=== PATIENT | female | born 1960 | race Caucasian/White ===

== ENCOUNTER 2023-02-05 08:59 | Outpatient (RCR) | payer OTHER, SELFPAY | END 2023-03-07 10:08 | disposition home or self-care (01) | LOC: PT 08:59 | PROVIDERS: PCP Family Medicine; Visit Provider Student in an Organized Health Care Education/Training Program | DX: M54.50 Low back pain, unspecified (principal) | CPT/HCPCS: 97012; 97110; 97112; 97140; 97162 ==

== ENCOUNTER 2023-03-25 12:40 | Emergency (ER) | payer OTHER, SELFPAY ==
[2023-03-25 12:45] VITALS: BP 148/78; PULSE 115; RESP 20; O2SAT 96; BMI 29.8
--- NOTE | 2023-03-25 12:50 | PC.NURSE ---
pt has had this pain for the last 5 months and states this is a new pain she has had for the last 3 weeks. States it is in hip area and worse when she sits down. pt able to walk but states the pain is worse with movement. pt was able to stand at bedside to put gown on unassisted. no new injury noted that caused this pain.
--- NOTE | 2023-03-25 12:59 | XR_ITS ---
The [place] [id number] Patient Name: REMINGTON SWEENEY MRN: [id number] date: 1960 Sex: F Assigned Patient Location: ER Current Patient Location: ER Accession/Order Number: [id number] Exam Date: 03/25/2023 13:08 Report Date: 03/25/2023 13:35 At the request of: JUSTYN ADKINS Procedure: XR hip RT 2V w/ pelvis EXAM: XR hip RT 2V w/ pelvis HISTORY: pain COMPARISON: None TECHNIQUE: Single view the pelvis, 2 views of the right hip. FINDINGS: Bones are of normal configuration, visualized joints are normally aligned, without fracture or dislocation. Soft tissues are grossly unremarkable. XR/XR hip RT 2V w/ pelvis IMPRESSION: No acute osseous abnormality. Electronically authenticated by: TANO REBOLLEDO Date: 03/25/2023 13:35
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
== END 2023-03-25 14:06 | disposition home or self-care (01) ==
PROVIDERS: Emergency Provider Student in an Organized Health Care Education/Training Program; PCP Family Medicine
DX: M25.551 Pain in right hip (principal); G89.29 Other chronic pain; Z79.899 Other long term (current) drug therapy
CPT/HCPCS: 73502; 99283

== ENCOUNTER 2023-05-03 10:58 | Emergency (ER) | payer OTHER, SELFPAY ==
[2023-05-03 11:03] VITALS: BP 154/109; PULSE 100; RESP 18; TEMP 36.7; O2SAT 97; BMI 28.0
--- NOTE | 2023-05-03 11:26 | XR_ITS ---
The [address] [address] Patient Name: REMINGTON SWEENEY MRN: [id number] date: 1960 Sex: F Assigned Patient Location: ER Current Patient Location: ED.MAIN Accession/Order Number: [id number] Exam Date: 05/03/2023 11:40 Report Date: 05/03/2023 13:07 At the request of: YOU BASS Procedure: XR lumbar spine 2-3V EXAM: XR lumbar spine 2-3V - HISTORY: pain, atraumatic COMPARISON STUDY: Lumbar spine 12/06/2022. FINDINGS: AP, lateral and coned-down views for 3 views obtained. XR/XR lumbar spine 2-3V IMPRESSION: 1. Moderate lumbar dextrocurvature centered at the L2 level again noted unchanged. The Braswell angle is estimated at 20 degrees. 2. Similar multilevel lumbar spondylitic/facet arthritic changes again identified. This is noted from L2-L3 through L5-S1 levels unchanged. 3. There is no acute fracture or subluxation noted. Vacuum disc phenomena formation is noted at L5-S1. Electronically authenticated by: MARIE CUETO Date: 05/03/2023 13:07
[2023-05-03] MEDS: KETOROLAC TROMETHAMINE 30 MG/ML VIAL IVP (11:35)
[2023-05-03] MEDS: ONDANSETRON PF 4 MG/2 ML VIAL IV (11:35)
--- NOTE | 2023-05-03 12:59 | ED.BACK1 ---
HPI - Back Pain/Injury General Chief Complaint: Back Pain/Injury Stated Complaint: BACK PAIN Time Seen by Provider: 05/03/23 11:10 Source: patient Mode of arrival: ambulance History of Present Illness HPI Narrative: 62-year-old female presents for lower back pain. She has a history of ongoing back issues and over the past day or two it seemed to get worse. No trauma. No dysuria or hematuria. The pain is moderate and worse in certain positions. Related Data Home Medications Medication Instructions Recorded Confirmed lithium carbonate 300 mg 300 mg PO TID 03/25/23 03/25/23 tablet,extended release oxcarbazepine 300 mg tablet 300 mg PO DAILY 03/25/23 03/25/23 oxcarbazepine 600 mg tablet 600 mg PO BEDTIME 03/25/23 03/25/23 venlafaxine 225 mg tablet,extended 225 mg PO DAILY 03/25/23 03/25/23 release 24 hr Previous Rx's Medication Instructions Recorded methylprednisolone 4 mg tablets in 4 mg PO DAILY #21 ea 03/25/23 a dose pack (Medrol (Michael)) acetaminophen 300 mg-codeine 30 mg 1 tab PO Q6H PRN pain #20 tabs 05/03/23 tablet cyclobenzaprine 10 mg tablet 10 mg PO TID PRN muscle spasm #20 05/03/23 tabs Allergies Allergy/AdvReac Type Severity Reaction Status Date / Time Penicillins Allergy Severe Verified 03/25/23 12:44 Review of Systems ROS Narrative review of systems Musculoskeletal Reports: back pain PFSH PFSH Social History Smoking status: Never smoker Exam Constitutional Vital Signs, click to edit/add: Last Vital Signs Temp 98.1 F 05/03/23 11:03 Pulse 100 H 05/03/23 11:03 Resp 18 05/03/23 11:03 BP 154/109 H 05/03/23 11:03 Pulse Ox 97 05/03/23 11:03 O2 Del Method Room Air 05/03/23 11:21 Course Vital Signs Vital signs: Vital Signs Temperature 98.1 F 05/03/23 11:03 Pulse Rate 100 H 05/03/23 11:03 Respiratory Rate 18 05/03/23 11:03 Blood Pressure 154/109 H 05/03/23 11:03 Pulse Oximetry 97 05/03/23 11:03 Oxygen Delivery Method Room Air 05/03/23 11:03 Temperature 98.1 F 05/03/23 11:03 Pulse Rate 100 H 05/03/23 11:03 Respiratory Rate 18 05/03/23 11:03 Blood Pressure 154/109 H 05/03/23 11:03 Pulse Oximetry 97 05/03/23 11:03 Oxygen Delivery Method Room Air 05/03/23 11:21 MDM - Back Pain/Injury MDM Narrative Medical decision making narrative: x-ray showed no acute findings. She'll be treated symptomatically and follow-up with her doctor. Treatment diagnosis and follow-up were discussed with the patient. Differential Diagnosis Differential diagnosis: Likely lumbar radiculopathy, sciatica and strain of lumbar region Imaging Data lumbosacral x-rays: Radiologist's impression: degenerative changes, no acute findings Discharge Plan Discharge Chief Complaint: Back Pain/Injury Clinical Impression: Low back pain Patient Disposition: Home, Self-Care Time of Disposition Decision: 12:55 Condition: Good Prescriptions / Home Meds: New cyclobenzaprine 10 mg tablet 10 mg PO TID PRN (Reason: muscle spasm) Qty: 20 0RF acetaminophen-codeine 300-30 mg tablet 1 tab PO Q6H PRN (Reason: pain) Qty: 20 0RF No Action lithium carbonate 300 mg tablet extended release 300 mg PO TID oxcarbazepine 300 mg tablet 300 mg PO DAILY oxcarbazepine 600 mg tablet 600 mg PO BEDTIME venlafaxine 225 mg tablet extended release 24hr 225 mg PO DAILY methylprednisolone [Medrol (Michael)] 4 mg tablets,dose pack 4 mg PO DAILY Qty: 21 0RF Rx Instructions: TAKE PER DOSEPAK INSTRUCTIONS Instructions: Back Pain (ED) Stand Alone Forms: Portal Instructions Referrals: Trista Alvarado MD [Primary Care Provider] - 1 week
[2023-05-03 13:15] VITALS: BP 145/81; PULSE 92; RESP 18; O2SAT 98
== END 2023-05-03 13:38 | disposition home or self-care (01) ==
PROVIDERS: Emergency Provider Emergency Medicine; PCP Family Medicine
DX: M54.50 Low back pain, unspecified (principal); Z79.899 Other long term (current) drug therapy
CPT/HCPCS: 72100; 96374; 96375; 99284

== ENCOUNTER 2023-05-15 09:14 | Outpatient (OUT) | payer OTHER, SELFPAY ==
--- NOTE | 2023-05-15 09:29 | MR_ITS ---
The [place] [id number] Patient Name: REMINGTON SWEENEY MRN: [id number] date: 1960 Sex: F Assigned Patient Location: MRI Current Patient Location: MRI Accession/Order Number: [id number] Exam Date: 05/15/2023 09:45 Report Date: 05/15/2023 15:15 At the request of: SEB BARRY Procedure: MR lumbar spine wo con MR lumbar spine wo con, 05/15/2023 9:45 AM EDT INDICATION: Right Lumbar Radiculopathy M54.16 COMPARISON: This study was compared to the prior x-ray dated 05/03/2023 TECHNIQUE: Multiplanar, multisequential MRI images of lumbar spine were obtained without contrast. FINDINGS: For dictation purposes, the lowest complete disc space in the lumbar spine considered as L5-S1. There is signal abnormality on T1 and T2-weighted images in the vertebral bodies of visualized spine that may suggest bone marrow reconversion in appropriate clinical setting. There is normal physiologic lumbar lordosis with dextroscoliosis centered on L2-L3. The vertebral height is preserved. The conus medullaris is at the level of L1. No signal abnormality within the visualized spinal cord is noted. Level of T12-L1 is unremarkable. No neural foraminal narrowing or canal stenoses at the level of L1-L2 and L2-L3 is noted. At the level of L3-4, there are disc bulge with superimposed right neuroforaminal disc protrusion with mild right neuroforaminal narrowing and no canal stenosis. At the level of L4-5, there are disc bulge with moderate right and mild left neuroforaminal narrowing and mild canal stenosis. There is facet joint arthrosis and ligamentum flavum flavum arthropathy at this level. At the level of L5-S1, there are disc bulge with superimposed right lateral neuroforaminal disc protrusion with mild right neuroforaminal narrowing and no canal stenosis. The paraspinal muscles are unremarkable. MR/MR lumbar spine wo con IMPRESSION: Mild degenerative changes of lumbar spine in particular at L4-L5. Electronically authenticated by: LEANDRO JANSEN Date: 05/15/2023 15:15
== END 2023-05-15 09:15 | disposition home or self-care (01) ==
LOC: MRI 09:15
PROVIDERS: PCP Family Medicine; Visit Provider Family Medicine
DX: M47.26 Other spondylosis with radiculopathy, lumbar region (principal)
CPT/HCPCS: 72148

== ENCOUNTER 2023-06-25 09:50 | Outpatient (OUT) | payer OTHER, SELFPAY ==
[2023-06-25 10:57] LABS: Chol HDL Ratio 3.2; Cholesterol 235 mg/dL (<=200); Estimated GFR (African America >60 (>=60); Estimated GFR (Non-African Ame 52 (>=60); Glucose 103 mg/dL (74-106); HDL Cholesterol 73 mg/dL (40-60); Thyroid Stimulating Hormone 1.955 uIU/mL (0.358-3.740); Triglycerides 163 mg/dL (<=150); VLDL CHOLESTEROL 32.6 mg/dL
[2023-06-26 08:12] LABS: Lithium (Eskalith(R)), Serum 1.2 mmol/L (0.5-1.2)
== END 2023-06-25 09:51 | disposition home or self-care (01) ==
LOC: LAB 09:53
PROVIDERS: PCP Family Medicine; Visit Provider Psychiatry & Neurology Psychiatry
DX: Z79.899 Other long term (current) drug therapy (principal); F31.9 Bipolar disorder, unspecified
CPT/HCPCS: 36415; 80061; 80178; 82565; 82947; 84443

== ENCOUNTER 2023-11-05 10:36 | Outpatient (OUT) | payer OTHER, SELFPAY ==
--- NOTE | 2023-11-05 10:42 | MM_ITS ---
Patient Name: REMINGTON SWEENEY MR#: [id number] : 1960 Exam Date: 11/05/2023 Ordering Doctor: DR Trista Alvarado M.D. CORRECTION Corrected on: 11/07/2023; RADIOLOGY REPORT PROCEDURE: MM TOMOSYNTHESIS DIAGNOSTIC BI COMPARISON: MG MAMM SCREEN 3D TOMY CAD, 11/14/2022. MG MAMM SCREEN 3D TOMY CAD, 11/07/2021. MG MAMM SCREEN 3D TOMY CAD, 11/06/2020. MG MAMM SCREEN 3D TOMY CAD, 09/02/2019. INDICATIONS: Lump on right nipple Calculator Name NCI Breast Cancer Risk Assessment Tool 5 Year Breast Cancer Risk 1.60% Lifetime Breast Cancer Risk 7.90% Personal Breast Cancer No Personal Ovarian Cancer No Treatments None Family Cancers Aunt-maternal with breast cancer at age ~52; Uncle-paternal with colon cancer at age 60. LOCATION: [facility] [place] BREAST COMPOSITION: Heterogeneously dense,which may obscure small masses. FINDINGS: DIAGNOSTIC CATEGORY 4--SUSPICIOUS FOR MALIGNANCY. FINDING DOES NOT EXHIBIT CLASSIC FINDINGS OF BREAST CANCER: RIGHT BREAST: Skin surface marker along medial side of nipple overlying a small 5 mm mass or contour irregularity. Small benign appearing lymph node within the lower-inner quadrant. Ultrasound evaluation demonstrates an 8 mm mass arising from the medial margin of the nipple. Surgical tissue sampling is recommended. LEFT BREAST: No significant suspicious finding. Scattered benign-appearing lymph nodes are present. RECOMMENDATIONS: SURGICAL BIOPSY: RIGHT BREAST PLEASE NOTE: A NORMAL MAMMOGRAM DOES NOT EXCLUDE THE POSSIBILITY OF BREAST CANCER. A CLINICALLY SUSPICIOUS PALPABLE LUMP SHOULD BE BIOPSIED. Dictated by: Marlon Moreira M.D. on 11/07/2023 at 09:17 Approved by: Marlon Moreira M.D. on 11/07/2023 at 09:46
--- NOTE | 2023-11-05 10:43 | US_ITS ---
Patient Name: REMINGTON SWEENEY MR#: [id number] : 1960 Exam Date: 11/05/2023 Ordering Doctor: DR Trista Alvarado M.D. RADIOLOGY REPORT PROCEDURE: US BREAST RT LIMITED COMPARISON: None. INDICATIONS: malignant neoplasm of mass of right breast Z12.31, N63.10 TECHNIQUE: Breast ultrasound was performed, with evaluation focusing only on specific areas of concern. FINDINGS: DIAGNOSTIC CATEGORY 4--SUSPICIOUS FOR MALIGNANCY. FINDING DOES NOT EXHIBIT CLASSIC FINDINGS OF BREAST CANCER: RIGHT BREAST: Within or arising from the medial aspect of the right nipple is an 8 x 7 x 4 mm soft tissue mass versus complex cyst; no posterior shadowing. Color Doppler suggest blood flow into the lesion. Mildly dilated duct 2 mm diameter immediately deep to this area. Small adjacent anechoic benign-appearing cyst, 5 millimeters diameter. Surgical tissue sampling is recommended. RECOMMENDATIONS: SURGICAL BIOPSY: RIGHT BREAST PLEASE NOTE: A NORMAL ULTRASOUND EXAMINATION DOES NOT EXCLUDE THE POSSIBILITY OF BREAST CANCER. A CLINICALLY SUSPICIOUS PALPABLE LUMP SHOULD BE BIOPSIED. Dictated by: Marlon Moreira M.D. on 11/07/2023 at 09:00 Approved by: Marlon Moreira M.D. on 11/07/2023 at 09:10
--- OUTSIDE RECORDS SUMMARY | 2023-11-05 10:57 | XMS_ITS | CCD ---
Author Organization [facility] Care Team Providers Care Control Operator Flow Coat Name Role Phone Gurpreet Calixto Unavailable Trista Barry Unavailable Goldy Glover Unavailable ASHA, DR TRISTA Reyes Attending Unavailable BARRY, DR TRISTA Reyes Consulting Unavailable BARRY, DR TRISTA Reyes Admitting Unavailable BARRY, DR TRISTA Reyes Admitting Unavailable WEST, DR MAKEDA Schneider Consulting Unavailable BARRY, DR TRISTA Reyes Attending Unavailable BARRY, DR TRISTA Reyes Consulting Unavailable LEXIE, REGULO Admitting Unavailable LEXIE, REGULO Attending Unavailable REGULO OWEN Consulting Unavailable ASHA, DR TRISTA Reyes Admitting Unavailable WEST, DR MAKEDA Schneider Consulting Unavailable BARRY, DR TRISTA Reyes Attending Unavailable BARRY, DR TRISTA Reyes Primary Care Unavailable BARRY, DR TRISTA Reyes Consulting Unavailable GOLDY GLOVER Admitting Unavailable GOLDY GLOVER Attending Unavailable ASHA, DR TRISTA Reyes Primary Care Unavailable GURPREET CALIXTO Attending Unavailable GURPREET CALIXTO Admitting Unavailable MD Helio Barry Attending Provider MD Trista Barry Primary Care Provider Helio Barry Unavailable Trista Barry Primary Care Unavailable Helio Barry Admitting Unavailable Helio Barry Attending Unavailable Pan Sanders Admitting Unavailab Pan Mendieta Attending Unavailab claudia NO FAMILY, PHYSICIAN Primary Care Unavailable Allergies Allergy Classification Reported Allergen(s) Allergy Type Date of Onset Reaction(s) Facility (5 sources) Penicillins Drug allergy [employer] Other (8 sources) [facility] Drug Allergy Unknown [facility] Other (8 sources) Substance with penicillin structure and antibacterial mechanism of action (substance) Drug allergy [employer] Other (1 source) metFORMIN Drug Allergy 4 [facility] (1 source) Penicillins Drug allergy (disorder) 4 [facility] Medications Current Medications Medication Drug Class(es) Dates Sig (Normalized) Sig (Original) aspirin 81 mg chewable tablet (7 sources) Platelet Aggregation Inhibitor, Nonsteroidal Anti-inflammatory Drug take 1 tablet by mouth every twenty-four hours Aspirin 81 MG 1 tablet Orally Once a day PRN Active calcium carbonate 1250 mg oral tablet (2 sources) take 1 tablet by mouth every twelve hours Calcium 500 MG 1 tablet with meals Orally Twice a day Active cyclobenzaprine hydrochloride 10 mg oral tablet (4 sources) Muscle Relaxant Cyclobenzaprine HCl 10 MG 1 tablet 3 times a day prn Active Folate (2 sources) Folate Active lithium carbonate 300 mg extended release oral tablet (18 sources) take 3 tablets by mouth at bedtime [place] Carbonate ER 300 MG 3 tablets Orally at HS for 90 days 900-1200 mg as needed Active take 4 tablets by mo uth every twenty-four hours [place] Carbonate ER 300 MG 4 tablets Orally Once a day for 90 days 900-1200 mg as needed Active LORazepam 0.5 mg oral tablet (7 sources) Benzodiazepine Start: 12-13-2021 take 1 tablet by mouth every twenty-four hours Ativan 0.5 MG 1 tablet at bedtime as needed Orally Once a day for 10 days f41.1 December, Active take 1 tablet by feliberto th every twenty-four hours Ativan 0.5 MG 1 tablet at bedtime as needed Orally Once a day for 4 days f41.1 Active Omeprazole (13 sources) Proton Pump Inhibitor Omeprazole OTC Active OXcarbazepine 600 mg oral tablet (19 sources) Anti-epileptic Agent take 1 tablet by mouth once daily, then take 1 tablet by mouth in the morning OXcarbazepine 600 MG take 1 tablet by mouth once daily 1 150mg tablet in the am for 90 days Active propranolol hydrochloride 10 mg oral tablet (7 sources) beta-Adrenergic Vic take 1 tablet by mouth every twelve hours Propranolol HCl 10 MG 1 tablet Orally Twice a day for 90 days Active RA Vitamin D-3 50 MCG (1999) (13 sources) take 1 capsule by mouth once daily RA Vitamin D-3 50 MCG (1999) take 1 capsule by mouth once daily for 90 Active sulfamethoxazole 800 mg / trimethoprim 160 mg oral tablet (2 sources) Dihydrofolate Reductase Inhibitor Antibacterial, Sulfonamide Antimicrobial Start: 023 take 1 tablet by mouth every twelve hours Bactrim DS 800-160 MG 1 tablet Orally Twice a day for 10 day(s) Nov, Active traMADol hydrochloride 50 mg oral tablet (6 sources) Opioid Agonist Start: 023 take 1 tablet by mouth once daily at bedtime as needed traMADol HCl 50 MG 1 tablet as needed Orally Once a day (QHS) for 7 days Mar, Active 24 hr venlafaxine 225 mg extended release oral tablet (13 sources) Serotonin and Norepinephrine Reuptake Inhibitor take 1 tablet by mouth every twenty-four hours Venlafaxine HCl ER 225 MG 1 tablet with food Orally Once a day for 90 days Active Vitamin B12 1000 MCG (2 sources) take 1 tablet by mouth once daily Vitamin B12 1000 MCG 1 tablet Orally Once a day Active Completed/Discontinued Medications Medication Drug Class(es) Dates Sig (Normalized) Sig (Original) cholecalciferol 0.05 mg oral capsule (18 sources) Vitamin D take 1 capsule by mouth once daily Vitamin D3 50 MCG (1999 UT) take 1 capsule by mouth once daily for 90 Not-Taking ciprofloxacin 3 mg/ml / dexamethasone 1 mg/ml otic suspension (13 sources) Corticosteroid, Quinolone Antimicrobial Start: 01-03-2021 Ciprodex 0.3-0.1 % 4 drops into affected ear Otic Twice a day for 7 day(s) December, Not-Taking melatonin 5 mg oral tablet (20 sources) Start: 09-19-2021 take 1 tablet by mouth once daily in the evening Melatonin 5 MG 1 tablet in the evening Orally Once a day for 30 day(s) Sep, Not-Taking Problems Active Problems Problem Classification Problem Date Documented Da te Episodic/Chronic Essential hypertension (3 sources) Essential (primary) hypertension; Translations: [Essential hypertension] Onset: 05-17-2022 Chronic Malaise and fatigue (11 sources) Fatigue; Translations: [Other fatigue] Onset: 05-17-2022 Episodic Menopausal disorders (2 sources) Menopausal and postmenopausal disorders; Translations: [Unspecified menopausal and perimenopausal disorder] Chronic Mood disorders (18 sources) Bipolar disorder; Translations: [Bipolar disorder, unspecified] Onset: 12-13-2021 Resolved: 02-27-2022 Chronic Other aftercare (8 sources) H/O: high risk medication; Translations: [Other longterm (current) drug therapy] Episodic Other aftercare (5 sources) Other intermediate manager (current) drug therapy; Translations: [OTH INTERMEDIATE CURRENT DRUG THERAPY] Onset: 05-17-2022 Episodic Other aftercare (2 sources) Long-term current use of drug therapy; Translations: [Other intermediate manager (current) drug therapy] Episodic Other bone disease and musculoskeletal deformities (2 sources) Adolescent idiopathic scoliosis; Translations: [Adolescent idiopathic scoliosis, lumbosacral region] Chronic Other bone disease and musculoskeletal deformities (1 source) Adolescent idiopathic scoliosis, lumbosacral region Chronic Other circulatory disease (2 sources) Elevated blood-pressure reading without diagnosis of hypertension; Translations: [Elevated blood-pressure reading, without diagnosis of hypertension] Episodic Other nervous system disorders (7 sources) Chronic pain; Translations: [Other chronic pain] Chronic Other nervous system disorders (1 source) Other chronic pain Chronic Other non-traumatic joint disorders (1 source) Pain in right hip Episodic Other nutritional; endocrine; and metabolic disorders (2 sources) Body mass index 25-29 - overweight; Translations: [Body mass index (BMI) 29.0-29.9, adult] Episodic Other screening for suspected conditions (not mental disorders or infectious disease) (4 sources) Encounter for screening mammogram for malignant neoplasm of breast; Translations: [ENC SCR MAMMO MALIG NEOPLASM BREAST] Onset: 11-14-2022 Episodic Otitis media and related conditions (2 sources) Non-suppurative otitis media; Translations: [Unspecified nonsuppurative otitis media, left ear] Episodic Residual codes; unclassified (1 source) Family history of malignant neoplasm of breast; Translations: [FAMILY HX MALIG NEOPLASM OF BREAST] Onset: 11-23-2022 Episodic Residual codes; unclassified (1 source) Family history of malignant neoplasm of digestive organs; Translations: [FAM HX MALIG NEOPLASM DIGESTIV ORGN] Onset: 11-23-2022 Episodic Residual codes; unclassified (2 sources) Tobacco user; Translations: [Tobacco use] Episodic Spondylosis; intervertebral disc disorders; other back problems (8 sources) Solitary sacroiliitis; Translations: [Sacroiliitis, not elsewhere classified] Chronic Spondylosis; intervertebral disc disorders; other back problems (1 source) Radiculopathy, lumbar region Episodic Unclassified (3 sources) LOW BACK PAIN, UNSPECIFIED; Translations: [LOW BACK PAIN, UNSPECIFIED] Onset: 12-12-2022 Unclassified (1 source) Low back pain, unspecified; Translations: [Low back pain, unspecified] Onset: 05-29-2023 Past or Other Problems Problem Classification Problem Date Documented Da te Episodic/Chronic Unclassified (1 source) Lumbar pain M54.50 Unclassified (1 source) Other low back pain M54.59 Unclassified (1 source) LOW BACK PAIN, UNSPECIFIED; Translations: [LOW BACK PAIN, UNSPECIFIED] Onset: 12-06-2022 Results Test Name Value Interpretation Reference Range Facility XR lumbar spine 6V w bending on 05-29-2023 XR lumbar spine 6V w bending [facility] [address] XRay Report Signed Patient: Rain Sweeney MR#: [id number] : 1960 Acct:[id number] Age/Sex: 62 / F ADM Date: 05/29/23 Loc: XD Room: Type: [facility] Attending Dr: Helio Barry MD Copies to: Helio Barry MD Ordering Provider: Helio Barry MD Date of Service: 05/29/23 XR/XR lumbar spine 6V w bending: M54.50 6 views of the Lumbar Spinewith bending HISTORY: Low back injury. Right leg numbness and tingling COMPARISON: 05/03/2023 POSTSURGICAL CHANGES: None BONY ALIGNMENT: Adequate FRACTURE: None DEGENERATIVE CHANGES: Similar moderate multilevel spondylosis and facet degeneration. SOFT TISSUES: Unremarkable BONY MINERALIZATION:[place] te XR/XR lumbar spine 6V w bending IMPRESSION: No hypermobility. Moderate scoliosis. Degenerative change. Impression dictated by: Andrea Nina M.D.05/29/2023 7:00 PM Dictation Location: [place] [address] Transcribed By: [facility] 05/29/231899 Dictated By: Andrea Nina DO 05/29/23 2330 Signed By: 05/29/231899 [facility] XR LSPINE 2_3 VIEWSon 2022 XR LSPINE 2_3 VIEWS EXAMINATION: XR LSPINE 2_3 VIEWS HISTORY: Low back pain COMPARISON: No relevant comparison available. FINDINGS: BONES: Rotatory dextrocurvature of the lumbosacral spine centered at L3-L4. Mild degenerative spondylosis and facet osteoarthropathy DISC SPACES: Mild widespread disc height narrowing. PARASPINOUS: Negative. No paraspinous abnormality is seen. OTHER: Negative. IMPRESSION: Rotatory dextrocurvature with degenerative changes Electronically authenticated by: MAKEDA MÁRQUEZ Date: 2022-12-06 11:24 Normal [facility] LITHIUMon 11-27-2022 [place] (Eskalith(R)), Serum 0.8 mmol/L Normal 0.5-1.2 [facility] Comment on above: Result Comment: A co ncentration of 0.5-0.8 mmol/L is advised for long-term use; concentrations of up to 1.2 mmol/L may be necessary during acute treatment. Detection Limit = 0.1 <0.1 indicates None Detected Performed By: #### L ITHIUM ####[facility] [id number] [place] [address]Dr. Laurel Buckner CREATININEon 11-26-2022 Creatinine [Mass/Vol] 0.97 mg/dL Normal 0.55-1.02 [facility] Comment on above: Performed By: #### T NELLIE NOVAK #### [facility] [address] [place] [address] [address] Laurel Buckner EGFR-AF BENINESE >60 Normal >=60 [facility] Comment on above: Performed By: #### T KISHORE CREA #### [facility] [address] [place] [address] [address] Laurel Buckner EGFR-NON AF BENINESE 59 mL/min/1.73m2 Critically low >=60 [facility] Comment on above: Performed By: #### T KISHORE CREA #### [facility] [address] [place] [address] [address] Laurel Buckner TSHon 11-26-2022 TSH 1.616 uIU/mL Normal 0.358-3.740 [facility] Comment on above: Performed By: #### T SH, CREA #### [facility] [address] [address] [address] Laurel Buckner MG MAMM SCREEN 3D TOMY CADon 11-14-2022 MG MAMM SCREEN 3D TOMY CAD Patient: RAIN SWEENEY Exam Date: 11/14/2022 : 1960 Gender:F Ordering : DR TRISTA BARRY M.D. Admission #: [id number] Family : Order #: [id number] CLICK HERE TO VIEW EXAM RADIOLOGY REPORT PROCEDURE: MAMMOGRAM SCREENING 3D BILATERAL CAD COMPARISON: MG MAMM SCREEN 3D TOMY CAD, 11/06/2020. MG MAMM SCREEN 3D TOMY CAD, 11/07/2021. INDICATIONS: Screening mammography Calculator Name NCI Breast Cancer Risk Assessment Tool 5 Year Breast Cancer Risk 1.60% Lifetime Breast Cancer Risk 8.10% Personal Breast Cancer No Personal Ovarian Cancer No Treatments None Family Cancers Aunt-maternal with breast cancer at age 52; Uncle-paternal with colon cancer at age 60. LOCATION: [facility] BREAST COMPOSITION: Heterogeneously dense,which may obscure small masses. FINDINGS: DIAGNOSTIC CATEGORY 2--BENIGN FINDING. NO CHANGE FROM COMPARISON. This exam includes additional mammographic views for implant evaluation and shows no visible implant abnormality. Scattered benign-appearing calcifications are present. RIGHT BREAST: No significant suspicious finding. LEFT BREAST: No significant suspicious finding. RECOMMENDATIONS: ROUTINE MAMMOGRAM AND CLINICAL EVALUATION IN 12 MONTHS. PLEASE NOTE: A NORMAL MAMMOGRAM DOES NOT EXCLUDE THE POSSIBILITY OF BREAST CANCER. A CLINICALLY SUSPICIOUS PALPABLE LUMP SHOULD BE BIOPSIED. Dictated by: Makeda Márquez MD on 11/14/2022 at 12:01 Approved by: aMkeda Márquez MD on 11/14/2022 at 12:03 Normal [facility] LITHIUMon 05-16-2022 [place] (Eskalith(R)), Serum 0.8 mmol/L Normal 0.5-1.2 [facility] Comment on above: Result Comment: Plas ma concentration of 0.5 - 0.8 mmol/L are advised for long-term use; concentrations of up to 1.2 mmol/L may be necessary during acute treatment. Detection Limit = 0.1 <0.1 indicates None Detected Performed By: #### L ITHIUM #### [facility] [address] [place] [address] [address] Laurel Buckner CBC AUTO DIFFon 05-15-2022 BASO # 0.1 103/ul Normal 0.0-0.1 [facility] Comment on above: Performed By: #### C BC #### [facility] [address] [address] [address] Laurel Buckner Basophils/100 WBC (Bld) 1.0 % Normal 0.2-2.0 [facility] Comment on above: Performed By: #### C BC #### [facility] [address] [place] [address] [address] Laurel Buckner EO # 0.4 103/ul Normal 0.0-0.7 [facility] Comment on above: Performed By: #### C BC #### [facility] [address] [place] [address] Dr. Laurel Buckner Eosinophils/100 WBC (Bld) 5.3 % Normal 0.9-7.0 [facility] Comment on above: Performed By: #### C BC #### [facility] [address] [place] [address] Dr. Laurel Buckner Erythrocyte distribution width (RBC) [Ratio] 13.8 % Normal 11.0-15.0 [facility] Comment on above: Performed By: #### C BC #### [facility] [address] [place] [address] Dr. Laurel Buckner Hematocrit (Bld) [Volume fraction] 46.8 % Normal 36.0-48.0 [facility] Comment on above: Performed By: #### C BC #### [facility] [address] [place] [address] Dr. Laurel Buckner Hemoglobin (Bld) [Mass/Vol] 14.8 g/dL Normal 12.0-16.0 [facility] Comment on above: Performed By: #### C BC #### [facility] [address] [place] [address] Dr. Laurel Buckner IG # 0.07 10e3/ul Critically high 0.00-0.03 [facility] Comment on above: Performed By: #### C BC #### [facility] [address] [place] [address] Dr. Laurel Buckner IG % 1.0 % Critically high 0.0-0.5 [facility] Comment on above: Performed By: #### C BC #### [facility] [address] [place] [address] Dr. Laurel Buckner LYMPH # 1.7 103/ul Normal 1.2-3.8 [facility] Comment on above: Performed By: #### C BC #### [facility] [address] [place] [address] Dr. Laurel Buckner Lymphocytes/100 WBC (Bld) 25.4 % Normal 20.5-60.0 [facility] Comment on above: Performed By: #### C BC #### [facility] [address] [place] [address] Dr. Laurel Buckner MANUAL DIFF REQ NO Normal [facility] Comment on above: Performed By: #### C BC #### [facility] [address] [place] [address] Dr. Laurel Buckner MCH (RBC) [Entitic mass] 29.5 pg Normal 26.7-34.0 [facility] Comment on above: Performed By: #### C BC #### [facility] [address] [place] [address] Dr. Laurel Buckner MCHC (RBC) [Mass/Vol] 31.6 g/dL Normal 29.9-35.2 [facility] Comment on above: Performed By: #### C BC #### [facility] [address] [place] [address] Dr. Laurel Buckner MCV (RBC) [Entitic vol] 93.4 fL Normal 81.0-99.0 [facility] Comment on above: Performed By: #### C BC #### [facility] [address] [place] [address] Dr. Laurel Buckner MONO # 0.6 103/ul Normal 0.3-0.8 [facility] Comment on above: Performed By: #### C BC #### [facility] [address] [place] [address] Dr. Laurel Buckner Monocytes/100 WBC (Bld) 8.4 % Normal 1.7-12.0 [facility] Comment on above: Performed By: #### C BC #### [facility] [address] [place] [address] Dr. Laurel Buckner NEUT # 4.0 103/ul Normal 1.4-6.5 [facility] Comment on above: Performed By: #### C BC #### [facility] [address] [place] [address] Dr. Laurel Buckner Neutrophils/100 WBC (Bld) 58.9 % Normal 43.0-75.0 [facility] Comment on above: Performed By: #### C BC #### [facility] [address] [place] [address] Dr. Laurel Buckner Platelet mean volume (Bld) [Entitic vol] 10.1 fL Normal 9.5-13.5 [facility] Comment on above: Performed By: #### C BC #### [facility] [address] [place] [address] Dr. Laurel Buckner PLT 279 103/ul Normal 150-450 [facility] Comment on above: Result Comment: smea r reviewed Performed By: #### C BC #### [facility] [address] [place] [address] Dr. Laurel Buckner RBC 5.01 106/ul Normal 4.20-5.40 [facility] Comment on above: Performed By: #### C BC #### [facility] [address] [place] [address] Dr. Laurel Buckner WBC 6.8 103/ul Normal 4.0-11.0 [facility] Comment on above: Performed By: #### C BC #### [facility] [address] [place] [address] Dr. Laurel Buckner GLYCOHEMOGLOBIN A1Con 2021 ADA RECOMMENDATION SEE BELOW Normal [facility] Comment on above: Result Comment: ADA RECOMMENDED LIMIT 4.0 - 6.0 ADA THERAPEUTIC TARGET < 7.0 ACTION SUGGESTED > 7.0 Performed By: #### A 1C #### [facility] [address] [address] [address] Laurel Buckner Glucose [Mass/Vol] 97 mg/dL Normal [facility] Comment on above: Performed By: #### A 1C #### [facility] [address] [address] [address] Laurel Buckner HbA1c (Bld) [Mass fraction] 5.0 % Normal 4.5-6.2 [facility] Comment on above: Performed By: #### A 1C #### [facility] [address] [address] [address] Laurel Bucnker LIPID PROFILEon 05-15-2022 CHOL-HDL RATIO NORM SEE BELOW Normal [facility] Comment on above: Result Comment: 3.3 - 4.4 LOW RISK 4.4 - 7.1 AVERAGE RISK 7.1 - 11.0 MODERATE RISK >11.0 HIGH RISK Performed By: #### L IPID, TSH, CMP #### [facility] [address] [address] [address] Laurel Buckner Cholesterol [Mass/Vol] 279 mg/dL Critically high <=200 [facility] Comment on above: Performed By: #### L IPID, TSH, CMP #### [facility] [address] [place] [address] Dr. Laurel Buckner Cholesterol in HDL [Mass/Vol] 76 mg/dL Critically high 40-60 [facility] Comment on above: Performed By: #### L IPID, TSH, CMP #### [facility] [address] [address] [address] Laurel Buckner Cholesterol in LDL [Mass/Vol] 162.8 mg/dL Normal [facility] Comment on above: Performed By: #### L IPID, TSH, CMP #### [facility] [address] [place] [address] Dr. Laurel Buckner Cholesterol.total/Ch olesterol in HDL [Mass ratio] 3.7 {ratio} Normal [facility] Comment on above: Performed By: #### L IPID, TSH, CMP #### [facility] [address] [address] [address] Laurel Buckner HDL NORMAL > or = 60 mg/dl - LO W CARDIOVASCULAR RISK <40 mg/dl - HIGH CARDIOVASCULAR RISK Normal [facility] Comment on above: Performed By: #### L IPID, TSH, CMP #### [facility] [address] [address] [address] Laurel Buckner LDL CALC NORMAL SEE BELOW Normal [facility] Comment on above: Result Comment: <100 mg/dl OPTIMAL 100 - 129 mg/dl NEAR OR ABOVE OPTIMAL 130 - 159 mg/dl BORDERLINE HIGH 160 - 189 mg/dl HIGH >190 mg/dl VERY HIGH Performed By: #### L IPID, TSH, CMP #### [facility] [address] [address] [address] Laurel Buckner Triglyceride [Mass/Vol] 201 mg/dL Critically high <=150 [facility] Comment on above: Performed By: #### L IPID, TSH, CMP #### [facility] [address] [place] [address] Dr. Laurel Buckner VLDL CALC 40.2 mg/dL Normal [facility] Comment on above: Performed By: #### L IPID, TSH, CMP #### [facility] [address] [place] [address] Dr. Laurel Buckner PROF 14(COMP METB)on 022 Albumin [Mass/Vol] 3.6 g/dL Normal 3.4-5.0 [facility] Comment on above: Performed By: #### L IPID, TSH, CMP #### [facility] [address] [address] [address] Laurel Buckner Albumin/Globulin [Mass ratio] 0.9 {ratio} Normal [facility] Comment on above: Performed By: #### L IPID, TSH, CMP #### [facility] [address] [place] [address] Dr. Laurel Buckner ALP [Catalytic activity/Vol] 110 U/L Normal 46-116 [facility] Comment on above: Performed By: #### L IPID, TSH, CMP #### [facility] [address] [place] [address] Dr. Laurel Buckner ALT [Catalytic activity/Vol] 22 U/L Normal 14-59 [facility] Comment on above: Performed By: #### L IPID, TSH, CMP #### [facility] [address] [address] [address] Laurel Buckner Anion gap [Moles/Vol] 10.8 mmol/L Normal [facility] Comment on above: Performed By: #### L IPID, TSH, CMP #### [facility] [address] [address] [address] Laurel Buckner AST [Catalytic activity/Vol] 11 U/L Critically low 15-37 [facility] Comment on above: Performed By: #### L IPID, TSH, CMP #### [facility] [address] [place] [address] Dr. Laurel Buckner Bilirubin [Mass/Vol] 0.3 mg/dL Normal 0.2-1.0 [facility] Comment on above: Performed By: #### L IPID, TSH, CMP #### [facility] [address] [place] [address] Dr. Laurel Buckner Calcium [Mass/Vol] 9.1 mg/dL Normal 8.5-10.1 [facility] Comment on above: Performed By: #### L IPID, TSH, CMP #### [facility] [address] [place] [address] Dr. Laurel Buckner Chloride [Moles/Vol] 103 mmol/L Normal 98-107 [facility] Comment on above: Performed By: #### L IPID, TSH, CMP #### [facility] [address] [place] [address] Dr. Laurel Buckner CO2 [Moles/Vol] 27.9 mmol/L Normal 21.0-32.0 [facility] Comment on above: Performed By: #### L IPID, TSH, CMP #### [facility] [address] [place] [address] Dr. Laurel Buckner Creatinine [Mass/Vol] 0.96 mg/dL Normal 0.55-1.02 [facility] Comment on above: Performed By: #### L IPID, TSH, CMP #### [facility] [address] [address] [address] Laurel Buckner EGFR-AF BENINESE >60 Normal >=60 [facility] Comment on above: Performed By: #### L IPID, TSH, CMP #### [facility] [address] [address] [address] Laurel Buckner EGFR-NON AF BENINESE 59 mL/min/1.73m2 Critically low >=60 [facility] Comment on above: Performed By: #### L IPID, TSH, CMP #### [facility] [address] [address] [address] Laurel Buckner Globulin (S) [Mass/Vol] 3.9 g/dL Normal [facility] Comment on above: Performed By: #### L IPID, TSH, CMP #### [facility] [address] [address] [address] Laurel Buckner Glucose [Mass/Vol] 90 mg/dL Normal 74-106 [facility] Comment on above: Performed By: #### L IPID, TSH, CMP #### [facility] [address] [address] [address] Laurel Buckner Potassium [Moles/Vol] 3.7 mmol/L Normal 3.5-5.1 [facility] Comment on above: Performed By: #### L IPID, TSH, CMP #### [facility] [address] [address] [address] Laurel Buckner Protein [Mass/Vol] 7.5 g/dL Normal 6.4-8.2 [facility] Comment on above: Performed By: #### L IPID, TSH, CMP #### [facility] [address] [address] [address] Laurel Buckner Sodium [Moles/Vol] 138 mmol/L Normal 136-145 [facility] Comment on above: Performed By: #### L IPID, TSH, CMP #### [facility] [address] [address] [address] Laurel Buckner Urea nitrogen [Mass/Vol] 16.0 mg/dL Normal 7.0-18.0 [facility] Comment on above: Performed By: #### L IPID, TSH, CMP #### [facility] [address] [place] [address] Dr. Laurel Buckner Urea nitrogen/Creatinine [Mass ratio] 16.7 mg/mg Normal [facility] Comment on above: Performed By: #### L IPID, TSH, CMP #### [facility] [address] [address] [address] Laurel Buckner TSHon 05-15-2022 TSH 3.094 uIU/mL Normal 0.358-3.740 [facility] Comment on above: Performed By: #### L IPID, TSH, CMP #### [facility] [address] [place] [address] Dr. Laurel Buckner Vital Signs Date Time Vital Sign Value Performing Clinician Facility 05-29-2023 14:00-0400 Body height 170.18 cm Helio Barry Other [facility] Other 05-29-2023 14:00-0400 Body mass index (BMI) [Ratio] 29.44 kg/m2 Helio Barry Other [facility] Other 05-29-2023 14:00-0400 Body weight 85.28 kg Helio Barry Other [facility] Other 05-05-2023 08:30-0400 Body height 170.18 cm Trista Barry Other [facility] Other 05-05-2023 08:30-0400 Body mass index (BMI) [Ratio] 29.44 kg/m2 Trista Barry Other [facility] Other 05-05-2023 08:30-0400 Body weight 85.28 kg Trista Barry Other [facility] Other 05-05-2023 08:30-0400 Diastolic blood pressure 82 mm[Hg] Trista Barry Other [facility] Other 05-05-2023 08:30-0400 Systolic blood pressure 128 mm[Hg] Trista Barry Other [facility] Other 04-01-2023 10:00-0400 Body height 170.18 cm Trista Barry Other [facility] Other 04-01-2023 10:00-0400 Body mass index (BMI) [Ratio] 29.13 kg/m2 Trista Barry Other [facility] Other 04-01-2023 10:00-0400 Body weight 84.37 kg Trista Barry Other [facility] Other 04-01-2023 10:00-0400 Diastolic blood pressure 86 mm[Hg] Trista Barry Other [facility] Other 04-01-2023 10:00-0400 Systolic blood pressure 148 mm[Hg] Trista Barry Other [facility] Other Encounters Encounter Date Encounter Type Care Provider Facility Start: 09-09-2023 ambulatory Pan Macias acility:[facility] Start: 05-30-2023 End: 05-30-2023 ambulatory Helio Barry Other [facility] Other Start: 05-30-2023 Telephone encounter Helio MORIN [employer] Start: 05-29-2023 End: 05-29-2023 ambulatory Trista Barry Facility:[facility] Start: 05-29-2023 Office outpatient ne w 30 minutes Helio MORIN [facility] Start: 05-29-2023 End: 05-29-2023 ambulatory MD Trista Barry Work Phone: [facility] Work Phone: Start: 05-29-2023 End: 05-29-2023 Patient encounter procedure MD Trista Barry Work Phone: [facility] Work Phone: Start: 05-16-2023 End: 05-16-2023 ambulatory Trista Barry Other [facility] Other Start: 05-16-2023 Telephone encounter Trista Barry [facility] Start: 05-05-2023 End: 05-05-2023 ambulatory Trista Barry Other [facility] Other Start: 05-05-2023 Office outpatient visit 15 minutes Trista Barry [facility] Start: 04-07-2023 End: 04-07-2023 ambulatory Trista Barry Other [facility] Other Start: 04-07-2023 Telephone encounter Trista Barry [facility] Start: 04-01-2023 End: 04-01-2023 ambulatory Trista Barry Other [facility] Other Start: 04-01-2023 Office outpatient visit 15 minutes Trista Barry [facility] Start: 12-27-2022 ambulatory GOLDY GLOVER Facility: [facility] Start: 12-23-2022 End: 12-23-2022 ambulatory Goldy Glover Other [facility] Other Start: 12-23-2022 Office outpatient ne w 45 minutes Goldy Glover [facility] Start: 12-06-2022 Telephone encounter Trista Barry [facility] Start: 12-06-2022 End: 12-07-[address] TRISTA BARRY [facility] Other Start: 11-26-2022 End: 11-27-2022 ambulatory REGULO OWEN Facility:[facility] Start: 11-14-2022 End: 11-15-[address] TRISTA BARRY Facility:[facility] Start: 05-17-2022 Encounter for genera l adult medical examination without abnormal findings DR TRISTA BARRY [facility] Start: 05-15-2022 End: 05-16-[address] TRISTA BARRY Facility:[facility] Start: 05-15-2022 End: 05-16-2022 Encounter for general adult medical examination without abnormal findings DR TRISTA BARRY Facility:[facility] Start: 05-14-2022 Adult health examination Trista Barry Other [facility] Other Start: 04-18-2022 End: 04-18-2022 ambulatory Gurpreet Marily Other [facility] Other Start: 04-18-2022 Telephone encounter Gurpreet Marily [facility] Start: 02-27-2022 End: 02-27-2022 ambulatory Gurpreet Marily Other [facility] Other Start: 02-27-2022 Telephone encounter Gurpreet Marily [facility] [employer] Start: 02-05-2022 ambulatory GURPREET MARILY Facility:[facility] Start: 12-13-2021 End: 12-13-2021 ambulatory Gurpreet Marily Other [facility] Other Start: 12-13-2021 Telephone encounter Gurpreet Marily [facility] Start: 09-19-2021 End: 09-19-2021 ambulatory Gurpreet Marily Other [facility] Other Start: 09-19-2021 Telephone encounter Gurpreet Marily [facility] Start: 09-05-2021 End: 09-05-2021 ambulatory Gurpreet Marily Other [facility] Other Start: 09-05-2021 Telephone encounter Gurpreet Marily [facility] Procedures Date Procedure Procedure Detail Performing Clinician Start: 05-29-2023 X-ray of lumbar spin e, six views including bending views MD Trista Barry Work Phone: Screening for malign ant neoplasm of breast Trista Barry Other Screening for malign ant neoplasm of colon Trista Barry Other Immunizations Immunization Date Immunization Notes Care Provider Fa ciliafia 10-12-2022 influenza, injectabl e, quadrivalent, preservative free Trista Barry Other [facility] Other 02-19-2022 diphtheria, tetanus toxoids and acellular pertussis vaccine, unspecified formulation Trista Barry Other [facility] Other 02-19-2022 tetanus toxoid, redu val diphtheria toxoid, and acellular pertussis vaccine, adsorbed Trista Barry Other [facility] Other 08-07-2021 COVID-19 Vaccine Moderna - Documentation Purposes Only Trista Barry Other [facility] Other 05-28-2021 influenza virus vaccine, split virus (incl. purified surface antigen) Trista Barry Other [facility] Other 12-09-2020 COVID-19 Vaccine Moderna - Documentation Purposes Only Trista Barry Other [facility] Other 11-11-2020 COVID-19 Vaccine Moderna - Documentation Purposes Only Trista Barry Other [facility] Other Payers Date Payer Category Payer Unknown [id number] 2.16.84 [id number] 1960 Unknown [id number] 2.16.84 [id number] 1960 Unknown [id number] 2.16.84 [id number] 1960 Unknown [id number] 2.16.84 [id number] 1960 Unknown [id number] 2.16.84 [id number] 1960 Unknown [id number] 2.16.84 [id number] 1957 Private Health Insurance [id number] 1959 Private Health Insurance [id number] Self-pay [facility] [id number] Unknown [id number] 2.16.8 [id number] Social History Date Type Detail Facility Sex Assigned At [facility] Other Start: 1960 Sex Assigned At Female F [facility] Clinical Notes 12-13-2021 to 05-29-2023 Note Date & Type Note Facility 05-29-2023 Evaluation note Encounter Date Diagnosis Assessment Notes May, Adolescent idiopathic scoliosis of lumbosacral spine (ICD-10 - M41.127) Independently reviewed the MRI of the lumbar spine and the plain x-ray of the lumbar spine. This patient complains of basically a L1 radiculopathy down the posterior leg buttock to posterior thigh rarely going past the knee.The patient has exquisite palpable tenderness around the posterior hip joint and negative Brandon's findings. I think this is more of a piriformis gluteus medius tendinous type pain that which reflects in a radiculopathy and a lot of localized pain. I think pain management can help with injections in this area and I sent her to pain management doctor who I personally communicated with and discussed with him the problem. In addition I will send her to orthopedics who may be sympathetic to this problem who may be able to offer some advice. [facility] Other 09-25-2023 Evaluation note* Encounter Date Diagnosis Assessment Notes Treatment Notes Treatment Clinical Notes Apr, Right lumbar radiculopathy (ICD-10 - M54.16) Presently in PT - discharged on 05/02. Requests MRI and referral. [facility] Other 08-22-2023 Evaluation note* Encounter Date Diagnosis Assessment Notes Treatment Notes Treatment Clinical Notes Mar, Right hip pain (ICD-10 - M25.551) PT paper given to pt. Handout for home stretches given as well. Tramadol to help her sleep. She understands it is a controlled substance and could be sedating. [facility] Other 05-15-2023 Evaluation note* Encounter Date Diagnosis Assessment Notes Treatment Notes Treatment Clinical Notes December, Sacroiliitis (ICD-10 - M46.1) Patients primary complaint today is right low lumbar and gluteal pain, which appears consistent with the sacroiliac region upon exam. We will start treatment conservatively. I will refer the patient to physical therapy for further treatment. Should her symptoms persist folllowing therapy, we can consider proceeding with sacroiliac joint injections. We will follow up with the patient in six weeks, sooner if needed. Anatomy of spine discussed in detail with patient in regards to patients condition. December, Other low back pain (ICD-10 - M54.59) December, Other chronic pain (ICD-10 - G89.29) December, Other Above note written by Morris Flor MA, Sand Worker. Edited and approved by Dr. Goldy Glover MD. Medical decision making shows a new problem to me with further workup planned or suggested with the potential for extensive treatment options that were considered with the most applicable given this patient's situation as noted above. Treatment options considered include a combination of physical therapy approaches, pharmacologic management, and interventional procedures. Those most applicable to the patient were discussed at this time. Risk of complications and/or morbidity and mortality is high given that acute and chronic pain poses a threat to life and bodily function if undertreated, poorly treated or with failure to maintain adequate treatment and timely followup. Given the serious and fluctuating nature of pain with extensive consideration for whenever pain changes, there always remains the possibility of prolonged functional impairment requiring constant patient reassessment and high-level medical decision making. The amount and complexity of data reviewed is high given that patient labs, radiology reports, and other test were obtained, reviewed and summarized as applicable from the physician portal and/or outside medical records. Pertinent positive and negative findings were considered in medical decision-making. [facility] Other 04-28-2023 Evaluation note* Encounter Date Diagnosis Assessment Notes Treatment Notes Treatment Clinical Notes Nov, Lumbar pain (ICD-10 - M54.50) [facility] Other 07-20-2022 Evaluation note* Encounter Date Diagnosis Assessment Notes Treatment Notes Treatment Clinical Notes Feb, Bipolar 1 disorder, depressed (ICD-10 - F31.9) [facility] Other 05-05-2022 Evaluation note* Encounter Date Diagnosis Assessment Notes Treatment Notes Treatment Clinical Notes December, Bipolar 1 disorder, depressed (ICD-10 - F31.9) [facility] Other Evaluation noteNo InformationNort Whim Other Evaluation noteNo assessment information available [facility] Work Phone: Hismlyy general Narrative - Reported* Type Description Date Medical History bipolar disorder Medical History anxiety disorder Medical History high blood pressure Surgical History 2 boul ligation 2000 Surgical History stepidectomy 2008 Surgical History sinus surgery 2014 Hospitalization History See surgical hx Hospitalization History [facility] Other Hisvegl general Narrative - Reported* Type Description Date Medical History bipolar disorder Medical History anxiety disorder Medical History high blood pressure Medical History Fatigue Medical History High risk medication use Surgical History 2 boul ligation 2000 Surgical History stepidectomy 2009 Surgical History sinus surgery 2015 Surgical History LUBAL LIGATION Hospitalization History See surgical hx Hospitalization History [facility] Other Hiskgrt general Narrative - Reported* Type Description Date Medical History bipolar disorder Medical History anxiety disorder Medical History high blood pressure Medical History Fatigue Medical History High risk medication use Medical History heart disease Medical History high cholesterol Medical History chronic depression Medical History obesity Surgical History 2 boul ligation 2000 Surgical History stapedectomy 2009 Surgical History sinus surgery 2015 Surgical History LUBAL LIGATION Hospitalization History See surgical hx Hospitalization History [facility] Other Reason for Referral Reason piriformis pain Diagnosis 1 Adolescent idiopathi c scoliosis of lumbosacral spine (M41.127) Referral Organization [facility] Referring Provider First Name Helio Referring Provider Last Name Asha Referring Provider Specialty Neurologica l Surgery Referred Organization [facility] Referred Provider Danny Solares Referred Address [address] [place],[address] Referred Provider Specialty Orthopaedic Surgery Referral Priority Routine Reason Requests Dr. Cadet Br aun - MRI pending. Went to [facility] and had xrays on 05/05. Diagnosis 1 Right lumbar radicul opathy (M54.16) Referral Organization [facility] Beauty Noted lauren Referring Provider First Name Trista Referring Provider Last Name Asha Referring Provider Specialty Family Medi cine Referred Organization [facility] Neurosurgery [facility] Referred Address [address], [place],[address] Referred Provider Specialty Neurological Surgery Referral Priority Routine Reason No preference on off ice - Lumbar pain - recent OV and xray - thanks Diagnosis 1 Lumbar pain (M54.50) Referral Organization [facility] [employer] Not[employer] lauren Referring Provider First Name Trista Referring Provider Last Name Asha Referring Provider Specialty Family Medi cine Referred Organization Unknown Facility Referred Provider Specialty Pain Medicin e Referral Priority Routine Summary Purpose Family History No Family History Records FoundNo Family History Records Found Advance Directives No Advanced Directives Records Found Advance Directive Response Recorded Date/ Time Advance Directives No May 29, 2023 12:42pm Chief Complaint and Reason for Visit Chief Complaint m54.50 Additional Source Comments REASON FOR VISIT (unrecogniz ed section and content) cancelled apptupdateupdate/r efillRefillsreferrallumbar xrayREF BY DR TRISTA BARRY FOR LUMBAR PAINReferral?TBHReferralMRIreferred by Dr. Sarath Barry right lumbar radicNeurosurgery Office Notes INFORMATION SOURCE (unrecogn ized section and content) DATE CREATED AUTHOR 12/25/2022 [facility] DATE CREATED AUTHOR AUTHOR'S ORGANIZ ATION 10/29/2023 [facility] Care Teams (unrecognized sec tion and content) Team Status: Active Member Role Status Dates Trista Barry MD Primary Care Provider Active Team Status: Inactive Member Role Status Dates Helio Barry MD Attending Provider Active Trista Barry MD Primary Care Provider Active Goals (unrecognized section and content) Goals may be documented in a n alternate section FOR RECORDS PERTAINING TO PATIENTS WHO ARE OR HAVE BEEN ENROLLED IN A CHEMICAL DEPENDENCY/SUBSTANCEABUSE PROGRAM, SOME INFORMATION MAY BE OMITTED. This clinical summary was aggregated from multiple sources. Caution should be exercised in using it in the provision of clinical care. This summary normalizes information from multiple sources, and as a consequence, information in this document may materially change the coding, format and clinical context of patient data. In addition, data may be omitted in some cases. CLINICAL DECISIONS SHOULD BE BASED ON THE PRIMARY CLINICAL RECORDS. [facility]. provides no warranty or guarantee of the accuracy or completeness of information in this document.
== END 2023-11-05 10:37 | disposition home or self-care (01) ==
LOC: MAMMO 10:36
PROVIDERS: PCP Family Medicine; Visit Provider Family Medicine
DX: Z12.31 Encounter for screening mammogram for malignant neoplasm of breast (principal); N63.10 Unspecified lump in the right breast, unspecified quadrant; Z80.3 Family history of malignant neoplasm of breast; Z80.0 Family history of malignant neoplasm of digestive organs
CPT/HCPCS: 76642; 77066; G0279

== ENCOUNTER 2023-11-18 12:35 | Outpatient (OUT) | payer OTHER, SELFPAY ==
--- OUTSIDE RECORDS SUMMARY | 2023-11-18 12:43 | XMS_ITS | CCD ---
Author Organization [facility] Care Team Providers Care Home Specialist Name Role Phone Gurpreet Calixto Unavailable Trista Barry Unavailable Goldy Glover Unavailable DR TRISTA BARRY Attending Unavailable ASHA, DR TRISTA Reyes Consulting Unavailable BARRY, DR TRISTA Reyes Admitting Unavailable BARRY, DR TRISTA Reyes Admitting Unavailable WEST, DR MAKEDA Schneider Consulting Unavailable BARRY, DR TRISTA Reyes Attending Unavailable BARRY, DR TRISTA Reyes Consulting Unavailable REGULO OWEN Admitting Unavailable LEXIE, REGULO Attending Unavailable REGULO [...] Admitting Unavailab Pan Mendieta Attending Unavailab claudia ALEXANDRE FAMILY, PHYSICIAN Primary Care Unavailable NO FAMILY, PHYSICIAN Primary Care Provider Unava ilable MD Pan Sanders Attending Provider [phone] Dieter LOCO Attending Unavailable Allergies Allergy Classification Reported Allergen(s) Allergy Type Date of Onset Reaction(s) Facility (6 sources) Penicillins Drug allergy 4 [facility] (10 sources) metFORMIN; Translations: [metFORMIN] Drug Allergy 4 Unknown, Hives [facility] (8 sources) Substance with penicillin structure and antibacterial mechanism of action (substance) Drug allergy [facility] Other (1 source) metFORMIN Drug Allergy 4 [facility] (1 source) Penicillins Drug allergy (disorder) 4 [facility] (1 source) Penicillin; Translations: [penicillin] Drug Allergy [facility] Repository Medications Current Medications Medication Drug Class(es) Dates Sig (Normalized) Sig (Original) aspirin 81 mg chewable tablet (7 sources) Platelet Aggregation Inhibitor, Nonsteroidal Anti-inflammatory Drug take 1 tablet by mouth every twenty-four hours Aspirin 81 MG 1 tablet Orally Once a day PRN Active calcium carbonate 1250 mg oral tablet (3 sources) Start: 10-22-2023 take 1 tablet by mouth twice daily at mealtime Calcium Carbonate Active 1 TAB PO Twice daily October 22, 2023 12:00am FreeTextSi tablet with meals Orally Twice a day; Note: Source Status: Taking; Provider: Asha Cadet ( ) take 1 tablet by mouth every twe lve hours Calcium 500 MG 1 tablet with meals Orally Twice a day Active Folate (2 sources) Folate Active lithium carbonate 300 mg extended release oral tablet (20 sources) Start: 10-22-2023 take 3 tablets by mouth three times daily at bedtime [place] Carbonate Active MG PO Three times daily October 22, 2023 9:33am FreeTextSi tablets Orally at HS; Note: Source Status: [id number] mg as needed; Refills: 0; Provider: Asha Cadet ( ) Start: 10-22-2023 End: 10-22-2023 take 3 tablets by mouth at bedtime [place] Carbonate Discontinued MG PO October 22, 2023 12:00am October 22, 2023 9:34am FreeTextSi tablets Orally at HS; Note: Source Status: [id number] mg as needed; Refills: 0; Provider: Asha Cadet ( ) take 3 tablets by mo uth at bedtime [place] Carbonate ER 300 MG 3 tablets Orally at HS for 90 days 900-1200 mg as needed Active take 4 tablets by mo uth every twenty-four hours [place] Carbonate ER 300 MG 4 tablets Orally [...] a day for 4 days f41.1 Active omeprazole 20 mg delayed release oral capsule (14 sources) Proton Pump Inhibitor Start: 10-22-2023 take 20 mg by mouth once daily Omeprazole Active 20 MG PO Daily October 22, 2023 12:00am Medication Name: Omeprazole; Note: Source Status: TakingOTC; Provider: Asha Cadet ( ) Omeprazole OTC A ctive OXcarbazepine 600 mg oral tablet (20 sources) Anti-epileptic Agent Start: 10-22-2023 take 1 tablet by mouth once daily, then take 1 tablet by mouth in the morning Oxcarbazepine Active 300 MG PO Once October 22, 2023 9:33am FreeTextSig: take 1 tablet by mouth once daily 1 150mg tablet in the am; Note: Source Status: Taking; Refills: 1; Provider: Marily Yoder ( ) Start: 10-22-2023 End: 10-22-2023 take 1 tablet by mouth once daily, then take 1 tablet by mouth in the morning Oxcarbazepine Discontinued 600 MG PO Once October 22, 2023 12:00am October 22, 2023 9:34am FreeTextSig: take 1 tablet by mouth once daily 1 150mg tablet in the am; Note: Source Status: Taking; Refills: 1; Provider: Marily Yoder ( ) take 1 tablet by feliberto th once daily, then take 1 tablet by [...] Dihydrofolate Reductase Inhibitor Antibacterial, Sulfonamide Antimicrobial Start: take 1 tablet by mouth every twelve hours Bactrim DS 800-160 MG 1 tablet Orally Twice a day for 10 day(s) Nov, Active tretinoin 1 mg/ml topical cream (1 source) Retinoid Start: Tretinoin Active 1 APPLIC TOPICAL 6 TIMES PER WEEK 45 October 22, 2023 12:00am 24 hr venlafaxine 225 mg extended release oral tablet (14 sources) Serotonin and Norepinephrine Reuptake Inhibitor Start: take 1 tablet by mouth once daily at mealtime Venlafaxine Active 1 TAB PO Daily October 22, 2023 12:00am FreeTextSi tablet with food Orally Once a day; Note: Source Status: Taking; Provider: Marily Yoder take 1 tablet by feliberto th every twenty-four hours Venlafaxine HCl ER 225 MG 1 tablet with food Orally Once a day for 90 days Active Vitamin B12 1000 MCG (2 sources) take 1 tablet by feliberto th once daily Vitamin B12 1000 MCG 1 tablet Orally Once a day Active Completed/Discontinued Medications Medication Drug Class(es) Dates Sig (Normalized) Sig (Original) cholecalciferol 0.05 mg oral capsule (18 sources) Vitamin D take 1 capsule by mouth once daily Vitamin D3 50 MCG (1999) take 1 capsule by mouth once daily for 90 Not-Taking ciprofloxacin 3 mg/ml / dexamethasone 1 mg/ml otic suspension (13 sources) Corticosteroid, Quinolone Antimicrobial Start: 01-03-2021 Ciprodex 0.3-0.1 % 4 drops into affected ear Otic Twice a day for 7 day(s) December, Not-Taking cyclobenzaprine hydrochloride 10 mg oral tablet (5 sources) Muscle Relaxant Start: 10-22-2023 End: 10-22-2023 take 1 tablet by mouth three times daily as needed Cyclobenzaprine Discontinued 10 MG PO Three times daily October 22, 2023 12:00am October 22, 2023 9:32am FreeTextSi tablet 3 times a day prn; Note: Source Status: Taking; Provider: Asha Cadet ( ) Cyclobenzaprine HCl 10 MG 1 tablet 3 times a day prn Active Iron Fum,Cs-Mwqpu-Wenks,C No.9 (Iron Folate Plus) 125 mg iron- 1 mg capsule (1 source) Start: 10-22-2023 End: 10-22-2023 take 1 capsule by mouth once daily at mealtime Iron Fum,Tj-Khtnx-Nsbau,C No.9 (Iron Folate Plus) 125 mg iron- 1 mg capsule Discontinued 1 CAP PO Daily October 22, 2023 12:00am October 22, 2023 9:33am administer between meals melatonin 5 mg oral tablet (20 sources) Start: 09-19-2021 take 1 tablet by mouth once daily in the evening Melatonin 5 MG 1 tablet in the evening Orally Once a day for 30 day(s) Sep, Not-Taking traMADol hydrochloride 50 mg oral tablet (7 sources) Opioid Agonist Start: 10-22-2023 End: 10-22-2023 take 1 tablet by mouth once daily at bedtime as needed Tramadol Discontinued 50 MG PO Daily October 22, 2023 12:00am October 22, 2023 9:33am FreeTextSi tablet as needed Orally Once a day (QHS); Note: Source Status: Taking; Refills: 0; Provider: Asha Reyes Start: 04-01-2023 take 1 tablet by feliberto th once daily at bedtime as needed traMADol HCl 50 MG 1 tablet as needed Orally Once a day (QHS) for 7 days Mar, Active Problems Active Problems Problem Classification Problem Date [...] disorder, unspecified] Onset: 12-13-2021 Resolved: 02-27-2022 Chronic Nonmalignant breast conditions (2 sources) Breast lump; Translations: [Unspecified lump in the right breast, unspecified quadrant] 10-22-2023 Episodic Other aftercare (8 sources) H/O: high risk medication; Translations: [Other ocean transportation intermediary (current) drug therapy] Episodic Other aftercare (5 sources) Other fpc (current) drug therapy; Translations: [OTH SKILLED NURSING CURRENT DRUG THERAPY] Onset: 05-17-2022 Episodic Other aftercare (2 sources) Long-term current use of drug therapy; Translations: [Other fpc (current) drug therapy] Episodic Other bone disease [...] conditions (not mental disorders or infectious disease) (6 sources) Encounter for screening mammogram for malignant neoplasm of breast; Translations: [Ultrasonography of breast abnormal] Onset: 11-14-2022 Episodic Other skin disorders (1 source) Acne; Translations: [Acne, unspecified] 10-22-2023 Episodic Other skin disorders (1 source) Acne, unspecified; Translations: [Other acne] 10-22-2023 Episodic Otitis media and related conditions (2 [...] Test Name Value Interpretation Reference Range Facility Physician Referralon 024 Physician Referral [id number] Normal [facility] XR lumbar spine 6V w bending on 05-29-2023 XR lumbar spine 6V w bending [facility] [place] [address] XRay Report Signed Patient: Rain Sweeney MR#: [id number] : 1960 Acct:[id number] Age/Sex: 62 / F ADM Date: 05/29/23 Loc: XD Room: Type: [facility] Attending Dr: Helio Barry MD [...] Andrea Nina M.D.05/29/2023 7:00 PM Dictation Location: [place] [address] Transcribed By: [facility] 05/29/231899 Dictated By: Andrea Nina DO 05/29/231853 Signed By: 05/29/231899 Normal [facility] XR LSPINE 2_3 VIEWSon 2022 [...] MAKEDA MÁRQUEZ Date: 2022-12-06 11:24 Normal The LITHIUMon 11-27-2022 [place] (Eskalith(R)), Serum 0.8 mmol/L Normal 0.5-1.2 [facility] Comment on above: Result Comment: A co ncentration of 0.5-0.8 mmol/L is advised for long-term use; concentrations of up to 1.2 mmol/L may be necessary during acute treatment. Detection Limit = 0.1 <0.1 indicates None Detected Performed By: #### L ITHIUM #### [id number] [place], [place] [address]PeDr. Laurel Buckner CREATININEon 11-26-2022 Creatinine [Mass/Vol] 0.97 mg/dL Normal 0.55-1.02 [facility] Comment on above: Performed By: #### T SH, CREA #### [address] [place], [place] [address] Dr. Laurel Buckner EGFR-AF GREEK >60 Normal >=60 [facility] Comment on above: Performed By: #### T SH, CREA #### [address] [place], [place] [address] Dr. Laurel Buckner EGFR-NON AF GREEK 59 mL/min/1.73m2 Critically low >=60 [facility] Comment on above: Performed By: #### T SH, CREA #### [address] [place] [address] [address] Laurel Buckner TSHon 11-26-2022 TSH 1.616 uIU/mL Normal 0.358-3.740 [facility] Comment on above: Performed By: #### T SH, CREA #### [address] [place] [address] [address] Laurel Buckner MG MAMM SCREEN 3D TOMY CADon 11-14-2022 MG MAMM SCREEN 3D TOMY CAD Patient: RAIN SWEENEY Exam Date: 11/14/2022 : 1960 Gender:F Ordering : DR TRISTA BARRY M.D. Admission #: [id number] Family : Order #: [id number] CLICK HERE TO VIEW EXAM RADIOLOGY REPORT [...] colon cancer at age 62. LOCATION: The BREAST COMPOSITION: Heterogeneously dense,which may obscure small [...] MD on 11/14/2022 at 12:01 Approved by: Makeda Márquez MD on 11/14/2022 at 12:03 Normal [facility] LITHIUMon 05-16-2022 [place] (Eskalith(R)), Serum 0.8 mmol/L Normal 0.5-1.2 [facility] Comment on above: Result Comment: Plas ma concentration of 0.5 - 0.8 mmol/L are advised for long-term use; concentrations of up to 1.2 mmol/L may be necessary during acute treatment. Detection Limit = 0.1 <0.1 indicates None Detected Performed By: #### L ITHIUM #### Laboratory [address] [place] [address] Dr. Laurel Buckner CBC AUTO DIFFon 05-15-2022 BASO # 0.1 103/ul Normal 0.0-0.1 [facility] Comment on above: Performed By: #### C BC #### Laboratory [address] [place] [address] Dr. Laurel Buckner Basophils/100 WBC (Bld) 1.0 % Normal 0.2-2.0 [facility] Comment on above: Performed By: #### C BC #### Laboratory [address] [place] [address] Dr. Laurel Buckner EO # 0.4 103/ul Normal 0.0-0.7 [facility] Comment on above: Performed By: #### C BC #### Laboratory [address] [place] [address] Dr. Laurel Buckner Eosinophils/100 WBC (Bld) 5.3 % Normal 0.9-7.0 [facility] Comment on above: Performed By: #### C BC #### Laboratory [address] [place] [address] Dr. Laurel Buckner Erythrocyte distribution width (RBC) [Ratio] 13.8 % Normal 11.0-15.0 [facility] Comment on above: Performed By: #### C BC #### Laboratory [address] [place] [address] Dr. Laurel Buckner Hematocrit (Bld) [Volume fraction] 46.8 % Normal 36.0-48.0 [facility] Comment on above: Performed By: #### C BC #### [address] [place] [address] [address] Laurel Buckner Hemoglobin (Bld) [Mass/Vol] 14.8 g/dL Normal 12.0-16.0 [facility] Comment on above: Performed By: #### C BC #### [address] [place] [address] [address] Laurel Buckner IG # 0.07 10e3/ul Critically high 0.00-0.03 [facility] Comment on above: Performed By: #### C BC #### Laboratory [address] [place] [address] Dr. Laurel Buckner IG % 1.0 % Critically high 0.0-0.5 [facility] Comment on above: Performed By: #### C BC #### Laboratory [address] [place] [address] Dr. Laurel Buckner LYMPH # 1.7 103/ul Normal 1.2-3.8 [facility] Comment on above: Performed By: #### C BC #### Laboratory [address] [place] [address] Dr. Laurel Buckner Lymphocytes/100 WBC (Bld) 25.4 % Normal 20.5-60.0 [facility] Comment on above: Performed By: #### C BC #### Laboratory [address] [place] [address] Dr. Laurel Buckner MANUAL DIFF REQ NO Normal [facility] Comment on above: Performed By: #### C BC #### Laboratory [address] [place] [address] Dr. Laurel Buckner MCH (RBC) [Entitic mass] 29.5 pg Normal 26.7-34.0 [facility] Comment on above: Performed By: #### C BC #### Laboratory [address] [place] [address] Dr. Laurel Buckner MCHC (RBC) [Mass/Vol] 31.6 g/dL Normal 29.9-35.2 [facility] Comment on above: Performed By: #### C BC #### Laboratory [address] [place] [address] [address] Laurel Buckner MCV (RBC) [Entitic vol] 93.4 fL Normal 81.0-99.0 [facility] Comment on above: Performed By: #### C BC #### Laboratory [address] [place] [address] [address] Laurel Buckner MONO # 0.6 103/ul Normal 0.3-0.8 [facility] Comment on above: Performed By: #### C BC #### Laboratory [address] [place] [address] [address] Laurel Buckner Monocytes/100 WBC (Bld) 8.4 % Normal 1.7-12.0 [facility] Comment on above: Performed By: #### C BC #### Laboratory [address] [place] [address] Dr. Laurel Buckner NEUT # 4.0 103/ul Normal 1.4-6.5 [facility] Comment on above: Performed By: #### C BC #### Laboratory [address] [place] [address] Dr. Laurel Buckner Neutrophils/100 WBC (Bld) 58.9 % Normal 43.0-75.0 [facility] Comment on above: Performed By: #### C BC #### Laboratory [address] [place] [address] Dr. Laurel Buckenr Platelet mean volume (Bld) [Entitic vol] 10.1 fL Normal 9.5-13.5 The Comment on above: Performed By: #### C BC #### Laboratory [address] [place] [address] Dr. Laurel Buckner PLT 279 103/ul Normal 150-450 The Comment on above: Result Comment: smea r reviewed Performed By: #### C BC #### Laboratory [address] [place] [address] [address] Laurel Buckner RBC 5.01 106/ul Normal 4.20-5.40 The Comment on above: Performed By: #### C BC #### Laboratory [address] [place] [address] [address] Laurel Buckner WBC 6.8 103/ul Normal 4.0-11.0 [facility] Comment on above: Performed By: #### C BC #### Laboratory [address] [place] [address] [address] Laurel Buckner GLYCOHEMOGLOBIN A1Con 2021 ADA RECOMMENDATION SEE BELOW Normal [facility] Comment on above: Result Comment: ADA RECOMMENDED LIMIT 4.0 - 6.0 ADA THERAPEUTIC TARGET < 7.0 ACTION SUGGESTED > 7.0 Performed By: #### A 1C #### Laboratory [address] [place] [address] Dr. Laurel Buckner Glucose [Mass/Vol] 97 mg/dL Normal [facility] Comment on above: Performed By: #### A 1C #### Laboratory [address] [place] [address] Dr. Laurel Buckner HbA1c (Bld) [Mass fraction] 5.0 % Normal 4.5-6.2 [facility] Comment on above: Performed By: #### A 1C #### Laboratory [address] [place] [address] Dr. Laurel Buckner LIPID PROFILEon 05-15-2022 CHOL-HDL RATIO NORM SEE BELOW Normal [facility] Comment on above: Result Comment: 3.3 - 4.4 LOW RISK 4.4 - 7.1 AVERAGE RISK 7.1 - 11.0 MODERATE RISK >11.0 HIGH RISK Performed By: #### L IPID, TSH, CMP #### Laboratory [address] [place] [address] Dr. Laurel Buckner Cholesterol [Mass/Vol] 279 mg/dL Critically high <=200 [facility] Comment on above: Performed By: #### L IPID, TSH, CMP #### Laboratory [address] [place] [address] Dr. Laurel Buckner Cholesterol in HDL [Mass/Vol] 76 mg/dL Critically high 40-60 [facility] Comment on above: Performed By: #### L IPID, TSH, CMP #### Laboratory [address] [place] [address] [address] Laurel Buckner Cholesterol in LDL [Mass/Vol] 162.8 mg/dL Normal [facility] Comment on above: Performed By: #### L IPID, TSH, CMP #### Laboratory [address] [place] [address] [address] Laurel Buckner Cholesterol.total/Ch olesterol in HDL [Mass ratio] 3.7 {ratio} Normal [facility] Comment on above: Performed By: #### L IPID, TSH, CMP #### Laboratory [address] [place] [address] [address] Laurel Buckner HDL NORMAL > or = 60 mg/dl - LO W CARDIOVASCULAR RISK <40 mg/dl - HIGH CARDIOVASCULAR RISK Normal [facility] Comment on above: Performed By: #### L IPID, TSH, CMP #### Laboratory [address] [place] [address] [address] Laurel Buckner LDL CALC NORMAL SEE BELOW Normal [facility] Comment on above: Result Comment: <100 mg/dl OPTIMAL 100 - 129 mg/dl NEAR OR ABOVE OPTIMAL 130 - 159 mg/dl BORDERLINE HIGH 160 - 189 mg/dl HIGH >190 mg/dl VERY HIGH Performed By: #### L IPID, TSH, CMP #### Laboratory [address] [place] [address] [address] Laurel Buckner Triglyceride [Mass/Vol] 201 mg/dL Critically high <=150 [facility] Comment on above: Performed By: #### L IPID, TSH, CMP #### [address] [place] [address] [address] Laurel Buckner VLDL CALC 40.2 mg/dL Normal [facility] Comment on above: Performed By: #### L IPID, TSH, CMP #### Laboratory [address] [place] [address] [address] Laurel Buckner PROF 14(COMP METB)on 022 Albumin [Mass/Vol] 3.6 g/dL Normal 3.4-5.0 [facility] Comment on above: Performed By: #### L IPID, TSH, CMP #### Laboratory [address] [place] [address] [address] Laurel Buckner Albumin/Globulin [Mass ratio] 0.9 {ratio} Normal [facility] Comment on above: Performed By: #### L IPID, TSH, CMP #### Laboratory [address] [place] [address] [address] Laurel Buckner ALP [Catalytic activity/Vol] 110 U/L Normal 46-116 [facility] Comment on above: Performed By: #### L IPID, TSH, CMP #### Laboratory [address] [place] [address] [address] Laurel Buckner ALT [Catalytic activity/Vol] 22 U/L Normal 14-59 [facility] Comment on above: Performed By: #### L IPID, TSH, CMP #### Laboratory [address] [place] [address] Dr. Laurel Buckner Anion gap [Moles/Vol] 10.8 mmol/L Normal [facility] Comment on above: Performed By: #### L IPID, TSH, CMP #### Laboratory [address] [place] [address] [address] Laurel Buckner AST [Catalytic activity/Vol] 11 U/L Critically low 15-37 [facility] Comment on above: Performed By: #### L IPID, TSH, CMP #### Laboratory [address] [place] [address] Dr. Laurel Buckner Bilirubin [Mass/Vol] 0.3 mg/dL Normal 0.2-1.0 [facility] Comment on above: Performed By: #### L IPID, TSH, CMP #### Laboratory [address] [place] [address] [address] Laurel Buckner Calcium [Mass/Vol] 9.1 mg/dL Normal 8.5-10.1 [facility] Comment on above: Performed By: #### L IPID, TSH, CMP #### Laboratory [address] [place] [address] [address] Laurel Buckner Chloride [Moles/Vol] 103 mmol/L Normal 98-107 [facility] Comment on above: Performed By: #### L IPID, TSH, CMP #### Laboratory [address] [place] [address] [address] Laurel Buckner CO2 [Moles/Vol] 27.9 mmol/L Normal 21.0-32.0 [facility] Comment on above: Performed By: #### L IPID, TSH, CMP #### Laboratory [address] [place] [address] Dr. Laurel Buckner Creatinine [Mass/Vol] 0.96 mg/dL Normal 0.55-1.02 [facility] Comment on above: Performed By: #### L IPID, TSH, CMP #### Laboratory [address] [place] [address] Dr. Laurel Buckner EGFR-AF GREEK >60 Normal >=60 [facility] Comment on above: Performed By: #### L IPID, TSH, CMP #### Laboratory [address] [place] [address] Dr. Laurel Buckner EGFR-NON AF GREEK 59 mL/min/1.73m2 Critically low >=60 [facility] Comment on above: Performed By: #### L IPID, TSH, CMP #### Laboratory [address] [place] [address] Dr. Laurel Buckner Globulin (S) [Mass/Vol] 3.9 g/dL Normal [facility] Comment on above: Performed By: #### L IPID, TSH, CMP #### Laboratory [address] [place] [address] Dr. Laurel Buckner Glucose [Mass/Vol] 90 mg/dL Normal 74-106 [facility] Comment on above: Performed By: #### L IPID, TSH, CMP #### Laboratory [address] [place] [address] Dr. Laurel Buckner Potassium [Moles/Vol] 3.7 mmol/L Normal 3.5-5.1 [facility] Comment on above: Performed By: #### L IPID, TSH, CMP #### Laboratory [address] [place] [address] Dr. Laurel Buckner Protein [Mass/Vol] 7.5 g/dL Normal 6.4-8.2 [facility] Comment on above: Performed By: #### L IPID, TSH, CMP #### Laboratory [address] [place] [address] [address] Laurel Buckner Sodium [Moles/Vol] 138 mmol/L Normal 136-145 [facility] Comment on above: Performed By: #### L IPID, TSH, CMP #### Laboratory [address] [place] [address] [address] Laurel Buckner Urea nitrogen [Mass/Vol] 16.0 mg/dL Normal 7.0-18.0 [facility] Comment on above: Performed By: #### L IPID, TSH, CMP #### Laboratory [address] [place] [address] [address] Laurel Buckner Urea nitrogen/Creatinine [Mass ratio] 16.7 mg/mg Normal [facility] Comment on above: Performed By: #### L IPID, TSH, CMP #### Laboratory [address] [place] [address] [address] Laurel Buckner TSHon 05-15-2022 TSH 3.094 uIU/mL Normal 0.358-3.740 [facility] Comment on above: Performed By: #### L IPID, TSH, CMP #### Laboratory [address] [place] [address] [address] Laurel Buckner Vital Signs Date Time Vital Sign Value Performing Clinician Facility 11-12-2023 10:20-0400 Body height 170.18 cm PHYSICIAN NO [facility] 11-12-2023 10:20-0400 Body mass index (BMI) [Ratio] 28 kg/m2 PHYSICIAN NO [facility] 11-12-2023 10:20-0400 Body weight 81.36 kg PHYSICIAN NO [facility] 11-12-2023 10:20-0400 Diastolic blood pressure 77 mm[Hg] PHYSICIAN NO [facility] 11-12-2023 10:20-0400 Heart rate 124 /min PHYSICIAN NO [facility] 11-12-2023 10:20-0400 Systolic blood pressure 124 mm[Hg] PHYSICIAN NO [facility] 10-22-2023 09:23-0400 Body height 170.18 cm PHYSICIAN NO [facility] 10-22-2023 09:23-0400 Body mass index (BMI) [Ratio] 29.1 kg/m2 PHYSICIAN NO [facility] 10-22-2023 09:23-0400 Body weight 84.36 kg PHYSICIAN NO [facility] 10-22-2023 09:23-0400 Diastolic blood pressure 85 mm[Hg] PHYSICIAN NO [facility] 10-22-2023 09:23-0400 Heart rate 106 /min PHYSICIAN NO [facility] 10-22-2023 09:23-0400 Systolic blood pressure 140 mm[Hg] PHYSICIAN NO [facility] 05-29-2023 14:00-0400 Body height 170.18 cm Helio Barry Other [employer] [facility] [employer] Other 05-29-2023 14:00-0400 Body mass index (BMI) [Ratio] 29.44 kg/m2 Helio Barry Other [employer] Other 05-29-2023 14:00-0400 Body weight 85.28 kg Helio Barry Other [employer] Other 05-05-2023 08:30-0400 Body height 170.18 cm Trista Barry Other [employer] Other 05-05-2023 08:30-0400 Body mass index (BMI) [Ratio] 29.44 kg/m2 Trista Barry Other [employer] Other 05-05-2023 08:30-0400 Body weight 85.28 kg Trista Barry Other [employer] Other 05-05-2023 08:30-0400 Diastolic blood pressure 82 mm[Hg] Trista Barry Other [employer] Other 05-05-2023 08:30-0400 Systolic blood pressure 128 mm[Hg] Trista Barry Other [employer] Other 04-01-2023 10:00-0400 Body height 170.18 cm Trista Barry Other [employer] Other 04-01-2023 10:00-0400 Body mass index (BMI) [Ratio] 29.13 kg/m2 Trista Barry Other [employer] Other 04-01-2023 10:00-0400 Body weight 84.37 kg Trista Barry Other [employer] Other 04-01-2023 10:00-0400 Diastolic blood pressure 86 mm[Hg] Trista Barry Other [employer] Other 04-01-2023 10:00-0400 Systolic blood pressure 148 mm[Hg] Trista Barry Other [employer] Other Encounters Encounter Date Encounter Type Care Provider Facility Start: 11-19-2023 ambulatory Dieter R NILL Facility :[facility] Start: 11-17-2023 ambulatory Dieter NILL Facility:[facility] Start: 11-14-2023 ambulatory Dieter NILL Facility:[facility] Start: 11-12-2023 End: 11-12-2023 ambulatory PHYSICIAN NO [facility] Work Phone: Start: 11-12-2023 End: 11-12-2023 Patient encounter procedure PHYSICIAN NO [facility] Work Phone: Start: 10-22-2023 Patient encounter status PHYSICIAN NO [facility] Start: 10-22-2023 End: 10-22-2023 Encounter for general adult medical examination without abnormal findings PHYSICIAN NO [facility] Start: 10-22-2023 End: 10-22-2023 Patient encounter procedure PHYSICIAN BALDOMERO [facility] Work Phone: Start: 09-09-2023 ambulatory Pan Macias acility:[facility] Start: 09-09-2023 Registered Recurring PHYSICIAN BALDOMERO SPENCE [facility] Start: 05-30-2023 End: 05-30-2023 ambulatory Helio Barry Other [employer] Other Start: 05-30-2023 Telephone encounter Helio Barry [employer] Start: 05-29-2023 End: 05-29-2023 ambulatory Trista Barry Facility:[facility] Start: 05-29-2023 Office outpatient ne w 30 minutes Helio Barry [facility] Start: 05-29-2023 End: 05-29-2023 ambulatory MD Trista Barry Work Phone: [facility] Work Phone: Start: 05-29-2023 End: 05-29-2023 Patient encounter procedure MD Trista Barry Work Phone: [facility] Work Phone: Start: 05-16-2023 End: 05-16-2023 ambulatory Trista Barry Other [employer] Other Start: 05-16-2023 Telephone encounter Trista Barry [facility] Start: 05-05-2023 End: 05-05-2023 ambulatory Trista Barry Other [employer] Other Start: 05-05-2023 Office outpatient visit 15 minutes Trista Barry [facility] Start: 04-07-2023 End: 04-07-2023 ambulatory Trista Barry Other [employer] Other Start: 04-07-2023 Telephone encounter Trista Barry [facility] Start: 04-01-2023 End: 04-01-2023 ambulatory Trista Barry Other [employer] Other Start: 04-01-2023 Office outpatient visit 15 minutes Trista Barry [facility] Start: 12-27-2022 ambulatory GOLDY LINDSEYEARL Facility: [facility] Start: 12-23-2022 End: 12-23-2022 ambulatory Goldy Glover Other [employer] Other Start: 12-23-2022 Office outpatient ne w 45 minutes Goldy Glover [facility] [place] Start: 12-06-2022 Telephone encounter Trista Barry [facility] Start: 12-06-2022 End: 12-07-[address] TRISTA BARRY [employer] Other Start: 11-26-2022 End: 11-27-2022 ambulatory REGULO OWEN Facility:[facility] Start: 11-14-2022 End: 11-15-[address] TRISTA BARRY Facility:[facility] Start: 05-17-2022 Encounter for genera l adult medical examination without abnormal findings DR TRISTA BARRY The Start: 05-15-2022 End: 05-16-[address] TRISTA BARRY Facility:[facility] Start: 05-15-2022 End: 05-16-2022 Encounter for general adult medical examination without abnormal findings DR TRISTA BARRY Facility:[facility] Start: 05-14-2022 Adult health examination Trista Barry Other [employer] Other Start: 04-18-2022 End: 04-18-2022 ambulatory Gurpreet Marily Other [employer] Other Start: 04-18-2022 Telephone encounter Gurpreet Marily [facility] Start: 02-27-2022 End: 02-27-2022 ambulatory Gurpreet Marily Other [employer] Other Start: 02-27-2022 Telephone encounter Gurpreet Marily [facility] [employer] Start: 02-05-2022 ambulatory GURPREET MARILY Facility:[facility] Start: 12-13-2021 End: 12-13-2021 ambulatory Gurpreet [facility] Other [employer] Other Start: 12-13-2021 Telephone encounter Gurpreet [facility] Start: 09-19-2021 End: 09-19-2021 ambulatory Gurpreet [facility] Other [employer] Other Start: 09-19-2021 Telephone encounter Gurpreet [facility] Start: 09-05-2021 End: 09-05-2021 ambulatory Gurpreet [facility] Other [employer] Other Start: 09-05-[facility] Date Procedure Procedure Detail Performing Clinician Start: 05-29-2023 X-ray of lumbar spin e, six views including bending views MD Trista Barry Work Phone: Screening for malign ant neoplasm of breast Trista Barry Other Screening for malign ant neoplasm of colon Trista Barry Other Plan of Treatment Date Care Activity Detail Author Start: 11-12-2023 Patient referral [facility] Work Phone: MG Breast - bilatera l Diagnostic [facility] Patient Education Yearly Physica l for Adults [facility] Work Phone: Patient referral [facility] Work Phone: Immunizations Immunization Date Immunization Notes Care Provider Fa ciliafia 10-12-2022 influenza, injectabl e, quadrivalent, preservative free Trista Barry Other [facility] 02-19-2022 diphtheria, tetanus toxoids and acellular pertussis vaccine, unspecified formulation Trista Barry Other [facility] 02-19-2022 tetanus toxoid, reduced diphtheria toxoid, and acellular pertussis vaccine, adsorbed Trista Asha Other [facility] 08-07-2021 COVID-19 Vaccine Moderna - Documentation Purposes Only Trista Asha Other [facility] 05-28-2021 influenza virus vaccine, split virus (incl. purified surface antigen) Trista Asha Other [employer] Other 05-28-2021 influenza virus vaccine, unspecified formulation PHYSICIAN NO [facility] 12-09-2020 COVID-19 Vaccine Moderna - Documentation Purposes Only Trista Barry Other [facility] 11-11-2020 COVID-19 Vaccine Moderna - Documentation Purposes Only Trista Asha Other [facility] Payers Date Payer Category Payer Unknown [id number] 2.16.84 [id number] 1960 Unknown [id number] 2.16.84 [id number] 1960 Unknown [id number] 2.16.84 [id number] 1960 Unknown [id number] 2.16.84 [id number] 1960 Unknown [id number] 2.16.84 [id number] 1960 Unknown [id number] 2.16.84 [id number] 1960 Unknown [id number] 2.16.8 [id number] 1960 Unknown [id number] 2.16.8 [id number] 1957 Private Health Insurance [id number] 1959 Private Health Insurance [id number] Self-pay [facility] [id number] Private Health Insurance [id number] Unknown [id number] 2.16.8 [id number] Social History Date Type Detail Facility Sex Assigned At [employer] Other Start: 1960 Sex Assigned At Female F [facility] Start: 05-29-2023 [facility] Clinical Notes 12-13-2021 to 05-29-2023 Note Date [...] may be able to offer some advice. [employer] Other 09-25-2023 Evaluation note* Encounter Date Diagnosis Assessment Notes Treatment Notes Treatment Clinical Notes Apr, Right lumbar radiculopathy (ICD-10 - M54.16) Presently in PT - discharged on 05/02. Requests MRI and referral. [employer] Other 08-22-2023 Evaluation note* Encounter Date Diagnosis Assessment Notes Treatment Notes Treatment Clinical Notes Mar, Right hip pain (ICD-10 - M25.551) PT paper given to pt. Handout for home stretches given as well. Tramadol to help her sleep. She understands it is a controlled substance and could be sedating. [employer] Other 05-15-2023 Evaluation note* Encounter Date Diagnosis [...] Above note written by Morris Flor MA, [employer]. Edited and approved by Dr. Goldy Glover [...] negative findings were considered in medical decision-making. [employer] Other 04-28-2023 Evaluation note* Encounter Date Diagnosis Assessment Notes Treatment Notes Treatment Clinical Notes Nov, Lumbar pain (ICD-10 - M54.50) [employer] Other 07-20-2022 Evaluation note* Encounter Date Diagnosis Assessment Notes Treatment Notes Treatment Clinical Notes Feb, Bipolar 1 disorder, depressed (ICD-10 - F31.9) [facility] [employer] Other 05-05-2022 Evaluation note* Encounter Date Diagnosis Assessment Notes Treatment Notes Treatment Clinical Notes December, Bipolar 1 disorder, depressed (ICD-10 - F31.9) [employer] [facility] [employer] Other Evaluation noteNo [employer] Other Evaluation noteNo assessment information available [facility] Work Phone: Evaluation note* Diagnosis Onset Date Resolution Status Acne acute Breast mass, right acute Wellness examination acute Abnormal ultrasound of breast acute [facility] Work Phone: History general Narrative - Reported* Type Description Date Medical History bipolar disorder Medical History anxiety disorder Medical History high blood pressure Surgical History 2 boul ligation 2000 Surgical History stepidectomy 2009 Surgical History sinus surgery 2015 Hospitalization History See surgical hx Hospitalization History [facility] [employer] [facility] Narrative - Reported* Type Description Date Medical History bipolar disorder Medical History anxiety disorder Medical History high blood pressure Medical History Fatigue Medical History High risk medication use Surgical History 2 boul ligation 2000 Surgical History stepidectomy 2009 Surgical History sinus surgery 2015 Surgical History LUBAL LIGATION Hospitalization History See surgical hx Hospitalization History [facility] [employer] Other [employer] general Narrative - Reported* Type Description Date [...] Hospitalization History See surgical hx Hospitalization History [facility] [employer] Other Hospital Discharge instructionsAmbulatory Orders* Referral to General Surgery Time Frame: 11/12/23, Location: None Selected [facility] Work Phone: Reason for Referral Reason piriformis pain Diagnosis 1 Adolescent idiopathi c scoliosis of lumbosacral spine (M41.127) Referral Organization [facility] Referring Provider First Name Helio Referring Provider Last Name Asha Referring Provider Specialty Neurologica l Surgery Referred Organization [facility] [place] [facility] Referred Provider Danny Solares Referred Address [address] [place],[address] Referred Provider Specialty Orthopaedic Surgery Referral Priority Routine Reason Requests Dr. Helio Bass aun - MRI pending. Went to [facility] and had xrays on 05/05. Diagnosis 1 Right lumbar radicul opathy (M54.16) Referral Organization [facility] [employer] Referring Provider First Name Trista Referring Provider Last Name Asha Referring Provider Specialty Family Medi cine Referred Organization [facility] Neurosurgery [facility] Referred Address [address], [place],[address] Referred Provider Specialty Neurological Surgery Referral Priority Routine Reason No preference on off ice - Lumbar pain - recent OV and xray - thanks Diagnosis 1 Lumbar pain (M54.50) Referral Organization [facility] [employer] Referring Provider First Name Trista Referring Provider Last Name Asha Referring Provider Specialty Family Medi cine Referred Organization Unknown Facility Referred Provider Specialty Pain Medicin e Referral Priority Routine Summary Purpose Family History No Family History Records Found Relationship Condition Age at Onset Recorded Date/T patricia daughter Bipolar disorder Unknown Malignant neoplasm Unknown father Bipolar disorder Unknown Unknown Not Specified Unknown Advance Directives No Advanced Directives Records Found Advance Directive Response Recorded Date/ Time Advance Directives No May 29, 2023 12:42pm Chief Complaint and Reason for Visit Chief Complaint m54.50 Chief Complaint [facility] Wellness review ultrasound Reason for Visit Acne Breast mass, right Wellness examination Abnormal ultrasound of breast Additional Source Comments REASON FOR VISIT (unrecogniz ed section and content) cancelled apptupdateupdate/r efillRefillsreferrallumbar xrayREF BY DR TRISTA BARRY FOR LUMBAR PAINReferral?TBHReferralMRIreferred by Dr. Sarath Barry right lumbar radicNeurosurgery Office Notes INFORMATION SOURCE (unrecogn ized section and content) DATE CREATED AUTHOR 12/25/2022 [facility] DATE CREATED AUTHOR AUTHOR'S ORGANIZ ATION 10/29/2023 [facility] DATE CREATED AUTHOR AUTHOR'S ORGANIZ ATION 11/17/2023 [facility] Care Teams (unrecognized sec tion and content) Team Status: Active Member Role Status Dates Trista Barry MD Primary Care Provider Active Team Status: Active Member Role Status Dates PHYSICIAN NO FAMILY Primary Care Provider Active Start: September 09, 2023 Pan Sanders MD Attending Provider Active Start: September 09, 2023 Team Status: Inactive Member Role Status Dates Trista Barry MD Primary Care Provide r, Attending Provider Active Start: October 22, 2023 End: October 22, 2023 Team Status: Inactive Member Role Status Dates Trista Barry MD Primary Care Provide r, Attending Provider Active Start: November 12, 2023 End: November 12, 2023 Team Status: Inactive Member Role Status Dates [...] BE BASED ON THE PRIMARY CLINICAL RECORDS. [facility] [employer] provides no warranty or guarantee of the accuracy or completeness of information in this document.
[2023-11-18 13:00] LABS: Basophils Absolute Auto 0.1 10^3/uL (0.0-0.1); Basophils Percent Auto 0.9 % (0.2-2.0); Eosinophils Absolute Auto 0.3 10^3/uL (0.0-0.7); Eosinophils Percent Auto 4.5 % (0.9-7.0); Hematocrit 46.8 % (36.0-48.0); Immature Granulocytes Abs Auto 0.04 10^3/uL (0.00-0.03); Immature Granulocytes Pct Auto 0.6 % (0.0-0.5); Lymphocytes Absolute Auto 1.7 10^3/uL (1.2-3.8); Lymphocytes Percent Auto 25.3 % (20.5-60.0); Mean Corpuscular HGB Conc 32.1 g/dL (29.9-35.2); Mean Corpuscular Hemoglobin 29.6 pg (26.7-34.0); Mean Corpuscular Volume 92.3 fL (81.0-99.0); Mean Platelet Volume 10.1 fL (9.5-13.5); Monocytes Absolute Auto 0.5 10^3/uL (0.3-0.8); Monocytes Percent Auto 7.4 % (1.7-12.0); Neutrophils Percent Auto 61.3 % (43.0-75.0); Platelet Count 281 10^3/uL (150-450); Red Blood Count 5.07 10^6/uL (4.20-5.40); Red Cell Distribution Width 13.6 % (11.0-15.0); White Blood Count 6.5 10^3/uL (4.0-11.0)
[2023-11-18 13:48] LABS: Estimated Average Glucose 100 mg/dL; Glycohemoglobin A1C 5.1 % (4.5-6.2)
[2023-11-18 14:27] LABS: Alanine Aminotransferase 40 U/L (14-59); Albumin Level 3.7 g/dL (3.4-5.0); Alkaline Phosphatase 83 U/L (46-116); Anion Gap 14.1; Aspartate Amino Transferase 22 U/L (15-37); BUN Creatinine Ratio 8.8; Bilirubin Total 0.4 mg/dL (0.2-1.0); Calcium 9.1 mg/dL (8.5-10.1); Carbon Dioxide 26.6 mmol/L (21.0-32.0); Chloride 104 mmol/L (98-107); Chol HDL Ratio 2.9; Cholesterol 226 mg/dL (<=200); Estimated GFR (African America >60 (>=60); Estimated GFR (Non-African Ame 55 (>=60); Globulin 3.6 g/dL; Glucose 107 mg/dL (74-106); HDL Cholesterol 77 mg/dL (40-60); Potassium 3.7 mmol/L (3.5-5.1); Sodium 141 mmol/L (136-145); Thyroid Stimulating Hormone 1.352 uIU/mL (0.358-3.740); Total Protein 7.3 g/dL (6.4-8.2); Triglycerides 99 mg/dL (<=150); VLDL CHOLESTEROL 19.8 mg/dL
[2023-11-19 04:07] LABS: Lithium (Eskalith(R)), Serum 0.9 mmol/L (0.5-1.2)
== END 2023-11-18 12:36 | disposition home or self-care (01) ==
LOC: LAB 12:36
PROVIDERS: PCP Family Medicine; Visit Provider Psychiatry & Neurology Psychiatry
DX: Z79.899 Other long term (current) drug therapy (principal); F31.9 Bipolar disorder, unspecified
CPT/HCPCS: 36415; 80053; 80061; 80178; 83036; 84443; 85025

== ENCOUNTER 2023-12-15 08:57 | Outpatient (OUT) | payer OTHER, SELFPAY ==
--- NOTE | 2023-12-15 09:04 | ECG_ITS ---
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
--- OUTSIDE RECORDS SUMMARY | 2023-12-15 09:19 | XMS_ITS | CCD ---
Author Organization [facility] Care Team Providers [employer] Name Role Phone Gurpreet Calixto Unavailable Trista Barry Unavailable Goldy Glover Unavailable DR TRISTA BARRY Attending Unavailable ASHA, DR TRISTA Reyes Consulting Unavailable ASHA, DR TRISTA Reyes Admitting Unavailable BARRY, DR TRISTA Reyes Admitting Unavailable WEST, DR MAKEDA Schneider Consulting Unavailable BARRY, DR TRISTA Reyes Attending Unavailable BARRY, DR TRISTA Reyes Consulting Unavailable LEXIE, REGULO Admitting Unavailable LEXIE, REGULO Attending Unavailable REGULO OWEN Consulting Unavailable ASHA, DR TRISTA Reyes Admitting Unavailable WEST, DR MAKEDA Schneider Consulting Unavailable BARRY, DR TRISTA Reyes Attending Unavailable ASHA, DR TRISTA Reyes Primary Care Unavailable ASHA, DR TRISTA Reyes Consulting Unavailable GOLDY GLOVER Admitting Unavailable GOLDY GLOVER Attending Unavailable ASHA, DR TRISTA Reyes Primary Care Unavailable GURPREET CALIXTO Attending Unavailable GURPREET CALIXTO Admitting Unavailable MD Helio Barry Attending Provider MD Trista Barry Primary Care Provider Helio Barry Unavailable NO FAMILY, PHYSICIAN Primary Care Provider Unava MD Pan Gutierrez Attending Provider TRISTA BARRY Primary Care Physician [phone] Dieter LOCO Attending Unavailable Trista Barry Primary Care Unavailable Heloi Barry Attending Unavailable Helio Barry Admitting Unavailable NO FAMILY, PHYSICIAN Primary Care Unavailable Pan Sanders Attending Unavailab le Pan Sanders Admitting Unavailab le Allergies Allergy Classification Reported Allergen(s) Allergy Type Date of Onset Reaction(s) Facility (6 sources) Penicillins Drug allergy 4 [facility] (11 sources) metFORMIN; Translations: [metformin] Drug Allergy 4 [facility] (disorder) [facility] (8 sources) Substance with penicillin structure and antibacterial mechanism of action (substance) Drug [facility] [employer] Other (2 sources) Penicillin; Translations: [penicillin] Drug Allergy Weal (disorder) [facility] [place] (1 source) metFORMIN Drug Allergy 4 [facility] (1 source) Penicillins Drug allergy (disorder) 4 [facility] Medications Current Medications Medication Drug Class(es) Dates Sig (Normalized) Sig (Original) aspirin 81 mg chewable tablet (7 sources) Platelet Aggregation Inhibitor, Nonsteroidal Anti-inflammatory Drug take 1 tablet by mouth every twenty-four hours Aspirin 81 MG 1 tablet Orally Once a day PRN Active Calcium Carbonate (4 sources) Start: 11-17-2023 take 1 tablet by mouth twice daily calcium carbonate = 1 tab(s), Oral, BID, Refills(s) 0 Start Date: 11/17/23 Status: Ordered Start: 10-22-2023 take 1 tablet by feliberto th twice daily at mealtime Calcium Carbonate Active 1 TAB PO Twice daily October 22, 2023 12:00am FreeTextSi tablet with meals Orally Twice a day; Note: Source Status: Taking; Provider: Asha Cadet ( ) take 1 tablet by feliberto th every twelve hours Calcium 500 MG 1 tablet with meals Orally Twice a day Active Folate (2 sources) Folate Active lithium carbonate 300 mg oral tablet (20 sources) Start: 11-17-2023 take 3 tablets by mouth at bedtime lithium 300 mg oral tablet 900 mg = 3 tab(s), Oral, Bedtime, Refills(s) 0 Start Date: 11/17/23 Status: Ordered Start: 10-22-2023 take 3 tablets by mo uth three times daily at bedtime Sumrall Carbonate Active MG PO Three times daily October 22, 2023 9:33am FreeText[employer] tablets Orally at HS; Note: Source Status: [id number] mg as needed; Refills: 0; Provider: Asha Cadet ( ) Start: 10-22-2023 End: 10-22-2023 take 3 tablets by mouth at bedtime Sumrall Carbonate Discontinued MG PO October 22, 2023 12:00am October 22, 2023 9:34am [employer] tablets Orally at HS; Note: Source Status: [id number] mg as needed; Refills: 0; Provider: Asha Cadet ( ) take 3 tablets by mo [facility] at bedtime Sumrall Carbonate ER 300 MG 3 tablets Orally at HS for 90 days 900-1200 mg as needed Active take 4 tablets by mo uth every twenty-four hours Sumrall Carbonate ER 300 MG 4 tablets Orally Once a day for 90 days 900-1200 mg as needed Active LORazepam 0.5 mg oral tablet (7 sources) Benzodiazepine Start: 12-13-2021 take 1 tablet by mouth every twenty-four hours Ativan 0.5 MG 1 tablet at bedtime as needed Orally Once a day for 10 days f41.1 December, Active take 1 tablet by feliberto every twenty-four hours Ativan 0.5 MG 1 tablet at bedtime as needed Orally Once a day for 4 days f41.1 Active omeprazole 20 mg delayed release oral capsule (15 sources) Proton Pump Inhibitor Start: 11-17-2023 take 1 capsule by mouth once daily omeprazole 20 mg Cap-DR 20 mg = 1 cap(s), Oral, Daily, Refills(s) 0 Start Date: 11/17/23 Status: Ordered Start: 10-22-2023 take 20 mg by mouth once daily Omeprazole Active 20 MG PO Daily October 22, 2023 12:00am Medication Name: Omeprazole; Note: Source Status: TakingOTC; Provider: Asha Cadet ( ) Omeprazole OTC A ctive OXcarbazepine 300 mg oral tablet (20 sources) Anti-epileptic Agent Start: 11-17-2023 take 1 tablet by mouth once daily oxcarbazepine 300 mg Tab 300 mg = 1 tab(s), Oral, Daily, Refills(s) 0 Start Date: 11/17/23 Status: Ordered Start: 10-22-2023 take 1 tablet by feliberto once daily, then take 1 tablet by [...] days Active RA Vitamin D-3 50 MCG (1999 [place]) (13 sources) take 1 capsule by mouth [...] Nov, Active tretinoin 1 mg/ml topical cream (2 sources) Retinoid Start: 024 tretinoin Top 0.1% Crm 1 susan, Topical, Once a day (at bedtime), Refill(s) 0 Start Date: 11/17/23 Status: Ordered Start: 10-22-2023 Tretinoin Acti ve 1 APPLIC TOPICAL 6 TIMES PER WEEK 45 October 22, 2023 12:00am venlafaxine (15 sources) Serotonin and Norepinephrine Reuptake Inhibitor Start: 11-17-2023 venlafaxine as directed, Refills(s) 0 Start Date: 11/17/23 Status: Ordered Start: 10-22-2023 take 1 tablet by feliberto th once daily at mealtime Venlafaxine Active 1 [...] 3 times a day prn Active Iron Fum,Or-Nopft-Mwadx,C No.9 (Iron Folate Plus) 125 mg iron- 1 mg capsule (1 source) Start: 10-22-2023 End: 10-22-2023 take 1 capsule by mouth once daily at mealtime Iron Fum,Ad-Exqfp-Oyqzk,C No.9 (Iron Folate Plus) 125 mg iron- [...] Start: 04-01-2023 take 1 tablet by feliberto once daily at bedtime as needed traMADol HCl 50 MG 1 tablet as needed Orally Once a day (QHS) for 7 days Mar, Active Problems Active Problems Problem Classification Problem Date Documented Date Episodic/Chronic Anxiety disorders (1 source) Anxiety 11-17-2023 Chronic Disorders of lipid metabolism (1 source) Hypercholesterolemia 11-17-2023 Chronic Essential hypertension (4 sources) Essential (primary) hypertension; Translations: [Essential hypertension] Onset: 2 11-17-2023 Chronic Malaise and fatigue (11 sources) Fatigue; Translations: [Other fatigue] Onset: 2 Episodic Menopausal disorders (2 sources) Menopausal and postmenopausal disorders; Translations: [Unspecified menopausal and perimenopausal disorder] Chronic Mood disorders (20 sources) Bipolar disorder; Translations: [Bipolar disorder, unspecified] Onset: 2 Resolved: 4 Chronic Nonmalignant breast conditions (4 sources) Breast lump; Translations: [Unspecified lump in the right breast, unspecified quadrant] Onset: 4 10-22-2023 Episodic Other acquired deformities (1 source) Scoliosis deformity of spine 11-17-2023 Chronic Other aftercare (8 sources) H/O: high risk medication; Translations: [Other snf (current) drug therapy] Episodic Other aftercare (5 sources) Other emt intermediate (current) drug therapy; Translations: [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] Onset: 2 Episodic Other aftercare (2 sources) Long-term current use of drug therapy; Translations: [Other snf (current) drug therapy] Episodic Other and ill-defined heart disease (1 source) Heart disease 11-17-2023 Chronic Other bone disease and musculoskeletal deformities (2 [...] mass index (BMI) 29.0-29.9, adult] Episodic Other nutritional; endocrine; and metabolic disorders (1 source) Overweight 11-17-2023 Episodic Other nutritional; endocrine; and metabolic disorders (1 source) Overweight in adulthood with body mass index of 25 or more but less than 30 11-19-2023 Episodic Other screening for suspected conditions (not mental disorders or infectious disease) (6 sources) Encounter for screening mammogram for malignant neoplasm of breast; Translations: [Ultrasonography of breast abnormal] Onset: 3 Episodic Other skin disorders (2 sources) Acne; Translations: [Acne, unspecified] 10-22-2023 Episodic Other skin disorders (1 source) Acne, unspecified; Translations: [Other acne] 10-22-2023 Episodic Otitis media and related conditions (2 sources) Non-suppurative otitis media; Translations: [Unspecified nonsuppurative otitis media, left ear] Episodic Residual codes; unclassified (1 source) Family history of malignant neoplasm of breast; Translations: [FAMILY HX MALIG NEOPLASM OF BREAST] Onset: 3 Episodic Residual codes; unclassified (1 source) Family history of malignant neoplasm of digestive organs; Translations: [FAM HX MALIG NEOPLASM DIGESTIV ORGN] Onset: 3 Episodic Residual codes; unclassified (2 sources) Tobacco user; Translations: [Tobacco use] Episodic Residual codes; unclassified (1 source) Chronic pain 11-17-2023 Episodic Spondylosis; intervertebral disc disorders; other back problems (8 sources) Solitary sacroiliitis; Translations: [Sacroiliitis, not elsewhere classified] Chronic Spondylosis; intervertebral disc disorders; other back problems (1 source) Radiculopathy, lumbar region Episodic Unclassified (3 sources) LOW BACK PAIN, UNSPECIFIED; Translations: [LOW BACK PAIN, UNSPECIFIED] Onset: 3 Unclassified (1 source) Low back pain, unspecified; Translations: [Low back pain, unspecified] Onset: 3 Past or Other Problems Problem Classification Problem Date Documented Da te Episodic/Chronic Unclassified (1 source) Lumbar pain M54.50 Unclassified (1 source) Other low back pain M54.59 Unclassified (1 source) LOW BACK PAIN, UNSPECIFIED; Translations: [LOW BACK PAIN, UNSPECIFIED] Onset: 12-06-2022 Results Test Name Value Interpretation Reference Range Facility Consent for Procedure/Surger yon 11-21-2023 Consent for Procedure/Surgery [id number] .00TIFF [facility] Facesheeton 11-20-2023 Facesheet [id number]#1 .00TIFF [facility] RAD - Ultrasound Reporton RAD - Ultrasound Report [id number] .00TIFF [facility] Ambulatory Visit Summaryon 0 11-19-2023 Ambulatory Visit Summary TESFAYERAIN OTERO :1960 Visit Date:11/19/2023 Ambulatory Visit Instructions Your Diagnosis Lesion of right nipple Your Care Team Attending Physician - BERONICA RAMIREZ, Dieter Masters Primary Care Physician - ASHA RAMIREZ, TRISTA This Is Your Medications List Contact prescribing physician if questions or concerns calcium carbonate lithium (lithium 300 mg oral tablet) omeprazole (omeprazole 20 mg Cap-DR) oxcarbazepine (oxcarbazepine 300 mg Tab) tretinoin topical (tretinoin Top 0.1% Crm) venlafaxine Procedures Performed History of bilateral breast implants, History of nasal sinus surgery, Stapedectomy, Tubal ligation. Discharge Vitals Heart Rate (Peripheral) 72 Respiratory Rate 16 Blood Pressure 132/92 Height 170 cm Height 67 in Weight 81.8 kg Weight 179.96 lb BMI 28.3 Medications What How Much When Instructions Unchanged calcium carbonate 1 Tablets By Mouth 2 times a day Contact prescribing physician if questions or concerns Unchanged lithium (lithium 300 mg oral tablet) 3 Tablets By Mouth At bedtime Contact prescribing physician if questions or concerns Unchanged omeprazole (omeprazole 20 mg Cap-DR) 1 Capsules By Mouth Every day Contact prescribing physician if questions or concerns Unchanged oxcarbazepine (oxcarbazepine 300 mg Tab) 1 Tablets By Mouth Every day Contact prescribing physician if questions or concerns Unchanged tretinoin topical (tretinoin Top 0.1% Crm) 1 Application Topical Once a day (at bedtime) Contact prescribing physician if questions or concerns Unchanged venlafaxine as directed Contact prescribing physician if questions or concerns Allergies metFORMIN (Hives) penicillin (Hives) Problems Ongoing - Any problem that you are currently receiving treatment for. Acne Anxiety BMI 28.0-28.9,adult Chronic depression Chronic pain Essential hypertension Heart disease Hypercholesterolemia Lesion of right nipple Overweight Scoliosis of lumbosacral spine Historical - Any problem that you are no longer receiving treatment for. Bipolar disorder Patient Survey You may receive a survey via text or e-mail asking about your office visit. Please share your experience with us by completing your survey. We appreciate your feedback and thank you for choosing us for your care. Normal [facility] Outside Mammographyon 2023 Outside Mammography [id number] .00TIFF Normal [facility] Physician Referralon 024 Physician Referral [id number] .00TIFF [facility] XR lumbar spine 6V w bending on 05-29-2023 XR lumbar spine 6V w bending [facility] [address] XRay Report Signed Patient: Rain Sweeney MR#: [id number] : 1960 Acct:[id number] Age/Sex: 62 / F ADM Date: 05/29/23 Loc: XD Room: Type: [facility] Attending Dr: Helio Barry MD Copies to: [...] Andrea Nina M.D.05/29/2023 7:00 PM Dictation Location: [place] [address] Transcribed By: [facility] 05/29/231899 Dictated By: Andrea Nina DO 05/29/231853 Signed By: 05/29/231899 Normal [facility] XR LSPINE 2_3 VIEWSon 2022 XR LSPINE [...] MAKEDA MÁRQUEZ Date: 2022-12-06 11:24 Normal [facility] LITHIUMon 11-27-2022 Sumrall (Eskalith(R)), Serum 0.8 mmol/L Normal 0.5-1.2 [facility] Comment on above: Result Comment: A co ncentration of 0.5-0.8 mmol/L is advised for long-term use; concentrations of up to 1.2 mmol/L may be necessary during acute treatment. Detection Limit = 0.1 <0.1 indicates None Detected Performed By: #### L ITHIUM ####[facility] [address] [place], [place] [address]QfDr. Laurel Buckner CREATININEon 11-26-2022 Creatinine [Mass/Vol] 0.97 mg/dL Normal 0.55-1.02 [facility] Comment on above: Performed By: #### T SH, CREA #### [facility] [address] [place] [address] [address] Laurel Buckner EGFR-AF SIERRA LEONEAN >60 Normal >=60 [facility] Comment on above: Performed By: #### T SH, CREA #### [facility] [address] [place] [address] [address] Laurel Buckner EGFR-NON AF SIERRA LEONEAN 59 mL/min/1.73m2 Critically low >=60 [facility] Comment on above: Performed By: #### T SH, CREA #### [facility] [address] [place] [address] [address] Laurel Buckner TSHon 11-26-2022 TSH 1.616 uIU/mL Normal 0.358-3.740 [facility] Comment on above: Performed By: #### T SH, CREA #### [facility] [address] [place] [address] [address] Laurel Buckner MG MAMM SCREEN 3D TOMY CADon 11-14-2022 MG MAMM SCREEN 3D TOMY CAD Patient: RAIN SWEENEY Exam Date: 11/14/2022 : 1960 Gender:F Ordering : DR TRISTA BARRY M.D. Admission #: [id number] Family : Order #: [id number] CLICK HERE TO VIEW EXAM RADIOLOGY REPORT [...] colon cancer at age 62. LOCATION: [facility] BREAST COMPOSITION: Heterogeneously dense,which may obscure small [...] MD on 11/14/2022 at 12:03 Normal [facility] LITHIUMon 05-16-2022 Sumrall (Eskalith(R)), Serum 0.8 mmol/L Normal 0.5-1.2 [facility] Comment on above: Result Comment: Plas ma concentration of 0.5 - 0.8 mmol/L are advised for long-term use; concentrations of up to 1.2 mmol/L may be necessary during acute treatment. Detection Limit = 0.1 <0.1 indicates None Detected Performed By: #### L ITHIUM #### [facility] [address] [place] [address] Dr. Laurel Buckner CBC AUTO DIFFon 05-15-2022 BASO # 0.1 103/ul Normal 0.0-0.1 [facility] Comment on above: Performed By: #### C BC #### [facility] [address] [place] [address] Dr. Laurel Buckner Basophils/100 WBC (Bld) 1.0 % Normal 0.2-2.0 [facility] Comment on above: Performed By: #### C BC #### [facility] [address] [place] [address] Dr. Laurel Buckner EO # 0.4 103/ul Normal 0.0-0.7 [facility] Comment on above: Performed By: #### C BC #### [facility] [address] [place] [address] Dr. Laurel Buckner Eosinophils/100 WBC (Bld) 5.3 % Normal 0.9-7.0 [facility] Comment on above: Performed By: #### C BC #### [facility] [address] [place] [address] Dr. Laurel Buckner Erythrocyte distribution width (RBC) [Ratio] 13.8 % Normal 11.0-15.0 [facility] Comment on above: Performed By: #### C BC #### [facility] [address] [place] [address] Dr. Laurel Buckner Hematocrit (Bld) [Volume fraction] 46.8 % Normal 36.0-48.0 [facility] Comment on above: Performed By: #### C BC #### [facility] [address] [place] [address] Dr. Laurel Buckner Hemoglobin (Bld) [Mass/Vol] 14.8 g/dL Normal 12.0-16.0 [facility] Comment on above: Performed By: #### C BC #### [facility] [address] [place] [address] Dr. Laurel Buckner IG # 0.07 10e3/ul Critically high 0.00-0.03 [facility] Comment on above: Performed By: #### C BC #### [facility] [address] [place] [address] Dr. Laurel Buckner IG % 1.0 % Critically high 0.0-0.[address] [facility] Comment on above: Performed By: #### C BC #### [facility] [address] [place] [address] Dr. Laurel Buckner LYMPH # 1.7 103/ul Normal 1.2-3.8 [facility] Comment on above: Performed By: #### C BC #### [facility] [address] [place] [address] Dr. Laurel Buckner Lymphocytes/100 WBC (Bld) 25.4 % Normal 20.5-60.0 [facility] Comment on above: Performed By: #### C BC #### [facility] [address] [place] [address] Dr. Laurel Buckner MANUAL DIFF REQ NO Normal [facility] Comment on above: Performed By: #### C BC #### [facility] [address] [place] [address] Dr. Laurel Buckner MCH (RBC) [Entitic mass] 29.5 pg Normal 26.7-34.0 [facility] Comment on above: Performed By: #### C BC #### [facility] [address] [place] [address] Dr. Laurel Buckner MCHC (RBC) [Mass/Vol] 31.6 g/dL Normal 29.9-35.2 [facility] Comment on above: Performed By: #### C BC #### [facility] [address] [place] [address] Dr. Laurel Buckner MCV (RBC) [Entitic vol] 93.4 fL Normal 81.0-99.0 [facility] Comment on above: Performed By: #### C BC #### [facility] [address] [place] [address] Dr. Laurel Buckner MONO # 0.6 103/ul Normal 0.3-0.8 [facility] Comment on above: Performed By: #### C BC #### [facility] [address] [place] [address] Dr. Laurel Buckner Monocytes/100 WBC (Bld) 8.4 % Normal 1.7-12.0 [facility] Comment on above: Performed By: #### C BC #### [facility] [address] [place] [address] Dr. Laurel Buckner NEUT # 4.0 103/ul Normal 1.4-6.5 [facility] Comment on above: Performed By: #### C BC #### [facility] [address] [place] [address] Dr. Laurel Buckner Neutrophils/100 WBC (Bld) 58.9 % Normal 43.0-75.0 [facility] Comment on above: Performed By: #### C BC #### [facility] [address] [place] [address] Dr. Laurel Buckner Platelet mean volume (Bld) [Entitic vol] 10.1 fL Normal 9.5-13.5 [facility] Comment on above: Performed By: #### C BC #### [facility] [address] [address] [address] Laurel Buckner PLT 279 103/ul Normal 150-450 [facility] Comment on above: Result Comment: smea r reviewed Performed By: #### C BC #### [facility] [address] [place] [address] [address] Laurel Buckner RBC 5.01 106/ul Normal 4.20-5.40 [facility] Comment on above: Performed By: #### C BC #### [facility] [address] [place] [address] Dr. Laurel Buckner WBC 6.8 103/ul Normal 4.0-11.0 [facility] Comment on above: Performed By: #### C BC #### [facility] [address] [place] [address] Dr. Laurel Buckner GLYCOHEMOGLOBIN A1Con 2021 ADA RECOMMENDATION SEE BELOW Normal [facility] Comment on above: Result Comment: ADA RECOMMENDED LIMIT 4.0 - 6.0 ADA THERAPEUTIC TARGET < 7.0 ACTION SUGGESTED > 7.0 Performed By: #### A 1C #### [facility] [address] [place] [address] Dr. Laurel Buckner Glucose [Mass/Vol] 97 mg/dL Normal [facility] Comment on above: Performed By: #### A 1C #### [facility] [address] [place] [address] Dr. Laurel Buckner HbA1c (Bld) [Mass fraction] 5.0 % Normal 4.5-6.2 [facility] Comment on above: Performed By: #### A 1C #### [facility] [address] [place] [address] Dr. Laurel Buckner LIPID PROFILEon 05-15-2022 CHOL-HDL RATIO NORM SEE BELOW Normal [facility] Comment on above: Result Comment: 3.3 - 4.4 LOW RISK 4.4 - 7.1 AVERAGE RISK 7.1 - 11.0 MODERATE RISK >11.0 HIGH RISK Performed By: #### L IPID, TSH, CMP #### [facility] [address] [place] [address] [address] Laurel Buckner Cholesterol [Mass/Vol] 279 mg/dL Critically high <=200 [facility] Comment on above: Performed By: #### L IPID, TSH, CMP #### [facility] [address] [place] [address] [address] Laurel Buckner Cholesterol in HDL [Mass/Vol] 76 mg/dL Critically high 40-60 [facility] Comment on above: Performed By: #### L IPID, TSH, CMP #### [facility] [address] [place] [address] [address] Laurel Buckner Cholesterol in LDL [Mass/Vol] 162.8 mg/dL Normal [facility] Comment on above: Performed By: #### L IPID, TSH, CMP #### [facility] [address] [address] [address] Laurel Buckner Cholesterol.total/Ch olesterol in HDL [Mass ratio] 3.7 {ratio} Normal [facility] Comment on above: Performed By: #### L IPID, TSH, CMP #### [facility] [address] [place] [address] [address] Laurel Buckner HDL NORMAL > or = 60 mg/dl - LO W CARDIOVASCULAR RISK <40 mg/dl - HIGH CARDIOVASCULAR RISK Normal [facility] Comment on above: Performed By: #### L IPID, TSH, CMP #### [facility] [address] [place] [address] [address] Laurel Buckner LDL CALC NORMAL SEE BELOW Normal [facility] Comment on above: Result Comment: <100 mg/dl OPTIMAL 100 - 129 mg/dl NEAR OR ABOVE OPTIMAL 130 - 159 mg/dl BORDERLINE HIGH 160 - 189 mg/dl HIGH >190 mg/dl VERY HIGH Performed By: #### L IPID, TSH, CMP #### [facility] [address] [address] [address] Laurel Buckner Triglyceride [Mass/Vol] 201 mg/dL Critically high <=150 [facility] Comment on above: Performed By: #### L IPID, TSH, CMP #### [facility] [address] [place] [address] [address] Laurel Buckner VLDL CALC 40.2 mg/dL Normal [facility] Comment on above: Performed By: #### L IPID, TSH, CMP #### [facility] [address] [address] [address] Laurel Buckner PROF 14(COMP METB)on 022 Albumin [Mass/Vol] 3.6 g/dL Normal 3.4-5.0 [facility] Comment on above: Performed By: #### L IPID, TSH, CMP #### [facility] [address] [address] [address] Laurel Buckner Albumin/Globulin [Mass ratio] 0.9 {ratio} Normal [facility] Comment on above: Performed By: #### L IPID, TSH, CMP #### [facility] [address] [place] [address] Dr. Laurel Buckner ALP [Catalytic activity/Vol] 110 U/L Normal 46-116 [facility] Comment on above: Performed By: #### L IPID, TSH, CMP #### [facility] [address] [address] [address] Laurel Buckner ALT [Catalytic activity/Vol] 22 U/L Normal 14-59 [facility] Comment on above: Performed By: #### L IPID, TSH, CMP #### [facility] [address] [address] [address] Laurel Buckner Anion gap [Moles/Vol] 10.8 mmol/L Normal [facility] Comment on above: Performed By: #### L IPID, TSH, CMP #### [facility] [address] [address] [address] Laurel Buckner AST [Catalytic activity/Vol] 11 U/L Critically low 15-37 [facility] Comment on above: Performed By: #### L IPID, TSH, CMP #### [facility] [address] [address] [address] Laurel Buckner Bilirubin [Mass/Vol] 0.3 mg/dL Normal 0.2-1.0 [facility] Comment on above: Performed By: #### L IPID, TSH, CMP #### [facility] [address] [address] [address] Laurel Buckner Calcium [Mass/Vol] 9.1 mg/dL Normal 8.5-10.1 [facility] Comment on above: Performed By: #### L IPID, TSH, CMP #### [facility] [address] [place] [address] Dr. Laurel Buckner Chloride [Moles/Vol] 103 mmol/L Normal 98-107 [facility] Comment on above: Performed By: #### L IPID, TSH, CMP #### [facility] [address] [place] [address] Dr. Laurel Buckner CO2 [Moles/Vol] 27.9 mmol/L Normal 21.0-32.0 [facility] Comment on above: Performed By: #### L IPID, TSH, CMP #### [facility] [address] [place] [address] Dr. Laurel Buckner Creatinine [Mass/Vol] 0.96 mg/dL Normal 0.55-1.02 [facility] Comment on above: Performed By: #### L IPID, TSH, CMP #### [facility] [address] [place] [address] Dr. Laurel Buckner EGFR-AF SIERRA LEONEAN >60 Normal >=60 [facility] Comment on above: Performed By: #### L IPID, TSH, CMP #### [facility] [address] [place] [address] Dr. Laurel Buckner EGFR-NON AF SIERRA LEONEAN 59 mL/min/1.73m2 Critically low >=60 [facility] Comment on above: Performed By: #### L IPID, TSH, CMP #### [facility] [address] [place] [address] Dr. Laurel Buckner Globulin (S) [Mass/Vol] 3.9 g/dL Normal [facility] Comment on above: Performed By: #### L IPID, TSH, CMP #### [facility] [address] [place] [address] Dr. Laurel Buckner Glucose [Mass/Vol] 90 mg/dL Normal 74-106 [facility] Comment on above: Performed By: #### L IPID, TSH, CMP #### [facility] [address] [place] [address] Dr. Laurel Buckner Potassium [Moles/Vol] 3.7 mmol/L Normal 3.5-5.1 [facility] Comment on above: Performed By: #### L IPID, TSH, CMP #### [facility] [address] [place] [address] Dr. Laurel Buckner Protein [Mass/Vol] 7.5 g/dL Normal 6.4-8.2 [facility] Comment on above: Performed By: #### L IPID, TSH, CMP #### [facility] [address] [place] [address] Dr. Laurel Buckner Sodium [Moles/Vol] 138 mmol/L Normal 136-145 [facility] Comment on above: Performed By: #### L IPID, TSH, CMP #### [facility] [address] [place] [address] Dr. Laurel Buckner Urea nitrogen [Mass/Vol] 16.0 mg/dL Normal 7.0-18.0 [facility] Comment on above: Performed By: #### L IPID, TSH, CMP #### [facility] [address] [place] [address] Dr. Laurel Buckner Urea nitrogen/Creatinine [Mass ratio] 16.7 mg/mg Normal [facility] Comment on above: Performed By: #### L IPID, TSH, CMP #### [facility] [address] [place] [address] Dr. Laurel Buckner TSHon 05-15-2022 TSH 3.094 uIU/mL Normal 0.358-3.740 [facility] Comment on above: Performed By: #### L IPID, TSH, CMP #### [facility] [address] [place] [address] Dr. Laurel Buckner Vital Signs Date Time Vital Sign Value Performing Clinician Facility 11-19-2023 13:56-0400 Blood Pressure Location Dieter BERONICA [facility] 11-19-2023 13:56-0400 Diastolic blood pressure 92 mm[Hg] Dieter BUSTOSL [facility] [place] 11-19-2023 13:56-0400 Heart rate 72 /min Dieter NILL [facility] [place] 11-19-2023 13:56-0400 Respiratory rate 16 /min Dieter NILL [facility] [place] 11-19-2023 13:56-0400 Systolic blood pressure 132 mm[Hg] Dieter NILL [facility] [place] 11-12-2023 10:20-0400 Body height 170.18 cm PHYSICIAN NO [facility] 11-12-2023 10:20-0400 Body mass index (BMI) [Ratio] 28 kg/m2 PHYSICIAN NO [facility] 11-12-2023 10:20-0400 Body weight 81.36 kg PHYSICIAN NO [facility] 11-12-2023 10:20-0400 Diastolic blood pressure 77 mm[Hg] PHYSICIAN NO [facility] 11-12-2023 10:20-0400 Heart rate 124 /min PHYSICIAN NO [facility] 11-12-2023 10:20-0400 Systolic blood pressure 124 mm[Hg] PHYSICIAN NO [facility] 10-22-2023 09:23-0400 Body height 170.18 cm PHYSICIAN NO [facility] 10-22-2023 09:23-0400 Body mass index (BMI) [Ratio] 29.1 kg/m2 PHYSICIAN NO [facility] 10-22-2023 09:23-0400 Body weight 84.36 kg PHYSICIAN NO [facility] 10-22-2023 09:23-0400 Diastolic blood pressure 85 mm[Hg] PHYSICIAN NO [facility] 10-22-2023 09:23-0400 Heart rate 106 /min PHYSICIAN NO [facility] 10-22-2023 09:23-0400 Systolic blood pressure 140 mm[Hg] PHYSICIAN NO [facility] 05-29-2023 14:00-0400 Body height 170.18 cm Helio Barry Other [employer] Other 05-29-2023 14:00-0400 Body mass index (BMI) [Ratio] 29.44 kg/m2 Helio Barry Other [employer] Other 05-29-2023 14:00-0400 Body weight 85.28 kg Helio Barry Other [employer] Other 05-05-2023 08:30-0400 Body height 170.18 cm Trista Barry Other [employer] Other 05-05-2023 08:30-0400 Body mass index (BMI) [Ratio] 29.44 kg/m2 Trista Barry Other [employer] Other 05-05-2023 08:30-0400 Body weight 85.28 kg Trista Barry Other [employer] Other 05-05-2023 08:30-0400 Diastolic blood pressure 82 mm[Hg] Trista Barry Other [employer] Other 05-05-2023 08:30-0400 Systolic blood pressure 128 mm[Hg] Trista Barry Other [employer] Other 04-01-2023 10:00-0400 Body height 170.18 cm Trista Barry Other [employer] Other 04-01-2023 10:00-0400 Body mass index (BMI) [Ratio] 29.13 kg/m2 Trista Barry Other [employer] Other 04-01-2023 10:00-0400 Body weight 84.37 kg Trista Barry Other [employer] Other 04-01-2023 10:00-0400 Diastolic blood pressure 86 mm[Hg] Trista Barry Other [employer] Other 04-01-2023 10:00-0400 Systolic blood pressure 148 mm[Hg] Trista Barry Other [employer] Other Encounters Encounter Date Encounter Type Care Provider Facility Start: 11-19-2023 End: 11-20-2023 ambulatory Dieter R NILL Facility:[facility] Start: 11-19-2023 End: 11-19-2023 Patient encounter procedure Dieter R NILL [facility] Start: 11-17-2023 ambulatory Dieter NILL Facility:[facility] Start: 11-14-2023 ambulatory Dieter NILL Facility:[facility] Start: 11-12-2023 End: 11-12-2023 ambulatory PHYSICIAN NO [facility] Work Phone: Start: 11-12-2023 End: 11-12-2023 Patient encounter procedure PHYSICIAN NO [facility] Work Phone: Start: 11-04-2023 ambulatory PHYSICIAN NO [facility] ility:[facility] Start: 10-22-2023 Patient encounter status PHYSICIAN NO [facility] Start: 10-22-2023 End: 10-22-2023 Encounter for general adult medical examination without abnormal findings PHYSICIAN NO [facility] Start: 10-22-2023 End: 10-22-2023 Patient encounter procedure PHYSICIAN NO [facility] Work Phone: Start: 09-09-2023 Registered Recurring PHYSICIAN NO RONNIE JORDY [facility] Start: 05-30-2023 End: 05-30-2023 ambulatory Helio Barry Other [employer] Other Start: 05-30-2023 Telephone encounter Helio Barry [facility] [employer] Start: 05-29-2023 End: 05-29-2023 ambulatory Trista Barry Facility:[facility] Start: 05-29-2023 Office outpatient ne w 30 minutes Helio Barry [facility] Start: 05-29-2023 End: 05-29-2023 ambulatory MD Trista Barry Work Phone: [facility] Work Phone: Start: 05-29-2023 End: 05-29-2023 Patient encounter procedure MD Trista Barry Work Phone: [facility] Work Phone: Start: 05-16-2023 End: 05-16-2023 ambulatory Trista Barry Other [employer] Other Start: 05-16-2023 Telephone encounter Trista Barry [facility] Start: 05-05-2023 End: 05-05-2023 ambulatory Trista Barry Other [employer] Other Start: 05-05-2023 Office outpatient vi sit 15 minutes Trista Barry [facility] Start: 04-07-2023 End: 04-07-2023 ambulatory Trista Barry Other [employer] Other Start: 04-07-2023 Telephone encounter Trista Barry [facility] Start: 04-01-2023 End: 04-01-2023 ambulatory Trista Barry Other [employer] Other Start: 04-01-2023 Office outpatient vi sit 15 minutes Trista Barry [facility] Start: 12-27-2022 ambulatory GOLDY GLOVER Facility: Start: 12-23-2022 End: 12-23-2022 ambulatory Goldy Glover Other [employer] Other Start: 12-23-2022 Office outpatient ne w 45 minutes Goldy Glover [facility] [place] Start: 12-06-2022 Telephone encounter Trista MORIN [facility] Start: 12-06-2022 End: 12-07-[address] TRISTA BARRY [employer] Other Start: 11-26-2022 End: 11-27-2022 ambulatory REGULO OWEN Facility:[facility] Start: 11-14-2022 End: 11-15-[address] TRISTA BARRY Facility:[facility] Start: 05-17-2022 Encounter for genera l adult medical examination without abnormal findings DR TRISTA BARRY [facility] Start: 05-15-2022 End: 05-16-[address] TRISTA BARRY Facility:[facility] Start: 05-15-2022 End: 05-16-2022 Encounter for general adult medical examination without abnormal findings DR TRISTA BARRY Facility:[facility] Start: 05-14-2022 Adult health examination Trista Barry Other [employer] Other Start: 04-18-2022 End: 04-18-2022 ambulatory Gurpreet Marily Other [employer] Other Start: 04-18-2022 Telephone encounter Gurpreet Marily [facility] Start: 02-27-2022 End: 02-27-2022 ambulatory Gurpreet Marily Other [employer] Other Start: 02-27-2022 Telephone encounter Gurpreet Marily [facility] [employer] Start: 02-05-2022 ambulatory GURPREET MARILY Facility:[facility] Start: 12-13-2021 End: 12-13-2021 ambulatory Gurpreet Marily Other [employer] Other Start: 12-13-2021 Telephone encounter Gurpreet Marily [facility] Start: 09-19-2021 End: 09-19-2021 ambulatory Gurpreet Marily Other [employer] Other Start: 09-19-2021 Telephone encounter Gurpreet [facility] Start: 09-05-2021 End: 09-05-2021 ambulatory [facility] Other [facility] [employer] Other Start: 09-05-20[facility] Date Procedure Procedure Detail Performing Clinician Start: 05-29-2023 X-ray of lumbar spin e, six views including bending views MD Trista Barry Work Phone: History of bilateral breast implants Dieter LOCO History of nasal sin us surgery Dieter LOCO Ligation of fallopian tube Sarath barksdale BERONICA Screening for malign ant neoplasm of breast Trista Barry Other Screening for malign ant neoplasm of colon Trista Barry Other Stapedectomy Dieter LOCO Plan of Treatment Date Care Activity Detail Author Start: 11-12-2023 Patient referral [facility] Work Phone: MG Breast - bilatera l Diagnostic [facility] Patient Education Yearly Physica l for Adults [facility] Work Phone: Patient referral [facility] Work Phone: Immunizations Immunization Date Immunization Notes Care Provider Ronnie bran 10-12-2022 influenza virus vaccine, unspecified formulation Dieter LOCO [facility] [place] 10-12-2022 influenza, injectabl e, quadrivalent, preservative free Trista Barry Other [facility] 02-19-2022 diphtheria, tetanus toxoids and acellular pertussis vaccine, unspecified formulation Trista Barry Other [facility] 02-19-2022 tetanus toxoid, reduced diphtheria toxoid, and acellular pertussis vaccine, adsorbed Trista Barry Other [facility] 08-07-2021 COVID-19 Vaccine Moderna - Documentation Purposes Only Trista Barry Other [facility] 05-28-2021 influenza virus vaccine, split virus (incl. purified surface antigen) Trista Asha Other [employer] Other 05-28-2021 influenza virus vaccine, unspecified formulation PHYSICIAN NO FAMILY [facility] 12-09-2020 COVID-19 Vaccine Moderna - Documentation Purposes Only Trista Barry Other [facility] 11-11-2020 COVID-19 Vaccine Moderna - Documentation Purposes Only Trista Barry Other [facility] Payers Date Payer Category Payer Unknown [id number] 2.16.84 [id number] 1960 Unknown [id number] 2.16.84 [id number] 1960 Unknown [id number] 2.16.84 [id number] 1962 Unknown [id number] 2.16.84 [id number] 1962 Unknown [id number] 2.16.84 [id number] 1962 Unknown [id number] 2.16.84 [id number] 1962 Unknown [id number] 2.16.8 [id number] 1962 Unknown [id number] 2.16.8 [id number] 1959 Private Health Insurance [id number] 1959 Private Health Insurance [id number] Self-pay [facility] [id number] Private Health Insurance [id number] Unknown [id number] 2.16.8 [id number] Social History Date Type Detail Facility Sex Assigned At [facility] Start: 1960 Sex Assigned At Female F [facility] Start: 05-29-2023 End: 11-19-2023 Tobacco smoking status OHIS Never smoked tobacco (finding) [facility] Tobacco smoking status Never Gener al Surgery [facility] Functional Status Date Assessment Result Facility 11-19-2023 Functional Status N/A General Guy rgery [facility] Clinical Notes 12-13-2021 to 11-19-2023 Note Date & Type Note Facility 11-19-2023 Note Chief Complaint consultation for abnormal breast US HPI Staff 63 year old female presents on consultation from Dr. Barry for cat 4 breast US. Reports right nipple mass/lesion x 6 months. Reports gradually increasing in size. Denies pain, nipple inversion or discharge. No known family history of breast cancer. History of Present Illness 63 yo female with h/o htn, hyperlipidemia, CAD, anxiety/depression, referred for right nipple skin lesion; normal mammograms, right breast US with 8 x 7 x 4 mm mass/complex cyst of medial right nipple; patient reports nipple lesion increasing in size since she first noticed it 6 months ago; no asa or NSAID use; no tobacco use. Review of Systems PHQ Score Initial Depression Screen Score: 0 SCORE ROS - Provider Constitutional: no fever, no sweats, no weight loss. Eyes: no glasses, no blurred vision, no visual loss. ENMT: no dentures, no hoarseness, no swallowing difficulties, no hearing loss, no ear infection(s), no nose bleeds. Cardiovascular: normal blood pressure, no chest pain, regular heartbeat, no heart murmur. Respiratory: no shortness of breath, no cough, no asthma, no wheezing. Gastrointestinal: no nausea, no vomiting, no diarrhea, no constipation, no blood in stool, no change in bowel habits, no abdominal pain, no hepatitis. Genitourinary: no kidney stones, no urine infection, no dysuria. Musculoskeletal: no pain, no weakness. Skin: no changing moles, no rash, yes skin lumps. Neurologic: no seizures, no epilepsy, no headache. Psychiatric: no emotional or psychiatric problem. Heme/Lymph: no bleeding problems, no anemia, no blood clots, no transfusions. Allergy/Immunologic: no swollen lymph nodes/glands, no IV drug abuse. Other: Additional ROS info: Except as noted in the above Review of Systems and in the History of Present Illness, all other systems have been reviewed and are negative or noncontributory. Physical Exam Vitals & Measurements HR: 72(Peripheral) RR: 16 BP: 132/92 HT: 67 in HT: 170 cm WT: 81.8 kg WT: 179.96 lb BMI: 28.3 HEENT: normal conjunctiva, sclera clear, no scleral icterus, EOM intact, PERRLA. oral mucosa moist without lesions Neck: trachea midline , no mass, symmetric, no thyromegaly or nodules. no adenopathy Respiratory: lungs CTA, respirations non labored. Cardiovascular: regular rate and rhythm, no murmur, , no pedal edema or varicosities. Chest (Breasts): symmetric, no discharge, no palpable breast or axillary lumps, masses or tenderness. medial right nipple with 7 mm dilated area, no skin ulceration or mass, no drainage or tenderness. Gastrointestinal: soft, non distended, no tenderness, no masses, no palpable hernias, diastasis recti no, no hepatosplenomegaly. normal bs Lymphatic: no cervical adenopathy, no axillary adenopathy, nosupraclavicular adenopathy. Musculoskeletal: normal gait, digits and nails without infection, nodes, cyanosis, clubbing. Skin: no rashes, no lesions, no ulcers, no subcutaneous nodules, induration. Psychiatric/Neuro: oriented to time, place, person, judgement normal, affect appropriate for age, insight intact, no focal deficits. Tests: , x-rays reviewed, review of old records completed , Discussed surgical options, risks, and possible complications with patient. Assessment/Plan 1. Lesion of right nipple (N64.9: Disorder of breast, unspecified) plan excisional biopsy under anesthesia for definitive diagnosis/treatment, informed consent obtained. Levaquin 750 mg IV prior to OR SCDs Follow-up No qualifying data available Problem List/Past Medical History Ongoing Acne Anxiety BMI 28.0-28.9,adult Chronic depression Chronic pain Essential hypertension Heart disease Hypercholesterolemia Lesion of right nipple Overweight Scoliosis of lumbosacral spine Historical Bipolar disorder Procedure/Surgical History History of bilateral breast implants, History of nasal sinus surgery, Stapedectomy, Tubal ligation. Medications calcium carbonate, 1 tab(s), Oral, BID lithium 300 mg oral tablet, 900 mg= 3 tab(s), Oral, Bedtime omeprazole 20 mg Cap-DR, 20 mg= 1 cap(s), Oral, Daily oxcarbazepine 300 mg Tab, 300 mg= 1 tab(s), Oral, Daily tretinoin Top 0.1% Crm, 1 susan, Topical, Once a day (at bedtime) venlafaxine Allergies metFORMIN (Hives) penicillin (Hives) Social History Alcohol - Denies Alcohol Use, 11/19/2023 Substance Abuse - Denies Substance Abuse, 11/19/2023 Tobacco Never (less than 100 in lifetime) Tobacco Use:. Never Smokeless Tobacco Use:., 11/19/2023 Family History Alcoholism: Father and Sister. Bipolar: Father. Primary malignant neoplasm of female breast: Aunt. Immunizations Vaccine Date Status influenza virus vaccine, inactivated 10/12/2022 Recorded SARS-CoV-2 (COVID-19) mRNA-1273 vaccine 08/07/2021 Recorded SARS-CoV-2 (COVID-19) mRNA-1273 vaccine 12/09/2020 Recorded SARS-CoV-2 (COVID-19) mRNA-1273 vaccine 11/11/2020 Recorded [facility] Comment on above: Result Comment: Elec tronically Signed By: BERONICA RAMIREZ, Dieter Bryson\Date and Time Signed: 11/19/23 14:27 EDT 05-29-2023 Evaluation note Encounter Date Diagnosis Assessment [...] may be able to offer some advice. [employer] Other 09-25-2023 Evaluation note* Encounter Date Diagnosis Assessment Notes Treatment Notes Treatment Clinical Notes Apr, Right lumbar radiculopathy (ICD-10 - M54.16) Presently in PT - discharged on 05/02. Requests MRI and referral. [employer] Other 08-22-2023 Evaluation note* Encounter Date Diagnosis Assessment Notes Treatment Notes Treatment Clinical Notes Mar, Right hip pain (ICD-10 - M25.551) PT paper given to pt. Handout for home stretches given as well. Tramadol to help her sleep. She understands it is a controlled substance and could be sedating. [employer] Other 05-15-2023 Evaluation note* Encounter Date Diagnosis [...] Above note written by Morris Flor MA, Name Plate St[employer]per. Edited and approved by Dr. Goldy Glover [...] negative findings were considered in medical decision-making. [employer] Other 04-28-2023 Evaluation note* Encounter Date Diagnosis Assessment Notes Treatment Notes Treatment Clinical Notes Nov, Lumbar pain (ICD-10 - M54.50) [employer] Other 07-20-2022 Evaluation note* Encounter Date Diagnosis Assessment Notes Treatment Notes Treatment Clinical Notes Feb, Bipolar 1 disorder, depressed (ICD-10 - F31.9) [employer] Other 05-05-2022 Evaluation note* Encounter Date Diagnosis Assessment Notes Treatment Notes Treatment Clinical Notes December, Bipolar 1 disorder, depressed (ICD-10 - F31.9) [employer] Other Evaluation + Plan note No data available for this section [facility] [place] Evaluation noteNo InformationNort [employer] Other Evaluation noteNo assessment information available [facility] Work Phone: Evaluation note* Diagnosis Onset Date Resolution Status Acne acute Breast mass, right acute Wellness examination acute Abnormal ultrasound of breast acute [facility] Work Phone: History general Narrative - Reported* Type Description Date Medical History bipolar disorder Medical History anxiety disorder Medical History high blood pressure Surgical History 2 boul ligation 1999 Surgical History stepidectomy 2008 Surgical History sinus surgery 2015 Hospitalization History See surgical hx Hospitalization History child [employer] Other History general Narrative - Reported* Type Description Date Medical History bipolar disorder Medical History anxiety disorder Medical History high blood pressure Medical History Fatigue Medical History High risk medication use Surgical History 2 boul ligation 2000 Surgical History stepidectomy 2009 Surgical History sinus surgery 2014 Surgical History LUBAL LIGATION Hospitalization History See surgical hx Hospitalization History [facility] [employer] Other Hissurm general Narrative - Reported* Type Description Date Medical History bipolar disorder Medical History anxiety disorder Medical History high blood pressure Medical History Fatigue Medical History High risk medication use Medical History heart disease Medical History high cholesterol Medical History chronic depression Medical History obesity Surgical History 2 boul ligation 1999 Surgical History stapedectomy 2008 Surgical History sinus surgery 2014 Surgical History LUBAL LIGATION Hospitalization History See surgical hx Hospitalization History [facility] [employer] Other Hospital Discharge instructionsAmbulatory Orders* Referral to General Surgery Time Frame: 11/12/23, Location: [facility] Work Phone: Hospital Discharge instructions No data available for this section [facility] [place] Progress note No data available for this section [facility] [place] Reason for Referral Reason piriformis pain Diagnosis 1 Adolescent idiopathi c scoliosis of lumbosacral spine (M41.127) Referral Organization [facility] Ne urosurgery Referring Provider First Name Helio Referring Provider Last Name Asha Referring Provider Specialty Neurologica l Surgery Referred Organization [facility] Referred Provider Danny Solares Referred Address [address] [place], [place],[address] Referred Provider Specialty Orthopaedic Surgery Referral Priority Routine Reason Requests Dr. Helio qureshi - MRI pending. Went to [facility] and had xrays on 05/05. Diagnosis 1 Right lumbar radicul opathy (M54.16) Referral Organization [facility] C linic Referring Provider First Name Trista Referring Provider Last Name Asha Referring Provider Specialty Family Medi cine Referred Organization [facility] Neurosurgery [facility] Referred Address [address] [place], [place],[address] Referred Provider Specialty Neurological Surgery Referral Priority Routine Reason No preference on off ice - Lumbar pain - recent OV and xray - thanks Diagnosis 1 Lumbar pain (M54.50) Referral Organization [facility] linic Referring Provider First Name Trista Referring Provider [...] for Visit Chief Complaint m54.50 Chief Complaint Wellness review ultrasound Reason for Visit Acne Breast mass, right Wellness examination Abnormal ultrasound of breast Additional Source Comments REASON FOR VISIT (unrecogniz ed section and content) cancelled apptupdateupdate/r efillRefillsreferrallumbar xrayREF BY DR TRISTA BARRY FOR LUMBAR PAINReferral?TBHReferralMRIreferred by Dr. Sarath Barry right lumbar radicNeurosurgery Office Notes INFORMATION SOURCE (unrecogn ized section and content) DATE CREATED AUTHOR 12/25/2022 [facility] DATE CREATED AUTHOR AUTHOR'S ORGANIZ ATION 11/22/2023 [facility] DATE CREATED AUTHOR AUTHOR'S ORGANIZ ATION 12/10/2023 [facility] Care Teams (unrecognized sec tion and content) [...] BE BASED ON THE PRIMARY CLINICAL RECORDS. [facility] [employer] [facility]. provides no warranty or guarantee of the accuracy or completeness of information in this document.
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
== END 2023-12-15 08:58 | disposition home or self-care (01) ==
LOC: PST 08:57
PROVIDERS: PCP Family Medicine; Visit Provider Surgery
DX: Z01.810 Encounter for preprocedural cardiovascular examination (principal); Z01.818 Encounter for other preprocedural examination; N64.9 Disorder of breast, unspecified
CPT/HCPCS: 93005; G0463

== ENCOUNTER 2023-12-31 09:07 | Day surgery (SDC) | payer OTHER, SELFPAY ==
--- OUTSIDE RECORDS SUMMARY | 2023-12-15 09:21 | XMS_ITS | CCD ---
Author Organization [facility] Care Team Providers Care Slot Host Name Role Phone Gurpreet Calixto Unavailable Trista [...] Provider MD Trista Barry Primary Care Provider [phone] Helio Barry Unavailable NO FAMILY, PHYSICIAN Primary Care Provider Unava MD Pan Gutierrez Attending Provider TRISTA BARRY Primary Care Physician Dieter LOCO Attending Unavailable Trista Barry Primary Care Unavailable Helio Barry Attending Unavailable Helio Barry Admitting Unavailable NO FAMILY, PHYSICIAN Primary Care Unavailable Pan Sanders Attending Unavailab le Pan Sanders Admitting Unavailab le Allergies Allergy Classification Reported Allergen(s) Allergy Type Date of Onset Reaction(s) Facility (6 sources) Penicillins Drug allergy 4 [facility] (11 sources) metFORMIN; Translations: [metformin] Drug Allergy 4 Weal (disorder) [facility] (8 sources) Substance with penicillin structure and antibacterial mechanism of action (substance) [facility] Other (2 sources) Penicillin; Translations: [penicillin] Drug Allergy Weal (disorder) [facility] [place] (1 source) metFORMIN Drug Allergy [address] [facility] Repository (1 source) Penicillins Drug allergy (disorder) [address] [facility] Rep[facility] Medications Current Medications Medication Drug Class(es) [...] mo uth three times daily at bedtime [place] Carbonate Active MG PO Three times daily October 22, 2023 9:33am [employer] tablets Orally at HS; Note: Source Status: [id number] mg as needed; Refills: 0; Provider: Asha Cadet ( ) Start: 10-22-2023 End: 10-22-2023 take 3 tablets by mouth at bedtime [place] Carbonate Discontinued MG PO October 22, 2023 12:00am October 22, 2023 9:34am [employer] tablets Orally at HS; Note: Source Status: [id number] mg as needed; Refills: 0; Provider: Asha Cadet ( ) take 3 tablets by mo [facility] at bedtime [place] Carbonate ER 300 MG 3 tablets Orally at HS for 90 days 900-1200 mg as needed Active take 4 tablets by mo uth every twenty-four hours [place] Carbonate ER 300 MG 4 tablets Orally [...] Omeprazole; Note: Source Status: TakingOTC; Provider: Asha Cadte ( ) Omeprazole OTC A ctive OXcarbazepine [...] 3 times a day prn Active Iron Fum,Fq-Mbagl-Hkrbf,C No.9 (Iron Folate Plus) 125 mg iron- 1 mg capsule (1 source) Start: 10-22-2023 End: 10-22-2023 take 1 capsule by mouth once daily at mealtime Iron Fum,Hb-Xltri-Xzawg,C No.9 (Iron Folate Plus) 125 mg iron- [...] sources) H/O: high risk medication; Translations: [Other jail (current) drug therapy] Episodic Other aftercare (5 sources) 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; Translations: [OTH APPLIANCE COUNSELOR CURRENT DRUG THERAPY] Onset: 2 Episodic Other aftercare (2 sources) Long-term current use of drug therapy; Translations: [Other jail (current) drug therapy] Episodic Other and ill-defined [...] for Procedure/Surger yon 11-21-2023 Consent for Procedure/Surgery [id number] .00TIFF [facility] Facesheeton 11-20-2023 Facesheet [id number]#1 .00TIFF [facility] RAD - Ultrasound Reporton RAD - Ultrasound Report [id number]#1 .00TIFF [facility] Ambulatory Visit Summaryon 0 11-19-2023 Ambulatory Visit [...] for choosing us for your care. Normal [facility] Outside Mammographyon 2023 Outside Mammography [id number]#1 .00TIFF Normal [facility] Physician Referralon 024 Physician Referral [id number] .00TIFF [facility] XR lumbar spine 6V w bending on 05-29-2023 XR lumbar spine 6V w bending [place] [address] XRay Report Signed Patient: Rain Sweeney MR#: [id number] : 1960 Acct:[id number] Age/Sex: 62 / F ADM Date: 05/29/23 Loc: XD Room: Type: [facility] Attending Dr: Helio Barry MD Copies to: [...] Andrea Nina M.D.05/29/2023 7:00 PM Dictation Location: [place] [address] Transcribed By: [facility] 05/29/231899 Dictated By: Andrea Nina DO 05/29/231853 Signed By: 05/29/231899 Normal [facility] XR LSPINE 2_3 VIEWSon [...] MAKEDA MÁRQUEZ Date: 2022-12-06 11:24 Normal [facility] LITHIUMon 11-27-2022 [place] (Eskalith(R)), Serum 0.8 mmol/L Normal 0.5-1.2 [facility] Comment on above: Result Comment: A co ncentration of 0.5-0.8 mmol/L is advised for long-term use; concentrations of up to 1.2 mmol/L may be necessary during acute treatment. Detection Limit = 0.1 <0.1 indicates None Detected Performed By: #### L ITHIUM ####[facility] [id number] [place], [place] [address]TtDr. Laurel Buckner CREATININEon 11-26-2022 Creatinine [Mass/Vol] 0.97 mg/dL Normal 0.55-1.02 [facility] Comment on above: Performed By: #### T SH, CREA #### [facility] [address] [address] [address] Laurel Buckner EGFR-AF SAUDI ARABIAN >60 Normal >=60 [facility] Comment on above: Performed By: #### T SH, CREA #### [facility] [address] [address] [address] Laurel Buckner EGFR-NON AF SAUDI ARABIAN 59 mL/min/1.73m2 Critically low >=60 [facility] Comment on above: Performed By: #### T SH, CREA #### [facility] [address] [address] [address] Laurel Buckner TSHon 11-26-2022 TSH 1.616 uIU/mL Normal 0.358-3.740 [facility] Comment on above: Performed By: #### T SH, CREA #### [facility] [address] [address] [address] Laurel Buckner MG MAMM SCREEN 3D TOMY CADon 11-14-2022 MG MAMM SCREEN 3D TOMY CAD Patient: RAIN SWEENEY Exam Date: 11/14/2022 : 1960 Gender:F Ordering : DR TRISTA BARRY M.D. Admission #: [id number] Family : Order #: [id number] CLICK HERE TO VIEW EXAM RADIOLOGY REPORT [...] colon cancer at age 62. LOCATION: [facility] BREAST COMPOSITION: Heterogeneously dense,which may obscure [...] MD on 11/14/2022 at 12:03 Normal [facility] LITHIUMon 05-16-2022 [place] (Eskalith(R)), Serum 0.8 mmol/L Normal 0.5-1.2 [facility] Comment on above: Result Comment: Plas ma concentration of 0.5 - 0.8 mmol/L are advised for long-term use; concentrations of up to 1.2 mmol/L may be necessary during acute treatment. Detection Limit = 0.1 <0.1 indicates None Detected Performed By: #### L ITHIUM #### [facility] [address] [place] [address] Dr. Laurel Buckner CBC AUTO DIFFon 05-15-2022 BASO # 0.1 103/ul Normal 0.0-0.1 [facility] Comment on above: Performed By: #### C BC #### [facility] [address] [place] [address] Dr. Laurel Buckner Basophils/100 WBC (Bld) 1.0 % Normal 0.2-2.0 [facility] Comment on above: Performed By: #### C BC #### [facility] [address] [place] [address] Dr. Laurel Buckner EO # 0.4 103/ul Normal 0.0-0.7 [facility] Comment on above: Performed By: #### C BC #### [facility] [address] [place] [address] Dr. Laurel Buckner Eosinophils/100 WBC (Bld) 5.3 % Normal 0.9-7.0 [facility] Comment on above: Performed By: #### C BC #### [facility] [address] [place] [address] Dr. Laurel Buckner Erythrocyte distribution width (RBC) [Ratio] 13.8 % Normal 11.0-15.0 [facility] Comment on above: Performed By: #### C BC #### [facility] [address] [place] [address] Dr. Laurel Buckner Hematocrit (Bld) [Volume fraction] 46.8 % Normal 36.0-48.0 [facility] Comment on above: Performed By: #### C BC #### [facility] [address] [place] [address] Dr. Laurel Buckner Hemoglobin (Bld) [Mass/Vol] 14.8 g/dL Normal 12.0-16.0 [facility] Comment on above: Performed By: #### C BC #### [facility] [address] [place] [address] Dr. Luarel Buckner IG # 0.07 10e3/ul Critically high 0.00-0.03 [facility] Comment on above: Performed By: #### C BC #### [facility] [address] [place] [address] Dr. Laurel Buckner IG % 1.0 % Critically high 0.0-0.5 [facility] Comment on above: Performed By: #### C BC #### [facility] [address] [place] [address] Dr. Laurel Buckner LYMPH # 1.7 103/ul Normal 1.2-3.8 [facility] Comment on above: Performed By: #### C BC #### [facility] [address] [place] [address] Dr. Laurel Buckner Lymphocytes/100 WBC (Bld) 25.4 % Normal 20.5-60.0 [facility] Comment on above: Performed By: #### C BC #### [facility] [address] [place] [address] Dr. Laurel Buckner MANUAL DIFF REQ NO Normal [facility] Comment on above: Performed By: #### C BC #### [facility] [address] [place] [address] Dr. Laurel Buckner MCH (RBC) [Entitic mass] 29.5 pg Normal 26.7-34.0 [facility] Comment on above: Performed By: #### C BC #### [facility] [address] [place] [address] Dr. Laurel Buckner MCHC (RBC) [Mass/Vol] 31.6 g/dL Normal 29.9-35.2 [facility] Comment on above: Performed By: #### C BC #### [facility] [address] [place] [address] Dr. Laurel Buckner MCV (RBC) [Entitic vol] 93.4 fL Normal 81.0-99.0 [facility] Comment on above: Performed By: #### C BC #### [facility] [address] [place] [address] Dr. Laurel Buckner MONO # 0.6 103/ul Normal 0.3-0.8 [facility] Comment on above: Performed By: #### C BC #### [facility] [address] [place] [address] Dr. Laurel Buckner Monocytes/100 WBC (Bld) 8.4 % Normal 1.7-12.0 [facility] Comment on above: Performed By: #### C BC #### [facility] [address] [place] [address] Dr. Laurel Buckner NEUT # 4.0 103/ul Normal 1.4-6.5 [facility] Comment on above: Performed By: #### C BC #### [facility] [address] [place] [address] Dr. Laurel Buckner Neutrophils/100 WBC (Bld) 58.9 % Normal 43.0-75.0 [facility] Comment on above: Performed By: #### C BC #### [facility] [address] [place] [address] Dr. Laurel Buckner Platelet mean volume (Bld) [Entitic vol] 10.1 fL Normal 9.5-13.5 [facility] Comment on above: Performed By: #### C BC #### [facility] [address] [address] [address] Laurel Buckner PLT 279 103/ul Normal 150-450 [facility] Comment on above: Result Comment: smea r reviewed Performed By: #### C BC #### [facility] [address] [address] [address] Laurel Buckner RBC 5.01 106/ul Normal 4.20-5.40 [facility] Comment on above: Performed By: #### C BC #### [facility] [address] [place] [address] Dr. Laurel Buckner WBC 6.8 103/ul Normal 4.0-11.0 [facility] Comment on above: Performed By: #### C BC #### [facility] [address] [place] [address] Dr. Laurel Buckner GLYCOHEMOGLOBIN A1Con 2021 ADA RECOMMENDATION SEE BELOW Normal [facility] Comment on above: Result Comment: ADA RECOMMENDED LIMIT 4.0 - 6.0 ADA THERAPEUTIC TARGET < 7.0 ACTION SUGGESTED > 7.0 Performed By: #### A 1C #### [facility] [address] [place] [address] Dr. Laurel Buckner Glucose [Mass/Vol] 97 mg/dL Normal [facility] Comment on above: Performed By: #### A 1C #### [facility] [address] [place] [address] Dr. Laurel Buckner HbA1c (Bld) [Mass fraction] 5.0 % Normal 4.5-6.2 [facility] Comment on above: Performed By: #### A 1C #### [facility] [address] [place] [address] Dr. Laurel Buckner LIPID PROFILEon 05-15-2022 CHOL-HDL RATIO NORM SEE BELOW Normal [facility] Comment on above: Result Comment: 3.3 - 4.4 LOW RISK 4.4 - 7.1 AVERAGE RISK 7.1 - 11.0 MODERATE RISK >11.0 HIGH RISK Performed By: #### L IPID, TSH, CMP #### [facility] [address] [address] [address] Laurel Buckner Cholesterol [Mass/Vol] 279 mg/dL Critically high <=200 [facility] Comment on above: Performed By: #### L IPID, TSH, CMP #### [facility] [address] [address] [address] Laurel Buckner Cholesterol in HDL [Mass/Vol] 76 mg/dL Critically high 40-60 [facility] Comment on above: Performed By: #### L IPID, TSH, CMP #### [facility] [address] [address] [address] Laurel Buckner Cholesterol in LDL [Mass/Vol] 162.8 mg/dL Normal [facility] Comment on above: Performed By: #### L IPID, TSH, CMP #### [facility] [address] [address] [address] Laurel Buckner Cholesterol.total/Ch olesterol in HDL [Mass ratio] 3.7 {ratio} Normal [facility] Comment on above: Performed By: #### L IPID, TSH, CMP #### [facility] [address] [address] [address] Laurel Buckner HDL NORMAL > or = 60 mg/dl - LO W CARDIOVASCULAR RISK <40 mg/dl - HIGH CARDIOVASCULAR RISK Normal [facility] Comment on above: Performed By: #### L IPID, TSH, CMP #### [facility] [address] [address] [address] Laurel Buckner LDL CALC NORMAL SEE BELOW Normal [facility] Comment on above: Result Comment: <100 mg/dl OPTIMAL 100 - 129 mg/dl NEAR OR ABOVE OPTIMAL 130 - 159 mg/dl BORDERLINE HIGH 160 - 189 mg/dl HIGH >190 mg/dl VERY HIGH Performed By: #### L IPID, TSH, CMP #### [facility] [address] [address] [address] Laurel Buckner Triglyceride [Mass/Vol] 201 mg/dL Critically high <=150 [facility] Comment on above: Performed By: #### L IPID, TSH, CMP #### [facility] [address] [address] [address] Laurel Buckner VLDL CALC 40.2 mg/dL Normal [facility] Comment on above: Performed By: #### L IPID, TSH, CMP #### [facility] [address] [address] [address] Laurel Buckner PROF 14(COMP METB)on 022 Albumin [Mass/Vol] 3.6 g/dL Normal 3.4-5.0 [facility] Comment on above: Performed By: #### L IPID, TSH, CMP #### [facility] [address] [address] [address] Laurel Buckner Albumin/Globulin [Mass ratio] 0.9 {ratio} Normal [facility] Comment on above: Performed By: #### L IPID, TSH, CMP #### [facility] [address] [place] [address] Dr. Laurel Buckner ALP [Catalytic activity/Vol] 110 U/L Normal 46-116 [facility] Comment on above: Performed By: #### L IPID, TSH, CMP #### [facility] [address] [address] [address] Laurel Buckner ALT [Catalytic activity/Vol] 22 U/L Normal 14-59 [facility] Comment on above: Performed By: #### L IPID, TSH, CMP #### [facility] [address] [address] [address] Laurel Buckner Anion gap [Moles/Vol] 10.8 mmol/L Normal [facility] Comment on above: Performed By: #### L IPID, TSH, CMP #### [facility] [address] [address] [address] Laurel Buckner AST [Catalytic activity/Vol] 11 U/L Critically low 15-37 [facility] Comment on above: Performed By: #### L IPID, TSH, CMP #### [facility] [address] [address] [address] Laurel Buckner Bilirubin [Mass/Vol] 0.3 mg/dL Normal 0.2-1.0 [facility] Comment on above: Performed By: #### L IPID, TSH, CMP #### [facility] [address] [address] [address] Laurel Buckner Calcium [Mass/Vol] 9.1 mg/dL Normal 8.5-10.1 [facility] Comment on above: Performed By: #### L IPID, TSH, CMP #### [facility] [address] [place] [address] Dr. Laurel Buckner Chloride [Moles/Vol] 103 mmol/L Normal 98-107 [facility] Comment on above: Performed By: #### L IPID, TSH, CMP #### [facility] [address] [place] [address] Dr. Laurel Buckner CO2 [Moles/Vol] 27.9 mmol/L Normal 21.0-32.0 [facility] Comment on above: Performed By: #### L IPID, TSH, CMP #### [facility] [address] [place] [address] Dr. Laurel Buckner Creatinine [Mass/Vol] 0.96 mg/dL Normal 0.55-1.02 [facility] Comment on above: Performed By: #### L IPID, TSH, CMP #### [facility] [address] [place] [address] Dr. Lauerl Buckner EGFR-AF SAUDI ARABIAN >60 Normal >=60 [facility] Comment on above: Performed By: #### L IPID, TSH, CMP #### [facility] [address] [place] [address] Dr. Laurel Buckner EGFR-NON AF SAUDI ARABIAN 59 mL/min/1.73m2 Critically low >=60 [facility] Comment on above: Performed By: #### L IPID, TSH, CMP #### [facility] [address] [place] [address] Dr. Laurel Buckner Globulin (S) [Mass/Vol] 3.9 g/dL Normal [facility] Comment on above: Performed By: #### L IPID, TSH, CMP #### [facility] [address] [place] [address] Dr. Laurel Buckner Glucose [Mass/Vol] 90 mg/dL Normal 74-106 [facility] Comment on above: Performed By: #### L IPID, TSH, CMP #### [facility] [address] [place] [address] Dr. Laurel Buckner Potassium [Moles/Vol] 3.7 mmol/L Normal 3.5-5.1 [facility] Comment on above: Performed By: #### L IPID, TSH, CMP #### [facility] [address] [place] [address] Dr. Laurel Buckner Protein [Mass/Vol] 7.5 g/dL Normal 6.4-8.2 [facility] Comment on above: Performed By: #### L IPID, TSH, CMP #### [facility] [address] [place] [address] Dr. Laurel Buckner Sodium [Moles/Vol] 138 mmol/L Normal 136-145 [facility] Comment on above: Performed By: #### L IPID, TSH, CMP #### [facility] [address] [place] [address] Dr. Laurel Buckner Urea nitrogen [Mass/Vol] 16.0 mg/dL Normal 7.0-18.0 [facility] Comment on above: Performed By: #### L IPID, TSH, CMP #### [facility] [address] [place] [address] Dr. Laurel Buckner Urea nitrogen/Creatinine [Mass ratio] 16.7 mg/mg Normal [facility] Comment on above: Performed By: #### L IPID, TSH, CMP #### [facility] [address] [place] [address] Dr. Laurel Buckner TSHon 05-15-2022 TSH 3.094 uIU/mL Normal 0.358-3.740 [facility] Comment on above: Performed By: #### L IPID, TSH, CMP #### [facility] [address] [place] [address] Dr. Laurel Buckner Vital Signs Date Time Vital Sign Value Performing Clinician Facility 11-19-2023 13:56-0400 Blood Pressure Location Dieter BERONICA [facility] [place] 11-19-2023 13:56-0400 Diastolic blood pressure 92 mm[Hg] Dieter BUSTOSL [facility] [place] 11-19-2023 13:56-0400 Heart rate 72 /min Dieter NILL [facility] [place] 11-19-2023 13:56-0400 Respiratory rate 16 /min Dieter NILL [facility] [place] 11-19-2023 13:56-0400 Systolic blood pressure 132 mm[Hg] Dieter NILL [facility] [place] 11-12-2023 10:20-0400 Body height 170.18 cm PHYSICIAN NO [facility] 11-12-2023 10:20-0400 Body mass index (BMI) [Ratio] 28 kg/m2 PHYSICIAN NO [facility] 11-12-2023 10:20-0400 Body weight 81.36 kg PHYSICIAN NO [facility] 11-12-2023 10:20-0400 Diastolic blood pressure 77 mm[Hg] PHYSICIAN NO [facility] 11-12-2023 10:20-0400 Heart rate 124 /min PHYSICIAN NO [facility] 11-12-2023 10:20-0400 Systolic blood pressure 124 mm[Hg] PHYSICIAN NO [facility] 10-22-2023 09:23-0400 Body height 170.18 cm PHYSICIAN NO [facility] 10-22-2023 09:23-0400 Body mass index (BMI) [Ratio] 29.1 kg/m2 PHYSICIAN NO [facility] 10-22-2023 09:23-0400 Body weight 84.36 kg PHYSICIAN NO [facility] 10-22-2023 09:23-0400 Diastolic blood pressure 85 mm[Hg] PHYSICIAN NO [facility] 10-22-2023 09:23-0400 Heart rate 106 /min PHYSICIAN NO [facility] 10-22-2023 09:23-0400 Systolic blood pressure 140 mm[Hg] PHYSICIAN NO [facility] 05-29-2023 14:00-0400 Body height 170.18 cm Helio Barry Other [employer] Other 05-29-2023 14:00-0400 Body mass index (BMI) [Ratio] 29.44 kg/m2 Helio Barry Other [employer] Other 05-29-2023 14:00-0400 Body weight 85.28 kg Helio Barry Other [employer] Other 05-05-2023 08:30-0400 Body height 170.18 cm Trista Barry Other [employer] Other 05-05-2023 08:30-0400 Body mass index (BMI) [Ratio] 29.44 kg/m2 Trista Barry Other [employer] Other 05-05-2023 08:30-0400 Body weight 85.28 kg Trista Barry Other [employer] Other 05-05-2023 08:30-0400 Diastolic blood pressure 82 mm[Hg] Trista Barry Other [employer] Other 05-05-2023 08:30-0400 Systolic blood pressure 128 mm[Hg] Trista Barry Other [employer] Other 04-01-2023 10:00-0400 Body height 170.18 cm Trista Barry Other [employer] Other 04-01-2023 10:00-0400 Body mass index (BMI) [Ratio] 29.13 kg/m2 Trista Barry Other [employer] Other 04-01-2023 10:00-0400 Body weight 84.37 kg Trista Barry Other [employer] Other 04-01-2023 10:00-0400 Diastolic blood pressure 86 mm[Hg] Trista Barry Other [employer] Other 04-01-2023 10:00-0400 Systolic blood pressure 148 mm[Hg] Trista Barry Other [employer] Other Encounters Encounter Date Encounter Type Care Provider Facility Start: 11-19-2023 End: 11-20-2023 ambulatory Dieter R NILL Facility:[facility] Start: 11-19-2023 End: 11-19-2023 Patient encounter procedure Dieter R NILL [facility] Start: 11-17-2023 ambulatory Dieter NILL Facility:[facility] Start: 11-14-2023 ambulatory Dieter NILL Facility:[facility] Start: 11-12-2023 End: 11-12-2023 ambulatory PHYSICIAN NO [facility] Work Phone: Start: 11-12-2023 End: 11-12-2023 Patient encounter procedure PHYSICIAN NO [facility] Work Phone: Start: 11-04-2023 ambulatory PHYSICIAN NO [facility] ility:[facility] [facility] Start[facility] 10-22-2023 Patient encounter status PHYSICIAN NO [facility] Start: 10-22-2023 End: 10-22-2023 Encounter for general adult medical examination without abnormal findings PHYSICIAN NO [facility] Start: 10-22-2023 End: 10-22-2023 Patient encounter procedure PHYSICIAN NO [facility] Work Phone: Start: 09-09-2023 Registered Recurring PHYSICIAN NO RONNIE JORDY [facility] Start: 05-30-2023 End: 05-30-2023 ambulatory Helio Barry Other [employer] Other Start: 05-30-2023 Telephone encounter Helio Barry [facility] [employer] Start: 05-29-2023 End: 05-29-2023 ambulatory Trista Barry Facility:[facility] Start: 05-29-2023 Office outpatient ne w 30 minutes Helio Barry [facility] Start: 05-29-2023 End: 05-29-2023 ambulatory MD Trista Barry Work Phone: [facility] Work Phone: Start: 05-29-2023 End: 05-29-2023 Patient encounter procedure MD Trista Barry Work Phone: [facility] Work Phone: Start: 05-16-2023 End: 05-16-2023 ambulatory Trista Barry Other [employer] Other Start: 05-16-2023 Telephone encounter Trista Barry [facility] Start: 05-05-2023 End: 05-05-2023 ambulatory Trista Barry Other [employer] Other Start: 05-05-2023 Office outpatient vi sit 15 minutes Trista Barry [facility] Start: 04-07-2023 End: 04-07-2023 ambulatory Trista Barry Other [employer] Other Start: 04-07-2023 Telephone encounter Trista Barry [facility] Start: 04-01-2023 End: 04-01-2023 ambulatory Trista Barry Other [employer] Other Start: 04-01-2023 Office outpatient vi sit 15 minutes Trista Barry [facility] Start: 12-27-2022 ambulatory GOLDY GLOVER Facility: Start: 12-23-2022 End: 12-23-2022 ambulatory Goldy Glover Other [employer] Other Start: 12-23-2022 Office outpatient ne w 45 minutes Goldy Glover [facility] [place] Start: 12-06-2022 Telephone encounter Trista MORIN [facility] Start: 12-06-2022 End: 12-07-[address] TRISTA BARRY [employer] Other Start: 11-26-2022 End: 11-27-2022 ambulatory REGULO OWEN Facility:[facility] Start: 11-14-2022 End: 11-15-[address] TRISTA BARRY Facility:[facility] Start: 05-17-2022 Encounter for genera l adult medical examination without abnormal findings DR TRISTA BARRY [facility] Start: 05-15-2022 End: 05-16-[address] TRISTA BARRY Facility:[facility] Start: 05-15-2022 End: 05-16-2022 Encounter for general adult medical examination without abnormal findings DR TRISTA BARRY Facility:[facility] Start: 05-14-2022 Adult health examination Trista Barry Other [employer] Other Start: 04-18-2022 End: 04-18-2022 ambulatory Gurpreet Marily Other [employer] Other Start: 04-18-2022 Telephone encounter Gurpreet Marily [facility] Start: 02-27-2022 End: 02-27-2022 ambulatory Gurpreet Marily Other [employer] Other Start: 02-27-2022 Telephone encounter Gurpreet Marily [facility] [employer] [facility] [employer] [facility] Start: 02-05-2022 ambulatory GURPREET MARILY Facility:[facility] Start: 12-13-2021 End: 12-13-2021 ambulatory Gurpreet Marily Other [employer] Other Start: 12-13-2021 Telephone encounter Gurpreet Marily [facility] Start: 09-19-2021 End: 09-19-2021 ambulatory Gurpreet Marily Other [employer] Other Start: 09-19-2021 Telephone encounter Gurpreet [facility] Start: 09-05-2021 End: 09-05-2021 ambulatory [facility] Other [facility] Other Start: 09-05-[facility] Date Procedure Procedure Detail Performing [...] Activity Detail Author Start: 11-12-2023 Patient referral [facility] Work Phone: MG Breast - bilatera l Diagnostic [facility] Patient Education Yearly Physica l for Adults [facility] Work Phone: Patient referral [facility] Work Phone: Immunizations Immunization Date Immunization Notes Care Provider Ronnie bran 10-12-2022 influenza virus vaccine, unspecified formulation Dieter LOCO [facility] [place] 10-12-2022 influenza, injectabl e, quadrivalent, preservative free Trista Barry Other [facility] 02-19-2022 diphtheria, tetanus toxoids and acellular pertussis vaccine, unspecified formulation Trista Barry Other [facility] 02-19-2022 tetanus toxoid, reduced diphtheria toxoid, and acellular pertussis vaccine, adsorbed Trista Barry Other [facility] 08-07-2021 COVID-19 Vaccine Moderna - Documentation Purposes Only Trista Barry Other [facility] 05-28-2021 influenza virus vaccine, split virus (incl. purified surface antigen) Trista Asha Other [employer] Other 05-28-2021 influenza virus vaccine, unspecified formulation PHYSICIAN NO FAMILY [facility] 12-09-2020 COVID-19 Vaccine Moderna - Documentation Purposes Only Trista Barry Other [facility] 11-11-2020 COVID-19 Vaccine Moderna - Documentation Purposes Only Trista Barry Other [facility] Payers Date Payer Category Payer Unknown [id number] 2.16.84 [id number] 1960 Unknown [id number] 2.16.84 [id number] 1960 Unknown [id number] 2.16.84 [id number] 1962 Unknown [id number] 2.16.84 [id number] 1962 Unknown [id number] 2.16.84 [id number] 1962 Unknown [id number] 2.16.84 [id number] 1962 Unknown [id number] 2.16.8 [id number] 1962 Unknown [id number] 2.16.8 [id number] 1959 Private Health Insurance [id number] 1959 Private Health Insurance [id number] Self-pay [facility] [id number] Private Health Insurance [id number] Unknown [id number] 2.16.8 [id number] Social History Date Type Detail Facility Sex Assigned At [facility] Start: 1960 Sex Assigned At Female F [facility] Start: 05-29-2023 End: 11-19-2023 Tobacco smoking status TXIS Never smoked tobacco (finding) [facility] Tobacco smoking status Never Gener al Surgery [...] Recorded SARS-CoV-2 (COVID-19) mRNA-1273 vaccine 11/11/2020 Recorded [facility] Comment on above: Result Comment: Elec tronically [...] may be able to offer some advice. [employer] Other 09-25-2023 Evaluation note* Encounter Date Diagnosis Assessment Notes Treatment Notes Treatment Clinical Notes Apr, Right lumbar radiculopathy (ICD-10 - M54.16) Presently in PT - discharged on 05/02. Requests MRI and referral. [employer] Other 08-22-2023 Evaluation note* Encounter Date Diagnosis Assessment Notes Treatment Notes Treatment Clinical Notes Mar, Right hip pain (ICD-10 - M25.551) PT paper given to pt. Handout for home stretches given as well. Tramadol to help her sleep. She understands it is a controlled substance and could be sedating. [employer] Other 05-15-2023 Evaluation note* Encounter Date Diagnosis [...] Above note written by Morris Flor MA, Recreation Supervisor. Edited and approved by Dr. Goldy Glover [...] negative findings were considered in medical decision-making. [employer] Other 04-28-2023 Evaluation note* Encounter Date Diagnosis Assessment Notes Treatment Notes Treatment Clinical Notes Nov, Lumbar pain (ICD-10 - M54.50) [employer] Other 07-20-2022 Evaluation note* Encounter Date Diagnosis Assessment Notes Treatment Notes Treatment Clinical Notes Feb, Bipolar 1 disorder, depressed (ICD-10 - F31.9) [employer] Other 05-05-2022 Evaluation note* Encounter Date Diagnosis Assessment Notes Treatment Notes Treatment Clinical Notes December, Bipolar 1 disorder, depressed (ICD-10 - F31.9) [employer] Other Evaluation + Plan note No data available for this section General Surgery [place] Evaluation noteNo InformationNort [employer] Other Evaluation noteNo assessment information available [facility] Work Phone: Evaluation note* Diagnosis Onset Date Resolution Status Acne acute Breast mass, right acute Wellness examination acute Abnormal ultrasound of breast acute [facility] Work Phone: History general Narrative - Reported* Type Description Date Medical History bipolar disorder Medical History anxiety disorder Medical History high blood pressure Surgical History 2 boul ligation 1999 Surgical History stepidectomy 2008 Surgical History sinus surgery 2015 Hospitalization History See surgical hx Hospitalization History child [employer] Other History general Narrative - Reported* Type Description Date Medical History bipolar disorder Medical History anxiety disorder Medical History high blood pressure Medical History Fatigue Medical History High risk medication use Surgical History 2 boul ligation 2000 Surgical History stepidectomy 2009 Surgical History sinus surgery 2014 Surgical History LUBAL LIGATION Hospitalization History See surgical hx Hospitalization History [facility] Other Hisknvz general Narrative - Reported* Type Description Date [...] History See surgical hx Hospitalization History [facility] Other Hospital Discharge instructionsAmbulatory Orders* Referral to General Surgery Time Frame: 11/12/23, Location: [facility] Work Phone: Hospital Discharge instructions No data available for this section General Surgery [place] Progress note No data available for this section General Surgery [place] Reason for Referral Reason piriformis pain Diagnosis 1 Adolescent idiopathi c scoliosis of lumbosacral spine (M41.127) Referral Organization [facility] Referring Provider First Name Helio Referring Provider Last Name Asha Referring Provider Specialty Neurologica l Surgery Referred Organization [facility] Referred Provider Danny Solares Referred Address [address] [place], [place],[address] Referred Provider Specialty Orthopaedic Surgery Referral Priority Routine Reason Requests Dr. Helio qureshi - MRI pending. Went to [place] ER and had xrays on 05/05. Diagnosis 1 Right lumbar radicul opathy (M54.16) Referral Organization [facility] C linic Referring Provider First Name Trista Referring Provider Last Name Asha Referring Provider Specialty Family Medi cine Referred Organization [facility] Neurosurgery B [facility] Referred Address [address], [place],[address] Referred Provider Specialty Neurological Surgery Referral Priority Routine Reason No preference on off ice - Lumbar pain - recent OV and xray - thanks Diagnosis 1 Lumbar pain (M54.50) Referral Organization [facility] linic Referring Provider First Name Trista Referring [...] DATE CREATED AUTHOR AUTHOR'S ORGANIZ ATION 11/22/2023 Calvin [facility] DATE CREATED AUTHOR AUTHOR'S ORGANIZ ATION 12/10/2023 [facility] Care Teams (unrecognized sec tion [...] BE BASED ON THE PRIMARY CLINICAL RECORDS. [facility]. provides no warranty or guarantee of the accuracy or completeness of information in this document.
[2023-12-15 09:39] VITALS: BP 132/90; PULSE 110; TEMP 36.4; O2SAT 97; BMI 27.7
[2023-12-31] VITALS (7 sets, daily range): BP systolic 105–142; BP diastolic 52–78; PULSE 83–110; TEMP 36.5; O2SAT 92–96; BMI 27.2
--- NOTE | 2023-12-31 | OP_ITS ---
OPERATION DATE: 12/31/2023 PREOPERATIVE DIAGNOSIS: Right nipple lesion. POSTOPERATIVE DIAGNOSIS: Right nipple lesion. PROCEDURE: Excisional biopsy right nipple lesions. SURGEON: Dieter Wasserman M.D. ANESTHESIA: Monitored anesthesia care, as well as local with 0.5% Marcaine plain. ESTIMATED BLOOD LOSS: Less than 3 mL. INDICATIONS AND CONSENT: Patient is a 63-year-old female with history of enlarging solid lesion of the medial nipple. Indications, risks, benefits, alternatives of proceeding with excisional biopsy under local and monitored anesthesia care were explained extensively to the patient, including the risks of bleeding, infection, scarring, pain, need for further surgery or anesthetic complications. All of her questions were answered. Informed consent was obtained. PROCEDURE: Patient brought to the operating room, placed in the supine position. Monitored anesthesia care was provided. She was prepped and draped in the usual sterile fashion. The area was anesthetized with 0.5% Marcaine plain. The lesion was excised in elliptical fashion, in a curvilinear fashion, parallel to the areola. It was dissected out, noted to be a solid lesion. It was sent off to Pathology. Hemostasis was achieved with needle tip electrocautery as well as subcutaneous sutures with 4-0 Monocryl suture. The skin was then closed with interrupted 4-0 Monocryl subcuticular sutures and Dermabond glue. Sterile pressure dressing was applied. Sponge and needle counts were correct x3 per nursing personnel. Patient tolerated procedure well, was sent to recovery room in good condition. CC: Trista Alvarado M.D. MTDOsiris
--- OUTSIDE RECORDS SUMMARY | 2023-12-31 09:28 | XMS_ITS | CCD ---
Author Organization [facility] Care Team Providers Care Appliance Repairer Name Role Phone Gurpreet Calixto Unavailable Trista [...] Unavailable NO FAMILY, PHYSICIAN Primary Care Provider MD Pan Carmona Attending Provider TRISTA BARRY Primary Care Physician [phone] Dieter LOCO Attending Unavailable Trista Barry Primary Care Unavailable Helio Barry Attending Unavailable Helio Barry Admitting Unavailable NO FAMILY, PHYSICIAN Primary Care Unavailable Pan Sanders Attending Unavailab le Pan Sanders Admitting Unavailab le Allergies Allergy Classification Reported Allergen(s) Allergy Type Date of Onset Reaction(s) Facility (6 sources) Penicillins Drug allergy 4 [facility] (11 sources) metFORMIN; Translations: [metformin] Drug Allergy 4 [facility] (disorder) [facility] (8 sources) Substance with penicillin structure and antibacterial mechanism of action (substance) Drug allergy [facility] [employer] Other (2 sources) Penicillin; Translations: [penicillin] Drug Allergy [facility] (disorder) [facility] [place] (1 source) metFORMIN Drug Allergy [address] [facility] (1 source) Penicillins Drug allergy (disorder) 4 [facility] Medications Current Medications Medication [...] mo uth three times daily at bedtime [place] Carbonate Active MG PO Three times daily October 22, 2023 9:33am FreeTextSi tablets Orally at HS; Note: Source Status: [id number] mg as needed; Refills: 0; Provider: Asha Cadet ( ) Start: 10-22-2023 End: 10-22-2023 take 3 tablets by mouth at bedtime [place] Carbonate Discontinued MG PO October 22, 2023 12:00am October 22, 2023 9:34am [employer] tablets Orally at HS; Note: Source Status: [id number] mg as needed; Refills: 0; Provider: Asha Cadet ( ) take 3 tablets by mo [facility] at bedtime [place] Carbonate ER 300 MG 3 tablets Orally at HS for 90 days 900-1200 mg as needed Active take 4 tablets by mo ut every twenty-four hours [place] Carbonate ER 300 MG 4 tablets Orally [...] once daily RA Vitamin D-3 50 MCG (1999 UT) take 1 capsule [...] 3 times a day prn Active Iron Fum,Mo-Uitbc-Wgapn,C No.9 (Iron Folate Plus) 125 mg iron- 1 mg capsule (1 source) Start: 10-22-2023 End: 10-22-2023 take 1 capsule by mouth once daily at mealtime Iron Fum,Fq-Wbuob-Inrfj,C No.9 (Iron Folate Plus) 125 mg iron- [...] sources) H/O: high risk medication; Translations: [Other long term care administrator (current) drug therapy] Episodic Other aftercare (5 sources) Other snf (current) drug therapy; Translations: [OTH [facility] CURRENT DRUG THERAPY] Onset: 2 Episodic Other [...] for Procedure/Surger yon 11-21-2023 Consent for Procedure/Surgery [id number] .00TIFF [facility] Facesheeton 11-20-2023 Facesheet [id number]#1 .00TIFF [facility] RAD - Ultrasound Reporton RAD - Ultrasound Report [id number] .00TIFF [facility] Ambulatory Visit Summaryon 0 11-19-2023 Ambulatory Visit Summary RAIN SWEENEY :1960 Visit Date:11/19/2023 Ambulatory Visit Instructions Your [...] for choosing us for your care. Normal [facility] Outside Mammographyon 2023 Outside Mammography [id number] .00TIFF [facility] Physician Referralon 024 Physician Referral [id number] .00TIFF [facility] XR lumbar spine 6V w bending on 05-29-2023 XR lumbar spine 6V w bending [facility] [place] [address] XRay Report Signed Patient: Rain Sweeney MR#: [id number] : 1960 Acct:[id number] Age/Sex: 62 / F ADM Date: 05/29/23 Loc: XD Room: Type: [facility] Attending Dr: Helio Barry MD Copies to: [...] Andrea Nina M.D.05/29/2023 7:00 PM Dictation Location: [place] [address] Transcribed By: [facility] 05/29/231899 Dictated By: Andrea Nina DO 05/29/231853 Signed By: 05/29/231899 Normal [facility] XR LSPINE 2_3 VIEWSon 2022 [...] MAKEDA MÁRQUEZ Date: 2022-12-06 11:24 Normal [facility] LITHIUMon 11-27-2022 [place] (Eskalith(R)), Serum 0.8 mmol/L Normal 0.5-1.2 [facility] Comment on above: Result Comment: A co ncentration of 0.5-0.8 mmol/L is advised for long-term use; concentrations of up to 1.2 mmol/L may be necessary during acute treatment. Detection Limit = 0.1 <0.1 indicates None Detected Performed By: #### L ITHIUM ####[facility] [id number] [place] [address]Dr. Laurel Buckner CREATININEon 11-26-2022 Creatinine [Mass/Vol] 0.97 mg/dL Normal 0.55-1.02 [facility] Comment on above: Performed By: #### T SH, CREA #### [facility] [address] [place] [address] [address] Laurel Buckner EGFR-AF BRAZILIAN >60 Normal >=60 [facility] Comment on above: Performed By: #### T SH, CREA #### [facility] [address] [place] [address] [address] Laurel Buckner EGFR-NON AF BRAZILIAN 59 mL/min/1.73m2 Critically low >=60 [facility] Comment on above: Performed By: #### T SH, CREA #### [facility] [address] [place] [address] [address] Laurel Buckner TSHon 11-26-2022 TSH 1.616 uIU/mL Normal 0.358-3.740 [facility] Comment on above: Performed By: #### T SH, CREA #### [facility] [address] [place] [address] [address] Laurel Buckner MG MAMM SCREEN 3D TOMY CADon 11-14-2022 MG MAMM SCREEN 3D TOMY CAD Patient: RAIN SWEENEY Exam Date: 11/14/2022 : 1960 Gender:F Ordering : DR TRISTA BARRY M.D. Admission #: [id number] Family : Order #: [id number] CLICK HERE TO VIEW EXAM RADIOLOGY REPORT [...] colon cancer at age 62. LOCATION: [facility] BREAST COMPOSITION: Heterogeneously dense,which may obscure [...] MD on 11/14/2022 at 12:03 Normal [facility] LITHIUMon 05-16-2022 [place] (Eskalith(R)), Serum 0.8 mmol/L Normal 0.5-1.2 [facility] Comment on above: Result Comment: Plas ma concentration of 0.5 - 0.8 mmol/L are advised for long-term use; concentrations of up to 1.2 mmol/L may be necessary during acute treatment. Detection Limit = 0.1 <0.1 indicates None Detected Performed By: #### L ITHIUM #### [facility] [address] [place] [address] Dr. Laurel Buckner CBC AUTO DIFFon 05-15-2022 BASO # 0.1 103/ul Normal 0.0-0.1 [facility] Comment on above: Performed By: #### C BC #### [facility] [address] [place] [address] Dr. Laurel Buckner Basophils/100 WBC (Bld) 1.0 % Normal 0.2-2.0 [facility] Comment on above: Performed By: #### C BC #### [facility] [address] [place] [address] Dr. Laurel Buckner EO # 0.4 103/ul Normal 0.0-0.7 [facility] Comment on above: Performed By: #### C BC #### [facility] [address] [place] [address] Dr. Laurel Buckner Eosinophils/100 WBC (Bld) 5.3 % Normal 0.9-7.0 [facility] Comment on above: Performed By: #### C BC #### [facility] [address] [place] [address] Dr. Laurel Buckner Erythrocyte distribution width (RBC) [Ratio] 13.8 % Normal 11.0-15.0 [facility] Comment on above: Performed By: #### C BC #### [facility] [address] [place] [address] Dr. Laurel Buckner Hematocrit (Bld) [Volume fraction] 46.8 % Normal 36.0-48.0 [facility] Comment on above: Performed By: #### C BC #### [facility] [address] [place] [address] Dr. Laurel Buckner Hemoglobin (Bld) [Mass/Vol] 14.8 g/dL Normal 12.0-16.0 [facility] Comment on above: Performed By: #### C BC #### [facility] [address] [place] [address] Dr. Laurel Buckner IG # 0.07 10e3/ul Critically high 0.00-0.03 [facility] Comment on above: Performed By: #### C BC #### [facility] [address] [place] [address] Dr. Laurel Buckner IG % 1.0 % Critically high 0.0-0.5 [facility] Comment on above: Performed By: #### C BC #### [facility] [address] [place] [address] Dr. Laurel Buckner LYMPH # 1.7 103/ul Normal 1.2-3.8 [facility] Comment on above: Performed By: #### C BC #### [facility] [address] [place] [address] Dr. Laurel Buckner Lymphocytes/100 WBC (Bld) 25.4 % Normal 20.5-60.0 [facility] Comment on above: Performed By: #### C BC #### [facility] [address] [place] [address] Dr. Laurel Buckner MANUAL DIFF REQ NO Normal [facility] Comment on above: Performed By: #### C BC #### [facility] [address] [place] [address] [address] Laurel Buckner MCH (RBC) [Entitic mass] 29.5 pg Normal 26.7-34.0 [facility] Comment on above: Performed By: #### C BC #### [facility] [address] [place] [address] Dr. Laurel Buckner MCHC (RBC) [Mass/Vol] 31.6 g/dL Normal 29.9-35.2 [facility] Comment on above: Performed By: #### C BC #### [facility] [address] [place] [address] Dr. Laurel Buckner MCV (RBC) [Entitic vol] 93.4 fL Normal 81.0-99.0 [facility] Comment on above: Performed By: #### C BC #### [facility] [address] [place] [address] Dr. Laurel Buckner MONO # 0.6 103/ul Normal 0.3-0.8 [facility] Comment on above: Performed By: #### C BC #### [facility] [address] [place] [address] Dr. Laurel Buckner Monocytes/100 WBC (Bld) 8.4 % Normal 1.7-12.0 [facility] Comment on above: Performed By: #### C BC #### [facility] [address] [place] [address] Dr. Laurel Buckner NEUT # 4.0 103/ul Normal 1.4-6.5 [facility] Comment on above: Performed By: #### C BC #### [facility] [address] [place] [address] Dr. Laurel Buckner Neutrophils/100 WBC (Bld) 58.9 % Normal 43.0-75.0 [facility] Comment on above: Performed By: #### C BC #### [facility] [address] [place] [address] Dr. Laurel Buckner Platelet mean volume (Bld) [Entitic vol] 10.1 fL Normal 9.5-13.5 [facility] Comment on above: Performed By: #### C BC #### [facility] [address] [place] [address] Dr. Laurel Buckner PLT 279 103/ul Normal 150-450 [facility] Comment on above: Result Comment: smea r reviewed Performed By: #### C BC #### [facility] [address] [place] [address] Dr. Laurel Buckner RBC 5.01 106/ul Normal 4.20-5.40 [facility] Comment on above: Performed By: #### C BC #### [facility] [address] [place] [address] Dr. Laurel Buckner WBC 6.8 103/ul Normal 4.0-11.0 [facility] Comment on above: Performed By: #### C BC #### [facility] [address] [place] [address] Dr. Laurel Buckner GLYCOHEMOGLOBIN A1Con 2021 ADA RECOMMENDATION SEE BELOW Normal [facility] Comment on above: Result Comment: ADA RECOMMENDED LIMIT 4.0 - 6.0 ADA THERAPEUTIC TARGET < 7.0 ACTION SUGGESTED > 7.0 Performed By: #### A 1C #### [facility] [address] [place] [address] Dr. Laurel Buckner Glucose [Mass/Vol] 97 mg/dL Normal [facility] Comment on above: Performed By: #### A 1C #### [facility] [address] [place] [address] Dr. Laurel Buckner HbA1c (Bld) [Mass fraction] 5.0 % Normal 4.5-6.2 [facility] Comment on above: Performed By: #### A 1C #### [facility] [address] [place] [address] Dr. Laurel Buckner LIPID PROFILEon 05-15-2022 CHOL-HDL RATIO NORM SEE BELOW Normal [facility] Comment on above: Result Comment: 3.3 - 4.4 LOW RISK 4.4 - 7.1 AVERAGE RISK 7.1 - 11.0 MODERATE RISK >11.0 HIGH RISK Performed By: #### L IPID, TSH, CMP #### [facility] [address] [place] [address] [address] Laurel Buckner Cholesterol [Mass/Vol] 279 mg/dL Critically high <=200 [facility] Comment on above: Performed By: #### L IPID, TSH, CMP #### [facility] [address] [place] [address] [address] Laurel Buckner Cholesterol in HDL [Mass/Vol] 76 mg/dL Critically high 40-60 [facility] Comment on above: Performed By: #### L IPID, TSH, CMP #### [facility] [address] [place] [address] [address] Laurel Buckner Cholesterol in LDL [Mass/Vol] 162.8 mg/dL Normal [facility] Comment on above: Performed By: #### L IPID, TSH, CMP #### [facility] [address] [place] [address] [address] Laurel Buckner Cholesterol.total/Ch olesterol in HDL [Mass ratio] 3.7 {ratio} Normal [facility] Comment on above: Performed By: #### L IPID, TSH, CMP #### [facility] [address] [place] [address] [address] Laurel Buckner HDL NORMAL > or = 60 mg/dl - LO W CARDIOVASCULAR RISK <40 mg/dl - HIGH CARDIOVASCULAR RISK Normal [facility] Comment on above: Performed By: #### L IPID, TSH, CMP #### [facility] [address] [address] [address] Laurel Buckner LDL CALC NORMAL SEE BELOW Normal [facility] Comment on above: Result Comment: <100 mg/dl OPTIMAL 100 - 129 mg/dl NEAR OR ABOVE OPTIMAL 130 - 159 mg/dl BORDERLINE HIGH 160 - 189 mg/dl HIGH >190 mg/dl VERY HIGH Performed By: #### L IPID, TSH, CMP #### [facility] [address] [address] [address] Laurel Buckner Triglyceride [Mass/Vol] 201 mg/dL Critically high <=150 [facility] Comment on above: Performed By: #### L IPID, TSH, CMP #### [facility] [address] [address] [address] Laurel Buckner VLDL CALC 40.2 mg/dL Normal [facility] Comment on above: Performed By: #### L IPID, TSH, CMP #### [facility] [address] [address] [address] Laurel Buckner PROF 14(COMP METB)on 022 Albumin [Mass/Vol] 3.6 g/dL Normal 3.4-5.0 [facility] Comment on above: Performed By: #### L IPID, TSH, CMP #### [facility] [address] [address] [address] Laurel Buckner Albumin/Globulin [Mass ratio] 0.9 {ratio} Normal [facility] Comment on above: Performed By: #### L IPID, TSH, CMP #### [facility] [address] [place] [address] Dr. Laurel Buckner ALP [Catalytic activity/Vol] 110 U/L Normal 46-116 [facility] Comment on above: Performed By: #### L IPID, TSH, CMP #### [facility] [address] [place] [address] Dr. Laurel Buckner ALT [Catalytic activity/Vol] 22 U/L Normal 14-59 [facility] Comment on above: Performed By: #### L IPID, TSH, CMP #### [facility] [address] [place] [address] Dr. Laurel Buckner Anion gap [Moles/Vol] 10.8 mmol/L Normal [facility] Comment on above: Performed By: #### L IPID, TSH, CMP #### [facility] [address] [place] [address] Dr. Laurel Buckner AST [Catalytic activity/Vol] 11 U/L Critically low 15-37 [facility] Comment on above: Performed By: #### L IPID, TSH, CMP #### [facility] [address] [place] [address] Dr. Laurel Buckner Bilirubin [Mass/Vol] 0.3 mg/dL Normal 0.2-1.0 [facility] Comment on above: Performed By: #### L IPID, TSH, CMP #### [facility] [address] [address] [address] Laurel Buckner Calcium [Mass/Vol] 9.1 mg/dL Normal 8.5-10.1 [facility] Comment on above: Performed By: #### L IPID, TSH, CMP #### [facility] [address] [place] [address] Dr. Laurel Buckner Chloride [Moles/Vol] 103 mmol/L Normal 98-107 [facility] Comment on above: Performed By: #### L IPID, TSH, CMP #### [facility] [address] [place] [address] Dr. Laurel Buckner CO2 [Moles/Vol] 27.9 mmol/L Normal 21.0-32.0 [facility] Comment on above: Performed By: #### L IPID, TSH, CMP #### [facility] [address] [place] [address] Dr. Laurel Buckner Creatinine [Mass/Vol] 0.96 mg/dL Normal 0.55-1.02 [facility] Comment on above: Performed By: #### L IPID, TSH, CMP #### [facility] [address] [place] [address] Dr. Laurel Buckner EGFR-AF BRAZILIAN >60 Normal >=60 [facility] Comment on above: Performed By: #### L IPID, TSH, CMP #### [facility] [address] [place] [address] Dr. Laurel Buckner EGFR-NON AF BRAZILIAN 59 mL/min/1.73m2 Critically low >=60 [facility] Comment on above: Performed By: #### L IPID, TSH, CMP #### [facility] [address] [place] [address] Dr. Laurel Buckner Globulin (S) [Mass/Vol] 3.9 g/dL Normal [facility] Comment on above: Performed By: #### L IPID, TSH, CMP #### [facility] [address] [place] [address] Dr. Laurel Buckner Glucose [Mass/Vol] 90 mg/dL Normal 74-106 [facility] Comment on above: Performed By: #### L IPID, TSH, CMP #### [facility] [address] [place] [address] Dr. Laurel Buckner Potassium [Moles/Vol] 3.7 mmol/L Normal 3.5-5.1 [facility] Comment on above: Performed By: #### L IPID, TSH, CMP #### [facility] [address] [place] [address] Dr. Laurel Buckner Protein [Mass/Vol] 7.5 g/dL Normal 6.4-8.2 [facility] Comment on above: Performed By: #### L IPID, TSH, CMP #### [facility] [address] [place] [address] Dr. Laurel Buckner Sodium [Moles/Vol] 138 mmol/L Normal 136-145 [facility] Comment on above: Performed By: #### L IPID, TSH, CMP #### [facility] [address] [place] [address] Dr. Laurel Buckner Urea nitrogen [Mass/Vol] 16.0 mg/dL Normal 7.0-18.0 [facility] Comment on above: Performed By: #### L IPID, TSH, CMP #### [facility] [address] [place] [address] Dr. Laurel Buckner Urea nitrogen/Creatinine [Mass ratio] 16.7 mg/mg Normal [facility] Comment on above: Performed By: #### L IPID, TSH, CMP #### [facility] [address] [place] [address] Dr. Laurel Buckner TSHon 05-15-2022 TSH 3.094 uIU/mL Normal 0.358-3.740 [facility] Comment on above: Performed By: #### L IPID, TSH, CMP #### [facility] [address] [place] [address] Dr. Laurel Buckner Vital Signs Date Time Vital Sign Value Performing Clinician Facility 11-19-2023 13:56-0400 Blood Pressure Location Dieter NILL [facility] [place] 11-19-2023 13:56-0400 Diastolic blood pressure 92 mm[Hg] Dieter NILL [facility] [place] 11-19-2023 13:56-0400 Heart rate 72 /min Dieter NILL [facility] [place] 11-19-2023 13:56-0400 Respiratory rate 16 /min Dieter NILL [facility] [place] 11-19-2023 13:56-0400 Systolic blood pressure 132 mm[Hg] Dieter NILL [facility] [place] 11-12-2023 10:20-0400 Body height 170.18 cm PHYSICIAN NO [facility] 11-12-2023 10:20-0400 Body mass index (BMI) [Ratio] 28 kg/m2 PHYSICIAN NO [facility] 11-12-2023 10:20-0400 Body weight 81.36 kg PHYSICIAN NO [facility] 11-12-2023 10:20-0400 Diastolic blood pressure 77 mm[Hg] PHYSICIAN NO [facility] 11-12-2023 10:20-0400 Heart rate 124 /min PHYSICIAN NO [facility] 11-12-2023 10:20-0400 Systolic blood pressure 124 mm[Hg] PHYSICIAN NO [facility] 10-22-2023 09:23-0400 Body height 170.18 cm PHYSICIAN NO [facility] 10-22-2023 09:23-0400 Body mass index (BMI) [Ratio] 29.1 kg/m2 PHYSICIAN NO [facility] 10-22-2023 09:23-0400 Body weight 84.36 kg PHYSICIAN NO [facility] 10-22-2023 09:23-0400 Diastolic blood pressure 85 mm[Hg] PHYSICIAN NO [facility] 10-22-2023 09:23-0400 Heart rate 106 /min PHYSICIAN NO [facility] 10-22-2023 09:23-0400 Systolic blood pressure 140 mm[Hg] PHYSICIAN NO [facility] 05-29-2023 14:00-0400 Body height 170.18 cm Helio Barry Other [employer] Other 05-29-2023 14:00-0400 Body mass index (BMI) [Ratio] 29.44 kg/m2 Helio Barry Other [employer] Other 05-29-2023 14:00-0400 Body weight 85.28 kg Helio Barry Other [employer] Other 05-05-2023 08:30-0400 Body height 170.18 cm Trista Barry Other [employer] Other 05-05-2023 08:30-0400 Body mass index (BMI) [Ratio] 29.44 kg/m2 Trista Barry Other [employer] Other 05-05-2023 08:30-0400 Body weight 85.28 kg Trista Barry Other [employer] Other 05-05-2023 08:30-0400 Diastolic blood pressure 82 mm[Hg] Trista Barry Other [employer] Other 05-05-2023 08:30-0400 Systolic blood pressure 128 mm[Hg] Trista Barry Other [employer] Other 04-01-2023 10:00-0400 Body height 170.18 cm Trista Barry Other [employer] Other 04-01-2023 10:00-0400 Body mass index (BMI) [Ratio] 29.13 kg/m2 Trista Barry Other [employer] Other 08-22-2023 10:00-0400 Body weight 84.37 kg Trista Barry Other [employer] Other 04-01-2023 10:00-0400 Diastolic blood pressure 86 mm[Hg] Trista Barry Other [employer] Other 04-01-2023 10:00-0400 Systolic blood pressure 148 mm[Hg] Trista Barry Other [employer] Other Encounters Encounter Date Encounter Type Care Provider Facility Start: 11-19-2023 End: 11-20-2023 ambulatory Dieter R NILL Facility:[facility] Start: 11-19-2023 End: 11-19-2023 Patient encounter procedure Dieter R NILL [facility] Start: 11-17-2023 ambulatory Dieter NILL Facility:[facility] Start: 11-14-2023 ambulatory Dieter NILL Facility:[facility] Start: 11-12-2023 End: 11-12-2023 ambulatory PHYSICIAN NO [facility] Work Phone: Start: 11-12-2023 End: 11-12-2023 Patient encounter procedure PHYSICIAN NO [facility] Work Phone: Start: 11-04-2023 ambulatory PHYSICIAN NO [facility] Start: 10-22-2023 Patient encounter status PHYSICIAN NO [facility] Start: 10-22-2023 End: 10-22-2023 Encounter for general adult medical examination without abnormal findings PHYSICIAN NO [facility] Start: 10-22-2023 End: 10-22-2023 Patient encounter procedure PHYSICIAN NO [facility] Work Phone: Start: 09-09-2023 Registered Recurring PHYSICIAN BALDOMERO TRUJILLO JORDY [facility] Start: 05-30-2023 End: 05-30-2023 ambulatory Helio Barry Other [employer] Other Start: 05-30-2023 Telephone encounter Helio Barry [facility] Start: 05-29-2023 End: 05-29-2023 ambulatory Trista Barry Facility:[facility] Start: 05-29-2023 Office outpatient ne w 30 minutes Helio Barry [facility] Neurosurgery Start: 05-29-2023 End: 05-29-2023 ambulatory MD Trista Barry Work Phone: [facility] Work Phone: Start: 05-29-2023 End: 05-29-2023 Patient encounter procedure MD Trista Barry Work Phone: [facility]-XRay [place] Work Phone: Start: 05-16-2023 End: 05-16-2023 ambulatory Trista Barry Other [employer] Other Start: 05-16-2023 Telephone encounter Trista Barry [facility] Start: 05-05-2023 End: 05-05-2023 ambulatory Trista Barry Other [employer] Other Start: 05-05-2023 Office outpatient vi sit 15 minutes Trista Barry [facility] Start: 04-07-2023 End: 04-07-2023 ambulatory Trista Barry Other [employer] Other Start: 04-07-2023 Telephone encounter Trista Barry [facility] Start: 04-01-2023 End: 04-01-2023 ambulatory Trista Barry Other [employer] Other Start: 04-01-2023 Office outpatient vi sit 15 minutes Trista Barry [facility] Start: 12-27-2022 ambulatory GOLDY GLOVER Facility: Start: 12-23-2022 End: 12-23-2022 ambulatory Goldy Glover Other [employer] Other Start: 12-23-2022 Office outpatient ne w 45 minutes Goldy Glover [facility] [place] Start: 12-06-2022 Telephone encounter Trista MORIN [facility] Start: 12-06-2022 End: 12-07-[address] TRISTA BARRY [employer] Other Start: 11-26-2022 End: 11-27-2022 ambulatory REGULO APRILBlaze Facility:[facility] Start: 11-14-2022 End: 11-15-[address] TRISTA BARRY Facility:[facility] Start: 05-17-2022 Encounter for genera l adult medical examination without abnormal findings DR TRISTA BARRY [facility] Start: 05-15-2022 End: 05-16-[address] TRISTA BARRY Facility:[facility] Start: 05-15-2022 End: 05-16-2022 Encounter for general adult medical examination without abnormal findings DR TRISTA BARRY Facility:[facility] Start: 05-14-2022 Adult health examination Trista Barry Other [employer] Other Start: 04-18-2022 End: 04-18-2022 ambulatory Gurpreet Marily Other [employer] Other Start: 04-18-2022 Telephone encounter Gurpreet Marily [facility] Start: 02-27-2022 End: 02-27-2022 ambulatory Gurpreet Marily Other [employer] Other Start: 02-27-2022 Telephone encounter Gurpreet Marily [facility] Start: 02-05-2022 ambulatory GURPREET MARILY Facility:H 1 Start: 12-13-2021 End: 12-13-2021 ambulatory Gurpreet Marily Other [employer] Other Start: 12-13-2021 Telephone encounter Gurpreet Marily [facility] Start: 09-19-2021 End: 09-19-2021 ambulatory Gurpreet Marily Other [employer] Other Start: 09-19-2021 Telephone encounter [facility] Start: 09-05-2021 End: 09-05-2021 ambulatory [facility] Other [employer] Other Start: 09-05-2021 Telephone encounter [facility] Psychiatry Procedures Date Procedure Procedure Detail Performing Clinician Start: 05-29-2023 X-ray of lumbar spin e, six views including bending views MD Trista Barry Work Phone: History of bilateral breast implants Dieter BUSTOSJo History of nasal sin us surgery Dieter LOCO Ligation of fallopian tube Sarath barksdale BERONICA Screening for malign ant neoplasm of breast Trista Barry Other Screening for malign ant neoplasm of colon Trista Barry Other Stapedectomy Dieter LOCO Plan of Treatment Date Care Activity Detail Author Start: 11-12-2023 Patient referral [facility] Work Phone: MG Breast - bilatera l Diagnostic [facility] Patient Education Yearly Physica l for Adults [facility] Work Phone: Patient referral [facility] Work Phone: Immunizations Immunization Date Immunization Notes Care Provider Fa ciliafia 10-12-2022 influenza virus vaccine, unspecified formulation Dieter LOCO [facility] [place] 10-12-2022 influenza, injectabl e, quadrivalent, preservative free Trista Barry Other [facility] 02-19-2022 diphtheria, tetanus toxoids and acellular pertussis vaccine, unspecified formulation Trista Barry Other [facility] 02-19-2022 tetanus toxoid, reduced diphtheria toxoid, and acellular pertussis vaccine, adsorbed Trista Barry Other [facility] 08-07-2021 COVID-19 Vaccine Moderna - Documentation Purposes Only Trista Asha Other [facility] 05-28-2021 influenza virus vaccine, split virus (incl. purified surface antigen) Trista Asha Other [employer] Other 05-28-2021 influenza virus vaccine, unspecified formulation PHYSICIAN NO [facility] 12-09-2020 COVID-19 Vaccine Moderna - Documentation Purposes Only Trista Asha Other [facility] 11-11-2020 COVID-19 Vaccine Moderna - Documentation Purposes Only Trista Asha Other [facility] Payers Date Payer Category Payer Unknown [id number] 2.16.84 [id number] 1960 Unknown [id number] 2.16.84 [id number] 1960 Unknown [id number] 2.16.84 [id number] 1962 Unknown [id number] 2.16.84 [id number] 1962 Unknown [id number] 2.16.84 [id number] 1962 Unknown [id number] 2.16.84 [id number] 1962 Unknown [id number] 2.16.8 [id number] 1962 Unknown [id number] 2.16.8 [id number] 1959 Private Health Insurance [id number] 1959 Private Health Insurance [id number] Self-pay [facility] [id number] Private Health Insurance [id number] Unknown [id number] 2.16.8 [id number] Social History Date Type Detail Facility [facility] Start: 1960 Sex Assigned At Female F [facility] Start: 05-29-2023 End: 11-19-2023 Tobacco smoking status NHIS Never smoked tobacco (finding) [facility] Tobacco smoking status Never Gener al Surgery [facility]ail Functional Status Date Assessment Result Facility 11-19-2023 Functional Status N/A General Guy rgdae Jang Clinical Notes 12-13-2021 to 11-19-2023 Note Date [...] Recorded SARS-CoV-2 (COVID-19) mRNA-1273 vaccine 11/11/2020 Recorded [facility] Comment on above: Result Comment: Elec [...] may be able to offer some advice. [employer] Other 09-25-2023 Evaluation note* Encounter Date Diagnosis Assessment Notes Treatment Notes Treatment Clinical Notes Apr, Right lumbar radiculopathy (ICD-10 - M54.16) Presently in PT - discharged on 05/02. Requests MRI and referral. [employer] Other 08-22-2023 Evaluation note* Encounter Date Diagnosis Assessment Notes Treatment Notes Treatment Clinical Notes Mar, Right hip pain (ICD-10 - M25.551) PT paper given to pt. Handout for home stretches given as well. Tramadol to help her sleep. She understands it is a controlled substance and could be sedating. [employer] Other 05-15-2023 Evaluation note* Encounter Date Diagnosis [...] Above note written by Morris Flor MA, Sort Operations Supervisor. Edited and approved by Dr. Goldy [...] negative findings were considered in medical decision-making. [employer] Other 04-28-2023 Evaluation note* Encounter Date Diagnosis Assessment Notes Treatment Notes Treatment Clinical Notes Nov, Lumbar pain (ICD-10 - M54.50) [employer] Other 07-20-2022 Evaluation note* Encounter Date Diagnosis Assessment Notes Treatment Notes Treatment Clinical Notes Feb, Bipolar 1 disorder, depressed (ICD-10 - F31.9) [employer] Other 05-05-2022 Evaluation note* Encounter Date Diagnosis Assessment Notes Treatment Notes Treatment Clinical Notes December, Bipolar 1 disorder, depressed (ICD-10 - F31.9) [employer] Other Evaluation + Plan note No data available for this section General Surgery [place] Evaluation noteNo [employer] Other Evaluation noteNo assessment information available [facility] Work Phone: Evaluation note* Diagnosis Onset Date Resolution Status Acne acute Breast mass, right acute Wellness examination acute Abnormal ultrasound of breast acute [facility] Work Phone: History general Narrative - Reported* Type Description Date Medical History bipolar disorder Medical History anxiety disorder Medical History high blood pressure Surgical History 2 boul ligation 1999 Surgical History stepidectomy 2008 Surgical History sinus surgery 2015 Hospitalization History See surgical hx Hospitalization History child [employer] Other Hisakaj general Narrative - Reported* Type Description Date Medical History bipolar disorder Medical History anxiety disorder Medical History high blood pressure Medical History Fatigue Medical History High risk medication use Surgical History 2 boul ligation 2000 Surgical History stepidectomy 2009 Surgical History sinus surgery 2015 Surgical History LUBAL LIGATION Hospitalization History See surgical hx Hospitalization History [facility] Other Hispazk general Narrative - Reported* Type Description Date Medical History bipolar disorder Medical History anxiety disorder Medical History high blood pressure Medical History Fatigue Medical History High risk medication use Medical History heart disease Medical History high cholesterol Medical History chronic depression Medical History obesity Surgical History 2 boul ligation 2000 Surgical History stapedectomy 2008 Surgical History sinus surgery 2015 Surgical History LUBAL LIGATION Hospitalization History See surgical hx Hospitalization History [facility] Other Hospital Discharge instructionsAmbulatory Orders* Referral to General Surgery Time Frame: 11/12/23, Location: [facility] Work Phone: Hospital Discharge instructions No data available for this section General Surgery [place] Progress note No data available for this section General Surgery [place] Reason for Referral Reason piriformis pain Diagnosis 1 Adolescent idiopathi c scoliosis of lumbosacral spine (M41.127) Referral Organization [facility] Ne urosurgery Referring Provider First Name Helio Referring Provider Last Name Asha Referring Provider Specialty Neurologica l Surgery Referred Organization [facility] Referred Provider Danny Solares Referred Address [address] [place], [place],[address] Referred Provider Specialty Orthopaedic Surgery Referral Priority Routine Reason Requests Dr. Helio qureshi - MRI pending. Went to [place] ER and had xrays on 05/05. Diagnosis 1 Right lumbar radicul opathy (M54.16) Referral Organization [facility] Referring Provider First Name Trista Referring Provider Last Name Asha Referring Provider Specialty Family Medi cine Referred Organization [facility] Neurosurgery B lianne Referred Address [address] [place], [place],[address] Referred Provider Specialty Neurological Surgery Referral Priority Routine Reason No preference on off ice - Lumbar pain - recent OV and xray - thanks Diagnosis 1 Lumbar pain (M54.50) Referral Organization [facility] Referring Provider First Name Trista [...] DATE CREATED AUTHOR AUTHOR'S ORGANIZ ATION 11/22/2023 [place] [facility] DATE CREATED AUTHOR AUTHOR'S ORGANIZ ATION 12/10/2023 [facility] Care Teams (unrecognized sec tion [...] BE BASED ON THE PRIMARY CLINICAL RECORDS. [facility]. provides no warranty or guarantee of the accuracy or completeness of information in this document.
[2023-12-31] MEDS: LEVOFLOXACIN IN DEXTROSE 5 % 750 MG/150 ML IV.SOLN 100 MG IV (09:39)
[2023-12-31] MEDS: LACTATED RINGER'S SOLUTION 1,000 ML 50 ML IV (09:39)
[2023-12-31] MEDS: BUPIVACAINE HCL 0.5% PF 50 MG/10 ML VIAL 7 ML INJ (11:26)
--- NOTE | 2023-12-31 12:47 | PC.NURSE ---
C/o nausea; retching, no emesis; call out to anesthesia
[2023-12-31] MEDS: ONDANSETRON 4 MG RAPDIS TABLET SL (13:04)
--- NOTE | 2023-12-31 13:10 | PC.NURSE ---
Medicated with Zofran SL as ordered by anesthesia; retching at intervals; no emesis
--- NOTE | 2023-12-31 13:20 | PC.NURSE ---
Retching at intervalos; no emesis; anesthesia aware; pt states she wants to go home
== END 2023-12-31 13:21 | disposition home or self-care (01) ==
PROVIDERS: PCP Family Medicine; Visit Provider Surgery
PROC: (CPT 400; principal; 2023-12-31 10:10)
DX: D24.1 Benign neoplasm of right breast (principal)
CPT/HCPCS: 19120; 88305; J1094; J2704

== ENCOUNTER 2024-04-09 10:09 | Outpatient (OUT) | payer OTHER, SELFPAY ==
--- OUTSIDE RECORDS SUMMARY | 2024-04-09 10:29 | XMS_ITS | CCD ---
Author Organization [facility] CliniSytn Care Team Providers Care Automatic Outsole Cutter Name Role Phone Gurpreet Calixto Unavailable Trista Barry Unavailable Goldy Glover Unavailable ASHA, DR TRISTA Reyes Attending Unavailable ASHA, DR TRISTA Reyes Consulting Unavailable BARRY, DR TRISTA Reyes Admitting Unavailable BARRY, DR TRISTA Reyes Admitting Unavailable WEST, DR MAKEDA Schneider Consulting Unavailable BARRY, DR TRISTA Reyes Attending Unavailable BARRY, DR TRISTA Reyes Consulting Unavailable LEXIE, REGULO Admitting Unavailable LEXIE, REGULO Attending Unavailable REGULO OWEN Consulting Unavailable BARRY, DR TRISTA Reyes Admitting [...] Provider Unava MD Pan Gutierrez Attending Provider [phone] TRISTA BARRY Primary Care Physician NO FAMILY, PHYSICIAN Primary Care Provider Unava MD Pan Gutierrez Attending Provider [phone] MD Trista Barry Primary Care Provider [phone] MD Dieter Wasserman Attending Provider Dieter Wasserman Attending Unavailable Dieter Wasserman Admitting Unavailable Trista Barry Primary Care Unavailable Helio Barry Admitting Unavailable Trista Barry Primary Care Unavailable Helio Barry Attending Unavailable NO FAMILY, PHYSICIAN Primary Care Unavailable Pan Sanders Attending Unavailab Pan Mendieta Admitting Unavailab claudia NO FAMILY, PHYSICIAN Primary Care Provider MD Pan Carmona Attending Provider [phone] Beryl Henderson Attending Unavailable NILDieter Osorio Attending Unavailable NILLDieter Attending Unavailable NILLDieter Attending Unavailable NILL, Dieter Masters Attending Unavailable BIANKA FLORES Attending Unavailab le Allergies Allergy Classification Reported Allergen(s) Allergy Type Date of Onset Reaction(s) Facility metFORMIN (1 source) metFORMIN Drug Allergy 4 [facility] Repository Penicillins (antibiotic) (1 source) Penicillins Drug Allergy [address] [place] [address] Repository (8 sources) Penicillins Drug allergy 4 [facility] (15 sources) metFORMIN; Translations: [metformin] Drug Allergy 4 Weal (disorder) [facility] (8 sources) Substance with penicillin structure and antibacterial mechanism of action (substance) [facility] [employer] Other (4 sources) Penicillin; Translations: [penicillin] Drug Allergy Weal (disorder) [facility] Pimento Medications Current Medications Medication Drug Class(es) Dates Sig (Normalized) Sig (Original) aspirin 81 mg chewable tablet (7 sources) Platelet Aggregation Inhibitor, Nonsteroidal Anti-inflammatory Drug take 1 tablet by mouth every twenty-four hours Aspirin 81 MG 1 tablet Orally Once a day PRN Active Calcium Carbonate (8 sources) Start: 11-17-2023 take 1 tablet by [...] mo uth three times daily at bedtime [place] Carbonate Active MG PO Three times daily October 22, 2023 9:33am [employer] tablets Orally at HS; Note: Source Status: [id number] mg as needed; Refills: 0; Provider: Asha Cadet ( ) Start: 10-22-2023 End: 10-22-2023 take 3 tablets by mouth at bedtime [place] Carbonate Discontinued MG PO October 22, 2023 12:00am October 22, 2023 9:34am [employer] tablets Orally at HS; Note: Source Status: [id number] mg as needed; Refills: 0; Provider: Asha Cadet ( ) take 3 tablets by mo [facility] at bedtime [place] Carbonate ER 300 MG 3 tablets Orally at HS for 90 days 900-1200 mg as needed Active take 4 tablets by mo uth every twenty-four hours [place] Carbonate ER 300 MG 4 tablets Orally [...] omeprazole 20 mg delayed release oral capsule (19 sources) Proton Pump Inhibitor Start: 10-22-2023 take 1 capsule by mouth once daily omeprazole 20 mg Cap-DR 20 mg = 1 cap(s), Oral, Daily, Refills(s) 0 Start Date: 11/17/23 Status: Ordered Omeprazole OTC A ctive OXcarbazepine 300 mg [...] Nov, Active tretinoin 1 mg/ml topical cream (6 sources) Retinoid Start: 024 tretinoin Top 0.1% Crm 1 susan, Topical, Once a day (at bedtime), Refill(s) 0 Start Date: 11/17/23 Status: Ordered Start: 10-22-2023 Tretinoin Acti ve 1 APPLIC TOPICAL 6 TIMES PER WEEK 45 October 22, 2023 12:00am venlafaxine (19 sources) Serotonin and Norepinephrine Reuptake Inhibitor Start: [...] Not-Taking cyclobenzaprine hydrochloride 10 mg oral tablet (7 sources) Muscle Relaxant Start: 10-22-2023 End: 10-22-2023 take 1 tablet by mouth three times daily as needed Cyclobenzaprine Discontinued 10 MG PO Three times daily October 22, 2023 12:00am October 22, 2023 9:32am [employer] tablet 3 times a day prn; Note: Source Status: Taking; Provider: Asha Cadet ( ) Cyclobenzaprine HCl 10 MG 1 tablet 3 times a day prn Active Iron Fum,Rj-Oxwol-Jtinc,C No.9 (Iron Folate Plus) 125 mg iron- 1 mg capsule (3 sources) Start: 10-22-2023 End: 10-22-2023 take 1 capsule by mouth once daily at mealtime Iron Fum,Mm-Zqkmt-Htaef,C No.9 (Iron Folate Plus) 125 mg iron- [...] Not-Taking traMADol hydrochloride 50 mg oral tablet (9 sources) Opioid Agonist Start: 10-22-2023 End: 10-22-2023 [...] Problem Date Documented Date Episodic/Chronic Anxiety disorders (3 sources) Anxiety 11-17-2023 Chronic Disorders of lipid metabolism (3 sources) Hypercholesterolemia 11-17-2023 Chronic Essential hypertension (6 sources) Essential (primary) hypertension; Translations: [Essential hypertension] Onset: 2 11-17-2023 Chronic Malaise and fatigue (11 sources) Fatigue; Translations: [Other fatigue] Onset: 2 Episodic Menopausal disorders (2 sources) Menopausal and postmenopausal disorders; Translations: [Unspecified menopausal and perimenopausal disorder] Chronic Mood disorders (20 sources) Bipolar disorder; Translations: [Bipolar disorder, unspecified] Onset: 2 Resolved: 4 Chronic Nonmalignant breast conditions (9 sources) Breast lump; Translations: [Unspecified lump in the right breast, unspecified quadrant] Onset: 4 10-22-2023 Episodic Other acquired deformities (3 sources) Scoliosis deformity of spine 11-17-2023 Chronic Other aftercare (8 sources) H/O: high risk medication; Translations: [Other longterm (current) drug therapy] Episodic Other aftercare (5 sources) Other longterm (current) drug therapy; Translations: [OTH TAX ADJUSTER CURRENT DRUG THERAPY] Onset: 2 Episodic Other aftercare (2 sources) Long-term current use of drug therapy; Translations: [Other longterm (current) drug therapy] Episodic Other and ill-defined heart disease (3 sources) Heart disease 11-17-2023 Chronic Other bone disease [...] Episodic Other nutritional; endocrine; and metabolic disorders (3 sources) Overweight 11-17-2023 Episodic Other nutritional; endocrine; and metabolic disorders (3 sources) Overweight in adulthood with body mass index of 25 or more but less than 30 11-19-2023 Episodic Other screening for suspected conditions (not mental disorders or infectious disease) (10 sources) Encounter for screening mammogram for malignant neoplasm of breast; Translations: [Ultrasonography of breast abnormal] Onset: 3 Episodic Other skin disorders (6 sources) Acne; Translations: [Acne, unspecified] 10-22-2023 Episodic Other skin disorders (2 sources) Acne, unspecified; Translations: [Other acne] 10-22-2023 Episodic [...] Translations: [Tobacco use] Episodic Residual codes; unclassified (3 sources) Chronic pain 11-17-2023 Episodic Spondylosis; intervertebral disc [...] Test Name Value Interpretation Reference Range Facility General Surgery Office/Clini c Noteon 01-14-2024 General Surgery Office/Clinic Note History of Present Illness nurse visit only Assessment/Plan Post-operative state (Z98.890: Other specified postprocedural states) Ordered: Office Visit No Charge Follow-up No qualifying data available Problem List/Past [...] Recorded SARS-CoV-2 (COVID-19) mRNA-1273 vaccine 11/11/2020 Recorded Normal [facility] Comment on above: Result Comment: Elec tronically Signed By: BERONICA RAMIREZ, Dieter Masters\.marian\Date and Time Signed: 01/14/24 17:14 EDT Nurse Consultation Noteon Nurse Consultation Note Assessment/Plan Patient is 14 days post excision right nipple lesion. Pathology consistent with typical ductal hyperplasia. Discussed pathology with patient. Physical exam unremarkable. Small scabbed area at incision site. No wound separation noted. No bleeding or drainage. No erythema, ecchymosis, warmth or seroma noted. Denies questions or concerns. Medications calcium carbonate, 1 tab(s), Oral, BID lithium 300 mg oral tablet, 900 mg= 3 tab(s), Oral, Bedtime omeprazole 20 mg Cap-DR, 20 mg= 1 cap(s), Oral, Daily oxcarbazepine 300 mg Tab, 300 mg= 1 tab(s), Oral, Daily tretinoin Top 0.1% Crm, 1 susan, Topical, Once a day (at bedtime) venlafaxine Allergies metFORMIN (Hives) penicillin (Hives) Immunizations Vaccine Date Status influenza virus vaccine, inactivated 10/12/2022 Recorded SARS-CoV-2 (COVID-19) mRNA-1273 vaccine 08/07/2021 Recorded SARS-CoV-2 (COVID-19) mRNA-1273 vaccine 12/09/2020 Recorded SARS-CoV-2 (COVID-19) mRNA-1273 vaccine 11/11/2020 Recorded Normal [facility] Operative Reporton Operative Report [id number]#1.0 0TIFF Normal [facility] Pathology Noteon 01-08-2024 Pathology Note [id number]#1.0 0TIFF Normal [facility] [place] 12-31-2023 L Specimen: [id number] Received: 01/01/24 Status: VALERIE Mancini Num: [id number] Spec Type: Surgical Subm Dr: Dieter Wasserman MD FACS Tissues: A Skin-Other than Cyst, tag, debridement or plastic repair (RT NIPPLE LESION) Procedures: HE, Gross/Micro L4 Age/ Patient Sex Location Account Attending Physician Rain Sweeney 63/F [facility] [id number] Dieter Wasserman MD FACS SPEC NUM: [id number] RECD: 01/01/24 STATUS: VALERIE MANCINI NUM: [id number] JOSEMANUEL: 12/31/[address]: Dieter Wasserman MD FACS ENTERED: 01/01/[address]: Renee Jang SPEC TYPE: Surgical DEPT: HODAN CHAN ORDERED: HE, Gross/Micro L4 ORDERED: HE, Gross/Micro L4 Pathological Diagnosis Skin, right nipple, excision: -Nipple adenoma of the epithelial hyperplastic, or papillomatous and/or epitheliosis, types, including patchy moderate to severe ductal epithelial hyperplasia of the usual type (UDH), including micropapillary hyperplasia -Patchy mild columnar cell hyperplasia are also noted with only occasional mild cytological atypia, otherwise also without necrosis or any obvious or significant mitotic activity -The lesion is slightly transected at the base of excision suggesting the need for additional complete conservative reexcision, otherwise without malignancy or any distinctive atypical epithelial hyperplasia observed Clinical Information Right nipple lesion excision Gross Description Received in formalin, labeled with the patient's name, date of and right nipple lesion is a 0.8 x 0.6 x 0.4 cm rubbery tissue nodule. The specimen is inked blue and bisected revealing a homogenous pale-good cut surface and entirely submitted in A1. ---- Specimen: [id number] Received: 01/01/24 Status: VALERIE Resendizsmooth Num: [id number] Spec Type: Surgical Subm Dr: Dieter Wasserman MD FACS Tissues: A Skin-Other than Cyst, tag, debridement or plastic repair (RT NIPPLE LESION) Procedures: EVERETT, Gross/Carlo L4 ---- Patient: Rain Sweeney [id number] (Continued) ---- Specimen: [id number] Received: 01/01/24 (Continued) Signed (signature on file) Bobbi Buckner MD 01/05/24 1812 ---- Specimen: [id number] Received: 01/01/24 Status: VALERIE Mancini Num: [id number] Spec Type: Surgical Subm Dr: Dieter Wasserman MD FACS Tissues: A Skin-Other than Cyst, tag, debridement or plastic repair (RT NIPPLE LESION) Procedures: EVERETT Gross/Carlo L4 ---- Patient: Rain Sweeney [id number] (Continued) ---- Specimen: [id number] Received: 01/01/24 (Continued) CPT Codes 47058 ---- ---- Specimen: [id number] Received: 01/01/24 Status: VALERIE Mancini Num: [id number] Spec Type: Surgical Subm Dr: Dieter Wasserman MD FACS Tissues: A Skin-Other than Cyst, tag, debridement or plastic repair (RT NIPPLE LESION) Procedures: EVERETT, Gross/Carlo L4 ---- Patient: Rain Sweeney [id number] (Continued) ---- Signed (signature on file) Bobbi Buckner MD 01/05/241811 Normal [facility] Consent for Procedure/Surger yon 11-21-2023 Consent for Procedure/Surgery [id number]#1.[address] [facility] Facesheeton 11-20-2023 Facesheet [id number]#[address] [facility] RAD - Ultrasound Reporton RAD - Ultrasound Report [id number]#1.[address] [facility] Ambulatory Visit Summaryon 0 11-19-2023 Ambulatory Visit [...] you for choosing us for your care. [facility] Basophils Auto (Bld) [#/Vol] on 11-18-2023 Basophils (Bld) [#/Vol] 0.1 10 3/uL 0.0-0.1 [facility] Basophils/100 WBC Auto (Bld) on 11-18-2023 Basophils/100 WBC (Bld) 0.9 % 0.2-2.0 [facility] Cholesterol in LDL Calc [Mas s/Vol]on 11-18-2023 Cholesterol in LDL [Mass/Vol] 130.0 mg/dL [facility] Comment on above: <100 mg/dl [id number] 0-129 mg/dl NEAR OR ABOVE [id number] mg/dl BORDERLINE [id number] mg/dl HIGH>190 mg/dl VERY HIGH Cholesterol in VLDL Calc [Ma ss/Vol]on 11-18-2023 Cholesterol in VLDL [Mass/Vol] 19.8 mg/dL [facility] Eosinophils/100 WBC Auto (Bl d)on 11-18-2023 Eosinophils/100 WBC (Bld) 4.5 % 0.9-7.0 [facility] Erythrocyte distribution wid th Auto (RBC) [Ratio]on 11-18-2023 Erythrocyte distribution width (RBC) [Ratio] 13.6 % 11.0-15.0 [facility] Estimated glomerular filtrat ion rate (GFR) non- Americanon 11-18-2023 GFR/1.73 sq M.predicted among non-blacks MDRD (S/P/Bld) [Vol rate/Area] 55 mL/min/{1.73_m2} >=60 [facility] Globulin Calc (S) [Mass/Vol] on 11-18-2023 Globulin (S) [Mass/Vol] 3.6 g/dL [facility] Glucose mean value [Mass/vol ume] in Blood Estimated from glycated hemoglobinon 11-18-2023 Average glucose Estimated from glycated hemoglobin (Bld) [Mass/Vol] 100 mg/dL [facility] Hematocrit Auto (Bld) [Volum e fraction]on 11-18-2023 Hematocrit (Bld) [Volume fraction] 46.8 % 36.0-48.0 [facility] Hemoglobin [Mass/volume] in Bloodon 11-18-2023 Hemoglobin (Bld) [Mass/Vol] 15.0 g/dL 12.0-16.0 [facility] Laboratory - Chemistry and C hemistry - challengeon 11-18-2023 Albumin [Mass/Vol] 3.7 g/dL 3.4-5.0 [facility] ALP [Catalytic activity/Vol] 83 U/L 46-116 [facility] ALT [Catalytic activity/Vol] 40 U/L 14-59 [facility] AST [Catalytic activity/Vol] 22 U/L 15-37 [facility] Bilirubin [Mass/Vol] 0.4 mg/dL 0.2-1.0 [facility] Calcium [Mass/Vol] 9.1 mg/dL 8.5-10.1 [facility] Chloride [Moles/Vol] 104 mmol/L 98-107 [facility] Cholesterol [Mass/Vol] 226 mg/dL <=200 [facility] Cholesterol in HDL [Mass/Vol] 77 mg/dL 40-60 [facility] Comment on above: > or =60 mg/dl - LOW CARDIOVASCULAR RISK<40 mg/dl - HIGH CARDIOVASCULAR RISK CO2 [Moles/Vol] 26.6 mmol/L 21.0-32.0 [facility] Creatinine [Mass/Vol] 1.02 mg/dL 0.55-1.02 [facility] GFR/1.73 sq M.predicted MDRD (S/P/Bld) [Vol rate/Area] mL/min/{1.73_m2} >=60 [facility] Glucose [Mass/Vol] 107 mg/dL 74-106 [facility] Potassium [Moles/Vol] 3.7 mmol/L 3.5-5.1 [facility] Protein [Mass/Vol] 7.3 g/dL 6.4-8.2 [facility] Sodium [Moles/Vol] 141 mmol/L 136-145 [facility] Triglyceride [Mass/Vol] 99 mg/dL <=150 [facility] TSH Qn 1.352 m[IU]/L 0.358-3.740 [facility] Urea nitrogen [Mass/Vol] 9.0 mg/dL 7.0-18.0 [facility] Urea nitrogen/Creatinine [Mass ratio] 8.8 mg/mg [facility] Laboratory - Hematology and Cell countson 11-18-2023 HbA1c (Bld) [Mass fraction] 5.1 % 4.5-6.2 [facility] Comment on above: ADA RECOMMENDED LIMI T 4.0 - 6.0ADA THERAPEUTIC TARGET < 7.0ACTION SUGGESTED> 7.0 Immature granulocytes/100 WBC (Bld) 0.6 % 0.0-0.5 [facility] Leukocytes [#/volume] correc sheeba for nucleated erythrocytes in Blood by Automated counon 11-18-2023 WBC corrected for nucl RBC Auto (Bld) [#/Vol] 6.5 10 3/uL 4.0-11.0 [facility] Lymphocytes Auto (Bld) [#/Vo l]on 11-18-2023 Lymphocytes (Bld) [#/Vol] 1.7 10 3/uL 1.2-3.8 [facility] Lymphocytes/100 WBC Auto (Bl d)on 11-18-2023 Lymphocytes/100 WBC (Bld) 25.3 % 20.5-60.0 [facility] MCH Auto (RBC) [Entitic mass ]on 11-18-2023 MCH (RBC) [Entitic mass] 29.6 pg 26.7-34.0 [facility] MCHC Auto (RBC) [Mass/Vol]on 11-18-2023 MCHC (RBC) [Mass/Vol] 32.1 g/dL 29.9-35.2 [facility] MCV Auto (RBC) [Entitic vol] on 11-18-2023 MCV (RBC) [Entitic vol] 92.3 fL 81.0-99.0 [facility] Monocytes Auto (Bld) [#/Vol] on 11-18-2023 Monocytes (Bld) [#/Vol] 0.5 10 3/uL 0.3-0.8 [facility] Monocytes/100 WBC Auto (Bld) on 11-18-2023 Monocytes/100 WBC (Bld) 7.4 % 1.7-12.0 [facility] Neutrophils Auto (Bld) [#/Vo l]on 11-18-2023 Neutrophils (Bld) [#/Vol] 4.0 10 3/uL 1.4-6.5 [facility] Neutrophils/100 WBC Auto (Bl d)on 11-18-2023 Neutrophils/100 WBC (Bld) 61.3 % 43.0-75.0 [facility] No Panel Informationon 11-17 Eosinophils # (Auto) 0.3 10 3/uL 0.0-0.7 [facility] Immature Granulocyte # (Auto) 0.04 10 3/uL 0.00-0.03 [facility] [place] Level 0.9 mmol/L 0.5-1.2 [facility] Comment on above: A concentration of 0 .5-0.8 mmol/L is advised for long-termuse; concentrations of up to 1.2 mmol/L may be necessaryduring acute treatment. Detection Limit = 0.1 <0.1 indicates None DetectedPerformed at: [place] [id number] Director: Reji Williamson PhD, Phone: [phone] Outside Mammographyon 2023 Outside Mammography [id number]#1.0 0TIFF Normal [facility] Platelet mean volume Auto (B ld) [Entitic vol]on 11-18-2023 Platelet mean volume (Bld) [Entitic vol] 10.1 fL 9.5-13.5 [facility] Platelets Auto (Bld) [#/Vol] on 11-18-2023 Platelets (Bld) [#/Vol] 281 10 3/uL 150-450 [facility] RBC Auto (Bld) [#/Vol]on RBC (Bld) [#/Vol] 5.07 10 6/uL 4.20-5.[address] [facility] Serum or plasma albumin/glob ulin mass ratioon 11-18-2023 Albumin/Globulin [Mass ratio] 1.0 {ratio} [facility] Serum or plasma anion gap de terminationon 11-18-2023 Anion gap [Moles/Vol] 14.1 mmol/L [facility] Serum or plasma total choles terol/high density lipoprotein (HDL) cholesterol mass yoselyn 11-18-2023 Cholesterol.total/Ch olesterol in HDL [Mass ratio] 2.9 {ratio} [facility] Comment on above: 3.3 - 4.4 LOW RISK4. 4 - 7.1 AVERAGE RISK7.1 - 11.0 MODERATE RISK>11.0 HIGH RISK Physician Referralon 024 Physician Referral [id number]#1.0 0TIFF Normal [facility] XR lumbar spine 6V w bending on 05-29-2023 XR lumbar spine 6V w bending [facility] [place] [address] [place] [address] XRay Report Signed Patient: Rain Sweeney MR#: [id number] : 1960 Acct:[id number] Age/Sex: 62 / F ADM Date: 05/29/23 Loc: XD Room: Type: [facility] Attending Dr: Helio Barry MD [...] and facet degeneration. SOFT TISSUES: Unremarkable BONY MINERALIZATION:Adequat e XR/XR lumbar spine 6V w bending IMPRESSION: No hypermobility. Moderate scoliosis. Degenerative change. Impression dictated by: Andrea Nina M.D.05/29/2023 7:00 PM Dictation Location: [place] [address] Transcribed By: [facility] 05/29/231899 Dictated By: Andrea Nina DO 05/29/239 Signed By: 05/29/231899 Normal [facility] XR LSPINE 2_3 VIEWSon 2022 XR LSPINE 2_3 VIEWS EXAMINATION: XR LSPI NE 2_3 VIEWS HISTORY: Low back pain COMPARISON: No relevant comparison available. FINDINGS: BONES: Rotatory dextrocurvature of the lumbosacral spine centered at L3-L4. Mild degenerative spondylosis and facet osteoarthropathy DISC SPACES: Mild widespread disc height narrowing. PARASPINOUS: Negative. No paraspinous abnormality is seen. OTHER: Negative. IMPRESSION: Rotatory dextrocurvature with degenerative changes Electronically authenticated by: MAKEDA MÁRQUEZ Date: 2022-12-06 11:24 Normal [facility] LITHIUMon 11-27-2022 [place] (Eskalith(R)), Serum 0.8 mmol/L Normal 0.5-1.2 [facility] Comment on above: Result Comment: A co ncentration of 0.5-0.8 mmol/L is advised for long-term use; concentrations of up to 1.2 mmol/L may be necessary during acute treatment. Detection Limit = 0.1 <0.1 indicates None Detected Performed By: #### L ITHIUM ####[facility] [id number] [place] [address]Dr. Laurel Buckner CREATININEon 11-26-2022 Creatinine [Mass/Vol] 0.97 mg/dL Normal 0.55-1.02 [facility] Comment on above: Performed By: #### T KISHORE CREA #### [facility] [address] [place] [address] Dr. Laurel Buckner EGFR-AF NAMIBIAN >60 Normal >=60 [facility] Comment on above: Performed By: #### T KISHORE CREA #### [facility] [address] [place] [address] [address] Laurel Buckner EGFR-NON AF NAMIBIAN 59 mL/min/1.73m2 Critically low >=60 [facility] Comment on above: Performed By: #### T KISHORE CREA #### [facility] [address] [place] [address] [address] Laurel Buckner TSHon 11-26-2022 TSH 1.616 uIU/mL Normal 0.358-3.740 [facility] Comment on above: Performed By: #### T SH CREA #### [facility] [address] [place] [address] Dr. Laurel Buckner MG MAMM SCREEN 3D TOMY CADon 11-14-2022 MG MAMM SCREEN 3D TOMY CAD Patient: RAIN SWEENEY Exam Date: 11/14/2022 : 1960 Gender:F Ordering : DR TRISTA BARRY M.D. Admission #: [id number] Family : Order #: [id number] CLICK HERE TO VIEW EXAM RADIOLOGY REPORT [...] colon cancer at age 62. LOCATION: [facility] BREAST COMPOSITION: Heterogeneously dense,which may obscure [...] MD on 11/14/2022 at 12:03 Normal [facility] LITHIUMon 05-16-2022 [place] (Eskalith(R)), Serum 0.8 mmol/L Normal 0.5-1.2 [facility] Comment on above: Result Comment: Plas ma concentration of 0.5 - 0.8 mmol/L are advised for long-term use; concentrations of up to 1.2 mmol/L may be necessary during acute treatment. Detection Limit = 0.1 <0.1 indicates None Detected Performed By: #### L ITHIUM #### [facility] [address] [place], [place] [address] Dr. Laurel Buckner CBC AUTO DIFFon 05-15-2022 BASO # 0.1 103/ul Normal 0.0-0.1 [facility] Comment on above: Performed By: #### C BC #### [facility] [address] [place] [address] Dr. Laurel Buckner Basophils/100 WBC (Bld) 1.0 % Normal 0.2-2.0 [facility] Comment on above: Performed By: #### C BC #### [facility] [address] [place] [address] Dr. Laurel Buckner EO # 0.4 103/ul Normal 0.0-0.7 [facility] Comment on above: Performed By: #### C BC #### [facility] [address] [place] [address] Dr. Laurel Buckner Eosinophils/100 WBC (Bld) 5.3 % Normal 0.9-7.0 [facility] Comment on above: Performed By: #### C BC #### [facility] [address] [place] [address] Dr. Laurel Buckner Erythrocyte distribution width (RBC) [Ratio] 13.8 % Normal 11.0-15.0 [facility] Comment on above: Performed By: #### C BC #### [facility] [address] [place] [address] Dr. Laurel Buckner Hematocrit (Bld) [Volume fraction] 46.8 % Normal 36.0-48.0 [facility] Comment on above: Performed By: #### C BC #### [facility] [address] [place] [address] Dr. Laurel Buckner Hemoglobin (Bld) [Mass/Vol] 14.8 g/dL Normal 12.0-16.0 [facility] Comment on above: Performed By: #### C BC #### [facility] [address] [place] [address] Dr. Laurel Buckner IG # 0.07 10e3/ul Critically high 0.00-0.03 [facility] Comment on above: Performed By: #### C BC #### [facility] [address] [place] [address] Dr. Laurel Buckner IG % 1.0 % Critically high 0.0-0.5 [facility] Comment on above: Performed By: #### C BC #### [facility] [address] [place] [address] Dr. Laurel Buckner LYMPH # 1.7 103/ul Normal 1.2-3.8 [facility] Comment on above: Performed By: #### C BC #### [facility] [address] [place] [address] Dr. Laurel Buckner Lymphocytes/100 WBC (Bld) 25.4 % Normal 20.5-60.0 [facility] Comment on above: Performed By: #### C BC #### [facility] [address] [place] [address] Dr. Laurel Buckner MANUAL DIFF REQ NO Normal [facility] Comment on above: Performed By: #### C BC #### [facility] [address] [place] [address] Dr. Laurel Buckner MCH (RBC) [Entitic mass] 29.5 pg Normal 26.7-34.0 [facility] Comment on above: Performed By: #### C BC #### [facility] [address] [place] [address] Dr. Laurel Buckner MCHC (RBC) [Mass/Vol] 31.6 g/dL Normal 29.9-35.2 [facility] Comment on above: Performed By: #### C BC #### [facility] [address] [place] [address] Dr. Laurel Buckner MCV (RBC) [Entitic vol] 93.4 fL Normal 81.0-99.0 [facility] Comment on above: Performed By: #### C BC #### [facility] [address] [place] [address] Dr. Laurel Buckner MONO # 0.6 103/ul Normal 0.3-0.8 [facility] Comment on above: Performed By: #### C BC #### [facility] [address] [place] [address] Dr. Laurel Buckner Monocytes/100 WBC (Bld) 8.4 % Normal 1.7-12.0 [facility] Comment on above: Performed By: #### C BC #### [facility] [address] [address] [address] Laurel Buckner NEUT # 4.0 103/ul Normal 1.4-6.5 [facility] Comment on above: Performed By: #### C BC #### [facility] [address] [address] [address] Laurel Buckner Neutrophils/100 WBC (Bld) 58.9 % Normal 43.0-75.0 [facility] Comment on above: Performed By: #### C BC #### [facility] [address] [place] [address] Dr. Laurel Buckner Platelet mean volume (Bld) [Entitic vol] 10.1 fL Normal 9.5-13.5 [facility] Comment on above: Performed By: #### C BC #### [facility] [address] [place] [address] Dr. Laurel Buckner PLT 279 103/ul Normal 150-450 [facility] Comment on above: Result Comment: smea r reviewed Performed By: #### C BC #### [facility] [address] [place] [address] Dr. Laurel Buckner RBC 5.01 106/ul Normal 4.20-5.40 [facility] Comment on above: Performed By: #### C BC #### [facility] [address] [place] [address] Dr. Laurel Buckner WBC 6.8 103/ul Normal 4.0-11.0 [facility] Comment on above: Performed By: #### C BC #### [facility] [address] [place] [address] Dr. Laurel Buckner GLYCOHEMOGLOBIN A1Con 2021 ADA RECOMMENDATION SEE BELOW Normal [facility] Comment on above: Result Comment: ADA RECOMMENDED LIMIT 4.0 - 6.0 ADA THERAPEUTIC TARGET < 7.0 ACTION SUGGESTED > 7.0 Performed By: #### A 1C #### [facility] [address] [place] [address] Dr. Laurel Buckner Glucose [Mass/Vol] 97 mg/dL Normal [facility] Comment on above: Performed By: #### A 1C #### [facility] [address] [address] [address] Laurel Buckner HbA1c (Bld) [Mass fraction] 5.0 % Normal 4.5-6.2 [facility] Comment on above: Performed By: #### A 1C #### [facility] [address] [address] [address] Laurel Buckner LIPID PROFILEon 05-15-2022 CHOL-HDL RATIO NORM SEE BELOW Normal [facility] Comment on above: Result Comment: 3.3 - 4.4 LOW RISK 4.4 - 7.1 AVERAGE RISK 7.1 - 11.0 MODERATE RISK >11.0 HIGH RISK Performed By: #### L IPID, TSH, CMP #### [facility] [address] [address] [address] Laurel Buckner Cholesterol [Mass/Vol] 279 mg/dL Critically high <=200 [facility] Comment on above: Performed By: #### L IPID, TSH, CMP #### [facility] [address] [address] [address] Laurel Buckner Cholesterol in HDL [Mass/Vol] 76 mg/dL Critically high 40-60 [facility] Comment on above: Performed By: #### L IPID, TSH, CMP #### [facility] [address] [address] [address] Laurel Buckner Cholesterol in LDL [Mass/Vol] 162.8 mg/dL Normal [facility] Comment on above: Performed By: #### L IPID, TSH, CMP #### [facility] [address] [address] [address] Laurel Buckner Cholesterol.total/Ch olesterol in HDL [Mass ratio] 3.7 {ratio} Normal [facility] Comment on above: Performed By: #### L IPID, TSH, CMP #### [facility] [address] [address] [address] Laurel Buckner HDL NORMAL > or = 60 mg/dl - LO W CARDIOVASCULAR RISK <40 mg/dl - HIGH CARDIOVASCULAR RISK Normal [facility] Comment on above: Performed By: #### L IPID, TSH, CMP #### [facility] [address] [address] [address] Laurel Buckner LDL CALC NORMAL SEE BELOW Normal [facility] Comment on above: Result Comment: <100 mg/dl OPTIMAL 100 - 129 mg/dl NEAR OR ABOVE OPTIMAL 130 - 159 mg/dl BORDERLINE HIGH 160 - 189 mg/dl HIGH >190 mg/dl VERY HIGH Performed By: #### L IPID, TSH, CMP #### [facility] [address] [address] [address] Laurel Buckner Triglyceride [Mass/Vol] 201 mg/dL Critically high <=150 [facility] Comment on above: Performed By: #### L IPID, TSH, CMP #### [facility] [address] [address] [address] Laurel Buckner VLDL CALC 40.2 mg/dL Normal [facility] Comment on above: Performed By: #### L IPID, TSH, CMP #### [facility] [address] [place] [address] Dr. Laurel Buckner PROF 14(COMP METB)on 022 Albumin [Mass/Vol] 3.6 g/dL Normal 3.4-5.0 [facility] Comment on above: Performed By: #### L IPID, TSH, CMP #### [facility] [address] [address] [address] Laurel Buckner Albumin/Globulin [Mass ratio] 0.9 {ratio} Normal [facility] Comment on above: Performed By: #### L IPID, TSH, CMP #### [facility] [address] [address] [address] Laurel Buckner ALP [Catalytic activity/Vol] 110 U/L Normal 46-116 [facility] Comment on above: Performed By: #### L IPID, TSH, CMP #### [facility] [address] [address] [address] Laurel Buckner ALT [Catalytic activity/Vol] 22 U/L Normal 14-59 [facility] Comment on above: Performed By: #### L IPID, TSH, CMP #### [facility] [address] [address] [address] Laurel Buckner Anion gap [Moles/Vol] 10.8 mmol/L Normal [facility] Comment on above: Performed By: #### L IPID, TSH, CMP #### [facility] [address] [address] [address] Laurel Buckner AST [Catalytic activity/Vol] 11 U/L Critically low 15-37 [facility] Comment on above: Performed By: #### L IPID, TSH, CMP #### [facility] [address] [address] [address] Laurel Buckner Bilirubin [Mass/Vol] 0.3 mg/dL Normal 0.2-1.0 [facility] Comment on above: Performed By: #### L IPID, TSH, CMP #### [facility] [address] [place] [address] Dr. Laurel Buckner Calcium [Mass/Vol] 9.1 mg/dL Normal 8.5-10.1 [facility] Comment on above: Performed By: #### L IPID, TSH, CMP #### [facility] [address] [place] [address] Dr. Laurel Buckner Chloride [Moles/Vol] 103 mmol/L Normal 98-107 [facility] Comment on above: Performed By: #### L IPID, TSH, CMP #### [facility] [address] [address] [address] Laurel Buckner CO2 [Moles/Vol] 27.9 mmol/L Normal 21.0-32.0 [facility] [place] [facility] Comment on above: Performed By: #### L IPID, TSH, CMP #### [facility] [address] [place] [address] Dr. Laurel Buckner Creatinine [Mass/Vol] 0.96 mg/dL Normal 0.55-1.02 [facility] Comment on above: Performed By: #### L IPID, TSH, CMP #### [facility] [address] [place] [address] Dr. Laurel Buckner EGFR-AF NAMIBIAN >60 Normal >=60 [facility] Comment on above: Performed By: #### L IPID, TSH, CMP #### [facility] [address] [place] [address] Dr. Laurel Buckner EGFR-NON AF NAMIBIAN 59 mL/min/1.73m2 Critically low >=60 [facility] Comment on above: Performed By: #### L IPID, TSH, CMP #### [facility] [address] [place] [address] Dr. Laurel Buckner Globulin (S) [Mass/Vol] 3.9 g/dL Normal [facility] Comment on above: Performed By: #### L IPID, TSH, CMP #### [facility] [address] [place] [address] Dr. Laurel Buckner Glucose [Mass/Vol] 90 mg/dL Normal 74-106 [facility] Comment on above: Performed By: #### L IPID, TSH, CMP #### [facility] [address] [place] [address] Dr. Laurel Buckner Potassium [Moles/Vol] 3.7 mmol/L Normal 3.5-5.1 [facility] Comment on above: Performed By: #### L IPID, TSH, CMP #### [facility] [address] [place] [address] Dr. Laurel Buckner Protein [Mass/Vol] 7.5 g/dL Normal 6.4-8.2 [facility] Comment on above: Performed By: #### L IPID, TSH, CMP #### [facility] [address] [place] [address] Dr. Laurel Buckner Sodium [Moles/Vol] 138 mmol/L Normal 136-145 [facility] Comment on above: Performed By: #### L IPID, TSH, CMP #### [facility] [address] [place] [address] Dr. Laurel Buckner Urea nitrogen [Mass/Vol] 16.0 mg/dL Normal 7.0-18.0 [facility] Comment on above: Performed By: #### L IPID, TSH, CMP #### [facility] [address] [place], [place] [address] Dr. Laurel Buckner Urea nitrogen/Creatinine [Mass ratio] 16.7 mg/mg Normal [facility] Comment on above: Performed By: #### L IPID, TSH, CMP #### [facility] [address] [place], [place] [address] Dr. Laurel Buckner TSHon 05-15-2022 TSH 3.094 uIU/mL Normal 0.358-3.740 [facility] Comment on above: Performed By: #### L IPID, TSH, CMP #### [facility] [address] [place], [place] [address] Dr. Laurel Buckner Vital Signs Date Time Vital Sign Value Performing Clinician Facility 01-30-2024 09:36-0400 Body height 170.18 cm PHYSICIAN NO [facility] 01-30-2024 09:36-0400 Body mass index (BMI) [Ratio] 26.7 kg/m2 PHYSICIAN NO [facility] 01-30-2024 09:36-0400 Body weight 77.56 kg PHYSICIAN NO [facility] 01-30-2024 09:36-0400 Diastolic blood pressure 80 mm[Hg] PHYSICIAN NO [facility] 01-30-2024 09:36-0400 Heart rate 108 /min PHYSICIAN NO [facility] 01-30-2024 09:36-0400 Systolic blood pressure 114 mm[Hg] PHYSICIAN NO [facility] 11-19-2023 13:56-0400 Blood Pressure Location Dieter BUSTOSL [facility] 11-19-2023 13:56-0400 Diastolic blood pressure 92 mm[Hg] Dieter BUSTOSL [facility] [place] 11-19-2023 13:56-0400 Heart rate 72 /min Dieter BUSTOSL [facility] 11-19-2023 13:56-0400 Respiratory rate 16 /min Dieter BUSTOSL [facility] 11-19-2023 13:56-0400 Systolic blood pressure 132 mm[Hg] Dieter BUSTOSJo [facility] [place] 11-12-2023 10:20-0400 Body height 170.18 cm PHYSICIAN NO [facility] 11-12-2023 10:20-0400 Body mass index (BMI) [Ratio] 28 kg/m2 PHYSICIAN NO [facility] 11-12-2023 10:20-0400 Body weight 81.36 kg PHYSICIAN NO [facility] 11-12-2023 10:20-0400 Diastolic blood pressure 77 mm[Hg] PHYSICIAN NO [facility] 11-12-2023 10:20-0400 Heart rate 124 /min PHYSICIAN NO [facility] 11-12-2023 10:20-0400 Systolic blood pressure 124 mm[Hg] PHYSICIAN NO [facility] 10-22-2023 09:23-0400 Body height 170.18 cm PHYSICIAN NO [facility] 10-22-2023 09:23-0400 Body mass index (BMI) [Ratio] 29.1 kg/m2 PHYSICIAN NO [facility] 10-22-2023 09:23-0400 Body weight 84.36 kg PHYSICIAN NO [facility] 10-22-2023 09:23-0400 Diastolic blood pressure 85 mm[Hg] PHYSICIAN NO [facility] 10-22-2023 09:23-0400 Heart rate 106 /min PHYSICIAN NO [facility] 10-22-2023 09:23-0400 Systolic blood pressure 140 mm[Hg] PHYSICIAN NO [facility] 05-29-2023 14:00-0400 Body height 170.18 cm Helio Barry Other [email or web address] Other 05-29-2023 14:00-0400 Body mass index (BMI) [Ratio] 29.44 kg/m2 Helio Barry Other [email or web address] Other 05-29-2023 14:00-0400 Body weight 85.28 kg Helio Barry Other [email or web address] Other 05-05-2023 08:30-0400 Body height 170.18 cm Trista Barry Other [email or web address] Other 05-05-2023 08:30-0400 Body mass index (BMI) [Ratio] 29.44 kg/m2 Trista Barry Other [email or web address] Other 05-05-2023 08:30-0400 Body weight 85.28 kg Trista Barry Other [email or web address] Other 05-05-2023 08:30-0400 Diastolic blood pressure 82 mm[Hg] Trista Barry Other [email or web address] Other 05-05-2023 08:30-0400 Systolic blood pressure 128 mm[Hg] Trista Barry Other [email or web address] Other 04-01-2023 10:00-0400 Body height 170.18 cm Trista Barry Other [email or web address] Other 04-01-2023 10:00-0400 Body mass index (BMI) [Ratio] 29.13 kg/m2 Trista Barry Other [email or web address] Other 04-01-2023 10:00-0400 Body weight 84.37 kg Trista Barry Other [email or web address] Other 04-01-2023 10:00-0400 Diastolic blood pressure 86 mm[Hg] Trista Barry Other [email or web address] Other 04-01-2023 10:00-0400 Systolic blood pressure 148 mm[Hg] Trista Barry Other [email or web address] Other Encounters Encounter Date Encounter Type Care Provider Facility Start: 05-06-2024 ambulatory BIANKA Macias acility:SERENA Jang Start: 02-26-2024 End: 02-26-2024 ambulatory Beryl Henderson Facility:[facility] Start: 02-26-2024 End: 02-26-2024 Patient encounter procedure Beryl Henderson [facility] Start: 01-30-2024 End: 01-30-2024 ambulatory PHYSICIAN NO [facility] Work Phone: Start: 01-30-2024 End: 01-30-2024 Patient encounter procedure PHYSICIAN NO [facility] Physician [facility] Work Phone: Start: 01-14-2024 End: 01-14-2024 ambulatory Dieter R NILL Facility: [facility] Start: 01-14-2024 End: 01-14-2024 Patient [facility] Start: 01-13-2024 ambulatory Dieter R NILL Facility : [facility] Start: 12-31-2023 End: 12-31-2023 ambulatory PHYSICIAN NO [facility] Work Phone: Start: 12-31-2023 End: 12-31-2023 Departed Referred PHYSICIAN NO [facility] Start: 12-31-2023 End: 12-31-2023 ambulatory Dieter R NILL Facility:[id number] Start: 12-09-2023 ambulatory PHYSICIAN NO [facility] ility:[facility] Start: 12-09-2023 Registered Recurring PHYSICIAN NO [facility]- [facility] Start: 11-19-2023 End: 11-19-2023 ambulatory Dieter R NILL Facility: [facility] Start: 11-19-2023 End: 11-19-2023 Patient encounter procedure Dieter R NILL General Surgery [facility] Start: 11-18-2023 Non-patient / Non-visit PHYSICIAN NO [facility] Physician [facility] Work Phone: Start: 11-17-2023 ambulatory Beryl Galea Facility:Jie [facility] Start: 11-14-2023 ambulatory Beryl Galea Facility:[facility] Botello Start: 11-12-2023 End: 11-12-2023 ambulatory PHYSICIAN NO [facility] Work Phone: Start: 11-12-2023 End: 11-12-2023 Patient encounter procedure PHYSICIAN NO [facility] Work Phone: Start: 11-04-2023 Registered Recurring PHYSICIAN NO [facility] Start: 10-22-2023 Patient encounter status PHYSICIAN NO [facility] Start: 10-22-2023 End: 10-22-2023 Encounter for general adult medical examination without abnormal findings PHYSICIAN NO [facility] Start: 10-22-2023 End: 10-22-2023 Patient encounter procedure PHYSICIAN NO [facility] Physician [facility] Work Phone: Start: 09-09-2023 Registered Recurring PHYSICIAN NO [facility] Start: 05-30-2023 End: 05-30-2023 ambulatory Helio Barry Other [facility] [employer] Other Start: 05-30-2023 Telephone encounter Helio Barry [facility] [employer] Start: 05-29-2023 Office outpatient ne w 30 minutes Helio Barry [facility] Neurosurgery Start: 05-29-2023 End: 05-29-2023 Patient encounter procedure MD Trista Barry Work Phone: [facility] Work Phone: Start: 05-29-2023 End: 05-29-2023 ambulatory MD Trista Barry Work Phone: [facility] Work Phone: Start: 05-16-2023 End: 05-16-2023 ambulatory Trista Barry Other [email or web address] Other Start: 05-16-2023 Telephone encounter Trista Barry [facility] Start: 05-05-2023 End: 05-05-2023 ambulatory Trista Barry Other [email or web address] Other Start: 05-05-2023 Office outpatient vi sit 15 minutes Trista Barry [facility] Start: 04-07-2023 End: 04-07-2023 ambulatory Trista Barry Other [email or web address] Other Start: 04-07-2023 Telephone encounter Trista Barry [facility] Start: 04-01-2023 End: 04-01-2023 ambulatory Trista Barry Other [email or web address] Other Start: 04-01-2023 Office outpatient vi sit 15 minutes Trista Barry [facility] Start: 12-27-2022 ambulatory GOLDY GLOVER Facility: [facility] Start: 12-23-2022 End: 12-23-2022 ambulatory Goldy Glover Other [email or web address] Other Start: 12-23-2022 Office outpatient ne w 45 minutes Goldy Glover [facility] Pain [facility] [place] Start: 12-06-2022 Telephone encounter Trista Barry [facility] Start: 12-06-2022 End: 12-07-[address] TRISTA BARRY [email or web address] Other Start: 11-26-2022 End: 11-27-2022 ambulatory REGULO OWEN Facility:[facility] Start: 11-14-2022 End: 11-15-[address] TRISTA BARRY Facility:[facility] Start: 05-17-2022 Encounter for genera l adult medical examination without abnormal findings DR TRISTA BARRY [facility] Start: 05-15-2022 End: 05-16-[address] TRISTA BARRY Facility:[facility] Start: 05-15-2022 End: 05-16-2022 Encounter for general adult medical examination without abnormal findings DR TRISTA BARRY Facility: Start: 05-14-2022 Adult health examination Trista Barry Other [email or web address] Other Start: 04-18-2022 End: 04-18-2022 ambulatory Gurpreet Marily Other [email or web address] Other Start: 04-18-2022 Telephone encounter Gurpreet Marily [facility] Start: 02-27-2022 End: 02-27-2022 ambulatory Gurpreet Marily Other [email or web address] Other Start: 02-27-2022 Telephone encounter Gurpreet Marily [facility] [employer] Start: 02-05-2022 ambulatory GURPREET MARILY Facility: 1 Start: 12-13-2021 End: 12-13-2021 ambulatory Gurpreet Marily Other [email or web address] Other Start: 12-13-2021 Telephone encounter Gurpreet Marily [facility] Start: 09-19-2021 End: 09-19-2021 ambulatory Gurpreet Marily Other [email or web address] Other Start: 09-19-2021 Telephone encounter Gurpreet Marily [facility] Start: 09-05-2021 End: 09-05-2021 ambulatory Gurpreet Marily Other [email or web address] Other Start: 09-05-2021 Telephone encounter Gurpreet Marily [facility] Procedures Date Procedure Procedure Detail Performing Clinician Start: 05-29-2023 X-ray of lumbar spin e, six views including bending views MD Trista Barry Work Phone: History of bilateral breast implants Dieter WASSERMAN History of nasal sin us surgery Dieter WASSERMAN Ligation of fallopian tube Sarath WASSERMAN Screening for malign ant neoplasm of breast Trista Barry Other Screening for malign ant neoplasm of colon Trista Barry Other Stapedectomy Dieter WASSERMAN Plan of Treatment Date Care Activity Detail Author Start: 11-12-2023 Patient referral [facility] Work Phone: MG Breast - bilatera l Diagnostic [facility] Patient Education Yearly Physica l for Adults [facility] Work Phone: Patient referral [facility] Work Phone: Immunizations Immunization Date Immunization Notes Care Provider Ed bran 10-12-2022 influenza virus vaccine, unspecified formulation Dieter BUSTOSJo [facility] [place] 10-12-2022 influenza, injectabl e, quadrivalent, preservative free Trista Barry Other [facility] 02-19-2022 diphtheria, tetanus toxoids and acellular pertussis vaccine, unspecified formulation Trista Barry Other [facility] 02-19-2022 tetanus toxoid, reduced diphtheria toxoid, and acellular pertussis vaccine, adsorbed Trista Barry Other [facility] 08-07-2021 COVID-19 Vaccine Moderna - Documentation Purposes Only Trista Barry Other [facility] 05-28-2021 influenza virus vaccine, split virus (incl. purified surface antigen) Trista Barry Other [email or web address] Other 05-28-2021 influenza virus vaccine, unspecified formulation PHYSICIAN NO FAMILY [facility] 12-09-2020 COVID-19 Vaccine Moderna - Documentation Purposes Only Trista Barry Other [facility] 11-11-2020 COVID-19 Vaccine Moderna - Documentation Purposes Only Trista Barry Other [facility] Payers Date Payer Category Payer Unknown [id number] 2.16.84 [id number] 1960 Unknown [id number] 2.16.84 [id number] 1962 Unknown [id number] 2.16.84 [id number] 1962 Unknown [id number] 2.16.84 [id number] 1962 Unknown [id number] 2.16.84 [id number] 1962 Unknown [id number] 2.16.84 [id number] 1962 Unknown [id number] 2.16.8 [id number] 1962 Unknown [id number] 2.16.8 [id number] 1962 Unknown [id number] 2.16.8 [id number] 1962 Unknown [id number] 2.16.8 [id number] 1962 Unknown [id number] 2.16.8 [id number] 1962 Unknown [id number] 2.16.8 [id number] 1962 Unknown [id number] 2.16.8 [id number] 1959 Private Health Insurance [id number] 1959 Private Health Insurance [id number] Self-pay [facility] [id number] Private Health Insurance [id number] Unknown [id number] 2.16.8 [id number] Unknown [id number] 2.16.8 [id number] Social History Date Type Detail Facility Sex Assigned At [facility] Start: 1960 Sex Assigned At Female F [facility] Start: 05-29-2023 End: 11-19-2023 Tobacco smoking status NHIS Never smoked tobacco (finding) [facility] Tobacco smoking status Never Gener [facility] Functional Status Date Assessment Result Facility 11-19-2023 Functional Status N/A General [facility] [place] Clinical Notes 12-13-2021 to 11-19-2023 Note Date [...] (COVID-19) mRNA-1273 vaccine 11/11/[address] [facility] Comment on above: Result Comment: Elec [...] may be able to offer some advice. [email or web address] Other 09-25-2023 Evaluation note* Encounter Date Diagnosis Assessment Notes Treatment Notes Treatment Clinical Notes Apr, Right lumbar radiculopathy (ICD-10 - M54.16) Presently in PT - discharged on 05/02. Requests MRI and referral. [email or web address] Other 08-22-2023 Evaluation note* Encounter Date Diagnosis Assessment Notes Treatment Notes Treatment Clinical Notes Mar, Right hip pain (ICD-10 - M25.551) PT paper given to pt. Handout for home stretches given as well. Tramadol to help her sleep. She understands it is a controlled substance and could be sedating. [email or web address] Other 05-15-2023 Evaluation note* Encounter Date Diagnosis [...] Above note written by Morris Flor MA, [employer]. Edited and approved by Dr. Goldy Glover [...] negative findings were considered in medical decision-making. [email or web address] Other 04-28-2023 Evaluation note* Encounter Date Diagnosis Assessment Notes Treatment Notes Treatment Clinical Notes Nov, Lumbar pain (ICD-10 - M54.50) [email or web address] Other 07-20-2022 Evaluation note* Encounter Date Diagnosis Assessment Notes Treatment Notes Treatment Clinical Notes Feb, Bipolar 1 disorder, depressed (ICD-10 - F31.9) [email or web address] Other 05-05-2022 Evaluation note* Encounter Date Diagnosis Assessment Notes Treatment Notes Treatment Clinical Notes December, Bipolar 1 disorder, depressed (ICD-10 - F31.9) [email or web address] Other Evaluation + Plan note No data available for this section General [facility] [place] Evaluation noteNo InformationNort [employer] Other Evaluation noteNo assessment information available [facility] Work Phone: Evaluation note* Diagnosis Onset Date Resolution Status Acne acute Breast mass, right acute Wellness examination acute Abnormal ultrasound of breast acute [facility] Work Phone: Evaluation note* Diagnosis Onset Date Resolution Status Abnormal ultrasound of breast acute [facility] Work Phone: History general Narrative - Reported* Type Description Date Medical History bipolar disorder Medical History anxiety disorder Medical History high blood pressure Surgical History 2 boul ligation 2000 Surgical History stepidectomy 2009 Surgical History sinus surgery 2015 Hospitalization History See surgical hx Hospitalization History [facility] [employer] Other Hismhcx general Narrative - Reported* Type Description Date Medical History bipolar disorder Medical History anxiety disorder Medical History high blood pressure Medical History Fatigue Medical History High risk medication use Surgical History 2 boul ligation 2000 Surgical History stepidectomy 2009 Surgical History sinus surgery 2015 Surgical History LUBAL LIGATION Hospitalization History See surgical hx Hospitalization History [facility] [employer] Other Hishiyj general Narrative - Reported* Type Description Date [...] Hospitalization History See surgical hx Hospitalization History [facility] [employer] Other Hospital Discharge instructionsAmbulatory Orders* Referral to General Surgery Time Frame: 11/12/23, Location: None [facility] Work Phone: Hospital Discharge instructions No data available for this section General [facility] [place] Progress note No data available for this section General [facility] [place] Reason for Referral Reason piriformis pain Diagnosis 1 Adolescent idiopathi c scoliosis of lumbosacral spine (M41.127) Referral Organization [facility] Ne urosurgery Referring Provider First Name Helio Referring Provider Last Name Asha Referring Provider Specialty Neurologica l Surgery Referred Organization [facility] Referred Provider Danny Solares Referred Address [address] [place],[address] Referred Provider Specialty Orthopaedic Surgery Referral Priority Routine Reason Requests Dr. Helio qureshi - MRI pending. Went to [facility] and had xrays on 05/05. Diagnosis 1 Right lumbar radicul opathy (M54.16) Referral Organization [facility] Referring Provider First Name Trista Referring Provider Last Name Asha Referring Provider Specialty Family Medi cine Referred Organization [facility] Neurosurgery [place] Referred Address [address] [place], [place],[address] Referred Provider Specialty Neurological Surgery Referral Priority Routine Reason No preference on off ice - Lumbar pain - recent OV and xray - thanks Diagnosis 1 Lumbar pain (M54.50) Referral Organization [facility] Referring Provider First Name Trista Referring [...] right Wellness examination Abnormal ultrasound of breast Chief Complaint Wellness review ultrasound Unknown Reason for Visit Acne Breast mass, right Wellness examination Abnormal ultrasound of breast Chief Complaint review ultrasound Unknown blood work, leaking urine, med refill Reason for Visit Abnormal ultrasound of breast Additional Source Comments REASON FOR VISIT (unrecogniz ed section and content) cancelled apptupdateupdate/r efillRefillsreferrallumbar xrayREF BY DR TRISTA BARRY FOR LUMBAR PAINReferral?TBHReferralMRIreferred by Dr. Sarath Barry right lumbar radicNeurosurgery Office Notes INFORMATION SOURCE (unrecogn ized section and content) DATE CREATED AUTHOR 12/25/2022 [facility] DATE CREATED AUTHOR AUTHOR'S ORGANIZ ATION 01/13/2024 [facility] DATE CREATED AUTHOR AUTHOR'S ORGANIZ ATION 04/03/2024 [facility] (unrecognized sec tion and content) Team Status: Active Member Role Status Dates Trista Barry MD Primary Care Provider Active Team Status: Inactive Member Role Status Dates Trista Barry MD Primary Care Provide r, Attending Provider Active Start: October 22, 2023 End: October 22, 2023 Team Status: Active Member Role Status Dates PHYSICIAN NO FAMILY Primary Care Provider Active Start: November 04, 2023 Pan Sanders MD Attending Provider Active Start: November 04, 2023 Team Status: Inactive Member Role Status Dates Trista Barry MD Primary Care Provide r, Attending Provider Active Start: November 12, 2023 End: November 12, 2023 Team Status: Active Member Role Status Dates Trista Barry MD Primary Care Provide r, Attending Provider Active Start: November 18, 2023 Team Status: Inactive Member Role Status Dates Trista Barry MD Primary Care Provider Active Start: December 31, 2023 End: December 31, 2023 Dieter Wasserman MD [facility] Attending Provider Active Start: December 31, 2023 End: December 31, 2023 Team Status: Active Member Role Status Dates PHYSICIAN NO FAMILY Primary Care Provider Active Start: September 09, 2023 Pan Sanders MD Attending Provider Active Start: September 09, 2023 Team Status: Inactive Member Role Status Dates Helio Barry MD Attending Provider Active Trista Barry MD Primary Care Provider Active Team Status: Active Member Role Status Dates PHYSICIAN NO FAMILY Primary Care Provider Active Start: December 09, 2023 Pan Sanders MD Attending Provider Active Start: December 09, 2023 Team Status: Inactive Member Role Status Dates Trista Barry MD Primary Care Provide r, Attending Provider Active Start: January 30, 2024 End: January 30, 2024 Goals (unrecognized section and content) Goals may [...] BE BASED ON THE PRIMARY CLINICAL RECORDS. [facility] [employer] provides no warranty or guarantee of the accuracy or completeness of information in this document.
[2024-04-09 10:31] LABS: Basophils Absolute Auto 0.1 10^3/uL (0.0-0.1); Basophils Percent Auto 0.8 % (0.2-2.0); Eosinophils Absolute Auto 0.2 10^3/uL (0.0-0.7); Eosinophils Percent Auto 2.3 % (0.9-7.0); Hematocrit 48.4 % (36.0-48.0); Hemoglobin 15.8 g/dL (12.0-16.0); Immature Granulocytes Abs Auto 0.05 10^3/uL (0.00-0.03); Immature Granulocytes Pct Auto 0.7 % (0.0-0.5); Lymphocytes Absolute Auto 1.9 10^3/uL (1.2-3.8); Lymphocytes Percent Auto 25.8 % (20.5-60.0); Mean Corpuscular HGB Conc 32.6 g/dL (29.9-35.2); Mean Corpuscular Hemoglobin 29.5 pg (26.7-34.0); Mean Corpuscular Volume 90.3 fL (81.0-99.0); Monocytes Absolute Auto 0.6 10^3/uL (0.3-0.8); Monocytes Percent Auto 7.9 % (1.7-12.0); Neutrophils Absolute Auto 4.6 10^3/uL (1.4-6.5); Neutrophils Percent Auto 62.5 % (43.0-75.0); Platelet Count 278 10^3/uL (150-450); Red Blood Count 5.36 10^6/uL (4.20-5.40); Red Cell Distribution Width 14.2 % (11.0-15.0); White Blood Count 7.4 10^3/uL (4.0-11.0)
[2024-04-09 12:07] LABS: Alanine Aminotransferase 30 U/L (14-59); Albumin Globulin Ratio 0.9; Albumin Level 3.5 g/dL (3.4-5.0); Alkaline Phosphatase 92 U/L (46-116); Aspartate Amino Transferase 17 U/L (15-37); Bilirubin Direct 0.1 mg/dL (0.0-0.2); Bilirubin Total 0.6 mg/dL (0.2-1.0); Chol HDL Ratio 3.8; Cholesterol 263 mg/dL (<=200); Globulin 3.7 g/dL; HDL Cholesterol 70 mg/dL (40-60); Total Protein 7.2 g/dL (6.4-8.2); Triglycerides 188 mg/dL (<=150); VLDL CHOLESTEROL 37.6 mg/dL
[2024-04-10 08:12] LABS: FSH 71.8 mIU/mL (25.8-134.8)
[2024-04-10 10:09] LABS: Lithium (Eskalith(R)), Serum 0.1 mmol/L (0.5-1.2)
== END 2024-04-09 10:10 | disposition home or self-care (01) ==
LOC: LAB 10:10
PROVIDERS: PCP Family Medicine; Visit Provider Dermatology
DX: L70.0 Acne vulgaris (principal); L82.0 Inflamed seborrheic keratosis; Z79.899 Other long term (current) drug therapy
CPT/HCPCS: 36415; 80061; 80076; 80178; 83001; 85025

== ENCOUNTER 2024-04-21 20:08 | Outpatient (REF) | payer OTHER, SELFPAY ==
--- OUTSIDE RECORDS SUMMARY | 2024-04-21 20:12 | XMS_ITS | CCD ---
Author Organization [facility] CliniSyil Care Team Providers Care Separator Tender Name Role Phone Gurpreet Calixto Unavailable Trista [...] Provider MD Trista Barry Primary Care Provider [phone] Helio Barry Unavailable NO FAMILY, PHYSICIAN Primary Care Provider Unava MD Pan Gutierrez Attending Provider [phone] TRISTA BARRY Primary Care Physician NO FAMILY, PHYSICIAN Primary Care Provider Unava MD Pan Gutierrez Attending Provider MD Trista Barry Primary Care Provider MD Dieter Wasserman Attending Provider [phone] Dieter Wasserman Attending Unavailable Dieter Wasserman Admitting Unavailable Trista Barry Primary Care Unavailable Helio Barry Admitting Unavailable Trista Barry Primary Care Unavailable Helio Barry Attending Unavailable NO FAMILY, PHYSICIAN Primary Care Unavailable Pan Sanders Attending Unavailab Pan [place] Admitting Unavailab clauida NO FAMILY, PHYSICIAN Primary Care Provider MD Pan Carmona Attending Provider Beryl Henderson Attending Unavailable NILDieter Osorio Attending Unavailable NILLDieter Attending Unavailable NILLDieter Attending Unavailable NILL, Dieter Masters Attending Unavailable BIANKA FLORES Attending Unavailab le Allergies Allergy Classification Reported Allergen(s) Allergy Type Date of Onset Reaction(s) Facility metFORMIN (1 source) metFORMIN Drug Allergy 4 [facility] Repository Penicillins (antibiotic) (1 source) Penicillins Drug Allergy [address] [place] [address] Repository (8 sources) Penicillins Drug allergy 4 [facility] (15 sources) metFORMIN; Translations: [metformin] Drug Allergy 4 Weal (disorder) [facility] (8 sources) Substance with penicillin structure and antibacterial mechanism of action (substance) [facility] (4 sources) Penicillin; Translations: [penicillin] Drug Allergy Weal (disorder) [facility] General Surgery [place] Medications Current Medications Medication Drug Class(es) Dates [...] mo uth three times daily at bedtime Como Carbonate Active MG PO Three times daily October 22, 2023 9:33am FreeTextSi tablets Orally at HS; Note: Source Status: [id number] mg as needed; Refills: 0; Provider: Asha Cadet ( ) Start: 10-22-2023 End: 10-22-2023 take 3 tablets by mouth at bedtime Como Carbonate Discontinued MG PO October 22, 2023 12:00am October 22, 2023 9:34am FreeTextSi tablets Orally at HS; Note: Source Status: [id number] mg as needed; Refills: 0; Provider: Asha Cadet ( ) take 3 tablets by mo [facility] at bedtime Como Carbonate ER 300 MG 3 tablets Orally at HS for 90 days 900-1200 mg as needed Active take 4 tablets by mo uth every twenty-four hours Como Carbonate ER 300 MG 4 tablets Orally [...] 3 times a day prn Active Iron Fum,Hx-Tzkqo-Qghmr,C No.9 (Iron Folate Plus) 125 mg iron- 1 mg capsule (3 sources) Start: 10-22-2023 End: 10-22-2023 take 1 capsule by mouth once daily at mealtime Iron Fum,Lu-Vdejo-Maboo,C No.9 (Iron Folate Plus) 125 mg iron- [...] sources) H/O: high risk medication; Translations: [Other academic affairs vice president (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) drug therapy] Episodic Other aftercare (5 sources) Other care home (current) drug therapy; Translations: [OTH HALFWAY CURRENT DRUG THERAPY] Onset: 2 Episodic Other aftercare (2 sources) Long-term current use of drug therapy; Translations: [Other academic affairs vice president (current) drug therapy] Episodic Other and ill-defined [...] (COVID-19) mRNA-1273 vaccine 11/11/2020 Recorded Normal [facility] Comment on above: Result Comment: [...] SARS-CoV-2 (COVID-19) mRNA-1273 vaccine 11/11/2020 Recorded Normal [facility] Operative Reporton Operative Report [id number]#1.0 0TIFF Normal [facility] Pathology Noteon 01-08-2024 Pathology Note [id number]#1.0 0TIFF Normal [facility] [place] 12-31-2023 L Specimen: [id number] Received: 01/01/24 Status: VALERIE Mancini Num: [id number] Spec Type: Surgical Subm Dr: Dieter Wasserman MD FACS Tissues: A Skin-Other than Cyst, tag, debridement or plastic repair (RT NIPPLE LESION) Procedures: HE, Gross/Micro L4 Age/ Patient Sex Location Account Attending Physician Rain Sweeney 63/F [facility] [id number] Dieter Wasserman MD FACS SPEC NUM: [id number] RECD: 01/01/24 STATUS: VALERIE MANCINI NUM: [id number] JOSEMANUEL: 12/31/[address]: Dieter Wasserman MD [...] and entirely submitted in A1. ---- Specimen: [id number] Received: 01/01/24 Status: VALERIE Resendizsmooth Num: [id number] Spec Type: Surgical Subm Dr: Dieter Wasserman MD FACS Tissues: A Skin-Other than Cyst, tag, debridement or plastic repair (RT NIPPLE LESION) Procedures: EVERETT, Gross/Carlo L4 ---- Patient: Rain Sweeney [id number] (Continued) ---- Specimen: [id number] Received: 01/01/24 (Continued) Signed (signature on file) Bobbi Buckner MD 01/05/24 1812 ---- Specimen: [id number] Received: 01/01/24 Status: VALERIE Mancini Num: [id number] Spec Type: Surgical Subm Dr: Dieter Wasserman MD FACS Tissues: A Skin-Other than Cyst, tag, debridement or plastic repair (RT NIPPLE LESION) Procedures: EVERETT Gross/Carlo L4 ---- Patient: Rain Sweeney [id number] (Continued) ---- Specimen: [id number] Received: 01/01/24 (Continued) CPT Codes 14175 ---- ---- Specimen: [id number] Received: 01/01/24 Status: VALERIE Mancini Num: [id number] Spec Type: Surgical Subm Dr: Dieter Wasserman MD FACS Tissues: A Skin-Other than Cyst, tag, debridement or plastic repair (RT NIPPLE LESION) Procedures: EVERETT, Gross/Carlo L4 ---- Patient: Rain Sweeney [id number] (Continued) ---- Signed (signature on file) Bobbi Buckner MD 01/05/241811 Normal [facility] Consent for Procedure/Surger yon 11-21-2023 Consent for Procedure/Surgery [id number]#1.0 0TIFF [facility] Facesheeton 11-20-2023 Facesheet [id number]#1.0 0TIFF [facility] RAD - Ultrasound Reporton RAD - Ultrasound Report [id number]#1.0 0TIFF [facility] Ambulatory Visit Summaryon 0 11-19-2023 Ambulatory [...] you for choosing us for your care. [facility] Basophils Auto (Bld) [#/Vol] on 11-18-2023 Basophils (Bld) [#/Vol] 0.1 10 3/uL 0.0-0.1 [facility] Basophils/100 WBC Auto (Bld) on 11-18-2023 Basophils/100 WBC (Bld) 0.9 % 0.2-2.0 [facility] Cholesterol in LDL Calc [Mas s/Vol]on 11-18-2023 Cholesterol in LDL [Mass/Vol] 130.0 mg/dL [facility] Comment on above: <100 mg/dl [id number] 0-129 mg/dl NEAR OR ABOVE FMDVUIH877-144 mg/dl BORDERLINE RPTB805-649 mg/dl HIGH>190 mg/dl VERY HIGH Cholesterol in VLDL Calc [Ma ss/Vol]on 11-18-2023 Cholesterol in VLDL [Mass/Vol] 19.8 mg/dL [facility] Eosinophils/100 WBC Auto (Bl d)on 11-18-2023 Eosinophils/100 WBC (Bld) 4.5 % 0.9-7.0 [facility] Erythrocyte distribution wid th Auto (RBC) [Ratio]on 11-18-2023 Erythrocyte distribution width (RBC) [Ratio] 13.6 % 11.0-15.0 [facility] Estimated glomerular filtrat ion rate (GFR) non- Americanon 11-18-2023 GFR/1.73 sq M.predicted among non-blacks MDRD (S/P/Bld) [Vol rate/Area] 55 mL/min/{1.73_m2} >=60 [facility] Globulin Calc (S) [Mass/Vol] on 11-18-2023 Globulin (S) [Mass/Vol] 3.6 g/dL [facility] Glucose mean value [Mass/vol ume] in Blood Estimated from glycated hemoglobinon 11-18-2023 Average glucose Estimated from glycated hemoglobin (Bld) [Mass/Vol] 100 mg/dL [facility] Hematocrit Auto (Bld) [Volum e fraction]on 11-18-2023 Hematocrit (Bld) [Volume fraction] 46.8 % 36.0-48.0 [facility] Hemoglobin [Mass/volume] in Bloodon 11-18-2023 Hemoglobin (Bld) [Mass/Vol] 15.0 g/dL 12.0-16.0 [facility] Laboratory - Chemistry and C hemistry - challengeon 11-18-2023 Albumin [Mass/Vol] 3.7 g/dL 3.4-5.0 [facility] ALP [Catalytic activity/Vol] 83 U/L 46-116 [facility] ALT [Catalytic activity/Vol] 40 U/L 14-59 [facility] AST [Catalytic activity/Vol] 22 U/L 15-37 [facility] Bilirubin [Mass/Vol] 0.4 mg/dL 0.2-1.0 [facility] Calcium [Mass/Vol] 9.1 mg/dL 8.5-10.1 [facility] Chloride [Moles/Vol] 104 mmol/L 98-107 [facility] Cholesterol [Mass/Vol] 226 mg/dL <=200 [facility] Cholesterol in HDL [Mass/Vol] 77 mg/dL 40-60 [facility] Comment on above: > or =60 mg/dl - LOW CARDIOVASCULAR RISK<40 mg/dl - HIGH CARDIOVASCULAR RISK CO2 [Moles/Vol] 26.6 mmol/L 21.0-32.0 [facility] Creatinine [Mass/Vol] 1.02 mg/dL 0.55-1.02 [facility] GFR/1.73 sq M.predicted MDRD (S/P/Bld) [Vol rate/Area] mL/min/{1.73_m2} >=60 [facility] Glucose [Mass/Vol] 107 mg/dL 74-106 [facility] Potassium [Moles/Vol] 3.7 mmol/L 3.5-5.1 [facility] Protein [Mass/Vol] 7.3 g/dL 6.4-8.2 [facility] Sodium [Moles/Vol] 141 mmol/L 136-145 [facility] Triglyceride [Mass/Vol] 99 mg/dL <=150 [facility] TSH Qn 1.352 m[IU]/L 0.358-3.740 [facility] Urea nitrogen [Mass/Vol] 9.0 mg/dL 7.0-18.0 [facility] Urea nitrogen/Creatinine [Mass ratio] 8.8 mg/mg [facility] Laboratory - Hematology and Cell countson 11-18-2023 HbA1c (Bld) [Mass fraction] 5.1 % 4.5-6.2 [facility] Comment on above: ADA RECOMMENDED LIMI T 4.0 - 6.0ADA THERAPEUTIC TARGET < 7.0ACTION SUGGESTED> 7.0 Immature granulocytes/100 WBC (Bld) 0.6 % 0.0-0.5 [facility] Leukocytes [#/volume] correc sheeba for nucleated erythrocytes in Blood by Automated counon 11-18-2023 WBC corrected for nucl RBC Auto (Bld) [#/Vol] 6.5 10 3/uL 4.0-11.0 [facility] Lymphocytes Auto (Bld) [#/Vo l]on 11-18-2023 Lymphocytes (Bld) [#/Vol] 1.7 10 3/uL 1.2-3.8 [facility] Lymphocytes/100 WBC Auto (Bl d)on 11-18-2023 Lymphocytes/100 WBC (Bld) 25.3 % 20.5-60.0 [facility] MCH Auto (RBC) [Entitic mass ]on 11-18-2023 MCH (RBC) [Entitic mass] 29.6 pg 26.7-34.0 [facility] MCHC Auto (RBC) [Mass/Vol]on 11-18-2023 MCHC (RBC) [Mass/Vol] 32.1 g/dL 29.9-35.2 [facility] MCV Auto (RBC) [Entitic vol] on 11-18-2023 MCV (RBC) [Entitic vol] 92.3 fL 81.0-99.0 [facility] Monocytes Auto (Bld) [#/Vol] on 11-18-2023 Monocytes (Bld) [#/Vol] 0.5 10 3/uL 0.3-0.8 [facility] Monocytes/100 WBC Auto (Bld) on 11-18-2023 Monocytes/100 WBC (Bld) 7.4 % 1.7-12.0 [facility] Neutrophils Auto (Bld) [#/Vo l]on 11-18-2023 Neutrophils (Bld) [#/Vol] 4.0 10 3/uL 1.4-6.5 [facility] Neutrophils/100 WBC Auto (Bl d)on 11-18-2023 Neutrophils/100 WBC (Bld) 61.3 % 43.0-75.0 [facility] No Panel Informationon 11-17 Eosinophils # (Auto) 0.3 10 3/uL 0.0-0.7 [facility] [place] Immature Granulocyte # (Auto) 0.04 10 3/uL 0.00-0.03 [facility] Como Level 0.9 mmol/L 0.5-1.2 [facility] Comment on above: A concentration of 0 .5-0.8 mmol/L is advised for long-termuse; concentrations of up to 1.2 mmol/L may be necessaryduring acute treatment. Detection Limit = 0.1 <0.1 indicates None DetectedPerformed at: [facility] [id number] Director: Reji Williamson PhD, Phone: [phone] Outside Mammographyon 2023 Outside Mammography [id number]#1.0 0TIFF Normal [facility] Platelet mean volume Auto (B ld) [Entitic vol]on 11-18-2023 Platelet mean volume (Bld) [Entitic vol] 10.1 fL 9.5-13.5 [facility] Platelets Auto (Bld) [#/Vol] on 11-18-2023 Platelets (Bld) [#/Vol] 281 10 3/uL 150-450 [facility] RBC Auto (Bld) [#/Vol]on RBC (Bld) [#/Vol] 5.07 10 6/uL 4.20-5.40 [facility] Serum or plasma albumin/glob ulin mass ratioon 11-18-2023 Albumin/Globulin [Mass ratio] 1.0 {ratio} [facility] Serum or plasma anion gap de terminationon 11-18-2023 Anion gap [Moles/Vol] 14.1 mmol/L [facility] Serum or plasma total choles terol/high density lipoprotein (HDL) cholesterol mass yoselyn 11-18-2023 Cholesterol.total/Ch olesterol in HDL [Mass ratio] 2.9 {ratio} [facility] Comment on above: 3.3 - 4.4 LOW RISK4. 4 - 7.1 AVERAGE RISK7.1 - 11.0 MODERATE RISK>11.0 HIGH RISK Physician Referralon 024 Physician Referral [id number]#1.0 0TIFF Normal [facility] XR lumbar spine 6V w bending on 05-29-2023 XR lumbar spine 6V w bending [facility] Main [facility] [address] [place] [address] XRay Report Signed Patient: Rain Sweeney MR#: [id number] : 1960 Acct:[id number] Age/Sex: 62 / F ADM Date: 05/29/23 Loc: XD Room: Type: [facility] Attending Dr: Helio Barry MD Copies to: [...] Andrea Nina M.D.05/29/2023 7:00 PM Dictation Location: [place] [address] Transcribed By: [facility] 05/29/231899 Dictated By: Andrea Nina DO 05/29/233 Signed By: 05/29/231899 Normal [facility] XR LSPINE 2_3 VIEWSon 2022 [...] MAKEDA MÁRQUEZ Date: 2022-12-06 11:24 Normal [facility] LITHIUMon 11-27-2022 Como (Eskalith(R)), Serum 0.8 mmol/L Normal 0.5-1.2 [facility] Comment on above: Result Comment: A co ncentration of 0.5-0.8 mmol/L is advised for long-term use; concentrations of up to 1.2 mmol/L may be necessary during acute treatment. Detection Limit = 0.1 <0.1 indicates None Detected Performed By: #### L ITHIUM ####[facility] [id number] [place] [address]Dr. Laurel Buckner CREATININEon 11-26-2022 Creatinine [Mass/Vol] 0.97 mg/dL Normal 0.55-1.02 [facility] Comment on above: Performed By: #### T KISHORE CREA #### [facility] [address] [place] [address] Dr. Laurel Buckner EGFR-AF [place] >60 Normal >=60 [facility] Comment on above: Performed By: #### T KISHORE CREA #### [facility] [address] [place] [address] [address] Laurel Buckner EGFR-NON AF [place] 59 mL/min/1.73m2 Critically low >=60 [facility] Comment on above: Performed By: #### T KISHORE CREA #### [facility] [address] [place] [address] [address] Laurel Buckner TSHon 11-26-2022 TSH 1.616 uIU/mL Normal 0.358-3.740 [facility] Comment on above: Performed By: #### T SH CREA #### [facility] [address] [place] [address] Dr. Laurel Buckner MG MAMM SCREEN 3D TOMY CADon 11-14-2022 MG MAMM SCREEN 3D TOMY CAD Patient: RAIN SWEENEY Exam Date: 11/14/2022 : 1960 Gender:F Ordering : DR TRISTA BARRY M.D. Admission #: [id number] Family : Order #: [id number] CLICK HERE TO VIEW EXAM RADIOLOGY REPORT [...] colon cancer at age 62. LOCATION: [facility] BREAST COMPOSITION: Heterogeneously dense,which may obscure [...] MD on 11/14/2022 at 12:03 Normal [facility] LITHIUMon 05-16-2022 [place] (Eskalith(R)), Serum 0.8 mmol/L Normal 0.5-1.2 [facility] Comment on above: Result Comment: Plas ma concentration of 0.5 - 0.8 mmol/L are advised for long-term use; concentrations of up to 1.2 mmol/L may be necessary during acute treatment. Detection Limit = 0.1 <0.1 indicates None Detected Performed By: #### L ITHIUM #### [facility] [address] [place], [place] [address] Dr. Laurel Buckner CBC AUTO DIFFon 05-15-2022 BASO # 0.1 103/ul Normal 0.0-0.1 [facility] Comment on above: Performed By: #### C BC #### [facility] [address] [place] [address] Dr. Laurel Buckner Basophils/100 WBC (Bld) 1.0 % Normal 0.2-2.0 [facility] Comment on above: Performed By: #### C BC #### [facility] [address] [place] [address] Dr. Laurel Buckner EO # 0.4 103/ul Normal 0.0-0.7 [facility] Comment on above: Performed By: #### C BC #### [facility] [address] [place] [address] Dr. Laurel Buckner Eosinophils/100 WBC (Bld) 5.3 % Normal 0.9-7.0 [facility] Comment on above: Performed By: #### C BC #### [facility] [address] [place] [address] Dr. Laurel Buckner Erythrocyte distribution width (RBC) [Ratio] 13.8 % Normal 11.0-15.0 [facility] Comment on above: Performed By: #### C BC #### [facility] [address] [place] [address] Dr. Laurel Buckner Hematocrit (Bld) [Volume fraction] 46.8 % Normal 36.0-48.0 [facility] Comment on above: Performed By: #### C BC #### [facility] [address] [place] [address] Dr. Laurel Buckner Hemoglobin (Bld) [Mass/Vol] 14.8 g/dL Normal 12.0-16.0 [facility] Comment on above: Performed By: #### C BC #### [facility] [address] [place] [address] Dr. Laurel Buckner IG # 0.07 10e3/ul Critically high 0.00-0.03 [facility] Comment on above: Performed By: #### C BC #### [facility] [address] [place] [address] Dr. Laurel Buckner IG % 1.0 % Critically high 0.0-0.5 [facility] Comment on above: Performed By: #### C BC #### [facility] [address] [place] [address] Dr. Laurel Buckner LYMPH # 1.7 103/ul Normal 1.2-3.8 [facility] Comment on above: Performed By: #### C BC #### [facility] [address] [place] [address] Dr. Laurel Buckner Lymphocytes/100 WBC (Bld) 25.4 % Normal 20.5-60.0 [facility] Comment on above: Performed By: #### C BC #### [facility] [address] [place] [address] Dr. Laurel Buckner MANUAL DIFF REQ NO Normal [facility] Comment on above: Performed By: #### C BC #### [facility] [address] [place] [address] Dr. Laurel Buckner MCH (RBC) [Entitic mass] 29.5 pg Normal 26.7-34.0 [facility] Comment on above: Performed By: #### C BC #### [facility] [address] [place] [address] Dr. Laurel Buckner MCHC (RBC) [Mass/Vol] 31.6 g/dL Normal 29.9-35.2 [facility] Comment on above: Performed By: #### C BC #### [facility] [address] [place] [address] Dr. Laurel Buckner MCV (RBC) [Entitic vol] 93.4 fL Normal 81.0-99.0 [facility] Comment on above: Performed By: #### C BC #### [facility] [address] [place] [address] Dr. Laurel Buckner MONO # 0.6 103/ul Normal 0.3-0.8 [facility] Comment on above: Performed By: #### C BC #### [facility] [address] [place] [address] Dr. Laurel Buckner Monocytes/100 WBC (Bld) 8.4 % Normal 1.7-12.0 [facility] Comment on above: Performed By: #### C BC #### [facility] [address] [place] [address] [address] Laurel Buckner NEUT # 4.0 103/ul Normal 1.4-6.5 [facility] Comment on above: Performed By: #### C BC #### [facility] [address] [place] [address] [address] Laurel Buckner Neutrophils/100 WBC (Bld) 58.9 % Normal 43.0-75.0 [facility] Comment on above: Performed By: #### C BC #### [facility] [address] [place] [address] Dr. Laurel Buckner Platelet mean volume (Bld) [Entitic vol] 10.1 fL Normal 9.5-13.5 [facility] Comment on above: Performed By: #### C BC #### [facility] [address] [place] [address] Dr. Laurel Buckner PLT 279 103/ul Normal 150-450 [facility] Comment on above: Result Comment: smea r reviewed Performed By: #### C BC #### [facility] [address] [place] [address] Dr. Laurel Buckner RBC 5.01 106/ul Normal 4.20-5.40 [facility] Comment on above: Performed By: #### C BC #### [facility] [address] [place] [address] Dr. Laurel Buckner WBC 6.8 103/ul Normal 4.0-11.0 [facility] Comment on above: Performed By: #### C BC #### [facility] [address] [place] [address] Dr. Laurel Buckner GLYCOHEMOGLOBIN A1Con 2021 ADA RECOMMENDATION SEE BELOW Normal [facility] Comment on above: Result Comment: ADA RECOMMENDED LIMIT 4.0 - 6.0 ADA THERAPEUTIC TARGET < 7.0 ACTION SUGGESTED > 7.0 Performed By: #### A 1C #### [facility] [address] [place] [address] Dr. Laurel Buckner Glucose [Mass/Vol] 97 mg/dL Normal [facility] Comment on above: Performed By: #### A 1C #### [facility] [address] [place] [address] [address] Laurel Buckner HbA1c (Bld) [Mass fraction] 5.0 % Normal 4.5-6.2 [facility] Comment on above: Performed By: #### A 1C #### [facility] [address] [place] [address] [address] Laurel Buckner LIPID PROFILEon 05-15-2022 CHOL-HDL RATIO NORM SEE BELOW Normal [facility] Comment on above: Result Comment: 3.3 - 4.4 LOW RISK 4.4 - 7.1 AVERAGE RISK 7.1 - 11.0 MODERATE RISK >11.0 HIGH RISK Performed By: #### L IPID, TSH, CMP #### [facility] [address] [place] [address] [address] Laurel Buckner Cholesterol [Mass/Vol] 279 mg/dL Critically high <=200 [facility] Comment on above: Performed By: #### L IPID, TSH, CMP #### [facility] [address] [place] [address] [address] Laurel Buckner Cholesterol in HDL [Mass/Vol] 76 mg/dL Critically high 40-60 [facility] Comment on above: Performed By: #### L IPID, TSH, CMP #### [facility] [address] [place] [address] [address] Laurel Buckner Cholesterol in LDL [Mass/Vol] 162.8 mg/dL Normal [facility] Comment on above: Performed By: #### L IPID, TSH, CMP #### [facility] [address] [place] [address] [address] Laurel Buckner Cholesterol.total/Ch olesterol in HDL [Mass ratio] 3.7 {ratio} Normal [facility] Comment on above: Performed By: #### L IPID, TSH, CMP #### [facility] [address] [place] [address] [address] Laurel Buckner HDL NORMAL > or = 60 mg/dl - LO W CARDIOVASCULAR RISK <40 mg/dl - HIGH CARDIOVASCULAR RISK Normal [facility] Comment on above: Performed By: #### L IPID, TSH, CMP #### [facility] [address] [place] [address] [address] Laurel Buckner LDL CALC NORMAL SEE BELOW Normal [facility] Comment on above: Result Comment: <100 mg/dl OPTIMAL 100 - 129 mg/dl NEAR OR ABOVE OPTIMAL 130 - 159 mg/dl BORDERLINE HIGH 160 - 189 mg/dl HIGH >190 mg/dl VERY HIGH Performed By: #### L IPID, TSH, CMP #### [facility] [address] [place] [address] [address] Laurel Buckner Triglyceride [Mass/Vol] 201 mg/dL Critically high <=150 [facility] Comment on above: Performed By: #### L IPID, TSH, CMP #### [facility] [address] [place] [address] [address] Laurel Buckner VLDL CALC 40.2 mg/dL Normal [facility] Comment on above: Performed By: #### L IPID, TSH, CMP #### [facility] [address] [place] [address] Dr. Laurel Buckner PROF 14(COMP METB)on 022 Albumin [Mass/Vol] 3.6 g/dL Normal 3.4-5.0 [facility] Comment on above: Performed By: #### L IPID, TSH, CMP #### [facility] [address] [place] [address] [address] Laurel Buckner Albumin/Globulin [Mass ratio] 0.9 {ratio} Normal [facility] Comment on above: Performed By: #### L IPID, TSH, CMP #### [facility] [address] [place] [address] [address] Laurel Buckner ALP [Catalytic activity/Vol] 110 U/L Normal 46-116 [facility] Comment on above: Performed By: #### L IPID, TSH, CMP #### [facility] [address] [place] [address] [address] Laurel Buckner ALT [Catalytic activity/Vol] 22 U/L Normal 14-59 [facility] Comment on above: Performed By: #### L IPID, TSH, CMP #### [facility] [address] [place] [address] [address] Laurel Buckner Anion gap [Moles/Vol] 10.8 mmol/L Normal [facility] Comment on above: Performed By: #### L IPID, TSH, CMP #### [facility] [address] [place] [address] [address] Laurel Buckner AST [Catalytic activity/Vol] 11 U/L Critically low 15-37 [facility] Comment on above: Performed By: #### L IPID, TSH, CMP #### [facility] [address] [place] [address] [address] Laurel Buckner Bilirubin [Mass/Vol] 0.3 mg/dL Normal 0.2-1.0 [facility] Comment on above: Performed By: #### L IPID, TSH, CMP #### [facility] [address] [place] [address] Dr. Laurel Buckner Calcium [Mass/Vol] 9.1 mg/dL Normal 8.5-10.1 [facility] Comment on above: Performed By: #### L IPID, TSH, CMP #### [facility] [address] [place] [address] Dr. Laurel Buckner Chloride [Moles/Vol] 103 mmol/L Normal 98-107 [facility] Comment on above: Performed By: #### L IPID, TSH, CMP #### [facility] [address] [address] [address] Laurel Bucknre CO2 [Moles/Vol] 27.9 mmol/L Normal 21.0-32.0 [facility] Comment on above: Performed By: #### L IPID, TSH, CMP #### [facility] [address] [place] [address] Dr. Laurel Buckner Creatinine [Mass/Vol] 0.96 mg/dL Normal 0.55-1.02 [facility] Comment on above: Performed By: #### L IPID, TSH, CMP #### [facility] [address] [place] [address] Dr. Laurel Buckner EGFR-AF NORTHER[place] IRISH >60 Normal >=60 [facility] Comment on above: Performed By: #### L IPID, TSH, CMP #### [facility] [address] [place] [address] Dr. Laurel Buckner EGFR-NON AF [place]THER[place] 59 mL/min/1.73m2 Critically low >=60 [facility] Comment on above: Performed By: #### L IPID, TSH, CMP #### [facility] [address] [place] [address] Dr. Laurel Buckner Globulin (S) [Mass/Vol] 3.9 g/dL Normal [facility] Comment on above: Performed By: #### L IPID, TSH, CMP #### [facility] [address] [place] [address] Dr. Laurel Buckner Glucose [Mass/Vol] 90 mg/dL Normal 74-106 [facility] [place] Comment on above: Performed By: #### L IPID, TSH, CMP #### [facility] [address] [place] [address] Dr. Laurel Buckner Potassium [Moles/Vol] 3.7 mmol/L Normal 3.5-5.1 [facility] Comment on above: Performed By: #### L IPID, TSH, CMP #### [facility] [address] [place] [address] Dr. Laurel Buckner Protein [Mass/Vol] 7.5 g/dL Normal 6.4-8.2 [facility] [place] Comment on above: Performed By: #### L IPID, TSH, CMP #### [facility] [address] [place] [address] Dr. Laurel Buckner Sodium [Moles/Vol] 138 mmol/L Normal 136-145 [facility] [place] Comment on above: Performed By: #### L IPID, TSH, CMP #### [facility] [address] [place] [address] Dr. Laurel Buckner Urea nitrogen [Mass/Vol] 16.0 mg/dL Normal 7.0-18.0 [facility] Comment on above: Performed By: #### L IPID, TSH, CMP #### [facility] [address] [place], [place] [address] Dr. Laurel Buckner Urea nitrogen/Creatinine [Mass ratio] 16.7 mg/mg Normal [facility] Comment on above: Performed By: #### L IPID, TSH, CMP #### [facility] [address] [place], [place] [address] Dr. Laurel Buckner TSHon 05-15-2022 TSH 3.094 uIU/mL Normal 0.358-3.740 [facility] Comment on above: Performed By: #### L IPID, TSH, CMP #### [facility] [address] [place], [place] [address] Dr. Laurel Buckner Vital Signs Date Time Vital Sign Value Performing Clinician Facility 01-30-2024 09:36-0400 Body height 170.18 cm PHYSICIAN NO [facility] 01-30-2024 09:36-0400 Body mass index (BMI) [Ratio] 26.7 kg/m2 PHYSICIAN NO [facility] 01-30-2024 09:36-0400 Body weight 77.56 kg PHYSICIAN NO [facility] 01-30-2024 09:36-0400 Diastolic blood pressure 80 mm[Hg] PHYSICIAN NO [facility] 01-30-2024 09:36-0400 Heart rate 108 /min PHYSICIAN NO [facility] 01-30-2024 09:36-0400 Systolic blood pressure 114 mm[Hg] PHYSICIAN NO [facility] 11-19-2023 13:56-0400 Blood Pressure Location Dieter BUSTOSL [facility] 11-19-2023 13:56-0400 Diastolic blood pressure 92 mm[Hg] Dieter BUSTOSL [facility] [place] 11-19-2023 13:56-0400 Heart rate 72 /min Dieter BUSTOSL [facility] 11-19-2023 13:56-0400 Respiratory rate 16 /min Dieter BUSTOSL [facility] 11-19-2023 13:56-0400 Systolic blood pressure 132 mm[Hg] Dieter BUSTOSJo [facility] [place] 11-12-2023 10:20-0400 Body height 170.18 cm PHYSICIAN NO [facility] 11-12-2023 10:20-0400 Body mass index (BMI) [Ratio] 28 kg/m2 PHYSICIAN NO [facility] 11-12-2023 10:20-0400 Body weight 81.36 kg PHYSICIAN NO [facility] 11-12-2023 10:20-0400 Diastolic blood pressure 77 mm[Hg] PHYSICIAN NO [facility] 11-12-2023 10:20-0400 Heart rate 124 /min PHYSICIAN NO [facility] 11-12-2023 10:20-0400 Systolic blood pressure 124 mm[Hg] PHYSICIAN NO [facility] 10-22-2023 09:23-0400 Body height 170.18 cm PHYSICIAN NO [facility] 10-22-2023 09:23-0400 Body mass index (BMI) [Ratio] 29.1 kg/m2 PHYSICIAN NO [facility] 10-22-2023 09:23-0400 Body weight 84.36 kg PHYSICIAN NO [facility] 10-22-2023 09:23-0400 Diastolic blood pressure 85 mm[Hg] PHYSICIAN NO [facility] 10-22-2023 09:23-0400 Heart rate 106 /min PHYSICIAN NO [facility] 10-22-2023 09:23-0400 Systolic blood pressure 140 mm[Hg] PHYSICIAN NO [facility] 05-29-2023 14:00-0400 Body height 170.18 cm Helio Barry Other [facility] Other 05-29-2023 14:00-0400 Body mass index (BMI) [Ratio] 29.44 kg/m2 Helio Barry Other [facility] Other 05-29-2023 14:00-0400 Body weight 85.28 kg Helio Barry Other [facility] Other 05-05-2023 08:30-0400 Body height 170.18 cm Trista Barry Other [facility] Other 05-05-2023 08:30-0400 Body mass index (BMI) [Ratio] 29.44 kg/m2 Trista Barry Other [facility] Other 05-05-2023 08:30-0400 Body weight 85.28 kg Trista Barry Other [facility] Other 05-05-2023 08:30-0400 Diastolic blood pressure 82 mm[Hg] Trista Barry Other [facility] Other 05-05-2023 08:30-0400 Systolic blood pressure 128 mm[Hg] Trista Barry Other [facility] Other 04-01-2023 10:00-0400 Body height 170.18 cm Trista Barry Other [facility] Other 04-01-2023 10:00-0400 Body mass index (BMI) [Ratio] 29.13 kg/m2 Trista Barry Other [facility] Other 04-01-2023 10:00-0400 Body weight 84.37 kg Trista Barry Other [facility] Other 04-01-2023 10:00-0400 Diastolic blood pressure 86 mm[Hg] Trista Barry Other [facility] Other 04-01-2023 10:00-0400 Systolic blood pressure 148 mm[Hg] Trista Barry Other [facility] Other Encounters Encounter Date Encounter Type Care Provider Facility Start: 05-06-2024 ambulatory BIANKA Macias acility:SERENA Jang Start: 02-26-2024 End: 02-26-2024 ambulatory Beryl Henderson Facility:[facility] Start: 02-26-2024 End: 02-26-2024 Patient encounter procedure Beryl Henderson [facility] Start: 01-30-2024 End: 01-30-2024 ambulatory PHYSICIAN NO [facility] Work Phone: Start: 01-30-2024 End: 01-30-2024 Patient encounter procedure [facility] Work Phone: Start: 01-14-2024 End: 01-14-2024 ambulatory Dieter R NILL Facility: [facility] Start: 01-14-2024 End: 01-14-2024 Patient [facility] Start: 01-13-2024 ambulatory Dieter R NILL Facility : [facility] Start: 12-31-2023 End: 12-31-2023 ambulatory PHYSICIAN NO [facility] Work Phone: Start: 12-31-2023 End: 12-31-2023 Departed Referred PHYSICIAN NO [facility] Start: 12-31-2023 End: 12-31-2023 ambulatory Dieter R NILL Facility:[id number] Start: 12-09-2023 ambulatory PHYSICIAN NO [facility] ility:[facility] Start: 12-09-2023 Registered Recurring PHYSICIAN NO [facility]- [facility] Start: 11-19-2023 End: 11-19-2023 ambulatory Dieter R NILL Facility: [facility] Start: 11-19-2023 End: 11-19-2023 Patient encounter procedure Dieter R NILL General Surgery [facility] Start: 11-18-2023 Non-patient / Non-visit PHYSICIAN [facility] Work Phone: Start: 11-17-2023 ambulatory Beryl Galea Facility:Jie [facility] Start: 11-14-2023 ambulatory Beryl Galea Facility:J[facility] Botello Start: 11-12-2023 End: 11-12-2023 ambulatory PHYSICIAN NO [facility] Work Phone: Start: 11-12-2023 End: 11-12-2023 Patient encounter procedure [facility] Work Phone: Start: 11-04-2023 Registered Recurring PHYSICIAN NO [facility] Start: 10-22-2023 Patient encounter status PHYSICIAN NO [facility] Start: 10-22-2023 End: 10-22-2023 Encounter for general adult medical examination without abnormal findings PHYSICIAN NO [facility] Start: 10-22-2023 End: 10-22-2023 Patient encounter procedure PHYSICIAN [facility] Work Phone: Start: 09-09-2023 Registered Recurring PHYSICIAN NO [facility] Start: 05-30-2023 End: 05-30-2023 ambulatory Helio Barry Other [facility] [employer] Other Start: 05-30-2023 Telephone encounter Helio Barry [facility] Rn Bone Marrow Transplant Start: 05-29-2023 Office outpatient ne w 30 minutes Helio Barry [facility] Start: 05-29-2023 End: 05-29-2023 Patient encounter procedure MD Trista Barry Work Phone: [facility] Work Phone: Start: 05-29-2023 End: 05-29-2023 ambulatory MD Trista Barry Work Phone: [facility] Work Phone: Start: 05-16-2023 End: 05-16-2023 ambulatory Trista Barry Other [facility] Other Start: 05-16-2023 Telephone encounter Trista Barry [facility] Start: 05-05-2023 End: 05-05-2023 ambulatory Trista Barry Other [facility] [place] Other Start: 05-05-2023 Office outpatient vi sit 15 minutes Trista Barry [facility] Start: 04-07-2023 End: 04-07-2023 ambulatory Trista Barry Other [facility] [place] Other Start: 04-07-2023 Telephone encounter Trista Barry [facility] Start: 04-01-2023 End: 04-01-2023 ambulatory Trista Barry Other [facility] [place] Other Start: 04-01-2023 Office outpatient vi sit 15 minutes Trista Barry [facility] Start: 12-27-2022 ambulatory GOLDY GLOVER Facility: [facility]1 Start: 12-23-2022 End: 12-23-2022 ambulatory Goldy Glover Other [facility] [place] Other Start: 12-23-2022 Office outpatient ne w 45 minutes Goldy Glover [facility] Pain Management [facility] [place] Start: 12-06-2022 Telephone encounter Trista Barry [facility] Start: 12-06-2022 End: 12-07-[address] TRISTA BARRY [facility] Other Start: 11-26-2022 End: 11-27-2022 ambulatory REGULO OWEN Facility:[facility] Start: 11-14-2022 End: 11-15-[address] TRISTA BARRY Facility:[facility] Start: 05-17-2022 Encounter for genera l adult medical examination without abnormal findings DR TRISTA BARRY [facility] Start: 05-15-2022 End: 05-16-[address] TRISTA BARRY Facility:[facility] Start: 05-15-2022 End: 05-16-2022 Encounter for general adult medical examination without abnormal findings DR TRISTA BARRY Facility: Start: 05-14-2022 Adult health examination Trista Barry Other [facility] [place] Other Start: 04-18-2022 End: 04-18-2022 ambulatory Gurpreet Marily Other [facility] [place] Other Start: 04-18-2022 Telephone encounter Gurpreet Marily [facility] Start: 02-27-2022 End: 02-27-2022 ambulatory Gurpreet Marily Other [facility] [place] Other Start: 02-27-2022 Telephone encounter Gurpreet Marily [facility] Marrow Trans[facility] Start: 02-05-2022 ambulatory GURPREET MARILY Facility: 1 Start: 12-13-2021 End: 12-13-2021 ambulatory Gurpreet Marily Other [facility] [place] Other Start: 12-13-2021 Telephone encounter Gurpreet Marily [facility] Start: 09-19-2021 End: 09-19-2021 ambulatory Gurpreet Marily Other [facility] [place] Other Start: 09-19-2021 Telephone encounter Gurpreet Marily [facility] Start: 09-05-2021 End: 09-05-2021 ambulatory Gurpreet Marily Other [facility] [place] Other Start: 09-05-2021 Telephone encounter Gurpreet Marily [...] Activity Detail Author Start: 11-12-2023 Patient referral [facility] Work Phone: MG Breast - bilatera l Diagnostic [facility] Patient Education Yearly Physica l for Adults [facility] Work Phone: Patient referral [facility] Work Phone: Immunizations Immunization Date Immunization Notes Care Provider Ed bran 10-12-2022 influenza virus vaccine, unspecified formulation Dieter BUSTOSJo [facility] General Surgery [place] 10-12-2022 influenza, injectabl e, quadrivalent, preservative free Trista Barry Other [facility] 02-19-2022 diphtheria, tetanus toxoids and acellular pertussis vaccine, unspecified formulation Trista Barry Other [facility] 02-19-2022 tetanus toxoid, reduced diphtheria toxoid, and acellular pertussis vaccine, adsorbed Trista Barry Other [facility] 08-07-2021 COVID-19 Vaccine Moderna - Documentation Purposes Only Trista Barry Other [facility] 05-28-2021 influenza virus vaccine, split virus (incl. purified surface antigen) Trista Barry Other [facility] [place] Other 05-28-2021 influenza virus vaccine, unspecified formulation PHYSICIAN NO FAMILY [facility] 12-09-2020 COVID-19 Vaccine Moderna - Documentation Purposes Only Trista Barry Other [facility] 11-11-2020 COVID-19 Vaccine Moderna - Documentation Purposes Only Trista Barry Other [facility] Payers Date Payer Category Payer Unknown [id number] 2.16.84 [id number] 1960 Unknown [id number] 2.16.84 [id number] 1960 Unknown [id number] 2.16.84 [id number] 1962 Unknown [id number] 2.16.84 [id number] 1962 Unknown [id number] 2.16.84 [id number] 1962 Unknown [id number] 2.16.84 [id number] 1962 Unknown [id number] 2.16.8 [id number] 1962 Unknown [id number] 2.16.8 [id number] 1962 Unknown [id number] 2.16.8 [id number] 1962 Unknown [id number] 2.16.8 [id number] 1962 Unknown [id number] 2.16.8 [id number] 1962 Unknown [id number] 2.16.8 [id number] 1962 Unknown [id number] 2.16.8 [id number] 1959 Private Health Insurance [id number] 1959 Private Health Insurance [id number] Self-pay [facility] [id number] Private Health Insurance [id number] Unknown [id number] 2.16.8 [id number] Unknown [id number] 2.16.8 [id number] Social History Date Type Detail Facility Sex Assigned At [facility] Start: 1960 Sex Assigned At Female F [facility] Start: 05-29-2023 End: 11-19-2023 Tobacco smoking status NHIS Never smoked tobacco (finding) [facility] Tobacco smoking status Never Gener al Surgery [facility] Functional Status Date Assessment Result Facility 11-19-2023 Functional Status N/A General Guy [facility]gery [place] Clinical Notes 12-13-2021 to 11-19-2023 Note Date [...] Recorded SARS-CoV-2 (COVID-19) mRNA-1273 vaccine 11/11/2020 Recorded [facility] Comment on above: Result Comment: Elec [...] may be able to offer some advice. [facility] Other 09-25-2023 Evaluation note* Encounter Date Diagnosis Assessment Notes Treatment Notes Treatment Clinical Notes Apr, Right lumbar radiculopathy (ICD-10 - M54.16) Presently in PT - discharged on 05/02. Requests MRI and referral. [facility] Other 08-22-2023 Evaluation note* Encounter Date Diagnosis Assessment Notes Treatment Notes Treatment Clinical Notes Mar, Right hip pain (ICD-10 - M25.551) PT paper given to pt. Handout for home stretches given as well. Tramadol to help her sleep. She understands it is a controlled substance and could be sedating. [facility] [place] Other 05-15-2023 Evaluation note* Encounter Date Diagnosis [...] Above note written by Morris Flor MA, Varnishing Machine Operator. Edited and approved by Dr. Goldy Glover [...] negative findings were considered in medical decision-making. [facility] Other 04-28-2023 Evaluation note* Encounter Date Diagnosis Assessment Notes Treatment Notes Treatment Clinical Notes Nov, Lumbar pain (ICD-10 - M54.50) [facility] Other 07-20-2022 Evaluation note* Encounter Date Diagnosis Assessment Notes Treatment Notes Treatment Clinical Notes Feb, Bipolar 1 disorder, depressed (ICD-10 - F31.9) [facility] Other 05-05-2022 Evaluation note* Encounter Date Diagnosis Assessment Notes Treatment Notes Treatment Clinical Notes December, Bipolar 1 disorder, depressed (ICD-10 - F31.9) [facility] Other Evaluation + Plan note No data available for this section General Surgery [place] Evaluation noteNo InformationNort Zawatt Other Evaluation noteNo assessment information available [facility] Work Phone: Evaluation note* Diagnosis Onset Date Resolution Status Acne acute Breast mass, right acute Wellness examination acute Abnormal ultrasound of breast acute [facility] Work Phone: Evaluation note* Diagnosis Onset Date Resolution Status Abnormal ultrasound of breast acute [facility] Work Phone: History general Narrative - Reported* Type Description Date Medical History bipolar disorder Medical History anxiety disorder Medical History high blood pressure Surgical History 2 boul ligation 2000 Surgical History stepidectomy 2009 Surgical History sinus surgery 2015 Hospitalization History See surgical hx Hospitalization History [facility] Other Hiscddf general Narrative - Reported* Type Description Date Medical History bipolar disorder Medical History anxiety disorder Medical History high blood pressure Medical History Fatigue Medical History High risk medication use Surgical History 2 boul ligation 2000 Surgical History stepidectomy 2009 Surgical History sinus surgery 2015 Surgical History LUBAL LIGATION Hospitalization History See surgical hx Hospitalization History [facility] Other Hisuyqr general Narrative - Reported* Type Description Date [...] Hospitalization History See surgical hx Hospitalization History [facility] Other Hospital Discharge instructionsAmbulatory Orders* Referral to General Surgery Time Frame: 11/12/23, Location: None [facility] Work Phone: Hospital Discharge instructions No data available for this section General Surgery [place] Progress note No data available for this section General Surgery [place] Reason for Referral Reason piriformis pain Diagnosis 1 Adolescent idiopathi c scoliosis of lumbosacral spine (M41.127) Referral Organization [facility] Referring Provider First Name Helio Referring Provider Last Name Asha Referring Provider Specialty Neurologica l Surgery Referred Organization [facility] Ortho pedics Referred Provider Danny Solares Referred Address [address] [facility] [place],[address] Referred Provider Specialty Orthopaedic Surgery Referral Priority Routine Reason Requests Dr. Helio qureshi - MRI pending. Went to [facility] and had xrays on 05/05. Diagnosis 1 Right lumbar radicul opathy (M54.16) Referral Organization [facility] Referring Provider First Name Trista Referring Provider Last Name Asha Referring Provider Specialty Family Medi cine Referred Organization [facility] Neurosurgery [place] Referred Address [address] [place], [place],[address] Referred Provider Specialty Neurological Surgery Referral Priority Routine Reason No preference on off ice - Lumbar pain - recent OV and xray - thanks Diagnosis 1 Lumbar pain (M54.50) Referral Organization [facility] lauren Referring Provider First Name Trista Referring [...] and content) DATE CREATED AUTHOR 12/25/2022 [facility] DATE CREATED AUTHOR AUTHOR'S ORGANIZ ATION 01/13/2024 [facility] DATE CREATED AUTHOR AUTHOR'S ORGANIZ [...] End: December 31, 2023 Dieter Wasserman MD [facility] Attending Provider Active Start: December 31, 2023 [...] BE BASED ON THE PRIMARY CLINICAL RECORDS. [facility] [employer] provides no warranty or guarantee of the accuracy or completeness of information in this document.
== END 2024-04-21 20:09 | disposition home or self-care (01) ==
LOC: LAB 20:08
PROVIDERS: PCP Family Medicine; Visit Provider Physician Assistant
DX: Z01.419 Encounter for gynecological examination (general) (routine) without abnormal findings (principal)
CPT/HCPCS: 87624; 88175

== ENCOUNTER 2024-05-04 10:53 | Outpatient (OUT) | payer OTHER, SELFPAY ==
[2024-05-05 05:08] LABS: HIV Ab/p24 Ag Screen Non Reactive (Non Reactive)
[2024-05-05 06:10] LABS: HBsAg Screen Negative (Negative)
[2024-05-05 13:10] LABS: Rapid Plasma Reagin, Quant Non Reactive titer (NonRea<1:1)
== END 2024-05-04 10:54 | disposition home or self-care (01) ==
LOC: LAB 10:54
PROVIDERS: PCP Family Medicine; Visit Provider Physician Assistant
DX: Z20.2 Contact with and (suspected) exposure to infections with a predominantly sexual mode of transmission (principal)
CPT/HCPCS: 36415; 86592; 87340; 87389

== ENCOUNTER 2024-05-26 08:23 | Outpatient (OUT) | payer OTHER, SELFPAY ==
--- OUTSIDE RECORDS SUMMARY | 2024-05-26 08:27 | XMS_ITS | CCD ---
Author Organization [facility] CliniSyde Care Team Providers Care Hotel Clerk Name Role Phone Paresh Calixto Unavailable Seb Barry Unavailable Goldy Glover Unavailable ASHA, DR SEB Reyes Attending Unavailable ASHA, DR SEB Reyes Consulting Unavailable BARRY, DR SEB Reyes Admitting Unavailable BARRY, DR SEB Reyes Admitting Unavailable WEST, DR MAKEDA Schneider Consulting Unavailable BARRY, DR SEB Reyes Attending Unavailable BARRY, DR SEB Reyes Consulting Unavailable LEXIE, REGULO Admitting Unavailable LEXIE, REGULO Attending Unavailable REGULO OWEN Consulting Unavailable BARRY, DR SEB Reyes Admitting Unavailable WEST, DR MAKEDA Schneider Consulting Unavailable BARRY, DR SEB Reyes Attending Unavailable BARRY, DR SEB Reyes Primary Care Unavailable BARRY, DR SEB Reyes Consulting Unavailable GOLDY GLOVER Admitting Unavailable GOLDY GLOVER Attending Unavailable ASHA, DR SEB Reyes Primary Care Unavailable PARESH CALIXTO Attending Unavailable PARESH CALIXTO Admitting Unavailable MD Helio Barry Attending Provider MD Seb Barry Primary Care Provider [phone] Helio Barry Unavailable NO FAMILY, PHYSICIAN Primary Care Provider Unava MD Pan Gutierrez Attending Provider [phone] SEB BARRY Primary Care Physician NO FAMILY, PHYSICIAN Primary Care Provider Unava MD Pan Gutierrez Attending Provider [phone] MD Seb Barry Primary Care Provider MD Dieter Wasserman Attending Provider [phone] NO FAMILY, PHYSICIAN Primary Care Provider Unava MD Pan Gutierrez Attending Provider FAIZA WELLER Attending Unavailable Adamaris Hill Attending Unavailable NON STAFF Primary Care Unavailable Adamaris Hill Admitting Unavailable Helio Barry Admitting Unavailable Helio Barry Attending Unavailable Seb Barry Primary Care Unavailable NO FAMILY, PHYSICIAN Primary Care Unavailable Pan Sanders Admitting Unavailab le Pan Sanders Attending Unavailab le Seb Barry Primary Care Unavailable NillDieter Admitting Unavailable Nildavi, Dieter Masters Attending Unavailable NO FAMILY, PHYSICIAN Primary Care Provider MD Pan Carmona Attending Provider [phone] KAUSHAL Hill Attending Provider Beryl Henderson Attending Unavailable NILL, Dieter Masters Attending Unavailable NILL, Dieter R Attending Unavailable NILL, Dieter R Attending Unavailable NILL, Dieter R Attending Unavailable BIANKA FLORES Attending Unavailab le Allergies Allergy Classification Reported Allergen(s) Allergy Type Date of Onset Reaction(s) Facility (10 sources) Penicillins Drug allergy 4 [facility] (17 sources) metFORMIN; Translations: [metformin] Drug Allergy 4 Weal (disorder) [facility] (8 sources) Substance with penicillin structure and antibacterial mechanism of action (substance) Drug allergy [facility] Other (4 sources) Penicillin; Translations: [penicillin] Drug Allergy Weal (disorder) [facility] (1 source) metFORMIN Drug Allergy 4 [facility] Repository (1 source) Penicillins Drug allergy (disorder) 4 [facility] Repository Medications Current Medications Medication Drug Class(es) Dates Sig (Normalized) Sig (Original) aspirin 81 mg chewable tablet (7 sources) Platelet Aggregation Inhibitor, Nonsteroidal Anti-inflammatory Drug take 1 tablet by mouth every twenty-four hours Aspirin 81 MG 1 tablet Orally Once a day PRN Active Calcium Carbonate (10 sources) Start: 11-17-2023 take 1 tablet by [...] with meals Orally Twice a day Active estradiol 0.1 mg/ml vaginal cream (2 sources) Estrogen Start: 02-11-2024 Estradiol (Est race) 0.01 % (0.1 mg/gram) cream Active 1 GM VAGINAL Twice a Week 42.5 February 11, 2024 12:00am Folate (2 sources) Folate Active lithium carbonate 300 mg oral tablet (20 sources) Start: 11-17-2023 take 3 tablets by mouth at bedtime lithium 300 mg oral tablet 900 mg = 3 tab(s), Oral, Bedtime, Refills(s) 0 Start Date: 11/17/23 Status: Ordered Start: 10-22-2023 take 3 tablets by mo uth three times daily at bedtime [place] Carbonate Active MG PO Three times daily October 22, 2023 9:33am FreeTextSi tablets Orally at HS; Note: Source Status: [id number] mg as needed; Refills: 0; Provider: Asha Cadet ( ) Start: 10-22-2023 End: 10-22-2023 take 3 tablets by mouth at bedtime [place] Carbonate Discontinued MG PO October 22, 2023 12:00am October 22, 2023 9:34am FreeTextSi tablets Orally at HS; Note: Source Status: [id number] mg as needed; Refills: 0; Provider: Asha Cadet ( ) take 3 tablets by mo uth at bedtime [place] Carbonate ER 300 MG 3 tablets Orally at HS for 90 days 900-1200 mg as needed Active take 4 tablets by mo uth every twenty-four hours [place] Carbonate ER 300 MG 4 tablets Orally [...] omeprazole 20 mg delayed release oral capsule (20 sources) Proton Pump Inhibitor Start: 10-22-2023 take [...] mg / trimethoprim 160 mg oral tablet (4 sources) Dihydrofolate Reductase Inhibitor Antibacterial, Sulfonamide Antimicrobial Start: take 1 tablet by mouth twice daily Sulfamethoxazole-T rimethoprim (Bactrim Ds) 800-160 mg tablet Active 1 TAB PO Twice daily 14 May 19, 2024 12:00am Start: 11-26-2022 take 1 tablet by feliberto th every twelve hours Bactrim DS 800-160 MG 1 tablet Orally Twice a day for 10 day(s) Nov, Active tretinoin 1 mg/ml topical cream (8 sources) Retinoid Start: 11-17-2023 tretinoin Top 0.1% Crm 1 susan, Topical, Once a day (at bedtime), Refill(s) 0 Start Date: 11/17/23 Status: Ordered Start: 10-22-2023 Tretinoin Acti ve 1 APPLIC TOPICAL 6 TIMES PER WEEK October 22, 2023 12:00am venlafaxine (20 sources) Serotonin and Norepinephrine Reuptake Inhibitor Start: [...] Not-Taking cyclobenzaprine hydrochloride 10 mg oral tablet (9 sources) Muscle Relaxant Start: 10-22-2023 End: 10-22-2023 take 1 tablet by mouth three times daily as needed Cyclobenzaprine Discontinued 10 MG PO Three times daily October 22, 2023 12:00am October 22, 2023 9:32am FreeTextSi tablet 3 times a day prn; Note: Source Status: Taking; Provider: Asha Cadet ( ) Cyclobenzaprine HCl 10 MG 1 tablet 3 times a day prn Active Iron Fum,Up-Zordo-Mnszf,C No.9 (Iron Folate Plus) 125 mg iron- 1 mg capsule (5 sources) Start: 10-22-2023 End: 10-22-2023 take 1 capsule by mouth once daily at mealtime Iron Fum,Md-Hzfco-Hwwda,C No.9 (Iron Folate Plus) 125 mg iron- [...] Not-Taking traMADol hydrochloride 50 mg oral tablet (11 sources) Opioid Agonist Start: 10-22-2023 End: 10-22-2023 take 1 tablet by mouth once daily at bedtime as needed Tramadol Discontinued 50 MG PO Daily October 22, 2023 12:00am October 22, 2023 9:33am FreeTextSi tablet as needed Orally Once a day (QHS); Note: Source Status: Taking; Refills: 0; Provider: Asha Reyes Start: 04-01-2023 take 1 tablet by felibetro once daily at bedtime as needed traMADol [...] Translations: [Essential hypertension] Onset: 2 11-17-2023 Chronic Genitourinary symptoms and ill-defined conditions (2 sources) Urinary incontinence; Translations: [Unspecified urinary incontinence] 02-11-2024 Chronic Genitourinary symptoms and ill-defined conditions (3 sources) Dysuria; Translations: [Dysuria] Onset: 4 05-19-2024 Episodic Malaise and fatigue (11 sources) Fatigue; Translations: [Other fatigue] Onset: 2 Episodic Menopausal disorders (2 sources) Menopausal and postmenopausal disorders; Translations: [Unspecified menopausal and perimenopausal disorder] Chronic Mood disorders (20 sources) Bipolar disorder; Translations: [Bipolar disorder, unspecified] Onset: 2 Resolved: 4 Chronic Nonmalignant breast conditions (11 sources) Breast lump; Translations: [Unspecified lump in the right breast, unspecified quadrant] Onset: 4 10-22-2023 Episodic Other acquired deformities (3 sources) Scoliosis deformity of spine 11-17-2023 Chronic Other aftercare (8 sources) H/O: high risk medication; Translations: [Other termite treater (current) drug therapy] Episodic Other aftercare (5 sources) Other penitentiary (current) drug therapy; Translations: [OTH SURGICAL SERVICES TECH CURRENT DRUG THERAPY] Onset: 2 Episodic Other aftercare (2 sources) Long-term current use of drug therapy; Translations: [Other penitentiary (current) drug therapy] Episodic Other and ill-defined [...] reading, without diagnosis of hypertension] Episodic Other female genital disorders (2 sources) Vaginal dryness; Translations: [Other specified noninflammatory disorders of vagina] 02-11-2024 Episodic Other nervous system disorders (7 sources) [...] conditions (not mental disorders or infectious disease) (12 sources) Encounter for screening mammogram for malignant neoplasm of breast; Translations: [Ultrasonography of breast abnormal] Onset: 3 Episodic Other skin disorders (8 sources) Acne; Translations: [Acne, unspecified] 10-22-2023 Episodic [...] Translations: [Low back pain, unspecified] Onset: 3 Urinary tract infections (4 sources) Urinary tract infectious disease; Translations: [Urinary tract infection, site not specified] 05-19-2024 Episodic Past or Other Problems Problem Classification Problem Date Documented Da te Episodic/Chronic Unclassified (1 source) Lumbar pain M54.50 Unclassified (1 source) Other low back pain M54.59 Unclassified (1 source) LOW BACK PAIN, UNSPECIFIED; Translations: [LOW BACK PAIN, UNSPECIFIED] Onset: 12-06-2022 Results Test Name Value Interpretation Reference Range Facility Urine Cultureon 05-19-2024 Bacteria identified Cx Nom (U) ORGANISM: Klebsiella pneumoniae (O:KLEPNE) [place] Count 75,000 Aerobic ILANA Charge (NMIC56) --- SUSCEPTIBILITY -- ORGANISM: O:KLEPNE ANTIBIOTIC INTERPRETATION ILANA Amikacin S <16 Amoxacillin/K Clavulanate S <8 Ampicillin/Sulbactam S <4 Aztreonam S <4 Cefazolin S <2 Cefepime S <2 Ceftazidime S <1 Ceftazidime/Avibactam S <4 Ceftolozane/Tazobactam S <2 Ceftriaxone S <1 Cefuroxime S <4 Ciprofloxacin S <0.25 Ertapenem S <0.5 Gentamicin S <2 Levofloxacin S <0.5 Meropenem S <1 Meropenem/Vaborbactam S <2 Nitrofurantoin S <32 Piperacillin/Tazobacta m S <8 Tetracycline S <4 Tigecycline S <2 Tobramycin S <2 Trimethoprim/Sulfameth oxazole S <0.5 S = SUSCEPTIBLE I = INTERMEDIATE R = RESISTANT BLANK = DATA NOT AVAILABLE, OR DRUG NOT ADVISABLE OR TESTED R* = RESISTANCE DUE TO EXTENDED SPECTRUM BETA-LACTAMASES ESBL = EXTENDED SPECTRUM BETA-LACTAMASE TFG = THYMIDINE-DEPENDENT STRAIN MYRNA = BETA-LACTAMASE POSITIVE IB = INDUCIBLE BETA-LACTAMASE. APPEARS IN PLACE OF 'S' WITH SPECIES KNOWN TO POSSESS INDUCIBLE BETA-LACTAMASES. POTENTIALLY THEY MAY BECOME RESISTANT TO ALL B-LACTAM DRUGS. PERFORMED BY: [place] [address] PATHOLOGIST PROFESSOR OF SPANISH ALEXEI Haji [facility] Comment on above: Performed By: #### C UU #### [address] HBV surface Ag IA Qlon 05-04 Hepatitis B Surface Antigen Negative Negative [facility] Comment on above: Performed at: [facility] [place], [place] [id number] Director: Reji Williamson PhD, Phone: [phone] Performed at: [employer] [place], [place] [id number] Director: Reji Williamson PhD, Phone: [phone] HIV 1 and HIV-2 antibody ass ay with HIV-1 p24 antigen detectionon 05-04-2024 HIV 1+2 Ab+HIV1 p24 Ag IA Ql Non-Reactive Non Reactive [facility] Comment on above: HIV-1/HIV-2 antibodi es and HIV-1 p24 antigen were NOTdetected. There is no laboratory evidence of HIV infection.HIV NegativePerformed at: [employer] [employer] [place], [place] [id number] Director: Reji Williamson PhD, Phone: [phone] No Panel Informationon 05-04 RPR Quantitative Confirmation Non Reactive titer NonRea<1:1 [facility] Comment on above: Please Note: This te st does not meet current guidelines forscreening and diagnosis of syphilis. This test isintended for following treatment response in patients beingtreated for syphilis infection. To screen for syphilisinfection, a reflex cascade that includes both RPR and atreponema-specific assay should be utilized, such asTreponema pallidum (Syphilis) Screening [place] (340621) orRapid Plasma Reagin (RPR) Test With Reflex to QuantitativeRPR and Confirmatory Treponema pallidum Antibodies(973979).Performed at: [employer] [place], [place] [id number] Director: Reji Williamson PhD, Phone: [phone] Human papilloma virus 16+18+ 31+33+35+39+45+51+52+56+58+59+66+68 DNA [Presence] in [place] 04-21-2024 HPV 16+18+31+33+35+39+45 +51+52+56+58+59+66+6 8 DNA Probe+sig amp Ql (Cvx) Negative Negative [facility] Comment on above: This nucleic acid am plification test detects fourteen high- risk HPV types (16,18,31,33,35,39,45,51,52,56,58,59,66,68)without differentiation.Performed at: = - [facility] [id number] Director: Karena Shane MD, Phone: [phone] at: [facility] [id number] Director: Karena Shane MD, Phone: [phone] No Panel Informationon 04-21 HPV High Risk Other Comment Note . [facility] Comment on above: TESTS RESULT FLAG UN ITS REF RANGE LAB DI AGNOSIS: 02 NEGATIVE FOR INTRAEPITHELIAL LESION OR MALIGNANCY.Specimen adequacy: 02 Satisfactory for evaluation. No endocervical component is identified.Performed by: 02 Ernestine Pozo, Rooming House Keeper (ASCP). 02Note: Note 02 The Pap smear is a screening test designed to aid in the detection of premalignant and malignant conditions of the uterine cervix. It is not a diagnostic procedure and should not be used as the sole means of detecting cervical cancer. Both false-positive and false-negative reports do occur.Test Methodology: Note 02 This liquid based ThinPrep(R) pap test was screened with the use of an image guided system.HPV Genotype Reflex Note 02 Criteria not met, HPV Genotype not performed. ----- FLAG LEGEND: L-Low Normal,H-High Normal,LL-Alert Low,HH-Alert High <-Panic Low,>-Panic High,A-Abnormal,AA-Critical Abnormal ---Performed at:[address] [facility] [address] Karena Shane MD, Reference Lab Test Patient Age Note . [facility] Comment on above: TESTS RESULT FLAG UN ITS REF RANGE LAB Clinician Provided Cytology Information Source.............Cervix;Endocervix No. of containers..01 ThinPrep VialAge Bernardo DRIVER Hailee... 30-65 FLAG LEGEND: L-Low Normal,H-High Normal,LL-Alert Low,HH-Alert High <-Panic Low,>-Panic High,A-Abnormal,AA-Critical Abnormal ---Performed at:01 =G [facility] [address] [address] Karena Shane MD, Basophils Auto (Bld) [#/Vol] on 04-09-2024 Basophils (Bld) [#/Vol] 0.1 10 3/uL 0.0-0.1 [facility] Basophils/100 WBC Auto (Bld) on 04-09-2024 Basophils/100 WBC (Bld) 0.8 % 0.2-2.0 [facility] Cholesterol in LDL Calc [Mas s/Vol]on 04-09-2024 Cholesterol in LDL [Mass/Vol] 156.0 mg/dL [facility] Comment on above: <100 mg/dl [id number] 0-129 mg/dl NEAR OR ABOVE [id number] mg/dl BORDERLINE [id number] mg/dl HIGH>190 mg/dl VERY HIGH Cholesterol in VLDL Calc [Ma ss/Vol]on 04-09-2024 Cholesterol in VLDL [Mass/Vol] 37.6 mg/dL [facility] Eosinophils/100 WBC Auto (Bl d)on 04-09-2024 Eosinophils/100 WBC (Bld) 2.3 % 0.9-7.0 [facility] Erythrocyte distribution wid th Auto (RBC) [Ratio]on 04-09-2024 Erythrocyte distribution width (RBC) [Ratio] 14.2 % 11.0-15.0 [facility] Globulin Calc (S) [Mass/Vol] on 04-09-2024 Globulin (S) [Mass/Vol] 3.7 g/dL [facility] Hematocrit Auto (Bld) [Volum e fraction]on 04-09-2024 Hematocrit (Bld) [Volume fraction] 48.4 % High 36.0-48.0 [facility] Hemoglobin [Mass/volume] in Bloodon 04-09-2024 Hemoglobin (Bld) [Mass/Vol] 15.8 g/dL 12.0-16.0 [facility] Laboratory - Chemistry and C hemistry - challengeon 04-09-2024 Albumin [Mass/Vol] 3.5 g/dL 3.4-5.0 [facility] ALP [Catalytic activity/Vol] 92 U/L 46-116 [facility] ALT [Catalytic activity/Vol] 30 U/L 14-59 [facility] AST [Catalytic activity/Vol] 17 U/L 15-37 [facility] Bilirubin [Mass/Vol] 0.6 mg/dL 0.2-1.0 [facility] Bilirubin.direct [Mass/Vol] 0.1 mg/dL 0.0-0.2 [facility] Cholesterol [Mass/Vol] 263 mg/dL High <=200 [facility] Cholesterol in HDL [Mass/Vol] 70 mg/dL High 40-60 [facility] Comment on above: > or =60 mg/dl - LOW CARDIOVASCULAR RISK<40 mg/dl - HIGH CARDIOVASCULAR RISK Protein [Mass/Vol] 7.2 g/dL 6.4-8.2 [facility] Triglyceride [Mass/Vol] 188 mg/dL High <=150 [facility] Laboratory - Hematology and Cell countson 04-09-2024 Immature granulocytes/100 WBC (Bld) 0.7 % High 0.0-0.5 [facility] Leukocytes [#/volume] correc sheeba for nucleated erythrocytes in Blood by Automated counon 04-09-2024 WBC corrected for nucl RBC Auto (Bld) [#/Vol] 7.4 10 3/uL 4.0-11.0 [facility] Lymphocytes Auto (Bld) [#/Vo l]on 04-09-2024 Lymphocytes (Bld) [#/Vol] 1.9 10 3/uL 1.2-3.8 [facility] Lymphocytes/100 WBC Auto (Bl d)on 04-09-2024 Lymphocytes/100 WBC (Bld) 25.8 % 20.5-60.0 [facility] MCH Auto (RBC) [Entitic mass ]on 04-09-2024 MCH (RBC) [Entitic mass] 29.5 pg 26.7-34.0 [facility] MCHC Auto (RBC) [Mass/Vol]on 04-09-2024 MCHC (RBC) [Mass/Vol] 32.6 g/dL 29.9-35.2 [facility] MCV Auto (RBC) [Entitic vol] on 04-09-2024 MCV (RBC) [Entitic vol] 90.3 fL 81.0-99.0 [facility] Monocytes Auto (Bld) [#/Vol] on 04-09-2024 Monocytes (Bld) [#/Vol] 0.6 10 3/uL 0.3-0.8 [facility] Monocytes/100 WBC Auto (Bld) on 04-09-2024 Monocytes/100 WBC (Bld) 7.9 % 1.7-12.0 [facility] Neutrophils Auto (Bld) [#/Vo l]on 04-09-2024 Neutrophils (Bld) [#/Vol] 4.6 10 3/uL 1.4-6.5 [facility] Neutrophils/100 WBC Auto (Bl d)on 04-09-2024 Neutrophils/100 WBC (Bld) 62.5 % 43.0-75.0 [facility] No Panel Informationon 04-09 Eosinophils # (Auto) 0.2 10 3/uL 0.0-0.7 [facility] Follicle Stimulating Hormone 71.8 mIU/mL 25.8-134.8 [facility] Comment on above: Adult Female Range F ollicular phase 3.5 - 12.5 Ovulation phase 4.7 - 21.5 Luteal phase 1.7 - 7.7 Postmenopausal 25.8 - 134.8Performed at: [facility] [address] [id number] Director: Reji Williamson PhD, Phone: [phone] Immature Granulocyte # (Auto) 0.05 10 3/uL High 0.00-0.03 [facility] [place] Level 0.1 mmol/L Abnormal 0.5-1.2 [facility] Comment on above: A concentration of 0 .5-0.8 mmol/L is advised for long-termuse; concentrations of up to 1.2 mmol/L may be necessaryduring acute treatment. Detection Limit = 0.1 <0.1 indicates None DetectedPerformed at: [facility] [place], [place] [id number] Director: Reji Williamson PhD, Phone: [phone] Platelet mean volume Auto (B ld) [Entitic vol]on 04-09-2024 Platelet mean volume (Bld) [Entitic vol] 10.0 fL 9.5-13.5 [facility] Platelets Auto (Bld) [#/Vol] on 04-09-2024 Platelets (Bld) [#/Vol] 278 10 3/uL 150-450 [facility] RBC Auto (Bld) [#/Vol]on RBC (Bld) [#/Vol] 5.36 10 6/uL 4.20-5.40 [facility] Serum or plasma albumin/glob ulin mass ratioon 04-09-2024 Albumin/Globulin [Mass ratio] 0.9 {ratio} [facility] Serum or plasma total choles terol/high density lipoprotein (HDL) cholesterol mass yoselyn 04-09-2024 Cholesterol.total/Ch olesterol in HDL [Mass ratio] 3.8 {ratio} [facility] Comment on above: 3.3 - 4.4 LOW RISK4. 4 - 7.1 AVERAGE RISK7.1 - 11.0 MODERATE RISK>11.0 HIGH RISK General Surgery Office/Clini c Noteon 01-14-2024 General [...] SARS-CoV-2 (COVID-19) mRNA-1273 vaccine 11/11/2020 Recorded Normal [facility] Comment on above: Result Comment: Elec tronically Signed By: BERONICA RAMIREZ, Dieter Bryson\Date and Time Signed: 01/14/24 17:14 EDT Nurse [...] SARS-CoV-2 (COVID-19) mRNA-1273 vaccine 11/11/2020 Recorded Normal [facility] Operative Reporton Operative Report [id number]#1.0 0TIFF Normal [facility] Pathology Noteon 01-08-2024 Pathology Note [id number]#1.0 0TIFF Normal [facility] [place] 12-31-2023 L Specimen: [id number] Received: 01/01/24 Status: VALERIE Mancini Num: [id number] Spec Type: Surgical Subm Dr: Dieter Wasserman MD FACS Tissues: A Skin-Other than Cyst, tag, debridement or plastic repair (RT NIPPLE LESION) Procedures: HE, Gross/Micro L4 Age/ Patient Sex Location Account Attending Physician Rain Sweeney/F JENISE [id number] Dieter Wasserman MD FACS SPEC NUM: [id number] RECD: 01/01/24 STATUS: VALERIE MANCINI NUM: [id number] JOSEMANUEL: 12/31/[address]: Dieter Wasserman MD FACS ENTERED: 01/01/[address] [facility] [address]: Renee Jang SPEC TYPE: Surgical DEPT: [...] and entirely submitted in A1. ---- Specimen: [id number] Received: 01/01/24 Status: VALERIE Mancini Num: [id number] Spec Type: Surgical Subm Dr: Dieter Wasserman MD FACS Tissues: A Skin-Other than Cyst, tag, debridement or plastic repair (RT NIPPLE LESION) Procedures: [place], Gross/Micro L4 ---- Patient: Rain Sweeney [id number] (Continued) ---- Specimen: [id number] Received: 01/01/24 (Continued) Signed (signature on file) Bobbi Buckner MD 01/05/24 1812 ---- Specimen: [id number] Received: 01/01/24 Status: VALERIE Weaver: [id number] Spec Type: Surgical Subm Dr: Dieter Wasserman MD FACS Tissues: A Skin-Other than Cyst, tag, debridement or plastic repair (RT NIPPLE LESION) Procedures: Ita FLOYD/Carlo L4 ---- Patient: Rain Sweeney Chantale [id number] (Continued) ---- Specimen: [id number] Received: 01/01/24 (Continued) CPT Codes 58403 ---- ---- Specimen: [id number] Received: 01/01/24 Status: VALERIE Mancini Num: [id number] Spec Type: Surgical Subm Dr: Dieter R Nill, MD FACS Tissues: A Skin-Other than Cyst, tag, debridement or plastic repair (RT NIPPLE LESION) Procedures: HE, Gross/Micro L4 ---- Patient: Rain Sweeney [id number] (Continued) ---- Signed (signature on file) Jeffrey-Tonny Buckner MD 01/05/241811 Normal [facility] Consent for Procedure/Surger yon 11-21-2023 Consent for Procedure/Surgery [id number]#1.0 0TIFF [facility] Facesheeton 11-20-2023 Facesheet [id number]#1.0 0TIFF Normal [facility] RAD - Ultrasound Reporton RAD - Ultrasound Report [id number]#1.0 0TIFF [facility] Ambulatory Visit Summaryon 0 11-19-2023 Ambulatory Visit Summary RAIN SWEENEY :1960 Visit Date:11/19/2023 Ambulatory Visit Instructions Your Diagnosis Lesion of right nipple Your Care Team Attending Physician - BERONICA RAMIREZ, Dieter Masters Primary Care Physician - SEB BARRY MD This Is Your Medications List Contact prescribing [...] for choosing us for your care. Normal [facility] Basophils Auto (Bld) [#/Vol] on 11-18-2023 Basophils (Bld) [#/Vol] 0.1 10 3/uL 0.0-0.1 [facility] Basophils/100 WBC Auto (Bld) on 11-18-2023 Basophils/100 WBC (Bld) 0.9 % 0.2-2.0 [facility] Cholesterol in LDL Calc [Mas s/Vol]on 11-18-2023 Cholesterol in LDL [Mass/Vol] 130.0 mg/dL [facility] Comment on above: <100 mg/dl [id number] 0-129 mg/dl NEAR OR ABOVE [id number] mg/dl BORDERLINE [id number] mg/dl HIGH>190 mg/dl VERY HIGH Cholesterol in VLDL Calc [Ma ss/Vol]on 11-18-2023 Cholesterol in VLDL [Mass/Vol] 19.8 mg/dL [facility] Eosinophils/100 WBC Auto (Bl d)on 11-18-2023 Eosinophils/100 WBC (Bld) 4.5 % 0.9-7.0 [facility] [facility] Erythrocyte distribution wid th Auto (RBC) [Ratio]on 11-18-2023 Erythrocyte distribution width (RBC) [Ratio] 13.6 % 11.0-15.0 [facility] Estimated glomerular filtrat ion rate (GFR) non- Americanon 11-18-2023 GFR/1.73 sq M.predicted among non-blacks MDRD (S/P/Bld) [Vol rate/Area] 55 mL/min/{1.73_m2} >=60 [facility] Globulin Calc (S) [Mass/Vol] on 11-18-2023 Globulin (S) [Mass/Vol] 3.6 g/dL [facility] Glucose mean value [Mass/vol ume] in Blood Estimated from glycated hemoglobinon 11-18-2023 Average glucose Estimated from glycated hemoglobin (Bld) [Mass/Vol] 100 mg/dL [facility] Hematocrit Auto (Bld) [Volum e fraction]on 11-18-2023 Hematocrit (Bld) [Volume fraction] 46.8 % 36.0-48.0 [facility] Hemoglobin [Mass/volume] in Bloodon 11-18-2023 Hemoglobin (Bld) [Mass/Vol] 15.0 g/dL 12.0-16.0 [facility] Laboratory - Chemistry and C hemistry - challengeon 11-18-2023 Albumin [Mass/Vol] 3.7 g/dL 3.4-5.0 [facility] ALP [Catalytic activity/Vol] 83 U/L 46-116 [facility] ALT [Catalytic activity/Vol] 40 U/L 14-59 [facility] AST [Catalytic activity/Vol] 22 U/L 15-37 [facility] Bilirubin [Mass/Vol] 0.4 mg/dL 0.2-1.0 [facility] Calcium [Mass/Vol] 9.1 mg/dL 8.5-10.1 [facility] Chloride [Moles/Vol] 104 mmol/L 98-107 [facility] Cholesterol [Mass/Vol] 226 mg/dL <=200 [facility] Cholesterol in HDL [Mass/Vol] 77 mg/dL 40-60 [facility] Comment on above: > or =60 mg/dl - LOW CARDIOVASCULAR RISK<40 mg/dl - HIGH CARDIOVASCULAR RISK CO2 [Moles/Vol] 26.6 mmol/L 21.0-32.0 [facility] Creatinine [Mass/Vol] 1.02 mg/dL 0.55-1.02 [facility] GFR/1.73 sq M.predicted MDRD (S/P/Bld) [Vol rate/Area] mL/min/{1.73_m2} >=60 [facility] Glucose [Mass/Vol] 107 mg/dL 74-106 [facility] Potassium [Moles/Vol] 3.7 mmol/L 3.5-5.1 [facility] Protein [Mass/Vol] 7.3 g/dL 6.4-8.2 [facility] Sodium [Moles/Vol] 141 mmol/L 136-145 [facility] Triglyceride [Mass/Vol] 99 mg/dL <=150 [facility] TSH Qn 1.352 m[IU]/L 0.358-3.740 [facility] Urea nitrogen [Mass/Vol] 9.0 mg/dL 7.0-18.0 [facility] Urea nitrogen/Creatinine [Mass ratio] 8.8 mg/mg [facility] Laboratory - Hematology and Cell countson 11-18-2023 HbA1c (Bld) [Mass fraction] 5.1 % 4.5-6.2 [facility] Comment on above: ADA RECOMMENDED LIMI T 4.0 - 6.0ADA THERAPEUTIC TARGET < 7.0ACTION SUGGESTED> 7.0 Immature granulocytes/100 WBC (Bld) 0.6 % 0.0-0.5 [facility] Leukocytes [#/volume] correc sheeba for nucleated erythrocytes in Blood by Automated counon 11-18-2023 WBC corrected for nucl RBC Auto (Bld) [#/Vol] 6.5 10 3/uL 4.0-11.0 [facility] Lymphocytes Auto (Bld) [#/Vo l]on 11-18-2023 Lymphocytes (Bld) [#/Vol] 1.7 10 3/uL 1.2-3.8 [facility] Lymphocytes/100 WBC Auto (Bl d)on 11-18-2023 Lymphocytes/100 WBC (Bld) 25.3 % 20.5-60.0 [facility] MCH Auto (RBC) [Entitic mass ]on 11-18-2023 MCH (RBC) [Entitic mass] 29.6 pg 26.7-34.0 [facility] MCHC Auto (RBC) [Mass/Vol]on 11-18-2023 MCHC (RBC) [Mass/Vol] 32.1 g/dL 29.9-35.2 [facility] MCV Auto (RBC) [Entitic vol] on 11-18-2023 MCV (RBC) [Entitic vol] 92.3 fL 81.0-99.0 [facility] Monocytes Auto (Bld) [#/Vol] on 11-18-2023 Monocytes (Bld) [#/Vol] 0.5 10 3/uL 0.3-0.8 [facility] Monocytes/100 WBC Auto (Bld) on 11-18-2023 Monocytes/100 WBC (Bld) 7.4 % 1.7-12.0 [facility] Neutrophils Auto (Bld) [#/Vo l]on 11-18-2023 Neutrophils (Bld) [#/Vol] 4.0 10 3/uL 1.4-6.5 [facility] Neutrophils/100 WBC Auto (Bl d)on 11-18-2023 Neutrophils/100 WBC (Bld) 61.3 % 43.0-75.0 [facility] No Panel Informationon 11-17 Eosinophils # (Auto) 0.3 10 3/uL 0.0-0.7 [facility] Immature Granulocyte # (Auto) 0.04 10 3/uL 0.00-0.03 [facility] [place] Level 0.9 mmol/L 0.5-1.2 [facility] Comment on above: A concentration of 0 .5-0.8 mmol/L is advised for long-termuse; concentrations of up to 1.2 mmol/L may be necessaryduring acute treatment. Detection Limit = 0.1 <0.1 indicates None DetectedPerformed at: [facility] [address] [id number] Director: Reji Williamson PhD, Phone: [phone] Outside Mammographyon 2023 Outside Mammography [id number]#1.0 0TIFF Normal [facility] Platelet mean volume Auto (B ld) [Entitic vol]on 11-18-2023 Platelet mean volume (Bld) [Entitic vol] 10.1 fL 9.5-13.5 [facility] Platelets Auto (Bld) [#/Vol] on 11-18-2023 Platelets (Bld) [#/Vol] 281 10 3/uL 150-450 [facility] RBC Auto (Bld) [#/Vol]on RBC (Bld) [#/Vol] 5.07 10 6/uL 4.20-5.40 [facility] Serum or plasma albumin/glob ulin mass ratioon 11-18-2023 Albumin/Globulin [Mass ratio] 1.0 {ratio} [facility] Serum or plasma anion gap de terminationon 11-18-2023 Anion gap [Moles/Vol] 14.1 mmol/L [facility] Serum or plasma total choles terol/high density lipoprotein (HDL) cholesterol mass yoselyn 11-18-2023 Cholesterol.total/Ch olesterol in HDL [Mass ratio] 2.9 {ratio} [facility] Comment on above: 3.3 - 4.4 LOW RISK4. 4 - 7.1 AVERAGE RISK7.1 - 11.0 MODERATE RISK>11.0 HIGH RISK Physician Referralon 024 Physician Referral [id number] 40 [id number] 0TIFF Normal [facility] XR lumbar spine 6V w bending on 05-29-2023 XR lumbar spine 6V w bending [facility] [place] [address] [place], [place] [id number] XRay Report Signed Patient: Rain Sweeney MR#: [id number] : 1960 Acct:[id number] Age/Sex: 62 / F ADM Date: 05/29/23 [...] Andrea Nina M.D.05/29/2023 7:00 PM Dictation Location: [place] [address] Transcribed By: [facility] 05/29/231899 Dictated By: Andrea Nina DO 05/29/23 1854 Signed By: 05/29/231899 Normal [facility] XR LSPINE 2_3 VIEWSon [...] MAKEDA MÁRQUEZ Date: 2022-12-06 11:24 Normal [facility] LITHIUMon 11-27-2022 [place] (Eskalith(R)), Serum 0.8 mmol/L Normal 0.5-1.2 [facility] Comment on above: Result Comment: A co ncentration of 0.5-0.8 mmol/L is advised for long-term use; concentrations of up to 1.2 mmol/L may be necessary during acute treatment. Detection Limit = 0.1 <0.1 indicates None Detected Performed By: #### L ITHIUM ####[facility] [id number] [place], [place] [address]ElDr. Laurel Buckner CREATININEon 11-26-2022 Creatinine [Mass/Vol] 0.97 mg/dL Normal 0.55-1.02 [facility] Comment on above: Performed By: #### T SH, CREA #### [facility] [address] [address] [address] Laurel Buckner EGFR-AF LIBYAN >60 Normal >=60 [facility] Comment on above: Performed By: #### T SH, CREA #### [facility] [address] [place] [address] [address] Laurel Buckner EGFR-NON AF LIBYAN 59 mL/min/1.73m2 Critically low >=60 [facility] Comment on above: Performed By: #### T SH, CREA #### [facility] [address] [address] [address] Laurel Buckner TSHon 11-26-2022 TSH 1.616 uIU/mL Normal 0.358-3.[address] [facility] Comment on above: Performed By: #### T SH, CREA #### [facility] [address] [address] [address] Laurel Buckner MG MAMM SCREEN 3D TOMY CADon 11-14-2022 MG MAMM SCREEN 3D TOMY CAD Patient: RAIN SWEENEY Exam Date: 11/14/2022 : 1960 Gender:F Ordering : DR SEB BARRY M.D. Admission #: [id number] Family : Order #: [id number] CLICK HERE TO VIEW EXAM RADIOLOGY REPORT [...] colon cancer at age 62. LOCATION: [facility] BREAST COMPOSITION: Heterogeneously dense,which may [...] MD on 11/14/2022 at 12:03 Normal [facility] LITHIUMon 05-16-2022 [place] (Eskalith(R)), Serum 0.8 mmol/L Normal 0.5-1.2 [facility] Comment on above: Result Comment: Plas ma concentration of 0.5 - 0.8 mmol/L are advised for long-term use; concentrations of up to 1.2 mmol/L may be necessary during acute treatment. Detection Limit = 0.1 <0.1 indicates None Detected Performed By: #### L ITHIUM #### [facility] [address] [address] [address] Laurel Buckner CBC AUTO DIFFon 05-15-2022 BASO # 0.1 103/ul Normal 0.0-0.1 [facility] Comment on above: Performed By: #### C BC #### [facility] [address] [address] [address] Laurel Buckner Basophils/100 WBC (Bld) 1.0 % Normal 0.2-2.0 [facility] Comment on above: Performed By: #### C BC #### [facility] [address] [address] [address] Laurel Buckner EO # 0.4 103/ul Normal 0.0-0.7 [facility] Comment on above: Performed By: #### C BC #### [facility] [address] [place] [address] Dr. Laurel Buckner Eosinophils/100 WBC (Bld) 5.3 % Normal 0.9-7.0 [facility] Comment on above: Performed By: #### C BC #### [facility] [address] [place] [address] Dr. Laurel Buckner Erythrocyte distribution width (RBC) [Ratio] 13.8 % Normal 11.0-15.0 [facility] Comment on above: Performed By: #### C BC #### [facility] [address] [place] [address] Dr. Laurel Buckner Hematocrit (Bld) [Volume fraction] 46.8 % Normal 36.0-48.0 [facility] Comment on above: Performed By: #### C BC #### [facility] [address] [place] [address] Dr. Laurel Buckner Hemoglobin (Bld) [Mass/Vol] 14.8 g/dL Normal 12.0-16.0 [facility] Comment on above: Performed By: #### C BC #### [facility] [address] [place] [address] Dr. Laurel Buckner IG # 0.07 10e3/ul Critically high 0.00-0.03 [facility] Comment on above: Performed By: #### C BC #### [facility] [address] [place] [address] Dr. Laurel Buckner IG % 1.0 % Critically high 0.0-0.5 [facility] Comment on above: Performed By: #### C BC #### [facility] [address] [place] [address] Dr. Laurel Buckner LYMPH # 1.7 103/ul Normal 1.2-3.8 [facility] Comment on above: Performed By: #### C BC #### [facility] [address] [place] [address] Dr. Laurel Buckner Lymphocytes/100 WBC (Bld) 25.4 % Normal 20.5-60.0 [facility] Comment on above: Performed By: #### C BC #### [facility] [address] [place] [address] Dr. Laurel Buckner MANUAL DIFF REQ NO Normal [facility] Comment on above: Performed By: #### C BC #### [facility] [address] [place] [address] Dr. Laurel Buckner MCH (RBC) [Entitic mass] 29.5 pg Normal 26.7-34.0 [facility] Comment on above: Performed By: #### C BC #### [facility] [address] [place] [address] Dr. Laurel Buckner MCHC (RBC) [Mass/Vol] 31.6 g/dL Normal 29.9-35.2 [facility] Comment on above: Performed By: #### C BC #### [facility] [address] [place] [address] Dr. Laurel Buckner MCV (RBC) [Entitic vol] 93.4 fL Normal 81.0-99.0 [facility] Comment on above: Performed By: #### C BC #### [facility] [address] [place] [address] Dr. Laurel Buckner MONO # 0.6 103/ul Normal 0.3-0.8 [facility] Comment on above: Performed By: #### C BC #### [facility] [address] [place] [address] Dr. Laurel Buckner Monocytes/100 WBC (Bld) 8.4 % Normal 1.7-12.0 [facility] Comment on above: Performed By: #### C BC #### [facility] [address] [place] [address] Dr. Laurel Buckner NEUT # 4.0 103/ul Normal 1.4-6.5 [facility] Comment on above: Performed By: #### C BC #### [facility] [address] [address] [address] Laurel Buckner Neutrophils/100 WBC (Bld) 58.9 % Normal 43.0-75.0 [facility] Comment on above: Performed By: #### C BC #### [facility] [address] [place] [address] Dr. Laurel Buckner Platelet mean volume (Bld) [Entitic vol] 10.1 fL Normal 9.5-13.5 [facility] Comment on above: Performed By: #### C BC #### [facility] [address] [address] [address] Laurel Buckner PLT 279 103/ul Normal 150-450 [facility] Comment on above: Result Comment: smea r reviewed Performed By: #### C BC #### [facility] [address] [place] [address] Dr. Laurel Buckner RBC 5.01 106/ul Normal 4.20-5.40 [facility] Comment on above: Performed By: #### C BC #### [facility] [address] [place] [address] Dr. Laurel Buckner WBC 6.8 103/ul Normal 4.0-11.0 [facility] Comment on above: Performed By: #### C BC #### [facility] [address] [place] [address] Dr. Laurel Buckner GLYCOHEMOGLOBIN A1Con 2021 ADA RECOMMENDATION SEE BELOW Normal [facility] Comment on above: Result Comment: ADA RECOMMENDED LIMIT 4.0 - 6.0 ADA THERAPEUTIC TARGET < 7.0 ACTION SUGGESTED > 7.0 Performed By: #### A 1C #### [facility] [address] [place] [address] Dr. Laurel Buckner Glucose [Mass/Vol] 97 mg/dL Normal [facility] Comment on above: Performed By: #### A 1C #### [facility] [address] [place] [address] Dr. Laurel Buckner HbA1c (Bld) [Mass fraction] 5.0 % Normal 4.5-6.2 [facility] Comment on above: Performed By: #### A 1C #### [facility] [address] [address] [address] Laurel Buckner LIPID PROFILEon 05-15-2022 CHOL-HDL RATIO NORM SEE BELOW Normal [facility] Comment on above: Result Comment: 3.3 - 4.4 LOW RISK 4.4 - 7.1 AVERAGE RISK 7.1 - 11.0 MODERATE RISK >11.0 HIGH RISK Performed By: #### L IPID, TSH, CMP #### [facility] [address] [address] [address] Laurel Buckner Cholesterol [Mass/Vol] 279 mg/dL Critically high <=200 [facility] Comment on above: Performed By: #### L IPID, TSH, CMP #### [facility] [address] [address] [address] Laurel Buckner Cholesterol in HDL [Mass/Vol] 76 mg/dL Critically high 40-60 [facility] Comment on above: Performed By: #### L IPID, TSH, CMP #### [facility] [address] [address] [address] Laurel Buckner Cholesterol in LDL [Mass/Vol] 162.8 mg/dL Normal [facility] Comment on above: Performed By: #### L IPID, TSH, CMP #### [facility] [address] [address] [address] Laurel Buckner Cholesterol.total/Ch olesterol in HDL [Mass ratio] 3.7 {ratio} Normal [facility] Comment on above: Performed By: #### L IPID, TSH, CMP #### [facility] [address] [address] [address] Laurel Buckner HDL NORMAL > or = 60 mg/dl - LO W CARDIOVASCULAR RISK <40 mg/dl - HIGH CARDIOVASCULAR RISK Normal [facility] Comment on above: Performed By: #### L IPID, TSH, CMP #### [facility] [address] [place] [address] Dr. Laurel Buckner LDL CALC NORMAL SEE BELOW Normal [facility] Comment on above: Result Comment: <100 mg/dl OPTIMAL 100 - 129 mg/dl NEAR OR ABOVE OPTIMAL 130 - 159 mg/dl BORDERLINE HIGH 160 - 189 mg/dl HIGH >190 mg/dl VERY HIGH Performed By: #### L IPID, TSH, CMP #### [facility] [address] [place] [address] Dr. Laurel Buckner Triglyceride [Mass/Vol] 201 mg/dL Critically high <=150 [facility] Comment on above: Performed By: #### L IPID, TSH, CMP #### [facility] [address] [address] [address] Laurel Buckner VLDL CALC 40.2 mg/dL Normal [facility] Comment on above: Performed By: #### L IPID, TSH, CMP #### [facility] [address] [place] [address] Dr. Laurel Buckner PROF 14(COMP METB)on 022 Albumin [Mass/Vol] 3.6 g/dL Normal 3.4-5.0 [facility] Comment on above: Performed By: #### L IPID, TSH, CMP #### [facility] [address] [place] [address] Dr. Laurel Buckner Albumin/Globulin [Mass ratio] 0.9 {ratio} Normal [facility] Comment on above: Performed By: #### L IPID, TSH, CMP #### [facility] [address] [place] [address] Dr. Laurel Buckner ALP [Catalytic activity/Vol] 110 U/L Normal 46-116 [facility] Comment on above: Performed By: #### L IPID, TSH, CMP #### [facility] [address] [place] [address] Dr. Laurel Buckner ALT [Catalytic activity/Vol] 22 U/L Normal 14-59 [facility] Comment on above: Performed By: #### L IPID, TSH, CMP #### [facility] [address] [place] [address] Dr. Laurel Buckner Anion gap [Moles/Vol] 10.8 mmol/L Normal [facility] Comment on above: Performed By: #### L IPID, TSH, CMP #### [facility] [address] [place] [address] Dr. Laurel Buckner AST [Catalytic activity/Vol] 11 U/L Critically low 15-37 [facility] Comment on above: Performed By: #### L IPID, TSH, CMP #### [facility] [address] [address] [address] Laurel Buckner Bilirubin [Mass/Vol] 0.3 mg/dL Normal 0.2-1.0 [facility] Comment on above: Performed By: #### L IPID, TSH, CMP #### [facility] [address] [place] [address] Dr. Laurel Buckner Calcium [Mass/Vol] 9.1 mg/dL Normal 8.5-10.1 [facility] Comment on above: Performed By: #### L IPID, TSH, CMP #### [facility] [address] [place] [address] Dr. Laurel Buckner Chloride [Moles/Vol] 103 mmol/L Normal 98-107 [facility] Comment on above: Performed By: #### L IPID, TSH, CMP #### [facility] [address] [place] [address] Dr. Laurel Buckner CO2 [Moles/Vol] 27.9 mmol/L Normal 21.0-32.0 [facility] Comment on above: Performed By: #### L IPID, TSH, CMP #### [facility] [address] [place] [address] Dr. Laurel Buckner Creatinine [Mass/Vol] 0.96 mg/dL Normal 0.55-1.02 [facility] Comment on above: Performed By: #### L IPID, TSH, CMP #### [facility] [address] [place] [address] Dr. Laurel Buckner EGFR-AF LIBYAN >60 Normal >=60 [facility] Comment on above: Performed By: #### L IPID, TSH, CMP #### [facility] [address] [place] [address] Dr. Laurel Buckner EGFR-NON AF LIBYAN 59 mL/min/1.73m2 Critically low >=60 [facility] Comment on above: Performed By: #### L IPID, TSH, CMP #### [facility] [address] [place] [address] Dr. Laurel Buckner Globulin (S) [Mass/Vol] 3.9 g/dL Normal [facility] Comment on above: Performed By: #### L IPID, TSH, CMP #### [facility] [address] [place] [address] Dr. Laurel Buckner Glucose [Mass/Vol] 90 mg/dL Normal 74-106 [facility] Comment on above: Performed By: #### L IPID, TSH, CMP #### [facility] [address] [place] [address] Dr. Laurel Buckner Potassium [Moles/Vol] 3.7 mmol/L Normal 3.5-5.1 [facility] Comment on above: Performed By: #### L IPID, TSH, CMP #### [facility] [address] [place] [address] Dr. Laurel Buckner Protein [Mass/Vol] 7.5 g/dL Normal 6.4-8.2 [facility] Comment on above: Performed By: #### L IPID, TSH, CMP #### [facility] [address] [place] [address] Dr. Laurel Buckner Sodium [Moles/Vol] 138 mmol/L Normal 136-145 [facility] Comment on above: Performed By: #### L IPID, TSH, CMP #### [facility] [address] [place] [address] Dr. Laurel Buckner Urea nitrogen [Mass/Vol] 16.0 mg/dL Normal 7.0-18.0 [facility] Comment on above: Performed By: #### L IPID, TSH, CMP #### [facility] [address] [place] [address] Dr. Laurel Buckner Urea nitrogen/Creatinine [Mass ratio] 16.7 mg/mg Normal [facility] Comment on above: Performed By: #### L IPID, TSH, CMP #### [facility] [address] [place] [address] Dr. Laurel Buckner TSHon 05-15-2022 TSH 3.094 uIU/mL Normal 0.358-3.[address] [facility] Comment on above: Performed By: #### L IPID, TSH, CMP #### [facility] [address] [address] [address] Laurel Buckner Vital Signs Date Time Vital Sign Value Performing Clinician Facility 05-19-2024 10:20-0400 Body height 170.18 cm PHYSICIAN NO [facility] 05-19-2024 10:20-0400 Body mass index (BMI) [Ratio] 27.3 kg/m2 PHYSICIAN NO [facility] 05-19-2024 10:20-0400 Body temperature 97.8 [degF] PHYSICIAN NO [facility] 05-19-2024 10:20-0400 Body weight 79.37 kg PHYSICIAN NO [facility] 05-19-2024 10:20-0400 Diastolic blood pressure 95 mm[Hg] PHYSICIAN NO [facility] 05-19-2024 10:20-0400 Heart rate 111 /min PHYSICIAN NO [facility] 05-19-2024 10:20-0400 Respiratory rate 18 /min PHYSICIAN NO [facility] 05-19-2024 10:20-0400 SaO2% (BldA) [Mass fraction] 97 % PHYSICIAN NO [facility] 05-19-2024 10:20-0400 Systolic blood pressure 147 mm[Hg] PHYSICIAN NO [facility] 01-30-2024 09:36-0400 Body height 170.18 cm PHYSICIAN NO [facility] 01-30-2024 09:36-0400 Body mass index (BMI) [Ratio] 26.7 kg/m2 [facility] [facility] 01-30-2024 09:36-0400 Body weight 77.56 kg PHYSICIAN NO [facility] 01-30-2024 09:36-0400 Diastolic blood pressure 80 mm[Hg] PHYSICIAN NO [facility] 01-30-2024 09:36-0400 Heart rate 108 /min PHYSICIAN NO [facility] 01-30-2024 09:36-0400 Systolic blood pressure 114 mm[Hg] PHYSICIAN NO [facility] 11-19-2023 13:56-0400 Blood Pressure Location Dieter BUSTOSL [facility] [place] 11-19-2023 13:56-0400 Diastolic blood pressure 92 mm[Hg] Dieter BUSTOSL [facility] [place] 11-19-2023 13:56-0400 Heart rate 72 /min Dieter NILL [facility] [place] 11-19-2023 13:56-0400 Respiratory rate 16 /min Dieter NILL [facility] [place] 11-19-2023 13:56-0400 Systolic blood pressure 132 mm[Hg] Dieter NILL [facility] [place] 11-12-2023 10:20-0400 Body height 170.18 cm PHYSICIAN NO [facility] 11-12-2023 10:20-0400 Body mass index (BMI) [Ratio] 28 kg/m2 PHYSICIAN NO [facility] 11-12-2023 10:20-0400 Body weight 81.36 kg PHYSICIAN NO [facility] 11-12-2023 10:20-0400 Diastolic blood pressure 77 mm[Hg] PHYSICIAN NO [facility] 11-12-2023 10:20-0400 Heart rate 124 /min PHYSICIAN NO [facility] 11-12-2023 10:20-0400 Systolic blood pressure 124 mm[Hg] PHYSICIAN NO [facility] 10-22-2023 09:23-0400 Body height 170.18 cm PHYSICIAN NO [facility] 10-22-2023 09:23-0400 Body mass index (BMI) [Ratio] 29.1 kg/m2 PHYSICIAN NO [facility] 10-22-2023 09:23-0400 Body weight 84.36 kg PHYSICIAN NO [facility] 10-22-2023 09:23-0400 Diastolic blood pressure 85 mm[Hg] PHYSICIAN NO [facility] 10-22-2023 09:23-0400 Heart rate 106 /min PHYSICIAN NO [facility] 10-22-2023 09:23-0400 Systolic blood pressure 140 mm[Hg] PHYSICIAN NO [facility] 05-29-2023 14:00-0400 Body height 170.18 cm Helio Barry Other [facility] Other 05-29-2023 14:00-0400 Body mass index (BMI) [Ratio] 29.44 kg/m2 Helio Barry Other [facility] Other 05-29-2023 14:00-0400 Body weight 85.28 kg Helio Barry Other [facility] Other 05-05-2023 08:30-0400 Body height 170.18 cm Seb Barry Other [facility] Other 05-05-2023 08:30-0400 Body mass index (BMI) [Ratio] 29.44 kg/m2 Seb Barry Other [facility] Other 05-05-2023 08:30-0400 Body weight 85.28 kg Seb Barry Other [facility] Other 05-05-2023 08:30-0400 Diastolic blood pressure 82 mm[Hg] Seb Barry Other [facility] Other 05-05-2023 08:30-0400 Systolic blood pressure 128 mm[Hg] Seb Barry Other [facility] Other 04-01-2023 10:00-0400 Body height 170.18 cm Seb Barry Other [facility] Other 04-01-2023 10:00-0400 Body mass index (BMI) [Ratio] 29.13 kg/m2 Seb Barry Other [facility] Other 04-01-2023 10:00-0400 Body weight 84.37 kg Seb sAha Other [facility] Other 04-01-2023 10:00-0400 Diastolic blood pressure 86 mm[Hg] Seb Asha Other [facility] Other 04-01-2023 10:00-0400 Systolic blood pressure 148 mm[Hg] Seb Asha Other [facility] Other Encounters Encounter Date Encounter Type Care Provider Facility Start: 05-25-2024 ambulatory BIANKA Macias acility:[facility] Start: 05-19-2024 End: 05-19-2024 Departed Referred PHYSICIAN NO [facility] [place] Work Phone: Start: 05-19-2024 End: 05-19-2024 ambulatory Adamaris Hill Facility:[facility] Start: 05-19-2024 End: 05-19-2024 Patient encounter procedure PHYSICIAN NO [facility] [place] Work Phone: Start: 05-04-2024 Non-patient / Non-visit PHYSICIAN NO [facility] Work Phone: Start: 05-04-2024 Registered Recurring PHYSICIAN NO RONN[facility] Start: 05-04-2024 ambulatory PHYSICIAN NO [facility] ility:[facility] Start: 04-21-2024 Non-patient / Non-visit PHYSICIAN NO [facility] Work Phone: Start: 04-21-2024 End: 04-21-2024 ambulatory FAIZA WELLER Not Available Start: 04-09-2024 Non-patient / Non-visit PHYSICIAN NO [facility] Work Phone: Start: 02-26-2024 End: 02-26-2024 ambulatory Beryl Henderson Facility:[facility] Start: 02-26-2024 End: 02-26-2024 Patient encounter procedure Beryl Henderson [facility] [place] Start: 01-30-2024 End: 01-30-2024 ambulatory PHYSICIAN NO [facility] Work Phone: Start: 01-30-2024 End: 01-30-2024 Patient encounter procedure PHYSICIAN NO [facility] Work Phone: Start: 01-14-2024 End: 01-14-2024 ambulatory Dieter R NILL Facility:[facility] Start: 01-14-2024 End: 01-14-2024 Patient encounter procedure Dieter R NILL [facility] [place] Start: 01-13-2024 ambulatory Dieter R NILL Facility :[facility] Start: 12-31-2023 End: 12-31-2023 ambulatory PHYSICIAN NO [facility] Work Phone: Start: 12-31-2023 End: 12-31-2023 Departed Referred PHYSICIAN NO [facility] Start: 12-31-2023 End: 12-31-2023 ambulatory Dieter R NILL Facility:[id number] Start: 12-09-2023 Registered Recurring PHYSICIAN NO [facility] Start: 11-19-2023 End: 11-19-2023 ambulatory Dieter R NILL Facility: [facility] Start: 11-19-2023 End: 11-19-2023 Patient encounter procedure Dieter R NILL General Surgery [facility] Start: 11-18-2023 Non-patient / Non-visit PHYSICIAN NO [facility] Work Phone: Start: 11-17-2023 ambulatory Beryl Galea Facility:[facility] Start: 11-14-2023 ambulatory Beryl Galea Facility:[facility] Start: 11-12-2023 End: 11-12-2023 ambulatory PHYSICIAN NO [facility] Work Phone: Start: 11-12-2023 End: 11-12-2023 Patient encounter procedure PHYSICIAN NO [facility] Work Phone: Start: 11-04-2023 Registered Recurring PHYSICIAN NO RONN[facility] Start: 10-22-2023 Patient encounter status PHYSICIAN NO [facility] Start: 10-22-2023 End: 10-22-2023 Encounter for general adult medical examination without abnormal findings PHYSICIAN NO [facility] Start: 10-22-2023 End: 10-22-2023 Patient encounter procedure PHYSICIAN NO [facility] Work Phone: Start: 09-09-2023 Registered Recurring PHYSICIAN NO RONNIE [facility] Start: 05-30-2023 End: 05-30-2023 ambulatory Helio Barry Other [facility] Other Start: 05-30-2023 Telephone encounter Helio Barry [facility] Bat Person Start: 05-29-2023 Office outpatient ne w 30 minutes Helio Barry [facility] Neurosurgery Start: 05-29-2023 End: 05-29-2023 Patient encounter procedure MD Seb Barry Work Phone: [facility] [place] Work Phone: Start: 05-29-2023 End: 05-29-2023 ambulatory MD Seb Barry Work Phone: [facility] Work Phone: Start: 05-16-2023 End: 05-16-2023 ambulatory Seb Barry Other [facility] Other Start: 05-16-2023 Telephone encounter Seb Barry [facility] Start: 05-05-2023 End: 05-05-2023 ambulatory Seb Barry Other [facility] Other Start: 05-05-2023 Office outpatient vi sit 15 minutes Seb Barry [facility] Start: 04-07-2023 End: 04-07-2023 ambulatory Seb Barry Other [facility] Other Start: 04-07-2023 Telephone encounter Seb Barry [facility] Start: 04-01-2023 End: 04-01-2023 ambulatory Seb Barry Other [facility] Other Start: 04-01-2023 Office outpatient vi sit 15 minutes Seb Barry [facility] Start: 12-27-2022 ambulatory GOLDY GLOVER Facility: [facility] Start: 12-23-2022 End: 12-23-2022 ambulatory Goldy Glover Other [facility] Other Start: 12-23-2022 Office outpatient ne w 45 minutes Goldy Glover [facility] Pain [facility] [place] Start: 12-06-2022 Telephone encounter Seb Barry [facility] Start: 12-06-2022 End: 12-07-[address] SEB BARRY [facility] Other Start: 11-26-2022 End: 11-27-2022 ambulatory REGULO OWEN Facility:[facility] Start: 11-14-2022 End: 11-15-[address] SEB BARRY Facility:[facility] Start: 05-17-2022 Encounter for genera l adult medical examination without abnormal findings DR SEB BARRY [facility] Start: 05-15-2022 End: 05-16-[address] SEB BARRY Facility:[facility] Start: 05-15-2022 End: 05-16-2022 Encounter for general adult medical examination without abnormal findings DR SEB BARRY Facility:[facility] Start: 05-14-2022 Adult health examination Seb Barry Other [facility] Other Start: 04-18-2022 End: 04-18-2022 ambulatory Paresh Marily Other [facility] Other Start: 04-18-2022 Telephone encounter Paresh Marily [facility] Start: 02-27-2022 End: 02-27-2022 ambulatory Paresh Marily Other [facility] Other Start: 02-27-2022 Telephone encounter Paresh Marily [facility] Start: 02-05-2022 ambulatory PARESH MARILY Facility:[facility] Start: 12-13-2021 End: 12-13-2021 ambulatory Paresh Marily Other [facility] Other Start: 12-13-2021 Telephone encounter Paresh Marily [facility] Start: 09-19-2021 End: 09-19-2021 ambulatory Paresh Marily Other [facility] Other Start: 09-19-2021 Telephone encounter Paresh Marily [facility] Start: 09-05-2021 End: 09-05-2021 ambulatory Paresh Marily Other [facility] Other Start: 09-05-2021 Telephone encounter Paresh Marily [facility] Procedures Date Procedure Procedure Detail Performing Clinician Start: 05-29-2023 X-ray of lumbar spin e, six views including bending views MD Seb Barry Work Phone: History of bilateral breast implants [facility] [employer] History of nasal sin us surgery Dieter NILL Ligation of fallopian tube M adelitatejas [employer] Screening for malign ant neoplasm of breast Seb Barry Other Screening for malign ant neoplasm of colon Seb Barry Other Stapedectomy Dieter WASSERMAN Plan of Treatment Date Care Activity Detail Author Start: 05-19-2024 Bacteria identified in Urine by Culture Urine Culture [facility] Start: 05-19-2024 Urine culture [facility] Start: 11-12-2023 Patient referral [facility] Work Phone: MG Breast - bilatera l Diagnostic [facility] Patient Education Yearly Physica l for Adults [facility] Work Phone: Patient referral [facility] Work Phone: Immunizations Immunization Date Immunization Notes Care Provider Fa ciliafia 10-12-2022 influenza virus vaccine, unspecified formulation Dieter BUSTOSDavi [facility] 10-12-2022 influenza, injectabl e, quadrivalent, preservative free Seb Barry Other [facility] 02-19-2022 diphtheria, tetanus toxoids and acellular pertussis vaccine, unspecified formulation Seb Barry Other [facility] 02-19-2022 tetanus toxoid, reduced diphtheria toxoid, and acellular pertussis vaccine, adsorbed Seb Barry Other [facility] 08-07-2021 COVID-19 Vaccine Moderna - Documentation Purposes Only Seb Barry Other [facility] 05-28-2021 influenza virus vaccine, split virus (incl. purified surface antigen) Seb Barry Other [facility] Other 05-28-2021 influenza virus vaccine, unspecified formulation PHYSICIAN BALDOMERO [facility] 12-09-2020 COVID-19 Vaccine Moderna - Documentation Purposes Only Seb Barry Other [facility] 11-11-2020 COVID-19 Vaccine Moderna - Documentation Purposes Only Seb Barry Other [facility] Payers Date Payer Category Payer Unknown [id number] 2.16.84 [id number] 1960 Unknown [id number] 2.16.84 [id number] 1960 Unknown [id number] 2.16.84 [id number] 1962 Unknown [id number] 2.16.84 [id number] 1962 Unknown [id number] 2.16.84 [id number] 1962 Unknown [id number] 2.16.84 [id number] 1962 Unknown [id number] 2.16.84 [id number] 1962 Unknown [id number] 2.16.8 [id number] 1962 Unknown [id number] 2.16.8 [id number] 1962 Unknown [id number] 2.16.8 [id number] 1962 Unknown [id number] 2.16.8 40.1.987336.3.579.2.727 1962 Unknown [id number] 2.16.8 [id number] 1962 Unknown [id number] 2.16.8 [id number] 1962 Unknown [id number] 2.16.8 [id number] 1959 Private Health Insurance [id number] 1959 Private Health Insurance [id number] Self-pay [facility] [id number] Private Health Insurance [id number] Unknown [id number] 2.16.8 [id number] Unknown [id number] 2.16.8 [id number] Unknown [id number] 2.16.8 [id number] Social History Date Type Detail Facility Sex Assigned At [facility] Start: 1960 Sex Assigned At Female F [facility] Start: 05-29-2023 End: 11-19-2023 Tobacco smoking status NHIS Never smoked tobacco (finding) [facility] Tobacco smoking status Never [facility] [place] Functional Status Date Assessment Result Facility 11-19-2023 [...] Recorded SARS-CoV-2 (COVID-19) mRNA-1273 vaccine 11/11/2020 Recorded [facility] Comment on above: Result Comment: Elec [...] may be able to offer some advice. [facility] Other 09-25-2023 Evaluation note* Encounter Date Diagnosis Assessment Notes Treatment Notes Treatment Clinical Notes Apr, Right lumbar radiculopathy (ICD-10 - M54.16) Presently in PT - discharged on 05/02. Requests MRI and referral. [facility] Other 08-22-2023 Evaluation note* Encounter Date Diagnosis Assessment Notes Treatment Notes Treatment Clinical Notes Mar, Right hip pain (ICD-10 - M25.551) PT paper given to pt. Handout for home stretches given as well. Tramadol to help her sleep. She understands it is a controlled substance and could be sedating. [facility] Other 05-15-2023 Evaluation note* Encounter Date Diagnosis [...] Above note written by Morris Flor MA, Coordinate Measuring Machine Technician. Edited and approved by Dr. Goldy Glover [...] negative findings were considered in medical decision-making. [facility] Other 04-28-2023 Evaluation note* Encounter Date Diagnosis Assessment Notes Treatment Notes Treatment Clinical Notes Nov, Lumbar pain (ICD-10 - M54.50) [facility] Other 07-20-2022 Evaluation note* Encounter Date Diagnosis Assessment Notes Treatment Notes Treatment Clinical Notes Feb, Bipolar 1 disorder, depressed (ICD-10 - F31.9) [facility] Other 05-05-2022 Evaluation note* Encounter Date Diagnosis Assessment Notes Treatment Notes Treatment Clinical Notes December, Bipolar 1 disorder, depressed (ICD-10 - F31.9) [facility] Other Evaluation + Plan note No data available for this section General Surgery [facility]ail Evaluation noteNo InformationNort [employer] Other Evaluation noteNo assessment information available [facility] Work Phone: Evaluation note* Diagnosis Onset Date Resolution Status Acne acute Breast mass, right acute Wellness examination acute Abnormal ultrasound of breast acute [facility] Work Phone: Evaluation note* Diagnosis Onset Date Resolution Status Abnormal ultrasound of breast acute [facility] Work Phone: Evaluation note* Diagnosis Onset Date Resolution Status UTI (urinary tract infection) acute Dysuria noneactive [facility] Work Phone: Hisgmjg general Narrative - Reported* Type Description Date Medical History bipolar disorder Medical History anxiety disorder Medical History high blood pressure Surgical History 2 boul ligation 2000 Surgical History stepidectomy 2009 Surgical History sinus surgery 2015 Hospitalization History See surgical hx [facility] Other Hisrsda general Narrative - Reported* Type Description Date Medical History bipolar disorder Medical History anxiety disorder Medical History high blood pressure Medical History Fatigue Medical History High risk medication use Surgical History 2 boul ligation 2000 Surgical History stepidectomy 2009 Surgical History sinus surgery 2015 Surgical History LUBAL LIGATION Hospitalization History See surgical hx Hospitalization [facility] Other Hisgdto general Narrative - Reported* Type Description Date [...] Hospitalization History See surgical hx Hospitalization History [employer] [facility] Other Hospital Discharge instructionsAmbulatory Orders* Referral to General Surgery Time Frame: 11/12/23, Location: None Selected [facility] Work Phone: Hospital Discharge instructions No data available for this section General Surgery [facility] Progress note No data available for this section General Surgery [facility] Reason for Referral Reason piriformis pain Diagnosis 1 Adolescent idiopathi c scoliosis of lumbosacral spine (M41.127) Referral Organization [facility] urosurgery Referring Provider First Name Helio Referring Provider Last Name Asha Referring Provider Specialty Neurologica l Surgery Referred Organization [facility] Referred Provider Danny Solares [place] [address] [place] Referred Provider Specialty Orthopaedic Surgery Referral Priority Routine Reason Requests Dr. Helio qureshi - MRI pending. Went to [facility] and had xrays on 05/05. Diagnosis 1 Right lumbar radicul opathy (M54.16) Referral Organization [facility] lauren Referring Provider First Name Seb Referring Provider Last Name Asha Referring Provider Specialty Family Medi cine Referred Organization [facility] Neurosurgery [facility] Referred Address [address], [place],[address] Referred Provider Specialty Neurological Surgery Referral Priority Routine Reason No preference on off ice - Lumbar pain - recent OV and xray - thanks Diagnosis 1 Lumbar pain (M54.50) Referral Organization [facility] lauren Referring Provider First Name Seb Referring Provider Last Name Asha Referring Provider Specialty Family Medi cine Referred Organization Unknown Facility Referred Provider Specialty Pain Medicin e Referral Priority Routine Summary Purpose Family History No Family History Records Found Relationship Condition Age at Onset Recorded Date/T patricia daughter Bipolar disorder Unknown Malignant neoplasm Unknown father Bipolar disorder Unknown Unknown Not Specified Unknown Relationship Condition Age at Onset Recorded Date/T patricia daughter Bipolar disorder Unknown Malignant neoplasm Unknown father Bipolar disorder Unknown Unknown mother Unknown Advance Directives No Advanced Directives Records [...] Reason for Visit Abnormal ultrasound of breast Chief Complaint Possible UTI Reason for Visit UTI (urinary tract i nfection) Dysuria Chief Complaint Possible UTI Dysuria Reason for Visit UTI (urinary tract i nfection) Dysuria Additional Source Comments REASON FOR VISIT (unrecogniz ed section and content) cancelled apptupdateupdate/r efillRefillsreferrallumbar xrayREF BY DR SEB BARRY FOR LUMBAR PAINReferral?TBHReferralMRIreferred by Dr. Sarath Barry right lumbar radicNeurosurgery Office Notes INFORMATION SOURCE (unrecogn ized section and content) DATE CREATED AUTHOR 12/25/2022 [facility] DATE CREATED AUTHOR AUTHOR'S ORGANIZ ATION 04/23/2024 [facility] dical Specialists EPIC DATE CREATED AUTHOR AUTHOR'S ORGANIZ ATION 05/22/2024 [facility] DATE CREATED AUTHOR AUTHOR'S ORGANIZ ATION 05/24/2024 Gagandeep Hernandez [facility] Care Teams (unrecognized sec tion and content) Team Status: Active Member Role Status Dates Seb Barry MD Primary Care Provider Active Team Status: Active Member Role Status Dates Seb Barry MD Primary Care Provider Active Start: April 09, 2024 Karon Brito MD Attending Provider Active Start: April 09, 2024 Team Status: Active Member Role Status Dates Seb Barry MD Primary Care Provider Active Start: April 21, 2024 Faiza Weller PA-C Attending Provider Active Start : April 21, 2024 Team Status: Active Member Role Status Dates PHYSICIAN NO FAMILY Primary Care Provider Active Start: May 04, 2024 Pan Sanders MD Attending Provider Active Start: May 04, 2024 Team Status: Active Member Role Status Dates Seb Barry MD Primary Care Provider Active Start: May 04, 2024 Faiza Weller PA-C Attending Provider Active Start : May 04, 2024 Team Status: Inactive Member Role Status Dates Seb Barry MD Primary Care Provider Active Start: May 19, 2024 End: May 19, 2024 Adamaris Hill APRN Attending Provider Active S tart: May 19, 2024 End: May 19, 2024 Team Status: Inactive Member Role Status Dates Seb Barry MD Primary Care Provide r, Attending Provider Active Start: October 22, 2023 End: October 22, 2023 Team Status: Active Member Role Status Dates PHYSICIAN NO FAMILY Primary Care Provider Active Start: November 04, 2023 Pan Sanders MD Attending Provider Active Start: November 04, 2023 Team Status: Inactive Member Role Status Dates Seb Barry MD Primary Care Provide r, Attending Provider Active Start: November 12, 2023 End: November 12, 2023 Team Status: Active Member Role Status Dates Seb Barry MD Primary Care Provide r, Attending Provider Active Start: November 18, 2023 Team Status: Inactive Member Role Status Dates Seb Barry MD Primary Care Provider Active Start: December 31, 2023 End: December 31, 2023 Dieter Wasserman MD [facility] Attending Provider Active Start: December 31, 2023 End: December 31, 2023 Team Status: Active Member Role Status Dates PHYSICIAN NO FAMILY Primary Care Provider Active Start: September 09, 2023 Pan Sanders MD Attending Provider Active Start: September 09, 2023 Team Status: Inactive Member Role Status Dates Helio Barry MD Attending Provider Active Seb Barry MD Primary Care Provider Active Team Status: Active Member Role Status Dates PHYSICIAN NO FAMILY Primary Care Provider Active Start: December 09, 2023 Pan Sanders MD Attending Provider Active Start: December 09, 2023 Team Status: Inactive Member Role Status Dates Seb Barry MD Primary Care Provide r, Attending Provider Active Start: January 30, 2024 End: January 30, 2024 Team Status: Inactive Member Role Status Dates Adamaris Hill APRN Attending Provider Active S tart: May 19, 2024 End: May 19, 2024 Goals (unrecognized section and content) Goals [...] BE BASED ON THE PRIMARY CLINICAL RECORDS. [employer] provides no warranty or guarantee of the accuracy or completeness of information in this document.
[2024-05-26 09:29] LABS: Alanine Aminotransferase 21 U/L (14-59); Albumin Globulin Ratio 0.8; Albumin Level 3.5 g/dL (3.4-5.0); Alkaline Phosphatase 110 U/L (46-116); Aspartate Amino Transferase 14 U/L (15-37); Bilirubin Direct 0.1 mg/dL (0.0-0.2); Bilirubin Total 0.2 mg/dL (0.2-1.0); Chol HDL Ratio 3.5; Cholesterol 281 mg/dL (<=200); Estimated GFR (African America 53 (>=60 mL/min/1.73m^2); Estimated GFR (Non-African Ame 44 (>=60 mL/min/1.73m^2); Globulin 4.3 g/dL; Glucose 110 mg/dL (74-106); HDL Cholesterol 80 mg/dL (40-60); Thyroid Stimulating Hormone 1.756 uIU/mL (0.358-3.740); Total Protein 7.8 g/dL (6.4-8.2); Triglycerides 205 mg/dL (<=150)
[2024-05-27 05:08] LABS: Lithium (Eskalith(R)), Serum 0.6 mmol/L (0.5-1.2)
== END 2024-05-26 08:24 | disposition home or self-care (01) ==
LOC: LAB 08:25
PROVIDERS: PCP Family Medicine; Visit Provider Psychiatry & Neurology Psychiatry
DX: F31.9 Bipolar disorder, unspecified (principal); Z79.899 Other long term (current) drug therapy
CPT/HCPCS: 36415; 80061; 80076; 80178; 82565; 82947; 84443; 84520

== ENCOUNTER 2024-07-23 17:47 | Emergency (ER) | payer OTHER, SELFPAY ==
[2024-07-23 17:50] VITALS: BP 156/104; PULSE 84; TEMP 37; O2SAT 100; BMI 27.4
--- OUTSIDE RECORDS SUMMARY | 2024-07-23 17:53 | XMS_ITS | CCD ---
Author Organization [facility] Care Team Providers Care Wet Sander Name Role Phone Paresh Calixto Unavailable Seb Barry Unavailable Goldy Glover Unavailable ASHA, DR SEB Reyes Attending Unavailable ASHA, DR SEB Reyes Consulting Unavailable ASHA, DR SEB Reyes Admitting Unavailable BARRY, DR SEB Reyes Admitting Unavailable WEST, DR MAKEDA Schneider Consulting Unavailable BARRY, DR SEB Reyes Attending Unavailable BARRY, DR SEB Reyes Consulting Unavailable LEXIE, REGULO Admitting Unavailable LEXIE, REGULO Attending Unavailable REGULO HINDS Consulting Unavailable BARRY, DR SEB Reyes Admitting [...] Provider MD Seb Barry Primary Care Provider [phone] Helio Barry Unavailable NO FAMILY, PHYSICIAN Primary Care Provider Unava MD Pan Gutierrez Attending Provider [phone] SEB BARRY Primary Care Physician [phone] NO FAMILY, PHYSICIAN Primary Care Provider Unava MD Pan Gutierrez Attending Provider [phone] MD Seb Barry Primary Care Provider [phone] MD Dieter Loco Attending Provider NO FAMILY, PHYSICIAN Primary Care Provider Unava MD Pan Gutierrez Attending Provider [phone] FAIZA ALMENDAREZ Attending Unavailable NO FAMILY, PHYSICIAN Primary Care Provider Unava ilable MD Pan Sanders Attending Provider KAUSHAL Hill Attending Provider NON STAFF Primary Care Provider UnavailDieter Olivarez Attending Unavailable NKANSAH-AMANKRA, HAMILTON Attending Unavail able Beryl Henderson Attending Unavailable KARON FLORES Attending Unavailable NKANSAH-AMANKRA, HAMILTON Admitting Unavail able NKANSAH-AMANKRA, HAMILTON Attending Unavail able NKANSAH-AMANKRA, HAMILTON Referring Unavail able Dieter LOCO Attending Unavailable Dieter LOCO Attending Unavailable Dieter LOCO Attending Unavailable Liz Adamaris EASLEY Attending Provider NON STAFF Primary Care Provider UnavailSeb Martínez MD Attending Provider NO FAMILY, PHYSICIAN Primary Care Provider Unava ilable Pan Sanders MD Attending Provider [phone] NKANSAH-AMANKRA, HAMILTON Admitting Unavail able NKANSAH-AMANKRA, HAMILTON Attending Unavail able NKANSAH-AMANKRA, HAMILTON Referring Unavail able NKANSAH-AMANKRA, HAMILTON Referring Unavail able NKANSAH-AMANKRA, HAMILTON Admitting Unavail able NKANSAH-AMANKRA, HAMILTON Attending Unavail able NKANSAH-AMANKRA, HAMILTON Attending Unavail able Seb Barry Admitting Unavailable Seb Barry Attending Unavailable Adamaris Hill Attending Unavailable NON STAFF Primary Care Unavailable Adamaris Hill Admitting Unavailable NO FAMILY, PHYSICIAN Primary Care Unavailable Pan Sanders Admitting Unavailab le Pan Sanders Attending Unavailab Dieter Beth Attending Unavailable Seb Barry Primary Care Unavailable Dieter Loco Admitting Unavailable Seb Barry MD Primary Care Provider Allergies Allergy Classification Reported Allergen(s) Allergy Type Date of Onset Reaction(s) Facility (12 sources) Penicillins Drug allergy 4 [facility] (20 sources) metFORMIN; Translations: [metformin] Drug Allergy 4 [facility] (disorder) [facility] (8 sources) Substance with penicillin structure and antibacterial mechanism of action (substance) Drug allergy [employer] Other (11 sources) Penicillin; Translations: [penicillin] Drug Allergy Weal (disorder) [facility] (1 source) metFORMIN Drug Allergy [address] [facility] (1 source) Penicillins Drug allergy (disorder) [address] [facility] (2 sources) Penicillins Drug Allergy 4 [facility] Medications Current Medications Medication Drug Class(es) Dates Sig (Normalized) Sig (Original) aspirin 81 mg chewable tablet (7 sources) Platelet Aggregation Inhibitor, Nonsteroidal Anti-inflammatory Drug take 1 tablet by mouth every twenty-four hours Aspirin 81 MG 1 tablet Orally Once a day PRN Active Calcium Carbonate (12 sources) Start: 11-17-2023 take 1 tablet by mouth twice daily calcium carbonate = 1 tab(s), Oral, BID, Refills(s) 0 Start Date: 11/17/23 Status: Ordered Start: 10-22-2023 take 1 tablet by feliberto th twice daily at mealtime Calcium Carbonate 500 mg calcium (1,250 mg) tablet Active 1 TAB PO Twice daily October 21, 2023 11:00pm FreeTextSi tablet with meals Orally Twice a day; Note: Source Status: Taking; Provider: Asha Cadet ( ) take 1 tablet by feliberto th every twelve hours Calcium 500 MG 1 tablet with meals Orally Twice a day Active ciprofloxacin 500 mg oral tablet (1 source) Quinolone Antimicrobial Start: 05-28-2024 take 1 tablet by mouth once daily Cipro 500 mg Tab See Instructions, 1 tab po day prior to cysto, 1 tab po following cysto, # 2 tab(s), Refills(s) 0, Pharmacy: [facility]/pharmacy #[id number], 170, cm, 05/25/24 10:38:00 EDT, Height/Length Dosing, 84, kg, 05/25/24 10:38:00 EDT, Weight Dosing Start Date: 05/28/24 Status: Ordered estradiol 0.1 mg/ml vaginal cream (6 sources) Estrogen Start: 04-21-2024 End: 05-21-2024 estradiol (Estrace) 0.1 MG/GM vaginal cream Indications: Hormone imbalance Insert 2 g into the vagina Daily Apply 1/2 APPLICATOR daily for 2 weeks 45 g 3 04/21/2024 05/21/2024 Active Start: 02-11-2024 Estradiol (Est race) 0.01 % (0.1 mg/gram) cream Active 1 GM VAGINAL Twice a Week 42.5 February 10, 2024 11:00pm Folate (2 sources) Folate Active lithium carbonate 300 mg oral tablet (20 sources) Start: 11-17-2023 take 3 tablets by mouth at bedtime lithium 300 mg oral tablet 900 mg = 3 tab(s), Oral, Bedtime, Refills(s) 0 Start Date: 11/17/23 Status: Ordered Start: 10-22-2023 lithium ER (Li thobid) 300 MG 12 hr tablet Take 900 mg by mouth Daily 10/22/2023 Active Start: 10-22-2023 End: 10-22-2023 take 3 tablets by mouth three times daily at bedtime Mallard Carbonate 300 mg tablet extended release Active MG PO Three times daily October 22, 2023 8:33am FreeTextSi tablets Orally at HS; Note: Source Status: [id number] mg as needed; Refills: 0; Provider: Asha Cadet ( ) take 3 tablets by mo [facility] at bedtime Mallard Carbonate ER 300 MG 3 tablets Orally at HS for 90 days 900-1200 mg as needed Active take 4 tablets by mo ut every twenty-four hours Mallard Carbonate ER 300 MG 4 tablets Orally Once a day for 90 days 900-1200 mg as needed Active LORazepam 0.5 mg oral tablet (7 sources) Benzodiazepine Start: 12-13-2021 take 1 tablet by mouth every twenty-four hours Ativan 0.5 MG 1 tablet at bedtime as needed Orally Once a day for 10 days f41.1 December, [facility] Ativan 0.5 MG 1 tablet at bedtime as needed Orally Once a day for 4 days f41.1 Active metFORMIN hydrochloride 500 mg oral tablet (2 sources) Biguanide Start: 04-21-2024 End: 04-21-2025 take 1 tablet by mouth at mealtime metFORMIN (Glucophage) 500 MG tablet Indications: Hormone imbalance Take 1 tablet (500 mg) by mouth in the morning. Take with meals. 30 tablet 11 04/21/2024 04/21/2025 Active omeprazole 20 mg delayed release oral capsule (20 sources) Proton Pump Inhibitor Start: 10-22-2023 take 1 capsule by mouth once daily omeprazole 20 mg Cap-DR 20 mg = 1 cap(s), Oral, Daily, Refills(s) 0 Start Date: 11/17/23 Status: Ordered take 1 capsule by mouth before m ealtime omeprazole (PriLOSEC) [address] capsule Take 10 mg by mouth in the morning. Take before meals. Do not crush or chew.. Active Omeprazole OTC A ctive OXcarbazepine 300 mg [...] Yoder ( ) Start: 10-22-2023 End: 10-22-2023 OXcarbazepine (Trileptal) 60 0 MG tablet Once 10/22/2023 Active take 1 tablet by feliberto th once daily, then take 1 tablet by mouth in the morning OXcarbazepine 600 MG take 1 tablet by mouth once daily 1 150mg tablet in the am for 90 days Active phenazopyridine hydrochloride 100 mg oral tablet (1 source) Start: 06-24-2024 End: 06-27-2024 take 1 tablet by mouth three times daily Pyridium 100 mg Tab 100 mg = 1 tab(s), Oral, TID, X 3 day(s), # 9 tab(s), Refills(s) 0, Pharmacy: [facility]/pharmacy #[id number], 174, cm, 06/18/24 15:46:00 EST, Height/Length Dosing, 81.8, kg, 06/18/24 15:46:00 EST, Weight Dosing Start Date: 06/24/24 Stop Date: 06/27/24 Status: Ordered propranolol hydrochloride 10 mg oral tablet (7 [...] by mouth once daily for 90 Active tretinoin 1 mg/ml topical cream (16 sources) Retinoid Start: 11-17-2023 tretinoin Top 0.1% Crm 1 susan, Topical, Once a day (at bedtime), Refill(s) 0 Start Date: 11/17/23 Status: Ordered Start: 10-22-2023 Tretinoin 0.1 % cream Active 1 APPLIC TOPICAL 6 TIMES PER WEEK October 21, 2023 11:00pm venlafaxine (20 sources) Serotonin and Norepinephrine Reuptake Inhibitor Start: 11-17-2023 venlafaxine as directed, Refills(s) 0 Start Date: 11/17/23 Status: Ordered Start: 10-22-2023 venlafaxine XR (Effexor XR) 225 MG 24 hr tablet 1 tablet 10/22/2023 Active Start: 10-22-2023 take 1 tablet by feliberto th once daily at mealtime Venlafaxine 225 mg tablet extended release 24hr Active 1 TAB PO Daily October 21, 2023 11:00pm FreeTextSi tablet with food Orally Once a [...] Not-Taking cyclobenzaprine hydrochloride 10 mg oral tablet (11 sources) Muscle Relaxant Start: 10-22-2023 End: 10-22-2023 take 1 tablet by mouth three times daily as needed Cyclobenzaprine 10 mg tablet Discontinued 10 MG PO Three times daily October 21, 2023 11:00pm October 22, 2023 8:32am FreeTextSi tablet 3 times a day prn; Note: Source Status: Taking; Provider: Asha Cadet ( ) Cyclobenzaprine HCl 10 MG 1 tablet 3 times a day prn Active Iron Fum,Uz-Idevi-Taruu,C No.9 (Iron Folate Plus) 125 mg iron- 1 mg capsule (7 sources) Start: 10-22-2023 End: 10-22-2023 take 1 capsule by mouth once daily at mealtime Iron Fum,Ms-Cdzak-Dzuyb,C No.9 (Iron Folate Plus) 125 mg iron- 1 mg capsule Discontinued 1 CAP PO Daily October 21, 2023 11:00pm October 22, 2023 8:33am administer between meals Start: 10-22-2023 End: 10-22-2023 take 1 capsule by mouth once daily at mealtime Iron Fum,Ce-Qgxxa-Cpwbx,C No.9 (Iron Folate Plus) 125 mg iron- 1 mg capsule Discontinued 1 CAP PO Daily October 22, 2023 12:00am October 22, 2023 9:33am administer between meals melatonin 5 mg oral tablet (20 sources) Start: 09-19-2021 take 1 tablet by mouth once daily in the evening Melatonin 5 MG 1 tablet in the evening Orally Once a day for 30 day(s) Sep, Not-Taking nitrofurantoin, macrocrystals 100 mg oral capsule (2 sources) Nitrofuran Antibacterial Start: 06-04-2024 End: 06-21-2024 take 1 capsule by mouth twice daily at mealtime Nitrofurantoin Macrocrystal 100 mg capsule Discontinued 100 MG PO Twice daily June 03, 2024 11:00pm June 21, 2024 10:50am must administer with a meal/food sulfamethoxazole 800 mg / trimethoprim 160 mg oral tablet (6 sources) Dihydrofolate Reductase Inhibitor Antibacterial, Sulfonamide Antimicrobial Start: 05-19-2024 End: 06-04-2024 take 1 tablet by mouth twice daily Sulfamethoxazole-T rimethoprim (Bactrim Ds) 800-160 mg tablet Discontinued 1 TAB PO Twice daily 21 02May 18, 2024 11:00pm June 04, 2024 11:24am Start: 11-26-2022 take 1 tablet by feliberto th every twelve hours Bactrim DS 800-160 MG 1 tablet Orally Twice a day for 10 day(s) Nov, Active traMADol hydrochloride 50 mg oral tablet (13 sources) Opioid Agonist Start: 10-22-2023 End: 10-22-2023 take 1 tablet by mouth once daily at bedtime as needed Tramadol 50 mg tablet Discontinued 50 MG PO Daily October 21, 2023 11:00pm October 22, 2023 8:33am FreeTextSi tablet as needed Orally Once a day (QHS); Note: Source Status: Taking; Refills: 0; Provider: Asha Reyes Start: 04-01-2023 take 1 tablet by feliberto th once daily at bedtime as needed traMADol HCl 50 MG 1 tablet as needed Orally Once a day (QHS) for 7 days Mar, Active Problems Active Problems Problem Classification Problem Date Documented Date Episodic/Chronic Acute myocardial infarction (6 sources) Myocardial infarction 05-24-2024 Chronic Comment on above: Outside Source Comme nt: Comment on above: 2003 Anxiety disorders (9 sources) Anxiety 11-17-2023 Chronic Disorders of lipid metabolism (9 sources) Hypercholesterolemia 11-17-2023 Chronic Esophageal disorders (6 sources) Gastroesophageal reflux disease 05-24-2024 Chronic Essential hypertension (12 sources) Essential (primary) hypertension; Translations: [Essential hypertension] Onset: 2 11-17-2023 Chronic Genitourinary symptoms and ill-defined conditions (12 sources) Urinary incontinence; Translations: [Unspecified urinary incontinence] Onset: 4 02-11-2024 Chronic Genitourinary symptoms and ill-defined conditions (5 sources) Dysuria; Translations: [Dysuria] Onset: 4 05-19-2024 Episodic Headache; including migraine (6 sources) Migraine 05-24-2024 Chronic Malaise and fatigue (11 sources) Fatigue; Translations: [Other fatigue] Onset: 2 Episodic Menopausal disorders (9 sources) Menopausal and postmenopausal disorders; Translations: [Unspecified menopausal and perimenopausal disorder] Onset: 4 Chronic Mood disorders (20 sources) Bipolar disorder; Translations: [Bipolar disorder, unspecified] Onset: 2 Resolved: 4 Chronic Neoplasms of unspecified nature or uncertain behavior (7 sources) Neoplasm of uncertain behavior of bladder; 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] Onset: 4 Episodic Nonmalignant breast conditions (19 sources) Breast lump; Translations: [Unspecified lump in the right breast, unspecified quadrant] Onset: 4 10-22-2023 Episodic Other acquired deformities (9 sources) Scoliosis deformity of spine 11-17-2023 Chronic Other aftercare (8 sources) H/O: high risk medication; Translations: [Other cooperer (current) drug therapy] Episodic Other aftercare (5 sources) Other cooperer (current) drug therapy; Translations: [OTH BLASTER HELPER CURRENT DRUG THERAPY] Onset: 2 Episodic Other aftercare (2 sources) Long-term current use of drug therapy; Translations: [Other cooperer (current) drug therapy] Episodic Other and ill-defined heart disease (9 sources) Heart disease 11-17-2023 Chronic Other bone disease and musculoskeletal deformities (2 sources) Adolescent idiopathic scoliosis; Translations: [Adolescent idiopathic scoliosis, lumbosacral region] Chronic Other bone disease and musculoskeletal deformities (1 source) Adolescent idiopathic scoliosis, lumbosacral region Chronic Other circulatory disease (2 sources) Elevated blood-pressure reading without diagnosis of hypertension; Translations: [Elevated blood-pressure reading, without diagnosis of hypertension] Episodic Other diseases of bladder and urethra (7 sources) Urethral caruncle; Translations: [Urethral caruncle] Onset: 4 Episodic Other female genital disorders (4 sources) Vaginal dryness; Translations: [Other specified noninflammatory [...] Episodic Other nutritional; endocrine; and metabolic disorders (9 sources) Overweight 11-17-2023 Episodic Other nutritional; endocrine; and metabolic disorders (9 sources) Overweight in adulthood with body mass index of 25 or more but less than 30 11-19-2023 Episodic Other screening for suspected conditions (not mental disorders or infectious disease) (14 sources) Encounter for screening mammogram for malignant neoplasm of breast; Translations: [Ultrasonography of breast abnormal] Onset: 3 Episodic Other skin disorders (16 sources) Acne; Translations: [Acne, unspecified] 10-22-2023 Episodic Other skin disorders (2 sources) Acne, unspecified; Translations: [Other acne] 10-22-2023 Episodic Otitis media and related conditions (2 sources) Non-suppurative otitis media; Translations: [Unspecified nonsuppurative otitis media, left ear] Episodic Prolapse of female genital organs (7 sources) Cystocele; Translations: [Cystocele, unspecified] Onset: 4 Chronic Residual codes; unclassified (6 sources) Sleep apnea 05-24-2024 Chronic Residual codes; unclassified (1 source) Family history of malignant neoplasm of breast; Translations: [FAMILY HX MALIG NEOPLASM OF BREAST] Onset: 3 Episodic Residual codes; unclassified (1 source) Family history of malignant neoplasm of digestive organs; Translations: [FAM HX MALIG NEOPLASM DIGESTIV ORGN] Onset: 3 Episodic Residual codes; unclassified (2 sources) Tobacco user; Translations: [Tobacco use] Episodic Residual codes; unclassified (9 sources) Chronic pain 11-17-2023 Episodic Spondylosis; intervertebral disc disorders; other back problems (8 sources) Solitary sacroiliitis; Translations: [Sacroiliitis, not elsewhere classified] Chronic Unclassified (3 sources) LOW BACK PAIN, UNSPECIFIED; Translations: [LOW BACK PAIN, UNSPECIFIED] Onset: 3 Urinary tract infections (11 sources) Urinary tract infectious disease; Translations: [Urinary tract infection, site not specified] Onset: 4 05-19-2024 Episodic Past or Other Problems Problem Classification Problem Date Documented Da te Episodic/Chronic Other non-traumatic joint disorders (2 sources) Pain in right hip joint; Translations: [Pain in right hip] Onset: 04-22-2023 04-22-2023 Episodic Spondylosis; intervertebral disc disorders; other back problems (9 sources) Radiculopathy, lumbar region; Translations: [Lumbar radiculopathy] Onset: 04-22-2023 Episodic Unclassified (1 source) Lumbar pain M54.50 Unclassified (1 source) Other low back pain M54.59 Unclassified (1 source) LOW BACK PAIN, UNSPECIFIED; Translations: [LOW BACK PAIN, UNSPECIFIED] Onset: 12-06-2022 Results Test Name Value Interpretation Reference Range Facility Ambulatory Visit Summaryon 1 09-04-2023 Ambulatory Visit Summary Ambulatory Visi t Summary RAIN SWEENEY :1960 Visit Date:07/05/2024 Ambulatory Visit Instructions Your Diagnosis Bladder neoplasm of uncertain malignant potential Stress incontinence Urethral caruncle Atrophic vaginitis Cystocele with rectocele Your Care Team Attending Physician - HAMILTON MALONE MD Primary Care Physician - SEB BARRY MD This Is Your Medications List Contact prescribing physician if questions or concerns lithium (lithium 300 mg oral tablet) omeprazole (omeprazole 20 mg Cap-DR) oxcarbazepine (oxcarbazepine 300 mg Tab) tretinoin topical (tretinoin Top 0.1% Crm) venlafaxine Procedures Performed Cystoscopy (06/24/2024), History of augmentation of breast, History of bilateral breast implants, History of nasal sinus surgery, Stapedectomy, Tubal ligation. Discharge Vitals Heart Rate (Peripheral) 109 Blood Pressure 155/90 Height 170 cm Height 67 in Weight 84 kg Weight 185.188 lb BMI 29.07 What to do next Scheduled Follow-Up Appointments Friday 10:00 AM EST Where: [facility] 2023 8:00 AM EST Where: [facility] You Need to Schedule the Following Appointments Follow Up with GABBY RAMIREZ, JAYY VILLASENOR When: Where: Medications What How Much When Instructions Unchanged lithium (lithium 300 mg oral tablet) [...] prescribing physician if questions or concerns Allergies penicillin (Hives) Problems Ongoing - Any problem that you are currently receiving treatment for. Acne Anxiety Atrophic vaginitis Bladder neoplasm of uncertain malignant potential BMI 28.0-28.9,adult Chronic depression Chronic pain Cystocele with rectocele Essential hypertension Gastroesophageal reflux disease Heart disease Hypercholesterolemia Lesion of right nipple Lumbar radiculopathy Migraine Myocardial infarction Overweight Scoliosis of lumbosacral spine Sleep apnea Stress incontinence Urethral caruncle Historical - Any problem that you are no longer receiving treatment for. Bipolar disorder Patient Survey You may receive a survey via text or e-mail asking about your office visit. Please share your experience with us by completing your survey. We appreciate your feedback and thank you for choosing us for your care. Education Materials Urethral Vaginal Sling A urethral vaginal sling procedure is surgery to correct urinary incontinence. Urinary incontinence is passing urine without one's control. It is common in older women and in women who have had children. In this surgery, a strong piece of material is placed under the tube that drains the bladder (urethra). This sling is made of tension-free vaginal tape or nylon mesh. It fits under the urethra like a hammock. The sling is put in position to straighten, support, and hold the urethra in its normal position. Tell a health care provider about: ??? Any allergies you have. ??? All medicines you are taking, including vitamins, herbs, eye drops, creams, and wdmk-nvl-pbttgmv medicines. ??? Any problems you or family members have had with anesthetic medicines. ??? Any blood disorders you have. ??? Any surgeries you have had. ??? Any medical conditions you have. ??? Whether you are or may be . What are the risks? Generally, this is a safe procedure. However, problems may occur, including: ??? Infection. ??? Excessive bleeding. ??? Allergic reactions to medicines. ??? Damage to nearby structures or organs. ??? Problems urinating for several days or weeks. ??? Return of the urinary incontinence. ??? Mesh failure. Be sure to talk with your health care provider about the options you have for sling material and the risks associated with each material. What happens before the procedure? Staying hydrated Follow instructions from your health care provider about hydration, which may include: ??? Up to 2 hours before the procedure ??? you may continue to drink clear liquids, such as water, clear fruit juice, black coffee, and plain tea. Eating and drinking restrictions Follow instructions from your health care provider about eating and drinking, which may include: ??? 8 hours before the procedure ??? stop eating heavy meals or foods, such (more content not included)... [facility] Reminderson 07-05-2024 Reminders Reminders - From: Dorothy Castro To: SERENA - Shanta Maharaj; Sent: 07/05/2024 10:04:30 EST Show up: 08/04/2024 10:04:00 EST Subject: Cysto Due Date/Time: 08/04/2024 10:04:00 EST Reminder Message Cysto in 3 mos. [facility] Urology Office/Clinic Noteon 07-05-2024 Urology Office/Clinic Note Urology Office/Clinic Note Chief Complaint follow up [facility] Staff 63 year old female here for F/U to cystoscopy, pelvic exam, bladder biopsy and fulguration done 06/24/24 Previous DX:stress incontinence, bladder neoplasm of uncertain malignant, atrophic vaginitis, urethral caruncle and cystocele with rectocele Start estrogen cream, apply pea-sized amount 2-3 times per week. Patient denies any urinary issues since surgery. States she has intermittent back pain but is chronic. History of Present Illness Tests reviewed: reviewed UA and path. I have reviewed the previous health record information and history for this patient from Dr. Maharaj I have reviewed and verified the staff HPI to be accurate for this encounter. There have been no associated fever, chills, flank pain, or blood in the urine. Denies any urinary infections since last encounter. Review of Systems PHQ Score Initial Depression Screen Score: 3 SCORE ROS - Provider Constitutional: denies weight loss, denies hot flashes. Eyes: denies eye problems. Gastrointestinal: denies nausea, denies vomiting. Cardiovascular: denies chest pain or angina. Integumentary: no dryness Musculoskeletal: denies musculoskeletal symptoms. ENMT: denies otolaryngeal symptoms. Respiratory: no shortness of breath. Heme/Lymph: denies easy bleeding tendency, denies easy bruising tendency. Psychiatric: no confusion, no anxiety. Genitourinary: See HPI. Physical Exam Vitals & Measurements HR: 109(Peripheral) BP: 155/90 HT: 67 in HT: 170 cm WT: 84 kg WT: 185.188 lb BMI: 29.07 General Appearance: alert , no acute distress, well nourished, well developed female. Assessment/Plan Portions of this record may have been created with voice recognition artificial intelligence software, specifically [email or web address], Mi[employer]io and or Mob[email or web address]. Substitutions may have occurred due to the inherent limitations of voice recognition and artificial intelligence software. 1. Bladder neoplasm of uncertain malignant potential (D41.4: Neoplasm of uncertain behavior of bladder) S/p cysto 06/11/24 - on the posterior bladder wall, there is a small pedunculated tumor that we will do a cysto/bx. S/p cysto, pelvic exam, bladder biopsy and fulguration 06/24/24. Findings ~Small frenular posterior bladder wall wall tumor biopsied with cold cup and fulgurated with excellent hemostasis at conclusion of procedure, total vaginal length 8.5cm, stage 3 anterior wall prolapse Path ~urothelial epithelial proliferation with atypia of indeterminate significance (see comment) Comment: Flat and thickened urothelial epithelium demonstrates patchy increase of p53 and CK20 expression, associated with moderate active chronic inflammation, compatible with rendered diagnosis. Differential diagnosis includes early noninvasive low grade papillary neoplasm or papillary cystitis. No invasive or high grade disease is identified. No muscularis propria is present. Discussed results with pt. Recommended cystoscopy in 3 months. Pt agrees with plan. -Cysto in 3 mos, reminder placed 2. Stress incontinence (N39.3: Stress incontinence (female) (male)) Baseline BBSQ 5 Exam at cysto 06/11/24 - Bladder and rectal prolapse with severe STACIA with coughing Leaks urine with daily activities. For example, when she is picking up granddaughter, getting out of car, sliding down slide, laughing, ect. Had urethral bulking about 8 yrs ago at another facility. This worked great until the past 6-12 mos. [1] UA today shows trace-intact blood and trace leuks. Pt states I want it fixed . Discussed proceeding with sling. The procedural risks, benefits, details, and treatment alternatives have been discussed with the patient. These include bleeding, infection, failure of the procedure with continued urinary leakage ??? both immediately or in the future, inability to void with need for indwelling catheter or in/out catheter, and injury to blood vessels, nerves, and other internal organs. Also discussed was the possibility of mesh erosion with need for additional procedures, as well as the rare risk of chronic pelvic pain after the procedure. -Will schedule TVT sling. Full informed consent has been obtained. Will order Mac anes 3. 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 Started on Estrace cream at that time. See #4. 4. Atrophic vaginitis (N95.2: Postmenopausal atrophic vaginitis) Started on Estrace cream at the time of cysto. Does not appear script was sent. 5. Cystocele with rectocele (N81.10: Cystocele, unspecified) Exam at cysto 06/11/24 - Bladder and rectal prolapse with severe STACIA with coughing Discussed rectocele repair. Counseled pt on possible risks which include anesthesia, wound infection, bleeding, blood clots, chest infection, UTI, allergic reactions, recurrence of prolapse, among others. Discussed the recovery. -Will schedule rectocele repair Cystoscopy with bladder b (more content not included)... [facility] Comment on above: Result Comment: Elec tronically Signed By: GABBY RAMIREZ, HAMILTON\.br\Date and Time Signed: 07/05/24 10:33 EST\.br\Electronically Co-Signed By: Dorothy Castro\ayden\Date and Time Co-Signed: 07/05/24 10:14 EST Surgical Pathology Reporton 07-01-2024 Surgical Pathology Report [facility] [address] [place] [address]- Surgical Pathology Report Collected Date/Time: 06/24/2024 08:47 EST Pathologist: Dudley RAMIREZ PhD, Laurel Osorio Received Date/Time: 06/24/2024 09:27 EST GABBY RAMIREZ, GABBY RAMIREZ, HAMILTON VILLASENOR 07 Surgical Pathology Report - 07/01/2024 12:33 EST - Auth (Verified) Final Diagnosis BLADDER TUMOR, BIOPSY: - UROTHELIAL EPITHELIAL PROLIFERATION WITH ATYPIA OF INDETERMINATE SIGNIFICANCE (SEE COMMENT). Comment: Flat and thickened urothelial epithelium demonstrates patchy increase of p53 and CK20 expression, associated with moderate active chronic inflammation, compatible with rendered diagnosis. Differential diagnosis includes early noninvasive low grade papillary neoplasm or papillary cystitis. No invasive or high grade disease is identified. No muscularis propria is present. 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 Specimen is entirely submitted in one cassette. (DC) DC:[facility] Microscopic Description Microscopic examination performed unless gross only specified. The use of one or more reagents in the above tests is regulated as an analyte specific reagent (ASR). The test or tests are ordered following initial H&E microscopic examination. The performance characteristics were determined by the Laboratory of [facility] Surgical Pathology. They have not been cleared or approved by the US Food and Drug Administration. The FDA has determined that such clearance or approval is not necessary. These tests are used for clinical purposes. They should not be regarded as investigational or for research. Appropriate positive and negative controls are performed and are acceptable. This report was transcribed using voice recognition technology and might contain unintended computerized brazer furnace errors. [facility] Comment on above: Performed By: #### [id number] #### [facility] [address] [place] [address] Main OR Intraoperative Recor don 06-25-2024 Main OR Intraoperative Record Main OR Intraoperative Record IntraOp Document Type FT Summary Primary Physician: HAMILTON MALONE MD Finalized Date/Time: 06/25/24 10:12:31 Pt. Name: RAIN SWEENEY LEYDA HaqO.B./Sex: 1960 Female Med Rec #: [id number] Physician: HAMILTON MALONE MD Financial #: [id number] Pt. Type: A Room/Bed: [place] [address] Admit/Disch: 06/24/24 06:38:13 - 06/24/24 10:15:00 Institution: Case Times FT Entry 1 Patient Times In Room 06/24/24 08:25:00 Out Room 06/24/24 08:46:00 Procedure Times Start 06/24/24 08:33:00 Stop 06/24/24 08:38:00 Anesthesia Times Start 06/24/24 08:25:00 Stop 06/24/24 08:46:00 Last Modified By: Amina Vidales RN 06/24/24 08:49:24 General Comments: 06/25/24 Chart opened to review and send charges LRoth CSFA Case Attendance FT Entry 1 Entry 2 Entry 3 Case Attendee Shannen SEARS, Azam MALONE MD, Mey SUNG, Dolores Cooney Role Performed Anesthesiologist Surgeon - Primary Traveling Phlebotomist - Primary Aquarium Tank Attendant Time In 06/24/24 08:25:00 06/24/24 08:32:00 06/24/24 08:25:00 Time Out 06/24/24 08:46:00 06/24/24 08:39:00 06/24/24 08:46:00 Procedure CYSTOSCOPY TURB(.) CYSTOSCOPY TURB(.) CYSTOSCOPY TURB(.) Comments DR. AGUILAR SUPERVISING Last Modified By: Amina Vidales RN, RN, Leann E Flash RN, Amina Reyes 06/24/24 08:57:51 06/24/24 08:57:51 06/24/24 08:57:51 Entry 4 Entry 5 Entry 6 Case Attendee Flash SUNG, Gertrude Stallworth Terry T Role Performed Traveling Phlebotomist - Primary Scrub - Primary Staff - Other Time In 06/24/24 08:25:00 06/24/24 08:25:00 06/24/24 08:40:00 Time Out 06/24/24 08:46:00 06/24/24 08:46:00 06/24/24 08:46:00 Procedure CYSTOSCOPY TURB(.) CYSTOSCOPY TURB(.) CYSTOSCOPY TURB(.) Comments ROOM TURNOVER HELP Last Modified By: Flash RNAmina RN, Amina Vidales RN, Amina Reyes 06/24/24 08:57:51 06/24/24 08:57:51 06/24/24 08:57:51 Perioperative Protocols FT Pre-Care Text: Implements protective measures prior to operative or invasive procedure, confirms identity before the operative or invasive procedure, verifies operative procedure, surgical site, and laterality Entry 1 Procedure(s) CYSTOSCOPY TURB(.) Patient Identity Birthday, ID Band Verified (select at Check, Other/See least 2): Comments Consents / H and P Anesthesia Consent, Operative Site N/A Verified H&P, Surgery/Procedure Marking Verified Consent, Transfusion Consent Surgical Site Yes Laterality Verified n/a Verified Procedure Verified Yes Correct Patient Yes Position Verified Availability Equipment, Medication Prep Dry n/a Verified (If Applicable) PreOp Antibiotic Yes Time Out Azam Kohli NKANSAH-AMANKRA MD, Mey VILLASENOR RN, Flash Estrada RN, Elaina Mercado Sydney A Time Out Complete 06/24/24 08:32:00 Outcomes Met? Yes Last Modified By: Amina Vidales RN 06/24/24 08:50:36 Post-Care Text: The patient is free from signs and symptoms of injury caused by extraneous objects Allergy Information FT Pre-Care Text: Verifies allergies Entry 1 Allergies Reviewed? Yes Allergies Reviewed Self/Patient With Outcomes Met? Yes Last Modified By: Amina Vidales RN 06/24/24 08:50:42 Post-Care Text: The patient received appropriate medication(s) safely administered during the perioperative period Surgical Procedures FT Entry 1 Procedure Description Procedure CYSTOSCOPY TURB Modifiers . Surgeon Description CYSTOSCOPY WITH BLADDER BIOPSY WITH FLUGURATION Primary Procedure Yes Primary Surgeon HAMILTON MALONE MD Start 06/24/24 08:33:00 Stop 06/24/24 08:38:00 Anesthesia Type General Surgical Service Anesthesia Wound Class 2 - Clean-Contaminated Last Modified By: Amina Vidales RN 06/24/24 08:52:07 General Case Data FT Pre-Care Text: Classifies surgical wound, implements aseptic technique, initiates traffic control Entry 1 Case Information OR OR 1 FT Case Level Level 3 Wound Class 2 - Clean-Contaminated Specialty Anesthesia ASA Class 3 Preop Diagnosis STRESS INCONTINENCE, Postop Same As Preop Yes BLADDER NEOPLASM, CYSTOCELE WITH RECTOCELE Postop Diagnosis STRESS INCONTINENCE, Outcomes Met? Yes BLADDER NEOPLASM, CYSTOCELE WITH RECTOCELE Last Modified By: Amina Vidales RN 06/24/24 08:52:19 Post-Care Text: The patient is free from signs and symptoms of infection Skin Assessment (Pre Procedure) FT Pre-Care Text: Implements protective measures to prevent skin/ tissue injury due to thermal or mechanical sources Evaluates for signs and symptoms of physical injury to skin and tissue Entry 1 Skin Integrity Intact, Sloan, Warm, & Skin Abnormality No Dry Outcomes Met? Yes Last Modified By: Amina Vidales RN 06/24/24 08:52:26 Post-Care Text: The patient is free from signs and symptoms of injury caused by extraneous objects Patient Positioning FT Pre-Care Text: Identifies physical alterations that require additional preca (more content not included)... [facility] Discharge Instructionson Discharge Instructions Discharge Instructions RAIN SWEENEY :1960 Visit Date:06/24/2024 Inpatient Discharge Instructions Your Care Team Admitting Physician - HAMILTON MALONE MD Referring Physician - HAMILTON MALONE MD Reason for Your Visit STRESS INCONTINENCE, BLADDER NEOPLASM, CYSTOCELE WITH RECTOCELE Your Diagnosis Bladder tumor Tests Performed Pathology Tissue Exam -- Results Pending -- Please visit your patient portal for your results or contact your primary care physician. This Is Your Medications List lithium (lithium 300 mg oral tablet) omeprazole (omeprazole 20 mg Cap-DR) oxcarbazepine (oxcarbazepine 300 mg Tab) phenazopyridine (Pyridium 100 mg Tab) tretinoin topical (tretinoin Top 0.1% Crm) venlafaxine Procedure History History of augmentation of breast, History of bilateral breast implants, History of nasal sinus surgery, Stapedectomy, Tubal ligation. What to do next Instructions From Your Doctor Event Name Event Result Discharge Instructions Freetext bleeding is Suspected for the next couple days. This should start to clear up. Hydrating with a least 2 L/day, pain control with Tylenol and Motrin. Take Pyridium for pain when voiding. Follow-up in the office in 2 weeks to discuss next steps. Discharge Activity Ambulate as tolerated Discharge Restrictions No driving for 24 hrs Discharge Diet(s) Regular Call Your Doctor For Persistent or heavy bleeding, Temperature above 101.5 degrees Discharge Instructions Discharge Instructions New Follow Up Appointments after Discharge Follow Up with HAMILTON MALONE When: Comments: in 2 weeks Where: [address] [place] [address]- [phone] Business (1) Medications What How Much When Instructions Next Dose New phenazopyridine (Pyridium 100 mg Tab) 1 Tablets By Mouth 3 times a day Duration: 3 Days Pickup at [facility]/pharmacy #[id number] Unchanged lithium (lithium 300 mg oral tablet) 3 Tablets By Mouth At bedtime Unchanged omeprazole (omeprazole 20 mg Cap-DR) 1 Capsules By Mouth Every day Unchanged oxcarbazepine (oxcarbazepine 300 mg Tab) 1 Tablets By Mouth Every day Unchanged tretinoin topical (tretinoin Top 0.1% Crm) 1 Application Topical Once a day (at bedtime) Unchanged venlafaxine as directed Pharmacy Information [facility]/pharmacy #[id number]: [address], [place] [phone] [phone] Education [employer] Cystoscopy ??? Voiding after the procedure: there may be some pain, burning, urgency, frequency and blood tinged urine following the procedure. These symptoms usually resolve within 2-5 days. Drink the amount of fluid it takes to keep the urine pink to yellow or clear in color. Drinking enough water and fluids will help to ease any discomfort after your procedure. ??? If you are having problems that seem out of the ordinary, please call. ??? If unable to contact your physician and you feel it is an emergency, go to the nearest emergency room or call 911 ??? Diet ??? you may resume your normal diet. ??? Activity ??? you may resume your normal activities ??? Call if you have a fever over 100 degrees. Common Emergency Awareness Tips IS IT A STROKE? Act FAST and Check for these signs: FACE Does the face look uneven? ARM Does one arm drift down? SPEECH Does their speech sound strange? TIME Call at any sign of stroke Heart Attack Signs Chest discomfort: Most heart attacks involve discomfort in the center of the chest and lasts more than a few minutes, or goes away and comes back. It can feel like uncomfortable pressure, squeezing, fullness or pain. Discomfort in upper body: Symptoms can include pain or discomfort in one or both arms, back, neck, jaw or stomach. Shortness of breath: With or without discomfort. Other signs: Breaking out in a cold sweat, nausea, or lightheaded. Remember, MINUTES DO MATTER. If you experience any of these heart attack warning signs, call to get immediate medical attention! Patient Survey You may receive a survey in the mail asking you about your stay with us. We want to hear from you, please share your experience with us by completing your survey. Thank you for choosing [facility]. Veto Award Nomination The VETO (Diseases Attacking the Immune SYstem) Award is an international recognition program that honors and celebrates the skillful, compassionate care nurses provide every day. Anyone who experiences or observes amazing care being provided by a nurse is encouraged to submit a nomination. To nominate your nurse, use your smart phone to scan the QR code below. Patient Portal You may access all of your results and other medical record information on our secure patient portal. If you are not signed up for this yet, please contact [employer] at [phone] to get signed up today. Patient (more content not included)... [facility] Comment on above: Result Comment: Elec tronically Signed By: Chayo SUNG, Reed Brandon\.marian\Date and Time Signed: 06/24/24 08:53 EST Inpatient Patient Summaryon 06-24-2024 Inpatient Patient Summary Inpatient Patient Summary [place] [id number] [facility] Clinical Discharge Instructions PERSON INFORMATION Name: RAIN SWEENEY PHYSICIANS Admitting Physician: HAMILTON MALONE MD Attending Physician: HAMILTON MALONE MD PCP: ASHA RAMIREZ, SEB Discharge Diagnosis: Comment: PATIENT EDUCATION INFORMATION Instructions: Medication Leaflets: Follow up: MEDICATION LIST Medications to Continue with No Changes Other Medications lithium (lithium 300 mg oral tablet) 3 Tablets By Mouth at bedtime. omeprazole (omeprazole 20 mg Cap-DR) 1 Capsules By Mouth every day. oxcarbazepine (oxcarbazepine 300 mg Tab) 1 Tablets By Mouth every day. tretinoin topical (tretinoin Top 0.1% Crm) 1 Application Topical once a day (at bedtime). venlafaxine as directed. Comment: [facility] Main OR PACU I Recordon 06-11 Main OR PACU I Record Main OR PACU I Record PACU Phase I Document Type FT Summary Primary Physician: HAMILTON MALONE MD Finalized Date/Time: 06/24/24 09:24:28 Pt. Name: TESFAYERAIN OTERO LEYDA Anderson./Sex: 1960 Female Med Rec #: [id number] Physician: HAMILTON MALONE MD Financial #: [id number] Pt. Type: A Room/Bed: [place] [address] Admit/Disch: 06/24/24 06:38:13 - Institution: Case Times PACU I FT Pre-Care Text: Identifies barriers to communication and implements measures to provide psychological support Develops individualized plan of care, and ensures continuity of care Maintains patient's dignity and privacy, and maintains patient confidentiality Identifies and reports philosophical, cultural, and spiritual beliefs and values Identifies individual values and wishes concerning care Implements aseptic technique, and administers prescribed antibiotic therapy and immunizing agents as ordered Evaluates postoperative tissue perfusion Implements thermoregulation measures, and monitors body temperature Evaluates postoperative respiratory status Evaluates postoperative cardiac status Evaluates postoperative neurological status Assesses pain control, collaborated in initiating patient-controlled analgesia and implements alternative methods of pain control Verifies allergies, administers prescribed medications and solutions, evaluates response to medications Entry 1 In PACU I 06/24/24 08:48:00 Discharge from PACU 06/24/24 09:18:00 I Outcomes Met? Yes Last Modified By: Carli Good RN 06/24/24 09:24:16 Post-Care Text: The patient demonstrates knowledge of the expected response to the operative or invasive procedure The patient's care is consistent with the individualized perioperative plan of care The patient's right to privacy is maintained The patient's value system, lifestyle, ethnicity, and culture are considered, respected, and incorporated into the perioperative plan of care The patient participates in decisions affecting his or her perioperative plan of care The patient is free from signs and symptoms of infection The patient has wound/tissue perfusion consistent with or improved from baseline levels established preoperatively The patient is at or returning to normothermia at the conclusion of the immediate postoperative period The patient's respiratory function is consistent with or improved from baseline levels established preoperatively The patient's cardiovascular status is consistent with or improved from baseline levels established preoperatively The patient's cardiovascular status is consistent with or improved from baseline levels established preoperatively The patient demonstrates and/or reports adequate pain control throughout the perioperative period The patient received appropriate medication(s), safely administered during the perioperative period Acuity Level PACU I FT Entry 1 Start Time 06/24/24 08:48:00 Stop Time 06/24/24 09:18:00 Acuity Level Acuity Level I Last Modified By: Carli Good RN 06/24/24 09:24:23 Finalized By: Carli Good RN Document Signatures Signed By: Carli Good RN 06/24/24 09:24 [facility] Main OR PACU II Recordon Main OR PACU II Record Main OR PACU II Record PACU Phase II Document Type FT Summary Primary Physician: HAMILTON MALONE MD Finalized Date/Time: 06/24/24 10:19:29 Pt. Name: RAIN SWEENEY Hiwot/Sex: 1960 Female Med Rec #: [id number] Physician: HAMILTON MALONE MD Financial #: [id number] Pt. Type: A Room/Bed: [place] [address] Admit/Disch: 06/24/24 06:38:13 - Institution: Case Times PACU II FT Pre-Care Text: Identifies barriers to communication and implements measures to provide psychological support and determines knowledge level Develops individualized plan of care, and ensures continuity of care Maintains patient's dignity and privacy, and maintains patient confidentiality Identifies and reports philosophical, cultural, and spiritual beliefs and values Identifies individual values and wishes concerning care administers prescribed antibiotic therapy and immunizing agents as ordered, Evaluates postoperative tissue perfusion Implements thermoregulation measures, and monitors body temperature Evaluates postoperative respiratory status Evaluates postoperative cardiac status Evaluates postoperative neurological status Assesses pain control, collaborated in initiating patient-controlled analgesia and implements alternative methods of pain control Verifies allergies, administers prescribed medications and solutions, evaluates response to medications Entry 1 In PACU II 06/24/24 09:15:00 Discharge from PACU 06/24/24 10:15:00 II Last Modified By: Chayo SUNG, Reed Brandon 06/24/24 10:19:27 Post-Care Text: The patient demonstrates knowledge of the expected response to the operative or invasive procedure The patient's care is consistent with the individualized perioperative plan of care The patient's right to privacy is maintained The patient's value system, lifestyle, ethnicity, and culture are considered, respected, and incorporated into the perioperative plan of care The patient participates in decisions affecting his or her perioperative plan of care. The patient is free from signs and symptoms of infection The patient has wound/tissue perfusion consistent with or improved from baseline levels established preoperatively The patient is at or returning to normothermia at the conclusion of the immediate postoperative period The patient's respiratory function is consistent with or improved from baseline levels established preoperatively The patient's cardiovascular status is consistent with or improved from baseline levels established preoperatively The patient's neurological status is consistent with or improved from baseline levels established preoperatively The patient demonstrates and/or reports adequate pain control throughout the perioperative period The patient received appropriate medication(s), safely administered during the perioperative period Finalized By: Reed Domingo RN Document Signatures Signed By: Reed Domingo RN 06/24/24 10:19 [facility] Main OR Preoperative Recordo n 06-24-2024 Main OR Preoperative Record Main OR Preoperative Record PreOp Document Type FT Summary Primary Physician: HAMILTON MALONE MD Finalized Date/Time: 06/24/24 08:58:11 Pt. Name: RAIN SWEENEY /Sex: 1960 Female Med Rec #: [id number] Physician: HAMILTON MALONE MD Financial #: [id number] Pt. Type: A Room/Bed: [place] [address] Admit/Disch: 06/24/24 06:38:13 - Institution: Case Times PreOp FT Pre-Care Text: Verifies consent for planned procedure, identifies individual values and wishes concerning care, includes family members in perioperative teaching Entry 1 Patient Times. In Pre Surgery 06/24/24 07:00:00 Out Pre Surgery 06/24/24 08:23:00 Outcomes Met? 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 Upon cystoscopy in the office she was noted to have a small bladder tumor on the posterior bladder wall concerning for malignancy and thus she was booked for the aforementioned procedure. H&P was reviewed, informed consent was obtained, patient understood risk, benefits, alternatives of the procedure and wished to proceed. OPERATIVE DETAIL: Patient was brought to the operative suite and placed on continuous pulse oximetry and cardiac monitoring by anesthesia. IV antibiotics including 2 g of Ancef was administered. She was then placed in the dorsolithotomy position and prepped and draped in normal sterile fashion. Timeout was performed confirming patient, procedure, side, all in the room agreed. A well-lubricated 22 Singaporean cystoscopic sheath with a 30 degree lens was inserted into the urethral meatus and advanced into the bladder. Upon entering the bladder we did a cystoscopy and findings as noted above. We then obtained the cold cup biopsy forcep and grasped the posterior frondular tumor in totality. This was then sampled adequately and sent in formalin. We then obtained the Bugbee electrode and fulgurated the spot. Hemostasis was excellent. The patient bladder was then emptied. We then did a pelvic exam that showed a stage III anterior wall prolapse with total vaginal length of 8-1/2 cm. This concluded the procedure. Patient was then awakened by anesthesia and transferred to PACU in stable condition. PLAN: Follow-up with me in 2 weeks discuss pathology, next steps Normal [facility] Comment on above: Result Comment: Elec tronically Signed By: GABBY RAMIREZ, HAMILTON\.marian\Date and Time Signed: 06/24/24 08:47 EST Outpatient Surgery Discharge Instructionon 06-24-2024 Outpatient Surgery Discharge Instruction Outpatient Surgery Discharge Instruction [address] [address] Patient Discharge Instructions PERSON INFORMATION Name: RAIN SWEENEY Date of : 1960 Current Date: 06/24/2024 08:04:49 PHYSICIANS Admitting Physician: GABBY RAMIREZ, HAMILTON Discharge Diagnosis: RAIN SWEENEY has been given the following list of follow-up instructions, prescriptions, and patient education materials: IF UNABLE TO CONTACT YOUR PHYSICIAN AND YOU FEEL IT IS AN EMERGENCY, GO TO THE NEAREST EMERGENCY ROOM OR CALL 911 TESFAYE ColinBRANDENRAIN, have received the attached patient education materials/instructio ns and have verbalized understanding: May we do a follow up call? Yes No I was present when discharge instructions were given Patient Signature Date Clinican/Nurse Signature Date Follow up: Pharmacy Information: You may receive a survey from Angelina Betancourt asking you to rate your care experience. Your feedback is important and will help us understand what we do well and how we can improve the quality of care we provide to you, your loved ones and our community. It???s an honor to serve you. Thank you for choosing [facility] HERE ARE THE MEDICATION CHANGES THAT OCCURRED DURING YOUR HOSPITAL STAY Medications to Continue with No Changes Other Medications lithium (lithium 300 mg oral tablet) 3 Tablets By Mouth at bedtime. omeprazole (omeprazole 20 mg Cap-DR) 1 Capsules By Mouth every day. oxcarbazepine (oxcarbazepine 300 mg Tab) 1 Tablets By Mouth every day. tretinoin topical (tretinoin Top 0.1% Crm) 1 Application Topical once a day (at bedtime). venlafaxine as directed. PATIENT EDUCATION INFORMATION Instructions: Medication Leaflets: Normal [facility] XR Chest 2 Viewson XR Chest 2 Views Exam Date/Time: 06/18/2024 16:08 EST Reason for Exam: P.A.T. Report IMPRESSION: NO RADIOGRAPHIC EVIDENCE OF ACUTE INTRATHORACIC PROCESS. EXAMINATION: XR Chest 2 Views HISTORY: Preoperative evaluation TECHNIQUE: Frontal and lateral views of the chest. COMPARISON: None available FINDINGS: Cardiomediastinal silhouette is within normal limits. No pneumothorax, pleural effusion, or consolidation. No acute osseous abnormality. Ordering Provider: Valdo Aguilar FINAL REPORT Dictated: 06/19/2024 2:39 pm Azam Hartman DO Signed (Electronic Signature): 06/19/2024 2:39 pm Signed by: Azam Hartman DO Transcribed by: TOBIN Technologist: ZARINA Technical Comments Radiation Dose: Ka,r in mGy = . DAP = . Normal [facility] BMPon 06-18-2024 Anion gap [Moles/Vol] 11 mmol/L Normal 6-16 [facility] Comment on above: Performed By: #### 2 [id number] #### [facility] [address] [place] [address] Calcium [Mass/Vol] 8.7 mg/dL Low 8.9-11.1 [facility] Comment on above: Performed By: #### 2 [id number] #### [facility] [address] [place] [address] Chloride [Moles/Vol] 105 mmol/L Normal 101-111 [facility] Comment on above: Performed By: #### 2 [id number] #### [facility] [address] [place] [address] CO2 [Moles/Vol] 26 mmol/L Normal 21-31 [facility] Comment on above: Performed By: #### 2 [id number] #### [facility] [address] [place] [address] Creatinine [Mass/Vol] 1.0 mg/dL Normal 0.5-1.3 [facility] Comment on above: Performed By: #### 2 [id number] #### [facility] [address] [place] [address] Glucose [Mass/Vol] 89 mg/dL Normal 55-199 [facility] Comment on above: Performed By: #### 2 [id number] #### [facility] [address] [place] [address] Potassium [Moles/Vol] 4.0 mmol/L Normal 3.5-5.3 [facility] Comment on above: Performed By: #### 2 [id number] #### [facility] [address] [place] [address] Sodium [Moles/Vol] 138 mmol/L Normal 135-145 [facility] Comment on above: Performed By: #### 2 [id number] #### [facility] [address] [place] [address] Urea nitrogen [Mass/Vol] 18 mg/dL Normal 5-21 [facility] Comment on above: Performed By: #### 2 [id number] #### [facility] [address] [place] [address] Urea nitrogen/Creatinine [Mass ratio] 18 No Units Normal 10-20 [facility] Comment on above: Performed By: #### 2 [id number] #### [facility] [address] [place] [address] CBC w/ Auto Diffon 4 Basophils/100 WBC (Bld) 0.9 % Normal 0.0-2.0 [facility] Comment on above: Performed By: #### 2 [id number] #### [facility] [address] [place] [address] Basophils/Leukocytes Auto (Bld) [Pure # fraction] 0.1 E9/L Normal 0.0-0.2 [facility] Comment on above: Performed By: #### 2 [id number] #### [facility] [address] [place] [address] Eosinophils (Bld) [#/Vol] 0.3 E9/L Normal 0.0-0.5 [facility] Comment on above: Performed By: #### 2 [id number] #### [facility] [address] [place] [address] Eosinophils/100 WBC (Bld) 4.5 % Normal 0.0-8.0 [facility] Comment on above: Performed By: #### 2 [id number] #### [facility] [address] [place] [address] Erythrocyte distribution width (RBC) [Ratio] 15.1 % High 10.9-14.2 [facility] Comment on above: Performed By: #### 2 [id number] #### [facility] [address] [place] [address] Hematocrit (Bld) [Volume fraction] 46.2 % High 34.0-46.0 [facility] Comment on above: Performed By: #### 2 [id number] #### [facility] [address] [place] [address] Hemoglobin (Bld) [Mass/Vol] 15.4 g/dL Normal 12.0-16.0 [facility] Comment on above: Performed By: #### 2 [id number] #### [facility] [address] [place] [address] Lymphocytes (Bld) [#/Vol] 2.2 E9/L Normal 1.0-4.0 [facility] Comment on above: Performed By: #### 2 [id number] #### [facility] [address] [place] [address] Lymphocytes/100 WBC (Bld) 28.8 % Normal 14.0-50.0 [facility] Comment on above: Performed By: #### 2 [id number] #### [facility] [address] [place] [address] MCH (RBC) [Entitic mass] 29.8 pg Normal 27.0-34.0 [facility] Comment on above: Performed By: #### 2 [id number] #### [facility] [address] [place] [address] MCHC (RBC) [Mass/Vol] 33.2 g/dL Normal 31.4-36.0 [facility] Comment on above: Performed By: #### 2 [id number] #### [facility] [address] [place] [address] MCV (RBC) [Entitic vol] 89.5 fL Normal 80.0-100.0 [facility] Comment on above: Performed By: #### 2 [id number] #### [facility] [address] [place] [address] Monocytes (Bld) [#/Vol] 0.7 E9/L Normal 0.2-1.0 [facility] Comment on above: Performed By: #### 2 [id number] #### [facility] [address] [place] [address] Neutrophils (Bld) [#/Vol] 4.3 E9/L Normal 2.0-7.5 [facility] Comment on above: Performed By: #### 2 [id number] #### [facility] [address] [place] [address] Neutrophils/100 WBC (Bld) 56.9 % Normal 36.0-75.0 [facility] Comment on above: Performed By: #### 2 [id number] #### [facility] [address] [place] [address] Platelet mean volume (Bld) [Entitic vol] 8.4 fL Normal 6.4-10.8 [facility] Comment on above: Performed By: #### 2 [id number] #### [facility] [address] [place] [address] Platelets (Bld) [#/Vol] 265.0 E9/L Normal 150.0-500.0 [facility] Comment on above: Performed By: #### 2 [id number] #### [facility] [address] [place] [address] RBC (Bld) [#/Vol] 5.2 E12/L Normal 4.3-5.9 [facility] Comment on above: Performed By: #### 2 [id number] #### [facility] [address] [place] [address] WBC corrected for nucl RBC Auto (Bld) [#/Vol] 7.5 E9/L Normal 4.0-11.0 [facility] Comment on above: Performed By: #### 2 [id number] #### [facility] [address] [place] [address] CHEMISTRYOrdered By: SYSTEM SYSTEM on 06-18-2024 Anion gap [Moles/Vol] 11 mmol/L Normal 6 - 16 mEq/L R emisol Chem Calcium [Mass/Vol] 8.7 mg/dL Low 8.9 - 11. 1 mg/dL [facility] Chloride [Moles/Vol] 105 mmol/L Normal 101 - 1 11 mmol/L [facility] CO2 [Moles/Vol] 26 mmol/L Normal 21 - 31 mmol/L [facility] Creatinine [Mass/Vol] 1.0 mg/dL Normal 0.5 - 1.3 mg/dL [facility] eGFR 64 mL/min/1.73 m2 Normal >=59mL/min /1 .73 m2 [facility] Glucose [Mass/Vol] 89 mg/dL Normal 55 - 199 mg/dL [facility] Potassium [Moles/Vol] 4.0 mmol/L Normal 3.5 - 5.3 mmol/L [facility] Sodium [Moles/Vol] 138 mmol/L Normal 135 - 145 mmol/L [facility] Urea nitrogen [Mass/Vol] 18 mg/dL Normal 5 - 21 mg/d L [facility] Urea nitrogen/Creatinine [Mass ratio] 18 mg/mg Normal 10 - 20 [facility] COAGULATIONOrdered By: Adia Ace on 06-18-2024 aPTT Coag (PPP) [Time] 30.9 s Normal 25.1 - 36.5 second(s) [facility] Comment on above: Interpretive Data: P arameter 15 days - 4 weeks 1 - 5 months 6 - 11 months 1 - 5 years 6 - 10 years 11 - 17 years PTT Mean: 35.4 (27.6-45.6) Mean: 33.5 (24.8-40.7) Mean: 32.4 (25.1-40.7) Mean: 31.6 (24.0-39.2) Mean: 31.6 (26.9-38.7) Mean: 31.0 (24.6-38.4) Pediatric Reference ranges were obtained from a study by Ethan Mccullough et al. prepared from 1437 samples obtained at 7 different centers using the same coagulation reagent and instrumentation as [facility]. Currently there are no coagulation studies available worldwide for children to 14 days, and no normal ranges. Heparin therapeutic range (represented by Anti-Factor Xa activity of 0.2 - 0.4 U/mL) corresponds to PTT of 56.6 - 109.0 sec. INR Coag (PPP) [Relative time] 1.02 {INR} Invalid Interpretation Code [facility] Comment on above: Interpretive Data: I NR results are specifically intended to assess patients stabilized on long-term Anticoagulation therapy suggested INR s Less Intensive Anticoagulation 2.0 3.0 Conventional Range 3.0 4.5 PT Coag (PPP) [Time] 11.4 s Normal 9.4 - 1 2.5 second(s) [facility] Comment on above: Interpretive Data: 1 5 days - 4 weeks 1 - 5 months 6 -11 months 1 5 years 6 10 years 11 -17 years Mean: 11.2 (9.5 12.6) Mean: 11.0 (9.7 12.8) Mean: 11.0 (9.8 13.0) Mean: 11.3 (9.9 13.4) Mean: 11.7 (10.0 14.6) Mean: 11.8 (10.0 - 14.1) Pediatric Reference ranges were obtained from a study by Ethan Mccullough et alSamantha prepared from 1437 samples obtained at 7 different centers using the same coagulation reagent and instrumentation as [facility]. Currently there are no coagulation studies available worldwide for children to 14 days, and no normal ranges. HEMATOLOGYOrdered By: SYSTEM SYSTEM on 06-18-2024 Basophils/100 WBC (Bld) 0.9 % Normal 0.0 - 2.0 % Remisol Heme Basophils/Leukocytes Auto (Bld) [Pure # fraction] 0.1 E9/L Normal 0.0 - 0.2 E9/L [facility]e Eosinophils (Bld) [#/Vol] 0.3 E9/L Normal 0.0 - 0.5 E9/L [facility] Eosinophils/100 WBC (Bld) 4.5 % Normal 0.0 - 8.0 % [facility] Erythrocyte distribution width (RBC) [Ratio] 15.1 % High 10.9 - 14.2 % [facility] Hematocrit (Bld) [Volume fraction] 46.2 % High 34.0 - 46.0 % [facility]e Hemoglobin (Bld) [Mass/Vol] 15.4 g/dL Normal 12.0 - 16.0 gm/dL [facility] Lymphocytes (Bld) [#/Vol] 2.2 E9/L Normal 1.0 - 4.0 E9/L [facility] Lymphocytes/100 WBC (Bld) 28.8 % Normal 14.0 - 50.0 % [facility] MCH (RBC) [Entitic mass] 29.8 pg Normal 27. 0 - 34.0 pg [facility]e MCHC (RBC) [Mass/Vol] 33.2 g/dL Normal 31.4 - 36.0 gm/dL [facility] MCV (RBC) [Entitic vol] 89.5 fL Normal 80.0 - 100.0 fL [facility] Monocytes (Bld) [#/Vol] 0.7 E9/L Normal 0.2 - 1.0 E9/L [facility] Monocytes/100 WBC (Bld) 8.9 % Normal 4.0 - 14.0 % [facility] Neutrophils (Bld) [#/Vol] 4.3 E9/L Normal 2.0 - 7.5 E9/L [facility] Neutrophils/100 WBC (Bld) 56.9 % Normal 36.0 - 75.0 % [facility] Platelet mean volume (Bld) [Entitic vol] 8.4 fL Normal 6.4 - 10.8 fL [facility] Platelets (Bld) [#/Vol] 265.0 E9/L Normal 150. 0 - 500.0 E9/L [facility] RBC (Bld) [#/Vol] 5.2 E12/L Normal 4.3 - 5.9 E12/L [facility] WBC corrected for nucl RBC Auto (Bld) [#/Vol] 7.5 E9/L Normal 4.0 - 11.0 E9/L Rem[facility] Heme PT & PTTon 06-18-2024 aPTT Coag (PPP) [Time] 30.9 second(s) Normal 25.1-36.5 [facility] Comment on above: Result Comment: Para meter 15 days - 4 weeks 1 - 5 months 6 - 11 months 1 - 5 years 6 - 10 years 11 - 17 years PTT Mean: 35.4 (27.6-45.6) Mean: 33.5 (24.8-40.7) Mean: 32.4 (25.1-40.7) Mean: 31.6 (24.0-39.2) Mean: 31.6 (26.9-38.7) Mean: 31.0 (24.6-38.4) Pediatric Reference ranges were obtained from a study by Ethan Mccullough et al. prepared from 1437 samples obtained at 7 different centers using the same coagulation reagent and instrumentation as [facility]. Currently there are no coagulation studies available worldwide for children to 14 days, and no normal ranges. Heparin therapeutic range (represented by Anti-Factor Xa activity of 0.2 - 0.4 U/mL) corresponds to PTT of 56.6 - 109.0 sec. Performed By: #### 1 [id number] ####[facility] [address] [place] [address] INR Coag (PPP) [Relative time] 1.02 {INR} Invalid Interpretation Code [facility] Comment on above: Result Comment: INR results are specifically intended to assess patients stabilized on long-term Anticoagulation therapy suggested INR???s ???Less Intensive Anticoagulation??? 2.0 ??? 3.0 Conventional Range 3.0 ??? 4.5 Performed By: #### 1 [id number] ####[facility] [address] [place] [address] PT Coag (PPP) [Time] 11.4 second(s) Normal 9.4-12.5 [facility] Comment on above: Result Comment: 15 d ays - 4 weeks 1 - 5 months 6 -11 months 1 ??? 5 years 6 ??? 10 years 11 -17 years Mean: 11.2 (9.5 ??? 12.6) Mean: 11.0 (9.7 ??? 12.8) Mean: 11.0 (9.8 ??? 13.0) Mean: 11.3 (9.9 ??? 13.4) Mean: 11.7 (10.0 ??? 14.6) Mean: 11.8 (10.0 - 14.1) Pediatric Reference ranges were obtained from a study by Ethan Mccullough et al. prepared from 1437 samples obtained at 7 different centers using the same coagulation reagent and instrumentation as [facility]. Currently there are no coagulation studies available worldwide for children to 14 days, and no normal ranges. Performed By: #### 1 [id number] ####[facility] [address] [place] [address] UA with Cult Rflxon 06-18-20 24 Bilirubin Ql (U) Negative Normal Negative [facility] Comment on above: Performed By: #### 4 [id number] #### [facility] [address] [place] [address] Clarity (U) Clear Normal Clear [facility] Comment on above: Performed By: #### 4 [id number] #### [facility] [address] [place] [address] Color (U) Colorless Abnormal Yellow [facility] Comment on above: Result Comment: Micr oscopic readings are only performed on those samples that meet specific criteria set forth by [facility]. Performed By: #### 4 [id number] #### [facility] [address] [place] [address] Glucose Ql (U) Negative Normal Negative [facility] Comment on above: Performed By: #### 4 [id number] #### [facility] [address] [place] [address] Hemoglobin Auto test strip (U) [Mass/Vol] Trace Abnormal Negative [facility] Comment on above: Performed By: #### 4 [id number] #### [facility] [address] [place] [address] Ketones Auto test strip Ql (U) Negative Normal Negative [facility] Comment on above: Performed By: #### 4 [id number] #### [facility] [address] [place] [address] Leukocyte esterase Auto test strip Ql (U) Negative Normal Negative [facility] Comment on above: Performed By: #### 4 [id number] #### [facility] [address] [place] [address] Nitrite Auto test strip Ql (U) Negative Normal Negative [facility] Comment on above: Performed By: #### 4 [id number] #### [facility] [address] [place] [address] pH (U) 6.0 [pH] Invalid Interpretation Code 5.0-9.0 [facility] Comment on above: Performed By: #### 4 [id number] #### [facility] [address] [place] [address] Protein Ql (U) Negative Normal Negative [facility] Comment on above: Performed By: #### 4 [id number] #### [facility] [address] [place] [address] Specific gravity (U) [Rel density] 1.005 Invalid Interpretation Code 1.005-1.030 [facility] Comment on above: Performed By: #### 4 [id number] #### [facility] [address] [place] [address] Urobilinogen (U) [Mass/Vol] Negative Normal Negative [facility] Comment on above: Performed By: #### 4 [id number] #### [facility] [address] [place] [address] Type of Urine collection method Clean Catch Normal [facility] Comment on above: Performed By: #### 4 [id number] #### [facility] [address] [place] [address] URINALYSISOrdered By: SYSTEM SYSTEM on 06-18-2024 Bilirubin Ql (U) Negative Normal Negativemg/ d L [facility] UA Auto SS Clarity (U) Clear (06/18/24 3:58 PM) Normal Clear [facility] UA Auto SS Color (U) Colorless 1 *ABN* (06/18/24 3:58 PM) Invalid Interpretation Code Yellow [facility] Auto SS Comment on above: Interpretive Data: M icroscopic readings are only performed on those samples that meet specific criteria set forth by [facility]. Glucose Ql (U) Negative Normal Negativemg/d L [facility] UA Auto SS Hemoglobin Auto test strip (U) [Mass/Vol] Trace mg/dL Invalid Interpretation Code Negativemg/d L [facility] UA Auto SS Ketones Auto test strip Ql (U) Negative Normal Negativemg/d L [facility] UA Auto SS Leukocyte esterase Auto test strip Ql (U) Negative Normal NegativeLeu/ uL [facility]A Auto SS Nitrite Auto test strip Ql (U) Negative Normal Negativemg/d L [facility] UA Auto SS pH (U) 6.0 *NA* (06/18/24 3:58 PM) Invalid Interpretation Code 5.0 - 9.0 [facility] UA Auto SS Protein Ql (U) Negative Normal Negativemg/d L [facility] UA Auto SS Specific gravity (U) [Rel density] 1.005 *NA* (06/18/24 3:58 PM) Invalid Interpretation Code 1.005 - 1.030 [facility] UA Auto SS Urobilinogen (U) [Mass/Vol] Negative Normal Negativemg/d L [facility] UA Auto SS URINALYSISOrdered By: Reed Domingo on 06-18-2024 UA Spec Desc Clean Catch (06/18/24 3:58 PM) Normal [facility] UA Auto SS eGFRon 06-18-2024 eGFR 64 mL/min/1.73 m2 Normal >=59 [facility] Comment on above: Performed By: #### 1 [id number] #### [facility] [address] [place] [address] Ambulatory Visit Summaryon 1 08-11-2023 Ambulatory Visit Summary Ambulatory Visi t Summary PATEL RAIN CRABTREE :1960 Visit Date:06/11/2024 Ambulatory Visit Instructions Your Diagnosis Stress incontinence Bladder neoplasm of uncertain malignant potential Atrophic vaginitis Urethral caruncle Cystocele with rectocele Your Care Team Attending Physician - HAMILTON MALONE MD Primary Care Physician - SEB BARRY MD This Is Your Medications List ciprofloxacin (Cipro 500 mg Tab) Contact prescribing physician if questions or concerns lithium (lithium 300 mg oral tablet) omeprazole (omeprazole 20 mg Cap-DR) oxcarbazepine (oxcarbazepine 300 mg Tab) tretinoin topical (tretinoin Top 0.1% Crm) venlafaxine Procedures Performed History of augmentation of breast, History of bilateral breast implants, History of nasal sinus surgery, Stapedectomy, Tubal ligation. Discharge Vitals Heart Rate (Peripheral) 103 Respiratory Rate 20 Blood Pressure 149/88 Height 170 cm Height 67 in Weight 84 kg Weight 184.8 lb BMI 29.07 What to do next Scheduled Follow-Up Appointments Friday 3:30 PM EST Where: [facility] 2023 9:00 AM EST Where: [facility] You Need to Schedule the Following Appointments Follow Up with GABBY RAMIREZ, JAYY VILLASENOR When: Where: Medications What How Much When Instructions Unchanged ciprofloxacin (Cipro 500 mg Tab) See instructions 1 tab po day prior to cysto, 1 tab po following cysto Unchanged lithium (lithium 300 mg oral tablet) [...] Contact prescribing physician if questions or concerns Medications and Immunizations Administered Given lidocaine Top 2% Gel w/Appl 6 mL, 6 mL, Topical. For: Stress incontinence Allergies metFORMIN (Hives) penicillin (Hives) Problems Ongoing - Any problem that you are currently receiving treatment for. Acne Anxiety Atrophic vaginitis Bladder neoplasm of uncertain malignant potential BMI 28.0-28.9,adult Chronic depression Chronic pain Cystocele with rectocele Essential hypertension Gastroesophageal reflux disease Heart disease Hypercholesterolemia Lesion of right nipple Lumbar radiculopathy Migraine Myocardial infarction Overweight Scoliosis of lumbosacral spine Sleep apnea Stress incontinence Urethral caruncle Historical - Any problem that you are no longer receiving treatment for. Bipolar disorder Patient Survey You may receive a survey via text or e-mail asking about your office visit. Please share your experience with us by completing your survey. We appreciate your feedback and thank you for choosing us for your care. Education Materials Injection Treatments for Urinary Incontinence Urinary incontinence is a condition in which a person cannot control when he or she passes urine. The cause of this condition is usually a weak urinary sphincter. The urinary sphincter is the muscle that normally keeps urine from leaking. To treat this condition, a material called a bulking agent can be injected either into the urethra or into the bladder neck. The urethra is the part of the body that drains urine from the bladder. The bladder neck is the area where the bladder and urethra connect. The bulking agent is also called an implant. The implant narrows and strengthens the urethra to help control the passing of urine. Urinary incontinence is a common problem for women who have had pregnancies or certain surgeries, such as a hysterectomy, and for men who have had prostate surgery. Tell a health care provider about: ??? Any allergies you have. ??? All medicines you are taking, including vitamins, herbs, eye drops, creams, and ulas-kzb-esyuhor medicines. ??? Any problems you or family members have had with anesthetic medicines. ??? Any blood disorders you have. ??? Any surgeries you have had. ??? Any medical conditions you have. ??? Whether you are or may be . What are the risks? Generally, this is a safe procedure. However, problems may occur, including: ??? Infection. ??? Bleeding. ??? Allergic reaction to medicines or to the bulking agent. ??? Damage to the urethra or bladder. ??? Difficulty passing urine. ??? A strong and uncomfortable urge to pass urine (urgency). ??? Pain when passing urine or having sex. ??? Failure of the procedure to nguyen (more content not included)... Normal [facility] Urology Office/Clinic Noteon 06-11-2024 Urology Office/Clinic Note Urology Office/Clinic Note Chief Complaint Cysto HPI Staff 63 year old female here for cysto and pelvic exam. Abx taken History of Present Illness Tests reviewed: I have reviewed the previous health record information and history for this patient from MICHEAL Molina. I have reviewed and verified the staff HPI to be accurate for this encounter. Review of Systems PHQ Score Initial Depression Screen Score: 0 SCORE ROS - Provider Constitutional: denies weight loss, denies hot flashes. Eyes: denies eye problems. Gastrointestinal: denies nausea, denies vomiting. Cardiovascular: denies chest pain or angina. Integumentary: no dryness Musculoskeletal: denies musculoskeletal symptoms. ENMT: denies otolaryngeal symptoms. Respiratory: no shortness of breath. Heme/Lymph: denies easy bleeding tendency, denies easy bruising tendency. Psychiatric: no confusion, no anxiety. Genitourinary: See HPI. Physical Exam Vitals & Measurements HR: 103(Peripheral) RR: 20 BP: 149/88 HT: 67 in HT: 170 cm WT: 84 kg WT: 184.8 lb BMI: 29.07 General Appearance: alert , no acute distress, well nourished, well developed female. Genitourinary: bladder nonpalpable, no flank pain. Procedure Operative Information Anesthesia Type: Local Procedure: Local Cystoscopy Complications: None Surgical risks, benefits, details of the procedure have been explained to the patient. Full informed consent has been obtained. Intraoperative Information Prepped: Patient is brought back to the endoscopy suite. Patient is placed in modified dorso/lithotomy position. Patient prepped in the usual fashion with Betadine solution. 2% Xylocaine Jelly is placed per Urethra. After waiting several minutes, the Cystoscope is introduced. The Urethra is: _Urethral caruncle. The Bladder: _On the R posterior bladder wall, there is a small pedunculated tumor that we will do a cysto/bx, Trabeculated: None (0) The Ureteral orifices: Show efflux of clear urine Specimens Removed: None Removal: Cystoscope is removed. The patient tolerated it well. Vaginal examination: Bladder and rectal prolapse with severe STACIA with coughing Postoperative Information Patient is discharged home with antibiotic coverage. Follow up arranged. Assessment/Plan TED pt. 1. Stress incontinence (N39.3: Stress incontinence (female) (male)) leaks urine with daily activities - ie Picking up granddaughter, getting out of car, sliding down slide, laughing, ect. Had urethral bulking about 8 yrs ago at another facility. This worked great until the past 6-12 mos. [1] Pt had IO cysto and pelvic exam today wo complications. 2. Bladder neoplasm of uncertain malignant potential (D41.4: Neoplasm of uncertain behavior of bladder) See procedure section. -Will schedule cysto with bladder tumor bx. The risks and benefits for cystoscopy have been discussed. The risks include bleeding, infection, and irritation of the bladder and urinary channel, among others. The patient, after being informed of procedural details and after questions have been answered, wishes to proceed. Full informed consent has been obtained. Will order Local anesthesia. 3. Atrophic vaginitis (N95.2: Postmenopausal atrophic vaginitis) See procedure section. -Start estrogen cream, apply pea-sized amount 2-3 times per week. SE discussed. Sent to [facility]. 4. 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 -Estrogen cream above. 5. Cystocele with rectocele (N81.10: Cystocele, unspecified) See procedure section. Patient was referred to me from our office for stress urinary incontinence. On cystoscopy, patient has a urethral caruncle with a bladder and rectal prolapse noted. She also has significant stress urinary incontinence on coughing. Upon cystoscopy, she has got a small bladder lesion in the posterior bladder wall concerning for malignancy. Thus, we will proceed with a cystoscopy, bladder biopsy to thoroughly evaluate and based on results of that proceed to possible prolapse repair. She is amenable to this. Follow-up With When Contact Information GABBY RAMIREZ, HAMILTON, URL Additional Instructions: schedule cysto with bladder tumor bx Patient Education Injection Treatments for Urinary Incontinence Shahla Espinoza, personally scribed for Dr. Hamilton Malone on 06/11/2024 10:15:05. . Portions of this record may have been created with voice recognition artificial intelligence software, specifically Smeam[employer]com, MiTio and or Mob[employer]ly. Substitutions may have occurred due to the inherent limitations of voice recognition and artificial intelligence software. Documentation recorded by the scribe, Shahla Evans, accurately reflects the services(s) I performed and decisions made by me. Authenticated by Dr. Malone on 06/11/2024 10:32:41. Problem List/Past Medic (more content not included)... Normal [facility] Comment on above: Result Comment: Elec tronically Signed By: GABBY RAMIREZ, HAMILTON\.br\Date and Time Signed: 06/11/24 10:33 EDT\.br\Electronically Co-Signed By: Shahla Evans\.br\Date and Time Co-Signed: 06/11/24 10:15 EDT Laboratory - Chemistry and C hemistry - challengeon 06-04-2024 Bilirubin Ql (U) Negative [facility] Glucose (U) [Mass/Vol] Negative [facility] Ketones Ql (U) Negative [facility] pH (U) 5 [pH] [facility] Specific gravity (U) [Rel density] 1.[address] [facility] Urobilinogen (U) [Mass/Vol] 0.2 mg/dL [facility] Laboratory - Specimen inform ationon 06-04-2024 Appearance (U) cloudy [facility] Color (U) alvin [facility] Laboratory - Urinalysison Leukocyte esterase Test strip Ql (U) ++ [facility] Nitrite Ql (U) Negative [facility] Protein Ql (U) Negative [facility] No Panel Informationon 06-04 Urine Occult Blood +++ [facility] Urine Cultureon 06-04-2024 Bacteria identified Cx Nom (U) ORGANISM: Klebsiella pneumoniae (O:KLEPNE) Holder Count >100,000 Aerobic ILANA Charge (NMIC56) ----- SUSCEPTIBILITY ---- ORGANISM: O:KLEPNE ANTIBIOTIC INTERPRETATION ILANA Amikacin S <16 Amoxacillin/K Clavulanate S <8 Ampicillin/Sulbactam S <4 Aztreonam S <4 Cefazolin S <2 Cefepime S <2 Ceftazidime S <1 Ceftazidime/Avibacta m S <4 Ceftolozane/Tazobact am S <2 Ceftriaxone S <1 Cefuroxime S <4 Ciprofloxacin S <0.25 Ertapenem S <0.5 Gentamicin S <2 Levofloxacin S <0.5 Meropenem S <1 Meropenem/Vaborbacta m S <2 Nitrofurantoin S <32 Piperacillin/Tazobac kaplan S <8 Tetracycline S <4 Tigecycline S <2 Tobramycin S <2 Trimethoprim/Sulfame thoxazole S <0.5 S = SUSCEPTIBLE I = [...] RESISTANT TO ALL B-LACTAM DRUGS. PERFORMED BY: [place] [address] PATHOLOGIST UND[employer]WR[employer] ALEXEI COLE M.D. Normal [facility] Comment on above: Performed By: #### C UU #### [address] Urine cultureOrdered By: Gabriela Barry on 06-04-2024 Bacteria identified Cx Nom (U) Abnormal [facility] Urology Office/Clinic Noteon 05-28-2024 Urology Office/Clinic Note Urology Office/Clinic Note HPI Staff 63 year old female new patient referred by Dr. Barry for urinary incontinence, stress incontinence pt states she leaks urine in active and daily activities. Picking up granddaughter, getting out of car, sliding down slide, laughing, ect. Dysuria: no Incomplete bladder emptying: no Hematuria: no Frequency: q3-4hrs Urgency: no Nocturia: 1x Stream: normal Leaking: yes Post void dripping: no Wearing pads/ Depends: pads at times Urge incontinence: no Stress incontinence: yes Incontinence without Sensory Awareness: no Abdominal pain: no Flank pain: no Sexual complaints: Review of Systems PHQ Score Initial Depression Screen Score: 0 SCORE no fever, chills, malaise, myalgia. no rash/lesions. no chest pain, palpitations, or SOB. no abdominal pain, nausea, vomiting. no unilateral calf swelling, redness, pain Physical Exam Vitals & Measurements HR: 104(Peripheral) BP: 138/74 HT: 67 in HT: 170 cm WT: 84 kg WT: 184.8 lb BMI: 29.07 General: nontoxic, NAD Mouth: moist mucosa Lungs: normal respiratory effort Cardio: regular rate, good distal perfusion Abdomen: nondistended, no suprapubic distention or tenderness, no CVA tenderness Neurologic: Grossly normal Skin: No rashes or suspicious lesions Assessment/Plan UA shows trace leuks only. Pt denies UTI sx. No indication to send for cx. PVR 68ml. 1. Stress incontinence (N39.3: Stress incontinence (female) (male)) BBSQ 5 very good control Biggest concern is STACIA. Pt states she leaks urine with daily activities - ie Picking up granddaughter, getting out of car, sliding down slide, laughing, ect. Had urethral bulking about 8 yrs ago at another facility. This worked great until the past 6-12 mos. I went over the options for treatment with the patient. We discussed conservative treatment with pelvic floor exercises with or without a physical therapist. We also discussed vaginal inserts such as anti-incontinence pessaries and the Impressa tampon. Definitive treatment including urethral bulking agents and mid-urethral sling were discussed as these are options offered by my colleagues. Details of each procedure, success rates, recovery/downtime expectations, and risks were discussed at length. We also spoke briefly about traditional slings with autologous fascia. This is also a very successful procedure without the use of synthetic mesh. It does however require a significantly longer recovery period and has a slightly higher risk of voiding dysfunction. And pt understands that it is not offered by our physicians so she would need referred elsewhere. Based on the above discussion the patient is most interested in Bulkamid. Provided pamphlet to review at home. Encouraged to write down any questions and bring w her to next appt. Understands that MD will make final decision if she is a good candidate for bulking agent or not. I also provided written info on sling in case she isn't a candidate for bulkamid. Will schedule cysto/pelvic exam w NKA and can discuss surgical planning at that time. The risks and benefits for cystoscopy have been discussed. The risks include bleeding, infection, and irritation of the bladder and urinary channel, among others. The patient, after being informed of procedural details and after questions have been answered, wishes to proceed. Full informed consent has been obtained. Will order Local anesthesia. Abx sent. Ordered: E&M of New Patient Moderate 45-59 Min 36523 Orders: ciprofloxacin, See Instructions, 1 tab po day prior to cysto, 1 tab po following cysto, # 2 tab(s), Refills(s) 0, Pharmacy: [facility]/pharmacy #[id number], 170, cm, 05/25/24 10:38:00 EDT, Height/Length Dosing, 84, kg, 05/25/24 10:38:00 EDT, Weight Dosing Follow-up With When Contact Information [facility] [id number] [place] [address] Business (1) Additional Instructions: our crew scheduler will be contacting you for follow-up Patient Education Kegel Exercises Urethral Vaginal Sling Problem List/Past Medical History Ongoing Acne Anxiety BMI 28.0-28.9,adult Chronic depression Chronic pain Essential hypertension Gastroesophageal reflux disease Heart disease Hypercholesterolemia Lesion of right nipple Lumbar radiculopathy Migraine Myocardial infarction Overweight Scoliosis of lumbosacral spine Sleep apnea Stress incontinence Historical Bipolar disorder Procedure/Surgical History History of augmentation of breast, History of bilateral breast implants, History of nasal sinus surgery, Stapedectomy, Tubal ligation. Medications Cipro 500 mg Tab, See Instructions lithium 300 mg oral tablet, 900 mg= 3 tab(s), Oral, Bedtime omeprazole 20 mg Cap-DR, 20 mg= 1 cap(s), Oral, Daily oxcarbazepine 300 mg Tab, 300 mg= 1 tab(s), Oral, Daily tretinoin Top 0.1% Crm, 1 susan, Topical, Once a day (at bedtime) venlafaxine Allergies (more content not included)... Normal [facility] Comment on above: Result Comment: Elec tronically Signed By: MARK CARLTON, KARON Reyes\.br\Date and Time Signed: 05/28/24 14:13 EDT Cholesterol in LDL Calc [Mas s/Vol]on 05-26-2024 Cholesterol in LDL [Mass/Vol] 160.0 mg/dL [facility] Comment on above: <100 mg/dl [id number] 0-129 mg/dl NEAR OR ABOVE [id number] mg/dl BORDERLINE [id number] mg/dl HIGH>190 mg/dl VERY HIGH Cholesterol in LDL [Mass/Vol] Cholesterol in LDL [Mass/volume] in Serum or Plasma by calculation [facility] Comment on above: <100 mg/dl [id number] 0-129 mg/dl NEAR OR ABOVE [id number] mg/dl BORDERLINE [id number] mg/dl HIGH>190 mg/dl VERY HIGH Cholesterol in VLDL Calc [Ma ss/Vol]on 05-26-2024 Cholesterol in VLDL [Mass/Vol] 41.0 mg/dL [facility] Cholesterol in VLDL [Mass/Vol] Cholesterol in VLDL [Mass/volume] in Serum or Plasma by calculation [facility] Estimated glomerular filtrat ion rate (GFR) non- Americanon 05-26-2024 GFR/1.73 sq M.predicted among non-blacks MDRD (S/P/Bld) [Vol rate/Area] 44 mL/min/{1.73_m2} Low >=60 mL/min/1.73m [address] [facility] GFR/1.73 sq M.predicted among non-blacks MDRD (S/P/Bld) [Vol rate/Area] Estimated glomerular filtration rate (GFR) non- Low >=60 mL/min/1.73m [address] [facility] Globulin Calc (S) [Mass/Vol] on 05-26-2024 Globulin (S) [Mass/Vol] 4.3 g/dL [facility] Globulin (S) [Mass/Vol] Serum globulin measurement by calculation (mass/volume) [facility] Laboratory - Chemistry and C hemistry - challengeon 05-26-2024 Albumin [Mass/Vol] 3.5 g/dL 3.4-5.0 [facility] ALP [Catalytic activity/Vol] 110 U/L 46-[address] [facility] ALT [Catalytic activity/Vol] 21 U/L 14-[address] [facility] AST [Catalytic activity/Vol] 14 U/L Low 15-[address] [facility] Bilirubin [Mass/Vol] 0.2 mg/dL 0.2-1.0 [facility] Bilirubin.direct [Mass/Vol] 0.1 mg/dL 0.0-0.[address] [facility] Cholesterol [Mass/Vol] 281 mg/dL High <=200 Fi [facility] Cholesterol in HDL [Mass/Vol] 80 mg/dL High 40-[address] [facility] Comment on above: > or =60 mg/dl - LOW CARDIOVASCULAR RISK<40 mg/dl - HIGH CARDIOVASCULAR RISK Creatinine [Mass/Vol] 1.24 mg/dL High 0.55-1.02 [facility] GFR/1.73 sq M.predicted MDRD (S/P/Bld) [Vol rate/Area] 53 mL/min/{1.73_m2} Low >=60 mL/min/1.73m [address] [facility] Glucose [Mass/Vol] 110 mg/dL High 74-106 [facility] Protein [Mass/Vol] 7.8 g/dL 6.4-8.2 [facility] Triglyceride [Mass/Vol] 205 mg/dL High <=150 F [facility] TSH Qn 1.756 m[IU]/L 0.358-3.[address] [facility] Urea nitrogen [Mass/Vol] 16.0 mg/dL 7.0-18.[address] [facility] No Panel Informationon 05-26 Mallard Level 0.6 mmol/L 0.5-1.[address] [facility] Comment on above: A concentration of 0 .5-0.8 mmol/L is advised for long-termuse; concentrations of up to 1.2 mmol/L may be necessaryduring acute treatment. Detection Limit = 0.1 <0.1 indicates None DetectedPerformed at: - [facility] [address] [id number] Director: Reji Williamson PhD, Phone: [phone] Serum or plasma albumin/glob ulin mass ratioon 05-26-2024 Albumin/Globulin [Mass ratio] 0.8 {ratio} [facility] Albumin/Globulin [Mass ratio] Serum or plasma albumin/globulin mass ratio [facility] Serum or plasma total choles terol/high density lipoprotein (HDL) cholesterol mass yoselyn 05-26-2024 Cholesterol.total/Choles terol in HDL [Mass ratio] 3.5 {ratio} [facility] Comment on above: 3.3 - 4.4 LOW RISK4. 4 - 7.1 AVERAGE RISK7.1 - 11.0 MODERATE RISK>11.0 HIGH RISK Cholesterol.total/Choles terol in HDL [Mass ratio] Serum or plasma total cholesterol/high density lipoprotein (HDL) cholesterol mass rat [facility] Comment on above: 3.3 - 4.4 LOW RISK4. 4 - 7.1 AVERAGE RISK7.1 - 11.0 MODERATE RISK>11.0 HIGH RISK Ambulatory Visit Summaryon 1 Ambulatory Visit Summary Ambulatory Visi t Summary RAIN SWEENEY :1960 Visit Date:05/25/2024 Ambulatory Visit Instructions Your Diagnosis Incontinent of urine Your Care Team Attending Physician - KARON FLORES PA-C Primary Care Physician - SEB BARRY MD This Is Your Medications List lithium (lithium 300 mg oral tablet) omeprazole (omeprazole 20 mg Cap-DR) oxcarbazepine (oxcarbazepine 300 mg Tab) tretinoin topical (tretinoin Top 0.1% Crm) venlafaxine Procedures Performed History of augmentation of breast, History of bilateral breast implants, History of nasal sinus surgery, Stapedectomy, Tubal ligation. Discharge Vitals Heart Rate (Peripheral) 104 Blood Pressure 138/74 Height 170 cm Height 67 in Weight 84 kg Weight 184.8 lb BMI 29.07 Medications What How Much When Instructions Unchanged lithium (lithium 300 mg oral tablet) 3 Tablets By Mouth At bedtime Unchanged omeprazole (omeprazole 20 mg Cap-DR) 1 Capsules By Mouth Every day Unchanged oxcarbazepine (oxcarbazepine 300 mg Tab) 1 Tablets By Mouth Every day Unchanged tretinoin topical (tretinoin Top 0.1% Crm) 1 Application Topical Once a day (at bedtime) Unchanged venlafaxine as directed Allergies metFORMIN (Hives) penicillin (Hives) Problems Ongoing - Any problem that you are currently receiving treatment for. Acne Anxiety BMI 28.0-28.9,adult Chronic depression Chronic pain Essential hypertension Gastroesophageal reflux disease Heart disease Hypercholesterolemia Lesion of right nipple Lumbar radiculopathy Migraine Myocardial infarction Overweight Scoliosis of lumbosacral spine Sleep apnea Historical - Any problem that you are no longer receiving treatment for. Bipolar disorder Patient Survey You may receive a survey via text or e-mail asking about your office visit. Please share your experience with us by completing your survey. We appreciate your feedback and thank you for choosing us for your care. Education Materials Urethral Vaginal Sling A urethral vaginal sling procedure is surgery to correct urinary incontinence. Urinary incontinence is passing urine without one's control. It is common in older women and in women who have had children. In this surgery, a strong piece of material is placed under the tube that drains the bladder (urethra). This sling is made of tension-free vaginal tape or nylon mesh. It fits under the urethra like a hammock. The sling is put in position to straighten, support, and hold the urethra in its normal position. Tell a health care provider about: ? Any allergies you have. ? All medicines you are taking, including vitamins, herbs, eye drops, creams, and zibf-cav-rbtxmhj medicines. ? Any problems you or family members have had with anesthetic medicines. ? Any blood disorders you have. ? Any surgeries you have had. ? Any medical conditions you have. ? Whether you are or may be . What are the risks? Generally, this is a safe procedure. However, problems may occur, including: ? Infection. ? Excessive bleeding. ? Allergic reactions to medicines. ? Damage to nearby structures or organs. ? Problems urinating for several days or weeks. ? Return of the urinary incontinence. ? Mesh failure. Be sure to talk with your health care provider about the options you have for sling material and the risks associated with each material. What happens before the procedure? Staying hydrated Follow instructions from your health care provider about hydration, which may include: ? Up to 2 hours before the procedure ? you may continue to drink clear liquids, such as water, clear fruit juice, black coffee, and plain tea. Eating and drinking restrictions Follow instructions from your health care provider about eating and drinking, which may include: ? 8 hours before the procedure ? stop eating heavy meals or foods, such as meat, fried foods, or fatty foods. ? 6 hours before the procedure ? stop eating light meals or foods, such as toast or cereal. ? 6 hours before the procedure ? stop drinking milk or drinks that contain milk. ? 2 hours before the procedure ? stop drinking clear liquids. Medicines Ask your health care provider about: ? Changing or stopping your regular medicines. This is especially important if you are taking diabetes medicines or blood thinners. ? Taking medicines such as aspirin and ibuprofen. These medicines can thin your blood. Do not take these medicines unless your health care provider tells you to take them. ? Taking kuzf-tsv-ychepca medicines, vitamins, herbs, and supplements. Surgery safety Ask your health care provider: ? How your surgery site will be marked. ? What steps will be taken to help prevent infection. These steps may include: ? Removing hair at the surgery site. ? Washing skin wi (more content not included)... Normal [facility] Laboratory - Chemistry and C hemistry - challengeon 05-19-2024 Bilirubin Ql (U) Negative [facility] Glucose (U) [Mass/Vol] Negative [facility] Ketones Ql (U) Negative [facility] pH (U) 7.0 [pH] [facility] Specific gravity (U) [Rel density] 1.[address] [facility] Urobilinogen (U) [Mass/Vol] 0.2 mg/dL [facility] Laboratory - Microbiology an d Antimicrobial susceptibilityOrdered By: Adamaris Hill on 05-19-2024 Bacteria identified Cx Nom (U) Klebsiella pneumoniae Abnormal [facility] Laboratory - Specimen inform ationon 05-19-2024 Appearance (U) clear [facility] Color (U) darkyellow [facility] Laboratory - Urinalysison Leukocyte esterase Test strip Ql (U) moderate [facility] Nitrite Ql (U) Positive [facility] Protein Ql (U) Negative [facility] No Panel Informationon 05-19 Urine Occult Blood moderate [facility] Urine Cultureon 05-19-2024 Bacteria identified Cx Nom (U) ORGANISM: Klebsiella pneumoniae (O:KLEPNE) Holder Count 75,000 Aerobic ILANA Charge (NMIC56) ----- SUSCEPTIBILITY ---- ORGANISM: O:KLEPNE ANTIBIOTIC INTERPRETATION ILANA Amikacin S <16 Amoxacillin/K Clavulanate S <8 Ampicillin/Sulbactam S <4 Aztreonam S <4 Cefazolin S <2 Cefepime S <2 Ceftazidime S <1 Ceftazidime/Avibacta m S <4 Ceftolozane/Tazobact am S <2 Ceftriaxone S <1 Cefuroxime S <4 Ciprofloxacin S <0.25 Ertapenem S <0.5 Gentamicin S <2 Levofloxacin S <0.5 Meropenem S <1 Meropenem/Vaborbacta m S <2 Nitrofurantoin S <32 Piperacillin/Tazobac kaplan S <8 Tetracycline S <4 Tigecycline S <2 Tobramycin S <2 Trimethoprim/Sulfame thoxazole S <0.5 S = SUSCEPTIBLE I = [...] RESISTANT TO ALL B-LACTAM DRUGS. PERFORMED BY: [place] [address] PATHOLOGIST [employer] ALEXEI COLE M.D. Normal [facility] Comment on above: Performed By: #### C UU #### [address] Urine cultureOrdered By: Pascale Hill on 05-19-2024 Bacteria identified Cx Nom (U) Abnormal [facility] HBV surface Ag IA Qlon 05-04 Hepatitis B Surface Antigen Negative Negative [facility] Comment on above: Performed at: [facility] [address] [id number] Director: Reji Williamson PhD, Phone: [phone] Performed at: [facility] [address] [id number] Director: Reji Williamson PhD, Phone: [phone] HIV 1 and HIV-2 antibody ass ay with HIV-1 p24 antigen detectionon 05-04-2024 HIV 1+2 Ab+HIV1 p24 Ag IA Ql Non-Reactive Non Reactive [facility] Comment on above: HIV-1/HIV-2 antibodi es and HIV-1 p24 antigen were NOTdetected. There is no laboratory evidence of HIV infection.HIV NegativePerformed at: [employer] [id number] Director: Reji Williamson PhD, Phone: [phone] HIV 1+2 Ab+HIV1 p24 Ag IA Ql HIV 1 and HIV-2 antibody assay with HIV-1 p24 antigen detection Non Reactive [facility] Comment on above: HIV-1/HIV-2 antibodi es and HIV-1 p24 antigen were NOTdetected. There is no laboratory evidence of HIV infection.HIV NegativePerformed at: [facility] EquipmentAc[facility] SystemAchkcq[address] [place] [id number] Director: Reji Williamson PhD, Phone: [phone] No Panel Informationon 05-04 RPR Quantitative Confirmation Non Reactive titer NonRea<1:[address] [facility] Comment on above: Please Note: This te st does not meet current guidelines forscreening and diagnosis of syphilis. This test isintended for following treatment response in patients beingtreated for syphilis infection. To screen for syphilisinfection, a reflex cascade that includes both RPR and atreponema-specific assay should be utilized, such asTreponema pallidum (Syphilis) Screening Lenore (338744) orRapid Plasma Reagin (RPR) Test With Reflex to QuantitativeRPR and Confirmatory Treponema pallidum Antibodies(389045).Performed at: [employer] [address] [place], [place] [id number] Director: Reji Williamson PhD, Phone: [phone] IGP,APTIMA HPV,AGE GDLNon AGE GDLN ACOG TESTING Note . [facility] Comment on above: TESTS RESULT FLAG UN ITS REF RANGE LAB Clinician Provided Cytology Information Source.............Cervix;Endocervix No. of containers..01 ThinPrep Vial Age Algo ACOG Hailee... FLAG LEGEND: L-Low Normal,H-High Normal,LL-Alert Low,HH-Alert High <-Panic Low,>-Panic High,A-Abnormal,AA-Critical Abnormal Performed at: 01 =G [address] [address] Karena Shane MD, HPV APTIMA Negative Negative [facility] Comment on above: This nucleic acid am plification test detects fourteen high- risk HPV types (16,18,31,33,35,39,45,51,52,56,58,59,66,68) without differentiation. Performed at: = - [address] [id number] Asbestos Abatement Technician: Karena Shane MD, Phone: [phone] Performed at: - [address] [id number] Asbestos Abatement Technician: Karena Shane MD, Phone: [phone] IGP, APTIMA HPV, RFX 16/18,45 Note . [facility] Comment on above: TESTS RESULT FLAG [facility] [[email or web address]] REF RANGE LAB DIAGNOSIS: 02 NEGATIVE FOR INTRAEPITHELIAL LESION OR MALIGNANCY. Specimen adequacy: 02 Satisfactory for evaluation. No endocervical component is identified. Performed by: 02 Ernestine Pozo, Safety Council Director (ASCP) . 02 Note: Note 02 The Pap smear is a screening test designed to aid in the detection of premalignant and malignant conditions of the uterine cervix. It is not a diagnostic procedure and should not be used as the sole means of detecting cervical cancer. Both false-positive and false-negative reports do occur. Test Methodology: Note 02 This liquid based ThinPrep(R) pap test was screened with the use of an image guided system. HPV Genotype Reflex Note 02 Criteria not met, HPV Genotype not performed. FLAG LEGEND: L-Low Normal,H-High Normal,LL-Alert Low,HH-Alert High <-Panic Low,>-Panic High,A-Abnormal,AA-Critical Abnormal Performed at: [address] [address] Karena Shane MD, BRUSH-SPATULA CERVIX ENDOCERVIX [facility] URETHRITIS/DISCHARGE PLUS VA GINITIS (HTRX)on 04-23-2024 ATOPOBIUM VAGINAE 0.000 [facility] ATOPOBIUM VAGINAE Not detected [facility] BVAB 2,3 (BACTERIAL VAGINOSIS ASSOCIATED BACTERIA 2, 3); MOBILUNCUS SPP 0.000 [facility] BVAB 2,3 (BACTERIAL VAGINOSIS ASSOCIATED BACTERIA 2, 3); MOBILUNCUS SPP Not detected [facility] GIANA ALBICANS, PARAPSILOSIS, TROPICALIS 0.000 [facility] GIANA ALBICANS, PARAPSILOSIS, TROPICALIS Not detected [facility] GIANA GLABRATA 0.000 [facility] GIANA GLABRATA Not detected [facility] GIANA KRUSEI 0.000 [facility] GIANA KRUSEI Not detected [facility] CHLAMYDIA TRACHOMATIS 0.000 [facility] CHLAMYDIA TRACHOMATIS Not detected [facility] GARDNERELLA VAGINALIS 0.000 [facility] GARDNERELLA VAGINALIS Not detected [facility] MEGASPHAERA (TYPES 1, 2) 0.000 [facility] MEGASPHAERA (TYPES 1, 2) Not detected [facility] MYCOPLASMA GENITALIUM 0.000 [facility] MYCOPLASMA GENITALIUM Not detected [facility] NEISSERIA GONORRHOEAE 0.000 [facility] NEISSERIA GONORRHOEAE Not detected [facility] TRICHOMONAS VAGINALIS 0.000 [facility] TRICHOMONAS VAGINALIS Not detected [facility] Human papilloma virus 16+18+ 31+33+35+39+45+51+52+56+58+59+66+68 DNA [Presence] in [place] 04-21-2024 HPV 16+18+31+33+35+39+45+51+ 52+56+58+59+66+68 DNA Probe+sig amp Ql (Cvx) Negative Negative [facility] Comment on above: This nucleic acid am plification test detects fourteen high-risk HPV types (16,18,31,33,35,39,45,51,52,56,58,59,66,68)without differentiation.Performed at: = - [address] [id number] Director: Karena Shane MD, Phone: [phone] at: [address] [id number] Director: Karena Shane MD, Phone: [phone] HPV 16+18+31+33+35+39+45+51+ 52+56+58+59+66+68 DNA Probe+sig amp Ql (Cvx) Human papilloma virus 16+18+31+33+35+39+45 +51+52+56+58+59+66+6 8 DNA [Presence] in Cer Negative [facility] Comment on above: This nucleic acid am plification test detects fourteen high-risk HPV types (16,18,31,33,35,39,45,51,52,56,58,59,66,68)without differentiation.Performed at: =G - [facility] [id number] Director: Karena Shane MD, Phone: [phone] at: - [facility] [id number] Director: Karena Shane MD, Phone: [phone] No Panel Informationon 04-21 HPV High Risk Other Comment Note . [facility] Comment on above: TESTS RESULT FLAG UN ITS REF RANGE LAB --DIAGNOSIS: 02 NEGATIVE FOR INTRAEPITHELIAL LESION OR MALIGNANCY.Specimen adequacy: 02 Satisfactory for evaluation. No endocervical component is identified.Performed by: 02 Ernestine Pozo, Safety Council Director (ASCP). 02Note: Note 02 The Pap smear [...] Criteria not met, HPV Genotype not performed. --------- FLAG LEGEND: L-Low Normal,H-High Normal,LL-Alert Low,HH-Alert High <-Panic Low,>-Panic High,A-Abnormal,AA-Critical Abnormal -------Performed at:02 WB [facility] [address] [place] [address] Karena Shane MD, Reference Lab Test Patient Age Note . [facility] Comment on above: TESTS RESULT FLAG UN ITS REF RANGE LAB -- Clinician Provided Cytology Information Source.............Cervix;Endocervix No. of containers..01 ThinPrep VialAge Alyciao VILLA Hailee... - FLAG LEGEND: L-Low Normal,H-High Normal,LL-Alert Low,HH-Alert High <-Panic Low,>-Panic High,A-Abnormal,AA-Critical Abnormal -------Performed at:01 =G [facility] [place] [address] [facility] [address] Karena Shane MD, Basophils Auto (Bld) [#/Vol] on 04-09-2024 Basophils (Bld) [#/Vol] 0.1 10 3/uL 0.0-0.[address] [facility] Basophils (Bld) [#/Vol] Automated basoph il count 0.0-0.[address] [facility] Basophils/100 WBC Auto (Bld) on 04-09-2024 Basophils/100 WBC (Bld) 0.8 % 0.2-2.0 [facility] Basophils/100 WBC (Bld) Automated basophil % 0. 2-2.[address] [facility] Cholesterol in LDL Calc [Mas s/Vol]on 04-09-2024 Cholesterol in LDL [Mass/Vol] 156.0 mg/dL [facility] Comment on above: <100 mg/dl [id number] 0-129 mg/dl NEAR OR ABOVE [id number] mg/dl BORDERLINE [id number] mg/dl HIGH>190 mg/dl VERY HIGH Cholesterol in LDL [Mass/Vol] Cholesterol in LDL [Mass/volume] in Serum or Plasma by calculation [facility] Comment on above: <100 mg/dl [id number] 0-129 mg/dl NEAR OR ABOVE [id number] mg/dl BORDERLINE [id number] mg/dl HIGH>190 mg/dl VERY HIGH Cholesterol in VLDL Calc [Ma ss/Vol]on 04-09-2024 Cholesterol in VLDL [Mass/Vol] 37.6 mg/dL [facility] Cholesterol in VLDL [Mass/Vol] Cholesterol in VLDL [Mass/volume] in Serum or Plasma by calculation [facility] Eosinophils/100 WBC Auto (Bl d)on 04-09-2024 Eosinophils/100 WBC (Bld) 2.3 % 0.9-7.[address] [facility] Eosinophils/100 WBC (Bld) Automated eosinophil % 0.9-7.[address] [facility] Erythrocyte distribution wid th Auto (RBC) [Ratio]on 04-09-2024 Erythrocyte distribution width (RBC) [Ratio] 14.2 % 11.0-15.[address] [facility] Erythrocyte distribution width (RBC) [Ratio] Erythrocyte distribution width [Ratio] by Automated count 11.0-15.[address] [facility] Globulin Calc (S) [Mass/Vol] on 04-09-2024 Globulin (S) [Mass/Vol] 3.7 g/dL F [facility] Globulin (S) [Mass/Vol] Serum globulin measurement by calculation (mass/volume) [facility] Hematocrit Auto (Bld) [Volum e fraction]on 04-09-2024 Hematocrit (Bld) [Volume fraction] 48.4 % High 36.0-48.[address] [facility] Hematocrit (Bld) [Volume fraction] Hematocrit [Volume Fraction] of Blood by Automated count High 36.0-48.[address] [facility] Hemoglobin [Mass/volume] in Bloodon 04-09-2024 Hemoglobin (Bld) [Mass/Vol] 15.8 g/dL 12.0-16.[address] [facility] Hemoglobin (Bld) [Mass/Vol] Hemoglobin [Mass/volume] in Blood 12.0-16.[address] [facility] Laboratory - Chemistry and C hemistry - challengeon 04-09-2024 Albumin [Mass/Vol] 3.5 g/dL 3.4-5.0 [facility] ALP [Catalytic activity/Vol] 92 U/L 46-[address] [facility] ALT [Catalytic activity/Vol] 30 U/L 14-[address] [facility] AST [Catalytic activity/Vol] 17 U/L 15-[address] [facility] Bilirubin [Mass/Vol] 0.6 mg/dL 0.2-1.0 [facility] Bilirubin.direct [Mass/Vol] 0.1 mg/dL 0.0-0.[address] [facility] Cholesterol [Mass/Vol] 263 mg/dL High <=200 [facility] Cholesterol in HDL [Mass/Vol] 70 mg/dL High 40-[address] [facility] Comment on above: > or =60 mg/dl - LOW CARDIOVASCULAR RISK<40 mg/dl - HIGH CARDIOVASCULAR RISK Protein [Mass/Vol] 7.2 g/dL 6.4-8.2 [facility] Triglyceride [Mass/Vol] 188 mg/dL High <=150 [facility] Laboratory - Hematology and Cell countson 04-09-2024 Immature granulocytes/100 WBC (Bld) 0.7 % High 0.0-0.[address] [facility] Leukocytes [#/volume] correc sheeba for nucleated erythrocytes in Blood by Automated counon 04-09-2024 WBC corrected for nucl RBC Auto (Bld) [#/Vol] 7.4 10 3/uL 4.0-11.[address] [facility] WBC corrected for nucl RBC Auto (Bld) [#/Vol] Leukocytes [#/volume] corrected for nucleated erythrocytes in Blood by Automated coun 4.0-11.[address] [facility] Lymphocytes Auto (Bld) [#/Vo l]on 04-09-2024 Lymphocytes (Bld) [#/Vol] 1.9 10 3/uL 1.2-3.[address] [facility] Lymphocytes (Bld) [#/Vol] Lymphocytes [#/volume] in Blood by Automated count 1.2-3.[address] [facility] Lymphocytes/100 WBC Auto (Bl d)on 04-09-2024 Lymphocytes/100 WBC (Bld) 25.8 % 20.5-60.[address] [facility] Lymphocytes/100 WBC (Bld) Lymphocytes/100 leukocytes in Blood by Automated count 20.5-60.[address] [facility] MCH Auto (RBC) [Entitic mass ]on 04-09-2024 MCH (RBC) [Entitic mass] 29.5 pg 26.7-34.[address] [facility] MCH (RBC) [Entitic mass] MCH [Entitic ma ss] by Automated count 26.7-34.[address] [facility] MCHC Auto (RBC) [Mass/Vol]on 04-09-2024 MCHC (RBC) [Mass/Vol] 32.6 g/dL 29.9-35.2 [facility] MCHC (RBC) [Mass/Vol] MCHC [Mass/volume] by Automated count 29.9-35.[address] [facility] MCV Auto (RBC) [Entitic vol] on 04-09-2024 MCV (RBC) [Entitic vol] 90.3 fL 81.0-99.0 [facility] MCV (RBC) [Entitic vol] MCV [Entitic vol ume] by Automated count 81.0-99.[address] [facility] Monocytes Auto (Bld) [#/Vol] on 04-09-2024 Monocytes (Bld) [#/Vol] 0.6 10 3/uL 0.3-0.[address] [facility] Monocytes (Bld) [#/Vol] Automated blood monocyte count 0.3-0.[address] [facility] Monocytes/100 WBC Auto (Bld) on 04-09-2024 Monocytes/100 WBC (Bld) 7.9 % 1.7-12.0 [facility] Monocytes/100 WBC (Bld) Automated monocyte % 1. 7-12.[address] [facility] Neutrophils Auto (Bld) [#/Vo l]on 04-09-2024 Neutrophils (Bld) [#/Vol] 4.6 10 3/uL 1.4-6.[address] [facility] Neutrophils (Bld) [#/Vol] Neutrophils [#/volume] in Blood by Automated count 1.4-6.[address] [facility] Neutrophils/100 WBC Auto (Bl d)on 04-09-2024 Neutrophils/100 WBC (Bld) 62.5 % 43.0-75.[address] [facility] Neutrophils/100 WBC (Bld) Automated neutrophil % 43.0-75.[address] [facility] No Panel Informationon 04-09 Eosinophils # (Auto) 0.2 10 3/uL 0.0-0.7 [facility] Follicle Stimulating Hormone 71.8 mIU/mL 25.8-134.[address] [facility] Comment on above: Adult Female Range F ollicular phase 3.5 - 12.5 Ovulation phase 4.7 - 21.5 Luteal phase 1.7 - 7.7 Postmenopausal 25.8 - 134.8Performed at: [facility] [place], [place] [id number] Director: Reji Williamson PhD, Phone: [phone] Immature Granulocyte # (Auto) 0.05 10 3/uL High 0.00-0.[address] [facility] Mallard Level 0.1 mmol/L Abnormal 0.5-1.[address] [facility] Comment on above: A concentration of 0 .5-0.8 mmol/L is advised for long-termuse; concentrations of up to 1.2 mmol/L may be necessaryduring acute treatment. Detection Limit = 0.1 <0.1 indicates None DetectedPerformed at: [facility] [place], [place] [id number] Director: Reji Williamson PhD, Phone: [phone] Platelet mean volume Auto (B ld) [Entitic vol]on 04-09-2024 Platelet mean volume (Bld) [Entitic vol] 10.0 fL 9.5-13.[address] [facility] Platelet mean volume (Bld) [Entitic vol] Platelet mean volume [Entitic volume] in Blood by Automated count 9.5-13.[address] [facility] Platelets Auto (Bld) [#/Vol] on 04-09-2024 Platelets (Bld) [#/Vol] 278 10 3/uL 150-[address] [facility] Platelets (Bld) [#/Vol] Platelets [#/vol ume] in Blood by Automated count 150-[address] [facility] RBC Auto (Bld) [#/Vol]on RBC (Bld) [#/Vol] 5.36 10 6/uL 4.20-5.40 [facility] RBC (Bld) [#/Vol] Erythrocytes [#/volume] in Blood by Automated count 4.20-5.[address] [facility] Serum or plasma albumin/glob ulin mass ratioon 04-09-2024 Albumin/Globulin [Mass ratio] 0.9 {ratio} [facility] Albumin/Globulin [Mass ratio] Serum or plasma albumin/globulin mass ratio [facility] Serum or plasma total choles terol/high density lipoprotein (HDL) cholesterol mass yoselyn 04-09-2024 Cholesterol.total/Choles terol in HDL [Mass ratio] 3.8 {ratio} [facility] Comment on above: 3.3 - 4.4 LOW RISK4. 4 - 7.1 AVERAGE RISK7.1 - 11.0 MODERATE RISK>11.0 HIGH RISK Cholesterol.total/Choles terol in HDL [Mass ratio] Serum or plasma total cholesterol/high density lipoprotein (HDL) cholesterol mass rat [facility] Comment on above: 3.3 - 4.4 [...] (COVID-19) mRNA-1273 vaccine 11/11/2020 Recorded Normal Donis [facility] Comment on above: Result Comment: [...] SARS-CoV-2 (COVID-19) mRNA-1273 vaccine 11/11/2020 Recorded Normal [facility] Operative Reporton Operative Report [id number] #1.00TIFF Normal [facility] Pathology Noteon 01-08-2024 Pathology Note [id number] #1.00TIFF Normal [facility] [place] 12-31-2023 L Specimen: [id number] Received: 01/01/24 Status: VALERIE Mancini Num: [id number] Spec Type: Surgical Subm Dr: Dieter Loco MD FACS Tissues: A Skin-Other than Cyst, tag, debridement or plastic repair (RT NIPPLE LESION) Procedures: HE, Gross/Micro L4 Age/ Patient Sex Location Account Attending Physician Rain Sweeney 63/F [facility] [id number] Dieter Loco MD FACS SPEC NUM: [id number] RECD: 01/01/24 STATUS: VALERIE JERONIMO NUM: [id number] JOSEMANUEL: 12/31/[address]: Dieter Loco MD FACS ENTERED: 01/01/[address]: Renee Jang SPEC TYPE: Surgical DEPT: [...] cut surface and entirely submitted in A1. Specimen: [id number] Received: 01/01/24 Status: VALERIE Mancini Num: [id number] Spec Type: Surgical Subm Dr: Dieter Loco MD FACS Tissues: A Skin-Other than Cyst, tag, debridement or plastic repair (RT NIPPLE LESION) Procedures: Ita FLOYD/Carlo Baker Patient: Rain Sweeney [id number] (Continued) Specimen: [id number] Received: 01/01/24 (Continued) Signed (signature on file) Bobbi Buckner MD 01/05/24 181 Specimen: [id number] Received: 01/01/24 Status: VALERIE Mancini Num: [id number] Spec Type: Surgical Subm Dr: Dieter Loco MD FACS Tissues: A Skin-Other than Cyst, tag, debridement or plastic repair (RT NIPPLE LESION) Procedures: Ita FLOYD/Carlo Baker Patient: Rain Sweeney [id number] (Continued) Specimen: [id number] Received: 01/01/24 (Continued) CPT Codes 18006 Specimen: [id number] Received: 01/01/24 Status: VALERIE Mancini Num: [id number] Spec Type: Surgical Subm Dr: Dieter Loco MD FACS Tissues: A Skin-Other than Cyst, tag, debridement or plastic repair (RT NIPPLE LESION) Procedures: Ita FLOYD/Carlo L4 Patient: Rain Sweeney [id number] (Continued) Signed (signature on file) Bobbi Buckner MD 01/05/241811 Normal [facility] Consent for Procedure/Surger yon 11-21-2023 Consent for Procedure/Surgery [id number] #1.00TIFF Normal [facility] Facesheeton 11-20-2023 Facesheet [id number] #1.00TIFF Normal [facility] RAD - Ultrasound Reporton RAD - Ultrasound Report [id number] #1.00TIFF Normal [facility] Ambulatory Visit Summaryon 0 11-19-2023 Ambulatory Visit Summary RAIN SWEENEY :1960 Visit Date:11/19/2023 Ambulatory Visit Instructions Your Diagnosis Lesion of right nipple Your Care Team Attending Physician - BERONICA RAMIREZ, Dieter Masters Primary Care Physician - ASHA RAMIREZ, SEB This Is Your Medications List Contact prescribing [...] choosing us for your care. Normal Donis [facility] Basophils Auto (Bld) [#/Vol] on 11-18-2023 Basophils (Bld) [#/Vol] 0.1 10 3/uL 0.0-0.[address] [facility] Basophils/100 WBC Auto (Bld) on 11-18-2023 Basophils/100 WBC (Bld) 0.9 % 0.2-2.0 [facility] Cholesterol in LDL Calc [Mas s/Vol]on 11-18-2023 Cholesterol in LDL [Mass/Vol] 130.0 mg/dL [facility] Comment on above: <100 mg/dl [id number] 0-129 mg/dl NEAR OR ABOVE TYSONSS463-766 mg/dl BORDERLINE OTNM394-236 mg/dl HIGH>190 mg/dl VERY HIGH Cholesterol in VLDL Calc [Ma ss/Vol]on 11-18-2023 Cholesterol in VLDL [Mass/Vol] 19.8 mg/dL [facility] Eosinophils/100 WBC Auto (Bl d)on 11-18-2023 Eosinophils/100 WBC (Bld) 4.5 % 0.9-7.[address] [facility] Erythrocyte distribution wid th Auto (RBC) [Ratio]on 11-18-2023 Erythrocyte distribution width (RBC) [Ratio] 13.6 % 11.0-15.[address] [facility] Estimated glomerular filtrat ion rate (GFR) non- Americanon 11-18-2023 GFR/1.73 sq M.predicted among non-blacks MDRD (S/P/Bld) [Vol rate/Area] 55 mL/min/{1.73_m2} >=[address] [facility] Globulin Calc (S) [Mass/Vol] on 11-18-2023 Globulin (S) [Mass/Vol] 3.6 g/dL [facility] Glucose mean value [Mass/vol ume] in Blood Estimated from glycated hemoglobinon 11-18-2023 Average glucose Estimated from glycated hemoglobin (Bld) [Mass/Vol] 100 mg/dL [facility] Hematocrit Auto (Bld) [Volum e fraction]on 11-18-2023 Hematocrit (Bld) [Volume fraction] 46.8 % 36.0-48.[address] [facility] Hemoglobin [Mass/volume] in Bloodon 11-18-2023 Hemoglobin (Bld) [Mass/Vol] 15.0 g/dL 12.0-16.[address] [facility] Laboratory - Chemistry and C hemistry - challengeon 11-18-2023 Albumin [Mass/Vol] 3.7 g/dL 3.4-5.0 [facility] ALP [Catalytic activity/Vol] 83 U/L 46-[address] [facility] ALT [Catalytic activity/Vol] 40 U/L 14-[address] [facility] AST [Catalytic activity/Vol] 22 U/L 15-[address] [facility] Bilirubin [Mass/Vol] 0.4 mg/dL 0.2-1.0 [facility] Calcium [Mass/Vol] 9.1 mg/dL 8.5-10.1 [facility] Chloride [Moles/Vol] 104 mmol/L 98-107 [facility] Cholesterol [Mass/Vol] 226 mg/dL <=[address] [facility] Cholesterol in HDL [Mass/Vol] 77 mg/dL 40-[address] [facility] Comment on above: > or =60 mg/dl - LOW CARDIOVASCULAR RISK<40 mg/dl - HIGH CARDIOVASCULAR RISK CO2 [Moles/Vol] 26.6 mmol/L 21.0-32.0 [facility] Creatinine [Mass/Vol] 1.02 mg/dL 0.55-1.02 [facility] GFR/1.73 sq M.predicted MDRD (S/P/Bld) [Vol rate/Area] mL/min/{1.73_m2} >=[address] [facility] Glucose [Mass/Vol] 107 mg/dL 74-106 [facility] Potassium [Moles/Vol] 3.7 mmol/L 3.5-5.1 [facility] Protein [Mass/Vol] 7.3 g/dL 6.4-8.2 [facility] Sodium [Moles/Vol] 141 mmol/L 136-145 [facility] Triglyceride [Mass/Vol] 99 mg/dL <=150 [facility] TSH Qn 1.352 m[IU]/L 0.358-3.[address] [facility] Urea nitrogen [Mass/Vol] 9.0 mg/dL 7.0-18.[address] [facility] Urea nitrogen/Creatinine [Mass ratio] 8.8 mg/mg [facility] Laboratory - Hematology and Cell countson 11-18-2023 HbA1c (Bld) [Mass fraction] 5.1 % 4.5-6.[address] [facility] Comment on above: ADA RECOMMENDED LIMI T 4.0 - 6.0ADA THERAPEUTIC TARGET < 7.0ACTION SUGGESTED> 7.0 Immature granulocytes/100 WBC (Bld) 0.6 % 0.0-0.[address] [facility] Leukocytes [#/volume] correc sheeba for nucleated erythrocytes in Blood by Automated counon 11-18-2023 WBC corrected for nucl RBC Auto (Bld) [#/Vol] 6.5 10 3/uL 4.0-11.[address] [facility] Lymphocytes Auto (Bld) [#/Vo l]on 11-18-2023 Lymphocytes (Bld) [#/Vol] 1.7 10 3/uL 1.2-3.[address] [facility] Lymphocytes/100 WBC Auto (Bl d)on 11-18-2023 Lymphocytes/100 WBC (Bld) 25.3 % 20.5-60.[address] [facility] MCH Auto (RBC) [Entitic mass ]on 11-18-2023 MCH (RBC) [Entitic mass] 29.6 pg 26.7-34.[address] [facility] MCHC Auto (RBC) [Mass/Vol]on 11-18-2023 MCHC (RBC) [Mass/Vol] 32.1 g/dL 29.9-35.2 [facility] MCV Auto (RBC) [Entitic vol] on 11-18-2023 MCV (RBC) [Entitic vol] 92.3 fL 81.0-99.0 [facility] Monocytes Auto (Bld) [#/Vol] on 11-18-2023 Monocytes (Bld) [#/Vol] 0.5 10 3/uL 0.3-0.[address] [facility] Monocytes/100 WBC Auto (Bld) on 11-18-2023 Monocytes/100 WBC (Bld) 7.4 % 1.7-12.0 [facility] Neutrophils Auto (Bld) [#/Vo l]on 11-18-2023 Neutrophils (Bld) [#/Vol] 4.0 10 3/uL 1.4-6.5 [facility] [facility] Neutrophils/100 WBC Auto (Bl d)on 11-18-2023 Neutrophils/100 WBC (Bld) 61.3 % 43.0-75.[address] [facility] No Panel Informationon 11-17 Eosinophils # (Auto) 0.3 10 3/uL 0.0-0.7 [facility] Immature Granulocyte # (Auto) 0.04 10 3/uL 0.00-0.[address] [facility] Mallard Level 0.9 mmol/L 0.5-1.[address] [facility] Comment on above: A concentration of 0 .5-0.8 mmol/L is advised for long-termuse; concentrations of up to 1.2 mmol/L may be necessaryduring acute treatment. Detection Limit = 0.1 <0.1 indicates None DetectedPerformed at: [employer] [id number] Director: Reji Williamson PhD, Phone: [phone] Outside Mammographyon 2023 Outside Mammography [id number] #1.00TIFF Normal [facility] Platelet mean volume Auto (B ld) [Entitic vol]on 11-18-2023 Platelet mean volume (Bld) [Entitic vol] 10.1 fL 9.5-13.[address] [facility] Platelets Auto (Bld) [#/Vol] on 11-18-2023 Platelets (Bld) [#/Vol] 281 10 3/uL 150-[address] [facility] RBC Auto (Bld) [#/Vol]on RBC (Bld) [#/Vol] 5.07 10 6/uL 4.20-5.40 [facility] Serum or plasma albumin/glob ulin mass ratioon 11-18-2023 Albumin/Globulin [Mass ratio] 1.0 {ratio} [facility] Serum or plasma anion gap de terminationon 11-18-2023 Anion gap [Moles/Vol] 14.1 mmol/L [facility] Serum or plasma total choles terol/high density lipoprotein (HDL) cholesterol mass yoselyn 11-18-2023 Cholesterol.total/Choles terol in HDL [Mass ratio] 2.9 {ratio} [facility] Comment on above: 3.3 - 4.4 LOW RISK4. 4 - 7.1 AVERAGE RISK7.1 - 11.0 MODERATE RISK>11.0 HIGH RISK Physician Referralon 024 Physician Referral [id number] #1.00TIFF Normal [facility] XR LSPINE 2_3 VIEWSon 2022 XR LSPINE [...] with degenerative changes Electronically authenticated by: MAKEDA QUIROZ Date: 2022-12-06 11:24 Normal [facility] LITHIUMon 11-27-2022 Mallard (Eskalith(R)), Serum 0.8 mmol/L Normal 0.5-1.2 [facility] Comment on above: Result Comment: A co ncentration of 0.5-0.8 mmol/L is advised for long-term use; concentrations of up to 1.2 mmol/L may be necessary during acute treatment. Detection Limit = 0.1 <0.1 indicates None Detected Performed By: #### L ITHIUM ####[facility] [id number] [address]. Laurel Buckner CREATININEon 11-26-2022 Creatinine [Mass/Vol] 0.97 mg/dL Normal 0.55-1.02 [facility] Comment on above: Performed By: #### T SH, CREA #### [facility] [address] [address] [address] Laurel Buckner EGFR-AF ERITREAN >60 Normal >=60 [facility] Comment on above: Performed By: #### T SH, CREA #### [facility] [address] [address] [address] Laurel Buckner EGFR-NON AF ERITREAN 59 mL/min/1.73m2 Critically low >=60 [facility] Comment on above: Performed By: #### T SH, CREA #### [facility] [address] [address] [address] Laurel Buckner TSHon 11-26-2022 TSH 1.616 uIU/mL Normal 0.358-3.740 [facility] Comment on above: Performed By: #### T SH, CREA #### [facility] [address] [place] [address] Dr. Laurel uBckner MG MAMM SCREEN 3D TOMY CADon 11-14-2022 MG MAMM SCREEN 3D TOMY CAD Patient: RAIN SWEENEY Exam Date: 11/14/2022 : 1960 Gender:F Ordering : DR SEB BARRY M.D. Admission #: [id number] Family : Order #: [id number] CLICK HERE TO VIEW EXAM RADIOLOGY REPORT [...] colon cancer at age 62. LOCATION: [facility] BREAST COMPOSITION: Heterogeneously dense,which may obscure [...] LUMP SHOULD BE BIOPSIED. Dictated by: Makeda Quiroz MD on 11/14/2022 at 12:01 Approved by: Makeda Quiroz MD on 11/14/2022 at 12:03 Normal [facility] LITHIUMon 05-16-2022 Mallard (Eskalith(R)), Serum 0.8 mmol/L Normal 0.5-1.2 [facility] Comment on above: Result Comment: Plas ma concentration of 0.5 - 0.8 mmol/L are advised for long-term use; concentrations of up to 1.2 mmol/L may be necessary during acute treatment. Detection Limit = 0.1 <0.1 indicates None Detected Performed By: #### L ITHIUM #### [facility] [address] [place] [address] Dr. Laurel Buckner CBC AUTO DIFFon 05-15-2022 BASO # 0.1 103/ul Normal 0.0-0.1 [facility] Comment on above: Performed By: #### C BC #### [facility] [address] [place] [address] Dr. Laurel Buckner Basophils/100 WBC (Bld) 1.0 % Normal 0.2-2.0 [facility] Comment on above: Performed By: #### C BC #### [facility] [address] [place] [address] Dr. Laurel Buckner EO # 0.4 103/ul Normal 0.0-0.7 [facility] Comment on above: Performed By: #### C BC #### [facility] [address] [place] [address] Dr. Laurel Buckner Eosinophils/100 WBC (Bld) 5.3 % Normal 0.9-7.0 [facility] Comment on above: Performed By: #### C BC #### [facility] [address] [place] [address] Dr. Laurel Buckner Erythrocyte distribution width (RBC) [Ratio] 13.8 % Normal 11.0-15.0 [facility] Comment on above: Performed By: #### C BC #### [facility] [address] [place] [address] Dr. Laurel Buckner Hematocrit (Bld) [Volume fraction] 46.8 % Normal 36.0-48.0 [facility] Comment on above: Performed By: #### C BC #### [facility] [address] [place] [address] Dr. Laurel Buckner Hemoglobin (Bld) [Mass/Vol] 14.8 g/dL Normal 12.0-16.0 [facility] Comment on above: Performed By: #### C BC #### [facility] [address] [place] [address] Dr. Laurel Buckner IG # 0.07 10e3/ul Critically high 0.00-0.03 [facility] Comment on above: Performed By: #### C BC #### [facility] [address] [place] [address] Dr. Laurel Buckner IG % 1.0 % Critically high 0.0-0.5 [facility] Comment on above: Performed By: #### C BC #### [facility] [address] [place] [address] Dr. Laurel Buckner LYMPH # 1.7 103/ul Normal 1.2-3.8 [facility] Comment on above: Performed By: #### C BC #### [facility] [address] [place] [address] Dr. Laurel Buckner Lymphocytes/100 WBC (Bld) 25.4 % Normal 20.5-60.0 [facility] Comment on above: Performed By: #### C BC #### [facility] [address] [place] [address] Dr. Laurel Buckner MANUAL DIFF REQ NO Normal [facility] Comment on above: Performed By: #### C BC #### [facility] [address] [place] [address] Dr. Laurel Buckner MCH (RBC) [Entitic mass] 29.5 pg Normal 26.7-34.0 [facility] Comment on above: Performed By: #### C BC #### [facility] [address] [address] [address] Laurel Buckner MCHC (RBC) [Mass/Vol] 31.6 g/dL Normal 29.9-35.2 [facility] Comment on above: Performed By: #### C BC #### [facility] [address] [address] [address] Laurel Buckner MCV (RBC) [Entitic vol] 93.4 fL Normal 81.0-99.0 [facility] Comment on above: Performed By: #### C BC #### [facility] [address] [address] [address] Laurel Buckner MONO # 0.6 103/ul Normal 0.3-0.8 [facility] Comment on above: Performed By: #### C BC #### [facility] [address] [place] [address] Dr. Laurel Buckner Monocytes/100 WBC (Bld) 8.4 % Normal 1.7-12.0 [facility] Comment on above: Performed By: #### C BC #### [facility] [address] [place] [address] Dr. Laurel Buckner NEUT # 4.0 103/ul Normal 1.4-6.5 [facility] Comment on above: Performed By: #### C BC #### [facility] [address] [place] [address] Dr. Laurel Buckner Neutrophils/100 WBC (Bld) 58.9 % Normal 43.0-75.0 [facility] Comment on above: Performed By: #### C BC #### [facility] [address] [address] [address] Laurel Buckner Platelet mean volume (Bld) [Entitic vol] 10.1 fL Normal 9.5-13.5 [facility] Comment on above: Performed By: #### C BC #### [facility] [address] [place] [address] Dr. Laurel Buckner PLT 279 103/ul Normal 150-450 [facility] Comment on above: Result Comment: smea r reviewed Performed By: #### C BC #### [facility] [address] [place] [address] Dr. Laurel Buckner RBC 5.01 106/ul Normal 4.20-5.40 [facility] Comment on above: Performed By: #### C BC #### [facility] [address] [place] [address] Dr. Laurel Buckner WBC 6.8 103/ul Normal 4.0-11.0 [facility] Comment on above: Performed By: #### C BC #### [facility] [address] [place] [address] Dr. Laurel Buckner GLYCOHEMOGLOBIN A1Con 2021 ADA RECOMMENDATION SEE BELOW Normal [facility] Comment on above: Result Comment: ADA RECOMMENDED LIMIT 4.0 - 6.0 ADA THERAPEUTIC TARGET < 7.0 ACTION SUGGESTED > 7.0 Performed By: #### A 1C #### [facility] [address] [place] [address] Dr. Laurel Buckner Glucose [Mass/Vol] 97 mg/dL Normal [facility] Comment on above: Performed By: #### A 1C #### [facility] [address] [place] [address] Dr. Laurel Buckner HbA1c (Bld) [Mass fraction] 5.0 % Normal 4.5-6.2 [facility] Comment on above: Performed By: #### A 1C #### [facility] [address] [place] [address] Dr. Laurel Buckner LIPID PROFILEon 05-15-2022 CHOL-HDL RATIO NORM SEE BELOW Normal [facility] Comment on above: Result Comment: 3.3 - 4.4 LOW RISK 4.4 - 7.1 AVERAGE RISK 7.1 - 11.0 MODERATE RISK >11.0 HIGH RISK Performed By: #### L IPID, TSH, CMP #### [facility] [address] [place] [address] Dr. Laurel Buckner Cholesterol [Mass/Vol] 279 mg/dL Critically high <=200 [facility] Comment on above: Performed By: #### L IPID, TSH, CMP #### [facility] [address] [address] [address] Laurel Buckner Cholesterol in HDL [Mass/Vol] 76 mg/dL Critically high 40-60 [facility] Comment on above: Performed By: #### L IPID, TSH, CMP #### [facility] [address] [address] [address] Laurel Buckner Cholesterol in LDL [Mass/Vol] 162.8 mg/dL Normal [facility] Comment on above: Performed By: #### L IPID, TSH, CMP #### [facility] [address] [address] [address] Laurel Buckner Cholesterol.total/Choles terol in HDL [Mass ratio] 3.7 {ratio} Normal [facility] Comment on above: Performed By: #### L IPID, TSH, CMP #### [facility] [address] [address] [address] Laurel Buckner HDL NORMAL > or = 60 mg/dl - LOW CARDIOVASCULAR RISK <40 mg/dl - HIGH CARDIOVASCULAR RISK Normal [facility] Comment on above: Performed By: #### L IPID, TSH, CMP #### [facility] [address] [address] [address] Laurel Buckner LDL CALC NORMAL SEE BELOW Normal [facility] Comment on above: Result Comment: <100 mg/dl OPTIMAL 100 - 129 mg/dl NEAR OR ABOVE OPTIMAL 130 - 159 mg/dl BORDERLINE HIGH 160 - 189 mg/dl HIGH >190 mg/dl VERY HIGH Performed By: #### L IPID, TSH, CMP #### [facility] [address] [address] [address] Laurel Buckner Triglyceride [Mass/Vol] 201 mg/dL Critically high <=150 [facility] Comment on above: Performed By: #### L IPID, TSH, CMP #### [facility] [address] [address] [address] Laurel Buckner VLDL CALC 40.2 mg/dL Normal [facility] Comment on above: Performed By: #### L IPID, TSH, CMP #### [facility] [address] [address] [address] Laurel Buckner PROF 14(COMP METB)on 022 Albumin [Mass/Vol] 3.6 g/dL Normal 3.4-5.0 [facility] Comment on above: Performed By: #### L IPID, TSH, CMP #### [facility] [address] [address] [address] Laurel Buckner Albumin/Globulin [Mass ratio] 0.9 {ratio} Normal [facility] Comment on above: Performed By: #### L IPID, TSH, CMP #### [facility] [address] [address] [address] Laurel Buckner ALP [Catalytic activity/Vol] 110 U/L Normal 46-116 [facility] Comment on above: Performed By: #### L IPID, TSH, CMP #### [facility] [address] [place] [address] Dr. Laurel Buckner ALT [Catalytic activity/Vol] 22 U/L Normal 14-59 [facility] Comment on above: Performed By: #### L IPID, TSH, CMP #### [facility] [address] [address] [address] Laurel Buckner Anion gap [Moles/Vol] 10.8 mmol/L Normal [facility] Comment on above: Performed By: #### L IPID, TSH, CMP #### [facility] [address] [place] [address] Dr. Laurel Buckner AST [Catalytic activity/Vol] 11 U/L Critically low 15-37 [facility] Comment on above: Performed By: #### L IPID, TSH, CMP #### [facility] [address] [address] [address] Laurel Buckner Bilirubin [Mass/Vol] 0.3 mg/dL Normal 0.2-1.0 [facility] Comment on above: Performed By: #### L IPID, TSH, CMP #### [facility] [address] [address] [address] Laurel Buckner Calcium [Mass/Vol] 9.1 mg/dL Normal 8.5-10.1 [facility] Comment on above: Performed By: #### L IPID, TSH, CMP #### [facility] [address] [address] [address] Laurel Buckner Chloride [Moles/Vol] 103 mmol/L Normal 98-107 [facility] Comment on above: Performed By: #### L IPID, TSH, CMP #### [facility] [address] [place] [address] Dr. Laurel Buckner CO2 [Moles/Vol] 27.9 mmol/L Normal 21.0-32.0 [facility] Comment on above: Performed By: #### L IPID, TSH, CMP #### [facility] [address] [place] [address] Dr. Laurel Buckner Creatinine [Mass/Vol] 0.96 mg/dL Normal 0.55-1.02 [facility] Comment on above: Performed By: #### L IPID, TSH, CMP #### [facility] [address] [place] [address] Dr. Laurel Buckner EGFR-AF ERITREAN >60 Normal >=60 [facility] Comment on above: Performed By: #### L IPID, TSH, CMP #### [facility] [address] [place] [address] Dr. Laurel Buckner EGFR-NON AF ERITREAN 59 mL/min/1.73m2 Critically low >=60 [facility] Comment on above: Performed By: #### L IPID, TSH, CMP #### [facility] [address] [place] [address] Dr. Laurel Buckner Globulin (S) [Mass/Vol] 3.9 g/dL Normal [facility] Comment on above: Performed By: #### L IPID, TSH, CMP #### [facility] [address] [place] [address] Dr. Laurel Buckner Glucose [Mass/Vol] 90 mg/dL Normal 74-106 [facility] Comment on above: Performed By: #### L IPID, TSH, CMP #### [facility] [address] [place] [address] Dr. Laurel Buckner Potassium [Moles/Vol] 3.7 mmol/L Normal 3.5-5.1 [facility] Comment on above: Performed By: #### L IPID, TSH, CMP #### [facility] [address] [address] [address] Laurel Buckner Protein [Mass/Vol] 7.5 g/dL Normal 6.4-8.2 [facility] Comment on above: Performed By: #### L IPID, TSH, CMP #### [facility] [address] [address] [address] Laurel Buckner Sodium [Moles/Vol] 138 mmol/L Normal 136-145 [facility] Comment on above: Performed By: #### L IPID, TSH, CMP #### [facility] [address] [place] [address] Dr. Laurel Buckner Urea nitrogen [Mass/Vol] 16.0 mg/dL Normal 7.0-18.0 [facility] Comment on above: Performed By: #### L IPID, TSH, CMP #### [facility] [address] [place] [address] Dr. Laurel Buckner Urea nitrogen/Creatinine [Mass ratio] 16.7 mg/mg Normal [facility] Comment on above: Performed By: #### L IPID, TSH, CMP #### [facility] [address] [place] [address] Dr. Laurel Buckner TSHon 05-15-2022 TSH 3.094 uIU/mL Normal 0.358-3.740 [facility] Comment on above: Performed By: #### L IPID, TSH, CMP #### [facility] [address] [place] [address] Dr. Laurel Buckner Vital Signs Date Time Vital Sign Value Performing Clinician Facility 07-05-2024 10:04-0500 Blood Pressure Location HAMILTON MALONE [facility] 07-05-2024 10:04-0500 Diastolic blood pressure 90 mm[Hg] HAMILTON MALONE [facility] 07-05-2024 10:04-0500 Heart rate 109 /min HAMILTON NKANSAH-AMANKRA [facility] 07-05-2024 10:04-0500 Systolic blood pressure 155 mm[Hg] HAMILTON NKANSAH-AMANKRA [facility] 06-24-2024 10:02-0500 Heart rate 89 /min HAMILTON NKANSAH-AMANKRA [facility] 06-24-2024 10:02-0500 SaO2% (BldA) [Mass fraction] 97 % HAMILTON NKANSAH-AMANKRA [facility] 06-24-2024 10:01-0500 Blood Pressure Location HAMILTON NKANSAH-AMANKRA [facility] 06-24-2024 10:01-0500 Diastolic blood pressure 88 mm[Hg] HAMILTON NKANSAH-AMANKRA [facility] 06-24-2024 10:01-0500 Mean blood pressure 104 mm[Hg] HAMILTON NKANSAH-AMANKRA [facility] 06-24-2024 10:01-0500 Systolic blood pressure 137 mm[Hg] HAMILTON NKANSAH-AMANKRA [facility] 06-24-2024 10:01-0500 Respiratory rate 16 /min HAMILTON NKANSAH-AMANKRA [facility] 06-24-2024 09:21-0500 Heart rate 95 /min HAMILTON NKANSAH-AMANKRA [facility] 06-24-2024 09:21-0500 SaO2% (BldA) [Mass fraction] 95 % HAMILTON NKANSAH-AMANKRA [facility] 06-24-2024 09:20-0500 Blood Pressure Location HAMILTON NKANSAH-AMANKRA [facility] 06-24-2024 09:20-0500 Diastolic blood pressure 88 mm[Hg] HAMILTON NKANSAH-AMANKRA [facility] 06-24-2024 09:20-0500 Mean blood pressure 103 mm[Hg] HAMILTON NKANSAH-AMANKRA [facility] 06-24-2024 09:20-0500 Systolic blood pressure 134 mm[Hg] HAMILTON NKANSAH-AMANKRA [facility] 06-24-2024 09:20-0500 Respiratory rate 18 /min HAMILTON NKANSAH-AMANKRA [facility] 06-24-2024 09:13-0500 Body temperature 98.06 [degF] HAMILTON NKANSAH-AMANKRA [facility] 06-24-2024 09:13-0500 Mean blood pressure 92 mm[Hg] HAMILTON NKANSAH-AMANKRA [facility] 06-24-2024 09:13-0500 Respiratory rate 16 /min HAMILTON NKANSAH-AMANKRA [facility] 06-24-2024 08:48-0500 Body temperature 97.7 [degF] HAMILTON NKANSAH-AMANKRA [facility] 06-24-2024 08:48-0500 Mean blood pressure 86 mm[Hg] HAMILTON NKANSAH-AMANKRA [facility] 06-24-2024 07:00-0500 Heart rate 100 /min HAMILTON NKANSAH-AMANKRA [facility] 06-24-2024 06:56-0500 Body temperature 98.24 [degF] HAMILTON NKANSAH-AMANKRA [facility] 06-21-2024 10:32-0500 Body height 170.18 cm Adamaris Liz PHYSICAL THERAPIST Work Phone: [facility] 06-21-2024 10:32-0500 Body mass index (BMI) [Ratio] 28.8 kg/m2 Adamaris Liz PHYSICAL THERAPIST Work Phone: [facility] 06-21-2024 10:32-0500 Body weight 83.46 kg Adamaris Liz PHYSICAL THERAPIST Work Phone: [facility] 06-21-2024 10:32-0500 Diastolic blood pressure 85 mm[Hg] Adamaris Liz PHYSICAL THERAPIST Work Phone: [facility] 06-21-2024 10:32-0500 Heart rate 102 /min Adamaris Liz PHYSICAL THERAPIST Work Phone: [facility] 06-21-2024 10:32-0500 Systolic blood pressure 133 mm[Hg] Adamaris Liz PHYSICAL THERAPIST Work Phone: [facility] 06-18-2024 15:48-0500 Diastolic blood pressure 89 mm[Hg] HAMILTON NKANSAH-AMANKRA [facility] 06-18-2024 15:48-0500 Heart rate 87 /min HAMILTON NKANSAH-AMANKRA [facility] 06-18-2024 15:48-0500 Mean blood pressure 106 mm[Hg] HAMILTON NKANSAH-AMANKRA [facility] 06-18-2024 15:48-0500 Systolic blood pressure 139 mm[Hg] HAMILTON NKANSAH-AMANKRA [facility] 06-18-2024 15:48-0500 Heart rate 59 /min HAMILTON NKANSAH-AMANKRA [facility] 06-18-2024 15:48-0500 SaO2% (BldA) [Mass fraction] 99 % HAMILTON NKANSAH-AMANKRA [facility] 06-18-2024 15:47-0500 Diastolic blood pressure 72 mm[Hg] HAMILTON NKANSAH-AMANKRA [facility] 06-18-2024 15:47-0500 Mean blood pressure 90 mm[Hg] HAMILTON NKANSAH-AMANKRA [facility] 06-18-2024 15:47-0500 Systolic blood pressure 126 mm[Hg] HAMILTON NKANSAH-AMANKRA [facility] 06-11-2024 09:42-0400 Blood Pressure Location HAMILTON NKANSAH-AMANKRA [facility] 06-11-2024 09:42-0400 Diastolic blood pressure 88 mm[Hg] HAMILTON NKANSAH-AMANKRA [facility] 06-11-2024 09:42-0400 Heart rate 103 /min HAMILTON NKANSAH-AMANKRA [facility] 06-11-2024 09:42-0400 Respiratory rate 20 /min HAMILTON NKANSAH-AMANKRA [facility] 06-11-2024 09:42-0400 Systolic blood pressure 149 mm[Hg] HAMILTON NKANSAH-AMANKRA [facility] 05-25-2024 10:30-0400 Blood Pressure Location KARON FLORES [facility] 05-25-2024 10:30-0400 Diastolic blood pressure 74 mm[Hg] KARON FLORES [facility] 05-25-2024 10:30-0400 Heart rate 104 /min KARON FLORES [facility] 05-25-2024 10:30-0400 Systolic blood pressure 138 mm[Hg] KARON FLORES [facility] 05-19-2024 10:20-0400 Body height 170.18 cm PHYSICIAN NO [facility] 05-19-2024 10:20-0400 Body mass index (BMI) [Ratio] 27.3 kg/m2 PHYSICIAN NO [facility] 05-19-2024 10:20-0400 Body temperature 97.8 [degF] PHYSICIAN NO [facility] 05-19-2024 10:20-0400 Body weight 79.37 kg PHYSICIAN NO [facility] 05-19-2024 10:20-0400 Diastolic blood pressure 95 mm[Hg] PHYSICIAN NO [facility] 05-19-2024 10:20-0400 Heart rate 111 /min PHYSICIAN NO [facility] 05-19-2024 10:20-0400 Respiratory rate 18 /min PHYSICIAN NO [facility] 05-19-2024 10:20-0400 SaO2% (BldA) [Mass fraction] 97 % PHYSICIAN NO [facility] 05-19-2024 10:20-0400 Systolic blood pressure 147 mm[Hg] PHYSICIAN NO [facility] 01-30-2024 09:36-0400 Body height 170.18 cm PHYSICIAN NO [facility] 01-30-2024 09:36-0400 Body mass index (BMI) [Ratio] 26.7 kg/m2 PHYSICIAN NO [facility] 01-30-2024 09:36-0400 Body weight 77.56 kg PHYSICIAN NO [facility] 01-30-2024 09:36-0400 Diastolic blood pressure 80 mm[Hg] PHYSICIAN NO [facility] 01-30-2024 09:36-0400 Heart rate 108 /min PHYSICIAN NO [facility] 01-30-2024 09:36-0400 Systolic blood pressure 114 mm[Hg] PHYSICIAN NO [facility] 11-19-2023 13:56-0400 Blood Pressure Location Dieter [employer] [facility] [place] 11-19-2023 13:56-0400 Diastolic blood pressure 92 mm[Hg] Dieter BUSTOSL [facility] [place] 11-19-2023 13:56-0400 Heart rate 72 /min Dieter NILL [facility] [place] 11-19-2023 13:56-0400 Respiratory rate 16 /min Dieter NILL [facility] [place] 11-19-2023 13:56-0400 Systolic blood pressure 132 mm[Hg] Dieter NILL [facility] [place] 11-12-2023 10:20-0400 Body height 170.18 cm PHYSICIAN NO [facility] 11-12-2023 10:20-0400 Body mass index (BMI) [Ratio] 28 kg/m2 PHYSICIAN NO [facility] 11-12-2023 10:20-0400 Body weight 81.36 kg PHYSICIAN NO [facility] 11-12-2023 10:20-0400 Diastolic blood pressure 77 mm[Hg] PHYSICIAN NO [facility] 11-12-2023 10:20-0400 Heart rate 124 /min PHYSICIAN NO [facility] 11-12-2023 10:20-0400 Systolic blood pressure 124 mm[Hg] PHYSICIAN NO [facility] 10-22-2023 09:23-0400 Body height 170.18 cm PHYSICIAN NO [facility] 10-22-2023 09:23-0400 Body mass index (BMI) [Ratio] 29.1 kg/m2 PHYSICIAN NO [facility] 10-22-2023 09:23-0400 Body weight 84.36 kg PHYSICIAN NO [facility] 10-22-2023 09:23-0400 Diastolic blood pressure 85 mm[Hg] PHYSICIAN NO [facility] 10-22-2023 09:23-0400 Heart rate 106 /min PHYSICIAN NO [facility] 10-22-2023 09:23-0400 Systolic blood pressure 140 mm[Hg] PHYSICIAN NO [facility] 05-29-2023 14:00-0400 Body height 170.18 cm Helio Barry Other [employer] [facility] [employer] Other 05-29-2023 14:00-0400 Body mass index (BMI) [Ratio] 29.44 kg/m2 Helio Barry Other [employer] [facility] [employer] Other 05-29-2023 14:00-0400 Body weight 85.28 kg Helio Barry Other [employer] Other 05-05-2023 08:30-0400 Body height 170.18 cm Seb Barry Other [employer] Other 05-05-2023 08:30-0400 Body mass index (BMI) [Ratio] 29.44 kg/m2 Seb Barry Other [employer] Other 05-05-2023 08:30-0400 Body weight 85.28 kg Seb Barry Other [employer] Other 05-05-2023 08:30-0400 Diastolic blood pressure 82 mm[Hg] Seb Barry Other [employer] Other 05-05-2023 08:30-0400 Systolic blood pressure 128 mm[Hg] Seb Barry Other [employer] Other 04-01-2023 10:00-0400 Body height 170.18 cm Seb Barry Other [employer] Other 04-01-2023 10:00-0400 Body mass index (BMI) [Ratio] 29.13 kg/m2 Seb Barry Other [employer] Other 04-01-2023 10:00-0400 Body weight 84.37 kg Seb Barry Other [employer] Other 04-01-2023 10:00-0400 Diastolic blood pressure 86 mm[Hg] Seb Barry Other [employer] Other 04-01-2023 10:00-0400 Systolic blood pressure 148 mm[Hg] Seb Barry Other [employer] Other Encounters Encounter Date Encounter Type Care Provider Facility Start: 07-12-2024 ambulatory PHYSICIAN NO FAMILY Fac ility:[facility] Start: 07-05-2024 End: 07-07-2024 Pre-admission assessment HAMILTON SIMISANDEEP-LAMARRA [facility] Start: 07-05-2024 End: 07-05-2024 ambulatory HAMILTON MAHARAJ-NICOLAANKRA Facility:[facility] Start: 07-05-2024 End: 07-05-2024 Patient encounter procedure HAMILTON SIMISANDEEP-AMANKRA [facility] Start: 06-24-2024 End: 06-24-2024 Admission to same day surgery center HAMILTON MALONE [facility] Start: 06-24-2024 End: 06-24-2024 ambulatory HAMILTON MALONE Facility[place] Start: 06-21-2024 End: 06-21-2024 ambulatory NON STAFF [facility] Work Phone: Start: 06-21-2024 End: 06-21-2024 Patient encounter procedure Adamaris Hill PHYSICAL THERAPIST Work Phone: [facility] Work Phone: Start: 06-18-2024 End: 06-18-2024 ambulatory HAMILTON MALONE Facility:[facility] Start: 06-18-2024 End: 06-18-2024 Patient encounter procedure HAMILTON MALONE [facility] Start: 06-14-2024 Registered Recurring Adamaris gomez PHYSICAL THERAPIST Work Phone: [facility] Start: 06-11-2024 End: 06-11-2024 ambulatory HAMILTON MALONE Facility: [place] Start: 06-11-2024 End: 06-11-2024 Patient encounter procedure HAMILTON MALONE [facility] Start: 06-04-2024 End: 06-04-2024 Departed Referred Adamaris Hill PHYSICAL THERAPIST Work Phone: [facility] Work Phone: Start: 06-04-2024 End: 06-04-2024 ambulatory PHYSICIAN NO [facility] Work Phone: Start: 06-04-2024 End: 06-04-2024 Patient encounter procedure PHYSICIAN NO [facility] Work Phone: Start: 05-26-2024 Non-patient / Non-visit PHYSICIAN NO [facility] Work Phone: Start: 05-25-2024 End: 05-25-2024 ambulatory KARONMARIAELENA FLORES Facility:[facility] Start: 05-25-2024 End: 05-25-2024 Patient encounter procedure KARON FLORES [facility] Start: 05-19-2024 End: 05-19-2024 Departed Referred PHYSICIAN NO [facility] Work Phone: Start: 05-19-2024 End: 05-19-2024 ambulatory PHYSICIAN NO [facility] Work Phone: Start: 05-19-2024 End: 05-19-2024 Patient encounter procedure PHYSICIAN NO [facility] [place] Work Phone: Start: 05-04-2024 Non-patient / Non-visit PHYSICIAN NO [facility] Work Phone: Start: 05-04-2024 Registered Recurring PHYSICIAN NO [facility] Start: 04-21-2024 End: 04-27-2024 Clinisync Result Encounter Faiza BURTON Work Phone: [facility] External Department Unsolicited Start: 04-21-2024 End: 04-23-2024 External Result Encounter Faiza BURTON Work Phone: [facility] External Department Unsolicited Start: 04-21-2024 End: 04-27-2024 External Result Encounter Faiza BURTON Work Phone: [facility] External Department Unsolicited Start: 04-21-2024 Non-patient / Non-visit PHYSICIAN NO [facility] Work Phone: Start: 04-21-2024 End: 04-21-2024 ambulatory FAIZA ALMENDAREZ Not Available Start: 04-09-2024 Non-patient / Non-visit PHYSICIAN NO [facility] Work Phone: Start: 02-26-2024 End: 02-26-2024 ambulatory Beryl Henderson Facility:[facility] Start: 02-26-2024 End: 02-26-2024 Patient encounter procedure Beryl Henderson [facility] Start: 01-30-2024 End: 01-30-2024 ambulatory PHYSICIAN NO [facility] Work Phone: Start: 01-30-2024 End: 01-30-2024 Patient encounter procedure PHYSICIAN NO [facility] Work Phone: Start: 01-14-2024 End: 01-14-2024 ambulatory Dieter R NILL Facility:[facility] Start: 01-14-2024 End: 01-14-2024 Patient encounter procedure Dieter R NILL [facility] [place] Start: 01-13-2024 ambulatory Dieter R NILL Facility :[facility] Start: 12-31-2023 End: 12-31-2023 ambulatory PHYSICIAN NO [facility] Work Phone: Start: 12-31-2023 End: 12-31-2023 Departed Referred PHYSICIAN NO [facility] Start: 12-31-2023 End: 12-31-2023 ambulatory Dieter R NILL Facility:[id number] Start: 12-09-2023 Registered Recurring PHYSICIAN NO [facility] Start: 11-19-2023 End: 11-19-2023 ambulatory Dieter R NILL Facility:[facility] Start: 11-19-2023 End: 11-19-2023 Patient encounter procedure Dieter LOCO [facility] Nill/Said Suhail Start: 11-18-2023 Non-patient / Non-visit PHYSICIAN NO [facility] [employer] Work Phone: Start: 11-17-2023 ambulatory Dieter LOCO Facility:[facility] Start: 11-14-2023 ambulatory Dieter BUSTOSL Facility:[facility] Start: 11-12-2023 End: 11-12-2023 ambulatory PHYSICIAN NO [facility] Work Phone: Start: 11-12-2023 End: 11-12-2023 Patient encounter procedure PHYSICIAN NO [facility] Work Phone: Start: 11-04-2023 Registered Recurring PHYSICIAN NO [facility] Start: 10-22-2023 Patient encounter status PHYSICIAN NO [facility] Start: 10-22-2023 End: 10-22-2023 Encounter for general adult medical examination without abnormal findings PHYSICIAN NO [facility] Start: 10-22-2023 End: 10-22-2023 Patient encounter procedure PHYSICIAN NO [facility] Work Phone: Start: 09-09-2023 Registered Recurring PHYSICIAN NO [facility] Start: 05-30-2023 End: 05-30-2023 ambulatory Helio Barry Other [facility] [employer] Other Start: 05-30-2023 Telephone encounter Helio Barry [facility] [employer] Start: 05-29-2023 Office outpatient ne w [address] [facility] Start: 05-29-2023 End: 05-29-2023 ambulatory MD Seb Barry Work Phone: [facility] Work Phone: Start: 05-29-2023 End: 05-29-2023 Patient encounter procedure MD Seb Barry Work Phone: [facility] Work Phone: Start: 05-16-2023 End: 05-16-2023 ambulatory Seb Barry Other [employer] Other Start: 05-16-2023 [address]phone [address] Seb Barry [facility] Start: 05-05-2023 End: 05-05-2023 ambulatory Seb Barry Other [employer] Other Start: 05-05-2023 Office outpatient vi sit [address] [facility] Start: 04-07-2023 End: 04-07-2023 ambulatory Seb Barry Other [employer] Other Start: 04-07-2023 [address] Seb Barry [facility] Start: 04-01-2023 End: 04-01-2023 ambulatory Seb Barry Other [employer] Other Start: 04-01-2023 Office outpatient vi sit [address] [facility] Start: 12-27-2022 ambulatory GOLDY GLOVER Facility: [facility] Start: 12-23-2022 End: 12-23-2022 ambulatory Goldy Glover Other [employer] Other Start: 12-23-2022 Office outpatient ne w 45 minutes Goldy Glover [facility] [place] Start: 12-06-2022 Telephone encounter Seb Barry [facility] Start: 12-06-2022 End: 12-07-[address] SEB BARRY [employer] Other Start: 11-26-2022 End: 11-27-2022 ambulatory REGULO HINDS Facility:[facility] Start: 11-14-2022 End: 11-15-[address] SEB BARRY Facility:[facility] Start: 05-17-2022 Encounter for genera l adult medical examination without abnormal findings DR SEB BARRY [facility] Start: 05-15-2022 End: 05-16-[address] SEB BARRY Facility:[facility] Start: 05-15-2022 End: 05-16-2022 Encounter for general adult medical examination without abnormal findings DR SEB BARRY Facility:[facility] Start: 05-14-2022 Adult health examination Seb Barry Other [employer] Other Start: 04-18-2022 End: 04-18-2022 ambulatory Paresh Marily Other [employer] Other Start: 04-18-2022 Telephone encounter Paresh Marily [facility] Start: 02-27-2022 End: 02-27-2022 ambulatory Paresh Marily Other [employer] Other Start: 02-27-2022 Telephone encounter Paresh Marily [facility] [employer] Start: 02-05-2022 ambulatory PARESH MARILY Facility:[facility] Start: 12-13-2021 End: 12-13-2021 ambulatory Paresh Marily Other [employer] Other Start: 12-13-2021 Telephone encounter Paresh Marily [facility] Start: 09-19-2021 End: 09-19-2021 ambulatory Paresh Marily Other [employer] Other Start: 09-19-2021 Telephone encounter Paresh Marily [facility] Start: 09-05-2021 End: 09-05-2021 ambulatory Paresh Marily Other [employer] Other Start: 09-05-2021 Telephone encounter Paresh Marily [facility] Procedures Date Procedure Procedure Detail Performing Clinician Start: 06-24-2024 Cystoscopy HAMILTON HOPKINS-MARK Start: 06-04-2024 Urine culture Adamaris Gr ob PHYSICAL THERAPIST Work Phone: Start: 05-19-2024 Bacteria identified in Urine by Culture PHYSICIAN NO FAMILY Start: 05-19-2024 Urine culture Adamaris Gr ob PHYSICAL THERAPIST Work Phone: Start: 04-21-2024 IGP,APTIMA HPV,AGE GDLN Faiza BURTON Work Phone: Start: 04-21-2024 URETHRITIS/DISCHARGE PLUS VAGINITIS (HTRX) Faiza BURTON Work Phone: Start: 05-29-2023 X-ray of lumbar spin e, six views including bending views MD Seb Barry Work Phone: Start: 09-02-2019 Mammography Faiza BURTON Work Phone: History of augmentat ion of breast KARON FLORES History of bilateral breast implants Dieter NILL History of nasal sin us surgery Dieter NILL Ligation of fallopian tube Sarath BUSTOSL Screening for malign ant neoplasm of breast Seb Barry Other Screening for malign ant neoplasm of colon Seb Barry Other Stapedectomy Dieter BUSTOSL Plan of Treatment Date Care Activity Detail Author Start: 04-25-2025 End: 04-25-2025 Patient encounter procedure 04/25/2025 9:00 AM EDT Office Visit [facility] OB [address] [place] [address] Faiza Almendarez PA [address] [place] [address] [facility] Start: 06-04-2024 Urine culture [facility] Start: 05-19-2024 Bacteria identified in Urine by Culture Urine Culture [facility] Start: 05-19-2024 Urine culture [facility] Start: 04-11-2024 Influenza vaccination Influenza Vacc ine (#1) [facility] Start: 11-12-2023 Patient referral [facility] Work Phone: Start: 09-02-2020 Screening for malign ant neoplasm of breast Mammogram [facility] Start: 1992 Screening for malign ant neoplasm of cervix [facility] Start: 1983 Screening for malign ant neoplasm of cervix Pap Smear [facility] Start: 1962 Screening for malign ant neoplasm of colon [facility] MG Breast - bilatera l Diagnostic [facility] Patient Education Yearly Physica l for Adults [facility] Work Phone: Patient referral [facility] Work Phone: Immunizations Immunization Date Immunization Notes Care Provider Ed bran 10-12-2022 influenza virus vaccine, unspecified formulation Dieter LOCO [facility] [place] 10-12-2022 influenza, injectabl e, quadrivalent, preservative free Seb Barry Other [facility] 02-19-2022 diphtheria, tetanus toxoids and acellular pertussis vaccine, unspecified formulation Seb Barry Other [facility] 02-19-2022 tetanus toxoid, reduced diphtheria toxoid, and acellular pertussis vaccine, adsorbed Seb Barry Other [facility] 08-07-2021 COVID-19 Vaccine Moderna - Documentation Purposes Only Seb Barry Other [facility] 05-28-2021 influenza virus vaccine, split virus (incl. purified surface antigen) Seb Barry Other [employer] Other 05-28-2021 influenza virus vaccine, unspecified formulation PHYSICIAN NO FAMILY [facility] 12-09-2020 COVID-19 Vaccine Moderna - Documentation Purposes Only Seb Barry Other [facility] 11-11-2020 COVID-19 Vaccine Moderna - Documentation Purposes Only Seb Barry Other [facility] Payers Date Payer Category Payer Managed Care HMO (unspecified) RAFA CRAIG [id number] 2021-Present [address] [place] [id number] HMO [id number] 1960 Unknown [id number] [id number] .593 1962 Unknown [id number] 2.16.840.1.171475.3.579.2 .593 1962 Unknown [id number] 2.16.840.1.729884.3.579.2 .593 1962 Unknown [id number] 2.16.840.1.218866.3.579.2 .593 1962 Unknown [id number] 2.16.840.1.265337.3.579.2 .593 1962 Unknown [id number] 2.16.840.1.089664.3.579.2 .593 1962 Unknown [id number] 2.16.840.1.867268.3.579.2 .1259 1962 Unknown [id number] 2.16.840.1.607978.3.579.2 .727 1962 Unknown [id number] 2.16.840.1.703854.3.579.2 .727 1962 Unknown [id number] 2.16.840.1.506404.3.579.2 .727 1962 Unknown [id number] 2.16.840.1.321622.3.579.2 .727 1962 Unknown [id number] 2.16.840.1.006462.3.579.2 .727 1962 Unknown [id number] 2.16.840.1.956252.3.579.2 .727 1962 Unknown [id number] 2.16.840.1.522769.3.579.2 .727 1962 Unknown [id number] 2.16.840.1.067905.3.579.2 .727 1962 Unknown [id number] 2.16.840.1.183038.3.579.2 .727 1962 Unknown [id number] 2.16.840.1.208202.3.579.2 .727 1962 Unknown [id number] 2.16.840.1.447998.3.579.2 .727 1959 Private Health Insurance [id number] 2.16.840.1.375341.19 1959 Private Health Insurance [id number] Self-pay [facility] [id number] 2.16.840.1.218522.19 Private Health Insurance [id number] Unknown [id number] 2.16.840.1.174411.3.579.2 .531 Unknown [id number] 2.16.840.1.505118.3.579.2 .531 Unknown [id number] 2.16.840.1.285916.3.579.2 .531 Social History Date Type Detail Facility Sex Assigned At [facility] Start: 1960 Sex Assigned At Female F [facility] Start: 05-29-2023 End: 07-05-2024 Tobacco smoking status NHIS Never smoked tobacco (finding) [facility] Tobacco smoking status Never [facility] [place] Start: 06-21-2024 Sex Female (finding) [facility] Tobacco smoking status NHIS Tobacco smoking consumption unknown [facility] Start: 1960 Sex assigned at Not on file N [facility] Functional Status Date Assessment Result Facility 07-05-2024 Functional Status N/A [facility] 06-18-2024 Functional Status No [facility] 06-11-2024 Functional Status N/A [facility] [place] 05-25-2024 Functional Status N/A [facility] Suhail 11-19-2023 Functional Status N/A General Guy [facility] Clinical Notes 12-13-2021 to 07-05-2024 Note Date & Type Note Facility 07-05-2024 Hospital Discharg e instructions Patient Education 07/05/2024 10:12:42 Urethral Vaginal Sling Urethral Vaginal Sling A urethral vaginal sling procedure is surgery to correct urinary incontinence. Urinary incontinence is passing urine without one's control. It is common in older women and in women who have had children. In this surgery, a strong piece of material is placed under the tube that drains the bladder (urethra). This sling is made of tension-free vaginal tape or nylon mesh. It fits under the urethra like a hammock. The sling is put in position to straighten, support, and hold the urethra in its normal position. Tell a health care provider about: Any allergies you have. All medicines you are taking, including vitamins, herbs, eye drops, creams, and xbad-cat-uueefcy medicines. Any problems you or family members have had with anesthetic medicines. Any blood disorders you have. Any surgeries you have had. Any medical conditions you have. Whether you are or may be . What are the risks? Generally, this is a safe procedure. However, problems may occur, including: Infection. Excessive bleeding. Allergic reactions to medicines. Damage to nearby structures or organs. Problems urinating for several days or weeks. Return of the urinary incontinence. Mesh failure. Be sure to talk with your health care provider about the options you have for sling material and the risks associated with each material. What happens before the procedure? Staying hydrated Follow instructions from your health care provider about hydration, which may include: Up to 2 hours before the procedure you may continue to drink clear liquids, such as water, clear fruit juice, black coffee, and plain tea. Eating and drinking restrictions Follow instructions from your health care provider about eating and drinking, which may include: 8 hours before the procedure stop eating heavy meals or foods, such as meat, fried foods, or fatty foods. 6 hours before the procedure stop eating light meals or foods, such as toast or cereal. 6 hours before the procedure stop drinking milk or drinks that contain milk. 2 hours before the procedure stop drinking clear liquids. Medicines Ask your health care provider about: Changing or stopping your regular medicines. This is especially important if you are taking diabetes medicines or blood thinners. Taking medicines such as aspirin and ibuprofen. These medicines can thin your blood. Do not take these medicines unless your health care provider tells you to take them. Taking ovhh-gfi-ssgmkvu medicines, vitamins, herbs, and supplements. Surgery safety Ask your health care provider: How your surgery site will be marked. What steps will be taken to help prevent infection. These steps may include: ?Removing hair at the surgery site. ?Washing skin with a germ-killing soap. ?Taking antibiotic medicine. General instructions Do not use any products that contain nicotine or tobacco for at least 4 weeks before the procedure. These products include cigarettes, chewing tobacco, and vaping devices, such as e-cigarettes. If you need help quitting, ask your health care provider. Plan to have a responsible adult take you home from the hospital or clinic. What happens during the procedure? An IV will be inserted into one of your veins. You will be given one or both of the following: ?A medicine to make you fall asleep (general anesthetic). ?A medicine that is injected into your spine to numb the area below the injection site (spinal anesthetic). A catheter will be placed in your bladder to drain urine during the procedure. An incision will be made in your vagina and on the lower part of your abdomen. The sling material will be passed around your bladder neck and stitched (sutured) to the muscles to hold the urethra in its normal position. The incisions will then be closed with sutures. The procedure may vary among health care providers and hospitals. What happens after the procedure? Your blood pressure, heart rate, breathing rate, and blood oxygen level will be monitored until you leave the hospital or clinic. You will have a catheter in place to drain your bladder. This will stay in place until your bladder is working properly on its own. You may have a gauze packing in the vagina to prevent bleeding. This will be removed in 1 2 days. Summary A urethral vaginal sling procedure is surgery to treat urinary incontinence. In this surgery, a strong piece of material is placed under the urethra to hold it in its normal position. Follow instructions from your health care provider about eating and drinking before the procedure. After surgery, you will have a urinary catheter in place until your bladder works properly on its own again. This information is not intended to replace advice given to you by your health care provider. Make sure you discuss any questions you have with your health care provider. Document Revised: 03/02/2021 Document Reviewed: 03/02/2021 [employer] Patient Education 2023 [employer]. Follow Up Care 06/24/2024 14:41:56 With:HAMILTON MALONE MD, URL Address: When: Unknown [facility] 07-05-2024 Note Patient Education Obstetrics and Gynecology Urethral Vaginal Sling A urethral vaginal sling procedure is surgery to correct urinary incontinence. Urinary incontinence is passing urine without one's control. It is common in older women and in women who have had children. In this surgery, a strong piece of material is placed under the tube that drains the bladder (urethra). This sling is made of tension-free vaginal tape or nylon mesh. It fits under the urethra like a hammock. The sling is put in position to straighten, support, and hold the urethra in its normal position. Tell a health care provider about: ??? Any allergies you have. ??? All medicines you are taking, including vitamins, herbs, eye drops, creams, and itse-fpa-ufzdjny medicines. ??? Any problems you or family members have had with anesthetic medicines. ??? Any blood disorders you have. ??? Any surgeries you have had. ??? Any medical conditions you have. ??? Whether you are or may be . What are the risks? Generally, this is a safe procedure. However, problems may occur, including: ??? Infection. ??? Excessive bleeding. ??? Allergic reactions to medicines. ??? Damage to nearby structures or organs. ??? Problems urinating for several days or weeks. ??? Return of the urinary incontinence. ??? Mesh failure. Be sure to talk with your health care provider about the options you have for sling material and the risks associated with each material. What happens before the procedure? Staying hydrated Follow instructions from your health care provider about hydration, which may include: ??? Up to 2 hours before the procedure ? you may continue to drink clear liquids, such as water, clear fruit juice, black coffee, and plain tea. Eating and drinking restrictions Follow instructions from your health care provider about eating and drinking, which may include: ??? 8 hours before the procedure ? stop eating heavy meals or foods, such as meat, fried foods, or fatty foods. ??? 6 hours before the procedure ? stop eating light meals or foods, such as toast or cereal. ??? 6 hours before the procedure ? stop drinking milk or drinks that contain milk. ??? 2 hours before the procedure ? stop drinking clear liquids. Medicines Ask your health care provider about: ??? Changing or stopping your regular medicines. This is especially important if you are taking diabetes medicines or blood thinners. ??? Taking medicines such as aspirin and ibuprofen. These medicines can thin your blood. Do not take these medicines unless your health care provider tells you to take them. ??? Taking slqv-wtl-yfetavu medicines, vitamins, herbs, and supplements. Surgery safety Ask your health care provider: ??? How your surgery site will be marked. ??? What steps will be taken to help prevent infection. These steps may include: ? Removing hair at the surgery site. ? Washing skin with a germ-killing soap. ? Taking antibiotic medicine. General instructions ??? Do not use any products that contain nicotine or tobacco for at least 4 weeks before the procedure. These products include cigarettes, chewing tobacco, and vaping devices, such as e-cigarettes. If you need help quitting, ask your health care provider. ??? Plan to have a responsible adult take you home from the hospital or clinic. What happens during the procedure? An IV will be inserted into one of your veins. ??? You will be given one or both of the following: ? A medicine to make you fall asleep (general anesthetic). ? A medicine that is injected into your spine to numb the area below the injection site (spinal anesthetic). ??? A catheter will be placed in your bladder to drain urine during the procedure. ??? An incision will be made in your vagina and on the lower part of your abdomen. ??? The sling material will be passed around your bladder neck and stitched (sutured) to the muscles to hold the urethra in its normal position. ??? The incisions will then be closed with sutures. The procedure may vary among health care providers and hospitals. What happens after the procedure? Your blood pressure, heart rate, breathing rate, and blood oxygen level will be monitored until you leave the hospital or clinic. ??? You will have a catheter in place to drain your bladder. This will stay in place until your bladder is working properly on its own. ??? You may have a gauze packing in the vagina to prevent bleeding. This will be removed in 1?2 days. Summary ??? A urethral vaginal sling procedure is surgery to treat urinary incontinence. ??? In this surgery, a strong piece of material is placed under the urethra to hold it in its normal position. ??? Follow instructions from your health care provider about eating and drinking before the procedure. ??? After surgery, you will have a urinary catheter in place until your bladder w (more content not included)... [facility] 06-24-2024 Note Progress Note-Physic beni Patient: RAIN SWEENEY Age: 63 years Sex: Female : 1960 Associated Diagnoses: None Author: Valdo Aguilar MD Postoperative Information Postoperative disposition: Postoperative disposition: To PACU. Optimetrix number: Optimetrix number [id number]. Anesthetic utilized: General. Health Status Allergies: Allergic Reactions (Selected) Severity Not Documented Penicillin- Hives. Physical Examination Vital Signs 06/24/2024 9:21 EST Heart Rate Monitored 95 bpm SpO2 95 % 06/24/2024 9:20 EST Systolic Blood Pressure 134 mmHg Diastolic Blood Pressure 88 mmHg Blood Pressure Location Left arm Mean Arterial Pressure, Monitered 103 mmHg 06/24/2024 9:20 EST Respiratory Rate 18 br/min 06/24/2024 9:13 EST Temperature Temporal Artery 36.7 DegC Heart Rate Monitored 107 bpm HI Respiratory Rate Monitored 16 br/min Systolic Blood Pressure 128 mmHg Diastolic Blood Pressure 74 mmHg Mean Arterial Pressure, Cuff 92 mmHg SpO2 95 % Pain Assessment: Controlled. General: Awake, Appropriate. Respiratory: Adequate air exchange. Cardiovascular: Stable. Neurological Assessment Anesthetic outcome No anesthetic complications noted. Adequate pain relief. Review / Management Condition: Stable. Plan Transfer/Discharge: Transfer/Discharge Discharge when meets criteria ( To home ). [facility] Comment on above: Result Comment: Elec delilahally Signed By: Valdo Aguilar MD\.br\Date and Time Signed: 06/24/24 16:53 EST 06-24-2024 Evaluation + Plan note Extrac sheeba from: Title:ANES Post-operative Note---General Author: Valdo Aguilar MD Date:06/24/24 Plan Transfer/Discharge: Transfer/Discharge Discharge when meets criteria ( To home ). Extracted from: Title:ANES Pre-operative Note 2022 Author:Valdo Asencio Date:06/24/24 Plan [place] [employer] (ASA) physical status classification: Class III. Anesthetic Preoperative Plan: Anesthesia General, and TIVA. Future Appointments Appointment Date:07/05/2024 10:00:00 AM Scheduled Provider:HAMILTON MALONE MD Location:[facility] Appointment Type:URO Office Visit [facility] 11-14-2024 Hospital Discharge instructions Patient Education 06/24/2024 08:51:49 EU - Cystoscopy Discharge Instructions(CUSTOM) Cystoscopy Voiding after the procedure: there may be some pain, burning, urgency, frequency and blood tinged urine following the procedure. These symptoms usually resolve within 2-5 days. Drink the amount of fluid it takes to keep the urine pink to yellow or clear in color. Drinking enough water and fluids will help to ease any discomfort after your procedure. If you are having problems that seem out of the ordinary, please call. If unable to contact your physician and you feel it is an emergency, go to the nearest emergency room or call 911 Diet you may resume your normal diet. Activity you may resume your normal activities Call if you have a fever over 100 degrees. 06/24/2024 08:50:12 Post Op Patient Instructions - FT (CUSTOM) Follow Up Care 06/11/2024 10:28:58 With:HAMILTON MALONE Address: [address] [facility] [place] [phone] Business (1) When: Unknown Comments:in 2 weeks [facility] [id number] NotePatient Education - Text Cystoscopy ??? Voiding after the procedure: there may be some pain, burning, urgency, frequency and blood tinged urine following the procedure. These symptoms usually resolve within 2-5 days. Drink the amount of fluid it takes to keep the urine pink to yellow or clear in color. Drinking enough water and fluids will help to ease any discomfort after your procedure. ??? If you are having problems that seem out of the ordinary, please call. ??? If unable to contact your physician and you feel it is an emergency, go to the nearest emergency room or call 911 ??? Diet ??? you may resume your normal diet. ??? Activity ??? you may resume your normal activities ??? Call if you have a fever over 100 degrees. [facility] Note Progress Note-Physician Patient: RAIN SWEENEY Age: 63 years Sex: Female : 1960 Associated Diagnoses: None Author: Jeff RAMIREZ, Valdo Haq Preoperative Information Anesthesia Preop Info: Time patient last ate or drank 06/24/2024 00:00:00. Anesthesia history: Patient history: N/V with anesthesia. Family history+: None. Informed consent: Signed by patient. Re-evaluation prior to induction: Initial evaluation reviewed: No significant change. Review of Systems Eye Ear/Nose/Mouth/Throat Respiratory: No shortness of breath, No cough. Cardiovascular: active without cardiac symptoms, No chest pain, No palpitations. Gastrointestinal: No heartburn. Musculoskeletal Neurologic Health Status Allergies: Allergic Reactions (Selected) Severity Not Documented Penicillin- Hives., Allergies (1) Active Severity Reaction penicillin Hives Current medications: (Selected) Inpatient Medications Ordered HYDROmorphone 1 mg/mL injectable solution: 0.4 mg = 0.4 mL, Injection, IV Push, q4min PRN Pain for 5 dose(s), Stop date Limited # of times, Routine, Start date 06/24/24 8:29:00 EST, 06/24/24 8:29:00 EST Lactated Ringers IV Suzy 1000 mL 1,000 mL: 1,000 mL, IV, 100 mL/hr, Routine, Start date 06/24/24 8:29:00 EST, 10 hour(s), Total volume (mL): 1,000, 81.8 kg, 1.99, m2 Sodium Chloride 0.9% IV Suzy 1000 mL 1,000 mL: 1,000 mL, IV, 150 mL/hr, Routine, Start date 247:00:00 EST, 6.7 hour(s), Total volume (mL): 1,000, 81.8 kg, 1.99, m2 cefazolin additive + Sodium Chloride 0.9% intravenous solution 50 mL: 2 gram = 1 EA, Powder-Inj, IVPiggyback, Once, Stop date 06/24/24 7:00:00 EST, Routine, Start date 06/24/24 7:00:00 EST, 100 mL/hr, Infuse over 30 minute(s), HOLD if patient has history of anaphylactic allergic reaction to Penicillin promethazine additive 12.5 mg + Sodium Chloride 0.9% IV Suzy 50 mL (INT) 50 mL: IV Piggyback, Once PRN Nausea/Vomiting, Routine, Start date 06/24/24 8:29:00 EST, 151.5 mL/hr, Infuse over 20 minute(s),06/24/24 8:29:00 EST Prescriptions Prescribed Pyridium 100 mg Tab: 100 mg = 1 tab(s), Oral, TID, X 3 day(s), # 9 tab(s), Refills(s) 0, Pharmacy: [facility]/pharmacy #[id number], 174, cm, 06/18/24 15:46:00 EST, Height/Length Dosing, 81.8, kg, 06/18/24 15:46:00 EST, Weight Dosing Documented Medications Documented lithium 300 mg oral tablet: 900 mg = 3 tab(s), Oral, Bedtime, Refills(s) 0 omeprazole 20 mg Cap-DR: 20 mg = 1 cap(s), Oral, Daily, Refills(s) 0 oxcarbazepine 300 mg Tab: 300 mg = 1 tab(s), Oral, Daily, Refills(s) 0 tretinoin Top 0.1% Crm: 1 susan, Topical, Once a day (at bedtime), Refill(s) 0 venlafaxine: as directed, Refills(s) 0, Home Medications (6) Active lithium 300 mg oral tablet 900 mg = 3 tab(s), Oral, Bedtime omeprazole 20 mg Cap-DR 20 mg = 1 cap(s), Oral, Daily oxcarbazepine 300 mg Tab 300 mg = 1 tab(s), Oral, Daily Pyridium 100 mg Tab 100 mg = 1 tab(s), Oral, TID tretinoin Top 0.1% Crm 1 susan, Topical, Once a day (at bedtime) venlafaxine , Medications (5) Active Scheduled: (1) ceFAZolin + Sodium Chloride 0.9% Minibag 50 mL 2 gram 1 EA, IV Piggyback, Once Continuous: (2) Lactated Ringers 1,000 mL 1,000 mL, IV, 100 mL/hr Sodium Chloride 0.9% 1,000 mL 1,000 mL, IV, 150 mL/hr PRN: (2) HYDROmorphone 1 mg/mL SOLN [F] 0.4 mg 0.4 mL, IV Push, q4min promethazine 12.5 mg + Sodium Chloride 0.9% 50 mL 12.5 mg 0.5 mL, IV Piggyback, Once Problem list: All Problems Acne / SNOMED CT 27976391 / Confirmed Anxiety / SNOMED CT 48959264 / Confirmed Atrophic vaginitis / SNOMED CT 82114989 / Confirmed Bladder neoplasm of uncertain malignant potential / SNOMED CT 5911041957 / Confirmed BMI 28.0-28.9,adult / SNOMED CT 1600327364 / Confirmed Chronic depression / SNOMED CT 799832139 / Confirmed Chronic pain / SNOMED CT 864192784 / Confirmed Cystocele with rectocele / SNOMED CT 480806101 / Confirmed Essential hypertension / SNOMED CT 07991283 / Confirmed Gastroesophageal reflux disease / SNOMED CT 167192179 / Confirmed Heart disease / SNOMED CT 71963611 / Confirmed Hypercholesterolemia / SNOMED CT 58473884 / Confirmed Lesion of right nipple / SNOMED CT 5349187738 / Confirmed Lumbar radiculopathy / SNOMED CT 900273092 / Confirmed Migraine / SNOMED CT 35891669 / Confirmed Myocardial infarction / SNOMED CT 49068905 / Confirmed Outside Source Comment: Comment on above: 2003 Overweight / SNOMED CT 725660174 / Confirmed Scoliosis of lumbosacral spine / SNOMED CT 903829982 / Confirmed Sleep apnea / SNOMED CT 916197189 / Confirmed Stress incontinence / SNOMED CT 936735302 / Confirmed Urethral caruncle / SNOMED CT 19324824 / Confirmed Resolved: Bipolar disorder / SNOMED CT 24527792 Canceled: Tobacco user / SNOMED CT 934401517, Active Problems (21) Acne Anxiety Atrophic vaginitis Bladder neoplasm of uncertain malignant potential BMI 28.0-28.9,adult Chronic depression Chronic pain Cystocele with rectocele Esse (more content not included)...[facility] Comment: Electronically Signed By: Jeff RAMIREZ, Valdo Haq\.br\Date and Time Signed: 06/24/24 08:32 [id number] Hospital Discharge instructions Patient Education 06/11/2024 10:04:23 Injection Treatments for Urinary Incontinence Injection Treatments for Urinary Incontinence Urinary incontinence is a condition in which a person cannot control when he or she passes urine. The cause of this condition is usually a weak urinary sphincter. The urinary sphincter is the muscle that normally keeps urine from leaking. To treat this condition, a material called a bulking agent can be injected either into the urethra or into the bladder neck. The urethra is the part of the body that drains urine from the bladder. The bladder neck is the area where the bladder and urethra connect. The bulking agent is also called an implant. The implant narrows and strengthens the urethra to help control the passing of urine. Urinary incontinence is a common problem for women who have had pregnancies or certain surgeries, such as a hysterectomy, and for men who have had prostate surgery. Tell a health care provider about: Any allergies you have. All medicines you are taking, including vitamins, herbs, eye drops, creams, and peds-hdv-cqgqcto medicines. Any problems you or family members have had with anesthetic medicines. Any blood disorders you have. Any surgeries you have had. Any medical conditions you have. Whether you are or may be . What are the risks? Generally, this is a safe procedure. However, problems may occur, including: Infection. Bleeding. Allergic reaction to medicines or to the bulking agent. Damage to the urethra or bladder. Difficulty passing urine. A strong and uncomfortable urge to pass urine (urgency). Pain when passing urine or having sex. Failure of the procedure to treat incontinence. A need to repeat the procedure at a later time. What happens before the procedure? Staying hydrated Follow instructions from your health care provider about hydration, which may include: Up to 2 hours before the procedure you may continue to drink clear liquids, such as water, clear fruit juice, black coffee, and plain tea. Eating and drinking restrictions Follow instructions from your health care provider about eating and drinking, which may include: 8 hours before the procedure stop eating heavy meals or foods, such as meat, fried foods, or fatty foods. 6 hours before the procedure stop eating light meals or foods, such as toast or cereal. 6 hours before the procedure stop drinking milk or drinks that contain milk. 2 hours before the procedure stop drinking clear liquids. Medicines Ask your health care provider about: Changing or stopping your regular medicines. This is especially important if you are taking diabetes medicines or blood thinners. Taking medicines such as aspirin and ibuprofen. These medicines can thin your blood. Do not take these medicines unless your health care provider tells you to take them. Taking qpzl-zqm-eetjqva medicines, vitamins, herbs, and supplements. General instructions Ask your health care provider what steps will be taken to help prevent infection. These steps may include: ?Removing hair at the surgery site. ?Washing skin with a germ-killing soap. ?Taking antibiotic medicine. You may need to have a series of tests done to learn more about your bladder control (urodynamic testing). Plan to have a responsible adult take you home from the hospital or clinic. Plan to have a responsible adult care for you for the time you are told after you leave the hospital or clinic. This is important. What happens during the procedure? An IV may be inserted into one of your veins. You may be given one or more of the following: ?A medicine to help you relax (sedative). ?A medicine to numb your urethra and bladder area (local anesthetic). ?A medicine to make you fall asleep (general anesthetic). A small, thin tube (catheter) may be inserted through your urethra into your bladder. A long, thin tube with a light and camera (cystoscope) will be placed into your urethra and moved up toward your bladder. The camera sends images to a screen in the room. These images will be used tohelp guide the procedure. A long needle will be threaded through the cystoscope. Bulking material will be injected into the tissues around your urethra, near your urinary sphincter. The cystoscope and needle will be removed. The procedure may vary among health care providers and hospitals. What happens after the procedure? Your blood pressure, heart rate, breathing rate, and blood oxygen level will be monitored until youleave the hospital or clinic. If you have a catheter in your urethra, it will be removed to see if you can pass urine. If you have trouble passing urine, a new catheter may be inserted and left in place for a few days. Your bladder may be filled with fluid through your catheter to check for any problems in the bladder. You may be given antibiotic medicine to take at home. If you were given a sedative during the procedure, it can affect you for several hours. Do not drive or operate machinery until your health care provider says that it is safe. Summary Urinary incontinence is when you cannot control when you pass urine. The muscle that normally keepsurine from leaking may be weak. Urinary incontinence is a common problem for women who have had pregnancies or certain surgeries, such as a hysterectomy, and for men who have had prostate surgery. To treat this condition, a bulking agent can be injected either into the urethra or into the bladder neck. This information is not intended to replace advice given to you by your health care provider. Make sure you discuss any questions you have with your health care provider. Document Revised: 03/02/2021 Document Reviewed: 03/02/2021 [employer] Patient Education 2023 [email or web address]. 06/11/2024 09:47:28 Kegel Exercises Kegel Exercises Kegel exercises can help strengthen your pelvic floor muscles. The pelvic floor is a group of muscles that support your rectum, small intestine, and bladder. In females, pelvic floor muscles also help support the uterus. These muscles help you control the flow of urine and stool (feces). Kegel exercises are painless and simple. They do not require any equipment. Your provider may suggest Kegel exercises to: Improve bladder and bowel control. Improve sexual response. Improve weak pelvic floor muscles after surgery to remove the uterus (hysterectomy) or after , in females. Improve weak pelvic floor muscles after prostate gland removal or surgery, in males. Kegel exercises involve squeezing your pelvic floor muscles. These are the same muscles you squeezewhen you try to stop the flow of urine or keep from passing gas. The exercises can be done while sitting, standing, or lying down, but it is best to vary your position. Ask your health care provider which exercises are safe for you. Do exercises exactly as told by your health care provider and adjust them as directed. Do not begin these exercises until told by your health care provider. Exercises How to do Kegel exercises: 1.Squeeze your pelvic floor muscles tight. You should feel a tight lift in your rectal area. If youare a female, you should also feel a tightness in your vaginal area. Keep your stomach, buttocks, and legs relaxed. 2.Hold the muscles tight for up to 10 seconds. 3.Breathe normally. 4.Relax your muscles for up to 10 seconds. 5.Repeat as told by your health care provider. Repeat this exercise daily as told by your health care provider. Continue to do this exercise for at least 4 6 weeks, or for as long as told by your health care provider. You may be referred to a physical therapist who can help you learn more about how to do Kegel exercises. Depending on your condition, your health care provider may recommend: Varying how long you squeeze your muscles. Doing several sets of exercises every day. Doing exercises for several weeks. Making Kegel exercises a part of your regular exercise routine. This information is not intended to replace advice given to you by your health care provider. Make sure you discuss any questions you have with your health care provider. Document Revised: 12/06/2021 Document Reviewed: 12/06/2021 [employer] Patient Education 2023 [email or web address]. Follow Up Care 05/31/2024 11:14:44 With:GABBY RAMIREZ, HAMILTON, JATINDERL Address: When: Unknown [facility] 11-01-2024 NotePatient Education Obstetrics and Gynecology Kegel Exercises Kegel exercises can help strengthen your pelvic floor muscles. The pelvic floor is a group of muscles that support your rectum, small intestine, and bladder. In females, pelvic floor muscles also help support the uterus. These muscles help you control the flow of urine and stool (feces). Kegel exercises are painless and simple. They do not require any equipment. Your provider may suggest Kegel exercises to: ??? Improve bladder and bowel control. ??? Improve sexual response. ??? Improve weak pelvic floor muscles after surgery to remove the uterus (hysterectomy) or after , in females. ??? Improve weak pelvic floor muscles after prostate gland removal or surgery, in males. Kegel exercises involve squeezing your pelvic floor muscles. These are the same muscles you squeezewhen you try to stop the flow of urine or keep from passing gas. The exercises can be done while sitting, standing, or lying down, but it is best to vary your position. Ask your health care provider which exercises are safe for you. Do exercises exactly as told by your health care provider and adjust them as directed. Do not begin these exercises until told by your health care provider. Exercises How to do Kegel exercises: 1. Squeeze your pelvic floor muscles tight. You should feel a tight lift in your rectal area. If you are a female, you should also feel a tightness in your vaginal area. Keep your stomach, buttocks, and legs relaxed. 2. Hold the muscles tight for up to 10 seconds. 3. Breathe normally. 4. Relax your muscles for up to 10 seconds. 5. Repeat as told by your health care provider. Repeat this exercise daily as told by your health care provider. Continue to do this exercise for at least 4?6 weeks, or for as long as told by your health care provider. You may be referred to a physical therapist who can help you learn more about how to do Kegel exercises. Depending on your condition, your health care provider may recommend: ??? Varying how long you squeeze your muscles. ??? Doing several sets of exercises every day. ??? Doing exercises for several weeks. ??? Making Kegel exercises a part of your regular exercise routine. This information is not intended to replace advice given to you by your health care provider. Make sure you discuss any questions you have with your health care provider. Document Revised: 12/06/2021 Document Reviewed: 12/06/2021 [email or web address] Patient Education ? 2023 [employer] Urology Injection Treatments for Urinary Incontinence Urinary incontinence is a condition in which a person cannot control when he or she passes urine. The cause of this condition is usually a weak urinary sphincter. The urinary sphincter is the muscle that normally keeps urine from leaking. To treat this condition, a material called a bulking agent can be injected either into the urethra or into the bladder neck. The urethra is the part of the body that drains urine from the bladder. The bladder neck is the area where the bladder and urethra connect. The bulking agent is also called an implant. The implant narrows and strengthens the urethra to help control the passing of urine. Urinary incontinence is a common problem for women who have had pregnancies or certain surgeries, such as a hysterectomy, and for men who have had prostate surgery. Tell a health care provider about: ??? Any allergies you have. ??? All medicines you are taking, including vitamins, herbs, eye drops, creams, and gzlu-owl-nvbxeib medicines. ??? Any problems you or family members have had with anesthetic medicines. ??? Any blood disorders you have. ??? Any surgeries you have had. ??? Any medical conditions you have. ??? Whether you are or may be . What are the risks? Generally, this is a safe procedure. However, problems may occur, including: ??? Infection. ??? Bleeding. ??? Allergic reaction to medicines or to the bulking agent. ??? Damage to the urethra or bladder. ??? Difficulty passing urine. ??? A strong and uncomfortable urge to pass urine (urgency). ??? Pain when passing urine or having sex. ??? Failure of the procedure to treat incontinence. ??? A need to repeat the procedure at a later time. What happens before the procedure? Staying hydrated Follow instructions from your health care provider about hydration, which may include: ??? Up to 2 hours before the procedure ? you may continue to drink clear liquids, such as water, clear fruit juice, black coffee, and plain tea. Eating and drinking restrictions Follow instructions from your health care provider about eating and drinking, which may include: ??? 8 hours before the procedure ? stop eating heavy meals or foods, such as meat, fried foods, or fatty foods. ??? 6 hours before the procedure ? stop eating light meals or foods, such as toast or (more contentnot included)...[facility] Note Patient Education Obstetrics and Gynecology Kegel Exercises Kegel exercises can help strengthen your pelvic floor muscles. The pelvic floor is a group of muscles that support your rectum, small intestine, and bladder. In females, pelvic floor muscles also help support the uterus. These muscles help you control the flow of urine and stool (feces). Kegel exercises are painless and simple. They do not require any equipment. Your provider may suggest Kegel exercises to: ? Improve bladder and bowel control. ? Improve sexual response. ? Improve weak pelvic floor muscles after surgery to remove the uterus (hysterectomy) or after , in females. ? Improve weak pelvic floor muscles after prostate gland removal or surgery, in males. Kegel exercises involve squeezing your pelvic floor muscles. These are the same muscles you squeezewhen you try to stop the flow of urine or keep from passing gas. The exercises can be done while sitting, standing, or lying down, but it is best to vary your position. Ask your health care provider which exercises are safe for you. Do exercises exactly as told by your health care provider and adjust them as directed. Do not begin these exercises until told by your health care provider. Exercises How to do Kegel exercises: 1. Squeeze your pelvic floor muscles tight. You should feel a tight lift in your rectal area. If you are a female, you should also feel a tightness in your vaginal area. Keep your stomach, buttocks, and legs relaxed. 2. Hold the muscles tight for up to 10 seconds. 3. Breathe normally. 4. Relax your muscles for up to 10 seconds. 5. Repeat as told by your health care provider. Repeat this exercise daily as told by your health care provider. Continue to do this exercise for at least 4?6 weeks, or for as long as told by your health care provider. You may be referred to a physical therapist who can help you learn more about how to do Kegel exercises. Depending on your condition, your health care provider may recommend: ? Varying how long you squeeze your muscles. ? Doing several sets of exercises every day. ? Doing exercises for several weeks. ? Making Kegel exercises a part of your regular exercise routine. This information is not intended to replace advice given to you by your health care provider. Make sure you discuss any questions you have with your health care provider. Document Revised: 12/06/2021 Document Reviewed: 12/06/2021 [email or web address] Patient Education ? 2023 [employer] Urethral Vaginal Sling A urethral vaginal sling procedure is surgery to correct urinary incontinence. Urinary incontinenceis passing urine without one's control. It is common in older women and in women who have had children. In this surgery, a strong piece of material is placed under the tube that drains the bladder (urethra). This sling is made of tension-free vaginal tape or nylon mesh. It fits under the urethra like a hammock. The sling is put in position to straighten, support, and hold the urethra in its normal position. Tell a health care provider about: ? Any allergies you have. ? All medicines you are taking, including vitamins, herbs, eye drops, creams, and oqos-kek-awoixtx medicines. ? Any problems you or family members have had with anesthetic medicines. ? Any blood disorders you have. ? Any surgeries you have had. ? Any medical conditions you have. ? Whether you are or may be . What are the risks? Generally, this is a safe procedure. However, problems may occur, including: ? Infection. ? Excessive bleeding. ? Allergic reactions to medicines. ? Damage to nearby structures or organs. ? Problems urinating for several days or weeks. ? Return of the urinary incontinence. ? Mesh failure. Be sure to talk with your health care provider about the options you have for slingmaterial and the risks associated with each material. What happens before the procedure? Staying hydrated Follow instructions from your health care provider about hydration, which may include: ? Up to 2 hours before the procedure ? you may continue to drink clear liquids, such as water, clear fruit juice, black coffee, and plain tea. Eating and drinking restrictions Follow instructions from your health care provider about eating and drinking, which may include: ? 8 hours before the procedure ? stop eating heavy meals or foods, such as meat, fried foods, or fatty foods. ? 6 hours before the procedure ? stop eating light meals or foods, such as toast or cereal. ? 6 hours before the procedure ? stop drinking milk or drinks that contain milk. ? 2 hours before the procedure ? stop drinking clear liquids. Medicines Ask your health care provider about: ? Changing or stopping your regular medicines. This is especially important if you are taking diabetes medicines or blood thinners. (more content not included)...[facility] Hospital Discharge instructions Patient Education 05/25/2024 10:57:53 Urethral Vaginal Sling Urethral Vaginal Sling A urethral vaginal sling procedure is surgery to correct urinary incontinence. Urinary incontinenceis passing urine without one's control. It is common in older women and in women who have had children. In this surgery, a strong piece of material is placed under the tube that drains the bladder (urethra). This sling is made of tension-free vaginal tape or nylon mesh. It fits under the urethra like a hammock. The sling is put in position to straighten, support, and hold the urethra in its normal position. Tell a health care provider about: Any allergies you have. All medicines you are taking, including vitamins, herbs, eye drops, creams, and qhkj-bou-bwnrasz medicines. Any problems you or family members have had with anesthetic medicines. Any blood disorders you have. Any surgeries you have had. Any medical conditions you have. Whether you are or may be . What are the risks? Generally, this is a safe procedure. However, problems may occur, including: Infection. Excessive bleeding. Allergic reactions to medicines. Damage to nearby structures or organs. Problems urinating for several days or weeks. Return of the urinary incontinence. Mesh failure. Be sure to talk with your health care provider about the options you have for sling material and the risks associated with each material. What happens before the procedure? Staying hydrated Follow instructions from your health care provider about hydration, which may include: Up to 2 hours before the procedure you may continue to drink clear liquids, such as water, clear fruit juice, black coffee, and plain tea. Eating and drinking restrictions Follow instructions from your health care provider about eating and drinking, which may include: 8 hours before the procedure stop eating heavy meals or foods, such as meat, fried foods, or fatty foods. 6 hours before the procedure stop eating light meals or foods, such as toast or cereal. 6 hours before the procedure stop drinking milk or drinks that contain milk. 2 hours before the procedure stop drinking clear liquids. Medicines Ask your health care provider about: Changing or stopping your regular medicines. This is especially important if you are taking diabetes medicines or blood thinners. Taking medicines such as aspirin and ibuprofen. These medicines can thin your blood. Do not take these medicines unless your health care provider tells you to take them. Taking dexe-dzu-wxejypo medicines, vitamins, herbs, and supplements. Surgery safety Ask your health care provider: How your surgery site will be marked. What steps will be taken to help prevent infection. These steps may include: ?Removing hair at the surgery site. ?Washing skin with a germ-killing soap. ?Taking antibiotic medicine. General instructions Do not use any products that contain nicotine or tobacco for at least 4 weeks before the procedure.These products include cigarettes, chewing tobacco, and vaping devices, such as e-cigarettes. If you need help quitting, ask your health care provider. Plan to have a responsible adult take you home from the hospital or clinic. What happens during the procedure? An IV will be inserted into one of your veins. You will be given one or both of the following: ?A medicine to make you fall asleep (general anesthetic). ?A medicine that is injected into your spine to numb the area below the injection site (spinal anesthetic). A catheter will be placed in your bladder to drain urine during the procedure. An incision will be made in your vagina and on the lower part of your abdomen. The sling material will be passed around your bladder neck and stitched (sutured) to the muscles tohold the urethra in its normal position. The incisions will then be closed with sutures. The procedure may vary among health care providers and hospitals. What happens after the procedure? Your blood pressure, heart rate, breathing rate, and blood oxygen level will be monitored until youleave the hospital or clinic. You will have a catheter in place to drain your bladder. This will stay in place until your bladderis working properly on its own. You may have a gauze packing in the vagina to prevent bleeding. This will be removed in 1 2 days. Summary A urethral vaginal sling procedure is surgery to treat urinary incontinence. In this surgery, a strong piece of material is placed under the urethra to hold it in its normal position. Follow instructions from your health care provider about eating and drinking before the procedure. After surgery, you will have a urinary catheter in place until your bladder works properly on its own again. This information is not intended to replace advice given to you by your health care provider. Make sure you discuss any questions you have with your health care provider. Document Revised: 03/02/2021 Document Reviewed: 03/02/2021 [employer] Patient Education 2023 [employer]. [facility] 10-09-2024 Evaluation note* Diagnosis Onset Date Resolution Status Admit Date UTI (urinary tract infection) acute May 19 10:09am Dysuria noneactive May 19 024 10:09am UTI (urinary tract infection) acute June 04 11:12am [facility] Work Phone: [phone]) 121-618004-10-2024 NoteChief Complaint consultation for abnormal breast US HPI [...] swallowing difficulties, no hearing loss, no ear infection(s),no nose bleeds. Cardiovascular: normal blood pressure, no [...] 12/09/2020 Recorded SARS-CoV-2 (COVID-19) mRNA-1273 vaccine 11/11/2020 [facility]ed[facility] SystemComment on above:Result Comment: Electronically Signed By: BERONICA RAMIREZ, Dieter Mcdaniels.marian\Date and Time Signed: 11/19/23 14:27 [id number] Evaluation note * Encounter Date Diagnosis Assessment Notes Treatment Notes Treatment Clinical Notes May, Adolescent idiopathic scoliosis of lumbosacral [...] may be able to offer some advice. [facility] Other 09-25-2023 Evaluation note* Encounter Date Diagnosis Assessment Notes Treatment Notes Treatment Clinical Notes Apr, Right lumbar radiculopathy (ICD-10 - M54.16) Presently in PT - discharged on 05/02. Requests MRI and referral. [facility] Other 08-22-2023 Evaluation note* Encounter Date Diagnosis Assessment Notes Treatment Notes Treatment Clinical Notes Mar, Right hip pain (ICD-10 - M25.551) PT paper given to pt. Handout for home stretches given as well. Tramadol to help her sleep. She understands it is a controlled substance and could be sedating. [facility] Other 05-15-2023 Evaluation note* Encounter Date Diagnosis [...] Above note written by Morris Flor MA, Beam Worker. Edited and approved by Dr. Goldy [...] negative findings were considered in medical decision-making. [facility] Other 04-28-2023 Evaluation note* Encounter Date Diagnosis Assessment Notes Treatment Notes Treatment Clinical Notes Nov, Lumbar pain (ICD-10 - M54.50) [facility] Other 07-20-2022 Evaluation note* Encounter Date Diagnosis Assessment Notes Treatment Notes Treatment Clinical Notes Feb, Bipolar 1 disorder, depressed (ICD-10 - F31.9) [facility] Other 05-05-2022 Evaluation note* Encounter Date Diagnosis Assessment Notes Treatment Notes Treatment Clinical Notes December, Bipolar 1 disorder, depressed (ICD-10 - F31.9) [facility] Other Evaluation + Plan note No data available for this section General Surgery [facility] Evaluation + Plan note Future Appointments Appointment Date:06/18/2024 03:30:00 PM Scheduled Provider: Location:[facility] Appointment Type:Surgical PAT FT Appointment Date:06/24/2024 09:00:00 AM Scheduled Provider: Location:[facility] Appointment Type:Surgery FT [facility] Evaluation + Plan note Future Appointments Appointment Date:06/24/2024 09:00:00 AM Scheduled Provider: Location:[facility] Appointment Type:Surgery FT [facility] Evaluation + Plan note Future Appointments Appointment Date:07/06/2024 10:00:00 AM Scheduled Provider: Location:[facility] Appointment Type:Surgical PAT FT Appointment Date:07/22/2024 08:00:00 AM Scheduled Provider: Location:[facility] Appointment Type:Surgery FT [facility] Evaluation + Plan note Future Appointments Appointment Date:07/22/2024 08:00:00 AM Scheduled Provider: Location:[facility] Appointment Type:Surgery FT [facility] evaluation noteNo InformationNort [facility] Other evaluation noteNo assessment information available [facility] Work Phone: evaluation note* Diagnosis Onset Date Resolution Status Acne acute Breast mass, right acute Wellness examination acute Abnormal ultrasound of breast acute [facility] Work Phone: Evaluation note* Diagnosis Onset Date Resolution Status Abnormal ultrasound of breast acute [facility] Work Phone: evalujzqvk note* Diagnosis Onset Date Resolution Status UTI (urinary tract infection) acute Dysuria noneactive [facility] Work Phone: evaluation note* Diagnosis Onset Date Resolution Status UTI (urinary tract infection) acute Dysuria noneactive UTI (urinary tract infection) acute [facility] Work Phone: Histruc general Narrative - Reported* Type Description Date Medical History bipolar disorder Medical History anxiety disorder Medical History high blood pressure Surgical History 2 boul ligation 2000 Surgical History stepidectomy 2009 Surgical History sinus surgery 2015 Hospitalization History See surgical hx Hospitalization History [facility] Other [facility]ucji general Narrative - Reported* Type Description Date Medical History bipolar disorder Medical History anxiety disorder Medical History high blood pressure Medical History Fatigue Medical History High risk medication use Surgical History 2 boul ligation 2000 Surgical History stepidectomy 2009 Surgical History sinus surgery 2015 Surgical History LUBAL LIGATION Hospitalization History See surgical hx Hospitalization History [facility] Other [facility]xc[facility] general Narrative - Reported* Type Description Date [...] Hospitalization History See surgical hx Hospitalization History [facility] Other Hospital Discharge instructionsAmbulatory Orders* Referral to General Surgery Time Frame: 11/12/23, Location: None Selected [facility] Work Phone: Hospital Discharge instructions No data available for this section General Surgery [place] Progress note No data available for this section General Surgery [place] Reason for Referral Reason piriformis pain Diagnosis 1 Adolescent idiopathi c scoliosis of lumbosacral spine (M41.127) Referral Organization [facility] urosurgery Referring Provider First Name Helio Referring Provider Last Name Asha Referring Provider Specialty Neurologica l Surgery Referred Organization [facility] Referred Provider Danny Solares Referred Address [address] [place] [facility],[address] Referred Provider Specialty Orthopaedic Surgery Referral Priority Routine Reason Requests Dr. Helio qureshi - MRI pending. Went to [place] [facility] and had xrays on 05/05. Diagnosis 1 Right lumbar radicul opathy (M54.16) Referral Organization [facility] [employer] C lauren Referring Provider First Name Seb Referring Provider Last Name Asha Referring Provider Specialty Family Medi cine Referred Organization [facility] Referred Address [address], [place],[address] Referred Provider Specialty Neurological Surgery Referral Priority Routine Reason No preference on off ice - Lumbar pain - recent OV and xray - thanks Diagnosis 1 Lumbar pain (M54.50) Referral Organization [facility] [employer] lauren Referring Provider First Name Seb Referring Provider Last Name Asha Referring Provider Specialty Family Medi cine Referred Organization Unknown Facility Referred Provider Specialty Pain Medicin e Referral Priority Routine Summary Purpose Family History Relationship Condition Age at Onset Recorded Date/T patricia daughter Bipolar disorder Unknown Malignant neoplasm Unknown father Bipolar disorder Unknown Unknown Not Specified Unknown Relationship Condition Age at Onset Recorded Date/T patricia daughter Bipolar disorder Unknown Malignant neoplasm Unknown father Bipolar disorder Unknown Unknown mother Unknown Advance Directives Advance Directive Response Recorded Date/ Time Advance Directives No May 29, 2023 12:42pm Advance Directive Response Recorded Date/ Time Advance Directives No May 29, 2023 11:42am Chief Complaint and Reason for Visit Chief [...] nfection) Dysuria Chief Complaint Possible UTI Dysuria UA, blood urine, fullness Reason for Visit UTI (urinary tract i nfection) Dysuria UTI (urinary tract infection) Chief Complaint Admit Date Possible UTI May 19, 2024 10 :09am Dysuria May 19, 2024 10 :20am UA, blood urine, fullness June 04, 2024 11:12am N39.0 June 04, 2024 1 1:30am BH June 14, 2024 1 1:53am Pre-Surgical Clearance June 21 9:50am Reason for Visit Admit Date UTI (urinary tract infection) May 10:09am Dysuria May 19, 2024 10 :09am UTI (urinary tract infection) June 042023 11:12am Additional Source Comments REASON FOR VISIT (unrecogniz ed section and content) cancelled apptupdateupdate/r efillRefillsreferrallumbar xrayREF BY DR SEB BARRY FOR LUMBAR PAINReferral?TBHReferralMRIreferred by Dr. Sarath Barry right lumbar radicNeurosurgery Office Notes INFORMATION SOURCE (unrecogn ized section and content) DATE CREATED AUTHOR 12/25/2022 [facility] DATE CREATED AUTHOR AUTHOR'S ORGANIZ ATION 04/23/2024 [facility] DATE CREATED AUTHOR AUTHOR'S ORGANIZ ATION 06/20/2024 Donis David [facility] DATE CREATED AUTHOR AUTHOR'S ORGANIZ ATION 07/04/2024 Donis David [facility] Center DATE CREATED AUTHOR AUTHOR'S ORGANIZ ATION 07/06/2024 Donis David [facility] Center DATE CREATED AUTHOR AUTHOR'S ORGANIZ ATION 07/13/2024 [facility] Care Teams (unrecognized sec tion [...] Provider Active Start: April 21, 2024 Faiza Almendarez PA-C Attending Provider Active Start : April 21, 2024 Team Status: Active Member Role Status Dates PHYSICIAN NO FAMILY Primary Care Provider Active Start: May 04, 2024 Pan Sanders MD Attending Provider Active Start: May 04, 2024 Team Status: Active Member Role Status Dates Seb Barry MD Primary Care Provider Active Start: May 04, 2024 Faiza Almendarez PA-C Attending Provider Active Start : May [...] 31, 2023 End: December 31, 2023 Dieter Loco MD [facility] Attending Provider Active Start: December 31, 2023 [...] May 19, 2024 End: May 19, 2024 NON STAFF Primary Care Provider Active Start: May 19, 2024 End: May 19, 2024 Team Status: Active Member Role Status Dates NON STAFF Primary Care Provider Active Start: May 26, 2024 Regulo Hinds MD Attending Provider Active St art: May 26, 2024 Team Status: Inactive Member Role Status Dates Seb Barry MD Primary Care Provide r, Attending Provider Active Start: June 04, 2024 End: June 04, 2024 Team Status: Inactive Member Role Status Dates Seb Barry MD Attending Provider Active St art: June 04, 2024 End: June 04, 2024 Team Status: Active Member Role Status Dates PHYSICIAN NO FAMILY Primary Care Provider Active Start: June 14, 2024 Pan Sanders MD Attending Provider Active Start: June 14, 2024 Team Status: Inactive Member Role Status Dates Seb Barry MD Primary Care Provide r, Attending Provider Active Start: June 21, 2024 End: June 21, 2024 Wet Sander Relationship Specialty Start Date End Date Seb Barry MD [address] [place] [id number] PCP - General Family Medicine 04/21/23 Goals (unrecognized section and content) Goals may [...] BE BASED ON THE PRIMARY CLINICAL RECORDS. [facility]. provides no warranty or guarantee of the accuracy or completeness of information in this document.
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
== END 2024-07-23 18:25 | disposition home or self-care (01) ==
PROVIDERS: Emergency Provider Emergency Medicine; PCP Family Medicine
DX: R33.9 Retention of urine, unspecified (principal); Z98.890 Other specified postprocedural states; Z98.51 Tubal ligation status
CPT/HCPCS: 99284

== ENCOUNTER 2024-07-24 18:08 | Emergency (ER) | payer OTHER, SELFPAY ==
[2024-07-24 18:09] VITALS: BP 156/91; PULSE 124; TEMP 37.2; O2SAT 97; BMI 28.2
[2024-07-24 18:14] VITALS: O2SAT 96
--- OUTSIDE RECORDS SUMMARY | 2024-07-24 18:15 | XMS_ITS | CCD ---
Author Organization [facility] Care Team Providers Care Cigar Packer [employer] Shader Name Role Phone Paresh Calixto Unavailable Seb [...] Provider MD Seb Barry Primary Care Provider [phone] Helio Barry Unavailable NO FAMILY, PHYSICIAN Primary Care Provider Unava MD Pan Gutierrez Attending Provider [phone] SEB BARRY Primary Care Physician NO FAMILY, PHYSICIAN Primary Care Provider Unava MD Pan Gutierrez Attending Provider [phone] MD Seb Barry Primary Care Provider [phone] MD Dieter Loco Attending Provider NO FAMILY, PHYSICIAN Primary Care Provider Unava MD Pan Gutierrez Attending Provider [phone] FAIZA ALMENDAREZ Attending Unavailable NO FAMILY, PHYSICIAN Primary Care Provider Unava ilable MD Pan Sanders Attending Provider KAUSHAL Hill Attending Provider [phone] NON STAFF Primary Care Provider UnavailDieter Olivarez [...] Care Provider UnavailSeb Martínez MD Attending Provider [phone] NO FAMILY, PHYSICIAN Primary Care Provider Unava ilable Pan Sanders MD Attending Provider NKANSAH-AMANKRA, HAMILTON Admitting Unavail able NKANSAH-AMANKRA, HAMILTON [...] Unavailable Seb Barry MD Primary Care Provider [phone] Allergies Allergy Classification Reported Allergen(s) Allergy Type Date of Onset Reaction(s) Facility (12 sources) Penicillins Drug allergy 4 [facility] (20 sources) metFORMIN; Translations: [metformin] Drug Allergy 4 Weal (disorder) [facility] (8 sources) Substance with penicillin structure and antibacterial mechanism of action (substance) Drug allergy [facility] Other (11 sources) Penicillin; Translations: [penicillin] Drug Allergy Weal (disorder) [facility] [place] (1 source) metFORMIN Drug Allergy 4 [facility] (1 source) Penicillins Drug allergy (disorder) 4 [facility] (2 sources) Penicillins Drug Allergy [...] cysto, # 2 tab(s), Refills(s) 0, Pharmacy: [facility]/pharmacy #[id number], 170, cm, 05/25/24 10:38:00 EDT, Height/Length Dosing, [...] by mouth three times daily at bedtime Anawalt Carbonate 300 mg tablet extended release Active MG PO Three times daily October 22, 2023 8:33am FreeTextSi tablets Orally at HS; Note: Source Status: [id number] mg as needed; Refills: 0; Provider: Asha Cadet ( ) take 3 tablets by mo [facility] at bedtime Anawalt Carbonate ER 300 MG 3 tablets Orally at HS for 90 days 900-1200 mg as needed Active take 4 tablets by mo ut every twenty-four hours Anawalt Carbonate ER 300 MG 4 tablets Orally Once a day for 90 days 900-1200 mg as needed Active LORazepam 0.5 mg oral tablet (7 sources) Benzodiazepine Start: 12-13-2021 take 1 tablet by mouth every twenty-four hours Ativan 0.5 MG 1 tablet at bedtime as needed Orally Once a day for 10 days f41.1 December, Active [facility] Ativan 0.5 MG [...] day(s), # 9 tab(s), Refills(s) 0, Pharmacy: [facility]/pharmacy #[id number], 174, cm, 06/18/24 15:46:00 EST, Height/Length [...] 3 times a day prn Active Iron Fum,Vq-Tfscl-Nxgqe,C No.9 (Iron Folate Plus) 125 mg iron- 1 mg capsule (7 sources) Start: 10-22-2023 End: 10-22-2023 take 1 capsule by mouth once daily at mealtime Iron Fum,Qn-Welki-Rkrrx,C No.9 (Iron Folate Plus) 125 mg iron- 1 mg capsule Discontinued 1 CAP PO Daily October 21, 2023 11:00pm October 22, 2023 8:33am administer between meals Start: 10-22-2023 End: 10-22-2023 take 1 capsule by mouth once daily at mealtime Iron Fum,Xr-Bsehb-Vhetm,C No.9 (Iron Folate Plus) 125 mg iron- [...] sources) H/O: high risk medication; Translations: [Other terminal system operator (current) drug therapy] Episodic Other aftercare (5 sources) Other terminal system operator (current) drug therapy; Translations: [OTH MANAGEMENT ASSISTANT CURRENT DRUG THERAPY] Onset: 2 Episodic Other aftercare (2 sources) Long-term current use of drug therapy; Translations: [Other terminal system operator (current) drug therapy] Episodic Other and ill-defined [...] including vitamins, herbs, eye drops, creams, and wbdv-nty-oyiehqf medicines. ??? Any problems you or family [...] foods, such (more content not included)... Normal [facility] Reminderson 07-05-2024 Reminders Reminders - From: Dorothy Castro To: SERENA - Shanta Maharaj; Sent: 07/05/2024 10:04:30 EST Show up: 08/04/2024 10:04:00 EST Subject: Cysto Due Date/Time: 08/04/2024 10:04:00 EST Reminder Message Cysto in 3 mos. Normal [facility] Urology Office/Clinic Noteon 07-05-2024 Urology Office/Clinic Note Urology Office/Clinic Note Chief Complaint follow up [facility] Staff 63 year old female here for [...] with voice recognition artificial intelligence software, specifically [employer] and or [employer]. Substitutions may have occurred due to the [...] bladder b (more content not included)... Normal [facility] Comment on above: Result Comment: Elec tronically Signed By: GABBY RAMIREZ, HAMILTON\.br\Date and Time Signed: 07/05/24 10:33 EST\.br\Electronically Co-Signed By: Dorothy Castro\ayden\Date and Time Co-Signed: 07/05/24 10:14 EST Surgical Pathology Reporton 07-01-2024 Surgical Pathology Report [facility] [address] [place] [address]- Surgical Pathology Report Collected Date/Time: 06/24/2024 08:47 [...] bladder tumor is a single fragment of ogod/pink tissue measuring 0.2 x 0.1 x 0.1 cm. Specimen is entirely submitted in one cassette. (DC) DC:[facility] Microscopic Description Microscopic examination performed unless gross only specified. The use of one or more reagents in the above tests is regulated as an analyte specific reagent (ASR). The test or tests are ordered following initial H&E microscopic examination. The performance characteristics were determined by the [facility] of [facility] Surgical Pathology. They have not been cleared [...] recognition technology and might contain unintended computerized charging board operator errors. Normal [facility] Comment on above: Performed By: #### 4 [id number] #### [facility] Laboratory [address] [place] [address] Main OR Intraoperative Recor don 06-25-2024 Main OR Intraoperative Record Main OR Intraoperative Record IntraOp Document Type FT Summary Primary Physician: HAMILTON MALONE MD Finalized Date/Time: 06/25/24 10:12:31 Pt. Name: RAIN SWEENEY LEYDA HaqO.B./Sex: 1960 Female Med Rec #: [id number] Physician: HAMILTON MALONE MD Financial #: [id number] Pt. Type: A Room/Bed: [place] [address] Admit/Disch: 06/24/24 06:38:13 - 06/24/24 10:15:00 Institution: [...] Cooney Role Performed Anesthesiologist Surgeon - Primary Transcripter - Primary Overhauler Time In 06/24/24 08:25:00 06/24/24 08:32:00 06/24/24 08:25:00 Time Out 06/24/24 08:46:00 06/24/24 08:39:00 06/24/24 08:46:00 Procedure CYSTOSCOPY TURB(.) CYSTOSCOPY TURB(.) CYSTOSCOPY TURB(.) Comments DR. AGUILAR SUPERVISING Last Modified By: Amina Vidales RN, RN, Leann E Flash RN, Amina Reyes 06/24/24 08:57:51 06/24/24 08:57:51 06/24/24 08:57:51 Entry 4 Entry 5 Entry 6 Case Attendee Flash SUNG, Gertrude Stallworth Terry T Role Performed Transcripter - Primary Scrub - Primary Staff - [...] and tissue Entry 1 Skin Integrity Intact, [place], Warm, & Skin Abnormality No Dry Outcomes Met? Yes Last Modified By: Amina Vidales RN 06/24/24 08:52:26 Post-Care Text: The patient is free from signs and symptoms of injury caused by extraneous objects Patient Positioning FT Pre-Care Text: Identifies physical alterations that require additional preca (more content not included)... Normal [facility] Discharge Instructionson Discharge Instructions Discharge Instructions RAIN [...] in 2 weeks Where: [address] [place] [address]- [phone] Business (1) Medications What How Much When Instructions Next Dose New phenazopyridine (Pyridium 100 mg Tab) 1 Tablets By Mouth 3 times a day Duration: 3 Days Pickup at [facility]/pharmacy #[id number] Unchanged lithium (lithium 300 mg oral tablet) 3 Tablets By Mouth At bedtime Unchanged omeprazole (omeprazole 20 mg Cap-DR) 1 Capsules By Mouth Every day Unchanged oxcarbazepine (oxcarbazepine 300 mg Tab) 1 Tablets By Mouth Every day Unchanged tretinoin topical (tretinoin Top 0.1% Crm) 1 Application Topical Once a day (at bedtime) Unchanged venlafaxine as directed Pharmacy Information [facility]/pharmacy #[id number]: [address], [place] [phone] Education Materials Cystoscopy ??? Voiding after the [...] completing your survey. Thank you for choosing [facility]. Veto Award Nomination The VETO (Diseases Attacking [...] signed up for this yet, please contact [employer] at [phone] to get signed up today. Patient (more content not included)... Normal [facility] Comment on above: Result Comment: Elec tronically Signed By: Chayo SUNG, Reed Brandon\.marian\Date and Time Signed: 06/24/24 08:53 EST Inpatient Patient Summaryon 06-24-2024 Inpatient Patient Summary Inpatient Patient Summary [place] [id number] [facility] Clinical Discharge Instructions PERSON INFORMATION [...] (at bedtime). venlafaxine as directed. Comment: Normal [facility] Main OR PACU I Recordon 06-11 Main OR PACU I Record Main OR PACU I Record PACU Phase I Document Type FT Summary Primary Physician: HAMILTON MALONE MD Finalized Date/Time: 06/24/24 09:24:28 Pt. Name: TESFAYERAIN OTERO LEYDA Anderson./Sex: 1960 Female Med Rec #: [id number] Physician: HAMILTON MALONE MD Financial #: [id number] Pt. Type: A Room/Bed: [place] [address] Admit/Disch: 06/24/24 06:38:13 - Institution: Case Times [...] Signed By: Carli Good RN 06/24/24 09:24 [facility] Main OR PACU II Recordon Main OR PACU II Record Main OR PACU II Record PACU Phase II Document Type FT Summary Primary Physician: HAMILTON MALONE MD Finalized Date/Time: 06/24/24 10:19:29 Pt. Name: RAIN SWEENEY Hiwot/Sex: 1960 Female Med Rec #: [id number] Physician: HAMILTON MALONE MD Financial #: [id number] Pt. Type: A Room/Bed: [place] [address] Admit/Disch: 06/24/24 06:38:13 - Institution: Case Times [...] By: Reed Domingo RN 06/24/24 10:19 Normal [facility] Main OR Preoperative Recordo n 06-24-2024 Main OR Preoperative Record Main OR Preoperative Record PreOp Document Type FT Summary Primary Physician: HAMILTON MALONE MD Finalized Date/Time: 06/24/24 08:58:11 Pt. Name: RAIN SWEENEY /Sex: 1960 Female Med Rec #: [id number] Physician: HAMILTON MALONE MD Financial #: [id number] Pt. Type: A Room/Bed: [place] [address] Admit/Disch: 06/24/24 06:38:13 - Institution: Case Times [...] By: Amina Vidales RN 06/24/24 08:58 Normal [facility] Operative Reporton Operative Report Operative Report Patient: [...] in the room agreed. A well-lubricated 22 Togolese cystoscopic sheath with a 30 degree lens [...] 2 weeks discuss pathology, next steps Normal [facility] Comment on above: Result Comment: Elec tronically Signed By: GABBY RAMIREZ, HAMILTON\.marian\Date and Time Signed: 06/24/24 08:47 EST Outpatient Surgery Discharge Instructionon 06-24-2024 Outpatient Surgery Discharge Instruction Outpatient Surgery Discharge Instruction [address] [address] Patient Discharge Instructions PERSON INFORMATION [...] to serve you. Thank you for choosing [facility] HERE ARE THE MEDICATION CHANGES THAT [...] PATIENT EDUCATION INFORMATION Instructions: Medication Leaflets: Normal [facility] XR Chest 2 Viewson XR Chest 2 [...] mGy = . DAP = . Normal [facility] BMPon 06-18-2024 Anion gap [Moles/Vol] 11 mmol/L Normal 6-16 [facility] Comment on above: Performed By: #### 2 [id number] #### [facility] Laboratory [address] [place] [address] Calcium [Mass/Vol] 8.7 mg/dL Low 8.9-11.1 [facility] Comment on above: Performed By: #### 2 [id number] #### [facility] [address] [place] [address] Chloride [Moles/Vol] 105 mmol/L Normal 101-111 [facility] Comment on above: Performed By: #### 2 [id number] #### [facility] [address] [place] [address] CO2 [Moles/Vol] 26 mmol/L Normal 21-31 [facility] Comment on above: Performed By: #### 2 [id number] #### [facility] [address] [place] [address] Creatinine [Mass/Vol] 1.0 mg/dL Normal 0.5-1.3 [facility] Comment on above: Performed By: #### 2 [id number] #### [facility] [address] [place] [address] Glucose [Mass/Vol] 89 mg/dL Normal 55-199 [facility] Comment on above: Performed By: #### 2 [id number] #### [facility] [address] [place] [address] Potassium [Moles/Vol] 4.0 mmol/L Normal 3.5-5.3 [facility] Comment on above: Performed By: #### 2 [id number] #### [facility] [address] [place] [address] Sodium [Moles/Vol] 138 mmol/L Normal 135-145 [facility] Comment on above: Performed By: #### 2 [id number] #### [facility] [address] [place] [address] Urea nitrogen [Mass/Vol] 18 mg/dL Normal 5-21 [facility] Comment on above: Performed By: #### 2 [id number] #### [facility] [address] [place] [address] Urea nitrogen/Creatinine [Mass ratio] 18 No Units Normal 10-20 [facility] Comment on above: Performed By: #### 2 [id number] #### [facility] [address] [place] [address] CBC w/ Auto Diffon 4 Basophils/100 WBC (Bld) 0.9 % Normal 0.0-2.0 [facility] Comment on above: Performed By: #### 2 [id number] #### [facility] [address] [place] [address] Basophils/Leukocytes Auto (Bld) [Pure # fraction] 0.1 E9/L Normal 0.0-0.2 [facility] Comment on above: Performed By: #### 2 [id number] #### [facility] [address] [place] [address] Eosinophils (Bld) [#/Vol] 0.3 E9/L Normal 0.0-0.5 [facility] Comment on above: Performed By: #### 2 [id number] #### [facility] [address] [place] [address] Eosinophils/100 WBC (Bld) 4.5 % Normal 0.0-8.0 [facility] Comment on above: Performed By: #### 2 [id number] #### [facility] [address] [place] [address] Erythrocyte distribution width (RBC) [Ratio] 15.1 % High 10.9-14.2 [facility] Comment on above: Performed By: #### 2 [id number] #### [facility] [address] [place] [address] Hematocrit (Bld) [Volume fraction] 46.2 % High 34.0-46.0 [facility] Comment on above: Performed By: #### 2 [id number] #### [facility] [address] [place] [address] Hemoglobin (Bld) [Mass/Vol] 15.4 g/dL Normal 12.0-16.0 [facility] Comment on above: Performed By: #### 2 [id number] #### [facility] [address] [place] [address] Lymphocytes (Bld) [#/Vol] 2.2 E9/L Normal 1.0-4.0 [facility] Comment on above: Performed By: #### 2 [id number] #### [facility] [address] [place] [address] Lymphocytes/100 WBC (Bld) 28.8 % Normal 14.0-50.0 [facility] Comment on above: Performed By: #### 2 [id number] #### [facility] [address] [place] [address] MCH (RBC) [Entitic mass] 29.8 pg Normal 27.0-34.0 [facility] Comment on above: Performed By: #### 2 [id number] #### [facility] [address] [place] [address] MCHC (RBC) [Mass/Vol] 33.2 g/dL Normal 31.4-36.0 [facility] Comment on above: Performed By: #### 2 [id number] #### [facility] [address] [place] [address] MCV (RBC) [Entitic vol] 89.5 fL Normal 80.0-100.0 [facility] Comment on above: Performed By: #### 2 [id number] #### [facility] [address] [place] [address] Monocytes (Bld) [#/Vol] 0.7 E9/L Normal 0.2-1.0 [facility] Comment on above: Performed By: #### 2 [id number] #### [facility] [address] [place] [address] Neutrophils (Bld) [#/Vol] 4.3 E9/L Normal 2.0-7.5 [facility] Comment on above: Performed By: #### 2 [id number] #### [facility] [address] [place] [address] Neutrophils/100 WBC (Bld) 56.9 % Normal 36.0-75.0 [facility] Comment on above: Performed By: #### 2 [id number] #### [facility] [address] [place] [address] Platelet mean volume (Bld) [Entitic vol] 8.4 fL Normal 6.4-10.8 [facility] Comment on above: Performed By: #### 2 [id number] #### [facility] [address] [place] [address] Platelets (Bld) [#/Vol] 265.0 E9/L Normal 150.0-500.0 [facility] Comment on above: Performed By: #### 2 [id number] #### [facility] [address] [place] [address] RBC (Bld) [#/Vol] 5.2 E12/L Normal 4.3-5.9 [facility] Comment on above: Performed By: #### 2 [id number] #### [facility] [address] [place] [address] WBC corrected for nucl RBC Auto (Bld) [#/Vol] 7.5 E9/L Normal 4.0-11.0 [facility] Comment on above: Performed By: #### 2 [id number] #### [facility] [address] [place] [address] CHEMISTRYOrdered By: SYSTEM SYSTEM on 06-18-2024 Anion [...] 30.9 s Normal 25.1 - 36.5 second(s) [facility] Comment on above: Interpretive Data: [...] the same coagulation reagent and instrumentation as [facility]. Currently there are no coagulation studies available worldwide for children to 14 days, and no normal ranges. Heparin therapeutic range (represented by Anti-Factor Xa activity of 0.2 - 0.4 U/mL) corresponds to PTT of 56.6 - 109.0 sec. INR Coag (PPP) [Relative time] 1.02 {INR} Invalid Interpretation Code [facility] Comment on above: Interpretive Data: I NR results are specifically intended to assess patients stabilized on long-term Anticoagulation therapy suggested INR s Less Intensive Anticoagulation 2.0 3.0 Conventional Range 3.0 4.5 PT Coag (PPP) [Time] 11.4 s Normal 9.4 - 1 2.5 second(s) [facility] Comment on above: Interpretive Data: [...] the same coagulation reagent and instrumentation as [facility]. Currently there are no coagulation studies available [...] Coag (PPP) [Time] 30.9 second(s) Normal 25.1-36.5 [facility] Comment on above: Result Comment: Para meter [...] the same coagulation reagent and instrumentation as [facility]. Currently there are no coagulation studies available worldwide for children to 14 days, and no normal ranges. Heparin therapeutic range (represented by Anti-Factor Xa activity of 0.2 - 0.4 U/mL) corresponds to PTT of 56.6 - 109.0 sec. Performed By: #### 1 [id number] ####[facility] [id number] [place] [address] INR Coag (PPP) [Relative time] 1.02 {INR} Invalid Interpretation Code [facility] Comment on above: Result Comment: INR results are specifically intended to assess patients stabilized on long-term Anticoagulation therapy suggested INR???s ???Less Intensive Anticoagulation??? 2.0 ??? 3.0 Conventional Range 3.0 ??? 4.5 Performed By: #### 1 [id number] ####[facility] [address] [place] [address] PT Coag (PPP) [Time] 11.4 second(s) Normal 9.4-12.5 [facility] Comment on above: Result Comment: 15 d [...] the same coagulation reagent and instrumentation as [facility]. Currently there are no coagulation studies available worldwide for children to 14 days, and no normal ranges. Performed By: #### 1 [id number] ####[facility] [address] [place] [address] UA with Cult Rflxon 06-18-20 24 Bilirubin Ql (U) Negative Normal Negative [facility] Comment on above: Performed By: #### 4 [id number] #### [facility] [address] [place] [address] Clarity (U) Clear Normal Clear [facility] Comment on above: Performed By: #### 4 [id number] #### [facility] [address] [place] [address] Color (U) Colorless Abnormal Yellow [facility] Comment on above: Result Comment: Micr oscopic readings are only performed on those samples that meet specific criteria set forth by [facility]. Performed By: #### 4 [id number] #### [facility] [address] [place] [address] Glucose Ql (U) Negative Normal Negative [facility] Comment on above: Performed By: #### 4 [id number] #### [facility] [address] [place] [address] Hemoglobin Auto test strip (U) [Mass/Vol] Trace Abnormal Negative [facility] Comment on above: Performed By: #### 4 [id number] #### [facility] [address] [place] [address] Ketones Auto test strip Ql (U) Negative Normal Negative [facility] Comment on above: Performed By: #### 4 [id number] #### [facility] [address] [place] [address] Leukocyte esterase Auto test strip Ql (U) Negative Normal Negative [facility] Comment on above: Performed By: #### 4 [id number] #### [facility] [address] [place] [address] Nitrite Auto test strip Ql (U) Negative Normal Negative [facility] Comment on above: Performed By: #### 4 [id number] #### [facility] [address] [place] [address] pH (U) 6.0 [pH] Invalid Interpretation Code 5.0-9.0 [facility] Comment on above: Performed By: #### 4 [id number] #### [facility] [address] [place] [address] Protein Ql (U) Negative Normal Negative [facility] Comment on above: Performed By: #### 4 [id number] #### [facility] [address] [place] [address] Specific gravity (U) [Rel density] 1.005 Invalid Interpretation Code 1.005-1.030 [facility] Comment on above: Performed By: #### 4 [id number] #### [facility] [address] [place] [address] Urobilinogen (U) [Mass/Vol] Negative Normal Negative [facility] Comment on above: Performed By: #### 4 [id number] #### [facility] [address] [place] [address] Type of Urine collection method Clean Catch Normal [facility] Comment on above: Performed By: #### 4 [id number] #### [facility] [facility] [address] [place] [address] URINALYSISOrdered By: SYSTEM SYSTEM on 06-18-2024 Bilirubin [...] that meet specific criteria set forth by [facility]. Glucose Ql (U) Negative Normal Negativemg/d [...] 06-18-2024 eGFR 64 mL/min/1.73 m2 Normal >=59 [facility] Comment on above: Performed By: #### 1 [id number] #### [facility] [address] [place] [address] Ambulatory Visit Summaryon 1 08-11-2023 Ambulatory Visit [...] Follow-Up Appointments Friday 3:30 PM EST Where: [facility] 2023 9:00 AM EST Where: [facility] You Need to [...] including vitamins, herbs, eye drops, creams, and acol-wcu-zylcwqz medicines. ??? Any problems you or family [...] nguyen (more content not included)... Normal [facility] Urology Office/Clinic Noteon 06-11-2024 Urology Office/Clinic Note [...] times per week. SE discussed. Sent to [employer]. 4. Urethral caruncle (N36.2: Urethral caruncle) See [...] with voice recognition artificial intelligence software, specifically [employer] and or [employer]. Substitutions may have occurred due to the inherent limitations of voice recognition and artificial intelligence software. Documentation recorded by the scribe, Shahla Evans, accurately reflects the services(s) I performed and decisions made by me. Authenticated by Dr. Malone on 06/11/2024 10:32:41. Problem List/Past Medic (more content not included)... Normal [facility] Comment on above: Result Comment: Elec tronically Signed By: GABBY RAMIREZ, HAMILTON\.br\Date and Time Signed: 06/11/24 10:33 EDT\.br\Electronically Co-Signed By: Shahla Evans\.br\Date and Time Co-Signed: 06/11/24 10:15 EDT Laboratory - Chemistry and C hemistry - challengeon 06-04-2024 Bilirubin Ql (U) Negative [facility] Glucose (U) [Mass/Vol] Negative [facility] Ketones Ql (U) Negative [facility] pH (U) 5 [pH] [facility] Specific gravity (U) [Rel density] 1.000 [facility] Urobilinogen (U) [Mass/Vol] 0.2 mg/dL [facility] Laboratory - Specimen inform ationon 06-04-2024 Appearance (U) cloudy [facility] Color (U) alvin [facility] Laboratory - Urinalysison Leukocyte esterase Test strip Ql (U) ++ [facility] Nitrite Ql (U) Negative [facility] Protein Ql (U) Negative [facility] No Panel Informationon 06-04 Urine Occult Blood +++ [facility] Urine Cultureon 06-04-2024 Bacteria identified Cx Nom (U) ORGANISM: Klebsiella pneumoniae (O:KLEPNE) [place] Count >100,000 Aerobic ILANA Charge (NMIC56) ----- [...] RESISTANT TO ALL B-LACTAM DRUGS. PERFORMED BY: [place] [address] PATHOLOGIST ADJUNCT PROFESSOR OF VOICE ALEXEI COLE M.D. Normal [facility] Comment on above: Performed By: #### C UU #### [address] Urine cultureOrdered By: Gabriela Barry on 06-04-2024 Bacteria identified Cx Nom (U) Abnormal [facility] Urology Office/Clinic Noteon 05-28-2024 Urology Office/Clinic [...] E&M of New Patient Moderate 45-59 Min 18037 Orders: ciprofloxacin, See Instructions, 1 tab po day prior to cysto, 1 tab po following cysto, # 2 tab(s), Refills(s) 0, Pharmacy: [facility]/pharmacy #[id number], 170, cm, 05/25/24 10:38:00 EDT, Height/Length Dosing, 84, kg, 05/25/24 10:38:00 EDT, Weight Dosing Follow-up With When Contact Information [facility] [address] [place] [address] Business (1) Additional Instructions: our hand iii cutter will be contacting you for follow-up Patient [...] venlafaxine Allergies (more content not included)... Normal [facility] Comment on above: Result Comment: Elec tronically Signed By: MARK CARLTON, KARON Reyes\.br\Date and Time Signed: 05/28/24 14:13 EDT Cholesterol in LDL Calc [Mas s/Vol]on 05-26-2024 Cholesterol in LDL [Mass/Vol] 160.0 mg/dL [facility] Comment on above: <100 mg/dl [id number] 0-129 mg/dl NEAR OR ABOVE CETYMQV949-007 mg/dl BORDERLINE [id number] mg/dl HIGH>190 mg/dl VERY HIGH Cholesterol in LDL [Mass/Vol] Cholesterol in LDL [Mass/volume] in Serum or Plasma by calculation [facility] Comment on above: <100 mg/dl [id number] 0-129 mg/dl NEAR OR ABOVE LRGROUJ390-447 mg/dl BORDERLINE [id number] mg/dl HIGH>190 mg/dl VERY HIGH Cholesterol in VLDL Calc [Ma ss/Vol]on 05-26-2024 Cholesterol in VLDL [Mass/Vol] 41.0 mg/dL [facility] Cholesterol in VLDL [Mass/Vol] Cholesterol in VLDL [Mass/volume] in Serum or Plasma by calculation [facility] Estimated glomerular filtrat ion rate (GFR) non- Americanon 05-26-2024 GFR/1.73 sq M.predicted among non-blacks MDRD (S/P/Bld) [Vol rate/Area] 44 mL/min/{1.73_m2} Low >=60 mL/min/1.73m 2 [facility] GFR/1.73 sq M.predicted among non-blacks MDRD (S/P/Bld) [Vol rate/Area] Estimated glomerular filtration rate (GFR) non- Low >=60 mL/min/1.73m 2 [facility] Globulin Calc (S) [Mass/Vol] on 05-26-2024 Globulin (S) [Mass/Vol] 4.3 g/dL [facility] Globulin (S) [Mass/Vol] Serum globulin measurement by calculation (mass/volume) [facility] - Chemistry and C hemistry - challengeon 05-26-2024 Albumin [Mass/Vol] 3.5 g/dL 3.4-5.0 [facility] ALP [Catalytic activity/Vol] 110 U/L 46-116 [facility] ALT [Catalytic activity/Vol] 21 U/L 14-59 [facility] AST [Catalytic activity/Vol] 14 U/L Low 15-37 [facility] Bilirubin [Mass/Vol] 0.2 mg/dL 0.2-1.0 [facility] Bilirubin.direct [Mass/Vol] 0.1 mg/dL 0.0-0.2 [facility] Cholesterol [Mass/Vol] 281 mg/dL High <=200 Fi [facility] Cholesterol in HDL [Mass/Vol] 80 mg/dL High 40-60 [facility] Comment on above: > or =60 mg/dl - LOW CARDIOVASCULAR RISK<40 mg/dl - HIGH CARDIOVASCULAR RISK Creatinine [Mass/Vol] 1.24 mg/dL High 0.55-1.02 [facility] GFR/1.73 sq M.predicted MDRD (S/P/Bld) [Vol rate/Area] 53 mL/min/{1.73_m2} Low >=60 mL/min/1.73m 2 [facility] Glucose [Mass/Vol] 110 mg/dL High 74-106 [facility] Protein [Mass/Vol] 7.8 g/dL 6.4-8.2 [facility] Triglyceride [Mass/Vol] 205 mg/dL High <=150 F [facility] TSH Qn 1.756 m[IU]/L 0.358-3.740 [facility] Urea nitrogen [Mass/Vol] 16.0 mg/dL 7.0-18.0 [facility] No Panel Informationon 05-26 [place] Level 0.6 mmol/L 0.5-1.2 [facility] Comment on above: A concentration of 0 .5-0.8 mmol/L is advised for long-termuse; concentrations of up to 1.2 mmol/L may be necessaryduring acute treatment. Detection Limit = 0.1 <0.1 indicates None DetectedPerformed at: - [facility] [address] [id number] Director: Reji Williamson PhD, Phone: [phone] Serum or plasma albumin/glob ulin mass ratioon 05-26-2024 Albumin/Globulin [Mass ratio] 0.8 {ratio} [facility] Albumin/Globulin [Mass ratio] Serum or plasma albumin/globulin mass ratio [facility] Serum or plasma total choles terol/high density lipoprotein (HDL) cholesterol mass yoselyn 05-26-2024 Cholesterol.total/Choles terol in HDL [Mass ratio] 3.5 {ratio} [facility] Comment on above: 3.3 - 4.4 LOW RISK4. 4 - 7.1 AVERAGE RISK7.1 - 11.0 MODERATE RISK>11.0 HIGH RISK Cholesterol.total/Choles terol in HDL [Mass ratio] Serum or plasma total cholesterol/high density lipoprotein (HDL) cholesterol mass rat [facility] Comment on above: 3.3 - 4.4 [...] including vitamins, herbs, eye drops, creams, and zhkj-sdk-rrmwfmt medicines. ? Any problems you or family [...] tells you to take them. ? Taking innf-pzc-bxizynn medicines, vitamins, herbs, and supplements. Surgery safety Ask your health care provider: ? How your surgery site will be marked. ? What steps will be taken to help prevent infection. These steps may include: ? Removing hair at the surgery site. ? Washing skin wi (more content not included)... Normal [facility] - Chemistry and C hemistry - challengeon 05-19-2024 Bilirubin Ql (U) Negative [facility] Glucose (U) [Mass/Vol] Negative [facility] Ketones Ql (U) Negative [facility] pH (U) 7.0 [pH] [facility] Specific gravity (U) [Rel density] 1.010 [facility] Urobilinogen (U) [Mass/Vol] 0.2 mg/dL [facility] - Microbiology an d Antimicrobial susceptibilityOrdered By: Adamaris Hill on 05-19-2024 Bacteria identified Cx Nom (U) Klebsiella pneumoniae Abnormal [facility] - Specimen inform ationon 05-19-2024 Appearance (U) clear [facility] Color (U) darkyellow [facility] - Urinalysison Leukocyte esterase Test strip Ql (U) moderate [facility] Nitrite Ql (U) Positive [facility] Protein Ql (U) Negative [facility] No Panel Informationon 05-19 Urine Occult Blood moderate [facility] Urine Cultureon 05-19-2024 Bacteria identified Cx Nom (U) ORGANISM: Klebsiella pneumoniae (O:KLEPNE) [place] Count 75,000 Aerobic ILANA Charge (NMIC56) ----- [...] RESISTANT TO ALL B-LACTAM DRUGS. PERFORMED BY: [place] [address] PATHOLOGIST ADJUNCT PROFESSOR OF VOICE ALEXEI COLE M.D. Normal [facility] Comment on above: Performed By: #### C UU #### [address] Urine cultureOrdered By: Pascale Hill on 05-19-2024 Bacteria identified Cx Nom (U) Abnormal [facility] HBV surface Ag IA Qlon 05-04 Hepatitis B Surface Antigen Negative Negative [facility] Comment on above: Performed at: [facility] [address] [id number] Director: Reji Williamson PhD, Phone: [phone] Performed at: [facility] [address] [id number] Director: Reji Williamson PhD, Phone: [phone] HIV 1 and HIV-2 antibody ass ay with HIV-1 p24 antigen detectionon 05-04-2024 HIV 1+2 Ab+HIV1 p24 Ag IA Ql Non-Reactive Non Reactive [facility] Comment on above: HIV-1/HIV-2 antibodi es and HIV-1 p24 antigen were NOTdetected. There is no laboratory evidence of HIV infection.HIV NegativePerformed at: [facility] [id number] Director: Reji Williamson PhD, Phone: [phone] HIV 1+2 Ab+HIV1 p24 Ag IA Ql HIV 1 and HIV-2 antibody assay with HIV-1 p24 antigen detection Non Reactive [facility] Comment on above: HIV-1/HIV-2 antibodi es and HIV-1 p24 antigen were NOTdetected. There is no laboratory evidence of HIV infection.HIV NegativePerformed at: [facility] [place] [id number] Director: Reji Williamson PhD, Phone: [phone] No Panel Informationon 05-04 RPR Quantitative Confirmation Non Reactive titer NonRea<1:1 [facility] Comment on above: Please Note: This te st does not meet current guidelines forscreening and diagnosis of syphilis. This test isintended for following treatment response in patients beingtreated for syphilis infection. To screen for syphilisinfection, a reflex cascade that includes both RPR and atreponema-specific assay should be utilized, such asTreponema pallidum (Syphilis) Screening [place] (394901) orRapid Plasma Reagin (RPR) Test With Reflex to QuantitativeRPR and Confirmatory Treponema pallidum Antibodies(950009).Performed at: [facility] [place], [place] [id number] Director: Reji Williamson PhD, Phone: [phone] IGP,APTIMA HPV,AGE GDLNon AGE GDLN ACOG TESTING Note . [facility] Comment on above: TESTS RESULT FLAG UN ITS REF RANGE LAB Clinician Provided Cytology Information Source.............Cervix;Endocervix No. of containers..01 ThinPrep Vial Age Algo ACOG Hailee... FLAG LEGEND: L-Low Normal,H-High Normal,LL-Alert Low,HH-Alert High <-Panic Low,>-Panic High,A-Abnormal,AA-Critical Abnormal Performed at: 01 =G [address] [address] Karena Shane MD, HPV APTIMA Negative Negative [facility] Comment on above: This nucleic acid am plification test detects fourteen high- risk HPV types (16,18,31,33,35,39,45,51,52,56,58,59,66,68) without differentiation. Performed at: = - [address] [id number] [employer] Developer: Karena Shane MD, Phone: [phone] Performed at: - [address] [id number] [employer] Developer: Karena Shane MD, Phone: [phone] IGP, APTIMA HPV, RFX 16/18,45 Note . [facility] Comment on above: TESTS RESULT FLAG [facility] REF RANGE LAB DIAGNOSIS: 02 NEGATIVE FOR INTRAEPITHELIAL LESION OR MALIGNANCY. Specimen adequacy: 02 Satisfactory for evaluation. No endocervical component is identified. Performed by: 02 Ernestine Pozo, Steam Gigger (ASCP) . 02 Note: Note 02 The [...] <-Panic Low,>-Panic High,A-Abnormal,AA-Critical Abnormal Performed at: [address] [address] Karena Shane MD, BRUSH-SPATULA CERVIX ENDOCERVIX CLINISYNC [facility] URETHRITIS/DISCHARGE PLUS VA GINITIS (HTRX)on 04-23-2024 ATOPOBIUM VAGINAE 0.000 [facility] ATOPOBIUM VAGINAE Not detected [facility] BVAB 2,3 (BACTERIAL VAGINOSIS ASSOCIATED BACTERIA 2, 3); MOBILUNCUS SPP 0.000 [facility] BVAB 2,3 (BACTERIAL VAGINOSIS ASSOCIATED [...] DNA Probe+sig amp Ql (Cvx) Negative Negative [facility] Comment on above: This nucleic acid am plification test detects fourteen high-risk HPV types (16,18,31,33,35,39,45,51,52,56,58,59,66,68)without differentiation.Performed at: = - [address] [id number] Director: Karena Shane MD, Phone: [phone] at: [address] [id number] Director: Karena Shane MD, Phone: [phone] HPV 16+18+31+33+35+39+45+51+ 52+56+58+59+66+68 DNA Probe+sig amp Ql (Cvx) Human papilloma virus 16+18+31+33+35+39+45 +51+52+56+58+59+66+6 8 DNA [Presence] in Cer Negative [facility] Comment on above: This nucleic acid am plification test detects fourteen high-risk HPV types (16,18,31,33,35,39,45,51,52,56,58,59,66,68)without differentiation.Performed at: =G - [facility] [id number] Director: Karena Shane MD, Phone: [phone] at: - [facility] [id number] Director: Karena Shane MD, Phone: [phone] No Panel Informationon 04-21 HPV High Risk Other Comment Note . [facility] Comment on above: TESTS RESULT FLAG UN ITS REF RANGE LAB --DIAGNOSIS: 02 NEGATIVE FOR INTRAEPITHELIAL LESION OR MALIGNANCY.Specimen adequacy: 02 Satisfactory for evaluation. No endocervical component is identified.Performed by: 02 Ernestine Pozo, Steam Gigger (ASCP). 02Note: Note 02 The Pap smear [...] Low,>-Panic High,A-Abnormal,AA-Critical Abnormal -------Performed at:02 WB [facility] [address] [place] [address] Karena Shane MD, Reference Lab Test Patient Age Note . [facility] Comment on above: TESTS RESULT FLAG UN ITS REF RANGE LAB -- Clinician Provided Cytology Information Source.............Cervix;Endocervix No. of containers..01 ThinPrep VialAge Alyciao VILLA Hailee... - FLAG LEGEND: L-Low Normal,H-High Normal,LL-Alert Low,HH-Alert High <-Panic Low,>-Panic High,A-Abnormal,AA-Critical Abnormal -------Performed at:01 =G [facility] [place] [address] [facility] [place] [address] Karena Shane MD, Basophils Auto (Bld) [#/Vol] on 04-09-2024 Basophils (Bld) [#/Vol] 0.1 10 3/uL 0.0-0.1 [facility] Basophils (Bld) [#/Vol] Automated basoph il count 0.0-0.1 [facility] Basophils/100 WBC Auto (Bld) on 04-09-2024 Basophils/100 WBC (Bld) 0.8 % 0.2-2.0 [facility] Basophils/100 WBC (Bld) Automated basophil % 0. 2-2.0 [facility] Cholesterol in LDL Calc [Mas s/Vol]on 04-09-2024 Cholesterol in LDL [Mass/Vol] 156.0 mg/dL [facility] Comment on above: <100 mg/dl JOSAVGN54 0-129 mg/dl NEAR OR ABOVE MMWNMJK386-494 mg/dl BORDERLINE KGTT444-429 mg/dl HIGH>190 mg/dl VERY HIGH Cholesterol in LDL [Mass/Vol] Cholesterol in LDL [Mass/volume] in Serum or Plasma by calculation [facility] Comment on above: <100 mg/dl FFFMOXJ70 0-129 mg/dl NEAR OR ABOVE FXFSSKZ227-890 mg/dl BORDERLINE RBZR128-058 mg/dl HIGH>190 mg/dl VERY HIGH Cholesterol in VLDL Calc [Ma ss/Vol]on 04-09-2024 Cholesterol in VLDL [Mass/Vol] 37.6 mg/dL [facility] Cholesterol in VLDL [Mass/Vol] Cholesterol in VLDL [Mass/volume] in Serum or Plasma by calculation [facility] Eosinophils/100 WBC Auto (Bl d)on 04-09-2024 Eosinophils/100 WBC (Bld) 2.3 % 0.9-7.0 [facility] Eosinophils/100 WBC (Bld) Automated eosinophil % 0.9-7.0 [facility] Erythrocyte distribution wid th Auto (RBC) [Ratio]on 04-09-2024 Erythrocyte distribution width (RBC) [Ratio] 14.2 % 11.0-15.0 [facility] Erythrocyte distribution width (RBC) [Ratio] Erythrocyte distribution width [Ratio] by Automated count 11.0-15.0 [facility] Globulin Calc (S) [Mass/Vol] on 04-09-2024 Globulin (S) [Mass/Vol] 3.7 g/dL [facility] Globulin (S) [Mass/Vol] Serum globulin measurement by calculation (mass/volume) [facility] Hematocrit Auto (Bld) [Volum e fraction]on 04-09-2024 Hematocrit (Bld) [Volume fraction] 48.4 % High 36.0-48.0 [facility] Hematocrit (Bld) [Volume fraction] Hematocrit [Volume Fraction] of Blood by Automated count High 36.0-48.0 [facility] Hemoglobin [Mass/volume] in Bloodon 04-09-2024 Hemoglobin (Bld) [Mass/Vol] 15.8 g/dL 12.0-16.0 [facility] Hemoglobin (Bld) [Mass/Vol] Hemoglobin [Mass/volume] in Blood 12.0-16.0 [facility] - Chemistry and C hemistry - challengeon 04-09-2024 Albumin [Mass/Vol] 3.5 g/dL 3.4-5.0 [facility] ALP [Catalytic activity/Vol] 92 U/L 46-116 [facility] ALT [Catalytic activity/Vol] 30 U/L 14-59 [facility] AST [Catalytic activity/Vol] 17 U/L 15-37 [facility] Bilirubin [Mass/Vol] 0.6 mg/dL 0.2-1.0 [facility] Bilirubin.direct [Mass/Vol] 0.1 mg/dL 0.0-0.2 [facility] Cholesterol [Mass/Vol] 263 mg/dL High <=200 [facility] Cholesterol in HDL [Mass/Vol] 70 mg/dL High 40-60 [facility] Comment on above: > or =60 mg/dl - LOW CARDIOVASCULAR RISK<40 mg/dl - HIGH CARDIOVASCULAR RISK Protein [Mass/Vol] 7.2 g/dL 6.4-8.2 [facility] Triglyceride [Mass/Vol] 188 mg/dL High <=150 [facility] - Hematology and Cell countson 04-09-2024 Immature granulocytes/100 WBC (Bld) 0.7 % High 0.0-0.5 [facility] Leukocytes [#/volume] correc sheeba for nucleated erythrocytes in Blood by Automated counon 04-09-2024 WBC corrected for nucl RBC Auto (Bld) [#/Vol] 7.4 10 3/uL 4.0-11.0 [facility] WBC corrected for nucl RBC Auto (Bld) [#/Vol] Leukocytes [#/volume] corrected for nucleated erythrocytes in Blood by Automated coun 4.0-11.0 [facility] Lymphocytes Auto (Bld) [#/Vo l]on 04-09-2024 Lymphocytes (Bld) [#/Vol] 1.9 10 3/uL 1.2-3.8 [facility] Lymphocytes (Bld) [#/Vol] Lymphocytes [#/volume] in Blood by Automated count 1.2-3.8 [facility] Lymphocytes/100 WBC Auto (Bl d)on 04-09-2024 Lymphocytes/100 WBC (Bld) 25.8 % 20.5-60.0 [facility] Lymphocytes/100 WBC (Bld) Lymphocytes/100 leukocytes in Blood by Automated count 20.5-60.0 [facility] MCH Auto (RBC) [Entitic mass ]on 04-09-2024 MCH (RBC) [Entitic mass] 29.5 pg 26.7-34.0 [facility] MCH (RBC) [Entitic mass] MCH [Entitic ma ss] by Automated count 26.7-34.0 [facility] MCHC Auto (RBC) [Mass/Vol]on 04-09-2024 MCHC (RBC) [Mass/Vol] 32.6 g/dL 29.9-35.2 [facility] MCHC (RBC) [Mass/Vol] MCHC [Mass/volume] by Automated count 29.9-35.2 [facility] MCV Auto (RBC) [Entitic vol] on 04-09-2024 MCV (RBC) [Entitic vol] 90.3 fL 81.0-99.0 [facility] MCV (RBC) [Entitic vol] MCV [Entitic vol ume] by Automated count 81.0-99.0 [facility] Monocytes Auto (Bld) [#/Vol] on 04-09-2024 Monocytes (Bld) [#/Vol] 0.6 10 3/uL 0.3-0.8 [facility] Monocytes (Bld) [#/Vol] Automated blood monocyte count 0.3-0.8 [facility] Monocytes/100 WBC Auto (Bld) on 04-09-2024 Monocytes/100 WBC (Bld) 7.9 % 1.7-12.0 [facility] Monocytes/100 WBC (Bld) Automated monocyte % 1. 7-12.0 [facility] Neutrophils Auto (Bld) [#/Vo l]on 04-09-2024 Neutrophils (Bld) [#/Vol] 4.6 10 3/uL 1.4-6.5 [facility] Neutrophils (Bld) [#/Vol] Neutrophils [#/volume] in Blood by Automated count 1.4-6.5 [facility] Neutrophils/100 WBC Auto (Bl d)on 04-09-2024 Neutrophils/100 WBC (Bld) 62.5 % 43.0-75.0 [facility] Neutrophils/100 WBC (Bld) Automated neutrophil % 43.0-75.0 [facility] No Panel Informationon 04-09 Eosinophils # (Auto) 0.2 10 3/uL 0.0-0.7 [facility] Follicle Stimulating Hormone 71.8 mIU/mL 25.8-134.8 [facility] Comment on above: Adult Female Range F ollicular phase 3.5 - 12.5 Ovulation phase 4.7 - 21.5 Luteal phase 1.7 - 7.7 Postmenopausal 25.8 - 134.8Performed at: [facility] [place], [place] [id number] Director: Reji Williamson PhD, Phone: [phone] Immature Granulocyte # (Auto) 0.05 10 3/uL High 0.00-0.03 [facility] [place] Level 0.1 mmol/L Abnormal 0.5-1.2 [facility] Comment on above: A concentration of 0 .5-0.8 mmol/L is advised for long-termuse; concentrations of up to 1.2 mmol/L may be necessaryduring acute treatment. Detection Limit = 0.1 <0.1 indicates None DetectedPerformed at: [facility] [place], [place] [id number] Director: Reji Williamson PhD, Phone: [phone] Platelet mean volume Auto (B ld) [Entitic vol]on 04-09-2024 Platelet mean volume (Bld) [Entitic vol] 10.0 fL 9.5-13.5 [facility] Platelet mean volume (Bld) [Entitic vol] Platelet mean volume [Entitic volume] in Blood by Automated count 9.5-13.5 [facility] Platelets Auto (Bld) [#/Vol] on 04-09-2024 Platelets (Bld) [#/Vol] 278 10 3/uL 150-450 [facility] Platelets (Bld) [#/Vol] Platelets [#/vol ume] in Blood by Automated count 150-450 [facility] RBC Auto (Bld) [#/Vol]on RBC (Bld) [#/Vol] 5.36 10 6/uL 4.20-5.40 [facility] RBC (Bld) [#/Vol] Erythrocytes [#/volume] in Blood by Automated count 4.20-5.40 [facility] Serum or plasma albumin/glob ulin mass ratioon 04-09-2024 Albumin/Globulin [Mass ratio] 0.9 {ratio} [facility] Albumin/Globulin [Mass ratio] Serum or plasma albumin/globulin mass ratio [facility] Serum or plasma total choles terol/high density lipoprotein (HDL) cholesterol mass yoselyn 04-09-2024 Cholesterol.total/Choles terol in HDL [Mass ratio] 3.8 {ratio} [facility] Comment on above: 3.3 - 4.4 LOW RISK4. 4 - 7.1 AVERAGE RISK7.1 - 11.0 MODERATE RISK>11.0 HIGH RISK Cholesterol.total/Choles terol in HDL [Mass ratio] Serum or plasma total cholesterol/high density lipoprotein (HDL) cholesterol mass rat [facility] Comment on above: 3.3 - 4.4 [...] SARS-CoV-2 (COVID-19) mRNA-1273 vaccine 11/11/2020 Recorded Normal [facility] Operative Reporton Operative Report [id number] #1.00TIFF Normal [facility] Pathology Noteon 01-08-2024 Pathology Note [id number] #1.00TIFF Normal [facility] [place] 12-31-2023 L Specimen: [id number] Received: 01/01/24 Status: VALERIE Mancini Num: [id number] Spec Type: Surgical Subm Dr: Dieter Loco MD FACS Tissues: A Skin-Other than Cyst, tag, debridement or plastic repair (RT NIPPLE LESION) Procedures: HE, Gross/Micro L4 Age/ Patient Sex Location Account Attending Physician Rain Sweeney 63/F [facility] [id number] Dieter Loco MD FACS SPEC NUM: [id number] RECD: 01/01/24 STATUS: VALERIE JERONIMO NUM: [id number] JOSEMANUEL: 12/31/[address]: Dieter Loco MD [...] surface and entirely submitted in A1. Specimen: [id number] Received: 01/01/24 Status: VALERIE Mancini Num: [id number] Spec Type: Surgical Subm Dr: Dieter Loco MD FACS Tissues: A Skin-Other than Cyst, tag, debridement or plastic repair (RT NIPPLE LESION) Procedures: Ita FLOYD/Carlo Baker Patient: Rain Sweeney [id number] (Continued) Specimen: [id number] Received: 01/01/24 (Continued) Signed (signature on file) Bobbi Buckner MD 01/05/24 181 Specimen: [id number] Received: 01/01/24 Status: VALERIE Mancini Num: [id number] Spec Type: Surgical Subm Dr: Dieter Loco MD FACS Tissues: A Skin-Other than Cyst, tag, debridement or plastic repair (RT NIPPLE LESION) Procedures: Ita FLOYD/Carlo Baker Patient: Rain Sweeney [id number] (Continued) Specimen: [id number] Received: 01/01/24 (Continued) CPT Codes 16815 Specimen: [id number] Received: 01/01/24 Status: VALERIE Mancini Num: [id number] Spec Type: Surgical Subm Dr: Dieter Loco MD FACS Tissues: A Skin-Other than Cyst, tag, debridement or plastic repair (RT NIPPLE LESION) Procedures: Ita FLOYD/Carlo L4 Patient: Rain Sweeney [id number] (Continued) Signed (signature on file) Bobbi Buckner MD 01/05/241811 Normal [facility] Consent for Procedure/Surger yon 11-21-2023 Consent for Procedure/Surgery [id number] #1.00TIFF Normal [facility] Facesheeton 11-20-2023 Facesheet [id number] #1.00TIFF Normal [facility] RAD - Ultrasound Reporton RAD - Ultrasound Report [id number] #1.00TIFF Normal [facility] Ambulatory Visit Summaryon 0 11-19-2023 Ambulatory [...] choosing us for your care. Normal [facility] Basophils Auto (Bld) [#/Vol] on 11-18-2023 Basophils (Bld) [#/Vol] 0.1 10 3/uL 0.0-0.1 [facility] Basophils/100 WBC Auto (Bld) on 11-18-2023 Basophils/100 WBC (Bld) 0.9 % 0.2-2.0 [facility] Cholesterol in LDL Calc [Mas s/Vol]on 11-18-2023 Cholesterol in LDL [Mass/Vol] 130.0 mg/dL [facility] Comment on above: <100 mg/dl [id number] 0-129 mg/dl NEAR OR ABOVE [id number] mg/dl BORDERLINE [id number] mg/dl HIGH>190 mg/dl VERY HIGH Cholesterol in VLDL Calc [Ma ss/Vol]on 11-18-2023 Cholesterol in VLDL [Mass/Vol] 19.8 mg/dL [facility] Eosinophils/100 WBC Auto (Bl d)on 11-18-2023 Eosinophils/100 WBC (Bld) 4.5 % 0.9-7.0 [facility] Erythrocyte distribution wid th Auto (RBC) [Ratio]on 11-18-2023 Erythrocyte distribution width (RBC) [Ratio] 13.6 % 11.0-15.0 [facility] Estimated glomerular filtrat ion rate (GFR) non- Americanon 11-18-2023 GFR/1.73 sq M.predicted among non-blacks MDRD (S/P/Bld) [Vol rate/Area] 55 mL/min/{1.73_m2} >=60 [facility] Globulin Calc (S) [Mass/Vol] on 11-18-2023 Globulin (S) [Mass/Vol] 3.6 g/dL [facility] Glucose mean value [Mass/vol ume] in Blood Estimated from glycated hemoglobinon 11-18-2023 Average glucose Estimated from glycated hemoglobin (Bld) [Mass/Vol] 100 mg/dL [facility] Hematocrit Auto (Bld) [Volum e fraction]on 11-18-2023 Hematocrit (Bld) [Volume fraction] 46.8 % 36.0-48.0 [facility] Hemoglobin [Mass/volume] in Bloodon 11-18-2023 Hemoglobin (Bld) [Mass/Vol] 15.0 g/dL 12.0-16.0 [facility] Laboratory - Chemistry and C hemistry - challengeon 11-18-2023 Albumin [Mass/Vol] 3.7 g/dL 3.4-5.0 [facility] ALP [Catalytic activity/Vol] 83 U/L 46-116 [facility] ALT [Catalytic activity/Vol] 40 U/L 14-59 [facility] AST [Catalytic activity/Vol] 22 U/L 15-37 [facility] Bilirubin [Mass/Vol] 0.4 mg/dL 0.2-1.0 [facility] Calcium [Mass/Vol] 9.1 mg/dL 8.5-10.1 [facility] Chloride [Moles/Vol] 104 mmol/L 98-107 [facility] Cholesterol [Mass/Vol] 226 mg/dL <=200 [facility] Cholesterol in HDL [Mass/Vol] 77 mg/dL 40-60 [facility] Comment on above: > or =60 mg/dl - LOW CARDIOVASCULAR RISK<40 mg/dl - HIGH CARDIOVASCULAR RISK CO2 [Moles/Vol] 26.6 mmol/L 21.0-32.0 [facility] Creatinine [Mass/Vol] 1.02 mg/dL 0.55-1.02 [facility] GFR/1.73 sq M.predicted MDRD (S/P/Bld) [Vol rate/Area] mL/min/{1.73_m2} >=60 [facility] Glucose [Mass/Vol] 107 mg/dL 74-106 [facility] Potassium [Moles/Vol] 3.7 mmol/L 3.5-5.1 [facility] Protein [Mass/Vol] 7.3 g/dL 6.4-8.2 [facility] Sodium [Moles/Vol] 141 mmol/L 136-145 [facility] Triglyceride [Mass/Vol] 99 mg/dL <=150 [facility] TSH Qn 1.352 m[IU]/L 0.358-3.740 [facility] Urea nitrogen [Mass/Vol] 9.0 mg/dL 7.0-18.0 [facility] Urea nitrogen/Creatinine [Mass ratio] 8.8 mg/mg [facility] Laboratory - Hematology and Cell countson 11-18-2023 HbA1c (Bld) [Mass fraction] 5.1 % 4.5-6.2 [facility] Comment on above: ADA RECOMMENDED LIMI T 4.0 - 6.0ADA THERAPEUTIC TARGET < 7.0ACTION SUGGESTED> 7.0 Immature granulocytes/100 WBC (Bld) 0.6 % 0.0-0.5 [facility] Leukocytes [#/volume] correc sheeba for nucleated erythrocytes in Blood by Automated counon 11-18-2023 WBC corrected for nucl RBC Auto (Bld) [#/Vol] 6.5 10 3/uL 4.0-11.0 [facility] Lymphocytes Auto (Bld) [#/Vo l]on 11-18-2023 Lymphocytes (Bld) [#/Vol] 1.7 10 3/uL 1.2-3.8 [facility] Lymphocytes/100 WBC Auto (Bl d)on 11-18-2023 Lymphocytes/100 WBC (Bld) 25.3 % 20.5-60.0 [facility] MCH Auto (RBC) [Entitic mass ]on 11-18-2023 MCH (RBC) [Entitic mass] 29.6 pg 26.7-34.0 [facility] MCHC Auto (RBC) [Mass/Vol]on 11-18-2023 MCHC (RBC) [Mass/Vol] 32.1 g/dL 29.9-35.2 [facility] MCV Auto (RBC) [Entitic vol] on 11-18-2023 MCV (RBC) [Entitic vol] 92.3 fL 81.0-99.0 [facility] Monocytes Auto (Bld) [#/Vol] on 11-18-2023 Monocytes (Bld) [#/Vol] 0.5 10 3/uL 0.3-0.8 [facility] Monocytes/100 WBC Auto (Bld) on 11-18-2023 Monocytes/100 WBC (Bld) 7.4 % 1.7-12.0 [facility] Neutrophils Auto (Bld) [#/Vo l]on 11-18-2023 Neutrophils (Bld) [#/Vol] 4.0 10 3/uL 1.4-6.5 [facility] Neutrophils/100 WBC Auto (Bl d)on 11-18-2023 Neutrophils/100 WBC (Bld) 61.3 % 43.0-75.0 [facility] No Panel Informationon 11-17 Eosinophils # (Auto) 0.3 10 3/uL 0.0-0.7 [facility] Immature Granulocyte # (Auto) 0.04 10 3/uL 0.00-0.03 [facility] [place] Level 0.9 mmol/L 0.5-1.2 [facility] Comment on above: A concentration of 0 .5-0.8 mmol/L is advised for long-termuse; concentrations of up to 1.2 mmol/L may be necessaryduring acute treatment. Detection Limit = 0.1 <0.1 indicates None DetectedPerformed at: [facility] [id number] Director: Reji Williamson PhD, Phone: [phone] Outside Mammographyon 2023 Outside Mammography [id number] #1.00TIFF Normal [facility] Platelet mean volume Auto (B ld) [Entitic vol]on 11-18-2023 Platelet mean volume (Bld) [Entitic vol] 10.1 fL 9.5-13.5 [facility] Platelets Auto (Bld) [#/Vol] on 11-18-2023 Platelets (Bld) [#/Vol] 281 10 3/uL 150-450 [facility] RBC Auto (Bld) [#/Vol]on RBC (Bld) [#/Vol] 5.07 10 6/uL 4.20-5.40 [facility] Serum or plasma albumin/glob ulin mass ratioon 11-18-2023 Albumin/Globulin [Mass ratio] 1.0 {ratio} [facility] Serum or plasma anion gap de terminationon 11-18-2023 Anion gap [Moles/Vol] 14.1 mmol/L [facility] Serum or plasma total choles terol/high density lipoprotein (HDL) cholesterol mass yoselyn 11-18-2023 Cholesterol.total/Choles terol in HDL [Mass ratio] 2.9 {ratio} [facility] Comment on above: 3.3 - 4.4 LOW RISK4. 4 - 7.1 AVERAGE RISK7.1 - 11.0 MODERATE RISK>11.0 HIGH RISK Physician Referralon 024 Physician Referral [id number] #1.00TIFF Normal [facility] XR LSPINE 2_3 VIEWSon 2022 XR LSPINE [...] MAKEDA QUIROZ Date: 2022-12-06 11:24 Normal [facility] LITHIUMon 11-27-2022 [place] (Eskalith(R)), Serum 0.8 mmol/L Normal 0.5-1.2 [facility] Comment on above: Result Comment: A co ncentration of 0.5-0.8 mmol/L is advised for long-term use; concentrations of up to 1.2 mmol/L may be necessary during acute treatment. Detection Limit = 0.1 <0.1 indicates None Detected Performed By: #### L ITHIUM ####[facility] [id number] [address]Dr. Laurel Buckner CREATININEon 11-26-2022 Creatinine [Mass/Vol] 0.97 mg/dL Normal 0.55-1.02 [facility] Comment on above: Performed By: #### T SH, CREA #### [facility] [address] [address] [address] Laurel Buckner EGFR-AF PAPUA [place] GU[place] >60 Normal >=60 [facility] Comment on above: Performed By: #### T SH, CREA #### [facility] [address] [address] [address] Laurel Buckner EGFR-NON AF [place] 59 mL/min/1.73m2 Critically low >=60 [facility] Comment on above: Performed By: #### T SH, CREA #### [facility] [address] [address] [address] Laurel Buckner TSHon 11-26-2022 TSH 1.616 uIU/mL Normal 0.358-3.740 [facility] Comment on above: Performed By: #### T SH, CREA #### [facility] [address] [place] [address] Dr. Laurel Buckner MG MAMM SCREEN 3D TOMY CADon 11-14-2022 MG MAMM SCREEN 3D TOMY CAD Patient: RAIN SWEENEY Exam Date: 11/14/2022 : 1960 Gender:F Ordering : DR SEB BARRY M.D. Admission #: [id number] Family : Order #: [id number] CLICK HERE TO VIEW EXAM RADIOLOGY REPORT [...] colon cancer at age 62. LOCATION: [facility] BREAST COMPOSITION: Heterogeneously dense,which may obscure [...] Quiroz MD on 11/14/2022 at 12:03 Normal [facility] LITHIUMon 05-16-2022 [place] (Eskalith(R)), Serum 0.8 mmol/L Normal 0.5-1.2 [facility] Comment on above: Result Comment: Plas ma concentration of 0.5 - 0.8 mmol/L are advised for long-term use; concentrations of up to 1.2 mmol/L may be necessary during acute treatment. Detection Limit = 0.1 <0.1 indicates None Detected Performed By: #### L ITHIUM #### [facility] [address] [place] [address] Dr. Laurel Buckner CBC AUTO DIFFon 05-15-2022 BASO # 0.1 103/ul Normal 0.0-0.1 [facility] Comment on above: Performed By: #### C BC #### [facility] [address] [place] [address] Dr. Laurel Buckner Basophils/100 WBC (Bld) 1.0 % Normal 0.2-2.0 [facility] Comment on above: Performed By: #### C BC #### [facility] [address] [place] [address] Dr. Laurel Buckner EO # 0.4 103/ul Normal 0.0-0.7 [facility] Comment on above: Performed By: #### C BC #### [facility] [address] [place] [address] Dr. Laurel Buckner Eosinophils/100 WBC (Bld) 5.3 % Normal 0.9-7.0 [facility] Comment on above: Performed By: #### C BC #### [facility] [address] [place] [address] Dr. Laurel Buckner Erythrocyte distribution width (RBC) [Ratio] 13.8 % Normal 11.0-15.0 [facility] Comment on above: Performed By: #### C BC #### [facility] [address] [place] [address] Dr. Laurel Buckner Hematocrit (Bld) [Volume fraction] 46.8 % Normal 36.0-48.0 [facility] Comment on above: Performed By: #### C BC #### [facility] [address] [place] [address] Dr. Laurel Buckner Hemoglobin (Bld) [Mass/Vol] 14.8 g/dL Normal 12.0-16.0 [facility] Comment on above: Performed By: #### C BC #### [facility] [address] [place] [address] Dr. Laurel Buckner IG # 0.07 10e3/ul Critically high 0.00-0.03 [facility] Comment on above: Performed By: #### C BC #### [facility] [address] [place] [address] Dr. Laurel Buckner IG % 1.0 % Critically high 0.0-0.5 [facility] Comment on above: Performed By: #### C BC #### [facility] [address] [place] [address] Dr. Laurel Buckner LYMPH # 1.7 103/ul Normal 1.2-3.8 [facility] Comment on above: Performed By: #### C BC #### [facility] [address] [place] [address] Dr. Laurel Buckner Lymphocytes/100 WBC (Bld) 25.4 % Normal 20.5-60.0 [facility] Comment on above: Performed By: #### C BC #### [facility] [address] [place] [address] Dr. Laurel Buckner MANUAL DIFF REQ NO Normal [facility] Comment on above: Performed By: #### C BC #### [facility] [address] [place] [address] Dr. Laurel Buckner MCH (RBC) [Entitic mass] 29.5 pg Normal 26.7-34.0 [facility] Comment on above: Performed By: #### C BC #### [facility] [address] [address] [address] Laurel Buckner MCHC (RBC) [Mass/Vol] 31.6 g/dL Normal 29.9-35.2 [facility] Comment on above: Performed By: #### C BC #### [facility] [address] [address] [address] Laurel Buckner MCV (RBC) [Entitic vol] 93.4 fL Normal 81.0-99.0 [facility] Comment on above: Performed By: #### C BC #### [facility] [address] [address] [address] Laurel Buckner MONO # 0.6 103/ul Normal 0.3-0.8 [facility] Comment on above: Performed By: #### C BC #### [facility] [address] [place] [address] Dr. Laurel Buckner Monocytes/100 WBC (Bld) 8.4 % Normal 1.7-12.0 [facility] Comment on above: Performed By: #### C BC #### [facility] [address] [place] [address] Dr. Laurel Buckner NEUT # 4.0 103/ul Normal 1.4-6.5 [facility] Comment on above: Performed By: #### C BC #### [facility] [address] [place] [address] Dr. Laurel Buckner Neutrophils/100 WBC (Bld) 58.9 % Normal 43.0-75.0 [facility] Comment on above: Performed By: #### C BC #### [facility] [address] [address] [address] Laurel Buckner Platelet mean volume (Bld) [Entitic vol] 10.1 fL Normal 9.5-13.5 [facility] Comment on above: Performed By: #### C BC #### [facility] [address] [place] [address] Dr. Laurel Buckner PLT 279 103/ul Normal 150-450 [facility] Comment on above: Result Comment: smea r reviewed Performed By: #### C BC #### [facility] [address] [place] [address] Dr. Laurel Buckner RBC 5.01 106/ul Normal 4.20-5.40 [facility] Comment on above: Performed By: #### C BC #### [facility] [address] [place] [address] Dr. Laurel Buckner WBC 6.8 103/ul Normal 4.0-11.0 [facility] Comment on above: Performed By: #### C BC #### [facility] [address] [place] [address] Dr. Laurel Buckner GLYCOHEMOGLOBIN A1Con 2021 ADA RECOMMENDATION SEE BELOW Normal [facility] Comment on above: Result Comment: ADA RECOMMENDED LIMIT 4.0 - 6.0 ADA THERAPEUTIC TARGET < 7.0 ACTION SUGGESTED > 7.0 Performed By: #### A 1C #### [facility] [address] [place] [address] Dr. Laurel Buckner Glucose [Mass/Vol] 97 mg/dL Normal [facility] Comment on above: Performed By: #### A 1C #### [facility] [address] [place] [address] Dr. Laurel Buckner HbA1c (Bld) [Mass fraction] 5.0 % Normal 4.5-6.2 [facility] Comment on above: Performed By: #### A 1C #### [facility] [address] [place] [address] Dr. Laurel Buckner LIPID PROFILEon 05-15-2022 CHOL-HDL RATIO NORM SEE BELOW Normal [facility] Comment on above: Result Comment: 3.3 - 4.4 LOW RISK 4.4 - 7.1 AVERAGE RISK 7.1 - 11.0 MODERATE RISK >11.0 HIGH RISK Performed By: #### L IPID, TSH, CMP #### [facility] [address] [place] [address] Dr. Laurel Buckner Cholesterol [Mass/Vol] 279 mg/dL Critically high <=200 [facility] Comment on above: Performed By: #### L IPID, TSH, CMP #### [facility] [address] [address] [address] Laurel Buckner Cholesterol in HDL [Mass/Vol] 76 mg/dL Critically high 40-60 [facility] Comment on above: Performed By: #### L IPID, TSH, CMP #### [facility] [address] [address] [address] Laurel Buckner Cholesterol in LDL [Mass/Vol] 162.8 mg/dL Normal [facility] Comment on above: Performed By: #### L IPID, TSH, CMP #### [facility] [address] [address] [address] Laurel Buckner Cholesterol.total/Choles terol in HDL [Mass ratio] 3.7 {ratio} Normal [facility] Comment on above: Performed By: #### L IPID, TSH, CMP #### [facility] [address] [address] [address] Laurel Buckner HDL NORMAL > or = 60 mg/dl - LOW CARDIOVASCULAR RISK <40 mg/dl - HIGH CARDIOVASCULAR RISK Normal [facility] Comment on above: Performed By: #### L IPID, TSH, CMP #### [facility] [address] [address] [address] Laurel Buckner LDL CALC NORMAL SEE BELOW Normal [facility] Comment on above: Result Comment: <100 mg/dl OPTIMAL 100 - 129 mg/dl NEAR OR ABOVE OPTIMAL 130 - 159 mg/dl BORDERLINE HIGH 160 - 189 mg/dl HIGH >190 mg/dl VERY HIGH Performed By: #### L IPID, TSH, CMP #### [facility] [address] [address] [address] Laurel Buckner Triglyceride [Mass/Vol] 201 mg/dL Critically high <=150 [facility] Comment on above: Performed By: #### L IPID, TSH, CMP #### [facility] [address] [address] [address] Laurel Buckner VLDL CALC 40.2 mg/dL Normal [facility] Comment on above: Performed By: #### L IPID, TSH, CMP #### [facility] [address] [address] [address] Laurel Buckner PROF 14(COMP METB)on 022 Albumin [Mass/Vol] 3.6 g/dL Normal 3.4-5.0 [facility] Comment on above: Performed By: #### L IPID, TSH, CMP #### [facility] [address] [address] [address] Laurel Buckner Albumin/Globulin [Mass ratio] 0.9 {ratio} Normal [facility] Comment on above: Performed By: #### L IPID, TSH, CMP #### [facility] [address] [address] [address] Laurel Buckner ALP [Catalytic activity/Vol] 110 U/L Normal 46-116 [facility] Comment on above: Performed By: #### L IPID, TSH, CMP #### [facility] [address] [place] [address] Dr. Laurel Buckner ALT [Catalytic activity/Vol] 22 U/L Normal 14-59 [facility] Comment on above: Performed By: #### L IPID, TSH, CMP #### [facility] [address] [address] [address] Laurel Buckner Anion gap [Moles/Vol] 10.8 mmol/L Normal [facility] Comment on above: Performed By: #### L IPID, TSH, CMP #### [facility] [address] [place] [address] Dr. Laurel Buckner AST [Catalytic activity/Vol] 11 U/L Critically low 15-37 [facility] Comment on above: Performed By: #### L IPID, TSH, CMP #### [facility] [address] [address] [address] Laurel Buckner Bilirubin [Mass/Vol] 0.3 mg/dL Normal 0.2-1.0 [facility] Comment on above: Performed By: #### L IPID, TSH, CMP #### [facility] [address] [address] [address] Laurel Buckner Calcium [Mass/Vol] 9.1 mg/dL Normal 8.5-10.1 [facility] Comment on above: Performed By: #### L IPID, TSH, CMP #### [facility] [address] [address] [address] Laurel Buckner Chloride [Moles/Vol] 103 mmol/L Normal 98-107 [facility] Comment on above: Performed By: #### L IPID, TSH, CMP #### [facility] [address] [place] [address] Dr. Laurel Buckner CO2 [Moles/Vol] 27.9 mmol/L Normal 21.0-32.0 [facility] Comment on above: Performed By: #### L IPID, TSH, CMP #### [facility] [address] [place] [address] Dr. Laurel Buckner Creatinine [Mass/Vol] 0.96 mg/dL Normal 0.55-1.02 [facility] Comment on above: Performed By: #### L IPID, TSH, CMP #### [facility] [address] [place] [address] Dr. Laurel Buckner EGFR-AF P[place]UA [place] >60 Normal >=60 [facility] Comment on above: Performed By: #### L IPID, TSH, CMP #### [facility] [address] [place] [address] Dr. Laurel Buckner EGFR-NON AF PAPUA [place] 59 mL/min/1.73m2 Critically low >=60 [facility] Comment on above: Performed By: #### L IPID, TSH, CMP #### [facility] [address] [place] [address] Dr. Laurel Buckner Globulin (S) [Mass/Vol] 3.9 g/dL Normal [facility] Comment on above: Performed By: #### L IPID, TSH, CMP #### [facility] [address] [place] [address] Dr. Laurel Buckner Glucose [Mass/Vol] 90 mg/dL Normal 74-106 [facility] Comment on above: Performed By: #### L IPID, TSH, CMP #### [facility] [address] [place] [address] Dr. Laurel Buckner Potassium [Moles/Vol] 3.7 mmol/L Normal 3.5-5.1 [facility] Comment on above: Performed By: #### L IPID, TSH, CMP #### [facility] [address] [address] [address] Laurel Buckner Protein [Mass/Vol] 7.5 g/dL Normal 6.4-8.2 [facility] Comment on above: Performed By: #### L IPID, TSH, CMP #### [facility] [address] [address] [address] Laurel Buckner Sodium [Moles/Vol] 138 mmol/L Normal 136-145 [facility] Comment on above: Performed By: #### L IPID, TSH, CMP #### [facility] [address] [place] [address] Dr. Laurel Buckner Urea nitrogen [Mass/Vol] 16.0 mg/dL Normal 7.0-18.0 [facility] Comment on above: Performed By: #### L IPID, TSH, CMP #### [facility] [address] [place] [address] Dr. Laurel Buckner Urea nitrogen/Creatinine [Mass ratio] 16.7 mg/mg Normal [facility] Comment on above: Performed By: #### L IPID, TSH, CMP #### [facility] [address] [place] [address] Dr. Laurel Buckner TSHon 05-15-2022 TSH 3.094 uIU/mL Normal 0.358-3.740 [facility] Comment on above: Performed By: #### L IPID, TSH, CMP #### [facility] [address] [place] [address] Dr. Laurel Buckner Vital Signs Date Time Vital Sign Value Performing Clinician Facility 07-05-2024 10:04-0500 Blood Pressure Location [facility] 07-05-2024 10:04-0500 Diastolic blood pressure 90 mm[Hg] HAMILTON MALONE [facility] 07-05-2024 10:04-0500 Heart rate 109 /min HAMILTON NKANSAH-AMANKRA [facility] 07-05-2024 10:04-0500 Systolic blood pressure 155 mm[Hg] HAMILTON NKANSAH-AMANKRA [facility] 06-24-2024 10:02-0500 Heart rate 89 /min HAMILTON NKANSAH-AMANKRA [facility] 06-24-2024 10:02-0500 SaO2% (BldA) [Mass fraction] 97 % HAMILTON NKANSAH-AMANKRA [facility] 06-24-2024 10:01-0500 Blood Pressure Location HAMILTON NKANSAH-AMANKRA [facility] 06-24-2024 10:01-0500 Diastolic blood pressure 88 mm[Hg] HAMILTON NKANSAH-AMANKRA [facility] 06-24-2024 10:01-0500 Mean blood pressure 104 mm[Hg] HAMILTON NKANSAH-AMANKRA [facility] 06-24-2024 10:01-0500 Systolic blood pressure 137 mm[Hg] HAMILTON NKANSAH-AMANKRA [facility] 06-24-2024 10:01-0500 Respiratory rate 16 /min HAMILTON NKANSAH-AMANKRA [facility] 06-24-2024 09:21-0500 Heart rate 95 /min HAMILTON NKANSAH-AMANKRA [facility] 06-24-2024 09:21-0500 SaO2% (BldA) [Mass fraction] 95 % HAMILTON NKANSAH-AMANKRA [facility] 06-24-2024 09:20-0500 Blood Pressure Location HAMILTON NKANSAH-AMANKRA [facility] 06-24-2024 09:20-0500 Diastolic blood pressure 88 mm[Hg] HAMILTON NKANSAH-AMANKRA [facility] 06-24-2024 09:20-0500 Mean blood pressure 103 mm[Hg] HAMILTON NKANSAH-AMANKRA [facility] 06-24-2024 09:20-0500 Systolic blood pressure 134 mm[Hg] HAMILTON NKANSAH-AMANKRA [facility] 06-24-2024 09:20-0500 Respiratory rate 18 /min HAMILTON NKANSAH-AMANKRA [facility] 06-24-2024 09:13-0500 Body temperature 98.06 [degF] HAMILTON NKANSAH-AMANKRA [facility] 06-24-2024 09:13-0500 Mean blood pressure 92 mm[Hg] HAMILTON NKANSAH-AMANKRA [facility] 06-24-2024 09:13-0500 Respiratory rate 16 /min HAMILTON NKANSAH-AMANKRA [facility] 06-24-2024 08:48-0500 Body temperature 97.7 [degF] HAMILTON NKANSAH-AMANKRA [facility] 06-24-2024 08:48-0500 Mean blood pressure 86 mm[Hg] HAMILTON NKANSAH-AMANKRA [facility] 06-24-2024 07:00-0500 Heart rate 100 /min HAMILTON NKANSAH-AMANKRA [facility] 06-24-2024 06:56-0500 Body temperature 98.24 [degF] HAMILTON NKANSAH-AMANKRA [facility] 06-21-2024 10:32-0500 Body height 170.18 cm Adamaris Liz ALARM ADJUSTER Work Phone: [facility] 06-21-2024 10:32-0500 Body mass index (BMI) [Ratio] 28.8 kg/m2 Adamaris Liz ALARM ADJUSTER Work Phone: [facility] 06-21-2024 10:32-0500 Body weight 83.46 kg Adamaris Liz ALARM ADJUSTER Work Phone: [facility] 06-21-2024 10:32-0500 Diastolic blood pressure 85 mm[Hg] Adamaris Liz ALARM ADJUSTER Work Phone: [facility] 06-21-2024 10:32-0500 Heart rate 102 /min Adamaris Liz ALARM ADJUSTER Work Phone: [facility] 06-21-2024 10:32-0500 Systolic blood pressure 133 mm[Hg] Adamaris Liz ALARM ADJUSTER Work Phone: [facility] 06-18-2024 15:48-0500 Diastolic blood pressure 89 mm[Hg] HAMILTON NKANSAH-AMANKRA [facility] 06-18-2024 15:48-0500 Heart rate 87 /min HAMILTON NKANSAH-AMANKRA [facility] 06-18-2024 15:48-0500 Mean blood pressure 106 mm[Hg] HAMILTON NKANSAH-AMANKRA [facility] 06-18-2024 15:48-0500 Systolic blood pressure 139 mm[Hg] HAMILTON NKANSAH-AMANKRA [facility] 06-18-2024 15:48-0500 Heart rate 59 /min HAMILTON NKANSAH-AMANKRA [facility] 06-18-2024 15:48-0500 SaO2% (BldA) [Mass fraction] 99 % HAMILTON NKANSAH-AMANKRA [facility] 06-18-2024 15:47-0500 Diastolic blood pressure 72 mm[Hg] HAMILTON NKANSAH-AMANKRA [facility] 06-18-2024 15:47-0500 Mean blood pressure 90 mm[Hg] HAMILTON NKANSAH-AMANKRA [facility] 06-18-2024 15:47-0500 Systolic blood pressure 126 mm[Hg] HAMILTON NKANSAH-AMANKRA [facility] 06-11-2024 09:42-0400 Blood Pressure Location HAMILTON NKANSAH-AMANKRA [facility] 06-11-2024 09:42-0400 Diastolic blood pressure 88 mm[Hg] HAMILTON NKANSAH-AMANKRA [facility] 06-11-2024 09:42-0400 Heart rate 103 /min HAMILTON NKANSAH-AMANKRA [facility] 06-11-2024 09:42-0400 Respiratory rate 20 /min HAMILTON NKANSAH-AMANKRA [facility] 06-11-2024 09:42-0400 Systolic blood pressure 149 mm[Hg] HAMILTON NKANSAH-AMANKRA [facility] 05-25-2024 10:30-0400 Blood Pressure Location KARON FLORES [facility] 05-25-2024 10:30-0400 Diastolic blood pressure 74 mm[Hg] KARON FLORES [facility] 05-25-2024 10:30-0400 Heart rate 104 /min KARON FLORES [facility] 05-25-2024 10:30-0400 Systolic blood pressure 138 mm[Hg] KARON FLORES [facility] 05-19-2024 10:20-0400 Body height 170.18 cm PHYSICIAN NO [facility] 05-19-2024 10:20-0400 Body mass index (BMI) [Ratio] 27.3 kg/m2 PHYSICIAN NO [facility] 05-19-2024 10:20-0400 Body temperature 97.8 [degF] PHYSICIAN NO [facility] 05-19-2024 10:20-0400 Body weight 79.37 kg PHYSICIAN NO [facility] 05-19-2024 10:20-0400 Diastolic blood pressure 95 mm[Hg] PHYSICIAN NO [facility] 05-19-2024 10:20-0400 Heart rate 111 /min PHYSICIAN NO [facility] 05-19-2024 10:20-0400 Respiratory rate 18 /min PHYSICIAN NO [facility] 05-19-2024 10:20-0400 SaO2% (BldA) [Mass fraction] 97 % PHYSICIAN NO [facility] 05-19-2024 10:20-0400 Systolic blood pressure 147 mm[Hg] PHYSICIAN NO [facility] 01-30-2024 09:36-0400 Body height 170.18 cm PHYSICIAN NO [facility] 01-30-2024 09:36-0400 Body mass index (BMI) [Ratio] 26.7 kg/m2 PHYSICIAN NO [facility] 01-30-2024 09:36-0400 Body weight 77.56 kg PHYSICIAN NO [facility] 01-30-2024 09:36-0400 Diastolic blood pressure 80 mm[Hg] PHYSICIAN NO [facility] 01-30-2024 09:36-0400 Heart rate 108 /min PHYSICIAN NO [facility] 01-30-2024 09:36-0400 Systolic blood pressure 114 mm[Hg] PHYSICIAN NO [facility] 11-19-2023 13:56-0400 Blood Pressure Location Dieter DialMyAppL [facility] [place] 11-19-2023 13:56-0400 Diastolic blood pressure 92 mm[Hg] Dieter BUSTOSL [facility] [place] 11-19-2023 13:56-0400 Heart rate 72 /min Dieter NILL [facility] [place] 11-19-2023 13:56-0400 Respiratory rate 16 /min Dieter NILL [facility] [place] 11-19-2023 13:56-0400 Systolic blood pressure 132 mm[Hg] Dieter NILL [facility] [place] 11-12-2023 10:20-0400 Body height 170.18 cm PHYSICIAN NO [facility] 11-12-2023 10:20-0400 Body mass index (BMI) [Ratio] 28 kg/m2 PHYSICIAN NO [facility] 11-12-2023 10:20-0400 Body weight 81.36 kg PHYSICIAN NO [facility] 11-12-2023 10:20-0400 Diastolic blood pressure 77 mm[Hg] PHYSICIAN NO [facility] 11-12-2023 10:20-0400 Heart rate 124 /min PHYSICIAN NO [facility] 11-12-2023 10:20-0400 Systolic blood pressure 124 mm[Hg] PHYSICIAN NO [facility] 10-22-2023 09:23-0400 Body height 170.18 cm PHYSICIAN NO [facility] 10-22-2023 09:23-0400 Body mass index (BMI) [Ratio] 29.1 kg/m2 PHYSICIAN NO [facility] 10-22-2023 09:23-0400 Body weight 84.36 kg PHYSICIAN NO [facility] 10-22-2023 09:23-0400 Diastolic blood pressure 85 mm[Hg] PHYSICIAN NO [facility] 10-22-2023 09:23-0400 Heart rate 106 /min PHYSICIAN NO [facility] 10-22-2023 09:23-0400 Systolic blood pressure 140 mm[Hg] PHYSICIAN NO [facility] 05-29-2023 14:00-0400 Body height 170.18 cm Helio Barry Other [facility] Other 05-29-2023 14:00-0400 Body mass index (BMI) [Ratio] 29.44 kg/m2 Helio Barry Other [facility] Other 05-29-2023 14:00-0400 Body weight 85.28 kg Helio Barry Other [facility] Other 05-05-2023 08:30-0400 Body height 170.18 cm Seb Barry Other [facility] Other 05-05-2023 08:30-0400 Body mass index (BMI) [Ratio] 29.44 kg/m2 Seb Barry Other [facility] Other 05-05-2023 08:30-0400 Body weight 85.28 kg Seb Barry Other [facility] Other 05-05-2023 08:30-0400 Diastolic blood pressure 82 mm[Hg] Seb Barry Other [facility] Other 05-05-2023 08:30-0400 Systolic blood pressure 128 mm[Hg] Seb Barry Other [facility] Other 04-01-2023 10:00-0400 Body height 170.18 cm Seb Barry Other [facility] Other 04-01-2023 10:00-0400 Body mass index (BMI) [Ratio] 29.13 kg/m2 Seb Barry Other [facility] Other 04-01-2023 10:00-0400 Body weight 84.37 kg Seb Barry Other [facility] Other 04-01-2023 10:00-0400 Diastolic blood pressure 86 mm[Hg] Seb Barry Other [facility] Other 04-01-2023 10:00-0400 Systolic blood pressure 148 mm[Hg] Seb Barry Other [facility] Other Encounters Encounter Date Encounter Type Care Provider Facility Start: 07-12-2024 ambulatory PHYSICIAN NO FAMILY Fac ility:[facility] Start: 07-05-2024 End: 07-07-2024 Pre-admission assessment HAMILTON SIMISANDEEP-LAMARRA [facility] Start: 07-05-2024 End: 07-05-2024 ambulatory HAMILTON MAHARAJ-NICOLAANKRA Facility:[facility] Start: 07-05-2024 End: 07-05-2024 Patient encounter procedure HAMILTON SIMISANDEEP-AMANKRA [facility] Start: 06-24-2024 End: 06-24-2024 Admission to same day surgery center HAMILTON MALONE [facility] Start: 06-24-2024 End: 06-24-2024 ambulatory HAMILTON MALONE Facility[facility] Start: 06-21-2024 End: 06-21-2024 ambulatory NON STAFF [facility] Work Phone: Start: 06-21-2024 End: 06-21-2024 Patient encounter procedure Adamaris Hill ALARM ADJUSTER [facility] Work Phone: Start: 06-18-2024 End: 06-18-2024 ambulatory HAMILTON MALONE Facility[facility] Start: 06-18-2024 End: 06-18-2024 Patient encounter procedure HAMILTON MALONE [facility] Start: 06-14-2024 Registered Recurring Adamaris gomez ALARM ADJUSTER Work Phone: [facility] Start: 06-11-2024 End: 06-11-2024 ambulatory HAMILTON MALONE Facility: [place] Start: 06-11-2024 End: 06-11-2024 Patient encounter procedure HAMILTON MALONE [facility] Start: 06-04-2024 End: 06-04-2024 Departed Referred Adamaris Hill ALARM ADJUSTER Work Phone: [facility] [place] Work Phone: Start: 06-04-2024 End: 06-04-2024 ambulatory PHYSICIAN NO [facility] Work Phone: Start: 06-04-2024 End: 06-04-2024 Patient encounter procedure PHYSICIAN NO [facility] Work Phone: Start: 05-26-2024 Non-patient / Non-visit PHYSICIAN NO [facility] Work Phone: Start: 05-25-2024 End: 05-25-2024 ambulatory KARONMARIAELENA FLORES Facility:[facility] Start: 05-25-2024 End: 05-25-2024 Patient encounter procedure KARON FLORES [facility] Start: 05-19-2024 End: 05-19-2024 Departed Referred PHYSICIAN NO [facility] [place] Work Phone: Start: 05-19-2024 End: 05-19-2024 ambulatory PHYSICIAN NO [facility] Work Phone: Start: 05-19-2024 End: 05-19-2024 Patient encounter procedure PHYSICIAN NO [facility] Work Phone: Start: 05-04-2024 Non-patient / Non-visit PHYSICIAN NO [facility] Work Phone: Start: 05-04-2024 Registered Recurring PHYSICIAN NO [facility] Start: 04-21-2024 End: 04-27-2024 Clinisync Result Encounter Faiza BURTON Work Phone: [facility] External Department Unsolicited Start: 04-21-2024 End: 04-23-2024 External Result Encounter Faiza BURTON Work Phone: [facility] External Department Unsolicited Start: 04-21-2024 End: 04-27-2024 External Result Encounter Faiza BURTON Work Phone: [facility] External Department Unsolicited Start: 04-21-2024 Non-patient / Non-visit PHYSICIAN NO [facility] Work Phone: Start: 04-21-2024 End: 04-21-2024 ambulatory FAIZA ALMENDAREZ Not Available Start: 04-09-2024 Non-patient / Non-visit PHYSICIAN NO [facility] Work Phone: Start: 02-26-2024 End: 02-26-2024 ambulatory Beryl Henderson Facility:[facility] Start: 02-26-2024 End: 02-26-2024 Patient encounter procedure Beryl Henderson [facility] Start: 01-30-2024 End: 01-30-2024 ambulatory PHYSICIAN NO [facility] Work Phone: Start: 01-30-2024 End: 01-30-2024 Patient encounter procedure PHYSICIAN NO [facility] Work Phone: Start: 01-14-2024 End: 01-14-2024 ambulatory Dieter R NILL Facility:[facility] Start: 01-14-2024 End: 01-14-2024 Patient encounter procedure Dieter R NILL [facility] [place] Start: 01-13-2024 ambulatory Dieter R NILL Facility :[facility] Start: 12-31-2023 End: 12-31-2023 ambulatory PHYSICIAN NO [facility] Work Phone: Start: 12-31-2023 End: 12-31-2023 Departed Referred PHYSICIAN NO [facility] Start: 12-31-2023 End: 12-31-2023 ambulatory Dieter R NILL Facility:[id number] Start: 12-09-2023 Registered Recurring PHYSICIAN NO [facility] Start: 11-19-2023 End: 11-19-2023 ambulatory Dieter R NILL Facility:[facility] Start: 11-19-2023 End: 11-19-2023 Patient encounter procedure Dieter LOCO [facility] N[facility] Start: 11-18-2023 Non-patient / Non-visit PHYSICIAN NO [facility] [employer] Work Phone: Start: 11-17-2023 ambulatory Dieter LOCO Facility:[facility] Start: 11-14-2023 ambulatory Dieter BUSTOSL Facility:[facility] Start: 11-12-2023 End: 11-12-2023 ambulatory PHYSICIAN NO [facility] Work Phone: Start: 11-12-2023 End: 11-12-2023 Patient encounter procedure PHYSICIAN NO [facility] Work Phone: Start: 11-04-2023 Registered Recurring PHYSICIAN NO [facility] Start: 10-22-2023 Patient encounter status PHYSICIAN NO [facility] Start: 10-22-2023 End: 10-22-2023 Encounter for general adult medical examination without abnormal findings PHYSICIAN NO [facility] Start: 10-22-2023 End: 10-22-2023 Patient encounter procedure PHYSICIAN NO [facility] Work Phone: Start: 09-09-2023 Registered Recurring PHYSICIAN NO [facility] Start: 05-30-2023 End: 05-30-2023 ambulatory Helio Barry Other [facility] [place] Other Start: 05-30-2023 Telephone encounter Helio Barry [facility] Game [employer] Start: 05-29-2023 Office outpatient ne w 30 minutes Helio Barry [facility] Start: 05-29-2023 End: 05-29-2023 ambulatory MD Seb Barry Work Phone: [facility] Work Phone: Start: 05-29-2023 End: 05-29-2023 Patient encounter procedure MD Seb Barry Work Phone: [facility] [place] Work Phone: Start: 05-16-2023 End: 05-16-2023 ambulatory Seb Barry Other [facility] Other Start: 05-16-2023 Telephone encounter Seb Barry [facility] Start: 05-05-2023 End: 05-05-2023 ambulatory Seb Barry Other [facility] Other Start: 05-05-2023 Office outpatient vi sit 15 minutes Seb Barry [facility] Start: 04-07-2023 End: 04-07-2023 ambulatory Seb Barry Other [facility] Other Start: 04-07-2023 Telephone encounter Seb Barry [facility] Start: 04-01-2023 End: 04-01-2023 ambulatory Seb Barry Other [facility] Other Start: 04-01-2023 Office outpatient vi sit 15 minutes Seb Barry [facility] Start: 12-27-2022 ambulatory GOLDY GLOVER Facility: [facility] Start: 12-23-2022 End: 12-23-2022 ambulatory Goldy Glover Other [facility] Other Start: 12-23-2022 Office outpatient ne w 45 minutes Goldy Glover [facility] Start: 12-06-2022 Telephone encounter Seb Barry [facility] Start: 12-06-2022 End: 12-07-[address] SEB BARRY [facility] Other Start: 11-26-2022 End: 11-27-2022 ambulatory REGULO HINDS Facility:[facility] Start: 11-14-2022 End: 11-15-[address] SEB BARRY Facility:[facility] Start: 05-17-2022 Encounter for genera l adult medical examination without abnormal findings DR SEB BARRY [facility] Start: 05-15-2022 End: 05-16-[address] SEB BARRY Facility:[facility] Start: 05-15-2022 End: 05-16-2022 Encounter for general adult medical examination without abnormal findings DR SEB BARRY Facility:[facility] Start: 05-14-2022 Adult health examination Seb Barry Other [facility] Other Start: 04-18-2022 End: 04-18-2022 ambulatory Paresh Marily Other [facility] Other Start: 04-18-2022 Telephone encounter Paresh Marily [facility] Start: 02-27-2022 End: 02-27-2022 ambulatory Paresh Marily Other [facility] Other Start: 02-27-2022 Telephone encounter Paresh Marily [facility] [employer] Start: 02-05-2022 ambulatory PARESH MARILY Facility:[facility] Start: 12-13-2021 End: 12-13-2021 ambulatory Paresh Marily Other [facility] Other Start: 12-13-2021 Telephone encounter Paresh Marily [facility] Start: 09-19-2021 End: 09-19-2021 ambulatory Paresh Marily Other [facility] Other Start: 09-19-2021 Telephone encounter Paresh Marily [facility] Start: 09-05-2021 End: 09-05-2021 ambulatory Paresh Marily Other [facility] Other Start: 09-05-2021 Telephone encounter Paresh Marily [facility] Procedures Date Procedure Procedure Detail Performing Clinician Start: 06-24-2024 Cystoscopy HAMILTON HOPKINS-MARK Start: 06-04-2024 Urine culture Adamaris Gr ob ALARM ADJUSTER Work Phone: Start: 05-19-2024 Bacteria identified in Urine by Culture PHYSICIAN NO FAMILY Start: 05-19-2024 Urine culture Adamaris Gr ob ALARM ADJUSTER Work Phone: Start: 04-21-2024 IGP,APTIMA HPV,AGE GDLN [...] procedure 04/25/2025 9:00 AM EDT Office Visit [facility] [address] [place] [address] Faiza Almendarez PA [address] [place] [address] [facility] Start: 06-04-2024 Urine culture [facility] Start: 05-19-2024 Bacteria identified in Urine by Culture Urine Culture [facility] Start: 05-19-2024 Urine culture [facility] Start: 04-11-2024 Influenza vaccination Influenza Vacc ine (#1) [facility] Start: 11-12-2023 Patient referral [facility] Work Phone: Start: 09-02-2020 Screening for malign ant neoplasm of breast Mammogram [facility] Start: 1992 Screening for malign ant neoplasm of cervix [facility] Start: 1983 Screening for malign ant neoplasm of cervix Pap Smear [facility] Start: 1962 Screening for malign ant neoplasm of colon [facility] MG Breast - bilatera l Diagnostic [facility] Patient Education Yearly Physica l for Adults [facility] Work Phone: Patient referral [facility] Work Phone: Immunizations Immunization Date Immunization Notes Care Provider Ed bran 10-12-2022 influenza virus vaccine, unspecified formulation Dieter LOCO [facility] [place] 10-12-2022 influenza, injectabl e, quadrivalent, preservative free Seb Barry Other [facility] 02-19-2022 diphtheria, tetanus toxoids and acellular pertussis vaccine, unspecified formulation Seb Barry Other [facility] 02-19-2022 tetanus toxoid, reduced diphtheria toxoid, and acellular pertussis vaccine, adsorbed Seb Barry Other [facility] 08-07-2021 COVID-19 Vaccine Moderna - Documentation Purposes Only Seb Barry Other [facility] 05-28-2021 influenza virus vaccine, split virus (incl. purified surface antigen) Seb Barry Other [facility] Other 05-28-2021 influenza virus vaccine, unspecified formulation PHYSICIAN NO FAMILY [facility] 12-09-2020 COVID-19 Vaccine Moderna - Documentation Purposes Only Seb Barry Other [facility] 11-11-2020 COVID-19 Vaccine Moderna - Documentation Purposes Only Seb Barry Other [facility] Payers Date Payer Category Payer Managed Care HMO (unspecified) RAFA CRAIG [id number] 2021-Present [address] [place] [id number] HMO [id number] 1960 Unknown [id number] [id number] .593 1962 Unknown [id number] 2.16.840.1.577312.3.579.2 .593 1962 Unknown [id number] 2.16.840.1.089480.3.579.2 .593 1962 Unknown [id number] 2.16.840.1.713625.3.579.2 .593 1962 Unknown [id number] 2.16.840.1.895881.3.579.2 .593 1962 Unknown [id number] 2.16.840.1.619086.3.579.2 .593 1962 Unknown [id number] 2.16.840.1.759402.3.579.2 .1259 1962 Unknown [id number] 2.16.840.1.744025.3.579.2 .727 1962 Unknown [id number] 2.16.840.1.621178.3.579.2 .727 1962 Unknown [id number] 2.16.840.1.934026.3.579.2 .727 1962 Unknown [id number] 2.16.840.1.886044.3.579.2 .727 1962 Unknown [id number] 2.16.840.1.503895.3.579.2 .727 1962 Unknown [id number] 2.16.840.1.895735.3.579.2 .727 1962 Unknown [id number] 2.16.840.1.062835.3.579.2 .727 1962 Unknown [id number] 2.16.840.1.571099.3.579.2 .727 1962 Unknown [id number] 2.16.840.1.364677.3.579.2 .727 1962 Unknown [id number] 2.16.840.1.078635.3.579.2 .727 1962 Unknown [id number] 2.16.840.1.723845.3.579.2 .727 1959 Private Health Insurance [id number] 2.16.840.1.465746.19 1959 Private Health Insurance [id number] Self-pay [facility] [id number] 2.16.840.1.285661.19 Private Health Insurance [id number] Unknown [id number] 2.16.840.1.967969.3.579.2 .531 Unknown [id number] 2.16.840.1.025431.3.579.2 .531 Unknown [id number] 2.16.840.1.995381.3.579.2 .531 Social History Date Type Detail Facility Sex Assigned At [facility] Start: 1960 Sex Assigned At Female F [facility] Start: 05-29-2023 End: 07-05-2024 Tobacco smoking status NHIS Never smoked tobacco (finding) [facility] Tobacco smoking status Never [facility] [place] Start: 06-21-2024 Sex Female (finding) [facility] Tobacco smoking status NHIS Tobacco smoking consumption unknown [facility] Start: 1960 Sex assigned at Not on file N [facility] Functional Status Date Assessment Result Facility 07-05-2024 Functional Status N/A [facility] 06-18-2024 Functional Status No [facility] 06-11-2024 Functional Status N/A [facility] 05-25-2024 Functional Status N/A [facility] 11-19-2023 Functional Status N/A General [...] including vitamins, herbs, eye drops, creams, and zpnx-alw-supbuyb medicines. Any problems you or family members [...] provider tells you to take them. Taking tbzx-bai-tacrtgt medicines, vitamins, herbs, and supplements. Surgery safety [...] provider. Document Revised: 03/02/2021 Document Reviewed: 03/02/2021 [employer] Patient Education 2023 [employer]. Follow Up Care 06/24/2024 14:41:56 With:HAMILTON MALONE MD, URL Address: When: Unknown [facility] 07-05-2024 Note Patient Education Obstetrics and Gynecology [...] including vitamins, herbs, eye drops, creams, and tnui-lck-owxtjpa medicines. ??? Any problems you or family [...] tells you to take them. ??? Taking isdk-ran-sriqinx medicines, vitamins, herbs, and supplements. Surgery safety [...] your bladder w (more content not included)... [facility] 06-24-2024 Note Progress Note-Physic beni Patient: RAIN SWEENEY Age: 63 years Sex: Female : 1960 Associated Diagnoses: None Author: Valdo Aguilar MD Postoperative Information Postoperative disposition: Postoperative disposition: To PACU. Optimetrix number: Optimetrix number [id number]. Anesthetic utilized: General. Health Status Allergies: Allergic [...] when meets criteria ( To home ). [facility] Comment on above: Result Comment: Elec delilahally Signed By: Valdo Aguilar MD\.br\Date and Time Signed: 06/24/24 16:53 EST 06-24-2024 Evaluation + Plan note Extrac sheeba from: Title:ANES Post-operative Note---General Author: Valdo Aguilar MD Date:06/24/24 Plan Transfer/Discharge: Transfer/Discharge Discharge when meets criteria ( To home ). Extracted from: Title:ANES Pre-operative Note 2022 Author:Valdo Asencio Date:06/24/24 Plan [place] [employer] Anesthesiologists (ASA) physical status classification: Class III. Anesthetic Preoperative Plan: Anesthesia General, and TIVA. Future Appointments Appointment Date:07/05/2024 10:00:00 AM Scheduled Provider:HAMILTON MALONE MD Location:[facility] Appointment Type:URO Office Visit [facility] 11-14-2024 Hospital Discharge instructions Patient [...] Up Care 06/11/2024 10:28:58 With:HAMILTON MALONE Address: [address] [facility] [place] [address] [phone] Business (1) When: Unknown Comments:in 2 weeks [facility] [id number] NotePatient Education - Text Cystoscopy ??? Voiding [...] you have a fever over 100 degrees. [facility]11-14-2024 Note Progress Note-Physician Patient: RAIN SWEENEY Age: [...] day(s), # 9 tab(s), Refills(s) 0, Pharmacy: [facility]/pharmacy #[id number], 174, cm, 06/18/24 15:46:00 EST, Height/Length Dosing, [...] list: All Problems Acne / SNOMED CT 47807658 / Confirmed Anxiety / SNOMED CT 79715437 / Confirmed Atrophic vaginitis / SNOMED CT 05376863 / Confirmed Bladder neoplasm of uncertain malignant potential / SNOMED CT 1089980325 / Confirmed BMI 28.0-28.9,adult / SNOMED CT 2119384173 / Confirmed Chronic depression / SNOMED CT 048041167 / Confirmed Chronic pain / SNOMED CT 138344367 / Confirmed Cystocele with rectocele / SNOMED CT 089703444 / Confirmed Essential hypertension / SNOMED CT 20244016 / Confirmed Gastroesophageal reflux disease / SNOMED CT 630808349 / Confirmed Heart disease / SNOMED CT 37533808 / Confirmed Hypercholesterolemia / SNOMED CT 64465387 / Confirmed Lesion of right nipple / SNOMED CT 2217538484 / Confirmed Lumbar radiculopathy / SNOMED CT 600042841 / Confirmed Migraine / SNOMED CT 03855817 / Confirmed Myocardial infarction / SNOMED CT 85667282 / Confirmed Outside Source Comment: Comment on above: 2003 Overweight / SNOMED CT 166747136 / Confirmed Scoliosis of lumbosacral spine / SNOMED CT 387520118 / Confirmed Sleep apnea / SNOMED CT 191082119 / Confirmed Stress incontinence / SNOMED CT 872950058 / Confirmed Urethral caruncle / SNOMED CT 48772124 / Confirmed Resolved: Bipolar disorder / SNOMED CT 66370636 Canceled: Tobacco user / SNOMED CT 541085898, Active Problems (21) Acne Anxiety Atrophic vaginitis Bladder neoplasm of uncertain malignant potential BMI 28.0-28.9,adult Chronic depression Chronic pain Cystocele with rectocele Esse (more content not included)...[facility] Result Comment: Electronically Signed By: Jeff RAMIREZ, Valdo Haq\.br\Date and Time Signed: 06/24/24 08:32 [id number] Hospital Discharge instructions Patient Education 06/11/2024 10:04:23 [...] including vitamins, herbs, eye drops, creams, and hebl-nqm-fcyxlpx medicines. Any problems you or family members [...] provider tells you to take them. Taking jzfl-lxu-vaowlxp medicines, vitamins, herbs, and supplements. General instructions [...] provider. Document Revised: 03/02/2021 Document Reviewed: 03/02/2021 [employer] Patient Education 2023 [employer]. 06/11/2024 09:47:28 Kegel Exercises Kegel Exercises Kegel [...] provider. Document Revised: 12/06/2021 Document Reviewed: 12/06/2021 [employer] Patient Education 2023 [employer]. Follow Up Care 05/31/2024 11:14:44 With:GABBY RAMIREZ, HAMILTON, JATINDERL Address: When: Unknown [facility] 11-01-2024 NotePatient Education Obstetrics and Gynecology Kegel [...] provider. Document Revised: 12/06/2021 Document Reviewed: 12/06/2021 [employer] Patient Education ? 2023 [employer] Urology Injection Treatments for Urinary Incontinence [...] including vitamins, herbs, eye drops, creams, and zedo-ybx-mfaivkn medicines. ??? Any problems you or family [...] foods, such as toast or (more contentnot included)...[facility]10-18-2024 Note Patient Education Obstetrics and Gynecology Kegel [...] provider. Document Revised: 12/06/2021 Document Reviewed: 12/06/2021 [employer] Patient Education ? 2023 [employer] Urethral Vaginal Sling A urethral vaginal [...] including vitamins, herbs, eye drops, creams, and wtdn-jev-kiuwfws medicines. ? Any problems you or family [...] medicines or blood thinners. (more content not included)...[facility]10-15-2024 Hospital Discharge instructions Patient Education 05/25/2024 10:57:53 [...] including vitamins, herbs, eye drops, creams, and gebs-sui-unnrtgm medicines. Any problems you or family members [...] provider tells you to take them. Taking gptn-whf-uslelaa medicines, vitamins, herbs, and supplements. Surgery safety [...] provider. Document Revised: 03/02/2021 Document Reviewed: 03/02/2021 [employer] Patient Education 2023 [employer]. [facility] 10-09-2024 Evaluation note* Diagnosis Onset Date Resolution Status Admit Date UTI (urinary tract infection) acute May 19 10:09am Dysuria noneactive May 19 024 10:09am UTI (urinary tract infection) acute June 04 11:12am [facility] Work Phone: 1(569) 517-976604-10-2024 NoteChief Complaint consultation for abnormal breast US [...] 12/09/2020 Recorded SARS-CoV-2 (COVID-19) mRNA-1273 vaccine 11/11/2020 RecordedTri[facility] HospitalComment on above:Result Comment: Electronically Signed By: BERONICA RAMIREZ, Dieter Mcdaniels.marian\Date and Time Signed: 11/19/23 14:27 [id number] Evaluation note * Encounter Date Diagnosis Assessment [...] may be able to offer some advice. [facility] Other 09-25-2023 Evaluation note* Encounter Date Diagnosis Assessment Notes Treatment Notes Treatment Clinical Notes Apr, Right lumbar radiculopathy (ICD-10 - M54.16) Presently in PT - discharged on 05/02. Requests MRI and referral. [facility] Other 08-22-2023 Evaluation note* Encounter Date Diagnosis Assessment Notes Treatment Notes Treatment Clinical Notes Mar, Right hip pain (ICD-10 - M25.551) PT paper given to pt. Handout for home stretches given as well. Tramadol to help her sleep. She understands it is a controlled substance and could be sedating. [facility] Other 05-15-2023 Evaluation note* Encounter Date Diagnosis [...] Above note written by Morris Flor MA, General [employer]. Edited and approved by Dr. Goldy Glover [...] negative findings were considered in medical decision-making. [facility] Other 04-28-2023 Evaluation note* Encounter Date Diagnosis Assessment Notes Treatment Notes Treatment Clinical Notes Nov, Lumbar pain (ICD-10 - M54.50) [facility] Other 07-20-2022 Evaluation note* Encounter Date Diagnosis Assessment Notes Treatment Notes Treatment Clinical Notes Feb, Bipolar 1 disorder, depressed (ICD-10 - F31.9) [facility] Other 05-05-2022 Evaluation note* Encounter Date Diagnosis Assessment Notes Treatment Notes Treatment Clinical Notes December, Bipolar 1 disorder, depressed (ICD-10 - F31.9) [facility] Other Evaluation + Plan note No data available for this section General Surgery [facility] Evaluation + Plan note Future Appointments Appointment Date:06/18/2024 03:30:00 PM Scheduled Provider: Location:[facility] Appointment Type:Surgical PAT FT Appointment Date:06/24/2024 09:00:00 AM Scheduled Provider: Location:[facility] Appointment Type:Surgery FT [facility] Evaluation + Plan note Future Appointments Appointment Date:06/24/2024 09:00:00 AM Scheduled Provider: Location:[facility] Appointment Type:Surgery FT [facility] Evaluation + Plan note Future Appointments Appointment Date:07/06/2024 10:00:00 AM Scheduled Provider: Location:[facility] Appointment Type:Surgical PAT FT Appointment Date:07/22/2024 08:00:00 AM Scheduled Provider: Location:[facility] Appointment Type:Surgery FT [facility] Evaluation + Plan note Future Appointments Appointment Date:07/22/2024 08:00:00 AM Scheduled Provider: Location:[facility] Appointment Type:Surgery FT [facility] evaluation noteNo InformationNort [employer] Other evaluation noteNo assessment information available [facility] Work Phone: evaluation note* Diagnosis Onset Date Resolution Status Acne acute Breast mass, right acute Wellness examination acute Abnormal ultrasound of breast acute [facility] Work Phone: Evaluation note* Diagnosis Onset Date Resolution Status Abnormal ultrasound of breast acute [facility] Work Phone: evaluncmyh note* Diagnosis Onset Date Resolution Status UTI (urinary tract infection) acute Dysuria noneactive [facility] Work Phone: evaluation note* Diagnosis Onset Date Resolution Status UTI (urinary tract infection) acute Dysuria noneactive UTI (urinary tract infection) acute [facility] Work Phone: Hiszrph general Narrative - Reported* Type Description Date Medical History bipolar disorder Medical History anxiety disorder Medical History high blood pressure Surgical History 2 boul ligation 2000 Surgical History stepidectomy 2009 Surgical History sinus surgery 2015 Hospitalization History See surgical hx Hospitalization History [facility] [employer] Other Hisnmyd general Narrative - Reported* Type Description Date Medical History bipolar disorder Medical History anxiety disorder Medical History high blood pressure Medical History Fatigue Medical History High risk medication use Surgical History 2 boul ligation 2000 Surgical History stepidectomy 2009 Surgical History sinus surgery 2015 Surgical History LUBAL LIGATION Hospitalization History See surgical hx Hospitalization History [employer] Other Hissldw general Narrative - Reported* Type Description Date [...] Hospitalization History See surgical hx Hospitalization History [facility] [email or web address] Other Hospital Discharge instructionsAmbulatory Orders* Referral to General Surgery Time Frame: 11/12/23, Location: None Selected [facility] Work Phone: Hospital Discharge instructions No data available for this section General Surgery [place] Progress note No data available for this section General Surgery [place] Reason for Referral Reason piriformis pain Diagnosis 1 Adolescent idiopathi c scoliosis of lumbosacral spine (M41.127) Referral Organization [facility] urosurgery Referring Provider First Name Helio Referring Provider Last Name Asha Referring Provider Specialty Neurologica l Surgery Referred Organization [facility] Referred Provider Danny Solares Referred Address [address] [facility] [place] [facility],[address] Referred Provider Specialty Orthopaedic Surgery Referral Priority Routine Reason Requests Dr. Helio qureshi - MRI pending. Went to [place] ER and had xrays on 05/05. Diagnosis 1 Right lumbar radicul opathy (M54.16) Referral Organization [facility] [employer] lauren Referring Provider First Name Seb Referring Provider Last Name Asha Referring Provider Specialty Family Medi cine Referred Organization [facility] Referred Address [address], [place],[address] Referred Provider Specialty Neurological Surgery Referral Priority Routine Reason No preference on off ice - Lumbar pain - recent OV and xray - thanks Diagnosis 1 Lumbar pain (M54.50) Referral Organization [facility] [employer] lauren Referring Provider First Name Seb Referring [...] content) DATE CREATED AUTHOR 12/25/2022 [facility] DATE CREATED AUTHOR AUTHOR'S ORGANIZ ATION 04/23/2024 [facility] DATE CREATED AUTHOR AUTHOR'S ORGANIZ ATION 06/20/2024 Donis David [facility] DATE CREATED AUTHOR AUTHOR'S ORGANIZ ATION 07/04/2024 Donis David [facility] DATE CREATED AUTHOR AUTHOR'S ORGANIZ ATION 07/06/2024 Donis David [facility] DATE CREATED AUTHOR AUTHOR'S ORGANIZ ATION 07/13/2024 [facility] Care Teams (unrecognized sec tion [...] End: December 31, 2023 Dieter Loco MD [facility] Attending Provider Active Start: December 31, [...] June 21, 2024 End: June 21, 2024 [employer] Relationship Specialty Start Date End Date Seb Barry MD [address] [place] [id number] PCP - General Family Medicine 04/21/23 Goals [...] BE BASED ON THE PRIMARY CLINICAL RECORDS. [facility]. provides no warranty or guarantee of the accuracy or completeness of information in this document.
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
--- NOTE | 2024-07-24 18:43 | CT_ITS ---
The [address] [address] Patient Name: REMINGTON SWEENEY MRN: [id number] date: 1960 Sex: F Assigned Patient Location: ER Current Patient Location: Accession/Order Number: [id number] Exam Date: 07/24/2024 21:03 Report Date: 07/24/2024 23:50 At the request of: SAMIR LOUISE Procedure: CT abdomen pelvis wo con EXAM: CT abdomen pelvis wo con HISTORY: Marked abdominal swelling post urological procedure . Urethral sling placed yesterday. Abdominal pain with abdominal and vaginal distention today. COMPARISON: None. TECHNIQUE: Nonenhanced CT imaging of the abdomen and pelvis was performed with sagittal and coronal reconstructions. Dose reduction techniques were achieved by using automated exposure control and/or adjustment of mA and/or kV according to patient size and/or use of iterative reconstruction technique. FINDINGS: CT ABDOMEN: Capsular calcifications are seen in intact bilateral breast implants. Cardiac size is normal. There is no peripheral effusion. No acute lung base abnormality is seen. The exam is limited by the lack of IV contrast. Solid organ lesions or acute abnormalities could be missed. There is mild hepatic steatosis. The liver is otherwise unremarkable. The gallbladder, pancreas, spleen, adrenal glands and right kidney have a grossly unremarkable nonenhanced appearance. There is a 4.2 x 3.4 cm exophytic cyst off the anterior lower pole of the left kidney measuring 17 Hounsfield units on image 63. The left kidney is otherwise unremarkable. Moderate size hiatal hernia is noted. The stomach and small bowel are otherwise unremarkable. There are minimal aortic calcifications without aneurysm. The IVC appears normal. CT PELVIS: There is prominent edematous change and soft tissue swelling throughout the subcutaneous fat of the lower anterior abdominal wall centered around the suprapubic region where numerous bubbles of subcutaneous gas are present. This extends caudally into the mons and bilateral proximal anterior thighs, and tracks cranially into the bilateral lateral upper abdominal wall to the level of the diaphragm on the right. No loculated fluid collection is seen. There are several tiny bubbles of free air in the anterior lower pelvis anterior to the urinary bladder on images 110 through 114 with minimal gas in the anterior urinary bladder lumen related to the patient's recent urological procedure. Mild pelvic free fluid is present. No loculated fluid is seen. The appendix, colon, uterus and pelvic small bowel loops are unremarkable. The partially imaged vagina appears unremarkable. There is a moderate broad lumbar dextroscoliosis with multilevel spinal degenerative change. No acute osseous abnormality or suspicious bony lesion is seen. CT/CT abdomen pelvis wo con IMPRESSION: 1. Prominent edematous change and soft tissue swelling throughout the subcutaneous fat of the lower anterior abdominal wall, with multiple bubbles of subcutaneous gas in the suprapubic region and minimal underlying free air in the lower anterior pelvis related to yesterday's recent urologic procedure. No loculated fluid collection is seen. 2. Mild free fluid in the pelvic cul-de-sac is presumably postsurgical. 3. Moderate size hiatal hernia. 4. Mild hepatic steatosis. 5. Simple appearing 4.2 cm left renal cyst. Electronically authenticated by: MORTEZA VASQUEZ Date: 07/24/2024 23:50
[2024-07-24 18:51] LABS: Basophils Absolute Auto 0.1 10^3/uL (0.0-0.1); Basophils Percent Auto 0.7 % (0.2-2.0); Eosinophils Absolute Auto 0.1 10^3/uL (0.0-0.7); Eosinophils Percent Auto 0.8 % (0.9-7.0); Hematocrit 43.4 % (36.0-48.0); Hemoglobin 14.2 g/dL (12.0-16.0); Immature Granulocytes Abs Auto 0.26 10^3/uL (0.00-0.03); Immature Granulocytes Pct Auto 1.8 % (0.0-0.5); Lymphocytes Absolute Auto 1.6 10^3/uL (1.2-3.8); Lymphocytes Percent Auto 10.6 % (20.5-60.0); Mean Corpuscular HGB Conc 32.7 g/dL (29.9-35.2); Mean Corpuscular Hemoglobin 29.3 pg (26.7-34.0); Mean Corpuscular Volume 89.7 fL (81.0-99.0); Mean Platelet Volume 10.2 fL (9.5-13.5); Monocytes Absolute Auto 1.2 10^3/uL (0.3-0.8); Monocytes Percent Auto 8.2 % (1.7-12.0); Neutrophils Absolute Auto 11.3 10^3/uL (1.4-6.5); Neutrophils Percent Auto 77.9 % (43.0-75.0); Platelet Count 307 10^3/uL (150-450); Red Blood Count 4.84 10^6/uL (4.20-5.40); White Blood Count 14.6 10^3/uL (4.0-11.0)
[2024-07-24 19:00] LABS: Anion Gap 17.7; Calcium 8.8 mg/dL (8.5-10.1); Carbon Dioxide 21.6 mmol/L (21.0-32.0); Chloride 96 mmol/L (98-107); Estimated GFR (African America 14 (>=60 mL/min/1.73m^2); Estimated GFR (Non-African Ame 11 (>=60 mL/min/1.73m^2); Glucose 158 mg/dL (74-106); Potassium 4.3 mmol/L (3.5-5.1); Sodium 131 mmol/L (136-145)
[2024-07-24] MEDS: 0.9 % SODIUM CHLORIDE 1,000 ML 999 ML IV (19:00)
[2024-07-24] MEDS: HYDROMORPHONE HCL 1 MG/ML CARTRIDGE IVP (19:01)
[2024-07-24] MEDS: ONDANSETRON PF 4 MG/2 ML VIAL IV ×2 (19:01→20:42)
[2024-07-24 19:10] LABS: Lactate/Lactic Acid 2.2 mmol/L (0.4-2.0)
[2024-07-24] MEDS: SODIUM CHLORIDE 616 ML IV (20:40)
[2024-07-24] MEDS: FAMOTIDINE/PF 20 MG/2 ML VIAL IV (20:42)
[2024-07-24] MEDS: CIPROFLOXACIN IN 5 % DEXTROSE 400 MG/200 ML PREMIX 200 MG IV (20:42)
[2024-07-24] MEDS: HYDROMORPHONE HCL 1 MG/ML CARTRIDGE IV (21:23)
[2024-07-24 21:58] LABS: Bilirubin Urine NEGATIVE (NEGATIVE); Blood Urine LARGE (NEGATIVE); Clarity Urine CLEAR (CLEAR); Color Urine LT. YELLOW (YELLOW); Glucose Urine UA NEGATIVE (NEGATIVE); Ketones Urine NEGATIVE (NEGATIVE); Leukocyte Esterase Urine TRACE (NEGATIVE); Nitrite Urine NEGATIVE (NEGATIVE); Protein Urine NEGATIVE (NEG/TRACE); Urobilinogen Urine 0.2 EU/dL (0.2-1.0)
[2024-07-24 21:59] LABS: Urine Microscopic Indicated YES
[2024-07-24 22:08] LABS: RBC Urine 20-50 #/HPF (0-2)
[2024-07-24 22:09] LABS: Cast Seen? NONE SEEN #/LPF (NONE SEEN); Crystals Seen? None Seen #/HPF (None Seen); Mucus Urine NONE SEEN (NONE SEEN); Squamous Epithelial Cell Urine RARE #/LPF (NONE/RARE); Urine Culture Indicated NO
[2024-07-24 22:12] LABS: Bacteria Urine TRACE #/HPF (NONE SEEN); WBC Urine 0-2 #/HPF (NONE SEEN)
[2024-07-25 00:13] VITALS: BP 143/80; PULSE 112; O2SAT 97
[2024-07-25] MEDS: CLINDAMYCIN PHOSPHATE/D5W 600 MG/50 ML PREMIX 100 MG IV (00:41)
[2024-07-25 01:23] LABS: Lactate/Lactic Acid 1.1 mmol/L (0.4-2.0)
== END 2024-07-25 02:24 | disposition short-term general hospital (02) ==
PROVIDERS: Emergency Medicine; Emergency Provider Emergency Medicine Emergency Medical Services; PCP Family Medicine
DX: N17.9 Acute kidney failure, unspecified (principal); R10.9 Unspecified abdominal pain; Z98.51 Tubal ligation status; G89.18 Other acute postprocedural pain; Z98.890 Other specified postprocedural states; R33.9 Retention of urine, unspecified
CPT/HCPCS: 36415; 74176; 80048; 80053; 81001; 83605; 85025; 87040; 96365; 96366; 96367; 96375; 96376; 99284; J0744; J1171; J2405

== ENCOUNTER 2024-07-31 00:18 | Emergency (ER) | payer OTHER, SELFPAY ==
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
[2024-07-31 00:22] VITALS: BP 163/98; PULSE 98; TEMP 36.6; O2SAT 99; BMI 28.2
--- OUTSIDE RECORDS SUMMARY | 2024-07-31 00:25 | XMS_ITS | CCD ---
Author Organization [facility] Care Team Providers [facility] Clerk Name Role Phone Paresh Calixto Unavailable Seb Barry Unavailable Goldy Glover Unavailable ASHA, DR SEB Reyes Attending Unavailable BARRY, DR SEB Reyes Consulting Unavailable BARRY, DR SEB Reyes Admitting Unavailable BARRY, DR SEB Reyes Admitting Unavailable WEST, DR MAKEDA Schneider Consulting Unavailable BARRY, DR SEB Reyes Attending Unavailable BARRY, DR SEB Reyes Consulting Unavailable LEXIE, REGULO Admitting Unavailable LEXIE, REGULO Attending Unavailable REGULO HINDS Consulting Unavailable BRARY, DR SEB Reyes Admitting Unavailable WEST, DR MAKEDA Schneider Consulting Unavailable BARRY, DR SEB Reyes Attending Unavailable BARRY, DR SEB Reyes Primary Care Unavailable BARRY, DR SEB Reyes Consulting Unavailable GOLDY GLOVER Admitting Unavailable GOLDY GLOVER Attending Unavailable ASHA, DR SEB Reyes Primary Care Unavailable PARESH CALIXTO Attending Unavailable PARESH CALIXTO Admitting Unavailable MD Helio Barry Attending Provider [phone] MD Seb Barry Primary Care Provider Helio Barry Unavailable NO FAMILY, PHYSICIAN Primary Care Provider Unava MD Pan Gutierrez Attending Provider SEB BARRY Primary Care Physician NO FAMILY, PHYSICIAN Primary Care Provider Unava MD Pan Gutierrez Attending Provider [phone] MD Seb Barry Primary Care Provider [phone] MD Dieter Loco Attending Provider [phone] NO FAMILY, PHYSICIAN Primary Care Provider Unava MD Pan Gutierrez Attending Provider [phone] FAIZA ALMENDAREZ Attending Unavailable NO FAMILY, PHYSICIAN Primary Care Provider Unava ilable MD Pan Sanders Attending Provider LizKAUSHAL quintero Attending Provider [phone] NON STAFF Primary Care Provider UnavailDieter Olivarez [...] Care Provider UnavailSeb Martínez MD Attending Provider [phone] NO FAMILY, PHYSICIAN Primary Care Provider Unava [...] NON STAFF Primary Care Unavailable Adamaris Hill M Admitting Unavailable NO FAMILY, PHYSICIAN Primary Care Unavailable Pan Sanders Admitting Unavailab le Pan Sanders Attending Unavailab le Dieter Loco Attending Unavailable Seb Barry Primary Care Unavailable Dieter Loco Admitting Unavailable Seb Barry MD Care Provider NKANSAH-AMANKRA, HAMILTON Attending Unavail able NKANSAH-AMANKRA, HAMILTON Attending Unavail able NKANSAH-AMANKRAHAMILTON Referring Unavail able NKANSAH-AMANKRA HAMILTON Admitting Unavail able CROW, DO Ronobir R Admitting Unavailabl e CROW, DO Ronobir R Attending Unavailabl e CROW, DO Ronobir R Attending Unavailabl e Brandon Kulkarni Consulting Unavailable CROW, DO Ronobir R Admitting Unavailabl Brandon Walls Consulting Unavailable Brandon Kulkarni Consulting Unavailable NKSANDEEP-HAMILTON FLORES Attending Unavail able CROW, Ronobir R Admitting Unavailable CROW, Ronobir R Attending Unavailable Brandon Kulkarni Consulting Unavailable Brandon Kulkarni Consulting Unavailable Brandon Kulkarni Consulting Unavailable Allergies Allergy Classification Reported Allergen(s) Allergy Type Date of Onset Reaction(s) Facility (12 sources) Penicillins Drug allergy 4 [facility] (20 sources) metFORMIN; Translations: [metformin] Drug Allergy 4 [facility] (disorder) [facility] (8 sources) Substance with penicillin structure and antibacterial mechanism of action (substance) Drug allergy [facility] [employer] Other (17 sources) Penicillin; Translations: [penicillin] Drug Allergy We[facility] (disorder) [facility] [place] (1 source) metFORMIN Drug Allergy 4 [facility] (1 source) Penicillins Drug allergy (disorder) 4 [facility] (6 sources) Penicillins Drug Allergy 4 [facility] Healthcare Medications Current Medications Medication Drug Class(es) [...] Start: 10-22-2023 take 1 tablet by feliberto twice daily at mealtime Calcium Carbonate 500 mg calcium (1,250 mg) tablet Active 1 TAB PO Twice daily October 21, 2023 11:00pm [employer] tablet with meals Orally Twice a day; Note: Source Status: Taking; Provider: Asha Cadet ( ) take 1 tablet by feliberto every twelve hours Calcium 500 MG 1 tablet with meals Orally Twice a day Active ciprofloxacin 500 mg oral tablet (1 source) Quinolone Antimicrobial Start: 05-28-2024 take 1 tablet by mouth once daily Cipro 500 mg Tab See Instructions, 1 tab po day prior to cysto, 1 tab po following cysto, # 2 tab(s), Refills(s) 0, Pharmacy: [facility]/pharmacy #[id number], 170, cm, 05/25/24 10:38:00 EDT, Height/Length Dosing, 84, kg, 05/25/24 10:38:00 EDT, Weight Dosing Start Date: 05/28/24 Status: Ordered docusate sodium 100 mg oral capsule (3 sources) Start: 07-26-2024 take 1 capsule by mouth twice daily Colace 100 mg Cap 100 mg = 1 cap(s), Oral, BID, Refills(s) 0 Start Date: 07/26/24 Status: Ordered Start: 07-22-2024 take 1 capsule by mo [facility] twice daily as needed for constipation Colace 50 mg oral capsule 50 mg = 1 cap(s), Oral, BID, PRN for constipation, # 60 cap(s), Refills(s) 0, Pharmacy: [facility]/pharmacy #[id number], 174, cm, 07/06/24 9:03:00 EST, Height/Length Dosing, 81.8, kg, 07/06/24 9:03:00 EST, Weight Dosing Start Date: 07/22/24 Status: Ordered estradiol 0.1 mg/ml vaginal cream (9 sources) Estrogen Start: 04-21-2024 End: 05-21-2024 estradiol (Estrace) 0.1 MG/G M vaginal cream Indications: Hormone imbalance Insert 2 g into the vagina Daily Apply 1/2 APPLICATOR daily for 2 weeks 45 g 3 04/21/2024 05/21/2024 Active Start: 02-11-2024 Estradiol (Est race) 0.01 % (0.1 mg/gram) cream Active 1 GM VAGINAL Twice a Week 42.5 February 10, 2024 11:00pm Folate (2 sources) Folate Active lithium carbonate 300 mg oral tablet (20 sources) Start: 11-17-2023 take 1 tablet by mouth at bedtime lithium 300 mg oral tablet 300 mg = 1 tab(s), Oral, Bedtime, Refills(s) 0 Start Date: 11/17/23 Status: Ordered Start: 11-17-2023 take 3 tablets by [facility] at bedtime lithium 300 mg oral tablet 900 mg = 3 tab(s), Oral, Bedtime, Refills(s) 0 Start Date: 11/17/23 Status: Ordered Start: 10-22-2023 lithium ER (Li thobid) 300 MG 12 hr tablet Take 900 mg by mouth Daily 10/22/2023 Active Start: 10-22-2023 End: 10-22-2023 lithium ER (Lithobid) 300 MG 12 hr tablet Three times daily 10/22/2023 Active take 3 tablets by [facility] at bedtime [place] Carbonate ER 300 MG 3 tablets Orally at HS for 90 days 900-1200 mg as needed Active take 4 tablets by [facility] every twenty-four hours [place] Carbonate ER 300 MG 4 tablets Orally Once a day for 90 days 900-1200 mg as needed Active LORazepam 0.5 mg oral tablet (7 sources) Benzodiazepine Start: 12-13-2021 take 1 tablet by mouth every twenty-four hours Ativan 0.5 MG 1 tablet at bedtime as needed Orally Once a day for 10 days f41.1 December, Active take 1 tablet by [facility] every twenty-four hours Ativan 0.5 MG 1 tablet at bedtime as needed Orally Once a day for 4 days f41.1 Active metFORMIN hydrochloride 500 mg oral tablet (5 sources) Biguanide Start: 04-21-2024 End: 04-21-2025 take 1 tablet by mouth at mealtime metFORMIN (Glucophage) 500 MG tablet Indications: Hormone imbalance Take 1 tablet (500 mg) by mouth in the morning. Take with meals. 30 tablet 04/21/2024 04/21/2025 Active omeprazole 20 mg delayed [...] or chew.. Active Omeprazole OTC A ctive oxyCODONE hydrochloride 5 mg oral tablet (2 sources) Opioid Agonist Start: 07-22-2024 take 1 tablet by mouth every six hours as needed for pain Roxicodone 5 mg Tab 5 mg = 1 tab(s), Oral, q6hr, PRN for pain, # 5 tab(s), Refills(s) 0, Pharmacy: [facility]/pharmacy #[id number], 174, cm, 07/06/24 9:03:00 EST, Height/Length Dosing, 81.8, kg, 07/06/24 9:03:00 EST, Weight Dosing Start Date: 07/22/24 Status: Ordered phenazopyridine hydrochloride 100 mg oral tablet (1 source) Start: 06-24-2024 End: 06-27-2024 take 1 tablet by mouth three times daily Pyridium 100 mg Tab 100 mg = 1 tab(s), Oral, TID, X 3 day(s), # 9 tab(s), Refills(s) 0, Pharmacy: [facility]/pharmacy #[id number], 174, cm, 06/18/24 15:46:00 EST, Height/Length Dosing, 81.8, kg, 06/18/24 15:46:00 EST, Weight Dosing Start Date: 06/24/24 Stop Date: 06/27/24 Status: Ordered propranolol hydrochloride 10 mg oral tablet (7 sources) beta-Adrenergic Marissa take 1 tablet by mouth every twelve hours Propranolol HCl 10 MG 1 tablet Orally Twice a day for 90 days Active RA Vitamin D-3 50 MCG (1999) (13 sources) take 1 capsule by mouth once daily RA Vitamin D-3 50 MCG (1999) take 1 capsule by mouth once daily for 90 Active sulfamethoxazole 800 mg / trimethoprim 160 mg oral tablet (8 sources) Dihydrofolate Reductase Inhibitor Antibacterial, Sulfonamide Antimicrobial Start: 07-22-2024 End: 07-27-2024 Bactrim D.S. 800 mg-160 mg Tab 1 tab(s), Oral, BID for 5 day(s), 10 tab(s), Refill(s) 0, [facility]/pharmacy #[id number], 174, cm, 07/06/24 9:03:00 EST, Height/Length Dosing, 81.8, kg, 07/06/24 9:03:00 EST, Weight Dosing Start Date: 07/22/24 Stop Date: 07/27/24 Status: Ordered Start: 05-19-2024 End: 06-04-2024 take 1 tablet by mouth twice daily Sulfamethoxazole-Trimethoprim (Bactrim D s) 800-160 mg tablet Discontinued 1 TAB PO Twice daily 14 May 18, 2024 11:00pm June 04, 2024 11:24am Start: 11-26-2022 take 1 tablet by feliberto th every twelve hours Bactrim DS 800-160 MG 1 tablet Orally Tw ice a day for 10 day(s) Nov, Active tretinoin 1 mg/ml topical cream (20 sources) Retinoid Start: 11-17-2023 tretinoin Top 0.1% Crm 1 susan, Topical, Once a day (at bedtime), Refill(s) 0 Start Date: 11/17/23 Status: Ordered Start: 10-22-2023 End: 04-21-2024 tretinoin (Retin-A) 0.1 % cr eam 6 TIMES PER WEEK 10/22/2023 04/21/2024 Discontinued 24 hr venlafaxine 225 mg extended release oral tablet (20 sources) Serotonin and Norepinephrine Reuptake Inhibitor Start: 11-17-2023 venlafaxine as directed, Refills(s) 0 Start Date: 11/17/23 Status: Ordered Start: 10-22-2023 venlafaxine XR (Effexor XR) 225 MG 24 hr tablet 1 tablet 10/22/2023 Active Start: 10-22-2023 take 225 mg by mouth once maria isabel y venlafaxine 225 mg, Oral, Daily, as directed, Refills(s) 0, Anxiety Start Date: 11/17/23 Status: Ordered take 1 tablet by feliberto th every [...] 3 times a day prn Active Iron Fum,Dz-Sahry-Blwrb,C No.9 (Iron Folate Plus) 125 mg iron- 1 mg capsule (7 sources) Start: 10-22-2023 End: 10-22-2023 take 1 capsule by mouth once daily at mealtime Iron Fum,Pt-Prpld-Tyrxr,C No.9 (Iron Folate Plus) 125 mg iron- 1 mg capsule Discontinued 1 CAP PO Daily October 21, 2023 11:00pm October 22, 2023 8:33am administer between meals Start: 10-22-2023 End: 10-22-2023 take 1 capsule by mouth once daily at mealtime Iron Fum,Sc-Rnzks-Iahgy,C No.9 (Iron Folate Plus) 125 mg iron- [...] 2024 10:50am must administer with a meal/food OXcarbazepine 300 mg oral tablet (20 sources) Anti-epileptic Agent Start: 11-17-2023 take 2 tablets by mouth twice daily oxcarbazepine 300 mg Tab 300 mg = 1 tab(s), Oral, BID, Take one tablet in morning and Two tablets at night, Refills(s) 0 Start Date: 11/17/23 Status: Ordered Start: 11-17-2023 take 1 tablet by feliberto th once daily oxcarbazepine 300 mg Tab 300 [...] in the am for 90 days Active traMADol hydrochloride 50 mg oral tablet [...] Problem Classification Problem Date Documented Date Episodic/Chronic Abdominal pain (1 source) Abdominal pain; Translations: [Unspecified abdominal pain] Onset: 07-25-20 Episodic Acute and unspecified renal failure (1 source) Acute renal failure syndrome; Translations: [Acute kidney failure, unspecified] Onset: 07-25-20 Episodic Acute myocardial infarction (9 sources) Myocardial infarction 05-24-2024 Chronic Comment on above: Outside Source Comme nt: Comment on above: 2003 Anxiety disorders (12 sources) Anxiety 11-17-2023 Chronic Disorders of lipid metabolism (12 sources) Hypercholesterolemia 11-17-2023 Chronic Esophageal disorders (10 sources) Gastroesophageal reflux disease; Translations: [Gastroesophageal reflux disease without esophagitis] Onset: 07-25-2005-24-2024 Chronic Essential hypertension (15 sources) Essential (primary) hypertension; Translations: [Essential hypertension] Onset: 05-17-2011-17-2023 Chronic Genitourinary symptoms and ill-defined conditions (15 sources) Urinary incontinence; Translations: [Unspecified urinary incontinence] Onset: 05-25-2002-11-2024 Chronic Genitourinary symptoms and ill-defined conditions (6 sources) Dysuria; Translations: [Dysuria] Onset: 05-19-2005-19-2024 Episodic Headache; including migraine (9 sources) Migraine 05-24-2024 Chronic Malaise and fatigue (11 sources) Fatigue; Translations: [Other fatigue] Onset: 05-17-20 Episodic Menopausal disorders (12 sources) Menopausal and postmenopausal disorders; Translations: [Unspecified menopausal and perimenopausal disorder] Onset: 06-11-20 Chronic Mood disorders (20 sources) Bipolar disorder; Translations: [Bipolar disorder, unspecified] Onset: 12-14-19 Resolved : 11-17-19 Chronic Neoplasms of unspecified nature or uncertain behavior (10 sources) Neoplasm of uncertain behavior of bladder; 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] Onset: 06-11-20 Episodic Nonmalignant breast conditions (20 sources) Breast lump; Translations: [Unspecified lump in the right breast, unspecified quadrant] Onset: 11-19-19 24 10-22-2023 Episodic Other acquired deformities (12 sources) Scoliosis deformity of spine 11-17-2023 Chronic Other aftercare (8 sources) H/O: high risk medication; Translations: [Other marketing research intern (current) drug therapy] Episodic Other aftercare (5 sources) Other half-way (current) drug therapy; Translations: [OTH LONG-TERM CURRENT DRUG THERAPY] Onset: 05-17-20 Episodic Other aftercare (3 sources) Long-term current use of drug therapy; Translations: [Other marketing research intern (current) drug therapy] Onset: 07-25-20 Episodic Other and ill-defined heart disease (12 sources) Heart disease 11-17-2023 Chronic Other bone [...] Episodic Other diseases of bladder and urethra (10 sources) Urethral caruncle; Translations: [Urethral caruncle] Onset: 06-11-20 Episodic Other female genital disorders (4 sources) Vaginal dryness; Translations: [Other specified noninflammatory disorders of vagina] 02-11-2024 Episodic Other gastrointestinal disorders (1 source) Constipation, unspecified; Translations: [Constipation, unspecified] Onset: 07-26-20 Episodic Other nervous system disorders (7 sources) Chronic pain; Translations: [Other chronic pain] Chronic Other nervous system disorders (1 source) Other chronic pain Chronic Other non-traumatic joint disorders (1 source) Pain in right hip Episodic Other nutritional; endocrine; and metabolic disorders (1 source) Obesity; Translations: [Obesity, unspecified] Onset: 07-26-20 Chronic Other nutritional; endocrine; and metabolic disorders (2 sources) Body mass index 25-29 - overweight; Translations: [Body mass index (BMI) 29.0-29.9, adult] Episodic Other nutritional; endocrine; and metabolic disorders (12 sources) Overweight 11-17-2023 Episodic Other nutritional; endocrine; and metabolic disorders (12 sources) Overweight in adulthood with body mass index of 25 or more but less than 30 11-19-2023 Episodic Other screening for suspected conditions (not mental disorders or infectious disease) (16 sources) Encounter for screening mammogram for malignant neoplasm of breast; Translations: [Ultrasonography of breast abnormal] Onset: 11-15-19 Episodic Other skin disorders (19 sources) Acne; Translations: [Acne, unspecified] 10-22-2023 Episodic Other skin disorders (2 sources) Acne, unspecified; Translations: [Other acne] 10-22-2023 Episodic Otitis media and related conditions (2 sources) Non-suppurative otitis media; Translations: [Unspecified nonsuppurative otitis media, left ear] Episodic Prolapse of female genital organs (12 sources) Cystocele; Translations: [Cystocele, unspecified] Onset: 06-11-20 Chronic Residual codes; unclassified (9 sources) Sleep apnea 05-24-2024 Chronic Residual codes; unclassified (1 source) Family history of malignant neoplasm of breast; Translations: [FAMILY HX MALIG NEOPLASM OF BREAST] Onset: 11-24-19 Episodic Residual codes; unclassified (1 source) Family history of malignant neoplasm of digestive organs; Translations: [FAM HX MALIG NEOPLASM DIGESTIV ORGN] Onset: 11-24-19 Episodic Residual codes; unclassified (2 sources) Tobacco user; Translations: [Tobacco use] Episodic Residual codes; unclassified (12 sources) Chronic pain 11-17-2023 Episodic Septicemia (except in labor) (3 sources) Sepsis, unspecified organism; Translations: [A41.9] Onset: 07-25-20 Episodic Spondylosis; intervertebral disc disorders; other back problems (8 sources) Solitary sacroiliitis; Translations: [Sacroiliitis, not elsewhere classified] Chronic Unclassified (3 sources) LOW BACK PAIN, UNSPECIFIED; Translations: [LOW BACK PAIN, UNSPECIFIED] Onset: 12-13-19 Urinary tract infections (11 sources) Urinary tract infectious disease; Translations: [Urinary tract infection, site not specified] Onset: 06-04-2005-19-2024 Episodic Past or Other Problems Problem Classification Problem Date Documented Date Episodic/Chronic Immunizations and screening for infectious disease (4 sources) Exposure to sexually transmissible disorder; Translations: [Contact with and (suspected) exposure to infections with a predominantly sexual mode of transmission] 04-21-2024 Episodic Other endocrine disorders (2 sources) Disorder of endocrine system; Translations: [Endocrine disorder, unspecified] 04-21-2024 Episodic Other female genital disorders (2 sources) Vaginal discharge; Translations: [Other specified noninflammatory disorders of vagina] 04-21-2024 Episodic Other non-traumatic joint disorders (5 sources) Pain in right hip joint; Translations: [Pain in right hip] Onset: 04-22-2023 04-22-2023 Episodic Other non-traumatic joint disorders (1 source) Hip pain; Translations: [Pain in right hip] Onset: 04-22-2023 04-22-2023 Episodic Residual codes; unclassified (2 sources) Postmenopausal state; Translations: [Asymptomatic menopausal state] 04-21-2024 Episodic Spondylosis; intervertebral disc disorders; other back problems (16 sources) Radiculopathy, lumbar region; Translations: [Lumbar radiculopathy] Onset: 04-22-2023 Episodic Unclassified (1 source) Lumbar pain M54.50 Unclassified (1 source) Other low back pain M54.59 Unclassified (1 source) LOW BACK PAIN, UNSPECIFIED; Translations: [LOW BACK PAIN, UNSPECIFIED] Onset: 12-06-2022 Results Test Name Value Interpretation Reference Range Facility Inpatient Patient Summaryon 07-27-2024 Inpatient Patient Summary Inpatient Patient Summary RAIN SWEENEY :1960 Visit Date:07/25/2024 Inpatient Discharge Instructions Your Care Team Admitting Physician - Aditya MARIA DO Consulting Physician - Brandon Kulkarni MD Reason for Your Visit SEPSIS, CELLULITIS Your Diagnosis Abdominal pain Acute kidney injury Acute urinary retention Constipation Sepsis Obese Cystocele with rectocele Gastroesophageal reflux disease Bipolar illness On deep vein thrombosis (DVT) prophylaxis Rectocele This Is Your Medications List docusate (Colace 100 mg Cap) lithium (lithium 300 mg oral tablet) omeprazole (omeprazole 20 mg Cap-DR) oxcarbazepine (oxcarbazepine 300 mg Tab) tretinoin topical (tretinoin Top 0.1% Crm) venlafaxine [Image Removed: STOP]Stop taking these medications oxycodone (Roxicodone 5 mg Tab) sulfamethoxazole-tri methoprim (Bactrim D.S. 800 mg-160 mg Tab) Procedure History Cystoscopy (07/22/2024), Cystoscopy (06/24/2024), History of augmentation of breast, History of bilateral breast implants, History of nasal sinus surgery, Stapedectomy, Tubal ligation. Discharge Vitals Temperature (Oral) 36.5 ???C Heart Rate (Monitored) 83 Respiratory Rate 16 Blood Pressure 153/83 Height 170.18 cm Weight 89.2 kg What to do next Instructions From Your Doctor Event Name Event Result Discharge Activity Ambulate as tolerated, Activity as tolerated Discharge Diet(s) Regular Pending Diagnostic Test Results None New Follow Up Appointments after Discharge Follow Up with HAMILTON MALONE When: Within 5 to 7 days Comments: Call for followup appointment Where: [address] [place] [phone] Business (1) Follow Up with SEB BARRY When: Within 5 to 7 days Comments: Call for followup appointment Where: [address] [place] [phone] Business (1) Medications What How Much When Instructions Next Dose Changed docusate (Colace 100 mg Cap) 1 Capsules By Mouth 2 times a day 12/ am, pm Unchanged lithium (lithium 300 mg oral tablet) 1 Tablets By Mouth At bedtime 07/27 pm Unchanged omeprazole (omeprazole 20 mg Cap-DR) 1 Capsules By Mouth Every day 07/27 Unchanged oxcarbazepine (oxcarbazepine 300 mg Tab) 1 Tablets By Mouth 2 times a day Take one tablet in morning and Two tablets at night 12 am, pm Unchanged tretinoin topical (tretinoin Top 0.1% Crm) 1 Application Topical Once a day (at bedtime) 07/27 pm Unchanged venlafaxine 225 Milligram By Mouth Every day as directed 07/27 What How Much When Comments Stop Taking oxycodone (Roxicodone 5 mg Tab) 1 Tablets By Mouth Every 6 hours as needed for for pain Stop Taking sulfamethoxazole-tri methoprim (Bactrim D.S. 800 mg-160 mg Tab) 1 Tablets By Mouth 2 times a day Duration: 5 Days Test Results CBC BMP WBC: 7.9 E9/L (07/26/24 06:03:00) Glucose Lvl: 96 mg/dL (07/26/24 06:03:00) RBC: 3.6 E12/L Low (07/26/24 06:03:00) BUN: 12 mg/dL (07/26/24 06:03:00) HGB: 10.8 gm/dL Low (07/26/24 06:03:00) Creatinine: 0.9 mg/dL (07/26/24 06:03:00) Hct: 32.4 % Low (07/26/24 06:03:00) BUN/Creat Ratio: 13 (07/26/24 06:03:00) MCV: 90.4 fL (07/26/24 06:03:00) Sodium Lvl: 141 mmol/L (07/26/24 06:03:00) MCH: 30.2 pg (07/26/24 06:03:00) Potassium Lvl: 4.5 mmol/L (07/26/24 06:03:00) MCHC: 33.4 gm/dL (07/26/24 06:03:00) Chloride: 113 mmol/L High (07/26/24 06:03:00) RDW: 15.7 % High (07/26/24 06:03:00) CO2: 25 mmol/L (07/26/24 06:03:00) Platelet: 224 E9/L (07/26/24 06:03:00) AGAP: 8 mEq/L (07/26/24 06:03:00) MPV: 8.1 fL (07/26/24 06:03:00) Calcium Lvl: 8.4 mg/dL Low (07/26/24 06:03:00) Allergies penicillin (Hives) Problems Ongoing - Any problem that you are currently receiving treatment for. Acne Anxiety Atrophic vaginitis Bipolar illness Bladder neoplasm of uncertain malignant potential BMI 28.0-28.9,adult Chronic depression Chronic pain Cystocele with rectocele Essential hypertension Gastroesophageal reflux disease Heart disease Hypercholesterolemia Lesion of right nipple Lumbar radiculopathy Migraine Myocardial infarction Overweight Scoliosis of lumbosacral spine Sleep apnea Stress incontinence Urethral caruncle Historical - Any problem that you are no longer receiving treatment for. Bipolar disorder Education Materials Sepsis, Diagnosis, Adult Sepsis is a serious bodily reaction to an infection. The infection that triggers sepsis may be from a bacteria, virus, or fungus. Sepsis can result from an infection in any part of your body. Infections that commonly lead to sepsis include skin, lung, and urinary tract infections. Sepsis is a medical emergency that must be treated right away in a hospital. In severe cases, it can lead to septic shock. Septic shock can weaken your heart and cause your blood pressure to drop. This can cause your central nervous system and you (more content not included)... Normal [facility] BMPon 07-26-2024 Anion gap [Moles/Vol] 8 mmol/L Normal 6-16 [facility] Comment on above: Performed By: #### [id number] #### [facility] [address] [place] [address] Calcium [Mass/Vol] 8.4 mg/dL Low 8.9-11.1 [facility] Comment on above: Performed By: #### [id number] #### [facility] [address] [place] [address] Chloride [Moles/Vol] 113 mmol/L High 101-111 [facility] Comment on above: Performed By: #### [id number] #### [facility] [facility] [address] [place] [address] CO2 [Moles/Vol] 25 mmol/L Normal 21-[address] [facility] Comment on above: Performed By: #### 2 [id number] #### [facility] [address] [place] [address] Creatinine [Mass/Vol] 0.9 mg/dL Normal 0.5-1.3 [facility] Comment on above: Performed By: #### 2 [id number] #### [facility] [address] [place] [address] Glucose [Mass/Vol] 96 mg/dL Normal 55-199 [facility] Comment on above: Performed By: #### 2 [id number] #### [facility] [address] [place] [address] Potassium [Moles/Vol] 4.5 mmol/L Normal 3.5-5.3 [facility] Comment on above: Performed By: #### 2 [id number] #### [facility] [address] [place] [address] Sodium [Moles/Vol] 141 mmol/L Normal 135-145 [facility] Comment on above: Performed By: #### 2 [id number] #### [facility] [address] [place] [address] Urea nitrogen [Mass/Vol] 12 mg/dL Normal 5-21 [facility] Comment on above: Performed By: #### 2 [id number] #### [facility] [address] [place] [address] Urea nitrogen/Creatinine [Mass ratio] 13 No Units Normal 10-20 [facility] Comment on above: Performed By: #### 2 [id number] #### [facility] [address] [place] [address] CBC w/ Auto Diffon 4 Basophils/100 WBC (Bld) 0.8 % Normal 0.0-2.0 [facility] Comment on above: Performed By: #### 2 [id number] #### [facility] [address] [place] [address] Basophils/Leukocytes Auto (Bld) [Pure # fraction] 0.1 E9/L Normal 0.0-0.2 [facility] Comment on above: Performed By: #### 2 [id number] #### [facility] [address] [place] [address] Eosinophils (Bld) [#/Vol] 0.3 E9/L Normal 0.0-0.5 [facility] Comment on above: Performed By: #### 2 [id number] #### [facility] [address] [place] [address] Eosinophils/100 WBC (Bld) 4.4 % Normal 0.0-8.0 [facility] Comment on above: Performed By: #### 2 [id number] #### [facility] [address] [place] [address] Erythrocyte distribution width (RBC) [Ratio] 15.7 % High 10.9-14.2 [facility] Comment on above: Performed By: #### 2 [id number] #### [facility] [address] [place] [address] Hematocrit (Bld) [Volume fraction] 32.4 % Low 34.0-46.0 [facility] Comment on above: Performed By: #### 2 [id number] #### [facility] [address] [place] [address] Hemoglobin (Bld) [Mass/Vol] 10.8 g/dL Low 12.0-16.0 [facility] Comment on above: Performed By: #### 2 [id number] #### [facility] [address] [place] [address] Lymphocytes (Bld) [#/Vol] 2.6 E9/L Normal 1.0-4.0 [facility] Comment on above: Performed By: #### 2 [id number] #### [facility] [address] [place] [address] Lymphocytes/100 WBC (Bld) 32.8 % Normal 14.0-50.0 [facility] Comment on above: Performed By: #### 2 [id number] #### [facility] [address] [place] [address] MCH (RBC) [Entitic mass] 30.2 pg Normal 27.0-34.0 [facility] Comment on above: Performed By: #### 2 [id number] #### [facility] [address] [place] [address] MCHC (RBC) [Mass/Vol] 33.4 g/dL Normal 31.4-36.0 [facility] Comment on above: Performed By: #### 2 [id number] #### [facility] [address] [place] [address] MCV (RBC) [Entitic vol] 90.4 fL Normal 80.0-100.0 F [facility] Comment on above: Performed By: #### 2 [id number] #### [facility] [address] [place] [address] Monocytes (Bld) [#/Vol] 0.8 E9/L Normal 0.2-1.0 [facility] Comment on above: Performed By: #### 2 [id number] #### [facility] [address] [place] [address] Neutrophils (Bld) [#/Vol] 4.1 E9/L Normal 2.0-7.5 [facility] Comment on above: Performed By: #### 2 [id number] #### [facility] [address] [place] [address] Neutrophils/100 WBC (Bld) 52.1 % Normal 36.0-75.0 [facility] Comment on above: Performed By: #### 2 [id number] #### [facility] [address] [place] [address] Platelet 224.0 E9/L Normal 150.0-500.0 [facility] Comment on above: Performed By: #### 2 [id number] #### [facility] [address] [place] [address] Platelet mean volume (Bld) [Entitic vol] 8.1 fL Normal 6.4-10.8 [facility] Comment on above: Performed By: #### 2 [id number] #### [facility] [address] [place] [address] RBC (Bld) [#/Vol] 3.6 E12/L Low 4.3-5.9 [facility] Comment on above: Performed By: #### 2 [id number] #### [facility] [address] [place] [address] WBC corrected for nucl RBC Auto (Bld) [#/Vol] 7.9 E9/L Normal 4.0-11.[address] [facility] Comment on above: Performed By: #### 2 [id number] #### [facility] [address] [place] [address] CHEMISTRYOrdered By: SYSTEM SYSTEM on 07-26-2024 Anion gap [Moles/Vol] 8 mmol/L Normal 6 - 16 mEq/L R emisol Chem Calcium [Mass/Vol] 8.4 mg/dL Low 8.9 - 11. 1 mg/dL Remisol Chem Chloride [Moles/Vol] 113 mmol/L High 101 - 1 11 mmol/L Rem[facility] Chem CO2 [Moles/Vol] 25 mmol/L Normal 21 - 31 mmol/L Rem[facility] Chem Creatinine [Mass/Vol] 0.9 mg/dL Normal 0.5 - 1.3 mg/dL Remisol Chem eGFR 72 mL/min/1.73 m2 Normal >=59mL/min /1 .73 m2 Rem[facility] Chem Glucose [Mass/Vol] 96 mg/dL Normal 55 - 199 mg/dL Rem[facility] Chem Potassium [Moles/Vol] 4.5 mmol/L Normal 3.5 - 5.3 mmol/L [facility] Sodium [Moles/Vol] 141 mmol/L Normal 135 - 145 mmol/L Rem[facility] Chem Urea nitrogen [Mass/Vol] 12 mg/dL Normal 5 - 21 mg/d L Rem[facility] Chem Urea nitrogen/Creatinine [Mass ratio] 13 mg/mg Normal 10 - 20 Rem[facility] Chem HEMATOLOGYOrdered By: SYSTEM SYSTEM on 07-26-2024 Basophils/100 WBC (Bld) 0.8 % Normal 0.0 - 2.0 % Remisol Heme Basophils/Leukocytes Auto (Bld) [Pure # fraction] 0.1 E9/L Normal 0.0 - 0.2 E9/L [facility]e Eosinophils (Bld) [#/Vol] 0.3 E9/L Normal 0.0 - 0.5 E9/L [facility]e Eosinophils/100 WBC (Bld) 4.4 % Normal 0.0 - 8.0 % [facility]e Erythrocyte distribution width (RBC) [Ratio] 15.7 % High 10.9 - 14.2 % [facility] Hematocrit (Bld) [Volume fraction] 32.4 % Low 34.0 - 46.0 % [facility] Hemoglobin (Bld) [Mass/Vol] 10.8 g/dL Low 12.0 - 16.0 gm/dL [facility] Lymphocytes (Bld) [#/Vol] 2.6 E9/L Normal 1.0 - 4.0 E9/L [facility] Lymphocytes/100 WBC (Bld) 32.8 % Normal 14.0 - 50.0 % [facility] MCH (RBC) [Entitic mass] 30.2 pg Normal 27. 0 - 34.0 pg [facility]e MCHC (RBC) [Mass/Vol] 33.4 g/dL Normal 31.4 - 36.0 gm/dL [facility] MCV (RBC) [Entitic vol] 90.4 fL Normal 80.0 - 100.0 fL [facility] Monocytes (Bld) [#/Vol] 0.8 E9/L Normal 0.2 - 1.0 E9/L [facility] Monocytes/100 WBC (Bld) 9.9 % Normal 4.0 - 14.0 % [facility] Neutrophils (Bld) [#/Vol] 4.1 E9/L Normal 2.0 - 7.5 E9/L [facility] Neutrophils/100 WBC (Bld) 52.1 % Normal 36.0 - 75.0 % [facility] Platelet 224.0 E9/L Normal 150.0 - 500.0 E9/L [facility] Platelet mean volume (Bld) [Entitic vol] 8.1 fL Normal 6.4 - 10.8 fL [facility] RBC (Bld) [#/Vol] 3.6 E12/L Low 4.3 - 5.9 E12/L [facility] WBC corrected for nucl RBC Auto (Bld) [#/Vol] 7.9 E9/L Normal 4.0 - 11.0 E9/L [facility] Inpatient Clinical Summaryon 07-26-2024 Inpatient Clinical Summary Inpatient Clinical Summary [place] [address] Clinical Summary Person Information: Name: RAIN SWEENEY Age: 64 Years : 1960 Sex: Female PCP: SEB BARRY MD Marital Status: Single Race: White Ethnicity: Non- or Language: Greenlandic Visit Id: Visit Reason: SEPSIS, CELLULITIS Speciality: Acuity: Enc Type: Inpatient Med Service: Medical Arrival: 07/25/2024 00:41:33 Discharge: Dispo Type: Address: [address] [place] [id number] Provider Notes: Diagnosis: 1:Abdominal pain; 2:Acute kidney injury; 3:Acute urinary retention; 4:Constipation; 6:Obese; 7:Cystocele with rectocele; 8:Gastroesophageal reflux disease; 9:Bipolar illness; 10:On deep vein thrombosis (DVT) prophylaxis; Rectocele Problems Active Bipolar illness Cystocele with rectocele Urethral caruncle Atrophic vaginitis Bladder neoplasm of uncertain malignant potential Stress incontinence Gastroesophageal reflux disease Lumbar radiculopathy (04/22/2023) Migraine Myocardial infarction Sleep apnea BMI 28.0-28.9,adult Lesion of right nipple Overweight Acne Heart disease Hypercholesterolemia Scoliosis of lumbosacral spine Anxiety Chronic depression Essential hypertension (05/17/2022) Chronic pain Smoking Status: Never Smoker Functional Status: Sensory Deficits: Hearing deficit, right ear History of Falls: Mobility Assistance Prior to Admission: Independent ADLs: Independent Current Level of Assistance for Self-Care/Mobility: Cognitive Status: Oriented x 3 Allergies penicillin (Hives) Measurements: Height: 170.18 cm Weight: 90.3 kg Blood Pressure: 139 mmHg / 82 mmHg BMI: 30.32 kg/m2 Procedures No Procedures Documented Immunizations No Immunizations Documented This Visit Final Med List: docusate (Colace 100 mg Cap) 1 Capsules By Mouth 2 times a day. lithium (lithium 300 mg oral tablet) 1 Tablets By Mouth at bedtime. omeprazole (omeprazole 20 mg Cap-DR) 1 Capsules By Mouth every day. oxcarbazepine (oxcarbazepine 300 mg Tab) 1 Tablets By Mouth 2 times a day. Take one tablet in morning and Two tablets at night. tretinoin topical (tretinoin Top 0.1% Crm) 1 Application Topical once a day (at bedtime). venlafaxine 225 Milligram By Mouth every day. as directed. Care Team Members: Attending Physician: Aditya MARIA DO Consulting Physician: Brandon Kulkarni MD Referring Physician: Follow up: With: Address: When: H[address] [phone] Business (1) Within 5 to 7 days Comments: Call for followup appointment With: Address: When: SEB ASHA [address] [place], [place] [id number] Business (1) Within 5 to 7 days Comments: Call for followup appointment Patient Education Information: Normal [facility] Inpatient Patient Summaryon 07-26-2024 Inpatient Patient Summary Inpatient Patient Summary [address] [address] Patient Discharge Instructions PERSON INFORMATION Name: RAIN SWEENEY Date of : 1960 Current Date: 07/26/2024 09:39:40 PHYSICIANS Admitting Physician: Aditya MARIA DO Primary Care Physician: SEB BARRY MD PCP Comment: Discharge Diagnosis: 1:Abdominal pain; 2:Acute kidney injury; 3:Acute urinary retention; 4:Constipation; 6:Obese; 7:Cystocele with rectocele; 8:Gastroesophageal reflux disease; 9:Bipolar illness; 10:On deep vein thrombosis (DVT) prophylaxis; Rectocele Condition at Discharge: Improved RAIN SWEENEY has been given the following list of follow-up instructions, prescriptions, and patient education materials: PATIENT FOLLOW-UP INFORMATION Diet: Regular Discharge Activity: Ambulate as tolerated, Activity as tolerated Discharge Restrictions: Wound Care Instructions: Remove Your Dressing In Days Call Your Doctor For: IF UNABLE TO CONTACT YOUR PHYSICIAN AND YOU FEEL IT IS AN EMERGENCY, GO TO THE NEAREST EMERGENCY ROOM OR CALL 911 Home Treatment: CPAP Devices/Equipment: None Special Services: Additional Instructions: Primary Care Physician to provide the following pending test results: None Follow up: With: Address: When: HAMILTON NKPUJALUZMAELLIOT [address] [place] [phone] Business (1) Within 5 to 7 days Comments: Call for followup appointment With: Address: When: SEB ASHA [address] [place] [id number] [facility] (1) Within 5 to 7 days Comments: Call for followup appointment In the event that this physician does not participate in your insurance network, please consult with your insurance company to find a nearby participating provider. Comment: PATEL Colin LINDA JOY, have received the attached patient education materials/instructio ns and have verbalized understanding: Patient Signature Date Clinican/Nurse Signature Date HERE ARE THE MEDICATION CHANGES THAT OCCURRED DURING YOUR HOSPITAL STAY Medications to Continue Taking That Have Changed Other Medications START: docusate (Colace 100 mg Cap) 1 Capsules By Mouth 2 times a day. Last Dose: Next Dose: STOP: docusate (Colace 50 mg oral capsule) 1 Capsules By Mouth 2 times a day as needed for constipation. Refills: 0. Medications to Continue with No Changes Other Medications lithium (lithium 300 mg oral tablet) 1 Tablets By Mouth at bedtime. Last Dose: Next Dose: omeprazole (omeprazole 20 mg Cap-DR) 1 Capsules By Mouth every day. Last Dose: Next Dose: oxcarbazepine (oxcarbazepine 300 mg Tab) 1 Tablets By Mouth 2 times a day. Take one tablet in morning and Two tablets at night. Last Dose: Next Dose: tretinoin topical (tretinoin Top 0.1% Crm) 1 Application Topical once a day (at bedtime). Last Dose: Next Dose: venlafaxine 225 Milligram By Mouth every day. as directed. Last Dose: Next Dose: No Longer Take the Following Medications oxycodone (Roxicodone 5 mg Tab) 1 Tablets By Mouth every 6 hours as needed for pain. Refills: 0. sulfamethoxazole-tri methoprim (Bactrim D.S. 800 mg-160 mg Tab) 1 Tablets By Mouth 2 times a day for 5 Days. Refills: 0. Comment: MEDICATION LIST PROVIDED FOR YOU IS A LIST OF YOUR CURRENT MEDICATIONS. PLEASE CARRY THIS WITH YOU AT ALL TIMES. docusate (Colace 100 mg Cap) 1 Capsules By Mouth 2 times a day. lithium (lithium 300 mg oral tablet) 1 Tablets By Mouth at bedtime. omeprazole (omeprazole 20 mg Cap-DR) 1 Capsules By Mouth every day. oxcarbazepine (oxcarbazepine 300 mg Tab) 1 Tablets By Mouth 2 times a day. Take one tablet in morning and Two tablets at night. tretinoin topical (tretinoin Top 0.1% Crm) 1 Application Topical once a day (at bedtime). venlafaxine 225 Milligram By Mouth every day. as directed. Pharmacy Information: Comment: PATIENT EDUCATION INFORMATION Instructions: Medication Leaflets: You may receive a survey from Angelina Betancourt asking you to rate your care experience. Your feedback is important and will help us understand what we do well and how we can improve the quality of care we provide to you, your loved ones and our community. It???s an honor to serve you. Thank you for choosing [facility] Normal [facility] Interdisciplinary Note - Javi e Manageron 07-26-2024 Interdisciplinary Note - Vp Research Interdisciplinary Note - Vp Research SW spoke with patient in room. No family in room. Patient is alert and oriented and participates in discharge planning. Patient is , lives alone. There was a consult for domestic concerns. She states she feels safe and has no domestic concerns. She reports that her neighbor Damaso is very helpful. She has a good support system and christianity family. Her son and daughter live in [place]. Dr. Waldrop is following, see notes, saw patient earlier today. Patient was admitted on 07/25/24. Has a consult with Urology. Patient verified PCP, insurance and DME. Patient denied any needs at d/c and is anxious to return home. This patient will have neighbor transport home. Patient white board updated, and contact information provided. Normal [facility] Comment on above: Result Comment: Elec tronically Signed By: Jaison DE LA FUENTEW, Paulette\.br\Date and Time Signed: 07/26/24 09:41 EST eGFRon 07-26-2024 eGFR 72 mL/min/1.73 m2 Normal >=59 [facility] Comment on above: Performed By: #### 1 [id number] #### [facility] [address] [place] [address] CBC w/ Auto Diffon 4 Basophils/100 WBC (Bld) 0.5 % Normal 0.0-2.0 F [facility] Comment on above: Performed By: #### 2 [id number] #### [facility] [address] [place] [address] Basophils/Leukocytes Auto (Bld) [Pure # fraction] 0.0 E9/L Normal 0.0-0.2 [facility] Comment on above: Performed By: #### 2 [id number] #### [facility] [address] [place] [address] Eosinophils (Bld) [#/Vol] 0.1 E9/L Normal 0.0-0.5 [facility] Comment on above: Performed By: #### 2 [id number] #### [facility] [address] [place] [address] Eosinophils/100 WBC (Bld) 0.5 % Normal 0.0-8.0 [facility] Comment on above: Performed By: #### 2 [id number] #### [facility] [address] [place] [address] Erythrocyte distribution width (RBC) [Ratio] 15.3 % High 10.9-14.2 [facility] Comment on above: Performed By: #### 2 [id number] #### [facility] [address] [place] [address] Hematocrit (Bld) [Volume fraction] 35.8 % Normal 34.0-46.0 [facility] Comment on above: Performed By: #### 2 [id number] #### [facility] [address] [place] [address] Hemoglobin (Bld) [Mass/Vol] 11.9 g/dL Low 12.0-16.0 [facility] Comment on above: Performed By: #### 2 [id number] #### [facility] [address] [place] [address] Lymphocytes (Bld) [#/Vol] 1.1 E9/L Normal 1.0-4.0 [facility] Comment on above: Performed By: #### 2 [id number] #### [facility] [address] [place] [address] Lymphocytes/100 WBC (Bld) 11.3 % Low 14.0-50.0 [facility] Comment on above: Performed By: #### 2 [id number] #### [facility] [address] [place] [address] MCH (RBC) [Entitic mass] 29.9 pg Normal 27.0-34.0 [facility] Comment on above: Performed By: #### 2 [id number] #### [facility] [address] [place] [address] MCHC (RBC) [Mass/Vol] 33.4 g/dL Normal 31.4-36.0 [facility] Comment on above: Performed By: #### 2 [id number] #### [facility] [address] [place] [address] MCV (RBC) [Entitic vol] 89.4 fL Normal 80.0-100.0 F [facility] Comment on above: Performed By: #### 2 [id number] #### [facility] [address] [place] [address] Monocytes (Bld) [#/Vol] 0.9 E9/L Normal 0.2-1.0 F [facility] Comment on above: Performed By: #### 2 [id number] #### [facility] [address] [place] [address] Neutrophils (Bld) [#/Vol] 7.9 E9/L High 2.0-7.5 [facility] Comment on above: Performed By: #### 2 [id number] #### [facility] [address] [place] [address] Neutrophils/100 WBC (Bld) 78.3 % High 36.0-75.0 [facility] Comment on above: Performed By: #### 2 [id number] #### [facility] [address] [place] [address] Platelet 252.0 E9/L Normal 150.0-500.0 [facility] Comment on above: Performed By: #### 2 [id number] #### [facility] [address] [place] [address] Platelet mean volume (Bld) [Entitic vol] 8.1 fL Normal 6.4-10.8 [facility] Comment on above: Performed By: #### 2 [id number] #### [facility] [address] [place] [address] RBC (Bld) [#/Vol] 4.0 E12/L Low 4.3-5.9 [facility] Comment on above: Performed By: #### 2 [id number] #### [facility] [address] [place] [address] WBC corrected for nucl RBC Auto (Bld) [#/Vol] 10.1 E9/L Normal 4.0-11.[address] [facility] Comment on above: Performed By: #### 2 [id number] #### [facility] [address] [place] [address] CHEMISTRYOrdered By: Elisabeth Hoffman on 07-25-2024 Albumin [Mass/Vol] 3.5 g/dL Normal 3.3 - 5.0 gm/dL Remisol Chem Albumin/Globulin [Mass ratio] 1.3 {ratio} Normal 1.1 - 2.2 Remisol Chem ALP [Catalytic activity/Vol] 78 [iU]/d Normal 21 - 98 Int._Unit/L Remisol Chem ALT No additional P-5'-P [Catalytic activity/Vol] 9 [iU]/d Normal 6 - 46 Int._Unit/L Remisol Chem Anion gap [Moles/Vol] 8 mmol/L Normal 6 - 16 mEq/L R emisol Chem AST [Catalytic activity/Vol] 14 [iU]/d Normal 5 - 43 Int._Unit/L Remisol Chem Bilirubin [Mass/Vol] 0.6 mg/dL Normal 0.0 - 1 .1 mg/dL Rem[facility] Chem Calcium [Mass/Vol] 8.4 mg/dL Low 8.9 - 11. 1 mg/dL Rem[facility] Chem Chloride [Moles/Vol] 110 mmol/L Normal 101 - 1 11 mmol/L Rem[facility] Chem CO2 [Moles/Vol] 24 mmol/L Normal 21 - 31 mmol/L Remisol Chem Creatinine [Mass/Vol] 1.8 mg/dL High 0.5 - 1.3 mg/dL Remisol Chem eGFR 31 mL/min/1.73 m2 Low >=59mL/min /1 .73 m2 Remisol Chem Globulin (S) [Mass/Vol] 2.8 g/dL Normal 1.4 - 4.0 gm/dL Remisol Chem Glucose [Mass/Vol] 120 mg/dL Normal 55 - 199 mg/dL [facility] Chem Lactic Acid Lvl 0.8 mmol/L Normal 0.5 - 2.2 mmol/L [facility] Chem Potassium [Moles/Vol] 5.0 mmol/L Normal 3.5 - 5.3 mmol/L [facility] Chem Protein [Mass/Vol] 6.3 g/dL Normal 6.0 - 7.8 gm/dL [facility] Sodium [Moles/Vol] 137 mmol/L Normal 135 - 145 mmol/L [facility] Chem Urea nitrogen [Mass/Vol] 23 mg/dL High 5 - 21 mg/d L [facility] Chem Urea nitrogen/Creatinine [Mass ratio] 13 mg/mg Normal 10 - 20 [facility] Chem CMPon 07-25-2024 Albumin [Mass/Vol] 3.5 g/dL Normal 3.3-5.0 [facility] [place] Comment on above: Performed By: #### 2 [id number] #### [facility] [place] Laboratory [address] [place] [address] Albumin/Globulin (S) [Mass conc ratio] 1.3 Normal 1.1-2.2 [facility] [place] Comment on above: Performed By: #### 2 [id number] #### [facility] [place] Laboratory [address] [place] [address] ALP [Catalytic activity/Vol] 78 Int._Unit/L Normal 21-98 [facility] [place] Comment on above: Performed By: #### 2 [id number] #### [facility] [place] Laboratory [address] [place] [address] ALT No additional P-5'-P [Catalytic activity/Vol] 9 Int._Unit/L Normal 6-46 [facility] [place] Comment on above: Performed By: #### 2 [id number] #### [facility] [place] Laboratory [address] [place] [address] Anion gap [Moles/Vol] 8 mmol/L Normal 6-16 [facility] Comment on above: Performed By: #### 2 [id number] #### [facility] [place] Laboratory [address] [place] [address] AST [Catalytic activity/Vol] 14 Int._Unit/L Normal 5-43 [facility] [place] Comment on above: Performed By: #### 2 [id number] #### [facility] [place] Laboratory [address] [place] [address] Bilirubin [Mass/Vol] 0.6 mg/dL Normal 0.0-1.1 [facility] Comment on above: Performed By: #### 2 [id number] #### [facility] [place] Laboratory [address] [place] [address] Calcium [Mass/Vol] 8.4 mg/dL Low 8.9-11.1 [facility] [place] Comment on above: Performed By: #### 2 [id number] #### [facility] [place] Laboratory [address] [place] [address] Chloride [Moles/Vol] 110 mmol/L Normal 101-111 [facility] Comment on above: Performed By: #### 2 [id number] #### [facility] [place] Laboratory [address] [place] [address] CO2 [Moles/Vol] 24 mmol/L Normal 21-[address] [facility] Comment on above: Performed By: #### 2 [id number] #### [facility] [place] Laboratory [address] [place] [address] Creatinine [Mass/Vol] 1.8 mg/dL High 0.5-1.3 [facility] Comment on above: Performed By: #### 2 [id number] #### [facility] [place] Laboratory [address] [place] [address] Globulin (S) [Mass/Vol] 2.8 g/dL Normal 1.4-4.0 F [facility] [place] Comment on above: Performed By: #### 2 [id number] #### [facility] [place] Laboratory [address] [place] [address] Glucose [Mass/Vol] 120 mg/dL Normal 55-199 [facility] [place] Comment on above: Performed By: #### 2 [id number] #### [facility] [place] Laboratory [address] [place] [address] Potassium [Moles/Vol] 5.0 mmol/L Normal 3.5-5.3 [facility] Comment on above: Performed By: #### 2 [id number] #### [facility] [place] Laboratory [address] [place] [address] Protein [Mass/Vol] 6.3 g/dL Normal 6.0-7.8 [facility] [place] Comment on above: Performed By: #### 2 [id number] #### [facility] [place] Laboratory [address] [place] [address] Sodium [Moles/Vol] 137 mmol/L Normal 135-145 [facility] [place] Comment on above: Performed By: #### 2 [id number] #### [facility] [place] Laboratory [address] [place] [address] Urea nitrogen [Mass/Vol] 23 mg/dL High 5-21 [facility] [place] Comment on above: Performed By: #### 2 [id number] #### [facility] [place] Laboratory [address] [place] [address] Urea nitrogen/Creatinine [Mass ratio] 13 No Units Normal 10-20 [facility] [place] Comment on above: Performed By: #### 2 [id number] #### [facility] [place] Laboratory [address] [place] [address] HEMATOLOGYOrdered By: SYSTEM SYSTEM on 07-25-2024 Basophils/100 WBC (Bld) 0.5 % Normal 0.0 - 2.0 % Remisol Heme Basophils/Leukocytes Auto (Bld) [Pure # fraction] 0.0 E9/L Normal 0.0 - 0.2 E9/L [facility] Heme Eosinophils (Bld) [#/Vol] 0.1 E9/L Normal 0.0 - 0.5 E9/L [facility] Heme Eosinophils/100 WBC (Bld) 0.5 % Normal 0.0 - 8.0 % [facility] Heme Erythrocyte distribution width (RBC) [Ratio] 15.3 % High 10.9 - 14.2 % [facility] Heme Hematocrit (Bld) [Volume fraction] 35.8 % Normal 34.0 - 46.0 % [facility] Heme Hemoglobin (Bld) [Mass/Vol] 11.9 g/dL Low 12.0 - 16.0 gm/dL [facility]e Lymphocytes (Bld) [#/Vol] 1.1 E9/L Normal 1.0 - 4.0 E9/L [facility]e Lymphocytes/100 WBC (Bld) 11.3 % Low 14.0 - 50.0 % [facility] Heme MCH (RBC) [Entitic mass] 29.9 pg Normal 27. 0 - 34.0 pg Remisol Heme MCHC (RBC) [Mass/Vol] 33.4 g/dL Normal 31.4 - 36.0 gm/dL [facility] Heme MCV (RBC) [Entitic vol] 89.4 fL Normal 80.0 - 100.0 fL [facility]e Monocytes (Bld) [#/Vol] 0.9 E9/L Normal 0.2 - 1.0 E9/L [facility]e Monocytes/100 WBC (Bld) 9.4 % Normal 4.0 - 14.0 % [facility] Heme Neutrophils (Bld) [#/Vol] 7.9 E9/L High 2.0 - 7.5 E9/L [facility]e Neutrophils/100 WBC (Bld) 78.3 % High 36.0 - 75.0 % [facility] Platelet 252.0 E9/L Normal 150.0 - 500.0 E9/L [facility] Heme Platelet mean volume (Bld) [Entitic vol] 8.1 fL Normal 6.4 - 10.8 fL [facility]e RBC (Bld) [#/Vol] 4.0 E12/L Low 4.3 - 5.9 E12/L [facility]e WBC corrected for nucl RBC Auto (Bld) [#/Vol] 10.1 E9/L Normal 4.0 - 11.0 E9/L [facility] Heme Lactic Acidon 07-25-2024 Lactic Acid Lvl 0.8 mmol/L Normal 0.5-2.[address] [facility] Comment on above: Performed By: #### 2 [id number] #### [facility] [place] Laboratory [address] [place] [address] Loring Riccardo 07-25-2024 Loring Lvl .3 mmol/L Low 1.0-1.2 [facility] [place] Comment on above: Result Comment: 12 h our post dose concentration: 1.0-1.2 mmol/L Minimum effective concentration: 0.6 mmol/L Values >1.5 mmol/L 12 hours after dose indicates a significant risk of intoxication. Performed By: #### 4 [id number] #### [facility] [place] Laboratory [address] [place] [address] Reference Laboratory Testing Ordered By: SYSTEM SYSTEM on 07-25-2024 Loring Lvl 0.3 mmol/L Low 1.0 - 1.2 mmol/L [facility] Comment on above: Interpretive Data: 1 2 hour post dose concentration: 1.0-1.2 mmol/L Minimum effective concentration: 0.6 mmol/L Values >1.5 mmol/L 12 hours after dose indicates a significant risk of intoxication. UA with Cult Rflxon 07-25-20 Bacteria Auto Ql (U) Trace Normal Trace [facility] Comment on above: Performed By: #### 4 [id number] #### [facility] [place] Laboratory [address] [place] [address] Bilirubin Ql (U) Negative Normal Negative [facility] Comment on above: Performed By: #### 4 [id number] #### [facility] [place] Laboratory [address] [place] [address] Clarity (U) Clear Normal Clear [facility] [place] Comment on above: Performed By: #### 4 [id number] #### [facility] [place] Laboratory [address] [place] [address] Color (U) Colorless Abnormal Yellow [facility] [place] Comment on above: Result Comment: Micr oscopic readings are only performed on those samples that meet specific criteria set forth by [facility] [place] Laboratory. Performed By: #### 4 [id number] #### [facility] [place] Laboratory [address] [place] [address] Epithelial cells.squamous Auto (Urine sed) [#/Area] 0-2 Invalid Interpretation Code [facility] [place] Comment on above: Performed By: #### 4 [id number] #### [facility] [place] Laboratory [address] [place] [address] Glucose Ql (U) Negative Normal Negative [facility] Comment on above: Performed By: #### 4 [id number] #### [facility] [place] Laboratory [address] [place] [address] Hemoglobin Auto test strip (U) [Mass/Vol] 2+ mg/dL Abnormal Negative [facility] Comment on above: Performed By: #### 4 [id number] #### [facility] [place] Laboratory [address] [place] [address] Ketones Auto test strip Ql (U) Trace Abnormal Negative [facility] [place] Comment on above: Performed By: #### 4 [id number] #### [facility] [place] Laboratory [address] [place] [address] Leukocyte esterase Auto test strip Ql (U) Negative Normal Negative [facility] [place] Comment on above: Performed By: #### 4 [id number] #### [facility] [place] Laboratory [address] [place] [address] Mucus Auto Ql (U) Negative Normal Negative [facility] [place] Comment on above: Performed By: #### 4 [id number] #### [facility] [place] Laboratory [address] [place] [address] Nitrite Auto test strip Ql (U) Negative Normal Negative [facility] [place] Comment on above: Performed By: #### 4 [id number] #### [facility] [place] Laboratory [address] [place] [address] pH (U) 6.0 [pH] Invalid Interpretation Code 5.0-9.0 [facility] [place] Comment on above: Performed By: #### 4 [id number] #### [facility] Laboratory [address] [place] [address] Protein Ql (U) Negative Normal Negative [facility] Comment on above: Performed By: #### 4 [id number] #### [facility] [place] Laboratory [address] [place] [address] RBC Ql (U) 4-20 Abnormal 0-3 [facility] [place] Comment on above: Performed By: #### 4 [id number] #### [facility] [place] Laboratory [address] [place] [address] Specific gravity (U) [Rel density] 1.006 Invalid Interpretation Code 1.005-1.030 [facility] [place] Comment on above: Performed By: #### 4 [id number] #### [facility] Laboratory [address] [place] [address] Urobilinogen (U) [Mass/Vol] Negative Normal Negative [facility] [place] Comment on above: Performed By: #### 4 [id number] #### [facility] Laboratory [address] [place] [address] WBC Auto (Urine sed) [#/Area] 0-5 Normal 0-5 [facility] [place] Comment on above: Performed By: #### 4 [id number] #### [facility] Laboratory [address] [place] [address] Type of Urine collection method Clean Catch Normal [facility] [place] Comment on above: Performed By: #### 4 [id number] #### [facility] [place] Laboratory [address] [place] [id number] URINALYSISOrdered By: SYSTEM SYSTEM on 07-25-2024 Bacteria Auto Ql (U) Trace /HPF Normal Trace/HPF [facility] UA Auto SS Bilirubin Ql (U) Negative Normal Negativemg/ d L [facility] UA Auto SS Clarity (U) Clear (07/25/24 10:15 AM) Normal Clear [facility] UA Auto SS Color (U) Colorless 1 *ABN* (07/25/24 10:15 AM) Invalid Interpretation Code Yellow [facility] UA Auto SS Comment on above: Interpretive Data: M icroscopic readings are only performed on those samples that meet specific criteria set forth by [facility] [place] [facility]. Epithelial cells.squamous Auto (Urine sed) [#/Area] 0-2 graded/HPF Invalid Interpretation Code [facility] UA Auto SS Glucose Ql (U) Negative Normal Negativemg/d L [facility] UA Auto SS Hemoglobin Auto test strip (U) [Mass/Vol] 2+ mg/dL Invalid Interpretation Code Negativemg/d L [facility] UA Auto SS Ketones Auto test strip Ql (U) Trace mg/dL Invalid Interpretation Code Negativemg/d L [facility] UA Auto SS Leukocyte esterase Auto test strip Ql (U) Negative Normal NegativeLeu/ uL [facility] UA Auto SS Mucus Auto Ql (U) Negative Normal Negativegr ad ed/LPF [facility] UA Auto SS Nitrite Auto test strip Ql (U) Negative Normal Negativemg/d L [facility] UA Auto SS pH (U) 6.0 *NA* (07/25/24 10:15 AM) Invalid Interpretation Code 5.0 - 9.0 [facility] UA Auto SS Protein Ql (U) Negative Normal Negativemg/d L [facility] UA Auto SS RBC Ql (U) 4-20 graded/HPF Invalid Interpretation Code 0-3graded/HP F [facility] UA Auto SS Specific gravity (U) [Rel density] 1.006 *NA* (07/25/24 10:15 AM) Invalid Interpretation Code 1.005 - 1.030 [facility] UA Auto SS Urobilinogen (U) [Mass/Vol] Negative Normal Negativemg/d L [facility] UA Auto SS WBC Auto (Urine sed) [#/Area] 0-5 graded/HPF Normal 0-5graded/HP F [facility] UA Auto SS URINALYSISOrdered By: Emmanuel MARIA on 07-25-2024 UA Spec Desc Clean Catch (07/25/24 10:15 AM) Normal [facility] U[facility] Auto SS Work Phone: eGFRon 07-25-2024 eGFR 31 mL/min/1.73 m2 Low >=59 [facility] [place] Comment on above: Performed By: #### 1 [id number] #### [facility] Laboratory [address] [place] [address] Main OR Intraoperative Recor don 07-23-2024 Main OR Intraoperative Record Main OR Intraoperative Record IntraOp Document Type FT Summary Primary Physician: HAMILTON MALONE MD Finalized Date/Time: 07/23/24 09:40:12 Pt. Name: RAIN SWEENEY/Sex: 1960 Female Med Rec #: [id number] Physician: HAMILTON MALONE MD Financial #: [id number] Pt. Type: A Room/Bed: [place] [address] Admit/Disch: 07/22/24 05:26:39 - 07/22/24 12:30:16 Institution: Case Times FT Entry 1 Patient Times In Room 07/22/24 07:38:00 Out Room 07/22/24 09:07:00 Procedure Times Start 07/22/24 08:00:00 Stop 07/22/24 09:02:00 Anesthesia Times Start 07/22/24 07:38:00 Stop 07/22/24 09:07:00 Last Modified By: Terri Glynn Ii 07/22/24 09:12:16 General Comments: 07/23/24 Chart opened to review and send charges [facility]oth CSFA Case Attendance FT Entry 1 Entry 2 Entry 3 Case Attendee Tru GUERRA, Regine MALONE MD, Scooby Bolden CST Role Performed PAPER SEALER Surgeon - Primary TOP PRECIPITATOR OPERATOR/SA Time In 07/22/24 07:38:00 07/22/24 07:38:00 07/22/24 07:38:00 Time Out 07/22/24 09:07:00 07/22/24 09:01:00 07/22/24 09:07:00 Procedure TVT SLING(.) TVT SLING(.) TVT SLING(.) Comments DR. BALLESTEROS LINEN CLERK ASSIST Last Modified By: Terri Glynn Ii, Alfons Ii F Letrondo, Alfons Ii F 07/22/24 09:12:19 07/22/24 09:12:19 07/22/24 09:12:19 Entry 4 Entry 5 Entry 6 Case Attendee Jared DE LA ROSA, Becky Deng, Terri Danielle Ii Role Performed Scrub - Primary Staff - Other Industrial Machine System Technician - Primary Time In 07/22/24 07:38:00 07/22/24 07:38:00 07/22/24 07:38:00 Time Out 07/22/24 08:47:00 07/22/24 09:07:00 07/22/24 09:07:00 Procedure TVT SLING(.) TVT SLING(.) TVT SLING(.) Comments 2ND SCRUB Last Modified By: Terri Glynn Ii F Terri Glynn Ii, Alfons Ii Gilberto 07/22/24 09:13:05 07/22/24 09:12:19 07/22/24 09:12:19 Entry 7 Case Attendee Lakisha Bolden CST Role Performed Scrub - Relief Time In 07/22/24 08:46:00 Time Out 07/22/24 09:07:00 Procedure TVT SLING(.) Comments BREAK RELIEF Last Modified By: Terri Glynn Ii 07/22/24 09:12:19 General Comments: ANIKA JOHNSON, MED STUDENT IS IN ATTENDANCE. 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 Protocols FT Pre-Care Text: Implements protective measures prior to operative or invasive procedure, confirms identity before the operative or invasive procedure, verifies operative procedure, surgical site, and laterality Entry 1 Procedure(s) TVT SLING(.) Patient Identity Birthday, Blood Band, Verified (select at ID Band Check, Patient least 2): Participation Consents / H and P Anesthesia Consent, Operative Site N/A Verified H&P, Surgery/Procedure Marking Verified Consent, Transfusion Consent Surgical Site Yes Laterality Verified n/a Verified Procedure Verified Yes Correct Patient Yes Position Verified Availability Equipment, Implant, Prep Dry No Verified (If Medication Applicable) PreOp Antibiotic Yes Time Out Regine Ott CRNA, Given Participants GABBY RAMIREZ, Yuan VILLASENOR CST, Jared Almodovar LPN, Becky Newell, Alvin Deng, Terri Glynn Ii Time Out Complete 07/22/24 08:00:00 Outcomes Met? Yes Last Modified By: Terri Glynn Ii 07/22/24 08:19:08 Post-Care Text: The patient is free from signs and symptoms of injury caused by extraneous objects Allergy Information FT Pre-Care Text: Verifies allergies Entry 1 Allergies Reviewed? Yes Allergies Reviewed Self/Patient With Outcomes Met? Yes Last Modified By: Terri Glynn Ii 07/22/24 08:19:14 Post-Care Text: The patient received appropriate medication(s) safely administered during the perioperative period Surgical Procedures FT Entry 1 Procedure Description Procedure TVT SLING Modifiers . Surgeon Description CYSTOSCOPY, MIDURETHERAL SLING AND PROLAPSE REPAIR Primary Procedure Yes Primary Surgeon GABBY RAMIREZ, HMAILTON Start 07/22/24 08:00:00 Stop 07/22/24 09:02:00 Anesthesia Type General Surgical Service Anesthesia Wound Class 2 - Clean-Contaminated Last Modified By: Terri Glynn Ii 07/22/24 09:12:35 General Case Data FT Pre-Care Text: Classifies surgical wound, implements aseptic technique, initiates traffic control Entry 1 Case Information OR OR 2 FT Case Level Level 4 Wound Class 2 - Clean-Contaminated Specialty Anesthesia ASA Class 3 Preop Diagnosis BLADDER NEOPLASM, Postop Same As Preop Yes STRESS INCONTINENCE, URETHERAL CARUNCLE, CYSTOCELE WITH RECTOCELE Postop Diagnosis BLADDER NEOPLASM, Outcomes Met? Yes STRESS INCONTINENCE, URETHERAL CARUNCLE, CYSTOCELE WITH RECTOCELE Last Modified By: Alesha Gil CST 07/23/24 09:36:53 Post-Care Text: The patient is free from signs and symptoms of infection Skin Assessment (Pre Procedure) FT Pre-Care Text: Implements protective measures to prevent skin/ tissue injury due to thermal or mechanical sources Evaluates for signs and symptoms of physical (more content not included)... Normal [facility] Discharge Instructionson Discharge Instructions Discharge Instructions PATEL RAIN LEYDA :1960 Visit Date:07/22/2024 Inpatient Discharge Instructions Your Care Team Admitting Physician - HAMILTON MALONE MD Referring Physician - HAMILTON MALONE MD Reason for Your Visit BLADDER NEOPLASM, STRESS INCONTINENCE, URETHERAL CARUNCLE, CYSTOCELE WITH RECTOCELE This Is Your Medications List docusate (Colace 50 mg oral capsule) lithium (lithium 300 mg oral tablet) omeprazole (omeprazole 20 mg Cap-DR) oxcarbazepine (oxcarbazepine 300 mg Tab) oxycodone (Roxicodone 5 mg Tab) tretinoin topical (tretinoin Top 0.1% Crm) venlafaxine Procedure History Cystoscopy (06/24/2024), History of augmentation of breast, History of bilateral breast implants, History of nasal sinus surgery, Stapedectomy, Tubal ligation. What to do next Instructions From Your Doctor Event Name Event Result Discharge Instructions Freetext Normal sexual intercourse for 4 to 6 weeks, no vigorous exercise for 4 to 6 weeks. Hydrate vigorously with 2 L of water per day. Pain control with Tylenol and Motrin. Take Roxicodone for breakthrough. Ambulate. Follow-up in 2 weeks in the office. Discharge Activity Ambulate as tolerated, Expect minimal amount of drainage and/or bleeding Discharge Restrictions No driving for 24 hrs Discharge Diet(s) Regular Call Your Doctor For Persistent or heavy bleeding, Temperature above 101.5 degrees Wound Care Remove dressing as instructed Discharge Instructions Discharge Instructions New Follow Up Appointments after Discharge Follow Up with HAMILTON MALONE When: Comments: 2 weeks Where: [address] [place] [address]- [phone] Business (1) Medications What How Much When Instructions Next Dose New docusate (Colace 50 mg oral capsule) 1 Capsules By Mouth 2 times a day as needed for for constipation Pickup at [facility]/pharmacy #[id number] New oxycodone (Roxicodone 5 mg Tab) 1 Tablets By Mouth Every 6 hours as needed for for pain Pickup at [facility]/pharmacy #[id number] Changed venlafaxine 225 Milligram By Mouth Every day as directed Unchanged lithium (lithium 300 mg oral tablet) 3 Tablets By Mouth At bedtime Unchanged omeprazole (omeprazole 20 mg Cap-DR) 1 Capsules By Mouth Every day Unchanged oxcarbazepine (oxcarbazepine 300 mg Tab) 1 Tablets By Mouth Every day Unchanged tretinoin topical (tretinoin Top 0.1% Crm) 1 Application Topical Once a day (at bedtime) Pharmacy Information [facility]/pharmacy #[id number]: [address], [place] [id number] [phone] Test Results No qualifying data available. Allergies penicillin (Hives) Problems Ongoing - Any [...] no longer receiving treatment for. Bipolar disorder Devices Implanted/Removed This Visit Notice: You have devices implanted this visit that may not be MRI compatible. Implanted TVT SLING Other SUPRAPUBIC MID-URETHRAL SLING 07/22/2024 [employer] [place], [place] Ambrose Dorantes M.D. TVT DISCHARGE INSTRUCTIONS The following instructions must be followed very closely: 1. If you need pain pills, start before pain becomes intense. Antibiotics and pain pills are frequently less upsetting to your stomach if you take them with food such as crackers or bread. 2. If you are having excessive or persistent pain, swelling, bleeding, nausea, vomiting, or any other problems you should FIRST call your surgeon for advice. If you are unable to contact your surgeon, seek help from a hospital emergency room. If you were given drugs to make you drowsy and/or pain medication, follow these instructions: 1. You should spend the remainder of the day and evening resting. 2. You should not attempt to walk, including going to the bathroom, without assistance. You may be lightheaded from the medications you received. 3. Eat light today to avoid nausea. You should be able to return to your normal diet 24-36 hours after surgery. 4. For the next 24 hours you should not consume alcohol, attempt to drive, use any power tools, sign important documents or make personal or business decisions. After that do so only if you feel perfectly normal and alert. 5. Follow carefully any verbal or written instructions your surgeon may have given you. Surgeon???s Phone number: [phone] Surgeon???s Written Instructions: 1. During the daytime hours empty (more content not included)... Normal [facility] [facility] [place] Comment on above: Result Comment: Elec tronically Signed By: Wendie SUNG, Stephanie Johnson\.br\Date and Time Signed: 07/22/24 09:47 EST Inpatient Patient Summaryon 07-22-2024 Inpatient Patient Summary Inpatient Patient Summary [place] [id number] [facility] Clinical Discharge Instructions PERSON INFORMATION Name: RAIN SWEENEY PHYSICIANS Admitting Physician: HAMILTON MALONE MD Attending Physician: HAMILTON MALONE MD PCP: SEB BARRY MD Discharge Diagnosis: Comment: PATIENT EDUCATION INFORMATION Instructions: Cook - TVT Discharge Instructions(CUSTOM) ; Post Op Patient Instructions - FT (CUSTOM) Medication Leaflets: Follow up: With: Address: When: HAMILTON MALONE [address] [place] [address] [phone] Business (1) Comments: 2 weeks MEDICATION LIST New Medications [id number], [address], [place] [id number], [phone] docusate (Colace 50 mg oral capsule) 1 Capsules By Mouth 2 times a day as needed for constipation. Refills: 0. oxycodone (Roxicodone 5 mg Tab) 1 Tablets By Mouth every 6 hours as needed for pain. Refills: 0. sulfamethoxazole-tri methoprim (Bactrim D.S. 800 mg-160 mg Tab) 1 Tablets By Mouth 2 times a day for 5 Days. Refills: 0. Medications to Continue Taking That Have Changed Other Medications START: venlafaxine 225 Milligram By Mouth every day. as directed. Medications to Continue with No Changes Other Medications lithium (lithium 300 mg oral tablet) 3 Tablets By Mouth at bedtime. omeprazole (omeprazole 20 mg Cap-DR) 1 Capsules By Mouth every day. oxcarbazepine (oxcarbazepine 300 mg Tab) 1 Tablets By Mouth every day. tretinoin topical (tretinoin Top 0.1% Crm) 1 Application Topical once a day (at bedtime). Comment: Normal [facility] Main OR PACU I Recordon 07-11 Main OR PACU I Record Main OR PACU I Record PACU Phase I Document Type FT Summary Primary Physician: HAMILTON MALONE MD Finalized Date/Time: 07/22/24 11:31:23 Pt. Name: RAIN SWEENEY/Sex: 1960 Female Med Rec #: [id number] Physician: HAMILTON MALONE MD Financial #: [id number] Pt. Type: A Room/Bed: [facility]/ Admit/Disch: 07/22/24 05:26:39 - Institution: Case Times PACU I FT [...] to medications Entry 1 In PACU I 07/22/24 09:08:00 Discharge from PACU 07/22/24 10:08:00 I Outcomes Met? Yes Last Modified By: Teresita Chapman RN 07/22/24 11:31:12 Post-Care Text: The patient demonstrates knowledge of [...] PACU I FT Entry 1 Start Time 07/22/24 09:08:00 Stop Time 07/22/24 10:08:00 Acuity Level Acuity Level I Last Modified By: Teresita Chapman RN 07/22/24 11:31:21 Finalized By: Teresita Chapman RN Document Signatures Signed By: Teresita Chapman RN 07/22/24 11:[address] [facility] Main OR PACU II Recordon Main OR PACU II Record Main OR PACU II Record PACU Phase II Document Type FT Summary Primary Physician: HAMILTON MALONE MD Finalized Date/Time: 07/22/24 12:32:48 Pt. Name: RAIN SWEENEY/Sex: 1960 Female Med Rec #: [id number] Physician: HAMILTON MALONE MD Financial #: [id number] Pt. Type: A Room/Bed: [place] [address] Admit/Disch: 07/22/24 05:26:39 - Institution: Case Times PACU II FT [...] to medications Entry 1 In PACU II 07/22/24 10:10:00 Discharge from PACU 07/22/24 12:30:00 II Outcomes Met? Yes Last Modified By: Val Scales 07/22/24 12:32:47 Post-Care Text: The patient demonstrates knowledge of [...] administered during the perioperative period Finalized By: Val Scales Document Signatures Signed By: Val Scales 07/22/24 12:32 Normal [facility] Main OR Preoperative Recordo n 07-22-2024 Main OR Preoperative Record Main OR Preoperative Record PreOp Document Type FT Summary Primary Physician: HAMILTON MALONE MD Finalized Date/Time: 07/22/24 08:03:39 Pt. Name: RAIN SWEENEY /Sex: 1960 Female Med Rec #: [id number] Physician: HAMILTON MALONE MD Financial #: [id number] Pt. Type: A Room/Bed: [place] [address] Admit/Disch: 07/22/24 05:26:39 - Institution: Case Times PreOp FT Pre-Care Text: Verifies consent for planned procedure, identifies individual values and wishes concerning care, includes family members in perioperative teaching Entry 1 Patient Times. In Pre Surgery 07/22/24 05:45:00 Out Pre Surgery 07/22/24 07:36:00 Outcomes Met? Yes Last Modified By: Terri Glynn Ii 07/22/24 08:03:38 Post-Care Text: The patient participates in decisions affecting his or her perioperative plan of care Finalized By: Terri Glynn Ii Document Signatures Signed By: Terri Glynn Ii 07/22/24 08:03 Normal [facility] Operative Reporton Operative Report Operative Report Patient: RAIN SWEENEY Age: 64 years Sex: Female : 1960 Associated Diagnoses: None Author: HAMILTON MALONE MD Procedure Surgeon: Hamilton Malone MD Assistants: None Pre-op Diagnosis: Stress urinary incontinence Post-op Diagnosis: Same Procedure: Placement of retropubic (Supris) mid urethral sling, cystourethroscopy Anesthesia: General Complications: None EBL: 50 mL Specimen: None Findings: Hypermobile urethra Indications for procedure: 64-year-old female presenting with severe stress urinary incontinence for the aforementioned procedure. H&P was reviewed, informed consent was obtained, patient understood risk, benefits, alternatives of procedure and wished to proceed. Procedure: The patient was placed in the dorsal lithotomy position. Her perineum was prepped and draped in usual sterile manner. A weighted vaginal speculum was placed as was a Lyn catheter. The pubic symphysis was marked as was the skin 3 cm lateral to midline bilaterally approximately 1 cm cephalad to the pubic tubercles. The skin at this location was infiltrated with 1% lidocaine with epinephrine bilaterally. 3 mm skin incisions were made at each site. The anterior vaginal submucosa was also infiltrated with local anesthetic overlying the mid urethra. A 2 cm vertical incision was made in the anterior vaginal mucosa overlying the mid urethra. The submucosal tissue was dissected in posterolateral directions bilaterally such that an index finger could be placed posterior to the inferior pubic ramus bilaterally. The left-sided trocar was passed through the left retropubic skin incision and was guided along the posterior aspect of the pubic tubercle as could be palpated through the trocar. It was guided into the vaginal incision using an index finger as a guide. The right-sided trocar was passed in an identical manner through the right retropubic skin incision and was guided along the posterior aspect of the right pubic tubercle. It was guided into the vaginal incision with an index finger. The anterior sulci were examined very carefully to ensure that they had not been damaged by passage of the trocar, and they were found to be intact. The Lyn catheter was removed in preparation for cystoscopy. The 17 Khmer cystoscope with the [address] was passed per urethra into the bladder and panendoscopy demonstrated an absence of mucosal defects within the bladder, the bladder neck, and the urethra. The ureteral orifices are in normal position. Clear urine is seen effluxing through both orifices. The external indentation from both retropubic trocars is identified. The bladder was not disrupted by passage of the trocars. The bladder was drained of all fluid and the cystoscope was removed. The Lyn catheter was replaced. The sling was threaded through the eyelet of the left-sided trocar which was subsequently removed, thereby positioning the left side of the sling. The right side of the sling was threaded through the eyelet of the right-sided trocar which was also removed, thereby positioning the right side of the sling. The sling was tightened over the level of the mid urethra using a hemostat as a spacer. The excess sling material was excised from each retropubic skin incision and these incisions were closed using Exofin. Of note, the incisions and the sling were irrigated copiously throughout the procedure with antibiotic solution containing both bacitracin and gentamicin. The vaginal incision was closed in 2 layers. The submucosa was closed with a horizontal mattress 4 0 Vicryl stitch and the mucosa was closed with running 2 0 Vicryl. The Lyn catheter was removed. The patient tolerated the procedure extremely well. She was extubated and taken to the recovery room in excellent condition. Plan: The patient will undergo a void trial in the recovery room and postvoid residual will be checked with the bladder scanner. She is given a prescription for Cipro and for Manito. The patient will follow up in the office in [address] [facility] Comment on above: Result Comment: Elec tronically Signed By: GABBY RAMIREZ, HAMILTON\.br\Date and Time Signed: 07/22/24 10:26 EST Outpatient Surgery Discharge Instructionon 07-22-2024 Outpatient Surgery Discharge Instruction Outpatient Surgery Discharge Instruction [place] [id number] Patient Discharge Instructions PERSON INFORMATION Name: RAIN SWEENEY Date of : 1960 Current Date: 07/22/2024 10:28:02 PHYSICIANS Admitting Physician: HAMILTON MALONE MD Discharge Diagnosis: RAIN SWEENEY has been given the following list of follow-up instructions, prescriptions, and patient education materials: PATIENT FOLLOW-UP INFORMATION Diet: Regular Discharge Activity: Ambulate as tolerated, Expect minimal amount of drainage and/or bleeding Discharge Restrictions: No driving for 24 hrs Call Your Doctor For: Persistent or heavy bleeding, Temperature above 101.5 degrees Wound Care Instructions: Remove dressing as instructed Additional Instructions: Normal sexual intercourse for 4 to 6 weeks, no vigorous exercise for 4 to 6 weeks. Hydrate vigorously with 2 L of water per day. Pain control with Tylenol and Motrin. Take Roxicodone for breakthrough. Ambulate. Follow-up in 2 weeks in the office. IF UNABLE TO CONTACT YOUR PHYSICIAN AND YOU FEEL IT IS AN EMERGENCY, GO TO THE NEAREST EMERGENCY ROOM OR CALL [phone] PATEL Colin LINDA JOY, have received the attached patient education materials/instructio ns and have verbalized understanding: May we do a follow up call? Yes No I was present when discharge instructions were given Patient Signature Date Clinican/Nurse Signature Date Follow up: With: Address: When: HAMILTON MALONE [address] [place] [address] [phone] Business (1) Comments: 2 weeks Pharmacy Information: You may receive a survey from [employer] asking you to rate your care experience. Your feedback is important and will help us understand what we do well and how we can improve the quality of care we provide to you, your loved ones and our community. It???s an honor to serve you. Thank you for choosing [facility] HERE ARE THE MEDICATION CHANGES THAT OCCURRED DURING YOUR HOSPITAL STAY New Medications [id number], [address] [facility] [place], [place] [id number], [phone] docusate (Colace 50 mg oral capsule) 1 Capsules By Mouth 2 times a day as needed for constipation. Refills: 0. oxycodone (Roxicodone 5 mg Tab) 1 Tablets By Mouth every 6 hours as needed for pain. Refills: 0. sulfamethoxazole-tri methoprim (Bactrim D.S. 800 mg-160 mg Tab) 1 Tablets By Mouth 2 times a day for 5 Days. Refills: 0. Medications to Continue Taking That Have Changed Other Medications START: venlafaxine 225 Milligram By Mouth every day. as directed. Medications to Continue with No Changes Other Medications lithium (lithium 300 mg oral tablet) 3 Tablets By Mouth at bedtime. omeprazole (omeprazole 20 mg Cap-DR) 1 Capsules By Mouth every day. oxcarbazepine (oxcarbazepine 300 mg Tab) 1 Tablets By Mouth every day. tretinoin topical (tretinoin Top 0.1% Crm) 1 Application Topical once a day (at bedtime). PATIENT EDUCATION INFORMATION Instructions: [place], [place] Ambrose Dorantes M.D. TVT DISCHARGE INSTRUCTIONS The following instructions must be followed very closely: 1. If you need pain pills, start before pain becomes intense. Antibiotics and pain pills are frequently less upsetting to your stomach if you take them with food such as crackers or bread. 2. If you are having excessive or persistent pain, swelling, bleeding, nausea, vomiting, or any other problems you should FIRST call your surgeon for advice. If you are unable to contact your surgeon, seek help from a hospital emergency room. If you were given drugs to make you drowsy and/or pain medication, follow these instructions: 1. You should spend the remainder of the day and evening resting. 2. You should not attempt to walk, including going to the bathroom, without assistance. You may be lightheaded from the medications you received. 3. Eat light today to avoid nausea. You should be able to return to your normal diet 24-36 hours after surgery. 4. For the next 24 hours you should not consume alcohol, attempt to drive, use any power tools, sign important documents or make personal or business decisions. After that do so only if you feel perfectly normal and alert. 5. Follow carefully any verbal or written instructions your surgeon may have given you. Surgeon???s Phone number: [phone] Surgeon???s Written Instructions: 1. During the daytime hours empty your leg bag every 3-4 hours. 2. No lifting over 10 pounds for 6 weeks. 3. There is no restriction regarding use of stairs. 4. You may drive (more content not included)... Normal [facility] Ambulatory Visit Summaryon 1 09-04-2023 Ambulatory Visit Summary Ambulatory Visi t Summary RAIN SWEENEY :1960 Visit Date:07/05/2024 Ambulatory Visit Instructions Your Diagnosis Bladder neoplasm of uncertain malignant potential Stress incontinence Urethral caruncle Atrophic vaginitis Cystocele with rectocele Your Care Team Attending Physician - GABBY RAMIREZ, HAMILTON Primary Care Physician - SEB BARRY MD [...] Follow-Up Appointments Friday 10:00 AM EST Where: [facility] 2023 8:00 AM EST Where: [facility] You Need to Schedule the [...] including vitamins, herbs, eye drops, creams, and cpyz-lne-jekdvao medicines. ??? Any problems you or family [...] foods, such (more content not included)... Normal [facility] Reminderson 07-05-2024 Reminders Reminders - From: Dorothy Castro To: SERENA Maharaj; Sent: 07/05/2024 10:04:30 EST Show up: 08/04/2024 10:04:00 EST Subject: Cysto Due Date/Time: 08/04/2024 10:04:00 EST Reminder Message Cysto in 3 mos. Normal [facility] Urology Office/Clinic Noteon 07-05-2024 Urology Office/Clinic Note Urology Office/Clinic Note Chief Complaint follow up HPI Staff 63 year old female here [...] with voice recognition artificial intelligence software, specifically [employer], [employer] and or [employer]. Substitutions may have occurred due to the [...] bladder b (more content not included)... Normal [facility] Comment on above: Result Comment: Elec tronically Signed By: HAMILTON MALONE MD\.br\Date and Time Signed: 07/05/24 10:33 EST\.br\Electronically Co-Signed By: Dorothy Castro\.br\Date and Time Co-Signed: 07/05/24 10:14 EST Surgical Pathology Reporton 07-01-2024 Surgical Pathology Report [facility] [address] [place] [address]- Surgical Pathology Report Collected Date/Time: 06/24/2024 08:47 EST Pathologist: Dudley RAMIREZ PhD, Laurel Osorio Received Date/Time: 06/24/2024 09:27 EST GABBY RAMIREZ, NKANSAH-AMHAMILTON GIRALDO MD 07 Surgical Pathology Report - 07/01/2024 12:33 [...] is entirely submitted in one cassette. (DC) DC:MCA Microscopic Description Microscopic examination performed unless gross only specified. The use of one or more reagents in the above tests is regulated as an analyte specific reagent (ASR). The test or tests are ordered following initial H&E microscopic examination. The performance characteristics were determined by the Laboratory of [facility] Surgical Pathology. They have not been [...] recognition technology and might contain unintended computerized field care coordinator errors. Normal [facility] Comment on above: Performed By: #### [id number] #### [facility] Laboratory [address] [place] [address] Performed By: #### [id number] ####[facility] [address] [place] [address] Main OR Intraoperative Recor don 06-25-2024 Main OR Intraoperative Record Main OR Intraoperative Record IntraOp Document Type FT Summary Primary Physician: HAMILTON MALONE MD Finalized Date/Time: 06/25/24 10:12:31 Pt. Name: RAIN SWEENEY /Sex: 1960 Female Med Rec #: [id number] Physician: HAMILTON MALONE MD Financial #: [id number] Pt. Type: A Room/Bed: [place] [address] Admit/Disch: 06/24/24 06:38:13 - 06/24/24 10:15:00 Institution: Case Times FT Entry 1 Patient Times In Room 06/24/24 08:25:00 Out Room 06/24/24 08:46:00 Procedure Times Start 06/24/24 08:33:00 Stop 06/24/24 08:38:00 Anesthesia Times Start 06/24/24 08:25:00 Stop 06/24/24 08:46:00 Last Modified By: Flash SUNG, Amina Reyes 06/24/24 08:49:24 General Comments: 06/25/24 Chart opened to review and send charges [employer] Case Attendance FT Entry 1 Entry 2 Entry 3 Case Attendee Shannen SEARS, Azam MALONE MD, Mey SUNG, Dolores Cooney Role Performed Anesthesiologist Surgeon - Primary Industrial Machine System Technician - Primary Independent Freight Agent Time In 06/24/24 08:25:00 06/24/24 08:32:00 06/24/24 08:25:00 Time Out 06/24/24 08:46:00 06/24/24 08:39:00 06/24/24 08:46:00 Procedure CYSTOSCOPY TURB(.) CYSTOSCOPY TURB(.) CYSTOSCOPY TURB(.) Comments DR. AGUILAR SUPERVISING Last Modified By: Flash RN, Amina Vidales RN, Amina Vidales RN, Amina Reyes 06/24/24 08:57:51 06/24/24 08:57:51 06/24/24 08:57:51 Entry 4 Entry 5 Entry 6 Case Attendee Flash SUNG, Amina Delaney, Checo Perales Role Performed Industrial Machine System Technician - Primary Scrub - Primary Staff - Other Time In 06/24/24 08:25:00 06/24/24 08:25:00 06/24/24 08:40:00 Time Out 06/24/24 08:46:00 06/24/24 08:46:00 06/24/24 08:46:00 Procedure CYSTOSCOPY TURB(.) CYSTOSCOPY TURB(.) CYSTOSCOPY TURB(.) Comments ROOM TURNOVER HELP Last Modified By: Amina Vidales RN, RN, Leann E Ott RN, Leann E 06/24/24 08:57:51 06/24/24 08:57:51 06/24/24 08:57:51 Perioperative [...] WITH FLUGURATION Primary Procedure Yes Primary Surgeon GABBY RAMIREZ, HAMILTON Start 06/24/24 08:33:00 Stop 06/24/24 08:38:00 Anesthesia [...] and tissue Entry 1 Skin Integrity Intact, [place], Warm, & Skin Abnormality No Dry Outcomes Met? Yes Last Modified By: Amina Vidales RN 06/24/24 08:52:26 Post-Care Text: The patient is free from signs and symptoms of injury caused by extraneous objects Patient Positioning FT Pre-Care Text: Identifies physical alterations that require additional preca (more content not included)... Normal [facility] Discharge Instructionson Discharge Instructions Discharge Instructions RAIN [...] in 2 weeks Where: [address] [place] [address] [phone] Business (1) Medications What How Much When Instructions Next Dose New phenazopyridine (Pyridium 100 mg Tab) 1 Tablets By Mouth 3 times a day Duration: 3 Days Pickup at [facility]/pharmacy #[id number] Unchanged lithium (lithium 300 mg oral tablet) 3 Tablets By Mouth At bedtime Unchanged omeprazole (omeprazole 20 mg Cap-DR) 1 Capsules By Mouth Every day Unchanged oxcarbazepine (oxcarbazepine 300 mg Tab) 1 Tablets By Mouth Every day Unchanged tretinoin topical (tretinoin Top 0.1% Crm) 1 Application Topical Once a day (at bedtime) Unchanged venlafaxine as directed Pharmacy Information [facility]/pharmacy #[id number]: [address], [place] [id number] [phone] Education Materials Cystoscopy ??? Voiding after the [...] completing your survey. Thank you for choosing [facility]. Veto Award Nomination The VETO [...] signed up for this yet, please contact [employer] at [phone] to get signed up today. Patient (more content not included)... Normal [facility] Comment on above: Result Comment: Elec tronically Signed By: Chayo SUNG, Reed Brandon\.br\Date and Time Signed: 06/24/24 08:53 EST Inpatient Patient Summaryon 06-24-2024 Inpatient Patient Summary Inpatient Patient Summary [place] [id number] [facility] Clinical Discharge Instructions PERSON INFORMATION Name: RAIN SWEENEY [facility]#:[id number] PHYSICIANS Admitting Physician: GABBY RAMIREZ, HAMILTON Attending Physician: HAMILTON MALONE MD PCP: SEB BARRY MD Diagnosis: Comment: PATIENT EDUCATION INFORMATION Instructions: Medication [...] day (at bedtime). venlafaxine as directed. Comment: [facility] Main OR PACU I Recordon 06-11 Main OR PACU I Record Main OR PACU I Record PACU Phase I Document Type FT Summary Primary Physician: HAMILTON MALONE MD Finalized Date/Time: 06/24/24 09:24:28 Pt. Name: RAIN SWEENEY/Sex: 1960 Female Med Rec #: [id number] Physician: HAMILTON MALONE MD Financial #: [id number] Pt. Type: A Room/Bed: [place] [address] Admit/Disch: 06/24/24 06:38:13 - Institution: Case Times [...] Signed By: Carli Good RN 06/24/24 09:[address] [facility] Main OR PACU II Recordon Main OR PACU II Record Main OR PACU II Record PACU Phase II Document Type FT Summary Primary Physician: HAMILTON MALONE MD Finalized Date/Time: 06/24/24 10:19:29 Pt. Name: RAIN SWEENEY/Sex: 1960 Female Med Rec #: [id number] Physician: HAMILTON MALONE MD Financial #: [id number] Pt. Type: A Room/Bed: [facility] Admit/Disch: 06/24/24 06:38:13 - Institution: Case Times [...] PACU 06/24/24 10:15:00 II Last Modified By: Reed Domingo RN 06/24/24 10:19:27 Post-Care Text: The patient demonstrates [...] Signed By: Reed Domingo RN 06/24/24 10:[address] [facility] Main OR Preoperative Recordo n 06-24-2024 Main OR Preoperative Record Main OR Preoperative Record PreOp Document Type FT Summary Primary Physician: HAMILTON MALONE MD Finalized Date/Time: 06/24/24 08:58:11 Pt. Name: RAIN SWEENEY/Sex: 1960 Female Med Rec #: [id number] Physician: HAMILTON MALONE MD Financial #: [id number] Pt. Type: A Room/Bed: [facility]10/09 Admit/Disch: 06/24/24 06:38:13 - Institution: Case Times [...] By: Amina Vidales RN 06/24/24 08:58 Normal [facility] Operative Reporton Operative Report Operative Report Patient: [...] in the room agreed. A well-lubricated 22 Khmer cystoscopic sheath with a 30 degree lens [...] 2 weeks discuss pathology, next steps Normal [facility] Comment on above: Result Comment: Elec tronically Signed By: GABBY RAMIREZ, HAMILTON\.br\Date and Time Signed: 06/24/24 08:47 EST Outpatient Surgery Discharge Instructionon 06-24-2024 Outpatient Surgery Discharge Instruction Outpatient Surgery Discharge Instruction [place] [id number] Patient Discharge Instructions PERSON INFORMATION Name: PATEL RAIN CRABTREE Date of : 1960 Current Date: 06/24/2024 08:04:49 PHYSICIANS Admitting Physician: HAMILTON MALONE MD Discharge Diagnosis: RAIN SWEENEY has been given the following list of follow-up instructions, prescriptions, and patient education materials: IF UNABLE TO CONTACT YOUR PHYSICIAN AND YOU FEEL IT IS AN EMERGENCY, GO TO THE NEAREST EMERGENCY ROOM OR CALL 911 PATEL Colin LINDA JOY, have received the attached patient education materials/instructio ns and have verbalized understanding: May we do a follow up call? Yes No I was present when discharge instructions were given Patient Signature Date Clinican/Nurse Signature Date Follow up: Pharmacy Information: You may receive a survey from [employer] asking you to rate your care experience. Your feedback is important and will help us understand what we do well and how we can improve the quality of care we provide to you, your loved ones and our community. It???s an honor to serve you. Thank you for choosing [facility] HERE ARE THE MEDICATION CHANGES THAT [...] PATIENT EDUCATION INFORMATION Instructions: Medication Leaflets: Normal [facility] XR Chest 2 Viewson XR Chest 2 [...] mGy = . DAP = . Normal [facility] BMPon 06-18-2024 Anion gap [Moles/Vol] 11 mmol/L Normal 6-16 [facility] Comment on above: Performed By: #### 2 [id number] #### [facility] Laboratory [address] [place] [address] Calcium [Mass/Vol] 8.7 mg/dL Low 8.9-11.1 [facility] Comment on above: Performed By: #### 2 [id number] #### [facility] Laboratory [address] [place] [address] Chloride [Moles/Vol] 105 mmol/L Normal 101-111 [facility] Comment on above: Performed By: #### 2 [id number] #### [facility] Laboratory [address] [place] [address] CO2 [Moles/Vol] 26 mmol/L Normal 21-[address] [facility] Comment on above: Performed By: #### 2 [id number] #### [facility] Laboratory [address] [place] [address] Creatinine [Mass/Vol] 1.0 mg/dL Normal 0.5-1.3 [facility] Comment on above: Performed By: #### 2 [id number] #### [facility] Laboratory [address] [place] [address] Glucose [Mass/Vol] 89 mg/dL Normal 55-199 [facility] Comment on above: Performed By: #### 2 [id number] #### [facility] Laboratory [address] [place] [address] Potassium [Moles/Vol] 4.0 mmol/L Normal 3.5-5.3 [facility] Comment on above: Performed By: #### 2 [id number] #### [facility] Laboratory [address] [place] [address] Sodium [Moles/Vol] 138 mmol/L Normal 135-145 [facility] Comment on above: Performed By: #### 2 [id number] #### [facility] Laboratory [address] [place] [address] Urea nitrogen [Mass/Vol] 18 mg/dL Normal 5-21 [facility] Comment on above: Performed By: #### 2 [id number] #### [facility] Laboratory [address] [place] [address] Urea nitrogen/Creatinine [Mass ratio] 18 No Units Normal 10-20 [facility] Comment on above: Performed By: #### 2 [id number] #### [facility] Laboratory [address] [place] [address] CBC w/ Auto Diffon 4 Basophils/100 WBC (Bld) 0.9 % Normal 0.0-2.0 F [facility] Comment on above: Performed By: #### 2 [id number] #### [facility] Laboratory [address] [place] [address] Basophils/Leukocytes Auto (Bld) [Pure # fraction] 0.1 E9/L Normal 0.0-0.2 [facility] Comment on above: Performed By: #### 2 [id number] #### [facility] Laboratory [address] [place] [address] Eosinophils (Bld) [#/Vol] 0.3 E9/L Normal 0.0-0.5 [facility] Comment on above: Performed By: #### 2 [id number] #### [facility] Laboratory [address] [place] [address] Eosinophils/100 WBC (Bld) 4.5 % Normal 0.0-8.0 [facility] Comment on above: Performed By: #### 2 [id number] #### [facility] Laboratory [address] [place] [address] Erythrocyte distribution width (RBC) [Ratio] 15.1 % High 10.9-14.2 [facility] Comment on above: Performed By: #### 2 [id number] #### [facility] Laboratory [address] [place] [address] Hematocrit (Bld) [Volume fraction] 46.2 % High 34.0-46.0 [facility] Comment on above: Performed By: #### 2 [id number] #### [facility] Laboratory [address] [place] [address] Hemoglobin (Bld) [Mass/Vol] 15.4 g/dL Normal 12.0-16.0 [facility] Comment on above: Performed By: #### 2 [id number] #### [facility] Laboratory [address] [place] [address] Lymphocytes (Bld) [#/Vol] 2.2 E9/L Normal 1.0-4.0 [facility] Comment on above: Performed By: #### 2 [id number] #### [facility] Laboratory [address] [place] [address] Lymphocytes/100 WBC (Bld) 28.8 % Normal 14.0-50.0 [facility] Comment on above: Performed By: #### 2 [id number] #### [facility] Laboratory [address] [place] [address] MCH (RBC) [Entitic mass] 29.8 pg Normal 27.0-34.0 [facility] Comment on above: Performed By: #### 2 [id number] #### [facility] Laboratory [address] [place] [address] MCHC (RBC) [Mass/Vol] 33.2 g/dL Normal 31.4-36.0 [facility] Comment on above: Performed By: #### 2 [id number] #### [facility] Laboratory [address] [place] [address] MCV (RBC) [Entitic vol] 89.5 fL Normal 80.0-100.0 F [facility] Comment on above: Performed By: #### 2 [id number] #### [facility] Laboratory [address] [place] [address] Monocytes (Bld) [#/Vol] 0.7 E9/L Normal 0.2-1.0 F [facility] Comment on above: Performed By: #### 2 [id number] #### [facility] Laboratory [address] [place] [address] Neutrophils (Bld) [#/Vol] 4.3 E9/L Normal 2.0-7.5 [facility] Comment on above: Performed By: #### 2 [id number] #### [facility] Laboratory [address] [place] [address] Neutrophils/100 WBC (Bld) 56.9 % Normal 36.0-75.0 [facility] Comment on above: Performed By: #### 2 [id number] #### [facility] Laboratory [address] [place] [address] Platelet mean volume (Bld) [Entitic vol] 8.4 fL Normal 6.4-10.8 [facility] Comment on above: Performed By: #### 2 [id number] #### [facility] Laboratory [address] [place] [address] Platelets (Bld) [#/Vol] 265.0 E9/L Normal 150.0-500.0 [facility] Comment on above: Performed By: #### 2 [id number] #### [facility] Laboratory [address] [place] [address] RBC (Bld) [#/Vol] 5.2 E12/L Normal 4.3-5.9 [facility] Comment on above: Performed By: #### 2 [id number] #### [facility] Laboratory [address] [place] [address] WBC corrected for nucl RBC Auto (Bld) [#/Vol] 7.5 E9/L Normal 4.0-11.[address] [facility] Comment on above: Performed By: #### 2 [id number] #### [facility] Laboratory [address] [place] [address] CHEMISTRYOrdered By: SYSTEM SYSTEM on 06-18-2024 Anion [...] 30.9 s Normal 25.1 - 36.5 second(s) [facility] Auto Coag Comment on above: Interpretive Data: Eros mckeon 15 days - 4 weeks 1 - 5 months 6 - 11 months 1 - 5 years 6 - 10 years 11 - 17 years PTT Mean: 35.4 (27.6-45.6) Mean: 33.5 (24.8-40.7) Mean: 32.4 (25.1-40.7) Mean: 31.6 (24.0-39.2) Mean: 31.6 (26.9-38.7) Mean: 31.0 (24.6-38.4) Pediatric Reference ranges were obtained from a study by Ethan Caruthers, et al. prepared from 1437 samples obtained at 7 different centers using the same coagulation reagent and instrumentation as [facility]. Currently there are no coagulation studies available worldwide for children to 14 days, and no normal ranges. Heparin therapeutic range (represented by Anti-Factor Xa activity of 0.2 - 0.4 U/mL) corresponds to PTT of 56.6 - 109.0 sec. INR Coag (PPP) [Relative time] 1.02 {INR} Invalid Interpretation Code [facility] Comment on above: Interpretive Data: I NR results are specifically intended to assess patients stabilized on long-term Anticoagulation therapy suggested INR s Less Intensive Anticoagulation 2.0 3.0 Conventional Range 3.0 4.5 PT Coag (PPP) [Time] 11.4 s Normal 9.4 - 1 2.5 second(s) [facility]ag Comment on above: Interpretive Data: [...] the same coagulation reagent and instrumentation as [facility]. Currently there are no coagulation studies available [...] Coag (PPP) [Time] 30.9 second(s) Normal 25.1-36.5 [facility] Comment on above: Result Comment: Para meter [...] the same coagulation reagent and instrumentation as [facility]. Currently there are no coagulation studies available worldwide for children to 14 days, and no normal ranges. Heparin therapeutic range (represented by Anti-Factor Xa activity of 0.2 - 0.4 U/mL) corresponds to PTT of 56.6 - 109.0 sec. Performed By: #### 1 [id number] ####[facility] [address] [place] [address] INR Coag (PPP) [Relative time] 1.02 {INR} Invalid Interpretation Code [facility] Comment on above: Result Comment: INR results are specifically intended to assess patients stabilized on long-term Anticoagulation therapy suggested INR???s ???Less Intensive Anticoagulation??? 2.0 ??? 3.0 Conventional Range 3.0 ??? 4.5 Performed By: #### 1 [id number] ####[facility] [address] [place] [address] PT Coag (PPP) [Time] 11.4 second(s) Normal 9.4-12.5 [facility] Comment on above: Result Comment: 15 d [...] the same coagulation reagent and instrumentation as [facility]. Currently there are no coagulation studies available worldwide for children to 14 days, and no normal ranges. Performed By: #### 1 [id number] ####[facility] [address] [place] [address] UA with Cult Rflxon 06-18-20 24 Bilirubin Ql (U) Negative Normal Negative [facility] Comment on above: Performed By: #### 4 [id number] #### [facility] Laboratory [address] [place] [address] Clarity (U) Clear Normal Clear [facility] Comment on above: Performed By: #### 4 [id number] #### [facility] Laboratory [address] [place] [address] Color (U) Colorless Abnormal Yellow [facility] Comment on above: Result Comment: Micr oscopic readings are only performed on those samples that meet specific criteria set forth by [facility] Laboratory. Performed By: #### 4 [id number] #### [facility] Laboratory [address] [place] [address] Glucose Ql (U) Negative Normal Negative [facility] Comment on above: Performed By: #### 4 [id number] #### [facility] Laboratory [address] [place] [address] Hemoglobin Auto test strip (U) [Mass/Vol] Trace Abnormal Negative [facility] Comment on above: Performed By: #### 4 [id number] #### [facility] Laboratory [address] [place] [address] Ketones Auto test strip Ql (U) Negative Normal Negative [facility] Comment on above: Performed By: #### 4 [id number] #### [facility] Laboratory [address] [place] [address] Leukocyte esterase Auto test strip Ql (U) Negative Normal Negative [facility] Comment on above: Performed By: #### 4 [id number] #### [facility] Laboratory [address] [place] [address] Nitrite Auto test strip Ql (U) Negative Normal Negative [facility] Comment on above: Performed By: #### 4 [id number] #### [facility] Laboratory [address] [place] [address] pH (U) 6.0 [pH] Invalid Interpretation Code 5.0-9.0 [facility] Comment on above: Performed By: #### 4 [id number] #### [facility] Laboratory [address] [place] [address] Protein Ql (U) Negative Normal Negative [facility] Comment on above: Performed By: #### 4 [id number] #### [facility] Laboratory [address] [place] [address] Specific gravity (U) [Rel density] 1.005 Invalid Interpretation Code 1.005-1.030 [facility] Comment on above: Performed By: #### 4 [id number] #### [facility] Laboratory [address] [place] [address] Urobilinogen (U) [Mass/Vol] Negative Normal Negative [facility] Comment on above: Performed By: #### 4 [id number] #### [facility] Laboratory [address] [place] [address] Type of Urine collection method Clean Catch Normal [facility] Comment on above: Performed By: #### 4 [id number] #### [facility] Laboratory [address] [place] [address] URINALYSISOrdered By: SYSTEM SYSTEM on 06-18-2024 Bilirubin Ql (U) Negative Normal Negativemg/ d L [facility] UA Auto SS Clarity (U) Clear (06/18/24 3:58 PM) Normal Clear [facility] UA Auto SS Color (U) Colorless 1 *ABN* (06/18/24 3:58 PM) Invalid Interpretation Code Yellow [facility] UA Auto SS Comment on above: Interpretive Data: M icroscopic readings are only performed on those samples that meet specific criteria set forth by [facility] Laboratory. Glucose Ql (U) Negative Normal Negativemg/d [...] Desc Clean Catch (06/18/24 3:58 PM) Normal FT UA Auto SS eGFRon 06-18-2024 eGFR 64 mL/min/1.73 m2 Normal >=59 [facility] Comment on above: Performed By: #### 1 [id number] #### [facility] Laboratory [address] [place] [address] Ambulatory Visit Summaryon 1 08-11-2023 Ambulatory Visit Summary Ambulatory Visi t Summary RAIN SWEENEY :1960 Visit Date:06/11/2024 Ambulatory Visit Instructions Your Diagnosis Stress incontinence Bladder neoplasm of uncertain malignant potential Atrophic vaginitis Urethral caruncle Cystocele with rectocele Your Care Team Attending Physician - GABBY RAMIREZ, HAMILTON Primary Care Physician - SEB BARRY MD [...] Follow-Up Appointments Friday 3:30 PM EST Where: [facility] 2023 9:00 AM EST Where: [facility] You Need to Schedule the [...] including vitamins, herbs, eye drops, creams, and [id number]-aiqgbua medicines. ??? Any problems you or family [...] to nguyen (more content not included)... Normal [facility] Urology Office/Clinic Noteon 06-11-2024 Urology Office/Clinic Note [...] times per week. SE discussed. Sent to [facility] Suhail. 4. Urethral caruncle (N36.2: Urethral caruncle) See [...] to this. Follow-up With When Contact Information HAMILTON MALONE MD, URL Additional Instructions: schedule cysto with bladder tumor bx Patient Education Injection Treatments for Urinary Incontinence Shahla Espinoza, personally scribed for Dr. Hamilton Malone on 06/11/2024 10:15:05. . Portions of this record may have been created with voice recognition artificial intelligence software, specifically [employer] and or [employer]. Substitutions may have occurred due to the inherent limitations of voice recognition and artificial intelligence software. Documentation recorded by the scribe, Shahla Evans, accurately reflects the services(s) I performed and decisions made by me. Authenticated by Dr. Malone on 06/11/2024 10:32:41. Problem List/Past Medic (more content not included)... Normal [facility] Comment on above: Result Comment: Elec tronically Signed By: HAMILTON MALONE MD\.br\Date and Time Signed: 06/11/24 10:33 EDT\.br\Electronically Co-Signed By: Shahla Evans.br\Date and Time Co-Signed: 06/11/24 10:15 EDT Laboratory - Chemistry and C hemistry - challengeon 06-04-2024 Bilirubin Ql (U) Negative [facility] Glucose (U) [Mass/Vol] Negative [facility] Ketones Ql (U) Negative [facility] pH (U) 5 [pH] [facility] Specific gravity (U) [Rel density] 1.000 [facility] Urobilinogen (U) [Mass/Vol] 0.2 mg/dL [facility] Laboratory - Specimen inform ationon 06-04-2024 Appearance (U) cloudy [facility] Color (U) alvin [facility] Laboratory - Urinalysison Leukocyte esterase Test strip Ql (U) ++ [facility] Nitrite Ql (U) Negative [facility] Protein Ql (U) Negative [facility] No Panel Informationon 06-04 Urine Occult Blood +++ [facility] Urine Cultureon 06-04-2024 Bacteria identified Cx Nom (U) ORGANISM: Klebsiella pneumoniae (O:KLEPNE) [place] Count >100,000 Aerobic ILANA Charge ([id number]) ----- [...] RESISTANT TO ALL B-LACTAM DRUGS. PERFORMED BY: [place] [address] PATHOLOGIST COMMERCIAL SINGER ALEXEI COLE M.D. Normal The Replaced By [facility] Comment on above: Performed By: #### C UU #### [address] Urine cultureOrdered By: Gabriela Barry on 06-04-2024 Bacteria identified Cx Nom (U) Abnormal [facility] Urology Office/Clinic Noteon 05-28-2024 Urology Office/Clinic [...] E&M of New Patient Moderate 45-59 Min [id number] Orders: ciprofloxacin, See Instructions, 1 tab po day prior to cysto, 1 tab po following cysto, # 2 tab(s), Refills(s) 0, Pharmacy: [id number], 170, cm, 05/25/24 10:38:00 EDT, Height/Length Dosing, 84, kg, 05/25/24 10:38:00 EDT, Weight Dosing Follow-up With When Contact Information [facility] 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 Normal [facility] Comment on above: Result Comment: Elec tronically Signed By: KARON FLORES PA-C\.br\Date and Time Signed: 05/28/24 14:13 EDT Cholesterol in LDL Calc [Mas s/Vol]on 05-26-2024 Cholesterol in LDL [Mass/Vol] 160.0 mg/dL [facility] Comment on above: <100 mg/dl [id number] 0-129 mg/dl NEAR OR ABOVE [id number] mg/dl BORDERLINE [id number] mg/dl HIGH>190 mg/dl VERY HIGH Cholesterol in LDL [Mass/Vol] Cholesterol in LDL [Mass/volume] in Serum or Plasma by calculation [facility] Comment on above: <100 mg/dl [id number] 0-129 mg/dl NEAR OR ABOVE [id number] mg/dl BORDERLINE [id number] mg/dl HIGH>190 mg/dl VERY HIGH Cholesterol in VLDL Calc [Ma ss/Vol]on 05-26-2024 Cholesterol in VLDL [Mass/Vol] 41.0 mg/dL [facility] Cholesterol in VLDL [Mass/Vol] Cholesterol in VLDL [Mass/volume] in Serum or Plasma by calculation [facility] Estimated glomerular filtrat ion rate (GFR) non- Americanon 05-26-2024 GFR/1.73 sq M.predicted among non-blacks MDRD (S/P/Bld) [Vol rate/Area] 44 mL/min/{1.73_m2} Low >=60 mL/min/1.73m 2 [facility] GFR/1.73 sq M.predicted among non-blacks MDRD (S/P/Bld) [Vol rate/Area] Estimated glomerular filtration rate (GFR) non- Low >=60 mL/min/1.73m 2 [facility] Globulin Calc (S) [Mass/Vol] on 05-26-2024 Globulin (S) [Mass/Vol] 4.3 g/dL [facility] Globulin (S) [Mass/Vol] Serum globulin measurement by calculation (mass/volume) [facility] Laboratory - Chemistry and C hemistry - challengeon 05-26-2024 Albumin [Mass/Vol] 3.5 g/dL 3.4-5.0 [facility] ALP [Catalytic activity/Vol] 110 U/L 46-116 [facility] ALT [Catalytic activity/Vol] 21 U/L 14-59 [facility] AST [Catalytic activity/Vol] 14 U/L Low 15-37 [facility] Bilirubin [Mass/Vol] 0.2 mg/dL 0.2-1.0 [facility] Bilirubin.direct [Mass/Vol] 0.1 mg/dL 0.0-0.2 [facility] Cholesterol [Mass/Vol] 281 mg/dL High <=200 [facility] Cholesterol in HDL [Mass/Vol] 80 mg/dL High 40-60 [facility] Comment on above: > or =60 mg/dl - LOW CARDIOVASCULAR RISK<40 mg/dl - HIGH CARDIOVASCULAR RISK Creatinine [Mass/Vol] 1.24 mg/dL High 0.55-1.02 [facility] GFR/1.73 sq M.predicted MDRD (S/P/Bld) [Vol rate/Area] 53 mL/min/{1.73_m2} Low >=60 mL/min/1.73m 2 [facility] Glucose [Mass/Vol] 110 mg/dL High 74-106 [facility] Protein [Mass/Vol] 7.8 g/dL 6.4-8.2 [facility] Triglyceride [Mass/Vol] 205 mg/dL High <=150 [facility] TSH Qn 1.756 m[IU]/L 0.358-3.740 [facility] Urea nitrogen [Mass/Vol] 16.0 mg/dL 7.0-18.0 [facility] No Panel Informationon 05-26 [place] Level 0.6 mmol/L 0.5-1.2 [facility] Comment on above: A concentration of 0 .5-0.8 mmol/L is advised for long-termuse; concentrations of up to 1.2 mmol/L may be necessaryduring acute treatment. Detection Limit = 0.1 <0.1 indicates None DetectedPerformed at: CB - [facility] [address] [id number] Director: Reji Williamson PhD, Phone: [phone] Serum or plasma albumin/glob ulin mass ratioon 05-26-2024 Albumin/Globulin [Mass ratio] 0.8 {ratio} [facility] Albumin/Globulin [Mass ratio] Serum or plasma albumin/globulin mass ratio [facility] Serum or plasma total choles terol/high density lipoprotein (HDL) cholesterol mass yoselyn 05-26-2024 Cholesterol.total/Choles terol in HDL [Mass ratio] 3.5 {ratio} [facility] Comment on above: 3.3 - 4.4 LOW RISK4. 4 - 7.1 AVERAGE RISK7.1 - 11.0 MODERATE RISK>11.0 HIGH RISK Cholesterol.total/Choles terol in HDL [Mass ratio] Serum or plasma total cholesterol/high density lipoprotein (HDL) cholesterol mass rat [facility] Comment on above: 3.3 - 4.4 LOW RISK4. 4 - 7.1 AVERAGE RISK7.1 - 11.0 MODERATE RISK>11.0 HIGH RISK Ambulatory Visit Summaryon 1 Ambulatory Visit Summary Ambulatory Visi t Summary RAIN SWEENEY :1960 Visit Date:05/25/2024 Ambulatory Visit Instructions Your Diagnosis Incontinent of urine Your Care Team Attending Physician - MARK CARLTON, KARON Reyes Primary Care Physician - SEB BARRY MD [...] including vitamins, herbs, eye drops, creams, and rvrs-jnf-ebwshhw medicines. ? Any problems you or family [...] tells you to take them. ? Taking wkiq-ukz-bohqbak medicines, vitamins, herbs, and supplements. Surgery safety Ask your health care provider: ? How your surgery site will be marked. ? What steps will be taken to help prevent infection. These steps may include: ? Removing hair at the surgery site. ? Washing skin wi (more content not included)... Normal [facility] Laboratory - Chemistry and C hemistry - challengeon 05-19-2024 Bilirubin Ql (U) Negative [facility] Glucose (U) [Mass/Vol] Negative [facility] Ketones Ql (U) Negative [facility] pH (U) 7.0 [pH] [facility] Specific gravity (U) [Rel density] 1.010 [facility] Urobilinogen (U) [Mass/Vol] 0.2 mg/dL [facility] Laboratory - Microbiology an d Antimicrobial susceptibilityOrdered By: Adamaris Hill on 05-19-2024 Bacteria identified Cx Nom (U) Klebsiella pneumoniae Abnormal [facility] Laboratory - Specimen inform ationon 05-19-2024 Appearance (U) clear [facility] Color (U) darkyellow [facility] Laboratory - Urinalysison Leukocyte esterase Test strip Ql (U) moderate [facility] Nitrite Ql (U) Positive [facility] Protein Ql (U) Negative [facility] No Panel Informationon 05-19 Urine Occult Blood moderate [facility] Urine Cultureon 05-19-2024 Bacteria identified Cx Nom (U) ORGANISM: Klebsiella pneumoniae (O:KLEPNE) [place] Count 75,000 Aerobic ILANA Charge (NMIC56) ----- [...] RESISTANT TO ALL B-LACTAM DRUGS. PERFORMED BY: [place] [address] PATHOLOGIST COMMERCIAL SINGER ALEXEI COLE M.D. Normal The Replaced By [facility] Comment on above: Performed By: #### C UU #### [facility] [address] [place] [address] Urine cultureOrdered By: Pascale Hill on 05-19-2024 Bacteria identified Cx Nom (U) Abnormal [facility] HIV AB/P24 AG WITH REFLEXon 05-05-2024 HIV AB/P24 AG SCREEN Non-Reactive Non Reactive [facility] Comment on above: HIV-1/HIV-2 antibodi es and HIV-1 p24 antigen were NOT detected. There is no laboratory evidence of HIV infection. HIV Negative Performed at: [facility] [address] [id number] [employer]as[employer]: Reji Williamson PhD, Phone: [phone] [facility] HBV surface Ag IA Qlon 05-04 Hepatitis B Surface Antigen Negative Negative [facility] Comment on above: Performed at: [facility] [address] [id number] Director: Reji Williamson PhD, Phone: [phone] Performed at: [facility] [address] [id number] Director: Reji Williamson PhD, Phone: [phone] HIV 1 and HIV-2 antibody ass ay with HIV-1 p24 antigen detectionon 05-04-2024 HIV 1+2 Ab+HIV1 p24 Ag IA Ql Non-Reactive Non Reactive [facility] Comment on above: HIV-1/HIV-2 antibodi es and HIV-1 p24 antigen were NOTdetected. There is no laboratory evidence of HIV infection.HIV NegativePerformed at: [facility] [place], [place] [id number] Director: Reji Williamson PhD, Phone: [phone] HIV 1+2 Ab+HIV1 p24 Ag IA Ql HIV 1 and HIV-2 antibody assay with HIV-1 p24 antigen detection Non Reactive [facility] Comment on above: HIV-1/HIV-2 antibodi es and HIV-1 p24 antigen were NOTdetected. There is no laboratory evidence of HIV infection.HIV NegativePerformed at: [facility] [address] [place], [place] [id number] Director: Reji Williamson PhD, Phone: [phone] No Panel Informationon 05-04 RPR Quantitative Confirmation Non Reactive titer NonRea<1:1 [facility] Comment on above: Please Note: This te st does not meet current guidelines forscreening and diagnosis of syphilis. This test isintended for following treatment response in patients beingtreated for syphilis infection. To screen for syphilisinfection, a reflex cascade that includes both RPR and atreponema-specific assay should be utilized, such asTreponema pallidum (Syphilis) Screening [place] (862420) orRapid Plasma Reagin (RPR) Test With Reflex to QuantitativeRPR and Confirmatory Treponema pallidum Antibodies(146768).Performed at: [facility] [address] [place], [place] [id number] Director: Reji Williamson PhD, Phone: [phone] IGP,APTIMA HPV,AGE GDLNon AGE GDLN ACOG TESTING Note . [facility] Comment on above: TESTS RESULT FLAG UN ITS REF RANGE LAB Clinician Provided Cytology Information Source.............Cervix;Endocervix No. of containers..01 ThinPrep Vial Age Bernardo DRIVER Hailee... 32 FLAG LEGEND: L-Low Normal,H-High Normal,LL-Alert Low,HH-Alert High <-Panic Low,>-Panic High,A-Abnormal,AA-Critical Abnormal Performed at: 01 =G [address] [address] Karena Shane MD, HPV APTIMA Negative Negative [facility] Comment on above: This nucleic acid am plification test detects fourteen high- risk HPV types (16,18,31,33,35,39,45,51,52,56,58,59,66,68) without differentiation. Performed at: =G - [facility] [id number] [employer]: Karena Shane MD, Phone: [phone] Performed at: - [address] [id number] [employer]: Karena Shane MD, Phone: [phone] IGP, APTIMA HPV, RFX 16/18,45 Note . [facility] Comment on above: TESTS RESULT FLAG UN ITS REF RANGE LAB DIAGNOSIS: 02 NEGATIVE FOR INTRAEPITHELIAL LESION OR MALIGNANCY. Specimen adequacy: 02 Satisfactory for evaluation. No endocervical component is identified. Performed by: 02 Ernestine Pozo, Wearing Apparel Presser ([facility]) . 02 Note: Note 02 The Pap [...] <-Panic Low,>-Panic High,A-Abnormal,AA-Critical Abnormal Performed at: [address] [address] Karena Shane MD, BRUSH-SPATULA CERVIX ENDOCERVIX [facility] URETHRITIS/DISCHARGE PLUS VA GINITIS (HTRX)on 04-23-2024 ATOPOBIUM VAGINAE 0.000 [facility] Healthcare ATOPOBIUM VAGINAE Not detected [facility] BVAB 2,3 (BACTERIAL VAGINOSIS ASSOCIATED BACTERIA 2, 3); MOBILUNCUS SPP 0.000 [facility] BVAB 2,3 (BACTERIAL VAGINOSIS ASSOCIATED BACTERIA 2, 3); MOBILUNCUS SPP Not detected [facility] GIANA ALBICANS, PARAPSILOSIS, TROPICALIS 0.000 NOM[facility] [...] DNA Probe+sig amp Ql (Cvx) Negative Negative [facility] Comment on above: This nucleic acid am plification test detects fourteen high-risk HPV types (16,18,31,33,35,39,45,51,52,56,58,59,66,68)without differentiation.Performed at: =[address] [id number] Director: Karena Shane MD, Phone: [phone] at: [facility] Lab[address] [id number] Director: Karena Shane MD, Phone: [phone] HPV 16+18+31+33+35+39+45+51+ 52+56+58+59+66+68 DNA Probe+sig amp Ql (Cvx) Human papilloma virus 16+18+31+33+35+39+45 +51+52+56+58+59+66+6 8 DNA [Presence] in Cer Negative [facility] Comment on above: This nucleic acid am plification test detects fourteen high-risk HPV types (16,18,31,33,35,39,45,51,52,56,58,59,66,68)without differentiation.Performed at: =G - [facility] [address] [id number] Director: Karena Shane MD, Phone: [phone] at: - [facility] [address] [id number] Director: Karena Shane MD, Phone: [phone] No Panel Informationon 04-21 HPV High Risk Other Comment Note . [facility] Comment on above: TESTS RESULT FLAG UN ITS REF RANGE LAB --DIAGNOSIS: 02 NEGATIVE FOR INTRAEPITHELIAL LESION OR MALIGNANCY.Specimen adequacy: 02 Satisfactory for evaluation. No endocervical component is identified.Performed by: Dionne Pozo, Wearing Apparel Presser (ASCP). 02Note: Note 02 The Pap smear [...] Low,>-Panic High,A-Abnormal,AA-Critical Abnormal -------Performed at:02 WB [facility] [place] [address] [place] [address] Karena Shane MD, Reference Lab Test Patient Age Note . [facility] Comment on above: TESTS RESULT FLAG UN ITS REF RANGE LAB -- Clinician Provided Cytology Information Source.............Cervix;Endocervix No. of containers..01 ThinPrep VialAge Algo ACOG Hailee... - FLAG LEGEND: L-Low Normal,H-High Normal,LL-Alert Low,HH-Alert High <-Panic Low,>-Panic High,A-Abnormal,AA-Critical Abnormal -------Performed at:01 =G [facility] [place] [address] [place] [address] Karena Shane MD, Basophils Auto (Bld) [#/Vol] on 04-09-2024 Basophils (Bld) [#/Vol] 0.1 10 3/uL 0.0-0.1 [facility] Basophils (Bld) [#/Vol] Automated basoph il count 0.0-0.1 [facility] Basophils/100 WBC Auto (Bld) on 04-09-2024 Basophils/100 WBC (Bld) 0.8 % 0.2-2.0 [facility] Basophils/100 WBC (Bld) Automated basophil % 0. 2-2.0 [facility] Cholesterol in LDL Calc [Mas s/Vol]on 04-09-2024 Cholesterol in LDL [Mass/Vol] 156.0 mg/dL [facility] Comment on above: <100 mg/dl [id number] 0-129 mg/dl NEAR OR ABOVE [id number] mg/dl BORDERLINE [id number] mg/dl HIGH>190 mg/dl VERY HIGH Cholesterol in LDL [Mass/Vol] Cholesterol in LDL [Mass/volume] in Serum or Plasma by calculation [facility] Comment on above: <100 mg/dl [id number] 0-129 mg/dl NEAR OR ABOVE [id number] mg/dl BORDERLINE CKVU982-805 mg/dl HIGH>190 mg/dl VERY HIGH Cholesterol in VLDL Calc [Ma ss/Vol]on 04-09-2024 Cholesterol in VLDL [Mass/Vol] 37.6 mg/dL [facility] Cholesterol in VLDL [Mass/Vol] Cholesterol in VLDL [Mass/volume] in Serum or Plasma by calculation [facility] Eosinophils/100 WBC Auto (Bl d)on 04-09-2024 Eosinophils/100 WBC (Bld) 2.3 % 0.9-7.0 [facility] Eosinophils/100 WBC (Bld) Automated eosinophil % 0.9-7.0 [facility] Erythrocyte distribution wid th Auto (RBC) [Ratio]on 04-09-2024 Erythrocyte distribution width (RBC) [Ratio] 14.2 % 11.0-15.0 [facility] Erythrocyte distribution width (RBC) [Ratio] Erythrocyte distribution width [Ratio] by Automated count 11.0-15.0 [facility] Globulin Calc (S) [Mass/Vol] on 04-09-2024 Globulin (S) [Mass/Vol] 3.7 g/dL [facility] Globulin (S) [Mass/Vol] Serum globulin measurement by calculation (mass/volume) [facility] Hematocrit Auto (Bld) [Volum e fraction]on 04-09-2024 Hematocrit (Bld) [Volume fraction] 48.4 % High 36.0-48.0 [facility] Hematocrit (Bld) [Volume fraction] Hematocrit [Volume Fraction] of Blood by Automated count High 36.0-48.0 [facility] Hemoglobin [Mass/volume] in Bloodon 04-09-2024 Hemoglobin (Bld) [Mass/Vol] 15.8 g/dL 12.0-16.0 [facility] Hemoglobin (Bld) [Mass/Vol] Hemoglobin [Mass/volume] in Blood 12.0-16.0 [facility] Laboratory - Chemistry and C hemistry - challengeon 04-09-2024 Albumin [Mass/Vol] 3.5 g/dL 3.4-5.0 [facility] ALP [Catalytic activity/Vol] 92 U/L 46-116 [facility] ALT [Catalytic activity/Vol] 30 U/L 14-59 [facility] AST [Catalytic activity/Vol] 17 U/L 15-37 [facility] Bilirubin [Mass/Vol] 0.6 mg/dL 0.2-1.0 [facility] Bilirubin.direct [Mass/Vol] 0.1 mg/dL 0.0-0.2 [facility] Cholesterol [Mass/Vol] 263 mg/dL High <=200 Fi [facility] Cholesterol in HDL [Mass/Vol] 70 mg/dL High 40-60 [facility] Comment on above: > or =60 mg/dl - LOW CARDIOVASCULAR RISK<40 mg/dl - HIGH CARDIOVASCULAR RISK Protein [Mass/Vol] 7.2 g/dL 6.4-8.2 [facility] Triglyceride [Mass/Vol] 188 mg/dL High <=150 [facility] Laboratory - Hematology and Cell countson 04-09-2024 Immature granulocytes/100 WBC (Bld) 0.7 % High 0.0-0.5 [facility] Leukocytes [#/volume] correc sheeba for nucleated erythrocytes in Blood by Automated counon 04-09-2024 WBC corrected for nucl RBC Auto (Bld) [#/Vol] 7.4 10 3/uL .0-11.0 [facility] WBC corrected for nucl RBC Auto (Bld) [#/Vol] Leukocytes [#/volume] corrected for nucleated erythrocytes in Blood by Automated coun .-. [facility] Lymphocytes Auto (Bld) [#/Vo l]on 04-09-2024 Lymphocytes (Bld) [#/Vol] 1.9 10 3/uL 1.2-3.8 [facility] Lymphocytes (Bld) [#/Vol] Lymphocytes [#/volume] in Blood by Automated count 1.2-3.8 [facility] Lymphocytes/100 WBC Auto (Bl d)on 04-09-2024 Lymphocytes/100 WBC (Bld) 25.8 % 20.5-60.0 [facility] Lymphocytes/100 WBC (Bld) Lymphocytes/100 leukocytes in Blood by Automated count 20.5-60.0 [facility] MCH Auto (RBC) [Entitic mass ]on 04-09-2024 MCH (RBC) [Entitic mass] 29.5 pg 26.7-34.0 [facility] MCH (RBC) [Entitic mass] MCH [Entitic ma ss] by Automated count 26.7-34.0 [facility] MCHC Auto (RBC) [Mass/Vol]on 04-09-2024 MCHC (RBC) [Mass/Vol] 32.6 g/dL 29.9-35.2 [facility] MCHC (RBC) [Mass/Vol] MCHC [Mass/volume] by Automated count 29.9-35.2 [facility] MCV Auto (RBC) [Entitic vol] on 04-09-2024 MCV (RBC) [Entitic vol] 90.3 fL 81.0-99.0 [facility] MCV (RBC) [Entitic vol] MCV [Entitic vol ume] by Automated count 81.0-99.0 [facility] Monocytes Auto (Bld) [#/Vol] on 04-09-2024 Monocytes (Bld) [#/Vol] 0.6 10 3/uL 0.3-0.8 [facility] Monocytes (Bld) [#/Vol] Automated blood monocyte count 0.3-0.8 [facility] Monocytes/100 WBC Auto (Bld) on 04-09-2024 Monocytes/100 WBC (Bld) 7.9 % 1.7-12.0 [facility] Monocytes/100 WBC (Bld) Automated monocyte % 1. 7-12.0 [facility] Neutrophils Auto (Bld) [#/Vo l]on 04-09-2024 Neutrophils (Bld) [#/Vol] 4.6 10 3/uL 1.4-6.5 [facility] Neutrophils (Bld) [#/Vol] Neutrophils [#/volume] in Blood by Automated count 1.4-6.5 [facility] Neutrophils/100 WBC Auto (Bl d)on 04-09-2024 Neutrophils/100 WBC (Bld) 62.5 % 43.0-75.0 [facility] Neutrophils/100 WBC (Bld) Automated neutrophil % 43.0-75.0 [facility] No Panel Informationon 04-09 Eosinophils # (Auto) 0.2 10 3/uL 0.0-0.7 [facility] Follicle Stimulating Hormone 71.8 mIU/mL 25.8-134.8 [facility] Comment on above: Adult Female Range F ollicular phase 3.5 - 12.5 Ovulation phase 4.7 - 21.5 Luteal phase 1.7 - 7.7 Postmenopausal 25.8 - 134.8Performed at: [facility] [place], [place] [id number] Director: Reji Williamson PhD, Phone: [phone] Immature Granulocyte # (Auto) 0.05 10 3/uL High 0.00-0.03 [facility] Loring Level 0.1 mmol/L Abnormal 0.5-1.2 [facility] Comment on above: A concentration of 0 .5-0.8 mmol/L is advised for long-termuse; concentrations of up to 1.2 mmol/L may be necessaryduring acute treatment. Detection Limit = 0.1 <0.1 indicates None DetectedPerformed at: [facility] [place], [place] [id number] Director: Reji Williamson PhD, Phone: [phone] Platelet mean volume Auto (B ld) [Entitic vol]on 04-09-2024 Platelet mean volume (Bld) [Entitic vol] 10.0 fL 9.5-13.5 [facility] Platelet mean volume (Bld) [Entitic vol] Platelet mean volume [Entitic volume] in Blood by Automated count 9.5-13.5 [facility] Platelets Auto (Bld) [#/Vol] on 04-09-2024 Platelets (Bld) [#/Vol] 278 10 3/uL 150-450 [facility] Platelets (Bld) [#/Vol] Platelets [#/vol ume] in Blood by Automated count 150-450 [facility] RBC Auto (Bld) [#/Vol]on RBC (Bld) [#/Vol] 5.36 10 6/uL 4.20-5.40 [facility] RBC (Bld) [#/Vol] Erythrocytes [#/volume] in Blood by Automated count 4.20-5.40 [facility] Serum or plasma albumin/glob ulin mass ratioon 04-09-2024 Albumin/Globulin [Mass ratio] 0.9 {ratio} [facility] Albumin/Globulin [Mass ratio] Serum or plasma albumin/globulin mass ratio [facility] Serum or plasma total choles terol/high density lipoprotein (HDL) cholesterol mass yoselyn 04-09-2024 Cholesterol.total/Choles terol in HDL [Mass ratio] 3.8 {ratio} [facility] Comment on above: 3.3 - 4.4 LOW RISK4. 4 - 7.1 AVERAGE RISK7.1 - 11.0 MODERATE RISK>11.0 HIGH RISK Cholesterol.total/Choles terol in HDL [Mass ratio] Serum or plasma total cholesterol/high density lipoprotein (HDL) cholesterol mass rat [facility] Comment on above: 3.3 - 4.4 [...] (COVID-19) mRNA-1273 vaccine 11/11/2020 Recorded Normal [facility] Comment on above: Result Comment: Elec tronically [...] SARS-CoV-2 (COVID-19) mRNA-1273 vaccine 11/11/2020 Recorded Normal [facility] Operative Reporton Operative Report [id number] #1.00TIFF Normal [facility] Pathology Noteon 01-08-2024 Pathology Note [id number] #1.00TIFF Normal [facility] [place] 12-31-2023 L Specimen: [id number] Received: 01/01/24 Status: VALERIE Chau Num: [id number] Spec Type: Surgical Subm Dr: Dieter Loco MD FACS Tissues: A Skin-Other than Cyst, tag, debridement or plastic repair (RT NIPPLE LESION) Procedures: HE, Gross/Micro L4 Age/ Patient Sex Location Account Attending Physician Rain Sweeney 63/F [facility] [id number] Dieter Loco MD FACS SPEC NUM: [id number] RECD: 01/01/24 STATUS: VALERIE CHAU NUM: [id number] JOSEMANUEL: 12/31/[address]: Dieter Loco MD FACS ENTERED: 01/01/24 [facility] DR: Renee Jang SPEC TYPE: [...] surface and entirely submitted in A1. Specimen: [id number] Received: 01/01/24 Status: VALERIE Chau Num: [id number] Spec Type: Surgical Subm Dr: Dieter Loco MD FACS Tissues: A Skin-Other than Cyst, tag, debridement or plastic repair (RT NIPPLE LESION) Procedures: EVERETT Gross/Carlo L4 Patient: Rain Sweeney [id number] (Continued) Specimen: [id number] Received: 01/01/24 (Continued) Signed (signature on file) Bobbi Buckner MD 01/05/24 1812 Specimen: [id number] Received: 01/01/24 Status: VALERIE Chau Num: [id number] Spec Type: Surgical Subm Dr: Dieter Loco MD FACS Tissues: A Skin-Other than Cyst, tag, debridement or plastic repair (RT NIPPLE LESION) Procedures: Ita FLOYD/Carlo Baker Patient: Rain Sweeney [id number] (Continued) Specimen: [id number] Received: 01/01/24 (Continued) CPT Codes 18547 Specimen: [id number] Received: 01/01/24 Status: VALERIE Chau Num: [id number] Spec Type: Surgical Subm Dr: Dieter Loco MD FACS Tissues: A Skin-Other than Cyst, tag, debridement or plastic repair (RT NIPPLE LESION) Procedures: Ita FLOYD/Carlo L4 Patient: Rain Sweeney [id number] (Continued) Signed (signature on file) Bobbi Buckner MD 01/05/241811 Normal [facility] Consent for Procedure/Surger yon 11-21-2023 Consent for Procedure/Surgery [id number] #1.00TIFF Normal [facility] Facesheeton 11-20-2023 Facesheet [id number] #1.00TIFF Normal [facility] RAD - Ultrasound Reporton RAD - Ultrasound Report [id number] #1.00TIFF Normal [facility] Ambulatory Visit Summaryon 0 11-19-2023 Ambulatory Visit [...] choosing us for your care. Normal [facility] Basophils Auto (Bld) [#/Vol] on 11-18-2023 Basophils (Bld) [#/Vol] 0.1 10 3/uL 0.0-0.1 [facility] Basophils/100 WBC Auto (Bld) on 11-18-2023 Basophils/100 WBC (Bld) 0.9 % 0.2-2.0 [facility] Cholesterol in LDL Calc [Mas s/Vol]on 11-18-2023 Cholesterol in LDL [Mass/Vol] 130.0 mg/dL [facility] Comment on above: <100 mg/dl [id number] 0-129 mg/dl NEAR OR ABOVE MYWSCBX120-503 mg/dl BORDERLINE HRHL520-740 mg/dl HIGH>190 mg/dl VERY HIGH Cholesterol in VLDL Calc [Ma ss/Vol]on 11-18-2023 Cholesterol in VLDL [Mass/Vol] 19.8 mg/dL [facility] Eosinophils/100 WBC Auto (Bl d)on 11-18-2023 Eosinophils/100 WBC (Bld) 4.5 % 0.9-7.0 [facility] Erythrocyte distribution wid th Auto (RBC) [Ratio]on 11-18-2023 Erythrocyte distribution width (RBC) [Ratio] 13.6 % 11.0-15.0 [facility] Estimated glomerular filtrat ion rate (GFR) non- Americanon 11-18-2023 GFR/1.73 sq M.predicted among non-blacks MDRD (S/P/Bld) [Vol rate/Area] 55 mL/min/{1.73_m2} >=60 [facility] Globulin Calc (S) [Mass/Vol] on 11-18-2023 Globulin (S) [Mass/Vol] 3.6 g/dL [facility] Glucose mean value [Mass/vol ume] in Blood Estimated from glycated hemoglobinon 11-18-2023 Average glucose Estimated from glycated hemoglobin (Bld) [Mass/Vol] 100 mg/dL [facility] Hematocrit Auto (Bld) [Volum e fraction]on 11-18-2023 Hematocrit (Bld) [Volume fraction] 46.8 % 36.0-48.0 [facility] Hemoglobin [Mass/volume] in Bloodon 11-18-2023 Hemoglobin (Bld) [Mass/Vol] 15.0 g/dL 12.0-16.0 [facility] Laboratory - Chemistry and C hemistry - challengeon 11-18-2023 Albumin [Mass/Vol] 3.7 g/dL 3.4-5.0 [facility] ALP [Catalytic activity/Vol] 83 U/L 46-116 [facility] ALT [Catalytic activity/Vol] 40 U/L 14-59 [facility] AST [Catalytic activity/Vol] 22 U/L 15-37 [facility] Bilirubin [Mass/Vol] 0.4 mg/dL 0.2-1.0 [facility] Calcium [Mass/Vol] 9.1 mg/dL 8.5-10.1 [facility] Chloride [Moles/Vol] 104 mmol/L 98-107 [facility] Cholesterol [Mass/Vol] 226 mg/dL <=200 [facility] Cholesterol in HDL [Mass/Vol] 77 mg/dL 40-60 [facility] Comment on above: > or =60 mg/dl - LOW CARDIOVASCULAR RISK<40 mg/dl - HIGH CARDIOVASCULAR RISK CO2 [Moles/Vol] 26.6 mmol/L 21.0-32.0 [facility] Creatinine [Mass/Vol] 1.02 mg/dL 0.55-1.02 [facility] GFR/1.73 sq M.predicted MDRD (S/P/Bld) [Vol rate/Area] mL/min/{1.73_m2} >=60 [facility] Glucose [Mass/Vol] 107 mg/dL 74-106 [facility] Potassium [Moles/Vol] 3.7 mmol/L 3.5-5.1 [facility] Protein [Mass/Vol] 7.3 g/dL 6.4-8.2 [facility] Sodium [Moles/Vol] 141 mmol/L 136-145 [facility] Triglyceride [Mass/Vol] 99 mg/dL <=150 [facility] TSH Qn 1.352 m[IU]/L 0.358-3.740 [facility] Urea nitrogen [Mass/Vol] 9.0 mg/dL 7.0-18.0 [facility] Urea nitrogen/Creatinine [Mass ratio] 8.8 mg/mg [facility] Laboratory - Hematology and Cell countson 11-18-2023 HbA1c (Bld) [Mass fraction] 5.1 % 4.5-6.2 [facility] Comment on above: ADA RECOMMENDED LIMI T 4.0 - 6.0ADA THERAPEUTIC TARGET < 7.0ACTION SUGGESTED> 7.0 Immature granulocytes/100 WBC (Bld) 0.6 % 0.0-0.5 [facility] Leukocytes [#/volume] correc sheeba for nucleated erythrocytes in Blood by Automated counon 11-18-2023 WBC corrected for nucl RBC Auto (Bld) [#/Vol] 6.5 10 3/uL 4.0-11.0 [facility] Lymphocytes Auto (Bld) [#/Vo l]on 11-18-2023 Lymphocytes (Bld) [#/Vol] 1.7 10 3/uL 1.2-3.8 [facility] Lymphocytes/100 WBC Auto (Bl d)on 11-18-2023 Lymphocytes/100 WBC (Bld) 25.3 % 20.5-60.0 [facility] MCH Auto (RBC) [Entitic mass ]on 11-18-2023 MCH (RBC) [Entitic mass] 29.6 pg 26.7-34.0 [facility] MCHC Auto (RBC) [Mass/Vol]on 11-18-2023 MCHC (RBC) [Mass/Vol] 32.1 g/dL 29.9-35.2 [facility] MCV Auto (RBC) [Entitic vol] on 11-18-2023 MCV (RBC) [Entitic vol] 92.3 fL 81.0-99.0 [facility] Monocytes Auto (Bld) [#/Vol] on 11-18-2023 Monocytes (Bld) [#/Vol] 0.5 10 3/uL 0.3-0.8 [facility] Monocytes/100 WBC Auto (Bld) on 11-18-2023 Monocytes/100 WBC (Bld) 7.4 % 1.7-12.0 [facility] Neutrophils Auto (Bld) [#/Vo l]on 11-18-2023 Neutrophils (Bld) [#/Vol] 4.0 10 3/uL 1.4-6.5 [facility] Neutrophils/100 WBC Auto (Bl d)on 11-18-2023 Neutrophils/100 WBC (Bld) 61.3 % 43.0-75.0 [facility] No Panel Informationon 11-17 Eosinophils # (Auto) 0.3 10 3/uL 0.0-0.7 [facility] Immature Granulocyte # (Auto) 0.04 10 3/uL 0.00-0.03 [facility] Loring Level 0.9 mmol/L 0.5-1.2 [facility] Comment on above: A concentration of 0 .5-0.8 mmol/L is advised for long-termuse; concentrations of up to 1.2 mmol/L may be necessaryduring acute treatment. Detection Limit = 0.1 <0.1 indicates None DetectedPerformed at: [address] [id number] Director: Reji Williamson PhD, Phone: [phone] Outside Mammographyon 2023 Outside Mammography [id number] #1.00TIFF Normal [facility] Platelet mean volume Auto (B ld) [Entitic vol]on 11-18-2023 Platelet mean volume (Bld) [Entitic vol] 10.1 fL 9.5-13.5 [facility] Platelets Auto (Bld) [#/Vol] on 11-18-2023 Platelets (Bld) [#/Vol] 281 10 3/uL 150-450 [facility] RBC Auto (Bld) [#/Vol]on RBC (Bld) [#/Vol] 5.07 10 6/uL 4.20-5.40 [facility] Serum or plasma albumin/glob ulin mass ratioon 11-18-2023 Albumin/Globulin [Mass ratio] 1.0 {ratio} [facility] Serum or plasma anion gap de terminationon 11-18-2023 Anion gap [Moles/Vol] 14.1 mmol/L [facility] Serum or plasma total choles terol/high density lipoprotein (HDL) cholesterol mass yoselyn 11-18-2023 Cholesterol.total/Choles terol in HDL [Mass ratio] 2.9 {ratio} [facility] Comment on above: 3.3 - 4.4 LOW RISK4. 4 - 7.1 AVERAGE RISK7.1 - 11.0 MODERATE RISK>11.0 HIGH RISK Physician Referralon 024 Physician Referral [id number] #1.00TIFF Normal [facility] XR LSPINE 2_3 VIEWSon 2022 XR LSPINE [...] by: MAKEDA QUIROZ Date: 2022-12-06 11:24 Normal [facility] LITHIUMon 11-27-2022 [place] (Eskalith(R)), Serum 0.8 mmol/L Normal 0.5-1.2 [facility] Comment on above: Result Comment: A co ncentration of 0.5-0.8 mmol/L is advised for long-term use; concentrations of up to 1.2 mmol/L may be necessary during acute treatment. Detection Limit = 0.1 <0.1 indicates None Detected Performed By: #### L ITHIUM ####[facility] [address] [place], [place] [address]ZySamantha Buckner CREATININEon 11-26-2022 Creatinine [Mass/Vol] 0.97 mg/dL Normal 0.55-1.02 [facility] Comment on above: Performed By: #### T SH, CREA #### [facility] [address] [address] [address] Laurel Buckner EGFR-AF INDIAN >60 Normal >=60 [facility] Comment on above: Performed By: #### T SH, CREA #### [facility] [address] [place], [place] [address] Dr. Laurel Buckner EGFR-NON AF INDIAN 59 mL/min/1.73m2 Critically low >=60 [facility] Comment on above: Performed By: #### T SH, CREA #### [facility] [address] [address] [address] Laurel Buckner TSHon 11-26-2022 TSH 1.616 uIU/mL Normal 0.358-3.[address] [facility] Comment on above: Performed By: #### T SH, CREA #### [facility] [address] [address] [address] Laurel Buckner MG MAMM SCREEN 3D TOMY CADon 11-14-2022 MG MAMM SCREEN 3D TOMY CAD Patient: RAIN SWEENEY Exam Date: 11/14/2022 : 1960 Gender:F Ordering : DR SEB BARRY M.D. Admission #: [id number] Family : Order #: [id number] CLICK HERE TO VIEW EXAM RADIOLOGY REPORT [...] colon cancer at age 62. LOCATION: [facility] BREAST COMPOSITION: Heterogeneously dense,which may obscure small [...] Quiroz MD on 11/14/2022 at 12:03 Normal [facility] LITHIUMon 05-16-2022 [place] (Eskalith(R)), Serum 0.8 mmol/L Normal 0.5-1.2 [facility] Comment on above: Result Comment: Plas ma concentration of 0.5 - 0.8 mmol/L are advised for long-term use; concentrations of up to 1.2 mmol/L may be necessary during acute treatment. Detection Limit = 0.1 <0.1 indicates None Detected Performed By: #### L ITHIUM #### [facility] [address] [place] [address] Dr. Laurel Buckner CBC AUTO DIFFon 05-15-2022 BASO # 0.1 103/ul Normal 0.0-0.1 [facility] Comment on above: Performed By: #### C BC #### [facility] [address] [place] [address] Dr. Laurel Buckner Basophils/100 WBC (Bld) 1.0 % Normal 0.2-2.0 [facility] Comment on above: Performed By: #### C BC #### [facility] [address] [place] [address] Dr. Laurel Buckner EO # 0.4 103/ul Normal 0.0-0.7 [facility] Comment on above: Performed By: #### C BC #### [facility] [address] [place] [address] Dr. Laurel Buckner Eosinophils/100 WBC (Bld) 5.3 % Normal 0.9-7.0 [facility] Comment on above: Performed By: #### C BC #### [facility] [address] [place] [address] Dr. Laurel Buckner Erythrocyte distribution width (RBC) [Ratio] 13.8 % Normal 11.0-15.0 [facility] Comment on above: Performed By: #### C BC #### [facility] [address] [place] [address] Dr. Laurel Buckner Hematocrit (Bld) [Volume fraction] 46.8 % Normal 36.0-48.0 [facility] Comment on above: Performed By: #### C BC #### [facility] [address] [place] [address] Dr. Laurel Buckner Hemoglobin (Bld) [Mass/Vol] 14.8 g/dL Normal 12.0-16.0 [facility] Comment on above: Performed By: #### C BC #### [facility] [address] [place] [address] Dr. Laurel Buckner IG # 0.07 10e3/ul Critically high 0.00-0.03 [facility] Comment on above: Performed By: #### C BC #### [facility] [address] [place] [address] Dr. Laurel Buckner IG % 1.0 % Critically high 0.0-0.5 [facility] Comment on above: Performed By: #### C BC #### [facility] [address] [place] [address] Dr. Laurel Buckner LYMPH # 1.7 103/ul Normal 1.2-3.8 [facility] Comment on above: Performed By: #### C BC #### [facility] [address] [place] [address] Dr. Laurel Buckner Lymphocytes/100 WBC (Bld) 25.4 % Normal 20.5-60.0 [facility] Comment on above: Performed By: #### C BC #### [facility] [address] [place] [address] Dr. Laurel Buckner MANUAL DIFF REQ NO Normal [facility] Comment on above: Performed By: #### C BC #### [facility] [address] [place] [address] Dr. Laurel Buckner MCH (RBC) [Entitic mass] 29.5 pg Normal 26.7-34.0 [facility] Comment on above: Performed By: #### C BC #### [facility] [address] [address] [address] Laurel Buckner MCHC (RBC) [Mass/Vol] 31.6 g/dL Normal 29.9-35.2 [facility] Comment on above: Performed By: #### C BC #### [facility] [address] [address] [address] Laurel Buckner MCV (RBC) [Entitic vol] 93.4 fL Normal 81.0-99.0 [facility] Comment on above: Performed By: #### C BC #### [facility] [address] [address] [address] Laurel Buckner MONO # 0.6 103/ul Normal 0.3-0.8 [facility] Comment on above: Performed By: #### C BC #### [facility] [address] [place] [address] Dr. Laurel Buckner Monocytes/100 WBC (Bld) 8.4 % Normal 1.7-12.0 [facility] Comment on above: Performed By: #### C BC #### [facility] [address] [place] [address] Dr. Laurel Buckner NEUT # 4.0 103/ul Normal 1.4-6.5 [facility] Comment on above: Performed By: #### C BC #### [facility] [address] [place] [address] Dr. Laurel Buckner Neutrophils/100 WBC (Bld) 58.9 % Normal 43.0-75.0 [facility] Comment on above: Performed By: #### C BC #### [facility] [address] [place] [address] Dr. Laurel Buckner Platelet mean volume (Bld) [Entitic vol] 10.1 fL Normal 9.5-13.5 [facility] Comment on above: Performed By: #### C BC #### [facility] [address] [place] [address] Dr. Laurel Buckner PLT 279 103/ul Normal 150-450 [facility] Comment on above: Result Comment: smea r reviewed Performed By: #### C BC #### [facility] [address] [address] [address] Laurel Buckner RBC 5.01 106/ul Normal 4.20-5.40 [facility] Comment on above: Performed By: #### C BC #### [facility] [address] [place] [address] Dr. Laurel Buckner WBC 6.8 103/ul Normal 4.0-11.0 [facility] Comment on above: Performed By: #### C BC #### [facility] [address] [place] [address] Dr. Laurel Buckner GLYCOHEMOGLOBIN A1Con 2021 ADA RECOMMENDATION SEE BELOW Normal [facility] Comment on above: Result Comment: ADA RECOMMENDED LIMIT 4.0 - 6.0 ADA THERAPEUTIC TARGET < 7.0 ACTION SUGGESTED > 7.0 Performed By: #### A 1C #### [facility] [address] [place] [address] Dr. Laurel Buckner Glucose [Mass/Vol] 97 mg/dL Normal [facility] Comment on above: Performed By: #### A 1C #### [facility] [address] [place] [address] Dr. Laurel Buckner HbA1c (Bld) [Mass fraction] 5.0 % Normal 4.5-6.2 [facility] Comment on above: Performed By: #### A 1C #### [facility] [address] [place] [address] Dr. Laurel Buckner LIPID PROFILEon 05-15-2022 CHOL-HDL RATIO NORM SEE BELOW Normal [facility] Comment on above: Result Comment: 3.3 - 4.4 LOW RISK 4.4 - 7.1 AVERAGE RISK 7.1 - 11.0 MODERATE RISK >11.0 HIGH RISK Performed By: #### L IPID, TSH, CMP #### [facility] [address] [place] [address] Dr. Laurel Buckner Cholesterol [Mass/Vol] 279 mg/dL Critically high <=200 [facility] Comment on above: Performed By: #### L IPID, TSH, CMP #### [facility] [address] [place] [address] Dr. Laurel Buckner Cholesterol in HDL [Mass/Vol] 76 mg/dL Critically high 40-60 [facility] Comment on above: Performed By: #### L IPID, TSH, CMP #### [facility] [address] [address] [address] Laurel Buckner Cholesterol in LDL [Mass/Vol] 162.8 mg/dL Normal [facility] Comment on above: Performed By: #### L IPID, TSH, CMP #### [facility] [address] [address] [address] Laurel Buckner Cholesterol.total/Choles terol in HDL [Mass ratio] 3.7 {ratio} Normal [facility] Comment on above: Performed By: #### L IPID, TSH, CMP #### [facility] [address] [place] [address] Dr. Laurel Buckner HDL NORMAL > or = 60 mg/dl - LOW CARDIOVASCULAR RISK <40 mg/dl - HIGH CARDIOVASCULAR RISK Normal [facility] Comment on above: Performed By: #### L IPID, TSH, CMP #### [facility] [address] [place] [address] Dr. Laurel Buckner LDL CALC NORMAL SEE BELOW Normal [facility] Comment on above: Result Comment: <100 mg/dl OPTIMAL 100 - 129 mg/dl NEAR OR ABOVE OPTIMAL 130 - 159 mg/dl BORDERLINE HIGH 160 - 189 mg/dl HIGH >190 mg/dl VERY HIGH Performed By: #### L IPID, TSH, CMP #### [facility] [address] [address] [address] Laurel Buckner Triglyceride [Mass/Vol] 201 mg/dL Critically high <=150 [facility] Comment on above: Performed By: #### L IPID, TSH, CMP #### [facility] [address] [place] [address] Dr. Laurel Buckner VLDL CALC 40.2 mg/dL Normal [facility] Comment on above: Performed By: #### L IPID, TSH, CMP #### [facility] [address] [place] [address] Dr. Laurel Buckner PROF 14(COMP METB)on 022 Albumin [Mass/Vol] 3.6 g/dL Normal 3.4-5.0 [facility] Comment on above: Performed By: #### L IPID, TSH, CMP #### [facility] [address] [address] [address] Laurel Buckner Albumin/Globulin [Mass ratio] 0.9 {ratio} Normal [facility] Comment on above: Performed By: #### L IPID, TSH, CMP #### [facility] [address] [address] [address] Laurel Buckner ALP [Catalytic activity/Vol] 110 U/L Normal 46-116 [facility] Comment on above: Performed By: #### L IPID, TSH, CMP #### [facility] [address] [place] [address] Dr. Laurel Buckner ALT [Catalytic activity/Vol] 22 U/L Normal 14-59 [facility] Comment on above: Performed By: #### L IPID, TSH, CMP #### [facility] [address] [address] [address] Laurel Buckner Anion gap [Moles/Vol] 10.8 mmol/L Normal [facility] Comment on above: Performed By: #### L IPID, TSH, CMP #### [facility] [address] [place] [address] Dr. Laurel Buckner AST [Catalytic activity/Vol] 11 U/L Critically low 15-37 [facility] Comment on above: Performed By: #### L IPID, TSH, CMP #### [facility] [address] [place] [address] Dr. Laurel Buckner Bilirubin [Mass/Vol] 0.3 mg/dL Normal 0.2-1.0 [facility] Comment on above: Performed By: #### L IPID, TSH, CMP #### [facility] [address] [place] [address] Dr. Laurel Buckner Calcium [Mass/Vol] 9.1 mg/dL Normal 8.5-10.1 [facility] Comment on above: Performed By: #### L IPID, TSH, CMP #### [facility] [address] [address] [address] Laurel Buckner Chloride [Moles/Vol] 103 mmol/L Normal 98-107 [facility] Comment on above: Performed By: #### L IPID, TSH, CMP #### [facility] [address] [address] [address] Laurel Buckner CO2 [Moles/Vol] 27.9 mmol/L Normal 21.0-32.0 [facility] Comment on above: Performed By: #### L IPID, TSH, CMP #### [facility] [address] [address] [address] Laurel Buckner Creatinine [Mass/Vol] 0.96 mg/dL Normal 0.55-1.02 [facility] Comment on above: Performed By: #### L IPID, TSH, CMP #### [facility] [address] [address] [address] Laurel Buckner EGFR-AF INDIAN >60 Normal >=60 [facility] Comment on above: Performed By: #### L IPID, TSH, CMP #### [facility] [address] [address] [address] Laurel Buckner EGFR-NON AF INDIAN 59 mL/min/1.73m2 Critically low >=60 [facility] Comment on above: Performed By: #### L IPID, TSH, CMP #### [facility] [address] [address] [address] Laurel Buckner Globulin (S) [Mass/Vol] 3.9 g/dL Normal T [facility] Comment on above: Performed By: #### L IPID, TSH, CMP #### [facility] [address] [address] [address] Laurel Buckner Glucose [Mass/Vol] 90 mg/dL Normal 74-106 [facility] Comment on above: Performed By: #### L IPID, TSH, CMP #### [facility] [address] [address] [address] Laurel Buckner Potassium [Moles/Vol] 3.7 mmol/L Normal 3.5-5.1 [facility] Comment on above: Performed By: #### L IPID, TSH, CMP #### [facility] [address] [place] [address] Dr. Laurel Buckner Protein [Mass/Vol] 7.5 g/dL Normal 6.4-8.2 [facility] Comment on above: Performed By: #### L IPID, TSH, CMP #### [facility] [address] [place] [address] Dr. Laurel Buckner Sodium [Moles/Vol] 138 mmol/L Normal 136-145 [facility] Comment on above: Performed By: #### L IPID, TSH, CMP #### [facility] [address] [place] [address] Dr. Laurel Buckner Urea nitrogen [Mass/Vol] 16.0 mg/dL Normal 7.0-18.0 [facility] Comment on above: Performed By: #### L IPID, TSH, CMP #### [facility] [address] [place] [address] Dr. Laurel Buckner Urea nitrogen/Creatinine [Mass ratio] 16.7 mg/mg Normal [facility] Comment on above: Performed By: #### L IPID, TSH, CMP #### [facility] [address] [place] [address] Dr. Laurel Buckner TSH 05-15-2022 TSH 3.094 uIU/mL Normal 0.358-3.[address] [facility] Comment on above: Performed By: #### L IPID, TSH, CMP #### [facility] [address] [place] [address] Dr. Laurel Buckner Vital Signs Date Time Vital Sign Value Performing Clinician Facility 07-27-2024 08:41-0500 Heart rate 119 /min Aditya MARIA [facility] 07-27-2024 08:41-0500 SaO2% (BldA) [Mass fraction] 96 % Aditya MARIA [facility] 07-27-2024 08:29-0500 Body temperature 98.06 [degF] Ronobir CROW [facility] 07-27-2024 08:29-0500 Diastolic blood pressure 100 mm[Hg] Ronobir CROW [facility] 07-27-2024 08:29-0500 Mean blood pressure 122 mm[Hg] Ronobir CROW [facility] 07-27-2024 08:29-0500 Systolic blood pressure 166 mm[Hg] Ronobir CROW [facility] 07-27-2024 08:11-0500 Heart rate 131 /min Ronobir CROW [facility] 07-27-2024 08:11-0500 SaO2% (BldA) [Mass fraction] 95 % Ronobir CROW [facility] 07-27-2024 08:11-0500 Respiratory rate 16 /min Ronobir CROW [facility] 07-27-2024 08:10-0500 Diastolic blood pressure 80 mm[Hg] Ronobir CROW [facility] 07-27-2024 08:10-0500 Mean blood pressure 109 mm[Hg] Ronobir CROW [facility] 07-27-2024 08:10-0500 Systolic blood pressure 167 mm[Hg] Ronobir CROW [facility] 07-27-2024 08:10-0500 Body temperature 97.88 [degF] Ronobir CROW [facility] 07-27-2024 06:06-0500 Hourly Rounding Ronobir CROW [facility] 07-27-2024 06:06-0500 Promise to Return Ronobir CROW [facility] 07-27-2024 05:13-0500 Hourly Rounding Ronobir CROW [facility] 07-27-2024 05:13-0500 Promise to Return Ronobir CROW [facility] 07-27-2024 04:08-0500 Hourly Rounding Ronobir CROW [facility] 07-27-2024 04:08-0500 Promise to Return Ronobir CROW [facility] 07-27-2024 02:23-0500 Blood Pressure Location Ronobir CROW [facility] 07-27-2024 02:23-0500 Body temperature 97.7 [degF] Ronobir CROW [facility] 07-27-2024 02:23-0500 Diastolic blood pressure 83 mm[Hg] Ronobir CROW [facility] 07-27-2024 02:23-0500 Heart rate 83 /min Ronobir CROW [facility] 07-27-2024 02:23-0500 Mean blood pressure 106 mm[Hg] Ronobir CROW [facility] 07-27-2024 02:23-0500 SaO2% (BldA) [Mass fraction] 97 % Ronobir CROW [facility] 07-27-2024 02:23-0500 Systolic blood pressure 153 mm[Hg] Ronobir CROW [facility] 07-26-2024 20:00-0500 Body temperature 98.06 [degF] Ronobir CROW [facility] 07-26-2024 16:18-0500 Respiratory rate 16 /min Ronobir CROW [facility] 07-26-2024 16:18-0500 Body temperature 97.7 [degF] Ronobir CROW [facility] 07-26-2024 16:18-0500 Mean blood pressure 97 mm[Hg] Ronobir CROW [facility] 07-26-2024 01:00-0500 Blood Pressure Location Ronobir CROW [facility] 07-26-2024 01:00-0500 Body temperature 97.16 [degF] Ronobir CROW [facility] 07-26-2024 01:00-0500 Mean blood pressure 91 mm[Hg] Ronobir CROW [facility] 07-25-2024 08:00-0500 Heart rate 98 /min Ronobir CROW [facility] 07-25-2024 08:00-0500 Mean blood pressure 90 mm[Hg] Ronobir CROW [facility] 07-22-2024 12:28-0500 Heart rate 99 /min HAMILTON NKANSAH-AMANKRA [facility] 07-22-2024 12:28-0500 SaO2% (BldA) [Mass fraction] 98 % HAMILTON NKANSAH-AMANKRA [facility] 07-22-2024 12:28-0500 Diastolic blood pressure 77 mm[Hg] HAMILTON NKANSAH-AMANKRA [facility] 07-22-2024 12:28-0500 Mean blood pressure 93 mm[Hg] HAMILTON NKANSAH-AMANKRA [facility] 07-22-2024 12:28-0500 Systolic blood pressure 125 mm[Hg] HAMILTON NKANSAH-AMANKRA [facility] 07-22-2024 12:28-0500 Respiratory rate 16 /min HAMILTON NKANSAH-AMANKRA [facility] 07-22-2024 10:10-0500 Blood Pressure Location HAMILTON NKANSAH-AMANKRA [facility] 07-22-2024 10:10-0500 Body temperature 97.7 [degF] HAMILTON NKANSAH-AMANKRA [facility] 07-22-2024 10:10-0500 Diastolic blood pressure 82 mm[Hg] HAMILTON NKANSAH-AMANKRA [facility] 07-22-2024 10:10-0500 Heart rate 107 /min HAMILTON NKANSAH-AMANKRA [facility] 07-22-2024 10:10-0500 Mean blood pressure 99 mm[Hg] HAMILTON NKANSAH-AMANKRA [facility] 07-22-2024 10:10-0500 Respiratory rate 16 /min HAMILTON NKANSAH-AMANKRA [facility] 07-22-2024 10:10-0500 SaO2% (BldA) [Mass fraction] 96 % HAMILTON NKANSAH-AMANKRA [facility] 07-22-2024 10:10-0500 Systolic blood pressure 134 mm[Hg] HAMILTON NKANSAH-AMANKRA [facility] 07-22-2024 09:58-0500 Body temperature 97.88 [degF] HAMILTON NKANSAH-AMANKRA [facility] 07-22-2024 09:58-0500 Diastolic blood pressure 68 mm[Hg] HAMILTON NKANSAH-AMANKRA [facility] 07-22-2024 09:58-0500 Heart rate 111 /min HAMILTON NKANSAH-AMANKRA [facility] 07-22-2024 09:58-0500 Mean blood pressure 87 mm[Hg] HAMILTON NKANSAH-AMANKRA [facility] 07-22-2024 09:58-0500 Respiratory rate 20 /min HAMILTON NKANSAH-AMANKRA [facility] 07-22-2024 09:58-0500 SaO2% (BldA) [Mass fraction] 94 % HAMILTON NKANSAH-AMANKRA [facility] 07-22-2024 09:58-0500 Systolic blood pressure 125 mm[Hg] HAMILTON NKANSAH-AMANKRA [facility] 07-22-2024 09:40-0500 Mean blood pressure 110 mm[Hg] HAMILTON NKANSAH-AMANKRA [facility] 07-22-2024 09:40-0500 Respiratory rate 24 /min HAMILTON NKANSAH-AMANKRA [facility] 07-22-2024 09:25-0500 Respiratory rate 11 /min HAMILTON NKANSAH-AMANKRA [facility] 07-22-2024 09:08-0500 Blood Pressure Location HAMILTON NKANSAH-AMANKRA [facility] 07-22-2024 09:08-0500 Body temperature 97.52 [degF] HAMILTON NKANSAH-AMANKRA [facility] 07-22-2024 06:19-0500 Heart rate 98 /min HAMILTON NKANSAH-AMANKRA [facility] 07-22-2024 06:19-0500 Respiratory rate 18 /min HAMILTON NKANSAH-AMANKRA [facility] 07-22-2024 06:18-0500 Mean blood pressure 105 mm[Hg] HAMILTON NKANSAH-AMANKRA [facility] 07-05-2024 10:04-0500 Blood Pressure Location HAMILTON NKANSAH-AMANKRA [facility] 07-05-2024 10:04-0500 Diastolic blood pressure 90 mm[Hg] HAMILTON NKANSAH-AMANKRA [facility] 07-05-2024 10:04-0500 Heart rate 109 /min HAMILTON NKANSAH-AMANKRA [facility] 07-05-2024 10:04-0500 Systolic blood pressure 155 mm[Hg] HAMILTON NKANSAH-AMANKRA [facility] 06-24-2024 10:02-0500 Heart rate 89 /min HAMILTON NKANSAH-AMANKRA [facility] 06-24-2024 10:02-0500 SaO2% (BldA) [Mass fraction] 97 % HAMILTON NKANSAH-AMANKRA [facility] 06-24-2024 10:01-0500 Blood Pressure Location HAMILTON NKANSAH-AMANKRA [facility] 06-24-2024 10:01-0500 Diastolic blood pressure 88 mm[Hg] HAMILTON NKANSAH-AMANKRA [facility] 06-24-2024 10:01-0500 Mean blood pressure 104 mm[Hg] HAMILTON NKANSAH-AMANKRA [facility] 06-24-2024 10:01-0500 Systolic blood pressure 137 mm[Hg] HAMILTON NKANSAH-AMANKRA [facility] 06-24-2024 10:01-0500 Respiratory rate 16 /min HAMILTON NKANSAH-AMANKRA [facility] 06-24-2024 09:21-0500 Heart rate 95 /min HAMILTON NKANSAH-AMANKRA [facility] 06-24-2024 09:21-0500 SaO2% (BldA) [Mass fraction] 95 % HAMILTON NKANSAH-AMANKRA [facility] 06-24-2024 09:20-0500 Blood Pressure Location HAMILTON NKANSAH-AMANKRA [facility] 06-24-2024 09:20-0500 Diastolic blood pressure 88 mm[Hg] HAMILTON NKANSAH-AMANKRA [facility] 06-24-2024 09:20-0500 Mean blood pressure 103 mm[Hg] HAMILTON NKANSAH-AMANKRA [facility] 06-24-2024 09:20-0500 Systolic blood pressure 134 mm[Hg] HAMILTON NKANSAH-AMANKRA [facility] 06-24-2024 09:20-0500 Respiratory rate 18 /min HAMILTON NKANSAH-AMANKRA [facility] 06-24-2024 09:13-0500 Body temperature 98.06 [degF] HAMILTON NKANSAH-AMANKRA [facility] 06-24-2024 09:13-0500 Mean blood pressure 92 mm[Hg] HAMILTON NKANSAH-AMANKRA [facility] 06-24-2024 09:13-0500 Respiratory rate 16 /min HAMILTON NKANSAH-AMANKRA [facility] 06-24-2024 08:48-0500 Body temperature 97.7 [degF] HAMILTON NKANSAH-AMANKRA [facility] 06-24-2024 08:48-0500 Mean blood pressure 86 mm[Hg] HAMILTON NKANSAH-AMANKRA [facility] 06-24-2024 07:00-0500 Heart rate 100 /min HAMILTON NKANSAH-AMANKRA [facility] 06-24-2024 06:56-0500 Body temperature 98.24 [degF] HAMILTON NKANSAH-AMANKRA [facility] 06-21-2024 10:32-0500 Body height 170.18 cm Adamaris Liz GUARD RAIL INSTALLER Work Phone: [facility] 06-21-2024 10:32-0500 Body mass index (BMI) [Ratio] 28.8 kg/m2 Adamaris Liz GUARD RAIL INSTALLER Work Phone: [facility] 06-21-2024 10:32-0500 Body weight 83.46 kg Adamaris Liz GUARD RAIL INSTALLER Work Phone: [facility] 06-21-2024 10:32-0500 Diastolic blood pressure 85 mm[Hg] Adamaris Liz GUARD RAIL INSTALLER Work Phone: [facility] 06-21-2024 10:32-0500 Heart rate 102 /min Adamaris Liz GUARD RAIL INSTALLER Work Phone: [facility] 06-21-2024 10:32-0500 Systolic blood pressure 133 mm[Hg] Adamaris Liz GUARD RAIL INSTALLER Work Phone: [facility] 06-18-2024 15:48-0500 Diastolic blood pressure 89 mm[Hg] HAMILTON NKANSAH-AMANKRA [facility] 06-18-2024 15:48-0500 Heart rate 87 /min HAMILTON NKANSAH-AMANKRA [facility] 06-18-2024 15:48-0500 Mean blood pressure 106 mm[Hg] HAMILTON NKANSAH-AMANKRA [facility] 06-18-2024 15:48-0500 Systolic blood pressure 139 mm[Hg] HAMILTON NKANSAH-AMANKRA [facility] 06-18-2024 15:48-0500 Heart rate 59 /min HAMILTON NKANSAH-AMANKRA [facility] 06-18-2024 15:48-0500 SaO2% (BldA) [Mass fraction] 99 % HAMILTON NKANSAH-AMANKRA [facility] 06-18-2024 15:47-0500 Diastolic blood pressure 72 mm[Hg] HAMILTON NKANSAH-AMANKRA [facility] 06-18-2024 15:47-0500 Mean blood pressure 90 mm[Hg] HAMILTON NKANSAH-AMANKRA [facility] 06-18-2024 15:47-0500 Systolic blood pressure 126 mm[Hg] HAMILTON NKANSAH-AMANKRA [facility] 06-11-2024 09:42-0400 Blood Pressure Location HAMILTON NKANSAH-AMANKRA [facility] 06-11-2024 09:42-0400 Diastolic blood pressure 88 mm[Hg] HAMILTON NKANSAH-AMANKRA [facility] 06-11-2024 09:42-0400 Heart rate 103 /min HAMILTON NKANSAH-AMANKRA [facility] 06-11-2024 09:42-0400 Respiratory rate 20 /min HAMILTON NKANSAH-AMANKRA [facility] 06-11-2024 09:42-0400 Systolic blood pressure 149 mm[Hg] HAMILTON NKANSAH-AMANKRA [facility] 05-25-2024 10:30-0400 Blood Pressure Location KARON MARK [facility] 05-25-2024 10:30-0400 Diastolic blood pressure 74 mm[Hg] KARON MARK [facility] 05-25-2024 10:30-0400 Heart rate 104 /min KARON MARK [facility] 05-25-2024 10:30-0400 Systolic blood pressure 138 mm[Hg] KARON MARK [facility] 05-19-2024 10:20-0400 Body height 170.18 cm PHYSICIAN NO [facility] 05-19-2024 10:20-0400 Body mass index (BMI) [Ratio] 27.3 kg/m2 PHYSICIAN NO [facility] 05-19-2024 10:20-0400 Body temperature 97.8 [degF] PHYSICIAN NO [facility] 05-19-2024 10:20-0400 Body weight 79.37 kg PHYSICIAN NO [facility] 05-19-2024 10:20-0400 Diastolic blood pressure 95 mm[Hg] PHYSICIAN NO [facility] 05-19-2024 10:20-0400 Heart rate 111 /min PHYSICIAN NO [facility] 05-19-2024 10:20-0400 Respiratory rate 18 /min PHYSICIAN NO [facility] 05-19-2024 10:20-0400 SaO2% (BldA) [Mass fraction] 97 % PHYSICIAN NO [facility] 05-19-2024 10:20-0400 Systolic blood pressure 147 mm[Hg] PHYSICIAN NO [facility] 04-21-2024 09:04-0400 Body mass index (BMI) [Ratio] 27.27 kg/m2 Faiza BURTON Work Phone: [facility] 04-21-2024 09:04-0400 Body weight 78.98 kg Faiza BURTON Work Phone: [facility] 04-21-2024 09:04-0400 Diastolic blood pressure 70 mm[Hg] Faiza BURTON Work Phone: [facility] 04-21-2024 09:04-0400 Systolic blood pressure 120 mm[Hg] Faiza BURTON Work Phone: [facility] 01-30-2024 09:36-0400 Body height 170.18 cm PHYSICIAN NO [facility] 01-30-2024 09:36-0400 Body mass index (BMI) [Ratio] 26.7 kg/m2 PHYSICIAN NO [facility] 01-30-2024 09:36-0400 Body weight 77.56 kg PHYSICIAN NO [facility] 01-30-2024 09:36-0400 Diastolic blood pressure 80 mm[Hg] PHYSICIAN NO [facility] 01-30-2024 09:36-0400 Heart rate 108 /min PHYSICIAN NO [facility] 01-30-2024 09:36-0400 Systolic blood pressure 114 mm[Hg] PHYSICIAN NO [facility] 11-19-2023 13:56-0400 Blood Pressure Location Dieter EntelliumL [facility] [place] 11-19-2023 13:56-0400 Diastolic blood pressure 92 mm[Hg] Dieter NILL [facility] [place] 11-19-2023 13:56-0400 Heart rate 72 /min Dieter NILL [facility] [place] 11-19-2023 13:56-0400 Respiratory rate 16 /min Dieter EntelliumL [facility] [place] 11-19-2023 13:56-0400 Systolic blood pressure 132 mm[Hg] Dieter NILL [facility] [place] 11-12-2023 10:20-0400 Body height 170.18 cm PHYSICIAN NO [facility] 11-12-2023 10:20-0400 Body mass index (BMI) [Ratio] 28 kg/m2 PHYSICIAN NO [facility] 11-12-2023 10:20-0400 Body weight 81.36 kg PHYSICIAN NO [facility] 11-12-2023 10:20-0400 Diastolic blood pressure 77 mm[Hg] PHYSICIAN NO [facility] 11-12-2023 10:20-0400 Heart rate 124 /min PHYSICIAN NO [facility] 11-12-2023 10:20-0400 Systolic blood pressure 124 mm[Hg] PHYSICIAN NO [facility] 10-22-2023 09:23-0400 Body height 170.18 cm PHYSICIAN NO [facility] 10-22-2023 09:23-0400 Body mass index (BMI) [Ratio] 29.1 kg/m2 PHYSICIAN NO [facility] 10-22-2023 09:23-0400 Body weight 84.36 kg PHYSICIAN NO [facility] 10-22-2023 09:23-0400 Diastolic blood pressure 85 mm[Hg] PHYSICIAN NO [facility] 10-22-2023 09:23-0400 Heart rate 106 /min PHYSICIAN NO [facility] 10-22-2023 09:23-0400 Systolic blood pressure 140 mm[Hg] PHYSICIAN NO [facility] 05-29-2023 14:00-0400 Body height 170.18 cm Helio Barry Other [facility] [employer] Other 05-29-2023 14:00-0400 Body mass index (BMI) [Ratio] 29.44 kg/m2 Helio Barry Other [employer] Other 05-29-2023 14:00-0400 Body weight 85.28 kg Helio Barry Other [employer] Other 05-05-2023 08:30-0400 Body height 170.18 cm Seb Barry Other [employer] Other 05-05-2023 08:30-0400 Body mass index (BMI) [Ratio] 29.44 kg/m2 Seb Baryr Other [employer] Other 05-05-2023 08:30-0400 Body weight 85.28 kg Seb Barry Other [employer] Other 05-05-2023 08:30-0400 Diastolic blood pressure 82 mm[Hg] Seb Barry Other [employer] Other 05-05-2023 08:30-0400 Systolic blood pressure 128 mm[Hg] Seb Barry Other [employer] Other 04-01-2023 10:00-0400 Body height 170.18 cm Seb Barry Other [employer] Other 04-01-2023 10:00-0400 Body mass index (BMI) [Ratio] 29.13 kg/m2 Seb Barry Other [employer] Other 04-01-2023 10:00-0400 Body weight 84.37 kg Seb Barry Other [employer] Other 04-01-2023 10:00-0400 Diastolic blood pressure 86 mm[Hg] Seb Barry Other [employer] Other 04-01-2023 10:00-0400 Systolic blood pressure 148 mm[Hg] Seb Barry Other [employer] Other Encounters Encounter Date Encounter Type Care Provider Facility Start: 07-30-2024 ambulatory [facility] SIMISANDEEP-MARK Facility: [place] Start: 07-25-2024 End: 07-27-2024 Evaluation and management of inpatient DO Aditya MARIA Facility:[facility] Start: 07-23-2024 End: 07-23-2024 ambulatory HAMILTON SIMIEMI Facility: [facility] Start: 07-23-2024 End: 07-23-2024 Patient encounter procedure HAMILTON MALONE [facility] Start: 07-22-2024 End: 07-22-2024 Admission to same day surgery center [facility] GABBY [facility] Start: 07-22-2024 End: 07-22-2024 ambulatory HAMILTON VENCESRA Facility:[facility] Start: 07-12-2024 ambulatory PHYSICIAN NO FAMILY Fac ility:[facility] Start: 07-05-2024 End: 07-07-2024 Pre-admission assessment HAMILTON VALERAAH-AMANKRA [facility] Start: 07-05-2024 End: 07-05-2024 ambulatory HAMILTON NKANSAH-AMANKRA Facility:[facility] Start: 07-05-2024 End: 07-05-2024 Patient encounter procedure HAMILTON SIMIANSAH-AMANKRA [facility] Start: 06-24-2024 End: 06-24-2024 Admission to same day surgery center HAMILTON VALERAAH-AMANKRA [facility] Start: 06-24-2024 End: 06-24-2024 ambulatory HAMILTON NKANSAH-AMANKRA Facility:[facility] Start: 06-21-2024 End: 06-21-2024 ambulatory NON STAFF [facility] Work Phone: Start: 06-21-2024 End: 06-21-2024 Patient encounter procedure Adamaris Hill APRN Work Phone: Replaced By [facility] Work Phone: Start: 06-18-2024 End: 06-18-2024 ambulatory HAMILTON SIMIANSAH-AMANKRA Facility:[facility] Start: 06-18-2024 End: 06-18-2024 Patient encounter procedure HAMILTON SIMIANSAH-AMANKRA [facility] Start: 06-14-2024 Registered Recurring Adamaris gomez APRN Work Phone: [facility] Start: 06-11-2024 End: 06-11-2024 ambulatory HAMILTON NKANSAH-AMANKRA Facility: [place] Start: 06-11-2024 End: 06-11-2024 Patient encounter procedure HAMILTON MALONE [facility] [place] Start: 06-04-2024 End: 06-04-2024 Departed Referred Adamaris Hill APRN Work Phone: [facility] Work Phone: Start: 06-04-2024 End: 06-04-2024 ambulatory PHYSICIAN NO [facility] Work Phone: Start: 06-04-2024 End: 06-04-2024 Patient encounter procedure PHYSICIAN NO [facility] Work Phone: Start: 05-26-2024 Non-patient / Non-visit PHYSICIAN NO [facility] Work Phone: Start: 05-25-2024 End: 05-25-2024 ambulatory KARON FLORES Facility:[facility] Start: 05-25-2024 End: 05-25-2024 Patient encounter procedure [facility]ARON FLORES [facility] Start: 05-19-2024 End: 05-19-2024 Departed Referred PHYSICIAN NO [facility] Work Phone: Start: 05-19-2024 End: 05-19-2024 ambulatory PHYSICIAN NO [facility] Work Phone: Start: 05-19-2024 End: 05-19-2024 Patient encounter procedure PHYSICIAN NO [facility] Work Phone: Start: 05-04-2024 End: 05-05-2024 Clinisync Result Encounter Faiza BURTON Work Phone: [facility] External [facility] Unsolicited Start: 05-04-2024 End: 05-05-2024 Clinisync Result Encounter Faiza BRUTON Work Phone: [facility] Unsolicited Start: 05-04-2024 Non-patient / Non-visit PHYSICIAN NO [facility] Work Phone: Start: 05-04-2024 Registered Recurring PHYSICIAN NO [facility] Credible Start: 04-21-2024 End: 04-21-2024 Bamboo flowsheet Faiza BURTON Work Phone: [facility] Start: 04-21-2024 End: 04-27-2024 Clinisync Result Encounter Faiza BURTON Work Phone: [facility] Unsolicited Start: 04-21-2024 End: 04-23-2024 External Result Encounter Faiza BURTON Work Phone: [facility] Unsolicited Start: 04-21-2024 End: 04-27-2024 External Result Encounter Faiza BURTON Work Phone: [facility] Unsolicited Start: 04-21-2024 Non-patient / Non-visit PHYSICIAN NO [facility] Work Phone: Start: 04-21-2024 End: 04-21-2024 ambulatory FAIZA ALMENDAREZ Not Available Start: 04-21-2024 End: 04-21-2024 Patient encounter procedure Faiza BURTON Work Phone: [facility] Start: 04-21-2024 End: 04-21-2024 Periodic preventive med est patient 40-64yrs Faiza BURTON Work Phone: [facility] Comment on above: Exposure to STD; Vaginal discharge; Hormone imbalance; Sexually transmitted disease exposure; Well woman exam with routine gynecological exam; Breast cancer screening by mammogram; Postmenopausal state Start: 04-09-2024 Non-patient / Non-visit PHYSICIAN NO [facility] Work Phone: Start: 02-26-2024 End: 02-26-2024 ambulatory Beryl Henderson Facility:[facility] Start: 02-26-2024 End: 02-26-2024 Patient encounter procedure Beryl Henderson [facility] Start: 01-30-2024 End: 01-30-2024 ambulatory PHYSICIAN NO [facility] Work Phone: Start: 01-30-2024 End: 01-30-2024 Patient encounter procedure PHYSICIAN NO [facility] Work Phone: Start: 01-14-2024 End: 01-14-2024 ambulatory Dieter R NILL Facility:[facility] Start: 01-14-2024 End: 01-14-2024 Patient encounter procedure Dieter R NILL [facility] [place] Start: 01-13-2024 ambulatory Dieter R NILL Facility : [facility] Start: 12-31-2023 End: 12-31-2023 ambulatory PHYSICIAN NO [facility] Work Phone: Start: 12-31-2023 End: 12-31-2023 Departed Referred PHYSICIAN NO [facility] Start: 12-31-2023 End: 12-31-2023 ambulatory Dieter R NILL Facility:[id number] Start: 12-09-2023 Registered Recurring PHYSICIAN NO [facility]- [facility] Start: 11-19-2023 End: 11-19-2023 ambulatory Dieter R NILL Facility: [facility] Start: 11-19-2023 End: 11-19-2023 Patient encounter procedure Dieter R NILL [facility] Start: 11-18-2023 Non-patient / Non-visit PHYSICIAN NO [facility] Work Phone: Start: 11-17-2023 ambulatory Dieter NILL Facility:[facility] Start: 11-14-2023 ambulatory Dieter NILL Facility:[facility] Start: 11-12-2023 End: 11-12-2023 ambulatory PHYSICIAN NO [facility] Work Phone: Start: 11-12-2023 End: 11-12-2023 Patient encounter procedure PHYSICIAN NO [facility] Work Phone: Start: 11-04-2023 Registered Recurring PHYSICIAN NO [facility] Start: 10-22-2023 Patient encounter status PHYSICIAN N O [facility] Start: 10-22-2023 End: 10-22-2023 Encounter for general adult medical examination without abnormal findings PHYSICIAN NO [facility] Start: 10-22-2023 End: 10-22-2023 Patient encounter procedure PHYSICIAN NO [facility] Work Phone: Start: 09-09-2023 Registered Recurring PHYSICIAN NO [facility] Start: 05-30-2023 End: 05-30-2023 ambulatory Helio Barry Other [employer] Other Start: 05-30-2023 Telephone encounter Helio Barry [facility] 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 Start: 05-29-2023 End: 05-29-2023 ambulatory MD Seb Barry Work Phone: [facility] Work Phone: Start: 05-29-2023 End: 05-29-2023 Patient encounter procedure MD Seb Barry Work Phone: [facility]-XRay [facility] Work Phone: Start: 05-16-2023 End: 05-16-2023 ambulatory Seb Barry Other [employer] Other Start: 05-16-2023 Telephone encounter Seb Barry [facility] Start: 05-05-2023 End: 05-05-2023 ambulatory Seb Barry Other [employer] Other Start: 05-05-2023 Office outpatient vi sit 15 minutes Seb Barry [facility] Start: 04-07-2023 End: 04-07-2023 ambulatory Seb Barry Other [employer] Other Start: 04-07-2023 Telephone encounter Seb Barry [facility] Start: 04-01-2023 End: 04-01-2023 ambulatory Seb Barry Other [employer] Other Start: 04-01-2023 Office outpatient vi sit 15 minutes Seb Barry [facility] Start: 12-27-2022 ambulatory GOLDY GLOVER Facility: [facility] Start: 12-23-2022 End: 12-23-2022 ambulatory Goldy Glover Other [employer] Other Start: 12-23-2022 Office outpatient ne w 45 minutes Goldy Glover [facility] Start: 12-06-2022 Telephone encounter Seb Barry [facility] Start: 12-06-2022 End: 12-07-[address] SEB BARRY [employer] Other Start: 11-26-2022 End: 11-27-2022 ambulatory REGULO HINDS Facility:[facility] Start: 11-14-2022 End: 11-15-[address] SEB BARRY Facility:[facility] Start: 05-17-2022 Encounter for genera l adult medical examination without abnormal findings DR SEB BARRY [facility] Start: 05-15-2022 End: 05-16-[address] SEB BARRY Facility:[facility] Start: 05-15-2022 End: 05-16-2022 Encounter for general adult medical examination without abnormal findings DR SEB BARRY Facility:[facility] Start: 05-14-2022 Adult health examination Fidelina Barry Other [employer] Other Start: 04-18-2022 End: 04-18-2022 ambulatory Paresh Marily Other [employer] Other Start: 04-18-2022 Telephone encounter Paresh Marily [facility] Start: 02-27-2022 End: 02-27-2022 ambulatory Paresh Marily Other [employer] Other Start: 02-27-2022 Telephone encounter Paresh Marily [facility] [employer] Start: 02-05-2022 ambulatory PARESH MARILY Facility:[facility] Start: 12-13-2021 End: 12-13-2021 ambulatory Paresh Marily Other [employer] Other Start: 12-13-2021 Telephone encounter Paresh Marily [facility] Start: 09-19-2021 End: 09-19-2021 ambulatory Paresh Marily Other [employer] Other Start: 09-19-2021 Telephone encounter Paresh Marily [facility] Start: 09-05-2021 End: 09-05-2021 ambulatory Paresh Marily Other [employer] Other Start: 09-05-2021 Telephone encounter Paresh Marily [facility] Procedures Date Procedure Procedure Detail Performing Clinician Start: 07-22-2024 Cystoscopy HAMILTON NK SANDEEP-AMANKRA Start: 06-24-2024 Cystoscopy HAMILTON NK SANDEEP-AMANKRA Start: 06-04-2024 Urine culture Adamaris Gr ob GUARD RAIL INSTALLER Work Phone: Start: 05-19-2024 Bacteria identified in Urine by Culture PHYSICIAN NO FAMILY Start: 05-19-2024 Urine culture Adamaris Gr ob GUARD RAIL INSTALLER Work Phone: Start: 05-04-2024 HIV AB/P24 AG WITH REFLEX Faiza BURTON Work Phone: Start: 04-21-2024 IGP,APTIMA HPV,AGE GDLN Faiza BURTON Work Phone: Start: 04-21-2024 Microscopic observat ion [Identifier] in Cervix by Cyto stain Faiza BURTON Work Phone: Start: 04-21-2024 URETHRITIS/DISCHARGE PLUS VAGINITIS (HTRX) Faiza BURTON Work Phone: Start: 05-29-2023 X-ray of lumbar spin e, six views including bending views MD Seb Barry Work Phone: Start: 09-02-2019 Mammography Faiza BURTON Work Phone: History of augmentat ion of breast KARON FLORES History of bilateral breast implants Dieter BUSTOSL History of nasal sin us surgery Dieter BUSTOSL Ligation of fallopian tube Sarath LOCO Screening for malign ant neoplasm of breast Seb Barry Other Screening for malign ant neoplasm of colon Seb Barry Other Stapedectomy Dieter BUSTOSL Plan of Treatment Date Care Activity Detail Author Start: 04-21-2029 Screening for malignant neoplasm of cervix [facility] Start: 04-25-2025 End: 04-25-2025 Patient encounter procedure 04/25/2025 9:00 AM EDT Office Visit [facility] [address] [address] Faiza Almendarez PA [address] [place], [place] [id number] [facility] Start: 06-04-2024 [facility] [facility] Start: 05-19-2024 Bacteria identified in Urine by Culture Urine Culture [facility] Start: 05-19-2024 Urine culture [facility] Start: 04-21-2024 End: 04-21-2025 DXA Skeletal system Views for bone density DEXA bone density Imaging Routine Postmenopausal state Expected: 04/21/2024 (Approximate), Expires: 04/21/2025 [facility] Comment on above: Expected: 04/21/2024 (Approximate), Expires: 04/21/2025 Start: 04-21-2024 End: 06-21-2025 MG Breast - bilateral Screening Bilateral screening mammogram Imaging Routine Breast cancer screening by mammogram Expected: 04/21/2024, Expires: 06/21/2025 [facility] Comment on above: Expected: 04/21/2024 , Expires: 06/21/2025 Start: 04-11-2024 Influenza vaccination Influenza Vacc ine (#1) [facility] Start: 11-12-2023 Patient referral [facility] Work Phone: Start: 09-02-2020 Screening for malignant neoplasm of breast Mammogram [facility] Start: 1992 Screening for malignant neoplasm of cervix [facility] Start: 1983 Screening for malignant neoplasm of cervix Pap Smear [facility] Start: 1962 Screening for malignant neoplasm of colon [facility] CHLAMYDIA TRACHOMATI S (GENITO/STI) CHLAMYDIA TRACHOMATIS (GENITO/STI) Lab Routine Exposure to STD Vaginal discharge Ordered: 04/21/2024 [facility] Comment on above: Ordered: 04/21/2024 Hepatitis B virus surface Ag [Presence] in Serum or Plasma by Immunoassay Hepatitis B surface antigen Lab Routine Sexually transmitted disease exposure Ordered: 04/21/2024 [facility] Comment on above: Ordered: 04/21/2024 HIV-1/HIV-2 antigen/antibody combination immunoassay HIV-1 and HIV-2 antibodies Lab Routine Sexually transmitted disease exposure Ordered: 04/21/2024 [facility] Comment on above: Ordered: 04/21/2024 MG Breast - bilatera l Diagnostic [facility] Neisseria gonorrhoea e DNA [Presence] in Unspecified specimen by LILLY with probe detection Neisseria gonorrhea DNA probe, direct Lab Routine Exposure to STD Vaginal discharge Ordered: 04/21/2024 [facility] Comment on above: Ordered: 04/21/2024 Patient Education Yearly Physica l for Adults [facility] Work Phone: Patient referral [facility] Work Phone: Reagin Ab [Presence] in Serum by RPR RPR Lab Routine Sexually transmitted disease exposure Ordered: 04/21/2024 [employer] Comment on above: Ordered: 04/21/2024 SURESWAB(R) ADVANCED VAGINITIS PLUS, TMA SURESWAB(R) ADVANCED VAGINITIS PLUS, TMA Pathology and Cytology Routine Exposure to STD Vaginal discharge Ordered: 04/21/2024 [facility] Work Phone: Comment on above: Ordered: 04/21/2024 THIN PREP TIS PAP AN D HR HPV DNA THIN PREP TIS PAP AND HR HPV DNA Pathology and Cytology Routine Well woman exam with routine gynecological exam Ordered: 04/21/2024 [facility] Comment on above: Ordered: 04/21/2024 Immunizations Immunization Date Immunization Notes Care Provider Ronnie bran 10-12-2022 influenza virus vaccine, unspecified formulation Dieter LOCO [facility] [place] 10-12-2022 influenza, injectabl e, quadrivalent, preservative free Seb Barry Other [facility] 02-19-2022 diphtheria, tetanus toxoids and acellular pertussis vaccine, unspecified formulation Seb Barry Other [facility] 02-19-2022 tetanus toxoid, reduced diphtheria toxoid, and acellular pertussis vaccine, adsorbed Seb Barry Other [facility] 08-07-2021 COVID-19 Vaccine Moderna - Documentation Purposes Only Seb Barry Other [facility] 05-28-2021 influenza virus vaccine, split virus (incl. purified surface antigen) Seb Barry Other [employer] Other 05-28-2021 influenza virus vaccine, unspecified formulation PHYSICIAN NO FAMILY [facility] 12-09-2020 COVID-19 Vaccine Moderna - Documentation Purposes Only Seb Barry Other [facility] 11-11-2020 COVID-19 Vaccine Moderna - Documentation Purposes Only Seb Barry Other [facility] Payers Date Payer Category Payer Managed Care HMO (unspecified) RAFA CRAIG [id number] 2021-Present [address] [place] [address] HMO [id number] 1960 Unknown [id number] 2.16.840.1.329639.3.579.2 .593 1962 Unknown [id number] 2.16.840.1.609629.3.579.2 .593 1962 Unknown [id number] 2.16.840.1.724958.3.579.2 .593 1962 Unknown [id number] 2.16.840.1.772237.3.579.2 .593 1962 Unknown [id number] 2.16.840.1.914900.3.579.2 .593 1962 Unknown [id number] 2.16.840.1.903452.3.579.2 .593 1962 Unknown [id number] 2.16.840.1.733654.3.579.2 .1259 1962 Unknown [id number] 2.16.840.1.452590.3.579.2 .727 1962 Unknown [id number] 2.16.840.1.164902.3.579.2 .727 1962 Unknown [id number] 2.16.840.1.643796.3.579.2 .727 1962 Unknown [id number] 2.16.840.1.997432.3.579.2 .727 1962 Unknown [id number] 2.16.840.1.281901.3.579.2 .727 1962 Unknown [id number] 2.16.840.1.560805.3.579.2 .727 1962 Unknown [id number] 2.16.840.1.846247.3.579.2 .727 1962 Unknown [id number] 2.16.840.1.118125.3.579.2 .727 1962 Unknown [id number] 2.16.840.1.406816.3.579.2 .72 1962 Unknown [id number] 2.16.840.1.326253.3.579.2 .1962 Unknown [id number] 2.16.840.1.116898.3.579.2 .1962 Unknown [id number] 2.16.840.1.956053.3.579.2 .1962 Unknown [id number] 2.16.840.1.500471.3.579.2 .1962 Unknown [id number] 2.16.840.1.995370.3.579.2 .1962 Unknown [id number] 2.16.840.1.784159.3.579.2 .1962 Unknown [id number] 2.16.840.1.741465.3.579.2 .1962 Unknown [id number] 2.16.840.1.985831.3.579.2 .727 1959 Private Health Insurance [id number] 2.16.840.1.316447.19 1959 Private Health Insurance [id number] Self-pay [facility] [id number] 2.16.840.1.826854.19 Private Health Insurance [id number] Unknown [id number] 2.16.840.1.856162.3.579.2 .531 Unknown [id number] 2.16.840.1.108673.3.579.2 .531 Unknown [id number] 2.16.840.1.542703.3.579.2 .531 Social History Date Type Detail Facility Sex Assigned At [facility] Start: 1960 Sex Assigned At Female [facility] Start: 05-29-2023 End: 07-05-2024 Tobacco smoking status NHIS Never smoked tobacco (finding) [facility] Tobacco smoking status Never [facility] [place] Start: 06-21-2024 Sex Female (finding) [facility] Tobacco smoking status NHIS Tobacco smoking consumption unknown [facility] Start: 1960 Sex assigned at Not on file [facility] Medical Equipment Procedure Code Equipment Code Equipment Origin al Text Equipment Identifier Dates TVT SUDHAKAR MALONE MD, HAMILTON 07/22/24 Unknown Other FDA Start: 07-22-2024 TVT SUDHAKAR MALONE MD, HAMILTON 07/22/24 Unknown Other FDA Start: 07-22-2024 TVT SUDHAKAR MALONE MD, HAMILTON 07/22/24 Unknown Other FDA Start: 07-22-2024 Functional Status Date Assessment Result Facility 07-25-2024 Functional Status No [facility] 07-06-2024 Functional Status No [facility] 07-05-2024 Functional Status N/A [facility] [place] 06-18-2024 Functional Status No [facility] 06-11-2024 Functional Status N/A [facility] 05-25-2024 Functional Status N/A [facility] 11-19-2023 [facility] Status N[facility]-13-2021 to 07-27-2024 Note Date & Type Note Facility 07-27-2024 Evaluation + Plan note Extrac sheeba from: Title:Discharge Note Author:OJUKWU Eri RAMIREZ D ate:07/27/24 Stable Discharge To, Anticipated II - Home independently Discharged to - Home independently Transported by, Anticipated - Friend Home Discharge Diet(s): Regular (07/26/24 09:38:00) Prescriptions No active prescription medications Home Colace 100 mg Cap, 100 mg= 1 cap(s), Oral, BID lithium 300 mg oral tablet, 300 mg= 1 tab(s), Oral, Bedtime omeprazole 20 mg Cap-DR, 20 mg= 1 cap(s), Oral, Daily oxcarbazepine 300 mg Tab, 300 mg= 1 tab(s), Oral, BID tretinoin Top 0.1% Crm, 1 susan, Topical, Once a day (at bedtime) venlafaxine, 225 mg, Oral, Daily With When Contact Information HAMILTON MALONE Within 5 to 7 days [address] [place] [address] [phone] Business (1) Additional Instructions: Call for followup appointment SEB BARRY Within 5 to 7 days [facility] Business (1) Additional Instructions: Call for followup appointment Sepsis, Diagnosis, Adult Extracted from: Title:APSO Note Author:Eri WALDROP MD Date:09/26/23 64-year-old female with hist ory of coronary artery disease, NJ, sleep apnea, bipolar disorder, recent mid urethral sling implantation presented from an outside hospital with complaints of lower abdominal pain, pelvic pain, swelling and was admitted with acute kidney injury secondary to acute urinary retention, constipation sepsis secondary to suspected Labial cellulitis.. 1. Abdominal pain (R10.9: Unspecified abdominal pain) Secondary to acute urinary retention present on admission. Resolved. Avoid narcotics. Ordered: [facility] Hospital Care/Day Moderate 35 Minutes [id number] 2. Acute kidney injury (N17.9: Acute kidney failure, unspecified) Acute kidney injury secondary to ATN from dehydration and urinary retention/obstruction. Resolved. Status post Lyn catheter placement. Treated with IV fluid. Discontinued IV fluid. Ordered: Sbsq Hospital Care/Day Moderate 35 Minutes [id number] 3. Acute urinary retention (R33.8: Other retention of urine) Secondary to recent surgery. Status post Lyn catheter placement. Ordered: Sbsq Hospital Care/Day Moderate 35 Minutes [id number] 4. Constipation (K59.00: Constipation, unspecified) Postoperatively. Resolved. Avoid narcotics. Continue on Colace. [facility] Moderate 35 Minutes [id number] 5. Sepsis (A41.9: Sepsis, unspecified organism) Suspected to be present at the outside facility patient had leukocytosis, tachycardia and elevated lactic acid presumed secondary to labial cellulitis. Sepsis resolved. Treating with IV cefepime. Discontinued IV fluid. Ordered: [facility]Day Moderate 35 Minutes 65040 6. Obese (E66.9: Obesity, unspecified) Recommend therapeutic lifestyle modification changes. 7. Cystocele with rectocele (N81.10: Cystocele, unspecified) Status post surgery. Urology consult reviewed by me. I appreciate and agree with recommendations. 8. Gastroesophageal reflux disease (K21.9: Gastro-esophageal reflux disease without esophagitis) Supportive care. 9. Bipolar illness (F31.9: Bipolar disorder, unspecified) Continue on lithium. 10. On deep vein thrombosis (DVT) prophylaxis (Z79.899: Other half-way (current) drug therapy) Lovenox. Disposition: Home soon pending final urology recommendations. I discussed the diagnosis and plan of care with the patient at the bedside. Moderate level of MDM based on addressing above issues. This documentation was transcribed using voice recognition software. Several attempts were made to ensure accuracy. However inadvertent computerized field care coordinator errors may be present. Eri Waldrop. Hospitalist. Orders: Sodium Chloride 0.9% intravenous solution 1,000 mL, 1,000 mL, IV, 20 mL/hr, Routine, Start date 07/26/24 7:25:00 EST, 50 hour(s), Total volume (mL): 1,000, 87.8 kg, 2.04, m2 Extracted from: Title:Urinary Retention * Author:Shad RAMIREZ, Keagan Clemens. Date:07/25/24 Impression and Plan 64 year old female with urinary retention, acute kidney injury, pelvic pain, constipation status post mid urethral sling placement 07/22/2024 Plan: On examination today, patient has lower abdominal and pelvic pain, but no additional signs of infection. No induration, erythema, or edema of the lower abdomen or perineum. Symptoms likely related to postoperative pain and inflammation around the mesh. Continue to monitor for change on exam. CT scan showed no evidence of drainable collection. No leukocytosis. Acute kidney injury may be related to urinary retention and dehydration secondary to nausea and vomiting. Continue fluid resuscitation and repeat BMP tomorrow. Encourage ambulation. Avoid narcotic pain medications as these may be relating to nausea and vomiting. Start scheduled Tylenol. Continue Colace for constipation. Extracted from: Title:Admission H & P Author:Aditya MARIA DO Date:07/25/24 1. Sepsis (A41.9: Sepsis, un specified organism) Leukocytosis, tachycardia, lactic acidosis. Concern for possible cellulitis at the vaginal introitus given induration and mild erythema and significant pain. Will empirically broaden antibiotic to cefepime 2 g IV every 24 hours (renally dosed). Blood cultures were obtained at [facility] prior to initiation of Cipro and clindamycin. Patient has been adequately fluid resuscitated outside hospital. Will maintain patient on normal saline at 150 mL/h. 2. Abdominal pain (R10.9: Unspecified abdominal pain) Will use morphine as needed. Suspect pain being caused by cellulitis and recent surgery. Will consult urology. 3. Acute kidney injury (N17.9: Acute kidney failure, unspecified) Patient has been adequately hydrated in the emergency department. Will maintain on normal saline as noted above. Will check creatinine level and proceed accordingly. No history of CKD. 4. Cystocele with rectocele (N81.10: Cystocele, unspecified) Supportive care. Maintain Lyn. Await urology input. 5. Gastroesophageal reflux disease (K21.9: Gastro-esophageal reflux disease without esophagitis) Continue H2 marissa 6. Bipolar illness (F31.9: Bipolar disorder, unspecified) Will check lithium level and dose accordingly given renal function. Continue oxcarbazepine. 7. On deep vein thrombosis (DVT) prophylaxis (Z79.899: Other marketing research intern (current) drug therapy) SCD, enoxaparin Orders: acetaminophen, 650 mg = 2 tab(s), Tab, Oral, q6hr PRN Pain, Routine, Start date 07/25/24 3:54:00 EST, 07/25/24 3:54:00 EST cefepime + Sodium Chloride 0.9% intravenous solution 100 mL, 2,000 mg = 1 EA, IV Piggyback, q24hr, Routine, Start date 07/25/24 5:00:00 EST, 200 mL/hr, Infuse over 30 minute(s), 07/25/24 4:43:00 EST diphenhydrAMINE, 25 mg = 1 cap(s), Cap, Oral, q6hr PRN Itching, Routine, Start date 07/25/24 3:54:00 EST, 07/25/24 3:54:00 EST enoxaparin, 40 mg = 0.4 mL, Injection, SubCutaneous, Daily for 30 day(s), Stop date 08/24/24 8:59:00 EST, Routine, Start date 07/25/24 9:00:00 EST, 07/25/24 3:54:00 EST hydrALAZINE, 10 mg = 0.5 mL, Injection, IV Push, q6hr PRN Other (see comment), Routine, Start date 07/25/24 3:54:00 EST, 07/25/24 3:54:00 EST lithium, 300 mg = 2 EA, Cap, Oral, Bedtime, Routine, Start date 07/25/24 21:00:00 EST, 07/25/24 3:48:00 EST morphine, 2 mg = 1 mL, Injection, IV Push, q3hr PRN Pain for 5 day(s), Stop date 07/30/24 3:49:00 EST, Routine, Start date 07/25/24 3:50:00 EST, 07/25/24 3:50:00 EST ondansetron, 4 mg = 2 mL, Injection, IV Push, q6hr PRN Nausea, Routine, Start date 07/25/24 3:54:00 EST, 07/25/24 3:54:00 EST oxcarbazepine, 300 mg = 1 tab(s), Tab, Oral, Daily, Routine, Start date 07/25/24 9:00:00 EST, 07/25/24 3:49:00 EST oxcarbazepine, 600 mg = 2 tab(s), Tab, Oral, Bedtime, Routine, Start date 07/25/24 21:00:00 EST, 07/25/24 3:50:00 EST pantoprazole, 40 mg = 1 tab(s), Tab-DR, Oral, Daily, Routine, Start date 07/25/24 9:00:00 EST, 07/25/24 3:48:00 EST Sodium Chloride 0.9% intravenous solution 1,000 mL, 1,000 mL, IV, 150 mL/hr, Routine, Start date 07/25/24 3:54:00 EST, 6.7 hour(s), Total volume (mL): 1,000, 81.8 kg, 1.99, m2 venlafaxine, 225 mg = 3 cap(s), Cap-ER, Oral, Daily, Routine, Start date 07/25/24 9:00:00 EST, 07/25/24 3:49:00 EST Ambulate with Assistance Below the Knee Intermittent Pneumatic Compression Device Cardiac Monitoring CBC w/ Auto Diff Comprehensive Metabolic Panel Consult to Urology Lactic Acid Loring Lev Notify Provider Vital Signs Notify Provider Vital Signs Regular Diet Resuscitation Status - Full UA with Cult Rflx Vital Signs Weight Anticipated stay greater than 2 midnights due to above Addendum by Delmy Ramos DO on July 25, 2024 10:49:24 EST Patient seen and examined this morning. When I walked in she was getting ready to order breakfast and was calm but when she saw me she started complaining of pain hyperventilating and becoming anxious. She has had her pelvis is very tender and very painful. I was pressing on her abdomen and there was no guarding or rebound. She was asking for an emesis basin that she was getting nauseated. Patient is asking for something other than morphine and she specifically asked for Percocet. No other complaints. Constitutional: Awake and alert; oriented x 3 with no apparent distress or respiratory distress Head/neck: Neck supple with no palpable lymphadenopathy, bruits or masses; trachea midline Chest/lungs: Clear to auscultation bilaterally no wheezes or rhonchi noted bilaterally Cardiovascular: Regular rate and rhythm; normal S1-S2 with no murmur; no pitting edema and 2+ pulses bilaterally Gastrointestinal: Soft, nontender, nondistended, positive bowel sounds; no guarding or rebound Neurological: Nonfocal; cranial nerves II through XII appear intact Psychological: Pleasant affect 64-year-old female admitted for sepsis, abdominal pain status post elective urethral string procedure July 22 with rectocele and cystocele repair. Was also noted to have acute kidney injury with a creatinine of 4.0. This morning after fluid hydration her creatinine is 1.8. Patient has a history of bipolar disorder, anxiety, hypertension, GERD, hyperlipidemia, coronary artery disease with a history of NJ, sleep apnea and radiculopathy. A/P: 1. Sepsis - Secondary to abdominal pain with recent surgery and acute kidney injury - Follow-up cultures obtained at [facility] - Continue IV cefepime; she can received Cipro and clindamycin at [place] [facility] - She did get adequate fluid resuscitation in the outlying emergency room - She is currently on normal saline 150 mL an hour 2. Abdominal pain - Morphine as needed; I did add Percocet per her request - Urology consulted 3. Acute kidney injury - After fluid resuscitation, her creatinine went from 4.0 at [place] [facility] to 1.8 - Check lab in a.m. 4. Bipolar disorder - We did add back her lithium plus her oxcarbazepine and venlafaxine DVT prophylaxis with SCDs and subcu enoxaparin Ulcer prophylaxis with p.o. PPI Nursing is also asking something for anxiety is very anxious on occasion - po ativan added as needed Future Appointments Appointment Date:07/30/2024 02:30:00 PM Scheduled Provider:HAMILTON MALONE MD Location:[facility] Appointment Type:URO Office Visit [facility] 12-17-2024 NoteDischarge Summary Admission and Discharge Information Admit Date/Time:07/25/2024 00:58 Admitting Physician - Aditya MARIA DO Consulting Physician - Brandon Kulkarni MD Admitting Diagnoses: 5. Sepsis, 07/25/2024 Discharge Order Date Discharge Patient - Ordered -- 07/27/24 7:40:00 EST Discharge Diagnoses 1. Abdominal pain, 07/25/2024 2. Acute kidney injury, 07/25/2024 3. Acute urinary retention, 07/26/2024 4. Constipation, 07/26/2024 5. Sepsis, 07/25/2024 6. Obese, 07/26/2024 7. Cystocele with rectocele, 07/25/2024 8. Gastroesophageal reflux disease, 07/25/2024 9. Bipolar illness, 07/25/2024 10. On deep vein thrombosis (DVT) prophylaxis, 07/25/2024 Procedure History Cystoscopy (07/22/2024), Cystoscopy (06/24/2024), History of augmentation of breast, History of bilateral breast implants, History of nasal sinus surgery, Stapedectomy, Tubal ligation. Hospital Course 64-year-old female with history of coronary artery disease, NJ, sleep apnea, bipolar disorder, rectocele/cystocele - recent mid urethral sling implantation presented from an outside hospital with complaints of lower abdominal pain, pelvic pain and swelling. She was subsequently admitted to [facility] with acute kidney injury secondary to ATN from acute urinary retention and Bactrim, constipation, sepsis secondary to suspected labial cellulitis. She was seen in consultation by the urologist. She was treated with IV cefepime, IV fluid, IV antibiotics and a Lyn catheter placement. Acute kidney injury resolved. Sepsis resolved and she was anxious to be discharged home. A voiding trial was performed however patient failed and was still retaining urine. So Lyn catheter was replaced. She was seen prior to discharge and remained in an improved and stable condition for discharge and was subsequently discharged home. She will follow-up with her PCP. She has been advised to avoid Bactrim because of the acute kidney injury. She will follow-up with her PCP as well as the urologist accordingly. Discharge time: 32 minutes. I spent 32 minutes in seeing, evaluating, educating patient on her conditions, coordinating care plan, medication reconciliation, speaking with consultants, nursing staff and case management. Services Consulted - Completed -- 07/25/24 5:00:36 EST Consult to Urology - Ordered -- 07/25/24 3:51:00 EST, recent surg - sepsis, Consult and Co-manage Physical Exam Vitals & Measurements T: 36.7 ???C(Axillary) TMIN: 36.5 ???C(Oral) TMAX: 36.7 ???C(Oral) HR: 119(Monitored) RR: 16 BP: 166/100 SpO2: 96% HT: 170.18 cm WT: 89.2 kg General: alert, no acute distress Skin: warm, dry Head: no trauma, normocephalic Neck: Trachea midline, no adenopathy, no tenderness Eye: normal conjunctiva, sclera clear ENMT: TM's clear, oral mucosa moist, no pharyngeal erythema or exudate Cardiovascular: regular rate and rhythm, normal peripheral perfusion Respiratory: Lungs CTA, respirations non labored Chest wall: no deformity. Gastrointestinal: soft, non distended, no tenderness, no guarding. Obese. Bowel sounds intact. Genitourinary: Lyn catheter in place and draining urine. Back: No tenderness, Normal ROM, Normal alignment. Extremities: no deformity, no trauma Neurological: oriented x 4, LOC appropriate for age, CN II-XII intact, motor strength equal & normal bilaterally, sensation equal & normal bilaterally, speech normal Psychiatric: cooperative, affect appropriate for age, normal judgement, normal psychiatric thoughts. Discharge Plan Patient Discharge Condition Stable Discharge Disposition Discharge To, Anticipated II - Home independently Discharged to - Home independently Transported by, Anticipated - Friend Home Discharge Diet Discharge Diet(s): Regular (07/26/24 09:38:00) Discharge Medication List Prescriptions No active prescription medications Home Colace 100 mg Cap, 100 mg= 1 cap(s), Oral, BID lithium 300 mg oral tablet, 300 mg= 1 tab(s), Oral, Bedtime omeprazole 20 mg Cap-DR, 20 mg= 1 cap(s), Oral, Daily oxcarbazepine 300 mg Tab, 300 mg= 1 tab(s), Oral, BID tretinoin Top 0.1% Crm, 1 susan, Topical, Once a day (at bedtime) venlafaxine, 225 mg, Oral, Daily Follow-up With When Contact Information HAMILTON MALONE Within 5 to 7 days [facility] [place] [address] [phone] Business (1) Additional Instructions: Call for followup appointment SEB BARRY Within 5 to [address] Business (1) Additional Instructions: Call for followup appointment Patient Education [facility]:Result Comment: Electronically Signed By: KARLI RAMIREZ, Eri\.br\Date and Time Signed: 07/27/24 08:46 [id number] NoteProgress Note-Nurse did a void trial, failed after two outputs. First bladder scan 480, second 841. Called Dr Dorantes, placed Lyn catheter for retention; well tolerated by patient. Great output; see documentation. InformDr enedinawa, Dr Cook ok with d/c with Lyn catheter to home when medically stable.[facility]12-16-2024 Hospital Discharge instructions Patient Education 07/26/2024 11:18:35 Sepsis, Diagnosis, Adult Sepsis, Diagnosis, Adult Sepsis is a serious bodily reaction to an infection. The infection that triggers sepsis may be froma bacteria, virus, or fungus. Sepsis can result from an infection in any part of your body. Infections that commonly lead to sepsis include skin, lung, and urinary tract infections. Sepsis is a medical emergency that must be treated right away in a hospital. In severe cases, it can lead to septic shock. Septic shock can weaken your heart and cause your blood pressure to drop. This can cause your central nervous system and your body's organs to stop working. What are the causes? This condition is caused by a severe reaction to infections from bacteria, viruses, or fungus. The germs that most often lead to sepsis include: Escherichia coli (E. coli) bacteria. Staphylococcus aureus (staph) bacteria. Some types of Streptococcus bacteria. The most common infections affect these organs: The lung (pneumonia). The kidneys or bladder (urinary tract infection). The skin (cellulitis). The bowel, gallbladder, or pancreas. What increases the risk? You are more likely to develop this condition if: Your body's disease-fighting system (immune system) is weakened. You are age 65 or older. You are male. You had surgery or you have been hospitalized. You have these devices inserted into your body: ?A small, thin tube (catheter). ?IV line. ?Breathing tube. ?Drainage tube. You are not getting enough nutrients from food (malnourished). You have a chronic disease, such as cancer, lung disease, kidney disease, or diabetes. What are the signs or symptoms? Symptoms of this condition may include: Fever. Chills or feeling very cold. Confusion or anxiety. Fatigue. Muscle aches. Shortness of breath or rapid breathing (hyperventilation). Nausea and vomiting. Urinating much less than usual. Fast heart rate. Changes in skin color. Your skin may look blotchy, pale, or blue. Cool, clammy, or sweaty skin. Skin rash. Other symptoms depend on the source of your infection. How is this diagnosed? This condition is diagnosed based on your symptoms, medical history, and physical exam. Other testsmay also be done to find out the cause of the infection and how severe the sepsis is. Tests may include: Blood tests. Urine tests. Swabs from other areas of your body that may have an infection. These samples may be tested (cultured) to find out what type of bacteria is causing the infection. Chest X-ray to check for pneumonia. Other imaging tests, such as a CT scan, may also be done. Lumbar puncture. This removes a small amount of the fluid that surrounds your brain and spinal cord. The fluid is then examined for infection. How is this treated? This condition must be treated in a hospital. Based on the cause of your infection, you may be given an antibiotic, antiviral, or antifungal medicine. You may also receive: Fluids through an IV. Oxygen and breathing assistance. Medicines to increase your blood pressure. Kidney dialysis. This process cleans your blood if your kidneys have failed. Surgery to remove infected tissue. Blood transfusion if needed. Medicine to prevent blood clots. Nutrients to correct imbalances in basic body function (metabolism). You may: ?Receive important salts and minerals (electrolytes) through an IV. ?Have your blood sugar level adjusted. Follow these instructions at home: Medicines Take [id number] and prescription medicines only as told by your health care provider. If you were prescribed an antibiotic, antiviral, or antifungal medicine, take it as told by your health care provider. Do not stop taking the medicine even if you start to feel better. General instructions If you have a catheter or other indwelling device, ask to have it removed as soon as possible. Keep all follow-up visits. This is important. Contact a health care provider if: You do not feel like you are getting better or regaining strength. You are having trouble coping with your recovery. You frequently feel tired. You feel worse or do not seem to get better after surgery. You think you may have an infection after surgery. Get help right away if: You have any symptoms of sepsis. You have difficulty breathing. You have a rapid or skipping heartbeat. You become confused or disoriented. You have a high fever. Your skin becomes blotchy, pale, or blue. You have an infection that is getting worse or not getting better. These symptoms may represent a serious problem that is an emergency. Do not wait to see if the symptoms will go away. Get medical help right away. Call your local emergency services (911 in the [place] Do not drive yourself to the hospital. Summary Sepsis is a medical emergency that requires immediate treatment in a hospital. This condition is caused by a severe reaction to infections from bacteria, viruses, or fungus. Based on the cause of your infection, you may be given an antibiotic, antiviral, or antifungal medicine. Treatment may also include IV fluids, breathing assistance, and kidney dialysis. This information is not intended to replace advice given to you by your health care provider. Make sure you discuss any questions you have with your health care provider. Document Revised: 06/30/2023 Document Reviewed: 06/30/2023 [employer] Patient Education 2023 [employer]. Follow Up Care 07/25/2024 00:44:54 With:HAMILTON MALONE Address: [address] [place] [id number] [phone] Business (1) When:5 to 7 days Comments:Call for followup appointment With:SEB BARRY Address: [address] [place], [place] [id number]- Business (1) When:5 to 7 days Comments:Call for followup appointment [facility] [phone] NoteProgress Note-Nurse Patient voided but forgot to place call light on; will do bladder scan again. Instructed again to place light on TYE to preform. Was on phone with girlfriend; forgot. No complaints at this time. Voided 100ml with one small red clotFisher [facility] NoteProgress Note-Physician Assessment/Plan 64-year-old female with history of coronary artery disease, [place], sleep apnea, bipolar disorder, recent mid urethral sling implantation presented from an outside hospital with complaints of lower abdominal pain, pelvic pain, swelling and was admitted with acute kidney injury secondary to acute urinary retention, constipation sepsis secondary to suspected Labial cellulitis.. 1. Abdominal pain (R10.9: Unspecified abdominal pain) Secondary to acute urinary retention???present on admission. Resolved. Avoid narcotics. Ordered: [facility] Hospital Care/Day Moderate 35 Minutes 52596 2. Acute kidney injury (N17.9: Acute kidney failure, unspecified) Acute kidney injury???secondary to ATN from dehydration and urinary retention/obstruction. Resolved. Status post Lyn catheter placement. Treated with IV fluid. Discontinued IV fluid. Ordered: [facility] Hospital Care/Day Moderate 35 Minutes 97223 3. Acute urinary retention (R33.8: Other retention of urine) Secondary to recent surgery. Status post Lyn catheter placement. Ordered: [facility] Hospital Care/Day Moderate 35 Minutes 72178 4. Constipation (K59.00: Constipation, unspecified) Postoperatively. Resolved. Avoid narcotics. Continue on Colace. Ordered: [facility] Hospital Care/Day Moderate 35 Minutes 27113 5. Sepsis (A41.9: Sepsis, unspecified organism) Suspected to be present at the outside facility???patient had leukocytosis, tachycardia and elevated lactic acid???presumed secondary to labial cellulitis. Sepsis resolved. Treating with IV cefepime. Discontinued IV fluid. Ordered: [facility] Hospital Care/Day Moderate 35 Minutes 97244 6. Obese (E66.9: Obesity, unspecified) Recommend therapeutic lifestyle modification changes. 7. Cystocele with rectocele (N81.10: Cystocele, unspecified) Status post surgery. Urology consult reviewed by me. I appreciate and agree with recommendations. 8. Gastroesophageal reflux disease (K21.9: Gastro-esophageal reflux disease without esophagitis) Supportive care. 9. Bipolar illness (F31.9: Bipolar disorder, unspecified) Continue on lithium. 10. On deep vein thrombosis (DVT) prophylaxis (Z79.899: Other marketing research intern (current) drug therapy) Lovenox. Disposition: Home soon pending final urology recommendations. I discussed the diagnosis and plan of care with the patient at the bedside. Moderate level of MDM based on addressing above issues. This documentation was transcribed using voice recognition software. Several attempts were made to ensure accuracy. However inadvertent computerized field care coordinator errors may be present. Eri Waldrop. Hospitalist. Orders: Sodium Chloride 0.9% intravenous solution 1,000 mL, 1,000 mL, IV, 20 mL/hr, Routine, Start date 07/26/24 7:25:00 EST, 50 hour(s), Total volume (mL): 1,000, 87.8 kg, 2.04, m2 Subjective Seen and examined. She feels well this morning with no abdominal pain. Abdominal pressure has improved. She denies any fever, chills, nausea or vomiting. She denies any redness. Objective Vitals & Measurements T: 36.4 ???C(Axillary) TMIN: 36.2 ???C(Oral) TMAX: 36.7 ???C(Oral) HR: 90(Monitored) BP: 139/82 SpO2: 98% WT: 90.3 kg Intake & Output This visit (24 hour periods starting at 07:00 EST) 07/26/24 * 07/25/24 07/24/24 Total Summary Intake mL -- 2,145.68 292.54 Output mL 850 3,375 -- Fluid Balance -850 -1,229.32 292.54 Intake (5) Oral Intake mL -- 300 -- Sodium Chloride 0.9% intravenous solution 1,000 mL mL -- 1,625.58 189.54 Sodium Chloride 0.9%, cefepime mL -- 219.1 100 morphine mL -- 1 1 ondansetron mL -- -- 2 Total -- 2,145.68 292.54 Output (1) Urine Catheter mL 850 3,375 -- Total 850 3,375 -- Counts (0) * This column has not completed the indicated time period. Physical Exam General: alert, no acute distress, comfortable in bed and eating breakfast Skin: warm, dry Head: no trauma, normocephalic Neck: Trachea midline, no adenopathy, no tenderness Eye: normal conjunctiva, sclera clear ENMT: TM's clear, oral mucosa moist, no pharyngeal erythema or exudate Cardiovascular: regular rate and rhythm, normal peripheral perfusion Respiratory: Lungs CTA, respirations non labored Chest wall: no deformity. Gastrointestinal: soft, non distended, no tenderness, no guarding. Obese. Bowel sounds intact. Obese. Bowel sounds intact. Genitourinary: Lyn catheter in place and draining clear urine. Back: No tenderness, Normal ROM, Normal alignment. Extremities: no deformity, no trauma Neurological: oriented x 4, LOC appropriate for age, CN II-XII intact, motor strength equal & normal bilaterally, sensation equal & normal bilaterally, speech normal Psychiatric: cooperative, affect appropriate for age, normal judgement, normal psychiatric thoughts. Lab Results WBC: 7.9 E9/L (07/26/24 06:03:00) RBC: 3.6 E12/L Low (07/26/24 06 (more content not included)...[facility] [place]:Result Comment: Electronically Signed By: Eri WALDROP MD\.br\Date and Time Signed: 07/26/24 09:36 [id number] NoteProgress Note-Physician Patient: RAIN SWEENEY Age: 64 years Sex: Female : 1960 Associated Diagnoses: None Author: MD Ballesteros Ahmad F Postoperative Information Postoperative disposition: Postoperative disposition: To PACU. Optimetrix number: Optimetrix number [id number]. Anesthetic utilized: General. Health Status Allergies: Allergic Reactions (Selected) Severity Not Documented Penicillin- Hives. Physical Examination VS/Measurements Pain Assessment: Controlled. General: Awake, Alert, Appropriate. Respiratory: Adequate air exchange. Cardiovascular: Stable, Normal peripheral perfusion. Neurological: Normal sensory function, Normal motor function. Assessment Anesthetic outcome No anesthetic complications noted. Adequate pain relief. able to void without difficulty, able to ambulate with assist, tolerating PO intake, no N/V. Review / Management Condition: Stable. Plan Transfer/Discharge: Transfer/Discharge Discharge when meets criteria ( To home ).[facility] [place] [place] [facility]:Result Comment: Electronically Signed By: MD Ballesteros Ahmad F\.br\Date and Time Signed: 07/25/24 16:12 EST 07-25-2024 NoteProgress Note-Physician Patient: RAIN SWEENEY Age: 64 years Sex: Female : 1960 Associated Diagnoses: None Author: MD Ballesteros Ahmad F Preoperative Information Time patient last ate or drank:=== (npo 8 hours) Anesthesia history: Patient history: No prior anesthesia problems. Re-evaluation prior to induction: Completed, Initial evaluation reviewed. Review of Systems Respiratory: No shortness of breath. Cardiovascular: No chest pain. Hematology/Lymphatics: No bruising tendency, No bleeding tendency. Health Status Allergies: Allergic Reactions (All) Severity Not Documented Penicillin- Hives. Canceled/Inactive Reactions (All) Severity Not Documented MetFORMIN- Hives. Current medications: (Selected) Inpatient Medications Ordered Ativan 1 mg Tab: 1 mg = 1 tab(s), Tab, Oral, TID PRN Anxiety, Routine, Start date 07/25/24 8:31:00 EST, 07/25/24 8:31:00 EST Benadryl 25 mg Cap: 25 mg = 1 cap(s), Cap, Oral, q6hr PRN Itching, Routine, Start date 07/25/24 3:54:00 EST, 07/25/24 3:54:00 EST Colace 100 mg Cap: 100 mg = 1 cap(s), Cap, Oral, BID, Routine, Start date 07/25/24 21:00:00 EST, 07/25/24 12:43:00 EST NS 1000 mL Soln-IV 1,000 mL: 1,000 mL, IV, 150 mL/hr, Routine, Start date 07/25/24 3:54:00 EST, 6.7hour(s), Total volume (mL): 1,000, 81.8 kg, 1.99, m2 Pantoprazole [address] Tab: 40 mg = 1 tab(s), Tab-DR, Oral, Daily, Routine, Start date 07/25/24 9:00:00 EST, 07/25/24 3:48:00 EST Zofran 4 mg/2 mL Injection: 4 mg = 2 mL, Injection, IV Push, q6hr PRN Nausea, Routine, Start date 07/25/24 3:54:00 EST, 07/25/24 3:54:00 EST acetaminophen 325 mg Tab: 650 mg = 2 tab(s), Tab, Oral, q6hr, Routine, Start date 07/25/24 14:00:00EST acetaminophen-oxycodone 325 mg-5 mg Tab: 1 tab(s), Tab, Oral, q4hr PRN Pain, Stop date 07/29/24 7:04:00 EST, Routine, Start date 07/25/24 8:02:00 EST cefepime additive + Sodium Chloride 0.9% intravenous solution 100 mL: 2,000 mg = 1 EA, Injection, IV Piggyback, q24hr, Routine, Start date 07/25/24 5:00:00 EST, 200 mL/hr, Infuse over 30 minute(s) enoxaparin 40 mg/0.4 mL SC Suzy: 40 mg = 0.4 mL, Injection, SubCutaneous, Daily for 30 day(s), Stop date 08/24/24 8:59:00 EST, Routine, Start date 07/25/24 9:00:00 EST, 07/25/24 3:54:00 EST hydrALAZINE 20 mg/mL Inj: 10 mg = 0.5 mL, Injection, IV Push, q6hr PRN Other (see comment), Routine, Start date 07/25/24 3:54:00 EST, 07/25/24 3:54:00 EST lithium 150 mg Cap: 300 mg = 2 EA, Cap, Oral, Bedtime, Routine, Start date 07/25/24 21:00:00 EST, 07/25/24 3:48:00 EST morphine 2 mg/mL Inj: 2 mg = 1 mL, Injection, IV Push, q3hr PRN Pain for 5 day(s), Stop date 07/30/24 3:49:00 EST, Routine, Start date 07/25/24 3:50:00 EST, 07/25/24 3:50:00 EST oxcarbazepine 300 mg Tab: 300 mg = 1 tab(s), Tab, Oral, Daily, Routine, Start date 07/25/24 9:00:00EST, 07/25/24 3:49:00 EST oxcarbazepine 300 mg Tab: 600 mg = 2 tab(s), Tab, Oral, Bedtime, Routine, Start date 07/25/24 21:00:00 EST, 07/25/24 3:50:00 EST venlafaxine 75 mg Cap-ER: 225 mg = 3 cap(s), Cap-ER, Oral, Daily, Routine, Start date 07/25/24 9:00:00 EST, 07/25/24 3:49:00 EST Prescriptions Prescribed Bactrim D.S. 800 mg-160 mg Tab: 1 tab(s), Oral, BID for 5 day(s), 10 tab(s), Refill(s) 0, [id number], 174, cm, 07/06/24 9:03:00 EST, Height/Length Dosing, 81.8, kg, 07/06/24 9:03:00 EST, Weight Dosing Colace 50 mg oral capsule: 50 mg = 1 cap(s), Oral, BID, PRN for constipation, # 60 cap(s), Refills(s) 0, [id number], cm, 07/06/24 9:03:00 EST, Height/Length Dosing, 81.8, kg, 07/06/24 9:03:00 EST, Weight Dosing Roxicodone 5 mg Tab: 5 mg = 1 tab(s), Oral, q6hr, PRN for pain, # 5 tab(s), Refills(s) 0, [id number] 174, cm, 07/06/24 9:03:00 EST, Height/Length Dosing, 81.8, kg, 07/06/24 9:03:00EST, Weight Dosing Documented Medications Documented lithium 300 mg oral tablet: 300 mg = 1 tab(s), Oral, Bedtime, Refills(s) 0 omeprazole 20 mg Cap-DR: 20 mg = 1 cap(s), Oral, Daily, Refills(s) 0 oxcarbazepine 300 mg Tab: 300 mg = 1 tab(s), Oral, BID, Take one tablet in morning and Two tablets at night, Refills(s) 0 tretinoin Top 0.1% Crm: 1 susan, Topical, Once a day (at bedtime), Refill(s) 0 venlafaxine: 225 mg, Oral, Daily, as directed, Refills(s) 0, Anxiety Problem list: All Problems Chronic pain / SNOMED CT 618482043 / Confirmed Essential hypertension / SNOMED CT 93198519 / Confirmed Chronic depression / SNOMED CT 411327164 / Confirmed Anxiety / SNOMED CT 70281474 / Confirmed Scoliosis of lumbosacral spine / SNOMED CT 185768342 / Confirmed Hypercholesterolemia / SNOMED CT 53656642 / Confirmed Heart disease / SNOMED CT 66040785 / Confirmed Acne / SNOMED CT 94284477 / Confirmed Overweight / SNOMED CT 113422520 / Confirmed Lesion of right nipple / SNOMED CT 6274871167 / Confirmed BMI 28.0-28.9,adult / SNOMED CT 2069053496 / Confirmed Sleep apnea / SNOMED CT 677977646 / Confirmed Myocardial infarction / SNOMED CT 42504995 / (more content not included)... [facility] [place] [place]:Result Comment: Electronically Signed By: MD Favian, Song Macias\.marian\Date and Time Signed: 07/25/24 16:11 EST 07-25-2024 NoteConsultation Note Patient: RAIN SWEENEY Age: 64 years Sex: Female : 1960 Associated Diagnoses: None Author: Shad RAMIREZ, Brandon Silva Chief Complaint Pelvic pain History of Present Illness 64-year-old female status-post retropubic mid urethral sling implantation 07/22/[address] Cha MD. Patient presented to [facility] emergency department 07/23/2024 and wasstraight catheterized and discharged home. She then returned to [place] emergency department last night with urinary retention and severe pelvic discomfort. She was found to have acute kidney injury. A Lyn catheter was placed for 800 mL and she was then transferred to [facility] for continued care. Patient reports a 2-day history of severe perineal and lower abdominal pain as well as lower abdominal bloating. Symptoms have partially improved since admission. She reported bilaterallabia swelling yesterday, but this is improving. She reports no fevers. No chest pain or shortness of breath. No chills or rigors. She is passing flatus but has not had a bowel movement. Review of Systems Constitutional: No fever, No chills. Eye: No visual disturbances. Ear/Nose/Mouth/Throat: No decreased hearing. Respiratory: No shortness of breath. Cardiovascular: No chest pain. Gastrointestinal: Nausea, Vomiting, Constipation. Genitourinary: +retention. Hematology/Lymphatics: No bruising tendency. Endocrine: No excessive hunger. Immunologic: No recurrent fevers. Musculoskeletal: No back pain. Integumentary: No breakdown. Neurologic: No confusion. Psychiatric: Anxiety. Health Status Allergies: Allergic Reactions (Selected) Severity Not Documented Penicillin- Hives. Current medications: (Selected) Inpatient Medications Ordered Ativan 1 mg Tab: 1 mg = 1 tab(s), Tab, Oral, TID PRN Anxiety, Routine, Start date 07/25/24 8:31:00 EST, 07/25/24 8:31:00 EST Benadryl 25 mg Cap: 25 mg = 1 cap(s), Cap, Oral, q6hr PRN Itching, Routine, Start date 07/25/24 3:54:00 EST, 07/25/24 3:54:00 EST NS 1000 mL Soln-IV 1,000 mL: 1,000 mL, IV, 150 mL/hr, Routine, Start date 07/25/24 3:54:00 EST, 6.7hour(s), Total volume (mL): 1,000, 81.8 kg, 1.99, m2 Pantoprazole [address] Tab: 40 mg = 1 tab(s), Tab-DR, Oral, Daily, Routine, Start date 07/25/24 9:00:00 EST, 07/25/24 3:48:00 EST Zofran 4 mg/2 mL Injection: 4 mg = 2 mL, Injection, IV Push, q6hr PRN Nausea, Routine, Start date 07/25/24 3:54:00 EST, 07/25/24 3:54:00 EST acetaminophen 325 mg Tab: 650 mg = 2 tab(s), Tab, Oral, q6hr PRN Pain, Routine, Start date 243:54:00 EST, 07/25/24 3:54:00 EST acetaminophen-oxycodone 325 mg-5 mg Tab: 1 tab(s), Tab, Oral, q4hr PRN Pain, Stop date 07/29/24 7:04:00 EST, Routine, Start date 07/25/24 8:02:00 EST cefepime additive + Sodium Chloride 0.9% intravenous solution 100 mL: 2,000 mg = 1 EA, Injection, IV Piggyback, q24hr, Routine, Start date 07/25/24 5:00:00 EST, 200 mL/hr, Infuse over 30 minute(s) enoxaparin 40 mg/0.4 mL SC Suzy: 40 mg = 0.4 mL, Injection, SubCutaneous, Daily for 30 day(s), Stop date 08/24/24 8:59:00 EST, Routine, Start date 07/25/24 9:00:00 EST, 07/25/24 3:54:00 EST hydrALAZINE 20 mg/mL Inj: 10 mg = 0.5 mL, Injection, IV Push, q6hr PRN Other (see comment), Routine, Start date 07/25/24 3:54:00 EST, 07/25/24 3:54:00 EST lithium 150 mg Cap: 300 mg = 2 EA, Cap, Oral, Bedtime, Routine, Start date 07/25/24 21:00:00 EST, 07/25/24 3:48:00 EST morphine 2 mg/mL Inj: 2 mg = 1 mL, Injection, IV Push, q3hr PRN Pain for 5 day(s), Stop date 07/30/24 3:49:00 EST, Routine, Start date 07/25/24 3:50:00 EST, 07/25/24 3:50:00 EST oxcarbazepine 300 mg Tab: 300 mg = 1 tab(s), Tab, Oral, Daily, Routine, Start date 07/25/24 9:00:00EST, 07/25/24 3:49:00 EST oxcarbazepine 300 mg Tab: 600 mg = 2 tab(s), Tab, Oral, Bedtime, Routine, Start date 07/25/24 21:00:00 EST, 07/25/24 3:50:00 EST venlafaxine 75 mg Cap-ER: 225 mg = 3 cap(s), Cap-ER, Oral, Daily, Routine, Start date 07/25/24 9:00:00 EST, 07/25/24 3:49:00 EST Prescriptions Prescribed Bactrim D.S. 800 mg-160 mg Tab: 1 tab(s), Oral, BID for 5 day(s), 10 tab(s), Refill(s) 0, [id number], 174, cm, 07/06/24 9:03:00 EST, Height/Length Dosing, 81.8, kg, 07/06/24 9:03:00 EST, Weight Dosing Colace 50 mg oral capsule: 50 mg = 1 cap(s), Oral, BID, PRN for constipation, # 60 cap(s), Refills(s) 0, Pharmacy: [facility]/pharmacy #[id number], 174, cm, 07/06/24 9:03:00 EST, Height/Length Dosing, 81.8, kg, 07/06/24 9:03:00 EST, Weight Dosing Roxicodone 5 mg Tab: 5 mg = 1 tab(s), Oral, q6hr, PRN for pain, # 5 tab(s), Refills(s) 0, Pharmacy:[facility]/pharmacy #[id number], 174, cm, 07/06/24 9:03:00 EST, Height/Length Dosing, 81.8, kg, 07/06/24 9:03:00EST, Weight Dosing Documented Medications Documented lithium 300 mg oral tablet: 300 mg = 1 tab(s), Oral, Bedtime, Refills(s) 0 omeprazole 20 mg Cap-DR: 20 mg = 1 cap(s), Oral, Daily, Refills(s) 0 oxcarbazepine 300 mg Tab: 300 mg = 1 tab(s), Oral, BID, Take on (more content not included)...[facility] [place] on above:Result Comment: Electronically Signed By: Shad RAMIREZ, Brandon Darnell.br\Date and Time Signed: 07/25/24 12:33 [id number] NoteHistory and Physical Basic Information Admit Date/Time:07/25/2024 00:42 History of Present Illness Patient is a 64-year-old female with past medical history as noted below comes in with above-statedchief complaint. On 07/22/2024 patient had elective urethral [facility] rect[facility], [facility] HAMILTON MALONE MD. Patient states that on 07/23/2024 she had acute urinary retention at home and went to the [facility] emergency department and was straight cathed. Patient did not feel great that day but nothing I expected considering the recent surgery. Then on 07/24/2024 patient began to have severe lower abdominal pain, groin pain, nausea and vomitingtherefore she went back to the ED for evaluation. Emergency department evaluation revealed patient to have leukocytosis, tachycardia and elevated lactic acid. Patient also noted to have acute kidney injury. Patient was transferred to [facility] because of her recent surgical procedure. When I see patient she still complains of severe lower abdominal/groin pain and nausea. Patientstates she has not had a bowel movement in 2 days. Patient states that she has not been able to urinate spontaneously. She has had urinary leakage/dribbling. She denies any dysuria. Patient denies any chest pain, shortness of breath, diarrhea, headache, vision changes. Review of Systems 14 Systems reviewed and negative except as noted in HPI. Scoring Tadeo Fall Risk Score: 35 (07/25/24) Physical Exam General: alert, no acute distress Skin: warm, dry Head: no trauma, normocephalic Neck: Trachea midline, no adenopathy, no tenderness Eye: normal conjunctiva, sclera clear ENMT: oral mucosa dry, no pharyngeal erythema or exudate. hearing grossly intact Cardiovascular: regular rate and rhythm, no murmur/gallop/rub Respiratory: Lungs CTA, respirations non labored , no w/r/r Gastrointestinal: Absent bowel sound, soft, non distended, generalized tenderness to palpation mostsevere right lower quadrant/left lower quadrant, no rebound no guarding. Genitourinary: Lyn present with clear urine, bilateral area around the vaginal introitus has someinduration and mild erythema, significant pain to palpation of the groin Extremities: no deformity, no trauma Osteopathic: Deferred due to being noncontributory to current case. Neurological: oriented x 4, LOC appropriate for age, CN II-XII intact, motor strength equal & normal bilaterally, sensation equal & normal bilaterally, speech normal Psychiatric: cooperative, affect appropriate for age, normal judgement, normal psychiatric thoughts. Brief Hospital course emergency department [facility]???see outside hospital record for fulldetails Patient was given 30 mL/kg of normal saline per sepsis protocol Patient treated with IV Cipro and clindamycin [facility] emergency department labs 07/24/2024 WBC 14.6 hemoglobin 14.2 hematocrit 43.4 platelet 307 Sodium 131 potassium 4.3 chloride 96 bicarb 21.6 BUN 36 creatinine 4.0 glucose 158 calcium 8.8 Lactate 2.2 (07/24/2024 1820) Lactate 1.1 (07/25/2024 0040) Urine nitrite negative, urine leuk esterase trace, urine WBC 0???2, urine RBC 20???50 CT scan abdomen pelvis 07/24/2024 1843 Impression 1. Prominent edematous change and soft tissue swelling throughout the subcutaneous fat of the loweranterior abdominal wall, with multiple bubbles of subcutaneous gas in the suprapubic region and minimal underlying free air in the lower anterior pelvis related to yesterday's urologic procedure. No loculated fluid collection is seen. 2. Mild free fluid in the pelvic cul-de-sac is presumably postsurgical. 3. moderate size hiatal hernia. 4. mild hepatic steatosis. 5. simple appearing 4.2 cm left renal cyst Lab Results No qualifying data available. Assessment/Plan 1. Sepsis (A41.9: Sepsis, unspecified organism) Leukocytosis, tachycardia, lactic acidosis. Concern for possible cellulitis at the vaginal introitus given induration and mild erythema and significant pain. Will empirically broaden antibiotic to cefepime 2 g IV every 24 hours (renally dosed). Blood cultures were obtained at [facility] prior to initiation of Cipro and clindamycin. Patient has been adequately fluid resuscitated outside hospital. Will maintain patient on normal saline at 150 mL/h. 2. Abdominal pain (R10.9: Unspecified abdominal pain) Will use morphine as needed. Suspect pain being caused by cellulitis and recent surgery. Will consult urology. 3. Acute kidney injury (N17.9: Acute kidney failure, unspecified) Patient has been adequately hydrated in the emergency department. Will maintain on normal saline asnoted above. Will check creatinine level and proceed accordingly. No history of CKD. 4. Cystocele with rectocele (N81.10: Cystocele, unspecified) Supportive care. Maintain Lyn. Await urology input. 5. Gastroesophageal reflux disease (K21.9: Gastro-esophageal reflux disease witho (more content notincluded)...[facility] Result Comment: Electronically Signed By: Otto Ramos DO.marian\Date and Time Signed: 07/25/24 10:58 [id number] NoteHistory and Physical Basic Information Admit Date/Time:07/25/2024 00:42 History of Present Illness Patient is a 64-year-old female with past medical history as noted below comes in with above-statedchief complaint. On 07/22/2024 patient had elective urethral sling[facility] rect[facility]cele, [facility] by HAMILTON MALONE MD. Patient states that on 07/23/2024 she had acute urinary retention at home and went to the [facility] emergency department and was straight cathed. Patient did not feel great that day but nothing I expected considering the recent surgery. Then on 07/24/2024 patient began to have severe lower abdominal pain, groin pain, nausea and vomitingtherefore she went back to the ED for evaluation. Emergency department evaluation revealed patient to have leukocytosis, tachycardia and elevated lactic acid. Patient also noted to have acute kidney injury. Patient was transferred to [facility] [place] because of her recent surgical procedure. When I see patient she still complains of severe lower abdominal/groin pain and nausea. Patientstates she has not had a bowel movement in 2 days. Patient states that she has not been able to urinate spontaneously. She has had urinary leakage/dribbling. She denies any dysuria. Patient denies any chest pain, shortness of breath, diarrhea, headache, vision changes. Review of Systems 14 Systems reviewed and negative except as noted in HPI. Scoring Tadeo Fall Risk Score: 35 (07/25/24) Physical Exam General: alert, no acute distress Skin: warm, dry Head: no trauma, normocephalic Neck: Trachea midline, no adenopathy, no tenderness Eye: normal conjunctiva, sclera clear ENMT: oral mucosa dry, no pharyngeal erythema or exudate. hearing grossly intact Cardiovascular: regular rate and rhythm, no murmur/gallop/rub Respiratory: Lungs CTA, respirations non labored , no w/r/r Gastrointestinal: Absent bowel sound, soft, non distended, generalized tenderness to palpation mostsevere right lower quadrant/left lower quadrant, no rebound no guarding. Genitourinary: Lyn present with clear urine, bilateral area around the vaginal introitus has someinduration and mild erythema, significant pain to palpation of the groin Extremities: no deformity, no trauma Osteopathic: Deferred due to being noncontributory to current case. Neurological: oriented x 4, LOC appropriate for age, CN II-XII intact, motor strength equal & normal bilaterally, sensation equal & normal bilaterally, speech normal Psychiatric: cooperative, affect appropriate for age, normal judgement, normal psychiatric thoughts. Brief Hospital course emergency department [facility]???see outside hospital record for fulldetails Patient was given 30 mL/kg of normal saline per sepsis protocol Patient treated with IV Cipro and clindamycin [facility] emergency department labs 07/24/2024 WBC 14.6 hemoglobin 14.2 hematocrit 43.4 platelet 307 Sodium 131 potassium 4.3 chloride 96 bicarb 21.6 BUN 36 creatinine 4.0 glucose 158 calcium 8.8 Lactate 2.2 (07/24/2024 1820) Lactate 1.1 (07/25/2024 0040) Urine nitrite negative, urine leuk esterase trace, urine WBC 0???2, urine RBC 20???50 CT scan abdomen pelvis 07/24/2024 1843 Impression 1. Prominent edematous change and soft tissue swelling throughout the subcutaneous fat of the loweranterior abdominal wall, with multiple bubbles of subcutaneous gas in the suprapubic region and minimal underlying free air in the lower anterior pelvis related to yesterday's urologic procedure. No loculated fluid collection is seen. 2. Mild free fluid in the pelvic cul-de-sac is presumably postsurgical. 3. moderate size hiatal hernia. 4. mild hepatic steatosis. 5. simple appearing 4.2 cm left renal cyst Lab Results No qualifying data available. Assessment/Plan 1. Sepsis (A41.9: Sepsis, unspecified organism) Leukocytosis, tachycardia, lactic acidosis. Concern for possible cellulitis at the vaginal introitus given induration and mild erythema and significant pain. Will empirically broaden antibiotic to cefepime 2 g IV every 24 hours (renally dosed). Blood cultures were obtained at [facility] prior to initiation of Cipro and clindamycin. Patient has been adequately fluid resuscitated outside hospital. Will maintain patient on normal saline at 150 mL/h. 2. Abdominal pain (R10.9: Unspecified abdominal pain) Will use morphine as needed. Suspect pain being caused by cellulitis and recent surgery. Will consult urology. 3. Acute kidney injury (N17.9: Acute kidney failure, unspecified) Patient has been adequately hydrated in the emergency department. Will maintain on normal saline asnoted above. Will check creatinine level and proceed accordingly. No history of CKD. 4. Cystocele with rectocele (N81.10: Cystocele, unspecified) Supportive care. Maintain Lyn. Await urology input. 5. Gastroesophageal reflux disease (K21.9: Gastro-esophageal reflux disease witho (more content notincluded)...[facility] [place]: Result Comment: Electronically Signed By: Aditya MARIA DO\Date and Time Signed: 07/25/24 04:51 [id number] Hospital Discharge instructions Patient Education 07/22/2024 12:08:32 Lyn Catheter Care, Female-[facility](CUSTOM) Lyn Catheter Care, Female A Lyn catheter is a soft, flexible tube that is placed into the bladder to drain urine. The catheter has a balloon to hold it inside the bladder. A Lyn catheter may be inserted if: You leak urine or are not able to control when you urinate (urinary incontinence). You are not able to urinate when you need to (urinary retention). You had surgery. You have certain medical conditions, such as multiple sclerosis, dementia, or a spinal cord injury. To Prevent Infection: 1. Wash your hands with soap and water before and after handling your catheter. 2. Using mild soap and warm water on a clean washcloth; twice a day. Clean the area on your body closest to the catheter insertion site using a front to back motion, moving away from the catheter. Never wipe toward the catheter because this could sweep bacteria up into the urethra and cause infection. Remove all traces of soap. Pat the area dry with a clean towel. No tub baths. No lotions, powders, or sprays unless directed by your physician. 3. Keep the tube secure. Do not let the tube pull or catch when you are moving around. Attach the catheter to your leg so there is no tension on the catheter. The bag can be wore on the thigh. Use adhesive tape or a leg strap. If you are using adhesive tape, remove any sticky residue left behind by the previous tape you used. 4. Replace wet leg straps with dry ones. 5. Wear cotton underwear to absorb moisture and keep route rider. 6. Keep the drainage bag below the level of the bladder, but keep it off the floor. 7. Check throughout the day to be sure the catheter is working and urine is draining freely. Make sure the tubing does not become kinked or looped. 8. Do not pull on the catheter or try to remove it. Pulling could damage internal tissues. TAKING CARE OF THE DRAINAGE BAGS You will be given two drainage bags to take home. One is a large overnight drainage bag, and the other is a smaller leg bag that fits underneath clothing. You may wear the overnight bag at any time, but you should never wear the smaller leg bag at night, unless directed by your physician. Follow the instructions below for how to empty and change your drainage bags. Emptying the Drainage Bag You must empty your drainage bag when it is ? full. 1. Wash your hands with soap and water before and after handling your catheter. 2. Keep the drainage bag below your hips, below the level of your bladder. This stops urine from going back into the tubing and into your bladder. 3. Hold the dirty bag over the toilet or a clean container. 4. Open the pour spout at the bottom of the bag and empty the urine into the toilet or container. Do not let the pour spout touch the toilet, container, or any other surface. Doing so can place bacteria on the bag, which can cause an infection. 5. Clean the pour spout with a gauze pad or cotton ball that has rubbing alcohol on it. 6. Close the pour spout. 7. Attach the bag to your leg with adhesive tape or a leg strap. Changing the Drainage Bag 1. Wash your hands with soap and water before and after handling your catheter. 2. Pinch off the rubber catheter so that urine does not spill out. 3. Disconnect the catheter tube from the drainage tube at the connection valve. Do not let the tubes touch any surface. 4. Clean the end of the catheter tube with an alcohol wipe. Use a different alcohol wipe to clean the end of the drainage tube. 5. Connect the catheter tube to the drainage tube of the clean drainage bag. 6. Attach the new bag to the leg with adhesive tape or a leg strap. Avoid attaching the new bag tootightly. 7. Place a cap on the drainage bag not in use and store in a clean towel. SEEK MEDICAL CARE IF: Your urine is cloudy or smells. Your catheter starts to leak. Your catheter falls out or is pulled out. You have pain, swelling, redness, or pus where the catheter enters the body. You have pain in the abdomen, legs, lower back, or bladder. You have a fever of 100.4 F (38 C) or higher You see pink, red, dark, coffee colored, or pus-like urine. You have nausea, vomiting, or chills. You are not feeling better in 2 to 3 days or you are feeling worse. You are not draining urine into the bag or your bladder feels full. MAKE SURE YOU: Understand the reason you have the catheter. Understand and follow these instructions to care for the catheter. Will watch your condition. Drink 6-8 glasses of water or liquids per day to keep your urine clear. Avoid Caffeinated drinks. They can irritate the bladder and cause bladder spasms. Keep your follow up appointments and call with any concerns. 07/22/2024 09:45:15 Jose E ARAUZ Discharge Instructions(CUSTOM) [place], [place] Ambrose Dorantes M.D. TVT DISCHARGE INSTRUCTIONS The following instructions must be followed very closely: 1.If you need pain pills, start before pain becomes intense. Antibiotics and pain pills are frequently less upsetting to your stomach if you take them with food such as crackers or bread. 2.If you are having excessive or persistent pain, swelling, bleeding, nausea, vomiting, or any other problems you should FIRST call your surgeon for advice. If you are unable to contact your surgeon,seek help from a hospital emergency room. If you were given drugs to make you drowsy and/or pain medication, follow these instructions: 1.You should spend the remainder of the day and evening resting. 2.You should not attempt to walk, including going to the bathroom, without assistance. You may be lightheaded from the medications you received. 3.Eat light today to avoid nausea. You should be able to return to your normal diet 24-36 hours after surgery. 4.For the next 24 hours you should not consume alcohol, attempt to drive, use any power tools, signimportant documents or make personal or business decisions. After that do so only if you feel perfectly normal and alert. 5.Follow carefully any verbal or written instructions your surgeon may have given you. Surgeon s Phone number: [phone] Surgeon s Written Instructions: 1.During the daytime hours empty your leg bag every 3-4 hours. 2.No lifting over 10 pounds for 6 weeks. 3.There is no restriction regarding use of stairs. 4.You may drive 48 hours after surgery. 5.Remove the small dressing on your abdomen the morning after surgery. 6.Observe the area for redness or swelling. 7.You may shower the day after surgery. Do not take a tub bath for 10 days. 8.Vaginal spotting is normal for the next 5-7 days. 9.Do NOT have sexual relations or use tampons for 6 weeks. 10.Notify your physician regarding any temperature over 100o F, burning or urination, redness, swelling or discharge from the incision sites. 11.Make an appoint to see your surgeon in one week. The above information has been explained, I have received a copy, and I have had the opportunity tohave my questions answered. Responsible Libertarian SignatureSurgeon SignatureNurse Signature Written: 08-2007/22/2024 09:45:07 Post Op Patient Instructions - FT (CUSTOM) Follow Up Care 07/05/2024 10:24:00 With:HAMILTON MALONE Address: [address] [place] [phone] Business (1) When: Unknown Comments:2 weeks [facility] 12-12-2024 NotePatient Education - Text Lyn Catheter Care, Female A Lyn catheter is a soft, flexible tube that is placed into the bladder to drain urine. The catheter has a balloon to hold it inside the bladder. A Lny catheter may be inserted if: ??? You leak urine or are not able to control when you urinate (urinary incontinence). ??? You are not able to urinate when you need to (urinary retention). ??? You had surgery. ??? You have certain medical conditions, such as multiple sclerosis, dementia, or a spinal cord injury. To Prevent Infection: 1. Wash your hands with soap and water before and after handling your catheter. 2. Using mild soap and warm water on a clean washcloth; twice a day. ??? Clean the area on your body closest to the catheter insertion site using a front to back motion, moving away from the catheter. Never wipe toward the catheter because this could sweep bacteria upinto the urethra and cause infection. ??? Remove all traces of soap. Pat the area dry with a clean towel. No tub baths. No lotions, powders, or sprays unless directed by your physician. 3. Keep the tube secure. Do not let the tube pull or catch when you are moving around. ??? Attach the catheter to your leg so there is no tension on the catheter. The bag can be wore on the thigh. Use adhesive tape or a leg strap. If you are using adhesive tape, remove any sticky residue left behind by the previous tape you used. 4. Replace wet leg straps with dry ones. 5. Wear cotton underwear to absorb moisture and keep route rider. 6. Keep the drainage bag below the level of the bladder, but keep it off the floor. 7. Check throughout the day to be sure the catheter is working and urine is draining freely. Make sure the tubing does not become kinked or looped. 8. Do not pull on the catheter or try to remove it. Pulling could damage internal tissues. TAKING CARE OF THE DRAINAGE BAGS You will be given two drainage bags to take home. One is a large overnight drainage bag, and the other is a smaller leg bag that fits underneath clothing. You may wear the overnight bag at any time, but you should never wear the smaller leg bag at night, unless directed by your physician. Follow the instructions below for how to empty and change your drainage bags. Emptying the Drainage Bag You must empty your drainage bag when it is ? full. 1. Wash your hands with soap and water before and after handling your catheter. 2. Keep the drainage bag below your hips, below the level of your bladder. This stops urine from going back into the tubing and into your bladder. 3. Hold the dirty bag over the toilet or a clean container. 4. Open the pour spout at the bottom of the bag and empty the urine into the toilet or container. Do not let the pour spout touch the toilet, container, or any other surface. Doing so can place bacteria on the bag, which can cause an infection. 5. Clean the pour spout with a gauze pad or cotton ball that has rubbing alcohol on it. 6. Close the pour spout. 7. Attach the bag to your leg with adhesive tape or a leg strap. Changing the Drainage Bag 1. Wash your hands with soap and water before and after handling your catheter. 2. Pinch off the rubber catheter so that urine does not spill out. 3. Disconnect the catheter tube from the drainage tube at the connection valve. Do not let the tubes touch any surface. 4. Clean the end of the catheter tube with an alcohol wipe. Use a different alcohol wipe to clean the end of the drainage tube. 5. Connect the catheter tube to the drainage tube of the clean drainage bag. 6. Attach the new bag to the leg with adhesive tape or a leg strap. Avoid attaching the new bag tootightly. 7. Place a cap on the drainage bag not in use and store in a clean towel. SEEK MEDICAL CARE IF: ??? Your urine is cloudy or smells. ??? Your catheter starts to leak. ??? Your catheter falls out or is pulled out. ??? You have pain, swelling, redness, or pus where the catheter enters the body. ??? You have pain in the abdomen, legs, lower back, or bladder. ??? You have a fever of 100.4 F (38 C) or higher ??? You see pink, red, dark, coffee colored, or pus-like urine. ??? You have nausea, vomiting, or chills. ??? You are not feeling better in 2 to 3 days or you are feeling worse. ??? You are not draining urine into the bag or your bladder feels full. MAKE SURE YOU: ??? Understand the reason you have the catheter. ??? Understand and follow these instructions to care for the catheter. ??? Will watch your condition. ??? Drink 6-8 glasses of water or liquids per day to keep your urine clear. ??? Avoid Caffeinated drinks. They can irritate the bladder and cause bladder spasms. ??? Keep your follow up appointments and call with any concerns. [place], [place] Ambrose Dorantes M.D. TVT DISCHARGE INSTRUCTIONS The following instructions must be followed very closely: 1. If (more content not included)...[facility] [place] Hospital Discharge instructions Patient Education 07/05/2024 10:12:42 Urethral Vaginal [...] including vitamins, herbs, eye drops, creams, and vvst-kcw-ulpuard medicines. Any problems you or family members [...] provider tells you to take them. Taking cgrx-gbp-vsiciec medicines, vitamins, herbs, and supplements. Surgery safety [...] provider. Document Revised: 03/02/2021 Document Reviewed: 03/02/2021 [employer] Patient Education 2023 [employer]. Follow Up Care 06/24/2024 14:41:56 With:HAMILTON MALONE MD, URL Address: When: Unknown [facility] 11-25-2024 NotePatient Education Obstetrics and Gynecology Urethral Vaginal Sling [...] including vitamins, herbs, eye drops, creams, and owot-glg-hzlclom medicines. ??? Any problems you or family [...] tells you to take them. ??? Taking xhbr-bqc-utvhwhu medicines, vitamins, herbs, and supplements. Surgery safety [...] and blood oxygen level will be monitored untilyou leave the hospital or clinic. ??? You [...] place until your bladder w (more content notincluded)...[facility] [place]-2024 Note Progress Note-Physician Patient: RAIN SWEENEY Age: 63 years Sex: Female : 1960 Associated Diagnoses: None Author: Valdo Aguilar MD Postoperative Information Postoperative disposition: Postoperative disposition: To PACU. Optimetrix number: Optimetrix number [id number]. Anesthetic utilized: General. Health Status Allergies: Allergic [...] Discharge when meets criteria ( To home ).[facility]:Result Comment: Electronically Signed By: Valdo Aguilar MD\.br\Date and Time Signed: 06/24/24 16:53 EST 06-24-2024 Evaluation + Plan noteExtracted from: Title:ANES Post-operative Note---General Author: Valdo Aguilar MD Date:06/24/24 Plan Transfer/Discharge: Transfer/Discharge Discharge when meets criteria ( To home ). Extracted from: Title:ANES Pre-operative Note 2022 Author:Valdo Asencio Date:06/24/24 Plan [place] [employer] (ASA) physical status classification: Class III. Anesthetic Preoperative Plan: Anesthesia General, and TIVA. Future Appointments Appointment Date:07/05/2024 10:00:00 AM Scheduled Provider:HAMILTON MALONE MD Location: Appointment Type:URO Office Visit [facility] 11-14-2024 Hospital Discharge instructions Patient Education [...] Up Care 06/11/2024 10:28:58 With:HAMILTON MALONE Address: [address] [place] [phone] Business (1) When: Unknown Comments:in 2 weeks [facility] 11-14-2024 NotePatient Education - Text Cystoscopy ??? Voiding [...] you have a fever over 100 degrees. [facility] [place]-2024 Note Progress Note-Physician Patient: RAIN SWEENEY Age: 63 years Sex: Female : 1960 Associated Diagnoses: None Author: Valdo Aguilar MD Preoperative Information Anesthesia Preop Info: Time patient [...] mL, IV, 150 mL/hr, Routine, Start date :00:00 EST, 6.7 hour(s), Total volume (mL): 1,000, [...] day(s), # 9 tab(s), Refills(s) 0, Pharmacy: [facility]/pharmacy #[id number], 174, cm, 06/18/24 15:46:00 EST, [...] list: All Problems Acne / SNOMED CT 02444161 / Confirmed Anxiety / SNOMED CT 03021695 / Confirmed Atrophic vaginitis / SNOMED CT 75266163 / Confirmed Bladder neoplasm of uncertain malignant potential / SNOMED CT 9588344551 / Confirmed BMI 28.0-28.9,adult / SNOMED CT 0827081918 / Confirmed Chronic depression / SNOMED CT 481115669 / Confirmed Chronic pain / SNOMED CT 017067303 / Confirmed Cystocele with rectocele / SNOMED CT 955147296 / Confirmed Essential hypertension / SNOMED CT 09882155 / Confirmed Gastroesophageal reflux disease / SNOMED CT 493468380 / Confirmed Heart disease / SNOMED CT 43427406 / Confirmed Hypercholesterolemia / SNOMED CT 25130155 / Confirmed Lesion of right nipple / SNOMED CT 4827701814 / Confirmed Lumbar radiculopathy / SNOMED CT 774988497 / Confirmed Migraine / SNOMED CT 40217227 / Confirmed Myocardial infarction / SNOMED CT 56279529 / Confirmed Outside Source Comment: Comment on above: 2003 Overweight / SNOMED CT 484140339 / Confirmed Scoliosis of lumbosacral spine / SNOMED CT 951902820 / Confirmed Sleep apnea / SNOMED CT 981610900 / Confirmed Stress incontinence / SNOMED CT 428781403 / Confirmed Urethral caruncle / SNOMED CT 45849065 / Confirmed Resolved: Bipolar disorder / SNOMED CT 56812102 Canceled: Tobacco user / SNOMED CT 558696429, Active Problems (21) Acne Anxiety Atrophic vaginitis Bladder neoplasm of uncertain malignant potential BMI 28.0-28.9,adult Chronic depression Chronic pain Cystocele with rectocele Esse (more content not included)...[facility] [place] Result Comment: Electronically Signed By: Jeff RAMIREZ, Valdo Haq\.br\Date and Time Signed: 06/24/24 08:32 [id number] Hospital Discharge instructions Patient Education 06/11/2024 10:04:23 [...] including vitamins, herbs, eye drops, creams, and orph-akl-fgjlnoe medicines. Any problems you or family members [...] provider tells you to take them. Taking ymug-fki-urexpwg medicines, vitamins, herbs, and supplements. General instructions [...] provider. Document Revised: 03/02/2021 Document Reviewed: 03/02/2021 [employer] Patient Education 2023 [employer]. 06/11/2024 09:47:28 Kegel Exercises Kegel Exercises Kegel [...] provider. Document Revised: 12/06/2021 Document Reviewed: 12/06/2021 [employer] Patient Education 2023 [employer]. Follow Up Care 05/31/2024 11:14:44 With:GABBY RAMIREZ, HAMILTON, JATINDERL Address: When: Unknown [facility] 11-01-2024 NotePatient Education Obstetrics and Gynecology Kegel [...] provider. Document Revised: 12/06/2021 Document Reviewed: 12/06/2021 [employer] Patient Education ? 2023 [employer]. Urology Injection Treatments for Urinary Incontinence Urinary [...] including vitamins, herbs, eye drops, creams, and saeg-xys-vwwvqkj medicines. ??? Any problems you or family [...] foods, such as toast or (more contentnot included)...[facility] [place]10-[facility]2024 Note Patient Education Obstetrics and Gynecology Kegel [...] provider. Document Revised: 12/06/2021 Document Reviewed: 12/06/2021 [employer] Patient Education ? 2023 [employer]. Urethral Vaginal Sling A urethral vaginal sling [...] including vitamins, herbs, eye drops, creams, and fozm-wqv-kxuwbor medicines. ? Any problems you or family [...] medicines or blood thinners. (more content not included)...[facility] [place] Hospital Discharge instructions Patient Education 05/25/2024 10:57:53 [...] including vitamins, herbs, eye drops, creams, and ovkq-xbo-jolekbg medicines. Any problems you or family members [...] provider tells you to take them. Taking zzyc-edg-ncwzzuf medicines, vitamins, herbs, and supplements. Surgery safety [...] provider. Document Revised: 03/02/2021 Document Reviewed: 03/02/2021 [employer] Patient Education 2023 [employer]. [facility] 10-09-2024 Evaluation note* Diagnosis Onset Date Resolution Status Admit Date UTI (urinary tract infection) acute May 19 10:09am Dysuria noneactive May 19 024 10:09am UTI (urinary tract infection) acute June 04 11:12am [facility] Work Phone: [phone]) 878-944409-11-2024 History of Present illness Narrative* MICHEAL Cifuentes - 04/21/2024 8:30 AM EDT Reason for Appointment: Patient ID: Rain Carvalho is a 63 y.o. female who presents for vaginal issues Patient presents today for Annual Exam. MEDICATIONS Current Outpatient Medications Medication Instructions lithium ER (LITHOBID) 900 mg, Oral, Daily omeprazole (PRILOSEC) 10 mg, Oral, Daily before breakfast, Do not crush or chew. OXcarbazepine (Trileptal) 600 MG tablet Once venlafaxine XR (Effexor XR) 225 MG 24 hr tablet 1 tablet ALLERGIES Allergies Allergen Reactions Metformin Other Reaction(s): Hives Penicillins Other Reaction(s): hives PROBLEMS Active Ambulatory Problems Diagnosis Date Noted Right hip pain 04/22/2023 Lumbar radiculopathy 04/22/2023 Resolved Ambulatory Problems Diagnosis Date Noted No Resolved Ambulatory Problems Past Medical History: Diagnosis Date Anxiety Bipolar 2 disorder (CMS/HCC) HISTORY PAST MEDICAL HISTORY SOCIAL HISTORY Past Medical History: Diagnosis Date Anxiety Bipolar 2 disorder (CMS/HCC) Social History Tobacco Use Smoking status: Not on file Smokeless tobacco: Not on file Substance Use Topics Alcohol use: Not on file Drug use: Not on file FAMILY HISTORY Family History Problem Relation Name Age of Onset Bipolar disorder Mother Bipolar disorder Father Alcohol abuse Father Alcohol abuse Sister Breast cancer Mother's Sister Colon cancer Father's Brother Heart failure Maternal Grandmother Colon cancer Paternal Grandmother SURGICAL HISTORY Past Surgical History: Procedure Laterality Date BREAST SURGERY lump removed from nipple REVIEW OF SYSTEMS Review of Systems: Review of Systems Constitutional: Negative. HENT: Negative. Eyes: Negative. Respiratory: Negative. Cardiovascular: Negative. Gastrointestinal: Negative. Genitourinary: Negative. Musculoskeletal: Negative. Skin: Negative. Neurological: Negative. All other systems reviewed and are negative. Hematological: Negative. Endocrine: Negative. Allergic/Immunologic: Negative. OBJECTIVE Objective: Physical Exam Constitutional: Appearance: Normal appearance. She is well-developed. Genitourinary: Genitourinary Comments: Pt refused breast exam Right Adnexa: not tender and no mass present. Left Adnexa: not tender and no mass present. No cervical discharge. HENT: Head: Normocephalic. Nose: Nose normal. Mouth/Throat: Mouth: Mucous membranes are moist. Cardiovascular: Rate and Rhythm: Normal rate and regular rhythm. Pulmonary: Effort: Pulmonary effort is normal. Breath sounds: Normal breath sounds. Abdominal: General: Bowel sounds are normal. There is no distension. Palpations: Abdomen is soft. Tenderness: There is no abdominal tenderness. There is no guarding or rebound. Musculoskeletal: General: No swelling. Normal range of motion. Cervical back: Normal range of motion. Right lower leg: No edema. Left lower leg: No edema. Neurological: General: No focal deficit present. Mental Status: She is alert and oriented to person, place, and time. Skin: General: Skin is warm and dry. Psychiatric: Mood and Affect: Mood normal. Behavior: Behavior normal. Vitals and nursing note reviewed. Exam conducted with a cath laboratory technician present. Vitals: Estimated body mass index is 27.27 kg/m as calculated from the following: Height as of 10/11/20: 5' 7 . Weight as of this encounter: 174 lb 1.9 oz. BP: 120/70 No LMP recorded. ASSESSMENT & PLAN ICD-10-CM 1. Exposure to STD Z20.2 SURESWAB(R) ADVANCED VAGINITIS PLUS, TMA CHLAMYDIA TRACHOMATIS (GENITO/STI) Neisseria gonorrhea DNA probe, direct 2. Vaginal discharge N89.8 SURESWAB(R) ADVANCED VAGINITIS PLUS, TMA CHLAMYDIA TRACHOMATIS (GENITO/STI) Neisseria gonorrhea DNA probe, direct 3. Hormone imbalance E34.9 Patient presents today for Vaginal issues. Patient would like to discuss hormone medication for facial hair and intercourse.patient has been on estrace in past with success and family doc suggested patient come to obgyn for refill. Pt also states she had increased facial hair.Patient would like to have cultures and labs obtained for STI. Patient will start on metformin, states she has had increased facial hair. Annual Exam: Patient presents today for an annual exam. Patient states she is doing well. Pap was obtained without difficulty. Orders Placed This Encounter Procedures Bilateral screening mammogram DEXA bone density CHLAMYDIA TRACHOMATIS (GENITO/STI) Neisseria gonorrhea DNA probe, direct HIV-1 and HIV-2 antibodies Hepatitis B surface antigen RPR Follow Up: Patient is to return in one year for annual unless needed otherwise. Documented by Maia Cobos LPN on behalf of: MICHEAL Cifuentes documented in this encounterNOMS [id number] NoteChief Complaint consultation for abnormal breast US [...] 12/09/2020 Recorded SARS-CoV-2 (COVID-19) mRNA-1273 vaccine 11/11/2020 [facility]ed[facility] [place]Comment on above:Result Comment: Electronically Signed By: BERONICA RAMIREZ, Dieter Bryson\Date and Time Signed: 11/19/23 14:27 [id number] Evaluation note * Encounter Date Diagnosis Assessment [...] may be able to offer some advice. [employer] Other 09-25-2023 Evaluation note* Encounter Date Diagnosis Assessment Notes Treatment Notes Treatment Clinical Notes Apr, Right lumbar radiculopathy (ICD-10 - M54.16) Presently in PT - discharged on 05/02. Requests MRI and referral. [employer] Other 08-22-2023 Evaluation note* Encounter Date Diagnosis Assessment Notes Treatment Notes Treatment Clinical Notes Mar, Right hip pain (ICD-10 - M25.551) PT paper given to pt. Handout for home stretches given as well. Tramadol to help her sleep. She understands it is a controlled substance and could be sedating. [employer] Other 05-15-2023 Evaluation note* Encounter Date Diagnosis [...] Above note written by Morris Flor MA, [employer]. Edited and approved by Dr. Goldy Glover [...] negative findings were considered in medical decision-making. [employer] Other 04-28-2023 Evaluation note* Encounter Date Diagnosis Assessment Notes Treatment Notes Treatment Clinical Notes Nov, Lumbar pain (ICD-10 - M54.50) [employer] Other 07-20-2022 Evaluation note* Encounter Date Diagnosis Assessment Notes Treatment Notes Treatment Clinical Notes Feb, Bipolar 1 disorder, depressed (ICD-10 - F31.9) [employer] Other 05-05-2022 Evaluation note* Encounter Date Diagnosis Assessment Notes Treatment Notes Treatment Clinical Notes December, Bipolar 1 disorder, depressed (ICD-10 - F31.9) [employer] Other Evaluation + Plan note No data available for this section General Surgery Suhail Evaluation + Plan note Future Appointments Appointment Date:06/18/2024 03:30:00 PM Scheduled [facility] Type:Surgical PAT FT Appointment Date:06/24/2024 09:00:00 AM Scheduled Provider: [facility] Type:Surgery FT [facility] Evaluation + Plan note Future Appointments Appointment Date:06/24/2024 09:00:00 AM Scheduled Provider: Location:[facility] Appointment Type:Surgery FT [facility] Evaluation + Plan note Future Appointments Appointment Date:07/06/2024 10:00:00 AM Scheduled Provider: Location:[facility] Appointment Type:Surgical PAT FT Appointment Date:07/22/2024 08:00:00 AM Scheduled Provider: Location:[facility] Appointment Type:Surgery FT [facility] Evaluation + Plan note Future Appointments Appointment Date:07/22/2024 08:00:00 AM Scheduled Provider: [facility] Type:Surgery FT [facility] Evaluation + Plan note Future Appointments Appointment Date:07/23/2024 10:30:00 AM Scheduled Provider: Location[facility] Appointment Type:URO Nurse Visit [facility] evaluation noteNo InformationNort [employer] Other evaluation noteNo assessment information available [facility] Work Phone: evaluation note* Diagnosis Onset Date Resolution Status Acne acute Breast mass, right acute Wellness examination acute Abnormal ultrasound of breast acute [facility] Work Phone: evaluation note* Diagnosis Onset Date Resolution Status Abnormal ultrasound of breast acute [facility] Work Phone: evaluation note* Diagnosis Onset Date Resolution Status UTI (urinary tract infection) acute Dysuria noneactive [facility] Work Phone: evaluation note* Diagnosis Onset Date Resolution Status UTI (urinary tract infection) acute Dysuria noneactive UTI (urinary tract infection) acute [facility] Work Phone: evaluation note* Diagnosis Exposure to STD Vaginal discharge Leukorrhea, not specified as infective Hormone imbalance Sexually transmitted disease exposure Contact with or exposure to venereal diseases Well woman exam with routine gynecological exam Routine gynecological examination Breast cancer screening by mammogram Postmenopausal state Asymptomatic postmenopausal status (age-related) (natural) documented in this encounter [facility] HealthcareHistory general Narrative - Reported* Type Description Date Medical History bipolar disorder Medical History anxiety disorder Medical History high blood pressure Surgical History 2 boul ligation 2000 Surgical History stepidectomy 2009 Surgical History sinus surgery 2015 Hospitalization History See surgical hx Hospitalization History Invoiceable Other Hisqubs general Narrative - Reported* Type Description Date Medical History bipolar disorder Medical History anxiety disorder Medical History high blood pressure Medical History Fatigue Medical History High risk medication use Surgical History 2 boul ligation 2000 Surgical History stepidectomy 2009 Surgical History sinus surgery 2015 Surgical History LUBAL LIGATION Hospitalization History See surgical hx Hospitalization History Invoice[employer] Other History general Narrative - Reported* Type Description Date Medical History bipolar disorder Medical History anxiety disorder Medical History high blood pressure Medical History Fatigue Medical History High risk medication use Medical History heart disease Medical History high cholesterol Medical History chronic depression Medical History obesity Surgical History 2 boul ligation 1999 Surgical History stapedectomy 2009 Surgical History sinus surgery 2015 Surgical History LUBAL LIGATION Hospitalization History See surgical hx Hospitalization History child [facility] Other Hospital Discharge instructionsAmbulatory Orders* Referral to General Surgery Time Frame: 11/12/23, Location: None [facility] Work Phone: Hospital Discharge instructions No data available for this section General Surgery Suhail Progress note No data available for this section General Surgery Suhail Reason for Referral Reason piriformis pain Diagnosis 1 Adolescent idiopathi c scoliosis of lumbosacral spine (M41.127) Referral Organization [facility] urosurgery Referring Provider First Name Helio Referring Provider Last Name Asha Referring Provider Specialty Neurologica l Surgery Referred Organization [facility] Ortho pedics Referred Provider Danny Solares Referred Address [address] [place], [place],[address] Referred Provider Specialty Orthopaedic Surgery Referral Priority Routine Reason Requests Dr. Helio qureshi - MRI pending. Went to [place] [facility] and had xrays on 05/05. Diagnosis 1 Right lumbar radicul opathy (M54.16) Referral Organization [facility] Tintri C lauren Referring Provider First Name Seb Referring Provider Last Name Asha Referring Provider Specialty Family Medi cine Referred Organization [facility] Neurosurgery [facility] Referred Address [address] [place], [place],[address] Referred Provider Specialty Neurological Surgery Referral Priority Routine Reason No preference on off ice - Lumbar pain - recent OV and xray - thanks Diagnosis 1 Lumbar pain (M54.50) Referral Organization [facility] Tintri C lauren Referring Provider First Name Seb [...] FOR VISIT (unrecogniz ed section and content) Reason Comments vaginal issues INFORMATION SOURCE (unrecogn ized section and content) DATE CREATED AUTHOR 12/25/2022 [facility] DATE CREATED AUTHOR AUTHOR'S ORGANIZ ATION 04/23/2024 [facility] DATE CREATED AUTHOR AUTHOR'S ORGANIZ ATION 06/20/2024 [facility] DATE CREATED AUTHOR AUTHOR'S ORGANIZ ATION 07/04/2024 [facility] DATE CREATED AUTHOR AUTHOR'S ORGANIZ ATION 07/06/2024 [facility] DATE CREATED AUTHOR AUTHOR'S ORGANIZ ATION 07/13/2024 [facility] DATE CREATED AUTHOR AUTHOR'S ORGANIZ ATION 07/27/2024 [facility] Care Teams (unrecognized sec tion and [...] End: December 31, 2023 Dieter Loco MD [facility] Attending Provider Active Start: December 31, [...] June 21, 2024 End: June 21, 2024 [facility] Relationship Specialty Start Date End Date Seb Barry MD [address] [place] [phone] PCP - General Family Medicine 04/21/23 [facility] Relationship Specialty Start Date End Date Seb Barry MD [address] [place] [phone] PCP - General Family Medicine 04/21/23 [facility] Relationship Specialty Start Date End Date Seb Barry MD [address] [facility] [place] [phone] PCP - General Family Medicine 04/21/23 Goals [...] BE BASED ON THE PRIMARY CLINICAL RECORDS. [employer] provides no warranty or guarantee of the accuracy or completeness of information in this document.
== END 2024-07-31 00:43 | disposition home or self-care (01) ==
PROVIDERS: Emergency Provider Emergency Medicine; PCP Family Medicine
DX: R33.9 Retention of urine, unspecified (principal); Z98.890 Other specified postprocedural states; Z98.51 Tubal ligation status; Z98.82 Breast implant status
CPT/HCPCS: 51702; 51798; 99284

== ENCOUNTER 2024-10-14 10:00 | Outpatient (OUT) | payer OTHER, SELFPAY ==
--- OUTSIDE RECORDS SUMMARY | 2024-10-14 10:25 | XMS_ITS | CCD ---
Author Organization [facility] Care Team Providers Care Medical Legal Investigator Name Role Phone Paresh Calixto Unavailable Seb Barry Unavailable Goldy Glover Unavailable ASHA, DR SEB Reyes Attending Unavailable BARRY, DR SEB Reyes Consulting Unavailable BARRY, DR SEB Reyes Admitting Unavailable BARRY, DR SEB Reyes Admitting Unavailable WEST, DR MAKEDA Schneider Consulting Unavailable BARRY, DR SEB Reyes Attending Unavailable BARRY, DR SEB Reyes Consulting Unavailable REGULO HINDS Admitting Unavailable LEXIE, REGULO Attending Unavailable REGULO [...] Admitting Unavailable MD Helio Barry Attending Provider [phone] MD Seb Barry Primary Care Provider [phone] Helio Barry Unavailable NO FAMILY, PHYSICIAN Primary Care Provider Unava MD Pan Gutierrez Attending Provider [phone] SEB BARRY Primary Care Physician NO FAMILY, PHYSICIAN Primary Care Provider Unava MD Pan Gutierrez Attending Provider [phone] MD Seb Barry Primary Care Provider MD Dieter Loco Attending Provider NO FAMILY, PHYSICIAN Primary Care Provider Unava MD Pan Gutierrez Attending Provider [phone] FAIZA ALMENDAREZ Attending Unavailable NO FAMILY, PHYSICIAN Primary Care Provider Unava ilable MD Pan Sanders Attending Provider [phone] KAUSHAL Hill Attending Provider [phone] NON STAFF Primary Care Provider UnavailDieter Olivarez Attending Unavailable NKANSAH-AMANKRA, HAMILTON Attending Unavail able Beryl Henderson Attending Unavailable KARON FLORES Attending Unavailable NKANSAH-AMANKRA, HAMILTON Admitting Unavail able NKANSAH-AMANKRA, HAMILTON Attending Unavail able NKANSAH-AMANKRA, HAMILTON Referring Unavail able Dieter LOCO Attending Unavailable Dieter LOCO Attending Unavailable Dieter LOCO Attending Unavailable Adamaris Hill APRN Attending Provider [phone] NON STAFF Primary Care Provider UnavailSeb Martínez MD Attending Provider [phone] NO FAMILY, PHYSICIAN Primary Care Provider Unava ilable Marilyn RAMIREZ, Pan Attending Provider NKANSAH-AMANKRA, HAMILTON Admitting Unavail able NKANSAH-AMANKRA, HAMILTON Attending Unavail able NKANSAH-AMANKRA, HAMILTON Referring Unavail able NKANSAH-AMANKRA, HAMILTON Referring Unavail able NKANSAH-AMANKRA, HAMILTON Admitting Unavail able NKANSAH-AMANKRA, HAMILTON Attending Unavail able NKANSAH-AMANKRA, HAMILTON Attending Unavail able Seb Barry MD Primary Care Provider NKANSAH-AMANKRA, HAMILTON Attending Unavail able NKANSAH-AMANKRA, HAMILTON Attending Unavail able NKANSAH-AMANKRA, HAMILTON Referring Unavail able NKANSAH-AMANKRA, HAMILTON Admitting Unavail able CROW, DO Ronobir R Admitting Unavailabl e CROW DO Ronobir R Attending Unavailabl e DO CROW Ronobir R Attending Unavailabl Brandon Walls Consulting Unavailable DO Aroldo MARIAobir R Admitting Unavailabl Brandon Walls Consulting Unavailable Brandon Kulkarni Consulting Unavailable NO FAMILY, PHYSICIAN Primary Care Provider Stacyva Pan Gutierrez MD Attending Provider Seb Barry MD Primary Care Provider Hamilton Malone MD Attending Provider MD HAMILTON MALONE Attending Unav ailable GABBY, MD VILLASENOR Attending Unav ailable GABBY, MD VILLASENOR Referring Unav ailable GABBY, MD VILLASENOR Attending Unav ailable GABBY, MD VILLASENOR Attending Unav ailable GABBY, MD VILLASENOR Attending Unav ailable OJUKWEri Hensley Attending Unavailable DO Aditya MARIA Admitting Unavailabl e Brandon Kulkarni Consulting Unavailable Brandon Kulkarni Consulting Unavailable Brandon Kulkarni Consulting Unavailable Adamaris Hill Attending Unavailable NON STAFF Primary Care Unavailable Liz Adamaris M Admitting Unavailable Seb Barry Admitting Unavailable Seb Barry Attending Unavailable NO FAMILY, PHYSICIAN Primary Care Unavailable Pan Sanders Admitting Unavailab Pan [place] Attending Unavailab le Seb Barry Primary Care Unavailable Nkdagmar-Amderick, Hamilotn Admitting Unavail able Hamilton Malone Attending Unavail able Seb Barry Primary Care Unavailable Dieter Loco Admitting Unavailable Dieter Loco Attending Unavailable Allergies Allergy Classification Reported Allergen(s) Allergy Type Date of Onset Reaction(s) Facility (13 sources) Penicillins Drug allergy 4 [facility] (20 sources) metFORMIN; Translations: [metformin] Drug Allergy 4 [facility] ([facility]order[facility] (8 sources) Substance with penicillin structure and antibacterial mechanism of action (substance) Drug allergy [facility] Other (20 sources) Penicillin; Translations: [penicillin] Drug Allergy [facility] (disorder) [facility] [place] (6 sources) Penicillins Drug Allergy 4 [facility] (1 source) metFORMIN Drug Allergy 5 [facility] (1 source) Penicillins Drug allergy (disorder) 4 [facility] Medications Current Medications Medication Drug Class(es) Dates Sig (Normalized) Sig (Original) aspirin 81 mg chewable tablet (7 sources) Platelet Aggregation Inhibitor, Nonsteroidal Anti-inflammatory Drug take 1 tablet by mouth every twenty-four hours Aspirin 81 MG 1 tablet Orally Once a day PRN Active Calcium Carbonate (13 sources) Start: 11-17-2023 take 1 tablet by mouth twice daily calcium carbonate = 1 tab(s), Oral, BID, Refills(s) 0 Start Date: 11/17/23 Status: Ordered Start: 10-22-2023 End: 08-18-2024 take 1 tablet by mouth twice daily at mealtime Calcium Carbonate 500 mg calcium (1,250 mg) tablet Discontinued 1 TAB PO Twice daily October 21, 2023 11:00pm August 18, 2024 8:04am FreeTextSi tablet with meals Orally Twice a [...] cysto, # 2 tab(s), Refills(s) 0, Pharmacy: [facility]/pharmacy #[id number], 170, cm, 05/25/24 10:38:00 EDT, Height/Length Dosing, 84, kg, 05/25/24 10:38:00 EDT, Weight Dosing Start Date: 05/28/24 Status: Ordered docusate sodium 100 mg oral capsule (6 sources) Start: 08-18-2024 take 1 capsule by mouth twice daily Docusate Sodium (Colace) 100 mg capsule Active 100 MG PO Twice daily August 18, 2024 12:00am Start: 08-09-2024 take 1 capsule by mouth twice daily Colace 100 mg Cap = 1 cap(s), Oral, BID, Refills(s) 0 Start Date: 08/09/24 Status: Ordered Start: 07-26-2024 take 1 capsule by mouth twice daily Colace 100 mg Cap 100 mg = 1 cap(s), Oral, BID, Refills(s) 0 Start Date: 07/26/24 Status: Ordered Start: 07-22-2024 take 1 capsule by mo [facility] twice daily as needed for constipation Colace 50 mg oral capsule 50 mg = 1 cap(s), Oral, BID, PRN for constipation, # 60 cap(s), Refills(s) 0, Pharmacy: [facility]/pharmacy #[id number], 174, cm, 07/06/24 9:03:00 EST, Height/Length Dosing, 81.8, kg, 07/06/24 9:03:00 EST, Weight Dosing Start Date: 07/22/24 Status: Ordered estradiol 0.1 mg/ml vaginal cream (10 sources) Estrogen Start: 04-21-2024 End: 05-21-2024 estradiol (Estrace) 0.1 MG/G M vaginal cream Indications: Hormone imbalance Insert 2 g into the vagina Daily Apply 1/2 APPLICATOR daily for 2 weeks 45 g 3 04/21/2024 05/21/2024 Active Start: 02-11-2024 Estradiol (Est race) 0.01 % (0.1 mg/gram) cream Active 1 GM VAGINAL Twice a Week 42.5 February 10, 2024 11:00pm Folate (2 sources) Folate Active LORazepam 0.5 mg oral tablet (7 [...] meals. 30 tablet 11 04/21/2024 04/21/2025 Active [place] 6-Cih-Eiz-Fish Oil (Fish Oil) 1,000 (120-180) mg capsule (1 source) Start: 08-18-2024 take 1 capsule by mouth once daily in the morning [place] 8-Ecy-Svr-Fish Oil (Fish Oil) 1,000 (120-180) mg capsule Active 1 CAP PO Every morning August 18, 2024 12:00am omeprazole 20 mg delayed release oral capsule (20 sources) Proton Pump Inhibitor Start: 10-22-2023 take 1 capsule by mouth once daily in the morning Omeprazole 20 mg capsule,delayed release(DR/EC) Active 20 MG PO Every morning October 21, 2023 11:00pm Medication Name: Omeprazole; Note: Source Status: [facility]; Provider: Asha Cadet ( ) take 1 capsule by mouth before m ealtime omeprazole (PriLOSEC) [address] capsule Take 10 mg by mouth in the morning. Take before meals. Do not crush or chew.. Active Omeprazole OTC A ctive OXcarbazepine 600 mg oral tablet (20 sources) Anti-epileptic Agent Start: 06-24-2024 take 1 tablet by mouth twice daily Oxcarbazepine (Trileptal) 600 mg tablet Active 600 MG PO Twice daily June 24, 2024 12:00am Start: 06-24-2024 End: 08-18-2024 take 1 tablet by mouth once daily Oxcarbazepine (Trileptal) 150 mg tablet Discontinued 150 MG PO Daily June 24, 2024 12:00am August 18, 2024 8:05am Start: 11-17-2023 take 2 tablets by mo [facility] twice daily oxcarbazepine 300 mg Tab 300 mg = 1 tab(s), Oral, BID, Take one tablet in morning and Two tablets at night, Refills(s) 0 Start Date: 11/17/23 Status: Ordered Start: 11-17-2023 take 1 tablet by feliberto once daily oxcarbazepine 300 mg Tab 300 [...] Marily Yoder ( ) Start: 10-22-2023 End: 06-24-2024 take 1 tablet by mouth once daily, then take 1 tablet by mouth in the morning Oxcarbazepine 600 mg tablet Discontinued 300 MG PO Once October 22, 2023 8:33am June 24, 2024 10:17am FreeTextSig: take 1 tablet by mouth once daily 1 150mg tablet in the am; Note: Source Status: Taking; Refills: 1; Provider: Marily Yoder ( ) take 1 tablet by feliberto th once daily, then take 1 tablet by mouth in the morning OXcarbazepine 600 MG take 1 tablet by mouth once daily 1 150mg tablet in the am for 90 days Active oxyCODONE hydrochloride 5 mg oral capsule (3 sources) Opioid Agonist Start: 08-18-2024 take 1 capsule by mouth every eight hours as needed for pain Oxycodone 5 mg capsule Active 5 MG PO Every 8 hours as needed for pain 5 3 August 18, 2024 Start: 07-22-2024 take 1 tablet by feliberto th every six hours as needed for pain Roxicodone 5 mg Tab 5 mg = 1 tab(s), Oral, q6hr, PRN for pain, # 5 tab(s), Refills(s) 0, Pharmacy: [facility]/pharmacy #[id number], 174, cm, 07/06/24 9:03:00 EST, Height/Length Dosing, 81.8, kg, 07/06/24 9:03:00 EST, Weight Dosing Start Date: 07/22/24 Status: Ordered phenazopyridine hydrochloride 100 mg oral tablet (1 source) Start: 06-24-2024 End: 06-27-2024 take 1 tablet by mouth three times daily Pyridium 100 mg Tab 100 mg = 1 tab(s), Oral, TID, X 3 day(s), # 9 tab(s), Refills(s) 0, Pharmacy: [facility]/pharmacy #[id number], 174, cm, 06/18/24 15:46:00 EST, Height/Length [...] mouth once daily for 90 Active sulfamethoxazole 400 mg / trimethoprim 80 mg oral tablet (10 sources) Dihydrofolate Reductase Inhibitor Antibacterial, Sulfonamide Antimicrobial Start: 08-18-2024 take 1 tablet by mouth twice daily Sulfamethoxazole-T rimethoprim (Bactrim) 400-80 mg tablet Active 1 TAB PO Twice daily August 18, 2024 12:00am Start: 07-22-2024 End: 07-27-2024 Bactrim D.S. 800 mg-160 mg T ab 1 tab(s), Oral, BID for 5 day(s), 10 tab(s), Refill(s) 0, [facility]/pharmacy #[id number], 174, cm, 07/06/24 9:03:00 EST, Height/Length Dosing, 81.8, kg, 07/06/24 9:03:00 EST, Weight Dosing Start Date: 07/22/24 Stop Date: 07/27/24 Status: Ordered Start: 05-19-2024 End: 06-04-2024 take 1 tablet by mouth twice daily Sulfamethoxazole-Trimethoprim (Bactrim Ds) 800-160 mg tablet Discontinued 1 [...] 11/17/23 Status: Ordered Start: 10-22-2023 End: 04-21-2024 Tretinoin 0.1 % cream Active 1 APPLIC TOPICAL 6 TIMES PER WEEK October 21, 2023 11:00pm 24 hr venlafaxine 225 mg extended release oral tablet (20 sources) Serotonin and Norepinephrine Reuptake Inhibitor Start: 11-17-2023 venlafaxine as directed, Refills(s) 0 Start Date: 11/17/23 Status: Ordered Start: 10-22-2023 venlafaxine XR (Effexor XR) 225 MG 24 hr tablet 1 tablet 10/22/2023 Active Start: 10-22-2023 take 1 tablet by feliberto th once daily in the morning Venlafaxine 225 mg tablet extended release 24hr Active 1 TAB PO Every morning October 21, 2023 11:00pm FreeTextSi tablet with [...] Not-Taking cyclobenzaprine hydrochloride 10 mg oral tablet (12 sources) Muscle Relaxant Start: 10-22-2023 End: 10-22-2023 [...] 3 times a day prn Active Iron Fum,Da-Jqfcs-Kgqsb,C No.9 (Iron Folate Plus) 125 mg iron- 1 mg capsule (8 sources) Start: 10-22-2023 End: 10-22-2023 take 1 capsule by mouth once daily at mealtime Iron Fum,Hb-Wjyct-Xcmcm,C No.9 (Iron Folate Plus) 125 mg iron- 1 mg capsule Discontinued 1 CAP PO Daily October 21, 2023 11:00pm October 22, 2023 8:33am administer between meals Start: 10-22-2023 End: 10-22-2023 take 1 capsule by mouth once daily at mealtime Iron Fum,Mt-Bnfvx-Rdjcl,C No.9 (Iron Folate Plus) 125 mg iron- 1 mg capsule Discontinued 1 CAP PO Daily October 22, 2023 12:00am October 22, 2023 9:33am administer between meals lithium carbonate 600 mg oral capsule (20 sources) Start: 06-24-2024 End: 08-18-2024 take 1 capsule by mouth once daily at bedtime [place] Carbonate 600 mg capsule Discontinued 600 MG PO Daily at bedtime June 24, 2024 12:00am August 18, 2024 8:04am Start: 11-17-2023 take 1 tablet by feliberto th at bedtime lithium 300 mg oral tablet 300 mg = 1 tab(s), Oral, Bedtime, Refills(s) 0 Start Date: 11/17/23 Status: Ordered Start: 11-17-2023 take 3 tablets by mo uth at bedtime lithium 300 mg oral tablet 900 mg = 3 tab(s), Oral, Bedtime, Refills(s) 0 Start Date: 11/17/23 Status: Ordered Start: 10-22-2023 lithium ER (Li thobid) 300 MG 12 hr tablet Take 900 mg by mouth Daily 10/22/2023 Active Start: 10-22-2023 End: 06-24-2024 take 3 tablets by mouth three times daily at bedtime [place] Carbonate 300 mg tablet extended release Discontinued MG PO Three times daily October 22, 2023 8:33am June 24, 2024 10:17am FreeTextSi tablets Orally at HS; Note: Source Status: [id number] mg as needed; Refills: 0; Provider: Asha Cadet ( ) take 3 tablets by mo [facility] at bedtime [place] Carbonate ER 300 MG 3 tablets Orally at HS for 90 days 900-1200 mg as needed Active take 4 tablets by mo [facility] every twenty-four hours [place] Carbonate ER 300 MG 4 tablets Orally Once a day for 90 days 900-1200 mg as needed Active melatonin 5 mg oral tablet (20 sources) Start: 09-19-2021 take 1 tablet by mouth once daily in the evening Melatonin 5 MG 1 tablet in the evening Orally Once a day for 30 day(s) Sep, Not-Taking nitrofurantoin, macrocrystals 100 mg oral capsule (3 sources) Nitrofuran Antibacterial Start: 06-04-2024 End: 06-21-2024 take 1 capsule by mouth twice daily at mealtime Nitrofurantoin Macrocrystal 100 mg capsule Discontinued 100 MG PO Twice daily June 03, 2024 11:00pm June 21, 2024 10:50am must administer with a meal/food traMADol hydrochloride 50 mg oral tablet (14 sources) Opioid Agonist Start: 10-22-2023 End: 10-22-2023 take 1 tablet by mouth once daily at bedtime as needed Tramadol 50 mg tablet Discontinued 50 MG PO Daily October 21, 2023 11:00pm October 22, 2023 8:33am FreeTextSi tablet as needed Orally Once a day (QHS); Note: Source Status: Taking; Refills: 0; Provider: Asha Reyes Start: 04-01-2023 take 1 tablet by [facility] once daily at bedtime as needed traMADol [...] Translations: [Acute kidney failure, unspecified] Onset: 07-25-20 24 Episodic Acute myocardial infarction (12 sources) Myocardial infarction 05-24-2024 Chronic Comment on above: Outside Source Comme nt: Comment on above: 2003 Anxiety disorders (15 sources) Anxiety 11-17-2023 Chronic Complication of device; implant or graft (5 sources) Infection of bladder catheter; Translations: [Infection and inflammatory reaction due to other urinary catheter, initial encounter] Onset: 07-30-20 Episodic Disorders of lipid metabolism (15 sources) Hypercholesterolemia 11-17-2023 Chronic Esophageal disorders (13 sources) Gastroesophageal reflux disease; Translations: [Gastroesophageal reflux disease without esophagitis] Onset: 07-25-2005-24-2024 Chronic Essential hypertension (18 sources) Essential (primary) hypertension; Translations: [Essential hypertension] Onset: 05-17-2011-17-2023 Chronic Genitourinary symptoms and ill-defined conditions (20 sources) Urinary incontinence; Translations: [Unspecified urinary incontinence] Onset: 05-25-2002-11-2024 Chronic Headache; including migraine (12 sources) Migraine 05-24-2024 Chronic Malaise and fatigue (11 sources) Fatigue; Translations: [Other fatigue] Onset: 05-17-20 Episodic Menopausal disorders (18 sources) Menopausal and postmenopausal disorders; Translations: [Unspecified menopausal and perimenopausal disorder] Onset: 06-11-20 Chronic Mood disorders (20 sources) Bipolar disorder; Translations: [Bipolar disorder, unspecified] Onset: 12-14-19 Resolved : 11-17-19 Chronic Neoplasms of unspecified nature or uncertain behavior (16 sources) Neoplasm of uncertain behavior of bladder; 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] Onset: 06-11-20 Episodic Nonmalignant breast conditions (20 sources) Breast lump; Translations: [Unspecified lump in the right breast, unspecified quadrant] Onset: 11-19-1910-22-2023 Episodic Other acquired deformities (15 sources) Scoliosis deformity of spine 11-17-2023 Chronic Other aftercare (8 sources) H/O: high risk medication; Translations: [Other skilled nursing (current) drug therapy] Episodic Other aftercare (5 sources) Other skilled nursing (current) drug therapy; Translations: [OTH JAIL CURRENT DRUG THERAPY] Onset: 05-17-20 Episodic Other aftercare (3 sources) Long-term current use of drug therapy; Translations: [Other skilled nursing (current) drug therapy] Onset: 07-25-20 Episodic Other and ill-defined heart disease (15 sources) Heart disease 11-17-2023 Chronic Other bone [...] Episodic Other diseases of bladder and urethra (16 sources) Urethral caruncle; Translations: [Urethral caruncle] Onset: 06-11-20 Episodic Other female genital disorders (5 sources) Vaginal dryness; Translations: [Other specified noninflammatory [...] Episodic Other nutritional; endocrine; and metabolic disorders (15 sources) Overweight 11-17-2023 Episodic Other nutritional; endocrine; and metabolic disorders (15 sources) Overweight in adulthood with body mass index of 25 or more but less than 30 11-19-2023 Episodic Other screening for suspected conditions (not mental disorders or infectious disease) (17 sources) Encounter for screening mammogram for malignant neoplasm of breast; Translations: [Ultrasonography of breast abnormal] Onset: 11-15-19 Episodic Other skin disorders (20 sources) Acne; Translations: [Acne, unspecified] 10-22-2023 Episodic Other skin disorders (2 sources) Acne, unspecified; Translations: [Other acne] 10-22-2023 Episodic Otitis media and related conditions (2 sources) Non-suppurative otitis media; Translations: [Unspecified nonsuppurative otitis media, left ear] Episodic Prolapse of female genital organs (18 sources) Cystocele; Translations: [Cystocele, unspecified] Onset: 06-11-20 Chronic Rehabilitation care; fitting of prostheses; and adjustment of devices (1 source) Encounter for fitting and adjustment of other specified devices; Translations: [Encounter for fitting and adjustment of other specified devices] Onset: 08-18-19 Chronic Residual codes; unclassified (12 sources) Sleep apnea 05-24-2024 Chronic Residual codes; [...] Translations: [Tobacco use] Episodic Residual codes; unclassified (15 sources) Chronic pain 11-17-2023 Episodic Residual codes; unclassified (1 source) Other specified postprocedural states; Translations: [Other specified postprocedural states] Onset: 08-18-19 Episodic Septicemia (except in labor) (3 sources) Sepsis, unspecified organism; Translations: [A41.9] Onset: 07-25-20 Episodic Spondylosis; intervertebral disc disorders; other back problems (8 sources) Solitary sacroiliitis; Translations: [Sacroiliitis, not elsewhere classified] Chronic Unclassified (3 sources) LOW BACK PAIN, UNSPECIFIED; Translations: [LOW BACK PAIN, UNSPECIFIED] Onset: 12-13-19 Past or Other Problems Problem Classification Problem Date Documented Date Episodic/Chronic Genitourinary symptoms and ill-defined conditions (11 sources) Dysuria; Translations: [Dysuria] Onset: 05-19-2024 05-19-2024 Episodic Immunizations and screening for infectious disease (4 [...] Spondylosis; intervertebral disc disorders; other back problems (19 sources) Radiculopathy, lumbar region; Translations: [Lumbar radiculopathy] Onset: 04-22-2023 Episodic Unclassified (1 source) Lumbar pain M54.50 Unclassified (1 source) Other low back pain M54.59 Unclassified (1 source) LOW BACK PAIN, UNSPECIFIED; Translations: [LOW BACK PAIN, UNSPECIFIED] Onset: 12-06-2022 Urinary tract infections (14 sources) Urinary tract infectious disease; Translations: [Urinary tract infection, site not specified] Onset: 06-04-2024 05-19-2024 Episodic Results Test Name Value Interpretation Reference Range Facility ECG 12 lead ECGon 08-18-2024 ECG 12 lead ECG [facility] [place] [address] Electrocardiograph Report Signed Patient: Rain Sweeney MR#: [id number] : 1960 Acct:[id number] Age/Sex: 64 / F ADM Date: 08/18/24 Loc: [place] Room: Type: [facility] Attending Dr: Hamilton Malone MD Ordering Provider: MAKEDA JAEGER DO Date of Service: 08/18/2404/04/755 ECG/ECG 12 lead ECG: pre-op Copies to: Test Reason : Blood Pressure : */* mmHG Vent. Rate : 114 BPM Atrial Rate : 114 BPM P-R Int : 150 ms QRS Dur : 94 ms QT Int : 350 ms P-R-T Axes : -11 -11 -26 degrees QTcB Int : 482 ms Sinus tachycardia Inferior infarct , age undetermined Abnormal ECG No previous ECGs available Confirmed by ROBERTO DIAZ MD ([id number]) on 08/18/2024 12:48:13 PM Referred By: Electronically Signed By: ROBERTO DIAZ MD Transcribed By: MUS Signed By Roberto Diaz MD 0 08/18/24 1248 Normal [facility] Ambulatory Visit Summaryon 0 08-13-2024 Ambulatory Visit Summary Ambulatory Visi t Summary RAIN SWEENEY :1960 Visit Date:08/13/2024 Ambulatory Visit Instructions Your Diagnosis Urinary retention Bladder neoplasm of uncertain malignant potential Stress incontinence Urethral caruncle Atrophic vaginitis Cystocele with rectocele Your Care Team Attending Physician - GABBY RAMIREZ, HAMILTON Primary Care Physician - SEB BARRY MD This Is Your Medications List Contact prescribing physician if questions or concerns docusate (Colace 100 mg Cap) lithium (lithium 300 mg oral tablet) omeprazole (omeprazole 20 mg Cap-DR) oxcarbazepine (oxcarbazepine 300 mg Tab) tretinoin topical (tretinoin Top 0.1% Crm) venlafaxine Procedures Performed Cystoscopy (07/22/2024), Cystoscopy (06/24/2024), OBSERVATION:PRID:PT: [id number] STAIN (04/21/2024), History of augmentation of breast, History of bilateral breast implants, History of nasal sinus surgery, Stapedectomy, Tubal ligation. What to do next Scheduled Follow-Up Appointments 2024 8:00 AM EST With: HAMILTON MALONE MD Where: [facility] [address], [address] [place] [address]- You Need to Schedule the Following Appointments Follow Up with HAMILTON MALONE MD, URL When: Comments: sched loosening of MUS Where: Medications What How Much When Instructions Unchanged docusate (Colace 100 mg Cap) 1 Capsules By Mouth 2 times a day Contact prescribing physician if questions or concerns Unchanged lithium (lithium 300 mg oral tablet) 1 Tablets By Mouth At bedtime Contact prescribing physician if questions or concerns Unchanged omeprazole (omeprazole 20 mg Cap-DR) 1 Capsules By Mouth Every day Contact prescribing physician if questions or concerns Unchanged oxcarbazepine (oxcarbazepine 300 mg Tab) 1 Tablets By Mouth 2 times a day Take one tablet in morning and Two tablets at night Contact prescribing physician if questions or concerns Unchanged tretinoin topical (tretinoin Top 0.1% Crm) 1 Application Topical Once a day (at bedtime) Contact prescribing physician if questions or concerns Unchanged venlafaxine 225 Milligram By Mouth Every day as directed Contact prescribing physician if questions or concerns Allergies penicillin (Hives) Problems Ongoing - Any problem that you are currently receiving treatment for. Acne Anxiety Atrophic vaginitis Bipolar illness Bladder neoplasm of uncertain malignant potential BMI 28.0-28.9,adult Catheter cystitis Chronic depression Chronic pain Cystocele with rectocele Essential hypertension Gastroesophageal reflux disease Heart disease Hypercholesterolemia Lesion of right nipple Lumbar radiculopathy Migraine Myocardial infarction Overweight Scoliosis of lumbosacral spine Sleep apnea Stress incontinence Urethral caruncle Urinary retention Historical - Any problem that you are [...] including vitamins, herbs, eye drops, creams, and [id number] medicines. ??? Any problems you or family [...] ??? Up to 2 hours before the proced (more content not included)... Normal Donis [facility] Urology Video Visit - Telehe althon 08-13-2024 Urology Video Visit - Telehealth Urology Video Visit - Telehealth Chief Complaint Discuss loosening sling HPI Staff 64 year old female patient here for PO MUS 07/22/24.Discuss loosening the sling Previous Dx: stress incontinence, urinary retention, bladder neoplasm of uncertain malignant, atrophic vaginitis, urethral caruncle and cystocele with rectocele *estrogen cream, apply pea-sized amount 2-3 times per week. S/P cysto 06/11/24, 07/22/24 retropubic (supris) mid urethral sling CICs 7 times a day Dysuria: denies Incomplete bladder emptying: CICs Hematuria: noticed blood yesterday Frequency: denies Urgency: yes Nocturia: once a night Stream: CICs Leaking: denies Post void dripping: denies Wearing pads/ Depends: denies Urge incontinence: denies Stress incontinence: denies Incontinence without Sensory Awareness: denies Abdominal pain: denies Flank pain: denies Sexual complaints: _ History of Present Illness Tests reviewed: none I have reviewed the previous health record information and history for this patient from Dr. Malone. I have reviewed and verified the staff [...] no anxiety. Genitourinary: See HPI. Physical Exam General Appearance: alert , no acute distress, well nourished, well developed female. Assessment/Plan 1. Urinary retention (R33.9: Retention of urine, unspecified) S/p retropubic (Supris) MUS 07/22/24. -Went to ER ~1wk after MUS due to inability to urinate, had Lyn placed. Bladder scan 07/31/24 - 915 cc -Catheter removed IO and was taught CIC 08/06/24. S/p Cysto 07/30/24 - No erosion of the sling. Catheter cystitis on posterior left bladder wall. States she is doing CIC exclusively to empty but is able to void very small volumes on her own. Reports higher volume outputs with CIC. Advised pt she likely needs sling loosened to help improve emptying. Risks/benefits discussed. Pt wishes to proceed. -Will schedule Reduced tension of sling. The procedural risks, benefits, details, and [...] of chronic pelvic pain after the procedure. Full informed consent has been obtained. Will order Local anesthesia. 2. Bladder neoplasm of uncertain malignant potential [...] is identified. No muscularis propria is present. -Pt to have Cysto in 3 months to monitor. [1] 3. Stress incontinence (N39.3: Stress incontinence (female) (male)) Had urethral bulking about 8 yrs ago at another facility. This worked great until the past 6-12 mos. BBS (5) - not filled out today due to video visit. Exam at cysto 06/11/24 - Bladder and rectal prolapse with severe STACIA with coughing S/p retropubic (Supris) MUS 07/22/24. -See #1 4. 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 Started on Estrace cream at that time. [2] 5. Atrophic vaginitis (N95.2: Postmenopausal atrophic vaginitis) using Estrace Cream, pt is to cont, and call for refills. [3] 6. Cystocele with rectocele (N81.10: Cystocele, unspecified) Exam at cysto 06/11/24 - Bladder and rectal prolapse with severe STACIA with coughing [4] This visit was conducted via two-way, real-time interactive video communicat (more content not included)... Normal [facility] Comment on above: Result Comment: Elec tronically Signed By: HAMILTON MALONE MD\.br\Date and Time Signed: 08/13/24 13:00 EST\.br\Electronically Co-Signed By: Ani Kirk\.br\Date and Time Co-Signed: 08/13/24 12:19 EST\.br\Electronically Co-Signed By: Ani Kirk\.br\Date and Time Co-Signed: 08/13/24 12:20 EST Ambulatory Visit Summaryon 1 10-07-2023 Ambulatory Visit Summary Ambulatory Visi t Summary TESFAYERAIN OTERO :1960 Visit Date:08/06/2024 Ambulatory Visit Instructions Your Diagnosis Urinary retention Bladder neoplasm of uncertain malignant potential Stress incontinence Urethral caruncle Atrophic vaginitis Cystocele with rectocele Catheter cystitis Your Care Team Attending Physician - HAMILTON MALONE MD Primary Care Physician - SEB ABRRY MD This Is Your Medications List Contact prescribing physician if questions or concerns lithium (lithium 300 mg oral tablet) omeprazole (omeprazole 20 mg Cap-DR) oxcarbazepine (oxcarbazepine 300 mg Tab) tretinoin topical (tretinoin Top 0.1% Crm) venlafaxine Procedures Performed Cystoscopy (07/22/2024), Cystoscopy (06/24/2024), OBSERVATION:PRID:PT: CVX:NOM:CYTO STAIN (04/21/2024), History of augmentation of breast, History of bilateral breast implants, History of nasal sinus surgery, Stapedectomy, Tubal ligation. Discharge Vitals Heart Rate (Peripheral) 88 Respiratory Rate 17 Blood Pressure 132/48 Height 170 cm Height 67 in Weight 82 kg Weight 180.779 lb BMI 28.37 What to do next Scheduled Follow-Up Appointments 2024 8:00 AM EST With: HAMILTON MALONE MD Where: [facility] [address], [address] [place] [address]- You Need to Schedule the Following Appointments Follow Up with HAMILTON MALONE MD, URL When: Where: Medications What How Much When Instructions Unchanged lithium (lithium 300 mg oral tablet) 1 Tablets By Mouth At bedtime Contact prescribing physician if questions or concerns Unchanged omeprazole (omeprazole 20 mg Cap-DR) 1 Capsules By Mouth Every day Contact prescribing physician if questions or concerns Unchanged oxcarbazepine (oxcarbazepine 300 mg Tab) 1 Tablets By Mouth 2 times a day Take one tablet in morning and Two tablets at night Contact prescribing physician if questions or concerns Unchanged tretinoin topical (tretinoin Top 0.1% Crm) 1 Application Topical Once a day (at bedtime) Contact prescribing physician if questions or concerns Unchanged venlafaxine 225 Milligram By Mouth Every day as directed Contact prescribing physician if questions or concerns Allergies penicillin (Hives) Problems Ongoing - Any problem that you are currently receiving treatment for. Acne Anxiety Atrophic vaginitis Bipolar illness Bladder neoplasm of uncertain malignant potential BMI 28.0-28.9,adult Catheter cystitis Chronic depression Chronic pain Cystocele with rectocele Essential hypertension Gastroesophageal reflux disease Heart disease Hypercholesterolemia Lesion of right nipple Lumbar radiculopathy Migraine Myocardial infarction Overweight Scoliosis of lumbosacral spine Sleep apnea Stress incontinence Urethral caruncle Urinary retention Historical - Any problem that you are no longer receiving treatment for. Bipolar disorder Patient Survey You may receive a survey via text or e-mail asking about your office visit. Please share your experience with us by completing your survey. We appreciate your feedback and thank you for choosing us for your care. Education Materials Acute Urinary Retention, Female Acute urinary retention is a condition in which a person is unable to pass urine or can only pass a little urine. This condition can happen suddenly and last for a short time. If left untreated, it can become long-term (chronic) and result in kidney damage or other serious complications. What are the causes? This condition may be caused by: ??? Obstruction or narrowing of the tube that drains the bladder (urethra). This may be caused by surgery, problems with nearby organs, or injury to the bladder or urethra. ??? Problems with the nerves in the bladder. ??? Pelvic organ prolapse. ??? Tumors in the area of the pelvis, bladder, or urethra. ??? Vaginal childbirth. ??? Bladder or urinary tract infection. ??? Constipation. ??? Certain medicines. What increases the risk? This condition is more likely to develop in women over age 50. Other chronic health conditions can increase the risk of acute urinary retention. These include: ??? Diseases such as multiple sclerosis. ??? Spinal cord injuries. ??? Diabetes. ??? Degenerative cognitive conditions, such as delirium or dementia. ??? Psychological conditions. A woman may hold her urine due to trauma or because she does not want to use the bathroom. ??? History of preexisting urinary retention. ??? History of prior pelvic surgery, incontinence surgery, or radical pelvic surgery. What are the signs or symptoms? Symptoms of this condition include: ??? Trouble urinating. ??? Pain in the lower abdomen. How is this diagnosed? This condition is diagnosed based on a physical exa (more content not included)... Normal Donis [facility] Urology Office/Clinic Noteon 08-06-2024 Urology Office/Clinic Note Urology Office/Clinic Note Chief Complaint 2 week follow up lyn HPI Staff 64 year old female patient here for a 6 day follow up from [facility] ER follow up from 07/31/24.Bladder scan: 915 cc 07/31/24 Previous Dx: stress incontinence, urinary retention, bladder neoplasm of uncertain malignant, atrophic vaginitis, urethral caruncle and cystocele with rectocele *estrogen cream, apply pea-sized amount 2-3 times per week. S/P cysto 06/11/24, 07/22/24 retropubic (supris) mid urethral sling Dysuria: declines Incomplete bladder emptying: declines Hematuria: declines Frequency: declines Urgency: declines Nocturia: declines Stream: declines Leaking: declines Post void dripping: declines Wearing pads/ Depends: declines Urge incontinence: declines Stress incontinence: declines Incontinence without Sensory Awareness: declines Abdominal pain: declines Flank pain: declines Sexual complaints: declines History of Present Illness Tests reviewed: UA and medical records I have reviewed the previous health record information and history for this patient from external provider. I have reviewed and verified the staff [...] HPI. Physical Exam Vitals & Measurements HR: 88(Peripheral) RR: 17 BP: 132/48 HT: 67 in HT: 170 cm WT: 82 kg WT: 180.779 lb BMI: 28.37 General Appearance: alert, no distress, well nourished, well developed female. Assessment/Plan 1. Urinary retention (R33.9: Retention of urine, unspecified) S/P cysto 06/11/24, 07/22/24 retropubic (Supris) mid urethral sling S/p Cysto 07/29/24 Pt called into the office on 08/02/24, pt was seen at [facility] ER on 07/30/24 due to not being able to urinate, had Lyn placed. Pt called our office on 07/30/24 to notify us of only dribbling small amounts, had a cysto/UD done earlier that day as well as a Lyn removed from being placed at her [facility] ER visit on 07/25/24 due to not being able to void after her urethral sling placement on 07/22/24. Bladder scan: 915 cc 07/31/24. UA not provided due to Lyn. Patient reports feeling the urge to void, feels she has more control than before. States sometimes she will void w Lyn in. Lyn will be removed IO. Today we discussed the options. The patient has been found to have urinary retention, with recommendation to start CIC (clean intermittent catheterization) to intermittently empty the urinary bladder. We taught the technique, with instruction to measure the residual urine by straight catheterizing after first attempting to void. The risks of CIC were discussed, including bleeding, infection and causing UTI's (although urinary retention itself is also a risk). Questions were answered and the patient verbalized understanding. Straight catheters are provided. Prescription for catheters will be provided in the near future. Follow up next week or sooner if needed. Pt understands and agrees with plan. 2. Bladder neoplasm of uncertain malignant potential [...] is identified. No muscularis propria is present. -Pt to have Cysto in 3 months to monitor. 3. Stress incontinence (N39.3: Stress incontinence (female) (male)) BBSQ (5) Exam at cysto 06/11/24 - Bladder and rectal prolapse with severe STACIA with coughing S/P 07/22/24 retropubic (supris) mid urethral sling Leaks urine with daily activities. For example, when she is picking up granddaughter, getting out of car, sliding down slide, laughing, etc. Had urethral bulking about 8 yrs ago at another facility. This worked great until the past 6-12 mos. 4. Urethra (more content not included)... Normal [facility] Comment on above: Result Comment: Elec tronically Signed By: HAMILTON MALONE MD\.br\Date and Time Signed: 08/06/24 10:45 EST\.br\Electronically Co-Signed By: Gamaliel Moody\.br\Date and Time Co-Signed: 08/06/24 10:09 EST\.br\Electronically Co-Signed By: Gamaliel Moody\.br\Date and Time Co-Signed: 08/06/24 10:11 EST Ambulatory Visit Summaryon 1 09-30-2023 Ambulatory Visit Summary Ambulatory Visi t Summary RAIN SWEENEY :1960 Visit Date:07/30/2024 Ambulatory Visit Instructions Your Diagnosis Bladder neoplasm of uncertain malignant potential Stress incontinence Urethral caruncle Atrophic vaginitis Cystocele with rectocele Urinary retention Your Care Team Attending Physician - HAMILTON MALONE MD Primary Care Physician - SEB BARRY MD This Is Your Medications List Contact prescribing physician if questions or concerns docusate (Colace 100 mg Cap) lithium (lithium 300 mg oral tablet) omeprazole (omeprazole 20 mg Cap-DR) oxcarbazepine (oxcarbazepine 300 mg Tab) tretinoin topical (tretinoin Top 0.1% Crm) venlafaxine Procedures Performed Cystoscopy (07/22/2024), Cystoscopy (06/24/2024), History of augmentation of breast, History of bilateral breast implants, History of nasal sinus surgery, Stapedectomy, Tubal ligation. Discharge Vitals Heart Rate (Peripheral) 105 Respiratory Rate 16 Blood Pressure 143/93 Height 170.2 cm Height 67 in Weight 89.2 kg Weight 196.652 lb BMI 30.79 What to do next Scheduled Follow-Up Appointments 2024 8:00 AM EST With: HAMILTON MALONE MD [facility] [address] [address] [place] [address]- Medications What How Much When Instructions Unchanged docusate (Colace 100 mg Cap) 1 Capsules By Mouth 2 times a day Contact prescribing physician if questions or concerns Unchanged lithium (lithium 300 mg oral tablet) 1 Tablets By Mouth At bedtime Contact prescribing physician if questions or concerns Unchanged omeprazole (omeprazole 20 mg Cap-DR) 1 Capsules By Mouth Every day Contact prescribing physician if questions or concerns Unchanged oxcarbazepine (oxcarbazepine 300 mg Tab) 1 Tablets By Mouth 2 times a day Take one tablet in morning and Two tablets at night Contact prescribing physician if questions or concerns Unchanged tretinoin topical (tretinoin Top 0.1% Crm) 1 Application Topical Once a day (at bedtime) Contact prescribing physician if questions or concerns Unchanged venlafaxine 225 Milligram By Mouth Every day as directed Contact prescribing physician if questions or concerns Medications and Immunizations Administered Given lidocaine Top 2% Gel w/Appl 6 mL, 6 mL, Topical. For: Urinary retention Allergies penicillin (Hives) Problems Ongoing - Any [...] choosing us for your care. Education Materials Acute Urinary Retention, Female Acute urinary retention is a condition in which a person is unable to pass urine or can only pass a little urine. This condition can happen suddenly and last for a short time. If left untreated, it can become long-term (chronic) and result in kidney damage or other serious complications. What are the causes? This condition may be caused by: ??? Obstruction or narrowing of the tube that drains the bladder (urethra). This may be caused by surgery, problems with nearby organs, or injury to the bladder or urethra. ??? Problems with the nerves in the bladder. ??? Pelvic organ prolapse. ??? Tumors in the area of the pelvis, bladder, or urethra. ??? Vaginal childbirth. ??? Bladder or urinary tract infection. ??? Constipation. ??? Certain medicines. What increases the risk? This condition is more likely to develop in women over age 50. Other chronic health conditions can increase the risk of acute urinary retention. These include: ??? Diseases such as multiple sclerosis. ??? Spinal cord injuries. ??? Diabetes. ??? Degenerative cognitive conditions, such as delirium or dementia. ??? Psychological conditions. A woman may hold her urine due to trauma or because she does not want to use the bathroom. ??? History of preexisting urinary retention. ??? History of prior pelvic surgery, incontinence surgery, or radical pelvic surgery. What are the signs or symptoms? Symptoms of this condition include: ??? Trouble urinating. ??? Pain in the lower abdomen. How is this (more content not included)... Normal [facility] Urology Office/Clinic Noteon 07-30-2024 Urology Office/Clinic Note Urology Office/Clinic Note Chief Complaint [facility] urinary retention HPI Staff 64 year old female patient here for a [facility] ER follow up (transferred from [facility]) for urinary retention. Consult done 07/25/24. Pt has lyn. Previous Dx: stress incontinence, bladder neoplasm of uncertain malignant, atrophic vaginitis, urethral caruncle and cystocele with rectocele Start estrogen cream, apply pea-sized amount 2-3 times per week. S/P cysto 06/11/24, 07/22/24 retropubic (supris) mid urethral sling Denies hematuria, denies dysuria, denies abdominal pain/flank pain. History of Present Illness Tests reviewed: External records I have reviewed the previous health record information and history for this patient from Dr. Hamilton Malone. I have reviewed and verified the staff [...] HPI. Physical Exam Vitals & Measurements HR: 105(Peripheral) RR: 16 BP: 143/93 HT: 67 in HT: 170.2 cm WT: 89.2 kg WT: 196.652 lb BMI: 30.79 General Appearance: alert, no distress, well nourished, well developed female. Procedure Operative Information Anesthesia Type: Local Procedure: Local Cystoscopy with Urethral Dilation Complications: None Surgical risks, benefits, details of the procedure have been explained to the patient. Full informed consent has been obtained. Intraoperative Information Prepped: Patient is brought back to the endoscopy suite. Patient is placed in supine/frog leg position. Patient prepped in the usual fashion with Betadine solution. 2% Xylocaine Jelly is placed per Urethra. After waiting several minutes, the Cystoscope is introduced. The Urethra is: TightNo erosion of the sling The Bladder: cath cystitis on the posterior lt wall , No tumors no stones, Trabeculated: None (0) The Ureteral orifices: Show efflux of clear urine The Urethra was dilated to: 26 [place]ian with sounds. Removal: Cystoscope is removed. The patient tolerated it well. Postoperative Information Patient is discharged home with antibiotic coverage. Follow up arranged. Assessment/Plan 1. Bladder neoplasm of uncertain malignant potential [...] is identified. No muscularis propria is present. -Pt to have Cysto in 3 months to monitor. 2. Stress incontinence (N39.3: Stress incontinence (female) [...] worked great until the past 6-12 mos. S/P 07/22/24 retropubic (supris) mid urethral sling Was not seen on today's exam during IO Cysto. See procedure documentation. 3. 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 Started on Estrace cream at that time. 4. Atrophic vaginitis (N95.2: Postmenopausal atrophic vaginitis) Pt is currently using Estrace Cream, pt is to cont, and call for refills. 5. Cystocele with rectocele (N81.10: Cystocele, unspecified) Exam at cysto 06/11/24 - Bladder and rectal prolapse with severe STACIA with coughing Discussed rectocele repair. Counseled pt on possible risks which include anesthesia, wound infection, bleeding, blood clots, chest infection, UTI, allergic reactions, recurrence of prolapse, among others. Discussed the recovery. 6. Urinary retention (R33.9: Retention of urine, unspecified) [facility] ER follow up (transferred from [facility]) for urinary re (more content not included)... Normal [facility] Comment on above: Result Comment: Elec tronically Signed By: HAMILTON MALONE MD\.br\Date and Time Signed: 07/30/24 10:54 EST\.br\Electronically Co-Signed By: Gamaliel Moody\.br\Date and Time Co-Signed: 07/30/24 10:50 EST General Message Officeon General Message Office General Message Office --- --- --- --- --- --- --- --- --- From: Edmond Soler To: RAIN SWEENEY Sent: 07/28/24 02:31:01 AM EST Subject: Discharge Summary Ready to View A summary regarding your recent visit is available in the Documents section of your health record. Normal [facility] Inpatient Patient Summaryon 07-27-2024 Inpatient Patient Summary Inpatient Patient Summary RAIN SWEENEY :1960 Visit Date:07/25/2024 Inpatient Discharge Instructions Your Care Team Admitting Physician - Aditya MARIA DO Consulting Physician - Shad RAMIREZ, Brandon Silva Reason for Your Visit SEPSIS, CELLULITIS Your [...] days Comments: Call for followup appointment Where: [address] [place] [address] [phone] Business (1) Follow Up with SEB BARRY When: Within 5 to 7 days Comments: Call for followup appointment Where: [address] [place] [address]- Business (1) Medications What How Much When Instructions Next Dose Changed docusate (Colace 100 mg Cap) 1 Capsules By Mouth 2 times a day 07/27 am, pm Unchanged lithium (lithium 300 mg oral tablet) 1 Tablets By Mouth At bedtime 07/27 pm Unchanged omeprazole (omeprazole 20 mg Cap-DR) 1 Capsules By Mouth Every day 07/27 Unchanged oxcarbazepine (oxcarbazepine 300 mg Tab) 1 Tablets By Mouth 2 times a day Take one tablet in morning and Two tablets at night 07/27 am, pm Unchanged tretinoin topical (tretinoin Top [...] and you (more content not included)... Normal [facility] BMPon 07-26-2024 Anion gap [Moles/Vol] 8 mmol/L Normal -16 [facility] Comment on above: Performed By: #### 2 [id number] #### [facility] [address] [place] [address] Calcium [Mass/Vol] 8.4 mg/dL Low 8.9-11.1 [facility] Comment on above: Performed By: #### 2 [id number] #### [facility] [address] [place] [address] Chloride [Moles/Vol] 113 mmol/L High 101-111 [facility] Comment on above: Performed By: #### 2 [id number] #### [facility] [address] [place] [address] CO2 [Moles/Vol] 25 mmol/L Normal 21-31 [facility] Comment on above: Performed By: #### 2 [id number] #### [facility] [address] [place] [address] Creatinine [Mass/Vol] 0.9 mg/dL Normal 0.5-1.3 [facility] Comment on above: Performed By: #### 2 [id number] #### [facility] [address] [place] [address] Glucose [Mass/Vol] 96 mg/dL Normal 55-199 [facility] Comment on above: Performed By: #### 2 [id number] #### [facility] [address] [place] [address] Potassium [Moles/Vol] 4.5 mmol/L Normal 3.5-5.3 [facility] Comment on above: Performed By: #### 2 [id number] #### [facility] [address] [place] [address] Sodium [Moles/Vol] 141 mmol/L Normal 135-145 [facility] Comment on above: Performed By: #### 2 [id number] #### [facility] [address] [place] [address] Urea nitrogen [Mass/Vol] 12 mg/dL Normal 5-21 [facility] Comment on above: Performed By: #### 2 [id number] #### [facility] [address] [place] [address] Urea nitrogen/Creatinine [Mass ratio] 13 No Units Normal 10-20 [facility] Comment on above: Performed By: #### 2 [id number] #### [facility] [address] [place] [address] CBC w/ Auto Diffon 4 Basophils/100 WBC (Bld) 0.8 % Normal 0.0-2.0 [facility] Comment on above: Performed By: #### 2 [id number] #### [facility] [address] [place] [address] Basophils/Leukocytes Auto (Bld) [Pure # fraction] 0.1 E9/L Normal 0.0-0.2 [facility] Comment on above: Performed By: #### 2 [id number] #### [facility] [address] [place] [address] Eosinophils (Bld) [#/Vol] 0.3 E9/L Normal 0.0-0.5 [facility] Comment on above: Performed By: #### 2 [id number] #### [facility] [address] [place] [address] Eosinophils/100 WBC (Bld) 4.4 % Normal 0.0-8.0 [facility] Comment on above: Performed By: #### 2 [id number] #### [facility] [address] [place] [address] Erythrocyte distribution width (RBC) [Ratio] 15.7 % High 10.9-14.2 [facility] Comment on above: Performed By: #### 2 [id number] #### [facility] [address] [place] [address] Hematocrit (Bld) [Volume fraction] 32.4 % Low 34.0-46.0 [facility] Comment on above: Performed By: #### 2 [id number] #### [facility] [address] [place] [address] Hemoglobin (Bld) [Mass/Vol] 10.8 g/dL Low 12.0-16.0 [facility] Comment on above: Performed By: #### 2 [id number] #### [facility] [address] [place] [address] Lymphocytes (Bld) [#/Vol] 2.6 E9/L Normal 1.0-4.0 [facility] Comment on above: Performed By: #### 2 [id number] #### [facility] [address] [place] [address] Lymphocytes/100 WBC (Bld) 32.8 % Normal 14.0-50.0 [facility] Comment on above: Performed By: #### 2 [id number] #### [facility] [address] [place] [address] MCH (RBC) [Entitic mass] 30.2 pg Normal 27.0-34.0 [facility] Comment on above: Performed By: #### 2 [id number] #### [facility] [address] [place] [address] MCHC (RBC) [Mass/Vol] 33.4 g/dL Normal 31.4-36.0 [facility] Comment on above: Performed By: #### 2 [id number] #### [facility] [address] [place] [address] MCV (RBC) [Entitic vol] 90.4 fL Normal 80.0-100.0 [facility] Comment on above: Performed By: #### 2 [id number] #### [facility] [address] [place] [address] Monocytes (Bld) [#/Vol] 0.8 E9/L Normal 0.2-1.0 [facility] Comment on above: Performed By: #### 2 [id number] #### [facility] [address] [place] [address] Neutrophils (Bld) [#/Vol] 4.1 E9/L Normal 2.0-7.5 [facility] Comment on above: Performed By: #### 2 [id number] #### [facility] [address] [place] [address] Neutrophils/100 WBC (Bld) 52.1 % Normal 36.0-75.0 [facility] Comment on above: Performed By: #### 2 [id number] #### [facility] [address] [place] [address] Platelet 224.0 E9/L Normal 150.0-500.0 [facility] Comment on above: Performed By: #### 2 [id number] #### [facility] [address] [place] [address] Platelet mean volume (Bld) [Entitic vol] 8.1 fL Normal 6.4-10.8 [facility] Comment on above: Performed By: #### 2 [id number] #### [facility] [address] [place] [address] RBC (Bld) [#/Vol] 3.6 E12/L Low 4.3-5.9 [facility] Comment on above: Performed By: #### 2 [id number] #### [facility] [address] [place] [address] WBC corrected for nucl RBC Auto (Bld) [#/Vol] 7.9 E9/L Normal 4.0-11.0 [facility] Comment on above: Performed By: #### 2 [id number] #### [facility] [address] [place] [address] CHEMISTRYOrdered By: SYSTEM SYSTEM on 07-26-2024 Anion [...] 07-26-2024 Inpatient Clinical Summary Inpatient Clinical Summary [address] [address] Clinical Summary Person Information: Name: RAIN SWEENEY Age: 64 Years : 1960 Sex: Female PCP: SEB BARRY MD Marital Status: Single Race: White Ethnicity: Non- or Language: Wolof Visit Id: Visit Reason: SEPSIS, CELLULITIS Speciality: Acuity: Enc Type: Inpatient Med Service: Medical Arrival: 07/25/2024 00:41:33 Discharge: Dispo Type: Address: [address] [place] [id number] Provider Notes: Diagnosis: 1:Abdominal pain; 2:Acute kidney [...] Physician: Follow up: With: Address: When: HAMILTON MALONE [address] [place] [phone] Business (1) Within 5 to 7 days Comments: Call for followup appointment With: Address: When: SEB BARRY [address] [place], [place] [id number] Business (1) Within 5 to 7 days Comments: Call for followup appointment Patient Education Information: Normal [facility] Inpatient Patient Summaryon 07-26-2024 Inpatient Patient Summary Inpatient Patient Summary [address] [address] Patient Discharge Instructions PERSON INFORMATION Name: RAIN SWEENEY Date of : 1960 Current Date: 07/26/2024 09:39:40 PHYSICIANS Admitting Physician: Aditya MARIA DO Primary Care Physician: SEB BARRY MD PCP Comment: Discharge Diagnosis: 1:Abdominal pain; 2:Acute kidney injury; 3:Acute urinary retention; 4:Constipation; 6:Obese; 7:Cystocele with rectocele; 8:Gastroesophageal reflux disease; 9:Bipolar illness; 10:On deep vein thrombosis (DVT) prophylaxis; Rectocele Condition at Discharge: RAIN Hall has been given the following list of [...] None Follow up: With: Address: When: HAMILTON MALONE [address] [place] [phone] [facility] () Within 5 to 7 days Comments: Call for followup appointment With: Address: When: SEB BARRY [address] [place] [phone] [facility] () Within 5 to 7 days Comments: Call [...] to serve you. Thank you for choosing [facility] Normal [facility] Interdisciplinary Note - Javi e Manageron 07-26-2024 Interdisciplinary Note - Production Sanitizer Interdisciplinary Note - Production Sanitizer SW spoke with patient in room. No family in room. Patient is alert and oriented and participates in discharge planning. Patient is , lives alone. There was a consult for domestic concerns. She states she feels safe and has no domestic concerns. She reports that her neighbor Damaso is very helpful. She has a good support system and lutheran family. Her son and daughter live in [place]. Dr. Waldrop is following, see notes, saw patient earlier today. Patient was admitted on 07/25/24. Has a consult with Urology. Patient verified PCP, insurance and DME. Patient denied any needs at d/c and is anxious to return home. This patient will have neighbor transport home. Patient white board updated, and SW contact information provided. Normal [facility] Comment on above: Result Comment: Elec tronically Signed By: Paulette Duarte\.br\Date and Time Signed: 07/26/24 09:41 EST eGFRon 07-26-2024 eGFR 72 mL/min/1.73 m2 Normal >=59 [facility] Comment on above: Performed By: #### 1 [id number] ####[facility] [id number] [place] [address] CBC w/ Auto Diffon 4 Basophils/100 WBC (Bld) 0.5 % Normal 0.0-2.0 [facility] Comment on above: Performed By: #### 2 [id number] #### [facility] [address] [place] [address] Basophils/Leukocytes Auto (Bld) [Pure # fraction] 0.0 E9/L Normal 0.0-0.2 [facility] Comment on above: Performed By: #### 2 [id number] #### [facility] [address] [place] [address] Eosinophils (Bld) [#/Vol] 0.1 E9/L Normal 0.0-0.5 [facility] Comment on above: Performed By: #### 2 023582 #### [facility] [address] [place] [address] Eosinophils/100 WBC (Bld) 0.5 % Normal 0.0-8.0 [facility] Comment on above: Performed By: #### 2 [id number] #### [facility] [address] [place] [address] Erythrocyte distribution width (RBC) [Ratio] 15.3 % High 10.9-14.2 [facility] Comment on above: Performed By: #### 2 [id number] #### [facility] [address] [place] [address] Hematocrit (Bld) [Volume fraction] 35.8 % Normal 34.0-46.0 [facility] Comment on above: Performed By: #### 2 [id number] #### [facility] [address] [place] [address] Hemoglobin (Bld) [Mass/Vol] 11.9 g/dL Low 12.0-16.0 [facility] Comment on above: Performed By: #### 2 402133 #### [facility] [address] [place] [address] Lymphocytes (Bld) [#/Vol] 1.1 E9/L Normal 1.0-4.0 [facility] Comment on above: Performed By: #### 2 [id number] #### [facility] [address] [place] [address] Lymphocytes/100 WBC (Bld) 11.3 % Low 14.0-50.0 [facility] Comment on above: Performed By: #### 2 115101 #### [facility] [address] [place] [address] MCH (RBC) [Entitic mass] 29.9 pg Normal 27.0-34.0 [facility] Comment on above: Performed By: #### 2 [id number] #### [facility] [address] [place] [address] MCHC (RBC) [Mass/Vol] 33.4 g/dL Normal 31.4-36.0 [facility] Comment on above: Performed By: #### 2 534212 #### [facility] [address] [place] [address] MCV (RBC) [Entitic vol] 89.4 fL Normal 80.0-100.0 [facility] Comment on above: Performed By: #### 2 167297 #### [facility] [address] [place] [address] Monocytes (Bld) [#/Vol] 0.9 E9/L Normal 0.2-1.0 [facility] Comment on above: Performed By: #### 2 [id number] #### [facility] [address] [place] [address] Neutrophils (Bld) [#/Vol] 7.9 E9/L High 2.0-7.5 [facility] Comment on above: Performed By: #### 2 812234 #### [facility] [address] [place] [address] Neutrophils/100 WBC (Bld) 78.3 % High 36.0-75.0 [facility] Comment on above: Performed By: #### 2 166342 #### [facility] [address] [place] [address] Platelet 252.0 E9/L Normal 150.0-500.0 [facility] Comment on above: Performed By: #### 2 403204 #### [facility] [address] [place] [address] Platelet mean volume (Bld) [Entitic vol] 8.1 fL Normal 6.4-10.8 [facility] Comment on above: Performed By: #### 2 822708 #### [facility] [address] [place] [address] RBC (Bld) [#/Vol] 4.0 E12/L Low 4.3-5.9 [facility] Comment on above: Performed By: #### 2 391572 #### [facility] [address] [place] [address] WBC corrected for nucl RBC Auto (Bld) [#/Vol] 10.1 E9/L Normal 4.0-11.0 [facility] Comment on above: Performed By: #### 2 835872 #### [facility] [address] [place] [address] CHEMISTRYOrdered By: Elisabeth Hoffman on 07-25-2024 Albumin [...] 07-25-2024 Albumin [Mass/Vol] 3.5 g/dL Normal 3.3-5.0 [facility] Comment on above: Performed By: #### 2 [id number] #### [facility] [address] [place] [address] Albumin/Globulin (S) [Mass conc ratio] 1.3 Normal 1.1-2.2 [facility] Comment on above: Performed By: #### 2 963485 #### [facility] [address] [place] [address] ALP [Catalytic activity/Vol] 78 Int._Unit/L Normal 21-98 [facility] Comment on above: Performed By: #### 2 [id number] #### [facility] [address] [place] [address] ALT No additional P-5'-P [Catalytic activity/Vol] 9 Int._Unit/L Normal 6-46 [facility] Comment on above: Performed By: #### 2 [id number] #### [facility] [address] [place] [address] Anion gap [Moles/Vol] 8 mmol/L Normal 6-16 [facility] Comment on above: Performed By: #### 2 140564 #### [facility] [address] [place] [address] AST [Catalytic activity/Vol] 14 Int._Unit/L Normal 5-43 [facility] Comment on above: Performed By: #### 2 [id number] #### [facility] [address] [place] [address] Bilirubin [Mass/Vol] 0.6 mg/dL Normal 0.0-1.1 [facility] Comment on above: Performed By: #### 2 753083 #### [facility] [address] [place] [address] Calcium [Mass/Vol] 8.4 mg/dL Low 8.9-11.1 [facility] Comment on above: Performed By: #### 2 [id number] #### [facility] [address] [place] [address] Chloride [Moles/Vol] 110 mmol/L Normal 101-111 [facility] Comment on above: Performed By: #### 2 [id number] #### [facility] [address] [place] [address] CO2 [Moles/Vol] 24 mmol/L Normal 21-31 [facility] Comment on above: Performed By: #### 2 110754 #### [facility] [address] [place] [address] Creatinine [Mass/Vol] 1.8 mg/dL High 0.5-1.3 [facility] Comment on above: Performed By: #### 2 667774 #### [facility] [address] [place] [address] Globulin (S) [Mass/Vol] 2.8 g/dL Normal 1.4-4.0 [facility] Comment on above: Performed By: #### 2 884614 #### [facility] [address] [place] [address] Glucose [Mass/Vol] 120 mg/dL Normal 55-199 [facility] Comment on above: Performed By: #### 2 [id number] #### [facility] [address] [place] [address] Potassium [Moles/Vol] 5.0 mmol/L Normal 3.5-5.3 [facility] Comment on above: Performed By: #### 2 [id number] #### [facility] [address] [place] [address] Protein [Mass/Vol] 6.3 g/dL Normal 6.0-7.8 [facility] Comment on above: Performed By: #### 2 [id number] #### [facility] [address] [place] [address] Sodium [Moles/Vol] 137 mmol/L Normal 135-145 [facility] Comment on above: Performed By: #### 2 [id number] #### [facility] [address] [place] [address] Urea nitrogen [Mass/Vol] 23 mg/dL High 5-21 [facility] Comment on above: Performed By: #### 2 [id number] #### [facility] [address] [place] [address] Urea nitrogen/Creatinine [Mass ratio] 13 No Units Normal 10-20 [facility] Comment on above: Performed By: #### 2 [id number] #### [facility] [address] [place] [address] HEMATOLOGYOrdered By: SYSTEM SYSTEM on 07-25-2024 Basophils/100 [...] Normal 4.0 - 11.0 E9/L [facility] - Chemistry and C hemistry - challengeon 07-25-2024 Lactate [Moles/Vol] 1.1 mmol/L 0.4-2.0 [facility] Lactic Acidon 07-25-2024 Lactic Acid Lvl 0.8 mmol/L Normal 0.5-2.2 [facility] Comment on above: Performed By: #### 2 [id number] #### [facility] [address] [place] [address] [place] Riccardo 07-25-2024 [place] Lvl .3 mmol/L Low 1.0-1.2 [facility] Comment on above: Result Comment: 12 h our post dose concentration: 1.0-1.2 mmol/L Minimum effective concentration: 0.6 mmol/L Values >1.5 mmol/L 12 hours after dose indicates a significant risk of intoxication. Performed By: #### 4 [id number] #### [facility] [address] [place] [address] Reference Laboratory Testing Ordered By: SYSTEM SYSTEM on 07-25-2024 [place] Lvl 0.3 mmol/L Low 1.0 - 1.2 mmol/L [facility] Comment on above: Interpretive Data: 1 2 hour post dose concentration: 1.0-1.2 mmol/L Minimum effective concentration: 0.6 mmol/L Values >1.5 mmol/L 12 hours after dose indicates a significant risk of intoxication. UA with Cult [employer] 07-25-20 24 Bacteria Auto Ql (U) Trace Normal Trace Fish er [facility] Comment on above: Performed By: #### 4 [id number] #### [facility] [address] [place] [address] Bilirubin Ql (U) Negative Normal Negative [facility] Comment on above: Performed By: #### 4 [id number] #### [facility] [address] [place] [address] Clarity (U) Clear Normal Clear [facility] Comment on above: Performed By: #### 4 [id number] #### [facility] [address] [place] [address] Color (U) Colorless Abnormal Yellow [facility] Comment on above: Result Comment: Micr oscopic readings are only performed on those samples that meet specific criteria set forth by [facility]. Performed By: #### 4 [id number] #### [facility] [address] [place] [address] Epithelial cells.squamous Auto (Urine sed) [#/Area] 0-2 Invalid Interpretation Code [facility] Comment on above: Performed By: #### 4 [id number] #### [facility] [address] [place] [address] Glucose Ql (U) Negative Normal Negative [facility] Comment on above: Performed By: #### 4 [id number] #### [facility] [address] [place] [address] Hemoglobin Auto test strip (U) [Mass/Vol] 2+ mg/dL Abnormal Negative [facility] Comment on above: Performed By: #### 4 [id number] #### [facility] [address] [place] [address] Ketones Auto test strip Ql (U) Trace Abnormal Negative [facility] Comment on above: Performed By: #### 4 [id number] #### [facility] [address] [place] [address] Leukocyte esterase Auto test strip Ql (U) Negative Normal Negative [facility] Comment on above: Performed By: #### 4 [id number] #### [facility] [address] [place] [address] Mucus Auto Ql (U) Negative Normal Negative [facility] Comment on above: Performed By: #### 4 [id number] #### [facility] [address] [place] [address] Nitrite Auto test strip Ql (U) Negative Normal Negative [facility] Comment on above: Performed By: #### 4 [id number] #### [facility] [address] [place] [address] pH (U) 6.0 [pH] Invalid Interpretation Code 5.0-9.0 [facility] Comment on above: Performed By: #### 4 [id number] #### [facility] [address] [place] [address] Protein Ql (U) Negative Normal Negative [facility] Comment on above: Performed By: #### 4 [id number] #### [facility] [address] [place] [address] RBC Ql (U) 4-20 Abnormal 0-3 [facility] Comment on above: Performed By: #### 4 [id number] #### [facility] [address] [place] [address] Specific gravity (U) [Rel density] 1.006 Invalid Interpretation Code 1.005-1.030 [facility] Comment on above: Performed By: #### 4 [id number] #### [facility] [address] [place] [address] Urobilinogen (U) [Mass/Vol] Negative Normal Negative [facility] Comment on above: Performed By: #### 4 [id number] #### [facility] [address] [place] [address] WBC Auto (Urine sed) [#/Area] 0-5 Normal 0-5 [facility] Comment on above: Performed By: #### 4 [id number] #### [facility] [address] [place] [address] Type of Urine collection method Clean Catch Normal [facility] Comment on above: Performed By: #### 4 [id number] #### [facility] [address] [place] [address] URINALYSISOrdered By: SYSTEM SYSTEM on 07-25-2024 Bacteria [...] that meet specific criteria set forth by [facility]. Epithelial cells.squamous Auto (Urine sed) [#/Area] [...] AM) Invalid Interpretation Code 5.0 - 9.0 [facility] UA Auto SS Protein Ql (U) Negative Normal Negativemg/d L [facility] UA Auto SS RBC Ql (U) 4-20 graded/HPF Invalid Interpretation Code 0-3graded/HP F [facility] UA Auto SS Specific gravity (U) [Rel density] 1.006 *NA* (07/25/24 10:15 AM) Invalid Interpretation Code 1.005 - 1.030 [facility] UA Auto SS Urobilinogen (U) [Mass/Vol] Negative Normal Negativemg/d L [facility] UA Auto SS WBC Auto (Urine sed) [#/Area] 0-5 graded/HPF Normal 0-5graded/HP F [facility] UA Auto SS URINALYSISOrdered By: Emmanuel MARIA on 07-25-2024 UA Spec Desc Clean Catch (07/25/24 10:15 AM) Normal [facility] UA Auto SS Work Phone: eGFRon 07-25-2024 eGFR 31 mL/min/1.73 m2 Low >=59 [facility] Comment on above: Performed By: #### 1 [id number] #### [facility] [address] [place] [address] Basophils Auto (Bld) [#/Vol] on 07-24-2024 Basophils (Bld) [#/Vol] Automated basoph il count 0.0-0.1 [facility] Basophils/100 WBC Auto (Bld) on 07-24-2024 Basophils/100 WBC (Bld) Automated basophil % 0. 2-2.0 [facility] Eosinophils/100 WBC Auto (Bl d)on 07-24-2024 Eosinophils/100 WBC (Bld) Automated eosinophil % Low 0.9-7.0 [facility] Erythrocyte distribution wid th Auto (RBC) [Ratio]on 07-24-2024 Erythrocyte distribution width (RBC) [Ratio] Erythrocyte distribution width [Ratio] by Automated count 11.0-15.0 [facility] Estimated glomerular filtrat ion rate (GFR) non- Americanon 07-24-2024 GFR/1.73 sq M.predicted among non-blacks MDRD (S/P/Bld) [Vol rate/Area] Estimated glomerular filtration rate (GFR) non- Low >=60 mL/min/1.73m 2 [facility] Hematocrit Auto (Bld) [Volum e fraction]on 07-24-2024 Hematocrit (Bld) [Volume fraction] Hematocrit [Volume Fraction] of Blood by Automated count 36.0-48.0 [facility] Hemoglobin [Mass/volume] in Bloodon 07-24-2024 Hemoglobin (Bld) [Mass/Vol] Hemoglobin [Mass/volume] in Blood 12.0-16.0 [facility] - Chemistry and C hemistry - challengeon 07-24-2024 Bilirubin Ql (U) Negative NEGATIVE [facility] Glucose (U) [Mass/Vol] Negative [facility] Ketones Ql (U) Negative NEGATIVE [facility] pH (U) 6.0 [pH] 5.0-9.0 [facility] Specific gravity (U) [Rel density] 1.010 1.005-1.025 [facility] Urobilinogen Qn (U) 0.2 {Rachell'U}/dL 0.2-1.0 [facility] Calcium [Mass/Vol] 8.8 mg/dL 8.5-10.1 [facility] Chloride [Moles/Vol] 96 mmol/L Low 98-107 [facility] CO2 [Moles/Vol] 21.6 mmol/L 21.0-32.0 [facility] Creatinine [Mass/Vol] 4.00 mg/dL High 0.55-1.02 [facility] GFR/1.73 sq M.predicted MDRD (S/P/Bld) [Vol rate/Area] 14 mL/min/{1.73_m2} Low >=60 mL/min/1.73m 2 [facility] Glucose [Mass/Vol] 158 mg/dL High 74-106 [facility] Lactate [Moles/Vol] 2.2 mmol/L Critically high 0.4-2.0 [facility] Comment on above: RESULTS CALLED TO ER Teresita Banda RN @BY Jerel Mckeon MLT at 1909 Potassium [Moles/Vol] 4.3 mmol/L 3.5-5.1 [facility] Sodium [Moles/Vol] 131 mmol/L Low 136-145 [facility] Urea nitrogen [Mass/Vol] 36.0 mg/dL High 7.0-18.0 [facility] Urea nitrogen/Creatinine [Mass ratio] 9.0 mg/mg [facility] - Hematology and Cell countson 07-24-2024 Immature granulocytes/100 WBC (Bld) 1.8 % High 0.0-0.5 [facility] - Specimen inform ationon 07-24-2024 Appearance (U) CLEAR CLEAR [facility] Color (U) LT. YELLOW YELLOW [facility] - Urinalysison Leukocyte esterase Test strip Ql (U) TRACE Abnormal NEGATIVE [facility] Mucus Ql (Urine sed) NONE SEEN NONE SEEN [facility] Nitrite Ql (U) Negative NEGATIVE [facility] Protein Ql (U) Negative NEG/TRACE [facility] Leukocytes [#/volume] correc sheeba for nucleated erythrocytes in Blood by Automated counon 07-24-2024 WBC corrected for nucl RBC Auto (Bld) [#/Vol] Leukocytes [#/volume] corrected for nucleated erythrocytes in Blood by Automated coun High 4.0-11.0 [facility] Lymphocytes Auto (Bld) [#/Vo l]on 07-24-2024 Lymphocytes (Bld) [#/Vol] Lymphocytes [#/volume] in Blood by Automated count 1.2-3.8 [facility] Lymphocytes/100 WBC Auto (Bl d)on 07-24-2024 Lymphocytes/100 WBC (Bld) Lymphocytes/100 leukocytes in Blood by Automated count Low 20.5-60.0 [facility] MCH Auto (RBC) [Entitic mass ]on 07-24-2024 MCH (RBC) [Entitic mass] MCH [Entitic ma ss] by Automated count 26.7-34.0 [facility] MCHC Auto (RBC) [Mass/Vol]on 07-24-2024 MCHC (RBC) [Mass/Vol] MCHC [Mass/volume] by Automated count 29.9-35.2 [facility] MCV Auto (RBC) [Entitic vol] on 07-24-2024 MCV (RBC) [Entitic vol] MCV [Entitic vol ume] by Automated count 81.0-99.0 [facility] Monocytes Auto (Bld) [#/Vol] on 07-24-2024 Monocytes (Bld) [#/Vol] Automated blood monocyte count High 0.3-0.8 [facility] Monocytes/100 WBC Auto (Bld) on 07-24-2024 Monocytes/100 WBC (Bld) Automated monocyte % 1. 7-12.0 [facility] Neutrophils Auto (Bld) [#/Vo l]on 07-24-2024 Neutrophils (Bld) [#/Vol] Neutrophils [#/volume] in Blood by Automated count High 1.4-6.5 [facility] Neutrophils/100 WBC Auto (Bl d)on 07-24-2024 Neutrophils/100 WBC (Bld) Automated neutrophil % High 43.0-75.0 [facility] No Panel Informationon 07-24 Urine Bacteria TRACE #/HPF Abnormal NONE SEEN [facility] Urine Culture Reflexed NO [facility] Urine Microscopic Review YES [facility] Urine Occult Blood LARGE Abnormal NEGATIVE [facility] Urine Other Casts NONE SEEN #/LPF NONE SEEN [facility] Urine Other Crystals None Seen #/HPF None Seen [facility] Urine RBC 20-50 #/HPF Abnormal 0-2 [facility] Urine Squamous Epithelial Cells RARE #/LPF NONE/RARE [facility] Urine WBC 0-2 #/HPF Abnormal NONE SEEN [facility] Eosinophils # (Auto) 0.1 10 3/uL 0.0-0.7 [facility] Immature Granulocyte # (Auto) 0.26 10 3/uL High 0.00-0.03 [facility] Platelet mean volume Auto (B ld) [Entitic vol]on 07-24-2024 Platelet mean volume (Bld) [Entitic vol] Platelet mean volume [Entitic volume] in Blood by Automated count 9.5-13.5 [facility] Platelets Auto (Bld) [#/Vol] on 07-24-2024 Platelets (Bld) [#/Vol] Platelets [#/vol ume] in Blood by Automated count 150-450 [facility] RBC Auto (Bld) [#/Vol]on RBC (Bld) [#/Vol] Erythrocytes [#/volume] in Blood by Automated count 4.20-5.40 [facility] Serum or plasma anion gap de terminationon 07-24-2024 Anion gap [Moles/Vol] Serum or plasma anion gap determination [facility] Main OR Intraoperative Recor don 07-23-2024 Main OR Intraoperative Record Main OR Intraoperative Record IntraOp Document Type FT Summary Primary Physician: HAMILTON MALONE MD Finalized Date/Time: 07/23/24 09:40:12 Pt. Name: RAIN SWEENEY /Sex: 1960 Female Med Rec #: [id number] Physician: HAMILTON MALONE MD Financial #: [id number] Pt. Type: A Room/Bed: [place] [address] Admit/Disch: 07/22/24 05:26:39 - 07/22/24 12:30:16 Institution: [...] Case Attendee Tru GUERRA, Regine MALONE MD, Yuan TERRAZAS, Scooby VILLASENOR Role Performed REFERRAL SPECIALIST Surgeon - Primary AIR CONDITIONING MECHANIC INDUSTRIAL/SA Time In 07/22/24 07:38:00 07/22/24 07:38:00 07/22/24 07:38:00 Time Out 07/22/24 09:07:00 07/22/24 09:01:00 07/22/24 09:07:00 Procedure TVT SLING(.) TVT SLING(.) TVT SLING(.) Comments DR. BALLESTEROS TELEPHONE SUPERVISOR ASSIST Last Modified By: Terri Glynn Ii, Alfons Ii F Letrondo, Alfons Ii F 07/22/24 09:12:19 07/22/24 09:12:19 07/22/24 09:12:19 Entry 4 Entry 5 Entry 6 Case Attendee Jared DE LA ROSA, Alvin Walsh Alfons Ii F Role Performed Scrub - Primary Staff - Other Ms Sql Developer - Primary Time In 07/22/24 07:38:00 07/22/24 07:38:00 07/22/24 07:38:00 Time Out 07/22/24 08:47:00 07/22/24 09:07:00 07/22/24 09:07:00 Procedure TVT SLING(.) TVT SLING(.) TVT SLING(.) Comments 2ND SCRUB Last Modified By: Terri Glynn Ii, Alfons Ii F Letrondo, Alfons Ii F 07/22/24 09:13:05 07/22/24 09:12:19 07/22/24 09:12:19 Entry 7 Case Attendee Lakisha Bolden CST Role Performed Scrub - Relief Time In 07/22/24 08:46:00 Time Out 07/22/24 09:07:00 Procedure TVT SLING(.) Comments BREAK RELIEF Last Modified By: Terri Glynn Ii 07/22/24 09:12:19 General Comments: ACE MCGOVERN STUDENT IS IN ATTENDANCE. /PINEDA OROPEZAapplication performance engineer Protocols FT Pre-Care Text: Implements protective measures [...] RAMIREZ, Yuan VILLASENOR CST, Jared Almodovar LPN, Ish Bey Amber M, Terri Glynn Ii Time Out Complete 07/22/24 [...] PROLAPSE REPAIR Primary Procedure Yes Primary Surgeon HAMILTON MALONE MD Start 07/22/24 08:00:00 Stop 07/22/24 09:02:00 Anesthesia [...] of physical (more content not included)... Normal [facility] Discharge Instructionson Discharge Instructions Discharge Instructions RAIN SWEENEY :1960 Visit Date:07/22/2024 Inpatient Discharge Instructions Your [...] Comments: 2 weeks Where: [address] [place] [address]- [phone] Business (1) Medications What How Much When Instructions Next Dose New docusate (Colace 50 mg oral capsule) 1 Capsules By Mouth 2 times a day as needed for for constipation Pickup at [facility]/pharmacy #[id number] New oxycodone (Roxicodone 5 mg Tab) 1 Tablets By Mouth Every 6 hours as needed for for pain Pickup at [facility]/pharmacy #[id number] Changed venlafaxine 225 Milligram By Mouth [...] Once a day (at bedtime) Pharmacy Information [facility]/pharmacy #[id number]: [address], [place] [phone] Test Results No qualifying data available. Allergies [...] Other SUPRAPUBIC MID-URETHRAL SLING 07/22/2024 Education Materials [place], [place] Ambrose Dorantes M.D. TVT DISCHARGE INSTRUCTIONS [...] may have given you. Surgeon???s Phone number: [phone] Surgeon???s Written Instructions: 1. During the daytime hours empty (more content not included)... Normal [facility] Comment on above: Result Comment: Elec tronically Signed By: Stephanie Pressley RN\.br\Date and Time Signed: 07/22/24 09:47 EST Inpatient Patient Summaryon 07-22-2024 Inpatient Patient Summary Inpatient Patient Summary [address] [address] [facility] Clinical Discharge Instructions PERSON INFORMATION Name: RAIN SWEENEY PHYSICIANS Admitting Physician: HAMILTON MALONE MD Attending Physician: HAMILTON MALONE MD PCP: SEB BARRY MD Diagnosis: Comment: PATIENT EDUCATION INFORMATION Instructions: Cook - TVT Discharge Instructions(CUSTOM) ; Post Op Patient Instructions - FT (CUSTOM) Medication Leaflets: Follow up: With: Address: When: HAMILTON MALONE [address] [place] [phone] Business (1) Comments: 2 weeks MEDICATION LIST New Medications [id number], [address], [place] [phone], [phone] docusate (Colace 50 mg oral capsule) 1 [...] once a day (at bedtime). Comment: Normal [facility] Main OR PACU I Recordon 07-11 Main OR PACU I Record Main OR PACU I Record PACU Phase I Document Type FT Summary Primary Physician: HAMILTON MALONE MD Finalized Date/Time: 07/22/24 11:31:23 Pt. Name: RAIN SWEENEY Hiwot/Sex: 1960 Female Med Rec #: [id number] Physician: HAMILTON MALONE MD Financial #: [id number] Pt. Type: A Room/Bed: [place] [address] Admit/Disch: 07/22/24 05:26:39 - Institution: Case Times [...] Signed By: Teresita Chapman RN 07/22/24 11:31 Normal [facility] Main OR PACU II Recordon Main OR PACU II Record Main OR PACU II Record PACU Phase II Document Type FT Summary Primary Physician: HAMILTON MALONE MD Finalized Date/Time: 07/22/24 12:32:48 Pt. Name: RAIN SWEENEY/Sex: 1960 Female Med Rec #: [id number] Physician: HAMILTON MALONE MD Financial #: [id number] Pt. Type: A Room/Bed: [place] [address] Admit/Disch: 07/22/24 05:26:39 - Institution: Case Times [...] Signed By: Val Scales 07/22/24 12:32 Normal [facility] Main OR Preoperative Recordo n 07-22-2024 Main OR Preoperative Record Main OR Preoperative Record PreOp Document Type FT Summary Primary Physician: HAMILTON MALONE MD Finalized Date/Time: 07/22/24 08:03:39 Pt. Name: TESFAYEAMANDORAIN VANEGAS/Sex: 1960 Female Med Rec #: [id number] Physician: HAMILOTN MALONE MD Financial #: [id number] Pt. Type: A Room/Bed: [place] [address] Admit/Disch: 07/22/24 05:26:39 - Institution: Case Times [...] By: Terri Glynn Ii 07/22/24 08:03 Normal [facility] Operative Reporton 4 Operative Report Operative Report Patient: RAIN SWEENEY [...] removed in preparation for cystoscopy. The 17 Bolivian cystoscope with the 70 degree lens in [...] given a prescription for Cipro and for Hunter. The patient will follow up in the office in 2 weeks. Normal [facility] Comment on above: Result Comment: Elec tronically Signed By: GABBY RAMIREZ, HAMILTON\.marian\Date and Time Signed: 07/22/24 10:26 EST Outpatient Surgery Discharge Instructionon 07-22-2024 Outpatient Surgery Discharge Instruction Outpatient Surgery Discharge Instruction [address] [address] Patient Discharge Instructions PERSON INFORMATION Name: RAIN SWEENEY Date of : 1960 Current Date: 07/22/2024 10:28:02 PHYSICIANS Admitting Physician: GABBY RAMIREZ, HAMILTON Discharge [...] THE NEAREST EMERGENCY ROOM OR CALL 911 IPATEL LINDA JOY, have received the attached patient education materials/instructio ns and have verbalized understanding: May we do a follow up call? Yes No I was present when discharge instructions were given Patient Signature Date Clinican/Nurse Signature Date Follow up: With: Address: When: HAMILTON MALONE [address] [place] [phone] Business (1) Comments: 2 weeks Pharmacy Information: You may receive a survey from [employer] asking you to rate your care experience. Your feedback is important and will help us understand what we do well and how we can improve the quality of care we provide to you, your loved ones and our community. It???s an honor to serve you. Thank you for choosing [facility] HERE ARE THE MEDICATION CHANGES THAT OCCURRED DURING YOUR HOSPITAL STAY New Medications [id number], [address], [place] [phone], [phone] docusate (Colace 50 mg oral capsule) 1 [...] day (at bedtime). PATIENT EDUCATION INFORMATION Instructions: [facility] [place], [place] Ambrose Dorantes M.D. TVT DISCHARGE INSTRUCTIONS The [...] may have given you. Surgeon???s Phone number: [phone] Surgeon???s Written Instructions: 1. During the daytime hours empty your leg bag every 3-4 hours. 2. No lifting over 10 pounds for 6 weeks. 3. There is no restriction regarding use of stairs. 4. You may drive (more content not included)... Normal [facility] Ambulatory Visit Summaryon 1 09-04-2023 Ambulatory Visit [...] including vitamins, herbs, eye drops, creams, and [id number] medicines. ??? Any problems you or family [...] foods, such (more content not included)... Normal [facility] Reminderson 07-05-2024 Reminders Reminders - From: Dorothy Castro To: SERENA - Shanta Nkansah; Sent: 07/05/2024 10:04:30 EST Show up: 08/04/2024 10:04:00 EST Subject: Cysto Due Date/Time: 08/04/2024 10:04:00 EST Reminder Message Cysto in 3 mos. Normal [facility] Urology Office/Clinic Noteon 07-05-2024 Urology Office/Clinic Note [...] with voice recognition artificial intelligence software, specifically [employer], [employer] and or [employer]. Substitutions may have occurred due to the [...] bladder b (more content not included)... Normal [facility] Comment on above: Result Comment: Elec tronically Signed By: GABBY RAMIREZ, HAMILTON\.br\Date and Time Signed: 07/05/24 10:33 EST\.br\Electronically Co-Signed By: Dorothy Castro\.br\Date and Time Co-Signed: 07/05/24 10:14 EST Surgical Pathology Reporton 07-01-2024 Surgical Pathology Report [facility] [address] [place] [address]- Surgical Pathology Report Collected Date/Time: 06/24/2024 08:47 [...] is entirely submitted in one cassette. (DC) DC:[facility] Microscopic Description Microscopic examination performed unless gross only specified. The use of one or more reagents in the above tests is regulated as an analyte specific reagent (ASR). The test or tests are ordered following initial H&E microscopic examination. The performance characteristics were determined by the [facility] Surgical Pathology. They have not been [...] recognition technology and might contain unintended computerized shell mold bonder errors. Normal [facility] Comment on above: Performed By: #### [id number] #### [facility] Laboratory [address] [place] [address] Performed By: #### 4 [id number] ####[facility] [address] [place] [address] Main OR Intraoperative Recor don 06-25-2024 Main OR Intraoperative Record Main OR Intraoperative Record IntraOp Document Type FT Summary Primary Physician: HAMILTON MALONE MD Finalized Date/Time: 06/25/24 10:12:31 Pt. Name: RAIN SWEENEY LEYDA HaqO.B./Sex: 1960 Female Med Rec #: [id number] Physician: HAMILTON MALONE MD Financial #: [id number] Pt. Type: A Room/Bed: [place] [address] Admit/Disch: 06/24/24 06:38:13 - 06/24/24 10:15:00 Institution: [...] Cooney Role Performed Anesthesiologist Surgeon - Primary Ms Sql Developer - Primary Lactation Specialist Time In 06/24/24 08:25:00 06/24/24 08:32:00 06/24/24 08:25:00 Time Out 06/24/24 08:46:00 06/24/24 08:39:00 06/24/24 08:46:00 Procedure CYSTOSCOPY TURB(.) CYSTOSCOPY TURB(.) CYSTOSCOPY TURB(.) Comments DR. AGUILAR SUPERVISING Last Modified By: Flash RN, Amina Vidales RN, Amina Vidales RN, Amina Reyes 06/24/24 08:57:51 06/24/24 08:57:51 06/24/24 08:57:51 Entry 4 Entry 5 Entry 6 Case Attendee Flash SUNG, Gertrude Stallworth Terry T Role Performed Ms Sql Developer - Primary Scrub - Primary Staff - Other Time In 06/24/24 08:25:00 06/24/24 08:25:00 06/24/24 08:40:00 Time Out 06/24/24 08:46:00 06/24/24 08:46:00 06/24/24 08:46:00 Procedure CYSTOSCOPY TURB(.) CYSTOSCOPY TURB(.) CYSTOSCOPY TURB(.) Comments ROOM TURNOVER HELP Last Modified By: Flash RN, Amina Vidales [...] and tissue Entry 1 Skin Integrity Intact, [place], Warm, & Skin Abnormality No Dry Outcomes Met? Yes Last Modified By: Amina Vidales RN 06/24/24 08:52:26 Post-Care Text: The patient is free from signs and symptoms of injury caused by extraneous objects Patient Positioning FT Pre-Care Text: Identifies physical alterations that require additional preca (more content not included)... Normal [facility] Discharge Instructionson Discharge Instructions Discharge Instructions PATELRAIN LEYDA :1960 Visit Date:06/24/2024 Inpatient Discharge Instructions Your Care Team Admitting Physician - NKHAMILTON MIDDLETON MD Referring Physician - HAMILTON MALONE MD [...] in 2 weeks Where: [address] [place] [phone] Business (1) Medications What How Much When Instructions Next Dose New phenazopyridine (Pyridium 100 mg Tab) 1 Tablets By Mouth 3 times a day Duration: 3 Days Pickup at [facility]/pharmacy #[id number] Unchanged lithium (lithium 300 mg oral tablet) 3 Tablets By Mouth At bedtime Unchanged omeprazole (omeprazole 20 mg Cap-DR) 1 Capsules By Mouth Every day Unchanged oxcarbazepine (oxcarbazepine 300 mg Tab) 1 Tablets By Mouth Every day Unchanged tretinoin topical (tretinoin Top 0.1% Crm) 1 Application Topical Once a day (at bedtime) Unchanged venlafaxine as directed Pharmacy Information [facility]/pharmacy #[id number]: [address], [place] [phone] Education Materials Cystoscopy ??? Voiding after the [...] completing your survey. Thank you for choosing [facility]. Veto Award Nomination The VETO (Diseases Attacking [...] signed up for this yet, please contact Health Information Management at [phone] to get signed up today. Patient (more content not included)... Normal [facility] Comment on above: Result Comment: Elec tronically Signed By: Chayo SUNG, Reed Brandon\.br\Date and Time Signed: 06/24/24 08:53 EST Inpatient Patient Summaryon 06-24-2024 Inpatient Patient Summary Inpatient Patient Summary [place] [id number] [facility] Clinical Discharge Instructions PERSON INFORMATION Name: RAIN [...] (at bedtime). venlafaxine as directed. Comment: Normal [facility] Main OR PACU I Recordon 06-11 Main OR PACU I Record Main OR PACU I Record PACU Phase I Document Type FT Summary Primary Physician: HAMILTON MALONE MD Finalized Date/Time: 06/24/24 09:24:28 Pt. Name: RAIN SWEENEY D.O.B./Sex: 1960 Female Med Rec #: [id number] Physician: HAMILTON MALONE MD Financial #: [id number] Pt. Type: A Room/Bed: [facility]/ Admit/Disch: 06/24/24 06:38:13 - Institution: Case Times [...] Signed By: Carli Good RN 06/24/24 09:24 [facility] Main OR PACU II Recordon Main OR PACU II Record Main OR PACU II Record PACU Phase II Document Type FT Summary Primary Physician: HAMILTON MALONE MD Finalized Date/Time: 06/24/24 10:19:29 Pt. Name: RAIN SWEENEY /Sex: 1960 Female Med Rec #: [id number] Physician: HAMILTON MALONE MD Financial #: [id number] Pt. Type: A Room/Bed: [facility] Admit/Disch: 06/24/24 06:38:13 - Institution: Case Times [...] By: Reed Domingo RN 06/24/24 10:19 Normal [facility] Main OR Preoperative Recordo n 06-24-2024 Main OR Preoperative Record Main OR Preoperative Record PreOp Document Type FT Summary Primary Physician: HAMILTON MALONE MD Finalized Date/Time: 06/24/24 08:58:11 Pt. Name: RAIN SWEENEY /Sex: 1960 Female Med Rec #: [id number] Physician: HAMILTON MALONE MD Financial #: [id number] Pt. Type: Room/Bed: [place] [address] Admit/Disch: 06/24/24 06:38:13 - Institution: Case Times [...] By: Amina Vidales RN 06/24/24 08:58 Normal [facility] Operative Reporton Operative Report Operative Report Patient: [...] in the room agreed. A well-lubricated 22 [place]ian cystoscopic sheath with a 30 degree lens [...] in 2 weeks discuss pathology, next steps [facility] Comment on above: Result Comment: Elec tronically Signed By: GABBY RAMIREZ, HAMILTON\.marian\Date and Time Signed: 06/24/24 08:47 EST Outpatient Surgery Discharge Instructionon 06-24-2024 Outpatient Surgery Discharge Instruction Outpatient Surgery Discharge Instruction [address], [place] [address] Patient Discharge Instructions PERSON INFORMATION Name: RAIN SWEENEY Date of : 1960 Current Date: 06/24/2024 08:04:49 PHYSICIANS Admitting Physician: GABBY RAMIREZ, HAMILTON Discharge Diagnosis: RAIN SWEENEY has been given the following list of follow-up instructions, prescriptions, and patient education materials: IF UNABLE TO CONTACT YOUR PHYSICIAN AND YOU FEEL IT IS AN EMERGENCY, GO TO THE NEAREST EMERGENCY ROOM OR CALL 911 I, RAIN SWEENEY, have received the attached patient education materials/instructio [...] to serve you. Thank you for choosing [facility] HERE ARE THE MEDICATION CHANGES [...] PATIENT EDUCATION INFORMATION Instructions: Medication Leaflets: Normal [facility] XR Chest 2 Viewson XR Chest 2 [...] mGy = . DAP = . Normal [facility] BMPon 06-18-2024 Anion gap [Moles/Vol] 11 mmol/L Normal 6-16 [facility] Comment on above: Performed By: #### 2 [id number] #### [facility] Laboratory [address] [place] [address] Calcium [Mass/Vol] 8.7 mg/dL Low 8.9-11.1 [facility] Comment on above: Performed By: #### 2 [id number] #### [facility] [address] [place] [address] Chloride [Moles/Vol] 105 mmol/L Normal 101-111 [facility] Comment on above: Performed By: #### 2 [id number] #### [facility] [address] [place] [address] CO2 [Moles/Vol] 26 mmol/L Normal 21-31 [facility] Comment on above: Performed By: #### 2 [id number] #### [facility] [address] [place] [address] Creatinine [Mass/Vol] 1.0 mg/dL Normal 0.5-1.3 [facility] Comment on above: Performed By: #### 2 [id number] #### [facility] [address] [place] [address] Glucose [Mass/Vol] 89 mg/dL Normal 55-199 [facility] Comment on above: Performed By: #### 2 [id number] #### [facility] [address] [place] [address] Potassium [Moles/Vol] 4.0 mmol/L Normal 3.5-5.3 [facility] Comment on above: Performed By: #### 2 [id number] #### [facility] [address] [place] [address] Sodium [Moles/Vol] 138 mmol/L Normal 135-145 [facility] Comment on above: Performed By: #### 2 [id number] #### [facility] [address] [place] [address] Urea nitrogen [Mass/Vol] 18 mg/dL Normal 5-21 [facility] Comment on above: Performed By: #### 2 [id number] #### [facility] [address] [place] [address] Urea nitrogen/Creatinine [Mass ratio] 18 No Units Normal 10-20 [facility] Comment on above: Performed By: #### 2 [id number] #### [facility] [address] [place] [address] CBC w/ Auto Diffon 4 Basophils/100 WBC (Bld) 0.9 % Normal 0.0-2.0 [facility] Comment on above: Performed By: #### 2 [id number] #### [facility] [address] [place] [address] Basophils/Leukocytes Auto (Bld) [Pure # fraction] 0.1 E9/L Normal 0.0-0.2 [facility] Comment on above: Performed By: #### 2 [id number] #### [facility] [address] [place] [address] Eosinophils (Bld) [#/Vol] 0.3 E9/L Normal 0.0-0.5 [facility] Comment on above: Performed By: #### 2 [id number] #### [facility] [address] [place] [address] Eosinophils/100 WBC (Bld) 4.5 % Normal 0.0-8.0 [facility] Comment on above: Performed By: #### 2 [id number] #### [facility] [address] [place] [address] Erythrocyte distribution width (RBC) [Ratio] 15.1 % High 10.9-14.2 [facility] Comment on above: Performed By: #### 2 [id number] #### [facility] [address] [place] [address] Hematocrit (Bld) [Volume fraction] 46.2 % High 34.0-46.0 [facility] Comment on above: Performed By: #### 2 [id number] #### [facility] [address] [place] [address] Hemoglobin (Bld) [Mass/Vol] 15.4 g/dL Normal 12.0-16.0 [facility] Comment on above: Performed By: #### 2 [id number] #### [facility] [address] [place] [address] Lymphocytes (Bld) [#/Vol] 2.2 E9/L Normal 1.0-4.0 [facility] Comment on above: Performed By: #### 2 [id number] #### [facility] [address] [place] [address] Lymphocytes/100 WBC (Bld) 28.8 % Normal 14.0-50.0 [facility] Comment on above: Performed By: #### 2 [id number] #### [facility] [address] [place] [address] MCH (RBC) [Entitic mass] 29.8 pg Normal 27.0-34.0 [facility] Comment on above: Performed By: #### 2 [id number] #### [facility] [address] [place] [address] MCHC (RBC) [Mass/Vol] 33.2 g/dL Normal 31.4-36.0 [facility] Comment on above: Performed By: #### 2 [id number] #### [facility] [address] [place] [address] MCV (RBC) [Entitic vol] 89.5 fL Normal 80.0-100.0 F [facility] Comment on above: Performed By: #### 2 [id number] #### [facility] [address] [place] [address] Monocytes (Bld) [#/Vol] 0.7 E9/L Normal 0.2-1.0 [facility] Comment on above: Performed By: #### 2 [id number] #### [facility] [address] [place] [address] Neutrophils (Bld) [#/Vol] 4.3 E9/L Normal 2.0-7.5 [facility] Comment on above: Performed By: #### 2 [id number] #### [facility] [address] [place] [address] Neutrophils/100 WBC (Bld) 56.9 % Normal 36.0-75.0 [facility] Comment on above: Performed By: #### 2 [id number] #### [facility] [address] [place] [address] Platelet mean volume (Bld) [Entitic vol] 8.4 fL Normal 6.4-10.8 [facility] Comment on above: Performed By: #### 2 [id number] #### [facility] [address] [place] [address] Platelets (Bld) [#/Vol] 265.0 E9/L Normal 150.0-500.0 [facility] Comment on above: Performed By: #### 2 [id number] #### [facility] [address] [place] [address] RBC (Bld) [#/Vol] 5.2 E12/L Normal 4.3-5.9 [facility] Comment on above: Performed By: #### 2 [id number] #### [facility] [address] [place] [address] WBC corrected for nucl RBC Auto (Bld) [#/Vol] 7.5 E9/L Normal 4.0-11.0 [facility] Comment on above: Performed By: #### 2 [id number] #### [facility] [address] [place] [address] CHEMISTRYOrdered By: SYSTEM SYSTEM on 06-18-2024 Anion [...] - 20 Remisol Chem COAGULATIONOrdered By: Adia blake Ace on 06-18-2024 aPTT Coag (PPP) [Time] 30.9 s Normal 25.1 - 36.5 second(s) [facility] Auto Coag Comment on above: Interpretive Data: P arameter 15 days - 4 weeks 1 - 5 months 6 - 11 months 1 - 5 years 6 - 10 years 11 - 17 years PTT Mean: 35.4 (27.6-45.6) Mean: 33.5 (24.8-40.7) Mean: 32.4 (25.1-40.7) Mean: 31.6 (24.0-39.2) Mean: 31.6 (26.9-38.7) Mean: 31.0 (24.6-38.4) Pediatric Reference ranges were obtained from a study by oj Alamo prepared from 1437 samples obtained at 7 different centers using the same coagulation reagent and instrumentation as [facility]. Currently there are no coagulation studies available worldwide for children to 14 days, and no normal ranges. Heparin therapeutic range (represented by Anti-Factor Xa activity of 0.2 - 0.4 U/mL) corresponds to PTT of 56.6 - 109.0 sec. INR Coag (PPP) [Relative time] 1.02 {INR} Invalid Interpretation Code [facility] Auto Coag Comment on above: Interpretive Data: I NR results are specifically intended to assess patients stabilized on long-term Anticoagulation therapy suggested INR s Less Intensive Anticoagulation 2.0 3.0 Conventional Range 3.0 4.5 PT Coag (PPP) [Time] 11.4 s Normal 9.4 - 1 2.5 second(s) [facility] Comment on above: Interpretive Data: [...] were obtained from a study by Ethan Kunkle, et al. prepared from 1437 samples obtained at 7 different centers using the same coagulation reagent and instrumentation as [facility]. Currently there are no coagulation studies available [...] Coag (PPP) [Time] 30.9 second(s) Normal 25.1-36.5 [facility] Comment on above: Result Comment: Para meter [...] the same coagulation reagent and instrumentation as [facility]. Currently there are no coagulation studies available worldwide for children to 14 days, and no normal ranges. Heparin therapeutic range (represented by Anti-Factor Xa activity of 0.2 - 0.4 U/mL) corresponds to PTT of 56.6 - 109.0 sec. Performed By: #### 1 [id number] ####[facility] [address] [place] [address] INR Coag (PPP) [Relative time] 1.02 {INR} Invalid Interpretation Code [facility] Comment on above: Result Comment: INR results are specifically intended to assess patients stabilized on long-term Anticoagulation therapy suggested INR???s ???Less Intensive Anticoagulation??? 2.0 ??? 3.0 Conventional Range 3.0 ??? 4.5 Performed By: #### 1 [id number] ####[facility] [address] [place] [address] PT Coag (PPP) [Time] 11.4 second(s) Normal 9.4-12.5 [facility] Comment on above: Result Comment: 15 d [...] ranges were obtained from a study by fabi Alamo al. prepared from 1437 samples obtained at 7 different centers using the same coagulation reagent and instrumentation as [facility]. Currently there are no coagulation studies available worldwide for children to 14 days, and no normal ranges. Performed By: #### 1 [id number] ####[facility] [address] [place] [address] UA with Cult Rflxon 06-18-20 24 Bilirubin Ql (U) Negative Normal Negative [facility] Comment on above: Performed By: #### 4 [id number] #### [facility] [address] [place] [address] Clarity (U) Clear Normal Clear [facility] Comment on above: Performed By: #### 4 [id number] #### [facility] [address] [place] [address] Color (U) Colorless Abnormal Yellow [facility] Comment on above: Result Comment: Micr oscopic readings are only performed on those samples that meet specific criteria set forth by [facility]. Performed By: #### 4 [id number] #### [facility] [address] [place] [address] Glucose Ql (U) Negative Normal Negative [facility] Comment on above: Performed By: #### 4 [id number] #### [facility] [address] [place] [address] Hemoglobin Auto test strip (U) [Mass/Vol] Trace Abnormal Negative [facility] Comment on above: Performed By: #### 4 [id number] #### [facility] [address] [place] [address] Ketones Auto test strip Ql (U) Negative Normal Negative [facility] Comment on above: Performed By: #### 4 [id number] #### [facility] [address] [place] [address] Leukocyte esterase Auto test strip Ql (U) Negative Normal Negative [facility] Comment on above: Performed By: #### 4 [id number] #### [facility] [address] [place] [address] Nitrite Auto test strip Ql (U) Negative Normal Negative [facility] Comment on above: Performed By: #### 4 [id number] #### [facility] [address] [place] [address] pH (U) 6.0 [pH] Invalid Interpretation Code 5.0-9.0 [facility] Comment on above: Performed By: #### 4 [id number] #### [facility] [address] [place] [address] Protein Ql (U) Negative Normal Negative [facility] Comment on above: Performed By: #### 4 [id number] #### [facility] [address] [place] [address] Specific gravity (U) [Rel density] 1.005 Invalid Interpretation Code 1.005-1.030 [facility] Comment on above: Performed By: #### 4 [id number] #### [facility] [address] [place] [address] Urobilinogen (U) [Mass/Vol] Negative Normal Negative [facility] Comment on above: Performed By: #### 4 [id number] #### [facility] [address] [place] [address] Type of Urine collection method Clean Catch Normal [facility] Comment on above: Performed By: #### 4 [id number] #### [facility] [address] [place] [address] URINALYSISOrdered By: SYSTEM SYSTEM on 06-18-2024 Bilirubin Ql (U) Negative Normal Negativemg/ d L FT UA Auto SS Clarity (U) Clear (06/18/24 3:58 PM) Normal Clear FT UA Auto SS Color (U) Colorless 1 *ABN* (06/18/24 3:58 PM) Invalid Interpretation Code Yellow [facility]A Auto SS Comment on above: Interpretive Data: M icroscopic readings are only performed on those samples that meet specific criteria set forth by [facility]. Glucose Ql (U) Negative Normal Negativemg/d [...] 06-18-2024 eGFR 64 mL/min/1.73 m2 Normal >=59 [facility] Comment on above: Performed By: #### 1 [id number] #### [facility] [address] [place] [address] Ambulatory Visit Summaryon 1 08-11-2023 Ambulatory Visit [...] Follow-Up Appointments Friday 3:30 PM EST Where: [facility] 2023 9:00 AM EST Where: [facility] [...] including vitamins, herbs, eye drops, creams, and daqk-nug-mwauune medicines. ??? Any problems you or family [...] times per week. SE discussed. Sent to [facility] Suhail. 4. Urethral caruncle (N36.2: Urethral caruncle) [...] Follow-up With When Contact Information GABBY RAMIREZ, JAYY VILLASENOR Additional Instructions: schedule cysto with bladder tumor bx Patient Education Injection Treatments for Urinary Incontinence Shahla Espinoza, personally scribed for Dr. Hamilton Malone on 06/11/2024 10:15:05. . Portions of this record may have been created with voice recognition artificial intelligence software, specifically [employer], [employer] and or [employer]. Substitutions may have occurred due to the inherent limitations of voice recognition and artificial intelligence software. Documentation recorded by the scribe, Shahla Evans, accurately reflects the services(s) I performed and decisions made by me. Authenticated by Dr. Malone on 06/11/2024 10:32:41. Problem List/Past Medic (more content not included)... Normal [facility] Comment on above: Result Comment: Elec tronically Signed By: GABBY RAMIREZ, HAMILTON\.br\Date and Time Signed: 06/11/24 10:33 EDT\.br\Electronically Co-Signed By: Shahla Evans\.br\Date and Time Co-Signed: 06/11/24 10:15 EDT Laboratory - Chemistry and C hemistry - challengeon 06-04-2024 Bilirubin Ql (U) Negative [facility] Glucose (U) [Mass/Vol] Negative [facility] Ketones Ql (U) Negative [facility] pH (U) 5 [pH] [facility] Specific gravity (U) [Rel density] 1.000 [facility] Urobilinogen (U) [Mass/Vol] 0.2 mg/dL [facility] Laboratory - Specimen inform ationon 06-04-2024 Appearance (U) cloudy [facility] Color (U) alvin [facility] - Urinalysison Leukocyte esterase Test strip Ql (U) ++ [facility] Nitrite Ql (U) Negative [facility] Protein Ql (U) Negative [facility] No Panel Informationon 06-04 Urine Occult Blood +++ [facility] Urine Cultureon 06-04-2024 Bacteria identified Cx Nom (U) ORGANISM: Klebsiella pneumoniae (O:KLEPNE) [place] Count >100,000 Aerobic ILANA Charge (NMIC56) ----- [...] RESISTANT TO ALL B-LACTAM DRUGS. PERFORMED BY: [place] [address] PATHOLOGIST VISUAL INSPECTOR ALEXEI COLE M.D. Normal [facility] Comment on above: Performed By: #### C UU #### [address] Urine cultureOrdered By: Gabriela Barry on 06-04-2024 Bacteria identified Cx Nom (U) Abnormal [facility] Urology Office/Clinic Noteon 05-28-2024 Urology Office/Clinic [...] E&M of New Patient Moderate 45-59 Min [id number] Orders: ciprofloxacin, See Instructions, 1 tab po day prior to cysto, 1 tab po following cysto, # 2 tab(s), Refills(s) 0, Pharmacy: [facility]/pharmacy #[id number], 170, cm, 05/25/24 10:38:00 EDT, Height/Length Dosing, 84, kg, 05/25/24 10:38:00 EDT, Weight Dosing Follow-up With When Contact Information [facility] [address] [place] [address] Business (1) Additional Instructions: our track dresser will be contacting you for follow-up Patient [...] venlafaxine Allergies (more content not included)... Normal [facility] Comment on above: Result Comment: Elec tronically Signed By: MARK CARLTON, KARON Farnsworth\Date and Time Signed: 05/28/24 14:13 EDT Cholesterol in LDL Calc [Mas s/Vol]on 05-26-2024 Cholesterol in LDL [Mass/Vol] 160.0 mg/dL [facility] Comment on above: <100 mg/dl [id number] 0-129 mg/dl NEAR OR ABOVE [id number] mg/dl BORDERLINE [id number] mg/dl HIGH>190 mg/dl VERY HIGH Cholesterol in LDL [Mass/Vol] Cholesterol in LDL [Mass/volume] in Serum or Plasma by calculation [facility] Comment on above: <100 mg/dl [id number] 0-129 mg/dl NEAR OR ABOVE [id number] mg/dl BORDERLINE [id number] mg/dl HIGH>190 mg/dl VERY HIGH Cholesterol in VLDL Calc [Ma ss/Vol]on 05-26-2024 Cholesterol in VLDL [Mass/Vol] 41.0 mg/dL [facility] Cholesterol in VLDL [Mass/Vol] Cholesterol in VLDL [Mass/volume] in Serum or Plasma by calculation [facility] Estimated glomerular filtrat ion rate (GFR) non- Americanon 05-26-2024 GFR/1.73 sq M.predicted among non-blacks MDRD (S/P/Bld) [Vol rate/Area] 44 mL/min/{1.73_m2} Low >=60 mL/min/1.73m 2 [facility] GFR/1.73 sq M.predicted among non-blacks MDRD (S/P/Bld) [Vol rate/Area] Estimated glomerular filtration rate (GFR) non- Low >=60 mL/min/1.73m 2 [facility] Globulin Calc (S) [Mass/Vol] on 05-26-2024 Globulin (S) [Mass/Vol] 4.3 g/dL [facility] Globulin (S) [Mass/Vol] Serum globulin measurement by calculation (mass/volume) [facility] - Chemistry and C hemistry - challengeon 05-26-2024 Albumin [Mass/Vol] 3.5 g/dL 3.4-5.0 [facility] ALP [Catalytic activity/Vol] 110 U/L 46-116 [facility] ALT [Catalytic activity/Vol] 21 U/L 14-59 [facility] AST [Catalytic activity/Vol] 14 U/L Low 15-37 [facility] Bilirubin [Mass/Vol] 0.2 mg/dL 0.2-1.0 [facility] Bilirubin.direct [Mass/Vol] 0.1 mg/dL 0.0-0.2 [facility] Cholesterol [Mass/Vol] 281 mg/dL High <=200 [facility] Cholesterol in HDL [Mass/Vol] 80 mg/dL High 40-60 [facility] Comment on above: > or =60 mg/dl - LOW CARDIOVASCULAR RISK<40 mg/dl - HIGH CARDIOVASCULAR RISK Creatinine [Mass/Vol] 1.24 mg/dL High 0.55-1.02 [facility] GFR/1.73 sq M.predicted MDRD (S/P/Bld) [Vol rate/Area] 53 mL/min/{1.73_m2} Low >=60 mL/min/1.73m 2 [facility] Glucose [Mass/Vol] 110 mg/dL High 74-106 [facility] Protein [Mass/Vol] 7.8 g/dL 6.4-8.2 [facility] Triglyceride [Mass/Vol] 205 mg/dL High <=150 [facility] TSH Qn 1.756 m[IU]/L 0.358-3.740 [facility] Urea nitrogen [Mass/Vol] 16.0 mg/dL 7.0-18.0 [facility] No Panel Informationon 05-26 [place] Level 0.6 mmol/L 0.5-1.2 [facility] Comment on above: A concentration of 0 .5-0.8 mmol/L is advised for long-termuse; concentrations of up to 1.2 mmol/L may be necessaryduring acute treatment. Detection Limit = 0.1 <0.1 indicates None DetectedPerformed at: [facility] [place], [place] [id number] Director: Reji Williamson PhD, Phone: [phone] Serum or plasma albumin/glob ulin mass ratioon 05-26-2024 Albumin/Globulin [Mass ratio] 0.8 {ratio} [facility] Albumin/Globulin [Mass ratio] Serum or plasma albumin/globulin mass ratio [facility] Serum or plasma total choles terol/high density lipoprotein (HDL) cholesterol mass yoselyn 05-26-2024 Cholesterol.total/Choles terol in HDL [Mass ratio] 3.5 {ratio} [facility] Comment on above: 3.3 - 4.4 LOW RISK4. 4 - 7.1 AVERAGE RISK7.1 - 11.0 MODERATE RISK>11.0 HIGH RISK Cholesterol.total/Choles terol in HDL [Mass ratio] Serum or plasma total cholesterol/high density lipoprotein (HDL) cholesterol mass rat [facility] Comment on above: 3.3 - 4.4 [...] including vitamins, herbs, eye drops, creams, and vnys-pfj-ysbggil medicines. ? Any problems you or family [...] tells you to take them. ? Taking ewkt-crg-aahtgdq medicines, vitamins, herbs, and supplements. Surgery safety Ask your health care provider: ? How your surgery site will be marked. ? What steps will be taken to help prevent infection. These steps may include: ? Removing hair at the surgery site. ? Washing skin wi (more content not included)... Normal [facility] - Chemistry and C hemistry - challengeon 05-19-2024 Bilirubin Ql (U) Negative [facility] Glucose (U) [Mass/Vol] Negative [facility] Ketones Ql (U) Negative [facility] pH (U) 7.0 [pH] [facility] Specific gravity (U) [Rel density] 1.010 [facility] Urobilinogen (U) [Mass/Vol] 0.2 mg/dL [facility] - Microbiology an d Antimicrobial susceptibilityOrdered By: Adamaris Hill on 05-19-2024 Bacteria identified Cx Nom (U) Klebsiella pneumoniae Abnormal [facility] - Specimen inform ationon 05-19-2024 Appearance (U) clear [facility] Color (U) darkyellow [facility] - Urinalysison Leukocyte esterase Test strip Ql (U) moderate [facility] Nitrite Ql (U) Positive [facility] Protein Ql (U) Negative [facility] No Panel Informationon 05-19 Urine Occult Blood moderate [facility] Urine Cultureon 05-19-2024 Bacteria identified Cx Nom (U) ORGANISM: Klebsiella pneumoniae (O:KLEPNE) [place] Count 75,000 Aerobic ILANA Charge (NMIC56) ----- [...] RESISTANT TO ALL B-LACTAM DRUGS. PERFORMED BY: [place] [address] PATHOLOGIST VISUAL INSPECTOR ALEXEI COLE M.D. Normal [facility] Comment on above: Performed By: #### C UU #### [address] Urine cultureOrdered By: Pascale Hill on 05-19-2024 Bacteria identified Cx Nom (U) Abnormal [facility] HIV AB/P24 AG WITH REFLEXon 05-05-2024 HIV AB/P24 AG SCREEN Non-Reactive Non Reactive [facility] Comment on above: HIV-1/HIV-2 antibodi es and HIV-1 p24 antigen were NOT detected. There is no laboratory evidence of HIV infection. HIV Negative Performed at: [facility] [place], [place] [id number] Java Development Team Lead: Reji Williamson PhD, Phone: [phone] [facility] HBV surface Ag IA Qlon 05-04 Hepatitis B Surface Antigen Negative Negative [facility] Comment on above: Performed at: [employer] [address] [id number] Director: Reji Williamson PhD, Phone: [phone] Performed at: [employer] [address] [id number] Director: Reji Williamson PhD, Phone: [phone] HIV 1 and HIV-2 antibody ass ay with HIV-1 p24 antigen detectionon 05-04-2024 HIV 1+2 Ab+HIV1 p24 Ag IA Ql Non-Reactive Non Reactive [facility] Comment on above: HIV-1/HIV-2 antibodi es and HIV-1 p24 antigen were NOTdetected. There is no laboratory evidence of HIV infection.HIV NegativePerformed at: [facility] [id number] Director: Reji Williamson PhD, Phone: [phone] HIV 1+2 Ab+HIV1 p24 Ag IA Ql HIV 1 and HIV-2 antibody assay with HIV-1 p24 antigen detection Non Reactive [facility] Comment on above: HIV-1/HIV-2 antibodi es and HIV-1 p24 antigen were NOTdetected. There is no laboratory evidence of HIV infection.HIV NegativePerformed at: [facility] [id number] Director: Reji Williamson PhD, Phone: [phone] No Panel Informationon 05-04 RPR Quantitative Confirmation Non Reactive titer NonRea<1:1 [facility] Comment on above: Please Note: This te st does not meet current guidelines forscreening and diagnosis of syphilis. This test isintended for following treatment response in patients beingtreated for syphilis infection. To screen for syphilisinfection, a reflex cascade that includes both RPR and atreponema-specific assay should be utilized, such asTreponema pallidum (Syphilis) Screening [employer] (866995) orRapid Plasma Reagin (RPR) Test With Reflex to QuantitativeRPR and Confirmatory Treponema pallidum Antibodies(938100).Performed at: [facility] [employer] [id number] Director: Reji Williamson PhD, Phone: [phone] IGP,APTIMA HPV,AGE GDLNon AGE GDLN ACOG TESTING Note . [facility] Comment on above: TESTS RESULT FLAG UN ITS REF RANGE LAB Clinician Provided Cytology Information Source.............Cervix;Endocervix No. of containers..01 ThinPrep Vial Age Algo ACOG Hailee... 30-65 01 FLAG LEGEND: L-Low Normal,H-High Normal,LL-Alert Low,HH-Alert High <-Panic Low,>-Panic High,A-Abnormal,AA-Critical Abnormal Performed at: 01 =G [address] [address] Karena Shane MD, HPV APTIMA Negative Negative [facility] Comment on above: This nucleic acid am plification test detects fourteen high- risk HPV types (16,18,31,33,35,39,45,51,52,56,58,59,66,68) without differentiation. Performed at: = - [address], [place] [id number] Java Development Team Lead: Karena Shane MD, Phone: [phone] Performed at: - [address] [id number] [employer] Team Lead: Karena Shane MD, Phone: [phone] IGP, APTIMA HPV, RFX 16/18,45 Note . [facility] Comment on above: TESTS RESULT FLAG UN ITS REF RANGE LAB DIAGNOSIS: 02 NEGATIVE FOR INTRAEPITHELIAL LESION OR MALIGNANCY. Specimen adequacy: 02 Satisfactory for evaluation. No endocervical component is identified. Performed by: Dionne Pozo, Occup Ther (ASCP) . 02 Note: Note 02 The [...] <-Panic Low,>-Panic High,A-Abnormal,AA-Critical Abnormal Performed at: [address] [address] Karena Shane MD, BRUSH-SPATULA CERVIX ENDOCERVIX [facility] URETHRITIS/DISCHARGE PLUS VA GINITIS (HTRX)on 04-23-2024 ATOPOBIUM VAGINAE 0.000 [facility] ATOPOBIUM VAGINAE Not detected [facility] BVAB 2,3 (BACTERIAL VAGINOSIS ASSOCIATED BACTERIA 2, 3); MOBILUNCUS SPP 0.000 [facility] BVAB 2,3 (BACTERIAL VAGINOSIS ASSOCIATED BACTERIA [...] DNA Probe+sig amp Ql (Cvx) Negative Negative [facility] Comment on above: This nucleic acid am plification test detects fourteen high-risk HPV types (16,18,31,33,35,39,45,51,52,56,58,59,66,68)without differentiation.Performed at: =[address] [id number] Director: Karena Shane MD, Phone: [phone] at: [address] [id number] Director: Karena Shane MD, Phone: [phone] HPV 16+18+31+33+35+39+45+51+ 52+56+58+59+66+68 DNA Probe+sig amp Ql (Cvx) Human papilloma virus 16+18+31+33+35+39+45 +51+52+56+58+59+66+6 8 DNA [Presence] in Cer Negative [facility] Comment on above: This nucleic acid am plification test detects fourteen high-risk HPV types (16,18,31,33,35,39,45,51,52,56,58,59,66,68)without differentiation.Performed at: =[address] [id number] Director: Karena Shane MD, Phone: [phone] at: [address] [id number] Director: Karena Shane MD, Phone: [phone] No Panel Informationon 04-21 HPV High Risk Other Comment Note . [facility] Comment on above: TESTS RESULT FLAG UN ITS REF RANGE LAB --DIAGNOSIS: 02 NEGATIVE FOR INTRAEPITHELIAL LESION OR MALIGNANCY.Specimen adequacy: 02 Satisfactory for evaluation. No endocervical component is identified.Performed by: Dionne Pozo, Occup Ther (ASCP). 02Note: Note 02 The Pap smear [...] High <-Panic Low,>-Panic High,A-Abnormal,AA-Critical Abnormal -------Performed at:[address] [address] Karena Shane MD, Reference Lab Test Patient Age Note . [facility] Comment on above: TESTS RESULT FLAG UN ITS REF RANGE LAB -- Clinician Provided Cytology Information Source.............Cervix;Endocervix No. of containers..01 ThinPrep VialAge Bernardo DRIVER Hailee... - FLAG LEGEND: L-Low Normal,H-High Normal,LL-Alert Low,HH-Alert High <-Panic Low,>-Panic High,A-Abnormal,AA-Critical Abnormal -------Performed at:01 =G [address] [address] Karena Shane MD, Basophils Auto (Bld) [#/Vol] on 04-09-2024 Basophils (Bld) [#/Vol] 0.1 10 3/uL 0.0-0.1 [facility] Basophils (Bld) [#/Vol] Automated basoph il count 0.0-0.1 [facility] Basophils/100 WBC Auto (Bld) on 04-09-2024 Basophils/100 WBC (Bld) 0.8 % 0.2-2.0 F [facility] Basophils/100 WBC (Bld) Automated basophil % 0. 2-2.0 [facility] Cholesterol in LDL Calc [Mas s/Vol]on 04-09-2024 Cholesterol in LDL [Mass/Vol] 156.0 mg/dL [facility] Comment on above: <100 mg/dl [id number] 0-129 mg/dl NEAR OR ABOVE DNPWUOJ827-972 mg/dl BORDERLINE KNZB105-384 mg/dl HIGH>190 mg/dl VERY HIGH Cholesterol in LDL [Mass/Vol] Cholesterol in LDL [Mass/volume] in Serum or Plasma by calculation [facility] Comment on above: <100 mg/dl [id number] 0-129 mg/dl NEAR OR ABOVE [id number] mg/dl BORDERLINE HMQR916-300 mg/dl HIGH>190 mg/dl VERY HIGH Cholesterol in VLDL Calc [Ma ss/Vol]on 04-09-2024 Cholesterol in VLDL [Mass/Vol] 37.6 mg/dL [facility] Cholesterol in VLDL [Mass/Vol] Cholesterol in VLDL [Mass/volume] in Serum or Plasma by calculation [facility] Eosinophils/100 WBC Auto (Bl d)on 04-09-2024 Eosinophils/100 WBC (Bld) 2.3 % 0.9-7.0 [facility] Eosinophils/100 WBC (Bld) Automated eosinophil % 0.9-7.0 [facility] Erythrocyte distribution wid th Auto (RBC) [Ratio]on 04-09-2024 Erythrocyte distribution width (RBC) [Ratio] 14.2 % 11.0-15.0 [facility] Erythrocyte distribution width (RBC) [Ratio] Erythrocyte distribution width [Ratio] by Automated count 11.0-15.0 [facility] Globulin Calc (S) [Mass/Vol] on 04-09-2024 Globulin (S) [Mass/Vol] 3.7 g/dL [facility] Globulin (S) [Mass/Vol] Serum globulin measurement by calculation (mass/volume) [facility] Hematocrit Auto (Bld) [Volum e fraction]on 04-09-2024 Hematocrit (Bld) [Volume fraction] 48.4 % High 36.0-48.0 [facility] Hematocrit (Bld) [Volume fraction] Hematocrit [Volume Fraction] of Blood by Automated count High 36.0-48.0 [facility] Hemoglobin [Mass/volume] in Bloodon 04-09-2024 Hemoglobin (Bld) [Mass/Vol] 15.8 g/dL 12.0-16.0 [facility] Hemoglobin (Bld) [Mass/Vol] Hemoglobin [Mass/volume] in Blood 12.0-16.0 [facility] Laboratory - Chemistry and C hemistry - challengeon 04-09-2024 Albumin [Mass/Vol] 3.5 g/dL 3.4-5.0 [facility] ALP [Catalytic activity/Vol] 92 U/L 46-116 [facility] ALT [Catalytic activity/Vol] 30 U/L 14-59 [facility] AST [Catalytic activity/Vol] 17 U/L 15-37 [facility] Bilirubin [Mass/Vol] 0.6 mg/dL 0.2-1.0 [facility] Bilirubin.direct [Mass/Vol] 0.1 mg/dL 0.0-0.2 [facility] Cholesterol [Mass/Vol] 263 mg/dL High <=200 [facility] Cholesterol in HDL [Mass/Vol] 70 mg/dL High 40-60 [facility] Comment on above: > or =60 mg/dl - LOW CARDIOVASCULAR RISK<40 mg/dl - HIGH CARDIOVASCULAR RISK Protein [Mass/Vol] 7.2 g/dL 6.4-8.2 [facility] Triglyceride [Mass/Vol] 188 mg/dL High <=150 [facility] Laboratory - Hematology and Cell countson 04-09-2024 Immature granulocytes/100 WBC (Bld) 0.7 % High 0.0-0.5 [facility] Leukocytes [#/volume] correc sheeba for nucleated erythrocytes in Blood by Automated counon 04-09-2024 WBC corrected for nucl RBC Auto (Bld) [#/Vol] 7.4 10 3/uL 4.0-11.0 [facility] WBC corrected for nucl RBC Auto (Bld) [#/Vol] Leukocytes [#/volume] corrected for nucleated erythrocytes in Blood by Automated coun 4.0-11.0 [facility] Lymphocytes Auto (Bld) [#/Vo l]on 04-09-2024 Lymphocytes (Bld) [#/Vol] 1.9 10 3/uL 1.2-3.8 [facility] Lymphocytes (Bld) [#/Vol] Lymphocytes [#/volume] in Blood by Automated count 1.2-3.8 [facility] Lymphocytes/100 WBC Auto (Bl d)on 04-09-2024 Lymphocytes/100 WBC (Bld) 25.8 % 20.5-60.0 [facility] Lymphocytes/100 WBC (Bld) Lymphocytes/100 leukocytes in Blood by Automated count 20.5-60.0 [facility] MCH Auto (RBC) [Entitic mass ]on 04-09-2024 MCH (RBC) [Entitic mass] 29.5 pg 26.7-34.0 [facility] MCH (RBC) [Entitic mass] MCH [Entitic ma ss] by Automated count 26.7-34.0 [facility] MCHC Auto (RBC) [Mass/Vol]on 04-09-2024 MCHC (RBC) [Mass/Vol] 32.6 g/dL 29.9-35.2 [facility] MCHC (RBC) [Mass/Vol] MCHC [Mass/volume] by Automated count 29.9-35.2 [facility] MCV Auto (RBC) [Entitic vol] on 04-09-2024 MCV (RBC) [Entitic vol] 90.3 fL 81.0-99.0 [facility] MCV (RBC) [Entitic vol] MCV [Entitic vol ume] by Automated count 81.0-99.0 [facility] Monocytes Auto (Bld) [#/Vol] on 04-09-2024 Monocytes (Bld) [#/Vol] 0.6 10 3/uL 0.3-0.8 [facility] Monocytes (Bld) [#/Vol] Automated blood monocyte count 0.3-0.8 [facility] Monocytes/100 WBC Auto (Bld) on 04-09-2024 Monocytes/100 WBC (Bld) 7.9 % 1.7-12.0 [facility] Monocytes/100 WBC (Bld) Automated monocyte % 1. 7-12.0 [facility] Neutrophils Auto (Bld) [#/Vo l]on 04-09-2024 Neutrophils (Bld) [#/Vol] 4.6 10 3/uL 1.4-6.5 [facility] Neutrophils (Bld) [#/Vol] Neutrophils [#/volume] in Blood by Automated count 1.4-6.5 [facility] Neutrophils/100 WBC Auto (Bl d)on 04-09-2024 Neutrophils/100 WBC (Bld) 62.5 % 43.0-75.0 [facility] Neutrophils/100 WBC (Bld) Automated neutrophil % 43.0-75.0 [facility] No Panel Informationon 04-09 Eosinophils # (Auto) 0.2 10 3/uL 0.0-0.7 [facility] Follicle Stimulating Hormone 71.8 mIU/mL 25.8-134.8 [facility] Comment on above: Adult Female Range F ollicular phase 3.5 - 12.5 Ovulation phase 4.7 - 21.5 Luteal phase 1.7 - 7.7 Postmenopausal 25.8 - 134.8Performed at: [facility] - [facility] [id number] [place], [place] [id number] Director: Reji Williamson PhD, Phone: [phone] Immature Granulocyte # (Auto) 0.05 10 3/uL High 0.00-0.03 [facility] [place] Level 0.1 mmol/L Abnormal 0.5-1.2 [facility] Comment on above: A concentration of 0 .5-0.8 mmol/L is advised for long-termuse; concentrations of up to 1.2 mmol/L may be necessaryduring acute treatment. Detection Limit = 0.1 <0.1 indicates None DetectedPerformed at: [facility] [address] [id number] Director: Reji Williamson PhD, Phone: [phone] Platelet mean volume Auto (B ld) [Entitic vol]on 04-09-2024 Platelet mean volume (Bld) [Entitic vol] 10.0 fL 9.5-13.5 [facility] Platelet mean volume (Bld) [Entitic vol] Platelet mean volume [Entitic volume] in Blood by Automated count 9.5-13.5 [facility] Platelets Auto (Bld) [#/Vol] on 04-09-2024 Platelets (Bld) [#/Vol] 278 10 3/uL 150-450 [facility] Platelets (Bld) [#/Vol] Platelets [#/vol ume] in Blood by Automated count 150-450 [facility] RBC Auto (Bld) [#/Vol]on RBC (Bld) [#/Vol] 5.36 10 6/uL 4.20-5.40 [facility] RBC (Bld) [#/Vol] Erythrocytes [#/volume] in Blood by Automated count 4.20-5.40 [facility] Serum or plasma albumin/glob ulin mass ratioon 04-09-2024 Albumin/Globulin [Mass ratio] 0.9 {ratio} [facility] Albumin/Globulin [Mass ratio] Serum or plasma albumin/globulin mass ratio [facility] Serum or plasma total choles terol/high density lipoprotein (HDL) cholesterol mass yoselyn 04-09-2024 Cholesterol.total/Choles terol in HDL [Mass ratio] 3.8 {ratio} [facility] Comment on above: 3.3 - 4.4 LOW RISK4. 4 - 7.1 AVERAGE RISK7.1 - 11.0 MODERATE RISK>11.0 HIGH RISK Cholesterol.total/Choles terol in HDL [Mass ratio] Serum or plasma total cholesterol/high density lipoprotein (HDL) cholesterol mass rat [facility] Comment on above: 3.3 - 4.4 [...] Elec tronically Signed By: BERONICA RAMIREZ, Dieter Mcdaniels.marian\Date and Time Signed: 01/14/24 17:14 EDT Nurse [...] (COVID-19) mRNA-1273 vaccine 11/11/2020 Recorded Normal [facility] Operative Reporton Operative Report [id number] #1.00TIFF Normal [facility] Pathology Noteon 01-08-2024 Pathology Note [id number] #1.00TIFF Normal [facility] [place] 12-31-2023 L Specimen: [id number] Received: 01/01/24 Status: VALERIE dAdis Num: [id number] Spec Type: Surgical Subm Dr: Dieter Loco MD FACS Tissues: A Skin-Other than Cyst, tag, debridement or plastic repair (RT NIPPLE LESION) Procedures: HE, Gross/Micro L4 Age/ Patient Sex Location Account Attending Physician Rain Sweeney 63/F [facility] [id number] Dieter Loco MD FACS SPEC NUM: [id number] RECD: 01/01/24 STATUS: VALERIE CHAU NUM: [id number] JOSEMANUEL: 12/31/[address] [facility] [address]: Dieter Loco MD FACS ENTERED: 01/01/[address] [facility] [address]: Renee Jang SPEC TYPE: Surgical DEPT: [...] surface and entirely submitted in A1. Specimen: [id number] Received: 01/01/24 Status: VALERIE Chau Num: [id number] Spec Type: Surgical Subm Dr: Dieter Loco MD FACS Tissues: A Skin-Other than Cyst, tag, debridement or plastic repair (RT NIPPLE LESION) Procedures: HE, Gross/Micro L4 Patient: Rain Sweeney [id number] (Continued) Specimen: [id number] Received: 01/01/24 (Continued) Signed (signature on file) Bobbi Buckner MD 01/05/241811 Specimen: [id number] Received: 01/01/24 Status: VALERIE Chau Num: [id number] Spec Type: Surgical Subm Dr: Dieter Loco MD FACS Tissues: A Skin-Other than Cyst, tag, debridement or plastic repair (RT NIPPLE LESION) Procedures: Ita FLOYD/Carlo L4 Patient: Rain Sweeney [id number] (Continued) Specimen: [id number] Received: 01/01/24 (Continued) CPT Codes 82999 Specimen: [id number] Received: 01/01/24 Status: SAWYERBlaze Chau Num: [id number] Spec Type: Surgical Subm Dr: Dieter Loco MD FACS Tissues: A Skin-Other than Cyst, tag, debridement or plastic repair (RT NIPPLE LESION) Procedures: Ita FLOYD/Carlo L4 Patient: Rain Sweeney [id number] (Continued) Signed (signature on file) Jeffrey-Tonny Buckner MD 01/05/241811 Normal [facility] Consent for Procedure/Surger yon 11-21-2023 Consent for Procedure/Surgery [id number] #1.00TIFF [facility] Facesheeton 11-20-2023 Facesheet [id number] #1.00TIFF [facility] RAD - Ultrasound Reporton RAD - Ultrasound Report [id number] #1.00TIFF Normal [facility] Ambulatory Visit Summaryon 0 11-19-2023 [...] Basophils (Bld) [#/Vol] 0.1 10 3/uL 0.0-0.1 [facility] Basophils/100 WBC Auto (Bld) on 11-18-2023 Basophils/100 WBC (Bld) 0.9 % 0.2-2.0 [facility] Cholesterol in LDL Calc [Mas s/Vol]on 11-18-2023 Cholesterol in LDL [Mass/Vol] 130.0 mg/dL [facility] Comment on above: <100 mg/dl [id number] 0-129 mg/dl NEAR OR ABOVE [id number] mg/dl BORDERLINE [id number] mg/dl HIGH>190 mg/dl VERY HIGH Cholesterol in VLDL Calc [Ma ss/Vol]on 11-18-2023 Cholesterol in VLDL [Mass/Vol] 19.8 mg/dL [facility] Eosinophils/100 WBC Auto (Bl d)on 11-18-2023 Eosinophils/100 WBC (Bld) 4.5 % 0.9-7.0 [facility] Erythrocyte distribution wid th Auto (RBC) [Ratio]on 11-18-2023 Erythrocyte distribution width (RBC) [Ratio] 13.6 % 11.0-15.0 [facility] Estimated glomerular filtrat ion rate (GFR) non- Americanon 11-18-2023 GFR/1.73 sq M.predicted among non-blacks MDRD (S/P/Bld) [Vol rate/Area] 55 mL/min/{1.73_m2} >=60 [facility] Globulin Calc (S) [Mass/Vol] on 11-18-2023 Globulin (S) [Mass/Vol] 3.6 g/dL [facility] Glucose mean value [Mass/vol ume] in Blood Estimated from glycated hemoglobinon 11-18-2023 Average glucose Estimated from glycated hemoglobin (Bld) [Mass/Vol] 100 mg/dL [facility] Hematocrit Auto (Bld) [Volum e fraction]on 11-18-2023 Hematocrit (Bld) [Volume fraction] 46.8 % 36.0-48.0 [facility] Hemoglobin [Mass/volume] in Bloodon 11-18-2023 Hemoglobin (Bld) [Mass/Vol] 15.0 g/dL 12.0-16.0 [facility] Laboratory - Chemistry and C hemistry - challengeon 11-18-2023 Albumin [Mass/Vol] 3.7 g/dL 3.4-5.0 [facility] ALP [Catalytic activity/Vol] 83 U/L 46-116 [facility] ALT [Catalytic activity/Vol] 40 U/L 14-59 [facility] AST [Catalytic activity/Vol] 22 U/L 15-37 [facility] Bilirubin [Mass/Vol] 0.4 mg/dL 0.2-1.0 [facility] Calcium [Mass/Vol] 9.1 mg/dL 8.5-10.1 [facility] Chloride [Moles/Vol] 104 mmol/L 98-107 [facility] Cholesterol [Mass/Vol] 226 mg/dL <=200 [facility] Cholesterol in HDL [Mass/Vol] 77 mg/dL 40-60 [facility] Comment on above: > or =60 mg/dl - LOW CARDIOVASCULAR RISK<40 mg/dl - HIGH CARDIOVASCULAR RISK CO2 [Moles/Vol] 26.6 mmol/L 21.0-32.0 [facility] Creatinine [Mass/Vol] 1.02 mg/dL 0.55-1.02 [facility] GFR/1.73 sq M.predicted MDRD (S/P/Bld) [Vol rate/Area] mL/min/{1.73_m2} >=60 [facility] Glucose [Mass/Vol] 107 mg/dL 74-106 [facility] Potassium [Moles/Vol] 3.7 mmol/L 3.5-5.1 [facility] Protein [Mass/Vol] 7.3 g/dL 6.4-8.2 [facility] Sodium [Moles/Vol] 141 mmol/L 136-145 [facility] Triglyceride [Mass/Vol] 99 mg/dL <=150 [facility] TSH Qn 1.352 m[IU]/L 0.358-3.740 [facility] Urea nitrogen [Mass/Vol] 9.0 mg/dL 7.0-18.0 [facility] Urea nitrogen/Creatinine [Mass ratio] 8.8 mg/mg [facility] Laboratory - Hematology and Cell countson 11-18-2023 HbA1c (Bld) [Mass fraction] 5.1 % 4.5-6.2 [facility] Comment on above: ADA RECOMMENDED LIMI T 4.0 - 6.0ADA THERAPEUTIC TARGET < 7.0ACTION SUGGESTED> 7.0 Immature granulocytes/100 WBC (Bld) 0.6 % 0.0-0.5 [facility] Leukocytes [#/volume] correc sheeba for nucleated erythrocytes in Blood by Automated counon 11-18-2023 WBC corrected for nucl RBC Auto (Bld) [#/Vol] 6.5 10 3/uL 4.0-11.0 [facility] Lymphocytes Auto (Bld) [#/Vo l]on 11-18-2023 Lymphocytes (Bld) [#/Vol] 1.7 10 3/uL 1.2-3.8 [facility] Lymphocytes/100 WBC Auto (Bl d)on 11-18-2023 Lymphocytes/100 WBC (Bld) 25.3 % 20.5-60.0 [facility] MCH Auto (RBC) [Entitic mass ]on 11-18-2023 MCH (RBC) [Entitic mass] 29.6 pg 26.7-34.0 [facility] MCHC Auto (RBC) [Mass/Vol]on 11-18-2023 MCHC (RBC) [Mass/Vol] 32.1 g/dL 29.9-35.2 [facility] MCV Auto (RBC) [Entitic vol] on 11-18-2023 MCV (RBC) [Entitic vol] 92.3 fL 81.0-99.0 [facility] Monocytes Auto (Bld) [#/Vol] on 11-18-2023 Monocytes (Bld) [#/Vol] 0.5 10 3/uL 0.3-0.8 [facility] Monocytes/100 WBC Auto (Bld) on 11-18-2023 Monocytes/100 WBC (Bld) 7.4 % 1.7-12.0 [facility] Neutrophils Auto (Bld) [#/Vo l]on 11-18-2023 Neutrophils (Bld) [#/Vol] 4.0 10 3/uL 1.4-6.5 [facility] Neutrophils/100 WBC Auto (Bl d)on 11-18-2023 Neutrophils/100 WBC (Bld) 61.3 % 43.0-75.0 [facility] No Panel Informationon 11-17 Eosinophils # (Auto) 0.3 10 3/uL 0.0-0.7 [facility] Immature Granulocyte # (Auto) 0.04 10 3/uL 0.00-0.03 [facility] [place] Level 0.9 mmol/L 0.5-1.2 [facility] Comment on above: A concentration of 0 .5-0.8 mmol/L is advised for long-termuse; concentrations of up to 1.2 mmol/L may be necessaryduring acute treatment. Detection Limit = 0.1 <0.1 indicates None DetectedPerformed at: [employer] [facility] [id number] Director: Reji Williamson PhD, Phone: [phone] Outside Mammographyon 2023 [facility] [id number] #1.00TIFF Normal [facility] Platelet mean volume Auto (B ld) [Entitic vol]on 11-18-2023 Platelet mean volume (Bld) [Entitic vol] 10.1 fL 9.5-13.5 [facility] Platelets Auto (Bld) [#/Vol] on 11-18-2023 Platelets (Bld) [#/Vol] 281 10 3/uL 150-450 [facility] RBC Auto (Bld) [#/Vol]on RBC (Bld) [#/Vol] 5.07 10 6/uL 4.20-5.40 [facility] Serum or plasma albumin/glob ulin mass ratioon 11-18-2023 Albumin/Globulin [Mass ratio] 1.0 {ratio} [facility] Serum or plasma anion gap de terminationon 11-18-2023 Anion gap [Moles/Vol] 14.1 mmol/L [facility] Serum or plasma total choles terol/high density lipoprotein (HDL) cholesterol mass yoselyn 11-18-2023 Cholesterol.total/Choles terol in HDL [Mass ratio] 2.9 {ratio} [facility] Comment on above: 3.3 - 4.4 LOW RISK4. 4 - 7.1 AVERAGE RISK7.1 - 11.0 MODERATE RISK>11.0 HIGH RISK Physician Referralon 024 Physician Referral [id number] #1.00TIFF Normal [facility] XR LSPINE 2_3 VIEWSon 2022 [...] MAKEDA QUIROZ Date: 2022-12-06 11:24 Normal [facility] LITHIUMon 11-27-2022 [place] (Eskalith(R)), Serum 0.8 mmol/L Normal 0.5-1.2 [facility] Comment on above: Result Comment: A co ncentration of 0.5-0.8 mmol/L is advised for long-term use; concentrations of up to 1.2 mmol/L may be necessary during acute treatment. Detection Limit = 0.1 <0.1 indicates None Detected Performed By: #### L ITHIUM ####[facility] [address] [place], [place] [address]DvDr. Laurel Buckner CREATININEon 11-26-2022 Creatinine [Mass/Vol] 0.97 mg/dL Normal 0.55-1.02 [facility] Comment on above: Performed By: #### T SH, CREA #### [facility] [address] [address] [address] Laurel Buckner EGFR-AF LITHUANIAN >60 Normal >=60 [facility] Comment on above: Performed By: #### T SH, CREA #### [facility] [address] [address] [address] Laurel Buckner EGFR-NON AF LITHUANIAN 59 mL/min/1.73m2 Critically low >=60 [facility] Comment on above: Performed By: #### T SH, CREA #### [facility] [address] [address] [address] Laurel Buckner TSHon 11-26-2022 TSH 1.616 uIU/mL Normal 0.358-3.740 [facility] Comment on above: Performed By: #### T SH, CREA #### [facility] [address] [address] [address] Laurel Buckner MG MAMM SCREEN 3D TOMY CADon 11-14-2022 MG MAMM SCREEN 3D TOMY CAD Patient: RAIN SWEENEY Exam Date: 11/14/2022 : 1960 Gender:F Ordering : DR SEB BARRY M.D. Admission #: [id number] Family : Order #: [id number] CLICK HERE TO VIEW EXAM RADIOLOGY REPORT [...] colon cancer at age 62. LOCATION: [facility] BREAST COMPOSITION: Heterogeneously dense,which may [...] MD on 11/14/2022 at 12:03 Normal [facility] LITHIUMon 05-16-2022 [place] (Eskalith(R)), Serum 0.8 mmol/L Normal 0.5-1.2 [facility] Comment on above: Result Comment: Plas ma concentration of 0.5 - 0.8 mmol/L are advised for long-term use; concentrations of up to 1.2 mmol/L may be necessary during acute treatment. Detection Limit = 0.1 <0.1 indicates None Detected Performed By: #### L ITHIUM #### [facility] [address] [place] [address] Dr. Laurel Buckner CBC AUTO DIFFon 05-15-2022 BASO # 0.1 103/ul Normal 0.0-0.1 [facility] Comment on above: Performed By: #### C BC #### [facility] [address] [place] [address] Dr. Laurel Buckner Basophils/100 WBC (Bld) 1.0 % Normal 0.2-2.0 [facility] Comment on above: Performed By: #### C BC #### [facility] [address] [address] [address] Luarel Buckner EO # 0.4 103/ul Normal 0.0-0.7 [facility] Comment on above: Performed By: #### C BC #### [facility] [address] [address] [address] Laurel Buckner Eosinophils/100 WBC (Bld) 5.3 % Normal 0.9-7.0 [facility] Comment on above: Performed By: #### C BC #### [facility] [address] [place] [address] Dr. Laurel Buckner Erythrocyte distribution width (RBC) [Ratio] 13.8 % Normal 11.0-15.0 [facility] Comment on above: Performed By: #### C BC #### [facility] [address] [place] [address] Dr. Laurel Buckner Hematocrit (Bld) [Volume fraction] 46.8 % Normal 36.0-48.0 [facility] Comment on above: Performed By: #### C BC #### [facility] [address] [place] [address] Dr. Laurel Buckner Hemoglobin (Bld) [Mass/Vol] 14.8 g/dL Normal 12.0-16.0 [facility] Comment on above: Performed By: #### C BC #### [facility] [address] [place] [address] Dr. Laurel Buckner IG # 0.07 10e3/ul Critically high 0.00-0.03 [facility] Comment on above: Performed By: #### C BC #### [facility] [address] [place] [address] Dr. Laurel Buckner IG % 1.0 % Critically high 0.0-0.5 [facility] Comment on above: Performed By: #### C BC #### [facility] [address] [place] [address] Dr. Laurel Buckner LYMPH # 1.7 103/ul Normal 1.2-3.8 [facility] Comment on above: Performed By: #### C BC #### [facility] [address] [place] [address] Dr. Laurel Buckner Lymphocytes/100 WBC (Bld) 25.4 % Normal 20.5-60.0 [facility] Comment on above: Performed By: #### C BC #### [facility] [address] [place] [address] Dr. Laurel Buckner MANUAL DIFF REQ NO Normal [facility] Comment on above: Performed By: #### C BC #### [facility] [address] [place] [address] Dr. Laurel Buckner MCH (RBC) [Entitic mass] 29.5 pg Normal 26.7-34.0 [facility] Comment on above: Performed By: #### C BC #### [facility] [address] [place] [address] Dr. Laurel Buckner MCHC (RBC) [Mass/Vol] 31.6 g/dL Normal 29.9-35.2 [facility] Comment on above: Performed By: #### C BC #### [facility] [address] [place] [address] Dr. Laurel Buckner MCV (RBC) [Entitic vol] 93.4 fL Normal 81.0-99.0 [facility] Comment on above: Performed By: #### C BC #### [facility] [address] [place] [address] Dr. Laurel Buckner MONO # 0.6 103/ul Normal 0.3-0.8 [facility] Comment on above: Performed By: #### C BC #### [facility] [address] [place] [address] Dr. Laurel Buckner Monocytes/100 WBC (Bld) 8.4 % Normal 1.7-12.0 [facility] Comment on above: Performed By: #### C BC #### [facility] [address] [place] [address] Dr. Laurel Buckner NEUT # 4.0 103/ul Normal 1.4-6.5 [facility] Comment on above: Performed By: #### C BC #### [facility] [address] [address] [address] Laurel Buckner Neutrophils/100 WBC (Bld) 58.9 % Normal 43.0-75.0 [facility] Comment on above: Performed By: #### C BC #### [facility] [address] [address] [address] Laurel Buckner Platelet mean volume (Bld) [Entitic vol] 10.1 fL Normal 9.5-13.5 [facility] Comment on above: Performed By: #### C BC #### [facility] [address] [address] [address] Laurel Buckner PLT 279 103/ul Normal 150-450 [facility] Comment on above: Result Comment: smea r reviewed Performed By: #### C BC #### [facility] [address] [place] [address] Dr. Laurel Buckner RBC 5.01 106/ul Normal 4.20-5.40 [facility] Comment on above: Performed By: #### C BC #### [facility] [address] [place] [address] Dr. Laurel Buckner WBC 6.8 103/ul Normal 4.0-11.0 [facility] Comment on above: Performed By: #### C BC #### [facility] [address] [place] [address] Dr. Laurel Buckner GLYCOHEMOGLOBIN A1Con 2021 ADA RECOMMENDATION SEE BELOW Normal [facility] Comment on above: Result Comment: ADA RECOMMENDED LIMIT 4.0 - 6.0 ADA THERAPEUTIC TARGET < 7.0 ACTION SUGGESTED > 7.0 Performed By: #### A 1C #### [facility] [address] [place] [address] Dr. Laurel Buckner Glucose [Mass/Vol] 97 mg/dL Normal [facility] Comment on above: Performed By: #### A 1C #### [facility] [address] [place] [address] Dr. Laurel Buckner HbA1c (Bld) [Mass fraction] 5.0 % Normal 4.5-6.2 [facility] Comment on above: Performed By: #### A 1C #### [facility] [address] [address] [address] Laurel Buckner LIPID PROFILEon 05-15-2022 CHOL-HDL RATIO NORM SEE BELOW Normal [facility] Comment on above: Result Comment: 3.3 - 4.4 LOW RISK 4.4 - 7.1 AVERAGE RISK 7.1 - 11.0 MODERATE RISK >11.0 HIGH RISK Performed By: #### L IPID, TSH, CMP #### [facility] [address] [address] [address] Laurel Buckner Cholesterol [Mass/Vol] 279 mg/dL Critically high <=200 [facility] Comment on above: Performed By: #### L IPID, TSH, CMP #### [facility] [address] [address] [address] Laurel Buckner Cholesterol in HDL [Mass/Vol] 76 mg/dL Critically high 40-60 [facility] Comment on above: Performed By: #### L IPID, TSH, CMP #### [facility] [address] [address] [address] Laurel Buckner Cholesterol in LDL [Mass/Vol] 162.8 mg/dL Normal [facility] Comment on above: Performed By: #### L IPID, TSH, CMP #### [facility] [address] [address] Dr. Laurel Buckner Cholesterol.total/Choles terol in HDL [Mass ratio] 3.7 {ratio} Normal [facility] Comment on above: Performed By: #### L IPID, TSH, CMP #### [facility] [address] [address] [address] Laurel Buckner HDL NORMAL > or = 60 mg/dl - LOW CARDIOVASCULAR RISK <40 mg/dl - HIGH CARDIOVASCULAR RISK Normal [facility] Comment on above: Performed By: #### L IPID, TSH, CMP #### [facility] [address] [address] [address] Laurel Buckner LDL CALC NORMAL SEE BELOW Normal [facility] Comment on above: Result Comment: <100 mg/dl OPTIMAL 100 - 129 mg/dl NEAR OR ABOVE OPTIMAL 130 - 159 mg/dl BORDERLINE HIGH 160 - 189 mg/dl HIGH >190 mg/dl VERY HIGH Performed By: #### L IPID, TSH, CMP #### [facility] [address] [place] [address] Dr. Laurel Buckner Triglyceride [Mass/Vol] 201 mg/dL Critically high <=150 [facility] Comment on above: Performed By: #### L IPID, TSH, CMP #### [facility] [address] [place] [address] Dr. Laurel Buckner VLDL CALC 40.2 mg/dL Normal [facility] Comment on above: Performed By: #### L IPID, TSH, CMP #### [facility] [address] [place] [address] Dr. Laurel Buckner PROF 14(COMP METB)on 022 Albumin [Mass/Vol] 3.6 g/dL Normal 3.4-5.0 [facility] Comment on above: Performed By: #### L IPID, TSH, CMP #### [facility] [address] [place] [address] Dr. Laurel Buckner Albumin/Globulin [Mass ratio] 0.9 {ratio} Normal [facility] Comment on above: Performed By: #### L IPID, TSH, CMP #### [facility] [address] [place] [address] Dr. Laurel Buckner ALP [Catalytic activity/Vol] 110 U/L Normal 46-116 [facility] Comment on above: Performed By: #### L IPID, TSH, CMP #### [facility] [address] [place] [address] Dr. Laurel Buckner ALT [Catalytic activity/Vol] 22 U/L Normal 14-59 [facility] Comment on above: Performed By: #### L IPID, TSH, CMP #### [facility] [address] [place] [address] Dr. Laurel Buckner Anion gap [Moles/Vol] 10.8 mmol/L Normal [facility] Comment on above: Performed By: #### L IPID, TSH, CMP #### [facility] [address] [address] [address] Laurel Buckner AST [Catalytic activity/Vol] 11 U/L Critically low 15-37 [facility] Comment on above: Performed By: #### L IPID, TSH, CMP #### [facility] [address] [place] [address] Dr. Laurel Buckner Bilirubin [Mass/Vol] 0.3 mg/dL Normal 0.2-1.0 [facility] Comment on above: Performed By: #### L IPID, TSH, CMP #### [facility] [address] [address] [address] Laurel Buckner Calcium [Mass/Vol] 9.1 mg/dL Normal 8.5-10.1 [facility] Comment on above: Performed By: #### L IPID, TSH, CMP #### [facility] [address] [place] [address] Dr. Laurel Buckner Chloride [Moles/Vol] 103 mmol/L Normal 98-107 [facility] Comment on above: Performed By: #### L IPID, TSH, CMP #### [facility] [address] [place] [address] Dr. Laurel Buckner CO2 [Moles/Vol] 27.9 mmol/L Normal 21.0-32.0 [facility] Comment on above: Performed By: #### L IPID, TSH, CMP #### [facility] [address] [place] [address] Dr. Laurel Buckner Creatinine [Mass/Vol] 0.96 mg/dL Normal 0.55-1.02 [facility] Comment on above: Performed By: #### L IPID, TSH, CMP #### [facility] [address] [address] [address] Laurel Buckner EGFR-AF LITHUANIAN >60 Normal >=60 [facility] Comment on above: Performed By: #### L IPID, TSH, CMP #### [facility] [address] [place] [address] Dr. Laurel Buckner EGFR-NON AF LITHUANIAN 59 mL/min/1.73m2 Critically low >=60 [facility] Comment on above: Performed By: #### L IPID, TSH, CMP #### [facility] [address] [address] [address] Laurel Buckner Globulin (S) [Mass/Vol] 3.9 g/dL Normal [facility] Comment on above: Performed By: #### L IPID, TSH, CMP #### [facility] [address] [address] [address] Laurel Buckner Glucose [Mass/Vol] 90 mg/dL Normal 74-106 [facility] Comment on above: Performed By: #### L IPID, TSH, CMP #### [facility] [address] [place] [address] Dr. Laurel Buckner Potassium [Moles/Vol] 3.7 mmol/L Normal 3.5-5.1 [facility] Comment on above: Performed By: #### L IPID, TSH, CMP #### [facility] [address] [place] [address] Dr. Laurel Buckner Protein [Mass/Vol] 7.5 g/dL Normal 6.4-8.2 [facility] Comment on above: Performed By: #### L IPID, TSH, CMP #### [facility] [address] [place] [address] Dr. Laurel Buckner Sodium [Moles/Vol] 138 mmol/L Normal 136-145 [facility] Comment on above: Performed By: #### L IPID, TSH, CMP #### [facility] [address] [place] [address] Dr. Laurel Buckner Urea nitrogen [Mass/Vol] 16.0 mg/dL Normal 7.0-18.0 [facility] Comment on above: Performed By: #### L IPID, TSH, CMP #### [facility] [address] [place] [address] Dr. Laurel Buckner Urea nitrogen/Creatinine [Mass ratio] 16.7 mg/mg Normal [facility] Comment on above: Performed By: #### L IPID, TSH, CMP #### [facility] [address] [place] [address] Dr. Laurel LUU 05-15-2022 TSH 3.094 uIU/mL Normal 0.358-3.740 [facility] Comment on above: Performed By: #### L IPID, TSH, CMP #### [facility] [address] [address] [address] Laurel Buckner Vital Signs Date Time Vital Sign Value Performing Clinician Facility 08-18-2024 10:22-0500 Diastolic blood pressure 85 mm[Hg] PHYSICIAN NO [facility] 08-18-2024 10:22-0500 Heart rate 107 /min PHYSICIAN NO [facility] 08-18-2024 10:22-0500 Respiratory rate 16 /min PHYSICIAN NO [facility] 08-18-2024 10:22-0500 SaO2% (BldA) [Mass fraction] 96 % PHYSICIAN NO [facility] 08-18-2024 10:22-0500 Systolic blood pressure 149 mm[Hg] PHYSICIAN NO [facility] 08-18-2024 10:07-0500 Body temperature 97.3 [degF] PHYSICIAN NO [facility] 08-18-2024 08:07-0500 Body height 170.18 cm PHYSICIAN NO [facility] 08-18-2024 08:07-0500 Body weight 82 kg PHYSICIAN NO [facility] 08-06-2024 09:28-0500 Blood Pressure Location HAMILTON NKANSAH-AMANKRA [facility] 08-06-2024 09:28-0500 Diastolic blood pressure 48 mm[Hg] [facility] NKANSAH-AMANKRA [facility] 08-06-2024 09:28-0500 Heart rate 88 /min [facility] NKANSAH-AMANKRA [facility] 08-06-2024 09:28-0500 Respiratory rate 17 /min H[facility]TON NKANSAH-AMANKRA [facility] 08-06-2024 09:28-0500 Systolic blood pressure 132 mm[Hg] H[facility]ILTON NKANSAH-AMANKRA [facility] 07-30-2024 09:56-0500 Diastolic blood pressure 93 mm[Hg] [facility] NKANSAH-AMANKRA [facility] 07-30-2024 09:56-0500 Heart rate 105 /min [facility] NKANSAH-AMANKRA [facility] 07-30-2024 09:56-0500 Respiratory rate 16 /min [facility] NKANSAH-AMANKRA [facility] 07-30-2024 09:56-0500 Systolic blood pressure 143 mm[Hg] [facility] NKANSAH-AMANKRA [facility] 07-27-2024 08:41-0500 Heart rate 119 /min Ronobir CROW [facility] 07-27-2024 08:41-0500 SaO2% (BldA) [Mass fraction] 96 % Ronobir CROW [facility] 07-27-2024 08:29-0500 Body temperature 98.06 [degF] Ronobir CROW [facility] 07-27-2024 08:29-0500 Diastolic blood pressure 100 mm[Hg] Ronobir CROW [facility] 07-27-2024 08:29-0500 Mean blood pressure 122 mm[Hg] Ronobir CROW [facility] 07-27-2024 08:29-0500 Systolic blood pressure 166 mm[Hg] Ronobir CROW [facility] 07-27-2024 08:11-0500 Heart rate 131 /min Ronobir CROW [facility] 07-27-2024 08:11-0500 SaO2% (BldA) [Mass fraction] 95 % Ronobir CROW [facility] 07-27-2024 08:11-0500 Respiratory rate 16 /min Ronobir CROW [facility] 07-27-2024 08:10-0500 Diastolic blood pressure 80 mm[Hg] Ronobir CROW [facility] 07-27-2024 08:10-0500 Mean blood pressure 109 mm[Hg] Ronobir CROW [facility] 07-27-2024 08:10-0500 Systolic blood pressure 167 mm[Hg] Ronobir CROW [facility] 07-27-2024 08:10-0500 Body temperature 97.88 [degF] Ronobir CROW [facility] 07-27-2024 06:06-0500 Hourly Rounding Ronobir CROW [facility] 07-27-2024 06:06-0500 Promise to Return Ronobir CROW [facility] 07-27-2024 05:13-0500 Hourly Rounding Ronobir CROW [facility] 07-27-2024 05:13-0500 Promise to Return Ronobir CROW [facility] 07-27-2024 04:08-0500 Hourly Rounding Ronobir CROW [facility] 07-27-2024 04:08-0500 Promise to Return Ronobir CROW [facility] 07-27-2024 02:23-0500 Blood Pressure Location Ronobir CROW [facility] 07-27-2024 02:23-0500 Body temperature 97.7 [degF] Ronobir CROW [facility] 07-27-2024 02:23-0500 Diastolic blood pressure 83 mm[Hg] Ronobir CROW [facility] 07-27-2024 02:23-0500 Heart rate 83 /min Ronobir CROW [facility] 07-27-2024 02:23-0500 Mean blood pressure 106 mm[Hg] Ronobir CROW [facility] 07-27-2024 02:23-0500 SaO2% (BldA) [Mass fraction] 97 % Ronobir CROW [facility] 07-27-2024 02:23-0500 Systolic blood pressure 153 mm[Hg] Ronobir CROW [facility] 07-26-2024 20:00-0500 Body temperature 98.06 [degF] Ronobir CROW [facility] 07-26-2024 16:18-0500 Respiratory rate 16 /min Ronobir CROW [facility] 07-26-2024 16:18-0500 Body temperature 97.7 [degF] Ronobir CROW [facility] 07-26-2024 16:18-0500 Mean blood pressure 97 mm[Hg] Ronobir CROW [facility] 07-26-2024 01:00-0500 Blood Pressure Location Ronobir CROW [facility] 07-26-2024 01:00-0500 Body temperature 97.16 [degF] Ronobir CROW [facility] 07-26-2024 01:00-0500 Mean blood pressure 91 mm[Hg] Ronobir CROW [facility] 07-25-2024 08:00-0500 Heart rate 98 /min Ronobir CROW [facility] 07-25-2024 08:00-0500 Mean blood pressure 90 mm[Hg] Ronobir CROW [facility] 07-22-2024 12:28-0500 Heart rate 99 /min HAMILTON NKANSAH-AMANKRA [facility] 07-22-2024 12:28-0500 SaO2% (BldA) [Mass fraction] 98 % HAMILTON NKANSAH-AMANKRA [facility] 07-22-2024 12:28-0500 Diastolic blood pressure 77 mm[Hg] HAMILTON NKANSAH-AMANKRA [facility] 07-22-2024 12:28-0500 Mean blood pressure 93 mm[Hg] HAMILTON NKANSAH-AMANKRA [facility] 07-22-2024 12:28-0500 Systolic blood pressure 125 mm[Hg] HAMILTON NKANSAH-AMANKRA [facility] 07-22-2024 12:28-0500 Respiratory rate 16 /min HAMILTON NKANSAH-AMANKRA [facility] 07-22-2024 10:10-0500 Blood Pressure Location HAMILTON NKANSAH-AMANKRA [facility] 07-22-2024 10:10-0500 Body temperature 97.7 [degF] HAMILTON NKANSAH-AMANKRA [facility] 07-22-2024 10:10-0500 Diastolic blood pressure 82 mm[Hg] HAMILTON NKANSAH-AMANKRA [facility] 07-22-2024 10:10-0500 Heart rate 107 /min HAMLITON NKANSAH-AMANKRA [facility] 07-22-2024 10:10-0500 Mean blood pressure 99 mm[Hg] HAMILTON NKANSAH-AMANKRA [facility] 07-22-2024 10:10-0500 Respiratory rate 16 /min HAMILTON NKANSAH-AMANKRA [facility] 07-22-2024 10:10-0500 SaO2% (BldA) [Mass fraction] 96 % H[facility]ILTON NKANSAH-AMANKRA [facility] 07-22-2024 10:10-0500 Systolic blood pressure 134 mm[Hg] HAMILTON NKANSAH-AMANKRA [facility] 07-22-2024 09:58-0500 Body temperature 97.88 [degF] H[facility]ILTON NKANSAH-AMANKRA [facility] 07-22-2024 09:58-0500 Diastolic blood pressure 68 mm[Hg] HAMILTON NKANSAH-AMANKRA [facility] 07-22-2024 09:58-0500 Heart rate 111 /min HAMILTON NKANSAH-AMANKRA [facility] 07-22-2024 09:58-0500 Mean blood pressure 87 mm[Hg] HAMILTON NKANSAH-AMANKRA [facility] 07-22-2024 09:58-0500 Respiratory rate 20 /min HAMILTON NKANSAH-AMANKRA [facility] 07-22-2024 09:58-0500 SaO2% (BldA) [Mass fraction] 94 % HAMILTON NKANSAH-AMANKRA [facility] 07-22-2024 09:58-0500 Systolic blood pressure 125 mm[Hg] HAMILTON NKANSAH-AMANKRA [facility] 07-22-2024 09:40-0500 Mean blood pressure 110 mm[Hg] HAMILTON NKANSAH-AMANKRA [facility] 07-22-2024 09:40-0500 Respiratory rate 24 /min HAMILTON NKANSAH-AMANKRA [facility] 07-22-2024 09:25-0500 Respiratory rate 11 /min HAMILTON NKANSAH-AMANKRA [facility] 07-22-2024 09:08-0500 Blood Pressure Location HAMILTON NKANSAH-AMANKRA [facility] 07-22-2024 09:08-0500 Body temperature 97.52 [degF] H[facility]ILTON NKANSAH-AMANKRA [facility] 07-22-2024 06:19-0500 Heart rate 98 /min H[facility]ILTON NKANSAH-AMANKRA [facility] 07-22-2024 06:19-0500 Respiratory rate 18 /min H[facility]ILTON NKANSAH-AMANKRA [facility] 07-22-2024 06:18-0500 Mean blood pressure 105 mm[Hg] H[facility]ILTON NKANSAH-AMANKRA [facility] 07-05-2024 10:04-0500 Blood Pressure Location HAMILTON NKANSAH-AMANKRA [facility] 07-05-2024 10:04-0500 Diastolic blood pressure 90 mm[Hg] HAMILTON NKANSAH-AMANKRA [facility] 07-05-2024 10:04-0500 Heart rate 109 /min HAMILTON NKANSAH-AMANKRA [facility] 07-05-2024 10:04-0500 Systolic blood pressure 155 mm[Hg] HAMILTON NKANSAH-AMANKRA [facility] 06-24-2024 10:02-0500 Heart rate 89 /min H[facility] NKANSAH-AMANKRA [facility] 06-24-2024 10:02-0500 SaO2% (BldA) [Mass fraction] 97 % H[facility]IL[facility] NKANSAH-AMANKRA [facility] 06-24-2024 10:01-0500 Blood Pressure Location HAMILTON NKANSAH-AMANKRA [facility] 06-24-2024 10:01-0500 Diastolic blood pressure 88 mm[Hg] HAMILTON NKANSAH-AMANKRA [facility] 06-24-2024 10:01-0500 Mean blood pressure 104 mm[Hg] HAMILTON NKANSAH-AMANKRA [facility] 06-24-2024 10:01-0500 Systolic blood pressure 137 mm[Hg] HAMILTON NKANSAH-AMANKRA [facility] 06-24-2024 10:01-0500 Respiratory rate 16 /min HAMILTON NKANSAH-AMANKRA [facility] 06-24-2024 09:21-0500 Heart rate 95 /min HAMILTON NKANSAH-AMANKRA [facility] 06-24-2024 09:21-0500 SaO2% (BldA) [Mass fraction] 95 % HAMILTON NKANSAH-AMANKRA [facility] 06-24-2024 09:20-0500 Blood Pressure Location HAMILTON NKANSAH-AMANKRA [facility] 06-24-2024 09:20-0500 Diastolic blood pressure 88 mm[Hg] HAMILTON NKANSAH-AMANKRA [facility] 06-24-2024 09:20-0500 Mean blood pressure 103 mm[Hg] HAMILTON NKANSAH-AMANKRA [facility] 06-24-2024 09:20-0500 Systolic blood pressure 134 mm[Hg] HAMILTON NKANSAH-AMANKRA [facility] 06-24-2024 09:20-0500 Respiratory rate 18 /min HAMILTON NKANSAH-AMANKRA [facility] 06-24-2024 09:13-0500 Body temperature 98.06 [degF] HAMILTON NKANSAH-AMANKRA [facility] 06-24-2024 09:13-0500 Mean blood pressure 92 mm[Hg] HAMILTON NKANSAH-AMANKRA [facility] 06-24-2024 09:13-0500 Respiratory rate 16 /min HAMILTONSHANE VALERAAH-AMANKRA [facility] 06-24-2024 08:48-0500 Body temperature 97.7 [degF] H[facility]ILTON SIMIANSAH-AMANKRA [facility] 06-24-2024 08:48-0500 Mean blood pressure 86 mm[Hg] HAMILTON NKANSAH-AMANKRA [facility] 06-24-2024 07:00-0500 Heart rate 100 /min H[facility]ILTON SIMIANSAH-AMANKRA [facility] 06-24-2024 06:56-0500 Body temperature 98.24 [degF] H[facility]TON VALERAAH-AMANKRA [facility] 06-21-2024 10:32-0500 Body height 170.18 cm Adamaris Liz [employer]IZATION ENGINEER Work Phone: [facility] 06-21-2024 10:32-0500 Body mass index (BMI) [Ratio] 28.8 kg/m2 Adamaris Liz OPTIMIZATION ENGINEER Work Phone: [facility] 06-21-2024 10:32-0500 Body weight 83.46 kg Adamaris Liz OPTIMIZATION ENGINEER Work Phone: [facility] 06-21-2024 10:32-0500 Diastolic blood pressure 85 mm[Hg] Adamaris Liz OPTIMIZATION ENGINEER Work Phone: [facility] 06-21-2024 10:32-0500 Heart rate 102 /min Adamaris Liz OPTIMIZATION ENGINEER Work Phone: [facility] 06-21-2024 10:32-0500 Systolic blood pressure 133 mm[Hg] Adamaris Liz OPTIMIZATION ENGINEER Work Phone: [facility] 06-18-2024 15:48-0500 Diastolic blood pressure 89 mm[Hg] H[facility]ILTON NKANSAH-AMANKRA [facility] 06-18-2024 15:48-0500 Heart rate 87 /min HAMILTON NKANSAH-AMANKRA [facility] 06-18-2024 15:48-0500 Mean blood pressure 106 mm[Hg] HAMILTON NKANSAH-AMANKRA [facility] 06-18-2024 15:48-0500 Systolic blood pressure 139 mm[Hg] HAMILTON NKANSAH-AMANKRA [facility] 06-18-2024 15:48-0500 Heart rate 59 /min HAMILTON NKANSAH-AMANKRA [facility] 06-18-2024 15:48-0500 SaO2% (BldA) [Mass fraction] 99 % HAMILTON NKANSAH-AMANKRA [facility] 06-18-2024 15:47-0500 Diastolic blood pressure 72 mm[Hg] HAMILTON NKANSAH-AMANKRA [facility] 06-18-2024 15:47-0500 Mean blood pressure 90 mm[Hg] HAMILTON NKANSAH-AMANKRA [facility] 06-18-2024 15:47-0500 Systolic blood pressure 126 mm[Hg] HAMILTON NKANSAH-AMANKRA [facility] 06-11-2024 09:42-0400 Blood Pressure Location HAMILTON NKANSAH-AMANKRA [facility] 06-11-2024 09:42-0400 Diastolic blood pressure 88 mm[Hg] HAMILTON NKANSAH-AMANKRA [facility] 06-11-2024 09:42-0400 Heart rate 103 /min HAMILTON NKANSAH-AMANKRA [facility] 06-11-2024 09:42-0400 Respiratory rate 20 /min H[facility]ILTON NKANSAH-AMANKRA [facility] 06-11-2024 09:42-0400 Systolic blood pressure 149 mm[Hg] H[facility] NKANSAH-AMANKRA [facility] 05-25-2024 10:30-0400 Blood Pressure Location KARON MARK [facility] 05-25-2024 10:30-0400 Diastolic blood pressure 74 mm[Hg] KARON MARK [facility] 05-25-2024 10:30-0400 Heart rate 104 /min KARON MARK [facility] 05-25-2024 10:30-0400 Systolic blood pressure 138 mm[Hg] KARON MARK [facility] 05-19-2024 10:20-0400 Body height 170.18 cm PHYSICIAN NO [facility] 05-19-2024 10:20-0400 Body mass index (BMI) [Ratio] 27.3 kg/m2 PHYSICIAN NO [facility] 05-19-2024 10:20-0400 Body temperature 97.8 [degF] PHYSICIAN NO [facility] 05-19-2024 10:20-0400 Body weight 79.37 kg PHYSICIAN NO [facility] 05-19-2024 10:20-0400 Diastolic blood pressure 95 mm[Hg] PHYSICIAN NO [facility] 05-19-2024 10:20-0400 Heart rate 111 /min PHYSICIAN NO [facility] 05-19-2024 10:20-0400 Respiratory rate 18 /min PHYSICIAN NO [facility] 05-19-2024 10:20-0400 SaO2% (BldA) [Mass fraction] 97 % PHYSICIAN NO [facility] 05-19-2024 10:20-0400 Systolic blood pressure 147 mm[Hg] PHYSICIAN NO [facility] 04-21-2024 09:04-0400 Body mass index (BMI) [Ratio] 27.27 kg/m2 Faiza BURTON Work Phone: [facility] 04-21-2024 09:04-0400 Body weight 78.98 kg Faiza BURTON Work Phone: [facility] 04-21-2024 09:04-0400 Diastolic blood pressure 70 mm[Hg] Faiza BURTON Work Phone: [facility] 04-21-2024 09:04-0400 Systolic blood pressure 120 mm[Hg] Faiza BURTON Work Phone: [facility] 01-30-2024 09:36-0400 Body height 170.18 cm PHYSICIAN NO [facility] 01-30-2024 09:36-0400 Body mass index (BMI) [Ratio] 26.7 kg/m2 PHYSICIAN NO [facility] 01-30-2024 09:36-0400 Body weight 77.56 kg PHYSICIAN NO [facility] 01-30-2024 09:36-0400 Diastolic blood pressure 80 mm[Hg] PHYSICIAN NO [facility] 01-30-2024 09:36-0400 Heart rate 108 /min PHYSICIAN NO [facility] 01-30-2024 09:36-0400 Systolic blood pressure 114 mm[Hg] PHYSICIAN NO [facility] 11-19-2023 13:56-0400 Blood Pressure Location Dieter LOCO [facility] [place] 11-19-2023 13:56-0400 Diastolic blood pressure 92 mm[Hg] Dieter NILL [facility] [place] 11-19-2023 13:56-0400 Heart rate 72 /min Dieter NILL [facility] [place] 11-19-2023 13:56-0400 Respiratory rate 16 /min Dieter NILL [facility] [place] 11-19-2023 13:56-0400 Systolic blood pressure 132 mm[Hg] Dieter NILL [facility] [place] 11-12-2023 10:20-0400 Body height 170.18 cm PHYSICIAN NO [facility] 11-12-2023 10:20-0400 Body mass index (BMI) [Ratio] 28 kg/m2 PHYSICIAN NO [facility] 11-12-2023 10:20-0400 Body weight 81.36 kg PHYSICIAN NO [facility] 11-12-2023 10:20-0400 Diastolic blood pressure 77 mm[Hg] PHYSICIAN NO [facility] 11-12-2023 10:20-0400 Heart rate 124 /min PHYSICIAN NO [facility] 11-12-2023 10:20-0400 Systolic blood pressure 124 mm[Hg] PHYSICIAN NO [facility] 10-22-2023 09:23-0400 Body height 170.18 cm PHYSICIAN NO [facility] 10-22-2023 09:23-0400 Body mass index (BMI) [Ratio] 29.1 kg/m2 PHYSICIAN NO [facility] 10-22-2023 09:23-0400 Body weight 84.36 kg PHYSICIAN NO [facility] 10-22-2023 09:23-0400 Diastolic blood pressure 85 mm[Hg] PHYSICIAN NO [facility] 10-22-2023 09:23-0400 Heart rate 106 /min PHYSICIAN NO [facility] 10-22-2023 09:23-0400 Systolic blood pressure 140 mm[Hg] PHYSICIAN NO [facility] 05-29-2023 14:00-0400 Body height 170.18 cm Helio Barry Other [employer] Other 05-29-2023 14:00-0400 Body mass index (BMI) [Ratio] 29.44 kg/m2 Helio Barry Other [employer] Other 05-29-2023 14:00-0400 Body weight 85.28 kg Helio Barry Other [employer] Other 05-05-2023 08:30-0400 Body height 170.18 cm Seb Barry Other [employer] Other 05-05-2023 08:30-0400 Body mass index (BMI) [Ratio] 29.44 kg/m2 Seb Barry Other [employer] Other 05-05-2023 08:30-0400 Body weight 85.28 kg Seb Barry Other [employer] Other 05-05-2023 08:30-0400 Diastolic blood pressure 82 mm[Hg] Seb Barry Other [employer] Other 05-05-2023 08:30-0400 Systolic blood pressure 128 mm[Hg] Seb Barry Other [employer] Other 04-01-2023 10:00-0400 Body height 170.18 cm Seb Barry Other [employer] Other 04-01-2023 10:00-0400 Body mass index (BMI) [Ratio] 29.13 kg/m2 Seb Barry Other [employer] Other 04-01-2023 10:00-0400 Body weight 84.37 kg Seb Barry Other Drawn to Scale [facility] [employer] Other 04-01-2023 10:00-0400 Diastolic blood pressure 86 mm[Hg] Seb Asha Other [employer] Other 04-01-2023 10:00-0400 Systolic blood pressure 148 mm[Hg] Seb Asha Other Drawn to Scale [facility] [employer] Other Encounters Encounter Date Encounter Type Care Provider Facility Start: 10-12-2024 ambulatory PHYSICIAN NO [facility] Start: 08-26-2024 ambulatory MD HAMILTON MALONE Facility:SERENA Botello Start: 08-18-2024 End: 08-18-2024 Admission to same day surgery center PHYSICIAN [facility] [place] Start: 08-18-2024 End: 08-18-2024 ambulatory PHYSICIAN [facility] Work Phone: Start: 08-18-2024 End: 08-18-2024 ambulatory MD HAMILTON MALONE Facility:[id number] Start: 08-13-2024 End: 08-13-2024 ambulatory MD HAMILTON MALONE Facility:SERENA Perez Start: 08-13-2024 End: 08-13-2024 Patient encounter procedure HAMILTON MALONE [facility] Start: 08-10-2024 Registered Recurring PHYSICIAN BALDOMERO [facility] Start: 08-06-2024 End: 08-06-2024 ambulatory MD HAMILTON MALONE Facility:SERENA Perez Start: 08-06-2024 End: 08-06-2024 Patient encounter procedure HAMILTON MALONE [facility] Start: 07-30-2024 End: 07-30-2024 ambulatory MD HAMILTON MALONE Facility: [place] Start: 07-30-2024 End: 07-30-2024 Patient encounter procedure HAMILTON MALONE [facility] [place] Start: 07-27-2024 Non-patient / Non-visit PHYSICIAN NO [facility] Work Phone: Start: 07-25-2024 End: 07-27-2024 Evaluation and management of inpatient DO Aditya MARIA Facility:[facility] Start: 07-25-2024 Non-patient / Non-visit PHYSICIAN NO [facility] Work Phone: Start: 07-24-2024 Non-patient / Non-visit PHYSICIAN NO [facility] Work Phone: Start: 07-23-2024 End: 07-23-2024 ambulatory HAMILTON MALONE Facility: [place] Start: 07-23-2024 End: 07-23-2024 Patient encounter procedure HAMILTON MALONE [facility] [place] Start: 07-22-2024 End: 07-22-2024 Admission to same day surgery center HAMILTON MALONE [facility] Start: 07-22-2024 End: 07-22-2024 ambulatory HAMILTON MALONE Facility:[facility] Start: 07-05-2024 End: 07-07-2024 Pre-admission assessment HAMILTON MALNOE [facility] Start: 07-05-2024 End: 07-05-2024 ambulatory HAMILTON NKANSAH-AMANKRA Facility:[facility] Start: 07-05-2024 End: 07-05-2024 Patient encounter procedure HAMILTON SIMIANSAH-AMANKRA [facility] Start: 06-24-2024 Patient encounter status PHYSICIAN N O [facility] Start: 06-24-2024 End: 06-24-2024 Admission to same day surgery center HAMILTON VALERAAH-AMANKRA [facility] Start: 06-24-2024 End: 06-24-2024 ambulatory HAMILTON NKANSAH-AMANKRA Facility:[facility] Start: 06-21-2024 End: 06-21-2024 ambulatory [facility] Work Phone: Start: 06-21-2024 End: 06-21-2024 Encounter for other preprocedural examination PHYSICIAN BALDOMERO [facility] Start: 06-21-2024 End: 06-21-2024 Patient encounter procedure Adamaris Hill APRN Work Phone: [facility] Work Phone: Start: 06-18-2024 End: 06-18-2024 ambulatory HAMILTON SIMIANSAH-AMANKRA Facility:[facility] Start: 06-18-2024 End: 06-18-2024 Patient encounter procedure HAMILTON SIMIANSAH-AMANKRA [facility] Start: 06-14-2024 Registered Recurring Adamaris gomez OPTIMIZATION ENGINEER Work Phone: [facility] Start: 06-11-2024 End: 06-11-2024 ambulatory HAMILTON NKANSAH-AMANKRA Facility:SERENA Perez Start: 06-11-2024 End: 06-11-2024 Patient encounter procedure HAMILTON NKANSAH-AMANKRA [facility] [place] Start: 06-04-2024 End: 06-04-2024 Departed Referred Adamaris Hill APRN Work Phone: [facility] [place] Work Phone: Start: 06-04-2024 End: 06-04-2024 ambulatory PHYSICIAN NO [facility] Work Phone: Start: 06-04-2024 End: 06-04-2024 Patient encounter procedure PHYSICIAN NO [facility] Work Phone: Start: 05-26-2024 Non-patient / Non-visit PHYSICIAN NO [facility] Work Phone: Start: 05-25-2024 End: 05-25-2024 ambulatory KARON FLORES Facility:[facility] Start: 05-25-2024 End: 05-25-2024 Patient encounter procedure KARON FLORES [facility] Start: 05-19-2024 End: 05-19-2024 Departed Referred PHYSICIAN NO [facility] [place] Work Phone: Start: 05-19-2024 End: 05-19-2024 ambulatory PHYSICIAN NO [facility] Work Phone: Start: 05-19-2024 End: 05-19-2024 Patient encounter procedure PHYSICIAN NO [facility] Work Phone: Start: 05-04-2024 End: 05-05-2024 Clinisync Result Encounter Faiza BURTON Work Phone: [facility] External [facility] Unsolicited Start: 05-04-2024 End: 05-05-2024 Clinisync Result Encounter Faiza BURTON Work Phone: [facility] External [facility] Unsolicited Start: 05-04-2024 Non-patient / Non-visit PHYSICIAN NO [facility] Work Phone: Start: 05-04-2024 Registered Recurring PHYSICIAN NO RONNIE [facility] Start: 04-21-2024 End: 04-21-2024 [...] Start: 04-21-2024 Non-patient / Non-visit PHYSICIAN NO [facility] Work Phone: Start: 04-21-2024 End: [...] Start: 04-09-2024 Non-patient / Non-visit PHYSICIAN NO [facility] Work Phone: Start: 02-26-2024 End: 02-26-2024 ambulatory Beryl Henderson [facility] Start: 02-26-2024 End: 02-26-2024 Patient encounter procedure Beryl Henderson [facility] Start: 01-30-2024 End: 01-30-2024 ambulatory PHYSICIAN NO [facility] Work Phone: Start: 01-30-2024 End: 01-30-2024 Patient encounter procedure PHYSICIAN NO [facility] Work Phone: Start: 01-14-2024 End: 01-14-2024 ambulatory Dieter R NILL Facility:[facility] Start: 01-14-2024 End: 01-14-2024 Patient encounter procedure Dieter R NILL [facility] Start: 01-13-2024 ambulatory Dieter R NILL Facility :[facility] Start: 12-31-2023 End: 12-31-2023 ambulatory PHYSICIAN NO [facility] Work Phone: Start: 12-31-2023 End: 12-31-2023 Departed Referred PHYSICIAN NO [facility] Start: 12-31-2023 End: 12-31-2023 ambulatory Dieter R NILL Facility:[id number] Start: 12-09-2023 Registered Recurring PHYSICIAN NO [facility] Start: 11-19-2023 End: 11-19-2023 ambulatory Dieter R NILL Facility:[facility] Start: 11-19-2023 End: 11-19-2023 Patient encounter procedure Dieter R NILL General Surgery Nill/Said [facility] Start: 11-18-2023 Non-patient / Non-visit PHYSICIAN NO [facility] Work Phone: Start: 11-17-2023 ambulatory Dieter NILL Facility:[facility] Start: 11-14-2023 ambulatory Dieter LOCO Facility:[facility] Start: 11-12-2023 End: 11-12-2023 ambulatory PHYSICIAN NO [facility] Work Phone: Start: 11-12-2023 End: 11-12-2023 Patient encounter procedure PHYSICIAN NO [facility] Work Phone: Start: 11-04-2023 Registered Recurring PHYSICIAN NO [facility] Start: 10-22-2023 Patient encounter status PHYSICIAN N O [facility] Start: 10-22-2023 End: 10-22-2023 Encounter for general adult medical examination without abnormal findings PHYSICIAN NO [facility] Start: 10-22-2023 End: 10-22-2023 Patient encounter procedure PHYSICIAN NO [facility] Work Phone: Start: 09-09-2023 Registered Recurring PHYSICIAN NO RONNIE [facility] Start: 05-30-2023 End: 05-30-2023 ambulatory Helio Barry Other [employer] Other Start: 05-30-2023 Telephone encounter Helio Barry [facility] [employer]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 Start: 05-29-2023 Office outpatient ne w 30 minutes Helio Barry [facility] Start: 05-29-2023 End: 05-29-2023 ambulatory MD Seb Barry Work Phone: [facility] Work Phone: Start: 05-29-2023 End: 05-29-2023 Patient encounter procedure MD Seb Barry Work Phone: [facility] [place] Work Phone: Start: 05-16-2023 End: 05-16-2023 ambulatory Seb Barry Other [employer] Other Start: 05-16-2023 Telephone encounter Seb Barry [facility] Start: 05-05-2023 End: 05-05-2023 ambulatory Seb Barry Other [employer] Other Start: 05-05-2023 Office outpatient vi sit 15 minutes Seb Barry [facility] Start: 04-07-2023 End: 04-07-2023 ambulatory Seb Barry Other [employer] Other Start: 04-07-2023 Telephone encounter Seb Barry [facility] Start: 04-01-2023 End: 04-01-2023 ambulatory Seb Barry Other [employer] Other Start: 04-01-2023 Office outpatient vi sit 15 minutes Seb Barry [facility] Start: 12-27-2022 ambulatory GOLDY GLOVER Facility: [facility] Start: 12-23-2022 End: 12-23-2022 ambulatory Goldy Glover Other [employer] Other Start: 12-23-2022 Office outpatient ne w 45 minutes Goldy Glover [facility] [place] Start: 12-06-2022 Telephone encounter Seb Barry [facility] Start: 12-06-2022 End: 12-07-[address] SEB BARRY [employer] Other Start: 11-26-2022 End: 11-27-2022 ambulatory REGULO HINDS Facility:[facility] Start: 11-14-2022 End: 11-15-[address] SEB BARRY Facility:[facility] Start: 05-17-2022 Encounter for genera l adult medical examination without abnormal findings DR SEB BARRY [facility] Start: 05-15-2022 End: 05-16-[address] SEB BARRY Facility:[facility] Start: 05-15-2022 End: 05-16-2022 Encounter for general adult medical examination without abnormal findings DR SEB BARRY Facility:[facility] Start: 05-14-2022 Adult health examination Fidelina Barry Other [employer] Other Start: 04-18-2022 End: 04-18-2022 ambulatory Paresh Marily Other [employer] Other Start: 04-18-2022 Telephone encounter Paresh Marily [facility] Start: 02-27-2022 End: 02-27-2022 ambulatory Paresh Marily Other [employer] Other Start: 02-27-2022 Telephone encounter Paresh Marily [facility] 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 Start: 02-05-2022 ambulatory PARESH MARILY Facility:[facility] Start: 12-13-2021 End: 12-13-2021 ambulatory Paresh Marily Other [employer] Other Start: 12-13-2021 Telephone encounter Paresh Marily [facility] Start: 09-19-2021 End: 09-19-2021 ambulatory Paresh Marily Other [employer] Other Start: 09-19-2021 Telephone encounter Paresh Marily [facility] Start: 09-05-2021 End: 09-05-2021 ambulatory Paresh Marily Other [employer] Other Start: 09-05-2021 Telephone encounter Paresh Marily [facility] Procedures Date Procedure Procedure Detail Performing Clinician Start: 08-18-2024 Cystoscopy PHYSICIAN NO FAMILY Start: 07-22-2024 Cystoscopy HAMILTON NK DAGMAR-AMANKRA Start: 06-24-2024 Cystoscopy HAMILTON NK DAGMAR-AMANKRA Start: 06-04-2024 Urine culture Adamaris Gr ob OPTIMIZATION ENGINEER Work Phone: Start: 05-19-2024 Bacteria identified in Urine by Culture PHYSICIAN NO FAMILY Start: 05-19-2024 Urine culture Adamaris Gr ob OPTIMIZATION ENGINEER Work Phone: Start: 05-04-2024 HIV AB/P24 AG WITH REFLEX Faiza BURTON Work Phone: Start: 04-21-2024 IGP,APTIMA HPV,AGE GDLN Faiza BURTON Work Phone: Start: 04-21-2024 End: 04-21-2024 Microscopic observation [Identifier] in Cervix by Cyto stain Faiza BURTON Work Phone: Start: 04-21-2024 URETHRITIS/DISCHARGE PLUS VAGINITIS (HTRX) Faiza BURTON Work Phone: Start: 05-29-2023 X-ray of lumbar spin e, six views including bending views MD Seb Barry Work Phone: Start: 09-02-2019 Mammography Faiza BURTON Work Phone: H/O: surgery Status post surgery PHYSICIA N NO FAMILY History of augmentat ion of breast KARON FLORES History of bilateral breast implants Dieter BUSTOSL History of nasal sin us surgery Dieter NILL Ligation of fallopia n tube Dieter NILL Screening for malign ant neoplasm of breast Seb Barry Other Screening for malign ant neoplasm of colon Seb Barry Other Stapedectomy Dieter BUSTOSL Plan of Treatment Date Care Activity Detail Author Start: 04-21-2029 Screening for malignant neoplasm of cervix [facility] Start: 04-25-2025 End: 04-25-2025 Patient encounter procedure 04/25/2025 9:00 AM EDT Office Visit [facility] [address] [place] [address] Faiza Almendarez PA [address] [place] [address] [facility] Start: 08-18-2024 End: 08-18-2024 [facility] Start: 06-04-2024 [facility] culture [facility] Start: 05-19-2024 Bacteria identified in Urine by Culture Urine [facility] Start: 05-19-2024 Urine culture [facility] Start: 04-21-2024 End: 04-21-2025 DXA Skeletal system Views for bone density DEXA bone density Imaging Routine Postmenopausal state Expected: 04/21/2024 (Approximate), Expires: 04/21/2025 [facility] Comment on above: Expected: 04/21/2024 (Approximate), Expires: 04/21/2025 Start: 04-21-2024 End: 06-21-2025 MG Breast - bilateral Screening Bilateral screening mammogram Imaging Routine Breast cancer screening by mammogram Expected: 04/21/2024, Expires: 06/21/2025 [facility] Comment on above: Expected: 04/21/2024 , Expires: 06/21/2025 Start: 04-11-2024 Influenza vaccination Influenza Vacc ine (#1) [facility] Start: 11-12-2023 Patient referral [facility] Work Phone: Start: 09-02-2020 Screening for malignant neoplasm of breast Mammogram [facility] Start: 1992 Screening for malignant neoplasm of cervix [facility] Start: 1983 Screening for malignant neoplasm of cervix Pap Smear [facility] Start: 1962 Screening for malignant neoplasm of colon [facility] CHLAMYDIA TRACHOMATI S (GENITO/STI) CHLAMYDIA TRACHOMATIS (GENITO/STI) Lab Routine Exposure to STD Vaginal discharge Ordered: 04/21/2024 [facility] Comment on above: Ordered: 04/21/2024 Hepatitis B virus surface Ag [Presence] in Serum or Plasma by Immunoassay Hepatitis B surface antigen Lab Routine Sexually transmitted disease exposure Ordered: 04/21/2024 [facility] Comment on above: Ordered: 04/21/2024 HIV-1/HIV-2 antigen/antibody combination immunoassay HIV-1 and HIV-2 antibodies Lab Routine Sexually transmitted disease exposure Ordered: 04/21/2024 [facility] Comment on above: Ordered: 04/21/2024 MG Breast - bilatera l [facility] Neisseria gonorrhoea e DNA [Presence] in Unspecified specimen by LILLY with probe detection Neisseria gonorrhea DNA probe, direct Lab Routine Exposure to STD Vaginal discharge Ordered: 04/21/2024 [facility] Comment on above: Ordered: 04/21/2024 Patient Education [facility] Work Phone: Patient referral [facility] Work Phone: Reagin Ab [Presence] in Serum by RPR RPR Lab Routine Sexually transmitted disease exposure Ordered: 04/21/2024 [facility] Comment on above: Ordered: 04/21/2024 SURESWAB(R) ADVANCED VAGINITIS PLUS, TMA SURESWAB(R) ADVANCED VAGINITIS PLUS, TMA Pathology and Cytology Routine Exposure to STD Vaginal discharge Ordered: 04/21/2024 [facility] Work Phone: Comment on above: Ordered: 04/21/2024 THIN PREP TIS PAP AN D HR HPV DNA THIN PREP TIS PAP AND HR HPV DNA Pathology and Cytology Routine Well woman exam with routine gynecological exam Ordered: 04/21/2024 [facility] Comment on above: Ordered: 04/21/2024 Immunizations Immunization Date Immunization Notes Care Provider Ronnie bran 10-12-2022 influenza virus vaccine, unspecified formulation Dieter LOCO [facility] [place] 10-12-2022 influenza, injectabl e, quadrivalent, preservative free Seb Barry Other [facility] 02-19-2022 diphtheria, tetanus toxoids and acellular pertussis vaccine, unspecified formulation Seb Barry Other [facility] 02-19-2022 tetanus toxoid, reduced diphtheria toxoid, and acellular pertussis vaccine, adsorbed Seb Barry Other [facility] 08-07-2021 COVID-19 Vaccine Moderna - Documentation Purposes Only Seb Barry Other [facility] 05-28-2021 influenza virus vaccine, split virus (incl. purified surface antigen) Seb Barry Other [employer] Other 05-28-2021 influenza virus vaccine, unspecified formulation PHYSICIAN [facility] 12-09-2020 COVID-19 Vaccine Moderna - Documentation Purposes Only Seb Barry Other [facility] 11-11-2020 COVID-19 Vaccine Moderna - Documentation Purposes Only Seb Barry Other [facility] Payers Date Payer Category Payer Managed Care HMO (unspecified) [employer]ANE SOLORIOBlazeSHANE [id number] 2021-Present [address] [place] [address] O [id number] 1962 Unknown [id number] 2.16.840.1.844234.3.579.2 .593 1962 Unknown [id number] 2.16.840.1.221176.3.579.2 .593 1962 Unknown [id number] 2.16.840.1.324771.3.579.2 .593 1962 Unknown [id number] 2.16.840.1.260389.3.579.2 .593 1962 Unknown [id number] 2.16.840.1.741006.3.579.2 .593 1962 Unknown [id number] 2.16.840.1.190988.3.579.2 .593 1962 Unknown [id number] 2.16.840.1.352079.3.579.2 .1259 1962 Unknown [id number] 2.16.840.1.322795.3.579.2 .727 1962 Unknown [id number] 2.16.840.1.746423.3.579.2 .727 1962 Unknown [id number] 2.16.840.1.126846.3.579.2 .727 1962 Unknown [id number] 2.16.840.1.963695.3.579.2 .727 1962 Unknown [id number] 2.16.840.1.905061.3.579.2 .1962 Unknown [id number] 2.16.840.1.736169.3.579.2 .7 1962 Unknown [id number] 2.16.840.1.685139.3.579.2 .1962 Unknown [id number] 2.16.840.1.644187.3.579.2 .1962 Unknown [id number] 2.16.840.1.688726.3.579.2 .1962 Unknown [id number] 2.16.840.1.973276.3.579.2 1962 Unknown [id number] 2.16.840.1.292011.3.579.2 1962 Unknown [id number] 2.16.840.1.629993.3.579.2 1962 Unknown [id number] 2.16.840.1.713227.3.579.2 1962 Unknown [id number] 2.16.840.1.037893.3.579.2 1962 Unknown [id number] 2.16.840.1.488602.3.579.2 1962 Unknown [id number] 2.16.840.1.387390.3.579.2 .1962 Unknown [id number] 2.16.840.1.419755.3.579.2 1962 Unknown [id number] 2.16.840.1.637145.3.579.2 .1962 Unknown [id number] 2.16.840.1.309076.3.579.2 1962 Unknown [id number] 2.16.840.1.085717.3.579.2 .727 1962 Unknown [id number] 2.16.840.1.291548.3.579.2 .727 1959 Private Health Insurance [id number] 2.16.840.1.163962.19 1959 Private Health Insurance [id number] Self-pay [facility] [id number] 2.16.840.1.564264.19 Private Health Insurance [id number] Unknown [id number] 2.16.840.1.368386.3.579.2 .531 Unknown [id number] 2.16.840.1.126394.3.579.2 .531 Unknown [id number] 2.16.840.1.455309.3.579.2 .531 Unknown [id number] 2.16.840.1.147934.3.579.2 .531 Social History Date Type Detail Facility Sex Assigned At [facility] Start: 1960 Sex Assigned At Female F [facility] Start: 05-29-2023 End: 08-18-2024 Tobacco smoking status NHIS Never smoked tobacco (finding) [facility] Tobacco smoking status Never General Surgery [facility] Start: 06-21-2024 End: 08-18-2024 Sex Female (finding) [facility] Tobacco smoking status MOIS Tobacco smoking consumption unknown [facility] Start: 1960 Sex assigned at Not on file N [facility] Medical Equipment Procedure Code Equipment Code Equipment Origin al Text Equipment Identifier Dates HAMILTON CABRERA MD 07/22/24 Unknown Other FDA Start: 07-22-2024 HAMILTON CABRERA MD 07/22/24 Unknown Other FDA Start: 07-22-2024 HAMILTON CABRERA MD 07/22/24 Unknown Other FDA Start: 07-22-2024 TVT SLING HAMILTON MALONE MD 07/22/24 Unknown Other FDA Start: 07-22-2024 TVT SLING HAMILTON MALONE MD 07/22/24 Unknown Other FDA Start: 07-22-2024 TVT SLING HAMILTON MALONE MD 07/22/24 Unknown Other FDA Start: 07-22-2024 Goals Date Patient Goal Desired Activity /State Functional Status Date Assessment Result Facility 08-13-[address]omatic Af ter Exposure to Contagion Telehealth Patient [facility] 08-06-2024 Functional Status N/A [facility] 07-30-2024 Functional Status N/A [facility] 07-25-2024 Functional Status No [facility] 07-06-2024 Functional Status No [facility] 07-05-2024 Functional Status N/A [facility] 06-18-2024 Functional Status No [facility] 06-11-2024 Functional Status N/A [facility] 05-25-2024 Functional Status N/A [facility] 11-19-2023 Functional Status N/A [facility] Clinical Notes 12-13-2021 to 08-13-2024 Note Date & Type Note Facility 08-13-2024 Hospital Discharg e instructions Patient Education 08/13/2024 12:17:41 Urethral Vaginal Sling Urethral Vaginal Sling A [...] including vitamins, herbs, eye drops, creams, and bnnk-pak-zjfzpns medicines. Any problems you or family members [...] provider tells you to take them. Taking oljg-ccj-fsuiola medicines, vitamins, herbs, and supplements. Surgery safety [...] provider. Document Revised: 03/02/2021 Document Reviewed: 03/02/2021 [employer] Patient Education 2023 [employer]. Follow Up Care 08/09/2024 13:50:24 With:GABBY RAMIREZ, HAMILTON, URL Address: When: Unknown Comments:sched loosening of MUS [facility] 08-13-2024 Note Patient Education Obstetrics and Gynecology Urethral [...] including vitamins, herbs, eye drops, creams, and jtpk-fzb-wcrlqsq medicines. ??? Any problems you or family [...] tells you to take them. ??? Taking eccw-qae-yzcuzwd medicines, vitamins, herbs, and supplements. Surgery safety [...] your bladder w (more content not included)... [facility] 08-06-2024 Hospital [facility] hospital instructions Patient Education 08/06/2024 09:37:06 Acute Urinary Retention, Female Acute Urinary Retention, Female Acute urinary retention is a condition in which a person is unable to pass urine or can only pass a little urine. This condition can happen suddenly and last for a short time. If left untreated, it can become long-term (chronic) and result in kidney damage or other serious complications. What are the causes? This condition may be caused by: Obstruction or narrowing of the tube that drains the bladder (urethra). This may be caused by surgery, problems with nearby organs, or injury to the bladder or urethra. Problems with the nerves in the bladder. Pelvic organ prolapse. Tumors in the area of the pelvis, bladder, or urethra. Vaginal childbirth. Bladder or urinary tract infection. Constipation. Certain medicines. What increases the risk? This condition is more likely to develop in women over age 50. Other chronic health conditions can increase the risk of acute urinary retention. These include: Diseases such as multiple sclerosis. Spinal cord injuries. Diabetes. Degenerative cognitive conditions, such as delirium or dementia. Psychological conditions. A woman may hold her urine due to trauma or because she does not want to use the bathroom. History of preexisting urinary retention. History of prior pelvic surgery, incontinence surgery, or radical pelvic surgery. What are the signs or symptoms? Symptoms of this condition include: Trouble urinating. Pain in the lower abdomen. How is this diagnosed? This condition is diagnosed based on a physical exam and your medical history. You may also have other tests, including: An ultrasound of the bladder or kidneys or both. Blood tests. A urine analysis. Additional tests may be needed, such as a CT scan, MRI, and kidney or bladder function tests. How is this treated? Treatment for this condition may include: Medicines. Placing a thin, sterile tube (catheter) into the bladder to drain urine out of the body. This is called an indwelling urinary catheter. After it is inserted, the catheter is held in place with a small balloon that is filled with sterile water. Urine drains from the catheter into a collection bag outside of the body. Behavioral therapy. Treatment for other conditions. If needed, you may be treated in the hospital for kidney function problems or to manage other complications. Follow these instructions at home: Medicines Take xvbk-mjw-jjntgpx and prescription medicines only as told by your health care provider. Avoid certain medicines, such as decongestants, antihistamines, and some prescription medicines. Do not take any medicine unless your health care provider approves. If you were prescribed an antibiotic medicine, take it as told by your health care provider. Do not stop using the antibiotic even if you start to feel better. General instructions Do not use any products that contain nicotine or tobacco. These products include cigarettes, chewing tobacco, and vaping devices, such as e-cigarettes. If you need help quitting, ask your health care provider. Drink enough fluid to keep your urine pale yellow. If you have an indwelling urinary catheter, follow the instructions from your health care provider. Monitor any changes in your symptoms. Tell your health care provider about any changes. If instructed, monitor your blood pressure at home. Report changes as told by your health care provider. Keep all follow-up visits. This is important. Contact a health care provider if: You have uncomfortable bladder contractions that you cannot control (spasms). You leak urine with the spasms. Get help right away if: You have chills or a fever. You have blood in your urine. You have a catheter and the following happens: ?Your catheter stops draining urine. ?Your catheter falls out. Summary Acute urinary retention is a condition in which a person is unable to pass urine or can only pass a little urine. If left untreated, this can result in kidney damage or other serious complications. One cause of this condition may be obstruction or narrowing of the tube that drains the bladder (urethra). This may be caused by surgery, problems with nearby organs, or injury to the bladder or urethra. Treatment may include medicines and placement of an indwelling urinary catheter. Monitor any changes in your symptoms. Tell your health care provider about any changes. This information is not intended to replace advice given to you by your health care provider. Make sure you discuss any questions you have with your health care provider. Document Revised: 04/18/2021 Document Reviewed: 04/18/2021 [employer] Patient Education 2023 [employer]. Follow Up Care 08/02/2024 14:16:42 With:HAMILTON MALONE MD, URL Address: When: Unknown [facility] 08-06-2024 Note Patient Education Obstetrics and Gynecology Acute Urinary Retention, Female Acute urinary retention is a condition in which a person is unable to pass urine or can only pass a little urine. This condition can happen suddenly and last for a short time. If left untreated, it can become long-term (chronic) and result in kidney damage or other serious complications. What are the causes? This condition may be caused by: ??? Obstruction or narrowing of the tube that drains the bladder (urethra). This may be caused by surgery, problems with nearby organs, or injury to the bladder or urethra. ??? Problems with the nerves in the bladder. ??? Pelvic organ prolapse. ??? Tumors in the area of the pelvis, bladder, or urethra. ??? Vaginal childbirth. ??? Bladder or urinary tract infection. ??? Constipation. ??? Certain medicines. What increases the risk? This condition is more likely to develop in women over age 50. Other chronic health conditions can increase the risk of acute urinary retention. These include: ??? Diseases such as multiple sclerosis. ??? Spinal cord injuries. ??? Diabetes. ??? Degenerative cognitive conditions, such as delirium or dementia. ??? Psychological conditions. A woman may hold her urine due to trauma or because she does not want to use the bathroom. ??? History of preexisting urinary retention. ??? History of prior pelvic surgery, incontinence surgery, or radical pelvic surgery. What are the signs or symptoms? Symptoms of this condition include: ??? Trouble urinating. ??? Pain in the lower abdomen. How is this diagnosed? This condition is diagnosed based on a physical exam and your medical history. You may also have other tests, including: ??? An ultrasound of the bladder or kidneys or both. ??? Blood tests. ??? A urine analysis. ??? Additional tests may be needed, such as a CT scan, MRI, and kidney or bladder function tests. How is this treated? Treatment for this condition may include: ??? Medicines. ??? Placing a thin, sterile tube (catheter) into the bladder to drain urine out of the body. This is called an indwelling urinary catheter. After it is inserted, the catheter is held in place with a small balloon that is filled with sterile water. Urine drains from the catheter into a collection bag outside of the body. ??? Behavioral therapy. ??? Treatment for other conditions. If needed, you may be treated in the hospital for kidney function problems or to manage other complications. Follow these instructions at home: Medicines ??? Take ohrv-plj-jcdajou and prescription medicines only as told by your health care provider. Avoid certain medicines, such as decongestants, antihistamines, and some prescription medicines. Do not take any medicine unless your health care provider approves. ??? If you were prescribed an antibiotic medicine, take it as told by your health care provider. Do not stop using the antibiotic even if you start to feel better. General instructions ??? Do not use any products that contain nicotine or tobacco. These products include cigarettes, chewing tobacco, and vaping devices, such as e-cigarettes. If you need help quitting, ask your health care provider. ??? Drink enough fluid to keep your urine pale yellow. ??? If you have an indwelling urinary catheter, follow the instructions from your health care provider. ??? Monitor any changes in your symptoms. Tell your health care provider about any changes. ??? If instructed, monitor your blood pressure at home. Report changes as told by your health care provider. ??? Keep all follow-up visits. This is important. Contact a health care provider if: ??? You have uncomfortable bladder contractions that you cannot control (spasms). ??? You leak urine with the spasms. Get help right away if: ??? You have chills or a fever. ??? You have blood in your urine. ??? You have a catheter and the following happens: ? Your catheter stops draining urine. ? Your catheter falls out. Summary ??? Acute urinary retention is a condition in which a person is unable to pass urine or can only pass a little urine. If left untreated, this can result in kidney damage or other serious complications. ??? One cause of this condition may be obstruction or narrowing of the tube that drains the bladder (urethra). This may be caused by surgery, problems with nearby organs, or injury to the bladder or urethra. ??? Treatment may include medicines and placement of an indwelling urinary catheter. ??? Monitor any changes in your symptoms. Tell your health care provider about any changes. This information is not intended to replace advice given to you by your health care provider. Make sure you discuss any questions you have with your health care provider. Document Revised: 04/18/2021 Document Reviewed: 04/18/2021 [employer] Patient Education ? 2023 [employer]. [facility] 07-30-2024 Hospital Discharg e instructions Patient Education 07/30/2024 10:24:20 Acute Urinary Retention, Female Acute Urinary Retention, Female Acute urinary retention is a condition in which a person is unable to pass urine or can only pass a little urine. This condition can happen suddenly and last for a short time. If left untreated, it can become long-term (chronic) and result in kidney damage or other serious complications. What are the causes? This condition may be caused by: Obstruction or narrowing of the tube that drains the bladder (urethra). This may be caused by surgery, problems with nearby organs, or injury to the bladder or urethra. Problems with the nerves in the bladder. Pelvic organ prolapse. Tumors in the area of the pelvis, bladder, or urethra. Vaginal childbirth. Bladder or urinary tract infection. Constipation. Certain medicines. What increases the risk? This condition is more likely to develop in women over age 50. Other chronic health conditions can increase the risk of acute urinary retention. These include: Diseases such as multiple sclerosis. Spinal cord injuries. Diabetes. Degenerative cognitive conditions, such as delirium or dementia. Psychological conditions. A woman may hold her urine due to trauma or because she does not want to use the bathroom. History of preexisting urinary retention. History of prior pelvic surgery, incontinence surgery, or radical pelvic surgery. What are the signs or symptoms? Symptoms of this condition include: Trouble urinating. Pain in the lower abdomen. How is this diagnosed? This condition is diagnosed based on a physical exam and your medical history. You may also have other tests, including: An ultrasound of the bladder or kidneys or both. Blood tests. A urine analysis. Additional tests may be needed, such as a CT scan, MRI, and kidney or bladder function tests. How is this treated? Treatment for this condition may include: Medicines. Placing a thin, sterile tube (catheter) into the bladder to drain urine out of the body. This is called an indwelling urinary catheter. After it is inserted, the catheter is held in place with a small balloon that is filled with sterile water. Urine drains from the catheter into a collection bag outside of the body. Behavioral therapy. Treatment for other conditions. If needed, you may be treated in the hospital for kidney function problems or to manage other complications. Follow these instructions at home: Medicines Take dxuo-gbq-vcqyoue and prescription medicines only as told by your health care provider. Avoid certain medicines, such as decongestants, antihistamines, and some prescription medicines. Do not take any medicine unless your health care provider approves. If you were prescribed an antibiotic medicine, take it as told by your health care provider. Do not stop using the antibiotic even if you start to feel better. General instructions Do not use any products that contain nicotine or tobacco. These products include cigarettes, chewing tobacco, and vaping devices, such as e-cigarettes. If you need help quitting, ask your health care provider. Drink enough fluid to keep your urine pale yellow. If you have an indwelling urinary catheter, follow the instructions from your health care provider. Monitor any changes in your symptoms. Tell your health care provider about any changes. If instructed, monitor your blood pressure at home. Report changes as told by your health care provider. Keep all follow-up visits. This is important. Contact a health care provider if: You have uncomfortable bladder contractions that you cannot control (spasms). You leak urine with the spasms. Get help right away if: You have chills or a fever. You have blood in your urine. You have a catheter and the following happens: ?Your catheter stops draining urine. ?Your catheter falls out. Summary Acute urinary retention is a condition in which a person is unable to pass urine or can only pass a little urine. If left untreated, this can result in kidney damage or other serious complications. One cause of this condition may be obstruction or narrowing of the tube that drains the bladder (urethra). This may be caused by surgery, problems with nearby organs, or injury to the bladder or urethra. Treatment may include medicines and placement of an indwelling urinary catheter. Monitor any changes in your symptoms. Tell your health care provider about any changes. This information is not intended to replace advice given to you by your health care provider. Make sure you discuss any questions you have with your health care provider. Document Revised: 04/18/2021 Document Reviewed: 04/18/2021 [employer] Patient Education 2023 [employer]. Follow Up Care 07/27/2024 11:12:51 With:GABBY RAMIREZ, HAMILTON, JAYY Address: When:Within 4 Week(s) Comments:w [facility] 07-30-2024 Note Patient Education Obstetrics and Gynecology Acute Urinary Retention, Female Acute urinary retention is a condition in which a person is unable to pass urine or can only pass a little urine. This condition can happen suddenly and last for a short time. If left untreated, it can become long-term (chronic) and result in kidney damage or other serious complications. What are the causes? This condition may be caused by: ??? Obstruction or narrowing of the tube that drains the bladder (urethra). This may be caused by surgery, problems with nearby organs, or injury to the bladder or urethra. ??? Problems with the nerves in the bladder. ??? Pelvic organ prolapse. ??? Tumors in the area of the pelvis, bladder, or urethra. ??? Vaginal childbirth. ??? Bladder or urinary tract infection. ??? Constipation. ??? Certain medicines. What increases the risk? This condition is more likely to develop in women over age 50. Other chronic health conditions can increase the risk of acute urinary retention. These include: ??? Diseases such as multiple sclerosis. ??? Spinal cord injuries. ??? Diabetes. ??? Degenerative cognitive conditions, such as delirium or dementia. ??? Psychological conditions. A woman may hold her urine due to trauma or because she does not want to use the bathroom. ??? History of preexisting urinary retention. ??? History of prior pelvic surgery, incontinence surgery, or radical pelvic surgery. What are the signs or symptoms? Symptoms of this condition include: ??? Trouble urinating. ??? Pain in the lower abdomen. How is this diagnosed? This condition is diagnosed based on a physical exam and your medical history. You may also have other tests, including: ??? An ultrasound of the bladder or kidneys or both. ??? Blood tests. ??? A urine analysis. ??? Additional tests may be needed, such as a CT scan, MRI, and kidney or bladder function tests. How is this treated? Treatment for this condition may include: ??? Medicines. ??? Placing a thin, sterile tube (catheter) into the bladder to drain urine out of the body. This is called an indwelling urinary catheter. After it is inserted, the catheter is held in place with a small balloon that is filled with sterile water. Urine drains from the catheter into a collection bag outside of the body. ??? Behavioral therapy. ??? Treatment for other conditions. If needed, you may be treated in the hospital for kidney function problems or to manage other complications. Follow these instructions at home: Medicines ??? Take szrk-gle-nbutfzp and prescription medicines only as told by your health care provider. Avoid certain medicines, such as decongestants, antihistamines, and some prescription medicines. Do not take any medicine unless your health care provider approves. ??? If you were prescribed an antibiotic medicine, take it as told by your health care provider. Do not stop using the antibiotic even if you start to feel better. General instructions ??? Do not use any products that contain nicotine or tobacco. These products include cigarettes, chewing tobacco, and vaping devices, such as e-cigarettes. If you need help quitting, ask your health care provider. ??? Drink enough fluid to keep your urine pale yellow. ??? If you have an indwelling urinary catheter, follow the instructions from your health care provider. ??? Monitor any changes in your symptoms. Tell your health care provider about any changes. ??? If instructed, monitor your blood pressure at home. Report changes as told by your health care provider. ??? Keep all follow-up visits. This is important. Contact a health care provider if: ??? You have uncomfortable bladder contractions that you cannot control (spasms). ??? You leak urine with the spasms. Get help right away if: ??? You have chills or a fever. ??? You have blood in your urine. ??? You have a catheter and the following happens: ? Your catheter stops draining urine. ? Your catheter falls out. Summary ??? Acute urinary retention is a condition in which a person is unable to pass urine or can only pass a little urine. If left untreated, this can result in kidney damage or other serious complications. ??? One cause of this condition may be obstruction or narrowing of the tube that drains the bladder (urethra). This may be caused by surgery, problems with nearby organs, or injury to the bladder or urethra. ??? Treatment may include medicines and placement of an indwelling urinary catheter. ??? Monitor any changes in your symptoms. Tell your health care provider about any changes. This information is not intended to replace advice given to you by your health care provider. Make sure you discuss any questions you have with your health care provider. Document Revised: 04/18/2021 Document Reviewed: 04/18/2021 [employer] Patient Education ? 2023 [employer] [facility] 07-27-2024 Evaluation + Plan note Extrac sheeba from: Title:Discharge Note Author:Eri WALDROP MD D ate:07/27/24 Stable Discharge To, Anticipated II [...] Within 5 to 7 days [facility] [place] [address] [phone] Business (1) Additional Instructions: Call for followup appointment SEB BARRY Within 5 to [address] [place] [address]- Business (1) Additional Instructions: Call for followup [...] Ordered: [facility] Hospital Care/Day Moderate 35 Minutes 41935 2. Acute kidney injury (N17.9: Acute kidney failure, unspecified) Acute kidney injury secondary to ATN from dehydration and urinary retention/obstruction. Resolved. Status post Lyn catheter placement. Treated with IV fluid. Discontinued IV fluid. Ordered: [facility] Hospital Care/Day Moderate 35 Minutes 44551 3. Acute urinary retention (R33.8: Other retention of urine) Secondary to recent surgery. Status post Lyn catheter placement. Ordered: [facility] Hospital Care/Day Moderate 35 Minutes 32996 4. Constipation (K59.00: Constipation, unspecified) Postoperatively. Resolved. Avoid narcotics. Continue on Colace. Ordered: [facility] Hospital Care/Day Moderate 35 Minutes 46849 5. Sepsis (A41.9: Sepsis, unspecified organism) Suspected to be present at the outside facility patient had leukocytosis, tachycardia and elevated lactic acid presumed secondary to labial cellulitis. Sepsis resolved. Treating with IV cefepime. Discontinued IV fluid. Ordered: [facility] Hospital Care/Day Moderate 35 Minutes 42854 6. Obese (E66.9: Obesity, unspecified) Recommend therapeutic lifestyle modification changes. 7. Cystocele with rectocele (N81.10: Cystocele, unspecified) Status post surgery. Urology consult reviewed by me. I appreciate and agree with recommendations. 8. Gastroesophageal reflux disease (K21.9: Gastro-esophageal reflux disease without esophagitis) Supportive care. 9. Bipolar illness (F31.9: Bipolar disorder, unspecified) Continue on lithium. 10. On deep vein thrombosis (DVT) prophylaxis (Z79.899: Other terminal manager (current) drug therapy) Lovenox. Disposition: Home soon pending final urology recommendations. I discussed the diagnosis and plan of care with the patient at the bedside. Moderate level of MDM based on addressing above issues. This documentation was transcribed using voice recognition software. Several attempts were made to ensure accuracy. However inadvertent computerized shell mold bonder errors may be present. Eri Waldrop. Hospitalist. [...] (renally dosed). Blood cultures were obtained at [facility] prior to initiation of Cipro and clindamycin. [...] deep vein thrombosis (DVT) prophylaxis (Z79.899: Other skilled nursing (current) drug therapy) SCD, enoxaparin Orders: acetaminophen, [...] Metabolic Panel Consult to Urology Lactic Acid [place] Lev Notify Provider Vital Signs Notify Provider [...] kidney injury - Follow-up cultures obtained at [facility] - Continue IV cefepime; she can received Cipro and clindamycin at [place] [facility] - She did get adequate fluid resuscitation in the outlying emergency room - She is currently on normal saline 150 mL an hour 2. Abdominal pain - Morphine as needed; I did add Percocet per her request - Urology consulted 3. Acute kidney injury - After fluid resuscitation, her creatinine went from 4.0 at [place] [facility] to 1.8 - Check lab in a.m. 4. Bipolar disorder - We did add back her lithium plus her oxcarbazepine and venlafaxine DVT prophylaxis with SCDs and subcu enoxaparin Ulcer prophylaxis with p.o. PPI Nursing is also asking something for anxiety is very anxious on occasion - po ativan added as needed Future Appointments Appointment Date:07/30/2024 02:30:00 PM Scheduled Provider:HAMILTON MALONE MD Location:[facility] Appointment Type:URO Office Visit [facility] 12-17-2024 NoteDischarge Summary Admission and Discharge Information [...] and swelling. She was subsequently admitted to [facility] with acute kidney injury secondary to ATN [...] Within 5 to 7 days [facility] [place] [address] [phone] Business (1) Additional Instructions: Call for followup appointment SEB BARRY Within 5 to 7 days [address] [place] [address]- Business (1) Additional Instructions: Call for followup appointment Patient Education Sepsis, Diagnosis, AdultFisher [facility] HospitalComment on above:Result Comment: Electronically Signed By: KARLI RAMIREZ, Eri\.br\Date and Time Signed: 07/27/24 08:46 [id number] NoteProgress Note-Nurse did a void trial, failed after two outputs. First bladder scan 480, second 841. Called Dr Dorantes, placed Lyn catheter for retention; well tolerated by patient. Great output; see documentation. InformDr Dr Jose E benedict ok with d/c with Lyn catheter to home when medically stable.[facility]12-16-2024 Hospital Discharge instructions Patient Education 07/26/2024 11:18:35 [...] Follow these instructions at home: Medicines Take osaq-ksc-wxsccyj and prescription medicines only as told by [...] provider. Document Revised: 06/30/2023 Document Reviewed: 06/30/2023 [employer] Patient Education 2023 [employer]. Follow Up Care 07/25/2024 00:44:54 With:HAMILTON MALONE Address: [address] [place] [address] [phone] Business (1) When:5 to 7 days Comments:Call for followup appointment With:SEB BARRY Address: [address] [place] [address] Business (1) When:5 to 7 days Comments:Call for followup appointment [facility] [phone] NoteProgress Note-Nurse Patient voided but forgot to place call light on; will do bladder scan again. Instructed again to place light on TYE to preform. Was on phone with girlfriend; forgot. No complaints at this time. Voided 100ml with one small red clotFisher [facility]12[facility] NoteProgress Note-Physician Assessment/Plan 64-year-old female with history [...] retention???present on admission. Resolved. Avoid narcotics. Ordered: [facility] [facility] Care/Day Moderate 35 Minutes 48990 2. Acute kidney injury (N17.9: Acute kidney failure, unspecified) Acute kidney injury???secondary to ATN from dehydration and urinary retention/obstruction. Resolved. Status post Lyn catheter placement. Treated with IV fluid. Discontinued IV fluid. Ordered: [facility] Care/Day Moderate 35 Minutes 20344 3. Acute urinary retention (R33.8: Other retention of urine) Secondary to recent surgery. Status post Lyn catheter placement. Ordered: [facility] Care/Day Moderate 35 Minutes 33920 4. Constipation (K59.00: Constipation, unspecified) Postoperatively. Resolved. Avoid narcotics. Continue on Colace. Ordered: [facility] Care/Day Moderate 35 Minutes 51983 5. Sepsis (A41.9: Sepsis, unspecified organism) Suspected to be present at the outside facility???patient had leukocytosis, tachycardia and elevated lactic acid???presumed secondary to labial cellulitis. Sepsis resolved. Treating with IV cefepime. Discontinued IV fluid. Ordered: [facility] Care/Day Moderate 35 Minutes [id number] 6. Obese (E66.9: Obesity, unspecified) Recommend therapeutic lifestyle modification changes. 7. Cystocele with rectocele (N81.10: Cystocele, unspecified) Status post surgery. Urology consult reviewed by me. I appreciate and agree with recommendations. 8. Gastroesophageal reflux disease (K21.9: Gastro-esophageal reflux disease without esophagitis) Supportive care. 9. Bipolar illness (F31.9: Bipolar disorder, unspecified) Continue on lithium. 10. On deep vein thrombosis (DVT) prophylaxis (Z79.899: Other skilled nursing (current) drug therapy) Lovenox. Disposition: Home soon pending final urology recommendations. I discussed the diagnosis and plan of care with the patient at the bedside. Moderate level of MDM based on addressing above issues. This documentation was transcribed using voice recognition software. Several attempts were made to ensure accuracy. However inadvertent computerized shell mold bonder errors may be present. Eri Waldrop. Hospitalist. [...] E12/L Low (07/26/24 06 (more content not included)...[facility]:Result Comment: Electronically Signed By: KARLI RAMIREZ, Eri\.br\Date and Time Signed: 07/26/24 09:36 [id number] NoteProgress Note-Physician Patient: RAIN SWEENEY Age: 64 years Sex: Female : 1960 Associated Diagnoses: None Author: MD Favian, Song Macias Postoperative Information Postoperative disposition: Postoperative disposition: To PACU. Optimetrix number: Optimetrix number [id number]. Anesthetic utilized: General. Health Status Allergies: Allergic [...] Discharge when meets criteria ( To home ).[facility] CenterComment on above:Result Comment: Electronically Signed By: MD Ballesteros Ahmad F\.br\Date and Time Signed: 07/25/24 16:12 EST 07-25-2024 NoteProgress Note-Physician Patient: RAIN SWEENEY Age: 64 years Sex: Female : 1960 Associated Diagnoses: None Author: MD Favian, Song Macias Preoperative Information Time patient last ate or [...] for 5 day(s), 10 tab(s), Refill(s) 0, [facility]/pharmacy #[id number], 174, cm, 07/06/24 9:03:00 EST, Height/Length Dosing, 81.8, kg, 07/06/24 9:03:00 EST, Weight Dosing Colace 50 mg oral capsule: 50 mg = 1 cap(s), Oral, BID, PRN for constipation, # 60 cap(s), Refills(s) 0, [id number], cm, 07/06/24 9:03:00 EST, Height/Length Dosing, 81.8, kg, 07/06/24 9:03:00 EST, Weight Dosing Roxicodone 5 mg Tab: 5 mg = 1 tab(s), Oral, q6hr, PRN for pain, # 5 tab(s), Refills(s) 0, Pharmacy:[facility]/pharmacy #[id number], 174, cm, 07/06/24 9:03:00 EST, Height/Length [...] All Problems Chronic pain / SNOMED CT 031598836 / Confirmed Essential hypertension / SNOMED CT 93475338 / Confirmed Chronic depression / SNOMED CT 881979321 / Confirmed Anxiety / SNOMED CT 38404666 / Confirmed Scoliosis of lumbosacral spine / SNOMED CT 318713754 / Confirmed Hypercholesterolemia / SNOMED CT 18445793 / Confirmed Heart disease / SNOMED CT 37185128 / Confirmed Acne / SNOMED CT 77274326 / Confirmed Overweight / SNOMED CT 855426054 / Confirmed Lesion of right nipple / SNOMED CT 5373343903 / Confirmed BMI 28.0-28.9,adult / SNOMED CT 6890995493 / Confirmed Sleep apnea / SNOMED CT 423911644 / Confirmed Myocardial infarction / SNOMED CT 65278495 / (more content not included)... [facility] CenterComment on above:Result Comment: Electronically Signed By: MD Favian, Song Macias\.br\Date and Time Signed: 07/25/24 16:11 EST 07-25-2024 NoteConsultation Note Patient: RAIN SWEENEY Age: 64 years Sex: Female : 1960 Associated Diagnoses: None Author: Shad RAMIREZ, Brandon Silva Chief Complaint Pelvic pain History of Present Illness 64-year-old female status-post retropubic mid urethral sling implantation 07/22/[address] Cha MD. Patient presented to [facility] emergency department 07/23/2024 and wasstraight catheterized and discharged home. She then returned to [place] emergency department last night with urinary retention and severe pelvic discomfort. She was found to have acute kidney injury. A Lyn catheter was placed for 800 mL and she was then transferred to [facility] for continued care. Patient reports a 2-day [...] Oral, q6hr PRN Pain, Routine, Start date :54:00 EST, 07/25/24 3:54:00 EST acetaminophen-oxycodone 325 mg-5 [...] for 5 day(s), 10 tab(s), Refill(s) 0, [facility]/pharmacy #[id number], 174, cm, 07/06/24 9:03:00 EST, Height/Length Dosing, 81.8, kg, 07/06/24 9:03:00 EST, Weight Dosing Colace 50 mg oral capsule: 50 mg = 1 cap(s), Oral, BID, PRN for constipation, # 60 cap(s), Refills(s) 0, [id number], cm, 07/06/24 9:03:00 EST, Height/Length Dosing, 81.8, kg, 07/06/24 9:03:00 EST, Weight Dosing Roxicodone 5 mg Tab: 5 mg = 1 tab(s), Oral, q6hr, PRN for pain, # 5 tab(s), Refills(s) 0, [id number] 174, cm, 07/06/24 9:03:00 EST, Height/Length Dosing, 81.8, kg, 07/06/24 9:03:00EST, Weight Dosing Documented Medications Documented lithium 300 mg oral tablet: 300 mg = 1 tab(s), Oral, Bedtime, Refills(s) 0 omeprazole 20 mg Cap-DR: 20 mg = 1 cap(s), Oral, Daily, Refills(s) 0 oxcarbazepine 300 mg Tab: 300 mg = 1 tab(s), Oral, BID, Take on (more content not included)...[facility] CenterComment on above:Result Comment: Electronically Signed By: Shad RAMIREZ, Brandon Silva\.br\Date and Time Signed: 07/25/24 12:33 [id number] NoteHistory and Physical Basic Information Admit Date/Time:07/25/2024 00:42 History of Present Illness Patient is a 64-year-old female with past medical history as noted below comes in with above-statedchief complaint. On 07/22/2024 patient had elective urethral sling, rectocele, and [facility]cele [facility] by GABBY RAMIREZ, HAMILTON. Patient states that on 07/23/2024 she had acute urinary retention at home and went to the [facility] emergency department and was straight cathed. Patient [...] acute kidney injury. [facility] because of her recent surgical procedure. When [...] psychiatric thoughts. Brief Hospital course emergency department [facility]???see outside hospital record for fulldetails Patient was given 30 mL/kg of normal saline per sepsis protocol Patient treated with IV Cipro and clindamycin [facility] emergency department labs 07/24/2024 WBC 14.6 hemoglobin [...] (renally dosed). Blood cultures were obtained at [facility] prior to initiation of Cipro and clindamycin. [...] (K21.9: Gastro-esophageal reflux disease witho (more content notincluded)...[facility] CenterComment on above: Result Comment: Electronically Signed By: Otto Ramos DO\.br\Date and Time Signed: 07/25/24 10:58 [id number] NoteHistory and Physical Basic Information Admit Date/Time:07/25/2024 00:42 History of Present Illness Patient is a 64-year-old female with past medical history as noted below comes in with above-statedchief complaint. On 07/22/2024 patient had elective urethral sling, rectocele, and cystocele repairdone at [facility] by HAMILTON MALONE MD. Patient states that on 07/23/2024 she had acute urinary retention at home and went to the [facility] emergency department and was straight cathed. Patient [...] acute kidney injury. [facility] because of her recent surgical procedure. When [...] psychiatric thoughts. Brief Hospital course emergency department [facility]???see outside hospital record for fulldetails Patient was given 30 mL/kg of normal saline per sepsis protocol Patient treated with IV Cipro and clindamycin [facility] emergency department labs 07/24/2024 WBC 14.6 hemoglobin [...] (renally dosed). Blood cultures were obtained at [facility] prior to initiation of Cipro and clindamycin. [...] (K21.9: Gastro-esophageal reflux disease witho (more content notincluded)...[facility] CenterComment on above: Result Comment: Electronically Signed By: Aditya MARIA DO\.br\Date and Time Signed: 07/25/24 04:51 [id number] Hospital Discharge instructions Patient Education 07/22/2024 12:08:32 Lyn Catheter Care, Female-[facility](CUSTOM) Lyn Catheter Care, Female A Lyn catheter [...] cotton underwear to absorb moisture and keep drier helper. 6. Keep the drainage bag below the [...] 07/22/2024 09:45:15 Jose E ARAUZ Discharge Instructions(CUSTOM) [place], [place] Ambrose Dorantes M.D. TVT DISCHARGE INSTRUCTIONS [...] have given you. Surgeon s Phone number: [phone] Surgeon s Written Instructions: 1.During the daytime [...] the opportunity tohave my questions answered. Responsible Republican SignatureSurgeon SignatureNurse Signature Written: 08-2007/22/2024 09:45:07 Post Op Patient Instructions - FT (CUSTOM) Follow Up Care 07/05/2024 10:24:00 With:HAMILTON MALONE Address: [address] [place] [place] [phone] Business (1) When: Unknown Comments:2 weeks [facility] 12-12-2024 NotePatient Education - Text Lyn Catheter Care, Female A Lyn catheter is a soft, flexible tube that is placed into the bladder to drain urine. The catheter has a balloon to hold it inside the bladder. A Lyn catheter may be inserted if: ??? You [...] cotton underwear to absorb moisture and keep drier helper. 6. Keep the drainage bag below the [...] up appointments and call with any concerns. [facility] [place] Ambrose Dorantes M.D. TVT DISCHARGE INSTRUCTIONS The following instructions must be followed very closely: 1. If (more content not included)...[facility]11[facility] Hospital Discharge instructions Patient Education 07/05/2024 10:12:42 [...] including vitamins, herbs, eye drops, creams, and viiz-cpc-znevnbu medicines. Any problems you or family members [...] provider tells you to take them. Taking kjuf-imn-ltgkkhy medicines, vitamins, herbs, and supplements. Surgery safety [...] provider. Document Revised: 03/02/2021 Document Reviewed: 03/02/2021 [employer] Patient Education 2023 [employer]. Follow Up Care 06/24/2024 14:41:56 With:HAMILTON MALONE MD, URL Address: When: Unknown [facility] 11-25-2024 NotePatient Education Obstetrics and Gynecology Urethral [...] including vitamins, herbs, eye drops, creams, and vkeq-vhd-xajtshp medicines. ??? Any problems you or family [...] tells you to take them. ??? Taking qmbk-ing-cvvqiqg medicines, vitamins, herbs, and supplements. Surgery safety [...] place until your bladder w (more content notincluded)...[facility] Note Progress Note-Physician Patient: RAIN SWEENEY Age: 63 years Sex: Female : 1960 Associated Diagnoses: None Author: Valdo Aguilar MD Postoperative Information Postoperative disposition: Postoperative disposition: To PACU. Optimetrix number: Optimetrix number [id number]. Anesthetic utilized: General. Health Status Allergies: Allergic [...] Discharge when meets criteria ( To home ).[facility] CenterComment on above:Result Comment: Electronically Signed By: Valdo Aguilar MD\.br\Date and Time Signed: 06/24/24 16:53 EST 06-24-2024 Evaluation + Plan noteExtracted from: Title:ANES Post-operative Note---General Author: Valdo Aguilar MD Date:06/24/24 Plan Transfer/Discharge: Transfer/Discharge Discharge when meets criteria ( To home ). Extracted from: Title:ANES Pre-operative Note 2022 Author:Valdo Asencio Date:06/24/24 Plan [place] Society of Anesthesiologists (ASA) physical status classification: Class III. Anesthetic Preoperative Plan: Anesthesia General, and TIVA. Future Appointments Appointment Date:07/05/2024 10:00:00 AM Scheduled Provider:HAMILTON MALONE MD Location:[facility] Appointment Type:URO Office Visit [facility] 11-14-2024 Hospital Discharge instructions Patient Education 06/24/2024 [...] Up Care 06/11/2024 10:28:58 With:HAMILTON MALONE Address: [address] [place] [phone] Business (1) When: Unknown Comments:in 2 weeks [facility] [id number] NotePatient Education - Text Cystoscopy ??? Voiding [...] you have a fever over 100 degrees. [facility]11-[facility] Note Progress Note-Physician Patient: RAIN SWEENEY Age: [...] day(s), # 9 tab(s), Refills(s) 0, Pharmacy: [facility]/pharmacy #[id number], 174, cm, 06/18/24 15:46:00 EST, Height/Length Dosing, [...] list: All Problems Acne / SNOMED CT 96606332 / Confirmed Anxiety / SNOMED CT 55669414 / Confirmed Atrophic vaginitis / SNOMED CT 81819611 / Confirmed Bladder neoplasm of uncertain malignant potential / SNOMED CT 6728389193 / Confirmed BMI 28.0-28.9,adult / SNOMED CT 7798095419 / Confirmed Chronic depression / SNOMED CT 937375935 / Confirmed Chronic pain / SNOMED CT 701141128 / Confirmed Cystocele with rectocele / SNOMED CT 674035745 / Confirmed Essential hypertension / SNOMED CT 35288278 / Confirmed Gastroesophageal reflux disease / SNOMED CT 056062690 / Confirmed Heart disease / SNOMED CT 46409741 / Confirmed Hypercholesterolemia / SNOMED CT 88762518 / Confirmed Lesion of right nipple / SNOMED CT 9331422903 / Confirmed Lumbar radiculopathy / SNOMED CT 314197704 / Confirmed Migraine / SNOMED CT 69477934 / Confirmed Myocardial infarction / SNOMED CT 72243565 / Confirmed Outside Source Comment: Comment on above: 2003 Overweight / SNOMED CT 065192557 / Confirmed Scoliosis of lumbosacral spine / SNOMED CT 076956057 / Confirmed Sleep apnea / SNOMED CT 873241379 / Confirmed Stress incontinence / SNOMED CT 910829299 / Confirmed Urethral caruncle / SNOMED CT 33745347 / Confirmed Resolved: Bipolar disorder / SNOMED CT 67390431 Canceled: Tobacco user / SNOMED CT 522379683, Active Problems (21) Acne Anxiety Atrophic vaginitis Bladder neoplasm of uncertain malignant potential BMI 28.0-28.9,adult Chronic depression Chronic pain Cystocele with rectocele Esse (more content not included)...[facility] CenterComment on above: Result Comment: Electronically Signed By: Jeff RAMIREZ, Valdo Haq\.br\Date and Time Signed: 06/24/24 08:32 [id number] Hospital Discharge instructions Patient Education 06/11/2024 10:04:23 [...] including vitamins, herbs, eye drops, creams, and onjh-htd-wyyhqys medicines. Any problems you or family members [...] provider tells you to take them. Taking dxxa-zub-ypthrzj medicines, vitamins, herbs, and supplements. General instructions [...] provider. Document Revised: 03/02/2021 Document Reviewed: 03/02/2021 [employer] Patient Education 2023 [employer]. 06/11/2024 09:47:28 Kegel Exercises Kegel Exercises Kegel [...] provider. Document Revised: 12/06/2021 Document Reviewed: 12/06/2021 [employer] Patient Education 2023 [employer]. Follow Up Care 05/31/2024 11:14:44 With:GABBY RAMIREZ, HAMILTON, URL Address: When: Unknown [facility] [place] 11-01-2024 NotePatient Education Obstetrics and Gynecology Kegel [...] provider. Document Revised: 12/06/2021 Document Reviewed: 12/06/2021 [employer] Patient Education ? 2023 [employer] Urology Injection Treatments for Urinary Incontinence [...] including vitamins, herbs, eye drops, creams, and rnnm-gmy-pyfozog medicines. ??? Any problems you or family [...] foods, such as toast or (more contentnot included)...[facility]10-[facility] Evaluation note* Diagnosis Onset Date Resolution Status Admit Date UTI (urinary tract infection) acute June 04, 2024 11:12am Preoperative examination acute June 21, 2024 9:50am [facility] Work Phone: 1(763) 222-833310-18-2024 NotePatient Education Obstetrics and Gynecology Kegel Exercises [...] provider. Document Revised: 12/06/2021 Document Reviewed: 12/06/2021 [employer] Patient Education ? 2023 [employer]. Urethral Vaginal Sling A urethral vaginal sling [...] including vitamins, herbs, eye drops, creams, and uclm-uax-rjnmeya medicines. ? Any problems you or family [...] medicines or blood thinners. (more content not included)...[facility]10[facility] Hospital Discharge instructions Patient Education 05/25/2024 10:57:53 [...] including vitamins, herbs, eye drops, creams, and nvte-xlq-vymtiqo medicines. Any problems you or family members [...] provider tells you to take them. Taking kria-lrr-iexytir medicines, vitamins, herbs, and supplements. Surgery safety [...] provider. Document Revised: 03/02/2021 Document Reviewed: 03/02/2021 [employer] Patient Education 2023 [employer]. [facility] 10-09-2024 Evaluation note* Diagnosis Onset Date Resolution Status Admit Date UTI (urinary tract infection) acute May 19 10:09am Dysuria noneactive May 19 024 10:09am UTI (urinary tract infection) acute June 04 11:12am [facility] Work Phone: 1(325) 230-599809-11-2024 History of Present illness Narrative* MICHEAL Cifuentes [...] nursing note reviewed. Exam conducted with a zinc plating machine operator present. Vitals: Estimated body mass index is [...] behalf of: MICHEAL Cifuentes documented in this encounterBarnes-Jewish West County [id number] NoteChief Complaint consultation for abnormal breast US [...] 12/09/2020 Recorded SARS-CoV-2 (COVID-19) mRNA-1273 vaccine 11/11/2020 RecordedOhio[facility] Medical CenterComment on above:Result Comment: Electronically Signed By: BERONICA RAMIREZ, Dieter Bryson\Date and Time Signed: 11/19/23 14:27 [id number] Evaluation note * Encounter Date Diagnosis Assessment [...] may be able to offer some advice. [employer] Other 09-25-2023 Evaluation note* Encounter Date Diagnosis Assessment Notes Treatment Notes Treatment Clinical Notes Apr, Right lumbar radiculopathy (ICD-10 - M54.16) Presently in PT - discharged on 05/02. Requests MRI and referral. [employer] Other 08-22-2023 Evaluation note* Encounter Date Diagnosis Assessment Notes Treatment Notes Treatment Clinical Notes Mar, Right hip pain (ICD-10 - M25.551) PT paper given to pt. Handout for home stretches given as well. Tramadol to help her sleep. She understands it is a controlled substance and could be sedating. [employer] Other 05-15-2023 Evaluation note* Encounter Date Diagnosis [...] Above note written by Morris Flor MA, Spice Room Worker. Edited and approved by Dr. Goldy [...] negative findings were considered in medical decision-making. [employer] Other 04-28-2023 Evaluation note* Encounter Date Diagnosis Assessment Notes Treatment Notes Treatment Clinical Notes Nov, Lumbar pain (ICD-10 - M54.50) [place] [facility] Other 07-20-2022 Evaluation note* Encounter Date Diagnosis Assessment Notes Treatment Notes Treatment Clinical Notes Feb, Bipolar 1 disorder, depressed (ICD-10 - F31.9) [employer] Other 05-05-2022 Evaluation note* Encounter Date Diagnosis Assessment Notes Treatment Notes Treatment Clinical Notes December, Bipolar 1 disorder, depressed (ICD-10 - F31.9) [employer] Other Evaluation + Plan note No data available for this section General Surgery [place] Evaluation + Plan note Future Appointments Appointment Date:06/18/2024 03:30:00 PM Scheduled Provider: Location:[facility] Appointment Type:Surgical PAT FT Appointment Date:06/24/2024 09:00:00 AM Scheduled Provider: Location:[facility] Appointment Type:Surgery FT [facility] Evaluation + Plan note Future Appointments Appointment Date:06/24/2024 09:00:00 AM Scheduled Provider: Location:[facility] Appointment Type:Surgery FT [facility] Evaluation + Plan note Future Appointments Appointment Date:07/06/2024 10:00:00 AM Scheduled Provider: Location:[facility] Appointment Type:Surgical PAT FT Appointment Date:07/22/2024 08:00:00 AM Scheduled Provider: Location:[facility] Appointment Type:Surgery FT [facility] evaluation + Plan note Future Appointments Appointment Date:07/22/2024 08:00:00 AM Scheduled Provider: Location:[facility] Appointment Type:Surgery FT [facility] Evaluation + Plan note Future Appointments Appointment Date:07/23/2024 10:30:00 AM Scheduled Provider: Location:[facility] Appointment Type:URO Nurse Visit [facility] evaluation + Plan note Future Appointments Appointment Date:08/26/2024 08:00:00 AM Scheduled Provider:HAMILTON MALONE MD Location:[facility] Appointment Type:URO Office Visit [facility] evaluation noteNo [employer] Other evaluation noteNo assessment information available [facility] Work Phone: evaluation note* Diagnosis Onset Date Resolution Status Acne acute Breast mass, right acute Wellness examination acute Abnormal ultrasound of breast acute [facility] Work Phone: evaluation note* Diagnosis Onset Date Resolution Status Abnormal ultrasound of breast acute [facility] Work Phone: evaluation note* Diagnosis Onset Date Resolution Status UTI (urinary tract infection) acute Dysuria noneactive [facility] Work Phone: evaluation note* Diagnosis Onset Date Resolution Status UTI (urinary tract infection) acute Dysuria noneactive UTI (urinary tract infection) acute [facility] Work Phone: evaluation note* Diagnosis Exposure [...] Hospitalization History See surgical hx Hospitalization History [facility] Other [facility] general Narrative - Reported* Type Description Date Medical History bipolar disorder Medical History anxiety disorder Medical History high blood pressure Medical History Fatigue Medical History High risk medication use Surgical History 2 boul ligation 2000 Surgical History stepidectomy 2009 Surgical History sinus surgery 2015 Surgical History LUBAL LIGATION Hospitalization History See surgical hx Hospitalization History [facility] Other [facility] general Narrative - Reported* Type Description Date [...] Hospitalization History See surgical hx Hospitalization History [facility] Other Hospital Discharge instructionsAmbulatory Orders* Referral to General Surgery Time Frame: 11/12/23, Location: [facility] Work Phone: Hospital Discharge instructions No data available for this section General Surgery [facility] Discharge instructions Additional Instructions Diet You may return to your normal diet after surgery. Mild nausea and possibly vomiting may occur in the first 6-8 hours following surgery. This is usually due to the side effects of anesthesia and will resolve soon. We suggest clear liquids and a light meal the first evening following surgery. Activity You will be limited to light activity for 4 weeks after surgery. You may not engage in sexual intercourse, use tampons, lift >15 lbs, jump, squat, or ride straddle (bike, motorcycle, etc.) for 6 weeks. Voiding You may notice some mild burning with urination after surgery due to the catheter that is placed during surgery. This should resolve in 1-2 days. You also may notice a slower stream or mild difficulty voiding. This can be secondary to the swelling and usually improves within a week. If at any point you cannot void for 6 straight hours, contact your doctor. Occassionally, this surgery can lead to urine retention. This is usually temporary, which can be managed with an intermittent catheter. If retention does not resolve within 4 weeks after surgery, you may have to undergo a second procedure to release the mesh to allow normal voiding. Wound Your incision is within the vagina and thus will not be seen. Your surgeon may leave vaginal packing, which is a long strip of gauze saturated with estrogen cream, which is packed into the vagina to aid in healing. If you have packing, it should be removed before you go to sleep on the same day of your surgery. Just pull on the gauze until nothing more comes out. It is normal to see an increase in vaginal discharge as well as vaginal bleeding for up to a week after surgery. You need to contact your physician if the discharge has a foul odor or is green in color. If you are soaking a pad every 2 hours, continue to bleed longer than 1 week, note a sudden increase in your bleeding, or develop a fever of 101 or higher, call your doctor. You will also have two puncture incisions where the needles that are used to place the mesh are inserted. These will be closed with surgical glue. You may feel these, but do not pick the glue off. Hygiene You may resume normal showering immediately after surgery. Avoid baths and swimming for 4 weeks after surgery. Medications In most cases, you will be sent home with a prescription pain pill. If the pain medication you are sent home with does not control the pain when being used as directed on bottle, call your doctor. Typically, discomfort lasts from a few days to two weeks, but it should progressively improve. While taking prescription pain medication, it is recommended you also take a stool softener such as Docusate Sodium (Colace, Dulcolax) to counteract the constipating effects of the pain medication. If the pain is mild, you may take [id number] Tylenol (acetaminophen). Avoid Non-Steroidal Anti-Inflammatories (NSAIDs) such as Aspirin, Ibuprofen, Naproxen, Advil, Aleve, and Motrin, for 72 hours after surgery because they may cause prolonged bleeding. Call your doctor if you develop a rash or other drug reaction. If difficulty with breathing occurs, go directly to the ER. [facility] Work Phone: Progress note No data available for this section General Surgery [place] Reason for Referral Reason piriformis pain Diagnosis 1 Adolescent idiopathi c scoliosis of lumbosacral spine (M41.127) Referral Organization [facility] urosurgery Referring Provider First Name Helio Referring Provider Last Name Asha Referring Provider Specialty Neurologica l Surgery Referred Organization [facility] Referred Provider Danny Solares Referred Address [address] [facility] Referred Provider Specialty Orthopaedic Surgery Referral Priority Routine Reason Requests Dr. Helio qureshi - MRI pending. Went to [place] [facility] and had xrays on 05/05. Diagnosis 1 Right lumbar radicul opathy (M54.16) Referral Organization [facility] lauren Referring Provider First Name Seb Referring Provider Last Name Asha Referring Provider Specialty Family Medi cine Referred Organization [facility] Neurosurgery [facility] Referred Address [address] [place], [place],[address] Referred Provider Specialty Neurological Surgery Referral Priority Routine Reason No preference on off ice - Lumbar pain - recent OV and xray - thanks Diagnosis 1 Lumbar pain (M54.50) Referral Organization [facility] [facility] Referring Provider First Name Seb Referring [...] father Bipolar disorder Unknown Unknown mother Unknown Relationship Condition Age at Onset Recorded Date/T patricia daughter Bipolar disorder Unknown father Bipolar disorder Unknown Unknown mother [...] 11:12am N39.0 June 04, 2024 1 1:30am June 14, 2024 1 1:53am Pre-Surgical Clearance June 21 9:50am Reason for Visit Admit Date UTI (urinary tract infection) May 10:09am Dysuria May 19, 2024 10 :09am UTI (urinary tract infection) June 042023 11:12am Chief Complaint Admit Date UA, blood urine, fullness June 04, 2024 11:12am N39.0 June 04, 2024 1 1:30am Pre-Surgical Clearance June 21 9:50am Amb Documentation July 27, 2024 9:46am August 10, 2024 8:44am urinary retention, stress incontinence J anuary 2024 7:38am Reason for Visit Admit Date UTI (urinary tract infection) June 042023 11:12am Preoperative examination June 21, 2024 9:50am Additional Source Comments REASON FOR VISIT (unrecogniz ed section and content) Reason Comments vaginal issues INFORMATION SOURCE (unrecogn ized section and content) DATE CREATED AUTHOR 12/25/2022 [facility] DATE CREATED AUTHOR AUTHOR'S ORGANIZ ATION 04/23/2024 [facility] DATE CREATED AUTHOR AUTHOR'S ORGANIZ ATION 06/20/2024 [facility] DATE CREATED AUTHOR AUTHOR'S ORGANIZ ATION 07/04/2024 [facility] DATE CREATED AUTHOR AUTHOR'S ORGANIZ ATION 07/06/2024 [facility] DATE CREATED AUTHOR AUTHOR'S ORGANIZ ATION 07/27/2024 [facility] DATE CREATED AUTHOR AUTHOR'S ORGANIZ ATION 08/30/2024 [facility] DATE CREATED AUTHOR AUTHOR'S ORGANIZ ATION 10/13/2024 [facility] Care Teams (unrecognized sec tion and [...] End: December 31, 2023 Dieter Loco MD [facility] Attending Provider Active Start: December 31, [...] June 21, 2024 End: June 21, 2024 Medical Legal Investigator Relationship Specialty Start Date End Date Seb Barry MD [address] [facility] [place] [address] PCP - [facility] 04/21/23 Medical Legal Investigator Relationship Specialty Start Date End Date Seb Barry MD [address] [place] [facility] [place] [address] PCP - [facility] 04/21/23 Medical Legal Investigator Relationship Specialty Start Date End Date Seb Barry MD [address] [facility] [place] [address] PCP - [facility] Medicine 04/21/23 Team Status: Active Member Role Status Dates Seb Barry MD Primary Care Provider Active Start: July 24, 2024 Mateo Souza Attending Provider Active Start: July 24, 2024 Team Status: Active Member Role Status Dates Seb Barry MD Primary Care Provider Active Start: July 25, 2024 Kelly Dinh MD Attending Provider Active Sta rt: July 25, 2024 Team Status: Active Member Role Status Dates Seb Barry MD Primary Care Provider Active Start: July 27, 2024 Catalina Pedraza CMA Attending Provider Active Start: July 27, 2024 Team Status: Active Member Role Status Dates PHYSICIAN FAMILY Primary Care Provider Active Start: August 10, 2024 Pan Sanders MD Attending Provider Active Start: August 10, 2024 Team Status: Inactive Member Role Status Dates Seb Barry MD Primary Care Provider Active Start: August 18, 2024 End: August 18, 2024 Hamilton Malone MD Attending Provider Active Start: August 18, 2024 End: August 18, 2024 Goals (unrecognized section and content) Goals [...] BE BASED ON THE PRIMARY CLINICAL RECORDS. [facility] [employer] [facility]. provides no warranty or guarantee of the accuracy or completeness of information in this document.
[2024-10-14 11:03] LABS: Estimated GFR (African America 58 (>=60 mL/min/1.73m^2); Estimated GFR (Non-African Ame 48 (>=60 mL/min/1.73m^2); Thyroid Stimulating Hormone 0.498 uIU/mL (0.358-3.740)
[2024-10-15 05:07] LABS: Lithium (Eskalith(R)), Serum 0.6 mmol/L (0.5-1.2)
== END 2024-10-14 10:01 | disposition home or self-care (01) ==
LOC: LAB 10:01
PROVIDERS: PCP Family Medicine; Visit Provider Psychiatry & Neurology Psychiatry
DX: F31.9 Bipolar disorder, unspecified (principal); Z79.899 Other long term (current) drug therapy
CPT/HCPCS: 36415; 80178; 82565; 84443

== ENCOUNTER 2024-11-18 11:47 | Outpatient (OUT) | payer OTHER, SELFPAY ==
[2024-11-18 12:23] LABS: Estimated Average Glucose 108 mg/dL; Glycohemoglobin A1C 5.4 % (4.5-6.2)
[2024-11-18 13:00] LABS: Chol HDL Ratio 2.5; Cholesterol 210 mg/dL (<=200); Estimated GFR (African America >60 (>=60 mL/min/1.73m^2); Estimated GFR (Non-African Ame 56 (>=60 mL/min/1.73m^2); Glucose 104 mg/dL (74-106); HDL Cholesterol 83 mg/dL (40-60); Triglycerides 98 mg/dL (<=150); VLDL CHOLESTEROL 19.6 mg/dL
[2024-11-19 05:07] LABS: Lithium (Eskalith(R)), Serum 0.7 mmol/L (0.5-1.2)
== END 2024-11-18 11:48 | disposition home or self-care (01) ==
LOC: LAB 11:50
PROVIDERS: PCP Family Medicine; Visit Provider Psychiatry & Neurology Psychiatry
DX: Z79.899 Other long term (current) drug therapy (principal); F31.9 Bipolar disorder, unspecified
CPT/HCPCS: 36415; 80061; 80178; 82565; 82947; 83036; 84443

== ENCOUNTER 2024-12-16 09:02 | Outpatient (OUT) | payer OTHER, SELFPAY ==
[2024-12-16 10:26] LABS: Free T4 0.83 ng/dL (0.76-1.46)
[2024-12-16 10:30] LABS: Free T3 3.32 pg/mL (2.18-3.98); Thyroid Stimulating Hormone 0.015 uIU/mL (0.358-3.740)
[2024-12-17 16:08] LABS: Thyroid Peroxidase (TPO) Ab 12 IU/mL (0-34)
[2024-12-18 16:12] LABS: Thyrotropin Receptor Ab, Serum <1.10 IU/L (0.00-1.75)
== END 2024-12-16 09:03 | disposition home or self-care (01) ==
LOC: LAB 09:04
PROVIDERS: PCP Family Medicine; Visit Provider Internal Medicine
DX: E05.90 Thyrotoxicosis, unspecified without thyrotoxic crisis or storm (principal)
CPT/HCPCS: 36415; 83520; 84439; 84443; 84481; 86376; 86800

== ENCOUNTER 2025-01-21 09:21 | Outpatient (OUT) | payer OTHER, SELFPAY ==
--- OUTSIDE RECORDS SUMMARY | 2025-01-18 10:00 | XMS_ITS | Encounter Summary ---
Author Organization [facility] Address [address] [place] [address] Care Team Providers Care Bi Consultant Name Role Phone Trista Alvarado MD Primary Care Provider [phone] Reason for Referral * Consultation (Routine) - Pending Review Specialty Diagnoses / Procedures Referred By Jung ballard Referred To Contact Otolaryngology Diagnoses Multinodular goiter Procedures [place] OFFICE/OUTPATIENT [facility] MDM 60 MINUTES Song Covarrubias MD [address] [place] [address] Phone: tel: fax: Scooby Fitzgerald, [address] [place] [place] [address] Phone: tel: fax: Referral ID Status Reason Start Date Expiration Date Visits Requested Visits Authorized [id number] Pending Review Specialty Services Required 01/18/2025 07/17/2025 1 1 Reason for Visit * Reason Comments Thyroid Problem Follow-up LAB/NM US Encounter Details Date Type Department Care Team (Latest Contact Info) Description 01/18/2025 10:00 AM EDT Office Visit [facility] [address] [place] [address] Song Covarrubias MD [address] [place], [place] [id number] Hyperthyroidism (Primary Dx); Long-term current use of lithium; Hair loss; Palpitation; Multinodular goiter Social History Tobacco Use Types Packs/Day Years Used Date Smoking Tobacco: Never Assessed Comments Unknown Sex and Gender Information Value Date Recorded Sex Assigned at Not on file Legal Sex Female 11:09 PM EDT Gender Identity Not on file Sexual Orientation Not on file documented as of this encounter Last Filed Vital Signs Vital Sign Reading Time Taken Comments Blood Pressure - - Pulse 103 01/18/2025 10:05 AM EDT Temperature - - Respiratory Rate 20 01/18/2025 10:05 AM EDT Oxygen Saturation 98% 01/18/2025 10:05 AM EDT Inhaled Oxygen Concentration - - Weight 81.6 kg (180 lb) 01/18/2025 10:05 AM EDT Height 172.7 cm (5' 8 ) 01/18/2025 10:05 AM EDT Body Mass Index 27.37 01/18/2025 10:05 AM EDT documented in this encounter Progress Notes * Song Covarrubias MD - 01/18/2025 10:00 AM EDT Rain Carvalho is a 64 y.o. female No ref. provider found presents with chief complaint of Thyroid Problem and Follow-up (LAB/NM US) HPI: 01/2025 History of Present Illness The patient is a 64-year-old female who presents for a follow-up on her thyroid condition. She reports experiencing fatigue, which she perceives as more pronounced than usual. She has been managing palpitations for an extended period and has chosen not to incorporate metoprolol into her treatment regimen. Results Labs: TRAb negative less than 1.1. TPO 12. TG antibody +2 (0-0.9). TSH suppressed 0.15. Free T3 3.32 (2.18-3.98 within normal limits). Free T4 0.83 (0.76-1.46 within normal limits). Imaging: Thyroid scan and uptake: 4 hours, 11.5%; 24 hours, 28%. Cold nodules in the left lower lobe. Ultrasound: Right lobe 5.2 x 1.2 x 2.17 with a small isoechoic nodule in the upper lobe 8 x 8 x 5 mm. Left lobe 5.2 x 1.9 x 2.4 with an isoechoic nodule in the left lobe 15 x 13 x 15 mm. History of Present Illness The patient is a 64-year-old female who presents for evaluation of hyperthyroidism. Her TSH level is 0.02. She reports experiencing tremors, which she attributes to her long-term lithium use. Ozone has been part of her treatment regimen for 18 years. Additionally, she has been experiencing palpitations since the age of 13. Chronic diarrhea is also reported, which she believes is a side effect of lithium. 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 Current medications include lithium (900 mg), omeprazole, oxcarbazepine, and Effexor. There is no family history of thyroid disease. FAMILY HISTORY She reports no family history of thyroid disease or Graves' disease. The patient is a 64-year-old female who presents for a follow-up on her thyroid condition. She reports experiencing fatigue, which she perceives as more pronounced than usual. She has been managing palpitations for an extended period and has chosen not to incorporate metoprolol into her treatment regimen. Results Labs: TSH level is 0.02. SUBJECTIVE: MEDICATIONS: Current Outpatient Medications Medication Instructions lithium ER (LITHOBID) 900 mg, Daily metFORMIN (GLUCOPHAGE) 500 mg, Oral, Daily with breakfast omeprazole (PRILOSEC) 10 mg, Daily before breakfast OXcarbazepine (Trileptal) 600 MG tablet venlafaxine XR (Effexor XR) 225 MG 24 hr tablet 1 tablet ALLERGIES: Allergies Allergen Reactions Metformin Other Reaction(s): Hives Penicillins Other Reaction(s): hives Past Medical History: Diagnosis Date Anxiety Bipolar 2 disorder (CMS/HCC) Past Surgical History: Procedure Laterality Date BREAST SURGERY lump removed from nipple REVIEW OF SYMPTOMS: 14 POINT OF SYSTEM REVIEWED AND NEGATIVE OBJECTIVE: Visit Vitals Pulse 103 Resp 20 Ht 5' 8 Wt 180 lb SpO2 98% BMI 27.37 kg/m?? BSA 1.98 m?? Physical Exam Constitutional: Appearance: Normal appearance. She is normal weight. HENT: Head: Normocephalic and atraumatic. Right Ear: External ear normal. Nose: Nose normal. Mouth/Throat: Pharynx: Oropharynx is clear. Eyes: Extraocular Movements: Extraocular movements intact. Pupils: Pupils are equal, round, and reactive to light. Cardiovascular: Rate and Rhythm: Normal rate and regular rhythm. Pulmonary: Effort: Pulmonary effort is normal. Abdominal: General: Abdomen is flat. Palpations: Abdomen is soft. Musculoskeletal: General: Normal range of motion. Skin: General: Skin is warm. Neurological: General: No focal deficit present. Mental Status: She is alert. Psychiatric: Mood and Affect: Mood normal. Behavior: Behavior normal. ASSESSMENT AND PLAN: Assessment/Plan Diagnoses and all orders for this visit: Hyperthyroidism (CMS/HCC) - methIMAzole (Tapazole) 5 MG tablet; Take 1 tablet (5 mg) by mouth Daily - T3, free; Future - T4, free; Future - TSH; Future - Hepatic function panel; Future Long-term current use of lithium Hair loss Palpitation Multinodular goiter (CMS/HCC) - Ambulatory referral to ENT; Future Assessment & Plan 1. Subclinical hyperthyroidism: - TSH levels remain suppressed at 0.15, while free T4 is 0.83 and free T3 is 3.32, both within normal limits. - Thyroid scan uptake is normal at 4 hours (11.5%) and 24 hours (28%), with cold nodules identifiedin the left lower lobe. - Ultrasound shows right lobe dimensions of 5.2 x 1.2 x 2.17 cm with a small isoechoic nodule in the upper lobe measuring 8 x 8 x 5 mm, and left lobe dimensions of 5.2 x 1.9 x 2.4 cm with an isoechoic nodule measuring 15 x 13 x 15 mm. - Referral to Dr. Scooby Fitzgerald, ENT specialist, for biopsy of the left-sided nodule measuring 15mm. Methimazole 5 mg once daily prescribed to normalize thyroid function. Follow-up: The patient will follow up in 3 months. documented in this encounter Plan of Treatment Upcoming Encounters Date Type Department Care Team (Late st Contact Info) Description 04/19/2025 10:20 AM EDT Office Visit [facility] [address] [place] [address] Song Covarrubias MD [address] [place] [address] 04/25/2025 9:00 AM EDT Office Visit [facility] [address] [facility] [place] [address] Faiza Almendarez PA [address] [facility] [place] [address] Scheduled Orders Name Type Priority Associated Diagnoses Orde r Schedule T3, free Lab Routine Hyperthyroidism Expected: 01/18/2025 (Approximate), Expires: 01/18/2026 T4, free Lab Routine Hyperthyroidism Expected: 01/18/2025 (Approximate), Expires: 01/18/2026 TSH Lab Routine Hyperthyroidism Expected: 01/18/2025 (Approximate), Expires: 01/18/2026 Hepatic function panel Lab Routine Hyperthyroidism Expected: 01/18/2025 (Approximate), Expires: 01/18/2026 Scheduled Referrals Name Type Priority Associated Diagnoses Order Schedule Ambulatory referral to ENT Outpatient Referral Routine Multinodular goiter Expected: 01/18/2025 (Approximate), Expires: 07/20/2025 documented as of this encounter Visit Diagnoses Diagnosis Hyperthyroidism- 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, without mention of thyrotoxic crisis or storm Long-term current use of lithium Hair loss Unspecified alopecia Palpitation Palpitations Multinodular goiter Nontoxic multinodular goiter documented in this encounter Care Teams Bi Consultant Relationship Specialty Start Date End Date Trista Alvarado MD [address] [facility] [place] [address] PCP - General Family Medicine 04/21/23 documented as of this encounter
--- OUTSIDE RECORDS SUMMARY | 2025-01-21 09:25 | XMS_ITS | Clinical Summary ---
Author Organization [facility] Address [address] [place] [address] Care Team Providers Care Canvas Repairer Name Role Phone Unavailable Primary Care Provider Unavailabl e Encounters Date Type Department Care Team Description 10/21/2024 Travel from Last 3 Months Social History Tobacco Use Types Packs/Day Years Used Date Smoking Tobacco: Never Assessed Comments Unknown Sex and Gender Information Value Date Recorded Sex Assigned at Not on file Legal Sex Female 12:43 PM EST Gender Identity Not on file Sexual Orientation Not on file Plan of Treatment Health Maintenance Due Date Last Done Comments Anxiety Screening 1980 Depression Screening 1980 HIV Screening 1980 Hepatitis C Screening 1980 DTaP,Tdap,Td Vaccine (1 - Tdap) 1981 Cervical Cancer Screening [address] Colonography 2007 Cologuard (FIT-DNA) 2007 Colonoscopy 2007 Colorectal Cancer Screening 2007 Diabetes Screening 2007 Fecal Occult Blood 2007 Lipid Screening 2007 Sigmoidoscopy 2007 Pneumococcal Vaccine: 50+ (1 of 1 - PCV) 2012 Shingrix Vaccine (1 of 2) 2012 Covid-19 Vaccine ( - 2023- season) 2024 Influenza Vaccine (Season Ended) 2025 RSV Vaccine (1 - 1-dose 75+ series) 2037 Insurance [employer]
--- OUTSIDE RECORDS SUMMARY | 2025-01-21 09:25 | XMS_ITS | Encounter Summary ---
Author Organization [facility] Address [address] [facility] [place] [address] Care Team Providers Care Blindstitch Hemmer Name Role Phone Trista Alvarado MD Primary Care Provider [phone] Encounter Details Date Type Department Care Team (Latest Contact Info) Description 01/11/2025 Travel Social History Tobacco Use Types Packs/Day Years Used Date Smoking Tobacco: Never Assessed Comments Unknown Sex and Gender Information Value Date Recorded Sex Assigned at Not on file Legal Sex Female 11:09 PM EDT Gender Identity Not on file Sexual Orientation Not on file documented as of this encounter Plan of Treatment Upcoming Encounters Date Type Department Care Team (Late st Contact Info) Description 04/19/2025 10:20 AM EDT Office Visit [facility] [address] [place] [address] Song Covarrubias MD [address] [place] [address] 04/25/2025 9:00 AM EDT Office Visit [facility] [address] [facility] [place] [address] Faiza Almendarez PA [address] [facility] [address] [place], [place] [id number] documented as of this encounter Visit Diagnoses Not on filedocumented in this encounter Care Teams Blindstitch Hemmer Relationship Specialty Start Date End Date Trista Alvarado MD [address] [place] [address] PCP - General Family Medicine 04/21/23 documented as of this encounter
--- OUTSIDE RECORDS SUMMARY | 2025-01-21 09:25 | XMS_ITS | Encounter Summary ---
Author Organization [facility] Address [address] [place] [address] Care Team Providers Care Bow Maker Production Name Role Phone Trista Alvarado MD Primary Care Provider [phone] Encounter Details Date Type Department Care Team ([facility] Contact Info) Description 01/13/2025 Orders Only [facility] [address] [place] [address] Song Covarrubias MD [address] [place] [address] Social History Tobacco Use Types Packs/Day Years Used Date Smoking Tobacco: Never Assessed Comments Unknown Sex and Gender Information Value Date Recorded Sex Assigned at Not on file Legal Sex Female 11:09 PM EDT Gender Identity Not on file Sexual Orientation Not on file documented as of this encounter Plan of Treatment Upcoming Encounters Date Type Department Care Team (Late Contact Info) Description 04/19/2025 10:20 AM EDT Office Visit [facility] [address] [place] [address] Song Covarrubias MD [address] [place] [address] 04/25/2025 9:00 AM EDT Office Visit [facility] [address] [facility] [place] [address] Faiza Almendarez PA [address] [place] [address] [place] [address] documented as of this encounter Procedures Procedure Name Priority Date/Time Associated Diagnosis Comments US THYROID Routine 01/13/2025 9:12 AM EDT documented in this encounter Results * US thyroid (01/13/2025 9:12 AM EDT) Anatomical Region Laterality Modality Head, Neck Ultrasound us Song Covarrubias MD IMG US PROCEDURES Final Resul t documented in this encounter Visit Diagnoses Not on filedocumented in this encounter Care Teams Bow Maker Production Relationship Specialty Start Date End Date Trista Alvarado MD [address] [facility] [place] [address] PCP - General Family Medicine 04/21/23 documented as of this encounter
--- OUTSIDE RECORDS SUMMARY | 2025-01-21 09:25 | XMS_ITS | Encounter Summary ---
Author Organization [facility] Address [address] [place] [address] Care Team Providers Care Room Service Clerk Name Role Phone Trista Alvarado MD Primary Care Provider [phone] Encounter Details Date Type Department Care Team (Late Contact Info) Description 04/29/2024 Orders Only [facility] [address] [facility] [place] [address] Jerri Oliveira MA [address] [place] [address] [place] [address] Social History Tobacco Use Types Packs/Day Years [...] EDT Office Visit [facility] [address] [place] [address] Song Covarrubias MD [address] [place] [address] 04/25/2025 9:00 AM EDT Office Visit [facility] [address] [facility] [place] [address] Faiza Almendarez PA [address] [facility] [place] [address] documented as of this encounter Procedures Procedure Name Priority Date/Time Associated Diagnosis Comments PAP SMEAR Routine 04/21/2024 12:00 AM EDT documented in this encounter Results * Pap Smear (04/21/2024 12:00 AM EDT) Swab Cervical swab / Unknown [facility] ORDERABLES Final Re sult EXTERNAL LAB documented in this encounter Visit Diagnoses Not on filedocumented in this encounter Care Teams Room Service Clerk Relationship Specialty Start Date End Date Trista Alvarado MD [address] [place] [id number] PCP - General Family Medicine 04/21/23 documented as of this encounter
--- OUTSIDE RECORDS SUMMARY | 2025-01-21 09:25 | XMS_ITS | Encounter Summary ---
Author Organization [facility] Address [address] [facility] [place] [address] Care Team Providers Care Tipple Supervisor Name Role Phone Trista Alvarado MD Primary Care Provider [phone] Encounter Details Date Type Department Care Team ([facility] Contact Info) Description 01/17/2025 Orders Only [facility] [address] [place] [address] Song Covarrubias MD [address] [place] [address] Social History Tobacco Use Types [...] Visit [facility] [address] [place] [address] Song Covarrubias MD [address] [place] [address] 04/25/2025 9:00 AM EDT Office Visit [facility] [address] [facility] [place] [address] Faiza Almendarez PA [address] [place] [address] [place] [address] documented as of this encounter Procedures Procedure Name Priority Date/Time Associated Diagnosis Comments NM THYROID UPTAKE Routine 01/17/2025 9:04 AM EDT documented in this encounter Results * NM thyroid uptake (01/17/2025 9:04 AM EDT) Anatomical Region Laterality Modality Head and Neck Nuclear Medicine us Song Covarrubias MD IMG NM PROCEDURES Final Resul t documented in this encounter Visit Diagnoses Not on filedocumented in this encounter Care Teams Tipple Supervisor Relationship Specialty Start Date End Date Trista Alvarado MD [address] [facility] [place] [address] PCP - General Family Medicine 04/21/23 documented as of this encounter
--- OUTSIDE RECORDS SUMMARY | 2025-01-21 09:26 | XMS_ITS | Clinical Summary ---
Author Organization [facility] Address [address] [place] [address] Care Team Providers Care Industrial Truck Operator Name Role Phone Trista Alvarado MD Primary Care Provider [phone] Allergies Active Allergy Reactions Criticality Noted Date Comments Metformin 01/30/2024 Other Reaction(s): Hives Penicillins 01/30/2024 Other Reaction(s): hives Medications omeprazole (PriLOSEC) [address] capsule Take 10 mg by mouth in the morning. Take before meals. Do not crush or chew. Active venlafaxine XR (Effexor XR) 225 MG 24 hr tablet 1 tablet 10/22/2023 Act hortencia OXcarbazepine (Trileptal) 600 MG tablet 10/22/2023 Active lithium ER (Lithobid) 300 MG 12 hr tablet Take 900 mg by mouth Daily 10/22/2023 Active metFORMIN (Glucophage) 500 MG tabletIndication s:Hormone imbalance Take 1 tablet (500 mg) by mouth in the morning. Take with meals. 30 tablet 11 04/21/2024 5 Active methIMAzole (Tapazole) 5 MG tabletIndication s:Hyperthyroidis m Take 1 tablet (5 mg) by mouth Daily 90 tablet 1 01/18/2025 5 Active Active Problems Problem Noted Date Diagnosed Date Right hip pain 04/22/2023 Lumbar radiculopathy 04/22/2023 Encounters Date Type Department Care Team Description 01/18/2025 10:00 AM EDT Office Visit [facility] [address] [place] [address] Song Covarrubias MD Hyperthyroidism (Primary Dx); Long-term current use of lithium; Hair loss; Palpitation; Multinodular goiter 01/18/2025 Bamboo flowsheet [facility] [address] [place] [address] Song Covarrubias MD 01/17/2025 Orders Only [facility] [address] [place] [address] Song Covarrubias MD 01/13/2025 Orders Only [facility] [address] [place] [address] Song Covarrubias MD 01/11/2025 Travel 12/14/2024 10:20 AM EDT Office [facility] [address] [place] [address] Song Covarrubias MD Hyperthyroidism (Primary Dx); Long-term current use of lithium; Hair loss; Palpitation 12/14/2024 Bamboo flowsheet [facility] [address] [place] [address] Song Covarrubias MD from Last 3 Months Family History Medical History Relation Name Comments Alcohol abuse Father Bipolar disorder Father Colon cancer Father's Brother Heart failure Maternal Grandmother Bipolar disorder Mother Breast cancer Mother's Sister Colon cancer Paternal Grandmother Alcohol abuse Sister Relation Name Status Comments Father Father's Brother Maternal Grandmother Mother Mother's Sister Paternal Grandmother Sister Social History Tobacco Use Types Packs/Day Years Used Date Smoking Tobacco: Never Assessed Comments Unknown Sex and Gender Information Value Date Recorded Sex Assigned at Not on file Legal Sex Female 11:09 PM EDT Gender Identity Not on file Sexual Orientation Not on file Last Filed Vital Signs Vital Sign Reading Time Taken Comments Blood Pressure 144/88 12/14/2024 10:14 AM EDT Pulse 103 01/18/2025 10:05 AM EDT Temperature - - Respiratory Rate 20 01/18/2025 10:05 AM EDT Oxygen Saturation 98% 01/18/2025 10:05 AM EDT Inhaled Oxygen Concentration - - Weight 81.6 kg (180 lb) 01/18/2025 10:05 AM EDT Height 172.7 cm (5' 8 ) 01/18/2025 10:05 AM EDT Body Mass Index 27.37 01/18/2025 10:05 AM EDT Plan of Treatment Upcoming Encounters Date Type Department Care Team (Late st Contact Info) Description 04/19/2025 10:20 AM EDT Office Visit [facility] [address] [place] [address] Song Covarrubias MD [address] [place] [address] 04/25/2025 9:00 AM EDT Office Visit [facility] [address] [facility] [place] [phone] Faiza Almendarez PA [address] [facility] [place] [address] Health Maintenance Due Date Last Done Comments CT Colonography 1962 Colonoscopy 1962 Colorectal Cancer Screening 1962 FIT-DNA 1962 FIT 1962 FOBT 1962 Sigmoidoscopy 1962 Mammogram 09/02/2020 09/02/2019, 07/11, 05/28/2017, Additional history exists Influenza Vaccine (Season Ended) 2025 10/13/19 23, 05/28/2021 Cervical Cancer Screening 04/21/2029 HPV/Cotest 04/21/2029 Pap Smear 04/21/2029 04/21/2024 Procedures Procedure Name Priority Date/Time Associated Diagnosis Comments NM THYROID UPTAKE Routine 01/17/2025 9:0 4 AM EDT US THYROID Routine 01/13/2025 9:12 AM EDT THYROTROPIN RECEPTOR ANTIBODY Routine 12/20/2024 9:47 AM EDT Hyperthyroidism THYROID PEROXIDASE ANTIBODIES Routine 12/20/2024 9:02 AM EDT Hyperthyroidism THYROGLOBULIN ANTIBODIES Routine 025 9:02 AM EDT Hyperthyroidism TSH Routine 12/16/2024 11:20 AM EDT Hyperthyroidism T4, FREE Routine 12/16/2024 11:20 AM EDT Hyperthyroidism T3, FREE Routine 12/16/2024 11:20 AM EDT Hyperthyroidism PAP SMEAR Routine 04/21/2024 12:00 AM EDT from Last 3 Months or Most Recently Relevant to Health Maintenance Results * NM thyroid uptake (01/17/2025 9:04 AM EDT) Anatomical Region Laterality Modality Head and Neck Nuclear Medicine Song Covarrubias MD IMG NM PROCEDURES Final Resul t * US thyroid (01/13/2025 9:12 AM EDT) Anatomical Region Laterality Modality Head, Neck Ultrasound us Song Covarrubias MD IMG US PROCEDURES Final Resul t * Thyrotropin receptor antibody (12/20/2024 9:47 AM EDT) Blood Venous blood specimen / Unknown Song Covarrubias MD LAB BLOOD ORDERABLES Final Re sult EXTERNAL LAB * Thyroid peroxidase antibody (12/20/2024 9:02 AM EDT) Blood Venous blood specimen / Unknown Song Covarrubias MD LAB BLOOD ORDERABLES Final Re sult EXTERNAL LAB * Thyroglobulin Antibody (12/20/2024 9:02 AM EDT) Blood Venous blood specimen / Unknown Song Covarrubias MD LAB BLOOD ORDERABLES Final Re sult EXTERNAL LAB * T3, free (12/16/2024 11:20 AM EDT) Blood Venous blood specimen / Unknown Song Covarrubias MD LAB BLOOD ORDERABLES Final Re sult EXTERNAL LAB * TSH (12/16/2024 11:20 AM EDT) Blood Venous blood specimen / Unknown Song Covarrubias MD LAB BLOOD ORDERABLES Final Re sult EXTERNAL LAB * T4, free (12/16/2024 11:20 AM EDT) Blood Venous blood specimen / Unknown Song Covarrubias MD LAB BLOOD ORDERABLES Final Re sult Performing Organization Address City/[facility] Co de Phone Number EXTERNAL LAB * Pap Smear (04/21/2024 12:00 AM EDT) Swab Cervical swab / Unknown Faiza BURTON LAB CYTOLOGY ORDERABLES Final Re sult Performing Organization Address [facility] Co de Phone Number EXTERNAL LAB from Last 3 Months or Most Recently Relevant to Health Maintenance Insurance [employer] Care Teams Industrial Truck Operator Relationship Specialty Start Date End Date Trista Alvarado MD [address] [place] [address] PCP - General Family Medicine 04/21/23
--- OUTSIDE RECORDS SUMMARY | 2025-01-21 09:26 | XMS_ITS | Encounter Summary ---
Author Organization [facility] Address [address] [place] [address] Care Team Providers Care Application Processor Name Role Phone Trista Alvarado MD Primary Care Provider [phone] Encounter Details Date Type Department Care Team ([facility] Contact Info) Description 01/18/2025 Bamboo flowsheet [facility] [address] [place] [phone] Song Covarrubias MD [address] [place] [address] Social History Tobacco Use Types Packs/Day Years Used Date Smoking Tobacco: Never Assessed Comments Unknown Sex and Gender Information Value Date Recorded Sex Assigned at Not on file Legal Sex Female 11:09 PM EDT Gender Identity Not on file Sexual Orientation Not on file documented as of this encounter Plan of Treatment Upcoming Encounters Date Type Department Care Team ([facility] Contact Info) Description 04/19/2025 10:20 AM EDT Office Visit [facility] [address] [place] [address] Song Covarrubias MD [address] [place] [address] 04/25/2025 9:00 AM EDT Office Visit [facility] [address] [facility] [place] [place] [address] Faiza Almendarez PA [address] [place] [address] documented as of this encounter Visit Diagnoses Not on filedocumented in this encounter Care Teams Application Processor Relationship Specialty Start Date End Date Trista Alvarado MD [address] [facility] [place] [address] PCP - General Family Medicine 04/21/23 documented as of this encounter
[2025-01-21 09:50] LABS: Basophils Absolute Auto 0.1 10^3/uL (0.0-0.1); Basophils Percent Auto 1.7 % (0.2-2.0); Eosinophils Absolute Auto 0.4 10^3/uL (0.0-0.7); Eosinophils Percent Auto 6.7 % (0.9-7.0); Hematocrit 43.3 % (36.0-48.0); Hemoglobin 13.7 g/dL (12.0-16.0); Immature Granulocytes Abs Auto 0.03 10^3/uL (0.00-0.03); Immature Granulocytes Pct Auto 0.6 % (0.0-0.5); Lymphocytes Absolute Auto 1.6 10^3/uL (1.2-3.8); Lymphocytes Percent Auto 29.1 % (20.5-60.0); Mean Corpuscular HGB Conc 31.6 g/dL (29.9-35.2); Mean Corpuscular Hemoglobin 27.1 pg (26.7-34.0); Mean Corpuscular Volume 85.7 fL (81.0-99.0); Mean Platelet Volume 10.4 fL (9.5-13.5); Monocytes Absolute Auto 0.5 10^3/uL (0.3-0.8); Monocytes Percent Auto 8.3 % (1.7-12.0); Neutrophils Absolute Auto 2.9 10^3/uL (1.4-6.5); Neutrophils Percent Auto 53.6 % (43.0-75.0); Platelet Count 246 10^3/uL (150-450); Red Blood Count 5.05 10^6/uL (4.20-5.40); Red Cell Distribution Width 16.8 % (11.0-15.0); White Blood Count 5.4 10^3/uL (4.0-11.0)
[2025-01-21 11:59] LABS: Free T4 0.63 ng/dL (0.76-1.46)
[2025-01-21 12:04] LABS: Alanine Aminotransferase 19 U/L (14-59); Albumin Globulin Ratio 0.8; Albumin Level 3.2 g/dL (3.4-5.0); Alkaline Phosphatase 99 U/L (46-116); Aspartate Amino Transferase 13 U/L (15-37); Bilirubin Direct 0.1 mg/dL (0.0-0.2); Bilirubin Total 0.3 mg/dL (0.2-1.0); Free T3 2.19 pg/mL (2.18-3.98); Globulin 3.9 g/dL; Total Protein 7.1 g/dL (6.4-8.2)
== END 2025-01-21 09:22 | disposition home or self-care (01) ==
PROVIDERS: PCP Family Medicine; Visit Provider Internal Medicine
DX: E03.9 Hypothyroidism, unspecified (principal); E05.90 Thyrotoxicosis, unspecified without thyrotoxic crisis or storm
CPT/HCPCS: 36415; 80076; 84439; 84443; 84481; 85025

== ENCOUNTER 2025-02-18 10:13 | Outpatient (OUT) | payer OTHER, SELFPAY ==
--- OUTSIDE RECORDS SUMMARY | 2025-02-17 09:30 | XMS_ITS | Encounter Summary ---
Author Organization [facility] Address [address] [place] [address] Care Team Providers Care Dowel Sticker Operator Name Role Phone Julianne Prater MD Primary Care Provider [phone] Encounter Details Date Type Department Care Team (Latest Contact Info) Description 02/17/2025 9:30 AM EDT - 02/17/2025 11:59 PM EDT Hospital Encounter [facility] Physical Therapy [address] [place] [address] [phone] Caren Shoemaker, PT Arrived Discharge Disposition: Home or Self Care Social History Tobacco Use Types Packs/Day Years Used Date Smoking Tobacco: Never Assessed Comments Unknown Sex and Gender Information Value Date Recorded Sex Assigned at Female 02/14/2025 7:15 PM EDT Legal Sex Female 2:15 PM EDT Gender Identity Not on file Sexual Orientation Not on file documented as of this encounter Plan of Treatment Upcoming Encounters Date Type Department Care Team (Late st Contact Info) Description 02/21/2025 3:45 PM EDT Appointment [facility] Physical Therapy [address] [place] [phone] Alla Tran, ROLLING MACHINE OPERATOR AUTOMATIC 02/28/2025 11:15 AM EDT Appointment [facility] Physical Therapy [address] [place] [address] [phone] Alla Tran, ROLLING MACHINE OPERATOR AUTOMATIC 03/09/2025 11:15 AM EDT Appointment [facility] Physical Therapy [address] [place] [phone] Alla Tran, ROLLING MACHINE OPERATOR AUTOMATIC 03/14/2025 9:00 AM EDT Appointment [facility] Physical Therapy [address] [place] [phone] Alla Tran PTA 03/21/2025 9:00 AM EDT Appointment [facility] Physical Therapy [address] [place], [place] [phone] Alla Tran PTA documented as of this encounter Visit Diagnoses Not on filedocumented in this encounter Care Teams Dowel Sticker Operator Relationship Specialty Start Date End Date Julianne Prater MD [address] [address] PCP - General 02/17/25 documented as of this encounter
--- OUTSIDE RECORDS SUMMARY | 2025-02-18 10:15 | XMS_ITS | Clinical Summary ---
Author Organization [facility] Address [address] [place], [place] [id number] Care Team Providers Care Structural Metal Worker Name Role Phone Unavailable Primary Care Provider Unavailabl e Social History Tobacco Use Types Packs/Day Years [...] Vaccine (1 of 2) 2012 Covid-19 Vaccine (1 - 2023-25 season) 2024 Influenza Vaccine (#1) 2025 RSV Vaccine (1 - 1-dose 75+ series) 2037 Insurance [employer]
--- OUTSIDE RECORDS SUMMARY | 2025-02-18 10:15 | XMS_ITS | Clinical Summary ---
Author Organization [facility] Address [address] [place] [address] Care Team Providers Care Student Driving Instructor Name Role Phone Julianne Prater MD Primary Care Provider [phone] Encounters Date Type Department Care Team Description 02/17/2025 9:30 AM EDT - 02/17/2025 11:59 PM EDT Hospital Encounter [facility] Physical Therapy [address] [place] [phone] Caren Shoemaker, PT Arrived Discharge Disposition: Home or Self Care from Last 3 Months Social History Tobacco Use Types Packs/Day Years Used Date Smoking Tobacco: Never Assessed Comments Unknown Sex and Gender Information Value Date Recorded Sex Assigned at Female 02/14/2025 7:15 PM EDT Legal Sex Female 2:15 PM EDT Gender Identity Not on file Sexual Orientation Not on file Plan of Treatment Upcoming Encounters Date Type Department Care Team (Late st Contact Info) Description 02/21/2025 3:45 PM EDT Appointment [facility] Physical Therapy [address] [place] [phone] Alla Tran, SPRAY I PAINTER 02/28/2025 11:15 AM EDT Appointment [facility] Physical Therapy [address] [place] [address] [phone] Alla Tran, SPRAY I PAINTER 03/09/2025 11:15 AM EDT Appointment [facility] Physical Therapy [address] [place] [phone] Alla Tran, SPRAY I PAINTER 03/14/2025 9:00 AM EDT Appointment [facility] Physical Therapy [address] [place] [address] [phone] Alla Tran PTA 03/21/2025 9:00 AM EDT Appointment [facility] Physical Therapy [address] [phone] Alla Tran PTA Health Maintenance Due Date Last Done Comments Depression Screen 1974 HIV screen 1977 Hepatitis C screen 1980 Pap smear 1983 Cervical cancer screen 1992 HPV (without or with Pap) 1992 Breast cancer screen 2002 Lipids 2002 Colonoscopy 2007 Colorectal Cancer Screen 2007 FIT/FOBT: Average risk 2007 Fecal-DNA (Cologuard): [place] ge risk 2007 Sigmoidoscopy/CT colonography 2007 Pneumococcal 50+ years Vacci ne (1 of 1 - PCV) 2012 Shingles vaccine (1 of 2) 2012 COVID-19 Vaccine (4 2023-2 5 season) 2024 08/07/2021, 12/09/2020, 11/11/2020 Flu vaccine (#1) 03/11/2025 10/12/2022, 05/28/2021 DTaP/Tdap/Td vaccine (2 - Td or Tdap) 02/20/2032 02/19/2022 Respiratory Syncytial Virus (RSV) or age 60 yrs+ (1 - 1-dose 75+ series) 2037 Hepatitis A vaccine Aged Out No longe r eligible based on patient's age to complete this topic Hepatitis B vaccine Aged Out No longe r eligible based on patient's age to complete this topic Hib vaccine Aged Out No longer eligi ble based on patient's age to complete this topic Meningococcal (ACWY) vaccine Aged Out No longer eligible based on patient's age to complete this topic Meningococcal B vaccine Aged Out No l onger eligible based on patient's age to complete this topic Polio vaccine Aged Out No longer elig ible based on patient's age to complete this topic Insurance [employer] Care Teams Student Driving Instructor Relationship Specialty Start Date End Date Julianne Prater MD [address] [address] PCP - General 02/17/25
--- OUTSIDE RECORDS SUMMARY | 2025-02-18 10:27 | XMS_ITS | CCD ---
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 Designer Name Role Phone Paresh Calixto Unavailable Seb Barry Unavailable Goldy Glover Unavailable DR SEB BARRY Attending Unavailable ASHA, DR SEB Reyes Consulting [...] Admitting Unavailable MD Helio Barry Attending Provider [phone] MD Seb Barry Primary Care Provider [phone] Helio Barry Unavailable NO FAMILY, PHYSICIAN Primary Care Provider Unava MD Pan Gutierrez Attending Provider SEB BARRY Primary Care Physician [phone] NO FAMILY, PHYSICIAN Primary Care Provider Unava MD Pan Gutierrez Attending Provider [phone] MD Seb Barry Primary Care Provider [phone] MD Dieter Loco Attending Provider NO FAMILY, PHYSICIAN Primary Care Provider Unava MD Pan Gutierrez Attending Provider NO FAMILY, PHYSICIAN Primary Care [...] Attending Unavailable Adamaris Hill APRN Attending Provider [phone] NON STAFF Primary Care Provider UnavailSeb Martínez [...] able Seb Barry MD Primary Care Provider [phone] NKANSAH-AMANKRA, HAMILTON Attending Unavail able NKANSAH-AMANKRA, HAMILTON Attending Unavail able NKANSAH-AMANKRA, HAMILTON Referring Unavail able NKANSAH-AMANKRA, HAMILTON Admitting Unavail able CROW, DO Ronobir R Admitting Unavailabl e CROW DO Ronobir R Attending Unavailabl ignacio MARIA DO Ronobir R Attending Unavailabl Brandon Walls Consulting Unavailable DO Emmanuel MARIAr R Admitting UnavailBrandon Almaraz Consulting Unavailable Brandon Kulkarni Consulting Unavailable NO FAMILY, PHYSICIAN Primary Care Provider Unava ilable Pan Sanders MD Attending Provider Seb Barry MD Primary Care Provider [phone] Hamilton Malone MD Attending Provider NKANSRAMAKRISHNA-AMENZO, HAMILTON Attending Unavail able NKSANDEEP-AMENZO, HAMILTON Attending Unavail able Eri WALDROP Attending Unavailable Aditya MARIA Admitting Unavailable Brandon Kulkarni Consulting Unavailable Brandon Kulkarni Consulting Unavailable Brandon Kulkarni Consulting Unavailable NKBRIAN MIDDLETONNA Attending Unavail able NKANSRAMAKRISHNA-AMENZO, HAMILTON Attending Unavail able NKANSRAMAKRISHNA-AMANK, HAMILTON Referring Unavail able NKSANDEEP-AMENZO, HAMILTON Attending Unavail able NKBRIAN MIDDLETONNA Attending Unavail able Seb Barry MD Primary Care Provider NO FAMILY, PHYSICIAN Primary Care Provider Unava ilable Pan Sanders MD Attending Provider Seb Barry MD Primary Care Provider Song Covarrubias MD Attending Provider Seb Barry Primary Care Unavailable Marci, Ahmad Admitting Unavailable Marci, Ramakrishnamad Attending Unavailable NON STAFF Primary Care Unavailable Liz, Adamaris M Admitting Unavailable Liz, Adamaris M Attending Unavailable Pan Sanders Admitting Unavailab le Pan Sanders Attending Unavailab le NO FAMILY, PHYSICIAN Primary Care Unavailable Seb Barry Primary Care Unavailable Nkansah-Amankra, Hamilton Admitting Unavail able NkIsabella Hamilton Attending Unavail able Seb Barry Admitting Unavailable Seb Barry Attending Unavailable MARCI, RAMAKRISHNAMAOsiris F Attending Unavailable SEB BARRY Referring Unavailable MARCI, AHMAOsiris F Attending Unavailable FAIZA ALMENDAREZ Attending Unavailable SCOOBY FITZGERALD Attending Unavailable MARCI, AHMAD F Referring Unavailable Julianne Prater MD Primary Care Provider [phone] Allergies Allergy Classification Reported Allergen(s) Allergy Type Date of Onset Reaction(s) Facility (14 sources) Penicillins Drug allergy 4 [facility] (20 sources) metFORMIN; Translations: [metformin] Drug Allergy 4 Weal (disorder) [facility] (8 sources) Substance with penicillin structure and antibacterial mechanism of action (substance) Drug allergy [facility] Other (20 sources) Penicillin; Translations: [penicillin] Drug Allergy Weal (disorder) [facility] (15 sources) Penicillins Drug Allergy [address] [facility] (1 source) metFORMIN Drug Allergy 5 [facility] (1 source) Penicillins Drug allergy (disorder) 5 [facility] Medications Current Medications Medication Drug Class(es) Dates Sig (Normalized) Sig (Original) aspirin 81 mg chewable tablet (7 sources) Platelet Aggregation Inhibitor, Nonsteroidal Anti-inflammatory Drug take 1 tablet by mouth every twenty-four hours Aspirin 81 MG 1 tablet Orally Once a day PRN Active Calcium Carbonate (14 sources) Start: 11-17-2023 take 1 tablet by mouth twice daily calcium carbonate = 1 tab(s), Oral, BID, Refills(s) 0 Start Date: 11/17/23 Status: Ordered Start: 10-22-2023 End: 08-18-2024 take 1 tablet by mouth twice daily at mealtime Calcium Carbonate 500 mg calcium (1,250 mg) tablet Discontinued 1 TAB PO Twice daily October 22, 2023 12:00am August 18, 2024 9:04am FreeTextSi tablet with meals Orally Twice a day; Note: Source Status: Taking; Provider: Asha Cadet ( ) take 1 tablet by feliberto th every twelve hours Calcium 500 MG 1 tablet with meals Orally Twice a day Active cholecalciferol 0.05 mg oral tablet (20 sources) Vitamin D take 1 tablet by mouth in the morning cholecalciferol (Vitamin D-3) 50 MCG (1999 UT) tablet Take 50 mcg by mouth in the morning. Active take 1 capsule by mouth once arjun ly Vitamin D3 50 MCG (1999) take 1 capsule by mouth once daily for 90 Not-Taking ciprofloxacin 500 mg oral tablet (1 source) Quinolone Antimicrobial Start: 05-28-2024 take 1 tablet by mouth once daily Cipro 500 mg Tab See Instructions, 1 tab po day prior to cysto, 1 tab po following cysto, # 2 tab(s), Refills(s) 0, Pharmacy: [facility]/pharm[facility] #[id number], 170, cm, 05/25/24 10:38:00 EDT, Height/Length Dosing, 84, kg, 05/25/24 10:38:00 EDT, Weight Dosing Start Date: 05/28/24 Status: Ordered docusate sodium 100 mg oral capsule (9 sources) Start: 08-09-2024 take 1 capsule by mouth twice daily Docusate Sodium (Colace) 100 mg capsule Active 100 MG PO Twice daily August 18, 2024 1:00am Start: 07-26-2024 take 1 capsule by mouth twice daily Colace 100 mg Cap 100 mg = 1 cap(s), Oral, BID, Refills(s) 0 Start Date: 07/26/24 Status: Ordered Start: 07-22-2024 take 1 capsule by me ut twice daily as needed for constipation Colace 50 mg oral capsule 50 mg = 1 cap(s), Oral, BID, PRN for constipation, # 60 cap(s), Refills(s) 0, Pharmacy: [facility]/pharmacy #[id number], 174, cm, 07/06/24 9:03:00 EST, Height/Length Dosing, 81.8, kg, 07/06/24 9:03:00 EST, Weight Dosing Start Date: 07/22/24 Status: Ordered estradiol 0.1 mg/ml vaginal cream (11 sources) Estrogen Start: 04-21-2024 End: 05-21-2024 estradiol (Estrace) 0.1 MG/G M vaginal cream Indications: Hormone imbalance Insert 2 g into the vagina Daily Apply 1/2 APPLICATOR daily for 2 weeks 45 g 3 04/21/2024 05/21/2024 Active Start: 02-11-2024 Estradiol (Est race) 0.01 % (0.1 mg/gram) cream Active 1 GM VAGINAL Twice a Week 42.5 February 11, 2024 12:00am Folate (2 sources) Folate Active LORazepam 0.5 [...] a day for 4 days f41.1 Active methIMAzole 5 mg oral tablet (5 sources) Thyroid Hormone Synthesis Inhibitor Start: 01-18-2025 End: 07-17-2025 take 1 tablet by mouth once daily methIMAzole (Tapazole) 5 MG tablet Indications: Hyperthyroidism Take 1 tablet (5 mg) by mouth Daily 90 tablet 1 01/18/2025 07/17/2025 Active [place] 0-Sjv-Fuw-Fish Oil (Fish Oil) 1,000 (120-180) mg capsule (2 sources) Start: 08-18-2024 take 1 capsule by mouth once daily in the morning [place] 9-Rfv-Llo-Fish Oil (Fish Oil) 1,000 (120-180) mg capsule Active 1 CAP PO Every morning August 18, 2024 1:00am Start: 08-18-2024 take 1 capsule by mo [facility] once daily in the morning [place] 1-Eho-Crq-Fish Oil (Fish Oil) 1,000 (120-180) mg capsule Active 1 CAP PO Every morning August 18, 2024 12:00am omeprazole 20 mg delayed release oral capsule (20 sources) Proton Pump Inhibitor Start: 10-22-2023 take 1 capsule by mouth once daily in the morning Omeprazole 20 mg capsule,delayed release(DR/EC) Active 20 MG PO Every morning October 22, 2023 12:00am Medication Name: Omeprazole; Note: Source Status: TakingOT; Provider: Asha Cadet ( ) take 1 capsule by mouth before m ealtime omeprazole (PriLOSEC) [address] capsule Take 10 mg by mouth in the morning. Take before meals. Do not crush or chew. Active Omeprazole OTC A ctive oxyCODONE hydrochloride 5 mg oral capsule (4 sources) Opioid Agonist Start: 08-18-2024 take 1 [...] pain, # 5 tab(s), Refills(s) 0, [id number] 174, cm, 07/06/24 9:03:00 EST, Height/Length Dosing, 81.8, kg, 07/06/24 9:03:00 EST, Weight Dosing Start Date: 07/22/24 Status: Ordered phenazopyridine hydrochloride 100 mg oral tablet (1 source) Start: 06-24-2024 End: 06-27-2024 take 1 tablet by mouth three times daily Pyridium 100 mg Tab 100 mg = 1 tab(s), Oral, TID, X 3 day(s), # 9 tab(s), Refills(s) 0, [id number] 174, cm, 06/18/24 15:46:00 EST, Height/Length [...] mg / trimethoprim 80 mg oral tablet (12 sources) Dihydrofolate Reductase Inhibitor Antibacterial, Sulfonamide Antimicrobial Start: 08-18-2024 take 1 tablet by mouth twice daily Sulfamethoxazole-T rimethoprim (Bactrim) 400-80 mg tablet Active 1 TAB PO Twice daily August 18, 2024 1:00am Start: 07-22-2024 End: 07-27-2024 Bactrim D.S. 800 mg-160 mg T ab 1 tab(s), Oral, BID for 5 day(s), 10 tab(s), Refill(s) 0, [facility] #[id number], 174, cm, 07/06/24 9:03:00 EST, Height/Length Dosing, 81.8, kg, 07/06/24 9:03:00 EST, Weight Dosing Start Date: 07/22/24 Stop Date: 07/27/24 Status: Ordered Start: 05-19-2024 End: 06-04-2024 take 1 tablet by mouth twice daily Sulfamethoxazole-Trimethoprim (Bactrim Ds) 800-160 mg tablet Discontinued 1 TAB PO Twice daily 14 May 19, 2024 12:00am June 04, 2024 12:24pm Start: 11-26-2022 take 1 tablet by feliberto th every twelve hours Bactrim DS 800-160 MG 1 tablet Orally Twice a day for 10 day(s) Nov, Active tretinoin 1 mg/ml topical cream (20 sources) Retinoid Start: 11-17-2023 tretinoin Top 0.1% Crm 1 susan, Topical, Once a day (at bedtime), Refill(s) 0 Start Date: 11/17/23 Status: Ordered Repeat number: 1 Start: 10-22-2023 End: 04-21-2024 Tretinoin 0.1 % cream Active 1 APPLIC TOPICAL 6 TIMES PER WEEK October 22, 2023 12:00am 24 hr venlafaxine [...] Active 1 TAB PO Every morning October 22, 2023 12:00am FreeTextSi tablet with [...] Drug Class(es) Dates Sig (Normalized) Sig (Original) ciprofloxacin 3 mg/ml / dexamethasone 1 mg/ml otic suspension (13 sources) Corticosteroid, Quinolone Antimicrobial Start: 01-03-2021 Ciprodex 0.3-0.1 % 4 drops into affected ear Otic Twice a day for 7 day(s) December, Not-Taking cyclobenzaprine hydrochloride 10 mg oral tablet (13 sources) Muscle Relaxant Start: 10-22-2023 End: 10-22-2023 [...] 3 times a day prn Active Iron Fum,Io-Slhqs-Puacu,C No.9 (Iron Folate Plus) 125 mg iron- 1 mg capsule (9 sources) Start: 10-22-2023 End: 10-22-2023 take 1 capsule by mouth once daily at mealtime Iron Fum,Yg-Stpiq-Bscle,C No.9 (Iron Folate Plus) 125 mg iron- 1 mg capsule Discontinued 1 CAP PO Daily October 21, 2023 11:00pm October 22, 2023 8:33am administer between meals Start: 10-22-2023 End: 10-22-2023 take 1 capsule by mouth once daily at mealtime Iron Fum,Eu-Tnrxi-Vsyez,C No.9 (Iron Folate Plus) 125 mg iron- 1 mg capsule Discontinued 1 CAP PO Daily October 22, 2023 12:00am October 22, 2023 9:33am administer between meals lithium carbonate 600 mg oral capsule (20 sources) Start: 06-24-2024 End: 08-18-2024 take 1 capsule by mouth once daily at bedtime [place] Carbonate 600 mg capsule Discontinued 600 MG PO Daily at bedtime June 24, 2024 1:00am August 18, 2024 9:04am Start: 11-17-2023 take 1 tablet by feliberto th at bedtime lithium 300 mg oral tablet 300 mg = 1 tab(s), Oral, Bedtime, Refills(s) 0 Start Date: 11/17/23 Status: Ordered Repeat number: 1 Start: 11-17-2023 take 3 tablets by mo [facility] at bedtime lithium 300 mg oral tablet 900 mg = 3 tab(s), Oral, Bedtime, Refills(s) 0 Start Date: 11/17/23 Status: Ordered Start: 10-22-2023 lithium ER (Li thobid) 300 MG 12 hr tablet Take 900 mg by mouth Daily 10/22/2023 Active Start: 10-22-2023 End: 06-24-2024 take 3 tablets by mouth three times daily at bedtime [place] Carbonate 300 mg tablet extended release Discontinued MG PO Three times daily October 22, 2023 9:33am June 24, 2024 11:17am FreeTextSi tablets Orally at HS; Note: Source Status: [id number] mg as needed; Refills: 0; Provider: Asha Cadet ( ) take 3 tablets by [facility] at bedtime [place] Carbonate ER 300 MG 3 tablets Orally at HS for 90 days 900-1200 mg as needed Active take 4 tablets by [facility] every twenty-four hours [place] Carbonate ER 300 MG 4 tablets Orally Once a day for 90 days 900-1200 mg as needed Active melatonin 5 mg oral tablet (20 sources) Start: 09-19-2021 take 1 tablet by mouth once daily in the evening Melatonin 5 MG 1 tablet in the evening Orally Once a day for 30 day(s) Sep, Not-Taking metFORMIN hydrochloride 500 mg oral tablet (13 sources) Biguanide Start: 04-21-2024 End: 04-21-2025 take 1 tablet by mouth at mealtime metFORMIN (Glucophage) 500 MG tablet Indications: Hormone imbalance Take 1 tablet (500 mg) by mouth in the morning. Take with meals. 30 tablet 11 04/21/2024 02/05/2025 Discontinued nitrofurantoin, macrocrystals 100 mg oral capsule (4 sources) Nitrofuran Antibacterial Start: 06-04-2024 End: 06-21-2024 take 1 capsule by mouth twice daily at mealtime Nitrofurantoin Macrocrystal 100 mg capsule Discontinued 100 MG PO Twice daily June 04, 2024 12:00am June 21, 2024 11:50am must administer with a meal/food OXcarbazepine 150 mg oral tablet (20 sources) Anti-epileptic Agent Start: 06-24-2024 End: 08-18-2024 take 1 tablet by mouth once daily Oxcarbazepine (Trileptal) 150 mg tablet Discontinued 150 MG PO Daily June 24, 2024 1:00am August 18, 2024 9:05am Start: 11-17-2023 take 2 tablets by mo uth twice daily oxcarbazepine 300 mg Tab 300 mg = 1 tab(s), Oral, BID, Take one tablet in morning and Two tablets at night, Refills(s) 0 Start Date: 11/17/23 Status: Ordered Repeat number: 1 Start: 11-17-2023 take 1 tablet by feliberto th once daily oxcarbazepine 300 mg Tab 300 mg = 1 tab(s), Oral, Daily, Refills(s) 0 Start Date: 11/17/23 Status: Ordered Start: 10-22-2023 OXcarbazepine (Trileptal) 600 MG tablet 10/22/2023 Active Start: 10-22-2023 take 1 [...] MG PO Once October 22, 2023 9:33am June 24, 2024 11:17am FreeTextSig: take 1 tablet by mouth once [...] Active traMADol hydrochloride 50 mg oral tablet (15 sources) Opioid Agonist Start: 10-22-2023 End: 10-22-2023 take 1 tablet by mouth once daily at bedtime as needed Tramadol 50 mg tablet Discontinued 50 MG PO Daily October 22, [...] Classification Problem Date Documented Da te Episodic/Chronic Abdominal pain (1 source) Abdominal pain; Translations: [Unspecified abdominal pain] Onset: 07-25-2024 Episodic Anxiety disorders (17 sources) Anxiety 11-17-2023 Chronic Cardiac dysrhythmias (4 sources) Palpitations; Translations: [Palpitations] 12-14-2024 Episodic Malaise and fatigue (11 sources) Fatigue; Translations: [Other fatigue] Onset: 05-17-2022 Episodic Menopausal disorders (20 sources) Menopausal and postmenopausal disorders; Translations: [Unspecified menopausal and perimenopausal disorder] Onset: 06-11-2024 Chronic Mood disorders (20 sources) Bipolar disorder; Translations: [Bipolar disorder, unspecified] Onset: 12-13-2021 Resolved: 02-05-2025 Chronic Other aftercare (8 sources) H/O: high risk medication; Translations: [Other [facility]current[facility] drug therapy] Episodic Other aftercare (5 sources) Other [facility] (current) drug therapy; Translations: [OTH HALFWAY CURRENT DRUG THERAPY] Onset: 05-17-2022 Episodic Other aftercare (3 sources) Long-term current use of drug therapy; Translations: [Other [facility] (current) drug therapy] Onset: 07-25-2024 Episodic Other aftercare (4 sources) Long-term current use of lithium; Translations: [Other [place] drug therapy] 12-14-2024 Episodic Other bone disease and musculoskeletal deformities (2 sources) Adolescent idiopathic scoliosis; Translations: [Adolescent idiopathic scoliosis, lumbosacral region] Chronic Other bone disease and musculoskeletal deformities (1 source) Adolescent idiopathic scoliosis, lumbosacral region Chronic Other circulatory disease (2 sources) Elevated blood-pressure reading without diagnosis of hypertension; Translations: [Elevated blood-pressure reading, without diagnosis of hypertension] Episodic Other female genital disorders (6 sources) Vaginal dryness; Translations: [Other specified noninflammatory disorders of vagina] 02-11-2024 Episodic Other gastrointestinal disorders (1 source) Constipation, unspecified; Translations: [Constipation, unspecified] Onset: 07-26-2024 Episodic Other nervous system disorders (10 sources) Chronic pain; Translations: [Other chronic pain] Onset: 02-05-2025 Resolved: 02-05-2025 02-05-2025 Chronic Other nervous system disorders (1 source) Other chronic pain Chronic Other non-traumatic joint disorders (1 source) Pain in right hip Episodic Other nutritional; endocrine; and metabolic disorders (1 source) Obesity; Translations: [Obesity, unspecified] Onset: 07-26-2024 Chronic Other nutritional; endocrine; and metabolic disorders (2 sources) Body mass index 25-29 - overweight; Translations: [Body mass index (BMI) 29.0-29.9, adult] Episodic Other skin disorders (2 sources) Acne, unspecified; Translations: [Other acne] 10-22-2023 Episodic Other skin disorders (4 sources) Loss of hair; Translations: [Nonscarring hair loss, unspecified] 12-14-2024 Episodic Otitis media and related conditions (2 sources) Non-suppurative otitis media; Translations: [Unspecified nonsuppurative otitis media, left ear] Episodic Prolapse of female genital organs (20 sources) Cystocele; Translations: [Cystocele, unspecified] Onset: 06-11-2024 Chronic Rehabilitation care; fitting of prostheses; and adjustment of devices (1 source) Encounter for fitting and adjustment of other specified devices; Translations: [Encounter for fitting and adjustment of other specified devices] Onset: 08-18-2024 Chronic Residual codes; unclassified (14 sources) Sleep apnea 05-24-2024 Chronic Residual codes; [...] Translations: [Tobacco use] Episodic Residual codes; unclassified (17 sources) Chronic pain 11-17-2023 Episodic Spondylosis; intervertebral disc disorders; other back problems (8 sources) Solitary sacroiliitis; Translations: [Sacroiliitis, not elsewhere classified] Chronic Thyroid disorders (15 sources) Hyperthyroidism; Translations: [Thyrotoxicosis, unspecified without thyrotoxic crisis or storm] Onset: 01-13-2025 12-14-2024 Chronic Unclassified (3 sources) LOW BACK PAIN, UNSPECIFIED; Translations: [LOW BACK PAIN, UNSPECIFIED] Onset: 12-12-2022 Past or Other Problems Problem Classification Problem Date Documented Date Episodic/Chronic Acute and unspecified renal failure (6 sources) Acute renal failure syndrome; Translations: [Acute kidney failure, unspecified] Onset: 07-24-2024 Resolved: 02-05-2025 Episodic Acute myocardial infarction (17 sources) Myocardial infarction; Translations: [Acute myocardial infarction, unspecified] Onset: 02-05-2025 Resolved: 02-05-2025 05-24-2024 Chronic Comment on above: Outside Source Comme nt: Comment on above: 2003 Anxiety disorders (3 sources) Anxiety disorder due to a general medical condition; Translations: [Anxiety disorder due to known physiological condition] Onset: 02-05-2025 Resolved: 02-05-2025 02-05-2025 Episodic Complication of device; implant or graft (10 sources) Infection of bladder catheter; Translations: [Infection and inflammatory reaction due to other urinary catheter, initial encounter] Onset: 07-30-2024 Resolved: 02-05-2025 Episodic Disorders of lipid metabolism (20 sources) Hypercholesterolemia; Translations: [Pure hypercholesterolemia, unspecified] Onset: 02-05-2025 Resolved: 02-05-2025 11-17-2023 Chronic Esophageal disorders (18 sources) Gastroesophageal reflux disease; Translations: [Gastroesophageal reflux disease without esophagitis] Onset: 07-25-2024 Resolved: 02-05-2025 05-24-2024 Chronic Essential hypertension (20 sources) Essential (primary) hypertension; Translations: [Essential hypertension] Onset: 05-17-2022 Resolved: 02-05-2025 11-17-2023 Chronic Genitourinary symptoms and ill-defined conditions (20 sources) Urinary incontinence; Translations: [Unspecified urinary incontinence] Onset: 05-25-2024 Resolved: 02-05-2025 02-11-2024 Chronic Genitourinary symptoms and ill-defined conditions (18 sources) Dysuria; Translations: [Dysuria] Onset: 05-19-2024 Resolved: 02-05-2025 05-19-2024 Episodic Headache; including migraine (17 sources) Migraine; Translations: [Migraine, unspecified, not intractable, without status migrainosus] Onset: 02-05-2025 Resolved: 02-05-2025 05-24-2024 Chronic Immunizations and screening for infectious disease (4 sources) Exposure to sexually transmissible disorder; Translations: [Contact with and (suspected) exposure to infections with a predominantly sexual mode of transmission] 04-21-2024 Episodic Miscellaneous mental health disorders (3 sources) Primary insomnia; Translations: [Primary insomnia] Onset: 09-26-2016 Resolved: 02-05-2025 02-05-2025 Chronic Neoplasms of unspecified nature or uncertain behavior (20 sources) Neoplasm of uncertain behavior of bladder; 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] Onset: 06-11-2024 Resolved: 02-05-2025 Episodic Nonmalignant breast conditions (20 sources) Breast lump; Translations: [Unspecified lump in the right breast, unspecified quadrant] Onset: 11-19-2023 Resolved: 02-05-2025 10-22-2023 Episodic Other acquired deformities (20 sources) Scoliosis deformity of spine; Translations: [Scoliosis, unspecified] Onset: 02-05-2025 Resolved: 02-05-2025 11-17-2023 Chronic Other and ill-defined heart disease (20 sources) Heart disease; Translations: [Heart disease, unspecified] Onset: 02-05-2025 Resolved: 02-05-2025 11-17-2023 Chronic Other diseases of bladder and urethra (20 sources) Urethral caruncle; Translations: [Urethral caruncle] Onset: 06-11-2024 Resolved: 02-05-2025 Episodic Other endocrine disorders (2 sources) Disorder of endocrine system; Translations: [Endocrine disorder, unspecified] 04-21-2024 Episodic Other female genital disorders (2 sources) Vaginal discharge; Translations: [Other specified noninflammatory disorders of vagina] 04-21-2024 Episodic Other non-traumatic joint disorders (5 sources) Pain in right hip joint; Translations: [Pain in right hip] Onset: 04-22-2023 04-22-2023 Episodic Other non-traumatic joint disorders (10 sources) Hip pain; Translations: [Pain in right hip] Onset: 04-22-2023 04-22-2023 Episodic Other nutritional; endocrine; and metabolic disorders (20 sources) Overweight; Translations: [Overweight] Onset: 02-05-2025 Resolved: 02-05-2025 11-17-2023 Episodic Other nutritional; endocrine; and metabolic disorders (20 sources) Overweight in adulthood with body mass index of 25 or more but less than 30; Translations: [Body mass index (BMI) 28.0-28.9, adult] Onset: 02-05-2025 Resolved: 02-05-2025 11-19-2023 Episodic Other screening for suspected conditions (not mental disorders or infectious disease) (20 sources) Encounter for screening mammogram for malignant neoplasm of breast; Translations: [Ultrasonography of breast abnormal] Onset: 02-01-2014 Resolved: 02-05-2025 Episodic Other skin disorders (20 sources) Acne; Translations: [Acne, unspecified] Onset: 02-05-2025 Resolved: 02-05-2025 10-22-2023 Episodic Residual codes; unclassified (3 sources) Obstructive sleep apnea syndrome; Translations: [Obstructive sleep apnea (adult) (pediatric)] Onset: 09-26-2016 Resolved: 02-05-2025 02-05-2025 Chronic Residual codes; unclassified (2 sources) Postmenopausal state; Translations: [Asymptomatic menopausal state] 04-21-2024 Episodic Residual codes; unclassified (1 source) Other specified postprocedural states; Translations: [Other specified postprocedural states] Onset: 08-18-2024 Episodic Septicemia (except in labor) (3 sources) Sepsis, unspecified organism; Translations: [A41.9] Onset: 07-25-2024 Episodic Spondylosis; intervertebral disc disorders; other back problems (20 sources) Radiculopathy, lumbar region; Translations: [Lumbar radiculopathy] Onset: 04-22-2023 Episodic Unclassified (1 source) Lumbar pain M54.50 Unclassified (1 source) Other low back pain M54.59 Unclassified (1 source) LOW BACK PAIN, UNSPECIFIED; Translations: [LOW BACK PAIN, UNSPECIFIED] Onset: 12-06-2022 Urinary tract infections (15 sources) Urinary tract infectious disease; Translations: [Urinary tract infection, site not specified] Onset: 06-04-2024 05-19-2024 Episodic Results Test Name Value Interpretation Reference Range Facility NM thyroid w uptakeon 2024 NM thyroid w uptake [facility] [place] [address] [place] [address] Nuclear Medicine Report Signed Patient: Rain Sweeney MR#: [id number] 609 : 1960 Acct:[id number] Age/Sex: 64 / F ADM Date: 01/13/25 Loc: Room: Type: [facility] Attending Dr: Song Covarrubias MD Copies to: MD Pieter Sprague II, MD Ordering Provider: Song Covarrubias MD Date of Service: 01/13/25 NM/NM thyroid w uptake: E05.90 NM thyroid w uptake 01/13/2025 7:42 AM SIGNS AND SYMPTOMS: Thyrotoxicosis PROTOCOL: Scintigraphic images of the neck were obtained 4 and 24 hours after oral radiotracer circulation. COMPARISON: 01/13/2025. RADIOPHARMACEUTICAL: 206 uCi of oral I-123 FINDINGS: There is a cold nodule at the inferior pole of the left thyroid lobe. There is otherwise symmetric radiotracer accumulation. 4 hour uptake value: 11.5% (normal) 24 hour uptake value: 28.3% (normal) NM/NM thyroid w uptake IMPRESSION: Normal 4 and 24 hour thyroid uptake values. There is a cold nodule at the inferior pole of the left thyroid lobe. This corresponds to the nodule at the inferior pole on the left seen on previous ultrasound. Impression dictated by: Pieter Carlton M.D. 01/14/2025 8:18 AM Dictation Location: [place] [address] Transcribed By: BRYSON 01/14/25817 Dictated By: Pieter Carlton II, MD 01/14/25815 Signed By: 01/14/25817 Normal [facility] US thyroidon 01-13-2025 US thyroid [facility] [address] Ultrasound Report Signed Patient: Rain Sweeney MR#: [id number] 609 : 1960 Acct:[id number] Age/Sex: 64 / F ADM Date: 01/13/25 Loc: Room: Type: [facility] Attending Dr: Song Covarrubias MD Ordering Provider: Song Covarrubias MD Date of Service: 01/13/25 US/US thyroid: E05.90 Copies to: Song oCvarrubias MD THYROID ULTRASOUND CLINICAL DATA: Low thyroid levels COMPARISON: None The right thyroid lobe measures 5.2 x 1.7 x 2.1 cm . Left lobe measures 5.2 x 1.9 x 2.2 cm. The isthmus measures 3 - 4 mm . The thyroid lobes are heterogeneous and hyperemic. There is an isoechoic nodule at the superior pole on the right with hypoechoic rim measuring 8 x 5 x 8 mm. There is also a nodule with similar characteristics at the inferior pole on the left that measures 15 x 13 x 15 mm. US/US thyroid IMPRESSION: HETEROGENEOUS HYPEREMIC THYROID. BILATERAL THYROID NODULES. Impression dictated by: Denae Kellogg M.D. 01/13/2025 9:02 AM Dictation Location: [place] [address] Tech: Nara Heaton Transcribed By: BRYSON 01/13/25901 Dictated By: Denae Kellogg MD 01/13/25899 Signed By: 01/13/25901 Normal [facility] Laboratory - Chemistry and C hemistry - challengeon 12-16-2024 Free T4 [Mass/Vol] 0.83 ng/dL 0.76-1.46 [facility] TSH Qn 0.015 m[IU]/L Low 0.358-3.74 0 [facility] No Panel Informationon 12-16 Free Triiodothyronine 3.32 pg/mL 2.18-3.98 Fir [facility] Serum or plasma thyroglobuli n antibody assay (units/volume)on 12-16-2024 Thyroglobulin Ab Qn Serum or plasma thyroglobulin antibody assay (units/volume) Abnormal 0.0-0.9 [facility] Comment on above: Thyroglobulin Antibo dy measured by Bambi ZetrOZMethodologyIt should be noted that the presence of thyroglobulinantibodies may not be pathogenic nor diagnostic, especiallyat very low levels. The assay oil rigger has found thatfour percent of individuals without evidence of thyroiddisease or autoimmunity will have positive TgAb levels upto 4 IU/mL.Performed at: [facility] [address] [id number] Director: Reji Williamson PhD, Phone: [phone] Serum or plasma thyroperoxid ase antibody assay (units/volume)on 12-16-2024 TPO Ab Qn Serum or plasma thyroperoxidase antibody assay (units/volume) 0-34 [facility] Serum thyrotropin receptor a ntibody assay (units/volume)on 12-16-2024 TSH receptor Ab Qn (S) Serum thyrotropin receptor antibody assay (units/volume) 0.00-1.75 [facility] Comment on above: Performed at: [facility] [address] [id number] Director: Danilo Lloyd MD, Phone: [phone] Cholesterol in LDL Calc [Mas s/Vol]on 11-18-2024 Cholesterol in LDL [Mass/Vol] Cholesterol in LDL [Mass/volume] in Serum or Plasma by calculation [facility] Comment on above: <100 mg/dl [id number] 0-129 mg/dl NEAR OR ABOVE [id number] mg/dl BORDERLINE [id number] mg/dl HIGH>190 mg/dl VERY HIGH Cholesterol in VLDL Calc [Ma ss/Vol]on 11-18-2024 Cholesterol in VLDL [Mass/Vol] Cholesterol in VLDL [Mass/volume] in Serum or Plasma by calculation [facility] Estimated glomerular filtrat ion rate (GFR) non- Americanon 04-10-2025 GFR/1.73 sq M.predicted among non-blacks MDRD (S/P/Bld) [Vol rate/Area] Estimated glomerular filtration rate (GFR) non- Low >=60 mL/min/1.7 3m 2 [facility] Glucose mean value [Mass/vol ume] in Blood Estimated from glycated hemoglobinon 11-18-2024 Average glucose Estimated from glycated hemoglobin (Bld) [Mass/Vol] Glucose mean value [Mass/volume] in Blood Estimated from glycated hemoglobin [facility] Hemoglobin A1c percentageon 11-18-2024 HbA1c (Bld) [Mass fraction] Hemoglobin A1c percentage 4.5-6.2 [facility] Comment on above: ADA RECOMMENDED LIMI T 4.0 - 6.0ADA THERAPEUTIC TARGET < 7.0ACTION SUGGESTED> 7.0 Laboratory - Chemistry and C hemistry - challengeon 11-18-2024 Cholesterol [Mass/Vol] 210 mg/dL High <=200 Fi [facility] Cholesterol in HDL [Mass/Vol] 83 mg/dL High 40-60 [facility] Comment on above: > or =60 mg/dl - LOW CARDIOVASCULAR RISK<40 mg/dl - HIGH CARDIOVASCULAR RISK Creatinine [Mass/Vol] 1.00 mg/dL 0.55-1.02 [facility] GFR/1.73 sq M.predicted MDRD (S/P/Bld) [Vol rate/Area] mL/min/{1.73_m2} >=60 mL/min/1.7 3m 2 [facility] Glucose [Mass/Vol] 104 mg/dL 74-106 [facility] Triglyceride [Mass/Vol] 98 mg/dL <=150 F [facility] TSH Qn 0.020 m[IU]/L Low 0.358-3.74 0 [facility] No Panel Informationon 11-18 [place] Level 0.7 mmol/L 0.5-1.2 [facility] Comment on above: A concentration of 0 .5-0.8 mmol/L is advised for long-termuse; concentrations of up to 1.2 mmol/L may be necessaryduring acute treatment. Detection Limit = 0.1 <0.1 indicates None DetectedPerformed at: [facility] [place], [place] [id number] Director: Reji Williamson PhD, Phone: [phone] Serum or plasma total choles terol/high density lipoprotein (HDL) cholesterol mass yoselyn 11-18-2024 Cholesterol.total/Linda sterol in HDL [Mass ratio] Serum or plasma total cholesterol/high density lipoprotein (HDL) cholesterol mass rat [facility] Comment on above: 3.3 - 4.4 LOW RISK4. 4 - 7.1 AVERAGE RISK7.1 - 11.0 MODERATE RISK>11.0 HIGH RISK Ambulatory Visit Summaryon 0 10-22-2024 Ambulatory Visit Summary Ambulatory Visit Summary RAIN SWEENEY :1960 Visit Date:10/22/2024 Ambulatory Visit Instructions Your Diagnosis Urinary retention [...] venlafaxine Procedures Performed Cystoscopy (07/22/2024), Cystoscopy (06/24/2024), OBSERVATION:PRID:PT:CVX:N OM:CYTO STAIN (04/21/2024), History of augmentation of breast, History of bilateral breast implants, History of nasal sinus surgery, Stapedectomy, Tubal ligation. Discharge Vitals Heart Rate (Peripheral) 95 Respiratory Rate 16 Blood Pressure 135/88 Height 67 in Height 170 cm Weight 180.779 lb Weight 82 kg BMI 28.37 What to do next Scheduled Follow-Up Appointments Friday 7:30 AM EDT Where: [facility] 2024 11:00 AM EDT Where: [facility] You Need to Schedule the Following Appointments Follow Up with GABBY RAMIREZ, HAMILTON, URL When: Where: Medications What How Much [...] 6 mL, 6 mL, Topical. For: Urinary retention, Bladder neoplasm of uncertain malignant potential, Stress incontinence, Urethral caruncle, Atrophic vaginitis Allergies penicillin (Hives) Problems Ongoing - Any problem that you are currently receiving treatment for. Acne Acute kidney injury Anxiety Atrophic vaginitis Bipolar illness Bladder neoplasm of uncertain malignant potential BMI 28.0-28.9,adult Catheter cystitis Chronic depression Chronic pain Cystocele with rectocele Dysuria Essential hypertension Gastroesophageal reflux disease Heart disease [...] she does not want to use the (more content not included)... Normal [facility] Urology Office/Clinic Noteon 10-22-2024 Urology Office/Clinic Note Urology Office/Clinic Note Chief Complaint Cysto HPI Staff Rain 64 year old female patient here for cysto. History of Present Illness Tests reviewed: UA I have reviewed the previous health record [...] HPI. Physical Exam Vitals & Measurements HR: 95(Peripheral) RR: 16 BP: 135/88 HT: 67 in HT: 170 cm WT: [...] the endoscopy suite. Patient is placed in _ position. Patient prepped in the usual fashion with Betadine solution. 2% Xylocaine Jelly is placed per Urethra. After waiting several minutes, the Cystoscope is introduced. The Urethra is: Normal The Bladder: left lateral wall papillary formation, resection recommended., Trabeculated: None (0) The Ureteral orifices: Show efflux of clear urine Specimens Removed: None Removal: Cystoscope is removed. The patient tolerated it well. Postoperative Information Patient is discharged home with antibiotic coverage. Follow up arranged. Assessment/Plan Rain 64 year old female patient here for cysto. 1. Urinary retention (R33.9: Retention of urine, unspecified) Pt had cysto IO today wo any complications. S/p retropubic (Supris) MUS 07/22/24. -Went to [...] emptying. Risks/benefits discussed. Pt wishes to proceed. 2. Bladder neoplasm of uncertain malignant potential [...] Cysto in 3 months to monitor. [1] -Will schedule Resection 3. Stress incontinence (N39.3: Stress incontinence (female) [...] prolapse with severe STACIA with coughing [4] Patient is status post cystoscopy with mid urethral sling, excision. On cystoscopic evaluation today there is concern for possible erosion with a papillary formation at the left lateral wall. We will proceed with a cystoscopy, transurethral resection of bladder tumor, possible excision. Risk, benefits, alternatives were discussed with the patient and she w (more content not included)... Normal [facility] Comment on above: Result Comment: Elec tronically Signed By: HAMILTON MALONE MD\.br\Date and Time Signed: 10/22/24 10:07 EDT\.br\Electronically Co-Signed By: Gamaliel Moody\.br\Date and Time Co-Signed: 10/22/24 09:23 EDT\.br\Electronically Co-Signed By: Gamaliel Moody\.br\Date and Time Co-Signed: 10/22/24 09:24 EDT ECG 12 lead ECGon 08-18-2024 ECG 12 lead ECG [facility] [address] Electrocardiograph Report Signed Patient: Rain Sweeney MR#: [id number] 609 : 1960 Acct:[id number] Age/Sex: 64 / F ADM Date: 08/18/24 Loc: [place] Room: Type: [facility] Attending Dr: Hamilton Malone MD Ordering Provider: [...] Roberto Diaz MD 0 08/18/24 1248 Normal [facility] Ambulatory Visit Summaryon 0 08-13-2024 Ambulatory Visit Summary Ambulatory Visit Summary RAIN SWENEEY :1960 Visit Date:08/13/2024 Ambulatory Visit Instructions Your [...] venlafaxine Procedures Performed Cystoscopy (07/22/2024), Cystoscopy (06/24/2024), OBSERVATION:PRID:[id number]:N OM:CYTO STAIN (04/21/2024), History of augmentation of breast, History of bilateral breast implants, History of nasal sinus surgery, Stapedectomy, Tubal ligation. What to do next Scheduled Follow-Up Appointments 2024 8:00 AM EST With: HAMILTON MALONE MD Where: [facility] [place] [address], [address] [place] [address]- You Need to Schedule the Following Appointments [...] including vitamins, herbs, eye drops, creams, and htad-spn-ulwsbor medicines. ??? Any problems you or family [...] the proced (more content not included)... Normal [facility] Urology Video Visit - Telehe blanca 08-13-2024 Urology Video Visit - Telehealth Urology [...] video communicat (more content not included)... Normal [facility] Comment on above: Result Comment: Elec tronically Signed By: GABBY RAMIREZ, HAMILTON\.br\Date and Time Signed: 08/13/24 13:00 EST\.br\Electronically Co-Signed By: Ani Kirk\.br\Date and Time Co-Signed: 08/13/24 12:19 EST\.br\Electronically Co-Signed By: Ani Kirk\.br\Date and Time Co-Signed: 08/13/24 12:20 EST Ambulatory Visit Summaryon 1 10-07-2023 Ambulatory Visit Summary Ambulatory Visit Summary RAIN SWEENEY :1960 Visit Date:08/06/2024 Ambulatory Visit Instructions Your Diagnosis Urinary retention Bladder neoplasm of uncertain malignant potential Stress incontinence Urethral caruncle Atrophic vaginitis Cystocele with rectocele Catheter cystitis Your Care Team Attending Physician - GABBY RAMIREZ, HAMILTON Primary Care Physician - SEB BARRY MD This Is Your Medications List Contact prescribing physician if questions or concerns lithium (lithium 300 mg oral tablet) omeprazole (omeprazole 20 mg Cap-DR) oxcarbazepine (oxcarbazepine 300 mg Tab) tretinoin topical (tretinoin Top 0.1% Crm) venlafaxine Procedures Performed Cystoscopy (07/22/2024), Cystoscopy (06/24/2024), OBSERVATION:PRID:[id number]:N OM:CYTO STAIN (04/21/2024), History of augmentation of breast, [...] HAMILTON MALONE MD Where: [facility] [address], [address] [place] [address]- You Need to Schedule the Following Appointments Follow Up with HAMILTON MALONE MD, JAYY When: Where: Medications What How Much When [...] exa (more content not included)... Normal [facility] Urology Office/Clinic Noteon 08-06-2024 Urology Office/Clinic Note Urology Office/Clinic Note Chief Complaint 2 week follow up lyn [facility] Staff 64 year old female patient here for a 6 day follow up from [facility] ER follow up from 07/31/24.Bladder scan: [...] office on 08/02/24, pt was seen at [facility] ER on 07/30/24 due to not being able to urinate, had Lyn placed. Pt called our office on 07/30/24 to notify us of only dribbling small amounts, had a cysto/UD done earlier that day as well as a Lyn removed from being placed at her [facility] visit on 07/25/24 due to not [...] 4. Urethra (more content not included)... Normal [facility] Comment on above: Result Comment: Elec tronically Signed By: HAMILTON MALONE MD\.br\Date and Time Signed: 08/06/24 10:45 EST\.br\Electronically Co-Signed By: Gamaliel Moody\.br\Date and Time Co-Signed: 08/06/24 10:09 EST\.br\Electronically Co-Signed By: Gamaliel Moody\.br\Date and Time Co-Signed: 08/06/24 10:11 EST Ambulatory Visit Summaryon 1 09-30-2023 Ambulatory Visit Summary Ambulatory Visit Summary RAIN SWEENEY :1960 Visit Date:07/30/2024 Ambulatory [...] HAMILTON MALONE MD Where: [facility] [address], [address] [place] [address]- Medications What How Much When Instructions Unchanged [...] is this (more content not included)... Normal [facility] Urology Office/Clinic Noteon 07-30-2024 Urology Office/Clinic Note Urology Office/Clinic Note Chief Complaint [facility] urinary retention HPI Staff 64 year old female patient here for a [facility] ER follow up (transferred from [facility]) for urinary retention. Consult done 07/25/24. [...] urine The Urethra was dilated to: 26 [place] with sounds. Removal: Cystoscope is removed. The [...] Urinary retention (R33.9: Retention of urine, unspecified) [facility] ER follow up (transferred from [facility]) for urinary re (more content not included)... Normal [facility] Comment on above: Result Comment: Elec tronically Signed By: HAMILTON MALONE MD\.br\Date and Time Signed: 07/30/24 10:54 EST\.br\Electronically Co-Signed By: Gamaliel Moody\.br\Date and Time Co-Signed: 07/30/24 10:50 EST General Message Officeon General Message Office General Message O ffice --- --- --- --- --- --- --- --- --- From: MohawkJackieBayamonChiquita cotaInvince To: RAIN SWEENEY Sent: 07/28/24 02:31:01 AM EST Subject: Discharge Summary Ready to View A summary regarding your recent visit is available in the Documents section of your health record. Normal [facility] Inpatient Patient Summaryon 07-27-2024 Inpatient Patient Summary [...] these medications oxycodone (Roxicodone 5 mg Tab) sulfamethoxazole-trimetho prim (Bactrim D.S. 800 mg-160 mg Tab) Procedure [...] days Comments: Call for followup appointment Where: [facility] [place] [address] [phone] Business (1) Follow Up with SEB BARRY When: Within 5 to 7 days Comments: Call for followup appointment Where: [address] [place] [address]- Business (1) Medications What How Much When Instructions Next Dose Changed docusate (Colace 100 mg Cap) 1 Capsules By Mouth 2 times a day 12 am, pm Unchanged lithium (lithium 300 mg [...] as needed for for pain Stop Taking sulfamethoxazole-trimetho prim (Bactrim D.S. 800 mg-160 mg Tab) 1 [...] and you (more content not included)... Normal [facility] BMPon 07-26-2024 Anion gap [Moles/Vol] 8 mmol/L Normal -16 [facility] Comment on above: Performed By: #### 2 [id number] #### [facility] [address] [place] [address] Calcium [Mass/Vol] 8.4 mg/dL Low 8.9-11.1 [facility] Comment on above: Performed By: #### 2 [id number] #### [facility] [address] [place] [address] Chloride [Moles/Vol] 113 mmol/L High 101-111 [facility] Comment on above: Performed By: #### 2 [id number] #### [facility] [address] [place] [address] CO2 [Moles/Vol] 25 mmol/L Normal 21-31 [facility] Comment on above: Performed By: #### 2 [id number] #### [facility] [address] [place] [address] Creatinine [Mass/Vol] 0.9 mg/dL Normal 0.5-1.3 [facility] Comment on above: Performed By: #### 2 [id number] #### [facility] [address] [place] [address] Glucose [Mass/Vol] 96 mg/dL Normal 55-199 [facility] Comment on above: Performed By: #### 2 [id number] #### [facility] [address] [place] [address] Potassium [Moles/Vol] 4.5 mmol/L Normal 3.5-5.3 [facility] Comment on above: Performed By: #### 2 247212 #### [facility] [address] [place] [address] Sodium [Moles/Vol] 141 mmol/L Normal 135-145 [facility] Comment on above: Performed By: #### 2 [id number] #### [facility] [address] [place] [address] Urea nitrogen [Mass/Vol] 12 mg/dL Normal 5-21 [facility] Comment on above: Performed By: #### 2 [id number] #### [facility] [address] [place] [address] Urea nitrogen/Creatinine [Mass ratio] 13 No Units Normal 10-20 [facility] Comment on above: Performed By: #### 2 [id number] #### [facility] [address] [place] [address] CBC w/ Auto Diffon 4 Basophils/100 WBC (Bld) 0.8 % Normal 0.0-2.0 [facility] Comment on above: Performed By: #### 2 [id number] #### [facility] [address] [place] [address] Basophils/Leukocytes Auto (Bld) [Pure # fraction] 0.1 E9/L Normal 0.0-0.2 [facility] Comment on above: Performed By: #### 2 [id number] #### [facility] [address] [place] [address] Eosinophils (Bld) [#/Vol] 0.3 E9/L Normal 0.0-0.5 [facility] Comment on above: Performed By: #### 2 [id number] #### [facility] [address] [place] [address] Eosinophils/100 WBC (Bld) 4.4 % Normal 0.0-8.0 [facility] Comment on above: Performed By: #### 2 [id number] #### [facility] [address] [place] [address] Erythrocyte distribution width (RBC) [Ratio] 15.7 % High 10.9-14.2 [facility] Comment on above: Performed By: #### 2 [id number] #### [facility] [address] [place] [address] Hematocrit (Bld) [Volume fraction] 32.4 % Low 34.0-46.0 [facility] Comment on above: Performed By: #### 2 779644 #### [facility] [address] [place] [address] Hemoglobin (Bld) [Mass/Vol] 10.8 g/dL Low 12.0-16.0 [facility] Comment on above: Performed By: #### 2 [id number] #### [facility] [address] [place] [address] Lymphocytes (Bld) [#/Vol] 2.6 E9/L Normal 1.0-4.0 [facility] Comment on above: Performed By: #### 2 940654 #### [facility] [address] [place] [address] Lymphocytes/100 WBC (Bld) 32.8 % Normal 14.0-50.0 [facility] Comment on above: Performed By: #### 2 865032 #### [facility] [address] [place] [address] MCH (RBC) [Entitic mass] 30.2 pg Normal 27.0-34.0 [facility] Comment on above: Performed By: #### 2 153317 #### [facility] [address] [place] [address] MCHC (RBC) [Mass/Vol] 33.4 g/dL Normal 31.4-36.0 [facility] Comment on above: Performed By: #### 2 189184 #### [facility] [address] [place] [address] MCV (RBC) [Entitic vol] 90.4 fL Normal 80.0-100.0 F [facility] Comment on above: Performed By: #### 2 525455 #### [facility] [address] [place] [address] Monocytes (Bld) [#/Vol] 0.8 E9/L Normal 0.2-1.0 [facility] Comment on above: Performed By: #### 2 [id number] #### [facility] [address] [place] [address] Neutrophils (Bld) [#/Vol] 4.1 E9/L Normal 2.0-7.5 [facility] Comment on above: Performed By: #### 2 306243 #### [facility] [address] [place] [address] Neutrophils/100 WBC (Bld) 52.1 % Normal 36.0-75.0 [facility] Comment on above: Performed By: #### 2 706862 #### [facility] [address] [place] [address] Platelet 224.0 E9/L Normal 150.0-500. 0 [facility] Comment on above: Performed By: #### 2 393896 #### [facility] [address] [place] [address] Platelet mean volume (Bld) [Entitic vol] 8.1 fL Normal 6.4-10.8 [facility] Comment on above: Performed By: #### 2 276501 #### [facility] [address] [place] [address] RBC (Bld) [#/Vol] 3.6 E12/L Low 4.3-5.9 [facility] Comment on above: Performed By: #### 2 [id number] #### [facility] [address] [place] [address] WBC corrected for nucl RBC Auto (Bld) [#/Vol] 7.9 E9/L Normal 4.0-11.0 [facility] Comment on above: Performed By: #### 2 [id number] #### [facility] [address] [place] [address] CHEMISTRYOrdered By: SYSTEM SYSTEM on 07-26-2024 Anion gap [Moles/Vol] 8 mmol/L Normal 6 - 16 mEq/L [facility] Calcium [Mass/Vol] 8.4 mg/dL Low 8.9 - 11. 1 mg/dL [facility] Chloride [Moles/Vol] 113 mmol/L High 101 - 1 11 mmol/L [facility] CO2 [Moles/Vol] 25 mmol/L Normal 21 - 31 mmol/L [facility] Creatinine [Mass/Vol] 0.9 mg/dL Normal 0.5 - 1.3 mg/dL [facility] eGFR 72 mL/min/1.73 m2 Normal >=59mL/min /1.73 m2 [facility] Glucose [Mass/Vol] 96 mg/dL Normal 55 - 199 mg/dL [facility] Potassium [Moles/Vol] 4.5 mmol/L Normal 3.5 - 5.3 mmol/L [facility] Sodium [Moles/Vol] 141 mmol/L Normal 135 - 145 mmol/L [facility] Urea nitrogen [Mass/Vol] 12 mg/dL Normal 5 - 21 mg/dL [facility] Urea nitrogen/Creatinine [Mass ratio] 13 [...] MCH (RBC) [Entitic mass] 30.2 pg Normal 27.0 - 34.0 pg Rem[facility] Heme MCHC (RBC) [...] 07-26-2024 Inpatient Clinical Summary Inpatient Clinical Summary [place] [address] Clinical Summary Person Information: Name: RAIN SWEENEY Age: 64 Years : 1960 Sex: Female PCP: SEB BARRY MD Marital Status: Single Race: White Ethnicity: Non- or Language: Irish Visit Id: Visit Reason: SEPSIS, CELLULITIS Speciality: Acuity: Enc Type: Inpatient Med Service: Medical Arrival: 07/25/2024 00:41:33 Discharge: Dispo Type: Address: [address] [place] [id number] Provider Notes: Diagnosis: 1:Abdominal pain; 2:Acute kidney [...] Follow up: With: Address: When: HAMILTON MALONE [address] [place], [place] [phone] Business (1) Within 5 to 7 days Comments: Call for followup appointment With: Address: When: SEB BARRY [address] [place] [address] Business (1) Within 5 to 7 days Comments: Call for followup appointment Patient Education Information: Normal [facility] Inpatient Patient Summaryon 07-26-2024 Inpatient Patient Summary Inpatient Patient Summary [address] [address] Patient Discharge Instructions PERSON INFORMATION Name: RAIN [...] Follow up: With: Address: When: HAMILTON MALONE [address] [place] [phone] Business (1) Within 5 to 7 days Comments: Call for followup appointment With: Address: When: SEB BARRY [address] [place] [address] [facility] (1) Within 5 to 7 days Comments: Call for followup appointment In the event that this physician does not participate in your insurance network, please consult with your insurance company to find a nearby participating provider. Comment: PATEL Colin LINDA JOY, have received the attached patient education materials/instructions and have verbalized understanding: Patient Signature ____ Date Clinican/Nurse Signature Date HERE ARE THE [...] hours as needed for pain. Refills: 0. sulfamethoxazole-trimetho prim (Bactrim D.S. 800 mg-160 mg Tab) 1 [...] to serve you. Thank you for choosing [facility] Interdisciplinary Note - Javi e Manageron 07-26-2024 Interdisciplinary Note - Passenger Relations Representative Interdisciplinary Note - Passenger Relations Representative SW spoke with patient in room. No family in room. Patient is alert and oriented and participates in discharge planning. Patient is , lives alone. There was a consult for domestic concerns. She states she feels safe and has no domestic concerns. She reports that her neighbor Damaso is very helpful. She has a good support system and judaism family. Her son and daughter live in [place]. Dr. Waldrop is following, see notes, saw patient earlier today. Patient was admitted on 07/25/24. Has a consult with Urology. Patient verified PCP, insurance and DME. Patient denied any needs at d/c and is anxious to return home. This patient will have neighbor transport home. Patient white board updated, and contact information provided. Normal [facility] Comment on above: Result Comment: Elec tronically Signed By: Jaison DE LA FUENTEW, Paulette\.br\Date and Time Signed: 07/26/24 09:41 EST eGFRon 07-26-2024 eGFR 72 mL/min/1.73 m2 Normal >=59 [facility] Comment on above: Performed By: #### 1 [id number] ####[facility] [address] [place] [address] CBC w/ Auto Diffon 4 Basophils/100 WBC (Bld) 0.5 % Normal 0.0-2.0 F [facility] Comment on above: Performed By: #### 2 [id number] #### [facility] [address] [place] [address] Basophils/Leukocytes Auto (Bld) [Pure # fraction] 0.0 E9/L Normal 0.0-0.2 [facility] Comment on above: Performed By: #### 2 [id number] #### [facility] [address] [place] [address] Eosinophils (Bld) [#/Vol] 0.1 E9/L Normal 0.0-0.5 [facility] Comment on above: Performed By: #### 2 [id number] #### [facility] [address] [place] [address] Eosinophils/100 WBC (Bld) 0.5 % Normal 0.0-8.0 [facility] Comment on above: Performed By: #### 2 [id number] #### [facility] [address] [place] [address] Erythrocyte distribution width (RBC) [Ratio] 15.3 % High 10.9-14.2 [facility] Comment on above: Performed By: #### 2 [id number] #### [facility] [address] [place] [address] Hematocrit (Bld) [Volume fraction] 35.8 % Normal 34.0-46.0 [facility] Comment on above: Performed By: #### 2 [id number] #### [facility] [address] [place] [address] Hemoglobin (Bld) [Mass/Vol] 11.9 g/dL Low 12.0-16.0 [facility] Comment on above: Performed By: #### 2 [id number] #### [facility] [address] [place] [address] Lymphocytes (Bld) [#/Vol] 1.1 E9/L Normal 1.0-4.0 [facility] Comment on above: Performed By: #### 2 [id number] #### [facility] [address] [place] [address] Lymphocytes/100 WBC (Bld) 11.3 % Low 14.0-50.0 [facility] Comment on above: Performed By: #### 2 [id number] #### [facility] [address] [place] [address] MCH (RBC) [Entitic mass] 29.9 pg Normal 27.0-34.0 [facility] Comment on above: Performed By: #### 2 [id number] #### [facility] [address] [place] [address] MCHC (RBC) [Mass/Vol] 33.4 g/dL Normal 31.4-36.0 [facility] Comment on above: Performed By: #### 2 [id number] #### [facility] [address] [place] [address] MCV (RBC) [Entitic vol] 89.4 fL Normal 80.0-100.0 F [facility] Comment on above: Performed By: #### 2 [id number] #### [facility] [address] [place] [address] Monocytes (Bld) [#/Vol] 0.9 E9/L Normal 0.2-1.0 [facility] Comment on above: Performed By: #### 2 [id number] #### [facility] [address] [place] [address] Neutrophils (Bld) [#/Vol] 7.9 E9/L High 2.0-7.5 [facility] Comment on above: Performed By: #### 2 [id number] #### [facility] [address] [place] [address] Neutrophils/100 WBC (Bld) 78.3 % High 36.0-75.0 [facility] Comment on above: Performed By: #### 2 [id number] #### [facility] [address] [place] [address] Platelet 252.0 E9/L Normal 150.0-500. 0 [facility] Comment on above: Performed By: #### 2 [id number] #### [facility] [address] [place] [address] Platelet mean volume (Bld) [Entitic vol] 8.1 fL Normal 6.4-10.8 [facility] Comment on above: Performed By: #### 2 [id number] #### [facility] [address] [place] [address] RBC (Bld) [#/Vol] 4.0 E12/L Low 4.3-5.9 [facility] Comment on above: Performed By: #### 2 [id number] #### [facility] [address] [place] [address] WBC corrected for nucl RBC Auto (Bld) [#/Vol] 10.1 E9/L Normal 4.0-11.0 [facility] Comment on above: Performed By: #### 2 [id number] #### [facility] [address] [place] [address] CHEMISTRYOrdered By: Elisabeth Hoffman on 07-25-2024 Albumin [Mass/Vol] 3.5 g/dL Normal 3.3 - 5.0 gm/dL [facility] Albumin/Globulin [Mass ratio] 1.3 {ratio} Normal 1.1 - 2.2 [facility] ALP [Catalytic activity/Vol] 78 [iU]/d Normal 21 - 98 Int._Unit/ L [facility] ALT No additional P-5'-P [Catalytic activity/Vol] 9 [iU]/d Normal 6 - 46 Int._Unit/ L [facility] Anion gap [Moles/Vol] 8 mmol/L Normal 6 - 16 mEq/L [facility] AST [Catalytic activity/Vol] 14 [iU]/d Normal 5 - 43 Int._Unit/ L [facility] Bilirubin [Mass/Vol] 0.6 mg/dL Normal [...] Chem eGFR 31 mL/min/1.73 m2 Low >=59mL/min /1.73 m2 [facility] Globulin (S) [Mass/Vol] 2.8 [...] [Mass/Vol] 23 mg/dL High 5 - 21 mg/dL [facility] Urea nitrogen/Creatinine [Mass ratio] 13 mg/mg Normal 10 - 20 [facility] CMPon 07-25-2024 Albumin [Mass/Vol] 3.5 g/dL Normal 3.3-5.0 [facility] Comment on above: Performed By: #### 2 [id number] #### [facility] [address] [place] [address] Albumin/Globulin (S) [Mass conc ratio] 1.3 Normal 1.1-2.2 [facility] Comment on above: Performed By: #### 2 [id number] #### [facility] [address] [place] [address] ALP [Catalytic activity/Vol] 78 Int._Unit/L Normal 21-98 [facility] Comment on above: Performed By: #### 2 [id number] #### [facility] [address] [place] [address] ALT No additional P-5'-P [Catalytic activity/Vol] 9 Int._Unit/L Normal 6-46 [facility] Comment on above: Performed By: #### 2 [id number] #### [facility] [address] [place] [address] Anion gap [Moles/Vol] 8 mmol/L Normal 6-16 [facility] Comment on above: Performed By: #### 2 559647 #### [facility] [address] [place] [address] AST [Catalytic activity/Vol] 14 Int._Unit/L Normal 5-43 [facility] Comment on above: Performed By: #### 2 [id number] #### [facility] [address] [place] [address] Bilirubin [Mass/Vol] 0.6 mg/dL Normal 0.0-1.1 [facility] Comment on above: Performed By: #### 2 [id number] #### [facility] [address] [place] [address] Calcium [Mass/Vol] 8.4 mg/dL Low 8.9-11.1 [facility] Comment on above: Performed By: #### 2 [id number] #### [facility] [address] [place] [address] Chloride [Moles/Vol] 110 mmol/L Normal 101-111 [facility] Comment on above: Performed By: #### 2 555727 #### [facility] [address] [place] [address] CO2 [Moles/Vol] 24 mmol/L Normal 21-31 [facility] Comment on above: Performed By: #### 2 [id number] #### [facility] [address] [place] [address] Creatinine [Mass/Vol] 1.8 mg/dL High 0.5-1.3 [facility] Comment on above: Performed By: #### 2 092942 #### [facility] [address] [place] [address] Globulin (S) [Mass/Vol] 2.8 g/dL Normal 1.4-4.0 [facility] Comment on above: Performed By: #### 2 988239 #### [facility] [address] [place] [address] Glucose [Mass/Vol] 120 mg/dL Normal 55-199 [facility] Comment on above: Performed By: #### 2 873139 #### [facility] [address] [place] [address] Potassium [Moles/Vol] 5.0 mmol/L Normal 3.5-5.3 [facility] Comment on above: Performed By: #### 2 [id number] #### [facility] [address] [place] [address] Protein [Mass/Vol] 6.3 g/dL Normal 6.0-7.8 [facility] Comment on above: Performed By: #### 2 [id number] #### [facility] [address] [place] [address] Sodium [Moles/Vol] 137 mmol/L Normal 135-145 [facility] Comment on above: Performed By: #### 2 385442 #### [facility] [address] [place] [address] Urea nitrogen [Mass/Vol] 23 mg/dL High 5-21 [facility] Comment on above: Performed By: #### 2 487420 #### [facility] [address] [place] [address] Urea nitrogen/Creatinine [Mass ratio] 13 No Units Normal 10-20 [facility] Comment on above: Performed By: #### 2 977231 #### [facility] [address] [place] [address] HEMATOLOGYOrdered By: SYSTEM SYSTEM on 07-25-2024 Basophils/100 [...] MCH (RBC) [Entitic mass] 29.9 pg Normal 27.0 - 34.0 pg [facility] Heme MCHC (RBC) [...] challengeon 07-25-2024 Lactate [Moles/Vol] 1.1 mmol/L 0.4-2.0 [facility] Lactic Acidon 07-25-2024 Lactic Acid Lvl 0.8 mmol/L Normal 0.5-2.2 [facility] Comment on above: Performed By: #### 2 [id number] #### [facility] [address] [place] [address] [place] Riccardo 07-25-2024 [place] Lvl .3 mmol/L Low 1.0-1.2 [facility] Comment on above: Result Comment: 12 h our post dose concentration: 1.0-1.2 mmol/L Minimum effective concentration: 0.6 mmol/L Values >1.5 mmol/L 12 hours after dose indicates a significant risk of intoxication. Performed By: #### 4 [id number] #### [facility] [address] [place] [address] Reference Laboratory Testing Ordered By: SYSTEM SYSTEM on 07-25-2024 [place] Lvl 0.3 mmol/L Low 1.0 - 1.2 mmol/L [facility] Comment on above: Interpretive Data: 1 2 hour post dose concentration: 1.0-1.2 mmol/L Minimum effective concentration: 0.6 mmol/L Values >1.5 mmol/L 12 hours after dose indicates a significant risk of intoxication. UA with Cult [employer] 07-25-20 Bacteria Auto Ql (U) Trace Normal Trace Fish [facility] Comment on above: Performed By: #### 4 [id number] #### [facility] [address] [place] [address] Bilirubin Ql (U) Negative Normal Negative [facility] Comment on above: Performed By: #### 4 [id number] #### [facility] [address] [place] [address] Clarity (U) Clear Normal Clear [facility] Comment on above: Performed By: #### 4 [id number] #### [facility] [address] [place] [address] Color (U) Colorless Abnormal Yellow [facility] Comment on above: Result Comment: Micr oscopic readings are only performed on those samples that meet specific criteria set forth by [facility]. Performed By: #### 4 [id number] #### [facility] [address] [place] [address] Epithelial cells.squamous Auto (Urine sed) [#/Area] 0-2 Invalid Interpretation Code [facility] Comment on above: Performed By: #### 4 [id number] #### [facility] [address] [place] [address] Glucose Ql (U) Negative Normal Negative [facility] Comment on above: Performed By: #### 4 [id number] #### [facility] [address] [place] [address] Hemoglobin Auto test strip (U) [Mass/Vol] 2+ mg/dL Abnormal Negative [facility] Comment on above: Performed By: #### 4 [id number] #### [facility] [address] [place] [address] Ketones Auto test strip Ql (U) Trace Abnormal Negative [facility] Comment on above: Performed By: #### 4 [id number] #### [facility] [address] [place] [address] Leukocyte esterase Auto test strip Ql (U) Negative Normal Negative [facility] Comment on above: Performed By: #### 4 [id number] #### [facility] [address] [place] [address] Mucus Auto Ql (U) Negative Normal Negative [facility] Comment on above: Performed By: #### 4 [id number] #### [facility] [address] [place] [address] Nitrite Auto test strip Ql (U) Negative Normal Negative [facility] Comment on above: Performed By: #### 4 [id number] #### [facility] [address] [place] [address] pH (U) 6.0 [pH] Invalid Interpretation Code 5.0-9.0 [facility] Comment on above: Performed By: #### 4 [id number] #### [facility] [address] [place] [address] Protein Ql (U) Negative Normal Negative [facility] Comment on above: Performed By: #### 4 [id number] #### [facility] [address] [place] [address] RBC Ql (U) 4-20 Abnormal 0-3 [facility] Comment on above: Performed By: #### 4 [id number] #### [facility] [address] [place] [address] Specific gravity (U) [Rel density] 1.006 Invalid Interpretation Code 1.005-1.03 0 [facility] Comment on above: Performed By: #### 4 [id number] #### [facility] [address] [place] [address] Urobilinogen (U) [Mass/Vol] Negative Normal Negative [facility] Comment on above: Performed By: #### 4 [id number] #### [facility] [address] [place] [address] WBC Auto (Urine sed) [#/Area] 0-5 Normal 0-5 [facility] Comment on above: Performed By: #### 4 [id number] #### [facility] [address] [place] [address] Type of Urine collection method Clean Catch Normal [facility] Comment on above: Performed By: #### 4 [id number] #### [facility] [address] [place] [address] URINALYSISOrdered By: SYSTEM SYSTEM on 07-25-2024 Bacteria Auto Ql (U) Trace /HPF Normal Trace/HPF [facility] UA Auto SS Bilirubin Ql (U) Negative Normal Negativemg /dL [facility] UA Auto SS Clarity (U) Clear (07/25/24 10:15 AM) Normal Clear [facility] UA Auto SS Color (U) Colorless 1 *ABN* (07/25/24 10:15 AM) Invalid Interpretation Code Yellow [facility] UA Auto SS Comment on above: Interpretive Data: M icroscopic readings are only performed on those samples that meet specific criteria set forth by [facility]. Epithelial cells.squamous Auto (Urine sed) [#/Area] 0-2 graded/HPF Invalid Interpretation Code [facility] UA Auto SS Glucose Ql (U) Negative Normal Negativemg /dL [facility] UA Auto SS Hemoglobin Auto test strip (U) [Mass/Vol] 2+ mg/dL Invalid Interpretation Code Negativemg /dL [facility] UA Auto SS Ketones Auto test strip Ql (U) Trace mg/dL Invalid Interpretation Code Negativemg /dL [facility] UA Auto SS Leukocyte esterase Auto test strip Ql (U) Negative Normal NegativeLe u/uL [facility] UA Auto SS Mucus Auto Ql (U) Negative Normal Negativegr aded/LPF [facility] UA Auto SS Nitrite Auto test strip Ql (U) Negative Normal Negativemg /dL [facility] UA Auto SS pH (U) 6.0 *NA* (07/25/24 10:15 AM) Invalid Interpretation Code 5.0 - 9.0 [facility] UA Auto SS Protein Ql (U) Negative Normal Negativemg /dL [facility] UA Auto SS RBC Ql (U) 4-20 graded/HPF Invalid Interpretation Code 0-3graded/ HPF [facility] UA Auto SS Specific gravity (U) [Rel density] 1.006 *NA* (07/25/24 10:15 AM) Invalid Interpretation Code 1.005 - 1.030 [facility] UA Auto SS Urobilinogen (U) [Mass/Vol] Negative Normal Negativemg /dL [facility] UA Auto SS WBC Auto (Urine sed) [#/Area] 0-5 graded/HPF Normal 0-5graded/ HPF [facility] UA Auto SS URINALYSISOrdered By: Emmanuel MARIA on 07-25-2024 UA Spec Desc Clean Catch (07/25/24 10:15 AM) Normal [facility] UA Auto SS Work Phone: eGFRon 07-25-2024 eGFR 31 mL/min/1.73 m2 Low >=59 [facility] Comment on above: Performed By: #### 1 [id number] #### [facility] [address] [place] [address] Basophils Auto (Bld) [#/Vol] on 07-24-2024 Basophils (Bld) [#/Vol] Automated basophil count 0.0-0.1 [facility] Basophils/100 WBC Auto (Bld) on 07-24-2024 Basophils/100 WBC (Bld) Automated basophil % 0. 2-2.0 [facility] Eosinophils/100 WBC Auto (Bl d)on 07-24-2024 Eosinophils/100 WBC (Bld) Automated eosinophil % Low 0.9-7.0 [facility] Erythrocyte distribution wid th Auto (RBC) [Ratio]on 07-24-2024 Erythrocyte distribution width (RBC) [Ratio] Erythrocyte distribution width [Ratio] by Automated count 11.0-15.0 [facility] Estimated glomerular filtrat ion rate (GFR) non- Americanon 07-24-2024 GFR/1.73 sq M.predicted among non-blacks MDRD (S/P/Bld) [Vol rate/Area] Estimated glomerular filtration rate (GFR) non- Low >=60 mL/min/1.7 3m 2 [facility] Hematocrit Auto (Bld) [Volum e fraction]on 07-24-2024 Hematocrit (Bld) [Volume fraction] Hematocrit [Volume Fraction] of Blood by Automated count 36.0-48.0 [facility] Hemoglobin [Mass/volume] in Bloodon 07-24-2024 Hemoglobin (Bld) [Mass/Vol] Hemoglobin [Mass/volume] in Blood 12.0-16.0 [facility] - Chemistry and C hemistry - challengeon 07-24-2024 Bilirubin Ql (U) Negative NEGATIVE [facility] Glucose (U) [Mass/Vol] Negative NEGATIVE [facility] Ketones Ql (U) Negative NEGATIVE [facility] pH (U) 6.0 [pH] 5.0-9.0 [facility] Specific gravity (U) [Rel density] 1.010 1.005-1.02 5 [facility] Urobilinogen Qn (U) 0.2 {Rachell'U}/dL 0.2-1.0 [facility] Calcium [Mass/Vol] 8.8 mg/dL 8.5-10.1 [facility] Chloride [Moles/Vol] 96 mmol/L Low 98-107 [facility] CO2 [Moles/Vol] 21.6 mmol/L 21.0-32.0 [facility] Creatinine [Mass/Vol] 4.00 mg/dL High 0.55-1.02 [facility] GFR/1.73 sq M.predicted MDRD (S/P/Bld) [Vol rate/Area] 14 mL/min/{1.73_m2} Low >=60 mL/min/1.7 3m 2 [facility] Glucose [Mass/Vol] 158 mg/dL High 74-106 [facility] Lactate [Moles/Vol] 2.2 mmol/L Critically high 0.4-2.0 [facility] Comment on above: RESULTS CALLED TO ER Teresita Banda RN @BY Jerel Mckeon MLT at 1909 Potassium [Moles/Vol] 4.3 mmol/L 3.5-5.1 [facility] Sodium [Moles/Vol] 131 mmol/L Low 136-145 [facility] Urea nitrogen [Mass/Vol] 36.0 mg/dL High 7.0-18.0 [facility] Urea nitrogen/Creatinine [Mass ratio] 9.0 mg/mg [facility] - Hematology and Cell countson 07-24-2024 Immature granulocytes/100 WBC (Bld) 1.8 % High 0.0-0.5 [facility] - Specimen inform ationon 07-24-2024 Appearance (U) CLEAR CLEAR [facility] Color (U) LT. YELLOW YELLOW [facility] - Urinalysison Leukocyte esterase Test strip Ql (U) TRACE Abnormal NEGATIVE [facility] Mucus Ql (Urine sed) NONE SEEN NONE SEEN [facility] Nitrite Ql (U) Negative NEGATIVE [facility] Protein Ql (U) Negative NEG/TRACE [facility] Leukocytes [#/volume] correc sheeba for nucleated erythrocytes in Blood by Automated counon 07-24-2024 WBC corrected for nucl RBC Auto (Bld) [#/Vol] Leukocytes [#/volume] corrected for nucleated erythrocytes in Blood by Automated coun High 4.0-11.0 [facility] Lymphocytes Auto (Bld) [#/Vo l]on 07-24-2024 Lymphocytes (Bld) [#/Vol] Lymphocytes [#/volume] in Blood by Automated count 1.2-3.8 [facility] Lymphocytes/100 WBC Auto (Bl d)on 07-24-2024 Lymphocytes/100 WBC (Bld) Lymphocytes/100 leukocytes in Blood by Automated count Low 20.5-60.0 [facility] MCH Auto (RBC) [Entitic mass ]on 07-24-2024 MCH (RBC) [Entitic mass] MCH [Entitic mass] by Automated count 26.7-34.0 [facility] MCHC Auto (RBC) [Mass/Vol]on 07-24-2024 MCHC (RBC) [Mass/Vol] MCHC [Mass/volume] by Automated count 29.9-35.2 [facility] MCV Auto (RBC) [Entitic vol] on 07-24-2024 MCV (RBC) [Entitic vol] MCV [Entitic vol ume] by Automated count 81.0-99.0 [facility] Monocytes Auto (Bld) [#/Vol] on 07-24-2024 Monocytes (Bld) [#/Vol] Automated blood monocyte count High 0.3-0.8 [facility] Monocytes/100 WBC Auto (Bld) on 07-24-2024 Monocytes/100 WBC (Bld) Automated monocyte % 1. 7-12.0 [facility] Neutrophils Auto (Bld) [#/Vo l]on 07-24-2024 Neutrophils (Bld) [#/Vol] Neutrophils [#/volume] in Blood by Automated count High 1.4-6.5 [facility] Neutrophils/100 WBC Auto (Bl d)on 07-24-2024 Neutrophils/100 WBC (Bld) Automated neutrophil % High 43.0-75.0 [facility] No Panel Informationon 07-24 Urine Bacteria TRACE #/HPF Abnormal NONE SEEN [facility] Urine Culture Reflexed NO [facility] Urine Microscopic Review YES [facility] Urine Occult Blood LARGE Abnormal NEGATIVE [facility] Urine Other Casts NONE SEEN #/LPF NONE SEEN [facility] Urine Other Crystals None Seen #/HPF None Seen [facility] Urine RBC 20-50 #/HPF Abnormal 0-2 [facility] Urine Squamous Epithelial Cells RARE #/LPF NONE/RARE [facility] Urine WBC 0-2 #/HPF Abnormal NONE SEEN [facility] Eosinophils # (Auto) 0.1 10 3/uL 0.0-0.7 [facility] Immature Granulocyte # (Auto) 0.26 10 3/uL High 0.00-0.03 [facility] Platelet mean volume Auto (B ld) [Entitic vol]on 07-24-2024 Platelet mean volume (Bld) [Entitic vol] Platelet mean volume [Entitic volume] in Blood by Automated count 9.5-13.5 [facility] Platelets Auto (Bld) [#/Vol] on 07-24-2024 Platelets (Bld) [#/Vol] Platelets [#/vol ume] in Blood by Automated count 150-450 [facility] RBC Auto (Bld) [#/Vol]on RBC (Bld) [#/Vol] Erythrocytes [#/volu me] in Blood by Automated count 4.20-5.40 [facility] Serum or plasma anion gap de terminationon 07-24-2024 Anion gap [Moles/Vol] Serum or plasma an ion gap determination [facility] Main OR Intraoperative Recor don 07-23-2024 Main OR Intraoperative Record Main OR Intraoperative Record IntraOp Document Type FT Summary Primary Physician: HAMILTON MALONE MD Finalized Date/Time: 07/23/24 09:40:12 Pt. Name: RAIN SWEENEY/Sex: 1960 Female Med Rec #: [id number] Physician: HAMILTON MALONE MD Financial #: [id number] Pt. Type: A Room/Bed: [place] [address] Admit/Disch: 07/22/24 05:26:39 - 07/22/24 12:30:16 Institution: [...] MD, Yuan TERRAZAS, Scooby VILLASENOR Role Performed COLOR SPRAYER Surgeon - Primary MANAGER OF DISASTER RECOVERY/SA Time In 07/22/24 07:38:00 07/22/24 07:38:00 07/22/24 07:38:00 Time Out 07/22/24 09:07:00 07/22/24 09:01:00 07/22/24 09:07:00 Procedure TVT SLING(.) TVT SLING(.) TVT SLING(.) Comments DR. BALLESTEROS ASSISTANT MAINTENANCE MANAGER ASSIST Last Modified By: Terri Glynn Ii, Alfons Ii Terri Gutierrez Ii F 07/22/24 09:12:19 07/22/24 09:12:19 07/22/24 09:12:19 Entry 4 Entry 5 Entry 6 Case Attendee Becky Coleman LPN, Amber M Letrondo, Alfons Ii Gilberto Role Performed Scrub - Primary Staff - Other Asbestos Coverer - Primary Time In 07/22/24 07:38:00 07/22/24 07:38:00 07/22/24 07:38:00 Time Out 07/22/24 08:47:00 07/22/24 09:07:00 07/22/24 09:07:00 Procedure TVT SLING(.) TVT SLING(.) TVT SLING(.) Comments 2ND SCRUB Last Modified By: Terri Glynn Ii, Alfons Ii Terri Gutierrez Ii Gilberto 07/22/24 09:13:05 07/22/24 09:12:19 07/22/24 09:12:19 Entry 7 Case Attendee Lakisha Bolden CST Role Performed Scrub - Relief Time In 07/22/24 08:46:00 Time Out 07/22/24 09:07:00 Procedure TVT SLING(.) Comments BREAK RELIEF Last Modified By: Terri Glynn Ii 07/22/24 09:12:19 General Comments: ACE MCGOVERN STUDENT IS IN ATTENDANCE. /PINEDA OROPEZAplateman Protocols FT Pre-Care Text: Implements protective measures [...] Primary Procedure Yes Primary Surgeon GABBY RAMIREZ, HAMILTNO Start 07/22/24 08:00:00 Stop 07/22/24 09:02:00 Anesthesia [...] of physical (more content not included)... [facility] Discharge Instructionson Discharge Instructions Discharge Instruc tions RAIN SWEENEY :1960 Visit Date:07/22/2024 Inpatient Discharge Instructions Your Care Team Admitting Physician - GABBY RAMIREZ, HAMILTON Referring Physician - HAMILTON MALONE MD Reason [...] Comments: 2 weeks Where: [address] [place] [address]- [phone] Business (1) Medications What How Much When Instructions Next Dose New docusate (Colace 50 mg oral capsule) 1 Capsules By Mouth 2 times a day as needed for for constipation Pickup at [facility][id number] New oxycodone (Roxicodone 5 mg Tab) 1 Tablets By Mouth Every 6 hours as needed for for pain Pickup at [facility]pharm[facility] #[id number] Changed venlafaxine 225 Milligram By Mouth [...] Once a day (at bedtime) Pharmacy Information [facility] #[id number]: [address], [place] [phone] Test Results No qualifying data available. Allergies [...] Other SUPRAPUBIC MID-URETHRAL SLING 07/22/2024 Education Materials [place], [place] Ambrose Dorantes M.D. TVT DISCHARGE INSTRUCTIONS [...] may have given you. Surgeon???s Phone number: [phone] Surgeon???s Written Instructions: 1. During the daytime hours empty (more content not included)... [facility] Comment on above: Result Comment: Elec tronically Signed By: Wendie SUNG, Stephanie Johnson\.br\Date and Time Signed: 07/22/24 09:47 EST Inpatient Patient Summaryon 07-22-2024 Inpatient Patient Summary Inpatient Patient Summary [place] [id number] [facility] Clinical Discharge Instructions PERSON INFORMATION Name: RAIN SWEENEY PHYSICIANS Admitting Physician: HAMILTON MALONE MD Attending Physician: HAMILTON MALONE MD PCP: SEB BARRY MD Discharge Diagnosis: Comment: PATIENT EDUCATION INFORMATION Instructions: Cook - TVT Discharge Instructions(CUSTOM); Post Op Patient Instructions - FT (CUSTOM) Medication Leaflets: Follow up: With: Address: When: HAMILTON MALONE [address] [place] [address] [phone] Business (1) Comments: 2 weeks MEDICATION LIST New Medications [facility] #[id number], [address], [place] [phone], [phone] docusate (Colace 50 mg oral capsule) 1 Capsules By Mouth 2 times a day as needed for constipation. Refills: 0. oxycodone (Roxicodone 5 mg Tab) 1 Tablets By Mouth every 6 hours as needed for pain. Refills: 0. sulfamethoxazole-trimetho prim (Bactrim D.S. 800 mg-160 mg Tab) 1 [...] once a day (at bedtime). Comment: Normal [facility] Main OR PACU I Recordon 07-11 Main OR PACU I Record Main OR PACU I Rec ord PACU Phase I Document Type FT Summary Primary Physician: HAMILTON MALONE MD Finalized Date/Time: 07/22/24 11:31:23 Pt. Name: TESFAYEAMANDORAIN VANEGAS./Sex: 1960 Female Med Rec #: [id number] Physician: HAMILTON MALONE MD Financial #: [id number] Pt. Type: A Room/Bed: [place] [address] Admit/Disch: 07/22/24 05:26:39 - Institution: Case Times [...] By: Teresita Chapman RN 07/22/24 11:31 [facility] Main OR PACU II Recordon Main OR PACU II Record Main OR PACU II R ecord PACU Phase II Document Type FT Summary Primary Physician: HAMILTON MALONE MD Finalized Date/Time: 07/22/24 12:32:48 Pt. Name: RAIN SWEENEY LEYDA Mi/Sex: 1960 Female Med Rec #: [id number] Physician: HAMILTON MALONE MD Financial #: [id number] Pt. Type: A Room[facility]Bed: [facility]/ Admit/Disch: 07/22/24 05:26:39 - Institution: Case [...] Signed By: Val Scales 07/22/24 12:32 [facility] Main OR Preoperative Recordo n 07-22-2024 Main OR Preoperative Record Main OR Preoperative Record PreOp Document Type FT Summary Primary Physician: HAMILTON MALONE MD Finalized Date/Time: 07/22/24 08:03:39 Pt. Name: RAIN SWEENEY/Sex: 1960 Female Med Rec #: [id number] Physician: HAMILTON MALONE MD Financial #: [id number] Pt. Type: A Room/Bed: [place] [address] Admit/Disch: 07/22/24 05:26:39 - Institution: Case Times [...] By: Terri Glynn Ii 07/22/24 08:03 [facility] Operative Reporton 4 Operative Report Operative Report [...] removed in preparation for cystoscopy. The 17 Welsh cystoscope with the 70 degree lens in [...] given a prescription for Cipro and for [place]. The patient will follow up in the office in 2 weeks. [facility] Comment on above: Result Comment: Elec tronically Signed By: GABBY RAMIREZ, HAMILTON\.br\Date and Time Signed: 07/22/24 10:26 EST Outpatient Surgery Discharge Instructionon 07-22-2024 Outpatient Surgery Discharge Instruction Outpatient Surgery Discharge Instruction [place] [address] Patient Discharge Instructions PERSON INFORMATION Name: RAIN [...] JOY, have received the attached patient education materials/instructions and have verbalized understanding: May we do a follow up call? Yes No I was present when discharge instructions were given Patient Signature ___ Date Clinican/Nurse Signature Date Follow up: With: Address: When: HAMILTON MALONE [address] [place] [address] [phone] Business (1) Comments: 2 weeks Pharmacy Information: [...] to serve you. Thank you for choosing [facility] HERE ARE THE MEDICATION CHANGES THAT OCCURRED DURING YOUR HOSPITAL STAY New Medications [id number], [address], [place] [phone], [phone] docusate (Colace 50 mg oral capsule) 1 Capsules By Mouth 2 times a day as needed for constipation. Refills: 0. oxycodone (Roxicodone 5 mg Tab) 1 Tablets By Mouth every 6 hours as needed for pain. Refills: 0. sulfamethoxazole-trimetho prim (Bactrim D.S. 800 mg-160 mg Tab) 1 [...] day (at bedtime). PATIENT EDUCATION INFORMATION Instructions: [facility] [place] Ambrose Dorantes M.D. TVT DISCHARGE INSTRUCTIONS [...] may have given you. Surgeon???s Phone number: [phone] Surgeon???s Written Instructions: 1. During the daytime hours empty your leg bag every 3-4 hours. 2. No lifting over 10 pounds for 6 weeks. 3. There is no restriction regarding use of stairs. 4. You may drive (more content not included)... [facility] Ambulatory Visit Summaryon 1 09-04-2023 Ambulatory Visit Summary Ambulatory Visit Summary RAIN SWEENEY :1960 Visit Date:07/05/2024 Ambulatory [...] Follow-Up Appointments Friday 10:00 AM EST Where: [facility] 2023 8:00 AM EST Where: [facility] You Need to Schedule [...] including vitamins, herbs, eye drops, creams, and plwa-lks-jexgpmb medicines. ??? Any problems you or family [...] foods, such (more content not included)... [facility] Reminderson 07-05-2024 Reminders Reminders From: Dorothy Castro To: SERENA Maharaj; Sent: 07/05/2024 10:04:30 EST Show up: 08/04/2024 10:04:00 EST Subject: Cysto Due Date/Time: 08/04/2024 10:04:00 EST Reminder Message Cysto in 3 mos. Adithya Donis [facility] Urology Office/Clinic Noteon 07-05-2024 Urology Office/Clinic [...] with voice recognition artificial intelligence software, specifically ExactTarget, MabLyte and or Cap That. Substitutions may have occurred due to the [...] bladder b (more content not included)... [facility] Comment on above: Result Comment: Elec tronically Signed By: GABBY RAMIREZ, HAMILTON\.br\Date and Time Signed: 07/05/24 10:33 EST\.br\Electronically Co-Signed By: Dorothy Castro\.br\Date and Time Co-Signed: 07/05/24 10:14 EST Surgical Pathology Reporton 07-01-2024 Surgical Pathology Report [facility] [address] [place] [address]- Surgical Pathology Report Collected Date/Time: 06/24/2024 08:47 [...] characteristics [facility]. They have not been [...] recognition technology and might contain unintended computerized judge's clerk errors. [facility] Comment on above: Performed By: #### 4 [id number] #### [facility] [address] [place] [address] Performed By: #### 4 [id number] ####[facility] [id number] [place] [address] Main OR Intraoperative Recor don 06-25-2024 Main OR Intraoperative Record Main OR Intraoperative Record IntraOp Document Type FT Summary Primary Physician: HAMILTON MALONE MD Finalized Date/Time: 06/25/24 10:12:31 Pt. Name: RAIN SWEENEY/Sex: 1960 Female Med Rec #: [id number] Physician: HAMILTON MALONE MD Financial #: [id number] Pt. Type: A Room/Bed: AS13 Admit/Disch: 06/24/24 06:38:13 - 06/24/24 10:15:00 Institution: [...] Cooney Role Performed Anesthesiologist Surgeon - Primary Asbestos Coverer - Primary Power Lineman Time In 06/24/24 08:25:00 06/24/24 08:32:00 06/24/24 08:25:00 Time Out 06/24/24 08:46:00 06/24/24 08:39:00 06/24/24 08:46:00 Procedure CYSTOSCOPY TURB(.) CYSTOSCOPY TURB(.) CYSTOSCOPY TURB(.) Comments DR. AGUILAR SUPERVISING Last Modified By: Flash RN, Amina Vidales RN, Amina Vidales RN, Amina Reyes 06/24/24 08:57:51 06/24/24 08:57:51 06/24/24 08:57:51 Entry 4 Entry 5 Entry 6 Case Attendee Flash SUNG, Gertrude Stallworth Terry T Role Performed Asbestos Coverer - Primary Scrub - Primary Staff - [...] PreOp Antibiotic Yes Time Out Azam Kohli Given Participants GABBY Whelan MD, Mey VILLASENOR RN, Dolores Cooney, Amina Vidales RN, Dellinger, Sydney A Time Out Complete 06/24/24 08:32:00 [...] and tissue Entry 1 Skin Integrity Intact, Playita [place], Warm, & Skin Abnormality No Dry Outcomes Met? Yes Last Modified By: Flash SUNG, Amina Reyes 06/24/24 08:52:26 Post-Care Text: The patient is free from signs and symptoms of injury caused by extraneous objects Patient Positioning FT Pre-Care Text: Identifies physical alterations that require additional preca (more content not included)... [facility] Discharge Instructionson Discharge Instructions Discharge Instruc tions RAIN SWEENEY :1960 Visit Date:06/24/2024 Inpatient Discharge [...] 2 weeks Where: [address] [place] [phone] Business (1) Medications What How Much When Instructions Next Dose New phenazopyridine (Pyridium 100 mg Tab) 1 Tablets By Mouth 3 times a day Duration: 3 Days Pickup at [facility] #[id number] Unchanged lithium (lithium 300 mg oral tablet) 3 Tablets By Mouth At bedtime Unchanged omeprazole (omeprazole 20 mg Cap-DR) 1 Capsules By Mouth Every day Unchanged oxcarbazepine (oxcarbazepine 300 mg Tab) 1 Tablets By Mouth Every day Unchanged tretinoin topical (tretinoin Top 0.1% Crm) 1 Application Topical Once a day (at bedtime) Unchanged venlafaxine as directed Pharmacy Information [facility] #[id number]: [address] [place], [place] [phone] Education Materials Cystoscopy ??? Voiding after the [...] completing your survey. Thank you for choosing [facility]. Veto Award Nomination The VETO (Diseases Attacking [...] signed up for this yet, please contact [employer] at [phone] to get signed up today. Patient (more content not included)... [facility] Comment on above: Result Comment: Elec tronically Signed By: Chayo SUNG, Reed Brandon\.br\Date and Time Signed: 06/24/24 08:53 EST Inpatient Patient Summaryon 06-24-2024 Inpatient Patient Summary Inpatient Patient Summary [place] [id number] [facility] Clinical Discharge Instructions PERSON INFORMATION Name: RAIN [...] (at bedtime). venlafaxine as directed. Comment: Normal [facility] Main OR PACU I Recordon 06-11 Main OR PACU I Record Main OR PACU I Rec ord PACU Phase I Document Type FT Summary Primary Physician: HAMILTON MALOEN MD Finalized Date/Time: 06/24/24 09:24:28 Pt. Name: RAIN SWEENEY Hiwot/Sex: 1960 Female Med Rec #: [id number] Physician: HAMILTON MALONE MD Financial #: [id number] Pt. Type: A Room/Bed: [facility]/ Admit/Disch: 06/24/24 06:38:13 - Institution: Case [...] I Outcomes Met? Yes Last Modified By: Florentino RN, Carli Newell 06/24/24 09:24:16 Post-Care Text: The patient demonstrates [...] Signed By: Carli Good RN 06/24/24 09:24 [facility] Main OR PACU II Recordon Main OR PACU II Record Main OR PACU II R ecord PACU Phase II Document Type FT Summary Primary Physician: HAMILTON MALONE MD Finalized Date/Time: 06/24/24 10:19:29 Pt. Name: RAIN SWEENEY/Sex: 1960 Female Med Rec #: [id number] Physician: HAMILTON MALONE MD Financial #: [id number] Pt. Type: A Room/Bed: [place] [address] Admit/Disch: 06/24/24 06:38:13 - Institution: Case Times [...] By: Reed Domingo RN 06/24/24 10:19 Normal [facility] Main OR Preoperative Recordo n 06-24-2024 Main OR Preoperative Record Main OR Preoperative Record PreOp Document Type FT Summary Primary Physician: HAMILTON MALONE MD Finalized Date/Time: 06/24/24 08:58:11 Pt. Name: RAIN SWEENEY LEYDA Mi/Sex: 1960 Female Med Rec #: [id number] Physician: HAMILTON MALONE MD Financial #: [id number] Pt. Type: A Room/Bed: [place] [address] Admit/Disch: 06/24/24 06:38:13 - Institution: Case Times [...] By: Amina Vidales RN 06/24/24 08:58 [facility] Operative Reporton 4 Operative Report Operative Report [...] in the room agreed. A well-lubricated 22 Welsh cystoscopic sheath with a 30 degree lens [...] 2 weeks discuss pathology, next steps Normal [facility] Comment on above: Result Comment: Elec tronically Signed By: GABBY RAMIREZ, HAMILTON\.br\Date and Time Signed: 06/24/24 08:47 EST Outpatient Surgery Discharge Instructionon 06-24-2024 Outpatient Surgery Discharge Instruction Outpatient Surgery Discharge Instruction [place] [id number] Patient Discharge Instructions PERSON INFORMATION Name: PATEL RAIN LEYDA Date of : 1960 Current Date: 06/24/2024 08:04:49 PHYSICIANS Admitting Physician: GABBY RAMIREZ, HAMILTON Discharge Diagnosis: RAIN SWEENEY has been given the following list of follow-up instructions, prescriptions, and patient education materials: IF UNABLE TO CONTACT YOUR PHYSICIAN AND YOU FEEL IT IS AN EMERGENCY, GO TO THE NEAREST EMERGENCY ROOM OR CALL 911 IPATEL LINDA JOY, have received the attached patient education materials/instructions and have verbalized understanding: May we do a follow up call? Yes No I was present when discharge instructions were given Patient Signature ___ Date Clinican/Nurse Signature Date Follow up: Pharmacy [...] to serve you. Thank you for choosing [facility] HERE ARE THE MEDICATION CHANGES THAT OCCURRED [...] PATIENT EDUCATION INFORMATION Instructions: Medication Leaflets: Normal [facility] XR Chest 2 Viewson XR Chest [...] TOBIN Technologist: ZARINA Technical Comments Radiation Dose: noemy Rothman in mGy = . DAP = . Normal [facility] BMPon 06-18-2024 Anion gap [Moles/Vol] 11 mmol/L Normal 6-16 [facility] Comment on above: Performed By: #### 2 [id number] #### [facility] [address] [place] [address] Calcium [Mass/Vol] 8.7 mg/dL Low 8.9-11.1 [facility] Comment on above: Performed By: #### 2 [id number] #### [facility] [address] [place] [address] Chloride [Moles/Vol] 105 mmol/L Normal 101-111 [facility] Comment on above: Performed By: #### 2 [id number] #### [facility] [address] [place] [address] CO2 [Moles/Vol] 26 mmol/L Normal 21-31 [facility] Comment on above: Performed By: #### 2 [id number] #### [facility] [address] [place] [address] Creatinine [Mass/Vol] 1.0 mg/dL Normal 0.5-1.3 [facility] Comment on above: Performed By: #### 2 [id number] #### [facility] [address] [place] [address] Glucose [Mass/Vol] 89 mg/dL Normal 55-199 [facility] Comment on above: Performed By: #### 2 [id number] #### [facility] [address] [place] [address] Potassium [Moles/Vol] 4.0 mmol/L Normal 3.5-5.3 [facility] Comment on above: Performed By: #### 2 834353 #### [facility] [address] [place] [address] Sodium [Moles/Vol] 138 mmol/L Normal 135-145 [facility] Comment on above: Performed By: #### 2 [id number] #### [facility] [address] [place] [address] Urea nitrogen [Mass/Vol] 18 mg/dL Normal 5-21 [facility] Comment on above: Performed By: #### 2 150517 #### [facility] [address] [place] [address] Urea nitrogen/Creatinine [Mass ratio] 18 No Units Normal 10-20 [facility] Comment on above: Performed By: #### 2 [id number] #### [facility] [address] [place] [address] CBC w/ Auto Diffon 4 Basophils/100 WBC (Bld) 0.9 % Normal 0.0-2.0 [facility] Comment on above: Performed By: #### 2 [id number] #### [facility] [address] [place] [address] Basophils/Leukocytes Auto (Bld) [Pure # fraction] 0.1 E9/L Normal 0.0-0.2 [facility] Comment on above: Performed By: #### 2 [id number] #### [facility] [address] [place] [address] Eosinophils (Bld) [#/Vol] 0.3 E9/L Normal 0.0-0.5 [facility] Comment on above: Performed By: #### 2 995373 #### [facility] [address] [place] [address] Eosinophils/100 WBC (Bld) 4.5 % Normal 0.0-8.0 [facility] Comment on above: Performed By: #### 2 [id number] #### [facility] [address] [place] [address] Erythrocyte distribution width (RBC) [Ratio] 15.1 % High 10.9-14.2 [facility] Comment on above: Performed By: #### 2 [id number] #### [facility] [address] [place] [address] Hematocrit (Bld) [Volume fraction] 46.2 % High 34.0-46.0 [facility] Comment on above: Performed By: #### 2 760857 #### [facility] [address] [place] [address] [place] [address] Hemoglobin (Bld) [Mass/Vol] 15.4 g/dL Normal 12.0-16.0 [facility] Comment on above: Performed By: #### 2 [id number] #### [facility] [address] [place] [address] Lymphocytes (Bld) [#/Vol] 2.2 E9/L Normal 1.0-4.0 [facility] Comment on above: Performed By: #### 2 901163 #### [facility] [address] [place] [address] Lymphocytes/100 WBC (Bld) 28.8 % Normal 14.0-50.0 [facility] Comment on above: Performed By: #### 2 [id number] #### [facility] [address] [place] [address] MCH (RBC) [Entitic mass] 29.8 pg Normal 27.0-34.0 [facility] Comment on above: Performed By: #### 2 [id number] #### [facility] [address] [place] [address] MCHC (RBC) [Mass/Vol] 33.2 g/dL Normal 31.4-36.0 [facility] Comment on above: Performed By: #### 2 [id number] #### [facility] [address] [place] [address] MCV (RBC) [Entitic vol] 89.5 fL Normal 80.0-100.0 F [facility] Comment on above: Performed By: #### 2 [id number] #### [facility] [address] [place] [address] Monocytes (Bld) [#/Vol] 0.7 E9/L Normal 0.2-1.0 [facility] Comment on above: Performed By: #### 2 [id number] #### [facility] [address] [place] [address] Neutrophils (Bld) [#/Vol] 4.3 E9/L Normal 2.0-7.5 [facility] Comment on above: Performed By: #### 2 562907 #### [facility] [address] [place] [address] Neutrophils/100 WBC (Bld) 56.9 % Normal 36.0-75.0 [facility] Comment on above: Performed By: #### 2 [id number] #### [facility] [address] [place] [address] Platelet mean volume (Bld) [Entitic vol] 8.4 fL Normal 6.4-10.8 [facility] Comment on above: Performed By: #### 2 383582 #### [facility] [address] [place] [address] Platelets (Bld) [#/Vol] 265.0 E9/L Normal 150. 0-500. 0 [facility] Comment on above: Performed By: #### 2 744054 #### [facility] [address] [place] [address] RBC (Bld) [#/Vol] 5.2 E12/L Normal 4.3-5.9 [facility] Comment on above: Performed By: #### 2 793165 #### [facility] [address] [place] [address] WBC corrected for nucl RBC Auto (Bld) [#/Vol] 7.5 E9/L Normal 4.0-11.0 [facility] Comment on above: Performed By: #### 2 [id number] #### [facility] [address] [place] [address] CHEMISTRYOrdered By: SYSTEM SYSTEM on 06-18-2024 Anion gap [Moles/Vol] 11 mmol/L Normal 6 - 16 mEq/L [facility] Calcium [Mass/Vol] 8.7 mg/dL Low 8.9 - 11. 1 mg/dL [facility] Chloride [Moles/Vol] 105 mmol/L Normal 101 - 1 11 mmol/L [facility] CO2 [Moles/Vol] 26 mmol/L Normal 21 - 31 mmol/L [facility] Creatinine [Mass/Vol] 1.0 mg/dL Normal 0.5 - 1.3 mg/dL [facility] eGFR 64 mL/min/1.73 m2 Normal >=59mL/min /1.73 m2 [facility] Glucose [Mass/Vol] 89 mg/dL Normal 55 - 199 mg/dL [facility] Potassium [Moles/Vol] 4.0 mmol/L Normal 3.5 - 5.3 mmol/L [facility] Sodium [Moles/Vol] 138 mmol/L Normal 135 - 145 mmol/L [facility] Urea nitrogen [Mass/Vol] 18 mg/dL Normal 5 - 21 mg/dL [facility] Urea nitrogen/Creatinine [Mass ratio] 18 mg/mg Normal 10 - 20 [facility] COAGULATIONOrdered By: Adia Ace on 06-18-2024 aPTT Coag (PPP) [Time] 30.9 s Normal 25.1 - 36.5 second(s) [facility] [facility] Comment on above: Interpretive Data: [...] the same coagulation reagent and instrumentation as [facility]. Currently there are no coagulation studies available worldwide for children to 14 days, and no normal ranges. Heparin therapeutic range (represented by Anti-Factor Xa activity of 0.2 - 0.4 U/mL) corresponds to PTT of 56.6 - 109.0 sec. INR Coag (PPP) [Relative time] 1.02 {INR} Invalid Interpretation Code [facility] Comment on above: Interpretive Data: I NR results are specifically intended to assess patients stabilized on long-term Anticoagulation therapy suggested INR s Less Intensive Anticoagulation 2.0 3.0 Conventional Range 3.0 4.5 PT Coag (PPP) [Time] 11.4 s Normal 9.4 - 1 2.5 second(s) [facility] Co[facility] Comment on above: Interpretive Data: [...] the same coagulation reagent and instrumentation as [facility]. Currently there are no coagulation studies available [...] MCH (RBC) [Entitic mass] 29.8 pg Normal 27.0 - 34.0 pg Remisol Heme MCHC (RBC) [...] Coag (PPP) [Time] 30.9 second(s) Normal 25.1-36.5 [facility] Comment on above: Result Comment: Para [...] the same coagulation reagent and instrumentation as [facility]. Currently there are no coagulation studies available worldwide for children to 14 days, and no normal ranges. Heparin therapeutic range (represented by Anti-Factor Xa activity of 0.2 - 0.4 U/mL) corresponds to PTT of 56.6 - 109.0 sec. Performed By: #### 1 [id number] ####[facility] [address] [place] [address] INR Coag (PPP) [Relative time] 1.02 {INR} Invalid Interpretation Code [facility] Comment on above: Result Comment: INR results are specifically intended to assess patients stabilized on long-term Anticoagulation therapy suggested INR???s ???Less Intensive Anticoagulation??? 2.0 ??? 3.0 Conventional Range 3.0 ??? 4.5 Performed By: #### 1 [id number] ####[facility] [place] [address] PT Coag (PPP) [Time] 11.4 second(s) Normal 9.4-12.5 [facility] Comment on above: Result Comment: 15 [...] the same coagulation reagent and instrumentation as [facility]. Currently there are no coagulation studies available worldwide for children to 14 days, and no normal ranges. Performed By: #### 1 [id number] ####[facility] [address] [place] [address] UA with Cult Rflxon 06-18-20 24 Bilirubin Ql (U) Negative Normal Negative [facility] Comment on above: Performed By: #### 4 [id number] #### [facility] [address] [place] [address] Clarity (U) Clear Normal Clear [facility] Comment on above: Performed By: #### 4 [id number] #### [facility] [address] [place] [address] Color (U) Colorless Abnormal Yellow [facility] Comment on above: Result Comment: Micr oscopic readings are only performed on those samples that meet specific criteria set forth by [facility]. Performed By: #### 4 [id number] #### [facility] [address] [place] [address] Glucose Ql (U) Negative Normal Negative [facility] Comment on above: Performed By: #### 4 [id number] #### [facility] [address] [place] [address] Hemoglobin Auto test strip (U) [Mass/Vol] Trace Abnormal Negative [facility] Comment on above: Performed By: #### 4 [id number] #### [facility] [address] [place] [address] Ketones Auto test strip Ql (U) Negative Normal Negative [facility] Comment on above: Performed By: #### 4 [id number] #### [facility] [address] [place] [address] Leukocyte esterase Auto test strip Ql (U) Negative Normal Negative [facility] Comment on above: Performed By: #### 4 [id number] #### [facility] [address] [place] [address] Nitrite Auto test strip Ql (U) Negative Normal Negative [facility] Comment on above: Performed By: #### 4 [id number] #### [facility] [address] [place] [address] pH (U) 6.0 [pH] Invalid Interpretation Code 5.0-9.0 [facility] Comment on above: Performed By: #### 4 [id number] #### [facility] [address] [place] [address] Protein Ql (U) Negative Normal Negative [facility] Comment on above: Performed By: #### 4 [id number] #### [facility] [address] [place] [address] Specific gravity (U) [Rel density] 1.005 Invalid Interpretation Code 1.005-1.03 0 [facility] Comment on above: Performed By: #### 4 [id number] #### [facility] [address] [place] [address] Urobilinogen (U) [Mass/Vol] Negative Normal Negative [facility] Comment on above: Performed By: #### 4 [id number] #### [facility] [address] [place] [address] Type of Urine collection method Clean Catch Normal [facility] Comment on above: Performed By: #### 4 [id number] #### [facility] [address] [place] [address] URINALYSISOrdered By: SYSTEM SYSTEM on 06-18-2024 Bilirubin Ql (U) Negative Normal Negativemg /dL [facility] UA Auto SS Clarity (U) Clear (06/18/24 3:58 PM) Normal Clear [facility] UA Auto SS Color (U) Colorless 1 *ABN* (06/18/24 3:58 PM) Invalid Interpretation Code Yellow [facility] UA Auto SS Comment on above: Interpretive Data: M icroscopic readings are only performed on those samples that meet specific criteria set forth by [facility]. Glucose Ql (U) Negative Normal Negativemg /dL [facility] UA Auto SS Hemoglobin Auto test strip (U) [Mass/Vol] Trace mg/dL Invalid Interpretation Code Negativemg /dL [facility] Auto SS Ketones Auto test strip Ql (U) Negative Normal Negativemg /dL [facility] Auto SS Leukocyte esterase Auto test strip Ql (U) Negative Normal NegativeLe u/uL [facility] UA Auto SS Nitrite Auto test strip Ql (U) Negative Normal Negativemg /dL [facility] UA Auto SS pH (U) 6.0 *NA* (06/18/24 3:58 PM) Invalid Interpretation Code 5.0 - 9.0 [facility] UA Auto SS Protein Ql (U) Negative Normal Negativemg /dL [facility] UA Auto SS Specific gravity (U) [Rel density] 1.005 *NA* (06/18/24 3:58 PM) Invalid Interpretation Code 1.005 - 1.030 [facility] UA Auto SS Urobilinogen (U) [Mass/Vol] Negative Normal Negativemg /dL [facility] UA Auto SS URINALYSISOrdered By: Reed Domingo on 06-18-2024 UA Spec Desc Clean Catch (06/18/24 3:58 PM) Normal [facility] UA Auto SS eGFRon 06-18-2024 eGFR 64 mL/min/1.73 m2 Normal >=59 [facility] Comment on above: Performed By: #### 1 [id number] #### [facility] [address] [place] [address] Ambulatory Visit Summaryon 1 08-11-2023 Ambulatory Visit Summary Ambulatory Visit Summary RAIN SWEENEY :1960 Visit Date:06/11/2024 Ambulatory [...] Appointments Friday 3:30 PM EST Where: [facility] 2023 9:00 AM EST Where: [...] including vitamins, herbs, eye drops, creams, and vvvo-awg-brrfwiu medicines. ??? Any problems you or family [...] nguyen (more content not included)... Normal [facility] Urology Office/Clinic Noteon 06-11-2024 Urology Office/Clinic [...] times per week. SE discussed. Sent to [facility]. 4. Urethral caruncle (N36.2: Urethral caruncle) See [...] With When Contact Information HAMILTON MALONE MD, JAYY Additional Instructions: schedule cysto with bladder tumor bx Patient Education Injection Treatments for Urinary Incontinence Keradha Cassidy I, Shahla Evans, personally scribed for Dr. Hamilton Malone on 06/11/2024 10:15:05. . Portions of this record may have been created with voice recognition artificial intelligence software, specifically ExactTarget, MabLyte and or Cap That. Substitutions may have occurred due to the inherent limitations of voice recognition and artificial intelligence software. Documentation recorded by the scribe, Shahla Evans, accurately reflects the services(s) I performed and decisions made by me. Authenticated by Dr. Malone on 06/11/2024 10:32:41. Problem List/Past Medic (more content not included)... Normal [facility] Comment on above: Result Comment: Elec tronically Signed By: HAMILTON MALONE MD\.br\Date and Time Signed: 06/11/24 10:33 EDT\.br\Electronically Co-Signed By: Shahla Evans P\.br\Date and Time Co-Signed: 06/11/24 10:15 EDT Laboratory - Chemistry and C hemistry - challengeon 06-04-2024 Bilirubin Ql (U) Negative [facility] Glucose (U) [Mass/Vol] Negative Fi [facility] Ketones Ql (U) Negative [facility] pH (U) 5 [pH] [facility] Specific gravity (U) [Rel density] 1.000 [facility] Urobilinogen (U) [Mass/Vol] 0.2 mg/dL [facility] Laboratory - Specimen inform ationon 06-04-2024 Appearance (U) cloudy [facility] Color (U) alvin [facility] Laboratory - Urinalysison Leukocyte esterase Test strip Ql (U) ++ [facility] Nitrite Ql (U) Negative [facility] Protein Ql (U) Negative [facility] No Panel Informationon 06-04 Urine Occult Blood +++ [facility] Urine Cultureon 06-04-2024 Bacteria identified Cx Nom (U) ORGANISM: Klebsiella pneumoniae (O:KLEPNE) [place] Count >100,000 Aerobic ILANA Charge (NMIC56) SUSCEPTIBILITY ORGANISM: O:KLEPNE ANTIBIOTIC INTERPRETATION ILANA Amikacin S <16 Amoxacillin/K Clavulanate S <8 Ampicillin/Sulbactam S <4 Aztreonam S <4 Cefazolin S <2 Cefepime S <2 Ceftazidime S <1 Ceftazidime/Avibactam S <4 Ceftolozane/Tazobactam S <2 Ceftriaxone S <1 Cefuroxime S <4 Ciprofloxacin S <0.25 Ertapenem S <0.5 Gentamicin S <2 Levofloxacin S <0.5 Meropenem S <1 Meropenem/Vaborbactam S <2 Nitrofurantoin S <32 Piperacillin/Tazobactam S <8 Tetracycline S <4 Tigecycline S <2 Tobramycin S <2 Trimethoprim/Sulfamethoxa zole S <0.5 S = SUSCEPTIBLE I = [...] RESISTANT TO ALL B-LACTAM DRUGS. PERFORMED BY: [facility] [address] [place] [address] PATHOLOGIST ENVIRONMENTAL SERVICES ASSOCIATE ALEXEI COLE M.D. Normal [facility] Comment on above: Performed By: #### C UU #### [facility] [address] [id number] [facility] Urine cultureOrdered By: Gabriela Barry on 06-04-2024 Bacteria identified Cx Nom (U) Abnormal [facility] Urology Office/Clinic Noteon 05-28-2024 Urology Office/Clinic [...] E&M of New Patient Moderate 45-59 Min 34125 Orders: ciprofloxacin, See Instructions, 1 tab po day prior to cysto, 1 tab po following cysto, # 2 tab(s), Refills(s) 0, Pharmacy: [facility]/pharmacy #[id number], 170, cm, 05/25/24 10:38:00 EDT, Height/Length Dosing, 84, kg, 05/25/24 10:38:00 EDT, Weight Dosing Follow-up With When Contact Information [facility] [place] [address] Business (1) Additional Instructions: our care team coordinator scheduler will be contacting you for follow-up [...] venlafaxine Allergies (more content not included)... Normal [facility] Comment on above: Result Comment: Elec tronically Signed By: MARK CARLTON, KARON Aguilar.br\Date and Time Signed: 05/28/24 14:13 EDT Cholesterol in LDL Calc [Mas s/Vol]on 05-26-2024 Cholesterol in LDL [Mass/Vol] 160.0 mg/dL [facility] Comment on above: <100 mg/dl [id number] 0-129 mg/dl NEAR OR ABOVE [id number] mg/dl BORDERLINE [id number] mg/dl HIGH>190 mg/dl VERY HIGH Cholesterol in LDL [Mass/Vol] Cholesterol in LDL [Mass/volume] in Serum or Plasma by calculation [facility] Comment on above: <100 mg/dl [id number] 0-129 mg/dl NEAR OR ABOVE RBCNXQD855-257 mg/dl BORDERLINE DIJM028-952 mg/dl HIGH>190 mg/dl VERY HIGH Cholesterol in VLDL Calc [Ma ss/Vol]on 05-26-2024 Cholesterol in VLDL [Mass/Vol] 41.0 mg/dL [facility] Cholesterol in VLDL [Mass/Vol] Cholesterol in VLDL [Mass/volume] in Serum or Plasma by calculation [facility] Estimated glomerular filtrat ion rate (GFR) non- Americanon 05-26-2024 GFR/1.73 sq M.predicted among non-blacks MDRD (S/P/Bld) [Vol rate/Area] 44 mL/min/{1.73_m2} Low >=60 mL/min/1.7 3m 2 [facility] GFR/1.73 sq M.predicted among non-blacks MDRD (S/P/Bld) [Vol rate/Area] Estimated glomerular filtration rate (GFR) non- Low >=60 mL/min/1.7 3m 2 [facility] Globulin Calc (S) [Mass/Vol] on 05-26-2024 Globulin (S) [Mass/Vol] 4.3 g/dL F [facility] Globulin (S) [Mass/Vol] Serum globulin measurement by calculation (mass/volume) [facility] Laboratory - Chemistry and C hemistry - challengeon 05-26-2024 Albumin [Mass/Vol] 3.5 g/dL 3.4-5.0 [facility] ALP [Catalytic activity/Vol] 110 U/L 46-116 [facility] ALT [Catalytic activity/Vol] 21 U/L 14-59 [facility] AST [Catalytic activity/Vol] 14 U/L Low 15-37 [facility] Bilirubin [Mass/Vol] 0.2 mg/dL 0.2-1.0 [facility] Bilirubin.direct [Mass/Vol] 0.1 mg/dL 0.0-0.2 [facility] Cholesterol [Mass/Vol] 281 mg/dL High <=200 [facility] Cholesterol in HDL [Mass/Vol] 80 mg/dL High 40-60 [facility] Comment on above: > or =60 mg/dl - LOW CARDIOVASCULAR RISK<40 mg/dl - HIGH CARDIOVASCULAR RISK Creatinine [Mass/Vol] 1.24 mg/dL High 0.55-1.02 [facility] GFR/1.73 sq M.predicted MDRD (S/P/Bld) [Vol rate/Area] 53 mL/min/{1.73_m2} Low >=60 mL/min/1.7 3m 2 [facility] Glucose [Mass/Vol] 110 mg/dL High 74-106 [facility] Protein [Mass/Vol] 7.8 g/dL 6.4-8.2 [facility] Triglyceride [Mass/Vol] 205 mg/dL High <=150 F [facility] TSH Qn 1.756 m[IU]/L 0.358-3.74 0 [facility] Urea nitrogen [Mass/Vol] 16.0 mg/dL 7.0-18.0 [facility] No Panel Informationon 05-26 [place] Level 0.6 mmol/L 0.5-1.2 [facility] Comment on above: A concentration of 0 .5-0.8 mmol/L is advised for long-termuse; concentrations of up to 1.2 mmol/L may be necessaryduring acute treatment. Detection Limit = 0.1 <0.1 indicates None DetectedPerformed at: [facility] [id number] Director: Reji Williamson PhD, Phone: [phone] Serum or plasma albumin/glob ulin mass ratioon 05-26-2024 Albumin/Globulin [Mass ratio] 0.8 {ratio} [facility] Albumin/Globulin [Mass ratio] Serum or plasma albumin/globulin mass ratio [facility] Serum or plasma total choles terol/high density lipoprotein (HDL) cholesterol mass yoselyn 05-26-2024 Cholesterol.total/Linda sterol in HDL [Mass ratio] 3.5 {ratio} [facility] Comment on above: 3.3 - 4.4 LOW RISK4. 4 - 7.1 AVERAGE RISK7.1 - 11.0 MODERATE RISK>11.0 HIGH RISK Cholesterol.total/Linda sterol in HDL [Mass ratio] Serum or plasma total cholesterol/high density lipoprotein (HDL) cholesterol mass rat [facility] Comment on above: 3.3 - 4.4 LOW RISK4. 4 - 7.1 AVERAGE RISK7.1 - 11.0 MODERATE RISK>11.0 HIGH RISK Ambulatory Visit Summaryon 1 Ambulatory Visit Summary Ambulatory Visit Summary RAIN SWEENEY :1960 Visit Date:05/25/2024 Ambulatory [...] including vitamins, herbs, eye drops, creams, and yyjo-fbf-nxkjzsu medicines. ? Any problems you or family [...] tells you to take them. ? Taking aqoi-heg-fxhfpjt medicines, vitamins, herbs, and supplements. Surgery safety Ask your health care provider: ? How your surgery site will be marked. ? What steps will be taken to help prevent infection. These steps may include: ? Removing hair at the surgery site. ? Washing skin wi (more content not included)... Normal [facility] - Chemistry and C hemistry - challengeon 05-19-2024 Bilirubin Ql (U) Negative [facility] Glucose (U) [Mass/Vol] Negative [facility] Ketones Ql (U) Negative [facility] pH (U) 7.0 [pH] [facility] Specific gravity (U) [Rel density] 1.010 [facility] Urobilinogen (U) [Mass/Vol] 0.2 mg/dL [facility] Laboratory - Microbiology an d Antimicrobial susceptibilityOrdered By: Adamaris Hill on 05-19-2024 Bacteria identified Cx Nom (U) Klebsiella pneumoniae Abnormal [facility] Laboratory - Specimen inform ationon 05-19-2024 Appearance (U) clear [facility] Color (U) darkyellow [facility] Laboratory - Urinalysison Leukocyte esterase Test strip Ql (U) moderate [facility] Nitrite Ql (U) Positive [facility] Protein Ql (U) Negative [facility] No Panel Informationon 05-19 Urine Occult Blood moderate [facility] Urine Cultureon 05-19-2024 Bacteria identified Cx Nom (U) ORGANISM: Klebsiella pneumoniae (O:KLEPNE) [place] Count 75,000 Aerobic ILANA Charge (NMIC56) SUSCEPTIBILITY ORGANISM: O:KLEPNE ANTIBIOTIC INTERPRETATION ILANA Amikacin S <16 Amoxacillin/K Clavulanate S <8 Ampicillin/Sulbactam S <4 Aztreonam S <4 Cefazolin S <2 Cefepime S <2 Ceftazidime S <1 Ceftazidime/Avibactam S <4 Ceftolozane/Tazobactam S <2 Ceftriaxone S <1 Cefuroxime S <4 Ciprofloxacin S <0.25 Ertapenem S <0.5 Gentamicin S <2 Levofloxacin S <0.5 Meropenem S <1 Meropenem/Vaborbactam S <2 Nitrofurantoin S <32 Piperacillin/Tazobactam S <8 Tetracycline S <4 Tigecycline S <2 Tobramycin S <2 Trimethoprim/Sulfamethoxa zole S <0.5 S = SUSCEPTIBLE I = [...] RESISTANT TO ALL B-LACTAM DRUGS. PERFORMED BY: [place] [address] PATHOLOGIST ENVIRONMENTAL SERVICES ASSOCIATE ALEXEI COLE M.D. Normal [facility] Comment on above: Performed By: #### C UU #### [address] Urine cultureOrdered By: Pascale Hill on 05-19-2024 Bacteria identified Cx Nom (U) Abnormal [facility] HIV AB/P24 AG WITH REFLEXon 05-05-2024 HIV AB/P24 AG SCREEN Non-Reactive Non Reactive [facility] Comment on above: HIV-1/HIV-2 antibodi es and HIV-1 p24 antigen were NOT detected. There is no laboratory evidence of HIV infection. HIV Negative Performed at: [facility] [id number] Treer: Reji Williamson PhD, Phone: [phone] [facility] HBV surface Ag IA Qlon 05-04 Hepatitis B Surface Antigen Negative Negative [facility] Comment on above: Performed at: [facility] [address] [id number] Director: Reji Williamson PhD, Phone: [phone] Performed at: [facility] [address] [id number] Director: Reji Williamson PhD, Phone: [phone] HIV 1 and HIV-2 antibody ass ay with HIV-1 p24 antigen detectionon 05-04-2024 HIV 1+2 Ab+HIV1 p24 Ag IA Ql Non-Reactive Non Reactive [facility] Comment on above: HIV-1/HIV-2 antibodi es and HIV-1 p24 antigen were NOTdetected. There is no laboratory evidence of HIV infection.HIV NegativePerformed at: [facility] [id number] Director: Reji Williamson PhD, Phone: [phone] HIV 1+2 Ab+HIV1 p24 Ag IA Ql HIV 1 and HIV-2 antibody assay with HIV-1 p24 antigen detection Non Reactive [facility] Comment on above: HIV-1/HIV-2 antibodi es and HIV-1 p24 antigen were NOTdetected. There is no laboratory evidence of HIV infection.HIV NegativePerformed at: [facility] [id number] Director: Reji Williamson PhD, Phone: [phone] No Panel Informationon 05-04 RPR Quantitative Confirmation Non Reactive titer NonRea<1:1 [facility] Comment on above: Please Note: This te st does not meet current guidelines forscreening and diagnosis of syphilis. This test isintended for following treatment response in patients beingtreated for syphilis infection. To screen for syphilisinfection, a reflex cascade that includes both RPR and atreponema-specific assay should be utilized, such asTreponema pallidum (Syphilis) Screening [place] (824367) orRapid Plasma Reagin (RPR) Test With Reflex to QuantitativeRPR and Confirmatory Treponema pallidum Antibodies([id number]).Performed at: [facility] [address] [id number] Director: Reji Williamson PhD, Phone: [phone] IGP,APTIMA HPV,AGE GDLNon AGE GDLN ACOG TESTING Note . [facility] Comment on above: TESTS RESULT FLAG UN ITS REF RANGE LAB Clinician Provided Cytology Information Source.............Cervix;Endocervix No. of containers..01 ThinPrep Vial Age Algo ACOG Hailee... 30-65 01 FLAG LEGEND: L-Low Normal,H-High Normal,LL-Alert Low,HH-Alert High <-Panic Low,>-Panic High,A-Abnormal,AA-Critical Abnormal Performed at: 01 [address] [address] Karena Shane MD, HPV APTIMA Negative Negative [facility] Comment on above: This nucleic acid am plification test detects fourteen high- risk HPV types (16,18,31,33,35,39,45,51,52,56,58,59,66,68) without differentiation. Performed at: =[address] [id number] Treer: Karena Shane MD, Phone: [phone] Performed at: [address] [id number] Treer: Karena Shane MD, Phone: [phone] IGP, APTIMA HPV, RFX 16/18,[address] [facility] Comment on above: TESTS RESULT FLAG UN ITS REF RANGE LAB DIAGNOSIS: 02 NEGATIVE FOR INTRAEPITHELIAL LESION OR MALIGNANCY. Specimen adequacy: 02 Satisfactory for evaluation. No endocervical component is identified. Performed by: 02 Ernestine Pozo, Wire Spinner (ASCP) . 02 Note: Note 02 The [...] <-Panic Low,>-Panic High,A-Abnormal,AA-Critical Abnormal Performed at: [address] [address] Karena Shane MD, BRUSH-SPATULA CERVIX ENDOCERVIX [facility] URETHRITIS/DISCHARGE PLUS VA GINITIS (HTRX)on 04-23-2024 [...] 31+33+35+39+45+51+52+56+58+59+66+68 DNA [Presence] in [place] 04-21-2024 HPV 16+18+31+33+35+39+45+51 +52+56+58+59+66+68 DNA Probe+sig amp Ql (Cvx) Negative Negative [facility] Comment on above: This nucleic acid am plification test detects fourteen high-risk HPV types (16,18,31,33,35,39,45,51,52,56,58,59,66,68)without differentiation.Performed at: =[address] [id number] Director: Karena Shane MD, Phone: [phone] at: [address] [id number] Director: Karena Shane MD, Phone: [phone] HPV 16+18+31+33+35+39+45+51 +52+56+58+59+66+68 DNA Probe+sig amp Ql (Cvx) Human papilloma virus 16+18+31+33+35+39+45+51+5 2+56+58+59+66+68 DNA [Presence] in Cer Negative [facility] Comment on above: This nucleic acid am plification test detects fourteen high-risk HPV types (16,18,31,33,35,39,45,51,52,56,58,59,66,68)without differentiation.Performed at: =[address] [id number] Director: Karena Shane MD, Phone: [phone] at: [address] [id number] Director: Karena Shane MD, Phone: [phone] No Panel Informationon 04-21 HPV High Risk Other Comment Note . [facility] Comment on above: TESTS RESULT FLAG UN ITS REF RANGE LAB -DIAGNOSIS: 02 NEGATIVE FOR INTRAEPITHELIAL LESION OR MALIGNANCY.Specimen adequacy: 02 Satisfactory for evaluation. No endocervical component is identified.Performed by: Dionne Pozo, Wire Spinner ([facility]). 02Note: Note 02 The Pap smear is [...] Criteria not met, HPV Genotype not performed. -------- FLAG LEGEND: L-Low Normal,H-High Normal,LL-Alert Low,HH-Alert High <-Panic Low,>-Panic High,A-Abnormal,AA-Critical Abnormal ------Performed at:[address] [address] Karena Shane MD, Reference Lab Test Patient Age Note . [facility] [facility] Comment on above: TESTS RESULT FLAG UN ITS REF RANGE LAB - Clinician Provided Cytology Information Source.............Cervix;Endocervix No. of containers..01 ThinPrep VialAge Bernardo DRIVER Hailee... FLAG LEGEND: L-Low Normal,H-High Normal,LL-Alert Low,HH-Alert High <-Panic Low,>-Panic High,A-Abnormal,AA-Critical Abnormal ------Performed at:01 [address] [id number] Karena Shane MD, Basophils Auto (Bld) [#/Vol] on 04-09-2024 Basophils (Bld) [#/Vol] 0.1 10 3/uL 0.0-0.1 [facility] Basophils (Bld) [#/Vol] Automated basophil count 0.0-0.1 [facility] Basophils/100 WBC Auto (Bld) on 04-09-2024 Basophils/100 WBC (Bld) 0.8 % 0.2-2.0 F [facility] Basophils/100 WBC (Bld) Automated basophil % 0. 2-2.0 [facility] Cholesterol in LDL Calc [Mas s/Vol]on 04-09-2024 Cholesterol in LDL [Mass/Vol] 156.0 mg/dL [facility] Comment on above: <100 mg/dl [id number] 0-129 mg/dl NEAR OR ABOVE [id number] mg/dl BORDERLINE [id number] mg/dl HIGH>190 mg/dl VERY HIGH Cholesterol in LDL [Mass/Vol] Cholesterol in LDL [Mass/volume] in Serum or Plasma by calculation [facility] Comment on above: <100 mg/dl [id number] 0-129 mg/dl NEAR OR ABOVE [id number] mg/dl BORDERLINE [id number] mg/dl HIGH>190 mg/dl VERY HIGH Cholesterol in VLDL Calc [Ma ss/Vol]on 04-09-2024 Cholesterol in VLDL [Mass/Vol] 37.6 mg/dL [facility] Cholesterol in VLDL [Mass/Vol] Cholesterol in VLDL [Mass/volume] in Serum or Plasma by calculation [facility] Eosinophils/100 WBC Auto (Bl d)on 04-09-2024 Eosinophils/100 WBC (Bld) 2.3 % 0.9-7.0 [facility] Eosinophils/100 WBC (Bld) Automated eosinophil % 0.9-7.0 [facility] Erythrocyte distribution wid th Auto (RBC) [Ratio]on 04-09-2024 Erythrocyte distribution width (RBC) [Ratio] 14.2 % 11.0-15.0 [facility] Erythrocyte distribution width (RBC) [Ratio] Erythrocyte distribution width [Ratio] by Automated count 11.0-15.0 [facility] Globulin Calc (S) [Mass/Vol] on 04-09-2024 Globulin (S) [Mass/Vol] 3.7 g/dL F [facility] Globulin (S) [Mass/Vol] Serum globulin measurement by calculation (mass/volume) [facility] Hematocrit Auto (Bld) [Volum e fraction]on 04-09-2024 Hematocrit (Bld) [Volume fraction] 48.4 % High 36.0-48.0 [facility] Hematocrit (Bld) [Volume fraction] Hematocrit [Volume Fraction] of Blood by Automated count High 36.0-48.0 [facility] Hemoglobin [Mass/volume] in Bloodon 04-09-2024 Hemoglobin (Bld) [Mass/Vol] 15.8 g/dL 12.0-16.0 [facility] Hemoglobin (Bld) [Mass/Vol] Hemoglobin [Mass/volume] in Blood 12.0-16.0 [facility] Laboratory - Chemistry and C hemistry - challengeon 04-09-2024 Albumin [Mass/Vol] 3.5 g/dL 3.4-5.0 [facility] ALP [Catalytic activity/Vol] 92 U/L 46-116 [facility] ALT [Catalytic activity/Vol] 30 U/L 14-59 [facility] AST [Catalytic activity/Vol] 17 U/L 15-37 [facility] Bilirubin [Mass/Vol] 0.6 mg/dL 0.2-1.0 [facility] Bilirubin.direct [Mass/Vol] 0.1 mg/dL 0.0-0.2 [facility] Cholesterol [Mass/Vol] 263 mg/dL High <=200 Fi [facility] Cholesterol in HDL [Mass/Vol] 70 mg/dL High 40-60 [facility] Comment on above: > or =60 mg/dl - LOW CARDIOVASCULAR RISK<40 mg/dl - HIGH CARDIOVASCULAR RISK Protein [Mass/Vol] 7.2 g/dL 6.4-8.2 [facility] Triglyceride [Mass/Vol] 188 mg/dL High <=150 F [facility] Laboratory - Hematology and Cell countson 04-09-2024 Immature granulocytes/100 WBC (Bld) 0.7 % High 0.0-0.5 [facility] Leukocytes [#/volume] correc sheeba for nucleated erythrocytes in Blood by Automated counon 04-09-2024 WBC corrected for nucl RBC Auto (Bld) [#/Vol] 7.4 10 3/uL 4.0-11.0 [facility] WBC corrected for nucl RBC Auto (Bld) [#/Vol] Leukocytes [#/volume] corrected for nucleated erythrocytes in Blood by Automated coun 4.0-11.0 [facility] Lymphocytes Auto (Bld) [#/Vo l]on 04-09-2024 Lymphocytes (Bld) [#/Vol] 1.9 10 3/uL 1.2-3.8 [facility] Lymphocytes (Bld) [#/Vol] Lymphocytes [#/volume] in Blood by Automated count 1.2-3.8 [facility] Lymphocytes/100 WBC Auto (Bl d)on 04-09-2024 Lymphocytes/100 WBC (Bld) 25.8 % 20.5-60.0 [facility] Lymphocytes/100 WBC (Bld) Lymphocytes/100 leukocytes in Blood by Automated count .5-60.0 [facility] MCH Auto (RBC) [Entitic mass ]on 04-09-2024 MCH (RBC) [Entitic mass] 29.5 pg 26.7-34.0 [facility] MCH (RBC) [Entitic mass] MCH [Entitic mass] by Automated count 26.7-34.0 [facility] MCHC Auto (RBC) [Mass/Vol]on 04-09-2024 MCHC (RBC) [Mass/Vol] 32.6 g/dL 29.9-35.2 [facility] MCHC (RBC) [Mass/Vol] MCHC [Mass/volume] by Automated count 29.9-35.2 [facility] MCV Auto (RBC) [Entitic vol] on 04-09-2024 MCV (RBC) [Entitic vol] 90.3 fL 81.0-99.0 F [facility] MCV (RBC) [Entitic vol] MCV [Entitic vol ume] by Automated count 81.0-99.0 [facility] Monocytes Auto (Bld) [#/Vol] on 04-09-2024 Monocytes (Bld) [#/Vol] 0.6 10 3/uL 0.3-0.8 [facility] Monocytes (Bld) [#/Vol] Automated blood monocyte count 0.3-0.8 [facility] Monocytes/100 WBC Auto (Bld) on 04-09-2024 Monocytes/100 WBC (Bld) 7.9 % 1.7-12.0 F [facility] Monocytes/100 WBC (Bld) Automated monocyte % 1. 7-12.0 [facility] Neutrophils Auto (Bld) [#/Vo l]on 04-09-2024 Neutrophils (Bld) [#/Vol] 4.6 10 3/uL 1.4-6.5 [facility] Neutrophils (Bld) [#/Vol] Neutrophils [#/volume] in Blood by Automated count 1.4-6.5 [facility] Neutrophils/100 WBC Auto (Bl d)on 04-09-2024 Neutrophils/100 WBC (Bld) 62.5 % 43.0-75.0 [facility] Neutrophils/100 WBC (Bld) Automated neutrophil % 43.0-75.0 [facility] No Panel Informationon 04-09 Eosinophils # (Auto) 0.2 10 3/uL 0.0-0.7 [facility] Follicle Stimulating Hormone 71.8 mIU/mL 25.8-134.8 [facility] Comment on above: Adult Female Range F ollicular phase 3.5 - 12.5 Ovulation phase 4.7 - 21.5 Luteal phase 1.7 - 7.7 Postmenopausal 25.8 - 134.8Performed at: [facility] [place], [place] [id number] Director: Reji Williamson PhD, Phone: [phone] Immature Granulocyte # (Auto) 0.05 10 3/uL High 0.00-0.03 [facility] [place] Level 0.1 mmol/L Abnormal 0.5-1.2 [facility] Comment on above: A concentration of 0 .5-0.8 mmol/L is advised for long-termuse; concentrations of up to 1.2 mmol/L may be necessaryduring acute treatment. Detection Limit = 0.1 <0.1 indicates None DetectedPerformed at: [facility] [id number] [place], [place] [id number] Director: Reji Williamson PhD, Phone: [phone] Platelet mean volume Auto (B ld) [Entitic vol]on 04-09-2024 Platelet mean volume (Bld) [Entitic vol] 10.0 fL 9.5-13.5 [facility] Platelet mean volume (Bld) [Entitic vol] Platelet mean volume [Entitic volume] in Blood by Automated count 9.5-13.5 [facility] Platelets Auto (Bld) [#/Vol] on 04-09-2024 Platelets (Bld) [#/Vol] 278 10 3/uL 150-450 [facility] Platelets (Bld) [#/Vol] Platelets [#/vol ume] in Blood by Automated count 150-450 [facility] RBC Auto (Bld) [#/Vol]on RBC (Bld) [#/Vol] 5.36 10 6/uL 4.20-5.40 [facility] RBC (Bld) [#/Vol] Erythrocytes [#/volu me] in Blood by Automated count 4.20-5.40 [facility] Serum or plasma albumin/glob ulin mass ratioon 04-09-2024 Albumin/Globulin [Mass ratio] 0.9 {ratio} [facility] Albumin/Globulin [Mass ratio] Serum or plasma albumin/globulin mass ratio [facility] Serum or plasma total choles terol/high density lipoprotein (HDL) cholesterol mass yoselyn 04-09-2024 Cholesterol.total/Linda sterol in HDL [Mass ratio] 3.8 {ratio} [facility] Comment on above: 3.3 - 4.4 LOW RISK4. 4 - 7.1 AVERAGE RISK7.1 - 11.0 MODERATE RISK>11.0 HIGH RISK Cholesterol.total/Linda sterol in HDL [Mass ratio] Serum or plasma total cholesterol/high density lipoprotein (HDL) cholesterol mass rat [facility] Comment on above: 3.3 - 4.4 [...] SARS-CoV-2 (COVID-19) mRNA-1273 vaccine 11/11/2020 Recorded Normal [facility] Comment on above: Result Comment: Elec [...] SARS-CoV-2 (COVID-19) mRNA-1273 vaccine 11/11/2020 Recorded Normal [facility] Operative Reporton Operative Report [id number]#1.00TIFF Normal [facility] Pathology Noteon 01-08-2024 Pathology Note [id number]#1.00TIFF Normal [facility] Consent for Procedure/Surger yon 11-21-2023 Consent for Procedure/Surgery [id number]#1.00TIFF Normal [facility] Facesheeton 11-20-2023 Facesheet [id number]#1.00TIFF Normal [facility] RAD - Ultrasound Reporton RAD - Ultrasound Report [id number]#1.00TIFF [facility] Ambulatory Visit Summaryon 0 11-19-2023 [...] choosing us for your care. Normal [facility] Basophils Auto (Bld) [#/Vol] on 11-18-2023 Basophils (Bld) [#/Vol] 0.1 10 3/uL 0.0-0.1 [facility] Basophils/100 WBC Auto (Bld) on 11-18-2023 Basophils/100 WBC (Bld) 0.9 % 0.2-2.0 F [facility] Cholesterol in LDL Calc [Mas s/Vol]on 11-18-2023 Cholesterol in LDL [Mass/Vol] 130.0 mg/dL [facility] Comment on above: <100 mg/dl [id number] 0-129 mg/dl NEAR OR ABOVE MBXVGEG055-801 mg/dl BORDERLINE WEUV760-679 mg/dl HIGH>190 mg/dl VERY HIGH Cholesterol in VLDL Calc [Ma ss/Vol]on 11-18-2023 Cholesterol in VLDL [Mass/Vol] 19.8 mg/dL [facility] Eosinophils/100 WBC Auto (Bl d)on 11-18-2023 Eosinophils/100 WBC (Bld) 4.5 % 0.9-7.0 [facility] Erythrocyte distribution wid th Auto (RBC) [Ratio]on 11-18-2023 Erythrocyte distribution width (RBC) [Ratio] 13.6 % 11.0-15.0 [facility] Estimated glomerular filtrat ion rate (GFR) non- Americanon 11-18-2023 GFR/1.73 sq M.predicted among non-blacks MDRD (S/P/Bld) [Vol rate/Area] 55 mL/min/{1.73_m2} >=60 [facility] Globulin Calc (S) [Mass/Vol] on 11-18-2023 Globulin (S) [Mass/Vol] 3.6 g/dL F [facility] Glucose mean value [Mass/vol ume] in Blood Estimated from glycated hemoglobinon 11-18-2023 Average glucose Estimated from glycated hemoglobin (Bld) [Mass/Vol] 100 mg/dL [facility] Hematocrit Auto (Bld) [Volum e fraction]on 11-18-2023 Hematocrit (Bld) [Volume fraction] 46.8 % 36.0-48.0 [facility] Hemoglobin [Mass/volume] in Bloodon 11-18-2023 Hemoglobin (Bld) [Mass/Vol] 15.0 g/dL 12.0-16.0 [facility] Laboratory - Chemistry and C hemistry - challengeon 11-18-2023 Albumin [Mass/Vol] 3.7 g/dL 3.4-5.0 [facility] ALP [Catalytic activity/Vol] 83 U/L 46-116 [facility] ALT [Catalytic activity/Vol] 40 U/L 14-59 [facility] AST [Catalytic activity/Vol] 22 U/L 15-37 [facility] Bilirubin [Mass/Vol] 0.4 mg/dL 0.2-1.0 [facility] Calcium [Mass/Vol] 9.1 mg/dL 8.5-10.1 [facility] Chloride [Moles/Vol] 104 mmol/L 98-107 [facility] Cholesterol [Mass/Vol] 226 mg/dL <=200 [facility] Cholesterol in HDL [Mass/Vol] 77 mg/dL 40-60 [facility] Comment on above: > or =60 mg/dl - LOW CARDIOVASCULAR RISK<40 mg/dl - HIGH CARDIOVASCULAR RISK CO2 [Moles/Vol] 26.6 mmol/L 21.0-32.0 [facility] Creatinine [Mass/Vol] 1.02 mg/dL 0.55-1.02 [facility] GFR/1.73 sq M.predicted MDRD (S/P/Bld) [Vol rate/Area] mL/min/{1.73_m2} >=60 [facility] Glucose [Mass/Vol] 107 mg/dL 74-106 [facility] Potassium [Moles/Vol] 3.7 mmol/L 3.5-5.1 [facility] Protein [Mass/Vol] 7.3 g/dL 6.4-8.2 [facility] Sodium [Moles/Vol] 141 mmol/L 136-145 [facility] Triglyceride [Mass/Vol] 99 mg/dL <=150 F [facility] TSH Qn 1.352 m[IU]/L 0.358-3.74 0 [facility] Urea nitrogen [Mass/Vol] 9.0 mg/dL 7.0-18.0 [facility] Urea nitrogen/Creatinine [Mass ratio] 8.8 mg/mg [facility] Laboratory - Hematology and Cell countson 11-18-2023 HbA1c (Bld) [Mass fraction] 5.1 % 4.5-6.2 [facility] Comment on above: ADA RECOMMENDED LIMI T 4.0 - 6.0ADA THERAPEUTIC TARGET < 7.0ACTION SUGGESTED> 7.0 Immature granulocytes/100 WBC (Bld) 0.6 % 0.0-0.5 [facility] Leukocytes [#/volume] correc sheeba for nucleated erythrocytes in Blood by Automated counon 11-18-2023 WBC corrected for nucl RBC Auto (Bld) [#/Vol] 6.5 10 3/uL 4.0-11.0 [facility] Lymphocytes Auto (Bld) [#/Vo l]on 11-18-2023 Lymphocytes (Bld) [#/Vol] 1.7 10 3/uL 1.2-3.8 [facility] Lymphocytes/100 WBC Auto (Bl d)on 11-18-2023 Lymphocytes/100 WBC (Bld) 25.3 % 20.5-60.0 [facility] MCH Auto (RBC) [Entitic mass ]on 11-18-2023 MCH (RBC) [Entitic mass] 29.6 pg 26.7-34.0 [facility] MCHC Auto (RBC) [Mass/Vol]on 11-18-2023 MCHC (RBC) [Mass/Vol] 32.1 g/dL 29.9-35.2 [facility] MCV Auto (RBC) [Entitic vol] on 11-18-2023 MCV (RBC) [Entitic vol] 92.3 fL 81.0-99.0 F [facility] Monocytes Auto (Bld) [#/Vol] on 11-18-2023 Monocytes (Bld) [#/Vol] 0.5 10 3/uL 0.3-0.8 [facility] Monocytes/100 WBC Auto (Bld) on 11-18-2023 Monocytes/100 WBC (Bld) 7.4 % 1.7-12.0 F [facility] Neutrophils Auto (Bld) [#/Vo l]on 11-18-2023 Neutrophils (Bld) [#/Vol] 4.0 10 3/uL 1.4-6.5 [facility] Neutrophils/100 WBC Auto (Bl d)on 11-18-2023 Neutrophils/100 WBC (Bld) 61.3 % 43.0-75.0 [facility] No Panel Informationon 11-17 Eosinophils # (Auto) 0.3 10 3/uL 0.0-0.7 [facility] Immature Granulocyte # (Auto) 0.04 10 3/uL 0.00-0.03 [facility] [place] Level 0.9 mmol/L 0.5-1.2 [facility] Comment on above: A concentration of 0 .5-0.8 mmol/L is advised for long-termuse; concentrations of up to 1.2 mmol/L may be necessaryduring acute treatment. Detection Limit = 0.1 <0.1 indicates None DetectedPerformed at: [facility] [address] [id number] Director: Reji Williamson PhD, Phone: [phone] Outside Mammographyon 2023 Outside Mammography [id number]#1.00TIFF Normal [facility] Platelet mean volume Auto (B ld) [Entitic vol]on 11-18-2023 Platelet mean volume (Bld) [Entitic vol] 10.1 fL 9.5-13.5 [facility] Platelets Auto (Bld) [#/Vol] on 11-18-2023 Platelets (Bld) [#/Vol] 281 10 3/uL 150-450 [facility] RBC Auto (Bld) [#/Vol]on RBC (Bld) [#/Vol] 5.07 10 6/uL 4.20-5.40 [facility] Serum or plasma albumin/glob ulin mass ratioon 11-18-2023 Albumin/Globulin [Mass ratio] 1.0 {ratio} [facility] Serum or plasma anion gap de terminationon 11-18-2023 Anion gap [Moles/Vol] 14.1 mmol/L Fi [facility] Serum or plasma total choles terol/high density lipoprotein (HDL) cholesterol mass yoselyn 11-18-2023 Cholesterol.total/Linda sterol in HDL [Mass ratio] 2.9 {ratio} [facility] Comment on above: 3.3 - 4.4 LOW RISK4. 4 - 7.1 AVERAGE RISK7.1 - 11.0 MODERATE RISK>11.0 HIGH RISK Physician Referralon 024 Physician Referral [id number]#1.00TIFF Normal [facility] XR LSPINE 2_3 VIEWSon 2022 XR [...] MAKEDA QUIROZ Date: 2022-12-06 11:24 Normal [facility] LITHIUMon 11-27-2022 [place] (Eskalith(R)), Serum 0.8 mmol/L Normal 0.5-1.2 [facility] Comment on above: Result Comment: A co ncentration of 0.5-0.8 mmol/L is advised for long-term use; concentrations of up to 1.2 mmol/L may be necessary during acute treatment. Detection Limit = 0.1 <0.1 indicates None Detected Performed By: #### L ITHIUM ####[facility] [address] [address]Dr. Laurel Buckner CREATININEon 11-26-2022 Creatinine [Mass/Vol] 0.97 mg/dL Normal 0.55-1.02 [facility] Comment on above: Performed By: #### T SH, CREA #### [facility] [address] [address] [address] Laruel Buckner EGFR-AF [place]IZ[place] >60 Normal >=60 [facility] Comment on above: Performed By: #### T SH, CREA #### [facility] [address] [address] [address] Laurel Buckner EGFR-NON AF [place]IZEN [place] 59 mL/min/1.73m2 Critically low >=60 [facility] Comment on above: Performed By: #### T SH, CREA #### [facility] [address] [address] [address] Laurel Buckner TSHon 11-26-2022 TSH 1.616 uIU/mL Normal 0.358-3.74 0 [facility] Comment on above: Performed By: #### T SH, CREA #### [facility] [address] [address] [address] Laurel Buckner MG MAMM SCREEN 3D TOMY CADon 11-14-2022 MG MAMM SCREEN 3D TOMY CAD Patient: RAIN SWEENEY Exam Date: 11/14/2022 : 1960 Gender:F Ordering : DR SEB BARRY M.D. Admission #: [id number] Family : Order #: [id number] CLICK HERE TO VIEW EXAM RADIOLOGY REPORT [...] colon cancer at age 62. LOCATION: [facility] BREAST COMPOSITION: Heterogeneously dense,which may obscure [...] MD on 11/14/2022 at 12:03 Normal [facility] LITHIUMon 05-16-2022 [place] (Eskalith(R)), Serum 0.8 mmol/L Normal 0.5-1.2 [facility] Comment on above: Result Comment: Plas ma concentration of 0.5 - 0.8 mmol/L are advised for long-term use; concentrations of up to 1.2 mmol/L may be necessary during acute treatment. Detection Limit = 0.1 <0.1 indicates None Detected Performed By: #### L ITHIUM #### [facility] [address] [place] [address] Dr. Laurel Buckner CBC AUTO DIFFon 05-15-2022 BASO # 0.1 103/ul Normal 0.0-0.1 [facility] Comment on above: Performed By: #### C BC #### [facility] [address] [place] [address] Dr. Laurel Buckner Basophils/100 WBC (Bld) 1.0 % Normal 0.2-2.0 [facility] Comment on above: Performed By: #### C BC #### [facility] [address] [place] [address] Dr. Laurel Buckner EO # 0.4 103/ul Normal 0.0-0.7 [facility] Comment on above: Performed By: #### C BC #### [facility] [address] [place] [address] Dr. Laurel Buckner Eosinophils/100 WBC (Bld) 5.3 % Normal 0.9-7.0 [facility] Comment on above: Performed By: #### C BC #### [facility] [address] [place] [address] Dr. Laurel Buckner Erythrocyte distribution width (RBC) [Ratio] 13.8 % Normal 11.0-15.0 [facility] Comment on above: Performed By: #### C BC #### [facility] [address] [place] [address] Dr. Laurel Buckner Hematocrit (Bld) [Volume fraction] 46.8 % Normal 36.0-48.0 [facility] Comment on above: Performed By: #### C BC #### [facility] [address] [place] [address] Dr. Laurel Buckner Hemoglobin (Bld) [Mass/Vol] 14.8 g/dL Normal 12.0-16.0 [facility] Comment on above: Performed By: #### C BC #### [facility] [address] [place] [address] Dr. Laurel Buckner IG # 0.07 10e3/ul Critically high 0.00-0.03 [facility] Comment on above: Performed By: #### C BC #### [facility] [address] [place] [address] Dr. Laurel Buckner IG % 1.0 % Critically high 0.0-0.5 [facility] Comment on above: Performed By: #### C BC #### [facility] [address] [place] [address] Dr. Laurel Buckner LYMPH # 1.7 103/ul Normal 1.2-3.8 [facility] Comment on above: Performed By: #### C BC #### [facility] [address] [place] [address] Dr. Laurel Buckner Lymphocytes/100 WBC (Bld) 25.4 % Normal 20.5-60.0 [facility] Comment on above: Performed By: #### C BC #### [facility] [address] [place] [address] Dr. Laurel Buckner MANUAL DIFF REQ NO Normal [facility] Comment on above: Performed By: #### C BC #### [facility] [address] [place] [address] Dr. Laurel Buckner MCH (RBC) [Entitic mass] 29.5 pg Normal 26.7-34.0 [facility] Comment on above: Performed By: #### C BC #### [facility] [address] [place] [address] Dr. Laurel Buckner MCHC (RBC) [Mass/Vol] 31.6 g/dL Normal 29.9-35.2 [facility] Comment on above: Performed By: #### C BC #### [facility] [address] [place] [address] Dr. Laurel Buckner MCV (RBC) [Entitic vol] 93.4 fL Normal 81.0-99.0 [facility] Comment on above: Performed By: #### C BC #### [facility] [address] [place] [address] Dr. Laurel Buckner MONO # 0.6 103/ul Normal 0.3-0.8 [facility] Comment on above: Performed By: #### C BC #### [facility] [address] [place] [address] Dr. Laurel Buckner Monocytes/100 WBC (Bld) 8.4 % Normal 1.7-12.0 [facility] Comment on above: Performed By: #### C BC #### [facility] [address] [place] [address] Dr. Laurel Buckner NEUT # 4.0 103/ul Normal 1.4-6.5 [facility] Comment on above: Performed By: #### C BC #### [facility] [address] [place] [address] Dr. Laurel Buckner Neutrophils/100 WBC (Bld) 58.9 % Normal 43.0-75.0 [facility] Comment on above: Performed By: #### C BC #### [facility] [address] [place] [address] Dr. Laurel Buckner Platelet mean volume (Bld) [Entitic vol] 10.1 fL Normal 9.5-13.5 [facility] Comment on above: Performed By: #### C BC #### [facility] [address] [place] [address] Dr. Laurel Buckner PLT 279 103/ul Normal 150-450 [facility] Comment on above: Result Comment: smea r reviewed Performed By: #### C BC #### [facility] [address] [place] [address] Dr. Laurel Buckner RBC 5.01 106/ul Normal 4.20-5.40 [facility] Comment on above: Performed By: #### C BC #### [facility] [address] [place] [address] Dr. Laurel Buckner WBC 6.8 103/ul Normal 4.0-11.0 [facility] Comment on above: Performed By: #### C BC #### [facility] [address] [place] [address] Dr. Laurel Buckner GLYCOHEMOGLOBIN A1Con 2021 ADA RECOMMENDATION SEE BELOW Normal [facility] Comment on above: Result Comment: ADA RECOMMENDED LIMIT 4.0 - 6.0 ADA THERAPEUTIC TARGET < 7.0 ACTION SUGGESTED > 7.0 Performed By: #### A 1C #### [facility] [address] [place] [address] Dr. Laurel Buckner Glucose [Mass/Vol] 97 mg/dL Normal [facility] Comment on above: Performed By: #### A 1C #### [facility] [address] [place] [address] Dr. Laurel Buckner HbA1c (Bld) [Mass fraction] 5.0 % Normal 4.5-6.2 [facility] Comment on above: Performed By: #### A 1C #### [facility] [address] [place] [address] Dr. Laurel Buckner LIPID PROFILEon 05-15-2022 CHOL-HDL RATIO NORM SEE BELOW Normal [facility] Comment on above: Result Comment: 3.3 - 4.4 LOW RISK 4.4 - 7.1 AVERAGE RISK 7.1 - 11.0 MODERATE RISK >11.0 HIGH RISK Performed By: #### L IPID, TSH, CMP #### [facility] [address] [address] [address] Laurel Buckner Cholesterol [Mass/Vol] 279 mg/dL Critically high <=200 [facility] Comment on above: Performed By: #### L IPID, TSH, CMP #### [facility] [address] [address] [address] Laurel Buckner Cholesterol in HDL [Mass/Vol] 76 mg/dL Critically high 40-60 [facility] Comment on above: Performed By: #### L IPID, TSH, CMP #### [facility] [address] [address] [address] Laurel Buckner Cholesterol in LDL [Mass/Vol] 162.8 mg/dL Normal [facility] Comment on above: Performed By: #### L IPID, TSH, CMP #### [facility] [address] [place] [address] Dr. Laurel Buckner Cholesterol.total/Linda sterol in HDL [Mass ratio] 3.7 {ratio} Normal [facility] Comment on above: Performed By: #### L IPID, TSH, CMP #### [facility] [address] [place] [address] Dr. Laurel Buckner HDL NORMAL > or = 60 mg/dl - LO W CARDIOVASCULAR RISK <40 mg/dl - HIGH CARDIOVASCULAR RISK Normal [facility] Comment on above: Performed By: #### L IPID, TSH, CMP #### [facility] [address] [address] [address] Laurel Buckner LDL CALC NORMAL SEE BELOW Normal [facility] Comment on above: Result Comment: <100 mg/dl OPTIMAL 100 - 129 mg/dl NEAR OR ABOVE OPTIMAL 130 - 159 mg/dl BORDERLINE HIGH 160 - 189 mg/dl HIGH >190 mg/dl VERY HIGH Performed By: #### L IPID, TSH, CMP #### [facility] [address] [place] [address] Dr. Laurel Buckner Triglyceride [Mass/Vol] 201 mg/dL Critically high <=150 [facility] Comment on above: Performed By: #### L IPID, TSH, CMP #### [facility] [address] [address] [address] Laurel Buckner VLDL CALC 40.2 mg/dL Normal [facility] Comment on above: Performed By: #### L IPID, TSH, CMP #### [facility] [address] [address] [address] Laurel Buckner PROF 14(COMP METB)on 022 Albumin [Mass/Vol] 3.6 g/dL Normal 3.4-5.0 [facility] Comment on above: Performed By: #### L IPID, TSH, CMP #### [facility] [address] [address] [address] Laurel Buckner Albumin/Globulin [Mass ratio] 0.9 {ratio} Normal [facility] Comment on above: Performed By: #### L IPID, TSH, CMP #### [facility] [address] [place] [address] Dr. Laurel Buckner ALP [Catalytic activity/Vol] 110 U/L Normal 46-116 [facility] Comment on above: Performed By: #### L IPID, TSH, CMP #### [facility] [address] [place] [address] Dr. Laurel Buckner ALT [Catalytic activity/Vol] 22 U/L Normal 14-59 [facility] Comment on above: Performed By: #### L IPID, TSH, CMP #### [facility] [address] [address] [address] Laurel Buckner Anion gap [Moles/Vol] 10.8 mmol/L Normal [facility] Comment on above: Performed By: #### L IPID, TSH, CMP #### [facility] [address] [address] [address] Laurel Buckner AST [Catalytic activity/Vol] 11 U/L Critically low 15-37 [facility] Comment on above: Performed By: #### L IPID, TSH, CMP #### [facility] [address] [address] [address] Laurel Buckner Bilirubin [Mass/Vol] 0.3 mg/dL Normal 0.2-1.0 [facility] Comment on above: Performed By: #### L IPID, TSH, CMP #### [facility] [address] [place] [address] Dr. Laurel Buckner Calcium [Mass/Vol] 9.1 mg/dL Normal 8.5-10.1 [facility] Comment on above: Performed By: #### L IPID, TSH, CMP #### [facility] [address] [place] [address] Dr. Laurel Buckner Chloride [Moles/Vol] 103 mmol/L Normal 98-107 [facility] Comment on above: Performed By: #### L IPID, TSH, CMP #### [facility] [address] [place] [address] Dr. Laurel Buckner CO2 [Moles/Vol] 27.9 mmol/L Normal 21.0-32.0 [facility] Comment on above: Performed By: #### L IPID, TSH, CMP #### [facility] [address] [place] [address] Dr. Laurel Buckner Creatinine [Mass/Vol] 0.96 mg/dL Normal 0.55-1.02 [facility] Comment on above: Performed By: #### L IPID, TSH, CMP #### [facility] [address] [place] [address] Dr. Laurel Buckner EGFR-AF CITIZ[place] >60 Normal >=60 [facility] Comment on above: Performed By: #### L IPID, TSH, CMP #### [facility] [address] [place] [address] Dr. Laurel Buckner EGFR-NON AF CITIZEN OF [place] 59 mL/min/1.73m2 Critically low >=60 [facility] Comment on above: Performed By: #### L IPID, TSH, CMP #### [facility] [address] [place] [address] Dr. Laurel Buckner Globulin (S) [Mass/Vol] 3.9 g/dL Normal T [facility] Comment on above: Performed By: #### L IPID, TSH, CMP #### [facility] [address] [place] [address] Dr. Laurel Buckner Glucose [Mass/Vol] 90 mg/dL Normal 74-106 [facility] Comment on above: Performed By: #### L IPID, TSH, CMP #### [facility] [address] [place] [address] Dr. Laurel Buckner Potassium [Moles/Vol] 3.7 mmol/L Normal 3.5-5.1 [facility] Comment on above: Performed By: #### L IPID, TSH, CMP #### [facility] [address] [place] [address] Dr. Laurel Buckner Protein [Mass/Vol] 7.5 g/dL Normal 6.4-8.2 [facility] Comment on above: Performed By: #### L IPID, TSH, CMP #### [facility] [address] [place] [address] Dr. Laurel Buckner Sodium [Moles/Vol] 138 mmol/L Normal 136-145 [facility] Comment on above: Performed By: #### L IPID, TSH, CMP #### [facility] [address] [place] [address] Dr. Laurel Buckner Urea nitrogen [Mass/Vol] 16.0 mg/dL Normal 7.0-18.0 [facility] Comment on above: Performed By: #### L IPID, TSH, CMP #### [facility] [address] [place] [address] Dr. Laurel Buckner Urea nitrogen/Creatinine [Mass ratio] 16.7 mg/mg Normal [facility] Comment on above: Performed By: #### L IPID, TSH, CMP #### [facility] [address] [place] [address] Dr. Laurel Buckner TSHon 05-15-2022 TSH 3.094 uIU/mL Normal 0.358-3.74 0 [facility] Comment on above: Performed By: #### L IPID, TSH, CMP #### [facility] [address] [place] [address] Dr. Laurel Buckner Vital Signs Date Time Vital Sign Value Performing Clinician Facility 02-08-2025 09:47-0400 Body height 170.2 cm Scooby Fitzgerald DO Work Phone: [facility] 02-08-2025 09:47-0400 Body mass index (BMI) [Ratio] 26.63 kg/m2 Scooby Fitzgerald DO Work Phone: [facility] 02-08-2025 09:47-0400 Body weight 77.11 kg Scooby Fitzgerald DO Work Phone: [facility] 01-18-2025 10:05-0400 Body height 172.7 cm Song Covarrubias MD Work Phone: [facility] 01-18-2025 10:05-0400 Body mass index (BMI) [Ratio] 27.37 kg/m2 Song Covarrubias MD Work Phone: [facility] 01-18-2025 10:05-0400 Body weight 81.65 kg Song Covarrubias MD Work Phone: [facility] 01-18-2025 10:05-0400 Heart rate 103 /min Song Covarrubias MD Work Phone: [facility] 01-18-2025 10:05-0400 Respiratory rate 20 /min Song Covarrubias MD Work Phone: [facility] 01-18-2025 10:05-0400 SaO2% (BldA) [Mass fraction] 98 % Song Covarrubias MD Work Phone: [facility] 12-14-2024 10:14-0400 Body height 170.2 cm Song Covarrubias MD Work Phone: [facility] 12-14-2024 10:14-0400 Body mass index (BMI) [Ratio] 28.04 kg/m2 Song Covarrubias MD Work Phone: [facility] 12-14-2024 10:14-0400 Body weight 81.19 kg Song Covarrubias MD Work Phone: [facility] 12-14-2024 10:14-0400 Diastolic blood pressure 88 mm[Hg] Song Covarrubias MD Work Phone: [facility] 12-14-2024 10:14-0400 Heart rate 102 /min Song Covarrubias MD Work Phone: [facility] 12-14-2024 10:14-0400 Respiratory rate 20 /min Song Covarrubias MD Work Phone: [facility] 12-14-2024 10:14-0400 SaO2% (BldA) [Mass fraction] 97 % Song Covarrubias MD Work Phone: [facility] 12-14-2024 10:14-0400 Systolic blood pressure 144 mm[Hg] Song Covarrubias MD Work Phone: [facility] 08-18-2024 10:22-0500 Diastolic blood pressure 85 mm[Hg] PHYSICIAN NO [facility] 08-18-2024 10:22-0500 Heart rate 107 /min PHYSICIAN NO [facility] 08-18-2024 10:22-0500 Respiratory rate 16 /min PHYSICIAN NO [facility] 08-18-2024 10:22-0500 SaO2% (BldA) [Mass fraction] 96 % PHYSICIAN NO [facility] 08-18-2024 10:22-0500 Systolic blood pressure 149 mm[Hg] PHYSICIAN NO [facility] 08-18-2024 10:07-0500 Body temperature 97.3 [degF] PHYSICIAN NO [facility] 08-18-2024 08:07-0500 Body height 170.18 cm PHYSICIAN NO [facility] 08-18-2024 08:07-0500 Body weight 82 kg PHYSICIAN NO [facility] 08-06-2024 09:28-0500 Blood Pressure Location HAMILTON MALONE [facility] 08-06-2024 09:28-0500 Diastolic blood pressure 48 mm[Hg] HAMILTON MALNOE [facility] 08-06-2024 09:28-0500 Heart rate 88 /min HAMILTON NKANSAH-AMANKRA [facility] 08-06-2024 09:28-0500 Respiratory rate 17 /min HAMILTON NKANSAH-AMANKRA [facility] 08-06-2024 09:28-0500 Systolic blood pressure 132 mm[Hg] HAMILTON NKANSAH-AMANKRA [facility] 07-30-2024 09:56-0500 Diastolic blood pressure 93 mm[Hg] HAMILTON NKANSAH-AMANKRA [facility] 07-30-2024 09:56-0500 Heart rate 105 /min HAMILTON NKANSAH-AMANKRA [facility] 07-30-2024 09:56-0500 Respiratory rate 16 /min HAMILTON NKANSAH-AMANKRA [facility] 07-30-2024 09:56-0500 Systolic blood pressure 143 mm[Hg] HAMILTON NKANSAH-AMANKRA [facility] 07-27-2024 08:41-0500 Heart rate 119 /min Ronobir CROW [facility] 07-27-2024 08:41-0500 SaO2% (BldA) [Mass fraction] 96 % Ronobir CROW [facility] 07-27-2024 08:29-0500 Body temperature 98.06 [degF] Ronobir CROW [facility] 07-27-2024 08:29-0500 Diastolic blood pressure 100 mm[Hg] Ronobir CROW [facility] 07-27-2024 08:29-0500 Mean blood pressure 122 mm[Hg] Ronobir CROW [facility] 07-27-2024 08:29-0500 Systolic blood pressure 166 mm[Hg] Ronobir CROW [facility] 07-27-2024 08:11-0500 Heart rate 131 /min Ronobir CROW [facility] 07-27-2024 08:11-0500 SaO2% (BldA) [Mass fraction] 95 % Ronobir CROW [facility] 07-27-2024 08:11-0500 Respiratory rate 16 /min Ronobir CROW [facility] 07-27-2024 08:10-0500 Diastolic blood pressure 80 mm[Hg] Ronobir CROW [facility] 07-27-2024 08:10-0500 Mean blood pressure 109 mm[Hg] Ronobir CROW [facility] 07-27-2024 08:10-0500 Systolic blood pressure 167 mm[Hg] Ronobir CROW [facility] 07-27-2024 08:10-0500 Body temperature 97.88 [degF] Ronobir CORW [facility] 07-27-2024 06:06-0500 Hourly Rounding Ronobir CROW [facility] 07-27-2024 06:06-0500 Promise to Return Ronobir CROW [facility] 07-27-2024 05:13-0500 Hourly Rounding Ronobir CROW [facility] 07-27-2024 05:13-0500 Promise to Return Ronobir CROW [facility] 07-27-2024 04:08-0500 Hourly Rounding Ronobir CROW [facility] 07-27-2024 04:08-0500 Promise to Return Ronobir CROW [facility] 07-27-2024 02:23-0500 Blood Pressure Location Ronobir CROW [facility] 07-27-2024 02:23-0500 Body temperature 97.7 [degF] Ronobir CROW [facility] 07-27-2024 02:23-0500 Diastolic blood pressure 83 mm[Hg] Ronobir CROW [facility] 07-27-2024 02:23-0500 Heart rate 83 /min Ronobir CROW [facility] 07-27-2024 02:23-0500 Mean blood pressure 106 mm[Hg] Ronobir CROW [facility] 07-27-2024 02:23-0500 SaO2% (BldA) [Mass fraction] 97 % Ronobir RCOW [facility] 07-27-2024 02:23-0500 Systolic blood pressure 153 mm[Hg] Ronobir CROW [facility] 07-26-2024 20:00-0500 Body temperature 98.06 [degF] Ronobir CROW [facility] 07-26-2024 16:18-0500 Respiratory rate 16 /min Ronobir CROW [facility] 07-26-2024 16:18-0500 Body temperature 97.7 [degF] Ronobir CROW [facility] 07-26-2024 16:18-0500 Mean blood pressure 97 mm[Hg] Ronobir CROW [facility] 07-26-2024 01:00-0500 Blood Pressure Location Ronobir CROW [facility] 07-26-2024 01:00-0500 Body temperature 97.16 [degF] Ronobir CROW [facility] 07-26-2024 01:00-0500 Mean blood pressure 91 mm[Hg] Ronobir CROW [facility] 07-25-2024 08:00-0500 Heart rate 98 /min Ronobir CROW [facility] 07-25-2024 08:00-0500 Mean blood pressure 90 mm[Hg] Ronobir CROW [facility] 07-22-2024 12:28-0500 Heart rate 99 /min HAMILTON NKANSAH-AMANKRA [facility] 07-22-2024 12:28-0500 SaO2% (BldA) [Mass fraction] 98 % HAMILTON NKANSAH-AMANKRA [facility] 07-22-2024 12:28-0500 Diastolic blood pressure 77 mm[Hg] HAMILTON NKANSAH-AMANKRA [facility] 07-22-2024 12:28-0500 Mean blood pressure 93 mm[Hg] HAMILTON NKANSAH-AMANKRA [facility] 07-22-2024 12:28-0500 Systolic blood pressure 125 mm[Hg] HAMILTON NKANSAH-AMANKRA [facility] 07-22-2024 12:28-0500 Respiratory rate 16 /min HAMILTON NKANSAH-AMANKRA [facility] 07-22-2024 10:10-0500 Blood Pressure Location HAMILTON NKANSAH-AMANKRA [facility] 07-22-2024 10:10-0500 Body temperature 97.7 [degF] HAMILTON NKANSAH-AMANKRA [facility] 07-22-2024 10:10-0500 Diastolic blood pressure 82 mm[Hg] HAMILTON NKANSAH-AMANKRA [facility] 07-22-2024 10:10-0500 Heart rate 107 /min HAMILTON NKANSAH-AMANKRA [facility] 07-22-2024 10:10-0500 Mean blood pressure 99 mm[Hg] HAMILTON NKANSAH-AMANKRA [facility] 07-22-2024 10:10-0500 Respiratory rate 16 /min HAMILTON NKANSAH-AMANKRA [facility] 07-22-2024 10:10-0500 SaO2% (BldA) [Mass fraction] 96 % HAMILTON NKANSAH-AMANKRA [facility] 07-22-2024 10:10-0500 Systolic blood pressure 134 mm[Hg] HAMILTON NKANSAH-AMANKRA [facility] 07-22-2024 09:58-0500 Body temperature 97.88 [degF] HAMILTON NKANSAH-AMANKRA [facility] 07-22-2024 09:58-0500 Diastolic blood pressure 68 mm[Hg] HAMILTON NKANSAH-AMANKRA [facility] 07-22-2024 09:58-0500 Heart rate 111 /min HAMILTON NKANSAH-AMANKRA [facility] 07-22-2024 09:58-0500 Mean blood pressure 87 mm[Hg] HAMILTON NKANSAH-AMANKRA [facility] 07-22-2024 09:58-0500 Respiratory rate 20 /min HAMILTON NKANSAH-AMANKRA [facility] 07-22-2024 09:58-0500 SaO2% (BldA) [Mass fraction] 94 % HAMILTON NKANSAH-AMANKRA [facility] 07-22-2024 09:58-0500 Systolic blood pressure 125 mm[Hg] HAMILTON NKANSAH-AMANKRA [facility] 07-22-2024 09:40-0500 Mean blood pressure 110 mm[Hg] HAMILTON NKANSAH-AMANKRA [facility] 07-22-2024 09:40-0500 Respiratory rate 24 /min HAMILTON NKANSAH-AMANKRA [facility] 07-22-2024 09:25-0500 Respiratory rate 11 /min HAMILTON NKANSAH-AMANKRA [facility] 07-22-2024 09:08-0500 Blood Pressure Location HAMILTON NKANSAH-AMANKRA [facility] 07-22-2024 09:08-0500 Body temperature 97.52 [degF] HAMILTON NKANSAH-AMANKRA [facility] 07-22-2024 06:19-0500 Heart rate 98 /min HAMILTON NKANSAH-AMANKRA [facility] 07-22-2024 06:19-0500 Respiratory rate 18 /min HAMILTON NKANSAH-AMANKRA [facility] 07-22-2024 06:18-0500 Mean blood pressure 105 mm[Hg] HAMILTON NKANSAH-AMANKRA [facility] 07-05-2024 10:04-0500 Blood Pressure Location HAMILTON NKANSAH-AMANKRA [facility] 07-05-2024 10:04-0500 Diastolic blood pressure 90 mm[Hg] HAMILTON NKANSAH-AMANKRA [facility] 07-05-2024 10:04-0500 Heart rate 109 /min HAMILTON NKANSAH-AMANKRA [facility] 07-05-2024 10:04-0500 Systolic blood pressure 155 mm[Hg] AHMILTON NKANSAH-AMANKRA [facility] 06-24-2024 10:02-0500 Heart rate 89 /min HAMILTON NKANSAH-AMANKRA [facility] 06-24-2024 10:02-0500 SaO2% (BldA) [Mass fraction] 97 % HAMILTON NKANSAH-AMANKRA [facility] 06-24-2024 10:01-0500 Blood Pressure Location HAMILTON NKANSAH-AMANKRA [facility] 06-24-2024 10:01-0500 Diastolic blood pressure 88 mm[Hg] HAMILTON NKANSAH-AMANKRA [facility] 06-24-2024 10:01-0500 Mean blood pressure 104 mm[Hg] HAMILTON NKANSAH-AMANKRA [facility] 06-24-2024 10:01-0500 Systolic blood pressure 137 mm[Hg] HAMILTON NKANSAH-AMANKRA [facility] 06-24-2024 10:01-0500 Respiratory rate 16 /min HAMILTON NKANSAH-AMANKRA [facility] 06-24-2024 09:21-0500 Heart rate 95 /min HAMILTON NKANSAH-AMANKRA [facility] 06-24-2024 09:21-0500 SaO2% (BldA) [Mass fraction] 95 % HAMILTON NKANSAH-AMANKRA [facility] 06-24-2024 09:20-0500 Blood Pressure Location HAMILTON NKANSAH-AMANKRA [facility] 06-24-2024 09:20-0500 Diastolic blood pressure 88 mm[Hg] HAMILTON NKANSAH-AMANKRA [facility] 06-24-2024 09:20-0500 Mean blood pressure 103 mm[Hg] HAMILTON NKANSAH-AMANKRA [facility] 06-24-2024 09:20-0500 Systolic blood pressure 134 mm[Hg] HAMILTON NKANSAH-AMANKRA [facility] 06-24-2024 09:20-0500 Respiratory rate 18 /min HAMILTON NKANSAH-AMANKRA [facility] 06-24-2024 09:13-0500 Body temperature 98.06 [degF] HAMILTON NKANSAH-AMANKRA [facility] 06-24-2024 09:13-0500 Mean blood pressure 92 mm[Hg] HAMILTON NKANSAH-AMANKRA [facility] 06-24-2024 09:13-0500 Respiratory rate 16 /min HAMILTON NKANSAH-AMANKRA [facility] 06-24-2024 08:48-0500 Body temperature 97.7 [degF] HAMILTON NKANSAH-AMANKRA [facility] 06-24-2024 08:48-0500 Mean blood pressure 86 mm[Hg] HAMILTON NKANSAH-AMANKRA [facility] 06-24-2024 07:00-0500 Heart rate 100 /min HAMILTON NKANSAH-AMANKRA [facility] 06-24-2024 06:56-0500 Body temperature 98.24 [degF] HAMILTON NKANSAH-AMANKRA [facility] 06-21-2024 10:32-0500 Body height 170.18 cm Adamaris Liz [employer] Work Phone: [facility] 06-21-2024 10:32-0500 Body mass index (BMI) [Ratio] 28.8 kg/m2 Adamaris Liz [employer] Work Phone: [facility] 06-21-2024 10:32-0500 Body weight 83.46 kg Adamaris Liz [employer] Work Phone: [facility] 06-21-2024 10:32-0500 Diastolic blood pressure 85 mm[Hg] Adamaris Liz [employer] Work Phone: [facility] 06-21-2024 10:32-0500 Heart rate 102 /min Adamaris Liz [employer] Work Phone: [facility] 06-21-2024 10:32-0500 Systolic blood pressure 133 mm[Hg] Adamaris Liz [employer] Work Phone: [facility] 06-18-2024 15:48-0500 Diastolic blood pressure 89 mm[Hg] HAMILTON NKANSAH-AMANKRA [facility] 06-18-2024 15:48-0500 Heart rate 87 /min HAMILTON NKANSAH-AMANKRA [facility] 06-18-2024 15:48-0500 Mean blood pressure 106 mm[Hg] HAMILTON NKANSAH-AMANKRA [facility] 06-18-2024 15:48-0500 Systolic blood pressure 139 mm[Hg] HAMILTON NKANSAH-AMANKRA [facility] 06-18-2024 15:48-0500 Heart rate 59 /min HAMILTON NKANSAH-AMANKRA [facility] 06-18-2024 15:48-0500 SaO2% (BldA) [Mass fraction] 99 % HAMILTON NKANSAH-AMANKRA [facility] 06-18-2024 15:47-0500 Diastolic blood pressure 72 mm[Hg] HAMILTON NKANSAH-AMANKRA [facility] 06-18-2024 15:47-0500 Mean blood pressure 90 mm[Hg] HAMILTON NKANSAH-AMANKRA [facility] 06-18-2024 15:47-0500 Systolic blood pressure 126 mm[Hg] HAMILTON NKANSAH-AMANKRA [facility] 06-11-2024 09:42-0400 Blood Pressure Location HAMILTON NKANSAH-AMANKRA [facility] 06-11-2024 09:42-0400 Diastolic blood pressure 88 mm[Hg] HAMILTON NKANSAH-AMANKRA [facility] 06-11-2024 09:42-0400 Heart rate 103 /min HAMILTON NKANSAH-AMANKRA [facility] 06-11-2024 09:42-0400 Respiratory rate 20 /min HAMILTON NKANSAH-AMANKRA [facility] 06-11-2024 09:42-0400 Systolic blood pressure 149 mm[Hg] HAMILTON NKANSAH-AMANKRA [facility] 05-25-2024 10:30-0400 Blood Pressure Location KARON MARK [facility] 05-25-2024 10:30-0400 Diastolic blood pressure 74 mm[Hg] KARON MARK [facility] 05-25-2024 10:30-0400 Heart rate 104 /min KARON MARK [facility] 05-25-2024 10:30-0400 Systolic blood pressure 138 mm[Hg] KARON MARK [facility] 05-19-2024 10:20-0400 Body height 170.18 cm PHYSICIAN [facility] 05-19-2024 10:20-0400 Body mass index (BMI) [Ratio] 27.3 kg/m2 PHYSICIAN NO [facility] 05-19-2024 10:20-0400 Body temperature 97.8 [degF] PHYSICIAN NO [facility] 05-19-2024 10:20-0400 Body weight 79.37 kg PHYSICIAN NO [facility] 05-19-2024 10:20-0400 Diastolic blood pressure 95 mm[Hg] PHYSICIAN NO [facility] 05-19-2024 10:20-0400 Heart rate 111 /min PHYSICIAN NO [facility] 05-19-2024 10:20-0400 Respiratory rate 18 /min PHYSICIAN NO [facility] 05-19-2024 10:20-0400 SaO2% (BldA) [Mass fraction] 97 % PHYSICIAN NO [facility] 05-19-2024 10:20-0400 Systolic blood pressure 147 mm[Hg] PHYSICIAN NO [facility] 04-21-2024 09:04-0400 Body mass index (BMI) [Ratio] 27.27 kg/m2 Faiza BURTON Work Phone: [facility] 04-21-2024 09:04-0400 Body weight 78.98 kg Faiza BURTON Work Phone: [facility] 04-21-2024 09:04-0400 Diastolic blood pressure 70 mm[Hg] Faiza BURTON Work Phone: [facility] 04-21-2024 09:04-0400 Systolic blood pressure 120 mm[Hg] Faiza BURTON Work Phone: [facility] 01-30-2024 09:36-0400 Body height 170.18 cm PHYSICIAN NO [facility] 01-30-2024 09:36-0400 Body mass index (BMI) [Ratio] 26.7 kg/m2 PHYSICIAN NO [facility] 01-30-2024 09:36-0400 Body weight 77.56 kg PHYSICIAN NO [facility] 01-30-2024 09:36-0400 Diastolic blood pressure 80 mm[Hg] PHYSICIAN NO [facility] 01-30-2024 09:36-0400 Heart rate 108 /min PHYSICIAN NO [facility] 01-30-2024 09:36-0400 Systolic blood pressure 114 mm[Hg] PHYSICIAN NO [facility] 11-19-2023 13:56-0400 Blood Pressure Location Dieter NILL [facility] [place] 11-19-2023 13:56-0400 Diastolic blood pressure 92 mm[Hg] Dieter NILL [facility] [place] 11-19-2023 13:56-0400 Heart rate 72 /min Dieter NILL [facility] [place] 11-19-2023 13:56-0400 Respiratory rate 16 /min Dieter NILL [facility] [place] 11-19-2023 13:56-0400 Systolic blood pressure 132 mm[Hg] Dieter NILL [facility] [place] 11-12-2023 10:20-0400 Body height 170.18 cm PHYSICIAN NO [facility] 11-12-2023 10:20-0400 Body mass index (BMI) [Ratio] 28 kg/m2 PHYSICIAN NO [facility] 11-12-2023 10:20-0400 Body weight 81.36 kg PHYSICIAN NO [facility] 11-12-2023 10:20-0400 Diastolic blood pressure 77 mm[Hg] PHYSICIAN NO [facility] 11-12-2023 10:20-0400 Heart rate 124 /min PHYSICIAN NO [facility] 11-12-2023 10:20-0400 Systolic blood pressure 124 mm[Hg] PHYSICIAN NO [facility] 10-22-2023 09:23-0400 Body height 170.18 cm PHYSICIAN NO [facility] 10-22-2023 09:23-0400 Body mass index (BMI) [Ratio] 29.1 kg/m2 PHYSICIAN NO [facility] 10-22-2023 09:23-0400 Body weight 84.36 kg PHYSICIAN NO [facility] 10-22-2023 09:23-0400 Diastolic blood pressure 85 mm[Hg] PHYSICIAN NO [facility] 10-22-2023 09:23-0400 Heart rate 106 /min PHYSICIAN NO [facility] 10-22-2023 09:23-0400 Systolic blood pressure 140 mm[Hg] PHYSICIAN NO [facility] 05-29-2023 14:00-0400 Body height 170.18 cm Helio Barry Other [employer] [facility] [employer] Other 05-29-2023 14:00-0400 Body mass index (BMI) [Ratio] 29.44 kg/m2 Helio Barry Other [employer] Other 05-29-2023 14:00-0400 Body weight 85.28 kg Helio Barry Other [employer] Other 05-05-2023 08:30-0400 Body height 170.18 cm Seb Barry Other [employer] Other 05-05-2023 08:30-0400 Body mass index (BMI) [Ratio] 29.44 kg/m2 Seb Barry Other [employer] Other 05-05-2023 08:30-0400 Body weight 85.28 kg Seb Barry Other [employer] Other 05-05-2023 08:30-0400 Diastolic blood pressure 82 mm[Hg] Seb Barry Other [employer] Other 05-05-2023 08:30-0400 Systolic blood pressure 128 mm[Hg] Seb Barry Other [employer] Other 04-01-2023 10:00-0400 Body height 170.18 cm Seb Barry Other [employer] Other 04-01-2023 10:00-0400 Body mass index (BMI) [Ratio] 29.13 kg/m2 Seb Barry Other [employer] Other 04-01-2023 10:00-0400 Body weight 84.37 kg Seb Barry Other [employer] Other 04-01-2023 10:00-0400 Diastolic blood pressure 86 mm[Hg] Seb Barry Other [employer] Other 04-01-2023 10:00-0400 Systolic blood pressure 148 mm[Hg] Seb Barry Other [employer] Other Encounters Encounter Date Encounter Type Care Provider Facility Start: 02-17-2025 End: 02-17-2025 Subsequent hospital visit by physician Caren Shoemaker PT [facility] Comment on above: Arrived Start: 02-17-2025 ambulatory Renea Lynnf in Hospital Start: 02-08-2025 End: 02-08-2025 Bamboo flowsheet Scooby Fitzgerald DO Work Phone: [facility] [place] Start: 02-08-2025 End: 02-08-2025 Bamboo flowsheet Scooby Fitzgerald DO Work Phone: [facility] [place] Start: 02-08-2025 End: 02-08-2025 Office outpatient new 45 minutes Scooby Fitzgerald DO Work Phone: [facility] [place] Comment on above: Hyperthyroidism (Helena haydee Dx); Multinodular goiter Start: 02-08-2025 End: 02-08-2025 ambulatory SCOOBY FITZGERALD Not Available Start: 01-18-2025 End: 01-18-2025 Bamboo flowsheet Song Covarrubias MD Work Phone: [facility] Start: 01-18-2025 End: 01-18-2025 Bamboo flowsheet Song Covarrubias MD Work Phone: [facility] Start: 01-18-2025 End: 01-18-2025 Office outpatient visit 40 minutes Song Covarrubias MD Work Phone: [facility] Comment on above: Hyperthyroidism (CMS /HCC) (Primary Dx); Long-term current use of lithium; Hair loss; Palpitation; Multinodular goiter (CMS/HCC) Start: 01-18-2025 End: 01-18-2025 ambulatory SONG COVARRUBIAS Not Available Start: 01-13-2025 End: 01-13-2025 Patient encounter procedure PHYSICIAN NO [facility] [place] Work Phone: Start: 01-13-2025 End: 01-13-2025 ambulatory PHYSICIAN NO [facility] Work Phone: Start: 12-16-2024 Non-patient / Non-visit PHYSICIAN NO [facility] Work Phone: Start: 12-15-2024 ambulatory Pan Sanders Facility:[facility] Start: 12-15-2024 Registered Recurring PHYSICIAN BALDOMERO [facility] Start: 12-14-2024 End: 12-14-2024 Bamboo flowsheet Song Covarrubias MD Work Phone: [facility] Start: 12-14-2024 End: 12-14-2024 Bamboo flowsheet Song Covarrubias MD Work Phone: [facility] Start: 12-14-2024 End: 12-14-2024 Office outpatient new 45 minutes Song Covarrubias MD Work Phone: [facility] Comment on above: Hyperthyroidism (CMS /HCC) (Primary Dx); Long-term current use of lithium; Hair loss; Palpitation Start: 12-14-2024 End: 12-14-2024 ambulatory SONG COVARRUBIAS Not Available Start: 11-18-2024 Non-patient / Non-visit PHYSICIAN NO [facility] Work Phone: Start: 10-22-2024 End: 12-10-2024 Pre-admission assessment HAMILTON NKANSAH-AMANKRA [facility] Start: 10-22-2024 End: 10-22-2024 ambulatory HAMILTON NKANSAH-AMANKRA [place] Start: 08-26-2024 ambulatory HAMILTON NKANSAH-AMANKRA Facility:[facility] [place] Start: 08-18-2024 End: 08-18-2024 Admission to same day surgery center PHYSICIAN NO [facility] [place] Start: 08-18-2024 End: 08-18-2024 ambulatory PHYSICIAN NO [facility] Work Phone: Start: 08-18-2024 End: 08-18-2024 ambulatory HAMILTON NKANSAH-AMANKRA Facility:[id number] Start: 08-13-2024 End: 08-13-2024 ambulatory HAMILTON NKANSAH-AMANKRA Facility:[facility] [place] Start: 08-13-2024 End: 08-13-2024 Patient encounter procedure HAMILTON NKANSAH-AMANKRA [facility] Start: 08-10-2024 Registered Recurring PHYSICIAN BALDOMERO [facility] Start: 08-06-2024 End: 08-06-2024 ambulatory HAMILTON NKANSAH-AMANKRA Facility:[facility] [place] Start: 08-06-2024 End: 08-06-2024 Patient encounter procedure HAMILTON NKANSAH-AMANKRA [facility] [place] Start: 07-30-2024 End: 07-30-2024 ambulatory HAMILTON NKANSAH-AMANKRA Facility:[facility] [place] Start: 07-30-2024 End: 07-30-2024 Patient encounter procedure HAMILTON MAHARAJ-AMAUGUSTRA [facility] [place] Start: 07-27-2024 Non-patient / Non-visit PHYSICIAN NO [facility] Physician [facility] Work Phone: Start: 07-25-2024 End: 07-27-2024 Evaluation and management of inpatient DO Aditya MARIA Facility:[facility] Start: 07-25-2024 Non-patient / Non-visit PHYSICIAN NO [facility] Work Phone: Start: 07-24-2024 Non-patient / Non-visit PHYSICIAN NO [facility] Work Phone: Start: 07-23-2024 End: 07-23-2024 ambulatory HAMILTONSHANE VALERAAH-AMANKRA Facility:[facility] [place] Start: 07-23-2024 End: 07-23-2024 Patient encounter procedure HAMILTON MAHARAJ-LAMARRA [facility] [place] Start: 07-22-2024 End: 07-22-2024 Admission to same day surgery center HAMILTON GILLIANJackieNICOLAAUGUST [facility] Start: 07-22-2024 End: 07-22-2024 ambulatory HAMILTON NKANSAH-AMANKRA Facility:[facility] Start: 07-05-2024 End: 07-07-2024 Pre-admission assessment HAMILTONSHANE VALERAAH-AMANKRA [facility] Start: 07-05-2024 End: 07-05-2024 ambulatory HAMILTON SIMIANSAH-AMANKRA Facility: [facility] Start: 07-05-2024 End: 07-05-2024 Patient encounter procedure HAMILTON NKANSAH-AMANKRA [facility] Start: 06-24-2024 Patient encounter status PHYSICIAN N O [facility] Start: 06-24-2024 End: 06-24-2024 Admission to same day surgery center HAMILTON BELCHERANSAH-AMANKRA [facility] Start: 06-24-2024 End: 06-24-2024 ambulatory HAMILTON NKANSAH-AMANKRA Facility:[facility] Start: 06-21-2024 End: 06-21-2024 ambulatory NON STAFF [facility] Work Phone: Start: 06-21-2024 End: 06-21-2024 Encounter for other preprocedural examination PHYSICIAN BALDOMERO [facility] Start: 06-21-2024 End: 06-21-2024 Patient encounter procedure Adamaris Hill [employer] Work Phone: [facility] Work Phone: Start: 06-18-2024 End: 06-18-2024 ambulatory HAMILTON NKANSAH-AMANKRA Facility:[facility] Start: 06-18-2024 End: 06-18-2024 Patient encounter procedure HAMILTON NKANSAH-AMANKRA [facility] Start: 06-14-2024 Registered Recurring Adamaris Vora ob [employer] Work Phone: [facility] Start: 06-11-2024 End: 06-11-2024 ambulatory HAMILTON NKANSAH-AMANKRA Facility:[facility] [place] Start: 06-11-2024 End: 06-11-2024 Patient encounter procedure HAMILTON NKANSAH-AMANKRA [facility] [place] Start: 06-04-2024 End: 06-04-2024 Departed Referred Adamaris Hill APRN Work Phone: [facility] [place] Work Phone: Start: 06-04-2024 End: 06-04-2024 ambulatory PHYSICIAN NO [facility] Work Phone: Start: 06-04-2024 End: 06-04-2024 Patient encounter procedure PHYSICIAN NO [facility] Work Phone: Start: 05-26-2024 Non-patient / Non-visit PHYSICIAN NO [facility] Work Phone: Start: 05-25-2024 End: 05-25-2024 ambulatory KARON FLORES Facility:[facility] Start: 05-25-2024 End: 05-25-2024 Patient encounter procedure KARON MOISERY [facility] Start: 05-19-2024 End: 05-19-2024 Departed Referred PHYSICIAN NO [facility] [place] Work Phone: Start: 05-19-2024 End: 05-19-2024 ambulatory PHYSICIAN NO [facility] Work Phone: Start: 05-19-2024 End: 05-19-2024 Patient encounter procedure PHYSICIAN NO [facility] [place] Work Phone: Start: 05-04-2024 End: 05-05-2024 Clinisync Result Encounter Faiza BURTON Work Phone: [facility] External Department Unsolicited Start: 05-04-2024 End: 05-05-2024 Clinisync Result Encounter Faiza BURTON Work Phone: [facility] External [facility] Unsolicited Start: 05-04-2024 Non-patient / Non-visit PHYSICIAN NO [facility] Physician [facility] Work Phone: Start: 05-04-2024 Registered Recurring PHYSICIAN BALDOMERO TRUJILLO [facility] Start: 04-21-2024 End: 04-21-2024 Bamboo [...] Start: 04-21-2024 Non-patient / Non-visit PHYSICIAN NO [facility] Physician [facility] Work Phone: Start: 04-21-2024 End: [...] Start: 04-09-2024 Non-patient / Non-visit PHYSICIAN NO [facility] Physician [facility] Work Phone: Start: 02-26-2024 End: 02-26-2024 ambulatory Beryl Henderson Facility: [place] Start: 02-26-2024 End: 02-26-2024 Patient encounter procedure Beryl Henderson [facility] [place] Start: 01-30-2024 End: 01-30-2024 ambulatory PHYSICIAN NO [facility] Work Phone: Start: 01-30-2024 End: 01-30-2024 Patient encounter procedure PHYSICIAN [facility] Work Phone: Start: 01-14-2024 End: 01-14-2024 ambulatory Dieter R NILL [facility] Start: 01-14-2024 End: 01-14-2024 Patient encounter procedure Dieter R NILL [facility] [place] Start: 01-13-2024 ambulatory Dieter R NILL Facility :[facility] Start: 12-31-2023 End: 12-31-2023 ambulatory PHYSICIAN NO [facility] Work Phone: Start: 12-31-2023 End: 12-31-2023 Departed Referred PHYSICIAN NO [facility] Start: 12-31-2023 End: 12-31-2023 ambulatory Dieter R NILL Facility:[id number] Start: 12-09-2023 Registered Recurring PHYSICIAN NO [facility] Start: 11-19-2023 End: 11-19-2023 ambulatory Dieter R NILL Facility:[facility] Start: 11-19-2023 End: 11-19-2023 Patient encounter procedure Dieter R NILL General Surgery Nill/Said [place] Start: 11-18-2023 Non-patient / Non-visit PHYSICIAN NO [facility] Work Phone: Start: 11-17-2023 ambulatory Dieter NILL Facility:[facility] Start: 11-14-2023 ambulatory Dieter NILL Facility:[facility] Start: 11-12-2023 End: 11-12-2023 ambulatory PHYSICIAN NO [facility] Work Phone: Start: 11-12-2023 End: 11-12-2023 Patient encounter procedure PHYSICIAN NO [facility] Work Phone: Start: 11-04-2023 Registered Recurring PHYSICIAN NO RONNIE [facility] Start: 10-22-2023 Patient encounter status PHYSICIAN N O [facility] Start: 10-22-2023 End: 10-22-2023 Encounter for general adult medical examination without abnormal findings PHYSICIAN NO [facility] Start: 10-22-2023 End: 10-22-2023 Patient encounter procedure PHYSICIAN NO [facility] Work Phone: Start: 09-09-2023 Registered Recurring PHYSICIAN NO RONNIE [facility] Start: 05-30-2023 End: 05-30-2023 ambulatory Helio Barry Other [employer] Other Start: 05-30-2023 Telephone encounter Helio Barry [facility] Manager Wound Start: 05-29-2023 Office outpatient ne w 30 minutes Helio Barry [facility] Start: 05-29-2023 End: 05-29-2023 ambulatory MD Seb Barry Work Phone: [facility] Work Phone: Start: 05-29-2023 End: 05-29-2023 Patient encounter procedure MD Seb Barry Work Phone: [facility] Work Phone: Start: 05-16-2023 End: 05-16-2023 ambulatory Seb Barry Other [employer] Other Start: 05-16-2023 Telephone encounter Seb Barry [facility] Start: 05-05-2023 End: 05-05-2023 ambulatory Seb Barry Other [employer] Other Start: 05-05-2023 Office outpatient vi sit 15 minutes Seb Barry [facility] Start: 04-07-2023 End: 04-07-2023 ambulatory Seb Barry Other [employer] Other Start: 04-07-2023 Telephone encounter Seb Barry [facility] Start: 04-01-2023 End: 04-01-2023 ambulatory Seb Barry Other [employer] Other Start: 04-01-2023 Office outpatient vi sit 15 minutes Seb Barry [facility] Start: 12-27-2022 ambulatory GOLDY GLOVER Facility: [facility] Start: 12-23-2022 End: 12-23-2022 ambulatory Goldy Glover Other [employer] Other Start: 12-23-2022 Office outpatient ne w 45 minutes Goldy Glover [facility] [place] Start: 12-06-2022 Telephone encounter Seb Barry [facility] Start: 12-06-2022 End: 12-07-[address] SEB BARRY [employer] Other Start: 11-26-2022 End: 11-27-2022 ambulatory REGULO HINDS Facility:[facility] Start: 11-14-2022 End: 11-15-[address] SEB BARRY Facility:[facility] Start: 05-17-2022 Encounter for genera l adult medical examination without abnormal findings DR SEB BARRY [facility] Start: 05-15-2022 End: 05-16-[address] SEB BARRY Facility:[facility] Start: 05-15-2022 End: 05-16-2022 Encounter for general adult medical examination without abnormal findings DR SEB BARRY Facility:[facility] Start: 05-14-2022 Adult health examination Fidelina Barry Other [employer] Other Start: 04-18-2022 End: 04-18-2022 ambulatory Paresh Calixto Other [employer] Other Start: 04-18-2022 Telephone encounter Paresh Marily [facility] Start: 02-27-2022 End: 02-27-2022 ambulatory Paresh Marily Other [employer] Other Start: 02-27-2022 Telephone encounter Paresh Marily [facility] Manager Wound Start: 02-05-2022 ambulatory PARESH MARILY Facility:[facility] Start: 12-13-2021 End: 12-13-2021 ambulatory Paresh Marily Other [employer] Other Start: 12-13-2021 Telephone encounter Paresh Marily [facility] Start: 09-19-2021 End: 09-19-2021 ambulatory Paresh Marily Other [employer] Other Start: 09-19-2021 Telephone encounter Paresh Marily [facility] Start: 09-05-2021 End: 09-05-2021 ambulatory Paresh Marily Other [employer] Other Start: 09-05-2021 Telephone encounter Paresh Marily [facility] Procedures Date Procedure Procedure Detail Performing Clinician Start: 01-13-2025 US scan of thyroid PHYS ICIAN NO FAMILY Start: 08-18-2024 Cystoscopy PHYSICIAN NO FAMILY Start: 07-22-2024 Cystoscopy HAMILTON NK SANDEEP-AMANKRA Start: 06-24-2024 Cystoscopy HAMILTON NK SANDEEP-AMANKRA Start: 06-04-2024 Urine culture Adamaris Gr ob [employer] Work Phone: Start: 05-19-2024 Bacteria identified in Urine by Culture PHYSICIAN NO FAMILY Start: 05-19-2024 Urine culture Adamaris Gr ob [employer] Work Phone: Start: 05-04-2024 HIV AB/P24 AG [...] FLORES History of bilateral breast implants Dieter Omicia History of nasal sin us surgery [employer] Ligation of fallopia n tube [employer] Screening for malign ant neoplasm of breast Seb Barry Other Screening for malign ant neoplasm of colon Seb Barry Other Stapedectomy Dieter Omicia Plan of Treatment Date Care Activity Detail Author Start: 2037 Respiratory Syncytial Virus (RSV) or age 60 yrs+ (1 - 1-dose 75+ series) Respiratory Syncytial Virus (RSV) or age 60 yrs+ (1 - 1-dose 75+ series) [facility] Start: 02-20-2032 DTaP/Tdap/Td vaccine (2 - Td or Tdap) DTaP/Tdap/Td vaccine (2 - Td or Tdap) [facility] Start: 04-21-2029 Screening for malignant neoplasm of cervix [facility] Start: 04-25-2025 End: 04-25-2025 Patient encounter procedure 04/25/2025 9:00 AM EDT Office Visit [facility] [address] [place] [address] Faiza Almendarez PA [address] [place] [address] [facility] Start: 04-19-2025 End: 04-19-2025 Patient encounter procedure 04/19/2025 10:20 AM EDT Office Visit [facility] [address] [place] [address] Song Covarrubias MD [address] [place] [address] [facility] Start: 04-11-2025 Influenza vaccination [facility] Start: 03-21-2025 End: 03-21-2025 Patient encounter procedure 03/21/2025 9:00 AM EDT Appointment [facility] Physical Therapy [address] [place], [place] [id number] Alla Tran PTA [facility] Physical Therapy Start: 03-14-2025 End: 03-14-2025 Patient encounter procedure 03/14/2025 9:00 AM EDT Appointment [facility] Physical Therapy [address] [place], [place] [phone] Alla Tran BUSINESS OBJECTS ARCHITECT [facility] Physical Therapy Start: 03-11-2025 Influenza vaccination Flu vaccine (#1) [facility] Start: 03-09-2025 End: 03-09-2025 Patient encounter procedure 03/09/2025 11:15 AM EDT Appointment [facility] Physical Therapy [address] [place], [place] [phone] Alla Tran BUSINESS OBJECTS ARCHITECT [facility] Physical Therapy Start: 02-28-2025 End: 02-28-2025 Patient encounter procedure 02/28/2025 11:15 AM EDT Appointment [facility] Physical Therapy [address] [place] [id number] Alla Tran BUSINESS OBJECTS ARCHITECT [facility] Physical Therapy Start: 02-21-2025 End: 02-21-2025 Patient encounter procedure 02/21/2025 3:45 PM EDT Appointment [facility] Physical Therapy [address] [place] [id number] Alla Tran PTA [facility] Physical Therapy Start: 02-08-2025 End: 02-08-2025 Patient encounter procedure 02/08/2025 10:00 AM EDT Office Visit [facility] [place] [address] [place] [id number] Scooby Fitzgerald, [address] [place] [address] Multinodular goiter [facility] [place] Comment on above: Multinodular goiter Start: 01-18-2025 End: 01-18-2026 Hepatic function 2000 panel - Serum or Plasma Hepatic function panel Lab Routine Hyperthyroidism (CMS/HCC) Expected: 01/18/2025 (Approximate), Expires: 01/18/[address] [facility] Comment on above: Expected: 01/18/2025 (Approximate), Expi res: 01/18/2026 Start: 01-18-2025 End: 01-18-2026 Thyrotropin [Units/volume] in Serum or Plasma TSH Lab Routine Hyperthyroidism (CMS/HCC) Expected: 01/18/2025 (Approximate), Expires: 01/18/[address] [facility] Comment on above: Expected: 01/18/2025 (Approximate), Expi res: 01/18/2026 Start: 01-18-2025 End: 01-18-2026 Thyroxine (T4) free [Mass/volume] in Serum or Plasma T4, free Lab Routine Hyperthyroidism (CMS/HCC) Expected: 01/18/2025 (Approximate), Expires: 01/18/[address] [facility] Comment on above: Expected: 01/18/2025 (Approximate), Expi res: 01/18/2026 Start: 01-18-2025 End: 01-18-2026 Triiodothyronine (T3) Free [Mass/volume] in Serum or Plasma T3, free Lab Routine Hyperthyroidism (CMS/HCC) Expected: 01/18/2025 (Approximate), Expires: 01/18/[address] [facility] Work Phone: Comment on above: Expected: 01/18/2025 (Approximate), Expi res: 01/18/2026 Start: 01-18-2025 End: 01-18-2025 Patient encounter procedure 01/18/2025 10:00 AM EDT Office Visit [facility] [address] [place] [address] Song Covarrubias MD [address] [place] [address] Arrived [facility] Comment on above: Arrived Start: 01-13-2025 Radionuclide thyroid imaging [facility] Start: 12-14-2024 End: 12-14-2025 Hepatic function 2000 panel - Serum or Plasma Hepatic function panel Lab Routine Hyperthyroidism (CMS/HCC) Expected: 12/14/2024 (Approximate), Expires: 12/14/2025 [facility] Comment on above: Expected: 12/14/2024 (Approximate), Expi res: 12/14/2025 Start: 12-14-2024 End: 12-14-2025 NM Thyroid gland Uptake Nuclear Medicine thyroid uptake and scan Imaging Routine Hyperthyroidism (CMS/HCC) Expected: 12/14/2024, Expires: 12/14/[address] [facility] Comment on above: Expected: 12/14/2024, Expires: Start: 12-14-2024 End: 12-14-2025 Thyroglobulin Antibody Thyroglobulin Antibody Lab Routine Hyperthyroidism (CMS/HCC) Expected: 12/14/2024 (Approximate), Expires: 12/14/[address] [facility] Work Phone: Comment on above: Expected: 12/14/2024 (Approximate), Expi res: 12/14/2025 Start: 12-14-2024 End: 12-14-2025 Thyroid peroxidase antibody Thyroid peroxidase antibody Lab Routine Hyperthyroidism (CMS/HCC) Expected: 12/14/2024 (Approximate), Expires: 12/14/[address] [facility] Comment on above: Expected: 12/14/2024 (Approximate), Expi res: 12/14/2025 Start: 12-14-2024 End: 12-14-2025 Thyrotropin [Units/volume] in Serum or Plasma TSH Lab Routine Hyperthyroidism ([facility]/HCC) Expected: 12/14/2024 (Approximate), Expires: 12/14/[address] [facility] Comment on above: Expected: 12/14/2024 (Approximate), Expi res: 12/14/2025 Start: 12-14-2024 End: 12-14-2025 Thyrotropin receptor antibody Thyrotropin receptor antibody Lab Routine Hyperthyroidism ([facility]/HCC) Expected: 12/14/2024 (Approximate), Expires: 12/14/[address] [facility] Comment on above: Expected: 12/14/2024 (Approximate), Expi res: 12/14/2025 Start: 12-14-2024 End: 12-14-2025 Thyroxine (T4) free [Mass/volume] in Serum or Plasma T4, free Lab Routine Hyperthyroidism ([facility]/HCC) Expected: 12/14/2024 (Approximate), Expires: 12/14/[address] [facility] Comment on above: Expected: 12/14/2024 (Approximate), Expi res: 12/14/2025 Start: 12-14-2024 End: 12-14-2025 Triiodothyronine (T3) Free [Mass/volume] in Serum or Plasma T3, free Lab Routine Hyperthyroidism ([facility]/HCC) Expected: 12/14/2024 (Approximate), Expires: 12/14/[address] [facility] Comment on above: Expected: 12/14/2024 (Approximate), Expi res: 12/14/2025 Start: 12-14-2024 End: 12-14-2025 US Thyroid gland US thyroid Imaging Routine Hyperthyroidism ([facility]/HCC) Expected: 12/14/2024, Expires: 12/14/[address] [facility] Comment on above: Expected: 12/14/2024, Expires: Start: 12-14-2024 End: 12-14-2024 Patient encounter procedure 12/14/2024 10:20 AM EDT Office Visit [facility] [address] [place] [address] Song Covarrubias MD [address] [place] [address] Arrived [facility] Comment on above: Arrived Start: 08-18-2024 End: 08-18-2024 [facility] Start: 06-04-2024 Urine culture [facility] Start: 05-19-2024 Bacteria identified in Urine by Culture Urine Culture [facility] Start: 05-19-2024 Urine culture [facility] Start: 04-21-2024 End: 04-21-2025 DXA Skeletal system Views for bone density DEXA bone density Imaging Routine Postmenopausal state Expected: 04/21/2024 (Approximate), Expires: 04/21/[address] [facility] Comment on above: Expected: 04/21/2024 (Approximate), Expi res: 04/21/2025 Start: 04-21-2024 End: 06-21-2025 MG Breast - bilateral Screening Bilateral screening mammogram Imaging Routine Breast cancer screening by mammogram Expected: 04/21/2024, Expires: 06/21/[address] [facility] Comment on above: Expected: 04/21/2024, Expires: Start: 04-11-2024 COVID-19 Vaccine ( season) COVID-19 Vaccine ( season) [facility] Start: 04-11-2024 Influenza vaccination Influenza Vaccine (#1) [facility] Start: 11-12-2023 Patient referral [facility] Work Phone: Start: 09-02-2020 Screening for malignant neoplasm of breast Mammogram [facility] Start: 2012 Pneumococcal 50+ years Vaccine (1 of 1 - PCV) Pneumococcal 50+ years Vaccine (1 of 1 - PCV) [facility] Start: 2012 Shingles vaccine (1 of 2) Shingles vaccine (1 of 2) [facility] Start: 2007 [facility] Start: 2002 Lipid panel Lipids [facility] Start: 2002 Screening for malignant neoplasm of breast Breast cancer [facility] Start: 1992 Screening for malignant neoplasm of cervix [facility] Start: 1983 Screening for malignant neoplasm of cervix Pap Smear [facility] Start: 1980 Hepatitis C screening Hepatitis C screen [facility] Start: 1977 HIV screening HIV screen [facility] Start: 1974 Depression Screen Depression Screen [facility] Start: 1962 Screening for malignant neoplasm of colon [facility] CHLAMYDIA TRACHOMATI S (GENITO/STI) CHLAMYDIA TRACHOMATIS (GENITO/STI) Lab Routine Exposure to STD Vaginal discharge Ordered: 04/21/[address] [facility] Comment on above: Ordered: 04/21/2024 Hepatitis B virus guy rface Ag [Presence] in Serum or Plasma by Immunoassay Hepatitis B surface antigen Lab Routine Sexually transmitted disease exposure Ordered: 04/21/[address] [facility] Comment on above: Ordered: 04/21/2024 HIV-1/HIV-2 antigen/antibody combination immunoassay HIV-1 and HIV-2 antibodies Lab Routine Sexually transmitted disease exposure Ordered: 04/21/[address] [facility] Comment on above: Ordered: 04/21/2024 MG Breast - bilatera l Diagnostic [facility] Neisseria gonorrhoea e DNA [Presence] in Unspecified specimen by LILLY with probe detection Neisseria gonorrhea DNA probe, direct Lab Routine Exposure to STD Vaginal discharge Ordered: 04/21/[address] [facility] Comment on above: Ordered: 04/21/2024 Patient Education [facility] Work Phone: Patient referral [facility] Work Phone: Reagin Ab [Presence] in Serum by RPR RPR Lab Routine Sexually transmitted disease exposure Ordered: 04/21/[address] [facility] Comment on above: Ordered: 04/21/2024 SURESWAB(R) ADVANCED VAGINITIS PLUS, TMA SURESWAB(R) ADVANCED VAGINITIS PLUS, TMA Pathology and Cytology Routine Exposure to STD Vaginal discharge Ordered: 04/21/[address] [facility] Work Phone: Comment on above: Ordered: 04/21/2024 THIN PREP TIS PAP AN D HR HPV DNA THIN PREP TIS PAP AND HR HPV DNA Pathology and Cytology Routine Well woman exam with routine gynecological exam Ordered: 04/21/[address] [facility] Comment on above: Ordered: 04/21/2024 Immunizations Immunization Date Immunization Notes Care Provider Ronnie bran 10-12-2022 influenza virus vaccine, unspecified formulation Dieter BUSTOS[facility] [place] 10-12-2022 influenza, injectabl e, quadrivalent, preservative free Seb Barry Other [facility] 02-19-2022 diphtheria, tetanus toxoids and acellular pertussis vaccine, unspecified formulation Seb Barry Other [facility] 02-19-2022 tetanus toxoid, reduced diphtheria toxoid, and acellular pertussis vaccine, adsorbed Seb Barry Other [facility] 08-07-2021 COVID-19 Vaccine Moderna - Documentation Purposes Only Seb Barry Other [facility] 05-28-2021 influenza virus vaccine, split virus (incl. purified surface antigen) Seb Barry Other [employer] Other 05-28-2021 influenza virus vaccine, unspecified formulation PHYSICIAN [facility] 05-28-2021 influenza, injectabl e, quadrivalent, preservative free Scooby Fitzgerald DO Work Phone: [facility] 12-09-2020 COVID-19 Vaccine Moderna - Documentation Purposes Only Seb Barry Other [facility] 11-11-2020 COVID-19 Vaccine Moderna - Documentation Purposes Only Seb Barry Other [facility] Payers Date Payer Category Payer Private Health Insurance [employer] [id number] 2024 Private Health Insurance [id number] 2021 Managed Care HMO (unspecified) [id number] 1960 Unknown [id number] 2.16.840.1.046825.3.57 9.2.593 1962 Unknown [id number] 2.16.840.1.811192.3.57 9.2.593 1962 Unknown [id number] 2.16.840.1.053501.3.57 9.2.593 1962 Unknown [id number] 2.16.840.1.737146.3.57 9.2.593 1962 Unknown [id number] 2.16.840.1.657880.3.57 9.2.593 1962 Unknown [id number] 2.16.840.1.362796.3.57 9.2.593 1962 Unknown [id number] 2.16.840.1.217576.3.57 9.2.727 1962 Unknown [id number] 2.16.840.1.746555.3.57 9.2.727 1962 Unknown [id number] 2.16.840.1.026717.3.57 9.2.727 1962 Unknown [id number] 2.16.840.1.752880.3.57 9.2.727 1962 Unknown [id number] 2.16.840.1.143525.3.57 9.2.727 1962 Unknown [id number] 2.16.840.1.404442.3.57 9.2.727 1962 Unknown [id number] 2.16.840.1.024984.3.57 9.2.72 1962 Unknown [id number] 2.16.840.1.205091.3.57 9.2.727 1962 Unknown [id number] 2.16.840.1.361245.3.57 9.2.72 1962 Unknown [id number] 2.16.840.1.483463.3.57 9.2.72 1962 Unknown [id number] 2.16.840.1.199844.3.57 9.2. 1962 Unknown [id number] 2.16.840.1.113011.3.57 9.2. 1962 Unknown [id number] 2.16.840.1.008026.3.57 9.2. 1962 Unknown [id number] 2.16.840.1.374469.3.57 9.2. 1962 Unknown [id number] 2.16.840.1.687029.3.57 9.2. 1962 Unknown [id number] 2.16.840.1.198826.3.57 9.2. 1962 Unknown [id number] 2.16.840.1.566843.3.57 9.2.72 1962 Unknown [id number] 2.16.840.1.617542.3.57 9.2.72 1962 Unknown [id number] 2.16.840.1.157467.3.57 9.2. 1962 Unknown [id number] 2.16.840.1.693236.3.57 9.2.72 1962 Unknown [id number] 2.16.840.1.810068.3.57 9.2.727 1962 Unknown [id number] 2.16.840.1.863546.3.57 9.2.727 1962 Unknown [id number] 2.16.840.1.879151.3.57 9.2.1259 1962 Unknown [id number] 2.16.840.1.143456.3.57 9.2.1259 1962 Unknown [id number] 2.16.840.1.664505.3.57 9.2.1259 1962 Unknown [id number] 2.16.840.1.388381.3.57 9.2.1259 1959 Private Health Insurance [id number] 2.16.840.1.083630.19 1959 Private Health Insurance [id number] Self-pay [facility] [id number] 2.16.840.1.524745.19 Private Health Insurance [id number] Unknown [id number] 2.16.840.1.231516.3.57 9.2.531 Unknown [id number] 2.16.840.1.009265.3.57 9.2.531 Unknown [id number] 2.16.840.1.309720.3.57 9.2.531 Unknown [id number] 2.16.840.1.826264.3.57 9.2.531 Social History Date Type Detail Facility Start: 02-08-2025 Sex Assigned At F [facility] Start: 1960 Sex Assigned At Female F [facility] Start: 05-29-2023 End: 02-08-2025 Tobacco smoking status NHIS Never smoked tobacco (finding) [facility] Tobacco smoking status Never [facility] [place] Start: 06-21-2024 End: 01-26-2025 Sex Female (finding) [facility] Tobacco smoking stat us NCIS Tobacco smoking consumption unknown [facility] Start: 1960 Sex assigned at Not on file [facility] Sexual Orientation [facility] Start: 01-14-2025 Sex Patient sex un known (finding) [facility] Start: 02-08-2025 Tobacco use and exposure Smokeless tobacco non-user [facility] Start: 02-08-2025 Alcoholic beverage intake Ex-drinker (finding) [facility] Start: 02-08-2025 History of Social function [facility] Medical Equipment Procedure Code Equipment Code [...] HAMILTON 07/22/24 Unknown Other FDA Start: 07-22-2024 Goals Date Patient Goal Desired Activity /State Functional Status Date Assessment Result Facility 08-13-[address] Af ter Exposure to Contagion Telehealth Patient [facility] 08-06-2024 Functional Status N/A [facility] 07-30-2024 Functional Status N/A [facility] 07-25-2024 Functional Status No [facility] 07-06-2024 Functional Status No [facility] 07-05-2024 Functional Status N/A [facility] [place] 06-18-2024 Functional Status No [facility] 06-11-2024 Functional Status N/A [facility] [place] 05-25-2024 Functional Status N/A [facility] [place] 11-19-2023 Functional Status N/A [facility] [place] Clinical Notes 12-13-2021 to 02-08-2025 Scooby Fitzgerald DO - 02/08/2025 10:00 AM Janeth Covarrubias MD - 01/18/2025 10:00 AM Janeth Covarrubias MD - 12/14/2024 10:20 AM EDT Note Date & Type Note Facility 02-08-2025 History of Present illness Narrative Subjective Patient ID: HPI Patient is a 64-year-old female referred by Dr. Covarrubias for toxic multinodular goiter. Patient is a long-time lithium user. She stopped her Tapazole couple of days ago because she says it is making her tired. She is taking 5 mg every other day. Long she has been hyperthyroid. She underwent an ultrasound which revealed a proximally 1.5 cm left inferior thyroid nodule. She subsequently underwent a thyroid uptake scan off the Tapazole and it is reported that nodule is cold. Patient has no personal risk factors for thyroid cancer, no pertinent family history of thyroid disorder. Review of Systems ROS The specialty specific review of systems is noncontributory except for that recorded in the intake questionnaire and /or described in the history of present illness. Objective ENT Physical Exam Physical Exam Constitutional: Appearance: Normal appearance. HENT: Head: Atraumatic. Ears: External ear shows no abnormality Bilateral ear canals are clear Tympanic membranes intact, no evidence of middle ear fluid or other pathology. Nose: External nose appears to be normal Nares patent. Septal deviation to the right No evidence of polyp, mass or pus bilaterally. Oral Cavity: No evidence of trismus Lips appear normal Dental good Tongue of normal size and configuration, floor of mouth mucosa clear. Buccal mucosa shows no evidence of ulceration, mass or other abnormality Hard palate soft palate mucosa intact with no evidence of mass, ulceration or other abnormality Uvula of normal size and configuration Oropharynx: Tonsils small Posterior pharyngeal wall normal Neck: No evidence of palpable abnormality Thyroid without evidence of thyromegaly or mass. No cervical lymphadenopathy present. Cardiovascular: Rate and Rhythm: Normal rate and regular rhythm. . Skin: General: Skin is warm and dry. Neurological: General: No focal deficit present. Mental Status: alert and oriented to person, place, and time. THYROID ULTRASOUND EXAMINATION Indication: Thyroid nodule After informed consent was obtained the patient was placed supine on the examining table. Patient was asked to extend the neck. Topical ultrasound jelly was used. The right lobe of the thyroid gland measures ___ 4.1 ____ cm in greatest dimension. Heterogeneous parenchyma, I do not see any evidence of nodule or mass. I do see what probably is an enlarged superior parathyroid gland. Measures about 1.2 cm. The isthmus is unremarkable. The left lobe of the thyroid gland measures 4.3 cm greatest dimension. In the inferior aspect of the lobe was a hyperechoic well-circumscribed nodule with moderate internal vascularity measuring 1 point 3 9 cm in greatest dimension. Again, I see what appears to be an enlarged superior parathyroid gland measuring about 1.2 cm. There is no adenopathy in the central compartment. There is no appreciable adenopathy in either lateral neck. Assessment/Plan Rain was seen today for thyroid nodule. Diagnoses and all orders for this visit: Hyperthyroidism (Primary) Comments: I explained the patient the Tapazole make he fatigued. She has agreed to go on 2.5 mg daily. She will restart that today. Multinodular goiter Comments: Given the above the left inferior thyroid nodule should be biopsied to rule out malignancy. Orders: - Ambulatory referral to ENT I will see her back to perform the ultrasound guided FNA in the near future documented in this encounter [facility] 01-18-2025 History of Present illness Narrative Rain Carvalho is a 64 y.o. female [...] she attributes to her long-term lithium use. [place] has been part of her treatment regimen [...] Wt 180 lb SpO2 98% BMI 27.37 kg/m BSA 1.98 m Physical Exam Constitutional: Appearance: Normal appearance. She [...] and 24 hours (28%), with cold nodules identified in the left lower lobe. - Ultrasound shows [...] for biopsy of the left-sided nodule measuring 15 mm. Methimazole 5 mg once daily prescribed to normalize thyroid function. Follow-up: The patient will follow up in 3 months. documented in this encounter [facility] 01-13-2025 Radiology Diagnostic study note [facility] [place] [address] [place] [address] Ultrasound Report Signed Patient: Rain Sweeney MR#: [id number] : 1960 Acct:[id number] Age/Sex: 64 / F ADM Date: 5 Loc: Room: Type: [facility] Attending Dr: Song Covarrubias MD Ordering Provider: Song Covarrubias MD Date of Service: 01/13/25 US/US thyroid: E05.90 Copies to: Song Covarrubias MD~ THYROID ULTRASOUND CLINICAL DATA: Low thyroid levels COMPARISON: None The right thyroid lobe measures 5.2 x 1.7 x 2.1 cm . Left lobe measures 5.2 x 1.9 x 2.2 cm. The isthmus measures 3 - 4 mm . The thyroid lobes are heterogeneous and hyperemic. There is an isoechoic nodule at the superior pole on the right with hypoechoic rim measuring 8 x 5 x 8 mm. There is also a nodulewith similar characteristics at the inferior pole on the left that measures 15 x13 x 15 mm. US/US thyroid IMPRESSION: HETEROGENEOUS HYPEREMIC THYROID. BILATERAL THYROID NODULES. Impression dictated by: Denae Kellogg M.D. 01/13/2025 9:02 AM Dictation Location: [place] [address] Tech: Nara Heaton Transcribed By: BRYSON 01/13/25901 Dictated By: Denae Kellogg MD 01/13/25899 Signed By: 01/13/25901 [facility] Work Phone: 12-14-2024 History of Present illness Narrative Rain Carvalho is a 64 y.o. female Seb Barry MD presents with chief complaint of Thyroid Problem (NEW REF/LAB) HPI: History of Present Illness The patient is a 64-year-old female who presents for evaluation of hyperthyroidism. Her TSH level is 0.02. She reports experiencing tremors, which she attributes to her long-term lithium use. [place] has been part of her treatment regimen [...] history of thyroid disease or Graves' disease. Results Labs: TSH level is 0.02. SUBJECTIVE: [...] SYSTEM REVIEWED AND NEGATIVE OBJECTIVE: Visit Vitals BP 144/88 Pulse 102 Resp 20 Ht 5' 7 Wt 179 lb SpO2 97% BMI 28.04 kg/m BSA 1.96 m Physical Exam Constitutional: Appearance: Normal appearance. She [...] orders for this visit: Hyperthyroidism (CMS/HCC) - Thyroglobulin Antibody; Future - Thyrotropin receptor antibody; Future - Thyroid peroxidase antibody; Future - T3, free; Future - T4, free; Future - TSH; Future - Hepatic function panel; Future - Nuclear Medicine thyroid uptake and scan; Future - US thyroid; Future Long-term current use of lithium Hair loss Palpitation Assessment & Plan 1. Hyperthyroidism: - TSH level is significantly low at 0.02. - Physical exam includes palpation of the thyroid and checking for tremors. - Comprehensive thyroid panel including free T4, free T3, and thyroid antibodies will be ordered. A thyroid ultrasound and a thyroid scan and uptake will also be conducted. - Metoprolol therapy to manage heart rate and associated symptoms until the next appointment in 2 weeks but she declines . Methimazole may be considered if hyperthyroidism persists. 2. Diarrhea: - Reports chronic diarrhea, attributing it to lithium use. - No additional physical exam findings or test results provided. - Discussion included the potential side effects of lithium. - No new medications or therapies prescribed for diarrhea. Follow-up: The patient will follow up in 2 weeks. documented in this encounter [facility] 10-22-2024 Note Patient Education Obstetrics and Gynecology Acute [...] these instructions at home: Medicines ??? Take ymio-dcz-nwghmkp and prescription medicines only as told by [...] provider. Document Revised: 04/18/2021 Document Reviewed: 04/18/2021 [employer] Patient Education ? 2023 [employer]. [facility] 08-13-2024 Hospital Discharge instructions Patient Education 08/13/2024 12:17:41 Urethral Vaginal [...] including vitamins, herbs, eye drops, creams, and knin-csb-nvydalq medicines. Any problems you or family members [...] provider tells you to take them. Taking pisw-aho-lygskhy medicines, vitamins, herbs, and supplements. Surgery safety [...] provider. Document Revised: 03/02/2021 Document Reviewed: 03/02/2021 [employer] Patient Education 2023 Patience. Follow Up Care 08/09/2024 13:50:24 With:HAMILTON MALONE MD, URL Address: When: Unknown Comments:sched loosening of MUS [facility] 08-13-2024 Note Patient Education Obstetrics and [...] including vitamins, herbs, eye drops, creams, and aqur-pte-hcywqse medicines. ??? Any problems you or family [...] tells you to take them. ??? Taking xlnv-egw-ekerqoj medicines, vitamins, herbs, and supplements. Surgery safety [...] your bladder w (more content not included)... [facility] 08-06-2024 Hospital Discharge instructions Patient Education 08/06/2024 09:37:06 Acute Urinary [...] Follow these instructions at home: Medicines Take grxi-ttb-lvvtcyk and prescription medicines only as told by [...] provider. Document Revised: 04/18/2021 Document Reviewed: 04/18/2021 [employer] Patient Education 2023 [employer] Follow Up Care 08/02/2024 14:16:42 With:HAMILTON MALONE MD, URL Address: When: Unknown [facility] [place] 08-06-2024 Note Patient Education Obstetrics and Gynecology [...] these instructions at home: Medicines ??? Take wfiv-kpo-mhzzkgy and prescription medicines only as told by [...] provider. Document Revised: 04/18/2021 Document Reviewed: 04/18/2021 [employer] Patient Education ? 2023 [employer]. [facility] 07-30-2024 Hospital Discharge instructions Patient Education 07/30/2024 10:24:20 Acute Urinary [...] Follow these instructions at home: Medicines Take smcu-lnc-zpqczpo and prescription medicines only as told by [...] provider. Document Revised: 04/18/2021 Document Reviewed: 04/18/2021 [employer] Patient Education 2023 Patience. Follow Up Care 07/27/2024 11:12:51 With:GABBY RAMIREZ, HAMILTON, JAYY Address: When:Within 4 Week(s) Comments:w PVR [facility] [place] 07-30-2024 Note Patient Education Obstetrics and Gynecology [...] these instructions at home: Medicines ??? Take rywg-mbr-nznsdzz and prescription medicines only as told by [...] provider. Document Revised: 04/18/2021 Document Reviewed: 04/18/2021 [employer] Patient Education ? 2023 [employer]. [facility] 07-27-2024 Evaluation + Plan note Extrac sheeba [...] HAMILTON MALONE Within 5 to 7 days [facility] [place] [address] [phone] Business (1) Additional Instructions: Call for followup appointment SEB BARRY Within 5 to 7 days [facility] [place] [address]- Business (1) Additional Instructions: Call for followup appointment Sepsis, Diagnosis, Adult Extracted from: Title:AP[facility] Note Author:Eri WALDROP MD Date:1 09/26/23 64-year-old female with hist ory of coronary artery disease, AK, sleep apnea, bipolar disorder, recent mid urethral sling implantation presented from an outside hospital with complaints of lower abdominal pain, pelvic pain, swelling and was admitted with acute kidney injury secondary to acute urinary retention, constipation sepsis secondary to suspected Labial cellulitis.. 1. Abdominal pain (R10.9: Unspecified abdominal pain) Secondary to acute urinary retention present on admission. Resolved. Avoid narcotics. Ordered: [facility] Care/Day Moderate 35 Minutes [id number] 2. Acute kidney injury (N17.9: Acute kidney failure, unspecified) Acute kidney injury secondary to ATN from dehydration and urinary retention/obstruction. Resolved. Status post Lyn catheter placement. Treated with IV fluid. Discontinued IV fluid. Ordered: [facility] Care/Day Moderate 35 Minutes 22504 3. Acute urinary retention (R33.8: Other retention of urine) Secondary to recent surgery. Status post Lyn catheter placement. Ordered: [facility] Care/Day Moderate 35 Minutes 86320 4. Constipation (K59.00: Constipation, unspecified) Postoperatively. Resolved. Avoid narcotics. Continue on Colace. Ordered: [facility] Care/Day Moderate 35 Minutes 09579 5. Sepsis (A41.9: Sepsis, unspecified organism) Suspected to be present at the outside facility patient had leukocytosis, tachycardia and elevated lactic acid presumed secondary to labial cellulitis. Sepsis resolved. Treating with IV cefepime. Discontinued IV fluid. Ordered: [facility] Care/Day Moderate 35 Minutes 15850 6. Obese (E66.9: Obesity, unspecified) Recommend therapeutic lifestyle modification changes. 7. Cystocele with rectocele (N81.10: Cystocele, unspecified) Status post surgery. Urology consult reviewed by me. I appreciate and agree with recommendations. 8. Gastroesophageal reflux disease (K21.9: Gastro-esophageal reflux disease without esophagitis) Supportive care. 9. Bipolar illness (F31.9: Bipolar disorder, unspecified) Continue on lithium. 10. On deep vein thrombosis (DVT) prophylaxis (Z79.899: Other buttermaker (current) drug therapy) Lovenox. Disposition: Home soon pending final urology recommendations. I discussed the diagnosis and plan of care with the patient at the bedside. Moderate level of MDM based on addressing above issues. This documentation was transcribed using voice recognition software. Several attempts were made to ensure accuracy. However inadvertent computerized judge's clerk errors may be present. Eri Waldrop. Hospitalist. [...] (renally dosed). Blood cultures were obtained at [facility] prior to initiation of Cipro and clindamycin. [...] deep vein thrombosis (DVT) prophylaxis (Z79.899: Other buttermaker (current) drug therapy) SCD, enoxaparin Orders: acetaminophen, [...] Metabolic Panel Consult to Urology Lactic Acid [place] Lev Notify Provider Vital Signs Notify Provider [...] coronary artery disease with a history of AK, sleep apnea and radiculopathy. A/P: 1. Sepsis - Secondary to abdominal pain with recent surgery and acute kidney injury - Follow-up cultures obtained at [facility] - Continue IV cefepime; she can received Cipro and clindamycin at [place] [facility] - She did get adequate fluid resuscitation in the outlying emergency room - She is currently on normal saline 150 mL an hour 2. Abdominal pain - Morphine as needed; I did add Percocet per her request - Urology consulted 3. Acute kidney injury - After fluid resuscitation, her creatinine went from 4.0 at [place] [facility] to 1.8 - Check lab in a.m. 4. Bipolar disorder - We did add back her lithium plus her oxcarbazepine and venlafaxine DVT prophylaxis with SCDs and subcu enoxaparin Ulcer prophylaxis with p.o. PPI Nursing is also asking something for anxiety is very anxious on occasion - po ativan added as needed Future Appointments Appointment Date:07/30/2024 02:30:00 PM Scheduled Provider:HAMILTON MALONE MD Location:[facility] Appointment Type:URO Office Visit [facility] 12-17-2024 NoteDischarge Summary Admission and Discharge Information [...] female with history of coronary artery disease, AK, sleep apnea, bipolar disorder, rectocele/cystocele - recent mid urethral sling implantation presented from an outside hospital with complaints of lower abdominal pain, pelvic pain and swelling. She was subsequently admitted to [facility] with acute kidney injury secondary to ATN [...] HAMILTON MALONE Within 5 to 7 days [facility] [place] [address] [phone] Business (1) Additional Instructions: Call for followup appointment SEB BARRY Within 5 to 7 days [address] [place] [address]- Business (1) Additional Instructions: Call for followup appointment Patient Education Sepsis, Diagnosis, AdultFisher [facility]. Washington Pediatric HospitalComment on above:Result Comment: Electronically Signed By: KARLI RAMIREZ, Karolinaanefo\.br\Date and Time Signed: 07/27/24 08:46 [id number] NoteProgress Note-Nurse did a void trial, failed after two outputs. First bladder scan 480, second 841. Called Dr Dorantes, placed Lyn catheter for retention; well tolerated by patient. Great output; see documentation. InformDr Dr Jose E benedict ok with d/c with Lyn catheter to home when medically stable.[facility]12[facility] Hospital Discharge instructions Patient Education 07/26/2024 11:18:35 [...] Follow these instructions at home: Medicines Take pbnk-clt-tjqwbzi and prescription medicines only as told by [...] provider. Document Revised: 06/30/2023 Document Reviewed: 06/30/2023 [employer] Patient Education 2023 Patience. Follow Up Care 07/25/2024 00:44:54 With:HAMILTON MALONE Address: [address] [place] [phone] Business (1) When:5 to 7 days Comments:Call for followup appointment With:SEB BARRY Address: [address] [place] [address] Business (1) When:5 to 7 days Comments:Call for followup appointment [facility] [id number] NoteProgress Note-Nurse Patient voided but forgot to place call light on; will do bladder scan again. Instructed again to place light on TYE to preform. Was on phone with girlfriend; forgot. No complaints at this time. Voided 100ml with one small red clotFisher Mt. Washington Pediatric Hospital12-16-2024 NoteProgress Note-Physician Assessment/Plan 64-year-old female with history of coronary artery disease, AK, sleep apnea, bipolar disorder, recent mid urethral sling implantation presented from an outside hospital with complaints of lower abdominal pain, pelvic pain, swelling and was admitted with acute kidney injury secondary to acute urinary retention, constipation sepsis secondary to suspected Labial cellulitis.. 1. Abdominal pain (R10.9: Unspecified abdominal pain) Secondary to acute urinary retention???present on admission. Resolved. Avoid narcotics. Ordered: [facility] Care/Day Moderate 35 Minutes 69212 2. Acute kidney injury (N17.9: Acute kidney failure, unspecified) Acute kidney injury???secondary to ATN from dehydration and urinary retention/obstruction. Resolved. Status post Lyn catheter placement. Treated with IV fluid. Discontinued IV fluid. Ordered: [facility] Care/Day Moderate 35 Minutes 74091 3. Acute urinary retention (R33.8: Other retention of urine) Secondary to recent surgery. Status post Lyn catheter placement. Ordered: [facility] Care/Day Moderate 35 Minutes 71578 4. Constipation (K59.00: Constipation, unspecified) Postoperatively. Resolved. Avoid narcotics. Continue on Colace. Ordered: [facility] Care/Day Moderate 35 Minutes 24649 5. Sepsis (A41.9: Sepsis, unspecified organism) Suspected to be present at the outside facility???patient had leukocytosis, tachycardia and elevated lactic acid???presumed secondary to labial cellulitis. Sepsis resolved. Treating with IV cefepime. Discontinued IV fluid. Ordered: [facility] Care/Day Moderate 35 Minutes 49843 6. Obese (E66.9: Obesity, unspecified) Recommend therapeutic lifestyle modification changes. 7. Cystocele with rectocele (N81.10: Cystocele, unspecified) Status post surgery. Urology consult reviewed by me. I appreciate and agree with recommendations. 8. Gastroesophageal reflux disease (K21.9: Gastro-esophageal reflux disease without esophagitis) Supportive care. 9. Bipolar illness (F31.9: Bipolar disorder, unspecified) Continue on lithium. 10. On deep vein thrombosis (DVT) prophylaxis (Z79.899: Other buttermaker (current) drug therapy) Lovenox. Disposition: Home soon pending final urology recommendations. I discussed the diagnosis and plan of care with the patient at the bedside. Moderate level of MDM based on addressing above issues. This documentation was transcribed using voice recognition software. Several attempts were made to ensure accuracy. However inadvertent computerized judge's clerk errors may be present. Eri Waldrop. Hospitalist. [...] E12/L Low (07/26/24 06 (more content not included)...[facility] HospitalComment on above:Result Comment: Electronically Signed By: Eri WALDROP MD\.br\Date and Time Signed: 07/26/24 09:36 [id number] NoteProgress Note-Physician Patient: RAIN SWEENEY Age: 64 years Sex: Female : 1960 Associated Diagnoses: None Author: MD Ballesteros Ahmad F Postoperative Information Postoperative disposition: Postoperative disposition: To PACU. Optimetrix number: Optimetrix number [id number]. Anesthetic utilized: General. Health Status Allergies: Allergic [...] Discharge when meets criteria ( To home ).[facility] HospitalComment on above:Result Comment: Electronically Signed By: MD [...] for 5 day(s), 10 tab(s), Refill(s) 0, [facility]/pharmacy #[id number], 174, cm, 07/06/24 9:03:00 EST, Height/Length Dosing, 81.8, kg, 07/06/24 9:03:00 EST, Weight Dosing Colace 50 mg oral capsule: 50 mg = 1 cap(s), Oral, BID, PRN for constipation, # 60 cap(s), Refills(s) 0, [id number], cm, 07/06/24 9:03:00 EST, Height/Length Dosing, 81.8, kg, 07/06/24 9:03:00 EST, Weight Dosing Roxicodone 5 mg Tab: 5 mg = 1 tab(s), Oral, q6hr, PRN for pain, # 5 tab(s), Refills(s) 0, Pharmacy:[facility]/pharmacy #[id number], 174, cm, 07/06/24 9:03:00 EST, Height/Length [...] All Problems Chronic pain / SNOMED CT 060056008 / Confirmed Essential hypertension / SNOMED CT 04978381 / Confirmed Chronic depression / SNOMED CT 324282613 / Confirmed Anxiety / SNOMED CT 14504559 / Confirmed Scoliosis of lumbosacral spine / SNOMED CT 317262160 / Confirmed Hypercholesterolemia / SNOMED CT 81820405 / Confirmed Heart disease / SNOMED CT 61566540 / Confirmed Acne / SNOMED CT 05114851 / Confirmed Overweight / SNOMED CT 456303416 / Confirmed Lesion of right nipple / SNOMED CT 6181063423 / Confirmed BMI 28.0-28.9,adult / SNOMED CT 2196462857 / Confirmed Sleep apnea / SNOMED CT 191216089 / Confirmed Myocardial infarction / SNOMED CT 30308219 / (more content not included)... [facility] on above:Result Comment: Electronically Signed By: MD Favian, Song Macias\.br\Date and Time Signed: 07/25/24 16:11 EST 07-25-2024 NoteConsultation Note Patient: RAIN SWEENEY Age: 64 years Sex: Female : 1960 Associated Diagnoses: None Author: Shad RAMIREZ, Brandon Silva Chief Complaint Pelvic pain History of Present Illness 64-year-old female status-post retropubic mid urethral sling implantation 07/22/[address] Cha MD. Patient presented to [facility] emergency department 07/23/2024 and wasstraight catheterized and discharged home. She then returned to [facility] emergency department last night with urinary retention and severe pelvic discomfort. She was found to have acute kidney injury. A Lyn catheter was placed for 800 mL and she was then transferred to [facility] for continued care. Patient reports a 2-day [...] 5 day(s), 10 tab(s), Refill(s) 0, [id number], 174, cm, 07/06/24 9:03:00 EST, Height/Length Dosing, 81.8, kg, 07/06/24 9:03:00 EST, Weight Dosing Colace 50 mg oral capsule: 50 mg = 1 cap(s), Oral, BID, PRN for constipation, # 60 cap(s), Refills(s) 0, [id number] 174, cm, 07/06/24 9:03:00 EST, Height/Length Dosing, 81.8, kg, 07/06/24 9:03:00 EST, Weight Dosing Roxicodone 5 mg Tab: 5 mg = 1 tab(s), Oral, q6hr, PRN for pain, # 5 tab(s), Refills(s) 0, [id number], cm, 07/06/24 9:03:00 EST, Height/Length Dosing, 81.8, kg, 07/06/24 9:03:00EST, Weight Dosing Documented Medications Documented lithium 300 mg oral tablet: 300 mg = 1 tab(s), Oral, Bedtime, Refills(s) 0 omeprazole 20 mg Cap-DR: 20 mg = 1 cap(s), Oral, Daily, Refills(s) 0 oxcarbazepine 300 mg Tab: 300 mg = 1 tab(s), Oral, BID, Take on (more content not included)...[facility] HospitalComment on above:Result Comment: Electronically Signed By: Shad RAMIREZ, Brandon Silva\.br\Date and Time Signed: 07/25/24 12:33 [id number] NoteHistory and Physical Basic Information Admit Date/Time:07/25/2024 00:42 History of Present Illness Patient is a 64-year-old female with past medical history as noted below comes in with above-statedchief complaint. On 07/22/2024 patient had elective urethral sling, rectocele, and cystocele repairdone at [facility] by GABBY RAMIREZ, HAMILTON. Patient states that on 07/23/2024 she had acute urinary retention at home and went to the [facility] emergency department and was straight cathed. Patient [...] acute kidney injury. Patient was transferred to [facility] because of her recent surgical procedure. When [...] psychiatric thoughts. Brief Hospital course emergency department [facility]???see outside hospital record for fulldetails Patient was given 30 mL/kg of normal saline per sepsis protocol Patient treated with IV Cipro and clindamycin [facility] emergency department labs 07/24/2024 WBC 14.6 hemoglobin [...] (renally dosed). Blood cultures were obtained at [facility] prior to initiation of Cipro and clindamycin. [...] (K21.9: Gastro-esophageal reflux disease witho (more content notincluded)...[facility] HospitalComment on above: Result Comment: Electronically Signed By: Richard DO, Otto M.\.br\Date and Time Signed: 07/25/24 10:58 [id number] NoteHistory and Physical Basic Information Admit Date/Time:07/25/2024 00:42 History of Present Illness Patient is a 64-year-old female with past medical history as noted below comes in with above-statedchief complaint. On 07/22/2024 patient had elective urethral sling, rectocele, and cystocele repairdone at [facility] by HAMILTON MALONE MD. Patient states that on 07/23/2024 she had acute urinary retention at home and went to the [facility] emergency department and was straight cathed. Patient [...] acute kidney injury. Patient was transferred to [facility] because of her recent surgical procedure. When [...] psychiatric thoughts. Brief Hospital course emergency department [facility]???see outside hospital record for fulldetails Patient was given 30 mL/kg of normal saline per sepsis protocol Patient treated with IV Cipro and clindamycin [facility] emergency department labs 07/24/2024 WBC 14.6 hemoglobin [...] (renally dosed). Blood cultures were obtained at [facility] prior to initiation of Cipro and clindamycin. [...] (K21.9: Gastro-esophageal reflux disease witho (more content notincluded)...[facility] HospitalComment on above: Result Comment: Electronically Signed By: Aditya MARIA DO\.br\Date and Time Signed: 07/25/24 04:51 [id number] Hospital Discharge instructions Patient Education 07/22/2024 12:08:32 Lyn Catheter Care, Female-[facility](CUSTOM) Lyn Catheter Care, Female A Lyn catheter [...] underwear to absorb moisture and keep drier tender. 6. Keep the drainage bag below the [...] 07/22/2024 09:45:15 Jose E ARAUZ Discharge Instructions(CUSTOM) [place], [place] Ambrose Dorantes M.D. TVT DISCHARGE INSTRUCTIONS [...] have given you. Surgeon s Phone number: [phone] Surgeon s Written Instructions: 1.During the daytime [...] the opportunity tohave my questions answered. Responsible [employer] SignatureSurgeon SignatureNurse Signature Written: 08-2007/22/2024 09:45:07 Post Op Patient Instructions - FT (CUSTOM) Follow Up Care 07/05/2024 10:24:00 With:HAMILTON MALONE Address: [address] [place] [address] [phone] Business (1) When: Unknown Comments:2 weeks [facility] 12-12-2024 NotePatient Education - Text Lyn Catheter [...] underwear to absorb moisture and keep drier tender. 6. Keep the drainage bag below the [...] up appointments and call with any concerns. [facility] [place] Ambrose Dorantes M.D. TVT DISCHARGE INSTRUCTIONS The following instructions must be followed very closely: 1. If (more content not included)...[facility]11-[facility] Hospital Discharge instructions Patient Education 07/05/2024 10:12:42 [...] including vitamins, herbs, eye drops, creams, and szci-pzx-edibdiz medicines. Any problems you or family members [...] provider tells you to take them. Taking cvqh-wts-tzrnxji medicines, vitamins, herbs, and supplements. Surgery safety [...] provider. Document Revised: 03/02/2021 Document Reviewed: 03/02/2021 [employer] Patient Education 2023 Patience. Follow Up Care 06/24/2024 14:41:56 With:HAMILTON MALONE MD, URL Address: When: Unknown [facility] 11-25-2024 NotePatient Education Obstetrics and Gynecology [...] including vitamins, herbs, eye drops, creams, and bphp-cbe-zwxzmcz medicines. ??? Any problems you or family [...] tells you to take them. ??? Taking fatt-yif-cdkqqvi medicines, vitamins, herbs, and supplements. Surgery safety [...] place until your bladder w (more content notincluded)...[facility]11-14-2024 Note Progress Note-Physician Patient: RAIN SWEENEY Age: 63 years Sex: Female : 1960 Associated Diagnoses: None Author: Valdo Aguilar MD Postoperative Information Postoperative disposition: Postoperative disposition: To PACU. Optimetrix number: Optimetrix number [id number]. Anesthetic utilized: General. Health Status Allergies: Allergic [...] Discharge when meets criteria ( To home ).[facility] HospitalComment on above:Result Comment: Electronically Signed By: Valdo Aguilar MD\.br\Date and Time Signed: 06/24/24 16:53 EST 06-24-2024 Evaluation + Plan noteExtracted from: Title:ANES Post-operative Note---General Author: Valdo Aguilar MD Date:06/24/24 Plan Transfer/Discharge: Transfer/Discharge Discharge when meets criteria ( To home ). Extracted from: Title:ANES Pre-operative Note 2022 Author:Valdo Asencio Date:06/24/24 Plan [place] [employer]esthesiologists (ASA) physical status classification: Class III. Anesthetic Preoperative Plan: Anesthesia General, and TIVA. Future Appointments Appointment Date:07/05/2024 10:00:00 AM Scheduled Provider:HAMILTON MALONE MD Location:[facility] Appointment Type:URO Office Visit [facility] 11-14-2024 Hospital Discharge instructions Patient Education 06/24/2024 [...] Up Care 06/11/2024 10:28:58 With:HAMILTON MALONE Address: [address] [place] [address] [phone] Business (1) When: Unknown Comments:in 2 weeks [facility] [id number] NotePatient Education - Text Cystoscopy ??? Voiding [...] you have a fever over 100 degrees. [facility]11-14-2024 Note Progress Note-Physician Patient: RAIN SWEENEY [...] day(s), # 9 tab(s), Refills(s) 0, Pharmacy: [facility]/pharmacy #[id number], 174, cm, 06/18/24 15:46:00 EST, Height/Length Dosing, [...] list: All Problems Acne / SNOMED CT 45913823 / Confirmed Anxiety / SNOMED CT 83158578 / Confirmed Atrophic vaginitis / SNOMED CT 61329496 / Confirmed Bladder neoplasm of uncertain malignant potential / SNOMED CT 7962219630 / Confirmed BMI 28.0-28.9,adult / SNOMED CT 6596045952 / Confirmed Chronic depression / SNOMED CT 043281884 / Confirmed Chronic pain / SNOMED CT 719920139 / Confirmed Cystocele with rectocele / SNOMED CT 601220333 / Confirmed Essential hypertension / SNOMED CT 31151645 / Confirmed Gastroesophageal reflux disease / SNOMED CT 204049223 / Confirmed Heart disease / SNOMED CT 74221895 / Confirmed Hypercholesterolemia / SNOMED CT 24894866 / Confirmed Lesion of right nipple / SNOMED CT 1045312531 / Confirmed Lumbar radiculopathy / SNOMED CT 601283515 / Confirmed Migraine / SNOMED CT 84122477 / Confirmed Myocardial infarction / SNOMED CT 44988043 / Confirmed Outside Source Comment: Comment on above: 2003 Overweight / SNOMED CT 450324120 / Confirmed Scoliosis of lumbosacral spine / SNOMED CT 260218946 / Confirmed Sleep apnea / SNOMED CT 899243005 / Confirmed Stress incontinence / SNOMED CT 313231530 / Confirmed Urethral caruncle / SNOMED CT 91429832 / Confirmed Resolved: Bipolar disorder / SNOMED CT 77201051 Canceled: Tobacco user / SNOMED CT 597538985, Active Problems (21) Acne Anxiety Atrophic vaginitis Bladder neoplasm of uncertain malignant potential BMI 28.0-28.9,adult Chronic depression Chronic pain Cystocele with rectocele Esse (more content not included)...[facility] HospitalComment on above: Result Comment: Electronically Signed By: Jeff RAMIREZ, Valdo Haq\.br\Date and Time Signed: 06/24/24 08:32 [id number] Hospital Discharge instructions Patient Education 06/11/2024 10:04:23 [...] including vitamins, herbs, eye drops, creams, and xzrj-oil-leyhvlf medicines. Any problems you or family members [...] provider tells you to take them. Taking bosz-umu-dfrgjzy medicines, vitamins, herbs, and supplements. General instructions [...] provider. Document Revised: 03/02/2021 Document Reviewed: 03/02/2021 [employer] Patient Education 2023 Patience. 06/11/2024 09:47:28 Kegel Exercises Kegel Exercises Kegel [...] provider. Document Revised: 12/06/2021 Document Reviewed: 12/06/2021 [employer] Patient Education 2023 Patience. Follow Up Care 05/31/2024 11:14:44 With:GABBY RAMIREZ, HAMILTON, JATINDERL Address: When: Unknown [facility] 11-01-2024 NotePatient Education Obstetrics and Gynecology Kegel [...] provider. Document Revised: 12/06/2021 Document Reviewed: 12/06/2021 [employer] Patient Education ? 2023 [employer] Urology Injection Treatments for Urinary Incontinence [...] including vitamins, herbs, eye drops, creams, and tvfn-hhe-oryawrm medicines. ??? Any problems you or family [...] foods, such as toast or (more contentnot included)...[facility]10-[facility] Evaluation note* Diagnosis Onset Date Resolution Status Admit Date UTI (urinary tract infection) acute June 04, 2024 11:12am Preoperative examination acute June 21, 2024 9:50am [facility] Work Phone: 1(356) 886-630310-18-2024 NotePatient Education Obstetrics and Gynecology Kegel Exercises [...] provider. Document Revised: 12/06/2021 Document Reviewed: 12/06/2021 [employer] Patient Education ? 2023 Patience. Urethral Vaginal Sling A urethral vaginal sling [...] including vitamins, herbs, eye drops, creams, and ytam-hcz-rmnsjra medicines. ? Any problems you or family [...] medicines or blood thinners. (more content not included)...[facility]10-15-20[facility] Hospital Discharge instructions Patient Education 05/25/2024 [...] including vitamins, herbs, eye drops, creams, and wrxs-yzs-ddnzerv medicines. Any problems you or family members [...] provider tells you to take them. Taking eybk-rsk-zofxfxm medicines, vitamins, herbs, and supplements. Surgery safety [...] provider. Document Revised: 03/02/2021 Document Reviewed: 03/02/2021 [employer] Patient Education 2023 Patience. [facility] 10-09-2024 Evaluation note* Diagnosis Onset Date Resolution Status Admit Date UTI (urinary tract infection) acute May 19 10:09am Dysuria noneactive May 19 024 10:09am UTI (urinary tract infection) acute June 04 11:12am [facility] Work Phone: 1(824) 632-593309-11-2024 History of Present illness Narrative* MICHEAL Cifuentes [...] nursing note reviewed. Exam conducted with a logging worker present. Vitals: Estimated body mass index is [...] behalf of: MICHEAL Cifuentes documented in this encounterMercy [facility] St. John'[id number] NoteChief Complaint consultation for abnormal breast US [...] 12/09/2020 Recorded SARS-CoV-2 (COVID-19) mRNA-1273 vaccine 11/11/2020 RecordedDayton Osteopathic HospitalComment on above:Result Comment: Electronically Signed By: BERONICA RAMIREZ, Dieter Bryson\Date and Time Signed: 11/19/23 14:27 [id number] Evaluation note * Encounter Date Diagnosis Assessment [...] may be able to offer some advice. [employer] Other 09-25-2023 Evaluation note* Encounter Date Diagnosis Assessment Notes Treatment Notes Treatment Clinical Notes Apr, Right lumbar radiculopathy (ICD-10 - M54.16) Presently in PT - discharged on 05/02. Requests MRI and referral. [employer] Other 08-22-2023 Evaluation note* Encounter Date Diagnosis Assessment Notes Treatment Notes Treatment Clinical Notes Mar, Right hip pain (ICD-10 - M25.551) PT paper given to pt. Handout for home stretches given as well. Tramadol to help her sleep. She understands it is a controlled substance and could be sedating. [employer] Other 05-15-2023 Evaluation note* Encounter Date Diagnosis [...] Above note written by Morris Flor MA, Senior Fund Accountant. Edited and approved by Dr. Goldy Glover [...] negative findings were considered in medical decision-making. [employer] Other 04-28-2023 Evaluation note* Encounter Date Diagnosis Assessment Notes Treatment Notes Treatment Clinical Notes Nov, Lumbar pain (ICD-10 - M54.50) [employer] Other 07-20-2022 Evaluation note* Encounter Date Diagnosis Assessment Notes Treatment Notes Treatment Clinical Notes Feb, Bipolar 1 disorder, depressed (ICD-10 - F31.9) [employer] Other 05-05-2022 Evaluation note* Encounter Date Diagnosis Assessment Notes Treatment Notes Treatment Clinical Notes December, Bipolar 1 disorder, depressed (ICD-10 - F31.9) [employer] Other Evaluation + Plan note No data available for this section General Surgery [place] Evaluation + Plan note Future Appointments Appointment Date:06/18/2024 03:30:00 PM Scheduled Provider: Location:[facility] Services Appointment Type:Surgical PAT FT Appointment Date:06/24/2024 09:00:00 AM Scheduled Provider: Location:[facility] Appointment Type:Surgery FT [facility] Evaluation + Plan note Future Appointments Appointment Date:06/24/2024 09:00:00 AM Scheduled Provider: Location:[facility] Services Appointment Type:Surgery FT [facility] Evaluation + Plan note Future Appointments Appointment Date:07/06/2024 10:00:00 AM Scheduled Provider: Location:[facility] Services Appointment Type:Surgical PAT FT Appointment Date:07/22/2024 08:00:00 AM Scheduled Provider: Location:[facility] Appointment Type:Surgery FT [facility] evaluation + Plan note Future Appointments Appointment Date:07/22/2024 08:00:00 AM Scheduled Provider: Location:[facility] Appointment Type:Surgery FT [facility] evaluation + Plan note Future Appointments Appointment Date:07/23/2024 10:30:00 AM Scheduled Provider: Location:[facility] Appointment Type:URO Nurse Visit [facility] evaluation + Plan note Future Appointments Appointment Date:08/26/2024 08:00:00 AM Scheduled Provider:HAMILTON MALONE MD Location:[facility] Appointment Type:URO Office Visit [facility] evaluation noteNo [employer] Other evaluation noteNo assessment information available [facility] Work Phone: evaluation note* Diagnosis Onset Date Resolution Status Acne acute Breast mass, right acute Wellness examination acute Abnormal ultrasound of breast acute [facility] Work Phone: evaluation note* Diagnosis Onset Date Resolution Status Abnormal ultrasound of breast acute [facility] Work Phone: evaluation note* Diagnosis Onset Date Resolution Status UTI (urinary tract infection) acute Dysuria noneactive [facility] Work Phone: evaluation note* Diagnosis Onset Date Resolution Status UTI (urinary tract infection) acute Dysuria noneactive UTI (urinary tract infection) acute [facility] Work Phone: evaluation note* Diagnosis Exposure to STD Vaginal discharge Leukorrhea, not specified as infective Hormone imbalance Sexually transmitted disease exposure Contact with or exposure to venereal diseases Well woman exam with routine gynecological exam Routine gynecological examination Breast cancer screening by mammogram Postmenopausal state Asymptomatic postmenopausal status (age-related) (natural) documented in this encounter [facility]* Diagnosis Hyperthyroidism (CMS/HCC)- 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, without mention of thyrotoxic crisis or storm Long-term current use of lithium Hair loss Unspecified alopecia Palpitation Palpitations documented in this encounter [facility] HealthcareEvaluation note* Diagnosis Hyperthyroidism (CMS/HCC)- 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, without mention of thyrotoxic crisis or storm Long-term current use of lithium Hair loss Unspecified alopecia Palpitation Palpitations Multinodular goiter (CMS/HCC) Nontoxic multinodular goiter documented in this encounter [facility] HealthcareEvaluation note* Diagnosis Hyperthyroidism- 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, without mention of thyrotoxic crisis or storm Multinodular goiter Nontoxic multinodular goiter documented in this encounter [facility] HealthcareHistory general Narrative - Reported* Type Description Date Medical History bipolar disorder Medical History anxiety disorder Medical History high blood pressure Surgical History 2 boul ligation 2000 Surgical History stepidectomy 2009 Surgical History sinus surgery 2014 Hospitalization History See surgical hx Hospitalization History [facility] Other [facility] general Narrative - Reported* Type Description Date Medical History bipolar disorder Medical History anxiety disorder Medical History high blood pressure Medical History Fatigue Medical History High risk medication use Surgical History 2 boul ligation 2000 Surgical History stepidectomy 2009 Surgical History sinus surgery 2015 Surgical History LUBAL LIGATION Hospitalization History See surgical hx Hospitalization History [facility] Other [facility] general Narrative - Reported* Type Description Date [...] Hospitalization History See surgical hx Hospitalization History [facility] Other Hospital Discharge instructionsAmbulatory Orders* Referral to General Surgery Time Frame: 04/03/24, Location: None Selected [facility] Work Phone: Hospital Discharge instructions No data available for this section [facility] [place] [facility] Discharge instructions Additional Instructions Diet You [...] the pain is mild, you may take [id number]-[id number] Tylenol (acetaminophen). Avoid Non-Steroidal Anti-Inflammatories (NSAIDs) such as Aspirin, Ibuprofen, Naproxen, Advil, Aleve, and Motrin, for 72 hours after surgery because they may cause prolonged bleeding. Call your doctor if you develop a rash or other drug reaction. If difficulty with breathing occurs, go directly to the ER. [facility] Work Phone: Progress note No data available for this section General [facility] [place] Reason for Referral Reason piriformis pain Diagnosis 1 Adolescent idiopathi c scoliosis of lumbosacral spine (M41.127) Referral Organization [facility] Referring Provider First Name Helio Referring Provider Last Name Asha Referring Provider Specialty Neurologica l Surgery Referred Organization [facility] Referred Provider Danny Solares Referred Address [address] [place],[address] Referred Provider Specialty Orthopaedic Surgery Referral Priority Routine Reason Requests Dr. Helio qureshi - MRI pending. Went to [place] [facility] and had xrays on 05/05. Diagnosis 1 Right lumbar radicul opathy (M54.16) Referral Organization [facility] lauren Referring Provider First Name Seb Referring Provider Last Name Asha Referring Provider Specialty Family [facility] Referred Organization [facility] Neuro[facility] B jayjaylesly Referred Address [address] [place], [place],[address] Referred Provider Specialty Neurological Surgery Referral Priority Routine Reason No preference on off ice - Lumbar pain - recent OV and xray - thanks Diagnosis 1 Lumbar pain (M54.50) Referral Organization [facility] lauren Referring Provider First Name Seb Referring Provider Last Name Asha Referring Provider Specialty Family [facility] Referred Organization Unknown Facility Referred Provider Specialty [...] 11:12am Preoperative examination June 21, 2024 9:50am Chief Complaint Admit Date December 15, 2024 8:23am E05.90 January 13, 2025 7:33a m Additional Source Comments REASON FOR VISIT (unrecogniz ed section and content) Reason Comments vaginal issues Reason Comments Thyroid Problem NEW REF/LAB Specialty Diagnoses / Procedures [facility] To Contact Endocrinology Diagnoses Other specified abnormal findings of blood chemistry Procedures [place] OFFICE/OUTPATIENT NEW LOW MDM 30 MINUTES Seb Barry MD [address] [place] [address] Phone: tel: fax: Song Covarrubias MD [address] [place] [address] Phone: tel: fax: Referral ID Status Reason Start Date Expiration Date Visits Re quested Visits Authorized [id number] Closed 11/29/2024 05/28/2025 1 1 Reason Comments Thyroid Problem Follow-up LAB/NM US Reason Comments Thyroid Nodule New patient : thyroi d nodule / hyperthyroid Specialty Diagnoses / Procedures Referred By [facility] Referred To Contact Otolaryngology Diagnoses Multinodular goiter Procedures [place] OFFICE/OUTPATIENT NEW HIGH MDM 60 MINUTES Sogn Covarrubias MD [address] [place] [address] Phone: tel: fax: Scooby Fitzgerald W, DO [address] [place] [address] Phone: tel: fax: Referral ID Status Reason Start Date Expiration Date V isits Requested Visits Authorized [id number] Closed Specialty Services Required 01/18/2025 07/17/2025 1 1 INFORMATION SOURCE (unrecogn ized section and content) DATE CREATED AUTHOR 12/25/2022 [facility] DATE CREATED AUTHOR AUTHOR'S ORGANIZ ATION 06/20/2024 [facility] DATE CREATED AUTHOR AUTHOR'S ORGANIZ ATION 07/04/2024 [facility] DATE CREATED AUTHOR AUTHOR'S ORGANIZ ATION 07/06/2024 [facility] DATE CREATED AUTHOR AUTHOR'S ORGANIZ ATION 07/27/2024 [facility] DATE CREATED AUTHOR AUTHOR'S ORGANIZ ATION 10/25/2024 [facility] DATE CREATED AUTHOR AUTHOR'S ORGANIZ ATION 01/24/2025 [facility] DATE CREATED AUTHOR AUTHOR'S ORGANIZ ATION 01/29/2025 [facility] DATE CREATED AUTHOR AUTHOR'S ORGANIZ ATION 02/09/2025 [facility] EPIC Care Teams (unrecognized sec tion and content) [...] End: December 31, 2023 Dieter Loco MD [facility] Attending Provider Active Start: December [...] June 21, 2024 End: June 21, 2024 [employer] Relationship Specialty Start Date End Date Seb Barry MD [address] [place] [facility] [place] [address] PCP - General Family Medicine 04/21/23 [employer] Relationship Specialty Start Date End Date Seb Barry MD [address] [place] [facility] [phone] PCP - General Family Medicine 04/21/23 [employer] Relationship Specialty Start Date End Date Seb Barry MD [address] [place] [facility] [phone] PCP - General Family Medicine 04/21/23 Team Status: Active Member Role [...] NO FAMILY Primary Care Provider Active Start: August 10, 2024 Pan Sanders MD Attending Provider Active Start: August 10, 2024 Team Status: Inactive Member Role Status Dates Seb Barry MD Primary Care Provider Active Start: August 18, 2024 End: August 18, 2024 Hamilton Malone MD Attending Provider Active Start: August 18, 2024 End: August 18, 2024 [employer] Relationship Specialty Start Date End Date Seb Barry MD [address] [place] [facility] [place] [phone] PCP - General Family Medicine 04/21/23 [employer] Relationship Specialty Start Date End Date Seb Barry MD [address] [place] [facility] [phone] PCP - General Family Medicine 04/21/23 Team Status: Active Member Role Status Dates Seb Barry MD Primary Care Provider Active Start: November 18, 2024 Regulo Hinds MD Attending Provider Active St art: November 18, 2024 Team Status: Active Member Role Status Dates PHYSICIAN FAMILY Primary Care Provider Active Start: December 15, 2024 Pan Sanders MD Attending Provider Active Start: December 15, 2024 Team Status: Active Member Role Status Dates Seb Barry MD Primary Care Provider Active Start: December 16, 2024 Song Covarrubias MD Attending Provider Active Sta rt: December 16, 2024 Team Status: Inactive Member Role Status Dates Seb Barry MD Primary Care Provider Active Start: January 13, 2025 End: January 13, 2025 Song Covarrubias MD Attending Provider Active Sta rt: January 13, 2025 End: January 13, 2025 [employer] Relationship Specialty Start Date End Date Seb Barry MD [address] [place] [facility] [place] [phone] PCP - General Family Medicine 04/21/23 [employer] Relationship Specialty Start Date End Date Seb Barry MD [address] [place] [facility] [place] [phone] PCP - General Family Medicine 04/21/23 [employer] Relationship Specialty Start Date End Date Seb Barry MD [facility] [place] [address] PCP - General Family Medicine 04/21/23 [employer] Relationship Specialty Start Date End Date Julianne Prater MD [address] [place] [address] PCP - General 02/17/25 Goals (unrecognized section and content) Goals may [...] BE BASED ON THE PRIMARY CLINICAL RECORDS. [facility]. provides no warranty or guarantee of the accuracy or completeness of information in this document.
--- NOTE | 2025-02-18 11:00 | MM_ITS ---
Patient Name: REMINGTON SWEENEY MR#: [id number] : 1960 Exam Date: 02/18/2025 Ordering Doctor: DR SEB BARRY M.D. RADIOLOGY REPORT PROCEDURE: MM TOMOSYNTHESIS SCREENING BI COMPARISON: MM TOMOSYNTHESIS DIAGNOSTIC BI, 11/05/2023. MG MAMM SCREEN 3D TOMY CAD, 11/14/2022. MG MAMM SCREEN 3D TOMY CAD, 09/02/2019. INDICATIONS: Screening Calculator Name NCI Breast Cancer Risk Assessment Tool 5 Year Breast Cancer Risk 2.00% Lifetime Breast Cancer Risk 9.00% Personal Breast Cancer No Personal Ovarian Cancer No Treatments None Family Cancers Grandfather-maternal with prostate cancer at age 82; Aunt-maternal with breast cancer at age ~52; Uncle-paternal with colon cancer at age 60. LOCATION: [facility] BREAST COMPOSITION: The breasts are heterogeneously dense, which may obscure small masses. FINDINGS: RIGHT BREAST: No significant suspicious finding. There is a breast implant which is unchanged and grossly intact. Similar focal asymmetries are present. LEFT BREAST: No significant suspicious finding. There is a breast implant which is unchanged and grossly intact. Similar focal asymmetries are present. DIAGNOSTIC CATEGORY 2--BENIGN FINDING: RECOMMENDATIONS: ROUTINE MAMMOGRAM AND CLINICAL EVALUATION IN 12 MONTHS. PLEASE NOTE: A NORMAL MAMMOGRAM DOES NOT EXCLUDE THE POSSIBILITY OF BREAST CANCER. A CLINICALLY SUSPICIOUS PALPABLE LUMP SHOULD BE BIOPSIED. Dictated by: Pieter Carlton MD on 02/18/2025 at 12:37 Approved by: Pieter Carlton MD on 02/18/2025 at 12:41
== END 2025-02-18 10:14 | disposition home or self-care (01) ==
PROVIDERS: PCP Family Medicine; Visit Provider Family Medicine
DX: Z12.31 Encounter for screening mammogram for malignant neoplasm of breast (principal); Z80.42 Family history of malignant neoplasm of prostate; Z80.3 Family history of malignant neoplasm of breast; Z80.0 Family history of malignant neoplasm of digestive organs
CPT/HCPCS: 77063; 77067

== ENCOUNTER 2025-04-29 11:47 | Outpatient (OUT) | payer OTHER, SELFPAY ==
--- OUTSIDE RECORDS SUMMARY | 2025-04-29 11:57 | XMS_ITS | CCD ---
Author Organization [facility] CliniSynj Care Team Providers Care Carton Machine Operator Name Role Phone Paresh Calixto Unavailable Seb [...] Admitting Unavailable MD Helio Barry Attending Provider [phone] MD Seb Barry Primary Care Provider [phone] Helio Barry Unavailable NO FAMILY, PHYSICIAN Primary Care Provider Unava MD Pan Gutierrez Attending Provider [phone] SEB BARRY Primary Care Physician NO FAMILY, PHYSICIAN Primary Care Provider Unava MD Pan Gutierrez Attending Provider [phone] MD Seb Barry Primary Care Provider [phone] MD Dieter Loco Attending Provider [phone] NO FAMILY, PHYSICIAN Primary Care Provider Unava MD Pan Gutierrez Attending Provider [phone] NO FAMILY, PHYSICIAN Primary Care Provider Unava ilable MD Pan Sanders Attending Provider [phone] KAUSHAL Hill Attending Provider NON STAFF Primary Care Provider UnavailDieter Olivarez Attending Unavailable NKANSAH-AMANKRA, HAMILTON Attending Unavail able Beryl Henderson Attending Unavailable KARON FLORES Attending Unavailable NKANSAH-AMANKRA, HAMILTON Admitting Unavail able NKANSAH-AMANKRA, HAMILTON Attending Unavail able NKANSAH-AMANKRA, HAMILTON Referring Unavail able Dieter LOCO Attending Unavailable Dieter LOCO Attending Unavailable Dieter LOCO Attending Unavailable Adamaris Hill APRN Attending Provider [phone] NON STAFF Primary Care Provider UnavailSeb Martínez MD Attending Provider [phone] NO FAMILY, PHYSICIAN Primary Care Provider Unava ilable Pan Sanders MD Attending Provider [phone] NKANSAH-AMANKRA, HAMILTON Admitting Unavail able NKANSAH-AMANKRA, HAMILTON [...] e CROW DO Ronobir R Attending Unavailabl eric MARIA DO Ronobir R Attending Unavailabl Brandon Walls Consulting Unavailable DO Emmanuel MARIAr R Admitting UnavailBrandon Almaraz Consulting Unavailable Brandon Kulkarni Consulting Unavailable NO FAMILY, PHYSICIAN Primary Care Provider Unava ilable Pan Sanders MD Attending Provider Seb Barry MD Primary Care Provider Hamilton Malone MD Attending Provider NKANSLUZMA-AMANK, HAMILTON Attending Unavail able NKANSJEFERSONAMENZO, HAMILTON Attending Unavail able Eri WALDROP Attending Unavailable Aditya MARIA Admitting Unavailable Brandon Kulkarni Consulting Unavailable Brandon Kulkarni Consulting Unavailable Brandon Kulkarni Consulting Unavailable NKEMI, HAMILTON Attending Unavail able NKANSLUZMA-AMANK, HAMILTON Attending Unavail able NKANSLUZMA-AMANK, HAMILTON Referring Unavail able NKANSLUZMA-AMANK, HAMILTON Attending Unavail able NKANSJEFERSONAMENZO, HAMILTON Attending Unavail able Seb Barry MD Primary Care Provider [phone] NO FAMILY, PHYSICIAN Primary Care Provider Unava ilable Pan Sanders MD Attending Provider Seb Barry MD Primary Care Provider Song Covarrubias MD Attending Provider Melanie Prater MD Primary Care Provider Seb Barry MD Primary Care Provider Song Covarrubias MD Attending Provider [phone] Seb Barry MD Attending Provider Scooby Fitzgerald DO Attending Provider Pan Sanders Admitting Unavailab le Pan Sanders Attending Unavailab le NO FAMILY, PHYSICIAN Primary Care Unavailable Seb Barry Primary Care Unavailable Nkansah-Amankra, Hamilton Admitting Unavail able Nkansah-Amenzo, Hamilton Attending Unavail able Adamaris Hill Admitting Unavailable Adamaris Hill Attending Unavailable NON STAFF Primary Care Unavailable Seb Barry Attending Unavailable Seb Barry Admitting Unavailable Seb Barry Primary Care Unavailable Marci, Ahmad Admitting Unavailable Marcelo Covarrubiasd Attending Unavailable Scooby Fitzgerald Admitting Unavailable Scooby Fitzgerald Attending Unavailable MARCI, AHMAD F Attending Unavailable SEB BARRY Referring Unavailable MARCI, AHMAD F Attending Unavailable FAIZA ALMENDAREZ Attending Unavailable SCOOBY FITZGERALD W Attending Unavailable SONG COVARRUBIAS F Referring Unavailable SCOOBY FITZGERALD W Attending Unavailable SCOOBY FITZGERALD W Attending Unavailable MINA, MELANIE Referring Unavailable MINA, MELANIE Primary Care Unavailable MINA, MELANIE Referring Unavailable MINA, MELANIE Primary Care Unavailable MINA, MELANIE Referring Unavailable MINA, MELANIE Primary Care Unavailable MINA, MELANIE Referring Unavailable MINA, MELANIE Primary Care Unavailable Allergies Allergy Classification Reported Allergen(s) Allergy Type Date of Onset Reaction(s) Facility (15 sources) Penicillins Drug allergy 4 [facility] (20 sources) metFORMIN; Translations: [metformin] Drug Allergy 4 [facility]al (disorder) [facility] (8 sources) Substance with penicillin structure and antibacterial mechanism of action (substance) Drug allergy [facility] [employer] Other (20 sources) Penicillin; Translations: [penicillin] Drug Allergy Weal (disorder) [facility] [place] (20 sources) Penicillins Drug Allergy 4 [facility] (1 source) metFORMIN Drug Allergy 5 [facility] (1 source) Penicillins Drug allergy (disorder) 5 [facility] Medications Current Medications Medication Drug Class(es) Dates Sig (Normalized) Sig (Original) aspirin 81 mg chewable tablet (7 sources) Platelet Aggregation Inhibitor, Nonsteroidal Anti-inflammatory Drug take 1 tablet by mouth every twenty-four hours Aspirin 81 MG 1 tablet Orally Once a day PRN Active Calcium Carbonate (15 sources) Start: 11-17-2023 take 1 tablet by [...] cysto, # 2 tab(s), Refills(s) 0, Pharmacy: [facility]/pharmacy #[id number], 170, cm, 05/25/24 10:38:00 EDT, Height/Length Dosing, 84, kg, 05/25/24 10:38:00 EDT, Weight Dosing Start Date: 05/28/24 Status: Ordered estradiol 0.1 mg/ml vaginal cream (12 sources) Estrogen Start: 04-21-2024 End: 05-21-2024 estradiol (Estrace) 0.1 MG/GM vaginal cream Indications: Hormone imbalance Insert 2 g into the vagina Daily Apply 1/2 APPLICATOR daily for 2 weeks 45 g 3 04/21/2024 05/21/2024 Active Start: 02-11-2024 Folate (2 sources) Folate Active lithium carbonate 300 mg oral tablet (20 sources) Start: 01-21-2025 take 3 tablets by mo uth once daily at bedtime Start: 06-24-2024 End: 08-18-2024 take 1 capsule by mouth once daily at bedtime Chicken Carbonate 600 mg capsule Discontinued 600 MG PO Daily at bedtime June 24, 2024 1:00am August 18, 2024 9:04am Start: 11-17-2023 take 1 tablet by feliberto th at bedtime lithium 300 mg oral tablet 300 mg = 1 tab(s), Oral, Bedtime, Refills(s) 0 Start Date: 11/17/23 Status: Ordered Repeat number: 1 Start: 11-17-2023 take 3 tablets by [facility] at bedtime lithium 300 mg oral tablet 900 mg = 3 tab(s), Oral, Bedtime, Refills(s) 0 Start Date: 11/17/23 Status: Ordered Start: 10-22-2023 lithium ER (Li thobid) 300 MG 12 hr tablet Take 900 mg by mouth Daily 10/22/2023 Active Start: 10-22-2023 End: 06-24-2024 take 3 tablets by mouth three times daily at bedtime Chicken Carbonate 300 mg tablet extended release Discontinued MG PO Three times daily October 22, 2023 9:33am June 24, 2024 11:17am FreeTextSi tablets Orally at HS; Note: Source Status: [id number] mg as needed; Refills: 0; Provider: Asha Cadet ( ) take 3 tablets by [facility] at bedtime Chicken Carbonate ER 300 MG 3 tablets Orally at HS for 90 days 900-1200 mg as needed Active take 4 tablets by [facility] every twenty-four hours Chicken Carbonate ER 300 MG 4 tablets Orally Once a day for 90 days 900-1200 mg as needed Active LORazepam 0.5 mg oral tablet (7 sources) Benzodiazepine Start: 12-13-2021 take 1 tablet by mouth every twenty-four hours Ativan 0.5 MG 1 tablet at bedtime as needed Orally Once a day for 10 days f41.1 December, Active take 1 tablet by [facility] every twenty-four hours Ativan 0.5 MG 1 tablet at bedtime as needed Orally Once a day for 4 days f41.1 Active methIMAzole 5 mg oral tablet (11 sources) Thyroid Hormone Synthesis Inhibitor Start: 01-18-2025 End: 07-17-2025 take 1 tablet by mouth once daily methIMAzole (Tapazole) 5 MG tablet Indications: Hyperthyroidism Take 1 tablet (5 mg) by mouth Daily 90 tablet 1 01/18/2025 07/17/2025 Active Multivitamin (Daily Multi-Vitamin) tablet (1 source) Start: 01-21-2025 take 1 tablet by mouth once daily Burns 9-Ywl-Ugq-Fish Oil (Fish Oil) 1,000 (120-180) mg capsule (3 sources) Start: 08-18-2024 take 1 capsule by mouth once daily in the morning Start: 08-18-2024 take 1 capsule by mo uth once daily in the morning Burns 6-Cob-Dbp-Fish Oil (Fish Oil) 1,000 (120-180) mg capsule Active 1 CAP PO Every morning August 18, 2024 1:00am Start: 08-18-2024 take 1 capsule by mo uth once daily in the morning Burns 8-Qiz-Lym-Fish Oil (Fish Oil) 1,000 (120-180) mg capsule Active 1 CAP PO Every morning August 18, 2024 12:00am omeprazole 20 mg delayed release oral capsule (20 sources) Proton Pump Inhibitor Start: 10-22-2023 take 1 capsule by mouth once daily in the morning take 1 capsule by mouth before m ealtime omeprazole (PriLOSEC) [address] capsule Take 10 mg by mouth in the morning. Take before meals. Do not crush or chew. Active Omeprazole OTC A ctive phenazopyridine hydrochloride 100 mg oral tablet (1 source) Start: 06-24-2024 End: 06-27-2024 take 1 tablet by mouth three times daily Pyridium 100 mg Tab 100 mg = 1 tab(s), Oral, TID, X 3 day(s), # 9 tab(s), Refills(s) 0, Pharmacy: [facility]/pharmacy #[id number], 174, cm, 06/18/24 [...] 90 Active tretinoin 1 mg/ml topical cream (20 sources) Retinoid Start: 11-17-2023 tretinoin Top 0.1% Crm 1 susan, Topical, Once a day (at bedtime), Refill(s) 0 Start Date: 11/17/23 Status: Ordered Repeat number: 1 Start: 10-22-2023 End: 04-21-2024 24 hr venlafaxine 225 mg extended release oral tablet (20 sources) Serotonin and Norepinephrine Reuptake Inhibitor Start: 11-17-2023 venlafaxine as directed, Refills(s) 0 Start Date: 11/17/23 Status: Ordered Start: 10-22-2023 venlafaxine XR (Effexor XR) 225 MG 24 hr tablet 1 tablet 10/22/2023 Active Start: 10-22-2023 take 1 tablet by feliberto th once daily in the morning take 1 tablet by feliberto th every [...] Not-Taking cyclobenzaprine hydrochloride 10 mg oral tablet (14 sources) Muscle Relaxant Start: 10-22-2023 End: 10-22-2023 [...] tablet 3 times a day prn Active docusate sodium 100 mg oral capsule (10 sources) Start: 08-09-2024 End: 01-21-2025 take 1 capsule by mouth twice daily Docusate Sodium (Colace) 100 mg capsule Discontinued 100 MG PO Twice daily August 18, 2024 1:00am January 21, 2025 10:25am Start: 07-26-2024 take 1 capsule by mouth twice daily Colace 100 mg Cap 100 mg = 1 cap(s), Oral, BID, Refills(s) 0 Start Date: 07/26/24 Status: Ordered Start: 07-22-2024 take 1 capsule by mo uth twice daily as needed for constipation Colace 50 mg oral capsule 50 mg = 1 cap(s), Oral, BID, PRN for constipation, # 60 cap(s), Refills(s) 0, Pharmacy: [facility]/pharmacy #[id number], 174, cm, 07/06/24 9:03:00 EST, Height/Length Dosing, 81.8, kg, 07/06/24 9:03:00 EST, Weight Dosing Start Date: 07/22/24 Status: Ordered Iron Fum,Ga-Nxcqr-Abvja,C No.9 (Iron Folate Plus) 125 mg iron- 1 mg capsule (10 sources) Start: 10-22-2023 End: 10-22-2023 take 1 capsule by mouth once daily at mealtime Iron Fum,Su-Pavjf-Mxexu,C No.9 (Iron Folate Plus) 125 mg iron- 1 mg capsule Discontinued 1 CAP PO Daily October 21, 2023 11:00pm October 22, 2023 8:33am administer between meals Start: 10-22-2023 End: 10-22-2023 take 1 capsule by mouth once daily at mealtime Iron Fum,Cl-Ianwx-Dfskx,C No.9 (Iron Folate Plus) 125 mg iron- [...] Discontinued nitrofurantoin, macrocrystals 100 mg oral capsule (5 sources) Nitrofuran Antibacterial Start: 06-04-2024 End: 06-21-2024 [...] Active oxyCODONE hydrochloride 5 mg oral capsule (5 sources) Opioid Agonist Start: 08-18-2024 End: 01-21-2025 take 1 capsule by mouth every eight hours as needed for pain Oxycodone 5 mg capsule Discontinued 5 MG PO Every 8 hours as needed for pain 5 August 18, 2024 January 21, 2025 10:26am Start: 07-22-2024 take 1 tablet by feliberto th every six hours as needed for pain Roxicodone 5 mg Tab 5 mg = 1 tab(s), Oral, q6hr, PRN for pain, # 5 tab(s), Refills(s) 0, Pharmacy: [facility]/pharmacy #[id number], 174, cm, 07/06/24 9:03:00 EST, Height/Length Dosing, 81.8, kg, 07/06/24 9:03:00 EST, Weight Dosing Start Date: 07/22/24 Status: Ordered sulfamethoxazole 400 mg / trimethoprim 80 mg oral tablet (14 sources) Dihydrofolate Reductase Inhibitor Antibacterial, Sulfonamide Antimicrobial Start: 08-18-2024 End: 01-21-2025 take 1 tablet by mouth twice daily Sulfamethoxazole-Trimethoprim (Bactrim) 400-80 mg tablet Discontinued 1 TAB PO Twice daily August 18, 2024 1:00am January 21, 2025 10:26am Start: 07-22-2024 End: 07-27-2024 Bactrim D.S. 800 mg-160 mg T ab 1 tab(s), Oral, BID for 5 day(s), 10 tab(s), Refill(s) 0, [facility]/pharmacy #[id number], 174, cm, 07/06/24 [...] Active traMADol hydrochloride 50 mg oral tablet (16 sources) Opioid Agonist Start: 10-22-2023 End: 10-22-2023 [...] (4 sources) Palpitations; Translations: [Palpitations] 12-14-2024 Episodic Genitourinary symptoms and ill-defined conditions (20 sources) Urinary incontinence; Translations: [Unspecified urinary incontinence] Onset: 05-25-2024 Resolved: 02-05-2025 02-11-2024 Chronic Malaise and fatigue (11 sources) Fatigue; Translations: [Other fatigue] Onset: 05-17-2022 Episodic Menopausal disorders (20 sources) Menopausal and postmenopausal disorders; Translations: [Unspecified menopausal and perimenopausal disorder] Onset: 06-11-2024 Chronic Mood disorders (20 sources) Bipolar disorder; Translations: [Bipolar disorder, unspecified] Onset: 12-13-2021 Resolved: 02-05-2025 Chronic Other aftercare (8 sources) H/O: high risk medication; Translations: [Other group home (current) drug therapy] Episodic Other aftercare (5 sources) Other group home (current) drug therapy; Translations: [OTH DYNAMITE RECLAIMER CURRENT DRUG THERAPY] Onset: 05-17-2022 Episodic Other aftercare (3 sources) Long-term current use of drug therapy; Translations: [Other group home (current) drug therapy] Onset: 07-25-2024 Episodic Other aftercare (4 sources) Long-term current use of lithium; Translations: [Other group home (current) drug therapy] 12-14-2024 Episodic Other bone disease and musculoskeletal deformities (2 sources) Adolescent idiopathic scoliosis; Translations: [Adolescent idiopathic scoliosis, lumbosacral region] Chronic Other bone disease and musculoskeletal deformities (1 source) Adolescent idiopathic scoliosis, lumbosacral region Chronic Other circulatory disease (2 sources) Elevated blood-pressure reading without diagnosis of hypertension; Translations: [Elevated blood-pressure reading, without diagnosis of hypertension] Episodic Other female genital disorders (7 sources) Vaginal dryness; Translations: [Other specified noninflammatory disorders of vagina] 02-11-2024 Episodic Other female genital disorders (2 sources) Other specified conditions associated with female genital organs and menstrual cycle; Translations: [Other specified conditions associated with female genital organs and menstrual cycle] Onset: 03-09-2025 Episodic Other gastrointestinal disorders (1 source) Constipation, unspecified; Translations: [Constipation, unspecified] Onset: 07-26-2024 Episodic Other nervous system disorders (15 sources) Chronic pain; Translations: [Other chronic pain] [...] [Sacroiliitis, not elsewhere classified] Chronic Thyroid disorders (20 sources) Hyperthyroidism; Translations: [Thyrotoxicosis, unspecified without thyrotoxic crisis or storm] Onset: 01-13-2025 12-14-2024 Chronic Unclassified (3 sources) LOW BACK PAIN, UNSPECIFIED; Translations: [LOW BACK PAIN, UNSPECIFIED] Onset: 12-12-2022 Past or Other Problems Problem Classification Problem Date Documented Date Episodic/Chronic Acute and unspecified renal failure (11 sources) Acute renal failure syndrome; Translations: [Acute kidney failure, unspecified] Onset: 07-24-2024 Resolved: 02-05-2025 Episodic Acute myocardial infarction (20 sources) Myocardial infarction; Translations: [Acute myocardial infarction, unspecified] Onset: 02-05-2025 Resolved: 02-05-2025 05-24-2024 Chronic Comment on above: Outside Source Comme nt: Comment on above: 2004 Anxiety disorders (8 sources) Anxiety disorder due to a general medical condition; Translations: [Anxiety disorder due to known physiological condition] Onset: 02-05-2025 Resolved: 02-05-2025 02-05-2025 Episodic Complication of device; implant or graft (15 sources) Infection of bladder catheter; Translations: [Infection and inflammatory reaction due to other urinary catheter, initial encounter] Onset: 07-30-2024 Resolved: 02-05-2025 Episodic Disorders of lipid metabolism (20 sources) Hypercholesterolemia; Translations: [Pure hypercholesterolemia, unspecified] Onset: 02-05-2025 Resolved: 02-05-2025 11-17-2023 Chronic Esophageal disorders (20 sources) Gastroesophageal reflux disease; Translations: [Gastroesophageal reflux disease without esophagitis] Onset: 07-25-2024 Resolved: 02-05-2025 05-24-2024 Chronic Essential hypertension (20 sources) Essential (primary) hypertension; Translations: [Essential hypertension] Onset: 05-17-2022 Resolved: 02-05-2025 11-17-2023 Chronic Genitourinary symptoms and ill-defined conditions (20 sources) Dysuria; Translations: [Dysuria] Onset: 05-19-2024 Resolved: 02-05-2025 05-19-2024 Episodic Headache; including migraine (20 sources) Migraine; Translations: [Migraine, unspecified, not intractable, without status migrainosus] Onset: 02-05-2025 Resolved: 02-05-2025 05-24-2024 Chronic Immunizations and screening for infectious disease (4 sources) Exposure to sexually transmissible disorder; Translations: [Contact with and (suspected) exposure to infections with a predominantly sexual mode of transmission] 04-21-2024 Episodic Miscellaneous mental health disorders (8 sources) Primary insomnia; Translations: [Primary insomnia] Onset: [...] 04-22-2023 04-22-2023 Episodic Other non-traumatic joint disorders (15 sources) Hip pain; Translations: [Pain in right [...] Resolved: 02-05-2025 10-22-2023 Episodic Residual codes; unclassified (10 sources) Obstructive sleep apnea syndrome; Translations: [Obstructive [...] PAIN, UNSPECIFIED] Onset: 12-06-2022 Urinary tract infections (16 sources) Urinary tract infectious disease; Translations: [Urinary tract infection, site not specified] Onset: 06-04-2024 05-19-2024 Episodic Results Test Name Value Interpretation Reference Range Facility [facility] 02-22-2025 L ----- Specimen: [id number] Received: 02/22/25 Status: VALERIE Mancini Num: [id number] Spec Type: Cytology Subm Dr: Scooby Fitzgerald,DO Tissues: A FNA SLIDES NOPATH (LT THYROID NODULE) Procedures: Cyto Int and Re, PAPSTN/13 Age/ Patient Sex Location Account Attending Physician Rain Sweeney 64/F [place] [id number] Scooby Fitzgerald DO SPEC NUM: [id number] RECD: 02/22/25 STATUS: SOUT REQ NUM: [id number] JOSEMANUEL: 02/22/[address] [facility] [address]: Scooby Fitzgerald DO ENTERED: 02/22/[address] [facility] [address]: MARCELL TYPE: Cytology DEPT: CN ENTERED BY: [id number] RECV BY: [id number] ORDERED: Cyto Int and Re, PAPSTN/13 ORDERED: Cyto Int and Re, PAPSTN/13 Pathological Diagnosis Left thyroid nodule, fine-needle aspirate (smears and ThinPrep): ? Follicular lesion of undetermined significance, [place] category III ? Specimen contains a few groups of follicular cells with microfollicles formation, focal Hurthle cell changes and focal nuclear overlapping. Clinical Information Left Thyroid Nodule Gross Description Received fixed in Cytolyt is 30 ml pale pink hazy fixed fluid for cytology said to have been obtained as Left Thyroid Nodule. ThinPrep preparations are prepared for microscopic examination. Also received are 12 spray fixed smeared slides for pap and a Thyroseq vial stored at -20 for microscopic examination. (/ca) CPT Codes 87041, 29014 Specimen: [id number] Received: 02/22/25 Status: VALERIE Mancini Num: [id number] Spec Type: Cytology Subm Dr: Scooby Fitzgerald DO Tissues: A FNA SLIDES NOPATH (LT THYROID NODULE) Procedures: Cyto Int and Re, PAPSTN/13 Patient: Rain Sweeney [id number] (Continued) Signed (signature on file) Kyrie Landers MD 02/23/25 0848 Normal [facility] Basophils Auto (Bld) [#/Vol] on 01-21-2025 Basophils (Bld) [#/Vol] 0.1 10 3/uL 0.0-0.1 [facility] Basophils/100 WBC Auto (Bld) on 01-21-2025 Basophils/100 WBC (Bld) 1.7 % 0.2-2.0 F [facility] Eosinophils/100 WBC Auto (Bl d)on 01-21-2025 Eosinophils/100 WBC (Bld) 6.7 % 0.9-7.0 [facility] Erythrocyte distribution wid th Auto (RBC) [Ratio]on 01-21-2025 Erythrocyte distribution width (RBC) [Ratio] 16.8 % High 11.0-15.0 [facility] Globulin Calc (S) [Mass/Vol] on 01-21-2025 Globulin (S) [Mass/Vol] 3.9 g/dL F [facility] Hematocrit Auto (Bld) [Volum e fraction]on 01-21-2025 Hematocrit (Bld) [Volume fraction] 43.3 % 36.0-48.0 [facility] Hemoglobin [Mass/volume] in Bloodon 01-21-2025 Hemoglobin (Bld) [Mass/Vol] 13.7 g/dL 12.0-16.0 [facility] Laboratory - Chemistry and C hemistry - challengeon 01-21-2025 Albumin [Mass/Vol] 3.2 g/dL Low 3.4-5.0 [facility] ALP [Catalytic activity/Vol] 99 U/L 46-116 [facility] ALT [Catalytic activity/Vol] 19 U/L 14-59 [facility] AST [Catalytic activity/Vol] 13 U/L Low 15-37 [facility] Bilirubin [Mass/Vol] 0.3 mg/dL 0.2-1.0 [facility] Bilirubin.direct [Mass/Vol] 0.1 mg/dL 0.0-0.2 [facility] Free T4 [Mass/Vol] 0.63 ng/dL Low 0.76-1.46 [facility] Protein [Mass/Vol] 7.1 g/dL 6.4-8.2 [facility] TSH Qn 2.870 m[IU]/L 0.358-3.74 0 [facility] Laboratory - Hematology and Cell countson 01-21-2025 Immature granulocytes/100 WBC (Bld) 0.6 % High 0.0-0.5 [facility] Leukocytes [#/volume] correc sheeba for nucleated erythrocytes in Blood by Automated counon 01-21-2025 WBC corrected for nucl RBC Auto (Bld) [#/Vol] 5.4 10 3/uL 4.0-11.0 [facility] Lymphocytes Auto (Bld) [#/Vo l]on 01-21-2025 Lymphocytes (Bld) [#/Vol] 1.6 10 3/uL 1.2-3.8 [facility] Lymphocytes/100 WBC Auto (Bl d)on 01-21-2025 Lymphocytes/100 WBC (Bld) 29.1 % 20.5-60.0 [facility] MCH Auto (RBC) [Entitic mass ]on 01-21-2025 MCH (RBC) [Entitic mass] 27.1 pg 26.7-34.0 [facility] MCHC Auto (RBC) [Mass/Vol]on 01-21-2025 MCHC (RBC) [Mass/Vol] 31.6 g/dL 29.9-35.2 [facility] MCV Auto (RBC) [Entitic vol] on 01-21-2025 MCV (RBC) [Entitic vol] 85.7 fL 81.0-99.0 F [facility] Monocytes Auto (Bld) [#/Vol] on 01-21-2025 Monocytes (Bld) [#/Vol] 0.5 10 3/uL 0.3-0.8 [facility] Monocytes/100 WBC Auto (Bld) on 01-21-2025 Monocytes/100 WBC (Bld) 8.3 % 1.7-12.0 [facility] Neutrophils Auto (Bld) [#/Vo l]on 01-21-2025 Neutrophils (Bld) [#/Vol] 2.9 10 3/uL 1.4-6.5 [facility] Neutrophils/100 WBC Auto (Bl d)on 01-21-2025 Neutrophils/100 WBC (Bld) 53.6 % 43.0-75.0 [facility] No Panel Informationon 01-21 Eosinophils # (Auto) 0.4 10 3/uL 0.0-0.7 [facility] Free Triiodothyronine 2.19 pg/mL 2.18-3.98 [facility] Immature Granulocyte # (Auto) 0.03 10 3/uL 0.00-0.03 [facility] Platelet mean volume Auto (B ld) [Entitic vol]on 01-21-2025 Platelet mean volume (Bld) [Entitic vol] 10.4 fL 9.5-13.5 [facility] Platelets Auto (Bld) [#/Vol] on 01-21-2025 Platelets (Bld) [#/Vol] 246 10 3/uL 150-450 [facility] RBC Auto (Bld) [#/Vol]on RBC (Bld) [#/Vol] 5.05 10 6/uL 4.20-5.40 [facility] Serum or plasma albumin/glob ulin mass ratioon 01-21-2025 Albumin/Globulin [Mass ratio] 0.8 {ratio} [facility] NM thyroid w uptakeon 2024 [place] [address] Nuclear Medicine Report Signed Patient: Rain Sweeney MR#: [id number] : 1960 Acct:[id number] Age/Sex: 64 / F ADM Date: 01/13/25 Loc: UL Room: Type: [facility] Attending Dr: Song Covarrubias MD Copies to: [...] Carlton M.D. 01/14/2025 8:18 AM Dictation Location: [place] [address] Transcribed By: [facility] [facility] 01/14/25817 Dictated By: Pieter Carlton II, MD 01/14/25815 Signed By: 01/14/25817 Normal [facility] US thyroidon 01-13-2025 thyroid [facility] [place] [place] [address] Ultrasound Report Signed Patient: Rain Sweeney MR#: [id number] 609 : 1960 Acct:[id number] Age/Sex: 64 / F ADM Date: 01/13/25 Loc: Room: Type: [facility] Attending Dr: Song Covarrubias MD Ordering Provider: Song Covarrubias MD Date of Service: 01/13/25 US/US thyroid: E05.90 Copies to: Song Covarrubias MD THYROID ULTRASOUND CLINICAL DATA: Low thyroid [...] Kellogg M.D. 01/13/2025 9:02 AM Dictation Location: [place] [address] Tech: Nara Montenegrorobyn Transcribed By: BRYSON 01/13/25901 Dictated By: Denae Kellogg MD 01/13/25899 Signed By: 01/13/25901 Normal [facility] Laboratory - Chemistry and C hemistry - challengeon 12-16-2024 Free T4 [Mass/Vol] 0.83 ng/dL 0.76-1.46 [facility] TSH Qn 0.015 m[IU]/L Low 0.358-3.74 0 [facility] No Panel Informationon 12-16 Free Triiodothyronine 3.32 pg/mL 2.18-3.98 [facility] Serum or plasma thyroglobuli n antibody assay (units/volume)on 12-16-2024 Thyroglobulin Ab Qn Serum or plasma thyroglobulin antibody assay (units/volume) Abnormal 0.0-0.9 [facility] Comment on above: Thyroglobulin Antibo dy measured by HEMINGWAYMethodologyIt should be noted that the presence of thyroglobulinantibodies may not be pathogenic nor diagnostic, especiallyat very low levels. The assay accountant certified public has found thatfour percent of individuals without evidence of thyroiddisease or autoimmunity will have positive TgAb levels upto 4 IU/mL.Performed at: [facility] [place] [address] [id number] Director: Reji Williamson PhD, Phone: [phone] Thyroglobulin Ab Qn 2.0 [IU]/mL Abnormal 0.0-0.9 [facility] Comment on above: Thyroglobulin Antibo dy measured by ImmunexpressodologyIt should be noted that the presence of thyroglobulinantibodies may not be pathogenic nor diagnostic, especiallyat very low levels. The assay accountant certified public has found thatfour percent of individuals without evidence of thyroiddisease or autoimmunity will have positive TgAb levels upto 4 IU/mL.Performed at: [facility] [address] [id number] Director: Reji Williamson PhD, Phone: [phone] Serum or plasma thyroperoxid ase antibody assay (units/volume)on 12-16-2024 TPO Ab Qn Serum or plasma thyroperoxidase antibody assay (units/volume) 0-34 [facility] TPO Ab Qn 12 [IU]/mL 0-34 [facility] Serum thyrotropin receptor a ntibody assay (units/volume)on 12-16-2024 TSH receptor Ab Qn (S) Serum thyrotropin receptor antibody assay (units/volume) 0.00-1.75 [facility] Comment on above: Performed at: [facility] [id number] Director: Danilo Lloyd MD, Phone: [phone] TSH receptor Ab Qn (S) <1.10 IU/L 0.00-1.75 [facility] Comment on above: Performed at: [employer] [id number] Director: Danilo Lloyd MD, Phone: [phone] Cholesterol in LDL Calc [Mas s/Vol]on 11-18-2024 Cholesterol in LDL [Mass/Vol] Cholesterol in LDL [Mass/volume] in Serum or Plasma by calculation [facility] Comment on above: <100 mg/dl [id number] 0-129 mg/dl NEAR OR ABOVE [id number] mg/dl BORDERLINE [id number] mg/dl HIGH>190 mg/dl VERY HIGH Cholesterol in VLDL Calc [Ma ss/Vol]on 11-18-2024 Cholesterol in VLDL [Mass/Vol] Cholesterol in VLDL [Mass/volume] in Serum or Plasma by calculation [facility] Estimated glomerular filtrat ion rate (GFR) non- Americanon 11-18-2024 GFR/1.73 sq M.predicted among non-blacks MDRD (S/P/Bld) [Vol rate/Area] Estimated glomerular filtration rate (GFR) non- Low >=60 mL/min/1.7 3m 2 [facility] Glucose mean value [Mass/vol ume] in Blood Estimated from glycated hemoglobinon 11-18-2024 Average glucose Estimated from glycated hemoglobin (Bld) [Mass/Vol] Glucose mean value [Mass/volume] in Blood Estimated from glycated hemoglobin [facility] Hemoglobin A1c percentageon 04-10-2025 HbA1c (Bld) [Mass fraction] Hemoglobin A1c percentage 4.5-6.2 [facility] Comment on above: ADA RECOMMENDED LIMI T 4.0 - 6.0ADA THERAPEUTIC TARGET < 7.0ACTION SUGGESTED> 7.0 Laboratory - Chemistry and C hemistry - challengeon 11-18-2024 Cholesterol [Mass/Vol] 210 mg/dL High <=200 Fi [facility] Cholesterol in HDL [Mass/Vol] 83 mg/dL High 40-60 [facility] Comment on above: > or =60 mg/dl - LOW CARDIOVASCULAR RISK<40 mg/dl - HIGH CARDIOVASCULAR RISK Creatinine [Mass/Vol] 1.00 mg/dL 0.55-1.02 [facility] GFR/1.73 sq M.predicted MDRD (S/P/Bld) [Vol rate/Area] mL/min/{1.73_m2} >=60 mL/min/1.7 3m 2 [facility] Glucose [Mass/Vol] 104 mg/dL 74-106 [facility] Triglyceride [Mass/Vol] 98 mg/dL <=150 F [facility] TSH Qn 0.020 m[IU]/L Low 0.358-3.74 0 [facility] No Panel Informationon 11-18 Chicken Level 0.7 mmol/L 0.5-1.2 [facility] Comment on above: A concentration of 0 .5-0.8 mmol/L is advised for long-termuse; concentrations of up to 1.2 mmol/L may be necessaryduring acute treatment. Detection Limit = 0.1 <0.1 indicates None DetectedPerformed at: - [facility] [id number] Director: Reji Williamson PhD, Phone: [phone] Serum or plasma total choles terol/high density lipoprotein (HDL) cholesterol mass yoselyn 11-18-2024 Cholesterol.total/Linda sterol in HDL [Mass ratio] Serum or plasma total cholesterol/high density lipoprotein (HDL) cholesterol mass [facility] Comment on above: 3.3 - 4.4 LOW RISK4. 4 - 7.1 AVERAGE RISK7.1 - 11.0 MODERATE RISK>11.0 HIGH RISK Ambulatory Visit Summaryon 0 3-14-2025 Ambulatory Visit Summary Ambulatory Visit Summary RAIN [...] What to do next Scheduled Follow-Up Appointments Friday. 2024 7:30 AM EDT Where: [facility] 2024 11:00 AM EDT Where: [facility] You Need to Schedule the [...] lead ECGon 08-18-2024 ECG 12 lead ECG [facility] [place] [place] [address] Electrocardiograph Report Signed Patient: Rain Sweeney MR#: [id number] 609 : 1960 Acct:[id number] Age/Sex: 64 / F ADM Date: 08/18/24 Loc: [place] Room: Type: [facility] Attending Dr: Hamilton Malone MD Ordering Provider: [...] Roberto Diaz MD 0 08/18/24 1248 Normal [facility] Ambulatory Visit Summaryon 0 08-13-2024 Ambulatory Visit Summary Ambulatory Visit Summary RAIN SWEENEY :1960 Visit Date:08/13/2024 Ambulatory [...] HAMILTON MALONE MD Where: [facility] [address], [address] [place] [address]- You Need to Schedule the Following Appointments [...] including vitamins, herbs, eye drops, creams, and rfsd-ecu-yqgcdev medicines. ??? Any problems you or family [...] [facility] - Telehe roslyn 08-13-2024 Urology Video Visit - Telehealth Urology [...] HAMILTON MALONE MD Where: [facility] [address], [address] [place] [id number]- You Need to Schedule the Following Appointments Follow Up with GABBY RAMIREZ, JATINDER VILLASENORL When: Where: Medications What How Much When [...] exa (more content not included)... Normal [facility] Urology Office/Clinic Noteon 08-06-2024 Urology Office/Clinic Note Urology Office/Clinic Note Chief Complaint 2 week follow up lyn HPI Staff 64 year old female patient here for a 6 day follow up from [facility] ER follow up from 07/31/24.Bladder scan: 915 [...] office on 08/02/24, pt was seen at [facility] ER on 07/30/24 due to not being able to urinate, had Lyn placed. Pt called our office on 07/30/24 to notify us of only dribbling small amounts, had a cysto/UD done earlier that day as well as a Lyn removed from being placed at her [facility] visit on 07/25/24 due to not [...] HAMILTON MALONE MD Where: [facility] [address], [address] [place] [address]- Medications What How Much When Instructions Unchanged [...] Office/Clinic Note Urology Office/Clinic Note Chief Complaint [facility] urinary retention HPI Staff 64 year old female patient here for a [facility] ER follow up (transferred from [facility]) for urinary retention. Consult done 07/25/24. Pt [...] urine The Urethra was dilated to: 26 Portuguese with sounds. Removal: Cystoscope is removed. The [...] Urinary retention (R33.9: Retention of urine, unspecified) [facility] ER follow up (transferred from [facility]) for urinary re (more content not included)... Normal [facility] Comment on above: Result Comment: Elec tronically Signed By: GABBY RAMIREZ, HAMILTON\.br\Date and Time Signed: 07/30/24 10:54 EST\.br\Electronically Co-Signed By: Gamaliel Moody\Date and Time Co-Signed: 07/30/24 10:50 EST General Message Officeon General Message Office General Message O ffice --- --- --- --- --- --- --- --- --- From: [place]JackieCloudChiquita cotaInvince To: RAIN SWEENEY Sent: 07/28/24 02:31:01 AM EST Subject: Discharge Summary Ready to View A summary regarding your recent visit is available in the Documents section of your health record. Normal [facility] Inpatient Patient Summaryon 07-27-2024 Inpatient Patient Summary Inpatient Patient Summary JEFFYARMAAN VANEGASNaomi CRABTREE :1960 Visit Date:07/25/2024 Inpatient Discharge Instructions Your [...] Comments: Call for followup appointment Where: [address] [facility] [place] [address] [phone] Business (1) Follow Up with SEB BARRY When: Within 5 to 7 days Comments: Call for followup appointment Where: [address] [place], [place] [phone]- Business (1) Medications What How Much When [...] % Low (07/26/24 06:03:00) BUN/Creat Ratio: 13 (12/16/24 06:03:00) MCV: 90.4 fL (07/26/24 06:03:00) Sodium [...] Anion gap [Moles/Vol] 8 mmol/L Normal 6-16 [facility] Comment on above: Performed By: #### 2 [id number] #### [facility] [address] [place] [address] Calcium [Mass/Vol] 8.4 mg/dL Low 8.9-11.1 [facility] Comment on above: Performed By: #### 2 [id number] #### [facility] [address] [place] [address] Chloride [Moles/Vol] 113 mmol/L High 101-[address] [facility] Comment on above: Performed By: #### 2 [id number] #### [facility] [address] [place] [address] CO2 [Moles/Vol] 25 mmol/L Normal 21-31 [facility] Comment on above: Performed By: #### 2 586519 #### [facility] [address] [place] [address] Creatinine [Mass/Vol] 0.9 mg/dL Normal 0.5-1.3 [facility] Comment on above: Performed By: #### 2 968123 #### [facility] [address] [place] [address] Glucose [Mass/Vol] 96 mg/dL Normal 55-199 [facility] Comment on above: Performed By: #### 2 730920 #### [facility] [address] [place] [address] Potassium [Moles/Vol] 4.5 mmol/L Normal 3.5-5.3 [facility] Comment on above: Performed By: #### 2 826148 #### [facility] [address] [place] [address] Sodium [Moles/Vol] 141 mmol/L Normal 135-145 [facility] Comment on above: Performed By: #### 2 895574 #### [facility] [address] [place] [address] Urea nitrogen [Mass/Vol] 12 mg/dL Normal 5-21 [facility] Comment on above: Performed By: #### 2 309810 #### [facility] [address] [place] [address] Urea nitrogen/Creatinine [Mass ratio] 13 No Units Normal 10-20 [facility] Comment on above: Performed By: #### 2 [id number] #### [facility] [address] [place] [address] CBC w/ Auto Diffon 07-26- 4 Basophils/100 WBC (Bld) 0.8 % Normal 0.0-2.0 [facility] Comment on above: Performed By: #### 2 616957 #### [facility] [address] [place] [address] Basophils/Leukocytes Auto (Bld) [Pure # fraction] 0.1 E9/L Normal 0.0-0.2 [facility] Comment on above: Performed By: #### 2 044702 #### [facility] [address] [place] [address] Eosinophils (Bld) [#/Vol] 0.3 E9/L Normal 0.0-0.5 [facility] Comment on above: Performed By: #### 2 988143 #### [facility] [address] [place] [address] Eosinophils/100 WBC (Bld) 4.4 % Normal 0.0-8.0 [facility] Comment on above: Performed By: #### 2 621597 #### [facility] [address] [place] [address] Erythrocyte distribution width (RBC) [Ratio] 15.7 % High 10.9-14.2 [facility] Comment on above: Performed By: #### 2 282478 #### [facility] [address] [place] [address] Hematocrit (Bld) [Volume fraction] 32.4 % Low 34.0-46.0 [facility] Comment on above: Performed By: #### 2 628597 #### [facility] [address] [place] [address] Hemoglobin (Bld) [Mass/Vol] 10.8 g/dL Low 12.0-16.0 [facility] Comment on above: Performed By: #### 2 148080 #### [facility] [address] [place] [address] Lymphocytes (Bld) [#/Vol] 2.6 E9/L Normal 1.0-4.0 [facility] Comment on above: Performed By: #### 2 291232 #### [facility] [address] [place] [address] Lymphocytes/100 WBC (Bld) 32.8 % Normal 14.0-50.0 [facility] Comment on above: Performed By: #### 2 046280 #### [facility] [address] [place] [address] MCH (RBC) [Entitic mass] 30.2 pg Normal 27.0-34.0 [facility] Comment on above: Performed By: #### 2 583866 #### [facility] [address] [place] [address] MCHC (RBC) [Mass/Vol] 33.4 g/dL Normal 31.4-36.0 [facility] Comment on above: Performed By: #### 2 975650 #### [facility] [address] [place] [address] MCV (RBC) [Entitic vol] 90.4 fL Normal 80.0-100.0 [facility] Comment on above: Performed By: #### 2 607881 #### [facility] [address] [place] [address] Monocytes (Bld) [#/Vol] 0.8 E9/L Normal 0.2-1.0 [facility] Comment on above: Performed By: #### 2 506868 #### [facility] [address] [place] [address] Neutrophils (Bld) [#/Vol] 4.1 E9/L Normal 2.0-7.5 [facility] Comment on above: Performed By: #### 2 744971 #### [facility] [address] [place] [address] Neutrophils/100 WBC (Bld) 52.1 % Normal 36.0-75.0 [facility] Comment on above: Performed By: #### 2 161609 #### [facility] [address] [place] [address] Platelet 224.0 E9/L Normal 150.0-500. 0 [facility] Comment on above: Performed By: #### 2 066676 #### [facility] [address] [place] [address] Platelet mean volume (Bld) [Entitic vol] 8.1 fL Normal 6.4-10.8 [facility] Comment on above: Performed By: #### 2 752992 #### [facility] [address] [place] [address] RBC (Bld) [#/Vol] 3.6 E12/L Low 4.3-5.9 [facility] Comment on above: Performed By: #### 2 377056 #### [facility] [address] [place] [address] WBC corrected for nucl RBC Auto (Bld) [#/Vol] 7.9 E9/L Normal 4.0-11.0 [facility] Comment on above: Performed By: #### 2 123583 #### [facility] [address] [place] [address] CHEMISTRYOrdered By: SYSTEM SYSTEM on 07-26-2024 Anion [...] 07-26-2024 Inpatient Clinical Summary Inpatient Clinical Summary [place] [address] Clinical Summary Person Information: Name: RAIN SWEENEY Age: 64 Years : 1960 Sex: Female PCP: SEB BARRY MD Marital Status: Single Race: White Ethnicity: Non- or Language: Mohawk Visit Id: Visit Reason: SEPSIS, CELLULITIS Speciality: Acuity: Enc Type: Inpatient Med Service: Medical Arrival: 07/25/2024 00:41:33 Discharge: Dispo Type: Address: [address] [place] [phone] Provider Notes: Diagnosis: 1:Abdominal pain; 2:Acute kidney [...] Referring Physician: Follow up: With: Address: When: HAMILTONANGEL MALONE [address] [place] [phone] Business (1) Within 5 to 7 days Comments: Call for followup appointment With: Address: When: SEB BARRY [address] [place] [address] [phone] [employer] (1) Within 5 to 7 days Comments: Call for followup appointment Patient Education Information: Normal [facility] Inpatient Patient Summaryon 07-26-2024 Inpatient Patient Summary Inpatient Patient Summary [address] [address] Patient Discharge Instructions PERSON INFORMATION [...] Follow up: With: Address: When: HAMILTON MALONE [address] [place] [phone] [employer] (1) Within 5 to 7 days Comments: Call for followup appointment With: Address: When: SEB BARRY [address] [place], [place] [phone] [facility] (1) Within 5 to 7 days [...] to serve you. Thank you for choosing [place] Normal [facility] Interdisciplinary Note - Javi e Manageron 07-26-2024 Interdisciplinary Note - Home Health Speech Therapist Interdisciplinary Note - Home Health Speech Therapist SW spoke with patient in room. No family in room. Patient is alert and oriented and participates in discharge planning. Patient is , lives alone. There was a consult for domestic concerns. She states she feels safe and has no domestic concerns. She reports that her neighbor Damaso is very helpful. She has a good support system and tenriism family. Her son and daughter live in [place]. Dr. Waldrop is following, see notes, saw patient earlier today. Patient was admitted on 07/25/24. Has a consult with Urology. Patient verified PCP, insurance and DME. Patient denied any needs at d/c and is anxious to return home. This patient will have neighbor transport home. Patient white board updated, and SW contact information provided. Normal [facility] Comment on above: Result Comment: Elec tronically Signed By: Jaison PADILLAW FILLER FEEDER, Paulette\.br\Date and Time Signed: 07/26/24 09:41 EST eGFRon 07-26-2024 eGFR 72 mL/min/1.73 m2 Normal >=59 [facility] Comment on above: Performed By: #### 1 [id number] ####[facility] [address] [place] [address] CBC w/ Auto Diffon 4 Basophils/100 WBC (Bld) 0.5 % Normal 0.0-2.0 [facility] Comment on above: Performed By: #### 2 321075 #### [facility] [address] [place] [address] Basophils/Leukocytes Auto (Bld) [Pure # fraction] 0.0 E9/L Normal 0.0-0.2 [facility] Comment on above: Performed By: #### 2 267463 #### [facility] [address] [place] [address] Eosinophils (Bld) [#/Vol] 0.1 E9/L Normal 0.0-0.5 [facility] Comment on above: Performed By: #### 2 944781 #### [facility] [address] [place] [address] Eosinophils/100 WBC (Bld) 0.5 % Normal 0.0-8.0 [facility] Comment on above: Performed By: #### 2 439880 #### [facility] [address] [place] [address] Erythrocyte distribution width (RBC) [Ratio] 15.3 % High 10.9-14.2 [facility] Comment on above: Performed By: #### 2 844273 #### [facility] [address] [place] [address] Hematocrit (Bld) [Volume fraction] 35.8 % Normal 34.0-46.0 [facility] Comment on above: Performed By: #### 2 854714 #### [facility] [address] [place] [address] Hemoglobin (Bld) [Mass/Vol] 11.9 g/dL Low 12.0-16.0 [facility] Comment on above: Performed By: #### 2 728977 #### [facility] [address] [place] [address] Lymphocytes (Bld) [#/Vol] 1.1 E9/L Normal 1.0-4.0 [facility] Comment on above: Performed By: #### 2 717793 #### [facility] [address] [place] [address] Lymphocytes/100 WBC (Bld) 11.3 % Low 14.0-50.0 [facility] Comment on above: Performed By: #### 2 853064 #### [facility] [address] [place] [address] MCH (RBC) [Entitic mass] 29.9 pg Normal 27.0-34.0 [facility] Comment on above: Performed By: #### 2 438771 #### [facility] [address] [place] [address] MCHC (RBC) [Mass/Vol] 33.4 g/dL Normal 31.4-36.0 [facility] Comment on above: Performed By: #### 2 558160 #### [facility] [address] [place] [address] MCV (RBC) [Entitic vol] 89.4 fL Normal 80.0-100.0 [facility] Comment on above: Performed By: #### 2 568126 #### [facility] [address] [place] [address] Monocytes (Bld) [#/Vol] 0.9 E9/L Normal 0.2-1.0 [facility] Comment on above: Performed By: #### 2 764505 #### [facility] [address] [place] [address] Neutrophils (Bld) [#/Vol] 7.9 E9/L High 2.0-7.5 [facility] Comment on above: Performed By: #### 2 262648 #### [facility] [address] [place] [address] Neutrophils/100 WBC (Bld) 78.3 % High 36.0-75.0 [facility] Comment on above: Performed By: #### 2 804760 #### [facility] [address] [place] [address] Platelet 252.0 E9/L Normal 150.0-500. 0 [facility] Comment on above: Performed By: #### 2 095271 #### [facility] [address] [place] [address] Platelet mean volume (Bld) [Entitic vol] 8.1 fL Normal 6.4-10.8 [facility] Comment on above: Performed By: #### 2 639450 #### [facility] [address] [place] [address] RBC (Bld) [#/Vol] 4.0 E12/L Low 4.3-5.9 [facility] Comment on above: Performed By: #### 2 606404 #### [facility] [address] [place] [address] WBC corrected for nucl RBC Auto (Bld) [#/Vol] 10.1 E9/L Normal 4.0-11.0 [facility] Comment on above: Performed By: #### 2 976269 #### [facility] [address] [place] [address] CHEMISTRYOrdered By: Elisabeth Hoffman on 07-25-2024 Albumin [...] Comment on above: Performed By: #### 2 739484 #### [facility] [address] [place] [address] Albumin/Globulin (S) [Mass conc ratio] 1.3 Normal 1.1-2.2 [facility] Comment on above: Performed By: #### 2 124377 #### [facility] [address] [place] [address] ALP [Catalytic activity/Vol] 78 Int._Unit/L Normal 21-98 [facility] Comment on above: Performed By: #### 2 253244 #### [facility] [address] [place] [address] ALT No additional P-5'-P [Catalytic activity/Vol] 9 Int._Unit/L Normal 6-46 [facility] Comment on above: Performed By: #### 2 653528 #### [facility] [address] [place] [address] Anion gap [Moles/Vol] 8 mmol/L Normal 6-16 [facility] Comment on above: Performed By: #### 2 383159 #### [facility] [address] [place] [address] AST [Catalytic activity/Vol] 14 Int._Unit/L Normal 5-43 [facility] Comment on above: Performed By: #### 2 291360 #### [facility] [address] [place] [address] Bilirubin [Mass/Vol] 0.6 mg/dL Normal 0.0-1.1 [facility] Comment on above: Performed By: #### 2 519222 #### [facility] [address] [place] [address] Calcium [Mass/Vol] 8.4 mg/dL Low 8.9-11.1 [facility] Comment on above: Performed By: #### 2 [id number] #### [facility] [address] [place] [address] Chloride [Moles/Vol] 110 mmol/L Normal 101-[address] [facility] Comment on above: Performed By: #### 2 [id number] #### [facility] [address] [place] [address] CO2 [Moles/Vol] 24 mmol/L Normal 21-31 [facility] Comment on above: Performed By: #### 2 [id number] #### [facility] [address] [place] [address] Creatinine [Mass/Vol] 1.8 mg/dL High 0.5-1.3 [facility] Comment on above: Performed By: #### 2 [id number] #### [facility] [address] [place] [address] Globulin (S) [Mass/Vol] 2.8 g/dL Normal 1.4-4.0 [facility] Comment on above: Performed By: #### 2 [id number] #### [facility] [address] [place] [address] Glucose [Mass/Vol] 120 mg/dL Normal 55-199 [facility] Comment on above: Performed By: #### 2 [id number] #### [facility] [address] [place] [address] Potassium [Moles/Vol] 5.0 mmol/L Normal 3.5-5.3 [facility] Comment on above: Performed By: #### 2 [id number] #### [facility] [address] [place] [address] Protein [Mass/Vol] 6.3 g/dL Normal 6.0-7.8 [facility] Comment on above: Performed By: #### 2 [id number] #### [facility] [address] [place] [address] Sodium [Moles/Vol] 137 mmol/L Normal 135-145 [facility] Comment on above: Performed By: #### 2 [id number] #### [facility] [address] [place] [address] Urea nitrogen [Mass/Vol] 23 mg/dL High 5-21 [facility] Comment on above: Performed By: #### 2 [id number] #### [facility] [address] [place] [address] Urea nitrogen/Creatinine [Mass ratio] 13 No Units Normal 10-20 [facility] Comment on above: Performed By: #### 2 [id number] #### [facility] [address] [place] [address] HEMATOLOGYOrdered By: SYSTEM SYSTEM on 07-25-2024 Basophils/100 [...] challengeon 07-25-2024 Lactate [Moles/Vol] 1.1 mmol/L 0.4-2.0 [facility] Lactic Acidon 07-25-2024 Lactic Acid Lvl 0.8 mmol/L Normal 0.5-2.2 [facility] Comment on above: Performed By: #### 2 [id number] #### [facility] [address] [place] [address] Chicken Riccardo 07-25-2024 Chicken Lvl .3 mmol/L Low 1.0-1.2 [facility] Comment on above: Result Comment: 12 h our post dose concentration: 1.0-1.2 mmol/L Minimum effective concentration: 0.6 mmol/L Values >1.5 mmol/L 12 hours after dose indicates a significant risk of intoxication. Performed By: #### 4 [id number] #### [facility] [address] [place] [address] Reference Laboratory Testing Ordered By: SYSTEM SYSTEM on 07-25-2024 Chicken Lvl 0.3 mmol/L Low 1.0 - 1.2 mmol/L [facility] Comment on above: Interpretive Data: 1 2 hour post dose concentration: 1.0-1.2 mmol/L Minimum effective concentration: 0.6 mmol/L Values >1.5 mmol/L 12 hours after dose indicates a significant risk of intoxication. UA with Cult Rflxon 07-25-20 24 Bacteria Auto Ql (U) Trace Normal Trace Fish er [facility] Comment on above: Performed By: #### 4 [id number] #### [facility] [address] [place] [address] Bilirubin Ql (U) Negative Normal Negative [facility] Comment on above: Performed By: #### 4 [id number] #### [facility] [address] [place] [address] Clarity (U) Clear Normal Clear [facility] Comment on above: Performed By: #### 4 [id number] #### [facility] [address] [place] [address] Color (U) Colorless Abnormal Yellow [facility] Comment on above: Result Comment: Micr oscopic readings are only performed on those samples that meet specific criteria set forth by [facility]. Performed By: #### 4 [id number] #### [facility] [address] [place] [address] Epithelial cells.squamous Auto (Urine sed) [#/Area] 0-2 Invalid Interpretation Code [facility] Comment on above: Performed By: #### 4 [id number] #### [facility] [address] [place] [address] Glucose Ql (U) Negative Normal Negative [facility] Comment on above: Performed By: #### 4 [id number] #### [facility] [address] [place] [address] Hemoglobin Auto test strip (U) [Mass/Vol] 2+ mg/dL Abnormal Negative [facility] Comment on above: Performed By: #### 4 [id number] #### [facility] [address] [place] [address] Ketones Auto test strip Ql (U) Trace Abnormal Negative [facility] Comment on above: Performed By: #### 4 [id number] #### [facility] [address] [place] [address] Leukocyte esterase Auto test strip Ql (U) Negative Normal Negative [facility] Comment on above: Performed By: #### 4 [id number] #### [facility] [address] [place] [address] Mucus Auto Ql (U) Negative Normal Negative [facility] Comment on above: Performed By: #### 4 [id number] #### [facility] [address] [place] [address] Nitrite Auto test strip Ql (U) Negative Normal Negative [facility] Comment on above: Performed By: #### 4 [id number] #### [facility] [address] [place] [address] pH (U) 6.0 [pH] Invalid Interpretation Code 5.0-9.0 [facility] Comment on above: Performed By: #### 4 [id number] #### [facility] [address] [place] [address] Protein Ql (U) Negative Normal Negative [facility] Comment on above: Performed By: #### 4 [id number] #### [facility] [address] [place] [address] RBC Ql (U) 4-20 Abnormal 0-3 [facility] Comment on above: Performed By: #### 4 [id number] #### [facility] [address] [place] [address] Specific gravity (U) [Rel density] 1.006 Invalid Interpretation Code 1.005-1.03 0 [facility] Comment on above: Performed By: #### 4 [id number] #### [facility] [address] [place] [address] Urobilinogen (U) [Mass/Vol] Negative Normal Negative [facility] Comment on above: Performed By: #### 4 [id number] #### [facility] [address] [place] [address] WBC Auto (Urine sed) [#/Area] 0-5 Normal 0-5 [facility] Comment on above: Performed By: #### 4 [id number] #### [facility] [address] [place] [address] Type of Urine collection method Clean Catch Normal [facility] Comment on above: Performed By: #### 4 [id number] #### [facility] [address] [place] [address] URINALYSISOrdered By: SYSTEM SYSTEM on 07-25-2024 Bacteria Auto Ql (U) Trace /HPF Normal Trace/HPF [facility] UA Auto SS Bilirubin Ql (U) Negative Normal Negativemg /dL [facility] UA Auto SS Clarity (U) Clear [...] 2+ mg/dL Invalid Interpretation Code Negativemg /dL [facility] UA Auto SS Ketones Auto test [...] Protein Ql (U) Negative Normal Negativemg /dL [facility] UA Auto SS RBC Ql (U) 4-20 graded/HPF Invalid Interpretation Code 0-3graded/ HPF [facility] UA Auto SS Specific gravity (U) [Rel density] 1.006 *NA* (07/25/24 10:15 AM) Invalid Interpretation Code 1.005 - 1.030 [facility] UA Auto SS Urobilinogen (U) [Mass/Vol] Negative Normal Negativemg /dL [facility] UA Auto SS WBC Auto (Urine sed) [#/Area] 0-5 graded/HPF Normal 0-5graded/ HPF [facility] UA Auto SS URINALYSISOrdered By: Emmanuel MARIA on 07-25-2024 UA Spec Desc Clean Catch (07/25/24 10:15 AM) Normal [facility] UA Auto SS Work Phone: eGFRon 07-25-2024 eGFR 31 mL/min/1.73 m2 Low >=59 [facility] Comment on above: Performed By: #### 1 [id number] #### [facility]ep [facility] [address] [place] [address] Basophils Auto (Bld) [#/Vol] on 07-24-2024 Basophils (Bld) [#/Vol] Automated basophil count 0.0-0.1 [facility] Basophils/100 WBC Auto (Bld) on 07-24-2024 Basophils/100 WBC (Bld) Automated basophil % 0. 2-2.0 [facility] Eosinophils/100 WBC Auto (Bl d)on 07-24-2024 Eosinophils/100 WBC (Bld) Automated eosinophil % Low 0.9-7.0 [facility] Erythrocyte distribution wid th Auto (RBC) [Ratio]on 07-24-2024 Erythrocyte distribution width (RBC) [Ratio] Erythrocyte distribution width [Ratio] by Automated count 11.0-15.0 [facility] Estimated glomerular filtrat ion rate (GFR) non- Americanon 07-24-2024 GFR/1.73 sq M.predicted among non-blacks MDRD (S/P/Bld) [Vol rate/Area] Estimated glomerular filtration rate (GFR) non- Low >=60 mL/min/1.7 3m 2 [facility] Hematocrit Auto (Bld) [Volum e fraction]on 07-24-2024 Hematocrit (Bld) [Volume fraction] Hematocrit [Volume Fraction] of Blood by Automated count 36.0-48.0 [facility] Hemoglobin [Mass/volume] in Bloodon 07-24-2024 Hemoglobin (Bld) [Mass/Vol] Hemoglobin [Mass/volume] in Blood 12.0-16.0 [facility] - Chemistry and C hemistry - challengeon 07-24-2024 Bilirubin Ql (U) Negative NEGATIVE [facility] Glucose (U) [Mass/Vol] Negative NEGATIVE [facility] Ketones Ql (U) Negative NEGATIVE [facility] pH (U) 6.0 [pH] 5.0-9.0 [facility] Specific gravity (U) [Rel density] 1.010 1.005-1.02 5 [facility] Urobilinogen Qn (U) 0.2 {Rachell'U}/dL 0.2-1.0 [facility] Calcium [Mass/Vol] 8.8 mg/dL 8.5-10.1 [facility] Chloride [Moles/Vol] 96 mmol/L Low 98-107 [facility] CO2 [Moles/Vol] 21.6 mmol/L 21.0-32.0 [facility] Creatinine [Mass/Vol] 4.00 mg/dL High 0.55-1.02 [facility] GFR/1.73 sq M.predicted MDRD (S/P/Bld) [Vol rate/Area] 14 mL/min/{1.73_m2} Low >=60 mL/min/1.7 3m 2 [facility] Glucose [Mass/Vol] 158 mg/dL High 74-106 [facility] Lactate [Moles/Vol] 2.2 mmol/L Critically high 0.4-2.0 [facility] Comment on above: RESULTS CALLED TO ER Teresita Banda RN @BY Jerel Mckeon MLT at 1909 Potassium [Moles/Vol] 4.3 mmol/L 3.5-5.1 [facility] Sodium [Moles/Vol] 131 mmol/L Low 136-145 [facility] Urea nitrogen [Mass/Vol] 36.0 mg/dL High 7.0-18.0 [facility] Urea nitrogen/Creatinine [Mass ratio] 9.0 mg/mg [facility] - Hematology and Cell countson 07-24-2024 Immature granulocytes/100 WBC (Bld) 1.8 % High 0.0-0.5 [facility] - Specimen inform ationon 07-24-2024 Appearance (U) CLEAR CLEAR [facility] Color (U) LT. YELLOW YELLOW [facility] - Urinalysison Leukocyte esterase Test strip Ql (U) TRACE Abnormal NEGATIVE [facility] Mucus Ql (Urine sed) NONE SEEN NONE SEEN [facility] Nitrite Ql (U) Negative NEGATIVE [facility] Protein Ql (U) Negative NEG/TRACE [facility] Leukocytes [#/volume] correc sheeba for nucleated erythrocytes in Blood by Automated counon 07-24-2024 WBC corrected for nucl RBC Auto (Bld) [#/Vol] Leukocytes [#/volume] corrected for nucleated erythrocytes in Blood by Automated coun High 4.0-11.0 [facility] Lymphocytes Auto (Bld) [#/Vo l]on 07-24-2024 Lymphocytes (Bld) [#/Vol] Lymphocytes [#/volume] in Blood by Automated count 1.2-3.8 [facility] Lymphocytes/100 WBC Auto (Bl d)on 07-24-2024 Lymphocytes/100 WBC (Bld) Lymphocytes/100 leukocytes in Blood by Automated count Low 20.5-60.0 [facility] MCH Auto (RBC) [Entitic mass ]on 07-24-2024 MCH (RBC) [Entitic mass] MCH [Entitic mass] by Automated count 26.7-34.0 [facility] MCHC Auto (RBC) [Mass/Vol]on 07-24-2024 MCHC (RBC) [Mass/Vol] MCHC [Mass/volume] by Automated count 29.9-35.2 [facility] MCV Auto (RBC) [Entitic vol] on 07-24-2024 MCV (RBC) [Entitic vol] MCV [Entitic vol ume] by Automated count 81.0-99.0 [facility] Monocytes Auto (Bld) [#/Vol] on 07-24-2024 Monocytes (Bld) [#/Vol] Automated blood monocyte count High 0.3-0.8 [facility] Monocytes/100 WBC Auto (Bld) on 07-24-2024 Monocytes/100 WBC (Bld) Automated monocyte % 1. 7-12.0 [facility] Neutrophils Auto (Bld) [#/Vo l]on 07-24-2024 Neutrophils (Bld) [#/Vol] Neutrophils [#/volume] in Blood by Automated count High 1.4-6.5 [facility] Neutrophils/100 WBC Auto (Bl d)on 07-24-2024 Neutrophils/100 WBC (Bld) Automated neutrophil % High 43.0-75.0 [facility] No Panel Informationon 07-24 Urine Bacteria TRACE #/HPF Abnormal NONE SEEN [facility] Urine Culture Reflexed NO [facility] Urine Microscopic Review YES [facility] Urine Occult Blood LARGE Abnormal NEGATIVE [facility] Urine Other Casts NONE SEEN #/LPF NONE SEEN [facility] Urine Other Crystals None Seen #/HPF None Seen [facility] Urine RBC 20-50 #/HPF Abnormal 0-2 [facility] Urine Squamous Epithelial Cells RARE #/LPF NONE/RARE [facility] Urine WBC 0-2 #/HPF Abnormal NONE SEEN [facility] Eosinophils # (Auto) 0.1 10 3/uL 0.0-0.7 [facility] Immature Granulocyte # (Auto) 0.26 10 3/uL High 0.00-0.03 [facility] Platelet mean volume Auto (B ld) [Entitic vol]on 07-24-2024 Platelet mean volume (Bld) [Entitic vol] Platelet mean volume [Entitic volume] in Blood by Automated count 9.5-13.5 [facility] Platelets Auto (Bld) [#/Vol] on 07-24-2024 Platelets (Bld) [#/Vol] Platelets [#/vol ume] in Blood by Automated count 150-450 [facility] RBC Auto (Bld) [#/Vol]on RBC (Bld) [#/Vol] Erythrocytes [#/volu me] in Blood by Automated count 4.20-5.40 [facility] Serum or plasma anion gap de terminationon 07-24-2024 Anion gap [Moles/Vol] Serum or plasma an ion gap determination [facility] Main OR Intraoperative Recor don 07-23-2024 Main OR Intraoperative Record Main OR Intraoperative Record IntraOp Document Type FT Summary Primary Physician: HAMILTON MALONE MD Finalized Date/Time: 07/23/24 09:40:12 Pt. Name: RAIN SWEENEY LEYDA Mi/Sex: 1960 Female Med Rec #: [id number] Physician: HAMILTON MALONE MD Financial #: [id number] Pt. Type: A Room/Bed: [place] [address] Admit/Disch: 07/22/24 05:26:39 - 07/22/24 12:30:16 Institution: [...] MD, Yuan TERRAZAS, Scooby VILLASENOR Role Performed GEOTHERMAL PRODUCTION MANAGER Surgeon - Primary TEST TECH/SA Time In 07/22/24 07:38:00 07/22/24 07:38:00 07/22/24 07:38:00 Time Out 07/22/24 09:07:00 07/22/24 09:01:00 07/22/24 09:07:00 Procedure TVT SLING(.) TVT SLING(.) TVT SLING(.) Comments DR. BALLESTEROS VEHICLE TRIMMER ASSIST Last Modified By: Terri Glynn Ii, Alfons Ii F Letrondo, Alfons Ii F 07/22/24 09:12:19 07/22/24 09:12:19 07/22/24 09:12:19 Entry 4 Entry 5 Entry 6 Case Attendee Jared DE LA ROSA, Alvin Walsh Alfons Ii F Role Performed Scrub - Primary Staff - Other Ic Designer [employer] - Primary Time In 07/22/24 07:38:00 07/22/24 [...] ACE MCGOVERN STUDENT IS IN ATTENDANCE. /PINEDA OROPEZAfood operations manager Protocols FT Pre-Care Text: Implements protective measures [...] Discharge Instructionson Discharge Instructions Discharge Instruc tions TESFAYERAIN OTERO :1960 Visit Date:07/22/2024 Inpatient Discharge Instructions Your [...] Comments: 2 weeks Where: [address] [place] [address]- [phone] Business (1) Medications What How Much When Instructions Next Dose New docusate (Colace 50 mg oral capsule) 1 Capsules By Mouth 2 times a day as needed for for constipation Pickup at [facility]/pharmacy #[id number] New oxycodone (Roxicodone 5 mg Tab) 1 Tablets By Mouth Every 6 hours as needed for for pain Pickup at [facility]/pharmacy #[id number] Changed venlafaxine 225 [...] Once a day (at bedtime) Pharmacy Information [facility]/pharmacy #[id number]: [address], [place] [phone] Test Results No qualifying data available. Allergies [...] Other SUPRAPUBIC MID-URETHRAL SLING 07/22/2024 Education [employer] [place], [place] Ambrose Dorantes M.D. TVT DISCHARGE INSTRUCTIONS [...] may have given you. Surgeon???s Phone number: [phone] Surgeon???s Written Instructions: 1. During the daytime hours empty (more content not included)... Normal [facility] Comment on above: Result Comment: Elec tronically Signed By: Stephanie Pressley RN\.br\Date and Time Signed: 07/22/24 09:47 EST Inpatient Patient Summaryon 07-22-2024 Inpatient Patient Summary Inpatient Patient Summary [place] [id number] [facility] Clinical Discharge Instructions PERSON INFORMATION Name: RAIN SWEENEY PHYSICIANS Admitting Physician: HAMILTON MALONE MD Attending Physician: HAMILTON MALONE MD PCP: SEB BARRY MD Discharge Diagnosis: Comment: PATIENT EDUCATION INFORMATION Instructions: Cook - TVT Discharge Instructions(CUSTOM); Post Op Patient Instructions - FT (CUSTOM) Medication Leaflets: Follow up: With: Address: When: HAMILTON MALONE [address] [facility] [place] [phone] Business (1) Comments: 2 weeks MEDICATION LIST New Medications [id number], [address], [place] [phone], [phone] docusate (Colace 50 mg oral capsule) 1 [...] SWEENEY Hiwot/Sex: 1960 Female Med Rec #: [id number] Physician: HAMILTON MALONE MD Financial #: [id number] Pt. Type: A Room/Bed: [place] [address] Admit/Disch: 07/22/24 05:26:39 - Institution: Case Times [...] MD Finalized Date/Time: 07/22/24 12:32:48 Pt. Name: TESFAYEBRANDENRAIN./Sex: 1960 Female Med Rec #: [id number] Physician: HAMILTON MALONE MD Financial #: [id number] Pt. Type: A Room/Bed: [place] [address] Admit/Disch: 07/22/24 05:26:39 - Institution: Case Times [...] RAIN SWEENEY/Sex: 1960 Female Med Rec #: [id number] Physician: HAMILTON MALONE MD Financial #: [id number] Pt. Type: A Room/Bed: [place] [address] Admit/Disch: 07/22/24 05:26:39 - Institution: Case Times [...] removed in preparation for cystoscopy. The 17 Portuguese cystoscope with the 70 degree lens in [...] given a prescription for Cipro and for Healy. The patient will follow up in the office in 2 weeks. [facility] Comment on above: Result Comment: Elec tronically Signed By: GABBY RAMIREZ, HAMILTON\.marian\Date and Time Signed: 07/22/24 10:26 EST Outpatient Surgery Discharge Instructionon 07-22-2024 Outpatient Surgery Discharge Instruction Outpatient Surgery Discharge Instruction [place] [id number] Patient Discharge Instructions PERSON INFORMATION Name: RAIN SWEENEY Date of : 1960 Current Date: 07/22/2024 10:28:02 PHYSICIANS Admitting Physician: HAMILTON MALONE MD Discharge Diagnosis: ARMAAN SWEENEYA LEYDA has been given the following list of [...] SWEENEY, have received the attached patient education materials/instructions and have verbalized understanding: May we do a follow up call? Yes No I was present when discharge instructions were given Patient Signature ___ Date Clinican/Nurse Signature Date Follow up: With: Address: When: HAMILTON MALONE [address] [place] [phone] Business (1) Comments: 2 weeks Pharmacy Information: You may receive a survey from [employer] asking you to rate your care experience. Your feedback is important and will help us understand what we do well and how we can improve the quality of care we provide to you, your loved ones and our community. It???s an honor to serve you. Thank you for choosing [facility] HERE ARE THE MEDICATION CHANGES THAT OCCURRED DURING YOUR HOSPITAL STAY New Medications [id number], [address], [place] [phone], [phone] docusate (Colace 50 mg oral capsule) 1 [...] day (at bedtime). PATIENT EDUCATION INFORMATION Instructions: [facility], [place] Ambrose Dorantes M.D. TVT DISCHARGE INSTRUCTIONS The [...] may have given you. Surgeon???s Phone number: [phone] Surgeon???s Written Instructions: 1. During the daytime hours empty your leg bag every 3-4 hours. 2. No lifting over 10 pounds for 6 weeks. 3. There is no restriction regarding use of stairs. 4. You may drive (more content not included)... Normal [facility] Ambulatory Visit Summaryon 09-04-2023 Ambulatory Visit Summary Ambulatory Visit Summary [...] including vitamins, herbs, eye drops, creams, and [id number] medicines. ??? Any problems you or family [...] Reminders Reminders From: Dorothy Castro To: SERENA Womack Nktaneshaah; Sent: 07/05/2024 10:04:30 EST Show up: 08/04/2024 10:04:00 EST Subject: Cysto Due Date/Time: 08/04/2024 10:04:00 EST Reminder Message Cysto in 3 mos. Normal [facility] Urology Office/Clinic Noteon 07-05-2024 Urology Office/Clinic [...] with voice recognition artificial intelligence software, specifically [employer], Platogo and or [employer]. Substitutions may have occurred due to the [...] Surgical Pathology Reporton 07-01-2024 Surgical Pathology Report [facility] [address] [place] [address]- Surgical Pathology Report Collected Date/Time: 06/24/2024 08:47 [...] is entirely submitted in one cassette. (DC) DC:[facility] Microscopic Description Microscopic examination performed unless gross only specified. The use of one or more reagents in the above tests is regulated as an analyte specific reagent (ASR). The test or tests are ordered following initial H&E microscopic examination. The performance characteristics were determined by the [facility] Surgical Pathology. They have not been [...] recognition technology and might contain unintended computerized corporate vp advertising & online errors. Normal [facility] Comment on above: Performed By: #### 4 [id number] #### [facility] [address] [place] [address] Performed By: #### 4 [id number] ####[facility] [id number] [place] [address] Main OR Intraoperative Recor don 06-25-2024 Main OR Intraoperative Record Main OR Intraoperative Record IntraOp Document Type FT Summary Primary Physician: HAMILTON MALONE MD Finalized Date/Time: 06/25/24 10:12:31 Pt. Name: RAIN SWEENEY/Sex: 1960 Female Med Rec #: [id number] Physician: HAMILTON MALONE MD Financial #: [id number] Pt. Type: A Room/Bed: [place] [address] Admit/Disch: 06/24/24 06:38:13 - 06/24/24 10:15:00 Institution: [...] 1 Entry 2 Entry 3 Case Attendee Azam Kohli MD, Mey SUNG, Dolores Cooney Role Performed Anesthesiologist Surgeon - Primary Ic Designer [employer] - Primary Passenger Service Manager Time In 06/24/24 08:25:00 06/24/24 08:32:00 06/24/24 08:25:00 Time Out 06/24/24 08:46:00 06/24/24 08:39:00 06/24/24 08:46:00 Procedure CYSTOSCOPY TURB(.) CYSTOSCOPY TURB(.) CYSTOSCOPY TURB(.) Comments DR. AGUILAR SUPERVISING Last Modified By: Flash RN, Amina Vidales RN, Amina Vidales RN, Amina Reyes 06/24/24 08:57:51 06/24/24 08:57:51 06/24/24 08:57:51 Entry 4 Entry 5 Entry 6 Case Attendee Flash SUNG, Gertrude Stallworth Terry T Role Performed Ic Designer [employer] - Primary Scrub - Primary Staff - [...] Participants GABBY Whelan MD, Mey VILLASENOR RN, Flash Estrada RN, [...] and tissue Entry 1 Skin Integrity Intact, [place], Warm, & Skin Abnormality No Dry Outcomes [...] When: Comments: in 2 weeks Where: [address], [place] [phone] Business (1) Medications What How Much When Instructions Next Dose New phenazopyridine (Pyridium 100 mg Tab) 1 Tablets By Mouth 3 times a day Duration: 3 Days Pickup at [facility]/pharmacy #[id number] Unchanged lithium (lithium 300 mg oral tablet) 3 Tablets By Mouth At bedtime Unchanged omeprazole (omeprazole 20 mg Cap-DR) 1 Capsules By Mouth Every day Unchanged oxcarbazepine (oxcarbazepine 300 mg Tab) 1 Tablets By Mouth Every day Unchanged tretinoin topical (tretinoin Top 0.1% Crm) 1 Application Topical Once a day (at bedtime) Unchanged venlafaxine as directed Pharmacy Information [facility]/pharmacy #[id number]: [address], [place] [phone] Education Materials Cystoscopy ??? Voiding after the [...] yet, please contact Health Information Management at [phone] to get signed up today. Patient (more content not included)... Normal [facility] Comment on above: Result Comment: Elec tronically Signed By: Chayo SUNG, Reed Brandon\.br\Date and Time Signed: 06/24/24 08:53 EST Inpatient Patient Summaryon 06-24-2024 Inpatient Patient Summary Inpatient Patient Summary [place] [id number] [facility] Clinical Discharge Instructions PERSON INFORMATION [...] MD Finalized Date/Time: 06/24/24 09:24:28 Pt. Name: ARMAAN SWEENEYA LEYDAHyun Anderson./Sex: 1960 Female Med Rec #: [id number] Physician: HAMILTON MALONE MD Financial #: [id number] Pt. Type: A Room/Bed: [facility]/ Admit/Disch: 06/24/24 06:38:13 - Institution: Case [...] Signed By: Carli Good RN 06/24/24 09:24 Normal [facility] Main OR PACU II Recordon Main OR PACU II Record Main OR PACU II R ecord PACU Phase II Document Type FT Summary Primary Physician: HAMILTON MALONE MD Finalized Date/Time: 06/24/24 10:19:29 Pt. Name: TESFAYEBRANDENRAIN/Sex: 1960 Female Med Rec #: [id number] Physician: HAMILTON MALONE MD Financial #: [id number] Pt. Type: A Room/Bed: [place] [address] Admit/Disch: 06/24/24 06:38:13 - Institution: Case Times [...] Domingo RN Document Signatures Signed By: Reed Domigno RN 06/24/24 10:19 Normal [facility] Main OR Preoperative Recordo n 06-24-2024 Main OR Preoperative Record Main OR Preoperative Record PreOp Document Type FT Summary Primary Physician: HAMILTON MALONE MD Finalized Date/Time: 06/24/24 08:58:11 Pt. Name: RAIN SWEENEY /Sex: 1960 Female Med Rec #: [id number] Physician: HAMILTON MALONE MD Financial #: [id number] Pt. Type: A Room/Bed: [place] [address] Admit/Disch: 06/24/24 06:38:13 - Institution: Case Times [...] Signed By: Amina Vidales RN 06/24/24 08:58 [facility] Operative Reporton Operative Report Operative [...] in the room agreed. A well-lubricated 22 Portuguese cystoscopic sheath with a 30 degree lens [...] Surgery Discharge Instruction Outpatient Surgery Discharge Instruction [place] [address] Patient Discharge Instructions PERSON INFORMATION Name: RAIN [...] SWEENEY, have received the attached patient education materials/instructions and have verbalized understanding: May we do a follow up call? Yes No I was present when discharge instructions were given Patient Signature ___ Date Clinican/Nurse Signature Date Follow up: Pharmacy Information: You may receive a survey from [employer] asking you to rate your care experience. Your feedback is important and will help us understand what we do well and how we can improve the quality of care we provide to you, your loved ones and our community. It???s an honor to serve you. Thank you for choosing [facility] HERE ARE THE MEDICATION CHANGES THAT OCCURRED [...] Anion gap [Moles/Vol] 11 mmol/L Normal 6-16 [facility] Comment on above: Performed By: #### 2 [id number] #### [facility] [address] [place] [address] Calcium [Mass/Vol] 8.7 mg/dL Low 8.9-11.1 [facility] Comment on above: Performed By: #### 2 [id number] #### [facility] [address] [place] [address] Chloride [Moles/Vol] 105 mmol/L Normal 101-111 [facility] Comment on above: Performed By: #### 2 [id number] #### [facility] [address] [place] [address] CO2 [Moles/Vol] 26 mmol/L Normal 21-31 [facility] Comment on above: Performed By: #### 2 [id number] #### [facility] [address] [place] [address] Creatinine [Mass/Vol] 1.0 mg/dL Normal 0.5-1.3 [facility] Comment on above: Performed By: #### 2 [id number] #### [facility] [address] [place] [address] Glucose [Mass/Vol] 89 mg/dL Normal 55-199 [facility] Comment on above: Performed By: #### 2 [id number] #### [facility] [address] [place] [address] Potassium [Moles/Vol] 4.0 mmol/L Normal 3.5-5.3 [facility] Comment on above: Performed By: #### 2 [id number] #### [facility] [address] [place] [address] Sodium [Moles/Vol] 138 mmol/L Normal 135-145 [facility] Comment on above: Performed By: #### 2 [id number] #### [facility] [address] [place] [address] Urea nitrogen [Mass/Vol] 18 mg/dL Normal 5-21 [facility] Comment on above: Performed By: #### 2 [id number] #### [facility] [address] [place] [address] Urea nitrogen/Creatinine [Mass ratio] 18 No Units Normal 10-20 [facility] Comment on above: Performed By: #### 2 [id number] #### [facility] [address] [place] [address] CBC w/ Auto Diffon 4 Basophils/100 WBC (Bld) 0.9 % Normal 0.0-2.0 [facility] Comment on above: Performed By: #### 2 [id number] #### [facility] [address] [place] [address] Basophils/Leukocytes Auto (Bld) [Pure # fraction] 0.1 E9/L Normal 0.0-0.2 [facility] Comment on above: Performed By: #### 2 [id number] #### [facility] [address] [place] [address] Eosinophils (Bld) [#/Vol] 0.3 E9/L Normal 0.0-0.5 [facility] Comment on above: Performed By: #### 2 [id number] #### [facility] [address] [place] [address] Eosinophils/100 WBC (Bld) 4.5 % Normal 0.0-8.0 [facility] Comment on above: Performed By: #### 2 [id number] #### [facility] [address] [place] [address] Erythrocyte distribution width (RBC) [Ratio] 15.1 % High 10.9-14.2 [facility] Comment on above: Performed By: #### 2 [id number] #### [facility] [address] [place] [address] Hematocrit (Bld) [Volume fraction] 46.2 % High 34.0-46.0 [facility] Comment on above: Performed By: #### 2 069085 #### [facility] [address] [place] [address] Hemoglobin (Bld) [Mass/Vol] 15.4 g/dL Normal 12.0-16.0 [facility] Comment on above: Performed By: #### 2 788983 #### [facility] [address] [place] [address] Lymphocytes (Bld) [#/Vol] 2.2 E9/L Normal 1.0-4.0 [facility] Comment on above: Performed By: #### 2 738940 #### [facility] [address] [place] [address] Lymphocytes/100 WBC (Bld) 28.8 % Normal 14.0-50.0 [facility] Comment on above: Performed By: #### 2 052298 #### [facility] [address] [place] [address] MCH (RBC) [Entitic mass] 29.8 pg Normal 27.0-34.0 [facility] Comment on above: Performed By: #### 2 302170 #### [facility] [address] [place] [address] MCHC (RBC) [Mass/Vol] 33.2 g/dL Normal 31.4-36.0 [facility] Comment on above: Performed By: #### 2 571636 #### [facility] [address] [place] [address] MCV (RBC) [Entitic vol] 89.5 fL Normal 80.0-100.0 [facility] Comment on above: Performed By: #### 2 [id number] #### [facility] [address] [place] [address] Monocytes (Bld) [#/Vol] 0.7 E9/L Normal 0.2-1.0 [facility] Comment on above: Performed By: #### 2 494352 #### [facility] [address] [place] [address] Neutrophils (Bld) [#/Vol] 4.3 E9/L Normal 2.0-7.5 [facility] Comment on above: Performed By: #### 2 [id number] #### [facility] [address] [place] [address] Neutrophils/100 WBC (Bld) 56.9 % Normal 36.0-75.0 [facility] Comment on above: Performed By: #### 2 195580 #### [facility] [address] [place] [address] Platelet mean volume (Bld) [Entitic vol] 8.4 fL Normal 6.4-10.8 [facility] Comment on above: Performed By: #### 2 240051 #### [facility] [address] [place] [address] Platelets (Bld) [#/Vol] 265.0 E9/L Normal 150. 0-500. 0 [facility] Comment on above: Performed By: #### 2 [id number] #### [facility] [address] [place] [address] RBC (Bld) [#/Vol] 5.2 E12/L Normal 4.3-5.9 [facility] Comment on above: Performed By: #### 2 [id number] #### [facility] [address] [place] [address] WBC corrected for nucl RBC Auto (Bld) [#/Vol] 7.5 E9/L Normal 4.0-11.0 [facility] Comment on above: Performed By: #### 2 [id number] #### [facility] [address] [place] [address] CHEMISTRYOrdered By: SYSTEM SYSTEM on 06-18-2024 Anion [...] 30.9 s Normal 25.1 - 36.5 second(s) [facility] Auto Coag Comment on above: Interpretive Data: [...] the same coagulation reagent and instrumentation as [facility]. Currently there are no coagulation studies available worldwide for children to 14 days, and no normal ranges. Heparin therapeutic range (represented by Anti-Factor Xa activity of 0.2 - 0.4 U/mL) corresponds to PTT of 56.6 - 109.0 sec. INR Coag (PPP) [Relative time] 1.02 {INR} Invalid Interpretation Code [facility] Comment on above: Interpretive Data: I NR results are specifically intended to assess patients stabilized on long-term Anticoagulation therapy suggested INR s Less Intensive Anticoagulation 2.0 3.0 Conventional Range 3.0 4.5 PT Coag (PPP) [Time] 11.4 s Normal 9.4 - 1 2.5 second(s) [facility] Comment on above: Interpretive Data: [...] the same coagulation reagent and instrumentation as [facility]. Currently there are no coagulation studies available [...] the same coagulation reagent and instrumentation as [facility]. Currently there are no coagulation studies available worldwide for children to 14 days, and no normal ranges. Heparin therapeutic range (represented by Anti-Factor Xa activity of 0.2 - 0.4 U/mL) corresponds to PTT of 56.6 - 109.0 sec. Performed By: #### 1 [id number] ####[facility] [address] [place] [address] INR Coag (PPP) [Relative time] 1.02 {INR} Invalid Interpretation Code [facility] Comment on above: Result Comment: INR results are specifically intended to assess patients stabilized on long-term Anticoagulation therapy suggested INR???s ???Less Intensive Anticoagulation??? 2.0 ??? 3.0 Conventional Range 3.0 ??? 4.5 Performed By: #### 1 [id number] ####[facility] [address] [place] [address] PT Coag (PPP) [Time] 11.4 second(s) Normal [...] the same coagulation reagent and instrumentation as [facility]. Currently there are no coagulation studies available worldwide for children to 14 days, and no normal ranges. Performed By: #### 1 [id number] ####[facility] [address] [place] [address] UA with Cult Rflxon 06-18-20 24 Bilirubin Ql (U) Negative Normal Negative [facility] Comment on above: Performed By: #### 4 [id number] #### [facility] [address] [place] [address] Clarity (U) Clear Normal Clear [facility] Comment on above: Performed By: #### 4 [id number] #### [facility] [address] [place] [address] Color (U) Colorless Abnormal Yellow [facility] Comment on above: Result Comment: Micr oscopic readings are only performed on those samples that meet specific criteria set forth by [facility]. Performed By: #### 4 [id number] #### [facility] [address] [place] [address] Glucose Ql (U) Negative Normal Negative [facility] Comment on above: Performed By: #### 4 [id number] #### [facility] [address] [place] [address] Hemoglobin Auto test strip (U) [Mass/Vol] Trace Abnormal Negative [facility] Comment on above: Performed By: #### 4 [id number] #### [facility] [address] [place] [address] Ketones Auto test strip Ql (U) Negative Normal Negative [facility] Comment on above: Performed By: #### 4 [id number] #### [facility] [address] [place] [address] Leukocyte esterase Auto test strip Ql (U) Negative Normal Negative [facility] Comment on above: Performed By: #### 4 [id number] #### [facility] [address] [place] [address] Nitrite Auto test strip Ql (U) Negative Normal Negative [facility] Comment on above: Performed By: #### 4 [id number] #### [facility] [address] [place] [address] pH (U) 6.0 [pH] Invalid Interpretation Code 5.0-9.0 [facility] Comment on above: Performed By: #### 4 [id number] #### [facility] [address] [place] [address] Protein Ql (U) Negative Normal Negative [facility] Comment on above: Performed By: #### 4 [id number] #### [facility] [address] [place] [address] Specific gravity (U) [Rel density] 1.005 Invalid Interpretation Code 1.005-1.03 0 [facility] Comment on above: Performed By: #### 4 [id number] #### [facility] [address] [place] [address] Urobilinogen (U) [Mass/Vol] Negative Normal Negative [facility] Comment on above: Performed By: #### 4 [id number] #### [facility] [address] [place] [address] Type of Urine collection method Clean Catch Normal [facility] Comment on above: Performed By: #### 4 [id number] #### [facility] [address] [place] [address] URINALYSISOrdered By: SYSTEM SYSTEM on 06-18-2024 Bilirubin [...] Code Negativemg /dL [facility] UA Auto SS Ketones Auto test strip Ql (U) Negative Normal Negativemg /dL [facility] UA Auto SS Leukocyte esterase Auto test strip Ql (U) Negative Normal NegativeLe u/uL [facility] UA Auto SS Nitrite Auto test strip Ql (U) Negative Normal Negativemg /dL [facility] UA Auto SS pH (U) 6.0 *NA* (06/18/24 3:58 PM) Invalid Interpretation Code 5.0 - 9.0 [facility] UA Auto SS Protein Ql (U) Negative Normal Negativemg /dL [facility] UA Auto SS Specific gravity (U) [Rel density] 1.005 *NA* (06/18/24 3:58 PM) Invalid Interpretation Code 1.005 - 1.030 [facility] UA Auto SS Urobilinogen (U) [Mass/Vol] Negative Normal Negativemg /dL [facility] UA Auto SS URINALYSISOrdered By: Reed Domingo on 06-18-2024 UA Spec Desc Clean Catch (06/18/24 3:58 PM) Normal [facility] UA Auto SS eGFRon 06-18-2024 eGFR 64 mL/min/1.73 m2 Normal >=59 [facility] Comment on above: Performed By: #### 1 [id number] #### [facility] [address] [place] [address] Ambulatory Visit Summaryon 1 08-11-2023 Ambulatory Visit [...] Follow-Up Appointments Friday 3:30 PM EST Where: [facility] 2023 9:00 AM EST Where: [facility] You Need to Schedule [...] including vitamins, herbs, eye drops, creams, and nisc-gxt-xumgoty medicines. ??? Any problems you or family [...] nguyen (more content not included)... Normal [facility] Urology Office/Clinic Noteon 06-11-2024 Urology [...] times per week. SE discussed. Sent to [place]. 4. Urethral caruncle (N36.2: Urethral caruncle) See [...] With When Contact Information GABBY RAMIREZ, HAMILTON, JAYY Additional Instructions: schedule cysto with bladder tumor bx Patient Education Injection Treatments for Urinary Incontinence Ashleigh Cassidy I, Shahla Evans, personally scribed for Dr. Hamilton Malone on 06/11/2024 10:15:05. . Portions of this record may have been created with voice recognition artificial intelligence software, specifically [employer], [employer] and or [employer]. Substitutions may have occurred due to the [...] - challengeon 06-04-2024 Bilirubin Ql (U) Negative [facility] Glucose (U) [Mass/Vol] Negative [facility] Ketones Ql (U) Negative [facility] pH (U) 5 [pH] [facility] Specific gravity (U) [Rel density] 1.000 [facility] Urobilinogen (U) [Mass/Vol] 0.2 mg/dL [facility] - Specimen inform ationon 06-04-2024 Appearance (U) cloudy [facility] Color (U) alvin [facility] - Urinalysison Leukocyte esterase Test strip Ql (U) ++ [facility] Nitrite Ql (U) Negative [facility] Protein Ql (U) Negative [facility] No Panel Informationon 06-04 Urine Occult Blood +++ [facility] Urine Cultureon 06-04-2024 Bacteria identified Cx Nom (U) ORGANISM: Klebsiella pneumoniae (O:KLEPNE) [employer] Count >100,000 Aerobic ILANA Charge (NMIC56) SUSCEPTIBILITY [...] RESISTANT TO ALL B-LACTAM DRUGS. PERFORMED BY: [place] [address] PATHOLOGIST COIN MACHINE OPERATOR ALEXEI COLE M.D. Normal [facility] Comment on above: Performed By: #### C UU #### [address] Urine cultureOrdered By: Gabriela Barry on 06-04-2024 Bacteria identified Cx Nom (U) Abnormal [facility] Urology Office/Clinic Noteon 05-28-2024 Urology Office/Clinic [...] E&M of New Patient Moderate 45-59 Min [address] Orders: ciprofloxacin, See Instructions, 1 tab po day prior to cysto, 1 tab po following cysto, # 2 tab(s), Refills(s) 0, Pharmacy: [facility]/pharmacy #[id number], 170, cm, 05/25/24 10:38:00 EDT, Height/Length Dosing, 84, kg, 05/25/24 10:38:00 EDT, Weight Dosing Follow-up With When Contact Information [facility] [place] [address] [place] [address] Business (1) Additional Instructions: our typewriter operator automatic will be contacting you for follow-up Patient [...] 05-26-2024 Cholesterol in LDL [Mass/Vol] 160.0 mg/dL [facility] Comment on above: <100 mg/dl [id number] 0-129 mg/dl NEAR OR ABOVE [id number] mg/dl BORDERLINE [id number] mg/dl HIGH>190 mg/dl VERY HIGH Cholesterol in LDL [Mass/Vol] Cholesterol in LDL [Mass/volume] in Serum or Plasma by calculation [facility] Comment on above: <100 mg/dl [id number] 0-129 mg/dl NEAR OR ABOVE [id number] mg/dl BORDERLINE [id number] mg/dl HIGH>190 mg/dl VERY HIGH Cholesterol in VLDL Calc [Ma ss/Vol]on 05-26-2024 Cholesterol in VLDL [Mass/Vol] 41.0 mg/dL [facility] Cholesterol in VLDL [Mass/Vol] Cholesterol in VLDL [Mass/volume] in Serum or Plasma by calculation [facility] Estimated glomerular filtrat ion rate (GFR) non- Americanon 05-26-2024 GFR/1.73 sq M.predicted among non-blacks MDRD (S/P/Bld) [Vol rate/Area] 44 mL/min/{1.73_m2} Low >=60 mL/min/1.7 3m 2 [facility] GFR/1.73 sq M.predicted among non-blacks MDRD (S/P/Bld) [Vol rate/Area] Estimated glomerular filtration rate (GFR) non- Low >=60 mL/min/1.7 3m 2 [facility] Globulin Calc (S) [Mass/Vol] on 05-26-2024 Globulin (S) [Mass/Vol] 4.3 g/dL F [facility] Globulin (S) [Mass/Vol] Serum globulin measurement by calculation (mass/volume) [facility] - Chemistry and C hemistry - challengeon 05-26-2024 Albumin [Mass/Vol] 3.5 g/dL 3.4-5.0 [facility] ALP [Catalytic activity/Vol] 110 U/L 46-116 [facility] ALT [Catalytic activity/Vol] 21 U/L 14-59 [facility] AST [Catalytic activity/Vol] 14 U/L Low 15-37 [facility] Bilirubin [Mass/Vol] 0.2 mg/dL 0.2-1.0 [facility] Bilirubin.direct [Mass/Vol] 0.1 mg/dL 0.0-0.2 [facility] Cholesterol [Mass/Vol] 281 mg/dL High <=200 Fi [facility] Cholesterol in HDL [Mass/Vol] 80 mg/dL High 40-60 [facility] Comment on above: > or =60 mg/dl - LOW CARDIOVASCULAR RISK<40 mg/dl - HIGH CARDIOVASCULAR RISK Creatinine [Mass/Vol] 1.24 mg/dL High 0.55-1.02 [facility] GFR/1.73 sq M.predicted MDRD (S/P/Bld) [Vol rate/Area] 53 mL/min/{1.73_m2} Low >=60 mL/min/1.7 3m 2 [facility] Glucose [Mass/Vol] 110 mg/dL High 74-106 [facility] Protein [Mass/Vol] 7.8 g/dL 6.4-8.2 [facility] Triglyceride [Mass/Vol] 205 mg/dL High <=150 F [facility] TSH Qn 1.756 m[IU]/L 0.358-3.74 0 [facility] Urea nitrogen [Mass/Vol] 16.0 mg/dL 7.0-18.0 [facility] No Panel Informationon 05-26 Chicken Level 0.6 mmol/L 0.5-1.2 [facility] Comment on above: A concentration of 0 .5-0.8 mmol/L is advised for long-termuse; concentrations of up to 1.2 mmol/L may be necessaryduring acute treatment. Detection Limit = 0.1 <0.1 indicates None DetectedPerformed at: [facility] [id number] [place], [place] [id number] Director: Reji Williamson PhD, Phone: [phone] Serum or plasma albumin/glob ulin mass ratioon 05-26-2024 Albumin/Globulin [Mass ratio] 0.8 {ratio} [facility] Albumin/Globulin [Mass ratio] Serum or plasma albumin/globulin mass ratio [facility] Serum or plasma total choles terol/high density lipoprotein (HDL) cholesterol mass yoselyn 05-26-2024 Cholesterol.total/Linda sterol in HDL [Mass ratio] 3.5 {ratio} [facility] Comment on above: 3.3 - 4.4 LOW RISK4. 4 - 7.1 AVERAGE RISK7.1 - 11.0 MODERATE RISK>11.0 HIGH RISK Cholesterol.total/Linda sterol in HDL [Mass ratio] Serum or plasma total cholesterol/high density lipoprotein (HDL) cholesterol mass rat [facility] Comment on above: 3.3 - 4.4 [...] including vitamins, herbs, eye drops, creams, and zglh-eze-urvmqzd medicines. ? Any problems you or family [...] tells you to take them. ? Taking znpd-fdk-noxcisc medicines, vitamins, herbs, and supplements. Surgery safety [...] - challengeon 05-19-2024 Bilirubin Ql (U) Negative [facility] Glucose (U) [Mass/Vol] Negative [facility] Ketones Ql (U) Negative [facility] pH (U) 7.0 [pH] [facility] Specific gravity (U) [Rel density] 1.010 [facility] Urobilinogen (U) [Mass/Vol] 0.2 mg/dL [facility] - Microbiology an d Antimicrobial susceptibilityOrdered By: Adamaris Hill on 05-19-2024 Bacteria identified Cx Nom (U) Klebsiella pneumoniae Abnormal [facility] - Specimen inform ationon 05-19-2024 Appearance (U) clear [facility] Color (U) darkyellow [facility] - Urinalysison Leukocyte esterase Test strip Ql (U) moderate [facility] Nitrite Ql (U) Positive [facility] Protein Ql (U) Negative [facility] No Panel Informationon 05-19 Urine Occult Blood moderate [facility] Urine Cultureon 05-19-2024 Bacteria identified Cx Nom (U) ORGANISM: Klebsiella pneumoniae (O:KLEPNE) [employer] Count 75,000 Aerobic ILANA Charge (NMIC56) SUSCEPTIBILITY [...] RESISTANT TO ALL B-LACTAM DRUGS. PERFORMED BY: [facility] [address] [place] [address] PATHOLOGIST COIN MACHINE OPERATOR ALEXEI COLE M.D. Normal [facility] Comment on above: Performed By: #### C UU #### [facility] [address] Urine cultureOrdered By: Pascale Hill on 05-19-2024 Bacteria identified Cx Nom (U) Abnormal [facility] HIV AB/P24 AG WITH REFLEXon 05-05-2024 HIV AB/P24 AG SCREEN Non-Reactive Non Reactive [facility] Comment on above: HIV-1/HIV-2 antibodi es and HIV-1 p24 antigen were NOT detected. There is no laboratory evidence of HIV infection. HIV Negative Performed at: [facility] [place], [place] [id number] Acquisition Editor: Reji Williamson PhD, Phone: [phone] [facility] surface Ag IA Qlon 05-04 Hepatitis B Surface Antigen Negative Negative [facility] Comment on above: Performed at: [facility] [address] [id number] Director: Reji Williamson PhD, Phone: [phone] Performed at: [facility] [address] [id number] Director: Reji Williamson PhD, Phone: [phone] HIV 1 and HIV-2 antibody ass ay with HIV-1 p24 antigen detectionon 05-04-2024 HIV 1+2 Ab+HIV1 p24 Ag IA Ql Non-Reactive Non Reactive [facility] Comment on above: HIV-1/HIV-2 antibodi es and HIV-1 p24 antigen were NOTdetected. There is no laboratory evidence of HIV infection.HIV NegativePerformed at: [employer] [id number] Director: Reji Williamson PhD, Phone: [phone] HIV 1+2 Ab+HIV1 p24 Ag IA Ql HIV 1 and HIV-2 antibody assay with HIV-1 p24 antigen detection Non Reactive [facility] Comment on above: HIV-1/HIV-2 antibodi es and HIV-1 p24 antigen were NOTdetected. There is no laboratory evidence of HIV infection.HIV NegativePerformed at: [employer] [id number] Director: Reji Williamson PhD, Phone: [phone] No Panel Informationon 05-04 RPR Quantitative Confirmation Non Reactive titer NonRea<1:1 [facility] Comment on above: Please Note: This te st does not meet current guidelines forscreening and diagnosis of syphilis. This test isintended for following treatment response in patients beingtreated for syphilis infection. To screen for syphilisinfection, a reflex cascade that includes both RPR and atreponema-specific assay should be utilized, such asTreponema pallidum (Syphilis) Screening [place] (684941) orRapid Plasma Reagin (RPR) Test With Reflex to QuantitativeRPR and Confirmatory Treponema pallidum Antibodies(580771).Performed at: [facility] [employer] [id number] Director: Reji Williamson PhD, Phone: [phone] IGP,APTIMA HPV,AGE GDLNon AGE GDLN ACOG TESTING Note . [facility] Comment on above: TESTS RESULT FLAG UN ITS REF RANGE LAB Clinician Provided Cytology Information Source.............Cervix;Endocervix No. of containers..01 ThinPrep Vial Age Algo ACOG Hailee... 01 FLAG LEGEND: L-Low Normal,H-High Normal,LL-Alert Low,HH-Alert High <-Panic Low,>-Panic High,A-Abnormal,AA-Critical Abnormal Performed at: 01 =G [employer] [address] Karena Shane MD, HPV APTIMA Negative Negative [facility] Comment on above: This nucleic acid am plification test detects fourteen high- risk HPV types (16,18,31,33,35,39,45,51,52,56,58,59,66,68) without differentiation. Performed at: = - [address] [id number] Acquisition Editor: Karena Shane MD, Phone: [phone] Performed at: [address] [id number] Acquisition Editor: Karena Shane MD, Phone: [phone] IGP, APTIMA HPV, RFX 16/18,45 Note . [facility] Comment on above: TESTS RESULT FLAG UN ITS REF RANGE LAB DIAGNOSIS: 02 NEGATIVE FOR INTRAEPITHELIAL LESION OR MALIGNANCY. Specimen adequacy: 02 Satisfactory for evaluation. No endocervical component is identified. Performed by: 02 Ernestine Pozo, Label Remover (ASCP) . 02 Note: Note 02 The [...] <-Panic Low,>-Panic High,A-Abnormal,AA-Critical Abnormal Performed at: [address] [address] Karena Shane MD, BRUSH-SPATULA CERVIX ENDOCERVIX CLINISYNC [...] DNA Probe+sig amp Ql (Cvx) Negative Negative [facility] Comment on above: This nucleic acid am plification test detects fourteen high-risk HPV types (16,18,31,33,35,39,45,51,52,56,58,59,66,68)without differentiation.Performed at: =[address] [id number] Director: Karena Shane MD, Phone: [phone] at: [address] [id number] Director: Karena Shane MD, Phone: [phone] HPV 16+18+31+33+35+39+45+51 +52+56+58+59+66+68 DNA Probe+sig amp Ql (Cvx) Human papilloma virus 16+18+31+33+35+39+45+51+5 2+56+58+59+66+68 DNA [Presence] in Cer Negative [facility] Comment on above: This nucleic acid am plification test detects fourteen high-risk HPV types (16,18,31,33,35,39,45,51,52,56,58,59,66,68)without differentiation.Performed at: =[address] [id number] Director: Karena Shane MD, Phone: [phone] at: [address] [id number] Director: Karena Shane MD, Phone: [phone] No Panel Informationon 04-21 HPV High Risk Other Comment Note . [facility] Comment on above: TESTS RESULT FLAG UN ITS REF RANGE LAB -DIAGNOSIS: 02 NEGATIVE FOR INTRAEPITHELIAL LESION OR MALIGNANCY.Specimen adequacy: 02 Satisfactory for evaluation. No endocervical component is identified.Performed by: Dionne Pozo, Label Remover (ASCP). 02Note: Note 02 The Pap smear [...] High <-Panic Low,>-Panic High,A-Abnormal,AA-Critical Abnormal ------Performed at:[address] [address] Karena Shane MD, Reference Lab Test Patient Age Note . [facility] Comment on above: TESTS RESULT FLAG UN ITS REF RANGE LAB - Clinician Provided Cytology Information Source.............Cervix;Endocervix No. of containers..01 ThinPrep VialAge Bernardo DRIVER Hailee... 32 FLAG LEGEND: L-Low Normal,H-High Normal,LL-Alert Low,HH-Alert High <-Panic Low,>-Panic High,A-Abnormal,AA-Critical Abnormal ------Performed at:01 =[facility] [address] [facility] [place] [address] Karena Shane MD, Basophils Auto (Bld) [#/Vol] on 04-09-2024 Basophils (Bld) [#/Vol] 0.1 10 3/uL 0.0-0.1 [facility] Basophils (Bld) [#/Vol] Automated basophil count 0.0-0.1 [facility] Basophils/100 WBC Auto (Bld) on 04-09-2024 Basophils/100 WBC (Bld) 0.8 % 0.2-2.0 F [facility] Basophils/100 WBC (Bld) Automated basophil % 0. 2-2.0 [facility] Cholesterol in LDL Calc [Mas s/Vol]on 04-09-2024 Cholesterol in LDL [Mass/Vol] 156.0 mg/dL [facility] Comment on above: <100 mg/dl [id number] 0-129 mg/dl NEAR OR ABOVE YSTLFXK039-138 mg/dl BORDERLINE EYLF401-138 mg/dl HIGH>190 mg/dl VERY HIGH Cholesterol in LDL [Mass/Vol] Cholesterol in LDL [Mass/volume] in Serum or Plasma by calculation [facility] Comment on above: <100 mg/dl [id number] 0-129 mg/dl NEAR OR ABOVE SRZBYQQ457-228 mg/dl BORDERLINE VQHP536-657 mg/dl HIGH>190 mg/dl VERY HIGH Cholesterol in VLDL Calc [Ma ss/Vol]on 04-09-2024 Cholesterol in VLDL [Mass/Vol] 37.6 mg/dL [facility] Cholesterol in VLDL [Mass/Vol] Cholesterol in VLDL [Mass/volume] in Serum or Plasma by calculation [facility] Eosinophils/100 WBC Auto (Bl d)on 04-09-2024 Eosinophils/100 WBC (Bld) 2.3 % 0.9-7.0 [facility] Eosinophils/100 WBC (Bld) Automated eosinophil % 0.9-7.0 [facility] Erythrocyte distribution wid th Auto (RBC) [Ratio]on 04-09-2024 Erythrocyte distribution width (RBC) [Ratio] 14.2 % 11.0-15.0 [facility] Erythrocyte distribution width (RBC) [Ratio] Erythrocyte distribution width [Ratio] by Automated count 11.0-15.0 [facility] Globulin Calc (S) [Mass/Vol] on 04-09-2024 Globulin (S) [Mass/Vol] 3.7 g/dL F [facility] Globulin (S) [Mass/Vol] Serum globulin measurement by calculation (mass/volume) [facility] Hematocrit Auto (Bld) [Volum e fraction]on 04-09-2024 Hematocrit (Bld) [Volume fraction] 48.4 % High 36.0-48.0 [facility] Hematocrit (Bld) [Volume fraction] Hematocrit [Volume Fraction] of Blood by Automated count High 36.0-48.0 [facility] Hemoglobin [Mass/volume] in Bloodon 04-09-2024 Hemoglobin (Bld) [Mass/Vol] 15.8 g/dL 12.0-16.0 [facility] Hemoglobin (Bld) [Mass/Vol] Hemoglobin [Mass/volume] in Blood 12.0-16.0 [facility] Laboratory - Chemistry and C hemistry - challengeon 04-09-2024 Albumin [Mass/Vol] 3.5 g/dL 3.4-5.0 [facility] ALP [Catalytic activity/Vol] 92 U/L 46-116 [facility] ALT [Catalytic activity/Vol] 30 U/L 14-59 [facility] AST [Catalytic activity/Vol] 17 U/L 15-37 [facility] Bilirubin [Mass/Vol] 0.6 mg/dL 0.2-1.0 [facility] Bilirubin.direct [Mass/Vol] 0.1 mg/dL 0.0-0.2 [facility] Cholesterol [Mass/Vol] 263 mg/dL High <=200 [facility] Cholesterol in HDL [Mass/Vol] 70 mg/dL High 40-60 [facility] Comment on above: > or =60 mg/dl - LOW CARDIOVASCULAR RISK<40 mg/dl - HIGH CARDIOVASCULAR RISK Protein [Mass/Vol] 7.2 g/dL 6.4-8.2 [facility] Triglyceride [Mass/Vol] 188 mg/dL High <=150 F [facility] Laboratory - Hematology and Cell countson 04-09-2024 Immature granulocytes/100 WBC (Bld) 0.7 % High 0.0-0.5 [facility] Leukocytes [#/volume] correc sheeba for nucleated erythrocytes in Blood by Automated counon 04-09-2024 WBC corrected for nucl RBC Auto (Bld) [#/Vol] 7.4 10 3/uL 4.0-11.0 [facility] WBC corrected for nucl RBC Auto (Bld) [#/Vol] Leukocytes [#/volume] corrected for nucleated erythrocytes in Blood by Automated coun 4.0-11.0 [facility] Lymphocytes Auto (Bld) [#/Vo l]on 04-09-2024 Lymphocytes (Bld) [#/Vol] 1.9 10 3/uL 1.2-3.8 [facility] Lymphocytes (Bld) [#/Vol] Lymphocytes [#/volume] in Blood by Automated count 1.2-3.8 [facility] Lymphocytes/100 WBC Auto (Bl d)on 04-09-2024 Lymphocytes/100 WBC (Bld) 25.8 % 20.5-60.0 [facility] Lymphocytes/100 WBC (Bld) Lymphocytes/100 leukocytes in Blood by Automated count 20.5-60.0 [facility] MCH Auto (RBC) [Entitic mass ]on 04-09-2024 MCH (RBC) [Entitic mass] 29.5 pg 26.7-34.0 [facility] MCH (RBC) [Entitic mass] MCH [Entitic mass] by Automated count 26.7-34.0 [facility] MCHC Auto (RBC) [Mass/Vol]on 04-09-2024 MCHC (RBC) [Mass/Vol] 32.6 g/dL 29.9-35.2 [facility] MCHC (RBC) [Mass/Vol] MCHC [Mass/volume] by Automated count 29.9-35.2 [facility] MCV Auto (RBC) [Entitic vol] on 04-09-2024 MCV (RBC) [Entitic vol] 90.3 fL 81.0-99.0 F [facility] MCV (RBC) [Entitic vol] MCV [Entitic vol ume] by Automated count 81.0-99.0 [facility] Monocytes Auto (Bld) [#/Vol] on 04-09-2024 Monocytes (Bld) [#/Vol] 0.6 10 3/uL 0.3-0.8 [facility] Monocytes (Bld) [#/Vol] Automated blood monocyte count 0.3-0.8 [facility] Monocytes/100 WBC Auto (Bld) on 04-09-2024 Monocytes/100 WBC (Bld) 7.9 % 1.7-12.0 F [facility] Monocytes/100 WBC (Bld) Automated monocyte % 1. 7-12.0 [facility] Neutrophils Auto (Bld) [#/Vo l]on 04-09-2024 Neutrophils (Bld) [#/Vol] 4.6 10 3/uL 1.4-6.5 [facility] Neutrophils (Bld) [#/Vol] Neutrophils [#/volume] in Blood by Automated count 1.4-6.5 [facility] Neutrophils/100 WBC Auto (Bl d)on 04-09-2024 Neutrophils/100 WBC (Bld) 62.5 % 43.0-75.0 [facility] Neutrophils/100 WBC (Bld) Automated neutrophil % 43.0-75.0 [facility] No Panel Informationon 04-09 Eosinophils # (Auto) 0.2 10 3/uL 0.0-0.7 [facility] Follicle Stimulating Hormone 71.8 mIU/mL 25.8-134.8 [facility] Comment on above: Adult Female Range F ollicular phase 3.5 - 12.5 Ovulation phase 4.7 - 21.5 Luteal phase 1.7 - 7.7 Postmenopausal 25.8 - 134.8Performed at: CB - [facility] [address] [id number] Director: Reji Williamson PhD, Phone: [phone] Immature Granulocyte # (Auto) 0.05 10 3/uL High 0.00-0.03 [facility] Chicken Level 0.1 mmol/L Abnormal 0.5-1.2 [facility] Comment on above: A concentration of 0 .5-0.8 mmol/L is advised for long-termuse; concentrations of up to 1.2 mmol/L may be necessaryduring acute treatment. Detection Limit = 0.1 <0.1 indicates None DetectedPerformed at: [employer] [id number] Director: Reji Williamson PhD, Phone: [phone] Platelet mean volume Auto (B ld) [Entitic vol]on 04-09-2024 Platelet mean volume (Bld) [Entitic vol] 10.0 fL 9.5-13.5 [facility] Platelet mean volume (Bld) [Entitic vol] Platelet mean volume [Entitic volume] in Blood by Automated count 9.-13.5 [facility] Platelets Auto (Bld) [#/Vol] on 04-09-2024 Platelets (Bld) [#/Vol] 278 10 3/uL 150-450 [facility] Platelets (Bld) [#/Vol] Platelets [#/vol ume] in Blood by Automated count 150-450 [facility] RBC Auto (Bld) [#/Vol]on RBC (Bld) [#/Vol] 5.36 10 6/uL 4.20-5.40 [facility] RBC (Bld) [#/Vol] Erythrocytes [#/volu me] in Blood by Automated count 4.20-5.40 [facility] Serum or plasma albumin/glob ulin mass ratioon 04-09-2024 Albumin/Globulin [Mass ratio] 0.9 {ratio} [facility] Albumin/Globulin [Mass ratio] Serum or plasma albumin/globulin mass ratio [facility] Serum or plasma total choles terol/high density lipoprotein (HDL) cholesterol mass yoselyn 04-09-2024 Cholesterol.total/Linda sterol in HDL [Mass ratio] 3.8 {ratio} [facility] Comment on above: 3.3 - 4.4 LOW RISK4. 4 - 7.1 AVERAGE RISK7.1 - 11.0 MODERATE RISK>11.0 HIGH RISK Cholesterol.total/Linda sterol in HDL [Mass ratio] Serum or plasma total cholesterol/high density lipoprotein (HDL) cholesterol mass rat [facility] Comment on above: 3.3 - 4.4 [...] (COVID-19) mRNA-1273 vaccine 11/11/2020 Recorded Normal [facility] Comment on above: Result Comment: [...] [facility] Operative Reporton Operative Report [id number]#1.00TIFF Normal [facility] Pathology Noteon 01-08-2024 Pathology Note [id number]#1.00TIFF Normal [facility] Consent for Procedure/Surger yon 11-21-2023 Consent for Procedure/Surgery [id number]#1.00TIFF Normal [facility] Facesheeton 11-20-2023 Facesheet [id number]#1.00TIFF Normal [facility] RAD - Ultrasound Reporton RAD - Ultrasound Report [id number]#1.00TIFF Adithya [facility] Ambulatory Visit Summaryon 0 11-19-2023 [...] choosing us for your care. Normal [facility] Basophils Auto (Bld) [#/Vol] on 11-18-2023 Basophils (Bld) [#/Vol] 0.1 10 3/uL 0.0-0.1 [facility] Basophils/100 WBC Auto (Bld) on 11-18-2023 Basophils/100 WBC (Bld) 0.9 % 0.2-2.0 F [facility] Cholesterol in LDL Calc [Mas s/Vol]on 11-18-2023 Cholesterol in LDL [Mass/Vol] 130.0 mg/dL [facility] Comment on above: <100 mg/dl [id number] 0-129 mg/dl NEAR OR ABOVE ZIBACBU754-181 mg/dl BORDERLINE VCHK240-883 mg/dl HIGH>190 mg/dl VERY HIGH Cholesterol in VLDL Calc [Ma ss/Vol]on 11-18-2023 Cholesterol in VLDL [Mass/Vol] 19.8 mg/dL [facility] Eosinophils/100 WBC Auto (Bl d)on 11-18-2023 Eosinophils/100 WBC (Bld) 4.5 % 0.9-7.0 [facility] Erythrocyte distribution wid th Auto (RBC) [Ratio]on 11-18-2023 Erythrocyte distribution width (RBC) [Ratio] 13.6 % 11.0-15.0 [facility] Estimated glomerular filtrat ion rate (GFR) non- Americanon 11-18-2023 GFR/1.73 sq M.predicted among non-blacks MDRD (S/P/Bld) [Vol rate/Area] 55 mL/min/{1.73_m2} >=60 [facility] Globulin Calc (S) [Mass/Vol] on 11-18-2023 Globulin (S) [Mass/Vol] 3.6 g/dL F [facility] Glucose mean value [Mass/vol ume] in Blood Estimated from glycated hemoglobinon 11-18-2023 Average glucose Estimated from glycated hemoglobin (Bld) [Mass/Vol] 100 mg/dL [facility] Hematocrit Auto (Bld) [Volum e fraction]on 11-18-2023 Hematocrit (Bld) [Volume fraction] 46.8 % 36.0-48.0 [facility] Hemoglobin [Mass/volume] in Bloodon 11-18-2023 Hemoglobin (Bld) [Mass/Vol] 15.0 g/dL 12.0-16.0 [facility] Laboratory - Chemistry and C hemistry - challengeon 11-18-2023 Albumin [Mass/Vol] 3.7 g/dL 3.4-5.0 [facility] ALP [Catalytic activity/Vol] 83 U/L 46-116 [facility] ALT [Catalytic activity/Vol] 40 U/L 14-59 [facility] AST [Catalytic activity/Vol] 22 U/L 15-37 [facility] Bilirubin [Mass/Vol] 0.4 mg/dL 0.2-1.0 [facility] Calcium [Mass/Vol] 9.1 mg/dL 8.5-10.1 [facility] Chloride [Moles/Vol] 104 mmol/L 98-107 [facility] Cholesterol [Mass/Vol] 226 mg/dL <=200 [facility] Cholesterol in HDL [Mass/Vol] 77 mg/dL 40-60 [facility] Comment on above: > or =60 mg/dl - LOW CARDIOVASCULAR RISK<40 mg/dl - HIGH CARDIOVASCULAR RISK CO2 [Moles/Vol] 26.6 mmol/L 21.0-32.0 [facility] Creatinine [Mass/Vol] 1.02 mg/dL 0.55-1.02 [facility] GFR/1.73 sq M.predicted MDRD (S/P/Bld) [Vol rate/Area] mL/min/{1.73_m2} >=60 [facility] Glucose [Mass/Vol] 107 mg/dL 74-106 [facility] Potassium [Moles/Vol] 3.7 mmol/L 3.5-5.1 [facility] Protein [Mass/Vol] 7.3 g/dL 6.4-8.2 [facility] Sodium [Moles/Vol] 141 mmol/L 136-145 [facility] Triglyceride [Mass/Vol] 99 mg/dL <=150 F [facility] TSH Qn 1.352 m[IU]/L 0.358-3.74 0 [facility] Urea nitrogen [Mass/Vol] 9.0 mg/dL 7.0-18.0 [facility] Urea nitrogen/Creatinine [Mass ratio] 8.8 mg/mg [facility] Laboratory - Hematology and Cell countson 11-18-2023 HbA1c (Bld) [Mass fraction] 5.1 % 4.5-6.2 [facility] Comment on above: ADA RECOMMENDED LIMI T 4.0 - 6.0ADA THERAPEUTIC TARGET < 7.0ACTION SUGGESTED> 7.0 Immature granulocytes/100 WBC (Bld) 0.6 % 0.0-0.5 [facility] Leukocytes [#/volume] correc sheeba for nucleated erythrocytes in Blood by Automated counon 11-18-2023 WBC corrected for nucl RBC Auto (Bld) [#/Vol] 6.5 10 3/uL 4.0-11.0 [facility] Lymphocytes Auto (Bld) [#/Vo l]on 11-18-2023 Lymphocytes (Bld) [#/Vol] 1.7 10 3/uL 1.2-3.8 [facility] Lymphocytes/100 WBC Auto (Bl d)on 11-18-2023 Lymphocytes/100 WBC (Bld) 25.3 % 20.5-60.0 [facility] MCH Auto (RBC) [Entitic mass ]on 11-18-2023 MCH (RBC) [Entitic mass] 29.6 pg 26.7-34.0 [facility] MCHC Auto (RBC) [Mass/Vol]on 11-18-2023 MCHC (RBC) [Mass/Vol] 32.1 g/dL 29.9-35.2 [facility] MCV Auto (RBC) [Entitic vol] on 11-18-2023 MCV (RBC) [Entitic vol] 92.3 fL 81.0-99.0 [facility] Monocytes Auto (Bld) [#/Vol] on 11-18-2023 Monocytes (Bld) [#/Vol] 0.5 10 3/uL 0.3-0.8 [facility] Monocytes/100 WBC Auto (Bld) on 11-18-2023 Monocytes/100 WBC (Bld) 7.4 % 1.7-12.0 [facility] Neutrophils Auto (Bld) [#/Vo l]on 11-18-2023 Neutrophils (Bld) [#/Vol] 4.0 10 3/uL 1.4-6.5 [facility] Neutrophils/100 WBC Auto (Bl d)on 11-18-2023 Neutrophils/100 WBC (Bld) 61.3 % 43.0-75.0 [facility] No Panel Informationon 11-17 Eosinophils # (Auto) 0.3 10 3/uL 0.0-0.7 [facility] Immature Granulocyte # (Auto) 0.04 10 3/uL 0.00-0.03 [facility] Chicken Level 0.9 mmol/L 0.5-1.2 [facility] Comment on above: A concentration of 0 .5-0.8 mmol/L is advised for long-termuse; concentrations of up to 1.2 mmol/L may be necessaryduring acute treatment. Detection Limit = 0.1 <0.1 indicates None DetectedPerformed at: [facility] [address] [id number] Director: Reji Williamson PhD, Phone: [phone] Outside Mammographyon 2023 [facility] [id number]#1.00TIFF Normal [facility] Platelet mean volume Auto (B ld) [Entitic vol]on 11-18-2023 Platelet mean volume (Bld) [Entitic vol] 10.1 fL 9.5-13.5 [facility] Platelets Auto (Bld) [#/Vol] on 11-18-2023 Platelets (Bld) [#/Vol] 281 10 3/uL 150-450 [facility] RBC Auto (Bld) [#/Vol]on RBC (Bld) [#/Vol] 5.07 10 6/uL 4.20-5.40 [facility] Serum or plasma albumin/glob ulin mass ratioon 11-18-2023 Albumin/Globulin [Mass ratio] 1.0 {ratio} [facility] Serum or plasma anion gap de terminationon 11-18-2023 Anion gap [Moles/Vol] 14.1 mmol/L Fi [facility] Serum or plasma total choles terol/high density lipoprotein (HDL) cholesterol mass yoselyn 11-18-2023 Cholesterol.total/Linda sterol in HDL [Mass ratio] 2.9 {ratio} [facility] Comment on above: 3.3 - 4.4 LOW RISK4. 4 - 7.1 AVERAGE RISK7.1 - 11.0 MODERATE RISK>11.0 HIGH RISK Physician Referralon 024 Physician Referral [id number]#1.00TIFF Normal [facility] XR LSPINE 2_3 [...] Date: 2022-12-06 11:24 Normal [facility] LITHIUMon 11-27-2022 Chicken (Eskalith(R)), Serum 0.8 mmol/L Normal 0.5-1.2 [facility] Comment on above: Result Comment: A co ncentration of 0.5-0.8 mmol/L is advised for long-term use; concentrations of up to 1.2 mmol/L may be necessary during acute treatment. Detection Limit = 0.1 <0.1 indicates None Detected Performed By: #### L ITHIUM ####[facility] [address] [place], [place] [address]OxSamantha Laurel Buckner CREATININEon 11-26-2022 Creatinine [Mass/Vol] 0.97 mg/dL Normal 0.55-1.02 [facility] Comment on above: Performed By: #### T SHNELLIE #### [facility] [address] [address] [address] Laurel Buckner EGFR-AF ETHIOPIAN >60 Normal >=60 [facility] Comment on above: Performed By: #### T SH, CREA #### [facility] [address] [address] [address] Laurel Buckner EGFR-NON AF ETHIOPIAN 59 mL/min/1.73m2 Critically low >=60 [facility] Comment on above: Performed By: #### T SH, CREA #### [facility] [address] [address] [address] Laurel Buckner TSHon 11-26-2022 TSH 1.616 uIU/mL Normal 0.358-3.74 0 [facility] Comment on above: Performed By: #### T KISHORE, CREA #### [facility] [address] [address] [address] Laurel Buckner MG MAMM SCREEN 3D TOMY CADon 11-14-2022 MG MAMM SCREEN 3D TOMY CAD Patient: RAIN SWEENEY Exam Date: 11/14/2022 : 1960 Gender:F Ordering : DR SEB BARRY M.D. Admission #: [id number] Family : Order #: [id number] CLICK HERE TO VIEW EXAM RADIOLOGY REPORT [...] at age 62. LOCATION: [facility] BREAST COMPOSITION: Heterogeneously dense,which may obscure [...] MD on 11/14/2022 at 12:03 Normal [facility] LITHIUMon 05-16-2022 Chicken (Eskalith(R)), Serum 0.8 mmol/L Normal 0.5-1.2 [facility] Comment on above: Result Comment: Plas ma concentration of 0.5 - 0.8 mmol/L are advised for long-term use; concentrations of up to 1.2 mmol/L may be necessary during acute treatment. Detection Limit = 0.1 <0.1 indicates None Detected Performed By: #### L ITHIUM #### [facility] [address] [place] [address] Dr. Laurel Buckner CBC AUTO DIFFon 05-15-2022 BASO # 0.1 103/ul Normal 0.0-0.1 [facility] Comment on above: Performed By: #### C BC #### [facility] [address] [place] [address] Dr. Laurel Buckner Basophils/100 WBC (Bld) 1.0 % Normal 0.2-2.0 [facility] Comment on above: Performed By: #### C BC #### [facility] [address] [place] [address] Dr. Laurel Buckner EO # 0.4 103/ul Normal 0.0-0.7 [facility] Comment on above: Performed By: #### C BC #### [facility] [address] [place] [address] Dr. Laurel Buckner Eosinophils/100 WBC (Bld) 5.3 % Normal 0.9-7.0 [facility] Comment on above: Performed By: #### C BC #### [facility] [address] [place] [address] Dr. Laurel Buckner Erythrocyte distribution width (RBC) [Ratio] 13.8 % Normal 11.0-15.0 [facility] Comment on above: Performed By: #### C BC #### [facility] [address] [place] [address] Dr. Laurel Buckner Hematocrit (Bld) [Volume fraction] 46.8 % Normal 36.0-48.0 [facility] Comment on above: Performed By: #### C BC #### [facility] [address] [place] [address] Dr. Laurel Buckner Hemoglobin (Bld) [Mass/Vol] 14.8 g/dL Normal 12.0-16.0 [facility] Comment on above: Performed By: #### C BC #### [facility] [address] [place] [address] Dr. Laurel Buckner IG # 0.07 10e3/ul Critically high 0.00-0.03 [facility] Comment on above: Performed By: #### C BC #### [facility] [address] [place] [address] Dr. Laurel Buckner IG % 1.0 % Critically high 0.0-0.5 [facility] Comment on above: Performed By: #### C BC #### [facility] [address] [place] [address] Dr. Laurel Buckner LYMPH # 1.7 103/ul Normal 1.2-3.8 [facility] Comment on above: Performed By: #### C BC #### [facility] [address] [place] [address] Dr. Laurel Buckner Lymphocytes/100 WBC (Bld) 25.4 % Normal 20.5-60.0 [facility] Comment on above: Performed By: #### C BC #### [facility] Laboratory [address] [place] [address] Dr. Laurel Buckner MANUAL DIFF REQ NO Normal [facility] Comment on above: Performed By: #### C BC #### [facility] Laboratory [address] [place] [address] Dr. Laurel Buckner MCH (RBC) [Entitic mass] 29.5 pg Normal 26.7-34.0 [facility] Comment on above: Performed By: #### C BC #### [facility] [address] [place] [address] Dr. Laurel Buckner MCHC (RBC) [Mass/Vol] 31.6 g/dL Normal 29.9-35.2 [facility] Comment on above: Performed By: #### C BC #### [facility] [address] [place] [address] Dr. Laurel Buckner MCV (RBC) [Entitic vol] 93.4 fL Normal 81.0-99.0 [facility] Comment on above: Performed By: #### C BC #### [facility] [address] [place] [address] Dr. Laurel Buckner MONO # 0.6 103/ul Normal 0.3-0.8 [facility] Comment on above: Performed By: #### C BC #### [facility] [address] [place] [address] Dr. Laurel Buckner Monocytes/100 WBC (Bld) 8.4 % Normal 1.7-12.0 [facility] Comment on above: Performed By: #### C BC #### [facility] [address] [place] [address] Dr. Laurel Buckner NEUT # 4.0 103/ul Normal 1.4-6.5 [facility] Comment on above: Performed By: #### C BC #### [facility] [address] [place] [address] Dr. Laurel Buckner Neutrophils/100 WBC (Bld) 58.9 % Normal 43.0-75.0 [facility] Comment on above: Performed By: #### C BC #### [facility] [address] [place] [address] Dr. Laurel Buckner Platelet mean volume (Bld) [Entitic vol] 10.1 fL Normal 9.5-13.5 [facility] Comment on above: Performed By: #### C BC #### [facility] [address] [place] [address] Dr. Laurel Buckner PLT 279 103/ul Normal 150-450 [facility] Comment on above: Result Comment: smea r reviewed Performed By: #### C BC #### [facility] [address] [place] [address] Dr. Laurel Buckner RBC 5.01 106/ul Normal 4.20-5.40 [facility] Comment on above: Performed By: #### C BC #### [facility] [address] [place] [address] Dr. Laurel Buckner WBC 6.8 103/ul Normal 4.0-11.0 [facility] Comment on above: Performed By: #### C BC #### [facility] Laboratory [address] [address] [address] Laurel Buckner GLYCOHEMOGLOBIN A1Con 2021 ADA RECOMMENDATION SEE BELOW Normal [facility] Comment on above: Result Comment: ADA RECOMMENDED LIMIT 4.0 - 6.0 ADA THERAPEUTIC TARGET < 7.0 ACTION SUGGESTED > 7.0 Performed By: #### A 1C #### [facility] [address] [place] [address] Dr. Laurel Buckner Glucose [Mass/Vol] 97 mg/dL Normal [facility] Comment on above: Performed By: #### A 1C #### [facility] [address] [place] [address] Dr. Laurel Buckner HbA1c (Bld) [Mass fraction] 5.0 % Normal 4.5-6.2 [facility] Comment on above: Performed By: #### A 1C #### [facility] [address] [place] [address] Dr. Laurel Buckner LIPID PROFILEon 05-15-2022 CHOL-HDL RATIO NORM SEE BELOW Normal [facility] Comment on above: Result Comment: 3.3 - 4.4 LOW RISK 4.4 - 7.1 AVERAGE RISK 7.1 - 11.0 MODERATE RISK >11.0 HIGH RISK Performed By: #### L IPID, TSH, CMP #### [facility] [address] [address] [address] Laurel Buckner Cholesterol [Mass/Vol] 279 mg/dL Critically high <=200 [facility] Comment on above: Performed By: #### L IPID, TSH, CMP #### [facility] [address] [place] [address] Dr. Laurel Buckner Cholesterol in HDL [Mass/Vol] 76 mg/dL Critically high 40-60 [facility] Comment on above: Performed By: #### L IPID, TSH, CMP #### [facility] [address] [address] [address] Laurel Buckner Cholesterol in LDL [Mass/Vol] 162.8 mg/dL Normal [facility] Comment on above: Performed By: #### L IPID, TSH, CMP #### [facility] [address] [address] [address] Laurel Buckner Cholesterol.total/Linda sterol in HDL [Mass ratio] 3.7 {ratio} Normal [facility] Comment on above: Performed By: #### L IPID, TSH, CMP #### [facility] [address] [address] [address] Laurel Buckner HDL NORMAL > or = 60 mg/dl - LO W CARDIOVASCULAR RISK <40 mg/dl - HIGH CARDIOVASCULAR RISK Normal [facility] Comment on above: Performed By: #### L IPID, TSH, CMP #### [facility] [address] [address] [address] Laurel Buckner LDL CALC NORMAL SEE BELOW Normal [facility] Comment on above: Result Comment: <100 mg/dl OPTIMAL 100 - 129 mg/dl NEAR OR ABOVE OPTIMAL 130 - 159 mg/dl BORDERLINE HIGH 160 - 189 mg/dl HIGH >190 mg/dl VERY HIGH Performed By: #### L IPID, TSH, CMP #### [facility] [address] [address] [address] Laurel Buckner Triglyceride [Mass/Vol] 201 mg/dL Critically high <=150 [facility] Comment on above: Performed By: #### L IPID, TSH, CMP #### [facility] [address] [address] [address] Laurel Buckner VLDL CALC 40.2 mg/dL Normal [facility] Comment on above: Performed By: #### L IPID, TSH, CMP #### [facility] [address] [address] [address] Laurel Buckner PROF 14(COMP METB)on 022 Albumin [Mass/Vol] 3.6 g/dL Normal 3.4-5.0 [facility] Comment on above: Performed By: #### L IPID, TSH, CMP #### [facility] [address] [address] [address] Laurel Buckner Albumin/Globulin [Mass ratio] 0.9 {ratio} Normal [facility] Comment on above: Performed By: #### L IPID, TSH, CMP #### [facility] [address] [address] [address] Laurel Buckner ALP [Catalytic activity/Vol] 110 U/L Normal 46-116 [facility] Comment on above: Performed By: #### L IPID, TSH, CMP #### [facility] [address] [place] [address] Dr. Laurel Buckner ALT [Catalytic activity/Vol] 22 U/L Normal 14-59 [facility] Comment on above: Performed By: #### L IPID, TSH, CMP #### [facility] [address] [place] [address] Dr. Laurel Buckner Anion gap [Moles/Vol] 10.8 mmol/L Normal [facility] Comment on above: Performed By: #### L IPID, TSH, CMP #### [facility] [address] [place] [address] Dr. Laurel Buckner AST [Catalytic activity/Vol] 11 U/L Critically low 15-37 [facility] Comment on above: Performed By: #### L IPID, TSH, CMP #### [facility] [address] [place] [address] Dr. Laurel Buckner Bilirubin [Mass/Vol] 0.3 mg/dL Normal 0.2-1.0 [facility] Comment on above: Performed By: #### L IPID, TSH, CMP #### [facility] [address] [place] [address] Dr. Laurel Buckner Calcium [Mass/Vol] 9.1 mg/dL Normal 8.5-10.1 [facility] Comment on above: Performed By: #### L IPID, TSH, CMP #### [facility] [address] [place] [address] Dr. Laurel Buckner Chloride [Moles/Vol] 103 mmol/L Normal 98-107 [facility] Comment on above: Performed By: #### L IPID, TSH, CMP #### [facility] [address] [place] [address] Dr. Laurel Buckner CO2 [Moles/Vol] 27.9 mmol/L Normal 21.0-32.0 [facility] Comment on above: Performed By: #### L IPID, TSH, CMP #### [facility] [address] [address] [address] Laurel Buckner Creatinine [Mass/Vol] 0.96 mg/dL Normal 0.55-1.02 [facility] Comment on above: Performed By: #### L IPID, TSH, CMP #### [facility] [address] [place] [address] Dr. Laurel Buckner EGFR-AF ETHIOPIAN >60 Normal >=60 [facility] Comment on above: Performed By: #### L IPID, TSH, CMP #### [facility] [address] [place] [address] Dr. Laurel Buckner EGFR-NON AF ETHIOPIAN 59 mL/min/1.73m2 Critically low >=60 [facility] Comment on above: Performed By: #### L IPID, TSH, CMP #### [facility] [address] [place] [address] Dr. Laurel Buckner Globulin (S) [Mass/Vol] 3.9 g/dL Normal T [facility] Comment on above: Performed By: #### L IPID, TSH, CMP #### [facility] [address] [place] [address] Dr. Laurel Buckner Glucose [Mass/Vol] 90 mg/dL Normal 74-106 [facility] Comment on above: Performed By: #### L IPID, TSH, CMP #### [facility] [address] [place] [address] Dr. Laurle Buckner Potassium [Moles/Vol] 3.7 mmol/L Normal 3.5-5.1 [facility] Comment on above: Performed By: #### L IPID, TSH, CMP #### [facility] [address] [place] [address] Dr. Laurel Buckner Protein [Mass/Vol] 7.5 g/dL Normal 6.4-8.2 [facility] Comment on above: Performed By: #### L IPID, TSH, CMP #### [facility] [address] [address] [address] Laurel Buckner Sodium [Moles/Vol] 138 mmol/L Normal 136-145 [facility] Comment on above: Performed By: #### L IPID, TSH, CMP #### [facility] [address] [place] [address] Dr. Laurel Buckner Urea nitrogen [Mass/Vol] 16.0 mg/dL Normal 7.0-18.0 [facility] Comment on above: Performed By: #### L IPID, TSH, CMP #### [facility] [address] [place] [address] Dr. Laurel Buckner Urea nitrogen/Creatinine [Mass ratio] 16.7 mg/mg Normal [facility] Comment on above: Performed By: #### L IPID, TSH, CMP #### [facility] [address] [place] [address] Dr. Laurel Buckner TSH 05-15-2022 TSH 3.094 uIU/mL Normal 0.358-3.74 0 [facility] Comment on above: Performed By: #### L IPID, TSH, CMP #### [facility] [address] [place] [address] Dr. Laurel Buckner Vital Signs Date Time Vital Sign Value Performing Clinician Facility 03-08-2025 08:35-0400 Body height 170.2 cm Scooby Fitzgerald DO Work Phone: [facility] 03-08-2025 08:35-0400 Body mass index (BMI) [Ratio] 26.63 kg/m2 Scooby Fitzgerald DO Work Phone: [facility] 03-08-2025 08:35-0400 Body weight 77.11 kg Scooby Fitzgerald DO Work Phone: [facility] 02-22-2025 07:59-0400 Body height 172.7 cm Scooby Alegriacek DO Work Phone: [facility] 02-22-2025 07:59-0400 Body mass index (BMI) [Ratio] 25.85 kg/m2 Scooby Alegriacek DO Work Phone: [facility] 02-22-2025 07:59-0400 Body weight 77.11 kg Scooby Alegriacek DO Work Phone: [facility] 02-08-2025 09:47-0400 Body height 170.2 cm Scooby Alegriacek DO Work Phone: [facility] 02-08-2025 09:47-0400 Body mass index (BMI) [Ratio] 26.63 kg/m2 Scooby Alegriacek DO Work Phone: [facility] 02-08-2025 09:47-0400 Body weight 77.11 kg Scooby Scottk DO Work Phone: [facility] 01-21-2025 10:19-0400 Body height 170.18 cm PHYSICIAN NO [facility] 01-21-2025 10:19-0400 Body mass index (BMI) [Ratio] 28.1 kg/m2 PHYSICIAN NO [facility] 01-21-2025 10:19-0400 Body weight 81.64 kg PHYSICIAN NO [facility] 01-21-2025 10:19-0400 Diastolic blood pressure 87 mm[Hg] PHYSICIAN NO [facility] 01-21-2025 10:19-0400 Heart rate 80 /min PHYSICIAN NO [facility] 01-21-2025 10:19-0400 Systolic blood pressure 124 mm[Hg] PHYSICIAN NO [facility] 01-18-2025 10:05-0400 Body height 172.7 cm Song Covarrubias MD Work Phone: [facility] 01-18-2025 10:05-0400 Body mass index (BMI) [Ratio] 27.37 kg/m2 Song Covarrubias MD Work Phone: [facility] 01-18-2025 10:05-0400 Body weight 81.65 kg Song Covarrubias MD Work Phone: [facility] 01-18-2025 10:05-0400 Heart rate 103 /min Song Covarrubias MD Work Phone: [facility] 01-18-2025 10:05-0400 Respiratory rate 20 /min Song Covarrubias MD Work Phone: [facility] 01-18-2025 10:05-0400 SaO2% (BldA) [Mass fraction] 98 % Song Covarrubias MD Work Phone: [facility] 12-14-2024 10:14-0400 Body height 170.2 cm Song Covarrubias MD Work Phone: [facility] 12-14-2024 10:14-0400 Body mass index (BMI) [Ratio] 28.04 kg/m2 Song Covarrubias MD Work Phone: [facility] 12-14-2024 10:14-0400 Body weight 81.19 kg Song Covarrubias MD Work Phone: [facility] 12-14-2024 10:14-0400 Diastolic blood pressure 88 mm[Hg] Song Covarrubias MD Work Phone: [facility] 12-14-2024 10:14-0400 Heart rate 102 /min Song Covarrubias MD Work Phone: [facility] 12-14-2024 10:14-0400 Respiratory rate 20 /min Song Covarrubias MD Work Phone: [facility] 12-14-2024 10:14-0400 SaO2% (BldA) [Mass fraction] 97 % Song Covarrubias MD Work Phone: [facility] 12-14-2024 10:14-0400 Systolic blood pressure 144 mm[Hg] Song Covarrubias MD Work Phone: [facility] 08-18-2024 10:22-0500 Diastolic blood pressure 85 mm[Hg] PHYSICIAN NO [facility] 08-18-2024 10:22-0500 Heart rate 107 /min PHYSICIAN NO [facility] 08-18-2024 10:22-0500 Respiratory rate 16 /min PHYSICIAN NO [facility] 08-18-2024 10:22-0500 SaO2% (BldA) [Mass fraction] 96 % PHYSICIAN NO [facility] 08-18-2024 10:22-0500 Systolic blood pressure 149 mm[Hg] PHYSICIAN NO [facility] 08-18-2024 10:07-0500 Body temperature 97.3 [degF] PHYSICIAN NO [facility] 08-18-2024 08:07-0500 Body height 170.18 cm PHYSICIAN NO [facility] 08-18-2024 08:07-0500 Body weight 82 kg PHYSICIAN NO [facility] 08-06-2024 09:28-0500 Blood Pressure Location HAMILTON NKANSAH-AMANKRA [facility] 08-06-2024 09:28-0500 Diastolic blood pressure 48 mm[Hg] HAMILTON NKANSAH-AMANKRA [facility] 08-06-2024 09:28-0500 Heart rate 88 /min HAMILTON NKANSAH-AMANKRA [facility] 08-06-2024 09:28-0500 Respiratory rate 17 /min HAMILTON NKANSAH-AMANKRA [facility] 08-06-2024 09:28-0500 Systolic blood pressure 132 mm[Hg] HAMILTON NKANSAH-AMANKRA [facility] 07-30-2024 09:56-0500 Diastolic blood pressure 93 mm[Hg] HAMILTON NKANSAH-AMANKRA [facility] 07-30-2024 09:56-0500 Heart rate 105 /min HAMILTON NKANSAH-AMANKRA [facility] 07-30-2024 09:56-0500 Respiratory rate 16 /min HAMILTON SIMIANSAH-AMANKRA [facility] 07-30-2024 09:56-0500 Systolic blood pressure 143 mm[Hg] H[facility]ILTON SIMIANSAH-AMANKRA [facility] 07-27-2024 08:41-0500 Heart rate 119 /min Ronobir CROW [facility] 07-27-2024 08:41-0500 SaO2% (BldA) [Mass fraction] 96 % Ronobir CROW [facility] 07-27-2024 08:29-0500 Body temperature 98.06 [degF] Ronobir CROW [facility] 07-27-2024 08:29-0500 Diastolic blood pressure 100 mm[Hg] Ronobir CROW [facility] 07-27-2024 08:29-0500 Mean blood pressure 122 mm[Hg] Ronobir CROW [facility] 07-27-2024 08:29-0500 Systolic blood pressure 166 mm[Hg] Ronobir CROW [facility] 07-27-2024 08:11-0500 Heart rate 131 /min Ronobir CROW [facility] 07-27-2024 08:11-0500 SaO2% (BldA) [Mass fraction] 95 % Ronobir CROW [facility] 07-27-2024 08:11-0500 Respiratory rate 16 /min Ronobir CROW [facility] 07-27-2024 08:10-0500 Diastolic blood pressure 80 mm[Hg] Ronobir CROW [facility] 07-27-2024 08:10-0500 Mean blood pressure 109 mm[Hg] Ronobir CROW [facility] 07-27-2024 08:10-0500 Systolic blood pressure 167 mm[Hg] Ronobir CROW [facility] 07-27-2024 08:10-0500 Body temperature 97.88 [degF] Ronobir CROW [facility] 07-27-2024 06:06-0500 Hourly Rounding Ronobir CROW [facility] 07-27-2024 06:06-0500 Promise to Return Ronobir CROW [facility] 07-27-2024 05:13-0500 Hourly Rounding Ronobir CROW [facility] 07-27-2024 05:13-0500 Promise to Return Ronobir CROW [facility] 07-27-2024 04:08-0500 Hourly Rounding Ronobir CROW [facility] 07-27-2024 04:08-0500 Promise to Return Ronobir CROW [facility] 07-27-2024 02:23-0500 Blood Pressure Location Ronobir CROW [facility] 07-27-2024 02:23-0500 Body temperature 97.7 [degF] Ronobir CROW [facility] 07-27-2024 02:23-0500 Diastolic blood pressure 83 mm[Hg] Ronobir CROW [facility] 07-27-2024 02:23-0500 Heart rate 83 /min Ronobir CROW [facility] 07-27-2024 02:23-0500 Mean blood pressure 106 mm[Hg] Ronobir CROW [facility] 07-27-2024 02:23-0500 SaO2% (BldA) [Mass fraction] 97 % Ronobir CROW [facility] 07-27-2024 02:23-0500 Systolic blood pressure 153 mm[Hg] Ronobir CROW [facility] 07-26-2024 20:00-0500 Body temperature 98.06 [degF] Ronobir CROW [facility] 07-26-2024 16:18-0500 Respiratory rate 16 /min Ronobir CROW [facility] 07-26-2024 16:18-0500 Body temperature 97.7 [degF] Ronobir CROW [facility] 07-26-2024 16:18-0500 Mean blood pressure 97 mm[Hg] Ronobir CROW [facility] 07-26-2024 01:00-0500 Blood Pressure Location Ronobir CROW [facility] 07-26-2024 01:00-0500 Body temperature 97.16 [degF] Ronobir CROW [facility] 07-26-2024 01:00-0500 Mean blood pressure 91 mm[Hg] Ronobir CROW [facility] 07-25-2024 08:00-0500 Heart rate 98 /min Ronobir CROW [facility] 07-25-2024 08:00-0500 Mean blood pressure 90 mm[Hg] Ronobir CROW [facility] 07-22-2024 12:28-0500 Heart rate 99 /min HAMILTON NKANSAH-AMANKRA [facility] 07-22-2024 12:28-0500 SaO2% (BldA) [Mass fraction] 98 % HAMILTON NKANSAH-AMANKRA [facility] 07-22-2024 12:28-0500 Diastolic blood pressure 77 mm[Hg] HAMILTON NKANSAH-AMANKRA [facility] 07-22-2024 12:28-0500 Mean blood pressure 93 mm[Hg] HAMLITON NKANSAH-AMANKRA [facility] 07-22-2024 12:28-0500 Systolic blood pressure 125 mm[Hg] HAMILTON NKANSAH-AMANKRA [facility] 07-22-2024 12:28-0500 Respiratory rate 16 /min HAMILTON NKANSAH-AMANKRA [facility] 07-22-2024 10:10-0500 Blood Pressure Location HAMILTON NKANSAH-AMANKRA [facility] 07-22-2024 10:10-0500 Body temperature 97.7 [degF] HAMILTON NKANSAH-AMANKRA [facility] 07-22-2024 10:10-0500 Diastolic blood pressure 82 mm[Hg] HAMILTON NKANSAH-AMANKRA [facility] 07-22-2024 10:10-0500 Heart rate 107 /min HAMILTON NKANSAH-AMANKRA [facility] 07-22-2024 10:10-0500 Mean blood pressure 99 mm[Hg] HAMILTON NKANSAH-AMANKRA [facility] 07-22-2024 10:10-0500 Respiratory rate 16 /min HAMILTON NKANSAH-AMANKRA [facility] 07-22-2024 10:10-0500 SaO2% (BldA) [Mass fraction] 96 % HAMILTON NKANSAH-AMANKRA [facility] 07-22-2024 10:10-0500 Systolic blood pressure 134 mm[Hg] HAMILTON NKANSAH-AMANKRA [facility] 07-22-2024 09:58-0500 Body temperature 97.88 [degF] HAMILTON NKANSAH-AMANKRA [facility] 07-22-2024 09:58-0500 Diastolic blood pressure 68 mm[Hg] HAMILTON NKANSAH-AMANKRA [facility] 07-22-2024 09:58-0500 Heart rate 111 /min HAMILTON NKANSAH-AMANKRA [facility] 07-22-2024 09:58-0500 Mean blood pressure 87 mm[Hg] HAMILTON NKANSAH-AMANKRA [facility] 07-22-2024 09:58-0500 Respiratory rate 20 /min HAMILTON NKANSAH-AMANKRA [facility] 07-22-2024 09:58-0500 SaO2% (BldA) [Mass fraction] 94 % HAMILTON NKANSAH-AMANKRA [facility] 07-22-2024 09:58-0500 Systolic blood pressure 125 mm[Hg] HAMILTON NKANSAH-AMANKRA [facility] 07-22-2024 09:40-0500 Mean blood pressure 110 mm[Hg] HAMILTON NKANSAH-AMANKRA [facility] 07-22-2024 09:40-0500 Respiratory rate 24 /min HAMILTON NKANSAH-AMANKRA [facility] 07-22-2024 09:25-0500 Respiratory rate 11 /min HAMILTON NKANSAH-AMANKRA [facility] 07-22-2024 09:08-0500 Blood Pressure Location HAMILTON NKANSAH-AMANKRA [facility] 07-22-2024 09:08-0500 Body temperature 97.52 [degF] H[facility]ILTON NKANSAH-AMANKRA [facility] 07-22-2024 06:19-0500 Heart rate 98 /min HAMILTON NKANSAH-AMANKRA [facility] 07-22-2024 06:19-0500 Respiratory rate 18 /min HAMILTON NKANSAH-AMANKRA [facility] 07-22-2024 06:18-0500 Mean blood pressure 105 mm[Hg] HAMILTON NKANSAH-AMANKRA [facility] 07-05-2024 10:04-0500 Blood Pressure Location HAMILTON NKANSAH-AMANKRA [facility] 07-05-2024 10:04-0500 Diastolic blood pressure 90 mm[Hg] HAMILTON NKANSAH-AMANKRA [facility] 07-05-2024 10:04-0500 Heart rate 109 /min HAMILTON NKANSAH-AMANKRA [facility] 07-05-2024 10:04-0500 Systolic blood pressure 155 mm[Hg] HAMILTON NKANSAH-AMANKRA [facility] 06-24-2024 10:02-0500 Heart rate 89 /min HAMILTON NKANSAH-AMANKRA [facility] 06-24-2024 10:02-0500 SaO2% (BldA) [Mass fraction] 97 % HAMILTON NKANSAH-AMANKRA [facility] 06-24-2024 10:01-0500 Blood Pressure Location HAMILTON NKANSAH-AMANKRA [facility] 06-24-2024 10:01-0500 Diastolic blood pressure 88 mm[Hg] HAMILTON NKANSAH-AMANKRA [facility] 06-24-2024 10:01-0500 Mean blood pressure 104 mm[Hg] HAMILTON NKANSAH-AMANKRA [facility] 06-24-2024 10:01-0500 Systolic blood pressure 137 mm[Hg] HAMILTON NKANSAH-AMANKRA [facility] 06-24-2024 10:01-0500 Respiratory rate 16 /min HAMILTON NKANSAH-AMANKRA [facility] 06-24-2024 09:21-0500 Heart rate 95 /min HAMILTON NKANSAH-AMANKRA [facility] 06-24-2024 09:21-0500 SaO2% (BldA) [Mass fraction] 95 % HAMILTON NKANSAH-AMANKRA [facility] 06-24-2024 09:20-0500 Blood Pressure Location HAMILTON NKANSAH-AMANKRA [facility] 06-24-2024 09:20-0500 Diastolic blood pressure 88 mm[Hg] HAMILTON NKANSAH-AMANKRA [facility] 06-24-2024 09:20-0500 Mean blood pressure 103 mm[Hg] HAMILTON NKANSAH-AMANKRA [facility] 06-24-2024 09:20-0500 Systolic blood pressure 134 mm[Hg] HAMILTON NKANSAH-AMANKRA [facility] 06-24-2024 09:20-0500 Respiratory rate 18 /min HAMILTON NKANSAH-AMANKRA [facility] 06-24-2024 09:13-0500 Body temperature 98.06 [degF] HAMILTON NKANSAH-AMANKRA [facility] 06-24-2024 09:13-0500 Mean blood pressure 92 mm[Hg] HAMILTON NKANSAH-AMANKRA [facility] 06-24-2024 09:13-0500 Respiratory rate 16 /min HAMILTON NKANSAH-AMANKRA [facility] 06-24-2024 08:48-0500 Body temperature 97.7 [degF] HAMILTON NKANSAH-AMANKRA [facility] 06-24-2024 08:48-0500 Mean blood pressure 86 mm[Hg] HAMILTON NKANSAH-AMANKRA [facility] 06-24-2024 07:00-0500 Heart rate 100 /min HAMILTON NKANSAH-AMANKRA [facility] 06-24-2024 06:56-0500 Body temperature 98.24 [degF] HAMILTON NKANSAH-AMANKRA [facility] 06-21-2024 10:32-0500 Body height 170.18 cm Adamaris Liz [employer] Work Phone: [facility] 06-21-2024 10:32-0500 Body mass index (BMI) [Ratio] 28.8 kg/m2 Adamaris Liz [employer] Work Phone: [facility] 06-21-2024 10:32-0500 Body weight 83.46 kg Adamaris Liz [employer] Work Phone: [facility] 06-21-2024 10:32-0500 Diastolic blood pressure 85 mm[Hg] Adamaris Liz [employer] Work Phone: [facility] 06-21-2024 10:32-0500 Heart rate 102 /min Adamaris Liz [employer] Work Phone: [facility] 06-21-2024 10:32-0500 Systolic blood pressure 133 mm[Hg] Adamaris Liz [employer] Work Phone: [facility] 06-18-2024 15:48-0500 Diastolic blood pressure 89 mm[Hg] HAMILTON NKANSAH-AMANKRA [facility] 06-18-2024 15:48-0500 Heart rate 87 /min HAMILTON NKANSAH-AMANKRA [facility] 06-18-2024 15:48-0500 Mean blood pressure 106 mm[Hg] HAMILTON NKANSAH-AMANKRA [facility] 06-18-2024 15:48-0500 Systolic blood pressure 139 mm[Hg] HAMILTON NKANSAH-AMANKRA [facility] 06-18-2024 15:48-0500 Heart rate 59 /min HAMILTON NKANSAH-AMANKRA [facility] 06-18-2024 15:48-0500 SaO2% (BldA) [Mass fraction] 99 % HAMILTON NKANSAH-AMANKRA [facility] 06-18-2024 15:47-0500 Diastolic blood pressure 72 mm[Hg] HAMILTON NKANSAH-AMANKRA [facility] 06-18-2024 15:47-0500 Mean blood pressure 90 mm[Hg] HAMILTON NKANSAH-AMANKRA [facility] 06-18-2024 15:47-0500 Systolic blood pressure 126 mm[Hg] HAMILTON NKANSAH-AMANKRA [facility] 06-11-2024 09:42-0400 Blood Pressure Location HAMILTON NKANSAH-AMANKRA [facility] 06-11-2024 09:42-0400 Diastolic blood pressure 88 mm[Hg] HAMILTON NKANSAH-AMANKRA [facility] 06-11-2024 09:42-0400 Heart rate 103 /min HAMILTON NKANSAH-AMANKRA [facility] 06-11-2024 09:42-0400 Respiratory rate 20 /min HAMILTON NKANSAH-AMANKRA [facility] 06-11-2024 09:42-0400 Systolic blood pressure 149 mm[Hg] HAMILTON MALONE [facility] 05-25-2024 10:30-0400 Blood Pressure Location KARON FLORES [facility] 05-25-2024 10:30-0400 Diastolic blood pressure 74 mm[Hg] KARON FLORES [facility] 05-25-2024 10:30-0400 Heart rate 104 /min KARON FLORES [facility] 05-25-2024 10:30-0400 Systolic blood pressure 138 mm[Hg] KARON FLORES [facility] 05-19-2024 10:20-0400 Body height 170.18 cm PHYSICIAN NO [facility] 05-19-2024 10:20-0400 Body mass index (BMI) [Ratio] 27.3 kg/m2 PHYSICIAN NO [facility] 05-19-2024 10:20-0400 Body temperature 97.8 [degF] PHYSICIAN NO [facility] 05-19-2024 10:20-0400 Body weight 79.37 kg PHYSICIAN NO [facility] 05-19-2024 10:20-0400 Diastolic blood pressure 95 mm[Hg] PHYSICIAN NO [facility] 05-19-2024 10:20-0400 Heart rate 111 /min PHYSICIAN NO [facility] 05-19-2024 10:20-0400 Respiratory rate 18 /min PHYSICIAN NO [facility] 05-19-2024 10:20-0400 SaO2% (BldA) [Mass fraction] 97 % PHYSICIAN NO [facility] 05-19-2024 10:20-0400 Systolic blood pressure 147 mm[Hg] PHYSICIAN NO [facility] 04-21-2024 09:04-0400 Body mass index (BMI) [Ratio] 27.27 kg/m2 Faiza BURTON Work Phone: [facility] 04-21-2024 09:04-0400 Body weight 78.98 kg Faiza BURTON Work Phone: [facility] 04-21-2024 09:04-0400 Diastolic blood pressure 70 mm[Hg] Faiza BURTON Work Phone: [facility] 04-21-2024 09:04-0400 Systolic blood pressure 120 mm[Hg] Faiza BURTON Work Phone: [facility] 01-30-2024 09:36-0400 Body height 170.18 cm PHYSICIAN NO [facility] 01-30-2024 09:36-0400 Body mass index (BMI) [Ratio] 26.7 kg/m2 PHYSICIAN NO [facility] 01-30-2024 09:36-0400 Body weight 77.56 kg PHYSICIAN NO [facility] 01-30-2024 09:36-0400 Diastolic blood pressure 80 mm[Hg] PHYSICIAN NO [facility] 01-30-2024 09:36-0400 Heart rate 108 /min PHYSICIAN NO [facility] 01-30-2024 09:36-0400 Systolic blood pressure 114 mm[Hg] PHYSICIAN NO [facility] 11-19-2023 13:56-0400 Blood Pressure Location Dieter LOCO [facility] [place] 11-19-2023 13:56-0400 Diastolic blood pressure 92 mm[Hg] Dieter LOCO [facility] [place] 11-19-2023 13:56-0400 Heart rate 72 /min Dieter LOCO [facility] [place] 11-19-2023 13:56-0400 Respiratory rate 16 /min Dieter LOCO [facility] [place] 11-19-2023 13:56-0400 Systolic blood pressure 132 mm[Hg] Dieter BERONICA [facility] [place] 11-12-2023 10:20-0400 Body height 170.18 cm PHYSICIAN NO [facility] 11-12-2023 10:20-0400 Body mass index (BMI) [Ratio] 28 kg/m2 PHYSICIAN NO [facility] 11-12-2023 10:20-0400 Body weight 81.36 kg PHYSICIAN NO [facility] 11-12-2023 10:20-0400 Diastolic blood pressure 77 mm[Hg] PHYSICIAN NO [facility] 11-12-2023 10:20-0400 Heart rate 124 /min PHYSICIAN NO [facility] 11-12-2023 10:20-0400 Systolic blood pressure 124 mm[Hg] PHYSICIAN NO [facility] 10-22-2023 09:23-0400 Body height 170.18 cm PHYSICIAN NO [facility] 10-22-2023 09:23-0400 Body mass index (BMI) [Ratio] 29.1 kg/m2 PHYSICIAN NO [facility] 10-22-2023 09:23-0400 Body weight 84.36 kg PHYSICIAN NO [facility] 10-22-2023 09:23-0400 Diastolic blood pressure 85 mm[Hg] PHYSICIAN NO [facility] 10-22-2023 09:23-0400 Heart rate 106 /min PHYSICIAN NO [facility] 10-22-2023 09:23-0400 Systolic blood pressure 140 mm[Hg] PHYSICIAN NO [facility] 05-29-2023 14:00-0400 Body height 170.18 cm Helio Barry Other [facility] Other 05-29-2023 14:00-0400 Body mass index (BMI) [Ratio] 29.44 kg/m2 Helio Barry Other [facility] Other 05-29-2023 14:00-0400 Body weight 85.28 kg Helio Barry Other [facility] Other 05-05-2023 08:30-0400 Body height 170.18 cm Seb Barry Other [facility] Other 05-05-2023 08:30-0400 Body mass index (BMI) [Ratio] 29.44 kg/m2 Seb Barry Other [facility] Other 05-05-2023 08:30-0400 Body weight 85.28 kg Seb Barry Other [facility] Other 05-05-2023 08:30-0400 Diastolic blood pressure 82 mm[Hg] Seb Barry Other [facility] Other 05-05-2023 08:30-0400 Systolic blood pressure 128 mm[Hg] Seb Barry Other [facility] Other 04-01-2023 10:00-0400 Body height 170.18 cm Seb Barry Other [facility] Other 04-01-2023 10:00-0400 Body mass index (BMI) [Ratio] 29.13 kg/m2 Seb Barry Other [facility] Other 04-01-2023 10:00-0400 Body weight 84.37 kg Seb Barry Other [facility] Other 04-01-2023 10:00-0400 Diastolic blood pressure 86 mm[Hg] Seb Barry Other [facility] Other 04-01-2023 10:00-0400 Systolic blood pressure 148 mm[Hg] Seb Barry Other [facility] Other Encounters Encounter Date Encounter Type Care Provider Facility Start: 03-09-2025 End: 03-09-2025 ambulatory [facility] Start: 03-09-2025 End: 03-09-2025 Subsequent hospital visit by physician Alla BUENOZ [facility] Comment on above: Arrived Start: 03-08-2025 End: 03-08-2025 Office outpatient visit 15 minutes Scooby Fitzgerald DO Work Phone: [facility] Comment on above: Thyroid nodule (Prim melany Dx) Start: 03-08-2025 End: 03-08-2025 ambulatory SCOOBY FITZGERALD Not Available Start: 03-01-2025 ambulatory Pan Sanders Facility:[facility] Start: 02-28-2025 End: 02-28-2025 ambulatory [facility]IE [facility] Start: 02-28-2025 End: 02-28-2025 Subsequent hospital visit by physician Alla Tran [facility] Comment on above: Arrived Start: 02-22-2025 End: 02-22-2025 Bamboo flowsheet Scooby Fitzgerald DO Work Phone: [facility] Start: 02-22-2025 End: 02-22-2025 Bamboo flowsheet Scooby Fitzgerald DO Work Phone: [facility] Start: 02-22-2025 End: 02-22-2025 Departed Referred Scooby Fitzgerald DO -Lab [facility] Work Phone: Start: 02-22-2025 End: 02-22-2025 Office outpatient visit 25 minutes Scooby Fitzgerald DO Work Phone: [facility] Comment on above: Thyroid nodule (Prim melany Dx); SHARON (obstructive sleep apnea) Start: 02-22-2025 End: 02-22-2025 ambulatory PHYSICIAN BALDOMERO MONTAGUE [facility] Work Phone: Start: 02-21-2025 End: 02-21-2025 Subsequent hospital visit by physician Alla [facility] Start: 02-17-2025 End: 02-17-2025 ambulatory MELANIE Meier [facility] Start: 02-17-2025 End: 02-17-2025 Subsequent hospital visit by physician Caren Shoemaker PT [facility] Physical Therapy Comment on above: Arrived Start: 02-08-2025 End: 02-08-2025 Bamboo flowsheet Scooby Marc Fitzgerald DO Work Phone: [facility] Start: 02-08-2025 End: 02-08-2025 Bamboo flowsheet Scooby Marc Rajiestephania DO Work Phone: [facility] Start: 02-08-2025 End: 02-08-2025 Office outpatient new 45 minutes Scooby Fitzgerald DO Work Phone: [facility] Comment on above: Hyperthyroidism (Helena haydee Dx); Multinodular goiter Start: 02-08-2025 End: 02-08-2025 ambulatory SCOOBY FITZGERALD Not Available Start: 01-21-2025 End: 01-21-2025 Patient encounter procedure Seb Barry MD [facility] Work Phone: Start: 01-18-2025 End: 01-18-2025 Bamboo flowsheet Song Covarrubias MD Work Phone: [facility] Start: 01-18-2025 End: 01-18-2025 Bamboo flowsheet Song Covarrubias MD Work Phone: [facility] Start: 01-18-2025 End: 01-18-2025 Office outpatient visit 40 minutes Song Covarrubias MD Work Phone: [facility] Comment on above: Hyperthyroidism (CMS /HCC) (Primary Dx); Long-term current use of lithium; Hair loss; Palpitation; Multinodular goiter (CMS/HCC) Start: 01-18-2025 End: 01-18-2025 ambulatory SONG COVARRUBIAS Not Available Start: 01-13-2025 End: 01-13-2025 Patient encounter procedure PHYSICIAN NO [facility] [place] Work Phone: Start: 01-13-2025 End: 01-13-2025 ambulatory PHYSICIAN NO [facility] Work Phone: Start: 12-16-2024 Non-patient / Non-visit PHYSICIAN NO [facility] Work Phone: Start: 12-15-2024 Registered Recurring PHYSICIAN NO [facility] Start: 12-14-2024 End: 12-14-2024 Bamboo flowsheet Song Covarrubias MD Work Phone: [facility] Start: 12-14-2024 End: 12-14-2024 Bamboo flowsheet Song Covarrubias MD Work Phone: [facility] Start: 12-14-2024 End: 12-14-2024 Office outpatient new 45 minutes Song Covarrubias MD Work Phone: [facility] Comment on above: Hyperthyroidism (CMS /HCC) (Primary Dx); Long-term current use of lithium; Hair loss; Palpitation Start: 12-14-2024 End: 12-14-2024 ambulatory SONG COVARRUBIAS Not Available Start: 11-18-2024 Non-patient / Non-visit PHYSICIAN NO [facility] Work Phone: Start: 10-22-2024 End: 12-10-2024 Pre-admission assessment HAMILTON NKANSAH-AMANKRA [facility] Start: 10-22-2024 End: 10-22-2024 ambulatory HAMILTON NKANSAH-AMANKRA Facility:[facility] Start: 08-26-2024 ambulatory HAMILTON NKANSAH-AMANKRA Facility:[facility] Start: 08-18-2024 End: 08-18-2024 Admission to same day surgery center PHYSICIAN NO [facility] [place] Start: 08-18-2024 End: 08-18-2024 ambulatory PHYSICIAN NO [facility] Work Phone: Start: 08-18-2024 End: 08-18-2024 ambulatory HAMILTON SOTOAH-AMANKRA Facility:CD:[id number] Start: 08-13-2024 End: 08-13-2024 ambulatory HAMILTON SOTOAH-AMANKRA Facility:[facility] Start: 08-13-2024 End: 08-13-2024 Patient encounter procedure HAMILTON SOTOAH-AMANKRA [facility] Start: 08-10-2024 Registered Recurring PHYSICIAN NO [facility] Start: 08-06-2024 End: 08-06-2024 ambulatory HAMILTON SOTOAH-AMANKRA Facility:[facility] Start: 08-06-2024 End: 08-06-2024 Patient encounter procedure HAMILTON SOTOAH-AMANKRA [facility] Start: 07-30-2024 End: 07-30-2024 ambulatory HAMILTON SOTOAH-AMANKRA Facility:[facility] Start: 07-30-2024 End: 07-30-2024 Patient encounter procedure HAMILTON SOTOAH-AMANKRA [facility] Start: 07-27-2024 Non-patient / Non-visit PHYSICIAN BALDOMERO [facility] Work Phone: Start: 07-25-2024 End: 07-27-2024 Evaluation and management of inpatient DO Aditya MARIA Facility:[facility] Start: 07-25-2024 Non-patient / Non-visit PHYSICIAN NO [facility] Work Phone: Start: 07-24-2024 Non-patient / Non-visit PHYSICIAN NO [facility] Work Phone: Start: 07-23-2024 End: 07-23-2024 ambulatory HAMILTON VALERAAH-AMANKRA Facility: [place] Start: 07-23-2024 End: 07-23-2024 Patient encounter procedure HAMILTON MAHARAJ-AMANKRA [facility] Start: 07-22-2024 End: 07-22-2024 Admission to same day surgery center HAMILTONSHANE MAHARAJ-LAMARRA [facility] Start: 07-22-2024 End: 07-22-2024 ambulatory HAMILTON VALERAAH-AMANKRA Facility:[facility] Start: 07-05-2024 End: 07-07-2024 Pre-admission assessment HAMILTON VALERAAH-AMANKRA [facility] Start: 07-05-2024 End: 07-05-2024 ambulatory HAMILTON VALERAAH-AMANKRA Facility:[facility] Start: 07-05-2024 End: 07-05-2024 Patient encounter procedure HAMILTON MAHARAJ-NICOLAANKRA [facility] Start: 06-24-2024 Patient encounter status PHYSICIAN N O [facility] Start: 06-24-2024 Preprocedural examination done PHYSICIAN BALDOMERO [facility] Start: 06-24-2024 End: 06-24-2024 Admission to same day surgery center HAMILTONSHANE MAHARAJ-AMANKRA [facility] Start: 06-24-2024 End: 06-24-2024 ambulatory HAMILTON SOTOAH-AMANKRA Facility:[facility] Start: 06-21-2024 End: 06-21-2024 ambulatory NON STAFF [facility] Work Phone: Start: 06-21-2024 End: 06-21-2024 Encounter for other preprocedural examination PHYSICIAN NO [facility] Start: 06-21-2024 End: 06-21-2024 Patient encounter procedure Adamaris Thomasb [employer] Work Phone: [facility] Work Phone: Start: 06-18-2024 End: 06-18-2024 ambulatory HAMILTON MAHARAJ-LAMARRA Facility:[facility] Start: 06-18-2024 End: 06-18-2024 Patient encounter procedure HAMILTON MAHARAJ-AMANKRA [facility] Start: 06-14-2024 Registered Recurring Adamaris Vora ob [employer] Work Phone: [facility] Start: 06-11-2024 End: 06-11-2024 ambulatory HAMILTON SOTOAH-AMANKRA Facility: [facility] Start: 06-11-2024 End: 06-11-2024 Patient encounter procedure HAMILTON MAHARAJ-AMANKRA [facility] Start: 06-04-2024 End: 06-04-2024 Departed Referred Adamaris Thomasb [employer] Work Phone: [facility] [place] Work Phone: Start: 06-04-2024 End: 06-04-2024 ambulatory PHYSICIAN NO [facility] Work Phone: Start: 06-04-2024 End: 06-04-2024 Patient encounter procedure PHYSICIAN NO [facility] Work Phone: Start: 05-26-2024 Non-patient / Non-visit [facility]YSICIAN NO [facility] Work Phone: Start: 05-25-2024 End: 05-25-2024 ambulatory KARON FLORES Facility:[facility] Start: 05-25-2024 End: 05-25-2024 Patient encounter procedure KARON FLORES [facility] Start: 05-19-2024 End: 05-19-2024 Departed Referred PHYSICIAN NO [facility] [place] Work Phone: Start: 05-19-2024 End: 05-19-2024 ambulatory PHYSICIAN NO [facility] Work Phone: Start: 05-19-2024 End: 05-19-2024 Patient encounter procedure PHYSICIAN NO [facility] Work Phone: Start: 05-04-2024 End: 05-05-2024 Clinisync Result Encounter Faiza BURTON Work Phone: [facility] External [facility] Unsolicited Start: 05-04-2024 End: 05-05-2024 Clinisync Result Encounter Faiza BURTON Work Phone: [facility] External [facility] Unsolicited Start: 05-04-2024 Non-patient / Non-visit PHYSICIAN NO [facility] Work Phone: Start: 05-04-2024 Registered Recurring PHYSICIAN NO [facility] Start: 04-21-2024 End: 04-21-2024 [...] Start: 04-21-2024 Non-patient / Non-visit PHYSICIAN NO [facility] Work Phone: Start: 04-21-2024 End: [...] Start: 04-09-2024 Non-patient / Non-visit PHYSICIAN NO [facility] Work Phone: Start: 02-26-2024 End: 02-26-2024 ambulatory Beryl Henderson Facility:[facility] Start: 02-26-2024 End: 02-26-2024 Patient encounter procedure Beryl Henderson [facility] Start: 01-30-2024 End: 01-30-2024 ambulatory PHYSICIAN NO [facility] Work Phone: Start: 01-30-2024 End: 01-30-2024 Patient encounter procedure PHYSICIAN NO [facility] Work Phone: Start: 01-14-2024 End: 01-14-2024 ambulatory Dieter LOCO Facility:[facility] Start: 01-14-2024 End: 01-14-2024 Patient encounter procedure Dieter R NILL [facility] Start: 01-13-2024 ambulatory Dieter R NILL Facility :[facility] Start: 12-31-2023 End: 12-31-2023 ambulatory PHYSICIAN NO [facility] Work Phone: Start: 12-31-2023 End: 12-31-2023 Departed Referred PHYSICIAN NO [facility] Start: 12-31-2023 End: 12-31-2023 ambulatory Dieter R NILL Facility:[id number] Start: 12-09-2023 Registered Recurring PHYSICIAN NO RONNIE [facility] Start: 11-19-2023 End: 11-19-2023 ambulatory Dieter R NILL [facility] Start: 11-19-2023 End: 11-19-2023 Patient encounter procedure Dieter R NILL [facility] N[facility] [place] Start: 11-18-2023 Non-patient / Non-visit PHYSICIAN BALDOMERO [facility] Work Phone: Start: 11-17-2023 ambulatory Dieter NILL Facility:[facility] Start: 11-14-2023 ambulatory Dieter NILL Facility:[facility] Start: 11-12-2023 End: 11-12-2023 ambulatory PHYSICIAN NO [facility] Work Phone: Start: 11-12-2023 End: 11-12-2023 Patient encounter procedure PHYSICIAN NO [facility] Work Phone: Start: 11-04-2023 Registered Recurring PHYSICIAN BALDOMERO [facility] Start: 10-22-2023 Patient encounter status PHYSICIAN N O [facility] Start: 10-22-2023 End: 10-22-2023 Encounter for general adult medical examination without abnormal findings PHYSICIAN NO [facility] Start: 10-22-2023 End: 10-22-2023 Patient encounter procedure PHYSICIAN NO [facility] Work Phone: Start: 09-09-2023 Registered Recurring PHYSICIAN NO RONNIE JORDY [facility] Start: 05-30-2023 End: 05-30-2023 ambulatory Helio Barry Other [facility] Other Start: 05-30-2023 Telephone encounter Helio Barry [facility] [employer] Start: 05-29-2023 Office outpatient ne w 30 minutes Helio Barry [facility] Start: 05-29-2023 End: 05-29-2023 ambulatory MD Seb Barry Work Phone: [facility] Work Phone: Start: 05-29-2023 End: 05-29-2023 Patient encounter procedure MD Seb Barry Work Phone: [facility] Work Phone: Start: 05-16-2023 End: 05-16-2023 ambulatory Seb Barry Other [facility] Other Start: 05-16-2023 Telephone encounter Seb Barry [facility] Start: 05-05-2023 End: 05-05-2023 ambulatory Seb Barry Other [facility] Other Start: 05-05-2023 Office outpatient vi sit 15 minutes Seb Barry [facility] Start: 04-07-2023 End: 04-07-2023 ambulatory Seb Barry Other [facility] Other Start: 04-07-2023 Telephone encounter Seb Barry [facility] Start: 04-01-2023 End: 04-01-2023 ambulatory Seb Barry Other [facility] Other Start: 04-01-2023 Office outpatient vi sit 15 minutes Seb Barry [facility] Start: 12-27-2022 ambulatory GOLDY GLOVER Facility: [facility] Start: 12-23-2022 End: 12-23-2022 ambulatory Goldy Glover Other [facility] Other Start: 12-23-2022 Office outpatient ne w 45 minutes Goldy Glover [facility] [place] Start: 12-06-2022 Telephone encounter Seb Barry [facility] Start: 12-06-2022 End: 12-07-[address] SEB BARRY [facility] Other Start: 11-26-2022 End: 11-27-2022 ambulatory REGULO HINDS Facility:[facility] Start: 11-14-2022 End: 11-15-[address] SEB BARRY Facility:[facility] Start: 05-17-2022 Encounter for genera l adult medical examination without abnormal findings DR SEB BARRY [facility] Start: 05-15-2022 End: 05-16-[address] SEB BARRY Facility:[facility] Start: 05-15-2022 End: 05-16-2022 Encounter for general adult medical examination without abnormal findings DR SEB BARRY Facility:[facility] Start: 05-14-2022 Adult health examination Fidelina Barry Other [facility] Other Start: 04-18-2022 End: 04-18-2022 ambulatory Paresh Marily Other [facility] Other Start: 04-18-2022 Telephone encounter Paresh Marily [facility] Start: 02-27-2022 End: 02-27-2022 ambulatory Paresh Marily Other [facility] Other Start: 02-27-2022 Telephone encounter Paresh Marily [facility] [employer] [employer] Start: 02-05-2022 ambulatory PARESH MARILY Facility:[facility] 1 Start: 12-13-2021 End: 12-13-2021 ambulatory Paresh Marily Other [employer] Other Start: 12-13-2021 Telephone encounter Paresh Marily [facility] Start: 09-19-2021 End: 09-19-2021 ambulatory Paresh [facility] Other [facility] [employer] Other Start: 09-19-2021 Telephone encounter Paresh Marily [facility] Start: 09-05-2021 End: 09-05-2021 ambulatory Paresh [facility] Other [employer] Other Start: 09-05-2021 Telephone encounter Paresh [facility] Procedures Date Procedure Procedure Detail Performing Clinician Start: 01-13-2025 Radionuclide thyroid imaging PHYSICIAN NO FAMILY Start: 01-13-2025 US scan of thyroid PHYS ICIAN NO FAMILY Start: 08-18-2024 Cystoscopy PHYSICIAN NO FAMILY Start: 07-22-2024 Cystoscopy HAMILTON SIMI [employer] Start: 06-24-2024 Cystoscopy HAMILTONANGEL BELCHER SANDEEP-AMANKRA Start: 06-04-2024 Urine culture Adamaris Vora ob [employer] Work Phone: Start: 05-19-2024 Bacteria identified in Urine by Culture PHYSICIAN NO FAMILY Start: 05-19-2024 Urine culture Adamaris ob [employer] Work Phone: Start: 05-04-2024 HIV AB/P24 AG [...] FLORES History of bilateral breast implants Dieter Traitify History of nasal sin us surgery Dieter Traitify Ligation of fallopia n tube Dieter NILL Screening for malign ant neoplasm of breast Seb Barry Other Screening for malign ant neoplasm of colon Seb Barry Other Stapedectomy Dieter Traitify Plan of Treatment Date Care Activity Detail Author Start: 2037 Respiratory Syncytial Virus (RSV) or age 60 yrs+ (1 - 1-dose 75+ series) Respiratory Syncytial Virus (RSV) or age 60 yrs+ (1 - 1-dose 75+ series) [facility] Start: 02-20-2032 DTaP/Tdap/Td vaccine (2 - Td or Tdap) DTaP/Tdap/Td vaccine (2 - Td or Tdap) [facility] Start: 04-21-2029 Screening for malignant neoplasm of cervix [facility] Start: 08-30-2025 End: 08-30-2025 Patient encounter procedure 08/30/2025 8:15 AM EST Office Visit [facility] [address] [place] [phone] Scooby Fitzgerald, DO [address] [place] [address] [facility] Start: 04-25-2025 End: 04-25-2025 Patient encounter procedure [facility] Start: 04-19-2025 End: 04-19-2025 Patient encounter procedure 04/19/2025 10:20 AM EDT Office Visit [facility] [address] [place] [phone] Song Covarrubias MD [address] [place] [address] [facility] Start: 04-11-2025 Influenza vaccination [facility] Start: 03-31-2025 End: 03-31-2025 Patient encounter procedure 03/31/2025 10:50 AM EDT [facility] [address] [place] [phone] Song Covarrubias MD [address] [place] [address] [facility] Start: 03-21-2025 End: 03-21-2025 Patient encounter procedure 03/21/2025 9:00 AM EDT Appointment [facility] Physical Therapy [address] [place] [phone] Alla Tran [facility]TA [facility] Start: 03-14-2025 End: 03-14-2025 Patient encounter procedure 03/14/2025 9:00 AM EDT Appointment [facility] Physical Therapy [address] [place] [id number] Alla Tran [facility]TA [facility] Start: 03-14-2025 ambulatory Ambulatory [facility] Start: 03-11-2025 Influenza vaccination Flu vaccine (#1) [facility] Start: 03-09-2025 End: 03-09-2025 Patient encounter procedure 03/09/2025 11:15 AM EDT Appointment [facility] Physical Therapy [address] [place] [id number] Alla Tran [facility]TA [facility] Start: 02-28-2025 End: 02-28-2025 Patient encounter procedure 02/28/2025 11:15 AM EDT Appointment [facility] Physical Therapy [address] [place] [id number] Alla Tran PTA [facility] Start: 02-22-2025 End: 02-22-2025 Patient encounter procedure 02/22/2025 8:00 AM EDT Office Visit [facility] [address] [place] [phone] Scooby Fitzgerald, DO [address] [place] [address] Arrived [facility] Comment on above: Arrived Start: 02-21-2025 End: 02-21-2025 Patient encounter procedure 02/21/2025 3:45 PM EDT Appointment [facility] Physical Therapy [address] [place] [phone] Alla Tran PTA [facility] Physical Therapy Start: 02-08-2025 End: 02-08-2025 Patient encounter procedure 02/08/2025 10:00 AM EDT Office Visit [facility] [address] [place] [address] Scooby Fitzgerald, DO [address] [place] [address] Multinodular goiter [facility] Comment on above: Multinodular goiter Start: 01-18-2025 End: 01-18-2026 Hepatic function 2000 panel - Serum or Plasma Hepatic function panel Lab Routine Hyperthyroidism (CMS/HCC) Expected: 01/18/2025 (Approximate), Expires: 01/18/2026 [facility] Comment on above: Expected: 01/18/2025 (Approximate), Expi res: 01/18/2026 Start: 01-18-2025 End: 01-18-2026 Thyrotropin [Units/volume] in Serum or Plasma TSH Lab Routine Hyperthyroidism (CMS/HCC) Expected: 01/18/2025 (Approximate), Expires: 01/18/2026 [facility] Comment on above: Expected: 01/18/2025 (Approximate), Expi res: 01/18/2026 Start: 01-18-2025 End: 01-18-2026 Thyroxine (T4) free [Mass/volume] in Serum or Plasma T4, free Lab Routine Hyperthyroidism (CMS/HCC) Expected: 01/18/2025 (Approximate), Expires: 01/18/2026 [facility] Comment on above: Expected: 01/18/2025 (Approximate), Expi res: 01/18/2026 Start: 01-18-2025 End: 01-18-2026 Triiodothyronine (T3) Free [Mass/volume] in Serum or Plasma T3, free Lab Routine Hyperthyroidism (CMS/HCC) Expected: 01/18/2025 (Approximate), Expires: 01/18/2026 [facility] Work Phone: Comment on above: Expected: 01/18/2025 (Approximate), Expi res: 01/18/2026 Start: 01-18-2025 End: 01-18-2025 Patient encounter procedure 01/18/2025 10:00 AM EDT Office Visit [facility] [address] [place] [phone] Song Covarrubias MD [address] [place] [address] Arrived [facility] Comment on above: Arrived Start: 01-13-2025 Radionuclide thyroid imaging [facility] Start: 12-14-2024 End: 12-14-2025 Hepatic function 2000 panel - Serum or Plasma Hepatic function panel Lab Routine Hyperthyroidism (CMS/HCC) Expected: 12/14/2024 (Approximate), Expires: 12/14/2025 [facility] Comment on above: Expected: 12/14/2024 (Approximate), Expi res: 12/14/2025 Start: 12-14-2024 End: 12-14-2025 NM Thyroid gland Uptake Nuclear Medicine thyroid uptake and scan Imaging Routine Hyperthyroidism (CMS/HCC) Expected: 12/14/2024, Expires: 12/14/2025 [facility] Comment on above: Expected: 12/14/2024, Expires: Start: 12-14-2024 End: 12-14-2025 Thyroglobulin Antibody Thyroglobulin Antibody Lab Routine Hyperthyroidism (CMS/HCC) Expected: 12/14/2024 (Approximate), Expires: 12/14/2025 [facility] Work Phone: Comment on above: Expected: 12/14/2024 (Approximate), Expi res: 12/14/2025 Start: 12-14-2024 End: 12-14-2025 Thyroid peroxidase antibody Thyroid peroxidase antibody Lab Routine Hyperthyroidism ([facility]/HCC) Expected: 12/14/2024 (Approximate), Expires: 12/14/2025 [facility] Comment on above: Expected: 12/14/2024 (Approximate), Expi res: 12/14/2025 Start: 12-14-2024 End: 12-14-2025 Thyrotropin [Units/volume] in Serum or Plasma TSH Lab Routine Hyperthyroidism ([facility]/HCC) Expected: 12/14/2024 (Approximate), Expires: 12/14/2025 [facility] Comment on above: Expected: 12/14/2024 (Approximate), Expi res: 12/14/2025 Start: 12-14-2024 End: 12-14-2025 Thyrotropin receptor antibody Thyrotropin receptor antibody Lab Routine Hyperthyroidism ([facility]/HCC) Expected: 12/14/2024 (Approximate), Expires: 12/14/2025 [facility] Comment on above: Expected: 12/14/2024 (Approximate), Expi res: 12/14/2025 Start: 12-14-2024 End: 12-14-2025 Thyroxine (T4) free [Mass/volume] in Serum or Plasma T4, free Lab Routine Hyperthyroidism ([facility]/HCC) Expected: 12/14/2024 (Approximate), Expires: 12/14/2025 [facility] Comment on above: Expected: 12/14/2024 (Approximate), Expi res: 12/14/2025 Start: 12-14-2024 End: 12-14-2025 Triiodothyronine (T3) Free [Mass/volume] in Serum or Plasma T3, free Lab Routine Hyperthyroidism ([facility]/HCC) Expected: 12/14/2024 (Approximate), Expires: 12/14/2025 [facility] Comment on above: Expected: 12/14/2024 (Approximate), Expi res: 12/14/2025 Start: 12-14-2024 End: 12-14-2025 US Thyroid gland US thyroid Imaging Routine Hyperthyroidism (CMS/HCC) Expected: 12/14/2024, Expires: 12/14/2025 [facility] Comment on above: Expected: 12/14/2024, Expires: Start: 12-14-2024 End: 12-14-2024 Patient encounter procedure 12/14/2024 10:20 AM EDT Office Visit [facility] [address] [place] [address] Song Covarrubias MD [address] [place] [address] Arrived [facility] Comment on above: Arrived Start: 08-18-2024 End: 08-18-2024 [facility] Start: 06-04-2024 Urine culture [facility] Start: 05-19-2024 Bacteria identified in Urine by Culture Urine Culture [facility] Start: 05-19-2024 Urine culture [facility] Start: 04-21-2024 End: 04-21-2025 DXA Skeletal system Views for bone density DEXA bone density Imaging Routine Postmenopausal state Expected: 04/21/2024 (Approximate), Expires: 04/21/2025 [facility] Comment on above: Expected: 04/21/2024 (Approximate), Expi res: 04/21/2025 Start: 04-21-2024 End: 06-21-2025 MG Breast - bilateral Screening Bilateral screening mammogram Imaging Routine Breast cancer screening by mammogram Expected: 04/21/2024, Expires: 06/21/2025 [facility] Comment on above: Expected: 04/21/2024, Expires: Start: 04-11-2024 COVID-19 Vaccine ( season) COVID-19 Vaccine ( season) [facility] Start: 04-11-2024 Influenza vaccination Influenza Vaccine (#1) [facility] Start: 11-12-2023 Patient referral [facility] Work Phone: Start: 09-02-2020 Screening for malignant neoplasm of breast Mammogram [facility] Start: 2012 Pneumococcal 50+ years Vaccine (1 of 1 - PCV) Pneumococcal 50+ years Vaccine (1 of 1 - PCV) [facility] Start: 2012 Shingles vaccine (1 of 2) Shingles vaccine (1 of 2) [facility] Start: 2007 Screening for malignant neoplasm of colon [facility] Start: 2002 Lipid panel Lipids [facility] Start: 2002 Screening for malignant neoplasm of breast Breast cancer screen [facility] Start: 1992 Screening for malignant neoplasm of cervix [facility] Start: 1983 Screening for malignant neoplasm of cervix Pap Smear [facility] Start: 1980 Hepatitis C screening Hepatitis C screen [facility] Start: 1977 HIV screening HIV screen [facility] Start: 1974 Depression Screen Depression Screen [facility] Start: 1962 Screening for malignant neoplasm of colon [facility] CHLAMYDIA TRACHOMATI S (GENITO/STI) CHLAMYDIA TRACHOMATIS (GENITO/STI) Lab Routine Exposure to STD Vaginal discharge Ordered: 04/21/2024 [facility] Comment on above: Ordered: 04/21/2024 Hepatitis B virus surface Ag [Presence] in Serum or Plasma by Immunoassay Hepatitis B surface antigen Lab Routine Sexually transmitted disease exposure Ordered: 04/21/2024 [facility] Comment on above: Ordered: 04/21/2024 HIV-1/HIV-2 antigen/antibody combination immunoassay HIV-1 and HIV-2 antibodies Lab Routine Sexually transmitted disease exposure Ordered: 04/21/2024 [facility] Comment on above: Ordered: 04/21/2024 MG Breast - bilatera l Diagnostic [facility] MG Breast - bilatera l Screening [facility] Neisseria gonorrhoea e DNA [Presence] in Unspecified specimen by LILLY with probe detection Neisseria gonorrhea DNA probe, direct Lab Routine Exposure to STD Vaginal discharge Ordered: 04/21/2024 [facility] Comment on above: Ordered: 04/21/2024 Patient Education [facility] Work Phone: Patient referral [facility] Work Phone: Reagin Ab [Presence] in Serum by RPR RPR Lab Routine Sexually transmitted disease exposure Ordered: 04/21/2024 [facility] Comment on above: Ordered: 04/21/2024 SURESWAB(R) ADVANCED VAGINITIS PLUS, TMA SURESWAB(R) ADVANCED VAGINITIS PLUS, TMA Pathology and Cytology Routine Exposure to STD Vaginal discharge Ordered: 04/21/2024 [facility] Work Phone: Comment on above: Ordered: 04/21/2024 THIN PREP TIS PAP AN D HR HPV DNA THIN PREP TIS PAP AND HR HPV DNA Pathology and Cytology Routine Well woman exam with routine gynecological exam Ordered: 04/21/2024 [facility] Comment on above: Ordered: 04/21/2024 Immunizations Immunization Date Immunization Notes Care Provider Ronnie bran 10-12-2022 influenza virus vaccine, unspecified formulation Dieter LOCO [facility] [place] 10-12-2022 influenza, injectabl e, quadrivalent, preservative free Seb Barry Other [facility] 02-19-2022 diphtheria, tetanus toxoids and acellular pertussis vaccine, unspecified formulation Seb Barry Other [facility] 02-19-2022 tetanus toxoid, reduced diphtheria toxoid, and acellular pertussis vaccine, adsorbed Seb Barry Other [facility] 08-07-2021 COVID-19 Vaccine Moderna - Documentation Purposes Only Seb Barry Other [facility] 05-28-2021 influenza virus vaccine, split virus (incl. purified surface antigen) Seb Barry Other [facility] 05-28-2021 influenza virus vaccine, unspecified formulation PHYSICIAN [facility] 05-28-2021 influenza, injectabl e, quadrivalent, preservative free Scooby Fitzgerald DO Work Phone: [facility] 12-09-2020 COVID-19 Vaccine Moderna - Documentation Purposes Only Seb Barry Other [facility] 11-11-2020 COVID-19 Vaccine Moderna - Documentation Purposes Only Seb Barry Other [facility] Payers Date Payer Category Payer Private Health Insurance [id number] 2024 Private Health Insurance [id number] 2021 Managed Care HMO (unspecified) [id number] 315 1962 Unknown [id number] 2.16.84 0.1.301399.3.579.2.593 1962 Unknown [id number] 2.16.84 0.1.161412.3.579.2.593 1962 Unknown [id number] 2.16.84 0.1.497088.3.579.2.593 1962 Unknown [id number] 2.16.84 0.1.697334.3.579.2.593 1962 Unknown [id number] 2.16.84 0.1.438299.3.579.2.593 1962 Unknown [id number] 2.16.84 0.1.872116.3.579.2.593 1962 Unknown [id number] 2.16.840.1.164864.3.579.2.727 1962 Unknown [id number] 2.16.840.1.441092.3.579.2.727 1962 Unknown [id number] 2.16.840.1.310602.3.579.2.727 1962 Unknown [id number] 2.16.840.1.147256.3.579.2.7 1962 Unknown [id number] 2.16.840.1.822524.3.579.2. 1962 Unknown [id number] 2.16.840.1.460405.3.579.2. 1962 Unknown [id number] 2.16.840.1.368284.3.579.2 1962 Unknown [id number] 2.16.840.1.633301.3.579.2 1962 Unknown [id number] 2.16.840.1.998524.3.579.2 1962 Unknown [id number] 2.16.840.1.594016.3.579.2 1962 Unknown [id number] 2.16.840.1.048352.3.579.2 1962 Unknown [id number] 2.16.840.1.119327.3.579.2 1962 Unknown [id number] 2.16.840.1.983879.3.579.2 1962 Unknown [id number] 2.16.840.1.288207.3.579.2 1962 Unknown [id number] 2.16.840.1.361473.3.579.2 1962 Unknown [id number] 2.16.840.1.852930.3.579.2 1962 Unknown [id number] 2.16.840.1.993981.3.579.2 1962 Unknown [id number] 2.16.840.1.771259.3.579.2 1962 Unknown [id number] 2.16.840.1.373151.3.579.2.727 1962 Unknown [id number] 2.16.840.1.553903.3.579.2.727 1962 Unknown [id number] 2.16.840.1.290311.3.579.2.727 1962 Unknown [id number] 2.16.840.1.376932.3.579.2.727 1962 Unknown [id number] 2.16.840.1.794967.3.579.2.1259 1962 Unknown [id number] 2.16.840.1.234721.3.579.2.1259 1962 Unknown [id number] 2.16.840.1.439668.3.579.2.1259 1962 Unknown [id number] 2.16.840.1.962426.3.579.2.1259 1962 Unknown [id number] 2.16.840.1.131141.3.579.2.1259 1962 Unknown [id number] 2.16.840.1.504185.3.579.2.1259 1962 Unknown [id number] 2.16.840.1.325475.3.579.2.173 1962 Unknown [id number] 2.16.840.1.473956.3.579.2.173 1962 Unknown [id number] 2.16.840.1.368883.3.579.2.173 1962 Unknown [id number] 2.16.840.1.741719.3.579.2.173 1959 Private Health Insurance [id number] 2.16.840.1.811730.19 1959 Private Health Insurance [id number] Self-pay [employer] [id number] 2.16.840.1.775432.19 Private Health Insurance [id number] Unknown [id number] 2.16.840.1.164426.3.579.2.531 Unknown [id number] 2.16840.1.168866.3.579.2.531 Unknown [id number] 2.16.840.1.587982.3.579.2.531 Unknown [id number] 2.840.1.790320.3.579.2.531 Unknown [id number] 2.16840.1.818659.3.579.2.531 Social History Date Type Detail Facility Start: 02-08-2025 End: 03-08-2025 Sex Assigned At [facility] Start: 1960 Sex Assigned At Female F [facility] Start: 05-29-2023 End: 02-08-2025 Tobacco smoking status NHIS Never smoked tobacco (finding) [facility] Tobacco smoking status Never [facility] Start: 06-21-2024 End: 01-26-2025 Sex Female (finding) [facility] Tobacco smoking stat us WYIS Tobacco smoking consumption unknown [facility] Start: 1960 Sex assigned at Not on file [facility] Sexual Orientation [facility] Start: 01-14-2025 Sex Patient sex un known (finding) [facility] Start: 02-08-2025 Tobacco use and exposure Smokeless tobacco non-user [facility] Start: 02-08-2025 End: 03-08-2025 Alcoholic beverage intake Ex-drinker (finding) [facility] Start: 02-08-2025 End: 03-08-2025 History of Social function [facility] Medical Equipment Procedure Code Equipment Code Equipment Origin al Text Equipment Identifier Dates KATIET SUDHAKAR MALONE MD, HAMILTON 07/22/24 Unknown Other FDA Start: 07-22-2024 REGLA MALONE MD, H[place]ILTON 07/22/24 Unknown Other FDA Start: 07-22-2024 REGLA MALONE MD, HAMILTON 07/22/24 Unknown Other FDA [...] to Contagion Telehealth Patient [facility] 08-06-2024 Functional Status N/A [facility] 07-30-2024 Functional Status N/A [facility] 07-25-2024 Functional Status No [facility] 07-06-2024 Functional Status No [facility] 07-05-2024 Functional Status N/A [facility] 06-18-2024 Functional Status No [facility] 06-11-2024 Functional Status N/A [facility] 05-25-2024 Functional Status N/A [facility] 11-19-2023 Functional Status N/A [facility] [place] Clinical Notes 12-13-2021 to 03-08-2025 Scooby Fitzgerald, DO - 03/08/2025 8:45 AM EDRichie Fitzgerald, DO - 02/22/2025 8:00 AM Albertina Carlson - 02/21/2025 3:45 PM EDRichie Fitzgerald, DO - 02/08/2025 10:00 AM EDT Note Date & Type Note Facility 03-08-2025 History of Present illness Narrative HPI Patient presents today status post FNA of a left inferior thyroid nodule. This initially came back as [place] III, then was sent for ThyroSeq testing which came back at less than 3 percent chance of malignancy. I made the patient aware of that. Relevant postoperative physical examination Unremarkable Assessment/plan Rain was seen today for thyroid nodule. Diagnoses and all orders for this visit: Thyroid nodule (Primary) Comments: I recommend repeating the ultrasound in my office in 6 months. She needs to follow-up with Dr. Yeager about her hyperthyroidism. documented in this encounter [facility] 02-22-2025 History of Present illness Narrative Subjective Patient ID: DANITA Presents today for FNA of a left inferior thyroid nodule. Informed consent was obtained. She also brings to my attention that she has sleep apnea. She has never undergone a formal sleep study however she has been noted to have obvious apnea and feels like it is her tongue occluding the back of her throat. Review of Systems ROS The specialty specific [...] and oriented to person, place, and time. ULTRASOUND GUIDED FNA Thyroid gland was palpated. The __ left inferior thyroid nodule be biopsied have been identified by ultrasound.The skin was cleaned with alcohol. The skin above the nodule was anesthetized with an injection of 1% xylocaine with epi. The patient was asked not to talk or swallow during the procedure. A fine gauge biopsy needle was inserted under US visualization and multiple passes were taken. Aspiration of thyroid nodule was performed and material was prepared for both slides and cell block. Three individual passes were made. Material was also obtained for potential molecular testing. Assessment/Plan Rain was seen today for thyroid nodule. Diagnoses and all orders for this visit: Thyroid nodule (Primary) Comments: Patient tolerated procedure without complication, I will see her back in 2 weeks to discuss pathology. SHARON (obstructive sleep apnea) Comments: Given the patient's physical examination as well as history a sleep study is in order. We will get that ordered. documented in this encounter [facility] 02-21-2025 History of Present illness Narrative Physical Therapy [facility] Inpatient/Observation/Outpatient Rehabilitation Date: 02/21/2025 Patient Name: Rain Sweeney [] Inpatient Acute/Observation [x] Outpatient : 1960 Plan of Care/Recert ends [] Pt refused/declined therapy at this time due to: [x] Pt cancelled due to: [] No Reason Given [] Sick/ill [x] Other: said she wasn't going to make it in time [] Evaluation held by RN/Provider/Physical Therapist due to: [] High Heart Rate [] High Blood Pressure [] Orthopedic Consult [] Hgb < 7 [] Other: [] Pt ordered brace per physician request: [] Proper fit will be completed and education for wearing/skin checks [] Pt does not require skilled services due to: Therapist/Passenger Service Manager will attempt to see this patient, at our earliest opportunity. Albertina Luna Date: 02/21/2025 Cosigned by Alla Tran PTA at 02/21/2025 3:37 PM EDT documented in this encounter [facility] 02-08-2025 History of Present illness Narrative Subjective [...] the near future documented in this encounter [facility] 01-21-2025 Evaluation note Diagnosis Onset Date Resolution Abnormal TSH acute January 21, 025 9:51am Overweight with body mass index (BMI) of 28 to 28.9 in adult acute January 21, 2025 9:51am Rectocele acute January 21 9:51am Screening mammogram for breast cancer acute January 21 9:51am [facility] Work Phone: [phone]) 916-173606-10-2025 History of Present illness Narrative* Song Covarrubias MD - 01/18/2025 10:00 AM [...] she attributes to her long-term lithium use. Chicken has been part of her treatment regimen [...] up in 3 months. [facility] [id number] Radiology Diagnostic study noteUNIVERSITY [facility] [place] [address] Ultrasound Report Signed Patient: Rain Sweeney MR#: [id number] : 1960 Acct:[id number] Age/Sex: 64 / F ADM Date: 5 Loc: Room: Type: [facility] Attending Dr: Song Covarrubias MD Ordering [...] x 8 mm. There is also a no dulewith similar characteristics at the inferior pole on the left that measures 15 x13 x 15 mm. US/US thyroid IMPRESSION: HETEROGENEOUS HYPEREMIC THYROID. BILATERAL THYROID NODULES. Impression dictated by: Denae Kellogg M.D. 01/13/2025 9:02 AM Dictation Location: [place] [address] Tech: Nara Heaton Transcribed By: BRYSON 01/13/25901 Dictated By: Denae Kellogg MD 01/13/25899 Signed By: 01/13/25901 [facility] Work Phone: [phone] History of Present illness Narrative* Song Covarrubias MD - 12/14/2024 10:20 AM EDT Rain Carvalho is a 64 y.o. female Seb Barry MD presents with chief complaint of Thyroid Problem (NEW REF/LAB) HPI: History of Present Illness The patient is a 64-year-old female who presents for evaluation of hyperthyroidism. Her TSH level is 0.02. She reports experiencing tremors, which she attributes to her long-term lithium use. Chicken has been part of her treatment regimen [...] T3, and thyroid antibodies will be ordered. Athyroid ultrasound and a thyroid scan and uptake [...] up in 2 weeks. documented in this encounterJohn J. Pershing VA Medical [id number] NotePatient Education Obstetrics and Gynecology Acute Urinary Retention, Female Acute urinary retention is a condition in which a person is unable to pass urine or can only pass alittle urine. This condition can happen suddenly and [...] to trauma or because she does not wantto use the bathroom. ??? History of preexisting [...] these instructions at home: Medicines ??? Take dyre-roj-vcsqrfd and prescription medicines only as told by your health care provider. Avoid certain medicines, such as decongestants, antihistamines, and some prescription medicines. Do nottake any medicine unless your health care provider approves. ??? If you were prescribed an antibiotic medicine, take it as told by your health care provider. Donot stop using the antibiotic even if you [...] narrowing of the tube that drains the bladder(urethra). This may be caused by surgery, problems [...] provider. Document Revised: 04/18/2021 Document Reviewed: 04/18/2021 [employer] Patient Education ? 2023 [employer] 08-13-2024 Hospital Discharge instructions Patient [...] including vitamins, herbs, eye drops, creams, and qerw-het-toalbru medicines. Any problems you or family members [...] provider tells you to take them. Taking fzfc-hft-tqnjjwm medicines, vitamins, herbs, and supplements. Surgery safety [...] provider. Document Revised: 03/02/2021 Document Reviewed: 03/02/2021 [employer] Patient Education 2023 [employer]. Follow Up Care 08/09/2024 13:50:24 With:GABBY RAMIREZ, HAMILTON, URL Address: When: Unknown Comments:oral che of [facility] 01-03-2025 NotePatient Education Obstetrics and Gynecology Urethral Vaginal [...] including vitamins, herbs, eye drops, creams, and rlvh-yyq-lsuqzhk medicines. ??? Any problems you or family [...] tells you to take them. ??? Taking hntk-jyv-futrogl medicines, vitamins, herbs, and supplements. Surgery safety [...] your bladder w (more content notincluded)...[facility]12-27-2024 Hospital Discharge instructions Patient Education 08/06/2024 09:37:06 Acute Urinary Retention, Female Acute Urinary Retention, Female Acute urinary retention is a condition in which a person is unable to pass urine or can only pass alittle urine. This condition can happen suddenly and [...] Follow these instructions at home: Medicines Take yoqa-uca-ebxcjye and prescription medicines only as told by your health care provider. Avoid certain medicines, such as decongestants, antihistamines, and some prescription medicines. Do not take any medicine unless your health care provider approves. If you were prescribed an antibiotic medicine, take it as told by your health care provider. Do notstop using the antibiotic even if you start to feel better. General instructions Do not use any products that contain nicotine or tobacco. These products include cigarettes, chewing tobacco, and vaping devices, such as e-cigarettes. If you need help quitting, ask your health careprovider. Drink enough fluid to keep your urine [...] to pass urine or can only pass alittle urine. If left untreated, this can result [...] provider. Document Revised: 04/18/2021 Document Reviewed: 04/18/2021 [employer] Patient Education 2023 [employer]. Follow Up Care 08/02/2024 14:16:42 With:HAMILTON MALONE MD, URL Address: When: Unknown [facility] 12-27-2024 NotePatient Education Obstetrics and Gynecology Acute Urinary Retention, Female Acute urinary retention is a condition in which a person is unable to pass urine or can only pass alittle urine. This condition can happen suddenly and [...] to trauma or because she does not wantto use the bathroom. ??? History of preexisting [...] these instructions at home: Medicines ??? Take rwfo-amj-nnncdbl and prescription medicines only as told by your health care provider. Avoid certain medicines, such as decongestants, antihistamines, and some prescription medicines. Do nottake any medicine unless your health care provider approves. ??? If you were prescribed an antibiotic medicine, take it as told by your health care provider. Donot stop using the antibiotic even if you [...] narrowing of the tube that drains the bladder(urethra). This may be caused by surgery, problems [...] provider. Document Revised: 04/18/2021 Document Reviewed: 04/18/2021 [employer] Patient Education ? 2023 [facility] Discharge instructions Patient Education 07/30/2024 10:24:20 Acute Urinary Retention, Female Acute Urinary Retention, Female Acute urinary retention is a condition in which a person is unable to pass urine or can only pass alittle urine. This condition can happen suddenly and [...] Follow these instructions at home: Medicines Take ymbt-fli-zcivrvw and prescription medicines only as told by your health care provider. Avoid certain medicines, such as decongestants, antihistamines, and some prescription medicines. Do not take any medicine unless your health care provider approves. If you were prescribed an antibiotic medicine, take it as told by your health care provider. Do notstop using the antibiotic even if you start to feel better. General instructions Do not use any products that contain nicotine or tobacco. These products include cigarettes, chewing tobacco, and vaping devices, such as e-cigarettes. If you need help quitting, ask your health careprovider. Drink enough fluid to keep your urine [...] to pass urine or can only pass alittle urine. If left untreated, this can result [...] provider. Document Revised: 04/18/2021 Document Reviewed: 04/18/2021 [employer] Patient Education 2023 [employer]. Follow Up Care 07/27/2024 11:12:51 With:GABBY RAMIREZ, HAMILTON, URL Address: When:Within 4 Week(s) Comments:marc FERGUSON [facility] [id number] NotePatient Education Obstetrics and Gynecology Acute Urinary Retention, Female Acute urinary retention is a condition in which a person is unable to pass urine or can only pass alittle urine. This condition can happen suddenly and [...] to trauma or because she does not wantto use the bathroom. ??? History of preexisting [...] these instructions at home: Medicines ??? Take koqv-oxh-qwpbkvd and prescription medicines only as told by your health care provider. Avoid certain medicines, such as decongestants, antihistamines, and some prescription medicines. Do nottake any medicine unless your health care provider approves. ??? If you were prescribed an antibiotic medicine, take it as told by your health care provider. Donot stop using the antibiotic even if you [...] narrowing of the tube that drains the bladder(urethra). This may be caused by surgery, problems [...] provider. Document Revised: 04/18/2021 Document Reviewed: 04/18/2021 [employer] Patient Education ? 2023 [employer] 07-27-2024 Evaluation + Plan noteExtracted from: Title:Discharge Note Author:Eri WALDROP MD ate:07/27/24 Stable Discharge To, Anticipated II - [...] HAMILTON MALONE Within 5 to 7 days [facility] [place] [address] [phone] Business (1) Additional Instructions: Call for followup appointment SEB BARRY Within 5 to 7 days [facility] [place] [phone]- Business (1) Additional Instructions: Call for followup appointment Sepsis, Diagnosis, Adult Extracted from: Title:APSO Note Author:Eri WALDROP MD Date:09/26/23 64-year-old female with hist ory of coronary artery disease, IL, sleep apnea, bipolar disorder, recent mid urethral sling implantation presented from an outside hospital with complaints of lower abdominal pain, pelvic pain, swelling and was admitted with acute kidney injury secondary to acute urinary retention, constipation sepsis secondary to suspected Labial cellulitis.. 1. Abdominal pain (R10.9: Unspecified abdominal pain) Secondary to acute urinary retention present on admission. Resolved. Avoid narcotics. Ordered: [facility] Hospital Care/Day Moderate 35 Minutes 47427 2. Acute kidney injury (N17.9: Acute kidney failure, unspecified) Acute kidney injury secondary to ATN from dehydration and urinary retention/obstruction. Resolved. Status post Lyn catheter placement. Treated with IV fluid. Discontinued IV fluid. Ordered: [facility] Hospital Care/Day Moderate 35 Minutes 71074 3. Acute urinary retention (R33.8: Other retention of urine) Secondary to recent surgery. Status post Lyn catheter placement. Ordered: [facility] Hospital Care/Day Moderate 35 Minutes 37920 4. Constipation (K59.00: Constipation, unspecified) Postoperatively. Resolved. Avoid narcotics. Continue on Colace. Ordered: [facility] Hospital Care/Day Moderate 35 Minutes 55725 5. Sepsis (A41.9: Sepsis, unspecified organism) Suspected to be present at the outside facility patient had leukocytosis, tachycardia and elevated lactic acid presumed secondary to labial cellulitis. Sepsis resolved. Treating with IV cefepime. Discontinued IV fluid. Ordered: [facility]/Day Moderate 35 Minutes 77050 6. Obese (E66.9: Obesity, unspecified) Recommend therapeutic lifestyle modification changes. 7. Cystocele with rectocele (N81.10: Cystocele, unspecified) Status post surgery. Urology consult reviewed by me. I appreciate and agree with recommendations. 8. Gastroesophageal reflux disease (K21.9: Gastro-esophageal reflux disease without esophagitis) Supportive care. 9. Bipolar illness (F31.9: Bipolar disorder, unspecified) Continue on lithium. 10. On deep vein thrombosis (DVT) prophylaxis (Z79.899: Other bed bug exterminator (current) drug therapy) Lovenox. Disposition: Home soon pending final urology recommendations. I discussed the diagnosis and plan of care with the patient at the bedside. Moderate level of MDM based on addressing above issues. This documentation was transcribed using voice recognition software. Several attempts were made to ensure accuracy. However inadvertent computerized corporate vp advertising & online errors may be present. Eri Waldrop. Hospitalist. [...] (renally dosed). Blood cultures were obtained at [facility] prior to initiation of Cipro and [...] deep vein thrombosis (DVT) prophylaxis (Z79.899: Other bed bug exterminator (current) drug therapy) SCD, enoxaparin Orders: acetaminophen, [...] Metabolic Panel Consult to Urology Lactic Acid Chicken Lev Notify Provider Vital Signs Notify Provider [...] coronary artery disease with a history of IL, sleep apnea and radiculopathy. A/P: 1. Sepsis - Secondary to abdominal pain with recent surgery and acute kidney injury - Follow-up cultures obtained at [facility] - Continue IV cefepime; she can received Cipro and clindamycin at [facility] - She did get adequate fluid resuscitation in the outlying emergency room - She is currently on normal saline 150 mL an hour 2. Abdominal pain - Morphine as needed; I did add Percocet per her request - Urology consulted 3. Acute kidney injury - After fluid resuscitation, her creatinine went from 4.0 at [facility] to 1.8 - Check lab in a.m. 4. Bipolar disorder - We did add back her lithium plus her oxcarbazepine and venlafaxine DVT prophylaxis with SCDs and subcu enoxaparin Ulcer prophylaxis with p.o. PPI Nursing is also asking something for anxiety is very anxious on occasion - po ativan added as needed Future Appointments Appointment Date:07/30/2024 02:30:00 PM Scheduled Provider:HAMILTON MALONE MD Location:[facility] Appointment Type:URO Office Visit [facility] 12-17-2024 NoteDischarge Summary Admission and [...] female with history of coronary artery disease, IL, sleep apnea, bipolar disorder, rectocele/cystocele - recent [...] MALONE Within 5 to 7 days [address] [place] [address] [phone] Business (1) Additional Instructions: Call for followup appointment SEB BARRY Within 5 to 7 days [facility] [place] [phone] Business (1) Additional Instructions: Call for followup appointment Patient Education Sepsis, Diagnosis, AdultFisher [facility] Medical CenterComment on above:Result Comment: Electronically Signed By: KARLI RAMIREZ, Karolinaanefo\.br\Date and Time Signed: 07/27/24 08:46 [id number] NoteProgress Note-Nurse did a void trial, failed after two outputs. First bladder scan 480, second 841. Called Dr Dorantes, placed Lyn catheter for retention; well tolerated by patient. Great output; see documentation. InformDr jak, Dr Dorantes ok with d/c with Lyn catheter to [...] Follow these instructions at home: Medicines Take sayu-xoy-rhywqff and prescription medicines only as told by [...] provider. Document Revised: 06/30/2023 Document Reviewed: 06/30/2023 [employer] Patient Education 2023 [employer]. Follow Up Care 07/25/2024 00:44:54 With:HAMILTON MALONE Address: [address] [place] [id number] [phone] Business (1) When:5 to 7 days Comments:Call for followup appointment With:SEB BARRY Address: [address] [place] [phone] Business (1) When:5 to 7 days Comments:Call for followup appointment [facility] 12-16-2024 NoteProgress Note-Nurse Patient voided but forgot to place call light on; will do bladder scan again. Instructed again to place light on TYE to preform. Was on phone with girlfriend; forgot. No complaints at this time. Voided 100ml with one small red clotFisher David Medical [id number] NoteProgress Note-Physician Assessment/Plan 64-year-old female with history of coronary artery disease, IL, sleep apnea, bipolar disorder, recent mid urethral sling implantation presented from an outside hospital with complaints of lower abdominal pain, pelvic pain, swelling and was admitted with acute kidney injury secondary to acute urinary retention, constipation sepsis secondary to suspected Labial cellulitis.. 1. Abdominal pain (R10.9: Unspecified abdominal pain) Secondary to acute urinary retention???present on admission. Resolved. Avoid narcotics. Ordered: [facility] Hospital Care/Day Moderate 35 Minutes 14373 2. Acute kidney injury (N17.9: Acute kidney failure, unspecified) Acute kidney injury???secondary to ATN from dehydration and urinary retention/obstruction. Resolved. Status post Lyn catheter placement. Treated with IV fluid. Discontinued IV fluid. Ordered: [facility]/Day Moderate 35 Minutes 55614 3. Acute urinary retention (R33.8: Other retention of urine) Secondary to recent surgery. Status post Lyn catheter placement. Ordered: [facility] Care/Day Moderate 35 Minutes 08015 4. Constipation (K59.00: Constipation, unspecified) Postoperatively. Resolved. Avoid narcotics. Continue on Colace. Ordered: [facility] Care/Day Moderate 35 Minutes 97129 5. Sepsis (A41.9: Sepsis, unspecified organism) Suspected to be present at the outside facility???patient had leukocytosis, tachycardia and elevated lactic acid???presumed secondary to labial cellulitis. Sepsis resolved. Treating with IV cefepime. Discontinued IV fluid. Ordered: [facility] Hospital Care/Day Moderate 35 Minutes 30009 6. Obese (E66.9: Obesity, unspecified) Recommend therapeutic lifestyle modification changes. 7. Cystocele with rectocele (N81.10: Cystocele, unspecified) Status post surgery. Urology consult reviewed by me. I appreciate and agree with recommendations. 8. Gastroesophageal reflux disease (K21.9: Gastro-esophageal reflux disease without esophagitis) Supportive care. 9. Bipolar illness (F31.9: Bipolar disorder, unspecified) Continue on lithium. 10. On deep vein thrombosis (DVT) prophylaxis (Z79.899: Other bed bug exterminator (current) drug therapy) Lovenox. Disposition: Home soon pending final urology recommendations. I discussed the diagnosis and plan of care with the patient at the bedside. Moderate level of MDM based on addressing above issues. This documentation was transcribed using voice recognition software. Several attempts were made to ensure accuracy. However inadvertent computerized corporate vp advertising & online errors may be present. Eri Waldrop. Hospitalist. [...] RAMIREZ, Eri\.br\Date and Time Signed: 07/26/24 09:36 [id number] NoteProgress Note-Physician Patient: RAIN SWEENEY Age: 64 years Sex: Female : 1960 Associated Diagnoses: None Author: MD Ballesteros Ahmad F Postoperative Information Postoperative disposition: Postoperative disposition: To PACU. Optimetrix number: Optimetrix number [id number]. Anesthetic utilized: General. Health Status Allergies: Allergic [...] for 5 day(s), 10 tab(s), Refill(s) 0, [facility]/pharmacy #[id number], 174, cm, 07/06/24 9:03:00 EST, Height/Length Dosing, 81.8, kg, 07/06/24 9:03:00 EST, Weight Dosing Colace 50 mg oral capsule: 50 mg = 1 cap(s), Oral, BID, PRN for constipation, # 60 cap(s), Refills(s) 0, Pharmacy: [facility]/pharmacy #[id number], 174, cm, 07/06/24 9:03:00 EST, Height/Length Dosing, 81.8, kg, 07/06/24 9:03:00 EST, Weight Dosing Roxicodone 5 mg Tab: 5 mg = 1 tab(s), Oral, q6hr, PRN for pain, # 5 tab(s), Refills(s) 0, Pharmacy:[facility]/pharmacy #[id number], 174, cm, 07/06/24 [...] All Problems Chronic pain / SNOMED CT 718450989 / Confirmed Essential hypertension / SNOMED CT 93995852 / Confirmed Chronic depression / SNOMED CT 744953587 / Confirmed Anxiety / SNOMED CT 83691202 / Confirmed Scoliosis of lumbosacral spine / SNOMED CT 523710096 / Confirmed Hypercholesterolemia / SNOMED CT 07576516 / Confirmed Heart disease / SNOMED CT 15258878 / Confirmed Acne / SNOMED CT 41220183 / Confirmed Overweight / SNOMED CT 013919027 / Confirmed Lesion of right nipple / SNOMED CT 2812911428 / Confirmed BMI 28.0-28.9,adult / SNOMED CT 9678054001 / Confirmed Sleep apnea / SNOMED CT 901151482 / Confirmed Myocardial infarction / SNOMED CT 21827403 / (more content not included)... [facility] [...] by Dr. Cha MD. Patient presented to [facility] emergency department 07/23/2024 and wasstraight catheterized and discharged home. She then returned to [facility] emergency department last night with urinary retention and severe pelvic discomfort. She was found to have acute kidney injury. A Lyn catheter was placed for 800 mL and she was then transferred to [facility] for continued care. Patient reports a [...] for 5 day(s), 10 tab(s), Refill(s) 0, [facility]/pharmacy #[id number], 174, cm, 07/06/24 9:03:00 EST, Height/Length Dosing, 81.8, kg, 07/06/24 9:03:00 EST, Weight Dosing Colace 50 mg oral capsule: 50 mg = 1 cap(s), Oral, BID, PRN for constipation, # 60 cap(s), Refills(s) 0, Pharmacy: [facility]/pharmacy #[id number], 174, cm, 07/06/24 9:03:00 EST, Height/Length Dosing, 81.8, kg, 07/06/24 9:03:00 EST, Weight Dosing Roxicodone 5 mg Tab: 5 mg = 1 tab(s), Oral, q6hr, PRN for pain, # 5 tab(s), Refills(s) 0, Pharmacy:[facility]/pharmacy #[id number], 174, cm, 07/06/24 [...] Brandon Darnell.br\Date and Time Signed: 07/25/24 12:33 [id number] NoteHistory and Physical Basic Information Admit Date/Time:07/25/2024 00:42 History of Present Illness Patient is a 64-year-old female with past medical history as noted below comes in with above-statedchief complaint. On 07/22/2024 patient had elective urethral sling, rectocele, and [facility]cele [facility] by HAMILTON MALONE MD. Patient states that on 07/23/2024 she had acute urinary retention at home and went to the [facility] emergency department and was straight cathed. [...] psychiatric thoughts. Brief Hospital course emergency department [facility]???see outside hospital record for fulldetails Patient was given 30 mL/kg of normal saline per sepsis protocol Patient treated with IV Cipro and clindamycin [facility] emergency department labs 07/24/2024 WBC 14.6 [...] (renally dosed). Blood cultures were obtained at [facility] prior to initiation of Cipro and [...] Result Comment: Electronically Signed By: Otto Ramos DO\Date and Time Signed: 07/25/24 10:58 [id number] NoteHistory and Physical Basic Information Admit Date/Time:07/25/2024 00:42 History of Present Illness Patient is a 64-year-old female with past medical history as noted below comes in with above-statedchief complaint. On 07/22/2024 patient had elective urethral sling, rectocele, and cystocele repairdone at [facility] by HAMILTON MALONE MD. Patient states that on 07/23/2024 she had acute urinary retention at home and went to the [facility] emergency department and was straight cathed. [...] psychiatric thoughts. Brief Hospital course emergency department [facility]???see outside hospital record for fulldetails Patient was given 30 mL/kg of normal saline per sepsis protocol Patient treated with IV Cipro and clindamycin [facility] emergency department labs 07/24/2024 WBC 14.6 [...] (renally dosed). 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 6. Keep the drainage bag below the [...] 07/22/2024 09:45:15 Jose E ARAUZ Discharge Instructions(CUSTOM) [place], [place] Ambrose Dorantes M.D. TVT DISCHARGE INSTRUCTIONS [...] have given you. 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 6. Keep the drainage bag below the [...] up appointments and call with any concerns. [place], [place] Ambrose Dorantes M.D. TVT DISCHARGE INSTRUCTIONS [...] including vitamins, herbs, eye drops, creams, and kzcr-yjs-zgmfutz medicines. Any problems you or family members [...] provider tells you to take them. Taking biqd-nap-jhtrdvj medicines, vitamins, herbs, and supplements. Surgery safety [...] provider. Document Revised: 03/02/2021 Document Reviewed: 03/02/2021 [employer] Patient Education 2023 [employer]. Follow Up Care 06/24/2024 14:41:56 With:GABBY RAMIREZ, JAYY VILLASENOR Address: When: Unknown [facility] 11-25-2024 NotePatient Education Obstetrics and Gynecology [...] including vitamins, herbs, eye drops, creams, and ocuk-vba-nfibgjr medicines. ??? Any problems you or family [...] tells you to take them. ??? Taking jiqa-vgw-ijbmljb medicines, vitamins, herbs, and supplements. Surgery safety [...] disposition: To PACU. Optimetrix number: Optimetrix number [id number]. Anesthetic utilized: General. Health Status Allergies: Allergic [...] Pre-operative Note 2022 Author:Valdo Asencio Date:06/24/24 Plan [place] [employer]esthesi[employer] (ASA) physical status classification: Class III. Anesthetic Preoperative Plan: Anesthesia General, and TIVA. Future Appointments Appointment Date:07/05/2024 10:00:00 AM Scheduled Provider:HAMILTON MALONE MD Location:[facility] Appointment Type:URO Office Visit [facility] 11-14-2024 Hospital Discharge instructions Patient [...] Up Care 06/11/2024 10:28:58 With:HAMILTON MALONE Address: [address] [place] [phone] Business (1) When: Unknown Comments:in 2 weeks [facility] [id number] NotePatient Education - Text Cystoscopy ??? Voiding [...] day(s), # 9 tab(s), Refills(s) 0, Pharmacy: [facility]/pharmacy #[id number], 174, cm, 06/18/24 15:46:00 EST, Height/Length Dosing, [...] list: All Problems Acne / SNOMED CT 71930360 / Confirmed Anxiety / SNOMED CT 41627914 / Confirmed Atrophic vaginitis / SNOMED CT 81499706 / Confirmed Bladder neoplasm of uncertain malignant potential / SNOMED CT 7821401220 / Confirmed BMI 28.0-28.9,adult / SNOMED CT 6343176295 / Confirmed Chronic depression / SNOMED CT 740502453 / Confirmed Chronic pain / SNOMED CT 211027310 / Confirmed Cystocele with rectocele / SNOMED CT 818734236 / Confirmed Essential hypertension / SNOMED CT 21682363 / Confirmed Gastroesophageal reflux disease / SNOMED CT 977394141 / Confirmed Heart disease / SNOMED CT 86629095 / Confirmed Hypercholesterolemia / SNOMED CT 13148583 / Confirmed Lesion of right nipple / SNOMED CT 3345006651 / Confirmed Lumbar radiculopathy / SNOMED CT 269784413 / Confirmed Migraine / SNOMED CT 22429157 / Confirmed Myocardial infarction / SNOMED CT 20595523 / Confirmed Outside Source Comment: Comment on above: 2003 Overweight / SNOMED CT 050718053 / Confirmed Scoliosis of lumbosacral spine / SNOMED CT 814040067 / Confirmed Sleep apnea / SNOMED CT 418047184 / Confirmed Stress incontinence / SNOMED CT 263592823 / Confirmed Urethral caruncle / SNOMED CT 84265206 / Confirmed Resolved: Bipolar disorder / SNOMED CT 05816169 Canceled: Tobacco user / SNOMED CT 588471502, Active Problems (21) Acne Anxiety Atrophic vaginitis Bladder neoplasm of uncertain malignant potential BMI 28.0-28.9,adult Chronic depression Chronic pain Cystocele with rectocele Esse (more content not included)...[facility] Result Comment: Electronically Signed By: Jeff RAMIREZ, Valdo Haq\.br\Date and Time Signed: 06/24/24 08:32 [id number] Hospital Discharge instructions Patient Education 06/11/2024 10:04:23 [...] including vitamins, herbs, eye drops, creams, and dzjk-mth-ghnzmcs medicines. Any problems you or family members [...] provider tells you to take them. Taking iqcg-fif-sslkbft medicines, vitamins, herbs, and supplements. General instructions [...] provider. Document Revised: 03/02/2021 Document Reviewed: 03/02/2021 [employer] Patient Education 2023 [employer]. 06/11/2024 09:47:28 Kegel Exercises Kegel Exercises Kegel [...] provider. Document Revised: 12/06/2021 Document Reviewed: 12/06/2021 [employer] Patient Education 2023 [employer]. Follow Up Care 05/31/2024 11:14:44 With:GABBY RAMIREZ, HAMILTON, URL Address: When: Unknown [facility] 11-01-2024 NotePatient Education Obstetrics and Gynecology Kegel [...] provider. Document Revised: 12/06/2021 Document Reviewed: 12/06/2021 [employer] Patient Education ? 2023 [employer] Urology Injection Treatments for Urinary Incontinence [...] including vitamins, herbs, eye drops, creams, and fhgz-hvm-wwzfeos medicines. ??? Any problems you or family [...] Preoperative examination acute June 21, 2024 9:50am [facility] Work Phone: 1(224) 688-158610-18-2024 NotePatient Education Obstetrics and Gynecology Kegel Exercises [...] provider. Document Revised: 12/06/2021 Document Reviewed: 12/06/2021 [employer] Patient Education ? 2023 [employer]. Urethral Vaginal Sling A urethral vaginal sling [...] including vitamins, herbs, eye drops, creams, and gexe-gfv-qzprgwp medicines. ? Any problems you or family [...] including vitamins, herbs, eye drops, creams, and pykn-hym-djsocvx medicines. Any problems you or family members [...] provider tells you to take them. Taking ytwf-bbe-kftsrsk medicines, vitamins, herbs, and supplements. Surgery safety [...] provider. Document Revised: 03/02/2021 Document Reviewed: 03/02/2021 [employer] Patient Education 2023 [employer]. [facility] 10-09-2024 Evaluation note* Diagnosis Onset Date Resolution Status Admit Date UTI (urinary tract infection) acute May 19 10:09am Dysuria noneactive May 19 024 10:09am UTI (urinary tract infection) acute June 04 11:12am [facility] Work Phone: 1(528) 324-718309-11-2024 History of Present illness Narrative* MICHEAL Cifuentes [...] nursing note reviewed. Exam conducted with a weigh and charge worker present. Vitals: Estimated body mass index [...] behalf of: MICHEAL Cifuentes documented in this encounterJohn J. Pershing VA Medical [id number] NoteChief Complaint consultation for abnormal breast US [...] Dieter Bryson\Date and Time Signed: 11/19/23 14:27 [id number] Evaluation note * Encounter Date Diagnosis Assessment [...] may be able to offer some advice. [facility] Other 09-25-2023 Evaluation note* Encounter Date Diagnosis Assessment Notes Treatment Notes Treatment Clinical Notes Apr, Right lumbar radiculopathy (ICD-10 - M54.16) Presently in PT - discharged on 05/02. Requests MRI and referral. [facility] Other 08-22-2023 Evaluation note* Encounter Date Diagnosis Assessment Notes Treatment Notes Treatment Clinical Notes Mar, Right hip pain (ICD-10 - M25.551) PT paper given to pt. Handout for home stretches given as well. Tramadol to help her sleep. She understands it is a controlled substance and could be sedating. [facility] Other 05-15-2023 Evaluation note* Encounter Date Diagnosis [...] Above note written by Morris Flor MA, Buffet Waiter/Waitress. Edited and approved by Dr. Goldy Glover [...] negative findings were considered in medical decision-making. [facility] Other 04-28-2023 Evaluation note* Encounter Date Diagnosis Assessment Notes Treatment Notes Treatment Clinical Notes Nov, Lumbar pain (ICD-10 - M54.50) [facility] Other 07-20-2022 Evaluation note* Encounter Date Diagnosis Assessment Notes Treatment Notes Treatment Clinical Notes Feb, Bipolar 1 disorder, depressed (ICD-10 - F31.9) [facility] Other 05-05-2022 Evaluation note* Encounter Date Diagnosis Assessment Notes Treatment Notes Treatment Clinical Notes December, Bipolar 1 disorder, depressed (ICD-10 - F31.9) [facility] Other Evaluation + Plan note No data available for this section General Surgery [place] Evaluation + Plan note Future Appointments Appointment Date:06/18/2024 03:30:00 PM Scheduled Provider: Location:[facility] Appointment Type:Surgical PAT FT Appointment Date:06/24/2024 09:00:00 AM Scheduled Provider: Location:[facility] Appointment Type:Surgery FT [facility] Evaluation + Plan note Future Appointments Appointment Date:06/24/2024 09:00:00 AM Scheduled Provider: Location:[facility] Appointment Type:Surgery FT [facility] evaluation + Plan note Future Appointments Appointment Date:07/06/2024 10:00:00 AM Scheduled Provider: Location:[facility] Appointment Type:Surgical PAT FT Appointment Date:07/22/2024 08:00:00 AM Scheduled Provider: Location:[facility] Appointment Type:Surgery FT [facility] evaluation + Plan note Future Appointments Appointment Date:07/22/2024 08:00:00 AM Scheduled Provider: Location:[facility] Appointment Type:Surgery FT [facility] evaluation + Plan note Future Appointments Appointment Date:07/23/2024 10:30:00 AM Scheduled Provider: Location:[facility] Appointment Type:URO Nurse Visit [facility] evaluation + Plan note Future Appointments Appointment Date:08/26/2024 08:00:00 AM Scheduled Provider:HAMILTON MALONE MD Location:[facility] Appointment Type:URO Office Visit [facility] evaluation noteNo [facility] [employer] Other evaluation noteNo assessment information available [facility] Work Phone: evaluation note* Diagnosis Onset Date Resolution Status Acne acute Breast mass, right acute Wellness examination acute Abnormal ultrasound of breast acute [facility] Work Phone: evaluation note* Diagnosis Onset Date Resolution Status Abnormal ultrasound of breast acute [facility] Work Phone: evaluation note* Diagnosis Onset Date Resolution Status UTI (urinary tract infection) acute Dysuria noneactive [facility] Work Phone: evaluation note* Diagnosis Onset Date Resolution Status UTI (urinary tract infection) acute Dysuria noneactive UTI (urinary tract infection) acute [facility] Work Phone: Evaluation note* Diagnosis Exposure to STD Vaginal discharge [...] alopecia Palpitation Palpitations [facility] Diagnosis Hyperthyroidism (CMS/HCC)- 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, without mention of thyrotoxic crisis or storm Long-term current use of lithium Hair loss Unspecified alopecia Palpitation Palpitations Multinodular goiter (CMS/HCC) Nontoxic multinodular goiter [facility] Diagnosis Hyperthyroidism- 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, without mention of thyrotoxic crisis or storm Multinodular goiter Nontoxic multinodular goiter documented [facility]* Diagnosis Thyroid nodule- Primary Nontoxic uninodular goiter SHARON (obstructive sleep apnea) Obstructive sleep apnea (adult) (pediatric) documented in this [facility]* Diagnosis Thyroid nodule- Primary Nontoxic uninodular goiter documented in this encounter [facility] Narrative - Reported* Type Description Date Medical History bipolar disorder Medical History anxiety disorder Medical History high blood pressure Surgical History 2 boul ligation 2000 Surgical History stepidectomy 2009 Surgical History sinus surgery 2015 Hospitalization History See surgical hx Hospitalization History child [facility] Other History general Narrative - Reported* Type Description Date Medical History bipolar disorder Medical History anxiety disorder Medical History high blood pressure Medical History Fatigue Medical History High risk medication use Surgical History 2 boul ligation 2000 Surgical History stepidectomy 2009 Surgical History sinus surgery 2015 Surgical History LUBAL LIGATION Hospitalization History See surgical hx Hospitalization History child [email or web address] Other History general Narrative - Reported* Type [...] History See surgical hx Hospitalization History child [facility] [employer] Other Hospital Discharge instructionsAmbulatory Orders* Referral to General Surgery Time Frame: 11/12/23, Location: None [facility] Work Phone: Hospital Discharge instructions No data available for this section General [facility] Discharge instructions Additional Instructions Diet You [...] the pain is mild, you may take ykcg-ics-nqxxmef Tylenol (acetaminophen). Avoid Non-Steroidal Anti-Inflammatories (NSAIDs) such as Aspirin, Ibuprofen, Naproxen, Advil, Aleve, and Motrin, for 72 hours after surgery because they may cause prolonged bleeding. Call your doctor if you develop a rash or other drug reaction. If difficulty with breathing occurs, go directly to the ER. [facility] Work Phone: Progress note No data available for this section General Surgery [place] Reason for referral (narrative)No reason for referral information availableTrinity [facility] Work Phone: Reason for Referral Reason piriformis pain Diagnosis 1 Adolescent idiopathi c scoliosis of lumbosacral spine (M41.127) Referral Organization [facility] Ne urosurgery Referring Provider First Name Helio Referring Provider Last Name Asha Referring Provider Specialty Neurologica l Surgery Referred Organization [facility] Referred Provider Danny Solares Referred Address [address] [facility] [place],[address] Referred Provider Specialty Orthopaedic Surgery Referral Priority Routine Reason Requests Dr. Cadet Br aun - MRI pending. Went to [place] ER and had xrays on 05/05. Diagnosis 1 Right lumbar radicul opathy (M54.16) Referral Organization [facility] Novint C lauren Referring Provider First Name Seb Referring Provider Last Name Asha Referring Provider Specialty Family Medi cine Referred Organization [facility] Neurosurgery [facility] Referred Address [address] [place], [place],[address] Referred Provider Specialty Neurological Surgery Referral Priority Routine Reason No preference on off ice - Lumbar pain - recent OV and xray - thanks Diagnosis 1 Lumbar pain (M54.50) Referral Organization [facility] Novint lauren Referring Provider First Name Seb Referring [...] 8:23am E05.90 January 13, 2025 7:33a m Chief Complaint Admit Date December 15, 2024 8:23am E05.90 January 13, 2025 7:33a m Check Up/Labs January 21, 2025 9:51 am Left thyroid nodule February 22, 2025 8:05 am Reason for Visit Admit Date Abnormal TSH January 21, 2025 9:51 am Overweight with body mass index (BMI) of 28 to 28.9 in adult January 21, 2025 9:51am Rectocele January 21, 2025 9:51 am Screening mammogram for breast cancer [facility] 2024 9:51am Additional Source Comments REASON FOR VISIT (unrecogniz ed section and content) Reason Comments vaginal issues Reason Comments Thyroid Problem NEW REF/LAB Specialty Diagnoses / Procedures Referred By Contac t Referred To Contact Endocrinology Diagnoses Other specified abnormal findings of blood chemistry Procedures RI OFFICE/OUTPATIENT NEW LOW MDM 30 MINUTES Seb Barry MD [address] [place] [address] Phone: tel: fax: [place] [address] [place] [address], [address] [place] [address] Phone: tel: fax: Referral ID Status Reason Start Date Expiration Date Visits Re quested Visits Authorized [id number] Closed 11/29/2024 05/28/2025 1 1 Reason Comments Thyroid Problem Follow-up LAB/NM US Reason Comments Thyroid Nodule New patient : thyroi d nodule / hyperthyroid Specialty Diagnoses / Procedures Referred By Contac t Referred To Contact Otolaryngology Diagnoses Multinodular goiter Procedures RI OFFICE/OUTPATIENT NEW HIGH MDM 60 MINUTES Song Covarrubias MD [address], [address] [place] [address] Phone: tel: fax: Scooby Fitzgerald, [address] [place] [address] Phone: tel: fax: Referral ID Status Reason Start Date Expiration Date V isits Requested Visits Authorized [id number] Closed Specialty Services Required 01/18/2025 07/17/2025 1 1 Reason Comments Thyroid Nodule FNA Left Reason Comments Thyroid Nodule FNA results INFORMATION SOURCE (unrecogn ized section and content) DATE CREATED AUTHOR 12/25/2022 [facility] DATE CREATED AUTHOR AUTHOR'S ORGANIZ ATION 06/20/2024 [facility] DATE CREATED AUTHOR AUTHOR'S ORGANIZ ATION 07/04/2024 [facility] DATE CREATED AUTHOR AUTHOR'S ORGANIZ ATION 07/06/2024 [facility] DATE CREATED AUTHOR AUTHOR'S ORGANIZ ATION 07/27/2024 [facility] DATE CREATED AUTHOR AUTHOR'S ORGANIZ ATION 10/25/2024 [facility] DATE CREATED AUTHOR AUTHOR'S ORGANIZ ATION 03/02/2025 [facility] DATE CREATED AUTHOR AUTHOR'S ORGANIZ ATION 03/09/2025 [facility] EPIC DATE CREATED AUTHOR AUTHOR'S ORGANIZ ATION 03/11/2025 [facility] Care Teams (unrecognized sec tion and [...] End: December 31, [address] [facility] Attending Provider Active Start: December 31, [...] June 21, 2024 End: June 21, 2024 Carton Machine Operator Relationship Specialty Start Date End Date Seb Barry MD [address] [place] [id number] PCP - General Family Medicine 04/21/23 Carton Machine Operator Relationship Specialty Start Date End Date Seb Barry MD [address] [place] [address] PCP - General Family Medicine 04/21/23 Carton Machine Operator Relationship Specialty Start Date End Date Seb Barry MD [address] [place] [address] PCP - General Family Medicine 04/21/23 Team [...] Status: Active Member Role Status Dates PHYSICIAN [facility] Primary Care Provider Active Start: August 10, 2024 Pan Sanders MD Attending Provider Active Start: August 10, 2024 Team Status: Inactive Member Role Status Dates Seb Barry MD Primary Care Provider Active Start: August 18, 2024 End: August 18, 2024 Hamilton Malone MD Attending Provider Active Start: August 18, 2024 End: August 18, 2024 Carton Machine Operator Relationship Specialty Start Date End Date Seb Barry MD [address] [place] [address] PCP - General Family Medicine 04/21/23 Carton Machine Operator Relationship Specialty Start Date End Date Seb Barry MD [address] [place] [address] PCP - General Family Medicine 04/21/23 Team [...] Team Status: Active Member Role Status Dates eSb Barry MD Primary Care Provider Active Start: December 16, 2024 Song Cvoarrubias MD Attending Provider Active Sta rt: December 16, 2024 Team Status: Inactive Member Role Status Dates Seb Barry MD Primary Care Provider Active Start: January 13, 2025 End: January 13, 2025 Song Covarrubias MD Attending Provider Active Sta rt: January 13, 2025 End: January 13, 2025 Carton Machine Operator Relationship Specialty Start Date End Date Seb Barry MD [address] [place] [phone] PCP - General Family Medicine 04/21/23 Carton Machine Operator Relationship Specialty Start Date End Date Seb Barry MD [address] [place] [address] PCP - General Family Medicine 04/21/23 Carton Machine Operator Relationship Specialty Start Date End Date Seb Barry MD [address] [place] [address] PCP - General Family Medicine 04/21/23 Carton Machine Operator Relationship Specialty Start Date End Date Melanie Prater MD [address] [address] PCP - General 02/17/25 Carton Machine Operator Relationship Specialty Start Date End Date Seb Barry MD [address] [place] [address] PCP - General Family Medicine 04/21/23 Carton Machine Operator Relationship Specialty Start Date End Date Seb Barry MD [address] [facility] [place] [address] PCP - General Family Medicine 04/21/23 Team Status: Inactive Member Role Status Dates Seb Barry MD Primary Care Provider Active Start: January 21, 2025 End: January 21, 2025 Seb Barry MD Attending Provider Active St art: January 21, 2025 End: January 21, 2025 Team Status: Inactive Member Role Status Dates Scooby Fitzgerald DO Attending Provider Active S tart: February 22, 2025 End: February 22, 2025 Carton Machine Operator Relationship Specialty Start Date End Date Melanie Prater MD [address] [address] PCP - General 02/17/25 Carton Machine Operator Relationship Specialty Start Date End Date Melanie Prater MD [address] [address] PCP - General 02/17/25 Goals (unrecognized section [...] BE BASED ON THE PRIMARY CLINICAL RECORDS. [facility] [employer] provides no warranty or guarantee of the accuracy or completeness of information in this document.
[2025-04-29 12:34] LABS: Estimated GFR (African America >60 (>=60 mL/min/1.73m^2); Estimated GFR (Non-African Ame >60 (>=60 mL/min/1.73m^2); Thyroid Stimulating Hormone 1.831 uIU/mL (0.358-3.740)
[2025-04-30 05:12] LABS: Lithium (Eskalith(R)), Serum <0.1 mmol/L (0.5-1.2)
== END 2025-04-29 11:48 | disposition home or self-care (01) ==
PROVIDERS: PCP Family Medicine; Visit Provider Psychiatry & Neurology Psychiatry
DX: Z79.899 Other long term (current) drug therapy (principal)
CPT/HCPCS: 36415; 80178; 82565; 84436; 84443

== ENCOUNTER 2025-07-06 15:56 | Outpatient (REF) | payer OTHER, SELFPAY ==
--- OUTSIDE RECORDS SUMMARY | 2025-06-28 10:32 | XMS_ITS | Continuity of Care Document ---
Author Organization [facility] Address [address] [place] [address] Phone Care Team Providers Care Facilities Mechanical Design Engineer Name Role Phone Yasmin Hinds MD Attending Provider Unavailabl e NO FAMILY, PHYSICIAN Primary Care Provider Unava ilable Pan Sanders MD Attending Provider Trista Alvarado MD Primary Care Provider Trista Alvarado MD Attending Provider Care Teams Patient Care Team Team Status: Active Member Role/Relationship Status Dates Trista Alvarado MD Primary Care Provider Active Visit Care Team Team Status: Active Member Role/Relationship Status Dates Yasmin Hinds MD Attending Provider Active St art: April 29, 2025 Visit Care Team Team Status: Active Member Role/Relationship Status Dates PHYSICIAN NO FAMILY Primary Care Provider Active Start: June 08, 2025 Beckie Bravo ProviderActiveStart: June 08, 2025 Patient Care Team Team Status: Inactive Member Role/Relationship Status Dates Trista Alvarado MD Primary Care Provider Active Start: June 28, 2025 End: June 28, 2025Beckie Zamora ProviderActiveStart: June 28, 2025 End: June 28, 2025 Chief Complaint and Reason for Visit Chief Complaint Admit Date BH June 08, 2025 1 :40pm Bladder Surgery f/u June 28, 2025 2:13pm Reason for Visit Admit Date Bipolar 1 disorder, depressed June 112024 2:13pm 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, sequela June 28, 2025 2:13pm History of cystostomy June 28 2:13pm Reason for Referral Type Reason(s) Provider Provider Contact Information P kevinder Address Start Date 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, sequela History of fkbzqkhtdoD84.712S - 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, sequela,Z98.890 - [facility] Allergies, Adverse Reactions, Alerts Allergen Type Severity Reaction Last Updated Verified Status metformin Allergy Unknown Nausea June 28, 2025 2:22pm Yes Active Penicillins Allergy Unknown hives June 28, 2025 2:22pm Y es Active Social History Smoking Status Status Start Date End Date Date of Observa tion Never smoked tobacco (finding) August 18, 2024 8:07am Observation Status Observation Response Date of Response Legal Sex Female (finding) Sex Assigned At BirthFemaleDecember 1959 Family History Relationship Condition Age at Onset Recorded Date/T patricia daughter Bipolar disorder Unknown fatherBipolar disorderUnknownDeceasedUnknownmotherDeceasedUnknown Problems Active Problems Problem Diagnosis/Recorded Date Onset Date Stat Bipolar 1 disorder, depressed October 22, 2023 7:32am Unknown Active UTI (urinary tract infection) May 19, 2024 10:28a m Unknown Active Rectocele January 21, 2025 9:32am Unknown Activ e Overweight with body mass in dex (BMI) of 28 to 28.9 in adult January 24, 2025 2:22pm Unknown Active History of cystostomy June 28, 2025 3:04pm Unkno wn Active Screening mammogram for breast cancer January 21, 2025 9:48am Unknown Active Urinary incontinence February 11, 2024 1:53pm Unknown Active Vaginal dryness February 11, 2024 1:52pm Unknown Act hortencia Acne October 22, 2023 8:53am Unknown Acti ve Status post surgery August 18, 2024 10:07am Unknown Active Wellness examination October 22, 2023 8:46am Unknown Active Preoperative examination June 24, 2024 10:20am U nknown Active Abnormal TSH November 25, 2024 3:51pm Unknown Acti ve 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, sequela June 28, 2025 3:26pm Unknown Active Inactive/Resolved Problems Problem Diagnosis/Recorded Date Onset Date Stat us Abnormal ultrasound of breast November 12, 2023 9:39am U nknown Resolved Breast mass, right October 22, 2023 8:47am Unknown Resolved Medications Medication Status Dose Units Route Directions Qty Days Refills S tart Date Stop Date End Date Reason(s) Instructions Adherence [place] 0-Kmh-Mff-Fish Oil (Fi sh Oil) 1,000 (120-180) mg capsule Active 1 CAP PO Every morning August 18, 2024 12:00amComplies with drug therapySulfamethoxazole-Trimethoprim (Bactrim) 400-80 mg lemzswYgyvimbxmskg7UFHREYcbjo dsxdf147Iwayfuy 2024 12:00amJune 2024 9:26amDocusate Sodium (Colace) 100 mg capsuleDiscontinued 100MGPOTwice exxuc452OetgovhAugust 18, 2024 12:00amJune 2024 9:25amOxycodone 5 mg tgfcllhZknxojaheguq1TMDULbasc 8 hours as needed for ylmp710AhcxqsjAugust 18, 2024 January 21, 2025 9:26amStatus post surgery Other specified postprocedural statesVenlafaxine 225 mg tablet extended release 75dfEgrfjjtqqnhz5LETPNGdinu morningOctch 2023 11:00pmNov2024 2:24pmFreeTextSi tablet with food Orally Once a day; Note: Source Status: Taking; Provider: Yoel YoderOxcarbazepine 600 mg lqordmFywobeawifpr402EVPQGxzg October 21, 2023 11:00pmMarch 2023 8:34amFreeTextSig: take 1 tablet by mouth once daily 1 150mg tablet in the am; Note: Source Status: Taking; Refills: 1; Provider: Yoel Yoder ( )Omeprazole 20 mg capsule,delayed release(DR/EC)Krhgaa55BNSTYritv ch 2023 11:00pmMedication Name: Omeprazole; Note: Source Status: TakingOTC; Provider: Jenny Cadet ( )Complies with drug therapyCalcium Carbonate 500 mg calcium (1,250 mg) nxpwhvQdlcfuoinaoy9YTEPJYihet dailyOhio [facility] Surgical Hospital 2023 11:00pmJanuary 2024 8:04amFreeTextSi tablet with meals Orally Twice a day; Note: Source Status: Taking; Provider: Jenny Cadet ( )[place] Carbonate 300 mg tablet extended releaseDiscontinuedMGPOOhio Valley Surgical Hospital 2023 11:00pmMarch 2023 8:34am FreeTextSi tablets Orally at HS; Note: Source Status: Ttuqbf963-9516 mg as needed; Refills: 0; Provider: Jenny Cadet ( )Cyclobenzaprine 10 mg crufrhTewejpqvgufh74SMEXYfcfl times dailyOhio [facility] Surgical Hospital 2023 11:00pmOhio [facility] 2023 8:32amFreeTextSi tablet 3 times a day prn; Note: Source Status: Taking; Provider: Jenny Cadet ( )Iron Fum,Md-Kyvmg-Oabfo,C No.9 (Iron Folate Plus) 125 mg iron- 1 mg ycycewwWqmwrewycqgr9DMUHQLcxnlUcxoc 2023 11:00pmOhio Valley Surgical Hospital 2023 8:33amadminister between mealsTramadol 50 mg tablet Wiurvfjlphqj88YJFHYchcoLmvex 2023 11:00pmOhio Valley Surgical Hospital 2023 8:33am FreeTextSi tablet as needed Orally Once a day (QHS); Note: Source Status: Taking; Refills: 0; Provider: Jenny Weston ELithium Carbonate 300 mg tablet extended releaseDiscontinuedMGPOThree times dailyOhio Valley Surgical Hospital 2023 8:33amNovember 2023 10:17amFreeTextSi tablets Orally at HS; Note: Source Status: Fuzajh124-3781 mg as needed; Refills: 0; Provider: Jenny Cadet ( ) Oxcarbazepine 600 mg gzykhfNchbusyohmat993TBBSEqxrGycjn 2023 8:33am June 24, 2024 10:17amFreeTextSig: take 1 tablet by mouth once daily 1 150mg tablet in the am; Note: Source Status: Taking; Refills: 1; Provider: Yoel Yoder ( )Tretinoin 0.1 % sgmcxEuovop6ZDJVJYHWORVZP1 TIMES PER EGDA665Sxses 2023 11:00pmComplies with drug therapyVenlafaxine 225 mg tablet extended release 59xcIgoezh311IPKAZzlsg 2024 2:24pm FreeTextSi tablet with food Orally Once a day; Note: Source Status: Taking; Provider: Yoel YoderComplies with drug therapyEstradiol (Estrace) 0.01 % (0.1 mg/gram) dxbooCabzrw3VDZLGKWYPSgaqg a Week42.50July 2023 11:00pmComplies with drug therapyLithium Carbonate 600 mg zkdhfvnHanyvijvaewi444KZUGAvjeh at bedPending sale to [facility]2023 12:00amJan2024 8:04amOxcarbazepine (Trileptal) 150 mg htwehqUkmibqpbdghs872MHTPNdojmCehmccvk 14th, 2024 12:00am August 18, 2024 8:05amOxcarbazepine (Trileptal) 600 mg hcdbjfYhicedjsgrmn417XQ POTwice 2023 12:00amNovember 2024 2:24pmOxcarbazepine (Trileptal) 600 mg hcinetTdbtqq890JOENSroar 2024 2:23pm Complies with drug therapyMethimazole 5 mg jdmcljYsdmywybwafl8BSYWAdgfnJmyd 2024 11:00pmJune 28, 2025 2:23pmMultivitamin (Daily Multi-Vitamin) nbebiyRuqzlc8GMCZYNnemrWsrk 12th, 2025 11:00pmComplies with drug therapyLithium Carbonate 300 mg vvdpsvBymaiczbwkjp329YCRTXxcpu at bedtimeCarolinas [facility]2024 11:00pmJune 28, 2025 2:24pmLithium Carbonate 300 mg wocaooBzuxyn955THUP Daily at bedtimeJune 28, 2025 2:22pmComplies with drug therapy Sulfamethoxazole-Trimethoprim (Bactrim Ds) 800-160 mg ncdsohQilxmeftjorz7HFFFA Twice vfgin7019Myrwjkg 8th, 2024 11:00pmOctober 2023 11:24amNitrofurantoin Macrocrystal 100 mg wkosdwuRishfpkpabms580XOLWDxbpy kaitl279Hcqqxfl 2023 11:00pmNov2023 10:50ammust administer with a meal/food Immunizations Immunization Event Date Not Given Reason Dose Number Pocket Setter Lockstitch Lot Number Reason(s) Given Vaccine Information Statement (VIS) Detail Administration Location COVID-19 mRNA-1273 (Moderna) November 11, 2020 COVID-19 mRNA-1273 (Moderna)December 09OVID-19 mRNA-1273 (Moderna)August 07Tap, unspecifiedJuly 2021influenza, unspecified formulation May 28, 2021Quadrivalent InfluenzaMar 2022Tetanus, Diphtheria, Pertussis (Tdap)February 19, 2022 Relevant Diagnostic Tests and/or Laboratory Data Laboratory Results Test Collection Date/Time Result Date/Time Result Interpretation Reference Range Result Comment Performing Site [place] Level April 29, 2025 11:02am April 29, 2025 11:02am <0.1 mmol/L Abnormal (applies to non-numeric results) 0.5-1.2 A concentration of 0.5-0.8 mmol/L is advised for long-termuse; concentration s of up to 1.2 mmol/L may be necessaryduri ng acute treatment.V erified by repeat analysis Detection Limit = 0.1 <0.1 indicates None DetectedPerfo rmed at: [facility] [id number] Director: Reji Williamson PhD, Phone: [phone] Thyroid Stimulating Hormone 3rd GenSept2024 11:02amSept2024 11:02am1.831 u[iU]/mL0.358-3.740Total ThyroxineSept2024 11:02am April 29, 2025 11:02am7.50 ug/dL4.80-13.90CreatinineSept2024 11:02amSeptember 2024 11:02am0.92 mg/dL0.55-1.02Estimated GFR ()April 29, 2025 11:02amSeptember 2024 11:02am>60>=60 mL/min/1.73m 2Estimated GFR (Non- AmericanSept2024 11:02am April 29, 2025 11:02am>60>=60 mL/min/1.73m 2 Vital Signs Vital Reading Result Reference Range Collection Date/Time Height 67 [in_i] June 28, 2025 2:41kgZonpxx09.72 kgNov2024 2:21pmHeart Rate82 /zyz64-804Vyjzngdi 18th, 2025 2:21pmBP Qqaepdoq515 mm[Hg]100-140[facility]2024 2:21pmBP Wljlzpfbj64 mm[Hg]60-100[facility] 2024 2:21pmBMI (Body Mass Index)29.6 kg/v5Viqobdaw2024 2:21pm Advance Directives Advance Directive Response Recorded Date/ Time Advance Directives No May 29, 2023 11:42am Insurance Providers Guarantor Rain Alford Address [address] [place], [place] [address]Contact Info.Home Phone: Coverage Status Update:2024 Payer Group Member ID Coverage Type Subscriber Relationship to Subscriber Effective Date Expiration Date [employer] Id: [id number] J Boroski Id: [id number] [address] [facility] [address] Home Phone: Email: [email or web address] Encounters Encounter Location(s) Arrival/Admit Date Discharge/Departure Date Discharge/Departure Disposition Provider(s) Non-patient / Non-visit -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 and appropriate test was ordered to include voiding trial after. 2. Referral to [facility] 3. Pt requests I notify Dr. Hinds that she is back on her medications and expresses symptoms of depression. I will do so. Future Tests Future scheduled test information is unavailable Pending Tests Test Name Ordered Date Scheduled Date CT pelvis w con June 28, 2025 2:58pm Future Visits Future appointment information is unavailable Future Procedures Future procedure information is unavailable Future Medications Future medication information is unavailable Patient Instructions Patient instructions are unavailable Hospital Discharge Instructions Ambulatory Orders* Referral to Urology Time Frame: 06/28/25, Location: None Selected
--- OUTSIDE RECORDS SUMMARY | 2025-07-06 09:00 | XMS_ITS | Encounter Summary ---
Author Organization [facility] Address [address] [place] [address] Care Team Providers Care Food Products Sales Representative Name Role Phone Trista Alvarado MD Primary Care Provider [phone] Reason for Visit * ReasonCommentsWell Women Visit Encounter Details DateTypeDepartmentCare Team (Latest Contact Info)Eviszxfchsf16/26/2025 9:00 AM ESTProcedure Visit [facility] [address] [place] [id number] Faiza Almendarez PA [address] [place], [facility]11 Well woman exam with routine gynecological exam; Encounter for screening mammogram for malignant neoplasm of breast; Postmenopausal state Social History Tobacco UseTypesPacks/DayYears UsedDateSmoking Tobacco: NeverSmokeless Tobacco: NeverAlcohol UseStandard Drinks/WeekCommentsNot Currently0 (1 standard drink = 0.6 oz pure alcohol)CommentsNoSex and Gender InformationValueDate RecordedSex Assigned at BirthNot on fileLegal PcsIofymb80/15/2023 11:09 PM EDT Gender IdentityNot on fileSexual OrientationNot on filedocumented as of this encounter Last Filed Vital Signs Vital SignReadingTime TakenCommentsBlood Megfucas467/8207/06/2025 8:59 AM EST Pulse--Temperature--Respiratory Rate--Oxygen Saturation--Inhaled Oxygen Concentration--Xivwnl48.7 kg (182 lb 4 oz)07/06/2025 8:59 AM ESTHeight--Body Mass Index28.5407/ 8:35 AM EDTdocumented in this encounter Progress Notes * Denae Claritza, INSURANCE ACCOUNT MANAGER - 07/06/2025 9:00 AM EST Reason for Appointment: Patient ID: Rain Alford is a 64 y.o. female who presents for Well Women Visit Patient presents today for Annual Exam. MEDICATIONS Current Outpatient Medications Medication Instructions estradiol (ESTRACE) 2 g, Vaginal, 3 times weekly methIMAzole (TAPAZOLE) 5 mg, Oral, Daily multivitamin with minerals (Centrum) 9-200 mg-mcg tablet split tablet 1 tablet [place]-3 Fatty Acids (GNP Fish Oil) 840 MG capsule delayed-release 1 each, Oral, Daily RT omeprazole (PRILOSEC) 10 mg, Daily before breakfast OXcarbazepine (Trileptal) 600 MG tablet venlafaxine XR (EFFEXOR XR) 150 mg, Daily ALLERGIES Allergies Allergen Reactions Metformin Other Reaction(s): Hives Penicillins Other Reaction(s): hives PROBLEMS Active Ambulatory Problems Diagnosis Date Noted Right hip pain 04/22/2023 Lumbar radiculopathy 04/22/2023 Resolved Ambulatory Problems Diagnosis Date Noted Acne 02/05/2025 Acute kidney injury 07/24/2024 Anxiety disorder due to general medical condition 02/05/2025 Bipolar disorder (HCC) 02/05/2025 Bladder neoplasm of uncertain malignant potential 02/05/2025 BMI 28.0-28.9,adult 02/05/2025 Chronic depression 02/05/2025 Chronic pain 02/05/2025 Colon cancer screening 02/01/2014 Dysuria 05/19/2024 Essential hypertension 05/17/2022 Gastroesophageal reflux disease 02/05/2025 Heart disease 02/05/2025 Hypercholesterolemia 02/05/2025 Lesion of right nipple 02/05/2025 Migraine 02/05/2025 Myocardial infarction (HCC) 02/05/2025 SHARON (obstructive sleep apnea) 09/26/2016 Overweight 02/05/2025 Primary insomnia 09/26/2016 Scoliosis of lumbosacral spine 02/05/2025 Stress incontinence 02/05/2025 Urethral caruncle 02/05/2025 Catheter cystitis 02/05/2025 Past Medical History: Diagnosis Date Anxiety Bipolar 2 disorder (HCC) Breast mass Coronary artery disease 2018 Dysmenorrhea Hyperthyroidism 09/2024 HISTORY PAST MEDICAL HISTORY SOCIAL HISTORY Past Medical History: Diagnosis Date Acne 02/05/2025 Acute kidney injury 07/24/2024 Anxiety Anxiety disorder due to general medical condition 02/05/2025 Bipolar 2 disorder (HCC) Bipolar disorder (HCC) 02/05/2025 Bladder neoplasm of uncertain malignant potential 02/05/2025 BMI 28.0-28.9,adult 02/05/2025 Breast mass Catheter cystitis 02/05/2025 Chronic depression 02/05/2025 Chronic pain 02/05/2025 Colon cancer screening 02/01/2014 Coronary artery disease 2018 Dysmenorrhea Dysuria 05/19/2024 Essential hypertension 05/17/2022 Gastroesophageal reflux disease 02/05/2025 Heart disease 02/05/2025 Hypercholesterolemia 02/05/2025 Hyperthyroidism 09/2024 Lesion of right nipple 02/05/2025 Migraine 02/05/2025 Myocardial infarction (HCC) 02/05/2025 SHARON (obstructive sleep apnea) 09/26/2016 Overweight 02/05/2025 Primary insomnia 09/26/2016 Scoliosis of lumbosacral spine 02/05/2025 Stress incontinence 02/05/2025 Urethral caruncle 02/05/2025 Social History Tobacco Use Smoking status: Never Smokeless tobacco: Never Substance Use Topics Alcohol use: Not Currently Drug use: Defer FAMILY HISTORY Family History Problem Relation Name Age of Onset Bipolar disorder Mother Maria Elena [place] Asthma Mother Maria Elena [place] Bipolar disorder Father Pastor [place] Alcohol abuse Father Pastor Zhou Rheum arthritis Father Pastor Zhou Arthritis Father Pastor [place] Mental illness Father Pastor [place] Alcohol abuse Sister Breast cancer Mother's Sister Colon cancer Father's Brother Heart failure Maternal Grandmother Estefany Givens Heart disease Maternal Grandmother Estefany Givens Colon cancer Paternal Grandmother Cancer Maternal Grandfather Jose Givens Breast cancer Mother's Sister Marla Givens Cancer Father's Brother Marciano Zhou Migraines Father's Sister Shania Del Cid SURGICAL HISTORY Past Surgical History: Procedure Laterality Date BREAST SURGERY lump removed from nipple CARDIAC CATHETERIZATION OTHER SURGICAL HISTORY 06/14/2025 Excision OTHER SURGICAL HISTORY 03/2025 Rectocele Repair SINUS SURGERY STAPEDECTOMY TUBAL LIGATION 1999 REVIEW OF SYSTEMS Review of Systems: Review of Systems Constitutional: Negative. HENT: Negative. Eyes: Negative. Respiratory: Negative. Cardiovascular: Negative. Gastrointestinal: Negative. Genitourinary: Negative. Musculoskeletal: Negative. Skin: Negative. Neurological: Negative. All other systems reviewed and are negative. Hematological: Negative. Endocrine: Negative. Allergic/Immunologic: Negative. OBJECTIVE Objective: Physical Exam Constitutional: Appearance: Normal appearance. She is well-developed. Genitourinary: Vulva normal. Breasts: Breasts are soft. Right: Normal. Left: Normal. Cardiovascular: Rate and Rhythm: Normal rate and regular rhythm. Pulmonary: Effort: Pulmonary effort is normal. Breath sounds: Normal breath sounds. Abdominal: General: Bowel sounds are normal. There is no distension. Palpations: Abdomen is soft. Tenderness: There is no abdominal tenderness. There is no guarding or rebound. Musculoskeletal: General: No swelling. Normal range of motion. Right lower leg: No edema. Left lower leg: No edema. Neurological: Mental Status: She is alert and oriented to person, place, and time. Skin: General: Skin is warm and dry. Psychiatric: Mood and Affect: Mood normal. Behavior: Behavior normal. Vitals and nursing note reviewed. Exam conducted with a cold header operator present. Vitals: Estimated body mass index is 28.54 kg/m?? as calculated from the following: Height as of 03/08/25: 5' 7 . Weight as of this encounter: 182 lb 4 oz. BP: 128/82 No LMP recorded. Patient is postmenopausal. ASSESSMENT & PLAN ICD-10-CM 1. Well woman exam with routine gynecological exam Z01.419 THIN PREP TIS PAP AND HR HPV DNA 2. Encounter for screening mammogram for malignant neoplasm of breast Z12.31 Bilateral screening mammogram Bilateral screening mammogram 3. Postmenopausal state Z78.0 DEXA bone density Orders Placed This Encounter Procedures Bilateral screening mammogram DEXA bone density Annual Wellness Exam: Patient presents today for routine annual exam. Patient states she has no current complaints. Patients vitals were reviewed and within normal limits. Growth and development is noted to be appropriate for age. No mental health concerns was expressed. Pap Smear: Speculum was inserted into the vagina and pap was obtained without difficulty. HPV testing was performed per age guideline. Patient was advised that pap results could take anywhere from 7 to 10 days to receive and our office will reach out to the patient with those once we have them. Patient can also view results via MyChart. I reinforced importance of condom use for STI prevention. Patient declined cultures to be performed with today's visit. Breast Exam: Upon examination, clinical breast exam was noted to be normal and screening mammogram was ordered and given to patient to have obtained. Patient was counseled on breast self-awareness, including the importance of knowing what is normal for her own breasts and promptly reporting any changes such as new lumps, skin dimpling, nipple discharge, or pain. Screening mammogram was recommended annually. Discussed signs and symptoms of breast cancer and when to seek medical attention. Answered all patient questions. DEXA Counseling: DEXA scan ordered and given to the patient to have performed for osteoporosis screening per guidelines. Patient counseled on bone health, including the importance of calcium and vitamin D intake, weight-bearing exercise, fall prevention, and avoiding tobacco and excessive alcohol. Discussed purposeof DEXA in assessing fracture risk and monitoring bone density. Patient advised results will be reviewed upon completion and next steps discussed as needed. Follow Up: Patient is to return to our office in one year for annual exam unless needed otherwise. Documented by Denae Jerry LPN on behalf of: MICHEAL Cifuentes documented in this encounter Plan of Treatment DateTypeDepartmentCare Team (Latest Contact Info)Pocqshxealt20/20/2026 8:15 AM ESTOffice Visit [facility] [address] [place] [address] Scooby Fitzgerald, DO [address] [place] [address] 07/10/2026 9:00 AM ESTProcedure Visit [facility] [address] [place] [address] Faiza Almendarez PA [address] [place] [address] NameTypePriorityAssociated DiagnosesOrder ScheduleBilateral screening mammogram ImagingRoutine Encounter for screening mammogram for malignant neoplasm of breast Expected: 07/06/2025, Expires: 09/05/2026DEXA bone densityImagingRoutine Postmenopausal state Expected: 07/06/2025 (Approximate), Expires: 07/06/2026THIN PREP TIS PAP AND HR HPV DNAPathology and CytologyRoutine Well woman exam with routine gynecological exam Ordered: 07/06/2025documented as of this encounter Visit Diagnoses Diagnosis Well woman exam with routine gynecological exam Routine gynecological examination Encounter for screening mammogram for malignant neoplasm of breast Postmenopausal state Asymptomatic postmenopausal status (age-related) (natural) documented in this encounter Care Teams Team MemberRelationshipSpecialtyStart DateEnd Date Trista Alvarado MD [address] [place] [id number] PCP - GeneralFamily Medicine04/21/23documented as of this encounter
--- OUTSIDE RECORDS SUMMARY | 2025-07-06 16:00 | XMS_ITS | Clinical Summary ---
Author Organization [facility] Address [address], [address] [place] [address] Care Team Providers Care Hydraulic Technician Name Role Phone Julianne Prater MD Primary Care Provider Social History Tobacco UseTypesPacks/DayYears UsedDateSmoking Tobacco: Never Assessed CommentsUnknownSex and Gender InformationValueDate RecordedSex Assigned at Emspuv3102/14/2025 7:15 PM EDTLegal EsqKhvdji97/18/2025 2:15 PM EDTGender Identity Not on fileSexual OrientationNot on file Plan of Treatment Health MaintenanceDue DateLast DoneCommentsDepression Dtrvti6407/18/1974HIV screen 1977Hepatitis C zlrrud1307/18/1980Pap smear1983Cervical cancer screen 1992HPV (without or with Pap)1992Breast cancer argora3007/18/2002 Vhgvtz4707/18/20028047Uoxjlozbpiq63/08/2007Colorectal Cancer Sezdug4607/18/2007FIT/FOBT: Average risk2007Fecal-DNA (Cologuard): Average risk2007 Sigmoidoscopy/CT oujhcedqoarz63/08/2007Pneumococcal 50+ years Vaccine (1 of 1 - PCV)2012Shingles vaccine (1 of 2)2012Flu vaccine (#1)03/11/2025 10/12/2022, 1COVID-19 Vaccine (2024- season)09/01/, 12/09/2020, 1DTaP/Tdap/Td vaccine (2 - Td or Tdap) Respiratory Syncytial Virus (RSV) or age 60 yrs+ (1 - 1-dose 75+ series)2037Hepatitis A vaccineAged OutNo longer eligible based on patient's age to complete this topicHepatitis B vaccineAged OutNo longer eligible based on patient's age to complete this topicHib vaccineAged OutNo longer eligible based on patient's age to complete this topicMeningococcal (ACWY) vaccineAged OutNo longer eligible based on patient's age to complete this topicMeningococcal B vaccineAged OutNo longer eligible based on patient's age to complete this topicPolio vaccineAged OutNo longer eligible based on patient's age to complete this topic Insurance Care Teams Team MemberRelationshipSpecialtyStart DateEnd Date Julianne Prater MD [address] [address] PCP - General02/17/25
--- OUTSIDE RECORDS SUMMARY | 2025-07-06 16:00 | XMS_ITS | Encounter Summary ---
Author Organization [facility] Address [address] [place] [address] Care Team Providers Care Organisational Psychologist Name Role Phone Trista Alvarado MD Primary Care Provider Encounter Details DateTypeDepartmentCare Team (Latest Contact Info)Dmqrljhbliv77/26/2025amboo flowsheet [facility] [address] [place] [phone] Faiza Almendarez PA [address] [facility] [address] [place], [facility]11 Social History Tobacco UseTypesPacks/DayYears UsedDateSmoking Tobacco: NeverSmokeless Tobacco: NeverAlcohol UseStandard Drinks/WeekCommentsNot Currently0 (1 standard drink = 0.6 oz pure alcohol)CommentsNoSex and Gender InformationValueDate RecordedSex Assigned at BirthNot on fileLegal HroDszoyr81/15/2023 11:09 PM EDT Gender IdentityNot on fileSexual OrientationNot on filedocumented as of this encounter Plan of Treatment DateTypeDepartmentCare Team (Latest Contact Info)Brqnfhnragp11/20/2026 8:15 AM ESTOffice Visit [facility] [address] [place] [phone] Scooby Fitzgerald, DO [address] [place] [address] 07/10/2026 9:00 AM ESTProcedure Visit [facility] [address] [place] [place] [phone] Faiza Almendarez PA [address] [facility] [address] [place], [place] [phone] documented as of this encounter Visit Diagnoses Not on filedocumented in this encounter Care Teams Team MemberRelationshipSpecialtyStart [place] [address] [place] [address] [place] [address] PCP - GeneralFamily Medicine04/21/23documented as of this encounter
--- OUTSIDE RECORDS SUMMARY | 2025-07-06 16:00 | XMS_ITS | Clinical Summary ---
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, subsequent encounter (Primary Dx); Other specified postprocedural statesfrom Last 3 Months Social History Tobacco UseTypesPacks/DayYears UsedDateSmoking Tobacco: Never Assessed CommentsUnknownSex and Gender InformationValueDate RecordedSex Assigned at Not on fileLegal JxmShhhtf95/03/2025 12:43 PM ESTGender IdentityNot on file Sexual OrientationNot on file Plan of Treatment Health MaintenanceDue DateLast DoneCommentsAnxiety Tzdjwlgul00/08/1980Depression Ghoucrvdr21/08/1980HIV Owebtlalm87/08/1980Hepatitis C Okolarglh74/08/1980 DTaP,Tdap,Td Vaccine (1 - Tdap)1981Cervical Cancer Foonbznrb27/08/1983 Mammogram Gbwrqhcng69/08/2002CT Pezwtranocku99/08/2007Cologuard (FIT-DNA) 07/18/20076342Xaxulovhtyf98/08/2007Colorectal Cancer Laqqrxwif00/08/2007Diabetes Raxfqzbls07/08/2007Fecal Occult Blood2007Lipid Pikyhmnwf16/08/2007 Zyegrphvixmnf77/08/2007Pneumococcal Vaccine: 50+ (1 of 1 - PCV)2012 Shingrix Vaccine (1 of 2)2012Covid-19 Vaccine (1 - 2024-26 season) 2025Influenza Vaccine (#1)2025RSV Vaccine (1 - 1-dose 75+ series) 2037 Insurance Care Teams Team MemberRelationshipSpecialtyStart DateEnd Date Trista Alvarado MD [address] [place] [phone] ReferringFaAugusta [facility]07/01/25
--- OUTSIDE RECORDS SUMMARY | 2025-07-06 16:00 | XMS_ITS | Clinical Summary ---
Author Organization [facility] Address [address] [place] [address] Care Team Providers Care Jewel Bearing Broacher Name Role Phone Trista Alvarado MD Primary Care Provider [phone] Allergies Active AllergyReactionsCriticalityNoted CrpdVmydcnczMuolrunwe72/21/2024 Other Reaction(s): Hives Ztpeyuwxzwu51/21/2024 Other Reaction(s): hives Medications MedicationSigDispense QuantityRefillsLast FilledStart DateEnd DateStatus omeprazole (PriLOSEC) [address] capsule Take 10 mg by mouth in the morning. Take before meals. Do not crush or chew. Active OXcarbazepine (Trileptal) 600 MG tablet 4Active methIMAzole (Tapazole) 5 MG tablet Indications:HyperthyroidismTake 1 tablet (5 mg) by mouth Daily 90 tablet 5Active estradiol (Estrace) 0.1 MG/GM vaginal cream Indications:Hormone imbalanceInsert 2 g into the vagina 3 (three) times a week 42.5 g 5Active venlafaxine XR (Effexor XR) 150 MG 24 hr capsule Take 150 mg by mouth Daily5Active multivitamin with minerals (Centrum) 9-200 mg-mcg tablet split tablet 1 vjrbsy625Active Channing-3 Fatty Acids (GNP Fish Oil) 840 MG capsule delayed-release Take 1 each by mouth in the morning.Active venlafaxine XR (Effexor XR) 225 MG 24 hr tablet 1 zdkjrh32Discontinued lithium ER (Lithobid) 300 MG 12 hr tablet Take 900 mg by mouth DailyDiscontinued cholecalciferol (Vitamin D-3) 50 MCG (1999) tablet Take 50 mcg by mouth in the morning.07/06/2025Discontinued Active Problems ProblemNoted DateDiagnosed DateRight hip pain04/22/2023Lumbar radiculopathy 04/22/2023 Resolved Problems ProblemNoted DateDiagnosed DateResolved EjfdOeaa40nxiety disorder due to general medical xmcviwvuo28ipolar disorder ladder neoplasm of uncertain malignant oxbasueoa40/28/2025 02/05/2025MI 28.0-28.9,adulthronic /28/2025 02/05/2025hronic painGastroesophageal reflux disease Heart bkgiyfz37Hypercholesterolemia Lesion of right jajasq67Migraine02/05/2025 02/05/2025Myocardial ewtffyavge68 Overview (02/05/2025): Outside Source Comment: Comment on above: 2004 Vgzmjgtubb12Scoliosis of lumbosacral spine Stress wwtsrsfitiqr56Urethral ltrmidzo94 Catheter orkwseup87ute kidney svfxuc22 Boxbkcn74Essential zihhpfilleyv48OSA (obstructive sleep apnea)Primary hjytrvqg11/16/2017 02/05/2025olon cancer lkgneproi78 Encounters DateTypeDepartmentCare UtqlRbwnowepqtp72/26/2025 9:00 AM ESTProcedure Visit [facility] [address] [place] [address] Faiza Almendarez PA Well woman exam with routine gynecological exam; Encounter for screening mammogram for malignant neoplasm of breast; Postmenopausal state07/06/2025amboo flowsheet [facility] [address] [place] [address] Faiza Almendarez PA 06/01/20252209Iwognq63/18/2025Refill [facility] [address] [facility] [address] Jerri Oliveira MA Hormone imbalancefrom Last 3 Months Immunizations ImmunizationAdministration DatesNext DueInfluenza, injectable, quadrivalent, preservative free10/12/2022,05/28/2021Tdap02/19/2022 Family History Medical HistoryRelationNameCommentsAlcohol abuseFatherElmer TrippArthritisFather Pastor TrippBipolar disorderFatherElmer TrippMental illnessFatherElmer TrippRheum arthritisFatherElmer TrippColon cancerFather's Brother 1CancerFather's Brother 2 Marciano TrippMigrainesFather's SisterNorma MelgesCancerMaternal GrandfatherHerbert HansonHeart diseaseMaternal GrandmotherElla HansonHeart failureMaternal GrandmotherElla HansonAsthmaMotherLois TrippBipolar disorderMotherLois Wright Breast cancerMother's Sister 1Breast cancerMother's Sister 2Merva HansonColon cancerPaternal GrandmotherAlcohol abuseSisterRelationNameStatusCommentsFather Pastor TrippAliveFather's Brother 1Father's Brother 2Carl TrippAliveFather's SisterNorma MelgesAliveMaternal GrandfatherHerbert HansonAliveMaternal GrandmotherElla HansonAliveMotherLois TrippAliveMother's Sister 1Mother's Sister 2Merva HansonAlivePaternal GrandmotherSister Social History Tobacco UseTypesPacks/DayYears UsedDateSmoking Tobacco: NeverSmokeless Tobacco: Never Tobacco Cessation:Counseling Given: Not Answered Alcohol UseStandard Drinks/WeekCommentsNot Currently0 (1 standard drink = 0.6 oz pure alcohol)CommentsNoSex and Gender InformationValueDate RecordedSex Assigned at BirthNot on fileLegal KgqAwwwpp09/15/2023 11:09 PM EDTGender IdentityNot on fileSexual OrientationNot on file Last Filed Vital Signs Vital SignReadingTime TakenCommentsBlood Goefgtjd448/8211 8:59 AM EST Dolim99273/10/2025 10:05 AM EDTTemperature--Respiratory Zloq845401/18/2025 10:05 AM EDTOxygen Qbdgucsfnf95%01/18/2025 10:05 AM EDTInhaled Oxygen Concentration-- Qgssym92.7 kg (182 lb 4 oz)07/06/2025 8:59 AM NSPBzipyj979.2 cm (5' 7 ) 03/08/2025 8:35 AM EDTBody Mass Index28.54003/08/2025 8:35 AM EDT Plan of Treatment DateTypeDepartmentCare Team (Latest Contact Info)Szobqonngoa57/20/2026 8:15 AM ESTOffice Visit [facility] [address] [place] [address] Scooby Fitzgerald W, DO [address] [place] [address] 07/10/2026 9:00 AM ESTProcedure Visit [facility] [address] [place] [address] Faiza Almendarez PA [address] [place] [address] Health MaintenanceDue DateLast DoneCommentsCT Pzxhapaavtyu1962Colonoscopy 2Colorectal Cancer Wplllanjw1962FIT-DNA1962FIT1962 FOBT1962 5175Lnwsofwbsgkfr07/08/8617Pzarekrbc53/23/202101/, 07/28/2018, 05/28/2017, Additional history existsCOVID-19 Vaccine ( season) , 12/09/2020, 11/11/2020Influenza Vaccine (#1)2025 10/12/2022, 05/28/2021ervical Cancer Kxstedwfo85/11/2029HPV/Qrzrdk8804/21/2029Pap Smearneumococcal Vaccine: Pediatrics (0 to 5 Years) and At- Risk Patients (6 to 64 Years)Aged OutNo longer eligible based on patient's age to complete this topic Procedures Procedure NamePriorityDate/TimeAssociated DiagnosisCommentsPAP SMEARRoutine 04/21/2024 12:00 AM EDTfrom Last 3 Months or Most Recently Relevant to Health Maintenance Results * Pap Smear (04/21/2024 12:00 AM EDT)Specimen (Source)Anatomical Location / LateralityCollection Method / VolumeCollection TimeReceived TimeSwabCervical swab / Unknown Narrative Authorizing ProviderResult TypeResult StatusAmy Tanesha [facility] ORDERABLES Final ResultPerforming OrganizationAddressCity/State/ZIP CodePhone Number EXTERNAL LAB from Last 3 Months or Most Recently [place] [address] Care Teams Team MemberRelationshipSpecialtyStart DateEnd Date Trista Alvarado MD [address] [place] [address] PCP - GeneralFamily Medicine04/21/23
--- OUTSIDE RECORDS SUMMARY | 2025-07-06 16:00 | XMS_ITS | Encounter Summary ---
Author Organization [facility] Address [facility] [place] [address] Care Team Providers Care Take Up Operator Name Role Phone Trista Alvarado MD Unavailable [phone] Source Comments In the event this information is protected by the Federal Confidentiality of Alcohol and Drug AbusePatient Records regulations: The Federal rules restrict any use of the information to criminally investigate or prosecute any alcohol or drug abuse patient.[facility] Reason for Referral * Consult, Test, Treat (Routine) - Pending ReviewSpecialtyDiagnoses / Procedures Referred By ContactReferred To ContactUrology Diagnoses 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, subsequent encounter Other specified postprocedural states Procedures OFFICE/OUTPATIENT [facility] 60 MINUTES Trista Alvarado MD [address] [place] [address] Phone: tel: fax: Referral IDStatusReasonStart DateExpiration DateVisits RequestedVisits [id number] Review PCP Requested Referral Encounter Details DateTypeDepartmentCare Team (Latest Contact Info)Asxmfbawfeh78/24/2025Transcribe Orders Referring Physician [place] [address] Trista Alvarado MD [address] [place] [address] 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, subsequent encounter (Primary Dx); Other specified postprocedural states Social History Tobacco UseTypesPacks/DayYears UsedDateSmoking Tobacco: Never Assessed CommentsUnknownSex and Gender InformationValueDate RecordedSex Assigned at Not on fileLegal XvgZxmizi61/03/2025 12:43 PM ESTGender IdentityNot on file Sexual OrientationNot on filedocumented as of this encounter Plan of Treatment NameTypePriorityAssociated DiagnosesOrder ScheduleCONSULT TO UROLOGYReferral Routine 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
--- OUTSIDE RECORDS SUMMARY | 2025-07-06 16:04 | XMS_ITS | CCD ---
Author Organization [facility] CliniSyaz Care Team Providers Care Worship Pastor Name Role Phone Paresh Calixto Unavailable Seb [...] Provider MD Seb Barry Primary Care Provider Helio Barry Unavailable NO FAMILY, PHYSICIAN Primary Care Provider Unava MD Pan Gutierrez Attending Provider [phone] SEB BARRY Primary Care Physician NO FAMILY, PHYSICIAN Primary Care Provider Unava MD Pan Gutierrez Attending Provider [phone] MD Seb Barry Primary Care Provider [phone] MD Dieter Loco Attending Provider [phone] NO FAMILY, PHYSICIAN Primary Care Provider Unava MD Pan Gutierrez Attending Provider [phone] NO FAMILY, PHYSICIAN Primary Care Provider Unava ilable MD Pan Sanders Attending Provider [phone] KAUSHAL Hill Attending Provider NON STAFF Primary Care Provider UnavailDieter Olivarez Attending Unavailable NKANSAH-AMANKRA, HAMILTON Attending Unavail able Beryl Henderson Attending Unavailable TOMMY FLORES Attending Unavailable NKANSAH-AMANKRA, HAMILTON Admitting Unavail able NKANSAH-AMANKRA, HAMILTON Attending Unavail able NKANSAH-AMANKRA, HAMILTON Referring Unavail able Dieter LOCO Attending Unavailable Dieter LOCO Attending Unavailable Dieter LOCO Attending Unavailable Adamaris Hill APRN Attending Provider NON STAFF Primary Care Provider UnavailSeb Martínez MD Attending Provider NO FAMILY, PHYSICIAN Primary Care Provider Unava ilable Pan Sanders MD Attending Provider [phone] NKANSAH-AMANKRA, HAMILTON Admitting Unavail able NKANSAH-AMANKRA, HAMILTON Attending Unavail able NKANSAH-AMANKRA, HAMILTON Referring Unavail able NKANSAH-AMANKRA, HAMILTON Referring Unavail able NKANSAH-AMANKRA, HAMILTON Admitting Unavail able NKANSAH-AMANKRA, HAMILTON Attending Unavail able NKANSAH-AMANKRA, HAMILTON Attending Unavail able Seb Barry MD [facility] Care Provider [phone] NKANSAH-AMANKRA, HAMILTON Attending Unavail able NKANSAH-AMANKRA, HAMILTON Attending Unavail able NKANSAH-AMANKRA, HAMILTON Referring Unavail able NKANSAH-AMANKRA, HAMILTON Admitting Unavail able CROW, DO Ronobir R Admitting Unavailabl e CROW DO Ronobir R Attending Unavailabl e CROW DO Ronobir R Attending Unavailabl Brandon Walls Consulting Unavailable DO CROW Ronobir R Admitting Unavailabl Brandon Walls Consulting Unavailable Brandon Kulkarni Consulting Unavailable NO FAMILY, PHYSICIAN Primary Care Provider Unava ilable Pan Sanders MD Attending Provider [phone] Seb Barry MD Primary Care Provider [phone] Hamilton Malone MD Attending Provider NKANSJEFERSONAMENZO, HAMILTON Attending Unavail able NKROOSEVELTAMENZO, HAMILTNO Attending Unavail able Eri WALDROP Attending Unavailable Aditya MARIA Admitting Unavailable Brandon Kulkarni Consulting Unavailable Brandon Kulkarni Consulting Unavailable Brandon Kulkarni Consulting Unavailable GABBY, HAMILTON Attending Unavail able UMBERTOAMENZO, HAMILTON Attending Unavail able NKSANDEEP-AMENZO, HAMILTON Referring Unavail able GABBY, HAMILTON Attending Unavail able GABBY, HAMILTON Attending Unavail able Seb Barry MD Primary Care Provider NO FAMILY, PHYSICIAN Primary Care Provider Unava ilable Pan Sanders MD Attending Provider [phone] Seb Barry MD Primary Care Provider Song Covarrubias MD Attending Provider Melanie Prater MD Primary Care Provider [phone] Seb Barry MD Primary Care Provider Song Covarrubias MD Attending Provider Seb Barry MD Attending Provider [phone] Scooby Fitzgerald DO Attending Provider [phone] SONG COVARRUBIAS Attending Unavailable SEB BARRY Referring Unavailable SONG COVARRUBIAS Attending Unavailable FAIZA WELLER Attending Unavailable SCOOBY FITZGERALD Attending Unavailable SONG COVARRUBIAS Referring Unavailable SCOOBY FITZGERALD Attending Unavailable SCOOBY FITZGERALD Attending Unavailable MINA, MELANIE Referring Unavailable MINA, MELANIE Primary Care Unavailable MINA, MELANIE Referring Unavailable MINA, MELANIE Primary Care Unavailable MINA, MELANIE Referring Unavailable MINA, MELANIE Primary Care Unavailable MINA, MELANIE Referring Unavailable MELANIE PRATER Primary Care Unavailable Scooby Fitzgerald Admitting Unavailable Scooby Fitzgerald Attending Unavailable Seb Barry Primary Care Unavailable Song Covarrubias Admitting Unavailable Song Covarrubias Attending Unavailable NO FAMILY, PHYSICIAN Primary Care Unavailable Pan Sanders Admitting Unavailab Pan [place] Attending Unavailab le Seb Barry Primary Care Unavailable Nkansah-Amankra, Hamilton Admitting Unavail able Nkansah-Amankra, Hamilton Attending Unavail able Allergies Allergy ClassificationReported Allergen(s)Allergy TypeDate of OnsetReaction(s) Facility (15 sources)PenicillinsDrug pddppuh1962oqpzhVauspbtguK[facility] (20 sources)metFORMIN; Translations: [metformin]Drug Ojvopru69-41-1027Jroo (disorder)[facility] (8 sources)Substance with penicillin structure and antibacterial mechanism of action (substance)Drug allergyhiFreeman [facility] [place] Other (20 sources)Penicillin; Translations: [penicillin]Drug AllergyWeal (disorder) [facility] [place] (20 sources)PenicillinsDrug Hauxyhr39-55-5424[facility] (1 source)metFORMINDrug Fregvfg93-04-4161QlpvixmoyMad[facility] (1 source)PenicillinsDrug allergy (disorder)73-52-0479VbvmjsbcqMadison Health Repository Medications Current Medications MedicationDrug Class(es)DatesSig (Normalized)Sig (Original)aspirin 81 mg chewable tablet (7 sources)Platelet Aggregation Inhibitor, Nonsteroidal Anti-inflammatory Drug take 1 tablet by mouth every twenty-four hoursAspirin 81 MG 1 tablet Orally Once a day PRN ActiveCalcium Carbonate (15 sources)Start: 10-03-0495fivw 1 tablet by mouth twice dailycalcium carbonate = 1 tab(s), Oral, BID, Refills(s) 0 Start Date: 11/17/23 Status: OrderedStart: 10-22-2023 End: 08-86-5424nwlb 1 tablet by mouth twice daily at mealtimeCalcium Carbonate 500 mg calcium (1,250 mg) tablet Discontinued 1 TAB PO Twice daily October 22, 2023 12:00am August 18, 2024 9:04am FreeTextSi tablet with meals Orally Twice a day; Note: Source Status: Taking; Provider: Asha Cadet ( )take 1 tablet by mouth every twelve hoursCalcium 500 MG 1 tablet with meals Orally Twice a day Activecholecalciferol 0.05 mg oral tablet (20 sources)Vitamin Dtake 1 tablet by mouth in the morningcholecalciferol (Vitamin D-3) 50 MCG (1999 UT) tablet Take 50 mcg by mouth in the morning. Activetake 1 capsule by mouth once dailyVitamin D3 50 MCG (1999 UT) take 1 capsule by mouth once daily for 90 Not-Takingciprofloxacin 500 mg oral tablet (1 source)Quinolone AntimicrobialStart: 62-79-2225lgaz 1 tablet by mouth once dailyCipro 500 mg Tab See Instructions, 1 tab po day prior to cysto, 1 tab po following cysto, # 2 tab(s), Refills(s) 0, Pharmacy: [facility]/pharmacy #[id number], 170, cm, 05/25/24 10:38:00 EDT, Height/Length Dosing,84, kg, 05/25/24 10:38:00 EDT, Weight Dosing Start Date: 05/28/24 Status: Orderedestradiol 0.1 mg/ml vaginal cream (12 sources)EstrogenStart: 04-21-2024 End: 38-48-6326bodbtrwqh (Estrace) 0.1 MG/GM vaginal cream Indications: Hormone imbalance Insert 2 g into the vagina Daily Apply 1/2 APPLICATOR daily for 2 weeks 45 g 3 04/21/2024 05/21/2024 ActiveStart: 64-69-7763Eghblo (2 sources)Folate Activelithium carbonate 300 mg oral tablet (20 sources)Start: 91-89-3123ydto 3 tablets by mouth once daily at bedtimeStart: 06-24-2024 End: 88-50-6127uqwp 1 capsule by mouth once daily at bedtimeLithium Carbonate 600 mg capsule Discontinued 600 MG PO Daily at bedtime June 24, 2024 1:00amJan2024 9:04amStart: 15-75-0476holo 1 tablet by mouth at bedtime lithium 300 mg oral tablet 300 mg = 1 tab(s), Oral, Bedtime, Refills(s) 0 Start Date: 11/17/23 Status: Ordered Repeat number: 1Start: 54-52-1623xoge 3 tablets by mouth at bedtimelithium 300 mg oral tablet 900 mg = 3 tab(s), Oral, Bedtime, Refills(s) 0 Start Date: 11/17/23 Status: OrderedStart: 69-66-6569pxvjsnu ER (Lithobid) 300 MG 12 hr tablet Take 900 mg by mouth Daily 10/22/2023 Active Start: 10-22-2023 End: 50-40-7045xtso 3 tablets by mouth three times daily at bedtimeLithium Carbonate 300 mg tablet extended release Discontinued MG PO Three times daily October 22, 2023 9:33am June 24, 2024 11:17am FreeTextSi tablets Orally at HS; Note: Source Status: Yixlra460-7539 mg as needed; Refills: 0; Provider: Asha Cadet ( )take 3 tablets by mouth at bedtimeLithium Carbonate ER 300 MG 3 tablets Orally at HS for 90 days 900-1200 mg as needed Activetake 4 tablets by mouth every twenty-four hoursLithium Carbonate ER 300 MG 4 tablets Orally Once a day for 90 days 900-1200 mg as needed ActiveLORazepam 0.5 mg oral tablet (7 sources)BenzodiazepineStart: 92-19-7556elet 1 tablet by mouth every twenty- four hoursAtivan 0.5 MG 1 tablet at bedtime as needed Orally Once a day for 10 days f41.1 December, Activetake 1 tablet by mouth every twenty-four hours Ativan 0.5 MG 1 tablet at bedtime as needed Orally Once a day for 4 days f41.1 ActivemethIMAzole 5 mg oral tablet (11 sources)Thyroid Hormone Synthesis InhibitorStart: 01-18-2025 End: 08-51-7721zwbk 1 tablet by mouth once dailymethIMAzole (Tapazole) 5 MG tablet Indications: Hyperthyroidism Take 1 tablet (5 mg) by mouth Daily90 tablet 1 01/18/2025 07/17/2025 ActiveMultivitamin (Daily Multi-Vitamin) tablet (1 source)Start: 37-48-3676hrlo 1 tablet by mouth once dailyOmega 3-Azz-Dbp-Fish Oil (Fish Oil) 1,000 (120-180) mg capsule (3 sources)Start: 03-58-7026gaim 1 capsule by mouth once daily in the morning Start: 82-26-7548otdn 1 capsule by mouth once daily in the morningOmega 1-Xbo-Swh-Fish Oil (Fish Oil) 1,000 (120-180) mg capsule Active 1 CAP PO Every morning August 18, 2024 1:00amStart: 22-44-9092itkj 1 capsule by mouth once daily in the morningOmega 5-Mqj-Hdb-Fish Oil (Fish Oil) 1,000 (120-180) mg capsule Active 1 CAP PO Every morning August 18, 2024 12:00amomeprazole 20 mg delayed release oral capsule (20 sources)Proton Pump InhibitorStart: 94-89-8194zmwx 1 capsule by mouth once daily in the morningtake 1 capsule by mouth before mealtimeomeprazole (PriLOSEC) [address] capsule Take 10 mg by mouth in the morning. Take before meals. Do not crush or chew. ActiveOmeprazole OTC Activephenazopyridine hydrochloride 100 mg oral tablet (1 source)Start: 06-24-2024 End: 45-62-7354gomg 1 tablet by mouth three times dailyPyridium 100 mg Tab 100 mg = 1 tab(s), Oral, TID, X 3 day(s), # 9 tab(s), Refills(s) 0, [id number], 174, cm, 06/18/24 15:46:00 EST, Height/Length Dosing, 81.8, kg, 06/18/24 15:46:00EST, Weight Dosing Start Date: 06/24/24 Stop Date: 06/27/24 Status: Orderedpropranolol hydrochloride 10 mg oral tablet (7 sources)beta-Adrenergic Blockertake 1 tablet by mouth every twelve hours Propranolol HCl 10 MG 1 tablet Orally Twice a day for 90 days ActiveRA Vitamin D-3 50 MCG (1999) (13 sources)take 1 capsule by mouth once dailyRA Vitamin D-3 50 MCG (1999) take 1 capsule by mouth once daily for 90 Activetretinoin 1 mg/ml topical cream (20 sources)RetinoidStart: 67-71-8495onufvapeg Top 0.1% Crm 1 susan, Topical, Once a day (at bedtime), Refill(s) 0 Start Date: 11/17/23 Status: Ordered Repeat number: 1Start: 10-22-2023 End: hr venlafaxine 225 mg extended release oral tablet (20 sources)Serotonin and Norepinephrine Reuptake InhibitorStart: 11-17-2023 venlafaxine as directed, Refills(s) 0 Start Date: 11/17/23 Status: OrderedStart: 35-16-1237jnvhtifkptv XR (Effexor XR) 225 MG 24 hr tablet 1 tablet 10/22/2023 ActiveStart: 22-77-9222nhdh 1 tablet by mouth once daily in the morningtake 1 tablet by mouth every twenty-four hoursVenlafaxine HCl ER 225 MG 1 tablet with food Orally Once a day for 90 days ActiveVitamin B12 1000 MCG (2 sources)take 1 tablet by mouth once dailyVitamin B12 1000 MCG 1 tablet Orally Once a day Active Completed/Discontinued Medications MedicationDrug Class(es)DatesSig (Normalized)Sig (Original)ciprofloxacin 3 mg/ml / dexamethasone 1 mg/ml otic suspension (13 sources)Corticosteroid, Quinolone AntimicrobialStart: 83-24-3734Wkhaccfw 0.3-0.1 % 4 drops into affected ear Otic Twice a day for 7 day(s) December, Not-Takingcyclobenzaprine hydrochloride 10 mg oral tablet (14 sources)Muscle RelaxantStart: 10-22-2023 End: 02-39-2327ukrr 1 tablet by mouth three times daily as neededCyclobenzaprine 10 mg tablet Discontinued 10 MG PO Three times daily October 22, 2023 12:00am 2023 9:32am FreeTextSi tablet 3 times a day prn; Note: Source Status: Taking; Provider: Asha Cadet ( )Cyclobenzaprine HCl 10 MG 1 tablet 3 times a day prn Activedocusate sodium 100 mg oral capsule (10 sources)Start: 08-09-2024 End: 30-16-3991avnl 1 capsule by mouth twice dailyDocusate Sodium (Colace) 100 mg capsule Discontinued 100 MG PO Twice daily August 18, 2024 1:00am January 21, 2025 10:25amStart: 13-82-0391egqz 1 capsule by mouth twice dailyColace 100 mg Cap 100 mg = 1 cap(s), Oral, BID, Refills(s) 0 Start Date: 07/26/24 Status: OrderedStart: 23-99-4471sacf 1 capsule by mouth twice daily as needed for constipationColace 50 mg oral capsule 50 mg = 1 cap(s), Oral, BID, PRN for constipation, # 60 cap(s), Refills(s) 0, Pharmacy: [facility]/pharmacy #[id number], 174, cm, 07/06/24 9:03:00 EST, Height/Length Dosing, 81.8, kg, 07/06/24 9:03:00 EST, Weight Dosing Start Date: 07/22/24 Status: OrderedIron Fum,Jw-Odvwr-Pxktm,C No.9 (Iron Folate Plus) 125 mg iron- 1 mg capsule (10 sources)Start: 10-22-2023 End: 73-91-6687jzbf 1 capsule by mouth once daily at mealtimeIron Fum,Qu-Uenax-Nfxgb,C No.9 (Iron Folate Plus) 125 mg iron- 1 mg capsule Discontinued 1 CAP PO Daily October 21, 2023 11:00pm October 22, 2023 8:33am administer between mealsStart: 10-22-2023 End: 48-75-9062yopk 1 capsule by mouth once daily at mealtimeIron Fum,Ne-Jpkou-Jkhoa,C No.9 (Iron Folate Plus) 125 mg iron- 1 mg capsule Discontinued 1 CAP PO Daily October 22, 2023 12:00am October 22, 2023 9:33am administer between mealsmelatonin 5 mg oral tablet (20 sources)Start: 65-91-2013qagd 1 tablet by mouth once daily in the evening Melatonin 5 MG 1 tablet in the evening Orally Once a day for 30 day(s) Sep, Not-TakingmetFORMIN hydrochloride 500 mg oral tablet (13 sources)BiguanideStart: 04-21-2024 End: 57-93-5719yyvg 1 tablet by mouth at mealtimemetFORMIN (Glucophage) 500 MG tablet Indications: Hormone imbalance Take 1 tablet (500 mg) by mouthin the morning. Take with meals. 30 tablet 11 04/21/2024 02/05/2025 Discontinued nitrofurantoin, macrocrystals 100 mg oral capsule (5 sources)Nitrofuran AntibacterialStart: 06-04-2024 End: 06-92-7344bqdl 1 capsule by mouth twice daily at mealtimeNitrofurantoin Macrocrystal 100 mg capsule Discontinued 100 MG PO Twice daily June 042:00am June 21, 2024 11:50am must administer with a meal/food OXcarbazepine 150 mg oral tablet (20 sources)Anti-epileptic AgentStart: 06-24-2024 End: 31-68-3000avlz 1 tablet by mouth once dailyOxcarbazepine (Trileptal) 150 mg tablet Discontinued 150 MG PO Daily June 24, 2024 1:00am August 18, 2024 9:05amStart: 87-43-9788fhzn 2 tablets by mouth twice dailyoxcarbazepine 300 mg Tab 300 mg = 1 tab(s), Oral, BID, Take one tablet in morning and Two tablets at night, Refills(s) 0 Start Date: 11/17/23 Status: Ordered Repeat number: 1 Start: 66-25-2933etlp 1 tablet by mouth once dailyoxcarbazepine 300 mg Tab 300 mg = 1 tab(s), Oral, Daily, Refills(s) 0 Start Date: 11/17/23 Status: Ordered Start: 10-36-9920IOgitpejidxkd (Trileptal) 600 MG tablet 10/22/2023 ActiveStart: 34-23-9430rfzr 1 tablet by mouth once daily, then take 1 tablet by mouth in the morningOxcarbazepine Active 300 MG PO Once October 22, 2023 9:33am FreeTextSig: take 1 tablet by mouth once daily 1 150mg tablet in the am; Note: Source Status: Taking; Refills: 1; Provider: Yoel Yoder ( )Start: 10-22-2023 End: 39-77-0612ztaa 1 tablet by mouth once daily, then take 1 tablet by mouth in the morningOxcarbazepine 600 mg tablet Discontinued 300 MG PO Once October 22, 2023 9:33am June 241:17am FreeTextSig: take 1 tablet by mouth once daily 1 150mg tablet in the am; Note: Source Status: Taking; Refills: 1; Provider: Yoel Yoder ( )take 1 tablet by mouth once daily, then take 1 tablet by mouth in the morningOXcarbazepine 600 MG take 1 tablet by mouth once daily 1 150mg tablet in the am for 90 days ActiveoxyCODONE hydrochloride 5 mg oral capsule (5 sources)Opioid AgonistStart: 08-18-2024 End: 23-48-0204jcet 1 capsule by mouth every eight hours as needed for pain Oxycodone 5 mg capsule Discontinued 5 MG PO Every 8 hours as needed for pain 5 August 18, 2024 January 21, 2025 10:26amStart: 85-34-6795qdof 1 tablet by mouth every six hours as needed for painRoxicodone 5 mg Tab 5 mg = 1 tab(s), Oral, q6hr, PRN for pain, # 5 tab(s), Refills(s) 0, Pharmacy: [facility]/pharmacy #[id number], 174, cm, 07/06/24 9:03:00 EST, Height/Length Dosing, 81.8, kg, 07/06/24 9:03:00 EST, Weight Dosing Start Date: 07/22/24 Status: Orderedsulfamethoxazole 400 mg / trimethoprim 80 mg oral tablet (14 sources)Dihydrofolate Reductase Inhibitor Antibacterial, Sulfonamide AntimicrobialStart: 08-18-2024 End: 54-86-5148jwxm 1 tablet by mouth twice dailySulfamethoxazole-Trimethoprim (Bactrim) 400-80 mg tablet Discontinued 1 TAB PO Twice daily August 18, 2024 1:00am January 21, 2025 10:26amStart: 07-22-2024 End: 63-15-8214Qrhdfai D.S. 800 mg-160 mg Tab 1 tab(s), Oral, BID for 5 day(s), 10 tab(s), Refill(s) 0, [facility]/pharmacy #[id number], 174, cm, 07/06/24 9:03:00 EST, Height/Length Dosing, 81.8, kg, 07/06/24 9:03:00 EST, Weight Dosing Start Date: 07/22/24 Stop Date: 07/27/24 Status: OrderedStart: 05-19-2024 End: 68-90-1359qhcp 1 tablet by mouth twice dailySulfamethoxazole-Trimethoprim (Bactrim Ds) 800-160 mg tablet Discontinued 1 TAB PO Twice daily 14 7Oct2023 12:00am June 04, 2024 12:24pmStart: 88-75-2735rrgg 1 tablet by mouth every twelve hoursBactrim DS 800-160 MG 1 tablet Orally Twice a day for 10 day(s) Nov, ActivetraMADol hydrochloride 50 mg oral tablet (16 sources)Opioid AgonistStart: 10-22-2023 End: 04-42-6275ydvj 1 tablet by mouth once daily at bedtime as neededTramadol 50 mg tablet Discontinued 50 MG PO Daily October 22, 2023 12:00am October 22, 2023 9:33am FreeTextSi tablet as needed Orally Once a day (QHS); Note: Source Status: Taking; Refills: 0; Provider: Asha Albrechtart: 32-28-4916itsz 1 tablet by mouth once daily at bedtime as neededtraMADol HCl 50 MG 1 tablet as needed Orally Once a day (QHS) for 7 days Mar, Active Problems Active Problems Problem ClassificationProblemDateDocumented DateEpisodic/ChronicAbdominal pain (1 source)Abdominal pain; Translations: [Unspecified abdominal pain]Onset: 84-04-6577IjocqswgUtxvbyq disorders (17 sources)Xjoxwdj67-38-2568DslwmxbExvasxa dysrhythmias (4 sources)Palpitations; Translations: [Palpitations]06-35-9632Iebhzdmj Genitourinary symptoms and ill-defined conditions (20 sources)Urinary incontinence; Translations: [Unspecified urinary incontinence]Onset: 05-25-2024 Resolved: 597336-90-3949SgzkcyyMxbykdr and fatigue (11 sources)Fatigue; Translations: [Other fatigue]Onset: 66-76-2246Edbymfpl Menopausal disorders (20 sources)Menopausal and postmenopausal disorders; Translations: [Unspecified menopausal and perimenopausal disorder]Onset: 37-04-4701ZmmzgflMbmk disorders (20 sources)Bipolar disorder; Translations: [Bipolar disorder, unspecified] Onset: 12-13-2021 Resolved: 48-07-4301GqfwoqkAjwig aftercare (8 sources)H/O: high risk medication; Translations: [Other intermediate (current) drug therapy]EpisodicOther aftercare (5 sources)Other long term care social worker (current) drug therapy; Translations: [OTH KENNEL AIDE CURRENT DRUG THERAPY]Onset: 67-78-6929TdojtwyoDrjsn aftercare (3 sources)Long-term current use of drug therapy; Translations: [Other intermediate (current) drug therapy]Onset: 66-27-8134SorfckgnThtmr aftercare (4 sources)Long-term current use of lithium; Translations: [Other long term care social worker (current) drug therapy]81-43-3673UkkpizgjPiorv bone disease and musculoskeletal deformities (2 sources)Adolescent idiopathic scoliosis; Translations: [Adolescent idiopathic scoliosis, lumbosacral region]ChronicOther bone disease and musculoskeletal deformities (1 source)Adolescent idiopathic scoliosis, lumbosacral regionChronicOther circulatory disease (2 sources)Elevated blood-pressure reading without diagnosis of hypertension; Translations: [Elevated blood-pressure reading, without diagnosis of hypertension]EpisodicOther female genital disorders (7 sources)Vaginal dryness; Translations: [Other specified noninflammatory disorders of vagina]84-35-9295TrxnvewgDextd female genital disorders (2 sources)Other specified conditions associated with female genital organs and menstrual cycle; Translations:[Other specified conditions associated with female genital organs and menstrual cycle]Onset: 28-15-1173MqwpdbzeRlcxe gastrointestinal disorders (1 source)Constipation, unspecified; Translations: [Constipation, unspecified] Onset: 11-97-1219ZiviqlckMyppb nervous system disorders (15 sources)Chronic pain; Translations: [Other chronic pain]Onset: 02-05-2025 Resolved: 100256-49-4367LonvrhpDlozr nervous system disorders (1 source)Other chronic painChronicOther non-traumatic joint disorders (1 source)Pain in right hipEpisodicOther nutritional; endocrine; and metabolic disorders (1 source)Obesity; Translations: [Obesity, unspecified]Onset: 14-56-0617Dwghiel Other nutritional; endocrine; and metabolic disorders (2 sources)Body mass index 25-29 - overweight; Translations: [Body mass index (BMI) 29.0-29.9, adult]EpisodicOther skin disorders (2 sources)Acne, unspecified; Translations: [Other acne]61-13-1279JrgdhluwSuzbk skin disorders (4 sources)Loss of hair; Translations: [Nonscarring hair loss, unspecified] 96-68-4087YomurenwUratcv media and related conditions (2 sources)Non-suppurative otitis media; Translations: [Unspecified nonsuppurative otitis media, left ear]EpisodicProlapse of female genital organs (20 sources)Cystocele; Translations: [Cystocele, unspecified]Onset: 06-11-2024 ChronicRehabilitation care; fitting of prostheses; and adjustment of devices (1 source)Encounter for fitting and adjustment of other specified devices; Translations: [Encounter for fitting and adjustment of other specified devices] Onset: 84-29-7842IziuzvoGupwhosj codes; unclassified (14 sources)Sleep gsxij36-78-1740RrgimkyJzpqaorb codes; unclassified (1 source)Family history of malignant neoplasm of breast; Translations: [FAMILY HX MALIG NEOPLASM OF BREAST]Onset: 29-63-0496EcbhxcynYjojnfuq codes; unclassified (1 source)Family history of malignant neoplasm of digestive organs; Translations: [FAM HX MALIG NEOPLASM DIGESTIV ORGN]Onset: 50-42-8013Nxyzkafx Residual codes; unclassified (2 sources)Tobacco user; Translations: [Tobacco use]EpisodicResidual codes; unclassified (17 sources)Chronic dwzf18-34-2719ObzmgfrgSostuojdlbp; intervertebral disc disorders; other back problems (8 sources)Solitary sacroiliitis; Translations: [Sacroiliitis, not elsewhere classified]ChronicThyroid disorders (20 sources)Hyperthyroidism; Translations: [Thyrotoxicosis, unspecified without thyrotoxic crisis or storm]Onset: 340176-99-6715TvdvgmdEfnnlhpgqtup (3 sources)LOW BACK PAIN, UNSPECIFIED; Translations: [LOW BACK PAIN, UNSPECIFIED]Onset: 13-06-4498Vyiifau tract infections (15 sources)Urinary tract infectious disease; Translations: [Urinary tract infection, site not specified]Onset: 057247-30-1010Xtyipqkk Past or Other Problems Problem ClassificationProblemDateDocumented DateEpisodic/ChronicAcute and unspecified renal failure (11 sources)Acute renal failure syndrome; Translations: [Acute kidney failure, unspecified]Onset: 07-24-2024 Resolved: 63-68-4498WwnlgvzmFpymm myocardial infarction (20 sources)Myocardial infarction; Translations: [Acute myocardial infarction, unspecified]Onset: 02-05-2025 Resolved: 916649-38-1808UgouiizKsggywx on above:Outside Source Comment: Comment on above: 2004Anxiety disorders (8 sources)Anxiety disorder due to a general medical condition; Translations: [Anxiety disorder due to known physiological condition]Onset: 02-05-2025 Resolved: 699017-98-0039GqqplmpgOkyfuggxtfkf of device; implant or graft (15 sources)Infection of bladder catheter; Translations: [Infection and inflammatory reaction due to other urinary catheter, initial encounter]Onset: 07-30-2024 Resolved: 56-93-9905YkxvsfugXidiycmzh of lipid metabolism (20 sources)Hypercholesterolemia; Translations: [Pure hypercholesterolemia, unspecified]Onset: 02-05-2025 Resolved: 815382-62-6625InimuprYohpmgdjac disorders (20 sources)Gastroesophageal reflux disease; Translations: [Gastroesophageal reflux disease without esophagitis]Onset: 07-25-2024 Resolved: 953637-77-0870HqhjvyhTdshhskof hypertension (20 sources)Essential (primary) hypertension; Translations: [Essential hypertension]Onset: 05-17-2022 Resolved: 332414-95-7567QrdrfvfCiiyjbfcmnuzu symptoms and ill-defined conditions (20 sources)Dysuria; Translations: [Dysuria]Onset: 05-19-2024 Resolved: 771211-67-2336ZrlzlltcTkapwzgz; including migraine (20 sources)Migraine; Translations: [Migraine, unspecified, not intractable, without status migrainosus]Onset: 02-05-2025 Resolved: 874674-26-5197SfksyvpLpcpgpxobcdtl and screening for infectious disease (4 sources)Exposure to sexually transmissible disorder; Translations: [Contact with and (suspected) exposure to infections with a predominantly sexual mode of transmission]91-83-6976KtzgtkbmKoccubvytatqx mental health disorders (8 sources)Primary insomnia; Translations: [Primary insomnia]Onset: 09-26-2016 Resolved: 023540-79-9929RzusswpHobfdogmb of unspecified nature or uncertain behavior (20 sources)Neoplasm of uncertain behavior of bladder; 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]Onset: 06-11-2024 Resolved: 75-73-2286ApmrrxpgClyhmtkzfmru breast conditions (20 sources)Breast lump; Translations: [Unspecified lump in the right breast, unspecified quadrant]Onset: 11-19-2023 Resolved: 039642-05-3091NmqzaetsGhgfd acquired deformities (20 sources)Scoliosis deformity of spine; Translations: [Scoliosis, unspecified] Onset: 02-05-2025 Resolved: 044022-31-5594EtdjnbrStupb and ill-defined heart disease (20 sources)Heart disease; Translations: [Heart disease, unspecified]Onset: 02-05-2025 Resolved: 888210-52-9248JmzdcvsTqzvt diseases of bladder and urethra (20 sources)Urethral caruncle; Translations: [Urethral caruncle]Onset: 06-11-2024 Resolved: 41-58-6466YzaofwiyQgqbj endocrine disorders (2 sources)Disorder of endocrine system; Translations: [Endocrine disorder, unspecified]59-64-7106HmfjmxscPivet female genital disorders (2 sources)Vaginal discharge; Translations: [Other specified noninflammatory disorders of vagina]24-71-9374MzflgbecNggpt non-traumatic joint disorders (5 sources)Pain in right hip joint; Translations: [Pain in right hip]Onset: 297497-29-8232JqpjidxaAcnkl non-traumatic joint disorders (15 sources)Hip pain; Translations: [Pain in right hip]Onset: 04-22-2023 63-59-3296MmgonuceBomsi nutritional; endocrine; and metabolic disorders (20 sources)Overweight; Translations: [Overweight]Onset: 02-05-2025 Resolved: 590386-26-3437CcxdsqrmHkhff nutritional; endocrine; and metabolic disorders (20 sources)Overweight in adulthood with body mass index of 25 or more but less than 30; Translations: [Body mass index (BMI) 28.0-28.9, adult]Onset: 02-05-2025 Resolved: 065578-01-7174IdprbzdtBkvpk screening for suspected conditions (not mental disorders or infectious disease) (20 sources)Encounter for screening mammogram for malignant neoplasm of breast; Translations: [Ultrasonography of breast abnormal]Onset: 02-01-2014 Resolved: 97-97-3502AlaqvtjlSavan skin disorders (20 sources)Acne; Translations: [Acne, unspecified]Onset: 02-05-2025 Resolved: 944732-67-9037OxqqmcstBdhgrjkw codes; unclassified (10 sources)Obstructive sleep apnea syndrome; Translations: [Obstructive sleep apnea (adult) (pediatric)]Onset: 09-26-2016 Resolved: 742446-86-9211LvchgulAtnnvhck codes; unclassified (2 sources)Postmenopausal state; Translations: [Asymptomatic menopausal state] 39-10-0579FcrnhiwwEuttnydg codes; unclassified (1 source)Other specified postprocedural states; Translations: [Other specified postprocedural states]Onset: 18-82-6000PnbiqfcpLugjkyvixr (except in labor) (3 sources)Sepsis, unspecified organism; Translations: [A41.9]Onset: 07-25-2024 EpisodicSpondylosis; intervertebral disc disorders; other back problems (20 sources)Radiculopathy, lumbar region; Translations: [Lumbar radiculopathy] Onset: 46-22-7029SnsgupwtQejutduhjbmn (1 source)Lumbar pain M54.50Unclassified (1 source)Other low back pain M54.59Unclassified (1 source)LOW BACK PAIN, UNSPECIFIED; Translations: [LOW BACK PAIN, UNSPECIFIED] Onset: 12-06-2022 Results Test NameValueInterpretationReference RangeFacilityLon 02-22-2025L Specimen: [id number] Received: 02/22/25 Status: SAWYERBlaze Chau Num: [id number] Spec Type: Cytology Subm Dr: Scooby Fitzgerald DO Tissues: A FNA SLIDES NOPATH (LT THYROID NODULE) Procedures: Cyto Int and Re, PAPSTN/13 Age/ Patient Sex Location Account Attending Physician Rain Sweeney 64/F SHREYAS [id number] Scooby Fitzgerald DO SPEC NUM: [id number] RECD: 02/22/25 STATUS: VALERIE CHAU NUM: [id number] JOSEMANUEL: 02/22/[address] [facility] [address]: Scooby Fitzgerald DO ENTERED: 02/22/[address] [facility] [address]: SPEC TYPE: Cytology DEPT: CNG ENTERED BY: [id number] RECV BY: [id number] ORDERED: Cyto Int and Re, PAPSTN ORDERED: Cyto Int and Re, PAPSTN Pathological Diagnosis Left thyroid nodule, fine-needle aspirate (smears and ThinPrep): ? Follicular lesion of undetermined significance, Baxter category III ? Specimen contains a few [...] vial stored at -20 for microscopic examination. (/il) CPT Codes 71660, 60221 Specimen: [id number] Received: 02/22/25 Status: VALERIE Chau Num: [id number] Spec Type: Cytology Subm Dr: Scooby Fitzgerald DO Tissues: A FNA SLIDES MARIELENAATH (LT THYROID NODULE) Procedures: Cyto Int and Re, PAPSTN Patient: Rain Sweeney [id number] (Continued) Signed (signature on file) Kyrie Landers MD 02/23/25 0848 NormalThe Atrium Health Physician GroupBasophils Auto (Bld) [#/Vol]on 01-21-2025 Basophils (Bld) [#/Vol]0.1 10 3/uL0.0-0.1FSumma Health [facility] Campus Basophils/100 WBC Auto (Bld)on 28-61-4573Pvyglocmf/100 WBC (Bld)1.7 %0.2-2.0 [facility] HealthEosinophils/100 WBC Auto (Bld)on 01-21-2025 Eosinophils/100 WBC (Bld)6.7 %0.9-7.0[facility] Erythrocyte distribution width Auto (RBC) [Ratio]on 17-29-3126Bmbecxgdvya distribution width (RBC) [Ratio]16.8 %High11.0-15.0[facility] HealthGlobulin Calc (S) [Mass/Vol]on 30-10-0516Qhnqzatv (S) [Mass/Vol]3.9 g/dL [facility] HealthHematocrit Auto (Bld) [Volume fraction]on 74-01-1744Vhjyopciiy (Bld) [Volume fraction]43.3 %36.0-48.0[facility] HealthHemoglobin [Mass/volume] in Bloodon 38-02-1697Neycplcvzf (Bld) [Mass/Vol]13.7 g/dL12.0-16.0[facility] HealthLaboratory - Chemistry and Chemistry - challengeon 22-82-8971Kmgqyjx [Mass/Vol]3.2 g/dLLow 3.4-5.0[facility] HealthALP [Catalytic activity/Vol]99 U/L46-116 [facility] HealthALT [Catalytic activity/Vol]19 U/L14-59 [facility] HealthAST [Catalytic activity/Vol]13 U/SQvq46-80 [facility] HealthBilirubin [Mass/Vol]0.3 mg/dL0.2-1.0[facility] HealthBilirubin.direct [Mass/Vol]0.1 mg/dL0.0-0.2FSumma Health Akron CampusFree T4 [Mass/Vol]0.63 ng/dLLow0.76-1.46[facility] HealthProtein [Mass/Vol]7.1 g/dL6.4-8.2FSumma Health Akron CampusTSH Qn2.870 m[IU]/L0.358-3.740[facility] - Hematology and Cell countson 14-09-8286Hddbfmna granulocytes/100 WBC (Bld)0.6 %High0.0-0.5FSumma Health Akron CampusLeukocytes [#/volume] corrected for nucleated erythrocytes in Blood by Automated counon 46-98-7156MCV corrected for nucl RBC Auto (Bld) [#/Vol]5.4 10 3/uL4.0-11.0[facility] HealthLymphocytes Auto (Bld) [#/Vol]on 79-69-5363Snramfmqzpa (Bld) [#/Vol]1.6 10 3/uL1.2-3.8[facility] HealthLymphocytes/100 WBC Auto (Bld)on 42-07-2266Vmbzduscmej/100 WBC (Bld)29.1 %20.5-60.0[facility] HealthMCH Auto (RBC) [Entitic mass]on 29-16-5644TUT (RBC) [Entitic mass]27.1 pg26.7-34.0[facility] HealthMCHC Auto (RBC) [Mass/Vol]on 94-23-9066OEHH (RBC) [Mass/Vol]31.6 g/dL29.9-35.2FSumma Health Akron CampusMCV Auto (RBC) [Entitic vol]on 43-36-4973JLW (RBC) [Entitic vol] 85.7 fL81.0-99.0[facility] HealthMonocytes Auto (Bld) [#/Vol]on 37-04-7899Gxevzxnkc (Bld) [#/Vol]0.5 10 3/uL0.3-0.8[facility] HealthMonocytes/100 WBC Auto (Bld)on 95-26-5283Tmaifgdpw/100 WBC (Bld)8.3 % 1.7-12.0[facility] HealthNeutrophils Auto (Bld) [#/Vol]on 39-17-4304Xtmfuwlsgyh (Bld) [#/Vol]2.9 10 3/uL1.4-6.5FSumma Health Akron CampusNeutrophils/100 WBC Auto (Bld)on 55-97-0044Hotgpynkdls/100 WBC (Bld)53.6 % 43.0-75.0[facility] HealthNo Panel Informationon 01-21-2025 Eosinophils # (Auto)0.4 10 3/uL0.0-0.7FSumma Health Akron CampusFree Triiodothyronine2.19 pg/mL2.18-3.98[facility] HealthImmature Granulocyte # (Auto)0.03 10 3/uL0.00-0.03[facility] Platelet mean volume Auto (Bld) [Entitic vol]on 33-55-9587Xsdhkypv mean volume (Bld) [Entitic vol]10.4 fL9.5-13.5FSumma Health Akron CampusPlatelets Auto (Bld) [#/Vol]on 89-57-1623Jtvlmjkpk (Bld) [#/Vol]246 10 3/qU381-391 [facility] HealthRBC Auto (Bld) [#/Vol]on 96-16-6166VJI (Bld) [#/Vol]5.05 10 6/uL4.20-5.40[facility] Park Hospitalerum or plasma albumin/globulin mass ratioon 18-34-9568Fymcgyt/Globulin [Mass ratio]0.8 {ratio} [facility] HealthNM thyroid w uptakeon 56-08-9865RZ thyroid w uptakeMOUNT ST. [facility] Main [place] [id number] Nuclear Medicine Report Signed Patient: Rain Sweeney MR#: [id number] 609 : 1960 Acct:[id number] Age/Sex: 64 / F ADM Date: 01/13/25 Loc: Room: Type: [facility] Attending Dr: Song Covarrubias MD Copies [...] Carlton M.D. 01/14/2025 8:18 AM Dictation Location: [place] [address] Transcribed By: [facility] 01/14/25817 Dictated By: Pieter Carlton II, MD 01/14/2516 Signed By: 01/14/25 0818[facility] Physician GroupUS thyroidon 19-54-1286KF thyroidMOUNT ST. [facility]ARY [facility] Main [address] [address] Ultrasound Report Signed Patient: Rain Sweeney MR#: [id number] 609 : 1960 Acct:[id number] Age/Sex: 64 / F ADM Date: 01/13/25 Loc: Room: Type: [facility] Attending Dr: Song Covarrubias MD Ordering [...] Kellogg M.D. 01/13/2025 9:02 AM Dictation Location: [place] [address] Tech: Nara Heaton Transcribed By: BRYSON 01/13/25 09 Dictated By: Denae Kellogg MD 01/13/25 09 Signed By: 01/13/25 0902[facility] Phys[facility] GroupLaboratory - Chemistry and Chemistry - challengeon 64-48-8076Vqvj T4 [Mass/Vol]0.83 ng/dL0.76-1.46[facility] HealthTSH Qn0.015 m[IU]/LLow0.358-3.740[facility] HealthNo Panel Informationon 11-98-5118Duhm Triiodothyronine3.32 pg/mL 2.18-3.98[facility] Park Hospitalerum or plasma thyroglobulin antibody assay (units/volume)on 63-00-9964Dyvgavwgqiwft Ab QnSerum or plasma thyroglobulin antibody assay (units/volume)Abnormal0.0-0.9[facility] HealthComment on above:Thyroglobulin Antibody measured by Bambi CoulterMethodologyIt should be noted that the presence of thyroglobulinantibodies may not be pathogenic nor diagnostic, especiallyat very low levels. The assay production control clerk has found thatfour percent of individuals without evidence of thyroiddisease or autoimmunity will have positive TgAb levels upto 4 IU/mL.Performed at: [facility]Mfjrnn[address] [place], [place] [id number] Director: Reji Williamson PhD, Phone: [phone] Ab Qn2.0 [IU]/mLAbnormal0.0-0.9[facility] HealthComment on above:Thyroglobulin Antibody measured by Bambi CoulterMethodologyIt should be noted that the presence of thyroglobulinantibodies may not be pathogenic nor diagnostic, especiallyat very low levels. The assay production control clerk has found thatfour percent of individuals without evidence of thyroiddisease or auto immunity will have positive TgAb levels upto 4 IU/mL.Performed at: [facility]Qxunlx[address] [place], [place] [id number] Director: Reji Williamson PhD, Phone: [phone] or plasma thyroperoxidase antibody assay (units/volume) on 09-96-5156HTN Ab QnSerum or plasma thyroperoxidase antibody assay (units/volume)0-34[facility] HealthTPO Ab Qn12 [IU]/mL0-34 [facility] Hospitalerum thyrotropin receptor antibody assay (units/volume)on 93-87-1843KID receptor Ab Qn (S)Serum thyrotropin receptor antibody assay (units/volume)0.00-1.75[facility] HealthComment on above:Performed at: [facility] [id number] Director: Danilo Lloyd MD, Phone: [phone] receptor Ab Qn (S)<1.10 IU/L0.00-1.75[facility] HealthComment on above: Performed at: [facility] [id number] Director: Danilo Lloyd MD, Phone: [phone] in LDL Calc [Mass/Vol]on 57-26-4171Mjxywunzovo in LDL [Mass/Vol]Cholesterol in LDL [Mass/volume] in Serum or Plasma by calculationMadison Health Comment on above:<100 mg/dl NIEMONN780-695 mg/dl NEAR OR ABOVE AANTDRX336-088 mg/dl BORDERLINE HAQG331-677 mg/dl HIGH>190 mg/dl VERY HIGHCholesterol in VLDL Calc [Mass/Vol]on 85-34-4903Jaufnbejurt in VLDL [Mass/Vol]Cholesterol in VLDL [Mass/volume] in Serum or Plasma by calculationMadison Health Estimated glomerular filtration rate (GFR) non- Americanon 11-18-2024 GFR/1.73 sq M.predicted among non-blacks MDRD (S/P/Bld) [Vol rate/Area]Estimated glomerular filtration rate (GFR) non- AmericanLow>=60 mL/min/1.73m 2 [facility] HealthGlucose mean value [Mass/volume] in Blood Estimated from glycated hemoglobinon 26-28-7459Hhrtujj glucose Estimated from glycated hemoglobin (Bld) [Mass/Vol]Glucose mean value [Mass/volume] in Blood Estimated from glycated hemoglobinMadison HealthHemoglobin A1c percentageon 46-04-7949PoE7n (Bld) [Mass fraction]Hemoglobin A1c percentage 4.5-6.2FSumma Health Akron CampusComment on above:ADA RECOMMENDED LIMIT 4.0 - 6.0ADA THERAPEUTIC TARGET < 7.0ACTION SUGGESTED> 7.0Laboratory - Chemistry and Chemistry - challengeon 07-77-3355Nlapcewgdvc [Mass/Vol]210 mg/dLHigh<=200 [facility] HealthCholesterol in HDL [Mass/Vol]83 mg/eLYmeu28-76 [facility] HealthComment on above:> or =60 mg/dl - LOW CARDIOVASCULAR RISK<40 mg/dl - HIGH CARDIOVASCULAR RISKCreatinine [Mass/Vol]1.00 mg/dL0.55-1.02[facility] HealthGFR/1.73 sq M.predicted MDRD (S/P/Bld) [Vol rate/Area]mL/min/{1.73_m2}>=60 mL/min/1.73m 2FSumma Health Akron CampusGlucose [Mass/Vol]104 mg/jO36-176LwsqcudcjMadison Health Triglyceride [Mass/Vol]98 mg/dL<=150Mad[facility] HealthTSH Qn0.020 m[IU]/LLow0.358-3.740[facility] HealthNo Panel Informationon 18-08-2540Ynoalip Level0.7 mmol/L0.5-1.2FSumma Health Akron CampusComment on above:A concentration of 0.5-0.8 mmol/L is advised for long-termuse; concentrations of up to 1.2 mmol/L may be necessaryduring acute treatment. Detection Limit = 0.1 <0.1 indicates None DetectedPerformed at: [facility] [id number] Director: Reji Williamson PhD, Phone: [phone] or plasma total cholesterol/high density lipoprotein (HDL) cholesterol mass yoselyn 53-39-7422Tctklhjlgaj.total/Cholesterol in HDL [Mass ratio]Serum or plasma total cholesterol/high density lipoprotein (HDL) cholesterol mass [facility] HospitalComment on above:3.3 - 4.4 LOW RISK4.4 - 7.1 AVERAGE RISK7.1 - 11.0 MODERATE RISK>11.0 HIGH RISKAmbulatory Visit Summaryon 51-16-7061Eoepdojahf Visit SummaryAmbulatory Visit Summary RAIN SWEENEY :1960 Visit Date:10/22/2024 [...] venlafaxine Procedures Performed Cystoscopy (07/22/2024), Cystoscopy (06/24/2024), OBSERVATION:PRID:PT:CVX:NOM:CYTO STAIN (04/21/2024), History of augmentation of breast, History of bilateral breast implants, History of nasal sinus surgery, Stapedectomy, Tubal ligation. Discharge Vitals Heart Rate (Peripheral) 95 Respiratory Rate 16 Blood Pressure 135/88 Height 67 in Height 170 cm Weight 180.779 lb Weight 82 kg BMI 28.37 What to do next Scheduled Follow-Up Appointments Friday 7:30 AM EDT Where: [facility] 2024 11:00 AM EDT Where: [facility] You Need to [...] Mouth 2 times a day Take one tabletin morning and Two tablets at night Contact prescribing physician if questions or concerns Unchanged tretinoin topical (tretinoin Top 0.1% Crm) 1 Application Topical Once a day (at bedtime) Contact prescribing physician if questions or concerns Unchanged venlafaxine 225 Milligram By Mouth Every day as directed Contact prescribing physician ifquestions or concerns Medications and Immunizations Administered Given [...] want to use the (more content not included)...[facility] CampusUrology Office/Clinic Noteon 81-64-8847Lvnxbwb Office/Clinic Note Urology Office/Clinic Note Chief Complaint [...] active chronic inflammation, compatible with rendered diagnosis. 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 Noinvasive or high grade disease is identified. No [...] formation at the left lateral wall. We willproceed with a cystoscopy, transurethral resection of bladder tumor, possible excision. Risk, benefits, alternatives were discussed with the patient and she w (more content not included)...[facility] CampusComment on above:Result Comment: Electronically Signed By: GABBY RAMIREZ, HAMILTON\.br\Date and Time Signed: 10/22/24 10:07 EDT\.br\Electronically Co-Signed By: Gamaliel Moody\.br\Date and Time Co-Signed: 10/22/24 09:23 EDT\.br\Electronically Co-Signed By: Gamaliel Moody\.br\Date and Time Co-Signed: 10/22/24 09:24 EDTECG 12 lead ECGon 04-78-5726JKI [address] [facility] Main [place] [address] [place] [address] Electrocardiograph Report Signed Patient: Rain Sweeney MR#: [id number] 609 : 1960 Acct:[id number] Age/Sex: 64 / F ADM Date: 08/18/24 Loc: [place] Room: Type: [facility] Attending Dr: Hamilton Malone MD Ordering Provider: [...] Signed By Roberto Diaz MD 0 08/18/[address] [place] [address] Physician GroupAmbulatory Visit Summaryon 65-09-8127Rmmtyunnki Visit SummaryAmbulatory Visit Summary RAIN SWEENEY :1960 Visit Date:08/13/2024 [...] venlafaxine Procedures Performed Cystoscopy (07/22/2024), Cystoscopy (06/24/2024), OBSERVATION:PRID:PT:CVX:NOM:CYTO STAIN (04/21/2024), History of augmentation of breast, History of bilateral breast implants, History of nasal sinus surgery, Stapedectomy, Tubal ligation. What to do next Scheduled Follow-Up Appointments 2024 8:00 AM EST With: HAMILTON MALONE MD Where: [facility] [address], [address] [place] [address]- You Need to Schedule the Following Appointments Follow Up with GABBY RAMIREZ, HAMILTON, URL When: Comments: sched loosening of MUS [...] Mouth 2 times a day Take one tabletin morning and Two tablets at night Contact prescribing physician if questions or concerns Unchanged tretinoin topical (tretinoin Top 0.1% Crm) 1 Application Topical Once a day (at bedtime) Contact prescribing physician if questions or concerns Unchanged venlafaxine 225 Milligram By Mouth Every day as directed Contact prescribing physician ifquestions or concerns Allergies penicillin (Hives) Problems Ongoing [...] including vitamins, herbs, eye drops, creams, and tlwb-tiu-lvclroc medicines. ??? Any problems you or family [...] hours before the proced (more content not included)...[facility] CampusUrology Video Visit - Telehealthon 59-14-4283Vgfwxgz Video Visit - TelehealthUrology Video Visit - Telehealth Chief Complaint Discuss loosening sling HPI Staff 64 year old female patient here for PO MUS 07/22/24.Discuss loosening the sling Previous Dx: stressincontinence, urinary retention, bladder neoplasm of uncertain malignant, [...] or in the future, inability to void withneed for indwelling catheter or in/out catheter, and [...] active chronic inflammation, compatible with rendered diagnosis. 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 Noinvasive or high grade disease is identified. No [...] real-time interactive video communicat (more content not included)...[facility] CampusComment on above: Result Comment: Electronically Signed By: HAMILTON MALONE MD\.br\Date and Time Signed: 08/13/24 13:00 EST\.br\Electronically Co-Signed By: Ani Kirk\.br\Date and Time Co-Signed: 08/13/2511:19 EST\.br\Electronically Co-Signed By: Ani Kirk\.br\Date and Time Co-Signed: 08/13/24 12:20 ESTAmbulatory Visit Summaryon 31-62-5686Kyzcawrbfp Visit SummaryAmbulatory Visit Summary JEFFYGUILHERME RAIN LEYDA :1960 Visit Date:08/06/2024 Ambulatory Visit Instructions Your [...] venlafaxine Procedures Performed Cystoscopy (07/22/2024), Cystoscopy (06/24/2024), OBSERVATION:PRID:PT:CVX:NOM:CYTO STAIN (04/21/2024), History of augmentation of breast, [...] HAMILTON MALONE MD Where: [facility] [address] [place] [address]- You Need to Schedule the Following Appointments Follow Up with GABBY RAMIREZ, HAMILTON, JAYY When: Where: Medications What How Much [...] Mouth 2 times a day Take one tabletin morning and Two tablets at night Contact prescribing physician if questions or concerns Unchanged tretinoin topical (tretinoin Top 0.1% Crm) 1 Application Topical Once a day (at bedtime) Contact prescribing physician if questions or concerns Unchanged venlafaxine 225 Milligram By Mouth Every day as directed Contact prescribing physician ifquestions or concerns Allergies penicillin (Hives) Problems Ongoing [...] on a physical exa (more content not included)...[facility] CampusUrology Office/Clinic Noteon 26-04-9062Vgaullb Office/Clinic NoteUrology Office/Clinic Note Chief Complaint 2 week follow up [facility] Staff 64 year old female patient here for a 6 day follow up from [facility] follow up from 07/31/24.Bladder scan: 915 [...] office on 08/02/24, pt was seen at [facility] on 07/30/24 due to not being able to urinate, had Lyn placed. Pt called our office on 07/30/24 to notify us of only dribbling small amounts, had a cysto/UD done earlier that day as well as a Lyn removed from being placed at her [facility] [place] on 07/25/24 due to not being able to void after her urethral sling placement on 08/03. Bladder scan: 915 cc 07/31/24. UA not provided due to Lyn. Patient reports feeling the urge to void, feels she has more control than before. States sometimes she will void w Lyn in. Lyn will be removed IO. Today we discussed the options. The patient has been found to have urinary retention, with recommendation to start CIC (clean intermittent catheterization) to intermittentlyempty the urinary bladder. We taught the technique, with instruction to measure the residual urine by straight catheterizing after first attempting to void. The risks of CIC were discussed, includingbleeding, infection and causing UTI's (although urinary retention itself is also a risk). Questionswere answered and the patient verbalized understanding. Straight [...] active chronic inflammation, compatible with rendered diagnosis. 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 Noinvasive or high grade disease is identified. No [...] 6-12 mos. 4. Urethra (more content not included)...[facility] Comment on above:Result Comment: Electronically Signed By: HAMILTON MALONE MD\.br\Date and Time Signed: 08/06/24 10:45 EST\.br\Electronically Co- Signed By: Gamaliel Moody\.br\Date and Time Co-Signed: 08/06/24 10:09 EST\.br\Electronically Co-Signed By: Gamaliel Moody\.br\Date and Time Co- Signed: 08/06/24 10:11 ESTAmbulatory Visit Summaryon 86-51-9684Ykmdfjatdq Visit SummaryAmbulatory Visit Summary RAIN SWEENEY :1960 Visit Date:07/30/2024 [...] HAMILTON MALONE MD Where: [facility] [address], [address] [place] [address]- Medications What How Much When Instructions Unchanged [...] Mouth 2 times a day Take one tabletin morning and Two tablets at night Contact prescribing physician if questions or concerns Unchanged tretinoin topical (tretinoin Top 0.1% Crm) 1 Application Topical Once a day (at bedtime) Contact prescribing physician if questions or concerns Unchanged venlafaxine 225 Milligram By Mouth Every day as directed Contact prescribing physician ifquestions or concerns Medications and Immunizations Administered Given [...] abdomen. How is this (more content not included)...[facility] Urology Office/Clinic Noteon [id number] Office/Clinic NoteUrology Office/Clinic Note Chief Complaint [facility] urinary retention HPI Staff 64 year old female patient here for a [facility] ER follow up (transferred from [facility]) for urinary retention. Consult done 07/25/24. Pt [...] urine The Urethra was dilated to: 26 Greek with sounds. Removal: Cystoscope is removed. The [...] active chronic inflammation, compatible with rendered diagnosis. 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 Noinvasive or high grade disease is identified. No [...] Urinary retention (R33.9: Retention of urine, unspecified) [facility] ER follow up (transferred from [facility]) for urinary re (more content not included)...[facility] CampusComment on above:Result Comment: Electronically Signed By: HAMILTON MALONE MD\.br\Date and Time Signed: 07/30/24 10:54 EST\.br\Electronically Co-Signed By: Gamaliel Moody\.br\Date and Time Co-Signed: 07/30/24 10:50 ESTGeneral Message Officeon 08-10-2564Ordpqek Message OfficeGeneral Message Office --- --- --- --- --- --- --- --- --- From: Edmond Soler To: RAIN SWEENEY Sent: 07/28/24 02:31:01 AM EST Subject: Discharge Summary Ready to View A summary regarding your recent visit is available in the Documents section of your health record.[facility]In[facility] Patient Summaryon [id number] Patient SummaryInpatient Patient Summary RAIN SWEENEY :1960 Visit Date:07/25/2024 [...] these medications oxycodone (Roxicodone 5 mg Tab) sulfamethoxazole-trimethoprim (Bactrim D.S. 800 mg-160 mg Tab) Procedure [...] days Comments: Call for followup appointment Where: [facility] [place] [address] [phone] Business (1) Follow Up with SEB BARRY When: Within 5 to 7 days Comments: Call for followup appointment Where: [facility] [place] [address]- Business (1) Medications What How Much [...] Mouth 2 times a day Take one tabletin morning and Two tablets at night 07/27 am, pm Unchanged tretinoin topical (tretinoin Top 0.1% Crm) 1 Application Topical Once a day (at bedtime) 07/27 pm Unchanged venlafaxine 225 Milligram By Mouth Every day as directed 07/27 What How Much When Comments Stop Taking oxycodone (Roxicodone 5 mg Tab) 1 Tablets By Mouth Every 6 hours as needed for for pain Stop Taking sulfamethoxazole-trimethoprim (Bactrim D.S. 800 mg-160 mg Tab) 1 [...] nervous system and you (more content not included)...Normal[facility] BMPon 27-41-4127Oygrq gap [Moles/Vol]8 mmol/LNormal6-16[facility] HospitalComment on above:Performed By: #### [id number] #### [facility] [address], [place] [address]Hmpzadr [Mass/Vol]8.4 mg/dLLow8.9-11.1[facility] Trauma CenterComment on above:Performed By: #### [id number] #### [facility] [address], [place] [address]Ivzkvmgi [Moles/Vol]113 mmol/RNhkt142-599DbirxiVan Wert County HospitalComment on above:Performed By: #### [id number] #### [facility] [address], [place] [address]RA1 [Moles/Vol]25 mmol/GQklrdi49-72InqjbnVan Wert County Hospital Comment on above:Performed By: #### [id number] #### [facility] [address], [place] [address]Tuxskfeubk [Mass/Vol]0.9 mg/dLNormal0.5-1.3FMarion HospitalComment on above:Performed By: #### [id number] #### [facility] [address], [place] [address]Swjceuq [Mass/Vol]96 mg/hEAtslyu93-661LclxxyVan Wert County HospitalComment on above:Performed By: #### [id number] #### [facility] [address], [place] [address]Kgabztnbn [Moles/Vol]4.5 mmol/LNormal3.5-5.3FMarion HospitalComment on above:Performed By: #### [id number] #### [facility] [address], [place] [address]Cjsasb [Moles/Vol]141 mmol/EEdmmix414-904HmwepdVan Wert County HospitalComment on above:Performed By: #### [id number] #### [facility] [address], [place] [address]Gjzq nitrogen [Mass/Vol]12 mg/dLNormal5-21[facility] HospitalComment on above:Performed By: #### [id number] #### [facility] [address], [place] [address]Cyct nitrogen/Creatinine [Mass ratio]13 No HpjjlTpfkmm44-16 [facility] HospitalComment on above:Performed By: #### [id number] #### [facility] [address] [place] [address]QKG w/ Auto Diffon 66-43-7543Biatomplx/100 WBC (Bld)0.8 %Normal 0.0-2.0[facility] HospitalComment on above:Performed By: #### [id number] #### [facility] [address] [place] [address]Yzijuajbk/Leukocytes Auto (Bld) [Pure # fraction]0.1 E9/LNormal 0.0-0.2FMarion HospitalComment on above:Performed By: #### [id number] #### [facility] [address] [place] [address]Kwtcqmhsrek (Bld) [#/Vol]0.3 E9/LNormal0.0-0.5FMarion HospitalComment on above:Performed By: #### [id number] #### [facility] [address] [place] [address] 05892Kawvvzlxard/100 WBC (Bld)4.4 %Normal0.0-8.0[facility] HospitalComment on above:Performed By: #### [id number] #### [facility] [address] [place] [address]25[address]Twcoooumjih distribution width (RBC) [Ratio]15.7 %High10.9-14.2 [facility] HospitalComment on above:Performed By: #### [id number] #### [facility] [address] [place] [address]Yvgtalcieb (Bld) [Volume fraction]32.4 %Low34.0-46.0[facility] HospitalComment on above:Performed By: #### [id number] #### [facility] [address] [place] [address]35[address]Jihptvmmrp (Bld) [Mass/Vol]10.8 g/dLLow12.0-16.0[facility] HospitalComment on above:Performed By: #### [id number] #### [facility] [address] [place] [address]Wnlrmheaaik (Bld) [#/Vol]2.6 E9/LNormal1.0-4.0[facility] HospitalComment on above:Performed By: #### [id number] #### [facility] [address] [place] [address]Xaxzaorircl/100 WBC (Bld)32.8 %Cotvrr20.0-50.0[facility] HospitalComment on above:Performed By: #### [id number] #### [facility] [address] [place] [address] 69362URO (RBC) [Entitic mass]30.2 tdSzwrsb76.0-34.0[facility] HospitalComment on above:Performed By: #### [id number] #### [facility] [address] [place] [address] 937[address]WLWB (RBC) [Mass/Vol]33.4 g/wSPmapba00.4-36.0[facility] HospitalComment on above:Performed By: #### [id number] #### [facility] [address] [place] [address] 63212ZSK (RBC) [Entitic vol]90.4 nZQbfwbm67.0-100.0[facility] HospitalComment on above:Performed By: #### [id number] #### [facility] [address] [place] [address] 954[address]Khvstdvur (Bld) [#/Vol]0.8 E9/LNormal0.2-1.0[facility] HospitalComment on above:Performed By: #### [id number] #### [facility] [address] [place] [address] 399[address]Xykgtdzecve (Bld) [#/Vol]4.1 E9/LNormal2.0-7.5FMarion HospitalComment on above:Performed By: #### [id number] #### [facility] [address] [place] [address] 81686Bsrbmthghag/100 WBC (Bld)52.1 %Refese42.0-75.0[facility] HospitalComment on above:Performed By: #### [id number] #### [facility] [address] [place] [address]Jdojawdv485.0 E9/XCuwudl452.0-500.0[facility] Comment on above:Performed By: #### [id number] #### [facility] [address], [place] [address]Hsbngcdn mean volume (Bld) [Entitic vol]8.1 fLNormal6.4-10.8 [facility] HospitalComment on above:Performed By: #### [id number] #### [facility] [address] [place] [address] 34380VAS (Bld) [#/Vol]3.6 E12/LLow4.3-5.9[facility] Comment on above:Performed By: #### [id number] #### [facility] [address] [place] [address] 02136KRB corrected for nucl RBC Auto (Bld) [#/Vol]7.9 E9/LNormal 4.0-11.0[facility] HospitalComment on above:Performed By: #### [id number] #### [facility] [address], [place] [address]FWXVFCZIQXdzefqw By: SYSTEM SYSTEM on 58-84-8739Rmgnm gap [Moles/Vol]8 mmol/LNormal6 - 16 mEq/LRemisol ChemCalcium [Mass/Vol]8.4 mg/dLLow 8.9 - 11.1 mg/dLRemisol ChemChloride [Moles/Vol]113 mmol/MQxdl410 - 111 mmol/L Remisol ChemCO2 [Moles/Vol]25 mmol/SGzuwlr55 - 31 mmol/LRemisol ChemCreatinine [Mass/Vol]0.9 mg/dLNormal0.5 - 1.3 mg/dLRemisol TeyniEKA52 mL/min/1.73 m5Eyfvag >=59mL/min/1.73 v3Brpakpp ChemGlucose [Mass/Vol]96 mg/qGJzzuec82 - 199 mg/dL Remisol ChemPotassium [Moles/Vol]4.5 mmol/LNormal3.5 - 5.3 mmol/LRemisol Chem Sodium [Moles/Vol]141 mmol/JDlswwl475 - 145 mmol/LRemisol ChemUrea nitrogen [Mass/Vol]12 mg/dLNormal5 - 21 mg/dLRemisol ChemUrea nitrogen/Creatinine [Mass ratio]13 mg/vuRjmnqi40 - 20Remisol ChemHEMATOLOGYOrdered By: SYSTEM SYSTEM on 19-45-6844Uggetjjfa/100 WBC (Bld)0.8 %Normal0.0 - 2.0 %Remisol Heme Basophils/Leukocytes Auto (Bld) [Pure # fraction]0.1 E9/LNormal0.0 - 0.2 E9/L Remisol HemeEosinophils (Bld) [#/Vol]0.3 E9/LNormal0.0 - 0.5 E9/LRemisol Heme Eosinophils/100 WBC (Bld)4.4 %Normal0.0 - 8.0 %Remisol HemeErythrocyte distribution width (RBC) [Ratio]15.7 %High10.9 - 14.2 %Remisol HemeHematocrit (Bld) [Volume fraction]32.4 %Low34.0 - 46.0 %Remisol HemeHemoglobin (Bld) [Mass/Vol]10.8 g/dLLow12.0 - 16.0 gm/dLRemisol HemeLymphocytes (Bld) [#/Vol]2.6 E9/LNormal1.0 - 4.0 E9/LRemisol HemeLymphocytes/100 WBC (Bld)32.8 %Wyoyee39.0 - 50.0 %Remisol HemeMCH (RBC) [Entitic mass]30.2 qlEfpgzh50.0 - 34.0 pgRemisol HemeMCHC (RBC) [Mass/Vol]33.4 g/hLYprkkj83.4 - 36.0 gm/dLRemisol HemeMCV (RBC) [Entitic vol]90.4 vDGhovhr23.0 - 100.0 fLRemisol HemeMonocytes (Bld) [#/Vol]0.8 E9/LNormal0.2 - 1.0 E9/LRemisol HemeMonocytes/100 WBC (Bld)9.9 %Normal4.0 - 14.0 %Remisol HemeNeutrophils (Bld) [#/Vol]4.1 E9/LNormal2.0 - 7.5 E9/LRemisol Heme Neutrophils/100 WBC (Bld)52.1 %Senkkr30.0 - 75.0 %Remisol RpwlNcnvpckj335.0 E9/L Umtzdu266.0 - 500.0 E9/LRemisol HemePlatelet mean volume (Bld) [Entitic vol]8.1 fLNormal6.4 - 10.8 fLRemisol HemeRBC (Bld) [#/Vol]3.6 E12/LLow4.3 - 5.9 E12/L Remisol HemeWBC corrected for nucl RBC Auto (Bld) [#/Vol]7.9 E9/LNormal4.0 - 11.0 E9/LRemisol HemeInpatient Clinical Summaryon 89-14-4482Cwxpsspsw Clinical SummaryInpatient Clinical Summary [place] [address] Clinical Summary Person Information: Name: RAIN SWEENEY Age: 64 Years : 1960 Sex: Female PCP: SEB BARRY MD Marital Status: Single Race: White Ethnicity: Non- or Language: Serbian Visit Id: Visit Reason: SEPSIS, CELLULITIS Speciality: Acuity: Enc Type: Inpatient Med Service: Medical Arrival: 07/25/2024 00:41:33 Discharge: Dispo Type: Address: [address] [place] [phone] Provider Notes: Diagnosis: 1:Abdominal pain; 2:Acute kidney [...] Physician: Follow up: With: Address: When: HAMILTON MAHARAJMARK [address] [place] [address] [phone] Business (1) Within 5 to 7 days Comments: Call for followup appointment With: Address: When: SEB BARRY [address] [place] [address] [facility] (1) Within 5 to 7 days Comments: Call for followup appointment Patient Education Information:[facility]In[facility] Patient Summaryon 58-42-4685Lrambhovq Patient SummaryInpatient Patient Summary [place] [id number] Patient Discharge Instructions PERSON INFORMATION Name: RAIN [...] Follow up: With: Address: When: HAMILTON MALONE [address] [place] [address] [phone] [facility] () Within 5 to 7 days Comments: Call for followup appointment With: Address: When: SEB BARRY [address] [place], [place] [phone] [facility] () Within 5 to 7 days Comments: Call for followup appointment In the event that this physician does not participate in your insurance network, please consult with your insurance company to find a nearby participating provider. Comment: PATEL Colin LINDA JOY, have received the attached patient education materials/instructions and haveverbalized understanding: Patient Signature Date Clinican/Nurse Signature Date [...] hours as needed for pain. Refills: 0. sulfamethoxazole-trimethoprim (Bactrim D.S. 800 mg-160 mg Tab) 1 Tablets By Mouth 2 times a day for5 Days. Refills: 0. Comment: MEDICATION LIST PROVIDED [...] to serve you. Thank you for choosing [facility] CampusInterdisciplinary Note - Case Manageron 07-26-2024 Interdisciplinary Note - Case ManagerInterdisciplinary Note - Spinner Operator SW spoke with patient in room. No family in room. Patient is alert and oriented and participates indischarge planning. Patient is , lives alone. There was a consult for domestic concerns. She states she feels safe and has no domestic concerns. She reports that her neighbor Damaso is very helpful. She has a good support system and denominational family. Her son and daughter live in [place]. Dr. Waldrop is following, see notes, saw patient earlier today. Patient was admitted on 07/25/24. Has a consult with Urology. Patient verified PCP, insurance and DME. Patient denied any needs at d/c and is anxious to return home. This patient will have neighbor transport home. Patient white board updated, andSW contact information provided.[facility] Comment on above:Result Comment: Electronically Signed By: Paulette Duarte\.br\Date and Time Signed: 07/26/2409:41 ESTeGFRon 20-74-1266xYTW92 mL/min/1.73 b5Bifvsy>=59[facility] HospitalComment on above:Performed By: #### [id number] ####[facility] [address] [place], [place] [address]OSA w/ Auto Diffon 83-44-2557Vijedwggc/100 WBC (Bld)0.5 % Normal0.0-2.0[facility] HospitalComment on above:Performed By: #### [id number] #### [facility] [address], [place] [address]Hankqevwc/Leukocytes Auto (Bld) [Pure # fraction]0.0 E9/LNormal 0.0-0.2FMarion HospitalComment on above:Performed By: #### [id number] #### [facility] [address], [place] [address]Yvdjkjgfohr (Bld) [#/Vol]0.1 E9/LNormal0.0-0.5FMarion HospitalComment on above:Performed By: #### [id number] #### [facility] [address], [place] [address]Qgrecwyqjft/100 WBC (Bld)0.5 %Normal0.0-8.0[facility] HospitalComment on above:Performed By: #### [id number] #### [facility] [address], [place] [address]Rtgwavqggmc distribution width (RBC) [Ratio]15.3 %High10.9-14.2 [facility] HospitalComment on above:Performed By: #### [id number] #### [facility] [address], [place] [address]Vpgxflanvf (Bld) [Volume fraction]35.8 %Fxgsbo07.0-46.0[facility] HospitalComment on above:Performed By: #### [id number] #### [facility] [address] [place] [address] 98[address]Bqssvrnrsh (Bld) [Mass/Vol]11.9 g/dLLow12.0-16.0[facility] HospitalComment on above:Performed By: #### [id number] #### [facility] [address] [place] [address] 888[address]Jhbzqxycrdl (Bld) [#/Vol]1.1 E9/LNormal1.0-4.0[facility] HospitalComment on above:Performed By: #### [id number] #### [facility] [address] [place] [address] 481[address]Jurcewsbhpl/100 WBC (Bld)11.3 %Low14.0-50.0[facility] HospitalComment on above:Performed By: #### [id number] #### [facility] [address] [place] [address] 22561UHD (RBC) [Entitic mass]29.9 gyLchfkr27.0-34.0[facility] HospitalComment on above:Performed By: #### [id number] #### [facility] [address] [place] [address] 15479WJOB (RBC) [Mass/Vol]33.4 g/wUBvzrfj51.4-36.0[facility] HospitalComment on above:Performed By: #### [id number] #### [facility] [address] [place] [address] 46774GAQ (RBC) [Entitic vol]89.4 mWYapwmu06.0-100.0[facility] HospitalComment on above:Performed By: #### [id number] #### [facility] [address] [place] [address] 129[address]Hkluqobbm (Bld) [#/Vol]0.9 E9/LNormal0.2-1.0[facility] HospitalComment on above:Performed By: #### [id number] #### [facility] [address] [place] [address] 739[address]Skshevyspzm (Bld) [#/Vol]7.9 E9/LHigh2.0-7.5FMarion HospitalComment on above:Performed By: #### [id number] #### [facility] [address], [place] [address]Ougpjwlqaxo/100 WBC (Bld)78.3 %High36.0-75.0[facility] HospitalComment on above:Performed By: #### [id number] #### [facility] [address] [place] [address]59[address]Jyzvxmbi947.0 E9/CYeravh612.0-500.0[facility] Comment on above:Performed By: #### [id number] #### [facility] [address] [place] [address] 616[address]Jusnsgzh mean volume (Bld) [Entitic vol]8.1 fLNormal6.4-10.8 [facility] HospitalComment on above:Performed By: #### [id number] #### [facility] [address] [place] [address] 35520VOJ (Bld) [#/Vol]4.0 E12/LLow4.3-5.9[facility] Comment on above:Performed By: #### [id number] #### [facility] [address] [place] [address] 35880HWJ corrected for nucl RBC Auto (Bld) [#/Vol]10.1 E9/LNormal 4.0-11.0[facility] HospitalComment on above:Performed By: #### [id number] #### [facility] [address] [place] [address] 38324AQRNTDGDPJfbcyqk By: Elisabeth Hoffman on 79-53-7807Frvfksb [Mass/Vol]3.5 g/dLNormal3.3 - 5.0 gm/dLRemisol ChemAlbumin/Globulin [Mass ratio] 1.3 {ratio}Normal1.1 - 2.2Remisol ChemALP [Catalytic activity/Vol]78 [iU]/d Ebmgmv43 - 98 Int._Unit/LRemisol ChemALT No additional P-5'-P [Catalytic activity/Vol]9 [iU]/dNormal6 - 46 Int._Unit/LRemisol ChemAnion gap [Moles/Vol]8 mmol/LNormal6 - 16 mEq/LRemisol ChemAST [Catalytic activity/Vol]14 [iU]/dNormal5 - 43 Int._Unit/LRemisol ChemBilirubin [Mass/Vol]0.6 mg/dLNormal0.0 - 1.1 mg/dL Remisol ChemCalcium [Mass/Vol]8.4 mg/dLLow8.9 - 11.1 mg/dLRemisol ChemChloride [Moles/Vol]110 mmol/HKsuqep681 - 111 mmol/LRemisol ChemCO2 [Moles/Vol]24 mmol/L Lkinrf38 - 31 mmol/LRemisol ChemCreatinine [Mass/Vol]1.8 mg/dLHigh0.5 - 1.3 mg/dLRemisol KdzywDKR98 mL/min/1.73 m2Low>=59mL/min/1.73 o6Lylijvk ChemGlobulin (S) [Mass/Vol]2.8 g/dLNormal1.4 - 4.0 gm/dLRemisol ChemGlucose [Mass/Vol]120 mg/cQQgmgov74 - 199 mg/dLRemisol ChemLactic Acid Lvl0.8 mmol/LNormal0.5 - 2.2 mmol/LRemisol ChemPotassium [Moles/Vol]5.0 mmol/LNormal3.5 - 5.3 mmol/LRemisol ChemProtein [Mass/Vol]6.3 g/dLNormal6.0 - 7.8 gm/dLRemisol ChemSodium [Moles/Vol]137 mmol/EImtiof522 - 145 mmol/LRemisol ChemUrea nitrogen [Mass/Vol] 23 mg/dLHigh5 - 21 mg/dLRemisol ChemUrea nitrogen/Creatinine [Mass ratio]13 mg/vbRyyzxk92 - 20Remisol ChemCMPon 59-06-5320Yzaxito [Mass/Vol]3.5 g/dLNormal 3.3-5.0[facility] HospitalComment on above:Performed By: #### [id number] #### [facility] [address], [place] [address]Bchpywr/Globulin (S) [Mass conc ratio]1.6Kwtbtf7.1-2.2FMarion HospitalComment on above:Performed By: #### [id number] #### [facility] [address], [place] [address]LFM [Catalytic activity/Vol]78 Int._Unit/SXdxoxa05-30AekdvkVan Wert County HospitalComment on above:Performed By: #### [id number] #### [facility] [address], [place] [address]RXT No additional P-5'-P [Catalytic activity/Vol]9 Int._Unit/L Normal6-46[facility] HospitalComment on above:Performed By: #### [id number] #### [facility] [address], [place] [address]Wrwqh gap [Moles/Vol]8 mmol/LNormal6-16[facility] HospitalComment on above:Performed By: #### [id number] #### [facility] [address], [place] [address]LJX [Catalytic activity/Vol]14 Int._Unit/LNormal5-43[facility] HospitalComment on above:Performed By: #### [id number] #### [facility] [address], [place] [address]Pyhxvkkyv [Mass/Vol]0.6 mg/dLNormal0.0-1.1FMarion HospitalComment on above:Performed By: #### [id number] #### [facility] [address], [place] [address]Yrbbtuw [Mass/Vol]8.4 mg/dLLow8.9-11.1FMarion HospitalComment on above:Performed By: #### [id number] #### [facility] [address], [place] [address]Ochbdzpp [Moles/Vol]110 mmol/REbrxhk302-806PxnblcVan Wert County HospitalComment on above:Performed By: #### [id number] #### [facility] [address], [place] [address]SY9 [Moles/Vol]24 mmol/LApfilw38-59DkjionVan Wert County Hospital Comment on above:Performed By: #### [id number] #### [facility] [address], [place] [address]Ipakiqriur [Mass/Vol]1.8 mg/dLHigh0.5-1.3FMarion HospitalComment on above:Performed By: #### [id number] #### [facility] [address], [place] [address]Sygvexlg (S) [Mass/Vol]2.8 g/dLNormal1.4-4.0[facility] HospitalComment on above:Performed By: #### [id number] #### [facility] [address], [place] [address]Icsyhfc [Mass/Vol]120 mg/xQFvyhss40-511ShgwudVan Wert County HospitalComment on above:Performed By: #### [id number] #### [facility] [address], [place] [address]Acyluzzls [Moles/Vol]5.0 mmol/LNormal3.5-5.3FMarion HospitalComment on above:Performed By: #### [id number] #### [facility] [address], [place] [address]Wmgdmgy [Mass/Vol]6.3 g/dLNormal6.0-7.8[facility] HospitalComment on above:Performed By: #### [id number] #### [facility] [address], [place] [address]Fibgez [Moles/Vol]137 mmol/JQxaqro938-786GnfiyyVan Wert County HospitalComment on above:Performed By: #### [id number] #### [facility] [address], [place] [address]Znax nitrogen [Mass/Vol]23 mg/dLHigh5-21[facility] HospitalComment on above:Performed By: #### [id number] #### [facility] [address], [place] [address]Fdsh nitrogen/Creatinine [Mass ratio]13 No WanjeDkbzhu77-83 [facility] HospitalComment on above:Performed By: #### [id number] #### [facility] [address], [place] [address]JFIQTQQFRYPeviicm By: SYSTEM SYSTEM on 00-67-4186Kmgqebhtn/100 WBC (Bld)0.5 %Normal0.0 - 2.0 %Remisol HemeBasophils/Leukocytes Auto (Bld) [Pure # fraction]0.0 E9/LNormal0.0 - 0.2 E9/LRemisol HemeEosinophils (Bld) [#/Vol]0.1 E9/LNormal0.0 - 0.5 E9/LRemisol HemeEosinophils/100 WBC (Bld)0.5 %Normal0.0 - 8.0 %Remisol HemeErythrocyte distribution width (RBC) [Ratio]15.3 %High10.9 - 14.2 %Remisol HemeHematocrit (Bld) [Volume fraction]35.8 %Zfzhys68.0 - 46.0 % Remisol HemeHemoglobin (Bld) [Mass/Vol]11.9 g/dLLow12.0 - 16.0 gm/dLRemisol Heme Lymphocytes (Bld) [#/Vol]1.1 E9/LNormal1.0 - 4.0 E9/LRemisol HemeLymphocytes/100 WBC (Bld)11.3 %Low14.0 - 50.0 %Remisol HemeMCH (RBC) [Entitic mass]29.9 pg Undqam23.0 - 34.0 pgRemisol HemeMCHC (RBC) [Mass/Vol]33.4 g/eVIhxddv21.4 - 36.0 gm/dLRemisol HemeMCV (RBC) [Entitic vol]89.4 wCNstpqe48.0 - 100.0 fLRemisol Heme Monocytes (Bld) [#/Vol]0.9 E9/LNormal0.2 - 1.0 E9/LRemisol HemeMonocytes/100 WBC (Bld)9.4 %Normal4.0 - 14.0 %Remisol HemeNeutrophils (Bld) [#/Vol]7.9 E9/LHigh 2.0 - 7.5 E9/LRemisol HemeNeutrophils/100 WBC (Bld)78.3 %High36.0 - 75.0 % Remisol MhdsPikmodko759.0 E9/IQsnguj458.0 - 500.0 E9/LRemisol HemePlatelet mean volume (Bld) [Entitic vol]8.1 fLNormal6.4 - 10.8 fLRemisol HemeRBC (Bld) [#/Vol] 4.0 E12/LLow4.3 - 5.9 E12/LRemisol HemeWBC corrected for nucl RBC Auto (Bld) [#/Vol]10.1 E9/LNormal4.0 - 11.0 E9/LRemisol HemeLaboratory - Chemistry and Chemistry - challengeon 28-30-0924Mggfbla [Moles/Vol]1.1 mmol/L0.4-2.0Madison HealthLactic Acidon 31-31-4671Avsrvp Acid Lvl0.8 mmol/LNormal 0.5-2.2FMarion HospitalComment on above:Performed By: #### [id number] #### [facility] [address], [place] [address]Fnuyzwg Riccardo 77-16-9439Iypfjkn Lvl.3 mmol/LLow1.0-1.2FMarion HospitalComment on above:Result Comment: 12 hour post dose concentration: 1.0-1.2 mmol/L Minimum effective concentration: 0.6 mmol/L Values >1.5 mmol/L 12 hours after dose indicates a significant risk of intoxication.Performed By: #### [id number] #### [facility] [address], [place] [address]Jdzfqatvw Laboratory TestingOrdered By: SYSTEM SYSTEM on 87-52-3068Ijosmfx Lvl0.3 mmol/LLow1.0 - 1.2 mmol/LRemisol ChemComment on above: Interpretive Data: 12 hour post dose concentration: 1.0-1.2 mmol/L Minimum effective concentration: 0.6 mmol/L Values >1.5 mmol/L 12 hours after dose indicates a significant risk of intoxication.UA with Cult Rflxon 16-66-4793Pwvztiai Auto Ql (U)TraceNormalTrace [facility] HospitalComment on above:Performed By: #### [id number] #### [facility] [address], [place] [address]Pntyptuty Ql (U)NegativeNormalNegativeVan Wert County HospitalComment on above:Performed By: #### [id number] #### [facility] [address], [place] [address]Xrdnxob (U)ClearNormalClearVan Wert County HospitalComment on above:Performed By: #### [id number] #### [facility] [address], [place] [address]Tocdv (U)ColorlessAbnormalYellowVan Wert County Hospital Comment on above:Result Comment: Microscopic readings are only performed on those samples that meet specific criteria set forth by [facility].Performed By: #### [id number] #### [facility] [address], [place] [address]Tuxkpyhiqi cells.squamous Auto (Urine sed) [#/Area]0-2Invalid Interpretation CodeVan Wert County HospitalComment on above:Performed By: #### [id number] #### [facility] [address], [place] [address]Ogmizid Ql (U)NegativeNormalNegMercy Health Willard Hospital Comment on above:Performed By: #### [id number] #### [facility] [address] [place] [address]Iazlvclpsi Auto test strip (U) [Mass/Vol]2+ mg/dLAbnormal NegativeVan Wert County HospitalComment on above:Performed By: #### [id number] #### [facility] [address] [place] [address]Lzkrzwh Auto test strip Ql (U)TraceAbnormalNegativeVan Wert County HospitalComment on above:Performed By: #### [id number] #### [facility] [address] [place] [address]Jxfbbocey esterase Auto test strip Ql (U)NegativeNormalNegative [facility] HospitalComment on above:Performed By: #### [id number] #### [facility] [address] [place] [address]Ftnnl Auto Ql (U)NegativeNormalNegMercy Health Willard HospitalComment on above:Performed By: #### [id number] #### [facility] [address] [place] [address]Siwelin Auto test strip Ql (U)NegativeNormalNegativeVan Wert County HospitalComment on above:Performed By: #### [id number] #### [facility] [address] [place] [address]97[address]iG (U)6.0 [pH]Invalid Interpretation Code5.0-9.0[facility] HospitalComment on above:Performed By: #### [id number] #### [facility] [address] [place] [address]Gscxsld Ql (U)NegativeNormalNegMercy Health Willard Hospital Comment on above:Performed By: #### [id number] #### [facility] [address] [place] [address]XWZ Ql (U)1-85Oxakmunn2-8Aejrok [facility] Shock Trauma CenterComment on above:Performed By: #### [id number] #### [facility] [address] [place] [address]Dynyecko gravity (U) [Rel density]1.006Invalid Interpretation Code1.005-1.030[facility] HospitalComment on above:Performed By: #### [id number] #### [facility] [address], [place] [address]Lmxvwklezwna (U) [Mass/Vol]NegativeNormalNegativeVan Wert County HospitalComment on above:Performed By: #### [id number] #### [facility] [address], [place] [address]KCP Auto (Urine sed) [#/Area]1-6Mbanct0-8Wdxftk [facility] Cow[facility] Shock Trauma CenterComment on above:Performed By: #### [id number] #### [facility] [address] [place] [address]Fgas of Urine collection methodClean CatchNormalVan Wert County HospitalComment on above:Performed By: #### [id number] #### [facility] [address] [place] [address]SGODOBBHJSCmlnhoh By: SYSTEM SYSTEM on 33-96-6154Xdouhkwo Auto Ql (U)Trace /HPFNormalTrace/HPFLAKESIDE [facility] [place] UA Auto SSBilirubin Ql (U)NegativeNormal Negativemg/dLLAKESIDE WOMEN'S [facility] [place] UA Auto SSClarity (U)Clear (07/25/24 10:15 AM)NormalClearFTM UA Auto SSColor (U)Colorless 1 *ABN* (07/25/24 10:15 AM)Invalid Interpretation CodeYellowLAKESIDE WOMEN'S HOSP[facility] [place] UA Auto SSComment on above:Interpretive Data: Microscopic readings are only performed on those samples that meet specific criteria set forth by [facility].Epithelial cells.squamous Auto (Urine sed) [#/Area]0-2 graded/HPF Invalid Interpretation CodeFT UA Auto SSGlucose Ql (U)NegativeNormal Negativemg/dLLAKESIDE W[facility] [place] UA Auto SSHemoglobin Auto test strip (U) [Mass/Vol]2+ mg/dL Invalid Interpretation CodeNegativemg/dLLAKESIDE W[facility] [place] UA Auto SSKetones Auto test strip Ql (U)Trace mg/dLInvalid Interpretation CodeNegativemg/dLLAKESIDE [facility] [place] UA Auto SS Leukocyte esterase Auto test strip Ql (U)NegativeNormalNegativeLeu/uLLAKESIDE [facility] [place] UA Auto SSMucus Auto Ql (U)NegativeNormalNegativegraded/LPFFTMC UA Auto SSNitrite Auto test strip Ql (U)NegativeNormalNegativemg/dLLAKESIDE W[facility] [place] UA Auto SSpH (U)6.0 *NA* (07/25/24 10:15 AM)Invalid Interpretation Code5.0 - 9.0[facility] [place] UA Auto SSProtein Ql (U)NegativeNormalNegativemg/dLLAKESIDE WOMEN'S [facility] [place] UA Auto SSRBC Ql (U)4-20 graded/HPFInvalid Interpretation Code0-3graded/HPFLAKESIDE [facility] [place] UA Auto SSSpecific gravity (U) [Rel density]1.006 *NA* (07/25/24 10:15 AM)Invalid Interpretation Code1.005 - 1.030[facility] Auto SS Urobilinogen (U) [Mass/Vol]NegativeNormalNegativemg/dLLAKESIDE WOM[facility] [place] UA Auto SSWBC Auto (Urine sed) [#/Area]0-5 graded/HPFNormal0-5graded/HPFLAKESIDE [facility] [place] UA Auto SSURINALYSIS Ordered By: Aditya MARIA on 06-01-2882RC Spec DescClean Catch (07/25/24 10:15 AM)NormalLAKESIDE WOMEN'S HOSP[facility] [place] UA Auto SS egFRon 64-20-9377fRMS26 mL/min/1.73 m2Low>=59Fisher [facility] Shock Trauma CenterComment on above:Performed By: #### [id number] #### [facility] [address], [place] [address]Nrfbcunkv Auto (Bld) [#/Vol]on 98-64-0196Swkweymzg (Bld) [#/Vol]Automated basophil count0.0-0.1FSumma Health Akron Campus Basophils/100 WBC Auto (Bld)on 90-03-0078Tjgkbjuus/100 WBC (Bld)Automated basophil %0.2-2.0[facility] HealthEosinophils/100 WBC Auto (Bld) on 35-62-0479Tlytxtgubuu/100 WBC (Bld)Automated eosinophil %Low0.9-7.0[facility] HealthErythrocyte distribution width Auto (RBC) [Ratio]on 14-30-7676Bltyoprnbih distribution width (RBC) [Ratio]Erythrocyte distribution width [Ratio] by Automated count11.0-15.0[facility] Estimated glomerular filtration rate (GFR) non- Americanon 07-24-2024 GFR/1.73 sq M.predicted among non-blacks MDRD (S/P/Bld) [Vol rate/Area]Estimated glomerular filtration rate (GFR) non- AmericanLow>=60 mL/min/1.73m 2 [facility] HealthHematocrit Auto (Bld) [Volume fraction]on 83-33-9989Iwqhizgmbx (Bld) [Volume fraction]Hematocrit [Volume Fraction] of Blood by Automated count36.0-48.0[facility] HealthHemoglobin [Mass/volume] in Bloodon 67-41-3379Magwwesarp (Bld) [Mass/Vol]Hemoglobin [Mass/volume] in Blood12.0-16.0[facility] HealthLaboratory - Chemistry and Chemistry - challengeon 56-19-6558Qdjejvfqw Ql (U)NegativeNEGATIVE [facility] HealthGlucose (U) [Mass/Vol]NegativeNEGATIVEMadison HealthKetones Ql (U)NegativeNEGATIVEMadison HealthpH (U)6.0 [pH]5.0-9.0[facility] Hospitalpecific gravity (U) [Rel density]1.0101.005-1.025Mad[facility] HealthUrobilinogen Qn (U)0.2 {Rachell'U}/dL0.2-1.0[facility] HealthCalcium [Mass/Vol]8.8 mg/dL8.5-10.1FSumma Health Akron CampusChloride [Moles/Vol] 96 mmol/KBhj58-947YalkhcetvMadison HealthCO2 [Moles/Vol]21.6 mmol/L 21.0-32.0[facility] HealthCreatinine [Mass/Vol]4.00 mg/dLHigh 0.55-1.02[facility] HealthGFR/1.73 sq M.predicted MDRD (S/P/Bld) [Vol rate/Area]14 mL/min/{1.73_m2}Low>=60 mL/min/1.73m 2FSumma Health Akron CampusGlucose [Mass/Vol]158 mg/jYXldv24-479KybprmgcdMadison HealthLactate [Moles/Vol]2.2 mmol/LCritically high0.4-2.0[facility] HealthComment on above:RESULTS CALLED TO ER Teresita Banda RN @BY Jerel Mckeon MLT at 1909Potassium [Moles/Vol]4.3 mmol/L3.5-5.1FFirelands Regional Medical Center South Campusodium [Moles/Vol]131 mmol/MZph044-674QwuiiqgxlMadison HealthUrea nitrogen [Mass/Vol]36.0 mg/dLHigh7.0-18.0[facility] HealthUrea nitrogen/Creatinine [Mass ratio]9.0 mg/mgMadison HealthLaboratory - Hematology and Cell countson 36-41-6347Qiyaaged granulocytes/100 WBC (Bld)1.8 %High0.0-0.5FSumma Health Ak[facility] Campus Laboratory - Specimen informationon 17-79-6457Anhpbncsai (U)CLEARCLEARFSumma Health Akron CampusColor (U)LT. YELLOWYELLOWMadison HealthLaboratory - Urinalysison 92-84-2155Owzjeqtte esterase Test strip Ql (U) TRACEAbnormalNEGATIVEMadison HealthMucus Ql (Urine sed)NONE SEENNONE SEENMadison HealthNitrite Ql (U)NegativeNEGATIVE Madison HealthProtein Ql (U)NegativeNEG/TRACEMadison HealthLeukocytes [#/volume] corrected for nucleated erythrocytes in Blood by Automated counon 19-86-9512XII corrected for nucl RBC Auto (Bld) [#/Vol]Leukocytes [#/volume] corrected for nucleated erythrocytes in Blood by Automated counHigh4.0-11.0[facility] HealthLymphocytes Auto (Bld) [#/Vol]on 23-21-0439Ydjahdcfyaq (Bld) [#/Vol]Lymphocytes [#/volume] in Blood by Automated count1.2-3.8[facility] Lymphocytes/100 WBC Auto (Bld)on 93-16-2369Zobrbeupmuc/100 WBC (Bld) Lymphocytes/100 leukocytes in Blood by Automated vewofEuv91.5-60.0TriHealthH Auto (RBC) [Entitic mass]on 59-86-9510PVN (RBC) [Entitic mass]MCH [Entitic mass] by Automated count26.7-34.0[facility] HealthMCHC Auto (RBC) [Mass/Vol]on 64-69-7977YBAR (RBC) [Mass/Vol]MCHC [Mass/volume] by Automated count29.9-35.2FSumma Health Akron CampusMCV Auto (RBC) [Entitic vol]on 31-04-3579ZDO (RBC) [Entitic vol]MCV [Entitic volume] by Automated count81.0-99.0[facility] HealthMonocytes Auto (Bld) [#/Vol]on 03-73-4936Tcjorfxgg (Bld) [#/Vol]Automated blood monocyte countHigh 0.3-0.8[facility] HealthMonocytes/100 WBC Auto (Bld)on 56-10-7498Azrjnledc/100 WBC (Bld)Automated monocyte %1.7-12.0[facility] HealthNeutrophils Auto (Bld) [#/Vol]on 95-80-2972Mxgxboptmwh (Bld) [#/Vol]Neutrophils [#/volume] in Blood by Automated countHigh1.4-6.5FSumma Health Akron CampusNeutrophils/100 WBC Auto (Bld)on 07-24-2024 Neutrophils/100 WBC (Bld)Automated neutrophil %High43.0-75.0[facility] HealthNo Panel Informationon 74-83-3701Bdpvp BacteriaTRACE #/HPFAbnormal NONE [facility] HospitalUrine Culture ReflexedNOMadison HealthUrine Microscopic ReviewYEOhioHealthUrine Occult BloodLARGEAbnormalNEGATIVEMadison Health Urine Other CastsNONE SEEN #/LPFNONE Grant HospitalUrine Other CrystalsNone Seen #/HPFNone SeenMadison HealthUrine RBC 20-50 #/HPFAbnormal0-2FSumma Health Akron CampusUrine Squamous Epithelial CellsRARE #/LPFNONE/RAREMadison HealthUrine WBC0-2 #/HPF AbnormalNONE SEENMadison HealthEosinophils # (Auto)0.1 10 3/uL0.0-0.7FSumma Health Akron CampusImmature Granulocyte # (Auto)0.26 10 3/uLHigh0.00-0.03[facility] HealthPlatelet mean volume Auto (Bld) [Entitic vol]on 06-28-6865Uibaqjek mean volume (Bld) [Entitic vol]Platelet mean volume [Entitic volume] in Blood by Automated count9.5-13.5FSumma Health Akron CampusPlatelets Auto (Bld) [#/Vol]on 87-30-2342Flwoohjnk (Bld) [#/Vol]Platelets [#/volume] in Blood by Automated irizo884-126MxewrbcycMadison HealthRBC Auto (Bld) [#/Vol]on 83-81-6390HAO (Bld) [#/Vol]Erythrocytes [#/volume] in Blood by Automated count4.20-5.40[facility] Serum or plasma anion gap determinationon 38-50-2571Itplj gap [Moles/Vol]Serum or plasma anion gap determinationMadison HealthMain OR Intraoperative Recordon 28-36-8194Dadc OR Intraoperative RecordMain OR Intraoperative Record IntraOp Document Type FT Summary Primary Physician: HAMILTON MALONE MD Finalized Date/Time: 07/23/24 09:40:12 Pt. Name: RAIN SWEENEY/Sex: 1960 Female Med Rec #: [id number] Physician: HAMILTON MALONE MD Financial #: [id number] Pt. Type: A Room/Bed: [place] [address] Admit/Disch: 07/22/24 05:26:39 - 07/22/24 12:30:16 Institution: [...] MD, Yuan TERRAZAS, Scooby VILLASENOR Role Performed CRIME DATA SPECIALIST Surgeon - Primary POT OPERATOR/SA Time In 07/22/24 07:38:00 07/22/24 07:38:00 07/22/24 07:38:00 Time Out 07/22/24 09:07:00 07/22/24 09:01:00 07/22/24 09:07:00 Procedure TVT SLING(.) TVT SLING(.) TVT SLING(.) Comments DR. BALLESTEROS TECHNICAL LABORATORY ASST ASSIST Last Modified By: Terri Glynn Ii, Alfons Ii F Letrondo, Alfons Ii F 07/22/24 09:12:19 07/22/24 09:12:19 07/22/24 09:12:19 Entry 4 Entry 5 Entry 6 Case Attendee Jared DE LA ROSA, Becky Deng, Terri Danielle Ii Role Performed Scrub - Primary Staff - Other Pressure Dispatcher - Primary Time In 07/22/24 07:38:00 07/22/24 [...] ACE MCGOVERN STUDENT IS IN ATTENDANCE. /PINEDA OROPEZAinsurance sales manager Protocols FT Pre-Care Text: Implements protective [...] Yes Primary Surgeon GABBY RAMIREZ, HAMILTON Start 07/22/24 08:00:00 Stop 07/22/24 09:02:00 Anesthesia [...] and symptoms of physical (more content not included)...[facility] CampusDiscape [facility] Instructionson 30-65-2256Ulvbvkeqg Instructions Discharge Instructions RAIN SWEENEY :1960 Visit [...] Comments: 2 weeks Where: [address] [place] [address]- [phone] Business (1) Medications What How Much When Instructions Next Dose New docusate (Colace 50 mg oral capsule) 1 Capsules By Mouth 2 times a day as needed for for constipation Pickup at [facility]acy #6177 New oxycodone (Roxicodone 5 mg Tab) 1 Tablets By Mouth Every 6 hours as needed for for pain Pickup at [facility]/pharmacy #6177 Changed venlafaxine 225 Milligram By Mouth [...] Once a day (at bedtime) Pharmacy Information [facility]/pharmacy #[id number]: [address], [place] [phone] Test Results No qualifying data available. Allergies [...] Other SUPRAPUBIC MID-URETHRAL SLING 07/22/2024 Education Materials [place], [place] Ambrose Dorantes M.D. TVT DISCHARGE INSTRUCTIONS [...] return to your normal diet 24-36 hours aftersurgery. 4. For the next 24 hours you should not consume alcohol, attempt to drive, use any power tools, sign important documents or make personal or business decisions. After that do so only if you feel perfectly normal and alert. 5. Follow carefully any verbal or written instructions your surgeon may have given you. Surgeon???s Phone number: [phone] Surgeon???s Written Instructions: 1. During the daytime hours empty (more content not included)...[facility] CampusComment on above:Result Comment: Electronically Signed By: Stephanie Pressley RN\.br\Date and Time Signed: 07/22/24 09:47 ESTInpatient Patient Summaryon 38-25-7911Dssjwrhyt Patient SummaryInpatient Patient Summary [address] [address] [facility] Clinical Discharge Instructions PERSON INFORMATION Name: RAIN SWEENEY PHYSICIANS Admitting Physician: HAMILTON MALONE MD Attending Physician: HAMILTON MALONE MD PCP: SEB BARRY MD Discharge Diagnosis: Comment: PATIENT EDUCATION INFORMATION Instructions: Jose E - TVT Discharge Instructions(CUSTOM); Post Op Patient Instructions - FT (CUSTOM) Medication Leaflets: Follow up: With: Address: When: HAMILTON MALONE [address] [place] [phone] Business (1) Comments: 2 weeks MEDICATION LIST New Medications [id number], [address], [place] [phone], [phone] docusate (Colace 50 mg oral capsule) 1 Capsules By Mouth 2 times a day as needed for constipation. Refills: 0. oxycodone (Roxicodone 5 mg Tab) 1 Tablets By Mouth every 6 hours as needed for pain. Refills: 0. sulfamethoxazole-trimethoprim (Bactrim D.S. 800 mg-160 mg Tab) 1 Tablets By Mouth 2 times a day for5 Days. Refills: 0. Medications to Continue Taking [...] Application Topical once a day (at bedtime). Comment:[facility] CampusMain OR PACU I Recordon 29-71-1745Fhfa OR PACU I RecordMain OR PACU I Record PACU Phase I Document Type FT Summary Primary Physician: HAMILTON MALONE MD Finalized Date/Time: 07/22/24 11:31:23 Pt. Name: RAIN SWEENEY/Sex: 1960 Female Med Rec #: [id number] Physician: HAMILTON MALONE MD Financial #: [id number] Pt. Type: A Room/Bed: [facility]/ Admit/Disch: 07/22/24 05:26:39 - Institution: Case Times [...] individualized perioperative plan of care The patient's rightto privacy is maintained The patient's value system, [...] with or improved from baseline levels established preoperativelyThe patient's cardiovascular status is consistent with or improved from baseline levels established preoperatively The patient's cardiovascular status is consistent with or improved from baseline levels established preoperatively The patient demonstrates and/or reports adequate pain control throughout the perioperative period The patient received appropriate medication(s), safely administered during the perioperativeperiod Acuity Level PACU I FT Entry 1 Start Time 07/22/24 09:08:00 Stop Time 07/22/24 10:08:00 Acuity Level Acuity Level I Last Modified By: Teresita Chapman RN 07/22/24 11:31:21 Finalized By: Teresita Chapman RN Document Signatures Signed By: Teresita Chapman RN 07/22/24 11:31[facility] CampusMain OR PACU II Recordon [id number] OR PACU II RecordMain OR PACU II Record PACU Phase II Document Type FT Summary Primary Physician: HAMILTON MALONE MD Finalized Date/Time: 07/22/24 12:32:48 Pt. Name: RAIN SWEENEY Hiwot/Sex: 1960 Female Med Rec #: [id number] Physician: HAMILTON MALONE MD Financial #: [id number] Pt. Type: A Room/Bed: [place] [address] Admit/Disch: 07/22/24 05:26:39 - Institution: Case Times [...] and monitors body temperature Evaluates postoperative respiratory statusEvaluates postoperative cardiac status Evaluates postoperative neurological status [...] individualized perioperative plan of care The patient's rightto privacy is maintained The patient's value system, [...] with or improved from baseline levels established preoperativelyThe patient's cardiovascular status is consistent with or improved from baseline levels established preoperatively The patient's neurological status is consistent with or improved from baseline levels established preoperatively The patient demonstrates and/or reports adequate pain control throughout the perioperative period The patient received appropriate medication(s), safely administered during the perioperativeperiod Finalized By: Val Scales Document Signatures Signed By: Val Scales 07/22/24 12:32NoTriHealthMain OR Preoperative Recordon [id number] OR Preoperative RecordMain OR Preoperative Record PreOp Document Type FT Summary Primary Physician: HAMILTON MALONE MD Finalized Date/Time: 07/22/24 08:03:39 Pt. Name: RAIN SWEENEY /Sex: 1960 Female Med Rec #: [id number] Physician: HAMILTON MALONE MD Financial #: [id number] Pt. Type: Room/Bed: [place] [address] Admit/Disch: 07/22/24 05:26:39 - Institution: Case Times [...] Signatures Signed By: Terri Glynn Ii 07/22/24 08:03[facility] CampusOperative Reporton [id number] ReportOperative Report Patient: RAIN SWEENEY Age: 64 years [...] A 2 cm vertical incision was made inthe anterior vaginal mucosa overlying the mid urethra. The submucosal tissue was dissected in posterolateral directions bilaterally such that an index finger could be placed posterior to the inferiorpubic ramus bilaterally. The left-sided trocar was passed through the left retropubic skin incisionand was guided along the posterior aspect of the pubic tubercle as could be palpated through the trocar. It was guided into the vaginal incision using an index finger as a guide. The right-sided trocar was passed in an identical manner through the right retropubic skin incision and was guided alongthe posterior aspect of the right pubic tubercle. It was guided into the vaginal incision with an index finger. The anterior sulci were examined very carefully to ensure that they had not been damaged by passage of the trocar, and they were found to be intact. The Lyn catheter was removed in preparation for cystoscopy. The 17 Greek cystoscope with the [address] was passed per urethra into the bladder and panendoscopy demonstrated an absence of mucosal defects within the bladder, the bladder neck, andthe urethra. The ureteral orifices are in normal [...] side of the sling was threaded through theeyelet of the right-sided trocar which was also removed, thereby positioning the right side of the sling. The sling was tightened over the level of the mid urethra using a hemostat as a spacer. The ex cess sling material was excised from each retropubic skin incision and these incisions were closed using Exofin. Of note, the incisions and the sling were irrigated copiously throughout the procedurewith antibiotic solution containing both bacitracin and gentamicin. The vaginal incision was closedin 2 layers. The submucosa was closed with [...] given a prescription for Cipro and for [place]. The patient will follow up in the office in 2 weeks. [facility] CampusComment on above:Result Comment: Electronically Signed By: HAMILTON MALONE MD\.br\Date and Time Signed: 07/22/24 10:26 ESTOutpatient Surgery Discharge Instructionon [id number] Surgery Discharge InstructionOutpatient Surgery Discharge Instruction [place] [id number] Patient Discharge Instructions PERSON INFORMATION Name: RAIN [...] received the attached patient education materials/instructions and haveverbalized understanding: May we do a follow up call? Yes No I was present when discharge instructions were given Patient Signature Date Clinican/Nurse Signature Date Follow up: With: Address: When: HAMILTON MAHARAJELLIOT [address] [place] [phone] Business (1) Comments: 2 weeks Pharmacy Information: You may receive a survey from [employer] asking you to rate your care experience. Your feedback is important and will help us understand what we do well and how we can improve the quality of care we provide to you, your loved ones and our community. It???s an honor to serve you. Thank you for choosing [facility] HERE ARE THE MEDICATION CHANGES THAT OCCURRED DURING YOUR HOSPITAL STAY New Medications [id number], [address], [place] [phone], [phone] docusate (Colace 50 mg oral capsule) 1 Capsules By Mouth 2 times a day as needed for constipation. Refills: 0. oxycodone (Roxicodone 5 mg Tab) 1 Tablets By Mouth every 6 hours as needed for pain. Refills: 0. sulfamethoxazole-trimethoprim (Bactrim D.S. 800 mg-160 mg Tab) 1 Tablets By Mouth 2 times a day for5 Days. Refills: 0. Medications to Continue Taking [...] day (at bedtime). PATIENT EDUCATION INFORMATION Instructions: [place], [place] Ambrose Dorantes M.D. TVT DISCHARGE INSTRUCTIONS [...] may have given you. Surgeon???s Phone number: [phone] Surgeon???s Written Instructions: 1. During the daytime hours empty your leg bag every 3-4 hours. 2. No lifting over 10 pounds for 6 weeks. 3. There is no restriction regarding use of stairs. 4. You may drive (more content not included)...[facility] Ambulatory Visit Summaryon [id number] Visit SummaryAmbulatory Visit Summary RAIN SWEENEY :1960 Visit Date:07/05/2024 [...] Follow-Up Appointments Friday 10:00 AM EST Where: [facility] 2023 8:00 AM EST Where: [facility] You Need to [...] 1 Tablets By Mouth Every day Contact prescribingphysician if questions or concerns Unchanged tretinoin topical [...] including vitamins, herbs, eye drops, creams, and qvtc-yfn-mhzjqpj medicines. ??? Any problems you or family [...] meals or foods, such (more content not included)...[facility] 07-05-2024 RemindersReminders From: Dorothy Castro To: SERENA Maharaj; Sent: 07/05/2024 10:04:30 EST Show up: 08/04/2024 10:04:00 EST Subject: Cysto Due Date/Time: 08/04/2024 10:04:00 EST Reminder Message Cysto in 3 mos.[facility] CampusUrology Office/Clinic Noteon [id number] Office/Clinic NoteUrology Office/Clinic Note Chief Complaint follow up HPI [...] with voice recognition artificial intelligence software, specifically mysportgroup, Wannyi and or Tinselvision. Substitutions may have occurred due to the [...] active chronic inflammation, compatible with rendered diagnosis. 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 Noinvasive or high grade disease is identified. No [...] Cystoscopy with bladder b (more content not included)...[facility] CampusComment on above:Result Comment: Electronically Signed By: HAMILTON MALONE MD\.br\Date and Time Signed: 07/05/24 10:33 EST\.br\Electronically Co-Signed By: Dorothy Castro\.br\Date and Time Co- Signed: 07/05/24 10:14 ESTSurgical Pathology Reporton [id number] Pathology ReportMain Campus Medical Center [address] [place] [address]- Surgical Pathology Report Collected Date/Time: 06/24/2024 08:47 [...] No muscularis propria is present. (Electronic Signature) aLurel Buckner MD PhD 07/01/2024 12:33 Clinical Information [...] is entirely submitted in one cassette. (DC) DC:[facility] Microscopic Description Microscopic examination performed unless gross only specified. The use of one or more reagents in the above tests is regulated as an analyte specific reagent (ASR). The test or tests are ordered following initial H&E microscopic examination. The performance characteristics were determined by the Laboratory of [facility]. They have not been cleared [...] recognition technology and might contain unintended computerized supervisor hand workers errors.NormalVan Wert County HospitalComment on above:Performed By: #### [id number] #### [facility] [address] [address]Nuorpxubd By: #### [id number] ####[facility] [address]NAltoona, [place] [address]Sieo OR Intraoperative Recordon [id number] OR Intraoperative RecordMain OR Intraoperative Record IntraOp Document Type FT Summary Primary Physician: HAMILTON MALONE MD Finalized Date/Time: 06/25/24 10:12:31 Pt. Name: RAIN SWEENEY LEYDA Mi/Sex: 1960 Female Med Rec #: [id number] Physician: HAMILTON MALONE MD Financial #: [id number] Pt. Type: A Room/Bed: [place] [address] Admit/Disch: 06/24/24 06:38:13 - 06/24/24 10:15:00 Institution: [...] Cooney Role Performed Anesthesiologist Surgeon - Primary Pressure Dispatcher - Primary Event Planner Time In 06/24/24 08:25:00 06/24/24 08:32:00 06/24/24 08:25:00 Time Out 06/24/24 08:46:00 06/24/24 08:39:00 06/24/24 08:46:00 Procedure CYSTOSCOPY TURB(.) CYSTOSCOPY TURB(.) CYSTOSCOPY TURB(.) Comments DR. AGUILAR SUPERVISING Last Modified By: Flash SUNG, Amina Clark RN, RN, Leann E 06/24/24 08:57:51 06/24/24 08:57:51 06/24/24 08:57:51 Entry 4 Entry 5 Entry 6 Case Attendee Flash SUNG, Gertrude Stallworth Terry T Role Performed Pressure Dispatcher - Primary Scrub - Primary Staff - [...] MD, Mey VILLASENOR RN, Flash Estrada RN, Leann E, Dellinger, Sydney A Time Out Complete 06/24/24 [...] and tissue Entry 1 Skin Integrity Intact, [place], Warm, & Skin Abnormality No Dry Outcomes Met? Yes Last Modified By: Amina Vidales RN 06/24/24 08:52:26 Post-Care Text: The patient is free from signs and symptoms of injury caused by extraneous objects Patient Positioning FT Pre-Care Text: Identifies physical alterations that require additional preca (more content not included)...[facility] CampusDischarge Instructionson 06-24-2024 Discharge InstructionsDischarge Instructions TESFAYERAIN OTERO :1960 Visit Date:06/24/2024 Inpatient Discharge Instructions Your [...] in 2 weeks Where: [address] [place] [address]- [phone] Business (1) Medications What How Much When Instructions Next Dose New phenazopyridine (Pyridium 100 mg Tab) 1 Tablets By Mouth 3 times a day Duration: 3 Days Pickup at [facility]/pharmacy #[id number] Unchanged lithium (lithium 300 mg oral tablet) 3 Tablets By Mouth At bedtime Unchanged omeprazole (omeprazole 20 mg Cap-DR) 1 Capsules By Mouth Every day Unchanged oxcarbazepine (oxcarbazepine 300 mg Tab) 1 Tablets By Mouth Every day Unchanged tretinoin topical (tretinoin Top 0.1% Crm) 1 Application Topical Once a day (at bedtime) Unchanged venlafaxine as directed Pharmacy Information [facility]/pharmacy #[id number]: [address] [place], [place] [phone] Education Materials Cystoscopy ??? Voiding after the [...] completing your survey. Thank you for choosing [facility]. Veto Award Nomination The VETO (Diseases Attacking the Immune SYstem) Award is an international recognition program thathonors and celebrates the skillful, compassionate care nurses [...] signed up for this yet, please contact [employer] at [phone] to get signed up today. Patient (more content not included)...[facility] CampusComment on above:Result Comment: Electronically Signed By: Chayo SUNG, Reed Sanders.marian\Date and Time Signed: 06/24/24 08:53 ESTInpatient Patient Summaryon [id number] Patient SummaryInpatient Patient Summary [place] [id number] [facility] Clinical Discharge Instructions PERSON INFORMATION [...] a day (at bedtime). venlafaxine as directed. Comment:[facility] CampusMain OR PACU I Recordon [id number] OR PACU I RecordMain OR PACU I Record PACU Phase I Document Type FT Summary Primary Physician: HAMILTON MALONE MD Finalized Date/Time: 06/24/24 09:24:28 Pt. Name: RAIN SWEENEY LEYDA Mi/Sex: 1960 Female Med Rec #: [id number] Physician: HAMILTON MALONE MD Financial #: [id number] Pt. Type: A Room/Bed: [facility]/ Admit/Disch: 06/24/24 06:38:13 - Institution: Case Times [...] individualized perioperative plan of care The patient's rightto privacy is maintained The patient's value system, [...] with or improved from baseline levels established preoperativelyThe patient's cardiovascular status is consistent with or improved from baseline levels established preoperatively The patient's cardiovascular status is consistent with or improved from baseline levels established preoperatively The patient demonstrates and/or reports adequate pain control throughout the perioperative period The patient received appropriate medication(s), safely administered during the perioperativeperiod Acuity Level PACU I FT Entry 1 Start Time 06/24/24 08:48:00 Stop Time 06/24/24 09:18:00 Acuity Level Acuity Level I Last Modified By: Carli Good RN 06/24/24 09:24:23 Finalized By: Carli Good RN Document Signatures Signed By: Carli Good RN 06/24/24 09:24[facility] CampusMain OR PACU II Recordon [id number] OR PACU II RecordMain OR PACU II Record PACU Phase II Document Type FT Summary Primary Physician: HAMILTON MALONE MD Finalized Date/Time: 06/24/24 10:19:29 Pt. Name: RAIN SWEENEY Hiwot/Sex: 1960 Female Med Rec #: [id number] Physician: HAMILTON MALONE MD Financial #: [id number] Pt. Type: A Room/Bed: [place] [address] Admit/Disch: 06/24/24 06:38:13 - Institution: Case Times [...] and monitors body temperature Evaluates postoperative respiratory statusEvaluates postoperative cardiac status Evaluates postoperative neurological status [...] individualized perioperative plan of care The patient's rightto privacy is maintained The patient's value system, [...] with or improved from baseline levels established preoperativelyThe patient's cardiovascular status is consistent with or improved from baseline levels established preoperatively The patient's neurological status is consistent with or improved from baseline levels established preoperatively The patient demonstrates and/or reports adequate pain control throughout the perioperative period The patient received appropriate medication(s), safely administered during the perioperativeperiod Finalized By: Reed Domingo RN Document Signatures Signed By: Reed Domingo RN 06/24/24 10:19[facility] CampusMain OR Preoperative Recordon [id number] OR Preoperative RecordMain OR Preoperative Record PreOp Document Type FT Summary Primary Physician: HAMILTON MALONE MD Finalized Date/Time: 06/24/24 08:58:11 Pt. Name: RAIN SWEENEY /Sex: 1960 Female Med Rec #: [id number] Physician: HAMILTON MALONE MD Financial #: [id number] Pt. Type: A Room/Bed: [place] [address] Admit/Disch: 06/24/24 06:38:13 - Institution: Case Times [...] Signatures Signed By: Amina Vidales RN 06/24/24 08:58[facility] CampusOperative Report on [id number] ReportOperative Report Patient: RAIN SWEENEY Age: 63 years [...] she was booked for the aforementioned procedure. H&Pwas reviewed, informed consent was obtained, patient understood risk, benefits, alternatives of theprocedure and wished to proceed. OPERATIVE DETAIL: Patient was brought to the operative suite and placed on continuous pulse oximetry and cardiac monitoring by anesthesia. IV antibiotics including 2 g of Ancef was administered. She was then placed inthe dorsolithotomy position and prepped and draped in normal sterile fashion. Timeout was performedconfirming patient, procedure, side, all in the room agreed. A well-lubricated 22 Greek cystoscopic sheath with a 30 degree lens was inserted into the urethral meatus and advanced into the bladder. Upon entering the bladder we did a cystoscopy and findings as noted above. We then obtained the coldcup biopsy forcep and grasped the posterior frondular [...] me in 2 weeks discuss pathology, next stepsFirelands Regional Medical Center South CampusComment on above:Result Comment: Electronically Signed By: GABBY RAMIREZ, HAMILTON\.marian\Date and Time Signed: 06/24/24 08:47 EST Outpatient Surgery Discharge Instructionon 10-84-5030Yogsasjwrm Surgery Discharge InstructionOutpatient Surgery Discharge Instruction [place] [id number] Patient Discharge Instructions PERSON INFORMATION Name: RAIN [...] received the attached patient education materials/instructions and haveverbalized understanding: May we do a follow up [...] to serve you. Thank you for choosing [facility] HERE ARE THE MEDICATION CHANGES THAT OCCURRED [...] as directed. PATIENT EDUCATION INFORMATION Instructions: Medication Leaflets:[facility] CampusXR Chest 2 Viewson [id number] Chest 2 ViewsExam Date/Time: 06/18/2024 16:08 EST Reason for Exam: [...] TOBIN Technologist: ZARINA Technical Comments Radiation Dose: osnam Rothman in mGy = . DAP = .[facility] South CampusBMPon 87-71-1489Jywos gap [Moles/Vol]11 mmol/LNormal6-16[facility] HospitalComment on above:Performed By: #### [id number] #### [facility] [address], [place] [address]Gnkvtrc [Mass/Vol]8.7 mg/dLLow8.9-11.1[facility] Trauma CenterComment on above:Performed By: #### [id number] #### [facility] [address], [place] [address]Isnlifli [Moles/Vol]105 mmol/UCkubar578-109PpajtrVan Wert County HospitalComment on above:Performed By: #### [id number] #### [facility] [address], [place] [address]GT0 [Moles/Vol]26 mmol/EFsaell74-33GiftngVan Wert County Hospital Comment on above:Performed By: #### [id number] #### [facility] [address], [place] [address]Nuihzgpixe [Mass/Vol]1.0 mg/dLNormal0.5-1.3FMarion HospitalComment on above:Performed By: #### [id number] #### [facility] [address], [place] [address]Uxfemjz [Mass/Vol]89 mg/sTXcbszj81-614LvrnogVan Wert County HospitalComment on above:Performed By: #### [id number] #### [facility] [address] [place] [address]Hmzyjgycn [Moles/Vol]4.0 mmol/LNormal3.5-5.3FMarion HospitalComment on above:Performed By: #### [id number] #### [facility] [address], [place] [address]Silumh [Moles/Vol]138 mmol/MKnjxtn842-750UfkhdoVan Wert County HospitalComment on above:Performed By: #### [id number] #### [facility] [address] [place] [address]Phxv nitrogen [Mass/Vol]18 mg/dLNormal5-21[facility] HospitalComment on above:Performed By: #### [id number] #### [facility] [address], [place] [address]Ivtf nitrogen/Creatinine [Mass ratio]18 No IkzzdIhbqaw56-38 [facility] HospitalComment on above:Performed By: #### [id number] #### [facility] [address] [place] [address]BGB w/ Auto Diffon 86-96-1185Tybvfjbxc/100 WBC (Bld)0.9 %Normal 0.0-2.0[facility] HospitalComment on above:Performed By: #### [id number] #### [facility] [address] [place] [address]Rflhunyap/Leukocytes Auto (Bld) [Pure # fraction]0.1 E9/LNormal 0.0-0.2FMarion HospitalComment on above:Performed By: #### [id number] #### [facility] [address] [place] [address]Oblbbbyduaj (Bld) [#/Vol]0.3 E9/LNormal0.0-0.5FMarion HospitalComment on above:Performed By: #### [id number] #### [facility] [address] [place] [address]Nckijudwhcq/100 WBC (Bld)4.5 %Normal0.0-8.0[facility] HospitalComment on above:Performed By: #### [id number] #### [facility] [address] [place] [address]Iyrlbahldis distribution width (RBC) [Ratio]15.1 %High10.9-14.2 [facility] HospitalComment on above:Performed By: #### [id number] #### [facility] [address] [place] [address]Euinezgzaf (Bld) [Volume fraction]46.2 %High34.0-46.0[facility] HospitalComment on above:Performed By: #### [id number] #### [facility] [address] [place] [address]Ygfdhmnfah (Bld) [Mass/Vol]15.4 g/cWYxaguj92.0-16.0[facility] HospitalComment on above:Performed By: #### [id number] #### [facility] [address] [place] [address]Hzvzpccslnb (Bld) [#/Vol]2.2 E9/LNormal1.0-4.0[facility] HospitalComment on above:Performed By: #### [id number] #### [facility] [address] [place] [address] [place] [address]Usgaswtrtfy/100 WBC (Bld)28.8 %Excjwp03.0-50.0[facility] HospitalComment on above:Performed By: #### [id number] #### [facility] [address] [place] [address]CXA (RBC) [Entitic mass]29.8 zhEdiodd53.0-34.0[facility] HospitalComment on above:Performed By: #### [id number] #### [facility] [address] [place] [address]CYHO (RBC) [Mass/Vol]33.2 g/aWArrcjo21.4-36.0[facility] HospitalComment on above:Performed By: #### [id number] #### [facility] [address] [place] [address] 47[address]XNT (RBC) [Entitic vol]89.5 zSTfwxlq12.0-100.0[facility] HospitalComment on above:Performed By: #### [id number] #### [facility] [address] [place] [address]Vnoidkxrl (Bld) [#/Vol]0.7 E9/LNormal0.2-1.0[facility] HospitalComment on above:Performed By: #### [id number] #### [facility] [address] [place] [address]Giuhhzwawac (Bld) [#/Vol]4.3 E9/LNormal2.0-7.5FMarion HospitalComment on above:Performed By: #### [id number] #### [facility] [address] [place] [address] 90[address]Txzqwssrbbg/100 WBC (Bld)56.9 %Zspire90.0-75.0[facility] HospitalComment on above:Performed By: #### [id number] #### [facility] [address] [place] [address]Fvkaoeck mean volume (Bld) [Entitic vol]8.4 fLNormal6.4-10.8 [facility] HospitalComment on above:Performed By: #### [id number] #### [facility] [address], [place] [address]Dpfflvxoa (Bld) [#/Vol]265.0 E9/YGotrcz550.0-500.0[facility] HospitalComment on above:Performed By: #### [id number] #### [facility] [address] [place] [address] 527[address]AST (Bld) [#/Vol]5.2 E12/LNormal4.3-5.9[facility] HospitalComment on above:Performed By: #### [id number] #### [facility] [address] [place] [address]AQJ corrected for nucl RBC Auto (Bld) [#/Vol]7.5 E9/LNormal 4.0-11.0[facility] HospitalComment on above:Performed By: #### [id number] #### [facility] [address] [place] [address]CIZEXLJSBLpiamuj By: SYSTEM SYSTEM on 50-22-3146Nkrgu gap [Moles/Vol]11 mmol/LNormal6 - 16 mEq/LRemisol ChemCalcium [Mass/Vol]8.7 mg/dLLow 8.9 - 11.1 mg/dLRemisol ChemChloride [Moles/Vol]105 mmol/XDvjukf891 - 111 mmol/L Remisol ChemCO2 [Moles/Vol]26 mmol/HPsvdjc76 - 31 mmol/LRemisol ChemCreatinine [Mass/Vol]1.0 mg/dLNormal0.5 - 1.3 mg/dLRemisol StybbHZQ09 mL/min/1.73 w0Nxsvnq >=59mL/min/1.73 z2Siklkmx ChemGlucose [Mass/Vol]89 mg/jVWatojh25 - 199 mg/dL Remisol ChemPotassium [Moles/Vol]4.0 mmol/LNormal3.5 - 5.3 mmol/LRemisol Chem Sodium [Moles/Vol]138 mmol/HUhxajw851 - 145 mmol/LRemisol ChemUrea nitrogen [Mass/Vol]18 mg/dLNormal5 - 21 mg/dLRemisol ChemUrea nitrogen/Creatinine [Mass ratio]18 mg/bbGlmhga92 - 20Remisol ChemCOAGULATIONOrdered By: Layla Ace on 28-62-6183dDMZ Coag (PPP) [Time]30.9 hPofbjw78.1 - 36.5 second(s)[facility] Auto Coag Comment on above:Interpretive Data: Parameter 15 days - 4 weeks 1 - [...] the same coagulation reagent and instrumentation as [facility]. Currently there are no coagulation studies available worldwide for children to 14 days, andno normal ranges. Heparin therapeutic range (represented by Anti-Factor Xa activity of 0.2 - 0.4 U/mL) corresponds to PTT of 56.6 - 109.0 sec.INR Coag (PPP) [Relative time]1.02 {INR}Invalid Interpretation CodeLAKESIDE WOMEN'S [facility] [place] Auto CoagComment on above:Interpretive Data: INR results are specifically intended to assess patients stabilized on long-term Anticoagulation therapy suggested INR s Less Intensive Anticoagulation 2.0 3.0 Conventional Range 3.0 4.5PT Coag (PPP) [Time]11.4 sNormal9.4 - 12.5 second(s) [facility] [place] Auto CoagComment on above:Interpretive Data: 15 days - 4 weeks 1 - [...] the same coagulation reagent and instrumentation as [facility]. Currently there are no coagulation studies available worldwide for children to 14 days, andno normal ranges.HEMATOLOGYOrdered By: SYSTEM SYSTEM on 26-82-4144Uzormzhsp/100 WBC (Bld)0.9 %Normal0.0 - 2.0 %Remisol HemeBasophils/Leukocytes Auto (Bld) [Pure # fraction]0.1 E9/LNormal0.0 - 0.2 E9/LRemisol HemeEosinophils (Bld) [#/Vol]0.3 E9/LNormal0.0 - 0.5 E9/LRemisol HemeEosinophils/100 WBC (Bld)4.5 %Normal0.0 - 8.0 %Remisol HemeErythrocyte distribution width (RBC) [Ratio]15.1 %High10.9 - 14.2 %Remisol HemeHematocrit (Bld) [Volume fraction]46.2 %High34.0 - 46.0 % Remisol HemeHemoglobin (Bld) [Mass/Vol]15.4 g/yVPwjscd96.0 - 16.0 gm/dLRemisol HemeLymphocytes (Bld) [#/Vol]2.2 E9/LNormal1.0 - 4.0 E9/LRemisol Heme Lymphocytes/100 WBC (Bld)28.8 %Mvwvrk50.0 - 50.0 %Remisol HemeMCH (RBC) [Entitic mass]29.8 arDajjys64.0 - 34.0 pgRemisol HemeMCHC (RBC) [Mass/Vol]33.2 g/dL Gpzbfo67.4 - 36.0 gm/dLRemisol HemeMCV (RBC) [Entitic vol]89.5 fSIgltxv53.0 - 100.0 fLRemisol HemeMonocytes (Bld) [#/Vol]0.7 E9/LNormal0.2 - 1.0 E9/LRemisol HemeMonocytes/100 WBC (Bld)8.9 %Normal4.0 - 14.0 %Remisol HemeNeutrophils (Bld) [#/Vol]4.3 E9/LNormal2.0 - 7.5 E9/LRemisol HemeNeutrophils/100 WBC (Bld)56.9 % Vrdnzf77.0 - 75.0 %Remisol HemePlatelet mean volume (Bld) [Entitic vol]8.4 fL Normal6.4 - 10.8 fLRemisol HemePlatelets (Bld) [#/Vol]265.0 E9/JDzhecg038.0 - 500.0 E9/LRemisol HemeRBC (Bld) [#/Vol]5.2 E12/LNormal4.3 - 5.9 E12/LRemisol HemeWBC corrected for nucl RBC Auto (Bld) [#/Vol]7.5 E9/LNormal4.0 - 11.0 E9/L Remisol HemePT & PTTon 20-11-7326mFGN Coag (PPP) [Time]30.9 second(s)Normal 25.1-36.5Fisher [facility] Shock Trauma CenterComment on above:Result Comment: Parameter 15 days - 4 weeks 1 - [...] the same coagulation reagent and instrumentation as [facility]. Currently there are no coagulation studies available worldwide for children to 14 days, andno normal ranges. Heparin therapeutic range (represented by Anti-Factor Xa activity of 0.2 - 0.4 U/mL) corresponds to PTT of 56.6 - 109.0 sec.Performed By: #### [id number] ####[facility] [address] [place], [place] [address]WEU Coag (PPP) [Relative time]1.02 {INR}Invalid Interpretation CodeVan Wert County HospitalComment on above:Result Comment: INR results are specifically intended to assess patients stabilized on long-term Anticoagulation therapy suggested INR???s ???Less Intensive Anticoagulation??? 2.0 ??? 3.0 Conventional Range 3.0 ??? 4.5Performed By: #### [id number] ####[facility] [address] [place], [place] [address]KO Coag (PPP) [Time] 11.4 second(s)Normal9.4-12.5[facility] Shock Trauma CenterComment on above:Result Comment: 15 days - 4 weeks 1 - [...] the same coagulation reagent and instrumentation as [facility]. Currently there are no coagulation studies available worldwide for children to 14 days, andno normal ranges.Performed By: #### [id number] ####[facility] [address] [place], [place] [address]PO with Cult Rflxon 06-18-2024 Bilirubin Ql (U)NegativeNormalNegativeVan Wert County HospitalComment on above:Performed By: #### [id number] #### [facility] [address], [place] [address]Nzufixf (U)ClearNormalClearVan Wert County HospitalComment on above:Performed By: #### [id number] #### [facility] [address], [place] [address]Cfhjh (U)ColorlessAbnormalYellowVan Wert County Hospital Comment on above:Result Comment: Microscopic readings are only performed on those samples that meet specific criteria set forth by [facility].Performed By: #### [id number] #### [facility] [address], [place] [address]Pzenill Ql (U)NegativeNormalNegMercy Health Willard Hospital Comment on above:Performed By: #### [id number] #### [facility] [address], [place] [address]Spdkywrhfk Auto test strip (U) [Mass/Vol]TraceAbnormalNegative [facility] HospitalComment on above:Performed By: #### [id number] #### [facility] [address], [place] [address]Yhubqnh Auto test strip Ql (U)NegativeNormalNegMercy Health Willard HospitalComment on above:Performed By: #### [id number] #### [facility] [address], [place] [address]Jjfwnnbpx esterase Auto test strip Ql (U)NegativeNormalNegative [facility] HospitalComment on above:Performed By: #### [id number] #### [facility] [address] [place] [address]Ygvfpek Auto test strip Ql (U)NegativeNormalNegMercy Health Willard HospitalComment on above:Performed By: #### [id number] #### [facility] [address], [place] [address]nG (U)6.0 [pH]Invalid Interpretation Code5.0-9.0[facility] HospitalComment on above:Performed By: #### [id number] #### [facility] [address], [place] [address]Pmkaakg Ql (U)NegativeNormalNegMercy Health Willard Hospital Comment on above:Performed By: #### [id number] #### [facility] [address], [place] [address]Inofrosm gravity (U) [Rel density]1.005Invalid Interpretation Code1.005-1.030[facility] HospitalComment on above:Performed By: #### [id number] #### [facility] [address], [place] [address]Adssejmfdknp (U) [Mass/Vol]NegativeNormalNegativeVan Wert County HospitalComment on above:Performed By: #### [id number] #### [facility] [address], [place] [address]Asxi of Urine collection methodClean CatchNormKettering Health Washington TownshipComment on above:Performed By: #### [id number] #### [facility] Laboratory [address], [place] [address]SPHIJGBKGVHoplbrs By: SYSTEM SYSTEM on 86-34-0065Gzfgvlukz Ql (U)NegativeNormalNegativemg/dLFT UA Auto SSClarity (U)Clear (06/18/24 3:58 PM)NormalClearFTM UA Auto SSColor (U)Colorless 1 *ABN* (06/18/24 3:58 PM)Invalid Interpretation CodeYellowFT UA Auto SSComment on above:Interpretive Data: Microscopic readings are only performed on those samples that meet specific criteria set forth by [facility].Glucose Ql (U)NegativeNormalNegativemg/dLFT UA Auto SSHemoglobin Auto test strip (U) [Mass/Vol]Trace mg/dLInvalid Interpretation Code Negativemg/dLFTMC UA Auto SSKetones Auto test strip Ql (U)NegativeNormal Negativemg/dLFT UA Auto SSLeukocyte esterase Auto test strip Ql (U)Negative NormalNegativeLeu/uLFT UA Auto SSNitrite Auto test strip Ql (U)NegativeNormal Negativemg/dLFT UA Auto SSpH (U)6.0 *NA* (06/18/24 3:58 PM)Invalid Interpretation Code5.0 - 9.0FT UA Auto SSProtein Ql (U)NegativeNormalNegativemg/dLFT UA Auto SSSpecific gravity (U) [Rel density] 1.005 *NA* (06/18/24 3:58 PM)Invalid Interpretation Code1.005 - 1.030[facility] UA Auto SS Urobilinogen (U) [Mass/Vol]NegativeNormalNegativemg/dLLAKESIDE W[facility] [place] UA Auto SSURINALYSIS Ordered By: Reed Domingo on 65-77-1815FB Spec DescClean Catch (06/18/24 3:58 PM)NormalLAKESIDE [facility] [place] UA Auto SSeGFRon 39-57-8453tUFV73 mL/min/1.73 m2 Normal>=59[facility] HospitalComment on above:Performed By: #### [id number] #### [facility] [address], [place] [address]Vxdboviqjl Visit Summaryon 18-19-7149Hgezvutcjh Visit Summary Ambulatory Visit Summary RAIN SWEENEY [...] Surgical Services 2023 9:00 AM EST [facility] You Need to Schedule the [...] 1 Tablets By Mouth Every day Contact prescribingphysician if questions or concerns Unchanged tretinoin topical [...] including vitamins, herbs, eye drops, creams, and uekp-rpc-ebkvwlz medicines. ??? Any problems you or family [...] the procedure to nguyen (more content not included)...[facility] CampusU[facility] Office/Clinic Noteon 93-68-0846Tyhtbwm Office/Clinic Note Urology Office/Clinic Note Chief Complaint [...] times per week. SE discussed. Sent to [facility]. 4. Urethral caruncle (N36.2: Urethral caruncle) See [...] got a small bladder lesion in the posteriorbladder wall concerning for malignancy. Thus, we will [...] with voice recognition artificial intelligence software, specifically mysportgroup, Wannyi and or Tinselvision. Substitutions may have occurred due to the inherent limitations of voice recognition and artificial intelligence software. Documentation recorded by the scribe, Shahla Evans, accurately reflects the services(s) I performed and decisions made by me. Authenticated by Dr. Umberto Tobias on 06/11/2024 10:32:41. Problem List/Past Medic (more content not included)...[facility] CampusComment on above:Result Comment: Electronically Signed By: HAMILTON PEDROZA MD\.br\Date and Time Signed: 06/11/24 10:33 EDT\.br\Electronically Co-Signed By: Shahla Evans\.br\Date and Time Co- Signed: 06/11/24 10:15 EDTLaboratory - Chemistry and Chemistry - challengeon 97-17-8615Gkvsdyyga Ql (U)NegativeMadison HealthGlucose (U) [Mass/Vol]NegativeMadison HealthKetones Ql (U)Negative [facility] HealthpH (U)5 [pH][facility] Specific gravity (U) [Rel density]1.000[facility] Urobilinogen (U) [Mass/Vol]0.2 mg/dLMadison HealthLaboratory - Specimen informationon 26-39-4952Kpwnbyfwlg (U)cloudyMadison HealthColor (U)amberMadison HealthLaboratory - Urinalysison 81-85-1258Vpjetrfhv esterase Test strip Ql (U)++Madison HealthNitrite Ql (U)NegativeMadison HealthProtein Ql (U)NegativeMadison HealthNo Panel Informationon 06-04-2024 Urine Occult Blood+++Madison HealthUrine cultureOrdered By: Seb Barry on 55-92-5271Xkfauqoi identified Cx Nom (U)AbnormalMadison HealthUrology Office/Clinic Noteon 17-17-5835Uzyhajb Office/Clinic NoteUrology Office/Clinic Note HPI Staff 63 year old [...] colleagues. Details of each procedure, success rates, recovery/downtimeexpectations, and risks were discussed at length. We [...] w her to next appt. Understands that MDwiviky make final decision if she is a [...] among others. The patient, after being informed ofprocedural details and after questions have been answered, wishes to proceed. Full informed consenthas been obtained. Will order Local anesthesia. Abx sent. Ordered: E&M of New Patient Moderate 45-59 Min 38937 Orders: ciprofloxacin, See Instructions, 1 tab po day prior to cysto, 1 tab po following cysto, # 2 tab(s),Refills(s) 0, Pharmacy: [facility]/pharmacy #[id number], 170, cm, 05/25/24 10:38:00 EDT, Height/Length Dosing, 84, kg, 05/25/24 10:38:00 EDT, Weight Dosing Follow-up With When Contact Information [facility] [address] [place] [address] Business (1) Additional Instructions: our pulmonary physician will be contacting you for follow-up Patient [...] (at bedtime) venlafaxine Allergies (more content not included)...[facility] CampusComment on above: Result Comment: Electronically Signed By: TOMMY FLORES PA-C\.br\Date and Time Signed: 05/28/2414:13 EDTCholesterol in LDL Calc [Mass/Vol]on 05-26-2024 Cholesterol in LDL [Mass/Vol]160.0 mg/dLMadison HealthComment on above:<100 mg/dl BCTCNMQ853-749 mg/dl NEAR OR ABOVE MSTTJQH983-915 mg/dl BORDERLINE JMAI817-661 mg/dl HIGH>190 mg/dl VERY HIGHCholesterol in LDL [Mass/Vol]Cholesterol in LDL [Mass/volume] in Serum or Plasma by calculation Madison HealthComment on above:<100 mg/dl UAJEUSG335-855 mg/dl NEAR OR ABOVE RXDLRNL294-892 mg/dl BORDERLINE IEQO905-325 mg/dl HIGH>190 mg/dl VERY HIGHCholesterol in VLDL Calc [Mass/Vol]on 95-55-0310Jgnvktzsgmj in VLDL [Mass/Vol]41.0 mg/dLMadison HealthCholesterol in VLDL [Mass/Vol]Cholesterol in VLDL [Mass/volume] in Serum or Plasma by calculation Madison HealthEstimated glomerular filtration rate (GFR) non- Americanon 88-13-1672BSL/1.73 sq M.predicted among non-blacks MDRD (S/P/Bld) [Vol rate/Area]44 mL/min/{1.73_m2}Low>=60 mL/min/1.73m 2FSumma Health Akron CampusGFR/1.73 sq M.predicted among non-blacks MDRD (S/P/Bld) [Vol rate/Area]Estimated glomerular filtration rate (GFR) non- Low>=60 mL/min/1.73m [address] [place], [place] [address]Globulin Calc (S) [Mass/Vol]on 59-51-2405Dueceowb (S) [Mass/Vol]4.3 g/dLMadison HealthGlobulin (S) [Mass/Vol]Serum globulin measurement by calculation (mass/volume)[facility] HealthLaboratory - Chemistry and Chemistry - challengeon 32-61-0299Oscsuqz [Mass/Vol]3.5 g/dL3.4-5.0Mad[facility] HealthALP [Catalytic activity/Vol]110 U/J50-754VrkmirkghMadison HealthALT [Catalytic activity/Vol]21 U/J81-83HmdumypoeMadison HealthAST [Catalytic activity/Vol]14 U/NHkj84-65IqzjjpkynMadison HealthBilirubin [Mass/Vol]0.2 mg/dL0.2-1.0Madison HealthBilirubin.direct [Mass/Vol]0.1 mg/dL0.0-0.2FSumma Health Akron CampusCholesterol [Mass/Vol]281 mg/dLHigh<=200[facility] Cholesterol in HDL [Mass/Vol]80 mg/zXJgrs28-17OnetxuvxjMadison Health Comment on above:> or =60 mg/dl - LOW CARDIOVASCULAR RISK<40 mg/dl - HIGH CARDIOVASCULAR RISKCreatinine [Mass/Vol]1.24 mg/dLHigh0.55-1.02Madison HealthGFR/1.73 sq M.predicted MDRD (S/P/Bld) [Vol rate/Area]53 mL/min/{1.73_m2}Low>=60 mL/min/1.73m 2FSumma Health Akron CampusGlucose [Mass/Vol]110 mg/oNXcjx01-361QytbnodaaMadison HealthProtein [Mass/Vol] 7.8 g/dL6.4-8.2FSumma Health Akron CampusTriglyceride [Mass/Vol]205 mg/dL High<=150Madison HealthTSH Qn1.756 m[IU]/L0.358-3.740 Madison HealthUrea nitrogen [Mass/Vol]16.0 mg/dL7.0-18.0 [facility] HealthNo Panel Informationon 16-61-5145Kcoqjsk Level 0.6 mmol/L0.5-1.2FSumma Health Akron CampusComment on above:A concentration of 0.5-0.8 mmol/L is advised for long-termuse; concentrations of up to 1.2 mmol/L may be necessaryduring acute treatment. Detection Limit = 0.1 <0.1 indicates None DetectedPerformed at: [facility] [id number] Director: Reji Williamson PhD, Phone: [phone] or plasma albumin/globulin mass ratioon 32-23-8756Larpmvi/Globulin [Mass ratio] 0.8 {ratio}Madison HealthAlbumin/Globulin [Mass ratio]Serum or plasma albumin/globulin mass ratioProMedica Bay Park Hospitalerum or plasma total cholesterol/high density lipoprotein (HDL) cholesterol mass yoselyn 11-02-8965Ujfkgxjwnqa.total/Cholesterol in HDL [Mass ratio]3.5 {ratio}Madison HealthComment on above:3.3 - 4.4 LOW RISK4.4 - 7.1 AVERAGE RISK7.1 - 11.0 MODERATE RISK>11.0 HIGH RISKCholesterol.total/Cholesterol in HDL [Mass ratio]Serum or plasma total cholesterol/high density lipoprotein (HDL) cholesterol mass ratMadison HealthComment on above:3.3 - 4.4 LOW RISK4.4 - 7.1 AVERAGE RISK7.1 - 11.0 MODERATE RISK>11.0 HIGH RISKAmbulatory Visit Summaryon 36-85-9051Fnkzeeaynm Visit SummaryAmbulatory Visit Summary RAIN SWEENEY :1960 Visit Date:05/25/2024 Ambulatory Visit Instructions Your Diagnosis Incontinent of urine Your Care Team Attending Physician - TOMMY FLORES PA-C Primary Care Physician - SEB [...] including vitamins, herbs, eye drops, creams, and bveb-urj-evetmya medicines. ? Any problems you or family [...] tells you to take them. ? Taking hrln-ofk-hptzlyj medicines, vitamins, herbs, and supplements. Surgery safety Ask your health care provider: ? How your surgery site will be marked. ? What steps will be taken to help prevent infection. These steps may include: ? Removing hair at the surgery site. ? Washing skin wi (more content not included)...NormalAsheville [facility] Hospitaler [facility] Laboratory - Chemistry and Chemistry - challengeon 32-84-7218Aehytcwen Ql (U) NegativeMadison HealthGlucose (U) [Mass/Vol]NegativeMadison HealthKetones Ql (U)NegativeMadison Health pH (U)7.0 [pH]ProMedica Bay Park Hospitalpecific gravity (U) [Rel density]1.010Madison HealthUrobilinogen (U) [Mass/Vol]0.2 mg/dLMadison HealthLaboratory - Microbiology and Antimicrobial susceptibilityOrdered By: Adamaris Hill on 48-56-8123Gktzcrks identified Cx Nom (U)Klebsiella pneumoniaeAbnormalMadison HealthLaboratory - Specimen informationon 20-39-8651Hnmgxnosgq (U)clearMadison HealthColor (U)darkyellowMadison Health Laboratory - Urinalysison 42-68-0948Pdcgprdoy esterase Test strip Ql (U)moderate Madison HealthNitrite Ql (U)PositiveMadison HealthProtein Ql (U)NegativeMadison HealthNo Panel Informationon 66-97-7749Gdjrr Occult BloodmoderateMadison HealthUrine cultureOrdered By: Adamaris Hill on 36-32-9523Ibdpkilr identified Cx Nom (U)AbnormalMadison HealthHIV AB/P24 AG WITH REFLEXon 73-91-1194YCS AB/P24 AG SCREENNon-ReactiveNon ReactiveChildren's Mercy NorthlandComment on above:HIV-1/HIV-2 antibodies and HIV-1 p24 antigen were NOT detected. There is no laboratory evidence of HIV infection. HIV Negative Performed at: [employer] [id number] Industrial Nurse: Reji Willaimson PhD, Phone: [phone] CLINISYNCChildren's Mercy NorthlandHBV surface Ag IA Qlon 70-19-5440Usuvrixpv B Surface AntigenNegativeNegativeMadison HealthComment on above: Performed at: [employer] [id number] Director: Reji Williamson PhD, Phone: [phone] at: [facility]Pres[facility] HospitalGkxybj[address] [place], [place] [id number] Director: Reji Williamson PhD, Phone: [phone] 1 and HIV-2 antibody assay with HIV-1 p24 antigen detectionon 16-93-9610OSY 1+2 Ab+HIV1 p24 Ag IA QlNon-ReactiveNon Reactive Madison HealthComment on above:HIV-1/HIV-2 antibodies and HIV-1 p24 antigen were NOTdetected. There is no laboratory evidence of HIV infection.HIV NegativePerformed at: [facility]Presbyterian HospitalDxxmyv[address] [place], [place] [id number] Director: Reji Williamson PhD, Phone: [phone] 1+2 Ab+HIV1 p24 Ag IA QlHIV 1 and HIV-2 antibody assay with HIV-1 p24 antigen detectionNon ReactiveMadison HealthComment on above: HIV-1/HIV-2 antibodies and HIV-1 p24 antigen were NOTdetected. There is no laboratory evidence of HIV infection.HIV NegativePerformed at: [employer] [address] [place], [place] [id number] Director: Reji Williamson PhD, Phone: [phone] Panel Informationon 61-46-8442VAZ Quantitative Confirmation Non Reactive titerNonRea<1:1FSumma Health Akron CampusComment on above: Please Note: This test does not meet current guidelines forscreening and diagnosis of syphilis. This test isintended for following treatment response in patients beingtreated for syphilis infection. To screen for syphilisinfection, a reflex cascade that includes both RPR and atreponema-specific assay should be utilized, such asTreponema pallidum (Syphilis) Screening Downs (609206) orRapid Plasma Reagin (RPR) Test With Reflex to QuantitativeRPR and Confirmatory Treponema pallidum Antibodies(277711).Performed at: -[facility] [address] [place], [place] [id number] Director: Reji Williamson PhD, Phone: [phone],APTIMA HPV,AGE GDLNon 44-61-9939WJW GDLN ACOG TESTINGNote.[facility] HealthcareComment on above:TESTS RESULT FLAG UNITS REF RANGE LAB Clinician Provided Cytology Information Source.............Cervix;Endocervix No. of containers..01 ThinPrep Vial Age Algo ACOG Hailee... FLAG LEGEND: L-Low Normal,H-High Normal,LL-Alert Low,HH-Alert High <-Panic Low,>-Panic High,A-Abnormal,AA-Critical Abnormal Performed at: 01 =[address] [place] [address] Karena Shane MD, HPV APTIMANegativeNegativeNOMS HealthcareComment on above:This nucleic acid amplification test detects fourteen high- risk HPV types (16,18,31,33,35,39,45,51,52,56,58,59,66,68) without differentiation. Performed at: =[address] [id number] Industrial Nurse: Karena Shane MD, Phone: [phone] Performed at: [address] [id number] Industrial Nurse: Karena Shane MD, Phone: [phone] IGP, APTIMA HPV, RFX 16/18,45Note.[facility] HealthcareComment on above:TESTS RESULT FLAG UNITS REF RANGE LAB DIAGNOSIS: 02 NEGATIVE FOR INTRAEPITHELIAL LESION OR MALIGNANCY. Specimen adequacy: 02 Satisfactory for evaluation. No endocervical component is identified. Performed by: 02 Ernestine Pozo, Children'S Court Magistrate (ASC) . 02 Note: Note 02 The Pap [...] <-Panic Low,>-Panic High,A-Abnormal,AA-Critical Abnormal Performed at: [address] [address] Karena Shane MD, BRUSH-SPATULA CERVIX ENDOCERVIX CLINISYNCNOMS HealthcareURETHRITIS/DISCHARGE PLUS VAGINITIS (HTRX)on 04-23-2024 ATOPOBIUM VAGINAE0.000NOMS HealthcareATOPOBIUM VAGINAENot detectedNOMS HealthcareBVAB 2,3 (BACTERIAL VAGINOSIS ASSOCIATED BACTERIA 2, 3); MOBILUNCUS SPP0.000NOMS HealthcareBVAB 2,3 (BACTERIAL VAGINOSIS ASSOCIATED BACTERIA 2, 3); MOBILUNCUS SPPNot detectedNOMS HealthcareCANDIDA ALBICANS, PARAPSILOSIS, TROPICALIS0.000NOMS HealthcareCANDIDA ALBICANS, PARAPSILOSIS, TROPICALISNot detectedNOMS HealthcareCANDIDA GLABRATA0.000NOMS HealthcareCANDIDA GLABRATANot detectedNOMS HealthcareCANDIDA KRUSEI0.000NOMS HealthcareCANDIDA KRUSEINot detectedNOMS HealthcareCHLAMYDIA TRACHOMATIS0.000NOMS HealthcareCHLAMYDIA TRACHOMATISNot detectedNOMS HealthcareGARDNERELLA VAGINALIS0.000[facility] GARDNERELLA VAGINALISNot detectedNOMS HealthcareMEGASPHAERA (TYPES 1, 2)0.000 NOMS HealthcareMEGASPHAERA (TYPES 1, 2)Not detectedNOMS HealthcareMYCOPLASMA GENITALIUM0.000NOMS HealthcareMYCOPLASMA GENITALIUMNot detectedNOMS Healthcare NEISSERIA GONORRHOEAE0.000NOMS HealthcareNEISSERIA GONORRHOEAENot detectedNOMS HealthcareTRICHOMONAS VAGINALIS0.000NOMS HealthcareTRICHOMONAS VAGINALISNot detectedNOMS HealthcareNOMS HealthcareHuman papilloma virus 16+18+31+33+35+39+45+51+52+56+58+59+66+68 DNA [Presence] in [place] 82-63-8420UXZ 16+18+31+33+35+39+45+51+52+56+58+59+66+68 DNA Probe+sig amp Ql (Cvx)Negative NegativeMadison HealthComment on above:This nucleic acid amplification test detects fourteen high-risk HPV types (16,18,31,33,35,39,45,51,52,56,58,59,66,68)without differentiation.Performed at: =[address] [id number] Director: Karena Shane MD, Phone: [phone] at: [address] [id number] Director: Karena Shane MD, Phone: [phone] 16+18+31+33+35+39+45+51+52+56+58+59+66+68 DNA Probe+sig amp Ql (Cvx)Human papilloma virus 16+18+31+33+35+39+45+51+52+56+58+59+66+68 DNA [Presence] in CerNegativeMadison HealthComment on above:This nucleic acid amplification test detects fourteen high-risk HPV types (16,18,31,33,35,39,45,51,52,56,58,59,66,68)without differentiation.Performed at: =G - [facility] [address] [id number] Director: Karena Shane MD, Phone: [phone] at: WB - [facility] [address] [id number] Director: Karena Shane MD, Phone: [phone] Panel Informationon 99-62-1121FCN High Risk Other CommentNote. [facility] HealthComment on above:TESTS RESULT FLAG UNITS REF RANGE LAB DIAGNOSIS: 02 NEGATIVE FOR INTRAEPITHELIAL LESION OR MALIGNANCY.Specimen adequacy: 02 Satisfactory forevaluation. No endocervical component is identified.Performed by: Dionne Pozo, Children'S Court Magistrate(ASCP). 02Note: Note 02 The Pap smear is a screening test designed to aid in the detection of premalignant and malignant conditions of the uterine cervix. It is not a diagnostic procedure and should n ot be used as the sole means of detecting cervical cancer. Both false-positive and false-negative reports do occur.Test Methodology: Note 02 This liquid based ThinPrep(R) pap test was screened with the use of an image guided system.HPV Genotype Reflex Note 02 Criteria not met, HPV Genotype not perfo rmed. FLAG LEGEND: L-Low Normal,H-High Normal,LL-Alert Low,HH-Alert High <-Panic Low,>-Panic High,A-Abnormal,AA-Critical Abnormal----- Performed at:02 WB [facility] [address] [address] Karena Shane MD, Iqawharpv Lab Test Patient Madison HealthComment on above:TESTS RESULT FLAG UNITS REF RANGE LAB Clinician Provided Cytology Information Source.............Cervix;Endocervix No. of containers..01 ThinPrep VialAge Algo ACOG Hailee... 01 FLAG LEGEND: L-Low Normal,H-High Normal,LL-Alert Low,HH-Alert High <-Panic Low,>-Panic High,A- Abnormal,AA-Critical Abnormal Performed a t:01 =G [facility] [address] [place] [address] Karena Shane MD, Lgdufnrbn Auto (Bld) [#/Vol]on 61-93-2456Ltywbjabm (Bld) [#/Vol]0.1 10 3/uL0.0-0.1FSumma Health Akron CampusBasophils (Bld) [#/Vol]Automated basophil count0.0-0.1FSumma Health Akron Campus Basophils/100 WBC Auto (Bld)on 80-76-6198Lgqisudcy/100 WBC (Bld)0.8 %0.2-2.0 [facility] HealthBasophils/100 WBC (Bld)Automated basophil % 0.2-2.0Mad[facility] HealthCholesterol in LDL Calc [Mass/Vol]on 57-51-4037Ebzptcmratc in LDL [Mass/Vol]156.0 mg/dLMadison HealthComment on above:<100 mg/dl VRTZRXL680-718 mg/dl NEAR OR ABOVE ALYSEQO801- 159 mg/dl BORDERLINE IHLK713-045 mg/dl HIGH>190 mg/dl VERY HIGHCholesterol in LDL [Mass/Vol]Cholesterol in LDL [Mass/volume] in Serum or Plasma by calculation [facility] HealthComment on above:<100 mg/dl HYVQAGK306-480 mg/dl NEAR OR ABOVE EGZHJGC019-149 mg/dl BORDERLINE AVJU126-595 mg/dl HIGH>190 mg/dl VERY HIGHCholesterol in VLDL Calc [Mass/Vol]on 73-01-3176Umrfjxpblpy in VLDL [Mass/Vol]37.6 mg/dLMadison HealthCholesterol in VLDL [Mass/Vol]Cholesterol in VLDL [Mass/volume] in Serum or Plasma by calculation [facility] HealthEosinophils/100 WBC Auto (Bld)on 04-09-2024 Eosinophils/100 WBC (Bld)2.3 %0.9-7.0[facility] Eosinophils/100 WBC (Bld)Automated eosinophil %0.9-7.0Mad[facility] HealthErythrocyte distribution width Auto (RBC) [Ratio]on 54-71-7127Dxqmtayhfrk distribution width (RBC) [Ratio]14.2 %11.0-15.0Mad[facility] HealthErythrocyte distribution width (RBC) [Ratio]Erythrocyte distribution width [Ratio] by Automated count11.0-15.0Mad[facility] HealthGlobulin Calc (S) [Mass/Vol]on 86-12-5863Qztmpgrn (S) [Mass/Vol]3.7 g/dLMadison HealthGlobulin (S) [Mass/Vol]Serum globulin measurement by calculation (mass/volume)[facility] HealthHematocrit Auto (Bld) [Volume fraction]on 62-52-3515Auidplrbey (Bld) [Volume fraction]48.4 %High 36.0-48.0Mad[facility] HealthHematocrit (Bld) [Volume fraction] Hematocrit [Volume Fraction] of Blood by Automated glakxMnce97.0-48.0[facility] HealthHemoglobin [Mass/volume] in Bloodon 32-15-5233Mpjksqdjfz (Bld) [Mass/Vol]15.8 g/dL12.0-16.0[facility] HealthHemoglobin (Bld) [Mass/Vol]Hemoglobin [Mass/volume] in Blood12.0-16.0[facility] HealthLaboratory - Chemistry and Chemistry - challengeon 04-09-2024 Albumin [Mass/Vol]3.5 g/dL3.4-5.0[facility] HealthALP [Catalytic activity/Vol]92 U/E90-900GokjharkeMadison HealthALT [Catalytic activity/Vol]30 U/M55-24QjmerrfmiMadison HealthAST [Catalytic activity/Vol]17 U/R24-12KvlsjigcwMadison HealthBilirubin [Mass/Vol]0.6 mg/dL0.2-1.0Mad[facility] HealthBilirubin.direct [Mass/Vol]0.1 mg/dL0.0-0.2FSumma Health Akron CampusCholesterol [Mass/Vol]263 mg/dLHigh <=200Mad[facility] HealthCholesterol in HDL [Mass/Vol]70 mg/dLHigh 40-60Mad[facility] HealthComment on above:> or =60 mg/dl - LOW CARDIOVASCULAR RISK<40 mg/dl - HIGH CARDIOVASCULAR RISKProtein [Mass/Vol]7.2 g/dL6.4-8.2FSumma Health Akron CampusTriglyceride [Mass/Vol]188 mg/dLHigh <=150Mad[facility] HealthLaboratory - Hematology and Cell countson 53-06-8023Pqxnrcaj granulocytes/100 WBC (Bld)0.7 %High0.0-0.5FSumma Health Akron CampusLeukocytes [#/volume] corrected for nucleated erythrocytes in Blood by Automated counon 62-75-6379PVR corrected for nucl RBC Auto (Bld) [#/Vol]7.4 10 3/uL4.0-11.0Madison HealthWBC corrected for nucl RBC Auto (Bld) [#/Vol]Leukocytes [#/volume] corrected for nucleated erythrocytes in Blood by Automated coun4.0-11.0[facility] Lymphocytes Auto (Bld) [#/Vol]on 54-53-8705Mtvvzzgknhv (Bld) [#/Vol]1.9 10 3/uL 1.2-3.8Madison HealthLymphocytes (Bld) [#/Vol]Lymphocytes [#/volume] in Blood by Automated count1.2-3.8[facility] Lymphocytes/100 WBC Auto (Bld)on 75-96-8807Yskniqfjeym/100 WBC (Bld)25.8 % 20.5-60.0Madison HealthLymphocytes/100 WBC (Bld) Lymphocytes/100 leukocytes in Blood by Automated count20.5-60.0[facility] Auto (RBC) [Entitic mass]on 50-94-6422MMQ (RBC) [Entitic mass]29.5 pg26.7-34.0[facility] (RBC) [Entitic mass]MCH [Entitic mass] by Automated count26.7-34.0[facility] Auto (RBC) [Mass/Vol]on 93-46-8780HJER (RBC) [Mass/Vol]32.6 g/dL29.9-35.2FWexner Medical CenterHC (RBC) [Mass/Vol]MCHC [Mass/volume] by Automated count29.9-35.2FWexner Medical CenterV Auto (RBC) [Entitic vol]on 77-88-4065ORY (RBC) [Entitic vol]90.3 fL81.0-99.0 [facility] CenterMCV (RBC) [Entitic vol]MCV [Entitic volume] by Automated count81.0-99.0Mad[facility] HealthMonocytes Auto (Bld) [#/Vol]on 67-30-7137Wuawmxrex (Bld) [#/Vol]0.6 10 3/uL0.3-0.8Madison HealthMonocytes (Bld) [#/Vol]Automated blood monocyte count0.3-0.8 [facility] HealthMonocytes/100 WBC Auto (Bld)on 04-09-2024 Monocytes/100 WBC (Bld)7.9 %1.7-12.0[facility] Monocytes/100 WBC (Bld)Automated monocyte %1.7-12.0Mad[facility] HealthNeutrophils Auto (Bld) [#/Vol]on 29-53-3635Upveabnegfu (Bld) [#/Vol]4.6 10 3/uL1.4-6.5FSumma Health Akron CampusNeutrophils (Bld) [#/Vol] Neutrophils [#/volume] in Blood by Automated count1.4-6.5FSumma Health Akron CampusNeutrophils/100 WBC Auto (Bld)on 11-13-6532Kstfnchajml/100 WBC (Bld)62.5 %43.0-75.0[facility] HealthNeutrophils/100 WBC (Bld) Automated neutrophil %43.0-75.0[facility] HealthNo Panel Informationon 16-40-2943Axwozrumxsf # (Auto)0.2 10 3/uL0.0-0.7FSumma Health Akron CampusFollicle Stimulating Dhlylci30.8 mIU/mL25.8-134.8Mad[facility] HealthComment on above:Adult Female Range Follicular phase 3.5 - 12.5 Ovulation phase 4.7 - 21.5 Luteal phase 1.7 - 7.7 Postmenopausal 25.8 - 134.8Performed at: - [facility] [address] [id number] Director: Reji Williamson PhD, Phone: [phone] Granulocyte # (Auto) 0.05 10 3/uLHigh0.00-0.03Madison HealthLithium Level0.1 mmol/LAbnormal0.5-1.2FSumma Health Akron CampusComment on above:A concentration of 0.5-0.8 mmol/L is advised for long-termuse; concentrations of up to 1.2 mmol/L may be necessaryduring acute treatment. Detection Limit = 0.1 <0.1 indicates None DetectedPerformed at: [facility] Lab[address] [id number] Director: Reji Williamson PhD, Phone: [phone] Platelet mean volume Auto (Bld) [Entitic vol]on 19-66-8392Ppvtgbyj mean volume (Bld) [Entitic vol]10.0 fL9.5-13.5FSumma Health Akron CampusPlatelet mean volume (Bld) [Entitic vol]Platelet mean volume [Entitic volume] in Blood by Automated count9.5-13.5FSumma Health Akron CampusPlatelets Auto (Bld) [#/Vol]on 96-96-1532Bdndxomkd (Bld) [#/Vol]278 10 3/wG126-217SzzcstrwoMadison HealthPlatelets (Bld) [#/Vol]Platelets [#/volume] in Blood by Automated skdup176-916SuybpkdmaMadison HealthRBC Auto (Bld) [#/Vol]on 04-09-2024 RBC (Bld) [#/Vol]5.36 10 6/uL4.20-5.40Mad[facility] HealthRBC (Bld) [#/Vol]Erythrocytes [#/volume] in Blood by Automated count4.20-5.40[facility] Hospitalerum or plasma albumin/globulin mass ratioon 04-09-2024 Albumin/Globulin [Mass ratio]0.9 {ratio}[facility] Albumin/Globulin [Mass ratio]Serum or plasma albumin/globulin mass ratio [facility] Hospitalerum or plasma total cholesterol/high density lipoprotein (HDL) cholesterol mass yoselyn 65-12-7308Zzafugbruqs.total/Cholesterol in HDL [Mass ratio]3.8 {ratio}[facility] HealthComment on above: 3.3 - 4.4 LOW RISK4.4 - 7.1 AVERAGE RISK7.1 - 11.0 MODERATE RISK>11.0 HIGH RISK Cholesterol.total/Cholesterol in HDL [Mass ratio]Serum or plasma total cholesterol/high density lipoprotein (HDL) cholesterol mass [place] [facility] HospitalComment on above:3.3 - 4.4 LOW RISK4.4 - 7.1 AVERAGE RISK7.1 - 11.0 MODERATE RISK>11.0 HIGH RISKGeneral Surgery Office/Clinic Noteon 62-83-9789Mrfldca Surgery Office/Clinic NoteHistory of Present Illness nurse visit only Assessment/Plan [...] 12/09/2020 Recorded SARS-CoV-2 (COVID-19) mRNA-1273 vaccine 11/11/2020 RecordedFirelands Regional Medical Center South CampusComment on above:Result Comment: Electronically Signed By: Dieter LOCO MD\Date and Time Signed: 01/14/24 17:14 EDTNurse Consultation Noteon 84-90-9714Vurhn Consultation NoteAssessment/Plan Patient is 14 days post excision right [...] 12/09/2020 Recorded SARS-CoV-2 (COVID-19) mRNA-1273 vaccine 11/11/2020 RecordedFirelands Regional Medical Center South CampusOperative Reporton 92-96-9177Cjotduvyv Report [id number]#1.00TIFFFirelands Regional Medical Center South CampusPathology Noteon 17-18-8404Qlxsigues Note [id number]#1.00TIFCleveland Clinic Union HospitalConsent for Procedure/Surgeryon 83-37-3395Zcibips for Procedure/Surgery [id number]#1.00TIFCleveland Clinic Union HospitalFacesheeton 45-92-6981Spsshxukd [id number]#1.00[facility] HospitalRAD - Ultrasound Reporton 42-33-8602GLJ - Ultrasound Report [id number]#1.00[facility] HospitalAmbulatory Visit Summaryon 06-83-1622Fnflslbsmu Visit Summary RAIN SWEENEY :1960 Visit Date:11/19/2023 [...] 1 Tablets By Mouth Every day Contact prescribingphysician if questions or concerns Unchanged tretinoin topical [...] you for choosing us for your care. NormalAsheville Specialty Hospitaler [facility] Shock Trauma CenterBasophils Auto (Bld) [#/Vol]on 50-46-7663Zykhndxhn (Bld) [#/Vol]0.1 10 3/uL0.0-0.1FSumma Health Akron CampusBasophils/100 WBC Auto (Bld)on 34-76-0058Eiuwehbnm/100 WBC (Bld)0.9 % 0.2-2.0[facility] HealthCholesterol in LDL Calc [Mass/Vol]on 39-94-3987Tmqbgqqbclo in LDL [Mass/Vol]130.0 mg/dLMadison HealthComment on above:<100 mg/dl TXQZLVV532-778 mg/dl NEAR OR ABOVE PJERUAY563- 159 mg/dl BORDERLINE OLBY309-027 mg/dl HIGH>190 mg/dl VERY HIGHCholesterol in VLDL Calc [Mass/Vol]on 10-38-1178Rtzjrnvhbiv in VLDL [Mass/Vol]19.8 mg/dL [facility] HealthEosinophils/100 WBC Auto (Bld)on 11-18-2023 Eosinophils/100 WBC (Bld)4.5 %0.9-7.0[facility] Erythrocyte distribution width Auto (RBC) [Ratio]on 09-49-7317Wumshtbfvce distribution width (RBC) [Ratio]13.6 %11.0-15.0[facility] Estimated glomerular filtration rate (GFR) non- Americanon 11-18-2023 GFR/1.73 sq M.predicted among non-blacks MDRD (S/P/Bld) [Vol rate/Area]55 mL/min/{1.73_m2}>=60Mad[facility] HealthGlobulin Calc (S) [Mass/Vol]on 67-75-4358Rdyxwepk (S) [Mass/Vol]3.6 g/dLMadison HealthGlucose mean value [Mass/volume] in Blood Estimated from glycated hemoglobinon 95-47-3960Ciazpby glucose Estimated from glycated hemoglobin (Bld) [Mass/Vol]100 mg/dLMadison HealthHematocrit Auto (Bld) [Volume fraction]on 99-90-1333Wdumnnuhtd (Bld) [Volume fraction]46.8 %36.0-48.0 [facility] HealthHemoglobin [Mass/volume] in Bloodon 11-18-2023 Hemoglobin (Bld) [Mass/Vol]15.0 g/dL12.0-16.0[facility] - Chemistry and Chemistry - challengeon 37-34-8026Cfqfgzb [Mass/Vol] 3.7 g/dL3.4-5.0[facility] HealthALP [Catalytic activity/Vol]83 U/B41-792DypzyhookMadison HealthALT [Catalytic activity/Vol]40 U/L 14-59Mad[facility] HealthAST [Catalytic activity/Vol]22 U/L15-37 [facility] HealthBilirubin [Mass/Vol]0.4 mg/dL0.2-1.0[facility] HealthCalcium [Mass/Vol]9.1 mg/dL8.5-10.1FSumma Health Akron CampusChloride [Moles/Vol]104 mmol/Q81-870CkiagespmMadison HealthCholesterol [Mass/Vol]226 mg/dL<=200[facility] Cholesterol in HDL [Mass/Vol]77 mg/wD82-69FfrbqywwfMadison Health Comment on above:> or =60 mg/dl - LOW CARDIOVASCULAR RISK<40 mg/dl - HIGH CARDIOVASCULAR RISKCO2 [Moles/Vol]26.6 mmol/L21.0-32.0Mad[facility] HealthCreatinine [Mass/Vol]1.02 mg/dL0.55-1.02[facility] GFR/1.73 sq M.predicted MDRD (S/P/Bld) [Vol rate/Area]mL/min/{1.73_m2}>=60 [facility] HealthGlucose [Mass/Vol]107 mg/jL17-396EyagtouclMadison HealthPotassium [Moles/Vol]3.7 mmol/L3.5-5.1FSumma Health Akron CampusProtein [Mass/Vol]7.3 g/dL6.4-8.2FSumma Health [facility] Campus Sodium [Moles/Vol]141 mmol/B366-912AjspquihvMadison HealthTriglyceride [Mass/Vol]99 mg/dL<=150Mad[facility] HealthTSH Qn1.352 m[IU]/L 0.358-3.740Mad[facility] HealthUrea nitrogen [Mass/Vol]9.0 mg/dL 7.0-18.0[facility] HealthUrea nitrogen/Creatinine [Mass ratio] 8.8 mg/mgMadison HealthLaboratory - Hematology and Cell countson 37-72-0808PvO4h (Bld) [Mass fraction]5.1 %4.5-6.2FSumma Health Akron CampusComment on above:ADA RECOMMENDED LIMIT 4.0 - 6.0ADA THERAPEUTIC TARGET < 7.0ACTION SUGGESTED> 7.0Immature granulocytes/100 WBC (Bld)0.6 %0.0-0.5 [facility] HealthLeukocytes [#/volume] corrected for nucleated erythrocytes in Blood by Automated counon 15-37-7113RQF corrected for nucl RBC Auto (Bld) [#/Vol]6.5 10 3/uL4.0-11.0[facility] Lymphocytes Auto (Bld) [#/Vol]on 13-33-1795Liauewtbbbg (Bld) [#/Vol]1.7 10 3/uL 1.2-3.8[facility] HealthLymphocytes/100 WBC Auto (Bld)on 04-21-9223Skfghzrkgjs/100 WBC (Bld)25.3 %20.5-60.0[facility] HealthMCH Auto (RBC) [Entitic mass]on 37-95-1107KNI (RBC) [Entitic mass]29.6 pg 26.7-34.0[facility] HealthMCHC Auto (RBC) [Mass/Vol]on 27-15-1068SHWE (RBC) [Mass/Vol]32.1 g/dL29.9-35.2FSumma Health Akron CampusMCV Auto (RBC) [Entitic vol]on 02-18-5276WEK (RBC) [Entitic vol]92.3 fL 81.0-99.0[facility] HealthMonocytes Auto (Bld) [#/Vol]on 18-66-2264Uregvbkhb (Bld) [#/Vol]0.5 10 3/uL0.3-0.8[facility] HealthMonocytes/100 WBC Auto (Bld)on 16-99-1950Qqqdfasij/100 WBC (Bld)7.4 % 1.7-12.0[facility] HealthNeutrophils Auto (Bld) [#/Vol]on 85-22-7676Yaeijrehkdh (Bld) [#/Vol]4.0 10 3/uL1.4-6.5FSumma Health Akron CampusNeutrophils/100 WBC Auto (Bld)on 84-86-9693Rorslycijml/100 WBC (Bld)61.3 % 43.0-75.0[facility] HealthNo Panel Informationon 11-18-2023 Eosinophils # (Auto)0.3 10 3/uL0.0-0.7FSumma Health Akron CampusImmature Granulocyte # (Auto)0.04 10 3/uL0.00-0.03[facility] [place] Level0.9 mmol/L0.5-1.2FSumma Health Akron CampusComment on above: A concentration of 0.5-0.8 mmol/L is advised for long-termuse; concentrations of up to 1.2 mmol/L may be necessaryduring acute treatment. Detection Limit = 0.1 <0.1 indicates None DetectedPerformed at: [facility] [id number] Director: Reji Williamson PhD, Phone: [phone] Outside [facility] Hospitalon 28-08-9799[facility] [id number]#1.00TIFFNormalFisher R Adams Cowley Shock Trauma CenterPlatelet mean volume Auto (Bld) [Entitic vol]on 37-52-9548Szsnzklj mean volume (Bld) [Entitic vol]10.1 fL9.5-13.5FSumma Health Ak[facility] Campus Platelets Auto (Bld) [#/Vol]on 02-26-8017Ivuguytys (Bld) [#/Vol]281 10 3/uL 150-450Mad[facility] HealthRBC Auto (Bld) [#/Vol]on 96-77-2008VLS (Bld) [#/Vol]5.07 10 6/uL4.20-5.40[facility] Hospitalerum or plasma albumin/globulin mass ratioon 83-27-6859Lypozda/Globulin [Mass ratio]1.0 {ratio}[facility] Hospitalerum or plasma anion gap determination on 57-69-4171Ydkmq gap [Moles/Vol]14.1 mmol/LFSumma Health Akron Campus Serum or plasma total cholesterol/high density lipoprotein (HDL) cholesterol mass yoselyn 98-57-1523Exrooigzyfp.total/Cholesterol in HDL [Mass ratio]2.9 {ratio}[facility] HealthComment on above:3.3 - 4.4 LOW RISK4.4 - 7.1 AVERAGE RISK7.1 - 11.0 MODERATE RISK>11.0 HIGH RISKPhysician Referralon 65-07-1531Cltmrzoxc [id number]#1.00TIFF [facility] CampusXR LSPINE 2_3 VIEWSon 84-03-6213WX LSPINE 2_3 VIEWSEXAMINATION: XR LSPINE 2_3 VIEWS HISTORY: Low back pain COMPARISON: No relevant comparison available. FINDINGS: BONES: Rotatory dextrocurvature of the lumbosacral spine centered at L3-L4. Mild degenerative spondylosis and facet osteoarthropathy DISC SPACES: Mild widespread disc height narrowing. PARASPINOUS: Negative. No paraspinous abnormality is seen. OTHER: Negative. IMPRESSION: Rotatory dextrocurvature with degenerative changes Electronically authenticated by: MAKEDA QUIROZ Date: 2022-12-06 11:24NoMercy Health Defiance HospitalLITHIUMon 69-70-6537Wdmxxaf (Eskalith(R)), Serum0.8 mmol/L Normal0.5-1.2[facility]'S Medical CenterComment on above:Result Comment: A concentration of 0.5-0.8 mmol/L is advised for long-term use; concentrations of up to 1.2 mmol/L may be necessary during acute treatment. Detection Limit = 0.1 <0.1 indicates None DetectedPerformed By: #### LITHIUM ####[facility] [address] [place], [place] [address]JhDr. Laurel BucknerCREATININEon 84-83-7509Thmxjyodmu [Mass/Vol]0.97 mg/dLNormal0.55-1.02[facility] Comment on above:Performed By: #### TSH, CREA #### [facility] [address] [address] [address] Laurel SaucedaGFR-AF BRUNEIAN>60Normal>=60[facility] Rita'S Medical CenterComment on above:Performed By: #### TSH, CREA #### [facility] [address] [address] [address] Laurel SaucedaGFR-NON AF SCNYSSLP87 mL/min/1.05h5Flafkwkxwj low>=60The [facility] CenterComment on above:Performed By: #### TSH, CREA #### [facility] [address] [address] [address] Laurel Norman 84-78-3532YDI3.616 uIU/mLNormal0.358-3.740[facility] Rita'S Medical CenterComment on above:Performed By: #### TSH, CREA #### [facility] [address] [address] [address] Laurel BucknerMG MAMM SCREEN 3D TOMY CADon 71-59-6269RH MAMM SCREEN 3D TOMY CAD Patient: RAIN SWEENEY Exam Date: 11/14/2022 : 1960 Gender:F Ordering : DR SEB BARRY M.D. Admission #: [id number] Family : Order #: [id number] CLICK HERE TO VIEW EXAM RADIOLOGY REPORT [...] colon cancer at age 62. LOCATION: [facility] BREAST COMPOSITION: Heterogeneously dense,which may [...] by: Makeda Quiroz MD on 11/14/2022 at 12:03NoMercy Health Defiance Hospital LITHIUMon 89-76-0107Pmqbtcc (Eskalith(R)), Serum0.8 mmol/LNormal0.5-1.2[facility] Rita'S Medical CenterComment on above:Result Comment: Plasma concentration of 0.5 - 0.8 mmol/L are advised for long-term use; concentrations of up to 1.2 mmol/L may be necessary during acute treatment. Detection Limit = 0.1 <0.1 indicates None DetectedPerformed By: #### LITHIUM #### [facility] [address] [place] [address] Dr. Laurel Yu AUTO DIFFon 32-32-0858SJVV #0.1 103/ulNormal0.0-0.1[facility] Rita'S Medical CenterComment on above:Performed By: #### CBC #### [facility] [address] [address] [address] Laurel Rendonsophils/100 WBC (Bld)1.0 %Normal0.2-2.0[facility] Comment on above:Performed By: #### CBC #### [facility] [address] [place] [address] Dr. Laurel Crooks #0.4 103/ulNormal0.0-0.7The [facility] CenterComment on above: Performed By: #### CBC #### [facility] [address] [address] [address] Laurel Saucedaosinophils/100 WBC (Bld)5.3 %Normal0.9-7.0The [facility] Comment on above:Performed By: #### CBC #### [facility] [address] [place] [address] Dr. Laurel Saucedarythrocyte distribution width (RBC) [Ratio]13.8 %Xlckgy73.0-15.0 The [facility] CenterComment on above:Performed By: #### CBC #### [facility] [address] [place] [address] Dr. Laurel BucknerHematocrit (Bld) [Volume fraction]46.8 %Oazaam03.0-48.0The [facility] CenterComment on above:Performed By: #### CBC #### [facility] [address] [place] [address] Dr. Laurel BucknerHemoglobin (Bld) [Mass/Vol]14.8 g/yELkfjrr47.0-16.0The [facility] CenterComment on above:Performed By: #### CBC #### [facility] [address] [place] [address] Dr. Laurel Sims #0.07 10e3/ulCritically high0.00-0.03The [facility] Comment on above:Performed By: #### CBC #### [facility] [address] [place] [address] Dr. Laurel Sims %1.0 %Critically high0.0-0.5The [facility] CenterComment on above:Performed By: #### CBC #### [facility] [address] [place] [address] Dr. Laurel Sewell #1.7 103/ulNormal1.2-3.8The [facility] CenterComment on above:Performed By: #### CBC #### [facility] [address] [place] [address] Dr. Laurel Jeffersmphocytes/100 WBC (Bld)25.4 %Xrzvjw18.5-60.0The [facility] CenterComment on above:Performed By: #### CBC #### [facility] [address] [place] [address] Dr. Laurel Collins DIFF REQNONormalThe [facility] CenterComment on above: Performed By: #### CBC #### [facility] [address] [place] [address] Dr. Laurel Young (RBC) [Entitic mass]29.5 frOiqyry04.7-34.0The [facility] CenterComment on above:Performed By: #### CBC #### [facility] [address] [place] [address] Dr. Laurel Young (RBC) [Mass/Vol]31.6 g/lOScrurc16.9-35.2The [facility] CenterComment on above:Performed By: #### CBC #### [facility] [address] [place] [address] Dr. Laurel Block (RBC) [Entitic vol]93.4 gOTyfgke22.0-99.0The [facility] CenterComment on above:Performed By: #### CBC #### [facility] [address] [place] [address] Dr. Laurel Brooks #0.6 103/ulNormal0.3-0.8The [facility] CenterComment on above:Performed By: #### CBC #### [facility] [address] [place] [address] Dr. Laurel Taveraocytes/100 WBC (Bld)8.4 %Normal1.7-12.0The [facility] Comment on above:Performed By: #### CBC #### [facility] [address] [place] [address] Dr. Laurel Manzano #4.0 103/ulNormal1.4-6.5The [facility] CenterComment on above:Performed By: #### CBC #### [facility] [address] [place] [address] Dr. Yilan ChangNeutrophils/100 WBC (Bld)58.9 %Zfiygb50.0-75.0The [facility] on above:Performed By: #### CBC #### [facility] [address] [place] [address] Dr. Laurel Patel mean volume (Bld) [Entitic vol]10.1 fLNormal9.5-13.5The [facility] CenterComcorewell health reed city hospital on above:Performed By: #### CBC #### [facility] [address] [place] [address] Dr. Lauerl BucknerPLT279 103/hhXkbcxz418-877Ast [facility] CenterComcorewell health reed city hospital on above: Result Comment: smear reviewedPerformed By: #### CBC #### [facility] [address] [place] [address] Dr. Laurel BucknerRBC5.01 106/ulNormal4.20-5.40The [facility] on above:Performed By: #### CBC #### [facility] [address] [place] [address] Dr. Laurel BucknerWBC6.8 103/ulNormal4.0-11.0The [facility] on above: Performed By: #### CBC #### [facility] [address] [place] [address] Dr. Laurel BucknerGLYCOHEMOGLOBIN A1Con 24-06-8445YER RECOMMENDATIONSEE BELOWNormal The [facility] CenterComcorewell health reed city hospital on above:Result Comment: ADA RECOMMENDED LIMIT 4.0 - 6.0 ADA THERAPEUTIC TARGET < 7.0 ACTION SUGGESTED > 7.0Performed By: #### A1C #### [facility] [address] [place] [address] Dr. Laurel BucknerGlucose [Mass/Vol]97 mg/dLNoalThJoint Township District Memorial Hospital on above:Performed By: #### A1C #### [facility] [address] [place] [address] Dr. Laurel BucknerHbA1c (Bld) [Mass fraction]5.0 %Normal4.5-6.2The [facility] on above:Performed By: #### A1C #### [facility] [address] [address] [address] Laurel TomID PROFILEon 12-44-6016HDFY-HDL RATIO NORMSGalion Hospital on above:Result Comment: 3.3 - 4.4 LOW RISK 4.4 - 7.1 AVERAGE RISK 7.1 - 11.0 MODERATE RISK >11.0 HIGH RISKPerformed By: #### LIPID, TSH, CMP #### [facility] [address] [address] [address] Laurel BucknerCholesterol [Mass/Vol]279 mg/dLCritically high<=200[facility] on above:Performed By: #### LIPID, TSH, CMP #### [facility] [address] [place] [address] Dr. Laurel BucknerCholesterol in HDL [Mass/Vol]76 mg/dLCritically qosp19-58Wup [facility] on above:Performed By: #### LIPID, TSH, CMP #### [facility] [address] [place] [address] Dr. Laurel BucknerCholesterol in LDL [Mass/Vol]162.8 mg/dLCommunity Regional Medical Center on above:Performed By: #### LIPID, TSH, CMP #### [facility] [address] [address] [address] Laurel Wardesterrachel.total/Cholesterol in HDL [Mass ratio]3.7 {ratio} NormalWooster Community Hospital on above:Performed By: #### LIPID, TSH, CMP #### [facility] [address] [place] [address] Dr. Laurel BucknerHDL NORMAL> or = 60 mg/dl - LOW CARDIOVASCULAR RISK <40 mg/dl - HIGH CARDIOVASCULAR RISKProMedica Fostoria Community HospitalComcorewell health reed city hospital on above:Performed By: #### LIPID, TSH, CMP #### [facility] [address] [place] [address] Dr. Laurel BucknerLDL CALC NORMALSEE Magruder HospitalComcorewell health reed city hospital on above:Result Comment: <100 mg/dl OPTIMAL 100 - 129 mg/dl NEAR OR ABOVE OPTIMAL 130 - 159 mg/dl BORDERLINE HIGH 160 - 189 mg/dl HIGH >190 mg/dl VERY HIGH Performed By: #### LIPID, TSH, CMP #### [facility] [address] [address] [address] Laurel BucknerTriglyceride [Mass/Vol]201 mg/dLCritically high<=150The St. Anthony's Hospitalment on above:Performed By: #### LIPID, TSH, CMP #### [facility] [address] [address] [address] Laurel BucknerVLDL CALC40.2 mg/dLNormalThe [facility] CenterComment on above: Performed By: #### LIPID, TSH, CMP #### [facility] [address] [place] [address] Dr. Laurel Jasso 14(COMP METB)on 04-39-9286Tdphivv [Mass/Vol]3.6 g/dLNormal 3.4-5.0The [facility] CenterComment on above:Performed By: #### LIPID, TSH, CMP #### [facility] [address] [place] [address] Dr. Laurel BucknerAlbumin/Globulin [Mass ratio]0.9 {ratio}NormalThe [facility] CenterComment on above:Performed By: #### LIPID, TSH, CMP #### [facility] [address] [place] [address] Dr. Laurel Dias [Catalytic activity/Vol]110 U/GAzvcgs30-137Uzl St. Anthony's Hospitalment on above:Performed By: #### LIPID, TSH, CMP #### [facility] [address] [place] [address] Dr. Laurel Mary [Catalytic activity/Vol]22 U/FPlxumg90-53Nmw St. Anthony's Hospitalment on above:Performed By: #### LIPID, TSH, CMP #### [facility] [address] [place] [address] Dr. Laurel Decker gap [Moles/Vol]10.8 mmol/LNormalThe [facility] Comment on above:Performed By: #### LIPID, TSH, CMP #### [facility] [address] [address] [address] Laurel BucknerAST [Catalytic activity/Vol]11 U/LCritically knc89-03Myb [facility] CenterComment on above:Performed By: #### LIPID, TSH, CMP #### [facility] [address] [address] [address] Laurel BucknerBilirubin [Mass/Vol]0.3 mg/dLNormal0.2-1.0The [facility] Comment on above:Performed By: #### LIPID, TSH, CMP #### [facility] [address] [address] [address] Laurel BucknerCalcium [Mass/Vol]9.1 mg/dLNormal8.5-10.1The [facility] Comment on above:Performed By: #### LIPID, TSH, CMP #### [facility] [address] [address] [address] Laurel BucknerChloride [Moles/Vol]103 mmol/IRhtvcb82-346Irn [facility] Comment on above:Performed By: #### LIPID, TSH, CMP #### [facility] [address] [address] [address] Laurel BucknerCO2 [Moles/Vol]27.9 mmol/RXpjmwb33.0-32.0The [facility] Comment on above:Performed By: #### LIPID, TSH, CMP #### [facility] [address] [address] [address] Laurel BucknerCreatinine [Mass/Vol]0.96 mg/dLNormal0.55-1.02The [facility] CenterComment on above:Performed By: #### LIPID, TSH, CMP #### [facility] [address] [address] [address] Barragan ChangEGFR-AF BRUNEIAN>60Normal>=60The [facility] CenterComment on above:Performed By: #### LIPID, TSH, CMP #### [facility] [address] [address] [address] Laurel SaucedaGFR-NON AF SNSNNUYP05 mL/min/1.84z2Lgkyiadlna low>=60The [facility] CenterComment on above:Performed By: #### LIPID, TSH, CMP #### [facility] [address] [place] [address] Dr. Laurel BucknerGlobulin (S) [Mass/Vol]3.9 g/dLNormHarrison Community HospitalComment on above:Performed By: #### LIPID, TSH, CMP #### [facility] [address] [place] [address] Dr. Laurel BucknerGlucose [Mass/Vol]90 mg/yKOzwhbw12-714Znn [facility] Comment on above:Performed By: #### LIPID, TSH, CMP #### [facility] [address] [place] [address] Dr. Laurel BucknerPotassium [Moles/Vol]3.7 mmol/LNormal3.5-5.1The [facility] Comment on above:Performed By: #### LIPID, TSH, CMP #### [facility] [address] [place] [address] Dr. Laurel BucknerProtein [Mass/Vol]7.5 g/dLNormal6.4-8.2[facility] Comment on above:Performed By: #### LIPID, TSH, CMP #### [facility] [address] [place] [address] Dr. Laurel BucknerSodium [Moles/Vol]138 mmol/EDcxtbe273-227EhgMercy Health St. [facility]'S Medical Center Comment on above:Performed By: #### LIPID, TSH, CMP #### [facility] [address] [place] [address] Dr. Laurel BucknerUrea nitrogen [Mass/Vol]16.0 mg/dLNormal7.0-18.0The [facility] CenterComment on above:Performed By: #### LIPID, TSH, CMP #### [facility] [address] [place] [address] Dr. Laurel BucknerUrea nitrogen/Creatinine [Mass ratio]16.7 mg/mgNoMercy Health Defiance HospitalComment on above:Performed By: #### LIPID, TSH, CMP #### [facility] [address] [address] [address] Laurel Norman 07-16-0587NMH8.094 uIU/mLNormal0.358-3.740The [facility] CenterComment on above:Performed By: #### LIPID, TSH, CMP #### [facility] [address] [place] [address] Dr. Laurel Buckner Vital Signs Date TimeVital SignValuePerforming PfxjdkjbnDbmgenct06-25-0883 08:35-0400Body lsisbd463.2 cmBenjamin Murcek DO Work Phone: 1(775)[facility] [place], [place] [address]Opaxlnizns24-45-8902 08:35-0400Body mass index (BMI) [Ratio]26.63 kg/c7Uiyoujnn Murcek DO Work Phone: 1(719)[facility] [place], [place] [address]Psokqzuagf04-60-9243 08:35-0400Body jsyijb34.11 kgBenjamin Murcek DO Work Phone: [phone] [place], [place] 6001607-15-2025 07:59-0400Body dzmazk999.7 cmBenjamin Murcek DO Work Phone: 1(073)[facility] [place], [place] [address]Aewkossrkd98-83-8266 07:59-0400Body mass index (BMI) [Ratio]25.85 kg/w5Rqavtbmk Murcek DO Work Phone: 1(879)[facility] [place], [place] [address]Omfxubkzoc31-19-2768 07:59-0400Body rudymb87.11 kgBenjamin Murcek DO Work Phone: [phone])[address] [place], [place] 6001607-01-2025 09:47-0400Body isjifk727.2 cmBenjamin Murcek DO Work Phone: 1(568)[address] [place], [place] 6001607-01-2025 09:47-0400Body mass index (BMI) [Ratio]26.63 kg/u5Mumdnszk Murcek DO Work Phone: 1(266)[facility] [place], [place] [address]Kpllafolzo84-62-1287 09:47-0400Body cwxtux58.11 kgBenjamin Murcek DO Work Phone: [phone])[address] [place], [place] 6001606-13-2025 10:190400Body .18 cmPHYSICIAN [facility]06-13-2025 10:190400Body mass index (BMI) [Ratio]28.1 kg/b0BTTSRYPFM [facility]06-13-2025 10:190400Body ytgwcr35.64 kgPHYSICIAN [facility]06-13-2025 10:190400Diastolic blood qalcyzij77 mm[Hg] PHYSICIAN [facility]06-13-2025 10:0400Heart rate80 /minPHYSICIAN [facility]06-13-2025 10:0400Systolic blood zyxbhiee943 mm[Hg]PHYSICIAN [facility]06-10-2025 10:05-0400Body kmuriu266.7 Dennise Covarrubias MD Work Phone: 1(463)960-[address] [place], [place] [address]Gwrkcmacvy03-35-8075 10:05-0400Body mass index (BMI) [Ratio]27.37 kg/i8IqjhtSong Covarrubias MD Work Phone: 1(570)049-[address] [place], [place] [address]Xzcyiiomwk73-46-8568 10:05-0400Body yvksjz13.65 kgSong Covarrubias MD Work Phone: 1(402)007-[address] [place], [place] [address]Rbqqkxsbiq85-12-5449 10:05-0400Heart byhi712 /min Song Covarrubias MD Work Phone: 1(368)465-[address] [place], [place] [address]Uswksxhnih31-12-0998 10:05-0400Respiratory rate20 /minSong Covarrubias MD Work Phone: 1(995)210-[address] [place], [place] [address]Mtoabvecwz45-87-2426 10:05-2076DaR5% (BldA) [Mass fraction]98 %Song Covarrubias MD Work Phone: 1(890)713-[address] [place], [place] [address]Gwkftijpca47-93-1485 10:14-0400Body dnqipf428.2 Dennise Covarrubias MD Work Phone: 1([phone])525-[address] [place], [place] [address]Nouthvyouf52-12-3769 10:14-0400Body mass index (BMI) [Ratio]28.04 kg/d4QdleaSong Covarrubias MD Work Phone: 1(316)[address] [place], [place] 3782005-06-2025 10:14040Body ygztmr88.19 kgSong Covarrubias MD Work Phone: 1(566)[address] [place], [place] 3782005-06-2025 10:140400Diastolic blood bjwqpngu11 mm[Hg]Song Covarrubias MD Work Phone: 1(524)[address] [place], [place] 3782005-06-2025 10:140400Heart ktal153 /min Song Covarrubias MD Work Phone: 1(941)[address] [place], [place] [address]2005-06-2025 10:14Respiratory rate20 /minSong Covarrubias MD Work Phone: 1(357)[address] [place], [place] [address]2005-06-2025 10:147447WlN3% (BldA) [Mass fraction]97 %Song Covarrubias MD Work Phone: 1(794)[address] [place], [place] 3782005-06-2025 10:14Systolic blood etbtpbub797 mm[Hg]Song Covarrubias MD Work Phone: 1(462)[address] [place], [place] 3782001-08-2025 10:22-0500Diastolic blood cwtafjha31 mm[Hg]PHYSICIAN NO [facility]01-08-2025 10:22-0500Heart eadu294 /minPHYSICIAN [facility] 08-18-2024 10:22-0500Respiratory rate16 /minPHYSICIAN [facility]01-08-2025 10:22-7724ZjV5% (BldA) [Mass fraction]96 % PHYSICIAN NO [facility]01-08-2025 10:22-0500 Systolic blood miymfewe311 mm[Hg]PHYSICIAN NO [facility]01-08-2025 10:07-0500Body dzzjunkxshb02.3 [degF]PHYSICIAN NO [facility]01-08-2025 08:07-0500Body oryhgi774.18 cm PHYSICIAN NO [facility]01-08-2025 08:07-0500Body xzjynd88 kgPHYSICIAN NO [facility]12-27-2024 09:28-0500Blood Pressure LocationKWABENA NKANSAH-AMANKRA [facility] [place] 783312-27-2024 09:28-0500Diastolic blood nxfwwyfy91 mm[Hg]HAMILTON NKANSAH-AMANKRA [facility] [place] 783312-27-2024 09:28-0500Heart rate88 /minKWABENA NKANSAH-AMANKRA [facility] [place] 783312-27-2024 09:28-0500Respiratory rate17 /minKWABENA NKANSAH-AMANKRA [facility] [place] 783312-27-2024 09:28-0500Systolic blood zzpcegzi437 mm[Hg]HAMILTON NKANSAH-AMANKRA [facility] [place] 783312-20-2024 09:56-0500Diastolic blood bcurptyp56 mm[Hg]HAMILTON NKANSAH-AMANKRA [facility] [place] 783312-20-2024 09:56-0500Heart nwry275 /minKWABENA NKANSAH-AMANKRA [facility] [place] 783312-20-2024 09:56-0500Respiratory rate16 /minKWABENA NKANSAH-AMANKRA [facility] [place] 783312-20-2024 09:56-0500Systolic blood mcdzgmke884 mm[Hg]HAMILTON NKANSAH-AMANKRA [facility] [place] 783312-17-2024 08:41-0500Heart ecfx948 /minRonobir CROW [address] [place], [place] 6933512-17-2024 08:41-6170PlW8% (BldA) [Mass fraction]96 %Ronobir CROW [address] [place], [place] 6933512-17-2024 08:29-0500Body eztzoyhthav75.06 [degF]Ronobir CROW [address] [place], [place] 6933512-17-2024 08:29-0500 Diastolic blood ucjdyioy061 mm[Hg]Ronobir CROW [address] [place], [place] 6933512-17-2024 08:29-0500Mean blood wdfzhuxc151 mm[Hg]Ronobir CROW [address] [place], [place] 6933512-17-2024 08:29-0500 Systolic blood kajbflry498 mm[Hg]Ronobir CROW [address] [place], [place] 6933512-17-2024 08:11-0500Heart xynd577 /minRonobir CROW [address] [place], [place] 6933512-17-2024 08:11-0915VlR6% (BldA) [Mass fraction]95 %Ronobir CROW [address] [place], [place] 6933512-17-2024 08:11-0500 Respiratory rate16 /minRonobir CROW [address] [place], [place] 8408712-17-2024 08:10-0500 Diastolic blood bfqshyeg91 mm[Hg]Ronobir CROW [address] [place], [place] 6933512-17-2024 08:10-0500Mean blood phhivkdm688 mm[Hg]Ronobir CROW [address] [place], [place] 6933512-17-2024 08:10-0500 Systolic blood ccectoec472 mm[Hg]Ronobir CROW [address]12-17-2024 08:10-0500Body mojdwztcxxk58.88 [degF]Ronobir CROW [address]12-17-2024 06:06-0500 Hourly RoundingRonobir CROW [address] [place], [place] 6933512-17-2024 06:06-0500 Promise to ReturnRonobir CROW [address] [place], [place] 6933512-17-2024 05:13-0500 Hourly RoundingRonobir CROW [address] [place], [place] 6933512-17-2024 05:13-0500 Promise to ReturnRonobir CROW [address] [place], [place] 6933512-17-2024 04:08-0500 Hourly RoundingRonobir CROW [address] [place], [place] 6933512-17-2024 04:08-0500 Promise to ReturnRonobir CROW [address]12-17-2024 02:23-0500Blood Pressure LocationRonobir CROW [address]12-17-2024 02:23-0500Body ddzqxjyumpr32.7 [degF]Ronobir CROW [address]12-17-2024 02:23-0500 Diastolic blood yalpznip79 mm[Hg]Ronobir CROW [address] [place], [place] 8408712-17-2024 02:23-0500Heart rate83 /minRonobir CROW [address] [place], [place] 8408712-17-2024 02:23-0500Mean blood mm[Hg]Ronobir CROW [address]12-17-2024 02:23-2583UpA2% (BldA) [Mass fraction]97 %Ronobir CROW [address] [place], [place] 6933512-17-2024 02:23-0500 Systolic blood tfiftqbi422 mm[Hg]Ronobir CROW [address] [place], [place] 6933512-16-2024 20:00-0500Body mbxqarjjzdk53.06 [degF]Ronobir CROW [address] [place], [place] 6933512-16-2024 16:18-0500 Respiratory rate16 /minRonobir CROW [address] [place], [place] 6933512-16-2024 16:18-0500Body jiotmqwozuw08.7 [degF]Ronobir CROW [address] [place], [place] 6933512-16-2024 16:18-0500Mean blood ngocnttz38 mm[Hg]Ronobir CROW [address] [place], [place] 6933512-16-2024 01:00-0500Blood Pressure LocationRonobir CROW [address] [place], [place] 6933512-16-2024 01:00-0500Body cdjummukgvp55.16 [degF]Ronobir CROW [address] [place], [place] 6933512-16-2024 01:00-0500Mean blood wjezqzxo71 mm[Hg]Ronobir CROW [address] [place], [place] 8408712-15-2024 08:00-0500Heart rate98 /minRonobir CROW [address] [place], [place] 8408712-15-2024 08:00-0500Mean blood pzisclbc56 mm[Hg]Ronobir CROW [address] [place], [place] 6933512-12-2024 12:28-0500Heart rate99 /minKWABENA NKANSAH-AMANKRA [address] [place], [place] 9171112-12-2024 12:28-6272VkD1% (BldA) [Mass fraction]98 %HAMILTON NKANSAH-AMANKRA [address] [place], [place] 9171112-12-2024 12:28-0500 Diastolic blood mtoreibn08 mm[Hg]HAMILTON NKANSAH-AMANKRA [address] [place], [place] 9171112-12-2024 12:28-0500Mean blood ahvubuzc32 mm[Hg]HAMILTON NKANSAH-AMANKRA [address] [place], [place] 9171112-12-2024 12:28-0500 Systolic blood ihnnehwk348 mm[Hg]HAMILTON NKANSAH-AMANKRA [address] [place], [place] 9171112-12-2024 12:28-0500 Respiratory rate16 /minKWABENA NKANSAH-AMANKRA [address] [place], [place] 9171112-12-2024 10:10-0500Blood Pressure LocationKWABENA NKANSAH-AMANKRA [address] [place], [place] 9171112-12-2024 10:10-0500Body jvrjulzuuly83.7 [degF]HAMILTON NKANSAH-AMANKRA [address] [place], [place] 9171112-12-2024 10:10-0500 Diastolic blood mm[Hg]HAMILTON NKANSAH-AMANKRA [address] [place], [place] 9171112-12-2024 10:10-0500Heart icog207 /minKWABENA NKANSAH-AMANKRA [facility]12-12-2024 10:10-0500Mean blood nxztypjw49 mm[Hg]HAMILTON NKANSAH-AMANKRA [facility]12-12-2024 10:10-0500 Respiratory rate16 /minKWABENA NKANSAH-AMANKRA [address] [place], [place] 9171112-12-2024 10:10-6945VxN7% (BldA) [Mass fraction]96 %HAMILTON NKANSAH-AMANKRA [address] [place], [place] 9171112-12-2024 10:10-0500 Systolic blood ezzpjdkj862 mm[Hg]HAMILTON BELCHERANSAH-AMANKRA [address]12-12-2024 09:58-0500Body klbfaxszcib52.88 [degF]HAMILTON NKANSAH-AMANKRA [address] [place], [place] 9171112-12-2024 09:58-0500 Diastolic blood fmonikbb20 mm[Hg]HAMILTON NKANSAH-AMANKRA [address] [place], [place] 9171112-12-2024 09:58-0500Heart gwkj884 /minKWABENA NKANSAH-AMANKRA [address] [place], [place] 9171112-12-2024 09:58-0500Mean blood cczyyaem12 mm[Hg]HAMILTON NKANSAH-AMANKRA [address] [place], [place] 9171112-12-2024 09:58-0500 Respiratory rate20 /minKWABENA NKANSAH-AMANKRA [address] [place], [place] 9171112-12-2024 09:58-4354VsS2% (BldA) [Mass fraction]94 %HAMILOTN NKANSAH-AMANKRA [address] [place], [place] 9171112-12-2024 09:58-0500 Systolic blood iqgfmnlj296 mm[Hg]HAMILTON NKANSAH-AMANKRA [facility]12-12-2024 09:40-0500Mean blood mbalizbb457 mm[Hg]HAMILTON NKANSAH-AMANKRA [facility]12-12-2024 09:40-0500 Respiratory rate24 /minKWABENA NKANSAH-AMANKRA [facility]12-12-2024 09:25-0500 Respiratory rate11 /minKWABENA NKANSAH-AMANKRA [facility]12-12-2024 09:08-0500Blood Pressure LocationKWABENA NKANSAH-AMANKRA [facility]12-12-2024 09:08-0500Body fvbzelikwvh11.52 [degF]HAMILTON NKANSAH-AMANKRA [facility]12-12-2024 06:19-0500Heart rate98 /minKWABENA NKANSAH-AMANKRA [facility]12-12-2024 06:19-0500 Respiratory rate18 /minKWABENA NKANSAH-AMANKRA [facility]12-12-2024 06:18-0500Mean blood zdiwatos844 mm[Hg]HAMILTON NKANSAH-AMANKRA [facility]11-25-2024 10:04-0500Blood Pressure LocationKWABENA NKANSAH-AMANKRA [facility] [place] 172811-25-2024 10:04-0500Diastolic blood onkcrflu44 mm[Hg]HAMILTON NKANSAH-AMANKRA [facility] [place] 056011-25-2024 10:04-0500Heart hltg983 /minKWABENA NKANSAH-AMANKRA [facility] [place] 056011-25-2024 10:04-0500Systolic blood mm[Hg]HAMILTON NKANSAH-AMANKRA [facility] [place] 056011-14-2024 10:02-0500Heart rate89 /minKWABENA NKANSAH-AMANKRA [facility]11-14-2024 10:02-8936PkV1% (BldA) [Mass fraction]97 %HAMILTON NKANSAH-AMANKRA [facility]11-14-2024 10:01-0500Blood Pressure LocationKWABENA NKANSAH-AMANKRA [facility]11-14-2024 10:01-0500 Diastolic blood mm[Hg]HAMILTON NKANSAH-AMANKRA [facility]11-14-2024 10:01-0500Mean blood igxdwktm368 mm[Hg]HAMILTON NKANSAH-AMANKRA [facility]11-14-2024 10:01-0500 Systolic blood dfredvrx958 mm[Hg]HAMILTON NKANSAH-AMANKRA [facility]11-14-2024 10:01-0500 Respiratory rate16 /minKWABENA NKANSAH-AMANKRA [facility]11-14-2024 09:21-0500Heart rate95 /minKWABENA NKANSAH-AMANKRA [facility]11-14-2024 09:21-8562LtX4% (BldA) [Mass fraction]95 %HAMILTON NKANSAH-AMANKRA [address] [place], [place] 9171111-14-2024 09:20-0500Blood Pressure LocationKCHRISNA NKANSAH-AMANKRA [address] [place], [place] 9171111-14-2024 09:20-0500 Diastolic blood vpsdwoww70 mm[Hg]HAMILTON NKANSAH-AMANKRA [address] [place], [place] 9171111-14-2024 09:20-0500Mean blood khaapcgn245 mm[Hg]HAMILTON NKANSAH-AMANKRA [address]11-14-2024 09:20-0500 Systolic blood yrlnkmxs666 mm[Hg]HAMILTON NKANSAH-AMANKRA [address] [place], [place] 9171111-14-2024 09:20-0500 Respiratory rate18 /minBRIANNA NKANSAH-AMANKRA [address] [place], [place] 9171111-14-2024 09:13-0500Body ystnrwgmbnb00.06 [degF]HAMILTON NKANSAH-AMANKRA [address] [place], [place] 9171111-14-2024 09:13-0500Mean blood xnhmyqpz28 mm[Hg]HAMILTON NKANSAH-AMANKRA [address] [place], [place] 9171111-14-2024 09:13-0500 Respiratory rate16 /minLUCABENA NKANSAH-AMANKRA [address] [place], [place] 9171111-14-2024 08:48-0500Body naohmbzagfp93.7 [degF]HAMILTON NKANSAH-AMANKRA [address] [place], [place] 9171111-14-2024 08:48-0500Mean blood aredbwcr65 mm[Hg]HAMILTON NKANSAH-AMANKRA [facility]11-14-2024 07:00-0500Heart ifrh983 /minKWABENA NKANSAH-AMANKRA [facility]11-14-2024 06:56-0500Body .24 [degF]HAMILTON NKANSAH-AMANKRA [facility]11-11-2024 10:32-0500Body negvvn846.18 cmAmanda Liz TABLE TOP TILE SETTER Work Phone: [facility]11-11-2024 10:32-0500 Body mass index (BMI) [Ratio]28.8 kg/g8Ldyjqc Liz TABLE TOP TILE SETTER Work Phone: [facility]11-11-2024 10:32-0500 Body elaukq79.46 kgAmanda Liz TABLE TOP TILE SETTER Work Phone: [facility]11-11-2024 10:32-0500 Diastolic blood kzabowjp95 mm[Hg]Adamaris Liz TABLE TOP TILE SETTER Work Phone: [facility]11-11-2024 10:32-0500 Heart qraz444 /minAmanda Liz TABLE TOP TILE SETTER Work Phone: [facility]11-11-2024 10:32-0500 Systolic blood vzzcpayn511 mm[Hg]Adamaris Liz TABLE TOP TILE SETTER Work Phone: [facility]11-08-2024 15:48-0500 Diastolic blood vmrovaji83 mm[Hg]HAMILTON NKANSAH-AMANKRA [facility]11-08-2024 15:48-0500Heart rate87 /minKWABENA NKANSAH-AMANKRA [facility]11-08-2024 15:48-0500Mean blood tcdxbilt763 mm[Hg]HAMILTON NKANSAH-AMANKRA [facility]11-08-2024 15:48-0500 Systolic blood udosrpyu549 mm[Hg]HAMILTON NKANSAH-AMANKRA [facility]11-08-2024 15:48-0500Heart rate59 /minKWABENA NKANSAH-AMANKRA [facility]11-08-2024 15:48-1486LlX1% (BldA) [Mass fraction]99 %HAMILTON NKANSAH-AMANKRA [facility]11-08-2024 15:47-0500 Diastolic blood nzqkocdu08 mm[Hg]HAMILTON NKANSAH-AMANKRA [facility]11-08-2024 15:47-0500Mean blood mm[Hg]HAMILTON NKANSAH-AMANKRA [facility]11-08-2024 15:47-0500 Systolic blood mscakcja636 mm[Hg]HAMILTON NKANSAH-AMANKRA [facility]11-01-2024 09:42-0400Blood Pressure LocationKROSABENA NKANSAH-AMANKRA [facility] [place] 999111-01-2024 09:42-0400Diastolic blood dfykcqle55 mm[Hg]HAMILTON NKANSAH-AMANKRA [facility] [place] 783311-01-2024 09:42-0400Heart ekzs591 /minKWABENA NKANSAH-AMANKRA [facility] [place] 783311-01-2024 09:42-0400Respiratory rate20 /minKWABENA NKANSAH-AMANKRA [facility] [place] 783311-01-2024 09:42-0400Systolic blood swiunuzb269 mm[Hg]HAMILTON MALONE [facility] [place] 783310-15-2024 10:30-0400Blood Pressure LocationJENNIFER MARK [facility]10-15-2024 10:30-0400Diastolic blood vluugbfg01 mm[Hg]TOMMY AMRK [facility]10-15-2024 10:30-0400Heart bnoc077 /minJENNIFER MARK [facility]10-15-2024 10:30-0400Systolic blood lhyoqpqh717 mm[Hg]TOMMY FLORES [facility]10-09-2024 10:20-0400Body gsybop026.18 cmPHYSICIAN [facility]10-09-2024 10:20-0400Body mass index (BMI) [Ratio]27.3 kg/q7FHKHQAJVV [facility]10-09-2024 10:20-0400 Body abrhlmtbbcz35.8 [degF]PHYSICIAN [facility] 05-19-2024 10:20-0400Body scsbid01.37 kgPHYSICIAN [facility]10-09-2024 10:20-0400Diastolic blood kqsivgzf85 mm[Hg]PHYSICIAN [facility]10-09-2024 10:20-0400Heart aodb255 /min PHYSICIAN [facility]10-09-2024 10:20-0400 Respiratory rate18 /minPHYSICIAN [facility] 05-19-2024 10:20-9107BpU7% (BldA) [Mass fraction]97 %PHYSICIAN NO [facility]10-09-2024 10:20-0400Systolic blood qtqmfepx050 mm[Hg]PHYSICIAN NO [facility]09-11-2024 09:04-0400 Body mass index (BMI) [Ratio]27.27 kg/m2Faiza BURTON Work Phone: [facility]ut[facility]4018 09:04-0400Body tuuids41.98 kgFaiza BURTON Work Phone: [facility]landJncikzgohh50-22-6238 09:04-0400Diastolic blood xhpukopz83 mm[Hg]Faiza BURTON Work Phone: [facility]landGgqtlayafe28-11-2583 09:04-0400Systolic blood llixbagn806 mm[Hg]Faiza BURTON Work Phone: [facility]landPttgxhwbiz00-54-3438 09:36-0400Body wlweai977.18 cmPHYSICIAN [facility]06-21-2024 09:36-0400Body mass index (BMI) [Ratio]26.7 kg/s6JJEMSEVDZ [facility]06-21-2024 09:36-0400Body .56 kgPHYSICIAN [facility]06-21-2024 09:36-0400Diastolic blood gbqdocxa61 mm[Hg] PHYSICIAN NO [facility]06-21-2024 09:36-0400Heart dubs032 /minPHYSICIAN [facility]06-21-2024 09:36-0400Systolic blood zpembgkb758 mm[Hg]PHYSICIAN NO [facility]04-10-2024 13:56-0400Blood Pressure LocationMicsuzy LOCO [facility] Wjohroql12-30-5575 13:56-0400Diastolic blood exkcvxgp76 mm[Hg]Dieter LOCO [facility] Oipvdkiz46-66-4313 13:56-0400Heart rate 72 /minMichael NILL [facility] Wregvyne01-85-4672 13:56-0400 Respiratory rate16 /minMichael NILL [facility] Amjalaeb00-53-8376 13:56-0400Systolic blood ezymwzhx835 mm[Hg]Dieter NILL [facility] Dcmowptk17-03-6786 10:20-0400Body jyvgiy697.18 cmPHYSICIAN [facility]04-03-2024 10:20-0400Body mass index (BMI) [Ratio]28 kg/t8CBKJESSQY [facility]04-03-2024 10:20-0400Body ohlvyc16.36 kgPHYSICIAN [facility]04-03-2024 10:20-0400Diastolic blood xttjsebd54 mm[Hg]PHYSICIAN [facility]04-03-2024 10:20-0400Heart apra970 /minPHYSICIAN [facility] 11-12-2023 10:20-0400Systolic blood lxogvted750 mm[Hg]PHYSICIAN [facility]03-13-2024 09:23-0400Body vtvysv012.18 cm PHYSICIAN [facility]03-13-2024 09:23-0400Body mass index (BMI) [Ratio]29.1 kg/i8DXRQRMCOI [facility]03-13-2024 09:23-0400Body yysdff43.36 kgPHYSICIAN [facility]03-13-2024 09:23-0400Diastolic blood laextrms03 mm[Hg] PHYSICIAN [facility]03-13-2024 09:23-0400Heart jron710 /minPHYSICIAN [facility]03-13-2024 09:23-0400Systolic blood tafqyvcs000 mm[Hg]PHYSICIAN NO [facility]10-19-2023 14:00-0400Body acpjre754.18 cmDaclaudia Barry Other [employer] Other 10-19-2023 14:00-0400Body mass index (BMI) [Ratio] 29.44 kg/m2Dale Barry Other [employer] Other 10-19-2023 14:00-0400Body yexuhc16.28 kgDale Barry Other [employer] Other 09-25-2023 08:30-0400Body pelrxs715.18 cmMarfernando Barry Other [employer] Other 09-25-2023 08:30-0400Body mass index (BMI) [Ratio] 29.44 kg/v6TokyyySeb Barry Other [employer] Other 09-25-2023 08:30-0400Body maiufp62.28 kgMarcia Asha Other [employer] Other 09-25-2023 08:30-0400Diastolic blood macbmatf18 mm[Hg] Seb Barry Other [employer] Other 09-25-2023 08:30-0400Systolic blood iqnslubh258 mm[Hg] Seb Barry Other [employer] Other 08-22-2023 10:00-0400Body .18 cmSeb Barry Other [employer] Other 08-22-2023 10:00-0400Body mass index (BMI) [Ratio] 29.13 kg/m7FyyowqSeb Barry Other [employer] Other 08-22-2023 10:00-0400Body tbliss75.37 kgGabrielafernando Barry Other [employer] Other 08-22-2023 10:00-0400Diastolic blood xdzocvln67 mm[Hg] Seb Asha Other [employer] Other 08-22-2023 10:00-0400Systolic blood rzjvafma241 mm[Hg] Seb Asha [facility] [place] [employer] Other Encounters Encounter DateEncounter TypeCare ProviderFacilityStart: 93-99-1759xobdhkggrn PHYSICIAN NO FAMILYFacility:[facility]2025 End: 81-29-5769ynnvvezozbIESMFZHPremier Health [facility] Hospitaltart: 03-09-2025 End: 93-44-1863Gfarglecny hospital visit by Anoop Tran PTAMTHZ Physical TherapyComment on above:ArrivedStart: 03-08-2025 End: 75-70-8183Yjoykt outpatient visit 15 minutesBengio Winslow Murcek DO Work Phone: [facility] [place] OtolaryngologyComment on above:Thyroid nodule (Primary Dx)Start: 03-08-2025 End: 15-37-4701cfwpyilyxjEKAPAJPN W MURCEKNot AvailableStart: 02-28-2025 End: 10-73-2205frijialofvWBPEWSOPremier Health [facility] Hospitaltart: 02-28-2025 End: 30-67-1304Oyjpzxgogl hospital visit by Anoop Tran PTAMTHZ Physical TherapyComment on above:ArrivedStart: 02-22-2025 End: 38-79-5768Gexidf flowsheetBenjamin W Murcek DO Work Phone: [facility] DHAVAL THAPAUSKYStart: 02-22-2025 End: 15-13-6210Bndppq flowsheetBenjamin W Murcek DO Work Phone: [facility] ENT SANDUSKYStart: 02-22-2025 End: 46-82-8099Mlcniisi ReferredBenjamin W Murcek DO-[facility] [place] Work Phone: Start: 02-22-2025 End: 52-79-4782Deikmq outpatient visit 25 minutesBenjamin W Murcek DO Work Phone: [facility] ENT SANDUSKYComment on above:Thyroid nodule (Primary Dx); SHARON (obstructive sleep apnea)Start: 02-22-2025 End: 98-62-7989rtvsedkuhvGXRJGTOKH [facility] Work Phone: Start: 02-21-2025 End: 09-80-6741Nmlddliznw hospital visit by physicianAlla Tran PTAMTHZ Physical TherapyStart: 02-17-2025 End: 14-49-6710sofbjvmoqiFDDLAKHWestern Plains Medical Complextart: 02-17-2025 End: 03-79-7733Wrisqrmxvw hospital visit by physicianCaren Shoemaker PTMTHZ Physical TherapyComment on above:ArrivedStart: 02-08-2025 End: 42-92-8099Jgiquu flowsheetBenjamin W Murcek DO Work Phone: [facility] ENT SANDUSKYStart: 02-08-2025 End: 65-33-4879Lfvzwd flowsheetBenjamin W Murcek DO Work Phone: [facility] ENT SANDUSKYStart: 02-08-2025 End: 63-24-3455Yzpisc outpatient new 45 minutesBenjamin W Murcek DO Work Phone: [facility] ENT SANDUSKYComment on above:Hyperthyroidism (Primary Dx); Multinodular goiterStart: 02-08-2025 End: 17-55-1447wandnsitndPJEBTBVP W MURCEKNot AvailableStart: 01-21-2025 End: 72-86-0953Yjlarqg encounter Luther Barry MD-[facility] Work Phone: Start: 01-18-2025 End: 35-89-0196Eqvowc Alex Covarrubias MD Work Phone: [facility] ENDOCRINOLOGYStart: 01-18-2025 End: 29-67-9159Aloncq Alex Covarrubias MD Work Phone: [facility] ENDOCRINOLOGYStart: 01-18-2025 End: 82-68-3262Wampbu outpatient visit 40 minutesSong Covarrubias MD Work Phone: noms ENDOCRINOLOGYComment on above:Hyperthyroidism (CMS/HCC) (Primary Dx); Long-term current use of lithium; Hair loss; Palpitation; Multinodular goiter (CMS/HCC)Start: 01-18-2025 End: 92-39-8241bywkhgqfnwFCSSB F SABBAGHNot AvailableStart: 01-13-2025 End: 78-15-9744Aqbdrjh encounter procedurePHYSICIAN NO [facility]-Ul[facility]ound [place] Work Phone: Start: 01-13-2025 End: 27-71-8219ayafyojcfuYABAWOCRA NO [facility] Work Phone: Start: 66-53-4572Bhi-patient / Non-visitPHYSICIAN NO [facility] Work Phone: Start: 06-35-7300Slxsljreoj RecurringPHYSICIAN NO [facility]- CredibleStart: 12-14-2024 End: 31-93-5420Hwsuru Alex Covarrubias MD Work Phone: noms ENDOCRINOLOGYStart: 12-14-2024 End: 98-12-5736Pxzuvy Alex Covarrubias MD Work Phone: noms ENDOCRINOLOGYStart: 12-14-2024 End: 23-49-2091Gkdlgy outpatient new 45 minutesSong Covarrubias MD Work Phone: noMS ENDOCRINOLOGYComment on above:Hyperthyroidism (CMS/HCC) (Primary Dx); Long-term current use of lithium; Hair loss; PalpitationStart: 12-14-2024 End: 16-73-9622uuavuufsgoTZVNN Gilberto NACHODORASami AvailableStart: 72-82-3553Qot- patient / Non-visitPHYSICIAN [facility]St[facility] Work Phone: Start: 10-22-2024 End: 45-70-7569Pbw-admission assessmentHAMILTON MALONE [facility] Start: 10-22-2024 End: 57-35-5730adktftlrvrFLRVDME NKANSAH-LAMARRAFacility:EU [place]uskyStart: 78-97-9519dkvnyvnunvEIWFWJD NKANSAH-MARKFacility:EU NorlaceykStart: 08-18-2024 End: 63-97-9861Hlezxjbmo to same day surgery centerPHYSICIAN [facility] CampusStart: 08-18-2024 End: 32-17-8429stqyggpdusGIZNRVVMY [facility] Work Phone: Start: 08-18-2024 End: 34-21-3933gwbvyuybbjOTUJPEC NKANSAH-MARKFacility:CD:[id number]: 08-13-2024 End: 25-92-5422nqqrjqvgdeHFTSKPB NKANSAH-LAMARRAFacility:EU [place]kyStart: 08-13-2024 End: 75-81-5055Hihiebz encounter procedureHAMILTON MALONE [facility] Start: 27-61-7875Nrvxxirssr RecurringPHYSICIAN [facility]- CredibleStart: 08-06-2024 End: 45-92-2796quvsxnfewjPOUSRON NKANSAH-AMAUGUSTRAFacility:EU yStart: 08-06-2024 End: 64-55-7515Tgnqgyt encounter procedureHAMILTON MAHARAJ-LAMARRA [facility] Start: 07-30-2024 End: 47-57-0837xltovhitedPVNWZGM NKANSAH-AMAUGUSTRAFacility:EU uskyStart: 07-30-2024 End: 52-02-2936Ergxonc encounter procedureKCLAUDIA MAHARAJ-LAMARRA [facility] Start: 93-16-7234Vud-patient / Non-visitPHYSICIAN NO [facility] Work Phone: Start: 07-25-2024 End: 25-00-6236Cgptckxkhy and management of inpatientDO Ronobir Sonam MARIA Facility:[facility]tart: 84-92-0523Qub-patient / Non-visitPHYSICIAN NO [facility] Work Phone: Start: 23-01-2370Lwg-patient / Non-visitPHYSICIAN NO [facility] Work Phone: Start: 07-23-2024 End: 67-98-3363ykhajoofqwZXJBJJA NKANSAH-MARKFacility:EU yStart: 07-23-2024 End: 46-99-4447Houslhh encounter procedureHAMILTON MAHARAJ-MARK [facility] Start: 07-22-2024 End: 41-87-8367Zlnuufzfy to same day surgery centerHAMILTON MALONE [facility] Start: 07-22-2024 End: 88-19-7222tqyguddsluHKYUELE NKANSAH-NICOLAAUGUSTFacility:FTMCStart: 07-05-2024 End: 11-74-9474Zsb-admission assessmentHAMILTON MALONE [facility] Start: 07-05-2024 End: 62-74-1736ootdbrivpmKSHBTSF NKANSAHLAKSHMIAUGUSTRAFacility:EU NorkStart: 07-05-2024 End: 22-37-5474Hvvxfgz encounter procedureHAMILTON MAHARAJMADHU [facility] Start: 09-35-5840Aykadpg encounter statusPHYSICIAN NO [facility]ertart: 20-86-4146Ignfrvpqlyeqv examination donePHYSICIAN NO [facility] Centertart: 06-24-2024 End: 01-87-1725Vdqouvdtj to same day surgery halethorpeHAMILTON MALONE [facility] Start: 06-24-2024 End: 26-71-8155wcyuhtbyikBRSTCYP GILLIANLAKSHMIAUGUSTFacility:FTMCStart: 06-21-2024 End: 61-23-8236jvjgbcntzoBAT [facility] Work Phone: Start: 06-21-2024 End: 35-34-0610Frxavnzxm for other preprocedural examinationPHYSICIAN NO [facility] Hospitaltart: 06-21-2024 End: 39-02-0699Degnpiv encounter procedureAmanda Liz TABLE TOP TILE SETTER Work Phone: [facility] Work Phone: Start: 06-18-2024 End: 54-06-6958fkrunamuctVAYPXGZ NKANSAH-AMANKRAFacility:FTMCStart: 06-18-2024 End: 41-42-2424Mriwfjm encounter procedureKWABESHANE NKPUJAAH-AMANKRA [facility] Start: 78-18-8023Epbogiijgm [facility] TABLE TOP TILE SETTER Work Phone: [facility]- CredibleStart: 06-11-2024 End: 13-34-9980ilgccneaarWYGUDGW NKANSAH-AMANKRAFacility:EU [place]kyStart: 06-11-2024 End: 04-74-1248Cwofyab encounter procedureKWABENA NKANSAH-AMANKRA [facility] Start: 06-04-2024 End: 53-33-7675Jgrietnn [facility] TABLE TOP TILE SETTER Work Phone: [facility] Work Phone: Start: 06-04-2024 End: 11-69-6226iyqyfsvzegESCXQNHAS NO [facility] Work Phone: Start: 06-04-2024 End: 83-77-9423Arymztk encounter procedurePHYSICIAN NO [facility] Work Phone: Start: 26-10-9884Ibw-patient / Non-visitPHYSICIAN NO [facility] CENTERRoquenathaliedeepak [facility] Work Phone: Start: 05-25-2024 End: 51-47-8031bgagrezjfsYSDCZJHK E PERRYFacility:EU [place]vueStart: 05-25-2024 End: 77-27-4166Lrofunp encounter procedureJENNIFER E MARK [facility] [place] start: 05-19-2024 End: 66-71-5552Zcfxkqwb ReferredPHYSICIAN NO [facility]-Lab [place] Work Phone: Start: 05-19-2024 End: 28-97-7406prjhalygcbEEAGINHEI NO [facility] Work Phone: Start: 05-19-2024 End: 24-63-4415Ioshiou encounter procedurePHYSICIAN NO [facility] [place] Work Phone: Start: 05-04-2024 End: 69-31-9800Hotcgzcyb Result EncounterFaiza BURTON Work Phone: noms External Department UnsolicitedStart: 05-04-2024 End: 28-65-6643Bpvywiivc Result EncounterFaiza BURTON Work Phone: noms External Department UnsolicitedStart: 05-04-2024 Non-patient / Non-visitPHYSICIAN NO [facility]St[facility] Work Phone: Start: 08-38-8621Aaohxnppls RecurringPHYSICIAN NO [facility]- CredibleStart: 04-21-2024 End: 68-83-2523Mvtdbe flowsheetFaiza BURTON Work Phone: noms BCP OBStart: 04-21-2024 End: 20-55-1888Nafkmtyjc Result EncounterFaiza BURTON Work Phone: noms External Department UnsolicitedStart: 04-21-2024 End: 93-71-5111Bzliumgo Result EncounterFaiza BURTON Work Phone: noms External Department UnsolicitedStart: 04-21-2024 End: 00-75-7415Rtgazukv Result EncounterFaiza BURTON Work Phone: NODR External Department UnsolicitedStart: 04-21-2024 Non-patient / Non-visitPHYSICIAN NO [facility] Work Phone: Start: 04-21-2024 End: 42-51-8486sazmmzzhdbJLL JOVANIKayden AvailableStart: 04-21-2024 End: 81-31-5894Gnynuyt encounter procedureFaiza BURTON Work Phone: NOIJ HealthcareStart: 04-21-2024 End: 26-72-7037Nkdukavc preventive med est patient 40-64yrsAmy Tanesha BURTON Work Phone: NODB BCP OBComment on above:Exposure to STD; Vaginal discharge; Hormone imbalance; Sexually transmitted disease exposure; Well woman exam with routine gynecological exam; Breast cancer screening by mammogram; Postmenopausal stateStart: 17-29-8287Lgv-patient / Non-visitPHYSICIAN NO [facility] Work Phone: Start: 02-26-2024 End: 55-88-8230oiysgjyrikBfgjjg J GaleaFacility:EU ueStart: 02-26-2024 End: 32-12-2534Rxacwaf encounter procedureAlyskathleen Henderson [facility] start: 01-30-2024 End: 38-96-8250bjizusxdhaBBOHVNWEV [facility] Work Phone: Start: 01-30-2024 End: 43-25-7233Rmlimiu encounter procedurePHYSICIAN NO [facility] Work Phone: Start: 01-14-2024 End: 64-54-0928wqlbjouhagNqtrmjp R NILLFacility:GS BellevueStart: 01-14-2024 End: 62-75-9189Dtfdvky encounter procedureMichael R NILL [phone]-[facility] [place] Start: 49-75-7585cbuftqrltrMblgzxz R NILLFacility: BellevueStart: 12-31-2023 End: 73-53-8764vwevhbszjsYZLUOYTEH [facility] Work Phone: Start: 12-31-2023 End: 90-37-7192Duxoycyi ReferredPHYSICIAN [facility]-LAB Path Spec [facility] HospStart: 12-31-2023 End: 48-77-7883wgbbouztapYhznwih R NILLFacility:CD:[id number]: 12-09-2023 Registered RecurringPHYSICIAN [facility]- CredibleStart: 11-19-2023 End: 21-72-0148wffcwkzlliGwlcnxo R NILLFacility: BellevueStart: 11-19-2023 End: 90-19-0147Abbozze encounter procedureMichael R NILL General Surgery Nill/Said Suhail Start: 08-09-3012Kls-patient / Non-visitPHYSICIAN [facility] GroupSt[facility] Work Phone: Start: 13-74-4078tsxivacdacDzcmvuv NILLFacility: [place]vueStart: 04-14-5232igdkzloztvEoawfuk NILLFacility: NorwalkStart: 11-12-2023 End: 90-67-1932flcgpgbucbLNDLHPZJQ [facility] Work Phone: Start: 11-12-2023 End: 33-14-5337Mdlsbbu encounter procedurePHYSICIAN [facility] GroupClearSky [facility] Work Phone: Start: 65-78-3073Ijnzxkulzs RecurringPHYSICIAN [facility]- CredibleStart: 38-58-1814Vriufeo encounter statusPHYSICIAN NO [facility]ertart: 10-22-2023 End: 11-91-9223Glfsoquxd for general adult medical examination without abnormal findingsPHYSICIAN NO [facility] Centertart: 10-22-2023 End: 44-06-0971Wyxnzet encounter procedurePHYSICIAN NO [facility] Work Phone: Start: 32-64-8827Ztmwpwzsjb RecurringPHYSICIAN NO [facility] CredibleStart: 05-30-2023 End: 51-83-0686ljxpcstkhjKgpd Braun Other noKyte [employer] Other start: 78-59-4174Dghwmeoue encounterHelio Mckay Referral CoordinatorStart: 40-64-4935Fmqraz outpatient new 30 minutesDaclaudia Barry [facility] NeurosurgeryStart: 05-29-2023 End: 34-29-8637yegyadruyhGN Seb Barry Work Phone: [facility] Work Phone: Start: 05-29-2023 End: 88-99-5712Ecgldvr encounter procedureMD Seb Barry Work Phone: [facility]-XRay Main [place] Work Phone: Start: 05-16-2023 End: 56-07-3944xyfhwqpafxGrlbra Braun Other [employer] Other Start: 65-26-4803Klopswcjp encounterSeb Higgins [facility] Northwesttart: 05-05-2023 End: 67-38-6990jebcftbiehEahlbp Braun Other noAr[employer] Other Start: 71-50-2732Aordwt outpatient visit 15 minutes Seb Higgins [facility] Northwesttart: 04-07-2023 End: 64-36-4449thenxovmajElatug Asha Other [employer] Other Start: 69-47-8103Gtyamcxmj encounterSeb [facility] Centertart: 04-01-2023 End: 00-77-1686hcgpwrglvrXdyrkh Barry Other noArcametrics Systems, [employer] Other Start: 70-92-1859Ghpykz outpatient visit 15 minutes Seb Gisela [facility] Northwesttart: 29-14-3608xtuqpnpgunCRPCKE FELTER Facility:C3Dcell: 12-23-2022 End: 14-80-4081ckcjgivudqDetokr Belen Other noArcametrics Systems, [employer] Other Start: 13-06-6154Kntptb outpatient new 45 minutes Goldy GloverDIGNITY HE[facility] Pain Management [place] CreekStart: 09-42-2941Osfcqlzfn encounter Seb AshaMLJie [facility] Northwesttart: 12-06-2022 End: 11-33-2895jxjfwadfcoZL SEB BARRYHarpers Ferry [employer] Other Start: 11-26-2022 End: 27-41-0396vdobcfzlbfCXEXZ SPROUTFacility:Y6Wfmdp: 11-14-2022 End: 64-00-8321zbkonmvdtqMO SEB BARRYFacility:P0Trhju: 76-93-5579Biowutyos for general adult medical examination without abnormal findingsDR SEB BARRY [facility] Hospitaltart: 05-15-2022 End: 79-89-2857tpkdolcttzVI SEB BARRYFacility:E5Eobfu: 05-15-2022 End: 06-21-0625Zncodnktk for general adult medical examination without abnormal findingsDR SEB Arellanocility:J0Ypscl: 10-27-6847Aadyh health examination Seb Barry Other [employer] Other Start: 04-18-2022 End: 81-82-2930caadvmaiqvEwovlk Yoel Other [employer] Other Start: 49-11-6939Kjbnmqvot encounterAnupam JhaFPG PsychiatryStart: 02-27-2022 End: 44-50-5938acexviyasuVztohv Yoel Other [employer] Other Start: 31-91-9685Afwunmmdt encounterAnupam JhaFPG Referral CoordinatorStart: 85-58-8683hqajrgoeicRTYHFH JHAFacility:X7Uskzf: 12-13-2021 End: 37-09-3768lbxtqrxjcmKteztb Yoel Other [employer] Other Start: 53-44-4493Ydrojoibi encounterAnupam JhaFPG PsychiatryStart: 09-19-2021 End: 08-06-5108lzwkteefyxOdzjpa Yoel Other [facility] [employer] Other Start: 77-44-7696Oqxzxdojy encounterAnupam JhaF PsychiatryStart: 09-05-2021 End: 39-60-7207ghrmpruubpVwhime Yoel Other [employer] Other Start: 02-89-3296Gllqlylvj encounterAnupam [facility] Procedures DateProcedureProcedure DetailPerforming ClinicianStart: 33-69-0355Muegdicpswmc thyroid imagingPHYSICIAN NO FAMILYStart: 78-61-5618OY scan of thyroidPHYSICIAN NO FAMILYStart: 47-29-4005ItfjjfyunyMFKWAWHEN NO FAMILYStart: 07-22-2024 CystoscopyKCLAUDIA OnKure-AMANKRA Start: 65-62-2636AlvjkixijeNFCXOZN NKANSAH-AMANKRA Start: 48-96-4112Rxpfy Dale Thomasb TABLE TOP TILE SETTER Work Phone: Start: 72-11-4699Seeuummj identified in Urine by CulturePHYSICIAN NO FAMILYStart: 82-82-3722Kegvf cultureAmanjoana Thomasb TABLE TOP TILE SETTER Work Phone: Start: 97-73-1600XYQ AB/P24 AG WITH REFLEXFaiza BURTON Work Phone: Start: 35-07-1945UWR,APTIMA HPV,AGE GDLNAmy Tanesha BURTON Work Phone: Start: 04-21-2024 End: 40-75-6584Cjmejmottop observation [Identifier] in Cervix by Cyto stainFaiza BURTON Work Phone: Start: 28-73-6215IGZIPAAOHI/DISCHARGE PLUS VAGINITIS (HTRX)Faiza BURTON Work Phone: Start: 72-85-8188I-ray of lumbar spine, six views including bending viewsMD Seb Barry Work Phone: Start: 84-58-8130DuaorpouodkUai Ramey PA Work Phone: H/O: surgeryStatus post surgeryPHYSICIAN NO FAMILY History of augmentation of breastJENNIFER MARK History of bilateral breast implantsMichael NILL History of nasal sinus surgeryMichael NILL Ligation of fallopian tubeMichael NILL Screening for malignant neoplasm of breastMarcia Asha Other Screening for malignant neoplasm of colonMarcia Asha Other StapedectomyMichael NILL Plan of Treatment DateCare ActivityDetailAuthorStart: 71-00-4441Vhhgyfxexia Syncytial Virus (RSV) or age 60 yrs+ (1 - 1-dose 75+ series)Respiratory Syncytial Virus (RSV) or age 60 yrs+ (1 - 1-dose 75+ series)[facility] Centerart: 43-61-1047TBnN/Tdap/Td vaccine (2 - Td or Tdap)DTaP/Tdap/Td vaccine (2 - Td or Tdap)[facility] Centerart: 08-37-5283Mcczihcbc for malignant neoplasm of cervixNOID HealthcareStart: 08-30-2025 End: 36-64-8464Hniwfqf encounter csgfgziqp44/20/2026 8:15 AM EST Office Visit NOMDeepak [facility] [address] [place], [id number] Scooby Fitzgerald DO [address] [place] [place] [address] LUPIS Albarado OtolaryngologyStart: 04-25-2025 End: 78-12-7388Detrwgd encounter procedureNOMS BCP OBStart: 04-19-2025 End: 01-44-3839Fksakwl encounter jpxbmtlmo46/09/2025 10:20 AM EDT Office Visit [facility] [address] [place] [phone] Song Covarrubias MD [address] [place] [address] NOMDeepak NOVAK ENDOCRINOLOGYStart: 11-06-5817Cavtllbaa vaccinationNOID HealthcareStart: 03-31-2025 End: 46-70-7458Wloxooq encounter /21/2025 10:50 AM EDT Office Visit NOMDeepak [facility] Endocrinology [address] [place] [phone] Song Covarrubias MD [address] [place] [address] LUPIS Albarado EndocrinologyStart: 03-21-2025 End: 26-52-4491Myeoxaf encounter ckswwmymg10/11/2025 9:00 AM EDT [facility] [address] [place] [address] Alla Tran PTAMTHZ Physical TherapyStart: 03-14-2025 End: 87-36-1490Fbkhzqg encounter wrtdahxrr27/04/2025 9:00 AM EDT [facility]ointment [facility] [address] [place] [address] Alla Tran PTAMTHZ Physical TherapyStart: 38-69-3152ijtomzdpoqZefqhxaccnRqqzh [facility] HospitalStart: 17-02-1856Kovcuqlhx vaccinationFlu vaccine (#1)[facility]Start: 03-09-2025 End: 88-32-5494Tjfopev encounter ncyxyzxvu51/30/2025 11:15 AM EDT [facility]ment [facility] [address] [place] [address] Alla Tran PTAMTHZ Physical TherapyStart: 02-28-2025 End: 66-97-4947Tmpdssy encounter ajdpgvhfr42/21/2025 11:15 AM EDT [facility]ointment [facility] [address] [place] [address] Alla Tran PTAMTHZ Physical TherapyStart: 02-22-2025 End: 28-00-6602Rmmlopr encounter quhreleoe51/15/2025 8:00 AM EDT Office Visit NOMS DHAVAL [place]BAR[place] [address] [place] [phone] Scooby Fitzgerald, [address] [place] [address] ArrivedNOMS DHAVAL SCHNEIDERomment on above:ArrivedStart: 02-21-2025 End: 60-95-0485Etsidtb encounter ytpdpttbn60/14/2025 3:45 PM EDT [facility]ment [facility] [address] [place] [address] Alla Tran PTAMTHZ Physical TherapyStart: 02-08-2025 End: 08-66-2964Wiviapu encounter bszzmzisl92/01/2025 10:00 AM EDT Office Visit NOMS [facility] [place] [address] [place] [phone] Scooby Fitzgerald, [address] [place] [address] Multinodular goiterNOMS ENT SANDUSKYComment on above: Multinodular goiterStart: 01-18-2025 End: 93-79-5700Udbbprf function 2000 panel - Serum or PlasmaHepatic function panel Lab Routine Hyperthyroidism ([facility]/HCC) Expected: 01/18/2025 (Approximate), Expires: 01/18/2026[facility] HealthcareComment on above:Expected: 01/18/2025 (Approximate), Expires: 01/18/2026Start: 01-18-2025 End: 37-99-6670Lldgxzljxmm [Units/volume] in Serum or PlasmaTSH Lab Routine Hyperthyroidism ([facility]/HCC) Expected: 01/18/2025 (Approximate), Expires: 01/18/2026[facility] HealthcareComment on above:Expected: 01/18/2025 (Approximate), Expires: 01/18/2026Start: 01-18-2025 End: 76-06-2226Ngpadnuwh (T4) free [Mass/volume] in Serum or PlasmaT4, free Lab Routine Hyperthyroidism ([facility]/HCC) Expected: 01/18/2025 (Approximate), Expires: 01/18/2026[facility] HealthcareComment on above:Expected: 01/18/2025 (Approximate), Expires: 01/18/2026Start: 01-18-2025 End: 16-01-5738Llfmgrlkuonqsnyh (T3) Free [Mass/volume] in Serum or PlasmaT3, free Lab Routine Hyperthyroidism ([facility]/HCC) Expected: 01/18/2025 (Approximate), Expires: 01/18/2026[facility] Healthcare Work Phone: Comment on above:Expected: 01/18/2025 (Approximate), Expires: 01/18/2026Start: 01-18-2025 End: 58-94-8497Ajgrmpp encounter qzepzksnd80/10/2025 10:00 AM EDT Office Visit [facility] [address] [place] [address] Song Covarrubias MD [address] [place] [address] ArrivedNOFULTON MEDICAL CENTER- [facility]ULTON ENDOCRINOLOGYComment on above:Arrived Start: 69-40-1413Timsfrqnmdgg thyroid imagingMadison Health Start: 12-14-2024 End: 84-32-9206Baysucr function 2000 panel - Serum or PlasmaHepatic function panel Lab Routine Hyperthyroidism ([facility]/HCC) Expected: 12/14/2024 (Approximate), Expires: 12/14/2025[facility] HealthcareComment on above:Expected: 12/14/2024 (Approximate), Expires: 12/14/2025Start: 12-14-2024 End: 67-06-7375OU Thyroid gland UptakeNuclear Medicine thyroid uptake and scan Imaging Routine Hyperthyroidism (CMS/HCC) Expected: 12/14/2024, Expires: 12/14/2025[facility] HealthcareComment on above:Expected: 12/14/2024, Expires: 12/14/2025Start: 12-14-2024 End: 27-24-9315Qkbtnlwoxwbgl AntibodyThyroglobulin Antibody Lab Routine Hyperthyroidism (CMS/HCC) Expected: 12/14/2024 (Approximate), Expires: 12/14/2025[facility] Healthcare Work Phone: Comment on above:Expected: 12/14/2024 (Approximate), Expires: 12/14/2025Start: 12-14-2024 End: 88-28-6648Ltlbzig peroxidase antibodyThyroid peroxidase antibody Lab Routine Hyperthyroidism (CMS/HCC) Expected: 12/14/2024 (Approximate), Expires: 12/14/2025[facility] HealthcareComment on above:Expected: 12/14/2024 (Approximate), Expires: 12/14/2025Start: 12-14-2024 End: 24-58-1502Kjgtwkdrlig [Units/volume] in Serum or PlasmaTSH Lab Routine Hyperthyroidism (CMS/HCC) Expected: 12/14/2024 (Approximate), Expires: 12/14/2025[facility] HealthcareComment on above:Expected: 12/14/2024 (Approximate), Expires: 12/14/2025Start: 12-14-2024 End: 18-86-5959Yhkdtdxtxqb receptor antibodyThyrotropin receptor antibody Lab Routine Hyperthyroidism ([facility]) Expected: 12/14/2024 (Approximate), Expires: 12/14/2025[facility] HealthcareComment on above:Expected: 12/14/2024 (Approximate), Expires: 12/14/2025Start: 12-14-2024 End: 55-39-6324Wtzmyddqn (T4) free [Mass/volume] in Serum or PlasmaT4, free Lab Routine Hyperthyroidism ([facility]) Expected: 12/14/2024 (Approximate), Expires: 12/14/2025[facility] HealthcareComment on above:Expected: 12/14/2024 (Approximate), Expires: 12/14/2025Start: 12-14-2024 End: 57-25-1112Ypxdvhgnzphpznmx (T3) Free [Mass/volume] in Serum or PlasmaT3, free Lab Routine Hyperthyroidism ([facility]) Expected: 12/14/2024 (Approximate), Expires: 12/14/2025[facility] HealthcareComment on above:Expected: 12/14/2024 (Approximate), Expires: 12/14/2025Start: 12-14-2024 End: 06-16-2736KU Thyroid glandUS thyroid Imaging Routine Hyperthyroidism ([facility]) Expected: 12/14/2024, Expires: 12/14/2025[facility] HealthcareComment on above:Expected: 12/14/2024, Expires: 12/14/2025Start: 12-14-2024 End: 08-51-7188Fqgrxsk encounter /06/2025 10:20 AM EDT Office Visit [facility] ENDOCR[facility] [address] [place] [address] Song Covarrubias MD [address] [place] [address] [facility]NOFULT[facility]- [facility] ENDOCRINOLOGYComment on above:Arrived Start: 08-18-2024 End: [id number]ca Bay Park Hospitaltart: 18-50-9487Lcduj culture [facility]: 44-07-5064Ysqijkrj identified in Urine by CultureUrine CultureProMedica Bay Park Hospitaltart: 53-48-7244[facility] Hospital[facility]: 04-21-2024 End: 39-80-3088ZIZ Skeletal system Views for bone densityDEXA bone density Imaging Routine Postmenopausal state Expected: 04/21/2024 (Approximate), Expires:04/21/2025NOID HealthcareComment on above:Expected: 04/21/2024 (Approximate), Expires: 04/21/2025Start: 04-21-2024 End: 54-09-3773JF Breast - bilateral ScreeningBilateral screening mammogram Imaging Routine Breast cancer screening by mammogram Expected: 04/21/2024, Expires: 06/21/2025NOID HealthcareComment on above:Expected: 04/21/2024, Expires: 06/21/2025Start: 84-03-7775MRSFP-19 Vaccine ( season)COVID- 19 Vaccine ( season)[facility]: [facility] Influenza vaccinationInfluenza Vaccine (#1)[facility] HealthcareStart: 11-12-2023 [facility] Work Phone: Start: 15-01-6770Bgevnngks for malignant neoplasm of breastMammogramNOID HealthcareStart: 19-21-3797Cgzfzhmrskfw 50+ years Vaccine (1 of 1 - PCV)Pneumococcal 50+ years Vaccine (1 of 1 - PCV)[facility]: 92-41-6259Tatkcfyt vaccine (1 of 2)Shingles vaccine (1 of 2)[facility]Start: 52-91-9741Vidcfvcqn for malignant neoplasm of colon [facility] HospitalStart: 18-99-6194Zefgw panelLipidsBon Martins Ferry HospitalStart: 55-37-4225Onoqafioj for malignant neoplasm of breastBreast cancer screenBon Secours Memorial Regional Medical Centerart: 49-12-2164Cdfxzgxec for malignant neoplasm of cervixNOID HealthcareStart: 58-33-0728Zejoqomef for malignant neoplasm of cervixPap SmearChildren's Mercy NorthlandStart: 37-65-8446Pwoopenwm C screeningHepatitis C screenBon Secours [facility]: 60-78-5919SLS screeningHIV screenBon Secours Maryview [facility] Center: 92-57-0434Znrujqgicm ScreenDepression ScreenBon Secours Maryview [facility] Center: 35-96-1506Toaygunah for malignant neoplasm of colon [facility] Mercy NorthlandCHLAMYDIA TRACHOMATIS (GENITO/STI)CHLAMYDIA TRACHOMATIS (GENITO/STI) Lab Routine Exposure to STD Vaginal discharge Ordered: 04/21/2024 [facility] HealthcareComment on above:Ordered: 04/21/2024Hepatitis B virus surface Ag [Presence] in Serum or Plasma by ImmunoassayHepatitis B surface antigen Lab Routine Sexually transmitted disease exposure Ordered: 04/21/2024[facility] Healthcare Comment on above:Ordered: 04/21/2024HIV-1/HIV-2 antigen/antibody combination immunoassayHIV-1 and HIV-2 antibodies Lab Routine Sexually transmitted disease exposure Ordered: 04/21/2024[facility] HealthcareComment on above:Ordered: 04/21/2024 MG Breast - bilateral DiagnosticMadison HealthMG Breast - bilateral ScreeningMadison HealthNeisseria gonorrhoeae DNA [Presence] in Unspecified specimen by LILLY with probe detectionNeisseria gonorrhea DNA probe, direct Lab Routine Exposure to STD Vaginal discharge Ordered: 04/21/2024[facility] HealthcareComment on above:Ordered: 04/21/2024[facility] EducationM[facility] Hospital Work Phone: [facility] Hospital Work Phone: Reagin Ab [Presence] in Serum by RPRRPR Lab Routine Sexually transmitted disease exposure Ordered: 04/21/2024[facility] HealthcareComment on above:Ordered: 04/21/2024SURESWAB(R) ADVANCED VAGINITIS PLUS, TMASURESWAB(R) ADVANCED VAGINITIS PLUS, TMA Pathology and Cytology Routine Exposure to STD Vaginal discharge Ordered: 04/21/2024[facility] Work Phone: comment on above:Ordered: 04/21/2024THIN PREP TIS PAP AND HR HPV DNATHIN PREP TIS PAP AND HR HPV DNA Pathology and Cytology Routine Well woman exam with routine gynecological exam Ordered: 04/21/2024[facility] HealthcareComment on above:Ordered: 04/21/2024 Immunizations Immunization DateImmunizationNotesCare GfyuulmpXiixucdw95-36-6439dxjyvtveu virus vaccine, unspecified formulationMichael NILL 030-3488Gzvpbg-Fxmcx[facility] [place] 84-55-2371smycfhcuc, injectable, quadrivalent, preservative freeSeb Barry Other [facility]07-12-2022diphtheria, tetanus toxoids and acellular pertussis vaccine, unspecified formulationSeb Barry Other [facility]07-12-2022tetanus toxoid, reduced diphtheria toxoid, and acellular pertussis vaccine, adsorbed Seb Barry Other [facility]12-28-2021COVID-19 Vaccine Moderna - Documentation Purposes Elizabeth Barry Other [facility]10-18-2021influenza virus vaccine, split virus (incl. purified surface antigen)Seb Barry Other [place] [employer] Other 500813-44-0170bcdsbvupi virus vaccine, unspecified formulationPHYSICIAN [facility]10-18-2021 influenza, injectable, quadrivalent, preservative freeBenjamin Murlondonk DO Work Phone: [facility] Mercy NorthlandAonmohufnh23-72-7970JHWHL-24 Vaccine Moderna - Documentation Purposes Elizaebth Barry Other [facility]04-03-2021COVID-19 Vaccine Moderna - Documentation Purposes Elizabeth Barry Other [facility] Payers DatePayer CategoryPayerPolicy [id number] Health [id number] Health Insurance [id number] Care HMO (unspecified) 1.2.840.591052.1.13.693.2.7.3.458[id number] 2.16.840.1.338040.3.57[id number] 2.16.840.1.326893.3.57[id number] 2..840.1.029996.3.57[id number] 2.16.840.1.173022.3.57[id number] 2.16.840.1.293492.3.57[id number] 2.16.840.1.195424.3.579.2.95407-17-5450Mqyfnws01038935 2.16.840.1.126385.3.579.2.95088-97-7976Vpjalmq86787066 2.16.840.1.950806.3.579.2.49783-82-0520Votmpca08760058 2.16.840.1.842618.3.579.2.574 [id number] 2.16.840.1.886283.3.57[id number] 2.16.840.1.793222.3.579.2.08574-64-8965Dfqwkhk27528140 2.16.840.1.695458.3.579.2.18889-31-4577Omiinhg03827448 2.16.840.1.990248.3.579.2.81992-45-7050Bfdryeb74698635 2.16.840.1.628026.3.579.2.76872-76-9156Chmmggq82410817 2..840.1.244231.3.579.2.05527-27-5614Zzesyhq97217356 2..840.1.524906.3.579.2.04755-88-6403Zwirgle25183113 2.840.1.826737.3.579.2.77815-26-9212Hebzuha92050022 2..840.1.287039.3.579.2.51976-50-6629Sehnhlq58890614 2..840.1.370319.3.579.2.64176-41-6141Thizslj72357199 2..840.1.557970.3.579.2.89537-96-6894Djginxb73629601 2..840.1.679620.3.579.2.19038-72-8611Icucday41170753 2..840.1.906982.3.579.2.34887-04-6216Mifgeej34365212 2.16.840.1.432409.3.579.2.92551-91-5913Jervpub05102184 2.16.840.1.246922.3.579.2.90928-61-2451Haacdww34976080 2.840.1.319248.3.579.2.46137-29-5010Ygeufsc11786039 2.840.1.145776.3.579.2.39582-19-4926Esezdmo39160872 2.840.1.676906.3.579.2.17599-46-6633Dcjdbpn14075774 2.840.1.619468.3.579.2.58041-26-1067Fibmxoh18412737 2.0.1.822147.3.579.2.178707-45-5614Bsmcwra13451433 2.0.1.992777.3.579.2.466490-37-7881Wgsopzt53602414 2.0.1.863182.3.579.2.900489-34-2476Gweynmb71297229 2.0.1.098460.3.579.2.715781-21-7212Kncgdzt3668635 2.0.1.105784.3.579.2.574297-50-2293Dajfnaf6778711 2..1.553305.3.579.2.468005-77-2471Edcibqn86294511 2.0.1.036802.3.579.2.13012-81-9510Lizrakf21780668 2.0.1.339926.3.579.2.84279-32-7106Ufmzjoz87279741 2.840.1.869306.3.579.2.15702-03-8955Ieclzec73746586 2.840.1.615502.3.579.2.54197-73-1909Tiremjr Health ZmqifsaefO667237933 2.16.840.8.418368.86462466-80-3749Astoivi Health Edslbydoz2973186-25-6596Bnsl-sry Blue Cross Blue Judrxk30778576O 2.16.0.1.336843.19Private Health Insurance [id number] 2.16.840.1.939800.3.579.2.160Eqeanqg64299782 2.16.840.1.654601.3.579.2.190Iwsizzm77435924 2.16.840.1.530085.3.579.2.531 Social History DateTypeDetailFacilityStart: 02-08-2025 End: 63-60-7289Ava [facility]igned At [facility]tart: 24-98-1215Kev Assigned At [facility] Hospitaltart: 05-29-2023 End: 70-08-0903Fdbyhwp smoking status NHISNever smoked tobacco (finding) [facility] smoking statusNeverGeneral Surgery BellevueStart: 06-21-2024 End: 40-19-8049FkmFcxxwr (finding)[facility] smoking status NHISTobacco smoking consumption unknownNOMS HealthcareStart: 08-74-9040Xyi assigned at birthNot on fileUNIVERSITY OF UTAH HOSPITAL HealthcareSexual Orientation [facility] Start: 64-51-5197NyrXueclqg sex unknown (finding) [facility] Hospitaltart: 70-97-8176Vzmfaqg use and exposure Smokeless tobacco non-userNOMS HealthcareStart: 02-08-2025 End: 82-77-2838Ggwiinepb beverage intakeEx-drinker (finding)[facility] Healthcare Start: 02-08-2025 End: 57-14-4918Nkfltoq of Social functionNOID Healthcare Medical Equipment Procedure CodeEquipment CodeEquipment Original TextEquipment IdentifierDatesTVT SUDHAKAR MALONE MD, HAMILTON 07/22/24 Unknown OtherFDAStart: 86-81-0353QPJ SUDHAKAR MALONE MD, HAMILTON 07/22/24 Unknown OtherFDAStart: 83-63-7876PKO SUDHAKAR MALONE MD, HAMILTON 07/22/24 Unknown OtherFDAStart: 37-92-4484NSA SUDHAKAR MALONE MD, HAMILTON 07/22/24 Unknown OtherFDAStart: 15-69-2139YGA SUDHAKAR MALONE MD, HAMILTON 07/22/24 Unknown OtherFDAStart: 43-08-8590VOY SUDHAKAR MALONE MD, HAMILTON 07/22/24 Unknown OtherFDAStart: 75-14-7881PJV SUDHAKAR MALONE MD, HAMILTON 07/22/24 Unknown OtherFDAStart: 72-34-1825GIP SUDHAKAR MALONE MD, HAMIL[place] 07/22/24 Unknown OtherFDAStart: 07-22-2024 Goals DatePatient GoalDesired Activity/State Functional Status MxrpUtalutlucrOgcqqhAjqbpqha82-10-3227Xbfrrnjxtb StatusSymptomatic After Exposure to Contagion Telehealth PatientExecutive [facility]rology [facility]12-27-2024Functional StatusN/AExec[facility]12-20-2024Functional StatusN/AExec[facility]12-15-2024Functional StatusNo [facility]11-26-2024Functional StatusNo[facility]11-25-2024Functional StatusN/A[facility]11-08-2024Functional StatusMer[facility] 22-24-2203Cladntnspq StatusN/AExec[facility]10-15-2024Functional StatusN/AExec[facility] of [facility]04-10-2024Functional StatusN/AGeneral Surgery [facility] Clinical Notes 12-13-2021 to 07-29-2025 Note Date & KijdUqpvWjxcqdsu78-66-5784 History of Present illness Narrative* Scooby Fitzgerald DO - 03/08/2025 8:45 AM EDT HPI Patient presents today status post FNA of a left inferior thyroid nodule. This initially came back as Baxter III, then was sent for ThyroSeq testing which came back at less than 3 percent chance ofmalignancy. I made the patient aware of that. Relevant postoperative physical examination Unremarkable Assessment/plan Rain was seen today for thyroid nodule. Diagnoses and all orders for this visit: Thyroid nodule (Primary) Comments: I recommend repeating the ultrasound in my office in 6 months. She needs to follow-up with Dr. Yeager about her hyperthyroidism. documented in this encounterChildren's Mercy NorthlandYvbspgchso16-11-9861 History of Present illness Narrative* Scooby Fitzgerald DO - 02/22/2025 8:00 AM EDT Subjective Patient ID: DANITA Presents today for FNA of a left inferior thyroid nodule. Informed consent was obtained. She also brings to my attention that she has sleep apnea. She has never undergone a formal sleep study howevershe has been noted to have obvious apnea [...] The skin above the nodule was anesthetized withan injection of 1% xylocaine with epi. The [...] will get that ordered. documented in this encounterChildren's Mercy NorthlandOgjxtlqpbp77-41-7681 History of Present illness Narrative* Albertina Luna - 02/21/2025 3:45 PM EDT Physical Therapy [facility] Inpatient/Observation/Outpatient Rehabilitation Date: 02/21/2025 Patient Name: Rain Sweeney [] Inpatient Acute/Observation [x] Outpatient : 1960 Plan of Care/Recert ends [] Pt refused/declined therapy at this time due to: [x] Pt cancelled due to: [] No Reason Given [] Sick/ill [x] Other: said she wasn't going to make itin time [] Evaluation held by RN/Provider/Physical Therapist due to: [] High Heart Rate [] High Blood Pressure [] Orthopedic Consult [] Hgb < 7 [] Other: [] Pt ordered brace per physician request: [] Proper fit will be completed and education for wearing/skin checks [] Pt does not require skilled services due to: Therapist/Event Planner will attempt to see this patient, at our earliest opportunity. Albertina Luna Date: 02/21/2025 Cosigned by Alla Tran PTA at 02/21/2025 3:37 PM EDT documented in this encounterBon Martins Ferry [facility]07-01-2025 History of Present illness Narrative* Scooby Fitzgerald, DO - 02/08/2025 10:00 AM EDT Subjective Patient ID: HPI Patient is a 64-year-old female referred by Dr. Covarrubias for toxic multinodular goiter. Patient is along-time lithium user. She stopped her Tapazole couple [...] that nodule is cold. Patient has no personalrisk factors for thyroid cancer, no pertinent family [...] in the near future documented in this encounterChildren's Mercy NorthlandJwkribpbcp29-80-9545 Evaluation note* Diagnosis Onset Date Resolution Status Admit Date Abnormal TSH acuteJune 2024 9:51amOverweight with body mass index (BMI) of 28 to 28.9 in adultacuteJune 2024 9:51amRectoceleacuteJune 2024 9:51amScreening mammogram for breast canceracuteAtrium Healthe 2024 9:51am [facility] Work Phone: 1(365) 340-917606-10-2025 History of Present illness Narrative* Song Covarrubias [...] she attributes to her long-term lithium use. [place] has been part of her treatment regimen [...] up in 3 months. documented in this encounterChildren's Mercy NorthlandGommiyrats50-59-2616 Radiology Diagnostic study [facility] [address] [place] [address] Ultrasound Report Signed Patient: Rain Sweeney MR#: [id number] : 1960 Acct:[id number] Age/Sex: 64 / F ADM Date: 5 Loc: Room: Type: [facility] Attending Dr: Song Covarrubias MD Ordering [...] Kellogg M.D. 01/13/2025 9:02 AM Dictation Location: [place] [address] Tech: Nara Heaton Transcribed By: BRYSON 01/13/25901 Dictated By: Denae Kellogg MD 01/13/25899 Signed By: 01/13/25901 [facility] Work Phone: 1(819) 739-613705-06-2025 History of Present illness Narrative* Song Covarrubias [...] she attributes to her long-term lithium use. [place] has been part of her treatment regimen [...] up in 2 weeks. documented in this encounterChildren's Mercy NorthlandAbzllygkjb33-85-9647 NotePatient Education Obstetrics and Gynecology Acute Urinary [...] these instructions at home: Medicines ??? Take whsq-zvq-bpcnzhv and prescription medicines only as told by [...] provider. Document Revised: 04/18/2021 Document Reviewed: 04/18/2021 [employer] Patient Education ? 2023 [employer] 08-13-2024 Hospital Discharge instructions Patient Education [...] including vitamins, herbs, eye drops, creams, and tbsw-drm-gtplsdl medicines. Any problems you or family members [...] provider tells you to take them. Taking kqvk-mlk-hgushst medicines, vitamins, herbs, and supplements. Surgery safety [...] provider. Document Revised: 03/02/2021 Document Reviewed: 03/02/2021 [employer] Patient Education 2023 [employer]. Follow Up Care 08/09/2024 13:50:24 With:GABBY RAMIREZ, HAMILTON, URL Address: When: Unknown Comments:sched loosening of MUS [facility] 01-03-2025 NotePatient Education Obstetrics and Gynecology Urethral [...] including vitamins, herbs, eye drops, creams, and oeek-enb-jidaman medicines. ??? Any problems you or family [...] tells you to take them. ??? Taking tdll-rya-igehfew medicines, vitamins, herbs, and supplements. Surgery safety [...] place until your bladder w (more content notincluded)...[facility]12-27-2024 Hospital Discharge instructions Patient Education 08/06/2024 [...] Follow these instructions at home: Medicines Take qghh-wur-palstuo and prescription medicines only as told by [...] provider. Document Revised: 04/18/2021 Document Reviewed: 04/18/2021 [employer] Patient Education 2023 [employer]. Follow Up Care 08/02/2024 14:16:42 With:HAMILTON MALONE MD, URL Address: When: Unknown [facility] 12-27-2024 NotePatient Education Obstetrics and Gynecology Acute [...] these instructions at home: Medicines ??? Take rpxg-rmb-dzqwsyi and prescription medicines only as told by [...] provider. Document Revised: 04/18/2021 Document Reviewed: 04/18/2021 [employer] Patient Education ? 2023 [employer].[facility] 07-30-2024 Hospital Discharge instructions Patient Education [...] Follow these instructions at home: Medicines Take rvir-sgy-kmdibtq and prescription medicines only as told by [...] provider. Document Revised: 04/18/2021 Document Reviewed: 04/18/2021 [employer] Patient Education 2023 [employer]. Follow Up Care 07/27/2024 11:12:51 With:HAMILTON MALONE MD, URL Address: When:Within 4 Week(s) Comments:marc FERGUSON [facility] 12-20-2024 NotePatient Education Obstetrics and Gynecology Acute Urinary [...] these instructions at home: Medicines ??? Take rxav-eit-pqtnfiv and prescription medicines only as told by [...] provider. Document Revised: 04/18/2021 Document Reviewed: 04/18/2021 [employer] Patient Education ? 2023 [employer].[facility] 07-27-2024 Evaluation + Plan noteExtracted from:Title:Discharge NoteAuthor: KARLI RAMIREZ, SolefoDate:07/27/24 Stable Discharge To, Anticipated II - Home [...] MALONE Within 5 to 7 days [address] [place] [address] [phone] Business (1) Additional Instructions: Call for followup appointment SEB BARRY Within 5 to 7 days [address] [place] [address]- Business (1) Additional Instructions: Call for followup appointment Sepsis, Diagnosis, Adult Extracted from:Title:APSO NoteAuthor:KARLI RAMIREZ, SolefoDate:07/26/24 64-year-old female with hist ory of coronary artery disease, MA, sleep apnea, bipolar disorder, recent mid urethral sling implantation presented from an outside hospital with complaints of lower abdominal pain, pelvic pain, swelling and was admitted with acute kidney injury secondary to acute urinary retention, constipation sepsis secondary to suspected Labial cellulitis.. 1. Abdominal pain (R10.9: Unspecified abdominal pain) Secondary to acute urinary retention present on admission. Resolved. Avoid narcotics. Ordered: [facility] Hospital Care/Day Moderate 35 Minutes 71278 2. Acute kidney injury (N17.9: Acute kidney failure, unspecified) Acute kidney injury secondary to ATN from dehydration and urinary retention/obstruction. Resolved. Status post Lyn catheter placement. Treated with IV fluid. Discontinued IV fluid. Ordered: [facility] Hospital Care/Day Moderate 35 Minutes 65554 3. Acute urinary retention (R33.8: Other retention of urine) Secondary to recent surgery. Status post Lyn catheter placement. Ordered: [facility] Hospital Care/Day Moderate 35 Minutes 40960 4. Constipation (K59.00: Constipation, unspecified) Postoperatively. Resolved. Avoid narcotics. Continue on Colace. Ordered: [facility] Care/Day Moderate 35 Minutes 11760 5. Sepsis (A41.9: Sepsis, unspecified organism) Suspected to be present at the outside facility patient had leukocytosis, tachycardia and elevated lactic acid presumed secondary to labial cellulitis. Sepsis resolved. Treating with IV cefepime. Discontinued IV fluid. Ordered: [facility] Care/Day Moderate 35 Minutes 30852 6. Obese (E66.9: Obesity, unspecified) Recommend therapeutic lifestyle modification changes. 7. Cystocele with rectocele (N81.10: Cystocele, unspecified) Status post surgery. Urology consult reviewed by me. I appreciate and agree with recommendations. 8. Gastroesophageal reflux disease (K21.9: Gastro-esophageal reflux disease without esophagitis) Supportive care. 9. Bipolar illness (F31.9: Bipolar disorder, unspecified) Continue on lithium. 10. On deep vein thrombosis (DVT) prophylaxis (Z79.899: Other long term care social worker (current) drug therapy) Lovenox. Disposition: Home soon pending final urology recommendations. I discussed the diagnosis and plan of care with the patient at the bedside. Moderate level of MDM based on addressing above issues. This documentation was transcribed using voice recognition software. Several attempts were made to ensure accuracy. However inadvertent computerized supervisor hand workers errors may be present. Eri Waldrop. Hospitalist. Orders: Sodium Chloride 0.9% intravenous solution 1,000 mL, 1,000 mL, IV, 20 mL/hr, Routine, Start date 07/26/24 7:25:00 EST, 50 hour(s), Total volume (mL): 1,000, 87.8 kg, 2.04, m2 Extracted from:Title:Urinary Retention *Author:Brandon Kulkarni MDDate:07/25/24 Impression and Plan 64 year old female with urinary retention, acute kidney injury, pelvic pain, constipation status post mid urethral sling placement 07/22/2024 Plan: On examination today, patient has lower abdominal and pelvic pain, but no additional signs of infection. No induration, erythema, or edema of the lower abdomen or perineum. Symptoms likely related topostoperative pain and inflammation around the mesh. Continue [...] scheduled Tylenol. Continue Colace for constipation. Extracted from:Title:Admission H & PAuthor:Aditya MARIA DO RDate:07/25/24 1. Sepsis (A41.9: Sepsis, un specified organism) Leukocytosis, tachycardia, lactic acidosis. Concern for possible cellulitis at the vaginal introitus given induration and mild erythema and significant pain. Will empirically broaden antibiotic to cefepime 2 g IV every 24 hours (renally dosed). Blood cultures were obtained at [facility] prior to initiation of Cipro [...] deep vein thrombosis (DVT) prophylaxis (Z79.899: Other long term care social worker (current) drug therapy) SCD, enoxaparin Orders: acetaminophen, [...] q6hr PRN Nausea, Routine, Start date 07/25/24 3:54:00EST, 07/25/24 3:54:00 EST oxcarbazepine, 300 mg = [...] Metabolic Panel Consult to Urology Lactic Acid [place] Lev Notify Provider Vital Signs Notify Provider Vital Signs Regular Diet Resuscitation Status - Full UA with Cult Rflx Vital Signs Weight Anticipated stay greater than 2 midnights due to above Addendum by Otto Ramos DO on July 25, 2024 10:49:24 [...] her creatinine is 1.8. Patient has a historyof bipolar disorder, anxiety, hypertension, GERD, hyperlipidemia, coronary artery disease with a history of MA, sleep apnea and radiculopathy. A/P: 1. Sepsis - Secondary to abdominal pain with recent surgery and acute kidney injury - Follow-up cultures obtained at [facility] - Continue IV cefepime; she can received Cipro and clindamycin at [facility] - She did get adequate fluid resuscitation in the outlying emergency room - She is currently on normal saline 150 mL an hour 2. Abdominal pain - Morphine as needed; I did add Percocet per her request - Urology consulted 3. Acute kidney injury - After fluid resuscitation, her creatinine went from 4.0 at [facility] to 1.8 - Check lab in a.m. 4. Bipolar disorder - We did add back her lithium plus her oxcarbazepine and venlafaxine DVT prophylaxis with SCDs and subcu enoxaparin Ulcer prophylaxis with p.o. PPI Nursing is also asking something for anxiety is very anxious on occasion - po ativan added as needed Future Appointments Appointment Date:07/30/2024 02:30:00 PM Scheduled Provider:HAMILTON MALONE MD Location:[facility] SERENA Albarado Appointment Type:URO Office Visit [facility] 12-17-2024 NoteDischarge Summary Admission and [...] female with history of coronary artery disease, MA, sleep apnea, bipolar disorder, rectocele/cystocele - recent mid urethral sling implantation presented from an outside hospital with complaints of lower abdominal pain, pelvic pain and swelling. She was subsequently admitted to [facility] with acute kidney injury secondary to [...] MALONE Within 5 to 7 days [address] [place] [address] [phone] Business (1) Additional Instructions: Call for followup appointment SEB BARRY Within 5 to 7 days [address] [place] [address]- Business (1) Additional Instructions: Call for followup appointment Patient Education Sepsis, Diagnosis, AdultFisher R Adams Cowley Shock Trauma CenterComment on above:Result Comment: Electronically Signed By: KARLI RAMIREZ, Sole\.br\Date and Time Signed: 07/27/24 08:46 [id number] NoteProgress Note-Nurse did a void trial, failed after two outputs. First bladder scan 480, second 841. Called Dr Dorantes, placed Lyn catheter for retention; well tolerated by patient. Great output; see documentation. InformDr Dr Jose E benedict ok with d/c with Lyn catheter to home when medically stable.[facility]12-16-2024 Hospital Discharge instructions Patient Education 07/26/2024 [...] Follow these instructions at home: Medicines Take hems-axa-tglydje and prescription medicines only as told by [...] provider. Document Revised: 06/30/2023 Document Reviewed: 06/30/2023 [employer] Patient Education 2023 [employer]. Follow Up Care 07/25/2024 00:44:54 With:HAMILTON MALONE Address: [address] [place] [phone] Business (1) When:5 to 7 days Comments:Call for followup appointment With:SEB BARRY Address: [address] [place] [phone] Business (1) When:5 to 7 days Comments:Call for followup appointment [facility] [phone] NoteProgress Note-Nurse Patient voided but forgot to place call light on; will do bladder scan again. Instructed again to place light on TYE to preform. Was on phone with girlfriend; forgot. No complaints at this time. Voided 100ml with one small red clotFisher [facility] NoteProgress Note-Physician Assessment/Plan 64-year-old female with history of coronary artery disease, MA, sleep apnea, bipolar disorder, recent mid urethral sling implantation presented from an outside hospital with complaints of lower abdominal pain, pelvic pain, swelling and was admitted with acute kidney injury secondary to acute urinary retention, constipation sepsis secondary to suspected Labial cellulitis.. 1. Abdominal pain (R10.9: Unspecified abdominal pain) Secondary to acute urinary retention???present on admission. Resolved. Avoid narcotics. Ordered: [facility] Hospital Care/Day Moderate 35 Minutes 19716 2. Acute kidney injury (N17.9: Acute kidney failure, unspecified) Acute kidney injury???secondary to ATN from dehydration and urinary retention/obstruction. Resolved. Status post Lyn catheter placement. Treated with IV fluid. Discontinued IV fluid. Ordered: [facility] Hospital Care/Day Moderate 35 Minutes 31648 3. Acute urinary retention (R33.8: Other retention of urine) Secondary to recent surgery. Status post Lyn catheter placement. Ordered: [facility] Hospital Care/Day Moderate 35 Minutes 87354 4. Constipation (K59.00: Constipation, unspecified) Postoperatively. Resolved. Avoid narcotics. Continue on Colace. Ordered: [facility] Hospital Care/Day Moderate 35 Minutes [id number] 5. Sepsis (A41.9: Sepsis, unspecified organism) Suspected to be present at the outside facility???patient had leukocytosis, tachycardia and elevated lactic acid???presumed secondary to labial cellulitis. Sepsis resolved. Treating with IV cefepime. Discontinued IV fluid. Ordered: [facility] Hospital Care/Day Moderate 35 Minutes [id number] 6. Obese (E66.9: Obesity, unspecified) Recommend therapeutic lifestyle modification changes. 7. Cystocele with rectocele (N81.10: Cystocele, unspecified) Status post surgery. Urology consult reviewed by me. I appreciate and agree with recommendations. 8. Gastroesophageal reflux disease (K21.9: Gastro-esophageal reflux disease without esophagitis) Supportive care. 9. Bipolar illness (F31.9: Bipolar disorder, unspecified) Continue on lithium. 10. On deep vein thrombosis (DVT) prophylaxis (Z79.899: Other long term care social worker (current) drug therapy) Lovenox. Disposition: Home soon pending final urology recommendations. I discussed the diagnosis and plan of care with the patient at the bedside. Moderate level of MDM based on addressing above issues. This documentation was transcribed using voice recognition software. Several attempts were made to ensure accuracy. However inadvertent computerized supervisor hand workers errors may be present. Eri Waldrop. Hospitalist. [...] E12/L Low (07/26/24 06 (more content not included)...[facility]:Result Comment: Electronically Signed By: KARLI RAMIREZ, Eri\.br\Date and Time Signed: 07/26/24 09:36 [id number] NoteProgress Note-Physician Patient: RAIN SWEENEY Age: 64 years Sex: Female : 1960 Associated Diagnoses: None Author: MD Favian, Song Macias Postoperative Information Postoperative disposition: Postoperative disposition: To PACU. Optimetrix number: Optimetrix number [id number]. Anesthetic utilized: General. Health Status Allergies: Allergic [...] Discharge when meets criteria ( To home ).[facility]:Result Comment: Electronically Signed By: [...] for 5 day(s), 10 tab(s), Refill(s) 0, [facility]/pharmacy #[id number], 174, cm, 07/06/24 9:03:00 EST, Height/Length Dosing, 81.8, kg, 07/06/24 9:03:00 EST, Weight Dosing Colace 50 mg oral capsule: 50 mg = 1 cap(s), Oral, BID, PRN for constipation, # 60 cap(s), Refills(s) 0, Pharmacy: [facility]/pharmacy #[id number], 174, cm, 07/06/24 9:03:00 EST, Height/Length Dosing, 81.8, kg, 07/06/24 9:03:00 EST, Weight Dosing Roxicodone 5 mg Tab: 5 mg = 1 tab(s), Oral, q6hr, PRN for pain, # 5 tab(s), Refills(s) 0, Pharmacy:[facility]/pharmacy #[id number], 174, cm, 07/06/24 9:03:00 EST, Height/Length [...] All Problems Chronic pain / SNOMED CT 168310897 / Confirmed Essential hypertension / SNOMED CT 46719503 / Confirmed Chronic depression / SNOMED CT 365066670 / Confirmed Anxiety / SNOMED CT 93790963 / Confirmed Scoliosis of lumbosacral spine / SNOMED CT 091406272 / Confirmed Hypercholesterolemia / SNOMED CT 98386086 / Confirmed Heart disease / SNOMED CT 77956939 / Confirmed Acne / SNOMED CT 77768934 / Confirmed Overweight / SNOMED CT 544439221 / Confirmed Lesion of right nipple / SNOMED CT 1007047399 / Confirmed BMI 28.0-28.9,adult / SNOMED CT 7604212276 / Confirmed Sleep apnea / SNOMED CT 370182018 / Confirmed Myocardial infarction / SNOMED CT 89105017 / (more content not included)... [facility]:Result Comment: Electronically Signed By: MD Favian, Song Macias\.br\Date and Time Signed: 07/25/24 16:11 EST 07-25-2024 NoteConsultation Note Patient: RAIN SWEENEY Age: 64 years Sex: Female : 1960 Associated Diagnoses: None Author: Shad RAMIREZ, Brandon Silva Chief Complaint Pelvic pain History of Present Illness 64-year-old female status-post retropubic mid urethral sling implantation 07/22/[address] Cha MD. Patient presented to [facility] emergency department 07/23/2024 and wasstraight catheterized and discharged home. She then returned to [facility] emergency department last night with urinary retention and severe pelvic discomfort. She was found to have acute kidney injury. A Lyn catheter was placed for 800 mL and she was then transferred to [facility] for continued care. Patient reports [...] for 5 day(s), 10 tab(s), Refill(s) 0, [facility]/pharmacy #[id number], 174, cm, 07/06/24 9:03:00 EST, Height/Length Dosing, 81.8, kg, 07/06/24 9:03:00 EST, Weight Dosing Colace 50 mg oral capsule: 50 mg = 1 cap(s), Oral, BID, PRN for constipation, # 60 cap(s), Refills(s) 0, [id number], cm, 07/06/24 9:03:00 EST, Height/Length Dosing, 81.8, kg, 07/06/24 9:03:00 EST, Weight Dosing Roxicodone 5 mg Tab: 5 mg = 1 tab(s), Oral, q6hr, PRN for pain, # 5 tab(s), Refills(s) 0, Pharmacy:[facility]/pharmacy #[id number], 174, cm, 07/06/24 9:03:00 EST, Height/Length Dosing, 81.8, kg, 07/06/24 9:03:00EST, Weight Dosing Documented Medications Documented lithium 300 mg oral tablet: 300 mg = 1 tab(s), Oral, Bedtime, Refills(s) 0 omeprazole 20 mg Cap-DR: 20 mg = 1 cap(s), Oral, Daily, Refills(s) 0 oxcarbazepine 300 mg Tab: 300 mg = 1 tab(s), Oral, BID, Take on (more content not included)...[facility]:Result Comment: Electronically Signed By: Shad RAMIREZ, Brandon Darnell.br\Date and Time Signed: 07/25/24 12:33 [id number] NoteHistory and Physical Basic Information Admit Date/Time:07/25/2024 00:42 History of Present Illness Patient is a 64-year-old female with past medical history as noted below comes in with above-statedchief complaint. On 07/22/2024 patient had elective urethral sling, rectocele[facility] by HAMILTON MALONE MD. Patient states that on 07/23/2024 she had acute urinary retention at home and went to the [facility] emergency department and was straight [...] acute kidney injury. Patient was [facility] because of her recent surgical procedure. [...] psychiatric thoughts. Brief Hospital course emergency department [facility]???see outside hospital record for fulldetails Patient was given 30 mL/kg of normal saline per sepsis protocol Patient treated with IV Cipro and clindamycin [facility] emergency department labs 07/24/2024 WBC [...] (renally dosed). Blood cultures were obtained at [facility] prior to initiation of Cipro [...] (K21.9: Gastro-esophageal reflux disease witho (more content notincluded)...[facility]: Result Comment: Electronically Signed By: Otto Ramos DO.br\Date and Time Signed: 07/25/24 10:58 [id number] NoteHistory and Physical Basic Information Admit Date/Time:07/25/2024 00:42 History of Present Illness Patient is a 64-year-old female with past medical history as noted below comes in with above-statedchief complaint. On 07/22/2024 patient had elective urethral sling, rectocele, and cystocele repairdone at [facility] by HAMILTON MALONE MD. Patient states that on 07/23/2024 she had acute urinary retention at home and went to the [facility] emergency department and was straight [...] acute kidney injury. Patient was [facility] because of her recent surgical procedure. [...] psychiatric thoughts. Brief Hospital course emergency department [facility]???see outside hospital record for fulldetails Patient was given 30 mL/kg of normal saline per sepsis protocol Patient treated with IV Cipro and clindamycin [facility] emergency department labs 07/24/2024 WBC [...] (renally dosed). Blood cultures were obtained at [facility] prior to initiation of Cipro [...] (K21.9: Gastro-esophageal reflux disease witho (more content notincluded)...[facility]: Result Comment: Electronically Signed By: Aditya MARIA DO\.br\Date and Time Signed: 07/25/24 04:51 [id number] Hospital Discharge instructions Patient Education 07/22/2024 12:08:32 Lyn Catheter Care, Female-[facility](CUSTOM) Lyn Catheter Care, Female A Lyn catheter [...] cotton underwear to absorb moisture and keep veneer drier. 6. Keep the drainage bag below the [...] 07/22/2024 09:45:15 Jose E ARAUZ Discharge Instructions(CUSTOM) [place], [place] Ambrose Dorantes M.D. TVT DISCHARGE INSTRUCTIONS [...] have given you. Surgeon s Phone number: [phone] Surgeon s Written Instructions: 1.During the daytime [...] Up Care 07/05/2024 10:24:00 With:HAMILTON MALONE Address: [address] [place] [phone] Business (1) When: Unknown Comments:2 weeks [facility] 12-12-2024 NotePatient Education - Text [...] cotton underwear to absorb moisture and keep veneer drier. 6. Keep the drainage bag below the [...] up appointments and call with any concerns. [place], [place] Ambrose Dorantes M.D. TVT DISCHARGE INSTRUCTIONS The following instructions must be followed very closely: 1. If (more content not included)...[facility] Hospital Discharge instructions Patient Education 07/05/2024 [...] including vitamins, herbs, eye drops, creams, and bsyl-ymm-zhnbagr medicines. Any problems you or family members [...] provider tells you to take them. Taking mluo-npn-qknsmts medicines, vitamins, herbs, and supplements. Surgery safety [...] provider. Document Revised: 03/02/2021 Document Reviewed: 03/02/2021 [employer] Patient Education 2023 [employer]. Follow Up Care 06/24/2024 14:41:56 With:GABBY RAMIREZ, HAMILTON, JAYY Address: When: Unknown [facility] 11-25-2024 NotePatient Education Obstetrics and Gynecology [...] including vitamins, herbs, eye drops, creams, and upsm-jvv-bxojktm medicines. ??? Any problems you or family [...] tells you to take them. ??? Taking weqy-tiq-ylylusp medicines, vitamins, herbs, and supplements. Surgery safety [...] place until your bladder w (more content notincluded)...[facility] Note Progress Note-Physician Patient: RAIN SWEENEY Age: 63 years Sex: Female : 1960 Associated Diagnoses: None Author: Valdo Aguilar MD Postoperative Information Postoperative disposition: Postoperative disposition: To PACU. Optimetrix number: Optimetrix number [id number]. Anesthetic utilized: General. Health Status Allergies: Allergic [...] Discharge when meets criteria ( To home ).[facility] on [facility]:Result Comment: Electronically Signed By: Valdo Aguilar MD\.br\Date and Time Signed: 06/24/24 16:53 EST 06-24-2024 Evaluation + Plan noteExtracted from:Title:ANES Post-operative Note---GeneralAuthor:Valdo Aguilar MDDate:06/24/24 Plan Transfer/Discharge: Transfer/Discharge Discharge when meets criteria ( To home ). Extracted from:Title:ANES Pre-operative Note uthor:Valdo Aguilar MDDate: 06/24/24 Plan [place] [employer] Anesthesiologists (ASA) physical status classification: Class III. Anesthetic Preoperative Plan: Anesthesia General, and TIVA. Future Appointments Appointment Date:07/05/2024 10:00:00 AM Scheduled Provider:HAMILTON MALONE MD Location:[facility] Appointment Type:URO Office Visit [facility] 11-14-2024 Hospital Discharge instructions Patient [...] (CUSTOM) Follow Up Care 06/11/2024 10:28:58 With:HAMILTON SIMIEMI Address: [address] [place] [phone] Business (1) When: Unknown Comments:in 2 weeks [facility] 11-14-2024 NotePatient Education - Text Cystoscopy ??? [...] you have a fever over 100 degrees. [facility] Note Progress Note-Physician Patient: RAIN SWEENEY [...] day(s), # 9 tab(s), Refills(s) 0, Pharmacy: [facility]/pharmacy #[id number], 174, cm, 06/18/24 15:46:00 EST, Height/Length Dosing, [...] list: All Problems Acne / SNOMED CT 19358246 / Confirmed Anxiety / SNOMED CT 71724252 / Confirmed Atrophic vaginitis / SNOMED CT 87158799 / Confirmed Bladder neoplasm of uncertain malignant potential / SNOMED CT 9087606630 / Confirmed BMI 28.0-28.9,adult / SNOMED CT 0656698695 / Confirmed Chronic depression / SNOMED CT 098865217 / Confirmed Chronic pain / SNOMED CT 834803206 / Confirmed Cystocele with rectocele / SNOMED CT 936752964 / Confirmed Essential hypertension / SNOMED CT 16653405 / Confirmed Gastroesophageal reflux disease / SNOMED CT 538827269 / Confirmed Heart disease / SNOMED CT 33792314 / Confirmed Hypercholesterolemia / SNOMED CT 08738610 / Confirmed Lesion of right nipple / SNOMED CT 0582595991 / Confirmed Lumbar radiculopathy / SNOMED CT 849088653 / Confirmed Migraine / SNOMED CT 90022985 / Confirmed Myocardial infarction / SNOMED CT 05340031 / Confirmed Outside Source Comment: Comment on above: 2003 Overweight / SNOMED CT 707721980 / Confirmed Scoliosis of lumbosacral spine / SNOMED CT 671943775 / Confirmed Sleep apnea / SNOMED CT 458396467 / Confirmed Stress incontinence / SNOMED CT 919435875 / Confirmed Urethral caruncle / SNOMED CT 27801676 / Confirmed Resolved: Bipolar disorder / SNOMED CT 96310468 Canceled: Tobacco user / SNOMED CT 411869672, Active Problems (21) Acne Anxiety Atrophic vaginitis Bladder neoplasm of uncertain malignant potential BMI 28.0-28.9,adult Chronic depression Chronic pain Cystocele with rectocele Esse (more content not included)...[facility]: Result Comment: Electronically Signed By: Jeff RAMIREZ, Valdo Haq\.br\Date and Time Signed: 06/24/24 08:32 [id number] Hospital Discharge instructions Patient Education 06/11/2024 10:04:23 [...] including vitamins, herbs, eye drops, creams, and knfh-ikk-esqhbqj medicines. Any problems you or family members [...] provider tells you to take them. Taking mfcx-vna-rpicdmn medicines, vitamins, herbs, and supplements. General instructions [...] provider. Document Revised: 03/02/2021 Document Reviewed: 03/02/2021 [employer] Patient Education 2023 [employer]. 06/11/2024 09:47:28 Kegel Exercises Kegel Exercises Kegel [...] provider. Document Revised: 12/06/2021 Document Reviewed: 12/06/2021 [employer] Patient Education 2023 [employer]. Follow Up Care 05/31/2024 11:14:44 With:GABBY RAMIREZ, HAMILTON, JAYY Address: When: Unknown [facility] 11-01-2024 NotePatient Education Obstetrics and Gynecology Kegel [...] provider. Document Revised: 12/06/2021 Document Reviewed: 12/06/2021 [employer] Patient Education ? 2023 [employer]. Urology Injection Treatments for Urinary Incontinence Urinary [...] including vitamins, herbs, eye drops, creams, and hnkq-piz-uyasdmu medicines. ??? Any problems you or family [...] foods, such as toast or (more contentnot included)...[facility] Evaluation note* Diagnosis Onset Date Resolution Status Admit Date UTI (urinary tract infection) acuteOctober 2023 11:12amPreoperative examinationacuteNovember 2023 9:50am [facility] Work Phone: 1(939) 115-487410-18-2024 NotePatient Education Obstetrics and Gynecology Kegel Exercises [...] provider. Document Revised: 12/06/2021 Document Reviewed: 12/06/2021 [employer] Patient Education ? 2023 [employer]. Urethral Vaginal Sling A urethral vaginal sling [...] including vitamins, herbs, eye drops, creams, and rqgm-iqa-qhtbbqw medicines. ? Any problems you or family [...] medicines or blood thinners. (more content not included)...[facility] Hospital Discharge instructions Patient Education 05/25/2024 [...] including vitamins, herbs, eye drops, creams, and ddif-xdr-yhqyypi medicines. Any problems you or family members [...] provider tells you to take them. Taking vbef-hvm-mswnrzp medicines, vitamins, herbs, and supplements. Surgery safety [...] provider. Document Revised: 03/02/2021 Document Reviewed: 03/02/2021 [employer] Patient Education 2023 [employer]. [facility] 10-09-2024 Evaluation note* Diagnosis Onset Date Resolution Status Admit Date UTI (urinary tract infection) acuteOctober 2023 10:09amDysurianoneactiveOctober 2023 10:09amUTI (urinary tract infection)acuteOctober 2023 11:12am [facility] Work Phone: 1(657) 323-915209-11-2024 History of Present illness Narrative* MICHEAL Cifuentes [...] nursing note reviewed. Exam conducted with a coding analyst present. Vitals: Estimated body mass index is [...] behalf of: MICHEAL Cifuentes documented in this encounterChildren's Mercy [id number] NoteChief Complaint consultation for abnormal breast US [...] 12/09/2020 Recorded SARS-CoV-2 (COVID-19) mRNA-1273 vaccine 11/11/2020 RecordedVan [facility] HospitalComment on above:Result Comment: Electronically Signed By: BERONICA RAMIREZ, Dieter Bryson\Date and Time Signed: 11/19/23 14:27 [id number] Evaluation note * Encounter Date Diagnosis Assessment Notes Treatment Notes Treatment Clinical Notes May, Adolescent idiopathi c scoliosis of lumbosacral spine (ICD-10 - M41.127) [...] may be able to offer some advice. [employer] Other 09-25-2023 Evaluation note* Encounter Date Diagnosis Assessment Notes Treatment Notes Treatment Clinical Notes Apr, Right lumbar radiculopathy (ICD- 10 - M54.16) Presently in PT - discharged on 05/02. Requests MRI and referral. [facility] Other 08-22-2023 Evaluation note* Encounter Date Diagnosis Assessment Notes Treatment Notes Treatment Clinical Notes Mar, Right hip pain (ICD-10 - M25.551 ) PT paper given to pt. Handout for home stretches given as well. Tramadol to help her sleep. She understands it is a controlled substance and could be sedating. [facility] Other 05-15-2023 Evaluation note* Encounter Date Diagnosis [...] follow up with the patient in six weeks,sooner if needed. Anatomy of spine discussed in detail with patient in regards to patients condition. December,Other low back pain (ICD-10 - M54.59) December,Other chronic pain (ICD-10 - G89.29) December,OtherAbove note written by Morris Flor MA, Operations Support Representative. Edited and approved by Dr. Goldy Glover MD.Medical decision making shows a new problem to me with further workup planned or suggested with thepotential for extensive treatment options that were considered with the most applicable given this patient's situation as noted above. Treatment options considered include a combination of physical therapy approaches, pharmacologic management, and interventional procedures. Those most applicable tothe patient were discussed at this time. Risk [...] negative findings were considered in medical decision-making. [facility] Other 04-28-2023 Evaluation note* Encounter Date Diagnosis Assessment Notes Treatment Notes Treatment Clinical Notes Nov, Lumbar pain (ICD-10 - M54.50) [facility] Other 07-20-2022 Evaluation note* Encounter Date Diagnosis Assessment Notes Treatment Notes Treatment Clinical Notes Feb, Bipolar 1 disorder, depressed (I CD-10 - F31.9) [facility] Other 05-05-2022 Evaluation note* Encounter Date Diagnosis Assessment Notes Treatment Notes Treatment Clinical Notes December, Bipolar 1 disorder, depressed (I CD-10 - F31.9) [facility] Other Evaluation + Plan note No data available for this section General Surgery [facility] Evaluation + Plan note Future Appointments Appointment Date:06/18/2024 03:30:00 PM Scheduled Provider: Location:[facility] Appointment Type:Surgical PAT FT Appointment Date:06/24/2024 09:00:00 AM Scheduled Provider: Location:[facility] Appointment Type:Surgery FT [facility] Evaluation + Plan note Future Appointments Appointment Date:06/24/2024 09:00:00 AM Scheduled Provider: Location:[facility] Appointment Type:Surgery FT [facility] evaluation + Plan note Future Appointments Appointment Date:07/06/2024 10:00:00 AM Scheduled Provider: Location:[facility] Appointment Type:Surgical PAT FT Appointment Date:07/22/2024 08:00:00 AM Scheduled Provider: Location:[facility] Appointment Type:Surgery FT [facility] Evaluation + Plan note Future Appointments Appointment Date:07/22/2024 08:00:00 AM Scheduled Provider: Location:[facility] Appointment Type:Surgery FT [facility] evaluation + Plan note Future Appointments Appointment Date:07/23/2024 10:30:00 AM Scheduled Provider: Location:[facility] Appointment Type:URO Nurse Visit [facility] evaluation + Plan note Future Appointments Appointment Date:08/26/2024 08:00:00 AM Scheduled Provider:HAMILTON MALONE MD Location:[facility] Appointment Type:URO Office Visit [facility] evaluation noteNo InformationNort [place] Other evaluation noteNo assessment information available [facility] Work Phone: evaluation note* Diagnosis Onset Date Resolution Status Acne acuteBreast mass, rightacuteWellness examinationacuteAbnormal ultrasound of breastacute [facility] Work Phone: Evaluation note* Diagnosis Onset Date Resolution Status Abnormal ultrasound of breast acute [facility] Work Phone: Evaluation note* Diagnosis Onset Date Resolution Status UTI (urinary tract infection) acuteDysurianoneactive [facility] Work Phone: Evaluation note* Diagnosis Onset Date Resolution Status UTI (urinary tract infection) acuteDysurianoneactiveUTI (urinary tract infection)acute [facility] Work Phone: Evaluation note* Diagnosis Exposure [...] Nontoxic uninodular goiter documented in this encounter [facility] HealthcareHistory general Narrative - Reported* Type Description Date Medical History bipolar disorder Medical Historyanxiety disorderMedical Historyhigh blood pressureSurgical History2 boul [id number] [id number] Historysinus [id number] HistorySee surgical hxHospitalization Historychild Degree Controls Other Hisktff general Narrative - Reported* Type Description Date Medical History bipolar disorder Medical Historyanxiety disorderMedical Historyhigh blood pressureMedical History FatigueMedical HistoryHigh risk medication useSurgical History2 boul ligation 2000Surgical [id number] Historysinus [id number] HistoryLUBAL LIGATIONHospitalization HistorySee surgical hxHospitalization Historychild Degree Controls Other History general Narrative - Reported* Type Description Date Medical History bipolar disorder Medical Historyanxiety disorderMedical Historyhigh blood pressureMedical History FatigueMedical HistoryHigh risk medication useMedical Historyheart disease Medical Historyhigh cholesterolMedical Historychronic depressionMedical History obesitySurgical History2 boul [id number] [id number] Surgical Historysinus [id number] HistoryLUBAL LIGATIONHospitalization HistorySee surgical hxHospitalization Historychild Degree Controls Other Hospital Discharge instructionsAmbulatory Orders* Referral to General Surgery Time Frame: 11/12/23, Location: [facility] Work Phone: Hospital Discharge instructions No data available for this section General Surgery [facility] Discharge instructions Additional Instructions Diet You [...] the pain is mild, you may take rcxv-fzt-aybgynn Tylenol (acetaminophen). Avoid Non-Steroidal Anti-Inflammatories (NSAIDs) such as Aspirin, Ibuprofen, Naproxen, Advil, Aleve, and Motrin, for 72 hours after surgery because they may cause prolonged bleeding. Call your doctor if you develop a rash or other drug reaction. If difficulty with breathing occurs, go directly to the ER. [facility] Work Phone: Progress note No data available for this section General Surgery [facility] Reason for referral (narrative)No reason for referral information available[facility] Work Phone: Reason for Referral Reason piriformis pain Diagnosis 1 Adolescent idiopathi c scoliosis of lumbosacral spine (M41.127) Referral Organization [facility] urosurgery Referring Provider First Name Helio Referring Provider Last Name Asha Referring Provider Specialty Neurologica l Surgery Referred Organization [facility] Ortho pedics Referred Provider Danny Solares Referred Address [address] [facility] Deepak COK[address] [facility],[place],[address] Referred Provider Specialty Orthopaedic Surgery Referral Priority Routine Reason Requests Dr. Helio qureshi - MRI pending. Went to [facility] and had xrays on 05/05. Diagnosis 1 Right lumbar radicul opathy (M54.16) Referral Organization [facility] [employer] [facility] lauren Referring Provider First Name Seb Referring Provider Last Name Asha Referring Provider Specialty Family Medi cine Referred Organization [facility] Neurosurgery [facility] Referred Address [address] [place], [place],[address] Referred Provider Specialty Neurological Surgery Referral Priority Routine Reason No preference on off ice - Lumbar pain - recent OV and xray - thanks Diagnosis 1 Lumbar pain (M54.50) Referral Organization [facility] lauren Referring Provider First Name Seb Referring Provider Last Name Asha Referring Provider Specialty Family Medi cine Referred Organization Unknown Facility Referred Provider Specialty Pain Medicin e Referral Priority Routine Summary Purpose Family History No Family History Records Found Relationship Condition Age at Onset Recorded Date/T patricia daughter Bipolar disorder Unknown Malignant neoplasmUnknownfatherBipolar disorderUnknownDeceasedUnknownNot SpecifiedDeceasedUnknown Relationship Condition Age at Onset Recorded Date/T patricia daughter Bipolar disorder Unknown Malignant neoplasmUnknownfatherBipolar disorderUnknownDeceasedUnknownmother DeceasedUnknown Relationship Condition Age at Onset Recorded Date/T patricia daughter Bipolar disorder Unknown fatherBipolar disorderUnknownDeceasedUnknownmotherDeceasedUnknown Advance Directives No Advanced Directives Records Found Advance Directive Response Recorded Date/ Time Advance Directives No May 29, 2023 12:42pm Advance Directive Response Recorded Date/ Time Advance Directives No May 29, 2023 11:42am Chief Complaint and Reason for Visit Chief Complaint m54.50 Chief Complaint Wellness review ultrasoundReason for VisitAcne Breast mass, right Wellness examination Abnormal ultrasound of breast Chief Complaint Wellness review ultrasound UnknownReason for VisitAcne Breast mass, right Wellness examination Abnormal ultrasound of breast Chief Complaint review ultrasound Unknown blood work, leaking urine, med refillReason for VisitAbnormal ultrasound of breast Chief Complaint Possible UTIReason for VisitUTI (urinary tract infection) Dysuria Chief Complaint Possible UTI DysuriaReason for VisitUTI (urinary tract infection) Dysuria Chief Complaint Possible UTI Dysuria UA, blood urine, fullnessReason for VisitUTI (urinary tract infection) Dysuria UTI (urinary tract infection) Chief Complaint [...] 9:51 am Screening mammogram for breast cancer Ju ma 2024 9:51am Additional Source Comments REASON FOR VISIT (unrecogniz ed section and content) ReasonCommentsvaginal issuesReasonCommentsThyroid ProblemNEW REF/LABSpecialty Diagnoses / ProceduresReferred By ContactReferred To ContactEndocrinology Diagnoses Other specified abnormal findings of blood chemistry Procedures [place] OFFICE/OUTPATIENT [facility] MDM 30 MINUTES Seb Barry MD [address] [place] [address] Phone: tel: fax: Song Covarrubias MD [address] [place] [address] Phone: tel: fax: Referral IDStatusReasonStart DateExpiration DateVisits RequestedVisits [id number] Problem Follow-upLAB/NM USReasonCommentsThyroid NoduleNew patient : thyroid nodule / hyperthyroidSpecialtyDiagnoses / ProceduresReferred By ContactReferred To ContactOtolaryngology Diagnoses Multinodular goiter Procedures [place] OFFICE/OUTPATIENT [facility] 60 MINUTES Song Covarrubias MD [address] [place] [address] Phone: tel: fax: cSooby Fitzgerald W, DO [address] [facility] [place] [address] Phone: tel: fax: Referral IDStatusReasonStart DateExpiration DateVisits RequestedVisits [id number] Specialty Services Required [id number] NoduleFNA LeftReasonCommentsThyroid NoduleFNA results INFORMATION SOURCE (unrecogn ized section and content) DATE CREATED AUTHOR 12/25/[address] [facility] DATE CREATED AUTHOR AUTHOR'S ORGANIZ ATION 06/20/2024 [facility] DATE CREATED AUTHOR AUTHOR'S ORGANIZ ATION 07/04/2024 [facility] DATE CREATED AUTHOR AUTHOR'S ORGANIZ ATION 07/06/2024 [facility] DATE CREATED AUTHOR AUTHOR'S ORGANIZ ATION 07/27/2024 [facility] DATE CREATED AUTHOR AUTHOR'S ORGANIZ ATION 10/25/2024 [facility] DATE CREATED AUTHOR AUTHOR'S ORGANIZ ATION 03/09/2025 [facility] DATE CREATED AUTHOR AUTHOR'S ORGANIZ ATION 03/11/2025 [facility] DATE CREATED AUTHOR AUTHOR'S ORGANIZ ATION 06/10/2025 [facility] Care Teams (unrecognized sec tion and content) Team Status: Active Member Role Status Dates Seb Barry MD Primary Care Provider Active Team Status: Active Member Role Status Dates Seb Barry MD Primary Care Provider Active Start: April 09, 2024 Tata Hyltonending ProviderActiveStart: April 09, 2024 Team Status: Active Member Role Status Dates Seb Barry MD Primary Care Provider Active Start: April 21, 2024 Echo Cifuentes ProviderActiveStart: April 21, 2024 Team Status: Active Member Role Status Dates PHYSICIAN NO FAMILY Primary Care Provider Active Start: May 04, 2024 Pan Sanders , RYANttending ProviderActiveStart: May 04, 2024 Team Status: Active Member Role Status Dates Seb Barry MD Primary Care Provider Active Start: May 04, 2024 Echo Cfiuentes ProviderActiveStart: May 04, 2024 Team Status: Inactive Member Role Status Dates Seb Barry MD Primary Care Provider Active Start: May 19, 2024 End: May 19manda M Liz , APRNAttending ProviderActiveStart: May 19, 2024 End: May 19, 2024 Team Status: Inactive Member Role Status Dates Seb Barry MD Primary Care Provide r, Attending Provider Active Start: October 22, 2023 End: October 22, 2023 Team Status: Active Member Role Status Dates PHYSICIAN NO FAMILY Primary Care Provider Active Start: November 04, 2023 Pan Sanders MDAttending ProviderActiveStart: November 04, 2023 Team Status: Inactive Member [...] Start: December 31, 2023 End: December 31, 2023Dieter Loco MD FACSAttending ProviderActiveStart: December 31, 2023 End: December 31, 2023 Team Status: Active Member Role Status Dates PHYSICIAN NO FAMILY Primary Care Provider Active Start: September 09, 2023 Pan Sanders MDAttending ProviderActiveStart: September 09, 2023 Team Status: Inactive Member Role Status Dates Helio Barry MD Attending Provider Active Lorri Zamora Care ProviderActive Team Status: Active Member Role Status Dates PHYSICIAN NO FAMILY Primary Care Provider Active Start: December 09, 2023 Pan Sanders MDAttending ProviderActiveStart: December 09, 2023 Team Status: Inactive Member [...] tart: May 19, 2024 End: May 19, 2024NON STAFFPrimary Care ProviderActiveStart: May 19, 2024 End: May 19, 2024 Team Status: Active Member Role Status Dates NON STAFF Primary Care Provider Active Start: May 26, 2024 Regulo Hinds MDAttending ProviderActiveStart: May 26, 2024 Team Status: Inactive Member [...] Care Provider Active Start: June 14, 2024 Tata Bravoending ProviderActiveStart: June 14, 2024 Team Status: Inactive Member Role Status Dates Seb Barry MD Primary Care Provide r, Attending Provider Active Start: June 21, 2024 End: June 21, 2024Team MemberRelationshipSpecialtyStart DateEnd Date Seb Barry MD [address] [place] [facility] [place] [id number] [facility]/23Team MemberRelationshipSpecialtyStart DateEnd Date Seb Barry MD [address] [place] [facility] [id number] PCP - [facility] Medicine04/21/23Team MemberRelationshipSpecialtyStart DateEnd Date Seb Barry MD [address] [place] [facility] [address] [facility]/21/23 Team Status: Active Member Role Status Dates Seb Barry MD Primary Care Provider Active Start: July 24, 2024 Mateo Estrella ProviderActiveStart: July 24, 2024 Team Status: Active Member Role Status Dates Seb Barry MD Primary Care Provider Active Start: July 25, 2024 Beckie Hernandez ProviderActiveStart: July 25, 2024 Team Status: Active Member Role Status Dates Seb Barry MD Primary Care Provider Active Start: July 27, 2024 Catalina Pedraza CMAAttending ProviderActiveStart: July 27, 2024 Team Status: Active Member Role Status Dates PHYSICIAN NO FAMILY Primary Care Provider Active Start: August 10, 2024 Pan Sanders MDAttending ProviderActiveStart: August 10, 2024 Team Status: Inactive Member Role Status Dates Seb Barry MD Primary Care Provider Active Start: August 18, 2024 End: August 18, 2024Hamilton Malone MDAttending ProviderActiveStart: August 18, 2024 End: August 18, 2024Team MemberRelationshipSpecialtyStart DateEnd Date Seb Barry MD [address] [place] [phone] [facility] - [facility]04/21/23Team MemberRelationshipSpecialtyStart DateEnd Date Seb Barry MD [address] [place] [facility] [address] PCP - [facility] Medicine04/21/23 Team Status: Active Member Role Status Dates Seb Barry MD Primary Care Provider Active Start: November 18, 2024 Regulo Hinds MDAttending ProviderActiveStart: November 18, 2024 Team Status: Active Member Role Status Dates PHYSICIAN NO FAMILY Primary Care Provider Active Start: December 15, 2024 Pan Sanders MDAttending ProviderActiveStart: December 15, 2024 Team Status: Active Member Role Status Dates Seb Barry MD Primary Care Provider Active Start: December 16, 2024 Tata Ludwigending ProviderActiveStart: December 16, 2024 Team Status: Inactive Member Role Status Dates Seb Barry MD Primary Care Provider Active Start: January 13, 2025 End: January 13michelle Covarrubias MDAttending ProviderActiveStart: January 13, 2025 End: January 13, 2025Team MemberRelationshipSpecialtyStart DateEnd Date Seb Barry MD [address] [place] [facility] [address] PCP - GeneralFamily Medicine04/21/23Team MemberRelationshipSpecialtyStart DateEnd Date Seb Barry MD [address] [place] [facility] [address] PCP - GeneralFamily Medicine04/21/23Team MemberRelationshipSpecialtyStart DateEnd Date Seb Barry MD [address] [place] [facility] [address] PCP - Generalmi Medicine04/21/23Team MemberRelationshipSpecialtyStart DateEnd Date Melanie Prater MD [address] [address] PCP - General02/17/25Team MemberRelationshipSpecialtyStart DateEnd Date Seb Barry MD [address] [place] [facility] [address] PCP - GeneralFamily Medicine04/21/23Team MemberRelationshipSpecialtyStart DateEnd Date Seb Barry MD [address] [place] [facility] [address] PCP - GeneralFamily Medicine04/21/23 Team Status: Inactive Member Role Status Dates Seb Barry MD Primary Care Provider Active Start: January 21, 2025 End: January 21, 2025Seb Barry MDAttending ProviderActiveStart: January 21, 2025 End: January 21, 2025 Team Status: Inactive Member Role Status Dates Scooby Scottclarita DO Attending Provider Active S tart: February 22, 2025 End: February 22, 2025Team MemberRelationshipSpecialtyStart DateEnd Date Melanie Prater MD [facility] [address] [place] [address] PCP - General02/17/25Team MemberRelationshipSpecialtyStart DateEnd Date Melanie Prater MD [facility] [address] [place] [address] PCP - General02/17/25 Goals (unrecognized section and content) Goals may [...] BE BASED ON THE PRIMARY CLINICAL RECORDS. [facility] [employer] [facility]. provides no warranty or guarantee of the accuracy or completeness of information in this document.
[2025-07-10 12:08] LABS: Age Gdln ACOG Testing Note (.); IGP, Aptima HPV, rfx 16/18,45 Note (.)
== END 2025-07-06 15:57 | disposition home or self-care (01) ==
LOC: LAB 15:56
PROVIDERS: PCP Family Medicine; Visit Provider Physician Assistant
DX: Z01.419 Encounter for gynecological examination (general) (routine) without abnormal findings (principal)
CPT/HCPCS: 87624; 88175